=== PATIENT | female | born 1970 | race Caucasian/White ===

== ENCOUNTER → 2016-06-13 | Outpatient (CLI) | payer OTHER ==
[~2016-06-13] MED LIST: ABL10 PO; ARIP30TA3 PO; ATOR-14 PO; CGN1 PO; CHOL100010 PO; CLON0.5T3 PO; CLOZ100T18 PO; CLOZ25TA2 PO; DESM1TAB16 PO; DIPH25TA24 PO; DPRSCR15 TOP; ESCI1TAB10 PO; EST1 PO; GLC/500 PO; LAMO100T16 PO; LAMO200T38 PO; LEVO125T4 PO; LMC25 PO; LOSA50TA6 PO; LPT10 PO; LTD/40 PO; LURA80TA PO; LXP20 PO; MIRT30TA2 PO; MISCCAP80 PO; MONT1TAB3 PO; MULT-506 PO; PRM625 PO; RMR15 PO; SERT100T PO; SULF-183 PO; THIO5CAP2 PO; [UNRECOGNIZED DRUG - CODE] PO
[2016-06-13 14:40] LABS: COMPLETE YES; IG% 0.2 %; LYMPH % 22.5 %; LYMPH ABS # 2.38 K/uL (1.2-3.4); MEAN CELL VOLUME 78.1 fL (80-100); MEAN CORPUSCULAR HEMOGLOBIN 27.2 pg (25-34); MEAN CORPUSCULAR HGB CONC 34.9 g/dl (32-36); MEAN PLATELET VOLUME 9.3 fL (7.4-10.4); MONO % 6.1 %; NEUT % 71.2 %; PLATELET COUNT 260 K/uL (130-400); RED BLOOD COUNT 4.48 M/uL (4.2-5.4); WHITE BLOOD COUNT 10.58 K/uL (4.8-10.8)
[2016-06-13 17:51] LABS: TOTAL IRON BINDING CAPACITY 294 mcg/dl (250-450)
[2016-06-13 18:03] LABS: ALT/SGPT 20 U/L (12-78); AST/SGOT 9 U/L (15-37); BLOOD UREA NITROGEN 12 mg/dl (7-18); BUN/CREATININE RATIO 24.5 (10-20); CALCIUM 9.1 mg/dl (8.5-10.1); CARBON DIOXIDE 24 mmol/L (21-32); CHLORIDE 102 mmol/L (98-107); CREATININE 0.48 mg/dl (0.60-1.20); GLUCOSE 80 mg/dl (70-99); SODIUM 137 mmol/L (136-145)
[2016-06-13 18:05] LABS: ALB/GLOB RATIO 1.3 (0.9-2); ALKALINE PHOSPHATASE 67 U/L (45-117)
== END | disposition home or self-care (01) ==
LOC: C.LAB1850 13:37
PROVIDERS: ATTEND Nurse Practitioner Family
DX: D50.9 Iron deficiency anemia, unspecified (principal); R11.10 Vomiting, unspecified

== ENCOUNTER → 2016-07-26 | Outpatient (CLI) | payer OTHER ==
--- NOTE | 2016-07-26 13:51 | DIAGNOSTIC IMAGING REPORT ---
CHEST 2 VIEWS ROUTINE CLINICAL HISTORY: IRON DEFICIENCY ANEMIA dyspnea. Weight loss. COMPARISON STUDY: 01/11/2011 FINDINGS: The bones soft tissues and hemidiaphragms are normal. The cardiomediastinal silhouette is normal. The lungs are clear. The pulmonary vasculature is normal. IMPRESSION: Negative chest. Electronically signed by: Arturo Hart M.D. 07/26/2016 1:50 PM Dictated Date/Time: 07/26/2016 1:49 PM
== END | disposition home or self-care (01) ==
LOC: C.RAD1850 13:37
PROVIDERS: ATTEND Internal Medicine Hematology & Oncology
DX: D50.9 Iron deficiency anemia, unspecified (principal); R63.4 Abnormal weight loss

== ENCOUNTER → 2016-08-02 | Outpatient (CLI) | payer OTHER ==
[2016-08-02 16:55] LABS: ALT/SGPT 18 U/L (12-78); AST/SGOT 8 U/L (15-37); BLOOD UREA NITROGEN 13 mg/dl (7-18); BUN/CREATININE RATIO 21.5 (10-20); CALCIUM 8.8 mg/dl (8.5-10.1); CARBON DIOXIDE 28 mmol/L (21-32); CHLORIDE 99 mmol/L (98-107); CREATININE 0.61 mg/dl (0.60-1.20); GLUCOSE 113 mg/dl (70-99); MAGNESIUM 1.9 mg/dl (1.8-2.4); POTASSIUM 3.5 mmol/L (3.5-5.1); SODIUM 136 mmol/L (136-145)
[2016-08-02 17:07] LABS: ALB/GLOB RATIO 1.2 (0.9-2); ALKALINE PHOSPHATASE 74 U/L (45-117)
[2016-08-03 06:20] LABS: ESTIMATED AVERAGE GLUCOSE 100 mg/dl; HA1C FLAG Normal (Normal)
== END | disposition home or self-care (01) ==
LOC: C.LABBC 14:08
PROVIDERS: ATTEND Family Medicine
DX: R63.4 Abnormal weight loss (principal); R25.1 Tremor, unspecified; E11.9 Type 2 diabetes mellitus without complications

== ENCOUNTER → 2016-09-23 | Outpatient (CLI) | payer OTHER ==
[~2016-09-23] MED LIST changes: +BENZ-89 PO; -CGN1 PO; -LEVO125T4 PO; +LEVO125T5 PO
[2016-09-23 12:16] LABS: ESTIMATED AVERAGE GLUCOSE 105 mg/dl; HA1C FLAG Normal (Normal)
[2016-09-23 12:30] LABS: THYROID STIMULATING HORMONE 0.773 uIu/ml (0.300-4.500)
--- NOTE | 2016-10-07 12:28 | CODING QUERY MEDICAL NECESSITY ---
CQSUPPORTING DIAGNOSIS NEEDED A supporting diagnosis is required for the test/procedure performed on this patient in order for us to be reimbursed by the patient's insurance. Please provide a supporting diagnosis for the following test/procedure listed below next to the test name along with your signature. *If there is no additional diagnosis for this patient that would support the following test/procedure please document that below next to the test/procedure. Test(s)/Procedure(s) that require a supporting diagnosis: DOS 09/23/16 GLYCATED HEMOGLOBIN TEST ORDERED BY MINGO ROLAND Provider Signature: Date: Thank you Trisha Pradhan Health Information Management Once completed, please kindly fax back to [phone] For questions please call [phone]
== END | disposition home or self-care (01) ==
LOC: C.LAB1850 10:02
PROVIDERS: ATTEND Physician Assistant
DX: F25.1 Schizoaffective disorder, depressive type (principal); F41.9 Anxiety disorder, unspecified; E03.9 Hypothyroidism, unspecified; E11.9 Type 2 diabetes mellitus without complications

== ENCOUNTER 2016-10-07 16:06 | Inpatient (IN) | payer OTHER ==
[~2016-10-07] VITALS: Ht 162.6 cm; Wt 93.4 kg
[~2016-10-07 16:06] MED LIST changes: -ABL10 PO; -ARIP30TA3 PO; -ESCI1TAB10 PO; -EST1 PO; -LAMO100T16 PO; -LAMO200T38 PO; -LMC25 PO; -LPT10 PO; -LURA80TA PO; -LXP20 PO; -MIRT30TA2 PO; -MISCCAP80 PO; -RMR15 PO; -SULF-183 PO; -[UNRECOGNIZED DRUG - CODE] PO
[2016-10-07] MEDS ORDERED: LPT10 PO (16:36)
[2016-10-07] MEDS ORDERED: EST1 PO (16:36)
[2016-10-07] MEDS ORDERED: LMC25 PO (16:36)
[2016-10-07] MEDS ORDERED: MISCCAP80 PO (16:36)
[2016-10-07] MEDS ORDERED: [UNRECOGNIZED DRUG - CODE] PO (16:36)
[2016-10-07 17:42] LABS: COMPLETE YES; HEMATOCRIT 38.6 % (37-47); IG% 0.1 %; LYMPH % 29.7 %; LYMPH ABS # 3.42 K/uL (1.2-3.4); MEAN CELL VOLUME 79.1 fL (80-100); MEAN CORPUSCULAR HEMOGLOBIN 27.5 pg (25-34); MEAN CORPUSCULAR HGB CONC 34.7 g/dl (32-36); MEAN PLATELET VOLUME 8.7 fL (7.4-10.4); MONO % 5.9 %; NEUT % 64.3 %; PLATELET COUNT 246 K/uL (130-400); RED BLOOD COUNT 4.88 M/uL (4.2-5.4); WHITE BLOOD COUNT 11.52 K/uL (4.8-10.8)
[2016-10-07 18:04] LABS: ALT/SGPT 22 U/L (12-78); AST/SGOT 7 U/L (15-37); BLOOD UREA NITROGEN 16 mg/dl (7-18); BUN/CREATININE RATIO 33.7 (10-20); CALCIUM 9.2 mg/dl (8.5-10.1); CARBON DIOXIDE 27 mmol/L (21-32); CHLORIDE 99 mmol/L (98-107); CREATININE 0.47 mg/dl (0.60-1.20); GLUCOSE 95 mg/dl (70-99); POTASSIUM 4.1 mmol/L (3.5-5.1); SODIUM 133 mmol/L (136-145)
[2016-10-07 18:19] LABS: ALKALINE PHOSPHATASE 68 U/L (45-117)
[2016-10-07 18:21] LABS: URINE APPEARANCE CLEAR (CLEAR); URINE BILIRUBIN NEG (NEG); URINE COLOR YELLOW; URINE NITRITE NEG (NEG); URINE SPECIFIC GRAVITY 1.009 (1.000-1.030); UROBILINOGEN NEG (NEG)
[2016-10-07 18:22] LABS: MANUAL MICROSCOPIC REQUIRED? NO; REVIEW REQ? NO
[2016-10-07 18:37] LABS: BENZODIAZEPINE, URINE NEG (NEG); COCAINE,URINE NEG (NEG); PHENCYCLIDINE, URINE NEG (NEG)
[2016-10-07] MEDS ORDERED: SODIUM CHLORIDE 0.65% NA SOLN 45 ML (OCEAN) PRN (20:15)
[2016-10-07] MEDS ORDERED: BISMUTH SUBSALICYLATE PER ML OMNICELL CHARGE PO PRN (20:15)
[2016-10-07] MEDS ORDERED: NURSING VERBAL MED ORDER ONE ×2 (20:15→21:00)
[2016-10-07] MEDS ORDERED: MAGNESIUM HYDROXIDE SUSP 30 ML UDC PO PRN (20:15)
[2016-10-07] MEDS ORDERED: ALUMINUM/MAGNESIUM SUSP 30 ML UDC PO PRN (20:15)
[2016-10-07] MEDS ORDERED: ACETAMINOPHEN 325 MG TAB PO PRN (20:15)
[2016-10-07] MEDS ORDERED: hydrOXYzine HCL 25 MG TAB PO PRN ×2 (20:15)
[2016-10-07 20:40] VITALS: O2SAT 96
[2016-10-07 20:45] VITALS: BP 121/74; PULSE 82; TEMP 36.5; BMI 35.3
--- NOTE | 2016-10-07 22:00 | EMERGENCY ROOM VISIT NOTE ---
History Report prepared by Caty: Nikkie Jennings Under the Supervision of: Dr. Gerardo Jo D.O. First contact with patient: 16:15 Chief Complaint: MENTAL HEALTH EVALUATION Stated Complaint: [facility],HEARING VOICES,SUICIDAL,3S EXPECTING HER History of Present Illness The patient is a 45 year old female who presents to the Emergency Room with complaints of worsening suicidal thoughts starting last night. She has a history of mental health problems. She reports auditory hallucinations and anxiety. She has difficulty sleeping, which has improved since she started Lamictal. She is having increased stress in her life over the past week which is worsening her symptoms. She denies any homicidal ideation or intent to act on her suicidal ideation. Pt denies headache, change in vision, fevers, chest pain, shortness of breath, nausea, vomiting, diarrhea. She would like inpatient care. Source of History: patient Onset: last night Position: other (mental health) Quality: other (suicidal thoughts) Timing: worsening Associated Symptoms: No SOB, No chest pain, No diarrhea, No fevers, No headache, No nausea, No vomiting Note: Pt reports auditory hallucinations, anxiety, difficulty sleeping. Pt denies change in vision. Review of Systems See HPI for pertinent positives & negatives. A total of 10 systems reviewed and were otherwise negative. Past Medical & Surgical Medical Problems: (1) Diabetes mellitus type 2 (2) Schizoaffective disorder, depressive type Family History FH: cancer FH: heart disease Hypertension Kidney disease Kidney stones Seizures Social History Smoking Status: Never Smoker Alcohol Use: none Drug Use: none Marital Status: single Housing Status: lives alone Occupation Status: disabled Current/Historical Medications Scheduled Atorvastatin (Atorvastatin Calcium), 10 MG PO HS Cholecalciferol (Cvs D3), 5,000 INTER.UNIT PO DAILY Clonazepam (Klonopin), 0.5 MG PO TID Desmopressin Acetate (Ddavp), 0.2 MG PO HS Estradiol (Estradiol), 1 MG PO QAM Lamotrigine (Lamotrigine), 25 MG PO DIRECTED Levothyroxine Sodium (Levothyroxine Sodium), 125 MCG PO QAM Losartan Potassium (Cozaar), 50 MG PO QAM Lurasidone HCl (Latuda), 120 MG PO q1730 Metformin Hcl (Glucophage), 500 MG PO QAM Metformin Hcl (Glucophage), 1,000 MG PO QPM Montelukast Sodium (Singulair), 10 MG PO HS Multivitamin (Multivitamin), 1 TAB PO DAILY Probiotic Product (Probiotic), 1 CAP PO DAILY Sertraline Hcl (Zoloft), 300 MG PO QAM Thiothixene (Navane), 10 MG PO TID Scheduled PRN Clonazepam (Klonopin), 0.5 MG PO BID PRN for Anxiety Thiothixene (Navane), 10 MG PO DAILY PRN for Hallucinations Allergies Coded Allergies: Chlorpromazine (Verified Allergy, Mild, LIGHTHEADED SHUFFLING GAIT, 10/07/16 ) Aspirin (Verified Allergy, Unknown, 10/07/16) Doxycycline (Unverified Allergy, Unknown, HEARING VOICES, 10/07/16) Levofloxacin (Verified Allergy, Unknown, ?ALLERGIC TO LEVAQUIN?, 10/07/16) NSAIDs (Verified Allergy, Unknown, ., 10/07/16) Penicillins (Verified Allergy, Unknown, RASH, 10/07/16) Prednisone (Verified Allergy, Unknown, ., 10/07/16) Quinine (Verified Allergy, Unknown, 10/07/16) Physical Exam Vital Signs Date Time Temp Pulse Resp B/P Pulse Ox O2 Delivery O2 Flow Rate FiO2 10/07/16 19:06 63 18 125/69 96 Room Air 10/07/16 18:09 69 16 134/84 96 Room Air 10/07/16 16:08 36.5 77 18 94 Room Air Physical Exam GENERAL: sitting up in bed, disheveled, no acute distress, nontoxic EYE EXAM: normal conjunctiva OROPHARYNX: no exudate, no erythema, lips, buccal mucosa, and tongue normal and mucous membranes are moist NECK: supple, no nuchal rigidity, no adenopathy, non-tender LUNGS: Clear to auscultation. Normal chest wall mechanics HEART: no murmurs, S1 normal and S2 normal ABDOMEN: abdomen soft, non-tender, normo-active bowel sounds, no masses, no rebound or guarding. BACK: Back is symmetrical on inspection and there is no deformity, no midline tenderness, no CVA tenderness. SKIN: no rashes and no bruising UPPER EXTREMITIES: upper extremities are grossly normal. LOWER EXTREMITIES: No pitting edema. NEURO EXAM: Normal sensorium, cranial nerves II-XII grossly intact, normal speech. PSYCH: admits to SI and hallucinations. Medical Decision & Procedures Laboratory Results 10/07/16 17:32 Red Blood Count 4.88, Mean Corpuscular Volume 79.1, Mean Corpuscular Hemoglobin 27.5, Mean Corpuscular Hemoglobin Concent 34.7, Mean Platelet Volume 8.7, Neutrophils (%) (Auto) 64.3, Lymphocytes (%) (Auto) 29.7, Monocytes (%) (Auto) 5.9, Eosinophils (%) (Auto) 0.0, Basophils (%) (Auto) 0.0, Neutrophils # (Auto) 7.41, Lymphocytes # (Auto) 3.42, Monocytes # (Auto) 0.68, Eosinophils # (Auto) 0.00, Basophils # (Auto) 0.00 10/07/16 17:32 Test 10/07/16 17:32 10/07/16 17:55 White Blood Count 11.52 K/uL (4.8-10.8) Red Blood Count 4.88 M/uL (4.2-5.4) Hemoglobin 13.4 g/dL (12.0-16.0) Hematocrit 38.6 % (37-47) Mean Corpuscular Volume 79.1 fL (80-100) Mean Corpuscular Hemoglobin 27.5 pg (25-34) Mean Corpuscular Hemoglobin Concent 34.7 g/dl (32-36) Platelet Count 246 K/uL (130-400) Mean Platelet Volume 8.7 fL (7.4-10.4) Neutrophils (%) (Auto) 64.3 % Lymphocytes (%) (Auto) 29.7 % Monocytes (%) (Auto) 5.9 % Eosinophils (%) (Auto) 0.0 % Basophils (%) (Auto) 0.0 % Neutrophils # (Auto) 7.41 K/uL (1.4-6.5) Lymphocytes # (Auto) 3.42 K/uL (1.2-3.4) Monocytes # (Auto) 0.68 K/uL (0.11-0.59) Eosinophils # (Auto) 0.00 K/uL (0-0.5) Basophils # (Auto) 0.00 K/uL (0-0.2) RDW Standard Deviation 38.5 fL (36.4-46.3) RDW Coefficient of Variation 13.5 % (11.5-14.5) Immature Granulocyte % (Auto) 0.1 % Immature Granulocyte # (Auto) 0.01 K/uL (0.00-0.02) Anion Gap 7.0 mmol/L (3-11) Estimated GFR () 136.3 Estimated GFR (Non- 117.6 BUN/Creatinine Ratio 33.7 (10-20) Calcium Level 9.2 mg/dl (8.5-10.1) Total Bilirubin 0.4 mg/dl (0.2-1) Direct Bilirubin 0.1 mg/dl (0-0.2) Aspartate Amino Transf (AST/SGOT) 7 U/L (15-37) Alanine Aminotransferase (ALT/SGPT) 22 U/L (12-78) Alkaline Phosphatase 68 U/L (45-117) Total Protein 7.5 gm/dl (6.4-8.2) Albumin 4.3 gm/dl (3.4-5.0) Thyroid Stimulating Hormone (TSH) 1.240 uIu/ml (0.300-4.500) Ethyl Alcohol mg/dL < 3.0 mg/dl (0-3) Urine Color YELLOW Urine Appearance CLEAR (CLEAR) Urine pH 5.0 (4.5-7.5) Urine Specific [place] 1.009 (1.000-1.030) Urine Protein NEG (NEG) Urine Glucose (UA) NEG (NEG) Urine Ketones NEG (NEG) Urine Occult Blood NEG (NEG) Urine Nitrite NEG (NEG) Urine Bilirubin NEG (NEG) Urine Urobilinogen NEG (NEG) Urine Leukocyte Esterase SMALL (NEG) Urine WBC (Auto) 5-10 /hpf (0-5) Urine RBC (Auto) 0-4 /hpf (0-4) Urine Hyaline Casts (Auto) 1-5 /lpf (0-5) Urine Epithelial Cells (Auto) 10-20 /lpf (0-5) Urine Bacteria (Auto) 2+ (NEG) Urine Opiates Screen NEG (NEG) Urine Methadone, Qualitative NEG (NEG) Urine Barbiturates NEG (NEG) Urine Phencyclidine (PCP) Level NEG (NEG) Ur Amphetamine/Methamphetamine NEG (NEG) MDMA (Ecstasy) Screen NEG (NEG) Urine Benzodiazepines Screen NEG (NEG) Urine Cocaine Metabolite NEG (NEG) Urine Marijuana (THC) NEG (NEG) Laboratory results per my review. ED Course ED COURSE: Vital signs were reviewed and showed normal vitals. The patients medical record was reviewed The above diagnostic studies were performed and reviewed. ED treatments and interventions as stated above. 1637: The patient was evaluated in room A6. A complete history and physical examination was performed. 1930: Upon reevaluation, the patient is resting comfortably.I discussed my findings with the patient and she understands and agrees with the treatment plan. Based on the patients age, coexisting illnesses, exam and lab findings the decision to treat as an inpatient was made. The patient remained stable while under my care. The patient has been accepted to [address] [place] [address]. Medical Decision Differential diagnoses includes but is not limited to mood disorder, infection, hypoglycemia, electrolyte abnormalities, cardiac sources, intracerebral event, toxicologic, neurologic Patient is a 45-year-old female who presents the ER for suicidal ideations with hallucinations. CBC along with BMP, LFTs and bilirubin were unremarkable. Tox was negative. UA was contaminated with multiple epithelial cells. Will not treat at this time. She has no urinary symptoms. Patient was updated at bedside and evaluated by psychiatry. She was admitted on 201 with suicidal ideations and hallucinations. Impression Primary Impression: Mood disorder Additional Impression: Suicidal ideation Scribe Attestation The scribe's documentation has been prepared under my direction and personally reviewed by me in its entirety. I confirm that the note above accurately reflects all work, treatment, procedures, and medical decision making performed by me. Departure Information Dispostion Mental Health Acute Care Referrals Carlos Rodgers D.O.Int.Med. (PCP) Patient Instructions My [facility] Problem Qualifiers
[2016-10-07] MEDS: CLONAZEPAM 0.5 MG TAB PO SCH (22:07)
[2016-10-07] MEDS: METFORMIN HCL 500 MG TAB PO SCH (22:08)
[2016-10-07] MEDS: DESMOPRESSIN ACETATE 0.1 MG TAB PO SCH (22:08)
[2016-10-07] MEDS: ATORVASTATIN 10 MG TAB PO SCH (22:08)
[2016-10-07] MEDS: THIOTHIXENE 1 MG CAP PO SCH (22:10)
[2016-10-08 06:58] VITALS: BP_SYST 125; BP_SYST 126; BP_DIAS 80; BP_DIAS 82; PULSE 65; PULSE 78; TEMP 36.6
[2016-10-08] MEDS: LEVOTHYROXINE 125 MCG TAB PO SCH (08:43)
[2016-10-08] MEDS: LACTOBACILLUS ACIDOPHILUS (FLORANEX) TAB PO SCH (08:44)
[2016-10-08] MEDS: LOSARTAN POTASSIUM 50 MG TAB PO SCH (08:44)
[2016-10-08] MEDS: ESTRADIOL 1 MG TAB PO SCH (08:44)
[2016-10-08] MEDS: CLONAZEPAM 0.5 MG TAB PO SCH ×3 (08:45→21:25)
[2016-10-08] MEDS: METFORMIN HCL 500 MG TAB PO SCH ×2 (08:45→17:22)
[2016-10-08] MEDS: THIOTHIXENE 1 MG CAP PO SCH ×3 (08:46→21:25)
[2016-10-08] MEDS: MULTIVITAMIN TAB PO SCH (08:46)
[2016-10-08] MEDS: CHOLECALCIFEROL 1000 INTER.UNIT TAB PO SCH (08:46)
[2016-10-08] MEDS: SERTRALINE HCL 100 MG TAB PO SCH (08:47)
[2016-10-08] MEDS ORDERED: LURA80TA PO (09:38)
[2016-10-08] MEDS ORDERED: CLON0.5T3 PO (09:39)
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
[2016-10-08] MEDS: MONTELUKAST SOD 10 MG TAB PO SCH (17:22)
[2016-10-08] MEDS ORDERED: LURASIDONE HCL 40 MG TAB PO SCH (17:30)
[2016-10-08] MEDS ORDERED: LURASIDONE HCL 40 MG TAB PO ONE ×3 (19:47→22:00)
[2016-10-08] MEDS: DESMOPRESSIN ACETATE 0.1 MG TAB PO SCH (21:21)
[2016-10-08] MEDS: ATORVASTATIN 10 MG TAB PO SCH (21:25)
[2016-10-09 07:04] VITALS: BP_SYST 121; BP_SYST 129; BP_DIAS 79; BP_DIAS 85; PULSE 61; PULSE 74; TEMP 36.9
[2016-10-09] MEDS: LEVOTHYROXINE 125 MCG TAB PO SCH (08:07)
[2016-10-09] MEDS: ESTRADIOL 1 MG TAB PO SCH (09:10)
[2016-10-09] MEDS: CLONAZEPAM 0.5 MG TAB PO SCH ×3 (09:10→21:13)
[2016-10-09] MEDS: METFORMIN HCL 500 MG TAB PO SCH ×2 (09:10→17:28)
[2016-10-09] MEDS: LACTOBACILLUS ACIDOPHILUS (FLORANEX) TAB PO SCH (09:10)
[2016-10-09] MEDS: LOSARTAN POTASSIUM 50 MG TAB PO SCH (09:10)
[2016-10-09] MEDS: MULTIVITAMIN TAB PO SCH (09:11)
[2016-10-09] MEDS: THIOTHIXENE 1 MG CAP PO SCH ×3 (09:12→21:14)
[2016-10-09] MEDS: CHOLECALCIFEROL 1000 INTER.UNIT TAB PO SCH (09:12)
[2016-10-09] MEDS: SERTRALINE HCL 100 MG TAB PO SCH (09:13)
--- NOTE | 2016-10-09 11:13 | Psychiatric Progress Notes ---
Progress Note Date of Service October 09, 2016. Interval History 45 yo woman with schizoaffective disorder, admitted voluntarily on 10/08/16 with a progressive deterioration since mother in June. She is experiencing auditory hallucinations telling her to kill herself. Chief Complaint "I'm still anxious.". Subjective Patient was seen & assessed interval progress reviewed with Treatment Team. The patient is adjusting to the unit, has been attending groups. Her goal today is to walk a bit for exercise. She continues to report auditory hallucinations of her grandfather's voice telling her to kill herself, but knows that its not real. She says that her anxiety is the biggest problem, worrying about everything including whether she caused me to sneeze during the interview. She slept well without waking with anxiety, but says that her thoughts are racing, hand tremulous. She spoke with her father by phone last night and was glad to hear that he is doing well at home. She is saying that the anniversaries accentuating her mother's are hard and Mother's Day is this Friday, November 19 is her mother's birthday. She is tearful talking about it. She denies acute SI, but says that she is no better since admission. She denies visual hallucinations. Review of Systems Constitutional: + fatigue, + sweats ENT: No dental problems, No hearing loss, No nasal symptoms, No problem reported, No sore throat, No tinnitus, No trouble swallowing, No unusual epistaxis Respiratory: No cough, No dyspnea at rest, No dyspnea on exertion, No hemoptysis, No problem reported, No shortness of breath, No sputum, No wheezing Cardiovascular: No PND, No chest pain, No claudication, No edema, No orthopnea , No palpitations, No problem reported Abdomen: No GI bleeding, No constipation, No diarrhea, No nausea, No pain, No problem reported, No vomiting Musculoskeletal: No calf pain, No joint pain, No muscle pain, No problem reported, No swelling Neurologic: No balance problems, No memory loss, No numbness/tingling, No paralysis, No problem reported, No vertigo, No weakness Psychiatric: + anxiety, + depression symptoms Integumentary: No bleeding, No color change, No itch, No new/changing skin lesions, No problem reported, No rash Sleep Information Total Hours of Sleep: 7.50 Meal Information Percent of Breakfast Consumed: 100 Percent of Lunch Consumed: 90 Percent of Dinner Consumed: 100 Mental Status Exam During interview pt is: alert and oriented Appearance: appropriately dressed, appropriately groomed Eye contact is: good Motor behavior is: tremor Speech: normal in rate, rhythm & volume Affect: depressed, tearful, anxious Mood is: depressed, anxious Thought process: goal directed Thought content: reality based without delusions (is aware the voices aren't real) Suicidal thought are: present, Plan: denied, Intent: denied Homicidal thoughts are: denied Hallucinations: auditory (of grandfather's voice telling her to kill herself), denies visual Cognition: memory grossly intact, attention grossly intact, language grossly intact Intelligence estimated to be: average Insight: impaired Judgement: impaired Impression Adjusting to the unit, remains depressed, anxious, with hallucinations. The patient has been on high dose Zoloft for many years, and at this point is not effective. We are adding Lamictal which will have some antidepressant effect as well as mood stabilization. At this point we will start by reducing Zoloft to 200 mg. daily while we consider whether to switch this out for a different antidepressant, or allow the lamictal to take its place. She remembers only one other antidepressant trial which was Effexor. In view of the upcoming Mother's Day holiday, it may benefit the patient to remain inpatient until this trigger point has passed. Plan (1) Schizoaffective disorder, depressive type 10/08 -Continue all of her outpatient medications with the exception of Lamictal which we will increase to 50 mg daily -Coordinate with all of her outpatient providers -Encourage participation in group and individual counseling -Every 15 minute checks for safety -Family meeting. 2 brothers work in the mental health field, 1 as a psychiatric nurse practitioner and may want to be involved in a phone conference -Encourage the patient to be out of her room engaging with peers -Reality orientation -Monitoring labs on atypicals last performed on 02/01/16 and were within normal limits 10/09 - Decrease Zoloft to 200 mg. daily as currently ineffective and we are augmenting with lamictal - Continue other meds. (2) Class II obesity 10/08 -Encourage the patient to use the exercise bicycle -Consider dietary consult (3) Dyslipidemia 10/08 -Continue outpatient dosing of a atorvastatin (4) Type 2 diabetes mellitus 10/08 -Continue home dosing of metformin -BS cheese once daily in the a.m. -Encourage the patient to make good food choices and use the exercise bicycle regularly (5) Hypertension 10/08 -Continue outpatient antihypertensives -Monitor blood pressure (6) Hypothyroidism 10/08 -TSH within normal limits -Continue home dosing of levothyroxine Has been reviewed with Dr. Archana Urbina Discharge / Aftercare Planning Primary Care Physician: Name: Psychiatrist: Name: Kassandra VALERIO Date of Appointment: October 23, 2016 Time of Appointment: 3:20pm Therapist: Name: Harini Miller at [facility] Date of Appointment: Oct 31, 2016 Weblogic Developer: Name: Ramiro Beckailyn with [employer] Visit Code E&M Code: 22940 Inventory Assets Strengths: Good rapport with all of her outpatient providers, willingness to engage in treatment Risk Factors Assessment : Yes /single/: Yes Higher / Fall in social status: No Mental Health Diagnoses: Yes Previous attempt: Yes Previous psychiatric stay: Yes Hopelessness: No Smoker: No Protective Factors Assessment Episcopal beliefs: Yes : No Responsible for young children: No Employed: Yes Stable relationships: Yes Supportive family: Yes Good rapport with provider: Yes Data Vital Signs Last 24 Hrs: Date Time Temp Pulse Resp B/P Pulse Ox O2 Delivery O2 Flow Rate FiO2 10/09/16 07:04 36.9 61 16 121/79 74 129/85 Meds Administered Last 24 Hrs: Meds Administered (Past 24Hrs) Medications (Trade) Dose Ordered Sig/Christofer Route Start Time Stop Time Status Last Admin Dose Admin Atorvastatin Calcium (Lipitor Tab) 10 mg HS PO 10/07/16 22:00 11/06/16 21:59 10/08/16 21:25 10 MG Clonazepam (Klonopin Tab) 0.5 mg TID PO 10/07/16 22:00 11/06/16 21:59 10/09/16 09:10 0.5 MG Cholecalciferol (Vitamin D Tab) 5,000 inter.unit DAILY PO 10/08/16 09:00 11/07/16 08:59 10/09/16 09:12 5,000 INTER.UNIT Desmopressin Acetate (Desmopressin Acetate) 0.2 mg HS PO 10/07/16 22:00 11/06/16 21:59 10/08/16 21:21 0.2 MG Estradiol (Estrace Tab) 1 mg QAM PO 10/08/16 09:00 11/07/16 08:59 10/09/16 09:10 1 MG Lamotrigine (Lamictal Tab) 25 mg QAM PO 10/08/16 09:00 10/08/16 19:47 DC 10/08/16 08:45 25 MG Levothyroxine Sodium (Synthroid Tab) 125 mcg DAILYBB PO 10/08/16 08:00 11/07/16 07:59 10/09/16 08:07 125 MCG Losartan Potassium (coZAAR TAB) 50 mg QAM PO 10/08/16 09:00 11/07/16 08:59 10/09/16 09:10 50 MG Lurasidone HCl (Latuda Tab) 120 mg DAILY@1730 PO 10/08/16 17:30 10/08/16 19:49 DC 10/08/16 17:22 120 MG Metformin HCl (Glucophage Tab) 500 mg QAM PO 10/08/16 09:00 11/07/16 08:59 10/09/16 09:10 500 MG Metformin HCl (Glucophage Tab) 1,000 mg QDD PO 10/07/16 22:00 11/06/16 21:59 10/08/16 17:22 1,000 MG Montelukast Sodium (Singulair Tab) 10 mg PM PO 10/08/16 17:00 11/07/16 16:59 10/08/16 17:22 10 MG Multivitamins (Multivitamin Tab) 1 tab QAM PO 10/08/16 09:00 11/07/16 08:59 10/09/16 09:11 1 TAB Lactobacillus Acidophilus (Floranex Tab) 1 tab DAILY PO 10/08/16 09:00 11/07/16 08:59 10/09/16 09:10 1 TAB Sertraline HCl (Zoloft Tab) 300 mg DAILY PO 10/08/16 09:00 11/07/16 08:59 10/09/16 09:13 300 MG Thiothixene (Navane Cap) 10 mg TID PO 10/07/16 22:00 11/06/16 21:59 10/09/16 09:12 10 MG Lamotrigine (Lamictal Tab) 50 mg QAM PO 10/09/16 09:00 11/08/16 08:59 10/09/16 09:11 50 MG Lurasidone HCl (Latuda Tab) 40 mg NOW ONCE PO 10/08/16 22:00 10/08/16 22:05 DC 10/08/16 22:09 40 MG Lab Results Last 24 Hrs: Last 24 Hours Test 10/08/16 12:07 10/09/16 07:44 Bedside Glucose 95 mg/dl 89 mg/dl Problem Qualifiers (1) Type 2 diabetes mellitus: Diabetes mellitus complication status: without complication Diabetes mellitus termite exterminator insulin use: without senior care use Qualified Codes: E11.9 - Type 2 diabetes mellitus without complications (2) Hypertension: Hypertension type: essential hypertension Qualified Codes: I10 - Essential ( primary) hypertension
[2016-10-09] MEDS ORDERED: LURASIDONE HCL 40 MG TAB PO SCH (17:00)
[2016-10-09] MEDS: LURASIDONE HCL 40 MG TAB PO SCH (17:28)
[2016-10-09] MEDS: MONTELUKAST SOD 10 MG TAB PO SCH (17:28)
[2016-10-09] MEDS: ATORVASTATIN 10 MG TAB PO SCH (21:13)
[2016-10-09] MEDS: DESMOPRESSIN ACETATE 0.1 MG TAB PO SCH (21:13)
[2016-10-10] MEDS: THIOTHIXENE 1 MG CAP PO PRN (03:07)
[2016-10-10 07:01] VITALS: BP_SYST 121; BP_SYST 132; BP_DIAS 74; BP_DIAS 82; PULSE 61; PULSE 71; TEMP 36.9
[2016-10-10] MEDS: LEVOTHYROXINE 125 MCG TAB PO SCH (07:27)
[2016-10-10] MEDS: LACTOBACILLUS ACIDOPHILUS (FLORANEX) TAB PO SCH (08:36)
[2016-10-10] MEDS: METFORMIN HCL 500 MG TAB PO SCH ×2 (08:36→17:12)
[2016-10-10] MEDS: LOSARTAN POTASSIUM 50 MG TAB PO SCH (08:36)
[2016-10-10] MEDS: ESTRADIOL 1 MG TAB PO SCH (08:36)
[2016-10-10] MEDS: CLONAZEPAM 0.5 MG TAB PO SCH ×3 (08:37→21:20)
[2016-10-10] MEDS: THIOTHIXENE 1 MG CAP PO SCH ×3 (08:38→21:21)
[2016-10-10] MEDS: MULTIVITAMIN TAB PO SCH (08:38)
[2016-10-10] MEDS: CHOLECALCIFEROL 1000 INTER.UNIT TAB PO SCH (08:39)
[2016-10-10] MEDS: SERTRALINE HCL 100 MG TAB PO SCH (08:39)
--- NOTE | 2016-10-10 11:13 | Psychiatric Progress Notes ---
Progress Note Date of Service October 10, 2016. Interval History 45 yo woman with schizoaffective disorder, admitted voluntarily on 10/08/16 with a progressive deterioration since mother in June. She is experiencing auditory hallucinations telling her to kill herself. Chief Complaint "It's the anxiety". Subjective Patient was seen & assessed interval progress reviewed with nursing. Staff report she had a difficult night, was hearing voices, and got Navane which was helpful. She states her anxiety continues to be exacerbated, worse at night, and is trying to use her coping skills. She has not had to use the prn clonazepam here. Auditory hallucinations continue and cause distress. They are worse when she feels stressed, thinks they are worse in the hospital because she is not in her normal setting and is around people she doesn't know. She hears her grandfather's voice telling her to hurt herself and that she's hopeless. She has urges to scratch herself when she hears the voices, but feels able to go to staff and feels safe here. She reports sweating which she thinks is a side effect to sertraline. She is limiting her coffee to one cup a day here to try to minimize anxiety. Sleep Information Total Hours of Sleep: 8.75 Meal Information Percent of Breakfast Consumed: 95 Percent of Lunch Consumed: 80 Percent of Dinner Consumed: 95 Mental Status Exam During interview pt is: alert and oriented, cooperative Appearance: appropriately dressed, appropriately groomed Eye contact is: good Motor behavior is: tremor Speech: normal in rate, rhythm & volume Affect: anxious, constricted Mood is: anxious Thought process: goal directed Thought content: reality based without delusions (is aware the voices aren't real) Suicidal thought are: present, Plan: present (to scratch herself), Intent: denied Homicidal thoughts are: denied Hallucinations: auditory (of grandfather's voice telling her to kill herself), denies visual Cognition: memory grossly intact, attention grossly intact, language grossly intact Intelligence estimated to be: average Insight: impaired Judgement: impaired Impression Adjusting to the unit, remains depressed, anxious, with hallucinations. The patient has been on high dose Zoloft for many years, and have started to taper off it as at this point, it is not effective. Have started Lamictal which will have some antidepressant effect as well as mood stabilization. She remembers only one other antidepressant trial which was Effexor. In view of the upcoming Mother's Day holiday, it may benefit the patient to remain inpatient until this trigger point has passed. Plan (1) Schizoaffective disorder, depressive type 10/08 -Continue all of her outpatient medications (sertraline, lurasidone, clonazepam, and thiothixene) with the exception of Lamictal which we will increase to 50 mg daily -Coordinate with all of her outpatient providers -Encourage participation in group and individual counseling -Every 15 minute checks for safety -Family meeting. 2 brothers work in the mental health field, 1 as a psychiatric nurse practitioner and may want to be involved in a phone conference -Encourage the patient to be out of her room engaging with peers -Reality orientation -Monitoring labs on atypicals last performed on 02/01/16 and were within normal limits 10/09 - Decrease Zoloft to 200 mg. daily as currently ineffective and we are augmenting with lamictal - Continue other meds. 10/10 - Continue current meds - can taper off sertraline while titrating up on lamotrigine. (2) Class II obesity 10/08 -Encourage the patient to use the exercise bicycle -Consider dietary consult (3) Dyslipidemia 10/08 -Continue outpatient dosing of a atorvastatin (4) Type 2 diabetes mellitus 10/08 -Continue home dosing of metformin -BS cheese once daily in the a.m. -Encourage the patient to make good food choices and use the exercise bicycle regularly (5) Hypertension 10/08 -Continue outpatient antihypertensives -Monitor blood pressure (6) Hypothyroidism 10/08 -TSH within normal limits -Continue home dosing of levothyroxine Has been reviewed with Dr. Archana Urbina Discharge / Aftercare Planning Primary Care Physician: Name: Phone Number: [phone] Psychiatrist: Name: Kassandra VALERIO Date of Appointment: October 23, 2016 Time of Appointment: 3:20pm Therapist: Name: Harini zhang [facility] Date of Appointment: October 17, 2016 Time of Appointment: 11:00am Amusement Ride Operator: Name: Ramiro Santo with [facility] Psych Rehab: Name: JORGE A Psych Rehab Visit Code E&M Code: 45764 Inventory Assets Strengths: Good rapport with all of her outpatient providers, willingness to engage in treatment Risk Factors Assessment : Yes /single/: Yes Higher / Fall in social status: No Mental Health Diagnoses: Yes Previous attempt: Yes Previous psychiatric stay: Yes Hopelessness: No Smoker: No Protective Factors Assessment Moravian beliefs: Yes : No Responsible for young children: No Employed: Yes Stable relationships: Yes Supportive family: Yes Good rapport with provider: Yes Data Vital Signs Last 24 Hrs: Date Time Temp Pulse Resp B/P Pulse Ox O2 Delivery O2 Flow Rate FiO2 10/10/16 07:01 36.9 61 16 121/74 71 132/82 Meds Administered Last 24 Hrs: Meds Administered (Past 24Hrs) Medications (Trade) Dose Ordered Sig/Christofer Route Start Time Stop Time Status Last Admin Dose Admin Lurasidone HCl (Latuda Tab) 120 mg DAILY@1730 PO 10/08/16 17:30 10/08/16 19:49 DC 10/08/16 17:22 120 MG Montelukast Sodium (Singulair Tab) 10 mg PM PO 10/08/16 17:00 11/07/16 16:59 10/09/16 17:28 10 MG Lamotrigine (Lamictal Tab) 50 mg QAM PO 10/09/16 09:00 11/08/16 08:59 10/10/16 08:38 50 MG Lurasidone HCl (Latuda Tab) 160 mg DAILY@1700 PO 10/09/16 17:00 11/08/16 16:59 10/09/16 17:28 160 MG Lurasidone HCl (Latuda Tab) 40 mg NOW ONCE PO 10/08/16 22:00 10/08/16 22:05 DC 10/08/16 22:09 40 MG Sertraline HCl (Zoloft Tab) 200 mg QAM PO 10/10/16 09:00 11/09/16 08:59 10/10/16 08:39 200 MG Lab Results Last 24 Hrs: Last 24 Hours Test 10/10/16 07:33 Bedside Glucose 92 mg/dl Problem Qualifiers (1) Type 2 diabetes mellitus: Diabetes mellitus complication status: without complication Diabetes mellitus fpc insulin use: without terminal superintendent use Qualified Codes: E11.9 - Type 2 diabetes mellitus without complications (2) Hypertension: Hypertension type: essential hypertension Qualified Codes: I10 - Essential ( primary) hypertension
[2016-10-10] MEDS: MONTELUKAST SOD 10 MG TAB PO SCH (17:12)
[2016-10-10] MEDS: LURASIDONE HCL 40 MG TAB PO SCH (17:12)
[2016-10-10] MEDS: ATORVASTATIN 10 MG TAB PO SCH (21:20)
[2016-10-10] MEDS: DESMOPRESSIN ACETATE 0.1 MG TAB PO SCH (21:20)
[2016-10-11] MEDS: THIOTHIXENE 1 MG CAP PO PRN (03:31)
[2016-10-11 07:06] VITALS: BP 124/80; PULSE 63; PULSE 76; TEMP 36.8
[2016-10-11] MEDS: LEVOTHYROXINE 125 MCG TAB PO SCH (08:32)
[2016-10-11] MEDS: CLONAZEPAM 0.5 MG TAB PO SCH ×3 (08:33→21:50)
[2016-10-11] MEDS: MULTIVITAMIN TAB PO SCH (08:33)
[2016-10-11] MEDS: ESTRADIOL 1 MG TAB PO SCH (08:33)
[2016-10-11] MEDS: LACTOBACILLUS ACIDOPHILUS (FLORANEX) TAB PO SCH (08:33)
[2016-10-11] MEDS: METFORMIN HCL 500 MG TAB PO SCH ×2 (08:33→17:43)
[2016-10-11] MEDS: LOSARTAN POTASSIUM 50 MG TAB PO SCH (08:33)
[2016-10-11] MEDS: CHOLECALCIFEROL 1000 INTER.UNIT TAB PO SCH (08:34)
[2016-10-11] MEDS: SERTRALINE HCL 100 MG TAB PO SCH (08:35)
[2016-10-11] MEDS: THIOTHIXENE 5 MG CAP PO SCH ×3 (09:29→21:51)
--- NOTE | 2016-10-11 10:49 | Psychiatric Progress Notes ---
Progress Note Date of Service October 11, 2016. Interval History 45 yo woman with schizoaffective disorder, admitted voluntarily on 10/08/16 with a progressive deterioration since mother in June. She is experiencing auditory hallucinations telling her to kill herself. Chief Complaint "Anxious.". Subjective Patient was seen & assessed interval progress reviewed with Treatment Team. She reports ongoing anxiety related to mother's and upcoming Mother's Day. She is also worried about her father's medical conditions. Today she is thinking about the [place] holidays, worrying that her father will be unable to put a tree, making the holiday even more sad. He continues to hear her grandfather's voice telling her to hurt herself, which she has not acted on. The voices woke her up last night, she took a prn of navane which was helpful and she returned to bed. She denies her own thoughts to hurt herself. She rates her anxiety 8/10 with 10 being the highest. She is arranging to have visitors come on Mother's Day to help distract her during the difficult day. Staff reports that she remains tearful at times. She is attending all groups. Appetite is good, denies side effects to meds. Review of Systems Constitutional: No chills, No fatigue, No fever, No problem reported, No sweats , No weakness, No weight loss ENT: No dental problems, No hearing loss, No nasal symptoms, No problem reported, No sore throat, No tinnitus, No trouble swallowing, No unusual epistaxis Respiratory: No cough, No dyspnea at rest, No dyspnea on exertion, No hemoptysis, No problem reported, No shortness of breath, No sputum, No wheezing Cardiovascular: No PND, No chest pain, No claudication, No edema, No orthopnea , No palpitations, No problem reported Abdomen: No GI bleeding, No constipation, No diarrhea, No nausea, No pain, No problem reported, No vomiting Musculoskeletal: + problem reported (walks with a cane for stability) Neurologic: No balance problems, No memory loss, No numbness/tingling, No paralysis, No problem reported, No vertigo, No weakness Psychiatric: + anxiety Sleep Information Total Hours of Sleep: 8.25 Meal Information Percent of Breakfast Consumed: 100 Percent of Lunch Consumed: 90 Percent of Dinner Consumed: 100 Mental Status Exam During interview pt is: alert and oriented, cooperative Appearance: appropriately dressed, appropriately groomed Eye contact is: good Motor behavior is: tremor (Parkinson like) Speech: normal in rate, rhythm & volume Affect: depressed, anxious, constricted Mood is: depressed, anxious Thought process: goal directed Thought content: reality based without delusions (is aware the voices aren't real) Suicidal thought are: present, Plan: present (to scratch herself), Intent: denied Homicidal thoughts are: denied Hallucinations: auditory (of grandfather's voice telling her to kill herself), denies visual Cognition: memory grossly intact, attention grossly intact, language grossly intact Intelligence estimated to be: average Insight: impaired Judgement: impaired Impression Remains depressed and anxious. Tolerating lamictal titration, no evidence of SJS. Zoloft has been backed off to 200 mg. daily. Will continue our current plan. Plan (1) Schizoaffective disorder, depressive type 10/08 -Continue all of her outpatient medications (sertraline, lurasidone, clonazepam, and thiothixene) with the exception of Lamictal which we will increase to 50 mg daily -Coordinate with all of her outpatient providers -Encourage participation in group and individual counseling -Every 15 minute checks for safety -Family meeting. 2 brothers work in the mental health field, 1 as a psychiatric nurse practitioner and may want to be involved in a phone conference -Encourage the patient to be out of her room engaging with peers -Reality orientation -Monitoring labs on atypicals last performed on 02/01/16 and were within normal limits 10/09 - Decrease Zoloft to 200 mg. daily as currently ineffective and we are augmenting with lamictal - Continue other meds. 10/10 - Continue current meds - can taper off sertraline while titrating up on lamotrigine. 10/11 - Continue current plan (2) Class II obesity 10/08 -Encourage the patient to use the exercise bicycle -Consider dietary consult (3) Dyslipidemia 10/08 -Continue outpatient dosing of a atorvastatin (4) Type 2 diabetes mellitus 10/08 -Continue home dosing of metformin -BS cheese once daily in the a.m. -Encourage the patient to make good food choices and use the exercise bicycle regularly (5) Hypertension 10/08 -Continue outpatient antihypertensives -Monitor blood pressure (6) Hypothyroidism 10/08 -TSH within normal limits -Continue home dosing of levothyroxine Has been reviewed with Dr. Archana Urbina Discharge / Aftercare Planning Primary Care Physician: Name: Phone Number: [phone] Psychiatrist: Name: Kassandra VALERIO Date of Appointment: October 23, 2016 Time of Appointment: 3:20pm Therapist: Name: Harini Miller at [facility] Date of Appointment: October 17, 2016 Time of Appointment: 11:00am Assistant Scientist: Name: Ramiro Santo with [facility] Psych Rehab: Name: JORGE A Psych Rehab Visit Code E&M Code: 07477 Inventory Assets Strengths: Good rapport with all of her outpatient providers, willingness to engage in treatment Risk Factors Assessment : Yes /single/: Yes Higher / Fall in social status: No Mental Health Diagnoses: Yes Previous attempt: Yes Previous psychiatric stay: Yes Hopelessness: No Smoker: No Protective Factors Assessment Uatsdin beliefs: Yes : No Responsible for young children: No Employed: Yes Stable relationships: Yes Supportive family: Yes Good rapport with provider: Yes Data Vital Signs Last 24 Hrs: Date Time Temp Pulse Resp B/P Pulse Ox O2 Delivery O2 Flow Rate FiO2 10/11/16 07:06 36.8 63 18 124/80 76 Meds Administered Last 24 Hrs: Meds Administered (Past 24Hrs) Medications (Trade) Dose Ordered Sig/Christofer Route Start Time Stop Time Status Last Admin Dose Admin Lurasidone HCl (Latuda Tab) 160 mg DAILY@1700 PO 10/09/16 17:00 11/08/16 16:59 10/10/16 17:12 160 MG Sertraline HCl (Zoloft Tab) 200 mg QAM PO 10/10/16 09:00 11/09/16 08:59 10/11/16 08:35 200 MG Thiothixene (Navane Cap) 10 mg TID PO 10/11/16 09:00 11/06/16 21:59 10/11/16 09:29 10 MG Lab Results Last 24 Hrs: Last 24 Hours Test 10/11/16 07:47 Bedside Glucose 95 mg/dl Problem Qualifiers (1) Type 2 diabetes mellitus: Diabetes mellitus complication status: without complication Diabetes mellitus computer terminal operator insulin use: without computer terminal operator use Qualified Codes: E11.9 - Type 2 diabetes mellitus without complications (2) Hypertension: Hypertension type: essential hypertension Qualified Codes: I10 - Essential ( primary) hypertension
[2016-10-11] MEDS: CLONAZEPAM 0.5 MG TAB PO PRN ×2 (11:22→17:42)
[2016-10-11] MEDS: MONTELUKAST SOD 10 MG TAB PO SCH (17:00)
[2016-10-11] MEDS: LURASIDONE HCL 40 MG TAB PO SCH (17:00)
[2016-10-11] MEDS: DESMOPRESSIN ACETATE 0.1 MG TAB PO SCH (21:50)
[2016-10-11] MEDS: ATORVASTATIN 10 MG TAB PO SCH (21:51)
[2016-10-12 06:25] VITALS: Ht 162.6 cm; Wt 93.4 kg
[2016-10-12 06:43] VITALS: BP_SYST 127; BP_SYST 140; BP_DIAS 84; BP_DIAS 90; PULSE 57; PULSE 61; TEMP 36.9
[2016-10-12] MEDS: LEVOTHYROXINE 125 MCG TAB PO SCH (09:28)
[2016-10-12] MEDS: LOSARTAN POTASSIUM 50 MG TAB PO SCH (09:28)
[2016-10-12] MEDS: ESTRADIOL 1 MG TAB PO SCH (09:28)
[2016-10-12] MEDS: LACTOBACILLUS ACIDOPHILUS (FLORANEX) TAB PO SCH (09:28)
[2016-10-12] MEDS: METFORMIN HCL 500 MG TAB PO SCH ×2 (09:29→17:27)
[2016-10-12] MEDS: CLONAZEPAM 0.5 MG TAB PO SCH ×3 (09:29→21:22)
[2016-10-12] MEDS: THIOTHIXENE 5 MG CAP PO SCH ×3 (09:29→21:22)
[2016-10-12] MEDS: MULTIVITAMIN TAB PO SCH (09:29)
[2016-10-12] MEDS: CHOLECALCIFEROL 1000 INTER.UNIT TAB PO SCH (09:30)
[2016-10-12] MEDS: SERTRALINE HCL 100 MG TAB PO SCH (09:30)
--- NOTE | 2016-10-12 14:06 | Psychiatric Progress Notes ---
Progress Note Date of Service October 12, 2016. Interval History 45 yo woman with schizoaffective disorder, admitted voluntarily on 10/08/16 with a progressive deterioration since mother in June. She is experiencing auditory hallucinations telling her to kill herself. Chief Complaint "[place]ley voices last night". Subjective Patient was seen & assessed interval progress reviewed with Treatment Team. Patient reports that she is feeling very anxious and this is aggravated by approach of mother's day tomorrow and recent of her mother in June. For additional support she hopes to be in phone contact with her father and brother tomorrow. Last nights had auditory command hallucinations to harm herself. Auditory hallucination is voice of her grandfather and appears to worsen at bedtime. Tolerating medications well overall. Review of Systems Psych: denies symptoms other than stated above Constitutional: denied Cardiovascular: denied GI: denied Neurologic: denied Remainder of 10 body systems also reviewed and denied other than noted above. Sleep Information Total Hours of Sleep: 8.00 Meal Information Percent of Breakfast Consumed: 100 Percent of Lunch Consumed: 100 Percent of Dinner Consumed: 100 Mental Status Exam During interview pt is: alert and oriented, cooperative Appearance: appropriately dressed, appropriately groomed Eye contact is: good Motor behavior is: tremor (Parkinson like) Speech: normal in rate, rhythm & volume Affect: depressed, anxious, constricted Mood is: depressed, anxious Thought process: goal directed Thought content: reality based without delusions (is aware the voices aren't real) Suicidal thought are: present, Plan: present (to scratch herself), Intent: denied Homicidal thoughts are: denied Hallucinations: auditory (of grandfather's voice telling her to kill herself), denies visual Cognition: memory grossly intact, attention grossly intact, language grossly intact Intelligence estimated to be: average Insight: impaired Judgement: impaired Impression Remains depressed and anxious. Tolerating lamictal titration, no evidence of SJS. Zoloft has been backed off to 200 mg. daily. Will continue our current plan. Plan (1) Schizoaffective disorder, depressive type 10/08 -Continue all of her outpatient medications (sertraline, lurasidone, clonazepam, and thiothixene) with the exception of Lamictal which we will increase to 50 mg daily -Coordinate with all of her outpatient providers -Encourage participation in group and individual counseling -Every 15 minute checks for safety -Family meeting. 2 brothers work in the mental health field, 1 as a psychiatric nurse practitioner and may want to be involved in a phone conference -Encourage the patient to be out of her room engaging with peers -Reality orientation -Monitoring labs on atypicals last performed on 02/01/16 and were within normal limits 10/09 - Decrease Zoloft to 200 mg. daily as currently ineffective and we are augmenting with lamictal - Continue other meds. 10/10 - Continue current meds - can taper off sertraline while titrating up on lamotrigine. 10/11 - Continue current plan (2) Class II obesity 10/08 -Encourage the patient to use the exercise bicycle -Consider dietary consult (3) Dyslipidemia 10/08 -Continue outpatient dosing of a atorvastatin (4) Type 2 diabetes mellitus 10/08 -Continue home dosing of metformin -BS cheese once daily in the a.m. -Encourage the patient to make good food choices and use the exercise bicycle regularly (5) Hypertension 10/08 -Continue outpatient antihypertensives -Monitor blood pressure (6) Hypothyroidism 10/08 -TSH within normal limits -Continue home dosing of levothyroxine Has been reviewed with Dr. Archana Urbina Discharge / Aftercare Planning Primary Care Physician: Name: Phone Number: [phone] Psychiatrist: Name: Kassandra VALERIO Date of Appointment: October 23, 2016 Time of Appointment: 3:20pm Therapist: Name: Harini zhang [facility] Date of Appointment: October 17, 2016 Time of Appointment: 11:00am Eyeletter: Name: Ramiro Santo with [facility] or Psych Rehab: Name: JORGE A Psych Rehab Visit Code E&M Code: 51897 Inventory Assets Strengths: Good rapport with all of her outpatient providers, willingness to engage in treatment Risk Factors Assessment : Yes /single/: Yes Higher / Fall in social status: No Mental Health Diagnoses: Yes Previous attempt: Yes Previous psychiatric stay: Yes Hopelessness: No Smoker: No Protective Factors Assessment Advent beliefs: Yes : No Responsible for young children: No Employed: Yes Stable relationships: Yes Supportive family: Yes Good rapport with provider: Yes Data Vital Signs Last 24 Hrs: Date Time Temp Pulse Resp B/P Pulse Ox O2 Delivery O2 Flow Rate FiO2 10/12/16 06:43 36.9 57 16 127/84 61 140/90 Meds Administered Last 24 Hrs: Meds Administered (Past 24Hrs) Medications (Trade) Dose Ordered Sig/Christofer Route Start Time Stop Time Status Last Admin Dose Admin Thiothixene (Navane Cap) 10 mg TID PO 10/11/16 09:00 11/06/16 21:59 10/12/16 09:29 10 MG Lab Results Last 24 Hrs: Last 24 Hours Test 10/12/16 07:39 Bedside Glucose 89 mg/dl Problem Qualifiers (1) Type 2 diabetes mellitus: Diabetes mellitus complication status: without complication Diabetes mellitus superintendent terminal insulin use: without group home use Qualified Codes: E11.9 - Type 2 diabetes mellitus without complications (2) Hypertension: Hypertension type: essential hypertension Qualified Codes: I10 - Essential ( primary) hypertension
[2016-10-12] MEDS: MONTELUKAST SOD 10 MG TAB PO SCH (17:27)
[2016-10-12] MEDS: LURASIDONE HCL 40 MG TAB PO SCH (17:27)
[2016-10-12] MEDS: ATORVASTATIN 10 MG TAB PO SCH (21:22)
[2016-10-12] MEDS: DESMOPRESSIN ACETATE 0.1 MG TAB PO SCH (21:22)
[2016-10-13] MEDS: THIOTHIXENE 5 MG CAP PO PRN (03:17)
[2016-10-13 07:14] VITALS: BP_SYST 116; BP_SYST 128; BP_DIAS 79; BP_DIAS 84; PULSE 62; PULSE 71; TEMP 36.9
[2016-10-13] MEDS: LEVOTHYROXINE 125 MCG TAB PO SCH (07:56)
[2016-10-13] MEDS: METFORMIN HCL 500 MG TAB PO SCH ×2 (08:39→17:54)
[2016-10-13] MEDS: ESTRADIOL 1 MG TAB PO SCH (08:39)
[2016-10-13] MEDS: LOSARTAN POTASSIUM 50 MG TAB PO SCH (08:39)
[2016-10-13] MEDS: LACTOBACILLUS ACIDOPHILUS (FLORANEX) TAB PO SCH (08:39)
[2016-10-13] MEDS: MULTIVITAMIN TAB PO SCH (08:40)
[2016-10-13] MEDS: CLONAZEPAM 0.5 MG TAB PO SCH ×3 (08:40→21:02)
[2016-10-13] MEDS: THIOTHIXENE 5 MG CAP PO SCH ×3 (08:40→21:02)
[2016-10-13] MEDS: CHOLECALCIFEROL 1000 INTER.UNIT TAB PO SCH (08:40)
[2016-10-13] MEDS: SERTRALINE HCL 100 MG TAB PO SCH (08:41)
--- NOTE | 2016-10-13 12:23 | Psychiatric Progress Notes ---
Progress Note Date of Service October 13, 2016. Interval History 45 yo woman with schizoaffective disorder, admitted voluntarily on 10/08/16 with a progressive deterioration since mother in June. She is experiencing auditory hallucinations telling her to kill herself. Chief Complaint "Sad". Subjective Patient was seen & assessed interval progress reviewed with Treatment Team. Patient reports feeling sad with it being mother's day today and her mother passing away in June. She reports that staff have been supportive and she enjoyed hearing from her father by telephone yesterday. Tolerating medications well overall. She experienced an increase in auditory hallucinations with her grandfather's voice last evening and received a PRN dose of Navane which helped these symptoms.Tolerating medications well without any significant side effects. Review of Systems Psych: denies symptoms other than stated above Constitutional: denied Cardiovascular: denied GI: denied Neurologic: denied Remainder of 10 body systems also reviewed and denied other than noted above. Sleep Information Total Hours of Sleep: 7.00 Meal Information Percent of Breakfast Consumed: 100 Percent of Lunch Consumed: 100 Percent of Dinner Consumed: 100 Mental Status Exam During interview pt is: alert and oriented, cooperative Appearance: appropriately dressed, appropriately groomed Eye contact is: good Motor behavior is: tremor (Parkinson like) Speech: normal in rate, rhythm & volume Affect: depressed, anxious, constricted Mood is: depressed, anxious Thought process: goal directed Thought content: reality based without delusions (is aware the voices aren't real) Suicidal thought are: present, Plan: present (to scratch herself), Intent: denied Homicidal thoughts are: denied Hallucinations: auditory (of grandfather's voice telling her to kill herself), denies visual Cognition: memory grossly intact, attention grossly intact, language grossly intact Intelligence estimated to be: average Insight: impaired Judgement: impaired Impression Remains depressed and anxious. Tolerating lamictal titration, no evidence of SJS. Zoloft has been backed off to 200 mg. daily. Will continue our current plan. Plan (1) Schizoaffective disorder, depressive type 10/08 -Continue all of her outpatient medications (sertraline, lurasidone, clonazepam, and thiothixene) with the exception of Lamictal which we will increase to 50 mg daily -Coordinate with all of her outpatient providers -Encourage participation in group and individual counseling -Every 15 minute checks for safety -Family meeting. 2 brothers work in the mental health field, 1 as a psychiatric nurse practitioner and may want to be involved in a phone conference -Encourage the patient to be out of her room engaging with peers -Reality orientation -Monitoring labs on atypicals last performed on 02/01/16 and were within normal limits 10/09 - Decrease Zoloft to 200 mg. daily as currently ineffective and we are augmenting with lamictal - Continue other meds. 10/10 - Continue current meds - can taper off sertraline while titrating up on lamotrigine. 10/11 - Continue current plan (2) Class II obesity 10/08 -Encourage the patient to use the exercise bicycle -Consider dietary consult (3) Dyslipidemia 10/08 -Continue outpatient dosing of a atorvastatin (4) Type 2 diabetes mellitus 10/08 -Continue home dosing of metformin -BS cheese once daily in the a.m. -Encourage the patient to make good food choices and use the exercise bicycle regularly (5) Hypertension 10/08 -Continue outpatient antihypertensives -Monitor blood pressure (6) Hypothyroidism 10/08 -TSH within normal limits -Continue home dosing of levothyroxine Has been reviewed with Dr. Archana Urbina Discharge / Aftercare Planning Primary Care Physician: Name: Phone Number: [phone] Psychiatrist: Name: Kassandra VALERIO Date of Appointment: October 23, 2016 Time of Appointment: 3:20pm Therapist: Name: Harini zhang [facility] Date of Appointment: October 17, 2016 Time of Appointment: 11:00am Industrial Machinery Mechanic: Name: Ramiro Santo with [facility] Partial or Psych Rehab: Name: [facility] A Psych Rehab Visit Code E&M Code: 33317 Inventory Assets Strengths: Good rapport with all of her outpatient providers, willingness to engage in treatment Risk Factors Assessment : Yes /single/: Yes Higher / Fall in social status: No Mental Health Diagnoses: Yes Previous attempt: Yes Previous psychiatric stay: Yes Hopelessness: No Smoker: No Protective Factors Assessment Protestant beliefs: Yes : No Responsible for young children: No Employed: Yes Stable relationships: Yes Supportive family: Yes Good rapport with provider: Yes Data Vital Signs Last 24 Hrs: Date Time Temp Pulse Resp B/P Pulse Ox O2 Delivery O2 Flow Rate FiO2 10/13/16 07:14 36.9 62 16 116/79 71 128/84 Lab Results Last 24 Hrs: Last 24 Hours Test 10/13/16 07:55 Bedside Glucose 96 mg/dl Problem Qualifiers (1) Type 2 diabetes mellitus: Diabetes mellitus complication status: without complication Diabetes mellitus detention insulin use: without detention use Qualified Codes: E11.9 - Type 2 diabetes mellitus without complications (2) Hypertension: Hypertension type: essential hypertension Qualified Codes: I10 - Essential ( primary) hypertension
[2016-10-13] MEDS: MONTELUKAST SOD 10 MG TAB PO SCH (17:54)
[2016-10-13] MEDS: LURASIDONE HCL 40 MG TAB PO SCH (17:54)
[2016-10-13] MEDS: DESMOPRESSIN ACETATE 0.1 MG TAB PO SCH (21:02)
[2016-10-13] MEDS: ATORVASTATIN 10 MG TAB PO SCH (21:02)
[2016-10-14] MEDS: THIOTHIXENE 5 MG CAP PO PRN (04:06)
[2016-10-14 06:59] VITALS: BP_SYST 127; BP_DIAS 82; BP_DIAS 83; PULSE 61; PULSE 81; TEMP 36.9
[2016-10-14] MEDS: LEVOTHYROXINE 125 MCG TAB PO SCH (08:20)
[2016-10-14] MEDS: LOSARTAN POTASSIUM 50 MG TAB PO SCH (08:47)
[2016-10-14] MEDS: METFORMIN HCL 500 MG TAB PO SCH ×2 (08:48→17:17)
[2016-10-14] MEDS: LACTOBACILLUS ACIDOPHILUS (FLORANEX) TAB PO SCH (08:48)
[2016-10-14] MEDS: ESTRADIOL 1 MG TAB PO SCH (08:48)
[2016-10-14] MEDS: CLONAZEPAM 0.5 MG TAB PO SCH ×3 (08:49→21:22)
[2016-10-14] MEDS: MULTIVITAMIN TAB PO SCH (08:49)
[2016-10-14] MEDS: CHOLECALCIFEROL 1000 INTER.UNIT TAB PO SCH (08:50)
[2016-10-14] MEDS: THIOTHIXENE 5 MG CAP PO SCH ×3 (08:50→21:23)
[2016-10-14] MEDS: SERTRALINE HCL 100 MG TAB PO SCH (08:50)
--- NOTE | 2016-10-14 11:12 | Psychiatric Progress Notes ---
Progress Note Date of Service October 14, 2016. Interval History 45 yo woman with schizoaffective disorder, admitted voluntarily on 10/08/16 with a progressive deterioration since mother in June. She is experiencing auditory hallucinations telling her to kill herself. Chief Complaint "It was a rough day.". Subjective Patient was seen & assessed interval progress reviewed with Treatment Team. The patient had a difficult day yesterday, Mother's Day. She got through it "the best I could". She did not want to take the first call from her father in the AM, but talked with him later. She didn't want to increase his suffering through her own. She was tearful, and spent some time alone. She has been having worsening auditory hallucinations of her grandfather's voice at night and requiring prn navane. Today her mood remains low, rated a 2-3/10. She remains anxious as well. Her tremor continues, greater at rest, in BUE and in BLE, but not interfering with ambulation. Mild tremor R>L to outstretched hands. She met with her casey saw operator Ramiro Santo today and they are referring her for mobile psych rehab in addition to her other services. She admits that she was self injuring this weekend, by scratching her forearms because she was having hallucinations and couldn't get the attention of the nurses to bring her a prn. There are multiple superficial abrasions on both forearms, without evidence of infection. Review of Systems Constitutional: No chills, No fatigue, No fever, No problem reported, No sweats , No weakness, No weight loss ENT: No dental problems, No hearing loss, No nasal symptoms, No problem reported, No sore throat, No tinnitus, No trouble swallowing, No unusual epistaxis Respiratory: No cough, No dyspnea at rest, No dyspnea on exertion, No hemoptysis, No problem reported, No shortness of breath, No sputum, No wheezing Cardiovascular: No PND, No chest pain, No claudication, No edema, No orthopnea , No palpitations, No problem reported Abdomen: No GI bleeding, No constipation, No diarrhea, No nausea, No pain, No problem reported, No vomiting Musculoskeletal: + problem reported (walks with a cane) Neurologic: No balance problems, No memory loss, No numbness/tingling, No paralysis, No problem reported, No vertigo, No weakness Psychiatric: + anxiety, + depression symptoms (with SIB), + insomnia Integumentary: No bleeding, No color change, No itch, No new/changing skin lesions, No problem reported, No rash Sleep Information Total Hours of Sleep: 7.50 Meal Information Percent of Breakfast Consumed: 100 Percent of Lunch Consumed: 100 Percent of Dinner Consumed: 100 Mental Status Exam During interview pt is: alert and oriented, cooperative Appearance: appropriately dressed, appropriately groomed Eye contact is: good, fair Motor behavior is: tremor (Parkinson like) Speech: normal in rate, rhythm & volume Affect: depressed, tearful, anxious, constricted Mood is: depressed, anxious Thought process: goal directed Thought content: reality based without delusions (is aware the voices aren't real) Suicidal thought are: present, Plan: present (to scratch herself), Intent: denied Homicidal thoughts are: denied Hallucinations: auditory (of grandfather's voice telling her to kill herself), denies visual Cognition: memory grossly intact, attention grossly intact, language grossly intact Intelligence estimated to be: average Insight: impaired Judgement: impaired Impression Remains depressed and anxious and self injured over the weekend. Will increase Lamictal to 75 mg daily, and redistribute Navane to 1 mg. noon and 20 mg. HS to address HS hallucinations. Plan (1) Schizoaffective disorder, depressive type 10/08 -Continue all of her outpatient medications (sertraline, lurasidone, clonazepam, and thiothixene) with the exception of Lamictal which we will increase to 50 mg daily -Coordinate with all of her outpatient providers -Encourage participation in group and individual counseling -Every 15 minute checks for safety -Family meeting. 2 brothers work in the mental health field, 1 as a psychiatric nurse practitioner and may want to be involved in a phone conference -Encourage the patient to be out of her room engaging with peers -Reality orientation -Monitoring labs on atypicals last performed on 02/01/16 and were within normal limits 10/09 - Decrease Zoloft to 200 mg. daily as currently ineffective and we are augmenting with lamictal - Continue other meds. 10/10 - Continue current meds - can taper off sertraline while titrating up on lamotrigine. 10/11 - Continue current plan 5/15 - change navane to 10 mg noon and 20 mg. HS - Increase Lamictal to 75 mg daily (2) Class II obesity 10/08 -Encourage the patient to use the exercise bicycle -Consider dietary consult (3) Dyslipidemia 10/08 -Continue outpatient dosing of a atorvastatin (4) Type 2 diabetes mellitus 10/08 -Continue home dosing of metformin -BS cheese once daily in the a.m. -Encourage the patient to make good food choices and use the exercise bicycle regularly (5) Hypertension 10/08 -Continue outpatient antihypertensives -Monitor blood pressure (6) Hypothyroidism 10/08 -TSH within normal limits -Continue home dosing of levothyroxine Has been reviewed with Dr. Archana Urbina Discharge / Aftercare Planning Primary Care Physician: Name: Phone Number: [phone] Psychiatrist: Name: Kassandra VALERIO Date of Appointment: October 23, 2016 Time of Appointment: 3:20pm Therapist: Name: Harini Miller at [facility] Date of Appointment: October 17, 2016 Time of Appointment: 11:00am Boarding Specialist: Name: Ramiro Santo with [facility] Date of Appointment: October 18, 2016 Time of Appointment: 2pm Appointment Notes: and 10/21 @11am Partial or Psych Rehab: Name: [facility] A Psych Rehab Visit Code E&M Code: 46715 Inventory Assets Strengths: Good rapport with all of her outpatient providers, willingness to engage in treatment Risk Factors Assessment : Yes /single/: Yes Higher / Fall in social status: No Mental Health Diagnoses: Yes Previous attempt: Yes Previous psychiatric stay: Yes Hopelessness: No Smoker: No Protective Factors Assessment Mormonism beliefs: Yes : No Responsible for young children: No Employed: Yes Stable relationships: Yes Supportive family: Yes Good rapport with provider: Yes Data Vital Signs Last 24 Hrs: Date Time Temp Pulse Resp B/P Pulse Ox O2 Delivery O2 Flow Rate FiO2 10/14/16 06:59 36.9 61 16 127/82 81 127/83 Meds Administered Last 24 Hrs: Current Inpatient Medications Medications (Trade) Dose Ordered Sig/Christofer Route Start Time Stop Time Status Last Admin Dose Admin Acetaminophen (Tylenol Tab) 650 mg Q4H PRN PO 10/07/16 20:15 11/06/16 20:14 Al Hydroxide/Mg Hydroxide (Maalox Susp) 30 ml Q4H PRN PO 10/07/16 20:15 11/06/16 20:14 Bismuth Subsalicylate (Kaopectate Liqd) 15 ml DAILY PRN PO 10/07/16 20:15 11/06/16 20:14 Magnesium Hydroxide (Milk Of Magnesia Susp) 30 ml DAILY PRN PO 10/07/16 20:15 11/06/16 20:14 Sodium Chloride ([place] Nasal [place]) PRN PRN NA 10/07/16 20:15 11/06/16 20:14 Hydroxyzine HCl (Vistaril Tab) 50 mg HSZ PRN PO 10/07/16 20:15 11/06/16 20:14 Hydroxyzine HCl (Vistaril Tab) 25 mg Q4H PRN PO 10/07/16 20:15 11/06/16 20:14 Atorvastatin Calcium (Lipitor Tab) 10 mg HS PO 10/07/16 22:00 11/06/16 21:59 10/13/16 21:02 10 MG Clonazepam (Klonopin Tab) 0.5 mg TID PO 10/07/16 22:00 11/06/16 21:59 10/14/16 08:49 0.5 MG Cholecalciferol (Vitamin D Tab) 5,000 inter.unit DAILY PO 10/08/16 09:00 11/07/16 08:59 10/14/16 08:50 5,000 INTER.UNIT Clonazepam (Klonopin Tab) 0.5 mg TID PRN PO 10/07/16 21:30 11/06/16 21:29 10/11/16 17:42 0.5 MG Desmopressin Acetate (Desmopressin Acetate) 0.2 mg HS PO 10/07/16 22:00 11/06/16 21:59 10/13/16 21:02 0.2 MG Estradiol (Estrace Tab) 1 mg QAM PO 10/08/16 09:00 11/07/16 08:59 10/14/16 08:48 1 MG Levothyroxine Sodium (Synthroid Tab) 125 mcg DAILYBB PO 10/08/16 08:00 6/8/17 07:59 10/14/16 08:20 125 MCG Losartan Potassium (coZAAR TAB) 50 mg QAM PO 10/08/16 09:00 11/07/16 08:59 10/14/16 08:47 50 MG Metformin HCl (Glucophage Tab) 500 mg QAM PO 10/08/16 09:00 11/07/16 08:59 10/14/16 08:48 500 MG Metformin HCl (Glucophage Tab) 1,000 mg QDD PO 10/07/16 22:00 11/06/16 21:59 10/13/16 17:54 1,000 MG Montelukast Sodium (Singulair Tab) 10 mg PM PO 10/08/16 17:00 11/07/16 16:59 10/13/16 17:54 10 MG Multivitamins (Multivitamin Tab) 1 tab QAM PO 10/08/16 09:00 11/07/16 08:59 10/14/16 08:49 1 TAB Lactobacillus Acidophilus (Floranex Tab) 1 tab DAILY PO 10/08/16 09:00 11/07/16 08:59 10/14/16 08:48 1 TAB Lamotrigine (Lamictal Tab) 50 mg QAM PO 10/09/16 09:00 11/08/16 08:59 10/14/16 08:49 50 MG Lurasidone HCl (Latuda Tab) 160 mg DAILY@1700 PO 10/09/16 17:00 11/08/16 16:59 10/13/16 17:54 160 MG Sertraline HCl (Zoloft Tab) 200 mg QAM PO 10/10/16 09:00 11/09/16 08:59 10/14/16 08:50 200 MG Thiothixene (Navane Cap) 10 mg TID PO 10/11/16 09:00 11/06/16 21:59 10/14/16 08:50 10 MG Thiothixene (Navane Cap) 10 mg DAILY PRN PO 10/11/16 08:15 11/06/16 21:29 10/14/16 04:06 10 MG Lab Results Last 24 Hrs: Last 24 Hours Test 10/14/16 08:23 Bedside Glucose 95 mg/dl Problem Qualifiers (1) Type 2 diabetes mellitus: Diabetes mellitus complication status: without complication Diabetes mellitus shelter insulin use: without terminal gauger use Qualified Codes: E11.9 - Type 2 diabetes mellitus without complications (2) Hypertension: Hypertension type: essential hypertension Qualified Codes: I10 - Essential ( primary) hypertension
[2016-10-14] MEDS: LURASIDONE HCL 40 MG TAB PO SCH (17:16)
[2016-10-14] MEDS: MONTELUKAST SOD 10 MG TAB PO SCH (17:16)
[2016-10-14] MEDS: DESMOPRESSIN ACETATE 0.1 MG TAB PO SCH (21:22)
[2016-10-14] MEDS: ATORVASTATIN 10 MG TAB PO SCH (21:23)
[2016-10-15 07:00] VITALS: BP_SYST 118; BP_SYST 132; BP_DIAS 76; BP_DIAS 88; PULSE 58; PULSE 73; TEMP 36.9
[2016-10-15] MEDS: ESTRADIOL 1 MG TAB PO SCH (08:01)
[2016-10-15] MEDS: LOSARTAN POTASSIUM 50 MG TAB PO SCH (08:01)
[2016-10-15] MEDS: LEVOTHYROXINE 125 MCG TAB PO SCH (08:01)
[2016-10-15] MEDS: LACTOBACILLUS ACIDOPHILUS (FLORANEX) TAB PO SCH (08:01)
[2016-10-15] MEDS: MULTIVITAMIN TAB PO SCH (08:02)
[2016-10-15] MEDS: CHOLECALCIFEROL 1000 INTER.UNIT TAB PO SCH (08:02)
[2016-10-15] MEDS: METFORMIN HCL 500 MG TAB PO SCH ×2 (08:02→17:58)
[2016-10-15] MEDS: SERTRALINE HCL 100 MG TAB PO SCH (08:03)
[2016-10-15] MEDS: CLONAZEPAM 0.5 MG TAB PO SCH ×3 (08:18→21:27)
--- NOTE | 2016-10-15 09:27 | Psychiatric Progress Notes ---
Progress Note Date of Service October 15, 2016. Interval History 45 yo woman with schizoaffective disorder, admitted voluntarily on 10/08/16 with a progressive deterioration since mother in June. She is experiencing auditory hallucinations telling her to kill herself. Chief Complaint "OK". Subjective Patient was seen & assessed interval progress reviewed with Treatment Team. The patient says that she slept better last night, although still woke once with hallucinations, but able to fall back to sleep. Her voices are "a little less" this AM. She continues to report racing worried thoughts, feeling that her anxiety is "pretty high" today. The auditory hallucinations is of her grandfather's voice telling her to kill herself, but denies any independent SI. She denies visual experiences. She denies rash, or other side effects to meds. Her mood remains depressed, with focus on mother's . She is worried about disappointing others ie doesn't want her therapist to have an open slot in her schedule if she is unable to make her appt on . Review of Systems Constitutional: No chills, No fatigue, No fever, No problem reported, No sweats , No weakness, No weight loss ENT: No dental problems, No hearing loss, No nasal symptoms, No problem reported, No sore throat, No tinnitus, No trouble swallowing, No unusual epistaxis Respiratory: No cough, No dyspnea at rest, No dyspnea on exertion, No hemoptysis, No problem reported, No shortness of breath, No sputum, No wheezing Cardiovascular: No PND, No chest pain, No claudication, No edema, No orthopnea , No palpitations, No problem reported Abdomen: No GI bleeding, No constipation, No diarrhea, No nausea, No pain, No problem reported, No vomiting Musculoskeletal: + problem reported (Ambulates with a cane) Neurologic: No balance problems, No memory loss, No numbness/tingling, No paralysis, No problem reported, No vertigo, No weakness Psychiatric: + anxiety, + depression symptoms Integumentary: + problem reported (abrasions to both forearms, healing) Sleep Information Total Hours of Sleep: 8.25 Meal Information Percent of Breakfast Consumed: 100 Percent of Lunch Consumed: 95 Percent of Dinner Consumed: 100 Mental Status Exam During interview pt is: alert and oriented, cooperative Appearance: appropriately dressed, appropriately groomed Eye contact is: fair Motor behavior is: tremor (Parkinson like) Speech: normal in rate, rhythm & volume Affect: depressed, anxious, constricted Mood is: depressed, anxious Thought process: goal directed Thought content: reality based without delusions (is aware the voices aren't real) Suicidal thought are: present, Plan: present (to scratch herself), Intent: denied Homicidal thoughts are: denied Hallucinations: auditory (of grandfather's voice telling her to kill herself), denies visual Cognition: memory grossly intact, attention grossly intact, language grossly intact Intelligence estimated to be: average Insight: impaired Judgement: impaired Impression Remains depressed and anxious. SLeep slightly improved with more navane at HS. Today will not have AM navane. Would like to observe while making medication adjustments as patient continues to be depressed, anxious and poorly functional. I fear she would require rehospitalization if discharged in current condition. Plan (1) Schizoaffective disorder, depressive type 10/08 -Continue all of her outpatient medications (sertraline, lurasidone, clonazepam, and thiothixene) with the exception of Lamictal which we will increase to 50 mg daily -Coordinate with all of her outpatient providers -Encourage participation in group and individual counseling -Every 15 minute checks for safety -Family meeting. 2 brothers work in the mental health field, 1 as a psychiatric nurse practitioner and may want to be involved in a phone conference -Encourage the patient to be out of her room engaging with peers -Reality orientation -Monitoring labs on atypicals last performed on 02/01/16 and were within normal limits 10/09 - Decrease Zoloft to 200 mg. daily as currently ineffective and we are augmenting with lamictal - Continue other meds. 10/10 - Continue current meds - can taper off sertraline while titrating up on lamotrigine. 10/11 - Continue current plan 10/14 - change navane to 10 mg noon and 20 mg. HS - Increase Lamictal to 75 mg daily (2) Class II obesity 10/08 -Encourage the patient to use the exercise bicycle -Consider dietary consult (3) Dyslipidemia 10/08 -Continue outpatient dosing of a atorvastatin (4) Type 2 diabetes mellitus 10/08 -Continue home dosing of metformin -BS cheese once daily in the a.m. -Encourage the patient to make good food choices and use the exercise bicycle regularly (5) Hypertension 10/08 -Continue outpatient antihypertensives -Monitor blood pressure (6) Hypothyroidism 10/08 -TSH within normal limits -Continue home dosing of levothyroxine Has been reviewed with Dr. Archana Urbina Discharge / Aftercare Planning Primary Care Physician: Name: Phone Number: [phone] Psychiatrist: Name: Kassandra VALERIO Date of Appointment: October 23, 2016 Time of Appointment: 3:20pm Therapist: Name: Harini Miller at [facility] Date of Appointment: October 17, 2016 Time of Appointment: 11:00am Signal Maintenance Technician: Name: Ramiro Beckailyn with [facility] Date of Appointment: October 18, 2016 Time of Appointment: 2pm Appointment Notes: and 10/21 @11am Partial or Psych Rehab: Name: [facility] [place] Psych Rehab Visit Code E&M Code: 39137 Inventory Assets Strengths: Good rapport with all of her outpatient providers, willingness to engage in treatment Risk Factors Assessment : Yes /single/: Yes Higher / Fall in social status: No Mental Health Diagnoses: Yes Previous attempt: Yes Previous psychiatric stay: Yes Hopelessness: No Smoker: No Protective Factors Assessment Buddhism beliefs: Yes : No Responsible for young children: No Employed: Yes Stable relationships: Yes Supportive family: Yes Good rapport with provider: Yes Data Vital Signs Last 24 Hrs: Date Time Temp Pulse Resp B/P Pulse Ox O2 Delivery O2 Flow Rate FiO2 10/15/16 07:00 36.9 58 16 118/76 73 132/88 Meds Administered Last 24 Hrs: Meds Administered (Past 24Hrs) Medications (Trade) Dose Ordered Sig/Christofer Route Start Time Stop Time Status Last Admin Dose Admin Lamotrigine (Lamictal Tab) 75 mg QAM PO 10/15/16 09:00 11/14/16 08:59 10/15/16 08:02 75 MG Thiothixene (Navane Cap) 10 mg DAILY@1200 PO 10/14/16 12:00 11/13/16 11:59 10/14/16 12:49 10 MG Thiothixene (Navane Cap) 20 mg HS PO 10/14/16 22:00 11/13/16 21:59 10/14/16 21:23 20 MG Lab Results Last 24 Hrs: Last 24 Hours Test 10/15/16 08:14 Bedside Glucose 98 mg/dl Problem Qualifiers (1) Type 2 diabetes mellitus: Diabetes mellitus complication status: without complication Diabetes mellitus frozen food department manager insulin use: without residential use Qualified Codes: E11.9 - Type 2 diabetes mellitus without complications (2) Hypertension: Hypertension type: essential hypertension Qualified Codes: I10 - Essential ( primary) hypertension
[2016-10-15] MEDS: THIOTHIXENE 5 MG CAP PO PRN (10:52)
[2016-10-15] MEDS: THIOTHIXENE 5 MG CAP PO SCH ×2 (13:39→21:25)
[2016-10-15] MEDS: LURASIDONE HCL 40 MG TAB PO SCH (17:57)
[2016-10-15] MEDS: MONTELUKAST SOD 10 MG TAB PO SCH (17:57)
[2016-10-15] MEDS: DESMOPRESSIN ACETATE 0.1 MG TAB PO SCH (21:24)
[2016-10-15] MEDS: ATORVASTATIN 10 MG TAB PO SCH (21:25)
[2016-10-16] MEDS: CLONAZEPAM 0.5 MG TAB PO PRN (05:13)
[2016-10-16 06:58] VITALS: BP_SYST 110; BP_SYST 128; BP_DIAS 72; BP_DIAS 81; PULSE 57; PULSE 79; TEMP 36.8
[2016-10-16] MEDS: LEVOTHYROXINE 125 MCG TAB PO SCH (08:28)
[2016-10-16] MEDS: LACTOBACILLUS ACIDOPHILUS (FLORANEX) TAB PO SCH (09:08)
[2016-10-16] MEDS: ESTRADIOL 1 MG TAB PO SCH (09:08)
[2016-10-16] MEDS: LOSARTAN POTASSIUM 50 MG TAB PO SCH (09:08)
[2016-10-16] MEDS: METFORMIN HCL 500 MG TAB PO SCH (09:08)
[2016-10-16] MEDS: CLONAZEPAM 0.5 MG TAB PO SCH ×2 (09:09→11:47)
[2016-10-16] MEDS: MULTIVITAMIN TAB PO SCH (09:09)
[2016-10-16] MEDS: SERTRALINE HCL 100 MG TAB PO SCH (09:10)
[2016-10-16] MEDS: CHOLECALCIFEROL 1000 INTER.UNIT TAB PO SCH (09:10)
[2016-10-16] MEDS ORDERED: THIO5CAP2 PO (09:13)
[2016-10-16] MEDS ORDERED: SERT100T PO (09:13)
[2016-10-16] MEDS ORDERED: LMC25 PO (09:13)
--- NOTE | 2016-10-16 09:28 | Discharge Instructions ---
Discharge Information Report Includes Report will include the: Discharge Instructions & Summary Admission Admission Date / Time: October 07, 2016 at 20:03 Reason for Admission: Suicidal Ideations And Auditory Hallucinations, Discharge Discharge Diagnosis / Problem: Schizoaffective disorder. Condition at Discharge: Fair Discharge Goals Goal(s): Improve function, Improve disease control, Learn about illness, Therapeutic intervention Activity Recommendations Activity Limitations: per Instructions/Follow-up section . Instructions / Follow-Up Instructions / Follow-Up . SPECIAL CARE INSTRUCTIONS: 1. Follow through with your scheduled aftercare appointments. If unable to keep an appointment, please call to reschedule. 2. Take your medication only as prescribed. Medication should not be changed or stopped without the approval of your doctor. In the event of worsening symptoms or concerns about side effects, contact your doctor immediately. You should increase the dose of Lamictal to 100mg daily on 10/22/16. 3. Utilize new healthy coping skills, anger management skills, and stress management skills learned during your hospitalization. Journal feelings and process them with a support person. Identify stressors or situations that may result in relapse, deterioration or inappropriate behaviors and develop a plan to deal with those issues. 4. If your coping skills are ineffective and you are in crisis, contact your outpatient providers for direction. If unable to reach your providers, please call the CAN HELP LINE AT or go to the closest Emergency Room. 5. Avoid alcohol and un-prescribed drugs. 6. You have been provided with the Mental Health Advance Directives Pamphlet for your review. AFTERCARE APPOINTMENTS: * Please call your insurance company prior to your scheduled appointment to confirm your aftercare providers are covered. Take your insurance information to your appointments. . Discharge / Aftercare Planning Primary Care Physician: Name: Phone Number: [phone] Psychiatrist: Name: Kassandra VALERIO Date of Appointment: October 23, 2016 Time of Appointment: 3:20pm Therapist: Name Of Therapist: Harini Miller at [facility] Date of Appointment: October 17, 2016 Time of Appointment: 11:00am Communications Tower Climber: Name: Ramiro Santo with [email or web address] Date of Appointment: October 18, 2016 Time of Appointment: 2pm Appointment Notes: and 10/21 @11am Partial or Psych Rehab: Name: [facility] Psych Rehab Appointment Comments: They will call you at home to schedule . Follow-Up Care Plan for Follow-Up Care: See above. Current Hospital Diet Patient's current hospital diet: Regular Diet Discharge Diet Recommended Diet: Regular Diet Procedures Procedures Performed: No Pending Studies Pending Studies at Discharge: No Medical Emergencies . Who to Call and When: Medical Emergencies: For questions or emergencies related to your hospital stay, please contact the Inpatient Behavioral Health Unit at [phone]. A regional psychiatric director is on-call 23/12 for the Behavioral Health Unit for emergencies At any time you feel your situation is an emergency, you may also call 911 immediately. . Non-Emergent Contact Non-Emergency issues call your: Primary Care Provider, Psychiatrist, Therapist , Communications Tower Climber Past History Medical & Surgical History: (1) Diabetes mellitus type 2 (2) Hypothyroidism (3) Asthma (4) Hypertension (5) Dyslipidemia (6) Class II obesity Advance Directives Existing Advance Directive: No Do You Have an Existing Mental: No Existing Living Will: No Existing Power of Chicken Raiser: No Advance Directives Info Given: To Pt/S.O. Advance Directives Reason: Declines as Mental Health Visit. Discharge Summary Admission HPI Per the Admitting provider: Leisa Cross is a 45-year-old woman with schizoaffective disorder, currently under the treatment of the undersigned, who has been in decline since June when her mother suddenly. Prior to that she had been doing relatively well , having been out of the hospital for about a year and a half. Over the course of several years we had tapered her off of Clozaril which she had been on for a long time, switching her to Latuda 160 mg daily. She has been on multiple medications at high doses, but we have yet to get to the point where we can successfully begin to taper down the rest of her medications. She has lost 40- 50 pounds over the course of the last year coming off of Clozaril and has been very pleased with that result. In general, when the patient decompensates, she has auditory hallucinations of her grandfather's voice telling her that she is worthless and that she should kill herself. These have been quite persistent since her mother in June. She is also on Navane 10 mg 3 times a day. This was reduced from 4 times a day several months ago due to concerns about onset of tremor. The tremor appears to have improved minimally with reduction to her psychotropics. The patient is seen at least every 2 weeks in the outpatient office due to her recent decompensating pattern. She has very much wanted to remain out of the hospital but yesterday called my urgent line to tell me that she was not feeling safe, that the hallucinations were bad and she was having suicidal thoughts but did not think that she would carry them out. She was distressed, crying anxious and unable to function. She had previously seen Dr. Waldemar Guerrero I'm prior to seeing myself. He had diagnosed her with schizoaffective disorder bipolar type, however over the years that her therapist and I had seen her, there was no evidence of a manic or hypomanic episode and we changed her diagnosis to depressed type. Recently however, the patient has been reporting racing thoughts at night that has been disturbing her sleep and it has been difficult to determine if these are in the setting of anxiety, or possible bipolar symptoms. Therefore, I recently began a Lamictal trial, 25 mg weekly increasing by 25 mg weekly. Today the patient says that she thinks the Lamictal has been helpful to her sleep. She remains with racing thoughts at times. She continues to report suicidal ideation that accompany her auditory hallucinations of her grandfather' s voice. Shortly after her mother's , she also heard her mother's voice but mother's voice was saying comforting things. She reports disturbed sleep, with both difficulty falling asleep as well as staying asleep. She has at times engaged in self-injurious behaviors, specifically scratching her forearms , with last event last week. Her energy level has remained at about normal, and she is active with skills 1-1/2 days per week, her case therapist, a group of friends from the mental health system, and her nuclear weapons mechanical specialist. She denies any visual hallucinations. Her appetite has been okay, she had gone through a period where she was rapidly losing weight when she was drinking Slim fast shakes but this has leveled out and if anything she has put on a few pounds in the last month or so. She uses an exercise bike frequently as a means of coping as well as a therapy light. An additional stress is the fact that her father has not been doing well since her mother's . He himself is medically impaired, had a fall and required hospitalization in rehabilitation. She talks with him on a daily basis and is very concerned about his condition. She has a brother who is a psychiatric nurse practitioner down in [place] with her father. Admission Exam Per the Admitting provider: Please see admission H&P. Hospital Course (1) Schizoaffective disorder, depressive type 10/08 -Continue all of her outpatient medications (sertraline, lurasidone, clonazepam, and thiothixene) with the exception of Lamictal which we will increase to 50 mg daily -Coordinate with all of her outpatient providers -Encourage participation in group and individual counseling -Every 15 minute checks for safety -Family meeting. 2 brothers work in the mental health field, 1 as a psychiatric nurse practitioner and may want to be involved in a phone conference -Encourage the patient to be out of her room engaging with peers -Reality orientation -Monitoring labs on atypicals last performed on 02/01/16 and were within normal limits 10/09 - Decrease Zoloft to 200 mg. daily as currently ineffective and we are augmenting with lamictal - Continue other meds. 10/10 - Continue current meds - can taper off sertraline while titrating up on lamotrigine. 10/11 - Continue current plan 10/14 - change navane to 10 mg noon and 20 mg. HS - Increase Lamictal to 75 mg daily 10/15 - pt feels ready for discharge. - no Rxs issued, as meds are the same, other than increase in Lamotrigine, which she has at home. Will be due to increase dose to 100mg daily on 10/22/16. - F/u with TEODORO Arce, Lamar Miller, therapist, Ramiro Santo case therapist, contract management specialist (2) Class II obesity 10/08 -Encourage the patient to use the exercise bicycle -Consider dietary consult (3) Dyslipidemia 10/08 -Continue outpatient dosing of a atorvastatin (4) Type 2 diabetes mellitus 10/08 -Continue home dosing of metformin -BS cheese once daily in the a.m. -Encourage the patient to make good food choices and use the exercise bicycle regularly (5) Hypertension 10/08 -Continue outpatient antihypertensives -Monitor blood pressure (6) Hypothyroidism 10/08 -TSH within normal limits -Continue home dosing of levothyroxine Risk Factors Assessment : Yes /single/: Yes Higher / Fall in social status: No Access to guns: No Health problems: Yes Mental Health Diagnoses: Yes Previous attempt: Yes Previous psychiatric stay: Yes Hopelessness: No Smoker: No Protective Factors Assessment Congregation beliefs: Yes : No Responsible for young children: No Employed: Yes Stable relationships: Yes Supportive family: Yes Good rapport with provider: Yes Absence of risk factors above: Yes (risk factors were mitigated by admission to the inpatient unit, adjusting medications to target mood, psychotic, and anxiety symptoms, involving her in groups and therapy on the unit, working on healthy coping skills any discharge safety plan, and coordinating care with her outpatient providers and supports. The patient's mood has improved, she is denying thoughts of harming herself and feels able to cope with her symptoms at their current level, and is requesting discharge. As she is no longer at acute risk of harm to herself, she can be discharged and managed as an outpatient at this time.) Day of Discharge Assessment Hospital course: On admission, outpatient medications were continued with the exception of lamotrigine, which was increased to 50 mg daily, and later increased to 75 mg daily. The following day, her sertraline was decreased from 300 mg daily to 200 mg daily, as the higher dose had not been more effective. She required frequent when necessary medications (Navane and clonazepam) for anxiety and command auditory hallucinations. Her scheduled Navane dosing was adjusted towards bedtime, to try to target racing thoughts which were worse at night. She had good support from family and friends, attended and participated in groups, and was engaged in her treatment. She had some difficulty with the Mother's Day holiday, missing her mother who recently. Appetite and sleep were observed to be good, and she performed her ADLs independently. Date of discharge assessment: Patient was seen & assessed interval progress reviewed with Treatment Team. Staff report she has denied thoughts of harming herself for the past several days. She continues to attend and participate in groups, and had a good visit with a friend. She rates her mood a 4 out of 10. She continues to have intermittent auditory hallucinations of voices telling her to hurt herself, last yesterday, asked for Navane which helped, and did not act on them. She last harmed herself over the weekend, when she scratched her arms superficially. She asked for clonazepam last night when she felt anxious with racing thoughts, and it helped. Sleep was impaired by racing thoughts, woke up with them, but was able to go back to sleep. She feels tired this morning, but is going to go to groups, and then hopes to be discharged today, wanting to " get back to my routine before the weekend." Appetite is good. Denies side effects to medications. She is able to review the coping skills that she has been working on and her discharge safety plan. She feels ready to return home, and states treatment has been helpful. Overweight white female appearing stated age. Casually dressed and adequately groomed. Calm and cooperative. Seated in NAD, with fair eye contact and no abnormal movements. Speech is normal rate, volume, and tone. Mood is "better, " and affect is mildly anxious, stable and congruent. Thoughts are linear, logical and goal directed. The patient denied suicidal and homicidal ideation and was able to safety plan. No paranoia, delusions, or hallucinations at this time, and did not appear to be responding to internal stimuli. Cognition was grossly intact. Alert and oriented to person, place and time. Intelligence is consistent with level of education. Insight and and judgment are good. Laboratory Test 10/07/16 17:32 10/07/16 17:55 10/15/16 08:14 10/16/16 08:25 White Blood Count 11.52 Red Blood Count 4.88 Hemoglobin 13.4 Hematocrit 38.6 Mean Corpuscular Volume 79.1 Mean Corpuscular Hemoglobin 27.5 Mean Corpuscular Hemoglobin Concent 34.7 Platelet Count 246 Mean Platelet Volume 8.7 Neutrophils (%) (Auto) 64.3 Lymphocytes (%) (Auto) 29.7 Monocytes (%) (Auto) 5.9 Eosinophils (%) (Auto) 0.0 Basophils (%) (Auto) 0.0 Neutrophils # (Auto) 7.41 Lymphocytes # (Auto) 3.42 Monocytes # (Auto) 0.68 Eosinophils # (Auto) 0.00 Basophils # (Auto) 0.00 RDW Standard Deviation 38.5 RDW Coefficient of Variation 13.5 Immature Granulocyte % (Auto) 0.1 Immature Granulocyte # (Auto) 0.01 Sodium Level 133 Potassium Level 4.1 Chloride Level 99 Carbon Dioxide Level 27 Anion Gap 7.0 Blood Urea Nitrogen 16 Creatinine 0.47 Estimated GFR () 136.3 Estimated GFR (Non- 117.6 BUN/Creatinine Ratio 33.7 Random Glucose 95 Calcium Level 9.2 Total Bilirubin 0.4 Direct Bilirubin 0.1 Aspartate Amino Transferase (AST) 7 Alanine Aminotransferase (ALT) 22 Alkaline Phosphatase 68 Total Protein 7.5 Albumin 4.3 Thyroid Stimulating Hormone (TSH) 1.240 Ethyl Alcohol mg/dL < 3.0 Urine Color YELLOW Urine Appearance CLEAR Urine pH 5.0 Urine Specific Crane 1.009 Urine Protein NEG Urine Glucose (UA) NEG Urine Ketones NEG Urine Occult Blood NEG Urine Nitrite NEG Urine Bilirubin NEG Urine Urobilinogen NEG Urine Leukocyte Esterase SMALL Urine WBC (Auto) 5-10 Urine RBC (Auto) 0-4 Urine Hyaline Casts (Auto) 1-5 Urine Epithelial Cells (Auto) 10-20 Urine Bacteria (Auto) 2+ Urine Opiates Screen NEG Urine Methadone, Qualitative NEG Urine Barbiturates NEG Urine Phencyclidine (PCP) Level NEG Ur Amphetamine/Methamphetamine NEG MDMA (Ecstasy) Screen NEG Urine Benzodiazepines Screen NEG Urine Cocaine Metabolite NEG Urine Marijuana (THC) NEG POC Glucose 98 92 Total Time Total Time Spent (min): Greater than 30 minutes Total Time Included: examination of the patient, discharge planning, medication reconciliation, communication with other providers (her outpatient provider, Kassandra VALERIO) Tobacco Cessation at Discharge Smoking Status: Never Smoker FDA approved Prescription: non-smoker Antipsychotic Meds Rationale The patient has failed at least 3 trials of antipsychotic monotherapy (clozapine , Saphris, and lurasidone).. Problem Qualifiers (1) Type 2 diabetes mellitus: Diabetes mellitus complication status: without complication Diabetes mellitus shelter insulin use: without intermediate accountant use Qualified Codes: E11.9 - Type 2 diabetes mellitus without complications (2) Hypertension: Hypertension type: essential hypertension Qualified Codes: I10 - Essential ( primary) hypertension
[2016-10-16] MEDS: THIOTHIXENE 5 MG CAP PO SCH (11:47)
== END 2016-10-16 12:42 | disposition home or self-care (01) | DRG 885 ==
LOC: ENRESERVTM → ENRESERVDT → C.EDB 16:07 → C.MHU 20:03
PROVIDERS: ADMIT Student in an Organized Health Care Education/Training Program; ATTEND Psychiatry & Neurology Psychiatry
DX: F25.1 Schizoaffective disorder, depressive type (principal); E66.9 Obesity, unspecified; E78.5 Hyperlipidemia, unspecified; E11.9 Type 2 diabetes mellitus without complications; I10 Essential (primary) hypertension; E03.9 Hypothyroidism, unspecified; Z79.899 Other long term (current) drug therapy; Z79.84 Long term (current) use of oral hypoglycemic drugs; Z81.8 Family history of other mental and behavioral disorders; Z68.35 Body mass index [BMI] 35.0-35.9, adult

== ENCOUNTER 2016-12-17 15:45 | Inpatient (IN) | payer OTHER ==
[~2016-12-17] VITALS: Ht 170.2 cm; Wt 96.0 kg
[~2016-12-17 15:45] MED LIST changes: -ATOR-14 PO; -BENZ-89 PO; -CHOL100010 PO; -CLOZ100T18 PO; -CLOZ25TA2 PO; -DIPH25TA24 PO; -DPRSCR15 TOP; +EST1 PO; +LEVO125T4 PO; -LEVO125T5 PO; +LMC25 PO; +LPT10 PO; -LTD/40 PO; +LURA80TA PO; +MISCCAP80 PO; -PRM625 PO; +[UNRECOGNIZED DRUG - CODE] PO
[2016-12-17] MEDS ORDERED: LAMO100T16 PO (16:27)
[2016-12-17 16:40] LABS: COMPLETE YES; HEMATOCRIT 36.6 % (37-47); IG% 0.2 %; LYMPH % 36.1 %; LYMPH ABS # 3.43 K/uL (1.2-3.4); MEAN CELL VOLUME 80.1 fL (80-100); MEAN CORPUSCULAR HEMOGLOBIN 27.1 pg (25-34); MEAN CORPUSCULAR HGB CONC 33.9 g/dl (32-36); MEAN PLATELET VOLUME 8.2 fL (7.4-10.4); MONO % 7.8 %; NEUT % 55.9 %; PLATELET COUNT 219 K/uL (130-400); RED BLOOD COUNT 4.57 M/uL (4.2-5.4); WHITE BLOOD COUNT 9.51 K/uL (4.8-10.8)
[2016-12-17 16:54] LABS: URINE APPEARANCE CLEAR (CLEAR); URINE BILIRUBIN NEG (NEG); URINE COLOR YELLOW; URINE NITRITE NEG (NEG); URINE PH 6.5 (4.5-7.5); URINE SPECIFIC GRAVITY 1.006 (1.000-1.030); UROBILINOGEN NEG (NEG)
[2016-12-17 16:57] LABS: MANUAL MICROSCOPIC REQUIRED? NO; REVIEW REQ? YES
[2016-12-17 17:09] LABS: BENZODIAZEPINE, URINE NEG (NEG); COCAINE,URINE NEG (NEG); PHENCYCLIDINE, URINE NEG (NEG)
[2016-12-17 17:10] LABS: BLOOD UREA NITROGEN 13 mg/dl (7-18); BUN/CREATININE RATIO 23.7 (10-20); CALCIUM 8.9 mg/dl (8.5-10.1); CARBON DIOXIDE 27 mmol/L (21-32); CHLORIDE 100 mmol/L (98-107); CREATININE 0.54 mg/dl (0.60-1.20); GLUCOSE 86 mg/dl (70-99); POTASSIUM 3.9 mmol/L (3.5-5.1); SODIUM 133 mmol/L (136-145)
[2016-12-17 17:21] LABS: ALKALINE PHOSPHATASE 50 U/L (45-117); ALT/SGPT 17 U/L (12-78); AST/SGOT 10 U/L (15-37)
[2016-12-17] MEDS ORDERED: NURSING VERBAL MED ORDER ONE (17:45)
[2016-12-17] MEDS ORDERED: MAGNESIUM HYDROXIDE SUSP 30 ML UDC PO PRN (18:00)
[2016-12-17] MEDS ORDERED: ACETAMINOPHEN 325 MG TAB PO PRN (18:00)
[2016-12-17] MEDS ORDERED: hydrOXYzine HCL 25 MG TAB PO PRN (18:00)
[2016-12-17] MEDS ORDERED: SODIUM CHLORIDE 0.65% NA SOLN 45 ML (OCEAN) PRN (18:00)
[2016-12-17] MEDS ORDERED: ALUMINUM/MAGNESIUM SUSP 30 ML UDC PO PRN (18:00)
[2016-12-17 18:16] VITALS: BP 118/58; PULSE 70; TEMP 37.2; BMI 33.1
[2016-12-17 18:39] VITALS: O2SAT 98
[2016-12-17] MEDS: METFORMIN HCL 500 MG TAB PO SCH (18:41)
--- NOTE | 2016-12-17 19:11 | EMERGENCY ROOM VISIT NOTE ---
History Report prepared by Caty: Jannet Porter Under the Supervision of: Dr. Donn Mcgowan M.D. First contact with patient: 16:00 Chief Complaint: MENTAL HEALTH EVALUATION Stated Complaint: MENTAL HEALTH,SUICIDAL History of Present Illness The patient is a 46 year old female who presents to the Emergency Room for a mental health evaluation after feeling worsening depression beginning 1 week ago. The patient states that she has a history of depression and has been seen both at [address] [place] [address] and [facility] previously. She reports that she began to feel worsening depression last week and told her psychiatrist about suicidal thoughts that she was having last week. She notes that she saw her psychiatrist again yesterday and she was concerned with her thoughts and wanted her to be seen here in the ED to be evaluated. Pt denies LOC, headache, fevers, chills, diaphoresis, visual changes, neck pain, chest pain, breathing difficulties, nausea, vomiting, abdominal pain, back pain, melena, hematochezia, urinary symptoms, numbness, weakness, lymphadenopathy, rash, or other complaints. Source of History: patient Onset: 1 week ago Position: other (mental star) Quality: other (depression) Timing: constant, worsening Note: Pt admits to suicidal ideation. Review of Systems See HPI for pertinent positives and negatives. A total of ten systems were reviewed and were otherwise negative. Past Medical & Surgical Medical Problems: (1) Asthma (2) Asthma with status asthmaticus (3) Bacterial pneumonia (4) Class II obesity (5) Depression (6) Diabetes mellitus type 2 (7) Dyslipidemia (8) Hypertension (9) Hypothyroidism (10) Schizoaffective disorder, depressive type (11) Suicidal ideation (12) Type 2 diabetes mellitus Family History FH: cancer FH: heart disease Hypertension Kidney disease Kidney stones Seizures Social History Smoking Status: Former Smoker Alcohol Use: none Drug Use: none Marital Status: single Housing Status: lives alone Occupation Status: disabled Current/Historical Medications Scheduled Atorvastatin (Atorvastatin Calcium), 10 MG PO HS Cholecalciferol (Cvs D3), 5,000 INTER.UNIT PO DAILY Clonazepam (Klonopin), 0.5 MG PO TID Desmopressin Acetate (Ddavp), 0.2 MG PO HS Estradiol (Estradiol), 1 MG PO QAM Lamotrigine (Lamictal), 100 MG PO QAM Levothyroxine Sodium (Levothyroxine Sodium), 125 MCG PO QAM Losartan Potassium (Cozaar), 50 MG PO QAM Lurasidone Hcl (Latuda), 2 TAB PO DAILYBD Metformin Hcl (Glucophage), 500 MG PO QAM Metformin Hcl (Glucophage), 1,000 MG PO QPM Montelukast Sodium (Singulair), 10 MG PO HS Multivitamin (Multivitamin), 1 TAB PO DAILY Probiotic Product (Probiotic), 1 CAP PO DAILY Sertraline Hcl (Zoloft), 200 MG PO QAM Thiothixene (Navane), 10 MG PO TID Scheduled PRN Clonazepam (Klonopin), 0.5 MG PO DAILY PRN for Anxiety Thiothixene (Navane), 10 MG PO DAILY PRN for Hallucinations Allergies Coded Allergies: Chlorpromazine (Verified Allergy, Mild, LIGHTHEADED SHUFFLING GAIT, ) Aspirin (Verified Allergy, Unknown, 12/17/16) Doxycycline (Unverified Allergy, Unknown, HEARING VOICES, 12/17/16) Levofloxacin (Verified Allergy, Unknown, ?ALLERGIC TO LEVAQUIN?, 12/17/16) NSAIDs (Verified Allergy, Unknown, ., 12/17/16) Penicillins (Verified Allergy, Unknown, RASH, 12/17/16) Prednisone (Verified Allergy, Unknown, ., 12/17/16) Quinine (Verified Allergy, Unknown, 12/17/16) Physical Exam Vital Signs Date Time Temp Pulse Resp B/P (MAP) Pulse Ox O2 Delivery O2 Flow Rate FiO2 12/17/16 17:36 37.2 70 18 118/58 97 Room Air 12/17/16 15:46 37.2 77 18 149/87 97 Room Air Physical Exam GENERAL: Awake, alert, well-appearing, in no distress HENT: Normocephalic, atraumatic. Oropharynx unremarkable. EYES: Normal conjunctiva. Sclera non-icteric. NECK: Supple. No nuchal rigidity. FROM. No JVD. RESPIRATORY: Clear to auscultation. CARDIAC: Regular rate, normal rhythm. Extremities warm and well perfused. Pulses equal. ABDOMEN: Soft, non-distended. No tenderness to palpation. No rebound or guarding. No masses. RECTAL: Deferred. MUSCULOSKELETAL: Chest examination reveals no tenderness. The back is symmetrical on inspection without obvious abnormality. There is no CVA tenderness to palpation. No joint edema. LOWER EXTREMITIES: Calves are equal size bilaterally and non-tender. No edema. No discoloration. NEURO: Normal sensorium. No sensory or motor deficits noted. SKIN: No rash or jaundice noted. Healing abrasions noted to both forearms. PSYCH: Suicidal ideations, depressed mood. Medical Decision & Procedures Laboratory Results 12/17/16 16:27 Red Blood Count 4.57, Mean Corpuscular Volume 80.1, Mean Corpuscular Hemoglobin 27.1, Mean Corpuscular Hemoglobin Concent 33.9, Mean Platelet Volume 8.2, Neutrophils (%) (Auto) 55.9, Lymphocytes (%) (Auto) 36.1, Monocytes (%) (Auto) 7.8, Eosinophils (%) (Auto) 0.0, Basophils (%) (Auto) 0.0, Neutrophils # (Auto) 5.32, Lymphocytes # (Auto) 3.43, Monocytes # (Auto) 0.74, Eosinophils # (Auto) 0.00, Basophils # (Auto) 0.00 12/17/16 16:27 Test 12/17/16 00:00 12/17/16 16:11 12/17/16 16:27 Urine Color YELLOW Urine Appearance CLEAR (CLEAR) Urine pH 6.5 (4.5-7.5) Urine Specific [place] 1.006 (1.000-1.030) Urine Protein NEG (NEG) Urine Glucose (UA) NEG (NEG) Urine Ketones NEG (NEG) Urine Occult Blood NEG (NEG) Urine Nitrite NEG (NEG) Urine Bilirubin NEG (NEG) Urine Urobilinogen NEG (NEG) Urine Leukocyte Esterase MODERATE (NEG) Urine WBC (Auto) 5-10 /hpf (0-5) Urine RBC (Auto) 0-4 /hpf (0-4) Urine Hyaline Casts (Auto) 0 /lpf (0-5) Urine Epithelial Cells (Auto) 10-20 /lpf (0-5) Urine Bacteria (Auto) 1+ (NEG) Urine Opiates Screen NEG (NEG) Urine Methadone, Qualitative NEG (NEG) Urine Barbiturates NEG (NEG) Urine Phencyclidine (PCP) Level NEG (NEG) Ur Amphetamine/Methamphetamine NEG (NEG) MDMA (Ecstasy) Screen NEG (NEG) Urine Benzodiazepines Screen NEG (NEG) Urine Cocaine Metabolite NEG (NEG) Urine Marijuana (THC) NEG (NEG) Bedside Glucose 100 mg/dl (70-90) White Blood Count 9.51 K/uL (4.8-10.8) Red Blood Count 4.57 M/uL (4.2-5.4) Hemoglobin 12.4 g/dL (12.0-16.0) Hematocrit 36.6 % (37-47) Mean Corpuscular Volume 80.1 fL (80-100) Mean Corpuscular Hemoglobin 27.1 pg (25-34) Mean Corpuscular Hemoglobin Concent 33.9 g/dl (32-36) Platelet Count 219 K/uL (130-400) Mean Platelet Volume 8.2 fL (7.4-10.4) Neutrophils (%) (Auto) 55.9 % Lymphocytes (%) (Auto) 36.1 % Monocytes (%) (Auto) 7.8 % Eosinophils (%) (Auto) 0.0 % Basophils (%) (Auto) 0.0 % Neutrophils # (Auto) 5.32 K/uL (1.4-6.5) Lymphocytes # (Auto) 3.43 K/uL (1.2-3.4) Monocytes # (Auto) 0.74 K/uL (0.11-0.59) Eosinophils # (Auto) 0.00 K/uL (0-0.5) Basophils # (Auto) 0.00 K/uL (0-0.2) RDW Standard Deviation 38.7 fL (36.4-46.3) RDW Coefficient of Variation 13.4 % (11.5-14.5) Immature Granulocyte % (Auto) 0.2 % Immature Granulocyte # (Auto) 0.02 K/uL (0.00-0.02) Anion Gap 6.0 mmol/L (3-11) Estimated GFR () 129.3 Estimated GFR (Non- 111.6 BUN/Creatinine Ratio 23.7 (10-20) Calcium Level 8.9 mg/dl (8.5-10.1) Total Bilirubin 0.3 mg/dl (0.2-1) Direct Bilirubin 0.1 mg/dl (0-0.2) Aspartate Amino Transf (AST/SGOT) 10 U/L (15-37) Alanine Aminotransferase (ALT/SGPT) 17 U/L (12-78) Alkaline Phosphatase 50 U/L (45-117) Total Protein 6.8 gm/dl (6.4-8.2) Albumin 4.0 gm/dl (3.4-5.0) Thyroid Stimulating Hormone (TSH) 2.500 uIu/ml (0.300-4.500) Ethyl Alcohol mg/dL < 3.0 mg/dl (0-3) Laboratory results reviewed by me ED Course 1616: The patient was evaluated in room A8. A complete history and physical exam was performed. 1809: The patient was accepted at [address] [place] [address]. She will be further evaluated there for psychiatric management and care. Medical Decision Triage Nursing notes reviewed. The patient's presentation and history were concerning for suicidal ideation and history of mood disorder. Etiologies such as mood disorder, toxicologic, infection, hypoglycemia, electrolyte abnormalities, cardiac sources, intracerebral event, neurologic, as well as others were entertained. The patient was evaluated. She had no medical complaints. She notes her mood has been poor for the last week. She was seen as an outpatient. Her provider referred her to the emergency department. Blood work was done and was unremarkable. Urinalysis revealed some bacteria. The patient denies any urinary symptoms. A culture was ordered. 3 S. was made aware. Physical examination did not reveal any medical issues. The patient was evaluated with 3 S. She was accepted for voluntary admission and further treatment as an inpatient. Medication Reconciliation: I attest that I have personally reviewed the patient' s current medication list Patient was found to have a slightly elevated blood pressure due to circumstances. I do not believe that the patient requires hypertension monitoring. Impression Primary Impression: Suicidal ideation Scribe Attestation The scribe's documentation has been prepared under my direction and personally reviewed by me in its entirety. I confirm that the note above accurately reflects all work, treatment, procedures, and medical decision making performed by me. Departure Information Dispostion Mental Health Acute Care Referrals Carlos Rodgers D.O.Int.Med. (PCP) Patient Instructions My [facility]
[2016-12-17] MEDS ORDERED: METFORMIN HCL 500 MG TAB PO SCH (21:00)
[2016-12-17] MEDS: DESMOPRESSIN ACETATE 0.1 MG TAB PO SCH (21:11)
[2016-12-17] MEDS: MONTELUKAST SOD 10 MG TAB PO SCH (21:12)
[2016-12-17] MEDS: CLONAZEPAM 0.5 MG TAB PO SCH (21:12)
[2016-12-17] MEDS: THIOTHIXENE 5 MG CAP PO SCH (21:12)
[2016-12-17] MEDS: ATORVASTATIN 10 MG TAB PO SCH (21:12)
[2016-12-17] MEDS: THIOTHIXENE 5 MG CAP PO PRN (21:25)
[2016-12-18 06:58] VITALS: BP_SYST 130; BP_SYST 132; BP_DIAS 81; BP_DIAS 91; PULSE 65; PULSE 79; TEMP 36.8
[2016-12-18] MEDS ORDERED: SERTRALINE HCL 100 MG TAB PO SCH (09:00)
[2016-12-18] MEDS: METFORMIN HCL 500 MG TAB PO SCH ×2 (09:06→17:28)
[2016-12-18] MEDS: ESTRADIOL 1 MG TAB PO SCH (09:06)
[2016-12-18] MEDS: CLONAZEPAM 0.5 MG TAB PO SCH ×3 (09:06→20:39)
[2016-12-18] MEDS: CHOLECALCIFEROL 1000 INTER.UNIT TAB PO SCH (09:06)
[2016-12-18] MEDS: LACTOBACILLUS ACIDOPHILUS (FLORANEX) TAB PO SCH (09:06)
[2016-12-18] MEDS: LEVOTHYROXINE 125 MCG TAB PO SCH (09:06)
[2016-12-18] MEDS: LOSARTAN POTASSIUM 50 MG TAB PO SCH (09:06)
[2016-12-18] MEDS: THIOTHIXENE 5 MG CAP PO SCH ×3 (09:07→20:41)
[2016-12-18] MEDS: MULTIVITAMIN TAB PO SCH (09:07)
[2016-12-18] MEDS ORDERED: ARIPIprazole TAB 5 MG TAB PO ONE (11:39)
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
[2016-12-18] MEDS ORDERED: LURASIDONE HCL 40 MG TAB PO SCH (16:00)
[2016-12-18] MEDS: LURASIDONE HCL 40 MG TAB PO SCH (17:25)
[2016-12-18] MEDS: DESMOPRESSIN ACETATE 0.1 MG TAB PO SCH (20:38)
[2016-12-18] MEDS: ATORVASTATIN 10 MG TAB PO SCH (20:40)
[2016-12-18] MEDS: MONTELUKAST SOD 10 MG TAB PO SCH (20:42)
[2016-12-18 23:26] VITALS: Ht 170.2 cm; Wt 96.0 kg
[2016-12-19 06:50] VITALS: BP_SYST 127; BP_SYST 131; BP_DIAS 80; BP_DIAS 81; PULSE 57; PULSE 71; TEMP 36.8
[2016-12-19] MEDS: LEVOTHYROXINE 125 MCG TAB PO SCH (08:42)
[2016-12-19] MEDS: METFORMIN HCL 500 MG TAB PO SCH ×2 (08:42→17:44)
[2016-12-19] MEDS: ARIPIprazole TAB 5 MG TAB PO SCH (08:42)
[2016-12-19] MEDS: LACTOBACILLUS ACIDOPHILUS (FLORANEX) TAB PO SCH (08:43)
[2016-12-19] MEDS: ESTRADIOL 1 MG TAB PO SCH (08:43)
[2016-12-19] MEDS: LOSARTAN POTASSIUM 50 MG TAB PO SCH (08:43)
[2016-12-19] MEDS: ESCITALOPRAM OXALATE 10 MG TAB PO SCH (08:44)
[2016-12-19] MEDS: CLONAZEPAM 0.5 MG TAB PO SCH ×3 (08:44→20:36)
[2016-12-19] MEDS: CHOLECALCIFEROL 1000 INTER.UNIT TAB PO SCH (08:45)
[2016-12-19] MEDS: MULTIVITAMIN TAB PO SCH (08:45)
[2016-12-19] MEDS: THIOTHIXENE 5 MG CAP PO SCH ×3 (08:45→20:37)
[2016-12-19] MEDS: SERTRALINE HCL 100 MG TAB PO SCH (08:45)
--- NOTE | 2016-12-19 09:33 | Psychiatric Progress Notes ---
Progress Note Date of Service Dec 19, 2016. Interval History 46 yo woman with schizoaffective disorder who has been in deterioration since her mother in June 2016. I have conferred with Dr. Urbina with respect to her medications, as she has been on many of these meds for years, at high doses, and they are not working. The patient is willing to make some rather sweeping changes since she is in a safe environment, and so will initiate the following changes: increase lamictal to 150 mg. daily, reduce latuda to 120 mg. daily and start abilify 2.5 mg. daily, taper zoloft to 100 mg. daily and start lexapro 10 mg. daily. Will continue klonopin and navane for now, but would like to taper both if we find success with the above changes. We will continue her medical meds, monitor BS's and encourage activity. We will coordinate with her other OP providers as well. At this time, the patient requires inpatient treatment due to the severity of her condition and the risk for self harm if discharged. Chief Complaint "I scratched myself last night. ". Subjective Patient was seen & assessed interval progress reviewed with Treatment Team. The patient said that she was having voices last night telling her to hurt herself. She did not know that she could ask for a prn and ended up scratching her rt forearm with her nails. She remains severely depressed, rating her mood a 1/10 and still having frequent SI. She is attending groups and to her ADL's, but then tends to isolate in her room. She is on the verge of tears throughout the interview and asks "Please keep me safe.". She has spoken with her father who has suggested that he come to [place] to spend some time with her after she gets out of the hospital, which Leisa thinks is a good idea. She continues to deny visual hallucinations. Review of Systems Constitutional: + fatigue ENT: No hearing loss, No unusual epistaxis, No nasal symptoms, No sore throat, No tinnitus, No dental problems, No trouble swallowing, No problem reported Respiratory: No cough, No sputum, No wheezing, No shortness of breath, No dyspnea on exertion, No dyspnea at rest, No hemoptysis, No problem reported Cardiovascular: No chest pain, No orthopnea, No PND, No edema, No claudication , No palpitations, No problem reported Abdomen: No pain, No nausea, No vomiting, No diarrhea, No constipation, No GI bleeding, No problem reported Musculoskeletal: No joint pain, No muscle pain, No swelling, No calf pain, No problem reported Neurologic: No memory loss, No paralysis, No weakness, No numbness/tingling, No vertigo, No balance problems, No problem reported Psychiatric: + depression symptoms (with SI) Integumentary: + problem reported (new scratch rt forearm) Sleep Information Total Hours of Sleep: 8.25 Meal Information Percent of Breakfast Consumed: 75 Percent of Lunch Consumed: 100 Percent of Dinner Consumed: 100 Mental Status Exam During interview pt is: alert and oriented, cooperative Appearance: appropriately dressed Eye contact is: good Motor behavior is: tremor, other (ambulates with a quad can for gait stability) Speech: normal in rate, rhythm & volume Affect: tearful, blunted, anxious Mood is: depressed, anxious Thought process: goal directed Thought content: reality based without delusions Suicidal thought are: present, Plan: present (to OD), Intent: denied Homicidal thoughts are: denied Hallucinations: auditory (of grandfather's voice telling her to hurt herself) Cognition: memory grossly intact, attention grossly intact, language grossly intact Intelligence estimated to be: average Insight: impaired Judgement: impaired Impression Leisa is adjusting to the structure of the unit. She remains severely depressed and suicidal with aud hallucinations. Medication adjustments have been initiated and anticipate that she will need to be in the hospital for a longer stay based on the rather sweeping changes were are making. Willl adjust Navane to 10 mg. in the afternoon and 20 mg. at HS Plan (1) Schizoaffective disorder, depressive type 12/18 - Increase lamictal to 150 mg. daily - Reduce Latuda to 120 mg. with dinner, and start Abilify 2.5 mg. daily. R/B /A reviewed and accepted including risk for TD - Reduce Zoloft to 100 mg. daily and start Lexapro 10 mg. daily. R/B/A reviewed and accepted - Continue navane both scheduled and prn, as well as Klonopin - Q 15 min checks for safety - Encourage participation in group and individual counseling - Coordinate with her OP supports - Family meeting if indicated - Encourage other tactile coping strategies to avoid scratching behaviors 12/19 - Change navane to 10 mg. afternoon and 20 mg. HS. (2) Type 2 diabetes mellitus 12/18 - BSG's daily - Continue home dose of metformin - Encourage activity 12/19 - FBS WNL at 93 (3) Hypertension 12/18 - Continue home dose of Cozaar - Monitor BP (4) Hypothyroidism 12/18 - TSH WNL at 2.5 - Continue home dose of levthyroxine (5) Dyslipidemia 12/18 - Continue home dose of Lipitor - Last FLP done in Feb 2016. Will order 12/19 - FLP WNL (6) Class II obesity 12/18 - Encourage walking or exercise bike (7) UTI (urinary tract infection) 12/18 - UA positive for gram negative bacilli. She denies being symptomatic. Will await sensitivity 12/19 - Sensitivity back. Sensitive to bactrim and she says that she has been on this in the past without problems. Has been reviewed with Dr. Urbina Discharge / Aftercare Planning Primary Care Physician: Name: Dr Tam Appointment Notes: Patient states this is a new provider, will be seeing him 07/20 Psychiatrist: Name: Kassandra Hay Therapist: Name: Lamar Miller Patient Relations Coordinator: Name: Ramiro Beckailyn Visit Code E&M Code: 95810 Inventory Assets Strengths: Support of family, many outpatient mental health providers, spirituality Needs: To learn to be assertive Risk Factors Assessment : Yes /single/: Yes Higher / Fall in social status: No Health problems: Yes Mental Health Diagnoses: Yes Substance use disorders: No Previous attempt: Yes Family history of suicide: Yes Previous psychiatric stay: Yes Hopelessness: No Smoker: No Protective Factors Assessment Alevism beliefs: Yes : No Responsible for young children: No Employed: Yes Stable relationships: Yes Supportive family: Yes Good rapport with provider: Yes Data Vital Signs Last 24 Hrs: Date Time Temp Pulse Resp B/P (MAP) Pulse Ox O2 Delivery O2 Flow Rate FiO2 12/19/16 06:50 36.8 57 16 127/81 71 131/80 Meds Administered Last 24 Hrs: Meds Administered (Past 24Hrs) Medications (Trade) Dose Ordered Sig/Christofer Route Start Time Stop Time Status Last Admin Dose Admin Atorvastatin Calcium (Lipitor Tab) 10 mg HS PO 12/17/16 21:00 01/16/17 20:59 12/18/16 20:40 10 MG Clonazepam (Klonopin Tab) 0.5 mg TID PO 12/17/16 21:00 01/16/17 20:59 12/19/16 08:44 0.5 MG Estradiol (Estrace Tab) 1 mg QAM PO 12/18/16 09:00 01/17/17 08:59 12/19/16 08:43 1 MG Lamotrigine (Lamictal Tab) 100 mg QAM PO 12/18/16 09:00 12/18/16 11:44 DC 12/18/16 09:06 100 MG Levothyroxine Sodium (Synthroid Tab) 125 mcg DAILYBB PO 12/18/16 07:00 01/17/17 06:59 12/19/16 08:42 125 MCG Losartan Potassium (coZAAR TAB) 50 mg QAM PO 12/18/16 09:00 01/17/17 08:59 12/19/16 08:43 50 MG Lurasidone HCl (Latuda Tab) 160 mg DAILYBD PO 12/18/16 16:00 12/18/16 16:00 DC 12/17/16 21:13 160 MG Metformin HCl (Glucophage Tab) 500 mg DAILY@0800 PO 12/18/16 08:00 01/17/17 07:59 12/19/16 08:42 500 MG Montelukast Sodium (Singulair Tab) 10 mg HS PO 12/17/16 21:00 01/16/17 20:59 12/18/16 20:42 10 MG Multivitamins (Multivitamin Tab) 1 tab DAILY PO 12/18/16 09:00 01/17/17 08:59 12/19/16 08:45 1 TAB Sertraline HCl (Zoloft Tab) 200 mg QAM PO 12/18/16 09:00 12/18/16 11:44 DC 12/18/16 09:07 200 MG Thiothixene (Navane Cap) 10 mg DAILY PRN PO 12/17/16 18:30 01/16/17 18:29 12/17/16 21:25 10 MG Thiothixene (Navane Cap) 10 mg TID PO 12/17/16 21:00 01/16/17 20:59 12/19/16 08:45 10 MG Cholecalciferol (Vitamin D Tab) 5,000 inter.unit DAILY PO 12/18/16 09:00 01/17/17 08:59 12/19/16 08:45 5,000 INTER.UNIT Desmopressin Acetate (Desmopressin Acetate) 0.2 mg HS PO 12/17/16 21:00 01/16/17 20:59 12/18/16 20:38 0.2 MG Lactobacillus Acidophilus (Floranex Tab) 1 tab DAILY PO 12/18/16 09:00 01/17/17 08:59 12/19/16 08:43 1 TAB Metformin HCl (Glucophage Tab) 1,000 mg DAILY@1800 PO 12/17/16 18:41 01/16/17 18:40 12/18/16 17:28 1,000 MG Lamotrigine (Lamictal Tab) 150 mg QAM PO 12/19/16 09:00 01/18/17 08:59 12/19/16 08:44 150 MG Lamotrigine (Lamictal Tab) 50 mg 1139 ONCE PO 12/18/16 11:39 12/18/16 11:47 DC 12/18/16 12:18 50 MG Lurasidone HCl (Latuda Tab) 120 mg DAILY@1700 PO 12/18/16 17:00 01/17/17 16:59 12/18/16 17:25 120 MG Sertraline HCl (Zoloft Tab) 100 mg QAM PO 12/19/16 09:00 01/18/17 08:59 12/19/16 08:45 100 MG Escitalopram Oxalate (Lexapro Tab) 10 mg QAM PO 12/19/16 09:00 01/18/17 08:59 12/19/16 08:44 10 MG Aripiprazole (Abilify Tab) 2.5 mg QAM PO 12/19/16 09:00 01/18/17 08:59 12/19/16 08:42 2.5 MG Aripiprazole (Abilify Tab) 2.5 mg 1139 ONCE PO 12/18/16 11:39 12/18/16 11:47 DC 12/18/16 12:18 2.5 MG Lab Results Last 24 Hrs: Last 24 Hours Test 12/19/16 07:05 Fasting Glucose 89 mg/dl Triglycerides Level 61 mg/dl Cholesterol Level 171 mg/dl HDL Cholesterol 57 mg/dl LDL Cholesterol, Calculated 102 mg/dl VLDL Cholesterol, Calculated 12 mg/dl Cholesterol/HDL Ratio 3.0 Problem Qualifiers (1) Type 2 diabetes mellitus: Diabetes mellitus complication status: without complication Diabetes mellitus assistant plant manager insulin use: without custodial use Qualified Codes: E11.9 - Type 2 diabetes mellitus without complications (2) Hypertension: Hypertension type: unspecified Qualified Codes: I10 - Essential (primary) hypertension (3) Hypothyroidism: Hypothyroidism type: unspecified Qualified Codes: E03.9 - Hypothyroidism, unspecified
[2016-12-19] MEDS ORDERED: SULFAMETHOXAZOLE/TRIMETHOPRIM DS 800/160MG TAB PO ONE (11:00)
[2016-12-19] MEDS: LURASIDONE HCL 40 MG TAB PO SCH (17:42)
[2016-12-19] MEDS: SULFAMETHOXAZOLE/TRIMETHOPRIM DS 800/160MG TAB PO SCH (20:34)
[2016-12-19] MEDS: DESMOPRESSIN ACETATE 0.1 MG TAB PO SCH (20:35)
[2016-12-19] MEDS: ATORVASTATIN 10 MG TAB PO SCH (20:36)
[2016-12-19] MEDS: MONTELUKAST SOD 10 MG TAB PO SCH (20:37)
[2016-12-20 06:48] VITALS: BP_SYST 136; BP_SYST 142; BP_DIAS 82; BP_DIAS 83; PULSE 65; PULSE 67; TEMP 36.8
[2016-12-20] MEDS: LOSARTAN POTASSIUM 50 MG TAB PO SCH (09:03)
[2016-12-20] MEDS: ARIPIprazole TAB 5 MG TAB PO SCH (09:03)
[2016-12-20] MEDS: LEVOTHYROXINE 125 MCG TAB PO SCH (09:03)
[2016-12-20] MEDS: ESTRADIOL 1 MG TAB PO SCH (09:03)
[2016-12-20] MEDS: METFORMIN HCL 500 MG TAB PO SCH ×2 (09:03→17:28)
[2016-12-20] MEDS: LACTOBACILLUS ACIDOPHILUS (FLORANEX) TAB PO SCH (09:04)
[2016-12-20] MEDS: CHOLECALCIFEROL 1000 INTER.UNIT TAB PO SCH (09:05)
[2016-12-20] MEDS: SULFAMETHOXAZOLE/TRIMETHOPRIM DS 800/160MG TAB PO SCH ×2 (09:05→21:35)
[2016-12-20] MEDS: MULTIVITAMIN TAB PO SCH (09:05)
[2016-12-20] MEDS: ESCITALOPRAM OXALATE 10 MG TAB PO SCH (09:05)
[2016-12-20] MEDS: SERTRALINE HCL 100 MG TAB PO SCH (09:06)
[2016-12-20] MEDS: CLONAZEPAM 0.5 MG TAB PO SCH ×3 (09:13→21:39)
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
[2016-12-20] MEDS ORDERED: ARIPIprazole TAB 5 MG TAB PO ONE (11:30)
[2016-12-20] MEDS ORDERED: ESCITALOPRAM OXALATE 10 MG TAB PO ONE (11:30)
[2016-12-20] MEDS: THIOTHIXENE 5 MG CAP PO SCH ×2 (14:17→21:37)
--- NOTE | 2016-12-20 14:23 | Psych Management Progress Note ---
Psychiatry Miscellaneous Date of Service: Dec 20, 2016. Patient seen, MS assessed. Rates mood as anxious. Cooperative with care and treatment plan as outlined by COURT STENOGRAPHER. Encouraged participation in therapeutic activities. Reviewed EKG. Participated in treatment team.
[2016-12-20] MEDS: LURASIDONE HCL 40 MG TAB PO SCH (17:28)
[2016-12-20] MEDS: DESMOPRESSIN ACETATE 0.1 MG TAB PO SCH (21:36)
[2016-12-20] MEDS: ATORVASTATIN 10 MG TAB PO SCH (21:36)
[2016-12-20] MEDS: MONTELUKAST SOD 10 MG TAB PO SCH (21:37)
[2016-12-21 06:57] VITALS: BP_SYST 130; BP_SYST 136; BP_DIAS 82; BP_DIAS 85; PULSE 65; PULSE 77; TEMP 36.3
[2016-12-21] MEDS: SERTRALINE HCL 100 MG TAB PO SCH (08:43)
[2016-12-21] MEDS: LACTOBACILLUS ACIDOPHILUS (FLORANEX) TAB PO SCH (08:43)
[2016-12-21] MEDS: ESCITALOPRAM OXALATE 10 MG TAB PO SCH (08:43)
[2016-12-21] MEDS: ARIPIprazole TAB 5 MG TAB PO SCH (08:44)
[2016-12-21] MEDS: METFORMIN HCL 500 MG TAB PO SCH ×2 (08:44→17:24)
[2016-12-21] MEDS: MULTIVITAMIN TAB PO SCH (08:44)
[2016-12-21] MEDS: LOSARTAN POTASSIUM 50 MG TAB PO SCH (08:45)
[2016-12-21] MEDS: CHOLECALCIFEROL 1000 INTER.UNIT TAB PO SCH (08:45)
[2016-12-21] MEDS: SULFAMETHOXAZOLE/TRIMETHOPRIM DS 800/160MG TAB PO SCH ×2 (08:45→21:06)
[2016-12-21] MEDS: ESTRADIOL 1 MG TAB PO SCH (08:45)
[2016-12-21] MEDS: LEVOTHYROXINE 125 MCG TAB PO SCH (08:45)
[2016-12-21] MEDS: CLONAZEPAM 0.5 MG TAB PO SCH ×3 (08:49→21:06)
--- NOTE | 2016-12-21 12:26 | Psychiatric Progress Notes ---
Progress Note Date of Service Dec 21, 2016. Interval History 46 yo woman with schizoaffective disorder who has been in deterioration since her mother in June 2016. I have conferred with Dr. Urbina with respect to her medications, as she has been on many of these meds for years, at high doses, and they are not working. The patient is willing to make some rather sweeping changes since she is in a safe environment, and so will initiate the following changes: increase lamictal to 150 mg. daily, reduce latuda to 120 mg. daily and start abilify 2.5 mg. daily, taper zoloft to 100 mg. daily and start lexapro 10 mg. daily. Will continue klonopin and navane for now, but would like to taper both if we find success with the above changes. We will continue her medical meds, monitor BS's and encourage activity. We will coordinate with her other OP providers as well. At this time, the patient requires inpatient treatment due to the severity of her condition and the risk for self harm if discharged. Chief Complaint "I'm not suicidal but I'm hearing voices". Subjective Patient was seen & assessed interval progress reviewed with Treatment Team. Patient is being cross tapered from Latuda to Abilify and from Zoloft to Lexapro. No self injury in the last 24 hours. Affect flat. Goals to attend to IADLs regularly. Has been rating moods quite low. On interview this morning she describes continued auditory hallucinations. She denies active suicidal ideation or impulses to harm herself in the last 24 hours. She does feel a little restless. She expresses apprehension about continuing her medication cross taper until is back on Friday. Review of Systems Neurologic: + problem reported (tremor) Integumentary: + new/changing skin lesions Sleep Information Total Hours of Sleep: 8.75 Meal Information Percent of Breakfast Consumed: 100 Percent of Lunch Consumed: 100 Percent of Dinner Consumed: 100 Mental Status Exam During interview pt is: alert and oriented, cooperative Appearance: appropriately dressed Eye contact is: good Motor behavior is: tremor, other (ambulates with a quad can for gait stability) Speech: normal in rate, rhythm & volume Affect: labile, anxious Mood is: depressed, anxious Thought process: goal directed, flight of ideas Thought content: reality based without delusions Suicidal thought are: denied, Plan: denied, Intent: denied Homicidal thoughts are: denied Hallucinations: auditory (of grandfather's voice telling her to hurt herself) Cognition: memory grossly intact, attention grossly intact, language grossly intact Intelligence estimated to be: average Insight: impaired Judgement: impaired Impression Leisa is tolerating the start of medication changes. Today we will further reduce Latuda to 80 mg. daily and increase Abilify to 5 mg. daily. Will also decrease Zoloft to 50 mg. and increase Lexapro to 15 mg. daily, continuing other meds. Will run an EKG for baseline and recheck sodium. Plan (1) Schizoaffective disorder, depressive type 12/18 - Increase lamictal to 150 mg. daily - Reduce Latuda to 120 mg. with dinner, and start Abilify 2.5 mg. daily. R/B /A reviewed and accepted including risk for TD - Reduce Zoloft to 100 mg. daily and start Lexapro 10 mg. daily. R/B/A reviewed and accepted - Continue navane both scheduled and prn, as well as Klonopin - Q 15 min checks for safety - Encourage participation in group and individual counseling - Coordinate with her OP supports - Family meeting if indicated - Encourage other tactile coping strategies to avoid scratching behaviors 12/19 - Change navane to 10 mg. afternoon and 20 mg. HS. 12/20 -Reduce Latuda to 80 mg. daily and increase Abilify to 5 mg. daily - Continue to taper Zoloft to 50 mg. daily and increase Lexapro to 15 mg. daily - EKG - Repeat sodium 12/21 - Watch restlessness in converting to Abilify. We'll also need to watch psychosis as Abilify may attenuate the antipsychotic effect of the residual Latuda and navane - Reviewed sodium of 135 yesterday which was up trending (2) Type 2 diabetes mellitus 12/18 - BSG's daily - Continue home dose of metformin - Encourage activity 12/19 - FBS WNL at 93 (3) Hypertension 12/18 - Continue home dose of Cozaar - Monitor BP (4) Hypothyroidism 12/18 - TSH WNL at 2.5 - Continue home dose of levthyroxine (5) Dyslipidemia 12/18 - Continue home dose of Lipitor - Last FLP done in Feb 2016. Will order 12/19 - FLP WNL (6) Class II obesity 12/18 - Encourage walking or exercise bike (7) UTI (urinary tract infection) 12/18 - UA positive for gram negative bacilli. She denies being symptomatic. Will await sensitivity 12/19 - Sensitivity back. Sensitive to bactrim and she says that she has been on this in the past without problems. Has been reviewed with Dr. Urbina Discharge / Aftercare Planning Primary Care Physician: Name: Dr Tam Appointment Notes: Patient states this is a new provider, will be seeing him 07/20 Psychiatrist: Name: Kassandra Hay Therapist: Name: Lamar Miller Software Applications Specialist: Name: Ramiro Santo Visit Code E&M Code: 09357 Inventory Assets Strengths: Support of family, many outpatient mental health providers, spirituality Needs: To learn to be assertive Risk Factors Assessment : Yes /single/: Yes Higher / Fall in social status: No Health problems: Yes Mental Health Diagnoses: Yes Substance use disorders: No Previous attempt: Yes Family history of suicide: Yes Previous psychiatric stay: Yes Hopelessness: No Smoker: No Protective Factors Assessment Buddhist beliefs: Yes : No Responsible for young children: No Employed: Yes Stable relationships: Yes Supportive family: Yes Good rapport with provider: Yes Data Vital Signs Last 24 Hrs: Date Time Temp Pulse Resp B/P (MAP) Pulse Ox O2 Delivery O2 Flow Rate FiO2 12/21/16 06:57 36.3 65 16 130/82 77 136/85 Meds Administered Last 24 Hrs: Meds Administered (Past 24Hrs) Medications (Trade) Dose Ordered Sig/Christofer Route Start Time Stop Time Status Last Admin Dose Admin Trimethoprim/ Sulfamethoxazole (Septra Ds 800/ 160MG Tab) 1 tab Q12 PO 12/19/16 21:00 12/23/16 23:00 12/21/16 08:45 1 TAB Thiothixene (Navane Cap) 10 mg DAILY@1400 PO 12/19/16 14:00 01/18/17 13:59 12/20/16 14:17 10 MG Thiothixene (Navane Cap) 20 mg HS PO 12/19/16 22:00 01/18/17 21:59 7/21/17 21:37 20 MG Escitalopram Oxalate (Lexapro Tab) 15 mg QAM PO 12/21/16 09:00 01/20/17 08:59 12/21/16 08:43 15 MG Escitalopram Oxalate (Lexapro Tab) 5 mg TODAY@1130 ONCE PO 12/20/16 11:30 12/20/16 11:31 DC 12/20/16 11:57 5 MG Lurasidone HCl (Latuda Tab) 80 mg DAILY@1700 PO 12/20/16 17:00 01/19/17 16:59 12/20/16 17:28 80 MG Aripiprazole (Abilify Tab) 5 mg QAM PO 12/21/16 09:00 01/20/17 08:59 12/21/16 08:44 5 MG Aripiprazole (Abilify Tab) 2.5 mg TODAY@1130 ONCE PO 12/20/16 11:30 12/20/16 11:31 DC 12/20/16 11:57 2.5 MG Lab Results Last 24 Hrs: Last 24 Hours Test 12/21/16 08:31 Bedside Glucose 91 mg/dl Problem Qualifiers (1) Type 2 diabetes mellitus: Diabetes mellitus complication status: without complication Diabetes mellitus intermediate card tender insulin use: without detention use Qualified Codes: E11.9 - Type 2 diabetes mellitus without complications (2) Hypertension: Hypertension type: unspecified Qualified Codes: I10 - Essential (primary) hypertension (3) Hypothyroidism: Hypothyroidism type: unspecified Qualified Codes: E03.9 - Hypothyroidism, unspecified
[2016-12-21] MEDS: THIOTHIXENE 5 MG CAP PO SCH ×2 (14:00→21:07)
[2016-12-21] MEDS: LURASIDONE HCL 40 MG TAB PO SCH (17:22)
[2016-12-21] MEDS: DESMOPRESSIN ACETATE 0.1 MG TAB PO SCH (21:06)
[2016-12-21] MEDS: MONTELUKAST SOD 10 MG TAB PO SCH (21:07)
[2016-12-21] MEDS: ATORVASTATIN 10 MG TAB PO SCH (21:07)
[2016-12-22 06:33] VITALS: BP_SYST 119; BP_SYST 130; BP_DIAS 76; BP_DIAS 77; PULSE 63; PULSE 66; TEMP 36.9
[2016-12-22] MEDS: METFORMIN HCL 500 MG TAB PO SCH ×2 (08:39→17:12)
[2016-12-22] MEDS: LEVOTHYROXINE 125 MCG TAB PO SCH (08:40)
[2016-12-22] MEDS: LACTOBACILLUS ACIDOPHILUS (FLORANEX) TAB PO SCH (08:40)
[2016-12-22] MEDS: ESTRADIOL 1 MG TAB PO SCH (08:40)
[2016-12-22] MEDS: LOSARTAN POTASSIUM 50 MG TAB PO SCH (08:40)
[2016-12-22] MEDS: ARIPIprazole TAB 5 MG TAB PO SCH (08:40)
[2016-12-22] MEDS: CLONAZEPAM 0.5 MG TAB PO SCH ×3 (08:41→20:54)
[2016-12-22] MEDS: ESCITALOPRAM OXALATE 10 MG TAB PO SCH (08:45)
[2016-12-22] MEDS: SULFAMETHOXAZOLE/TRIMETHOPRIM DS 800/160MG TAB PO SCH ×2 (08:45→20:53)
[2016-12-22] MEDS: MULTIVITAMIN TAB PO SCH (08:45)
[2016-12-22] MEDS: CHOLECALCIFEROL 1000 INTER.UNIT TAB PO SCH (08:46)
[2016-12-22] MEDS: SERTRALINE HCL 100 MG TAB PO SCH (08:47)
[2016-12-22] MEDS: THIOTHIXENE 5 MG CAP PO PRN (10:09)
--- NOTE | 2016-12-22 10:17 | Psychiatric Progress Notes ---
Progress Note Date of Service Dec 22, 2016. Interval History 46 yo woman with schizoaffective disorder who has been in deterioration since her mother in June 2016. I have conferred with Dr. Urbina with respect to her medications, as she has been on many of these meds for years, at high doses, and they are not working. The patient is willing to make some rather sweeping changes since she is in a safe environment, and so will initiate the following changes: increase lamictal to 150 mg. daily, reduce latuda to 120 mg. daily and start abilify 2.5 mg. daily, taper zoloft to 100 mg. daily and start lexapro 10 mg. daily. Will continue klonopin and navane for now, but would like to taper both if we find success with the above changes. We will continue her medical meds, monitor BS's and encourage activity. We will coordinate with her other OP providers as well. At this time, the patient requires inpatient treatment due to the severity of her condition and the risk for self harm if discharged. Chief Complaint "I had a bad night". Subjective Patient was seen & assessed interval progress reviewed with Treatment Team per staff, patient was experiencing auditory hallucinations yesterday evening. She did scratch her arm with her fingernail last evening. Has been focused on navane prn's. Has not used Klonopin when necessary. She is participating in group therapy actively. On interview the patient reports anxiety this morning, auditory hallucinations of grandfathers forced to harm herself, suicidal ideation but able to contract for safety on the unit. She complains of feeling "lonely inside" which is sometimes illuminated are exacerbated in a group setting. Denies feeling more restless today. Review of Systems Psychiatric: + depression symptoms, + anxiety, + problem reported (, SI) Sleep Information Total Hours of Sleep: 12.25 Meal Information Percent of Breakfast Consumed: 100 Percent of Lunch Consumed: 100 Percent of Dinner Consumed: 80 Mental Status Exam During interview pt is: alert and oriented, cooperative Appearance: appropriately dressed Eye contact is: good Motor behavior is: tremor, other (denies akathisia) Speech: other (increased rate) Affect: anxious Mood is: depressed, anxious Thought process: goal directed, flight of ideas Thought content: reality based without delusions Suicidal thought are: present, Plan: denied, Intent: denied Homicidal thoughts are: denied Hallucinations: auditory (of grandfather's voice telling her to hurt herself) Cognition: memory grossly intact, attention grossly intact, language grossly intact Intelligence estimated to be: average Insight: impaired Judgement: impaired Impression Leisa is tolerating the start of medication changes. Today we will further reduce Latuda to 80 mg. daily and increase Abilify to 5 mg. daily. Will also decrease Zoloft to 50 mg. and increase Lexapro to 15 mg. daily, continuing other meds. Will run an EKG for baseline and recheck sodium. Plan (1) Schizoaffective disorder, depressive type 12/18 - Increase lamictal to 150 mg. daily - Reduce Latuda to 120 mg. with dinner, and start Abilify 2.5 mg. daily. R/B /A reviewed and accepted including risk for TD - Reduce Zoloft to 100 mg. daily and start Lexapro 10 mg. daily. R/B/A reviewed and accepted - Continue navane both scheduled and prn, as well as Klonopin - Q 15 min checks for safety - Encourage participation in group and individual counseling - Coordinate with her OP supports - Family meeting if indicated - Encourage other tactile coping strategies to avoid scratching behaviors 12/19 - Change navane to 10 mg. afternoon and 20 mg. HS. 12/20 -Reduce Latuda to 80 mg. daily and increase Abilify to 5 mg. daily - Continue to taper Zoloft to 50 mg. daily and increase Lexapro to 15 mg. daily - EKG - Repeat sodium 12/21 - Watch restlessness in converting to Abilify. We'll also need to watch psychosis as Abilify may attenuate the antipsychotic effect of the residual Latuda and navane - Reviewed sodium of 135 yesterday which was up trending 12/22 - will try to increase the abilify to 10mg tomorrow AM. will defer reduction of latuda tomorrow to judgement of primary team regarding how quickly they would like to taper. encourage use of klonopin prn's if needed. - bmp ordered for Friday AM for sodium (2) Type 2 diabetes mellitus 12/18 - BSG's daily - Continue home dose of metformin - Encourage activity 12/19 - FBS WNL at 93 (3) Hypertension 12/18 - Continue home dose of Cozaar - Monitor BP (4) Hypothyroidism 12/18 - TSH WNL at 2.5 - Continue home dose of levthyroxine (5) Dyslipidemia 12/18 - Continue home dose of Lipitor - Last FLP done in Feb 2016. Will order 12/19 - FLP WNL (6) Class II obesity 12/18 - Encourage walking or exercise bike (7) UTI (urinary tract infection) 12/18 - UA positive for gram negative bacilli. She denies being symptomatic. Will await sensitivity 12/19 - Sensitivity back. Sensitive to bactrim and she says that she has been on this in the past without problems. Has been reviewed with Dr. Urbina Discharge / Aftercare Planning Primary Care Physician: Name: Dr Tam Appointment Notes: Patient states this is a new provider, will be seeing him 07/20 Psychiatrist: Name: Kassandra Hay Therapist: Name: Lamar Miller Bilingual Administrative Assistant: Name: Ramiro Beckailyn Visit Code E&M Code: 52918 Inventory Assets Strengths: Support of family, many outpatient mental health providers, spirituality Needs: To learn to be assertive Risk Factors Assessment : Yes /single/: Yes Higher / Fall in social status: No Health problems: Yes Mental Health Diagnoses: Yes Substance use disorders: No Previous attempt: Yes Family history of suicide: Yes Previous psychiatric stay: Yes Hopelessness: No Smoker: No Protective Factors Assessment Yarsani beliefs: Yes : No Responsible for young children: No Employed: Yes Stable relationships: Yes Supportive family: Yes Good rapport with provider: Yes Data Vital Signs Last 24 Hrs: Date Time Temp Pulse Resp B/P (MAP) Pulse Ox O2 Delivery O2 Flow Rate FiO2 12/22/16 06:33 36.9 63 16 119/77 66 130/76 Meds Administered Last 24 Hrs: Meds Administered (Past 24Hrs) Medications (Trade) Dose Ordered Sig/Christofer Route Start Time Stop Time Status Last Admin Dose Admin Escitalopram Oxalate (Lexapro Tab) 15 mg QAM PO 12/21/16 09:00 01/20/17 08:59 12/22/16 08:45 15 MG Escitalopram Oxalate (Lexapro Tab) 5 mg TODAY@1130 ONCE PO 12/20/16 11:30 12/20/16 11:31 DC 12/20/16 11:57 5 MG Lurasidone HCl (Latuda Tab) 80 mg DAILY@1700 PO 12/20/16 17:00 01/19/17 16:59 12/21/16 17:22 80 MG Aripiprazole (Abilify Tab) 5 mg QAM PO 12/21/16 09:00 01/20/17 08:59 12/22/16 08:40 5 MG Aripiprazole (Abilify Tab) 2.5 mg TODAY@1130 ONCE PO 12/20/16 11:30 12/20/16 11:31 DC 12/20/16 11:57 2.5 MG Lab Results Last 24 Hrs: Last 24 Hours Test 12/22/16 08:36 Bedside Glucose 89 mg/dl Problem Qualifiers (1) Type 2 diabetes mellitus: Diabetes mellitus complication status: without complication Diabetes mellitus senior painter insulin use: without fdc use Qualified Codes: E11.9 - Type 2 diabetes mellitus without complications (2) Hypertension: Hypertension type: unspecified Qualified Codes: I10 - Essential (primary) hypertension (3) Hypothyroidism: Hypothyroidism type: unspecified Qualified Codes: E03.9 - Hypothyroidism, unspecified
[2016-12-22] MEDS: THIOTHIXENE 5 MG CAP PO SCH ×2 (14:22→20:53)
[2016-12-22] MEDS: LURASIDONE HCL 40 MG TAB PO SCH (17:11)
[2016-12-22] MEDS: DESMOPRESSIN ACETATE 0.1 MG TAB PO SCH (20:53)
[2016-12-22] MEDS: MONTELUKAST SOD 10 MG TAB PO SCH (20:53)
[2016-12-22] MEDS: ATORVASTATIN 10 MG TAB PO SCH (20:53)
[2016-12-23 06:54] VITALS: BP_SYST 121; BP_SYST 130; BP_DIAS 77; BP_DIAS 82; PULSE 63; PULSE 66; TEMP 36.9
[2016-12-23 07:08] LABS: BUN/CREATININE RATIO 25.2 (10-20); CREATININE 0.63 mg/dl (0.60-1.20); POTASSIUM 4.4 mmol/L (3.5-5.1)
[2016-12-23] MEDS: LACTOBACILLUS ACIDOPHILUS (FLORANEX) TAB PO SCH (08:40)
[2016-12-23] MEDS: LOSARTAN POTASSIUM 50 MG TAB PO SCH (08:40)
[2016-12-23] MEDS: ARIPIprazole TAB 5 MG TAB PO SCH (08:40)
[2016-12-23] MEDS: METFORMIN HCL 500 MG TAB PO SCH ×2 (08:40→17:33)
[2016-12-23] MEDS: LEVOTHYROXINE 125 MCG TAB PO SCH (08:40)
[2016-12-23] MEDS: CLONAZEPAM 0.5 MG TAB PO SCH ×3 (08:41→20:59)
[2016-12-23] MEDS: ESCITALOPRAM OXALATE 10 MG TAB PO SCH (08:42)
[2016-12-23] MEDS: MULTIVITAMIN TAB PO SCH (08:43)
[2016-12-23] MEDS: SULFAMETHOXAZOLE/TRIMETHOPRIM DS 800/160MG TAB PO SCH ×2 (08:43→20:58)
[2016-12-23] MEDS: ESTRADIOL 1 MG TAB PO SCH (08:44)
[2016-12-23] MEDS: CHOLECALCIFEROL 1000 INTER.UNIT TAB PO SCH (08:44)
[2016-12-23] MEDS: SERTRALINE HCL 50 MG TAB PO SCH (08:51)
--- NOTE | 2016-12-23 09:59 | Psychiatric Progress Notes ---
Progress Note Date of Service Dec 23, 2016. Interval History 46 yo woman with schizoaffective disorder who has been in deterioration since her mother in June 2016. I have conferred with Dr. Urbina with respect to her medications, as she has been on many of these meds for years, at high doses, and they are not working. The patient is willing to make some rather sweeping changes since she is in a safe environment, and so will initiate the following changes: increase lamictal to 150 mg. daily, reduce latuda to 120 mg. daily and start abilify 2.5 mg. daily, taper zoloft to 100 mg. daily and start lexapro 10 mg. daily. Will continue klonopin and navane for now, but would like to taper both if we find success with the above changes. We will continue her medical meds, monitor BS's and encourage activity. We will coordinate with her other OP providers as well. At this time, the patient requires inpatient treatment due to the severity of her condition and the risk for self harm if discharged. Chief Complaint "Depressed, frustrated.". Subjective Patient was seen & assessed interval progress reviewed with Treatment Team. The patient says that she continues to feel very depressed, but that the SI are not as intense. The hallucinations persist, worst at night, and less in the day. She was having trouble with the voices at the time of the interview and was in her bed listening to the sound machine to try to cope with them. She scratched her forearm on Friday but has not done so since then. She has been talking with her family on the phone, and feels supported by them. I have spoken with her father this AM and he still wants to be available to come to [place] when she gets out of the hospital. She denies side effects to meds. Her director case management Ramiro is coming to see her this AM. Review of Systems Constitutional: No fever, No chills, No sweats, No weight loss, No weakness, No fatigue, No problem reported ENT: No hearing loss, No unusual epistaxis, No nasal symptoms, No sore throat, No tinnitus, No dental problems, No trouble swallowing, No problem reported Respiratory: No cough, No sputum, No wheezing, No shortness of breath, No dyspnea on exertion, No dyspnea at rest, No hemoptysis, No problem reported Cardiovascular: No chest pain, No orthopnea, No PND, No edema, No claudication , No palpitations, No problem reported Abdomen: No pain, No nausea, No vomiting, No diarrhea, No constipation, No GI bleeding, No problem reported Musculoskeletal: No joint pain, No muscle pain, No swelling, No calf pain, No problem reported Neurologic: + balance problems (walks with a cane) Psychiatric: + depression symptoms (with aud hallucinations) Integumentary: + problem reported (healing scratches on both forearms) Sleep Information Total Hours of Sleep: 8.75 Meal Information Percent of Breakfast Consumed: 100 Percent of Lunch Consumed: 80 Percent of Dinner Consumed: 100 Mental Status Exam During interview pt is: alert and oriented, cooperative Appearance: appropriately dressed, appropriately groomed Eye contact is: good Motor behavior is: tremor, other (denies akathisia) Speech: normal in rate, rhythm & volume Affect: depressed, anxious Mood is: depressed, anxious Thought process: goal directed Thought content: reality based without delusions Suicidal thought are: present, Plan: denied, Intent: denied Homicidal thoughts are: denied Hallucinations: auditory (of grandfather's voice telling her to hurt herself), denies visual Cognition: memory grossly intact, attention grossly intact, language grossly intact Intelligence estimated to be: average Insight: impaired Judgement: impaired Impression Leisa is tolerating the start of medication changes. Today we will further reduce Latuda to 40 mg. daily as Abilify goes to 10 mg. this AM Will also decrease Zoloft to 50 mg. and increase Lexapro to 20 mg. daily, continuing other meds. Leisa and I have talked about the use of TMS or ECT in the event she is poorly responsive to meds. TMS, which can be provided at [facility], is covered by her medicare. Plan (1) Schizoaffective disorder, depressive type 12/18 - Increase lamictal to 150 mg. daily - Reduce Latuda to 120 mg. with dinner, and start Abilify 2.5 mg. daily. R/B /A reviewed and accepted including risk for TD - Reduce Zoloft to 100 mg. daily and start Lexapro 10 mg. daily. R/B/A reviewed and accepted - Continue navane both scheduled and prn, as well as Klonopin - Q 15 min checks for safety - Encourage participation in group and individual counseling - Coordinate with her OP supports - Family meeting if indicated - Encourage other tactile coping strategies to avoid scratching behaviors 12/19 - Change navane to 10 mg. afternoon and 20 mg. HS. 12/20 -Reduce Latuda to 80 mg. daily and increase Abilify to 5 mg. daily - Continue to taper Zoloft to 50 mg. daily and increase Lexapro to 15 mg. daily - EKG - Repeat sodium 12/21 - Watch restlessness in converting to Abilify. We'll also need to watch psychosis as Abilify may attenuate the antipsychotic effect of the residual Latuda and navane - Reviewed sodium of 135 yesterday which was up trending 12/22 - will try to increase the abilify to 10mg tomorrow AM. will defer reduction of latuda tomorrow to judgement of primary team regarding how quickly they would like to taper. encourage use of klonopin prn's if needed. - bmp ordered for Friday for sodium 12/23 - Reduce Latuda to 40 mg. daily, continue Abilify 10 mg daily - Increase Lexapro to 20 mg. daily, continue Zoloft 50 mg. daily - Consider TMS if poorly responsive to meds. (2) Type 2 diabetes mellitus 12/18 - BSG's daily - Continue home dose of metformin - Encourage activity 12/19 - FBS WNL at 93 (3) Hypertension 12/18 - Continue home dose of Cozaar - Monitor BP (4) Hypothyroidism 12/18 - TSH WNL at 2.5 - Continue home dose of levthyroxine (5) Dyslipidemia 12/18 - Continue home dose of Lipitor - Last FLP done in Feb 2016. Will order 12/19 - FLP WNL (6) Class II obesity 12/18 - Encourage walking or exercise bike (7) UTI (urinary tract infection) 12/18 - UA positive for gram negative bacilli. She denies being symptomatic. Will await sensitivity 12/19 - Sensitivity back. Sensitive to bactrim and she says that she has been on this in the past without problems. Has been reviewed with Dr. Urbina Discharge / Aftercare Planning Primary Care Physician: Name: Dr Tam Appointment Notes: Patient states this is a new provider, will be seeing him 07/20 Psychiatrist: Name: Kassandra Hay Therapist: Name: Lamar Munozr Senior Supplier Quality Engineer: Name: Ramiro Santo Visit Code E&M Code: 48226 Inventory Assets Strengths: Support of family, many outpatient mental health providers, spirituality Needs: To learn to be assertive Risk Factors Assessment : Yes /single/: Yes Higher / Fall in social status: No Health problems: Yes Mental Health Diagnoses: Yes Substance use disorders: No Previous attempt: Yes Family history of suicide: Yes Previous psychiatric stay: Yes Hopelessness: No Smoker: No Protective Factors Assessment Rastafari beliefs: Yes : No Responsible for young children: No Employed: Yes Stable relationships: Yes Supportive family: Yes Good rapport with provider: Yes Data Vital Signs Last 24 Hrs: Date Time Temp Pulse Resp B/P (MAP) Pulse Ox O2 Delivery O2 Flow Rate FiO2 12/23/16 06:54 36.9 63 16 121/77 66 130/82 Meds Administered Last 24 Hrs: Meds Administered (Past 24Hrs) Medications (Trade) Dose Ordered Sig/Christofer Route Start Time Stop Time Status Last Admin Dose Admin Aripiprazole (Abilify Tab) 10 mg QAM PO 12/23/16 09:00 01/20/17 08:59 12/23/16 08:40 10 MG Sertraline HCl (Zoloft Tab) 50 mg QAM PO 12/23/16 09:00 01/22/17 08:59 12/23/16 08:51 50 MG Lab Results Last 24 Hrs: Last 24 Hours Test 12/23/16 06:17 12/23/16 07:59 Sodium Level 139 mmol/L Potassium Level 4.4 mmol/L Chloride Level 103 mmol/L Carbon Dioxide Level 27 mmol/L Anion Gap 9.0 mmol/L Blood Urea Nitrogen 16 mg/dl Creatinine 0.63 mg/dl Est Creatinine Clear Calc Drug Dose 129.9 ml/min Estimated GFR () 122.9 Estimated GFR (Non- 106.1 BUN/Creatinine Ratio 25.2 Random Glucose 87 mg/dl Calcium Level 9.0 mg/dl Bedside Glucose 103 mg/dl Problem Qualifiers (1) Type 2 diabetes mellitus: Diabetes mellitus complication status: without complication Diabetes mellitus fpc insulin use: without fpc use Qualified Codes: E11.9 - Type 2 diabetes mellitus without complications (2) Hypertension: Hypertension type: unspecified Qualified Codes: I10 - Essential (primary) hypertension (3) Hypothyroidism: Hypothyroidism type: unspecified Qualified Codes: E03.9 - Hypothyroidism, unspecified
[2016-12-23] MEDS: THIOTHIXENE 5 MG CAP PO SCH ×2 (14:34→20:59)
[2016-12-23] MEDS: LURASIDONE HCL 40 MG TAB PO SCH (17:33)
[2016-12-23] MEDS: MONTELUKAST SOD 10 MG TAB PO SCH (20:58)
[2016-12-23] MEDS: ATORVASTATIN 10 MG TAB PO SCH (20:59)
[2016-12-23] MEDS: DESMOPRESSIN ACETATE 0.1 MG TAB PO SCH (20:59)
[2016-12-24 07:01] VITALS: BP_SYST 114; BP_SYST 127; BP_DIAS 73; BP_DIAS 82; PULSE 60; PULSE 63; TEMP 37
[2016-12-24] MEDS: METFORMIN HCL 500 MG TAB PO SCH ×2 (08:42→17:36)
[2016-12-24] MEDS: ARIPIprazole TAB 5 MG TAB PO SCH (08:43)
[2016-12-24] MEDS: ESTRADIOL 1 MG TAB PO SCH (08:43)
[2016-12-24] MEDS: LOSARTAN POTASSIUM 50 MG TAB PO SCH (08:43)
[2016-12-24] MEDS: LEVOTHYROXINE 125 MCG TAB PO SCH (08:43)
[2016-12-24] MEDS: ESCITALOPRAM OXALATE 20 MG TAB PO SCH (08:44)
[2016-12-24] MEDS: LACTOBACILLUS ACIDOPHILUS (FLORANEX) TAB PO SCH (08:44)
[2016-12-24] MEDS: CLONAZEPAM 0.5 MG TAB PO SCH ×3 (08:44→21:09)
[2016-12-24] MEDS: SERTRALINE HCL 50 MG TAB PO SCH (08:45)
[2016-12-24] MEDS: MULTIVITAMIN TAB PO SCH (08:45)
[2016-12-24] MEDS: CHOLECALCIFEROL 1000 INTER.UNIT TAB PO SCH (08:45)
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
[2016-12-24] MEDS: THIOTHIXENE 5 MG CAP PO SCH ×2 (13:37→21:10)
[2016-12-24] MEDS ORDERED: LURASIDONE HCL 40 MG TAB PO SCH (17:00)
[2016-12-24] MEDS: DESMOPRESSIN ACETATE 0.1 MG TAB PO SCH (21:09)
[2016-12-24] MEDS: MONTELUKAST SOD 10 MG TAB PO SCH (21:09)
[2016-12-24] MEDS: ATORVASTATIN 10 MG TAB PO SCH (21:09)
[2016-12-25 07:07] VITALS: BP_SYST 123; BP_SYST 124; BP_DIAS 82; PULSE 65; PULSE 68; TEMP 36.9
[2016-12-25] MEDS: METFORMIN HCL 500 MG TAB PO SCH ×2 (08:35→17:39)
[2016-12-25] MEDS: LEVOTHYROXINE 125 MCG TAB PO SCH (08:35)
[2016-12-25] MEDS: LOSARTAN POTASSIUM 50 MG TAB PO SCH (08:36)
[2016-12-25] MEDS: ESTRADIOL 1 MG TAB PO SCH (08:36)
[2016-12-25] MEDS: LACTOBACILLUS ACIDOPHILUS (FLORANEX) TAB PO SCH (08:36)
[2016-12-25] MEDS: ARIPIprazole TAB 5 MG TAB PO SCH (08:36)
[2016-12-25] MEDS: CLONAZEPAM 0.5 MG TAB PO SCH ×3 (08:37→21:32)
[2016-12-25] MEDS: MULTIVITAMIN TAB PO SCH (08:37)
[2016-12-25] MEDS: CHOLECALCIFEROL 1000 INTER.UNIT TAB PO SCH (08:37)
[2016-12-25] MEDS: ESCITALOPRAM OXALATE 20 MG TAB PO SCH (08:37)
--- NOTE | 2016-12-25 08:42 | Psychiatric Progress Notes ---
Progress Note Date of Service Dec 25, 2016. Interval History 46 yo woman with schizoaffective disorder who has been in deterioration since her mother in June 2016. I have conferred with Dr. Urbina with respect to her medications, as she has been on many of these meds for years, at high doses, and they are not working. The patient is willing to make some rather sweeping changes since she is in a safe environment, and so will initiate the following changes: increase lamictal to 150 mg. daily, reduce latuda to 120 mg. daily and start abilify 2.5 mg. daily, taper zoloft to 100 mg. daily and start lexapro 10 mg. daily. Will continue klonopin and navane for now, but would like to taper both if we find success with the above changes. We will continue her medical meds, monitor BS's and encourage activity. We will coordinate with her other OP providers as well. At this time, the patient requires inpatient treatment due to the severity of her condition and the risk for self harm if discharged. Chief Complaint "Okay, a little bit better today". Subjective Patient was seen & assessed interval progress reviewed with Treatment Team. Staff report she is attending groups and participating. She continues to report depressed mood, rates it a 3 out of 10, and doesn't feel safe to leave. She made phone calls to reschedule her upcoming appointments. She states that her mood is slightly improved today, rating it a 3 out of 10. She continues to hear auditory hallucinations of voices telling her to "scratch myself and hurt myself, but I'm trying really hard not to." She continues to endorse suicidal thoughts to overdose on medications, and is working on multiple plans to manage these, including getting a lock box for her pills and having her ICM hold the villarreal and assist her to fill a weekly pillbox, and devising a plan whereby she shows receipts of everything she has blocked to either her rep payee or her outpatient providers, "so they know I haven't bought sleeping pills." She feels safe in the hospital, stating she cannot overdose here, but remains concerned that if she were not in the hospital she would attempt suicide. She states the voices are constant, although they "slow down and aren't as demanding " after she takes Navane. She remains very worried about asking for when necessary medications, stating she tries to avoid this, but then stating she knows she needs to take them if she needs them. She is pushing herself to attend groups, be out in the group room around other people, and shower daily. She would like to try to exercise, but "I'm too depressed." She is also utilizing the noise machine and stress balls to help deal with her auditory hallucinations. Her father is coming to town on Friday and will be staying with her for 2 weeks after discharge from the hospital. Sleep Information Total Hours of Sleep: 8.75 Meal Information Percent of Breakfast Consumed: 90 Percent of Lunch Consumed: 95 Percent of Dinner Consumed: 100 Mental Status Exam During interview pt is: alert and oriented, cooperative Appearance: appropriately dressed, appropriately groomed Eye contact is: poor (staring at the floor) Motor behavior is: tremor Speech: normal in rate, rhythm & volume Affect: depressed, anxious, constricted Mood is: depressed, anxious Thought process: goal directed Thought content: reality based without delusions Suicidal thought are: present, Plan: present (to overdose on medications), Intent: denied (while in hospital, but cannot contract for safety outside the hospital) Homicidal thoughts are: denied Hallucinations: auditory (voices telling her to hurt herself), denies visual Cognition: memory grossly intact, attention grossly intact, language grossly intact Intelligence estimated to be: average Insight: fair Judgement: impaired Impression The patient continues to feel depressed with command auditory hallucinations. She is only mildly improved in her mood, but no improvement to hallucinations, with ongoing urges to self-harm and suicidal thoughts. She is tolerating multiple medication changes, has been started on escitalopram and is now up to 20 mg, and sertraline has been discontinued. Aripiprazole has been increased to 12.5 mg, and lurasidone discontinued. Her anxiety remains high, but is likely not benefitting from the Klonopin that she has been on for years. Staff are working with her on assertiveness, as she is extremely avoidant in her problem resolution. Encouraging her to exercise, but she feels too depressed, although she is utilizing other coping skills. TMS is covered by Medicare and so will continue to consider this if meds prove ineffective. Plan (1) Schizoaffective disorder, depressive type 12/18 - Increase lamictal to 150 mg. daily - Reduce Latuda to 120 mg. with dinner, and start Abilify 2.5 mg. daily. R/B /A reviewed and accepted including risk for TD - Reduce Zoloft to 100 mg. daily and start Lexapro 10 mg. daily. R/B/A reviewed and accepted - Continue navane both scheduled and prn, as well as Klonopin - Q 15 min checks for safety - Encourage participation in group and individual counseling - Coordinate with her OP supports - Family meeting if indicated - Encourage other tactile coping strategies to avoid scratching behaviors 12/19 - Change navane to 10 mg. afternoon and 20 mg. HS. 12/20 -Reduce Latuda to 80 mg. daily and increase Abilify to 5 mg. daily - Continue to taper Zoloft to 50 mg. daily and increase Lexapro to 15 mg. daily - EKG - Repeat sodium 12/21 - Watch restlessness in converting to Abilify. We'll also need to watch psychosis as Abilify may attenuate the antipsychotic effect of the residual Latuda and navane - Reviewed sodium of 135 yesterday which was up trending 12/22 - will try to increase the abilify to 10mg tomorrow AM. will defer reduction of latuda tomorrow to judgement of primary team regarding how quickly they would like to taper. encourage use of klonopin prn's if needed. - bmp ordered for Friday AM for sodium 12/23 - Reduce Latuda to 40 mg. daily, continue Abilify 10 mg daily - Increase Lexapro to 20 mg. daily, continue Zoloft 50 mg. daily - Consider TMS if poorly responsive to meds. 12/24 - DC Latuda and increase Abilify to 12.5 mg. daily - DC Zoloft, continue Lexapro 20 mg. daily - Increase lamictal to 200 mg. daily 12/25 - Continue current meds, including clonazepam and thiothixene prn. Encourage her to use prns if needed, especially if feels unable to stop herself from self-harming. - Patient asking about trying hydroxyzine for anxiety, and advised she has it ordered prn and may try it. (2) Type 2 diabetes mellitus 12/18 - BSG's daily - Continue home dose of metformin - Encourage activity 12/19 - FBS WNL at 93 (3) Hypertension 12/18 - Continue home dose of Cozaar - Monitor BP (4) Hypothyroidism 12/18 - TSH WNL at 2.5 - Continue home dose of levthyroxine (5) Dyslipidemia 12/18 - Continue home dose of Lipitor - Last FLP done in Feb 2016. Will order 12/19 - FLP WNL (6) Class II obesity 12/18 - Encourage walking or exercise bike (7) UTI (urinary tract infection) 12/18 - UA positive for gram negative bacilli. She denies being symptomatic. Will await sensitivity 12/19 - Sensitivity back. Sensitive to bactrim and she says that she has been on this in the past without problems. Discharge / Aftercare Planning Primary Care Physician: Name: Dr Tam Appointment Notes: Patient states this is a new provider, will be seeing him 07/20 Psychiatrist: Name: Kassandra Hay Therapist: Name: Lamar Miller Actuarial Associate: Name: Ramiro Beckailyn Visit Code E&M Code: 16183 Inventory Assets Strengths: Support of family, many outpatient mental health providers, spirituality Needs: To learn to be assertive Risk Factors Assessment : Yes /single/: Yes Higher / Fall in social status: No Health problems: Yes Mental Health Diagnoses: Yes Substance use disorders: No Previous attempt: Yes Family history of suicide: Yes Previous psychiatric stay: Yes Hopelessness: No Smoker: No Protective Factors Assessment Mormon beliefs: Yes : No Responsible for young children: No Employed: Yes Stable relationships: Yes Supportive family: Yes Good rapport with provider: Yes Data Vital Signs Last 24 Hrs: Date Time Temp Pulse Resp B/P (MAP) Pulse Ox O2 Delivery O2 Flow Rate FiO2 12/25/16 07:07 36.9 68 16 123/82 65 124/82 Meds Administered Last 24 Hrs: Meds Administered (Past 24Hrs) Medications (Trade) Dose Ordered Sig/Christofer Route Start Time Stop Time Status Last Admin Dose Admin Aripiprazole (Abilify Tab) 10 mg QAM PO 12/23/16 09:00 12/24/16 10:45 DC 12/24/16 08:43 10 MG Sertraline HCl (Zoloft Tab) 50 mg QAM PO 12/23/16 09:00 12/24/16 10:45 DC 12/24/16 08:45 50 MG Lurasidone HCl (Latuda Tab) 40 mg DAILY@1700 PO 12/24/16 17:00 12/24/16 19:00 DC 12/24/16 17:00 40 MG Escitalopram Oxalate (Lexapro Tab) 20 mg QAM PO 12/24/16 09:00 01/23/17 08:59 12/24/16 08:44 20 MG Problem Qualifiers (1) Type 2 diabetes mellitus: Diabetes mellitus complication status: without complication Diabetes mellitus detention insulin use: without detention use Qualified Codes: E11.9 - Type 2 diabetes mellitus without complications (2) Hypertension: Hypertension type: unspecified Qualified Codes: I10 - Essential (primary) hypertension (3) Hypothyroidism: Hypothyroidism type: unspecified Qualified Codes: E03.9 - Hypothyroidism, unspecified
[2016-12-25] MEDS: THIOTHIXENE 5 MG CAP PO SCH ×2 (13:56→21:32)
[2016-12-25] MEDS: THIOTHIXENE 5 MG CAP PO PRN (16:37)
[2016-12-25] MEDS: DESMOPRESSIN ACETATE 0.1 MG TAB PO SCH (21:32)
[2016-12-25] MEDS: MONTELUKAST SOD 10 MG TAB PO SCH (21:32)
[2016-12-25] MEDS: ATORVASTATIN 10 MG TAB PO SCH (21:32)
[2016-12-26 06:56] VITALS: BP_SYST 125; BP_SYST 132; BP_DIAS 83; BP_DIAS 87; PULSE 60; PULSE 73; TEMP 36.9
[2016-12-26] MEDS: LEVOTHYROXINE 125 MCG TAB PO SCH (08:29)
[2016-12-26] MEDS: METFORMIN HCL 500 MG TAB PO SCH ×2 (08:29→18:36)
[2016-12-26] MEDS: LOSARTAN POTASSIUM 50 MG TAB PO SCH (08:30)
[2016-12-26] MEDS: LACTOBACILLUS ACIDOPHILUS (FLORANEX) TAB PO SCH (08:30)
[2016-12-26] MEDS: ESTRADIOL 1 MG TAB PO SCH (08:30)
[2016-12-26] MEDS: ARIPIprazole TAB 5 MG TAB PO SCH (08:30)
[2016-12-26] MEDS: CHOLECALCIFEROL 1000 INTER.UNIT TAB PO SCH (08:31)
[2016-12-26] MEDS: ESCITALOPRAM OXALATE 20 MG TAB PO SCH (08:31)
[2016-12-26] MEDS: MULTIVITAMIN TAB PO SCH (08:31)
[2016-12-26] MEDS: CLONAZEPAM 0.5 MG TAB PO SCH ×3 (08:31→21:50)
--- NOTE | 2016-12-26 10:24 | Psychiatric Progress Notes ---
Progress Note Date of Service Dec 26, 2016. Interval History 46 yo woman with schizoaffective disorder who has been in deterioration since her mother in June 2016. I have conferred with Dr. Urbina with respect to her medications, as she has been on many of these meds for years, at high doses, and they are not working. The patient is willing to make some rather sweeping changes since she is in a safe environment, and so will initiate the following changes: increase lamictal to 150 mg. daily, reduce latuda to 120 mg. daily and start abilify 2.5 mg. daily, taper zoloft to 100 mg. daily and start lexapro 10 mg. daily. Will continue klonopin and navane for now, but would like to taper both if we find success with the above changes. We will continue her medical meds, monitor BS's and encourage activity. We will coordinate with her other OP providers as well. At this time, the patient requires inpatient treatment due to the severity of her condition and the risk for self harm if discharged. Chief Complaint "Yesterday the voices were worse.". Subjective Patient was seen & assessed interval progress reviewed with Treatment Team. Staff report that Leisa had a difficult day yesterday with voices, and thoughts to self injure. She received 1 prn of navane which she says was helpful. today she reviews that her difficult times yesterday were around noon and 4 PM. She then chose not to have visitors or phone calls on -, but says that she slept well on - without voices interrupting her sleep. Today she is feeling "a little bit better" and was able to shower this AM. She rates her mood 3/10. She has been thinking about her safety plan for home and has decided that she will get a lock box for her meds. She fills her med container once per week on Friday, with her adult protective caseworker, and she wants to be able to give him the villarreal so that she couldn't OD on her existing meds. She further wants to show her grocery receipts to her adult protective caseworker so that he can see that she has not purchased any meds to OD on. She reports some mild restlessness on her new meds, but denies that it is bothersome and does not want to be on any other meds. She remains highly anxious, rating it a 9/10 with 10 being the worst anxiety ever. She continues to deny vis hallucinations. The SI have not occurred yet today. Review of Systems Constitutional: + problem reported (anxiety) ENT: No hearing loss, No unusual epistaxis, No nasal symptoms, No sore throat, No tinnitus, No dental problems, No trouble swallowing, No problem reported Respiratory: No cough, No sputum, No wheezing, No shortness of breath, No dyspnea on exertion, No dyspnea at rest, No hemoptysis, No problem reported Cardiovascular: No chest pain, No orthopnea, No PND, No edema, No claudication , No palpitations, No problem reported Abdomen: No pain, No nausea, No vomiting, No diarrhea, No constipation, No GI bleeding, No problem reported Musculoskeletal: + problem reported (walks with cane for stability) Neurologic: No memory loss, No paralysis, No weakness, No numbness/tingling, No vertigo, No balance problems, No problem reported Psychiatric: + depression symptoms, + anxiety, + problem reported (command hallucinations) Integumentary: No rash, No itch, No new/changing skin lesions, No color change , No bleeding, No problem reported Sleep Information Total Hours of Sleep: 10.00 Meal Information Percent of Breakfast Consumed: 100 Percent of Lunch Consumed: 95 Percent of Dinner Consumed: 50 Mental Status Exam During interview pt is: alert and oriented, cooperative Appearance: appropriately dressed, appropriately groomed Eye contact is: poor (staring at the floor) Motor behavior is: tremor Speech: normal in rate, rhythm & volume Affect: depressed, anxious, constricted Mood is: depressed, anxious Thought process: goal directed Thought content: reality based without delusions Suicidal thought are: present, Plan: present (to overdose on medications), Intent: denied (while in hospital, but cannot contract for safety outside the hospital) Homicidal thoughts are: denied Hallucinations: auditory (voices telling her to hurt herself), denies visual Cognition: memory grossly intact, attention grossly intact, language grossly intact Intelligence estimated to be: average Insight: fair Judgement: impaired Impression Still depressed with command hallucinations. Will further increase Abilify to 15 mg. daily and continue other meds. Father is scheduled to come to [place] on Friday which she is looking forward to, but I am concerned that she may not be ready for discharge by then, given the limited response to medication adjustments so far. Plan (1) Schizoaffective disorder, depressive type 12/18 - Increase lamictal to 150 mg. daily - Reduce Latuda to 120 mg. with dinner, and start Abilify 2.5 mg. daily. R/B /A reviewed and accepted including risk for TD - Reduce Zoloft to 100 mg. daily and start Lexapro 10 mg. daily. R/B/A reviewed and accepted - Continue navane both scheduled and prn, as well as Klonopin - Q 15 min checks for safety - Encourage participation in group and individual counseling - Coordinate with her OP supports - Family meeting if indicated - Encourage other tactile coping strategies to avoid scratching behaviors 12/19 - Change navane to 10 mg. afternoon and 20 mg. HS. 12/20 -Reduce Latuda to 80 mg. daily and increase Abilify to 5 mg. daily - Continue to taper Zoloft to 50 mg. daily and increase Lexapro to 15 mg. daily - EKG - Repeat sodium 12/21 - Watch restlessness in converting to Abilify. We'll also need to watch psychosis as Abilify may attenuate the antipsychotic effect of the residual Latuda and navane - Reviewed sodium of 135 yesterday which was up trending 12/22 - will try to increase the abilify to 10mg tomorrow AM. will defer reduction of latuda tomorrow to judgement of primary team regarding how quickly they would like to taper. encourage use of klonopin prn's if needed. - bmp ordered for Friday for sodium 12/23 - Reduce Latuda to 40 mg. daily, continue Abilify 10 mg daily - Increase Lexapro to 20 mg. daily, continue Zoloft 50 mg. daily - Consider TMS if poorly responsive to meds. 12/24 - DC Latuda and increase Abilify to 12.5 mg. daily - DC Zoloft, continue Lexapro 20 mg. daily - Increase lamictal to 200 mg. daily 12/25 - Continue current meds, including clonazepam and thiothixene prn. Encourage her to use prns if needed, especially if feels unable to stop herself from self-harming. - Patient asking about trying hydroxyzine for anxiety, and advised she has it ordered prn and may try it. 12/26 - Increase Abilify to 15 mg. daily (2) Type 2 diabetes mellitus 12/18 - BSG's daily - Continue home dose of metformin - Encourage activity 12/19 - FBS WNL at 93 (3) Hypertension 12/18 - Continue home dose of Cozaar - Monitor BP (4) Hypothyroidism 12/18 - TSH WNL at 2.5 - Continue home dose of levthyroxine (5) Dyslipidemia 12/18 - Continue home dose of Lipitor - Last FLP done in Feb 2016. Will order 12/19 - FLP WNL (6) Class II obesity 12/18 - Encourage walking or exercise bike (7) UTI (urinary tract infection) 12/18 - UA positive for gram negative bacilli. She denies being symptomatic. Will await sensitivity 12/19 - Sensitivity back. Sensitive to bactrim and she says that she has been on this in the past without problems. Discharge / Aftercare Planning Primary Care Physician: Name: Dr Tam Appointment Notes: Patient states this is a new provider, will be seeing him 07/20 Psychiatrist: Name: aKssandra Hay Therapist: Name: Lamar Miller Date of Appointment: Jan 10, 2017 Time of Appointment: 10am [employer] Recovery Operator: Name: Ramiro Beckailyn Visit Code E&M Code: 12478 Inventory Assets Strengths: Support of family, many outpatient mental health providers, spirituality Needs: To learn to be assertive Risk Factors Assessment : Yes /single/: Yes Higher / Fall in social status: No Health problems: Yes Mental Health Diagnoses: Yes Substance use disorders: No Previous attempt: Yes Family history of suicide: Yes Previous psychiatric stay: Yes Hopelessness: No Smoker: No Protective Factors Assessment [employer] beliefs: Yes : No Responsible for young children: No Employed: Yes Stable relationships: Yes Supportive family: Yes Good rapport with provider: Yes Data Vital Signs Last 24 Hrs: Date Time Temp Pulse Resp B/P (MAP) Pulse Ox O2 Delivery O2 Flow Rate FiO2 12/26/16 06:56 36.9 60 16 125/83 73 132/87 Meds Administered Last 24 Hrs: Meds Administered (Past 24Hrs) Medications (Trade) Dose Ordered Sig/Christofer Route Start Time Stop Time Status Last Admin Dose Admin Lurasidone HCl (Latuda Tab) 40 mg DAILY@1700 PO 12/24/16 17:00 12/24/16 19:00 DC 12/24/16 17:00 40 MG Lamotrigine (Lamictal Tab) 200 mg QAM PO 12/25/16 09:00 01/24/17 08:59 12/26/16 08:31 200 MG Aripiprazole (Abilify Tab) 12.5 mg QAM PO 12/25/16 09:00 01/24/17 08:59 12/26/16 08:30 12.5 MG Lab Results Last 24 Hrs: Last 24 Hours Test 12/26/16 07:25 Bedside Glucose 98 mg/dl Problem Qualifiers (1) Type 2 diabetes mellitus: Diabetes mellitus complication status: without complication Diabetes mellitus adjunct faculty for medical terminology insulin use: without adjunct faculty for medical terminology use Qualified Codes: E11.9 - Type 2 diabetes mellitus without complications (2) Hypertension: Hypertension type: unspecified Qualified Codes: I10 - Essential (primary) hypertension (3) Hypothyroidism: Hypothyroidism type: unspecified Qualified Codes: E03.9 - Hypothyroidism, unspecified
[2016-12-26] MEDS: THIOTHIXENE 5 MG CAP PO SCH ×2 (12:38→21:51)
[2016-12-26] MEDS: DESMOPRESSIN ACETATE 0.1 MG TAB PO SCH (21:50)
[2016-12-26] MEDS: ATORVASTATIN 10 MG TAB PO SCH (21:50)
[2016-12-26] MEDS: MONTELUKAST SOD 10 MG TAB PO SCH (21:51)
[2016-12-27] MEDS: hydrOXYzine HCL 25 MG TAB PO PRN (03:29)
[2016-12-27 06:59] VITALS: BP_SYST 117; BP_SYST 118; BP_DIAS 73; BP_DIAS 74; PULSE 65; PULSE 69; TEMP 36.8
[2016-12-27] MEDS: METFORMIN HCL 500 MG TAB PO SCH ×2 (08:55→17:58)
[2016-12-27] MEDS: LEVOTHYROXINE 125 MCG TAB PO SCH (08:55)
[2016-12-27] MEDS: LOSARTAN POTASSIUM 50 MG TAB PO SCH (08:55)
[2016-12-27] MEDS: ESTRADIOL 1 MG TAB PO SCH (08:55)
[2016-12-27] MEDS: CHOLECALCIFEROL 1000 INTER.UNIT TAB PO SCH (08:56)
[2016-12-27] MEDS: ESCITALOPRAM OXALATE 20 MG TAB PO SCH (08:56)
[2016-12-27] MEDS: MULTIVITAMIN TAB PO SCH (08:56)
[2016-12-27] MEDS: LACTOBACILLUS ACIDOPHILUS (FLORANEX) TAB PO SCH (08:56)
[2016-12-27] MEDS: CLONAZEPAM 0.5 MG TAB PO SCH ×3 (08:57→21:00)
[2016-12-27] MEDS: ARIPIprazole TAB 15 MG TAB PO SCH (09:30)
--- NOTE | 2016-12-27 11:41 | Psychiatric Progress Notes ---
Progress Note Date of Service Dec 27, 2016. Interval History 46 yo woman with schizoaffective disorder who has been in deterioration since her mother in June 2016. I have conferred with Dr. Urbina with respect to her medications, as she has been on many of these meds for years, at high doses, and they are not working. The patient is willing to make some rather sweeping changes since she is in a safe environment, and so will initiate the following changes: increase lamictal to 150 mg. daily, reduce latuda to 120 mg. daily and start abilify 2.5 mg. daily, taper zoloft to 100 mg. daily and start lexapro 10 mg. daily. Will continue klonopin and navane for now, but would like to taper both if we find success with the above changes. We will continue her medical meds, monitor BS's and encourage activity. We will coordinate with her other OP providers as well. At this time, the patient requires inpatient treatment due to the severity of her condition and the risk for self harm if discharged. Chief Complaint "I'm more depressed today.". Subjective Patient was seen & assessed interval progress reviewed with Treatment Team. The patient is in bed listening to the white noise machine. She says that yesterday she took a prn of navane because the voices were bad and it was helpful. She had some trouble sleeping initially last night and took some vistaril with good results. She continues to hear her grandfather's voice telling her to kill herself, but says it is "less demanding". She had SI last night in response to the voices, but none so far today. She continues to report mild restlessness but doesn't want to take additional meds for it and says that its tolerable. She did not take phone calls last evening, not feeling like talking, but has been going to groups. She has not been scratching her arms. We talked about a longer term strategy in terms of being with people. Her father will arrive Friday for a 2 week visit, but she does not want to consider going back to [facility] with him after that, preferring to stay here and resume her regular schedule of activities. Review of Systems Constitutional: + fatigue ENT: No hearing loss, No unusual epistaxis, No nasal symptoms, No sore throat, No tinnitus, No dental problems, No trouble swallowing, No problem reported Respiratory: No cough, No sputum, No wheezing, No shortness of breath, No dyspnea on exertion, No dyspnea at rest, No hemoptysis, No problem reported Cardiovascular: No chest pain, No orthopnea, No PND, No edema, No claudication , No palpitations, No problem reported Abdomen: No pain, No nausea, No vomiting, No diarrhea, No constipation, No GI bleeding, No problem reported Musculoskeletal: + problem reported (walks with cane for stability) Neurologic: + balance problems Psychiatric: + depression symptoms, + anxiety, + problem reported (command hallucinations) Integumentary: No rash, No itch, No new/changing skin lesions, No color change , No bleeding, No problem reported Sleep Information Total Hours of Sleep: 9.50 Meal Information Percent of Breakfast Consumed: 100 Percent of Lunch Consumed: 100 Percent of Dinner Consumed: 100 Mental Status Exam During interview pt is: alert and oriented, cooperative Appearance: appropriately dressed, appropriately groomed Eye contact is: poor (staring at the floor) Motor behavior is: tremor Speech: normal in rate, rhythm & volume Affect: depressed, anxious, constricted Mood is: depressed, anxious Thought process: goal directed Thought content: reality based without delusions Suicidal thought are: present, Plan: present (to overdose on medications), Intent: denied (while in hospital, but cannot contract for safety outside the hospital) Homicidal thoughts are: denied Hallucinations: auditory (voices telling her to hurt herself), denies visual Cognition: memory grossly intact, attention grossly intact, language grossly intact Intelligence estimated to be: average Insight: fair Judgement: impaired Impression Still depressed with command hallucinations. Improvements with the new med regimen are minimal but want to give the changes enough time to work. Abilify up to 15 mg. as of this AM, with mild akathesia. Now off of Latuda and Zoloft, Lamictal up to 200 mg. Her condition has been treatment resistant since June when her mother , and she has had 2 hospitalizations in that time. We will continue to consider other treatment options, including possible TMS or ECT. She has a robust OP program and if this plus med changes does not stabilize her condition, we may consider tMS/ECT sooner rather than later. Plan (1) Schizoaffective disorder, depressive type 12/18 - Increase lamictal to 150 mg. daily - Reduce Latuda to 120 mg. with dinner, and start Abilify 2.5 mg. daily. R/B /A reviewed and accepted including risk for TD - Reduce Zoloft to 100 mg. daily and start Lexapro 10 mg. daily. R/B/A reviewed and accepted - Continue navane both scheduled and prn, as well as Klonopin - Q 15 min checks for safety - Encourage participation in group and individual counseling - Coordinate with her OP supports - Family meeting if indicated - Encourage other tactile coping strategies to avoid scratching behaviors 12/19 - Change navane to 10 mg. afternoon and 20 mg. HS. 12/20 -Reduce Latuda to 80 mg. daily and increase Abilify to 5 mg. daily - Continue to taper Zoloft to 50 mg. daily and increase Lexapro to 15 mg. daily - EKG - Repeat sodium 12/21 - Watch restlessness in converting to Abilify. We'll also need to watch psychosis as Abilify may attenuate the antipsychotic effect of the residual Latuda and navane - Reviewed sodium of 135 yesterday which was up trending 12/22 - will try to increase the abilify to 10mg tomorrow AM. will defer reduction of latuda tomorrow to judgement of primary team regarding how quickly they would like to taper. encourage use of klonopin prn's if needed. - bmp ordered for Friday AM for sodium 12/23 - Reduce Latuda to 40 mg. daily, continue Abilify 10 mg daily - Increase Lexapro to 20 mg. daily, continue Zoloft 50 mg. daily - Consider TMS if poorly responsive to meds. 12/24 - DC Latuda and increase Abilify to 12.5 mg. daily - DC Zoloft, continue Lexapro 20 mg. daily - Increase lamictal to 200 mg. daily 12/25 - Continue current meds, including clonazepam and thiothixene prn. Encourage her to use prns if needed, especially if feels unable to stop herself from self-harming. - Patient asking about trying hydroxyzine for anxiety, and advised she has it ordered prn and may try it. 12/26 - Increase Abilify to 15 mg. daily 12/27 - Continue current meds (2) Type 2 diabetes mellitus 12/18 - BSG's daily - Continue home dose of metformin - Encourage activity 12/19 - FBS WNL at 93 (3) Hypertension 12/18 - Continue home dose of Cozaar - Monitor BP (4) Hypothyroidism 12/18 - TSH WNL at 2.5 - Continue home dose of levthyroxine (5) Dyslipidemia 12/18 - Continue home dose of Lipitor - Last FLP done in Feb 2016. Will order 12/19 - FLP WNL (6) Class II obesity 12/18 - Encourage walking or exercise bike (7) UTI (urinary tract infection) 12/18 - UA positive for gram negative bacilli. She denies being symptomatic. Will await sensitivity 12/19 - Sensitivity back. Sensitive to bactrim and she says that she has been on this in the past without problems. Discharge / Aftercare Planning Primary Care Physician: Name: Dr Tam Appointment Notes: Patient states this is a new provider, will be seeing him 07/20 Psychiatrist: Name: Kassandra Hay Therapist: Name: Lamar Miller Date of Appointment: Jan 10, 2017 Time of Appointment: 10am Weighmaster Lead: Name: Ramiro Santo Visit Code E&M Code: 28281 Inventory Assets Strengths: Support of family, many outpatient mental health providers, spirituality Needs: To learn to be assertive Risk Factors Assessment : Yes /single/: Yes Higher / Fall in social status: No Health problems: Yes Mental Health Diagnoses: Yes Substance use disorders: No Previous attempt: Yes Family history of suicide: Yes Previous psychiatric stay: Yes Hopelessness: No Smoker: No Protective Factors Assessment Jain beliefs: Yes : No Responsible for young children: No Employed: Yes Stable relationships: Yes Supportive family: Yes Good rapport with provider: Yes Data Vital Signs Last 24 Hrs: Date Time Temp Pulse Resp B/P (MAP) Pulse Ox O2 Delivery O2 Flow Rate FiO2 12/27/16 06:59 36.8 65 16 117/73 69 118/74 Meds Administered Last 24 Hrs: Meds Administered (Past 24Hrs) Medications (Trade) Dose Ordered Sig/Christofer Route Start Time Stop Time Status Last Admin Dose Admin Aripiprazole (Abilify Tab) 15 mg QAM PO 12/27/16 09:00 01/26/17 08:59 12/27/16 09:30 15 MG Lab Results Last 24 Hrs: Last 24 Hours Test 12/27/16 08:27 Bedside Glucose 92 mg/dl Problem Qualifiers (1) Type 2 diabetes mellitus: Diabetes mellitus complication status: without complication Diabetes mellitus exterminator termite insulin use: without snf use Qualified Codes: E11.9 - Type 2 diabetes mellitus without complications (2) Hypertension: Hypertension type: unspecified Qualified Codes: I10 - Essential (primary) hypertension (3) Hypothyroidism: Hypothyroidism type: unspecified Qualified Codes: E03.9 - Hypothyroidism, unspecified
[2016-12-27] MEDS: THIOTHIXENE 5 MG CAP PO SCH ×2 (13:20→20:56)
[2016-12-27] MEDS: DESMOPRESSIN ACETATE 0.1 MG TAB PO SCH (20:56)
[2016-12-27] MEDS: ATORVASTATIN 10 MG TAB PO SCH (20:56)
[2016-12-27] MEDS: MONTELUKAST SOD 10 MG TAB PO SCH (20:56)
[2016-12-28] MEDS: hydrOXYzine HCL 25 MG TAB PO PRN (01:43)
[2016-12-28 07:14] VITALS: BP_SYST 127; BP_SYST 137; BP_DIAS 83; BP_DIAS 84; PULSE 71; PULSE 73; TEMP 36.7
[2016-12-28] MEDS: MULTIVITAMIN TAB PO SCH (08:35)
[2016-12-28] MEDS: ESCITALOPRAM OXALATE 20 MG TAB PO SCH (08:35)
[2016-12-28] MEDS: METFORMIN HCL 500 MG TAB PO SCH ×2 (08:35→17:29)
[2016-12-28] MEDS: LEVOTHYROXINE 125 MCG TAB PO SCH (08:35)
[2016-12-28] MEDS: ARIPIprazole TAB 15 MG TAB PO SCH (08:35)
[2016-12-28] MEDS: LACTOBACILLUS ACIDOPHILUS (FLORANEX) TAB PO SCH (08:35)
[2016-12-28] MEDS: LOSARTAN POTASSIUM 50 MG TAB PO SCH (08:35)
[2016-12-28] MEDS: ESTRADIOL 1 MG TAB PO SCH (08:35)
[2016-12-28] MEDS: CHOLECALCIFEROL 1000 INTER.UNIT TAB PO SCH (08:36)
[2016-12-28] MEDS: CLONAZEPAM 0.5 MG TAB PO SCH ×3 (08:37→20:52)
--- NOTE | 2016-12-28 10:39 | Psychiatric Progress Notes ---
Progress Note Date of Service Dec 28, 2016. Interval History 46 yo woman with schizoaffective disorder who has been in deterioration since her mother in June 2016. I have conferred with Dr. Urbina with respect to her medications, as she has been on many of these meds for years, at high doses, and they are not working. The patient is willing to make some rather sweeping changes since she is in a safe environment, and so will initiate the following changes: since admission increased lamictal, tapering off latuda now on abilify, and tapered off zoloft titrated onto lexapro Will continue klonopin and navane for now, but would like to taper both if we find success with the above changes. We will continue her medical meds, monitor BS's and encourage activity. We will coordinate with her other OP providers as well. At this time, the patient requires inpatient treatment due to the severity of her condition and the risk for self harm if discharged. Chief Complaint "[]". Subjective Patient was seen & assessed interval progress reviewed with [Treatment Team] [ Nursing] Sleep Information Total Hours of Sleep: 7.25 Meal Information Percent of Breakfast Consumed: 100 Percent of Lunch Consumed: 90 Percent of Dinner Consumed: 100 Mental Status Exam During interview pt is: alert and oriented, cooperative Appearance: appropriately dressed, appropriately groomed Eye contact is: poor (staring at the floor) Motor behavior is: tremor Speech: normal in rate, rhythm & volume Affect: depressed, anxious, constricted Mood is: depressed, anxious Thought process: goal directed Thought content: reality based without delusions Suicidal thought are: present, Plan: present (to overdose on medications), Intent: denied (while in hospital, but cannot contract for safety outside the hospital) Homicidal thoughts are: denied Hallucinations: auditory (voices telling her to hurt herself), denies visual Cognition: memory grossly intact, attention grossly intact, language grossly intact Intelligence estimated to be: average Insight: fair Judgement: impaired Impression Still depressed with command hallucinations. Improvements with the new med regimen are minimal but want to give the changes enough time to work. Abilify up to 15 mg. as of this AM, with mild akathesia. Now off of Latuda and Zoloft, Lamictal up to 200 mg. Her condition has been treatment resistant since June when her mother , and she has had 2 hospitalizations in that time. We will continue to consider other treatment options, including possible TMS or ECT. She has a robust OP program and if this plus med changes does not stabilize her condition, we may consider tMS/ECT sooner rather than later. Plan (1) Schizoaffective disorder, depressive type 12/18 - Increase lamictal to 150 mg. daily - Reduce Latuda to 120 mg. with dinner, and start Abilify 2.5 mg. daily. R/B /A reviewed and accepted including risk for TD - Reduce Zoloft to 100 mg. daily and start Lexapro 10 mg. daily. R/B/A reviewed and accepted - Continue navane both scheduled and prn, as well as Klonopin - Q 15 min checks for safety - Encourage participation in group and individual counseling - Coordinate with her OP supports - Family meeting if indicated - Encourage other tactile coping strategies to avoid scratching behaviors 12/19 - Change navane to 10 mg. afternoon and 20 mg. HS. 12/20 -Reduce Latuda to 80 mg. daily and increase Abilify to 5 mg. daily - Continue to taper Zoloft to 50 mg. daily and increase Lexapro to 15 mg. daily - EKG - Repeat sodium 12/21 - Watch restlessness in converting to Abilify. We'll also need to watch psychosis as Abilify may attenuate the antipsychotic effect of the residual Latuda and navane - Reviewed sodium of 135 yesterday which was up trending 12/22 - will try to increase the abilify to 10mg tomorrow AM. will defer reduction of latuda tomorrow to judgement of primary team regarding how quickly they would like to taper. encourage use of klonopin prn's if needed. - bmp ordered for Friday AM for sodium 12/23 - Reduce Latuda to 40 mg. daily, continue Abilify 10 mg daily - Increase Lexapro to 20 mg. daily, continue Zoloft 50 mg. daily - Consider TMS if poorly responsive to meds. 12/24 - DC Latuda and increase Abilify to 12.5 mg. daily - DC Zoloft, continue Lexapro 20 mg. daily - Increase lamictal to 200 mg. daily 12/25 - Continue current meds, including clonazepam and thiothixene prn. Encourage her to use prns if needed, especially if feels unable to stop herself from self-harming. - Patient asking about trying hydroxyzine for anxiety, and advised she has it ordered prn and may try it. 12/26 - Increase Abilify to 15 mg. daily 12/27 - Continue current meds (2) Type 2 diabetes mellitus 12/18 - BSG's daily - Continue home dose of metformin - Encourage activity 12/19 - FBS WNL at 93 (3) Hypertension 12/18 - Continue home dose of Cozaar - Monitor BP (4) Hypothyroidism 12/18 - TSH WNL at 2.5 - Continue home dose of levthyroxine (5) Dyslipidemia 12/18 - Continue home dose of Lipitor - Last FLP done in Feb 2016. Will order 12/19 - FLP WNL (6) Class II obesity 12/18 - Encourage walking or exercise bike (7) UTI (urinary tract infection) 12/18 - UA positive for gram negative bacilli. She denies being symptomatic. Will await sensitivity 12/19 - Sensitivity back. Sensitive to bactrim and she says that she has been on this in the past without problems. Discharge / Aftercare Planning Primary Care Physician: Name: Dr Tam Appointment Notes: Patient states this is a new provider, will be seeing him 07/20 Psychiatrist: Name: Kassandra Hay Therapist: Name: Lamar Miller Date of Appointment: Jan 10, 2017 Time of Appointment: 10am Clean Room Operator: Name: Ramiro Santo Inventory Assets Strengths: Support of family, many outpatient mental health providers, spirituality Needs: To learn to be assertive Risk Factors Assessment : Yes /single/: Yes Higher / Fall in social status: No Health problems: Yes Mental Health Diagnoses: Yes Substance use disorders: No Previous attempt: Yes Family history of suicide: Yes Previous psychiatric stay: Yes Hopelessness: No Smoker: No Protective Factors Assessment Protestant beliefs: Yes : No Responsible for young children: No Employed: Yes Stable relationships: Yes Supportive family: Yes Good rapport with provider: Yes Data Vital Signs Last 24 Hrs: Date Time Temp Pulse Resp B/P (MAP) Pulse Ox O2 Delivery O2 Flow Rate FiO2 12/28/16 07:14 36.7 71 16 127/83 73 137/84 Meds Administered Last 24 Hrs: Meds Administered (Past 24Hrs) Medications (Trade) Dose Ordered Sig/Christofer Route Start Time Stop Time Status Last Admin Dose Admin Aripiprazole (Abilify Tab) 15 mg QAM PO 12/27/16 09:00 01/26/17 08:59 12/28/16 08:35 15 MG Lab Results Last 24 Hrs: Last 24 Hours Test 12/28/16 08:40 Bedside Glucose 91 mg/dl Problem Qualifiers (1) Type 2 diabetes mellitus: Diabetes mellitus complication status: without complication Diabetes mellitus termite renewal inspector insulin use: without termite renewal inspector use Qualified Codes: E11.9 - Type 2 diabetes mellitus without complications (2) Hypertension: Hypertension type: unspecified Qualified Codes: I10 - Essential (primary) hypertension (3) Hypothyroidism: Hypothyroidism type: unspecified Qualified Codes: E03.9 - Hypothyroidism, unspecified
--- NOTE | 2016-12-28 11:05 | Psychiatric Progress Notes ---
Progress Note Date of Service Dec 28, 2016. Interval History 46 yo woman with schizoaffective disorder who has been in deterioration since her mother in June 2016. Kassandra VALERIO who is familiar wtih this patient from her outpatient practice has conferred with Dr. Urbina with respect to medications, as the patient has been on many of her medications for years, at high doses, and they are not working. The patient at admission was willing to make some rather sweeping changes since she is in a safe environment, and since admission increased lamictal, tapering off latuda now on abilify, and tapered off zoloft titrated onto lexapro. Klonopin and navane were continued, but Ms Hay would like to taper both if we find success with the above changes. We will continue her medical meds, monitor BS's and encourage activity. We will coordinate with her other OP providers as well. At this time , the patient requires inpatient treatment due to the severity of her condition and the risk for self harm if discharged. Chief Complaint "I am terribly depressed". Subjective Patient was seen & assessed interval progress reviewed with Dr Nicole and Nursing Chart reviewed. Patient met with in her room. She gets out of bed, turns off noise machine and engages actively with this provider. SHe is spontaneous but does remain blunted and states she is depressed. She feels clozaril historically was helpful but the weight gain was not sustainable and has lost weight >75lbs since being off by her report, she felt saphris was helpful but that it also caused weight gain, furthermore she feels navane helps and is not interested in being off that. She does not feel the medication changes have caused her side effects but no clear benefit with ongoing AH of her grandfather's voice telling her to hurt herself, worse in the afternoon and evening. She took a prn of navane. She took prn vistaril overnight to assist wtih sleep "the lowest dose and it seemed to help, as I am trying not to take klonopin in the middle of the night like I did at home" She had SI in the form of the AH last night told to take her medications but denies active intention , she has not been scratching at her wrists. She states her thoughts are racing "they always are" but denies other DIGFAST of benny. She reports her mood is a 3/10 (10 best/euthymic, 0 most depressed) and anxiety is "high" worries about "what if Kassandra retires?" She denies overt SE to the abilify but there is some report of feeling restless and it is not wholly clear if it was happening prior to admission or just since start of abilify as patient states both, she has declined artane offered by Ms Hay to reduce polypharmacy and states it is tolerable. She reports her resting tremor right hand greater than left preceded her inpatient stay and is unclear if it is increased or not. She denies tightness of her jaw, neck or tongue. Review of Systems as above Sleep Information Total Hours of Sleep: 7.25 Meal Information Percent of Breakfast Consumed: 100 Percent of Lunch Consumed: 90 Percent of Dinner Consumed: 100 Mental Status Exam During interview pt is: alert and oriented, cooperative Appearance: appropriately dressed, appropriately groomed Eye contact is: good (makes good EC and is engaged with this provider), poor Motor behavior is: tremor (right>Left resting tremor with pill rolling manner, minimal fine tremor on hand extension) Speech: normal in rate, rhythm & volume Affect: depressed, anxious, constricted Mood is: depressed, anxious Thought process: goal directed Thought content: reality based without delusions Suicidal thought are: present, Plan: present (to overdose on medications), Intent: denied (while in hospital, but cannot contract for safety outside the hospital) Homicidal thoughts are: denied Hallucinations: auditory (voices telling her to hurt herself), denies visual Cognition: memory grossly intact, attention grossly intact, language grossly intact Intelligence estimated to be: average Insight: fair Judgement: impaired Impression Still depressed with command hallucinations. Improvements with the new med regimen are minimal but want to give the changes enough time to work. Abilify up to 15 mg. as of this AM, with mild akathesia. Now off of Latuda and Zoloft, Lamictal up to 200 mg. Her condition has been treatment resistant since June when her mother , and she has had 2 hospitalizations in that time. We will continue to consider other treatment options, including possible TMS or ECT. She has a robust OP program and if this plus med changes does not stabilize her condition, we may consider tMS/ECT sooner rather than later. Plan (1) Schizoaffective disorder, depressive type 12/18 - Increase lamictal to 150 mg. daily - Reduce Latuda to 120 mg. with dinner, and start Abilify 2.5 mg. daily. R/B /A reviewed and accepted including risk for TD - Reduce Zoloft to 100 mg. daily and start Lexapro 10 mg. daily. R/B/A reviewed and accepted - Continue navane both scheduled and prn, as well as Klonopin - Q 15 min checks for safety - Encourage participation in group and individual counseling - Coordinate with her OP supports - Family meeting if indicated - Encourage other tactile coping strategies to avoid scratching behaviors 12/19 - Change navane to 10 mg. afternoon and 20 mg. HS. 12/20 -Reduce Latuda to 80 mg. daily and increase Abilify to 5 mg. daily - Continue to taper Zoloft to 50 mg. daily and increase Lexapro to 15 mg. daily - EKG - Repeat sodium 12/21 - Watch restlessness in converting to Abilify. We'll also need to watch psychosis as Abilify may attenuate the antipsychotic effect of the residual Latuda and navane - Reviewed sodium of 135 yesterday which was up trending 12/22 - will try to increase the abilify to 10mg tomorrow AM. will defer reduction of latuda tomorrow to judgement of primary team regarding how quickly they would like to taper. encourage use of klonopin prn's if needed. - bmp ordered for Friday AM for sodium 12/23 - Reduce Latuda to 40 mg. daily, continue Abilify 10 mg daily - Increase Lexapro to 20 mg. daily, continue Zoloft 50 mg. daily - Consider TMS if poorly responsive to meds. 12/24 - DC Latuda and increase Abilify to 12.5 mg. daily - DC Zoloft, continue Lexapro 20 mg. daily - Increase lamictal to 200 mg. daily 12/25 - Continue current meds, including clonazepam and thiothixene prn. Encourage her to use prns if needed, especially if feels unable to stop herself from self-harming. - Patient asking about trying hydroxyzine for anxiety, and advised she has it ordered prn and may try it. 12/26 - Increase Abilify to 15 mg. daily 7/28 - Continue current meds 12/28/16 - she is showing some partial improvement as mood is a 3/10 today up from a 1 , and making good EC and is engaged with this provider and showing volition to rise out of the bed and sit in her chair to meet. Will monitor over 1-2 days as her abilify was incereased to 15m on 12/26/16 and this may be sign she is getting some benefit. { Options include consider optimization of abilify to 20 or 30mg watching for further akathisia, or addition of loxitane to target ongoing depression and psychosis, EKG WNL from 12/20/16 QTc 399msec, NSR with 71bpm} (2) Type 2 diabetes mellitus 12/18 - BSG's daily - Continue home dose of metformin - Encourage activity 12/19 - FBS WNL at 93 (3) Hypertension 12/18 - Continue home dose of Cozaar - Monitor BP (4) Hypothyroidism 12/18 - TSH WNL at 2.5 - Continue home dose of levthyroxine (5) Dyslipidemia 12/18 - Continue home dose of Lipitor - Last FLP done in Feb 2016. Will order 12/19 - FLP WNL (6) Class II obesity 12/18 - Encourage walking or exercise bike (7) UTI (urinary tract infection) 12/18 - UA positive for gram negative bacilli. She denies being symptomatic. Will await sensitivity 12/19 - Sensitivity back. Sensitive to bactrim and she says that she has been on this in the past without problems. Discharge / Aftercare Planning Primary Care Physician: Name: Dr Tam Appointment Notes: Patient states this is a new provider, will be seeing him 07/20 Psychiatrist: Name: Kassandra Hay Therapist: Name: Lamar Miller Date of Appointment: Jan 10, 2017 Time of Appointment: 10am Lead Sales Consultant: Name: Ramiro Hansa Visit Code E&M Code: 12304 Inventory Assets Strengths: Support of family, many outpatient mental health providers, spirituality Needs: To learn to be assertive Risk Factors Assessment : Yes /single/: Yes Higher / Fall in social status: No Health problems: Yes Mental Health Diagnoses: Yes Substance use disorders: No Previous attempt: Yes Family history of suicide: Yes Previous psychiatric stay: Yes Hopelessness: No Smoker: No Protective Factors Assessment Caodaism beliefs: Yes : No Responsible for young children: No Employed: Yes Stable relationships: Yes Supportive family: Yes Good rapport with provider: Yes Data Vital Signs Last 24 Hrs: Date Time Temp Pulse Resp B/P (MAP) Pulse Ox O2 Delivery O2 Flow Rate FiO2 12/28/16 07:14 36.7 71 16 127/83 73 137/84 Meds Administered Last 24 Hrs: Meds Administered (Past 24Hrs) Medications (Trade) Dose Ordered Sig/Christofer Route Start Time Stop Time Status Last Admin Dose Admin Aripiprazole (Abilify Tab) 15 mg QAM PO 12/27/16 09:00 01/26/17 08:59 12/28/16 08:35 15 MG Lab Results Last 24 Hrs: Last 24 Hours Test 12/28/16 08:40 Bedside Glucose 91 mg/dl Problem Qualifiers (1) Type 2 diabetes mellitus: Diabetes mellitus complication status: without complication Diabetes mellitus assisted insulin use: without bed bug exterminator use Qualified Codes: E11.9 - Type 2 diabetes mellitus without complications (2) Hypertension: Hypertension type: unspecified Qualified Codes: I10 - Essential (primary) hypertension (3) Hypothyroidism: Hypothyroidism type: unspecified Qualified Codes: E03.9 - Hypothyroidism, unspecified
[2016-12-28] MEDS: THIOTHIXENE 5 MG CAP PO SCH ×2 (14:01→20:51)
[2016-12-28] MEDS: DESMOPRESSIN ACETATE 0.1 MG TAB PO SCH (20:51)
[2016-12-28] MEDS: ATORVASTATIN 10 MG TAB PO SCH (20:51)
[2016-12-28] MEDS: MONTELUKAST SOD 10 MG TAB PO SCH (20:52)
[2016-12-29 06:39] VITALS: BP_SYST 115; BP_SYST 123; BP_DIAS 73; BP_DIAS 80; PULSE 65; PULSE 67; TEMP 36.7
[2016-12-29] MEDS: ARIPIprazole TAB 15 MG TAB PO SCH (08:43)
[2016-12-29] MEDS: MULTIVITAMIN TAB PO SCH (08:43)
[2016-12-29] MEDS: METFORMIN HCL 500 MG TAB PO SCH ×2 (08:44→17:24)
[2016-12-29] MEDS: LOSARTAN POTASSIUM 50 MG TAB PO SCH (08:44)
[2016-12-29] MEDS: CHOLECALCIFEROL 1000 INTER.UNIT TAB PO SCH (08:44)
[2016-12-29] MEDS: ESTRADIOL 1 MG TAB PO SCH (08:44)
[2016-12-29] MEDS: LACTOBACILLUS ACIDOPHILUS (FLORANEX) TAB PO SCH (08:44)
[2016-12-29] MEDS: ESCITALOPRAM OXALATE 20 MG TAB PO SCH (08:44)
[2016-12-29] MEDS: LEVOTHYROXINE 125 MCG TAB PO SCH (08:44)
[2016-12-29] MEDS: CLONAZEPAM 0.5 MG TAB PO SCH ×3 (08:45→20:47)
--- NOTE | 2016-12-29 11:09 | Psychiatric Progress Notes ---
Progress Note Date of Service Dec 29, 2016. Interval History 46 yo woman with schizoaffective disorder who has been in deterioration since her mother in June 2016. Kassandra VALERIO who is familiar wtih this patient from her outpatient practice has conferred with Dr. Urbina with respect to medications, as the patient has been on many of her medications for years, at high doses, and they are not working. The patient at admission was willing to make some rather sweeping changes since she is in a safe environment, and since admission increased lamictal, tapering off latuda now on abilify, and tapered off zoloft titrated onto lexapro. Klonopin and navane were continued, but Ms Hay would like to taper both if we find success with the above changes. We will continue her medical meds, monitor BS's and encourage activity. We will coordinate with her other OP providers as well. At this time , the patient requires inpatient treatment due to the severity of her condition and the risk for self harm if discharged. Chief Complaint "I am feeling depressed". Subjective Patient was seen & assessed interval progress reviewed with nursing Patient reported significant AH yesterday around 2pm and took her 2pm Navane, she continues to isolate and reported feeling depressed to Pm staff yesterday. She did have a visit from her anabaptism members that went well. Met with patient today who notes "this morning is a little better, I am a 3/10" (10 best/euthymic, 0 worst depression) "but still very depressed" She has AH worse in the afternoon and evening and asks for her Navane to be moved from 1400 to closer to [id number] "when I take it at home" to avoid having the voices become so strong that she feels further demoralized. She states "I am willing to try anything I am becoming hopeless" SHe denies overt suicidal intention here as she does not have access to medications but having a hard time having hope and unable to say how she could keep herself safe if not here in the hospital She has fleeting thoughts of not living anymore. She denies feeling paranoid here and feels safe, denies any developed delusions to this provider. SHe denies specific physical concerns and is sleeping well, denies SE from medications that she can tell at this time other than the EPS like shaking from Navane. Review of Systems as above, o/w patient denies Sleep Information Total Hours of Sleep: 8.25 Meal Information Percent of Breakfast Consumed: 100 Percent of Lunch Consumed: 100 Percent of Dinner Consumed: 100 Mental Status Exam During interview pt is: alert and oriented, cooperative Appearance: appropriately dressed, appropriately groomed Eye contact is: fair, poor (looks down when talking, but looks up at provider when listening) Motor behavior is: tremor (right>Left resting tremor with pill rolling manner, minimal fine tremor on hand extension) Speech: normal in rate, rhythm & volume Affect: depressed, anxious, constricted Mood is: depressed, anxious Thought process: goal directed Thought content: reality based without delusions Suicidal thought are: present, Plan: present (to overdose on medications), Intent: denied (while in hospital, but cannot contract for safety outside the hospital) Homicidal thoughts are: denied Hallucinations: auditory (voices telling her to hurt herself), denies visual Cognition: memory grossly intact, attention grossly intact, language grossly intact Intelligence estimated to be: average Insight: fair Judgement: impaired Impression Still depressed with command hallucinations. Improvements with the new med regimen are minimal but want to give the changes enough time to work. Abilify up to 15 mg. as of this AM, with mild akathesia. Now off of Latuda and Zoloft, Lamictal up to 200 mg. Her condition has been treatment resistant since June when her mother , and she has had 2 hospitalizations in that time. We will continue to consider other treatment options, including possible TMS or ECT. She has a robust OP program and if this plus med changes does not stabilize her condition, we may consider tMS/ECT sooner rather than later. Plan (1) Schizoaffective disorder, depressive type 12/18 - Increase lamictal to 150 mg. daily - Reduce Latuda to 120 mg. with dinner, and start Abilify 2.5 mg. daily. R/B /A reviewed and accepted including risk for TD - Reduce Zoloft to 100 mg. daily and start Lexapro 10 mg. daily. R/B/A reviewed and accepted - Continue navane both scheduled and prn, as well as Klonopin - Q 15 min checks for safety - Encourage participation in group and individual counseling - Coordinate with her OP supports - Family meeting if indicated - Encourage other tactile coping strategies to avoid scratching behaviors 12/19 - Change navane to 10 mg. afternoon and 20 mg. HS. 12/20 -Reduce Latuda to 80 mg. daily and increase Abilify to 5 mg. daily - Continue to taper Zoloft to 50 mg. daily and increase Lexapro to 15 mg. daily - EKG - Repeat sodium 12/21 - Watch restlessness in converting to Abilify. We'll also need to watch psychosis as Abilify may attenuate the antipsychotic effect of the residual Latuda and navane - Reviewed sodium of 135 yesterday which was up trending 12/22 - will try to increase the abilify to 10mg tomorrow AM. will defer reduction of latuda tomorrow to judgement of primary team regarding how quickly they would like to taper. encourage use of klonopin prn's if needed. - bmp ordered for Friday AM for sodium 12/23 - Reduce Latuda to 40 mg. daily, continue Abilify 10 mg daily - Increase Lexapro to 20 mg. daily, continue Zoloft 50 mg. daily - Consider TMS if poorly responsive to meds. 12/24 - DC Latuda and increase Abilify to 12.5 mg. daily - DC Zoloft, continue Lexapro 20 mg. daily - Increase lamictal to 200 mg. daily 12/25 - Continue current meds, including clonazepam and thiothixene prn. Encourage her to use prns if needed, especially if feels unable to stop herself from self-harming. - Patient asking about trying hydroxyzine for anxiety, and advised she has it ordered prn and may try it. 12/26 - Increase Abilify to 15 mg. daily 12/27 - Continue current meds 12/28/16 - she is showing some partial improvement as mood is a 3/10 today up from a 1 , and making good EC and is engaged with this provider and showing volition to rise out of the bed and sit in her chair to meet. Will monitor over 1-2 days as her abilify was incereased to 15m on 12/26/16 and this may be sign she is getting some benefit. { Options include consider optimization of abilify to 20 or 30mg watching for further akathisia, or addition of loxitane to target ongoing depression and psychosis, EKG WNL from 12/20/16 QTc 399msec, NSR with 71bpm} 12/29/16 - move navane to lunchtime (from 1400) at patient's request to help with earlier control of afternoon AH - increase abilify to 20mg today, goal to optimize what she is taking prior to adding additional medications - consider loxitane if the above is not tolerated or ineffective (2) Type 2 diabetes mellitus 12/18 - BSG's daily - Continue home dose of metformin - Encourage activity 12/19 - FBS WNL at 93 (3) Hypertension 12/18 - Continue home dose of Cozaar - Monitor BP (4) Hypothyroidism 12/18 - TSH WNL at 2.5 - Continue home dose of levthyroxine (5) Dyslipidemia 12/18 - Continue home dose of Lipitor - Last FLP done in Feb 2016. Will order 12/19 - FLP WNL (6) Class II obesity 12/18 - Encourage walking or exercise bike (7) UTI (urinary tract infection) 12/18 - UA positive for gram negative bacilli. She denies being symptomatic. Will await sensitivity 12/19 - Sensitivity back. Sensitive to bactrim and she says that she has been on this in the past without problems. Discharge / Aftercare Planning Primary Care Physician: Name: Dr Tam Appointment Notes: Patient states this is a new provider, will be seeing him 07/20 Psychiatrist: Name: Kassandra Hay Therapist: Name: Lamar Miller Date of Appointment: Jan 10, 2017 Time of Appointment: 10am Airport Ramp Attendant: Name: Ramiro Santo Visit Code E&M Code: 06136 Inventory Assets Strengths: Support of family, many outpatient mental health providers, spirituality Needs: To learn to be assertive Risk Factors Assessment : Yes /single/: Yes Higher / Fall in social status: No Health problems: Yes Mental Health Diagnoses: Yes Substance use disorders: No Previous attempt: Yes Family history of suicide: Yes Previous psychiatric stay: Yes Hopelessness: No Smoker: No Protective Factors Assessment Anabaptist beliefs: Yes : No Responsible for young children: No Employed: Yes Stable relationships: Yes Supportive family: Yes Good rapport with provider: Yes Data Vital Signs Last 24 Hrs: Date Time Temp Pulse Resp B/P (MAP) Pulse Ox O2 Delivery O2 Flow Rate FiO2 12/29/16 06:39 36.7 67 16 115/73 65 123/80 Meds Administered Last 24 Hrs: Current Inpatient Medications Medications (Trade) Dose Ordered Sig/Christofer Route Start Time Stop Time Status Last Admin Dose Admin Acetaminophen (Tylenol Tab) 650 mg Q4H PRN PO 12/17/16 18:00 01/16/17 17:59 Al Hydroxide/Mg Hydroxide (Maalox Susp) 30 ml Q4H PRN PO 12/17/16 18:00 01/16/17 17:59 Magnesium Hydroxide (Milk Of Magnesia Susp) 30 ml DAILY PRN PO 12/17/16 18:00 01/16/17 17:59 Sodium Chloride ([place] Nasal [place]) PRN PRN NA 12/17/16 18:00 01/16/17 17:59 Hydroxyzine HCl (Vistaril Tab) 50 mg HSZ PRN PO 12/17/16 18:00 01/16/17 17:59 Hydroxyzine HCl (Vistaril Tab) 25 mg Q4H PRN PO 12/17/16 18:00 01/16/17 17:59 12/28/16 01:43 25 MG Miscellaneous Information (Order Awaiting Action) 1 ea QS N/A 12/18/16 00:00 01/17/17 00:00 Atorvastatin Calcium (Lipitor Tab) 10 mg HS PO 12/17/16 21:00 01/16/17 20:59 12/28/16 20:51 10 MG Clonazepam (Klonopin Tab) 0.5 mg DAILY PRN PO 12/17/16 18:30 01/16/17 18:29 Clonazepam (Klonopin Tab) 0.5 mg TID PO 12/17/16 21:00 01/16/17 20:59 12/29/16 08:45 0.5 MG Estradiol (Estrace Tab) 1 mg QAM PO 12/18/16 09:00 01/17/17 08:59 12/29/16 08:44 1 MG Levothyroxine Sodium (Synthroid Tab) 125 mcg DAILYBB PO 12/18/16 07:00 01/17/17 06:59 12/29/16 08:44 125 MCG Losartan Potassium (coZAAR TAB) 50 mg QAM PO 12/18/16 09:00 01/17/17 08:59 12/29/16 08:44 50 MG Metformin HCl (Glucophage Tab) 500 mg DAILY@0800 PO 12/18/16 08:00 01/17/17 07:59 12/29/16 08:44 500 MG Montelukast Sodium (Singulair Tab) 10 mg HS PO 12/17/16 21:00 01/16/17 20:59 12/28/16 20:52 10 MG Multivitamins (Multivitamin Tab) 1 tab DAILY PO 12/18/16 09:00 01/17/17 08:59 12/29/16 08:43 1 TAB Thiothixene (Navane Cap) 10 mg DAILY PRN PO 12/17/16 18:30 01/16/17 18:29 12/25/16 16:37 10 MG Cholecalciferol (Vitamin D Tab) 5,000 inter.unit DAILY PO 12/18/16 09:00 01/17/17 08:59 12/29/16 08:44 5,000 INTER.UNIT Desmopressin Acetate (Desmopressin Acetate) 0.2 mg HS PO 12/17/16 21:00 01/16/17 20:59 12/28/16 20:51 0.2 MG Lactobacillus Acidophilus (Floranex Tab) 1 tab DAILY PO 12/18/16 09:00 01/17/17 08:59 12/29/16 08:44 1 TAB Metformin HCl (Glucophage Tab) 1,000 mg DAILY@1800 PO 12/17/16 18:41 01/16/17 18:40 12/28/16 17:29 1,000 MG Thiothixene (Navane Cap) 10 mg DAILY@1400 PO 12/19/16 14:00 01/18/17 13:59 12/28/16 14:01 10 MG Thiothixene (Navane Cap) 20 mg HS PO 12/19/16 22:00 01/18/17 21:59 12/28/16 20:51 20 MG Escitalopram Oxalate (Lexapro Tab) 20 mg QAM PO 12/24/16 09:00 01/23/17 08:59 12/29/16 08:44 20 MG Lamotrigine (Lamictal Tab) 200 mg QAM PO 12/25/16 09:00 01/24/17 08:59 12/29/16 08:43 200 MG Aripiprazole (Abilify Tab) 15 mg QAM PO 12/27/16 09:00 01/26/17 08:59 12/29/16 08:43 15 MG Lab Results Last 24 Hrs: Last 24 Hours Test 12/29/16 08:24 Bedside Glucose 97 mg/dl Problem Qualifiers (1) Type 2 diabetes mellitus: Diabetes mellitus complication status: without complication Diabetes mellitus terminologist insulin use: without alf use Qualified Codes: E11.9 - Type 2 diabetes mellitus without complications (2) Hypertension: Hypertension type: unspecified Qualified Codes: I10 - Essential (primary) hypertension (3) Hypothyroidism: Hypothyroidism type: unspecified Qualified Codes: E03.9 - Hypothyroidism, unspecified
[2016-12-29] MEDS ORDERED: ARIPIprazole TAB 5 MG TAB PO ONE (11:30)
[2016-12-29] MEDS: THIOTHIXENE 5 MG CAP PO SCH ×2 (12:38→20:46)
[2016-12-29] MEDS: DESMOPRESSIN ACETATE 0.1 MG TAB PO SCH (20:45)
[2016-12-29] MEDS: ATORVASTATIN 10 MG TAB PO SCH (20:45)
[2016-12-29] MEDS: MONTELUKAST SOD 10 MG TAB PO SCH (20:46)
[2016-12-30 07:03] VITALS: BP 123/72; PULSE 64; PULSE 65; TEMP 36.8
[2016-12-30] MEDS: METFORMIN HCL 500 MG TAB PO SCH ×2 (08:47→17:23)
[2016-12-30] MEDS: LOSARTAN POTASSIUM 50 MG TAB PO SCH (08:48)
[2016-12-30] MEDS: ARIPIprazole TAB 10 MG TAB PO SCH (08:48)
[2016-12-30] MEDS: ESTRADIOL 1 MG TAB PO SCH (08:48)
[2016-12-30] MEDS: LACTOBACILLUS ACIDOPHILUS (FLORANEX) TAB PO SCH (08:48)
[2016-12-30] MEDS: LEVOTHYROXINE 125 MCG TAB PO SCH (08:48)
[2016-12-30] MEDS: ESCITALOPRAM OXALATE 20 MG TAB PO SCH (08:49)
[2016-12-30] MEDS: CHOLECALCIFEROL 1000 INTER.UNIT TAB PO SCH (08:49)
[2016-12-30] MEDS: MULTIVITAMIN TAB PO SCH (08:49)
[2016-12-30] MEDS: CLONAZEPAM 0.5 MG TAB PO SCH ×3 (08:49→21:44)
--- NOTE | 2016-12-30 09:52 | Psychiatric Progress Notes ---
Progress Note Date of Service Dec 30, 2016. Interval History 46 yo woman with schizoaffective disorder who has been in deterioration since her mother in June 2016. Kassandra VALERIO who is familiar wtih this patient from her outpatient practice has conferred with Dr. Urbina with respect to medications, as the patient has been on many of her medications for years, at high doses, and they are not working. The patient at admission was willing to make some rather sweeping changes since she is in a safe environment, and since admission increased lamictal, tapering off latuda now on abilify, and tapered off zoloft titrated onto lexapro. Klonopin and navane were continued, but Ms Hay would like to taper both if we find success with the above changes. We will continue her medical meds, monitor BS's and encourage activity. We will coordinate with her other OP providers as well. At this time , the patient requires inpatient treatment due to the severity of her condition and the risk for self harm if discharged. Chief Complaint "The depression's still pretty bad.". Subjective Patient was seen & assessed interval progress reviewed with Treatment Team. Nursing reports that the patient had a difficult weekend with ongoing aud hallucinations, SI and depression. Daysi was moved to lunch because she was having a bad time in the early afternoon, and again between 4 and 6. Today she says that the voices are "not as bad" as are the SI. She is not acutely suicidal in the hospital, "but I worry about when I get out". Her father is to arrive today for a 2 week visit which she is looking forward to. She denies any increase in restlessness as we increase the Abilify. We discuss her meds and possible options for loxitane which she is open to, but says that she has previously been on Trilafon which made her jaw move. She is denying any physical complaints, reports that she is moving her bowels regularly. Review of Systems Constitutional: No fever, No chills, No sweats, No weight loss, No weakness, No fatigue, No problem reported ENT: No hearing loss, No unusual epistaxis, No nasal symptoms, No sore throat, No tinnitus, No dental problems, No trouble swallowing, No problem reported Respiratory: No cough, No sputum, No wheezing, No shortness of breath, No dyspnea on exertion, No dyspnea at rest, No hemoptysis, No problem reported Cardiovascular: No chest pain, No orthopnea, No PND, No edema, No claudication , No palpitations, No problem reported Abdomen: No pain, No nausea, No vomiting, No diarrhea, No constipation, No GI bleeding, No problem reported Musculoskeletal: + problem reported (walks with cane for stability) Neurologic: No memory loss, No paralysis, No weakness, No numbness/tingling, No vertigo, No balance problems, No problem reported Psychiatric: + depression symptoms, + anxiety Integumentary: No rash, No itch, No new/changing skin lesions, No color change , No bleeding, No problem reported Sleep Information Total Hours of Sleep: 8.25 Meal Information Percent of Breakfast Consumed: 100 Percent of Lunch Consumed: 95 Percent of Dinner Consumed: 100 Mental Status Exam During interview pt is: alert and oriented, cooperative Appearance: appropriately dressed, appropriately groomed Eye contact is: poor (looks at the floor) Motor behavior is: tremor (right>Left resting tremor with pill rolling manner, minimal fine tremor on hand extension) Speech: normal in rate, rhythm & volume Affect: depressed, anxious, constricted Mood is: depressed, anxious Thought process: goal directed Thought content: reality based without delusions Suicidal thought are: present, Plan: present (to overdose on medications), Intent: denied (while in hospital, but cannot contract for safety outside the hospital) Homicidal thoughts are: denied Hallucinations: auditory (voices telling her to hurt herself), denies visual Cognition: memory grossly intact, attention grossly intact, language grossly intact Intelligence estimated to be: average Insight: fair Judgement: impaired Impression Still depressed with command hallucinations. Improvements with the new med regimen are minimal but want to give the changes enough time to work. Abilify up to 20 mg., with mild akathesia. Now off of Latuda and Zoloft, Lamictal up to 200 mg. Her condition has been treatment resistant since June when her mother , and she has had 2 hospitalizations in that time. We will continue to consider other treatment options, including possible TMS or ECT. She has a robust OP program and if this plus med changes does not stabilize her condition , we may consider tMS/ECT sooner rather than later. Plan (1) Schizoaffective disorder, depressive type 12/18 - Increase lamictal to 150 mg. daily - Reduce Latuda to 120 mg. with dinner, and start Abilify 2.5 mg. daily. R/B /A reviewed and accepted including risk for TD - Reduce Zoloft to 100 mg. daily and start Lexapro 10 mg. daily. R/B/A reviewed and accepted - Continue navane both scheduled and prn, as well as Klonopin - Q 15 min checks for safety - Encourage participation in group and individual counseling - Coordinate with her OP supports - Family meeting if indicated - Encourage other tactile coping strategies to avoid scratching behaviors 12/19 - Change navane to 10 mg. afternoon and 20 mg. HS. 12/20 -Reduce Latuda to 80 mg. daily and increase Abilify to 5 mg. daily - Continue to taper Zoloft to 50 mg. daily and increase Lexapro to 15 mg. daily - EKG - Repeat sodium 12/21 - Watch restlessness in converting to Abilify. We'll also need to watch psychosis as Abilify may attenuate the antipsychotic effect of the residual Latuda and navane - Reviewed sodium of 135 yesterday which was up trending 12/22 - will try to increase the abilify to 10mg tomorrow AM. will defer reduction of latuda tomorrow to judgement of primary team regarding how quickly they would like to taper. encourage use of klonopin prn's if needed. - bmp ordered for Friday AM for sodium 12/23 - Reduce Latuda to 40 mg. daily, continue Abilify 10 mg daily - Increase Lexapro to 20 mg. daily, continue Zoloft 50 mg. daily - Consider TMS if poorly responsive to meds. 12/24 - DC Latuda and increase Abilify to 12.5 mg. daily - DC Zoloft, continue Lexapro 20 mg. daily - Increase lamictal to 200 mg. daily 12/25 - Continue current meds, including clonazepam and thiothixene prn. Encourage her to use prns if needed, especially if feels unable to stop herself from self-harming. - Patient asking about trying hydroxyzine for anxiety, and advised she has it ordered prn and may try it. 12/26 - Increase Abilify to 15 mg. daily 12/27 - Continue current meds 12/28/16 - she is showing some partial improvement as mood is a 3/10 today up from a 1 , and making good EC and is engaged with this provider and showing volition to rise out of the bed and sit in her chair to meet. Will monitor over 1-2 days as her abilify was incereased to 15m on 12/26/16 and this may be sign she is getting some benefit. { Options include consider optimization of abilify to 20 or 30mg watching for further akathisia, or addition of loxitane to target ongoing depression and psychosis, EKG WNL from 12/20/16 QTc 399msec, NSR with 71bpm} 12/29/16 - move navane to lunchtime (from 1400) at patient's request to help with earlier control of afternoon AH - increase abilify to 20mg today, goal to optimize what she is taking prior to adding additional medications - consider loxitane if the above is not tolerated or ineffective (2) Type 2 diabetes mellitus 12/18 - BSG's daily - Continue home dose of metformin - Encourage activity 12/19 - FBS WNL at 93 (3) Hypertension 12/18 - Continue home dose of Cozaar - Monitor BP (4) Hypothyroidism 12/18 - TSH WNL at 2.5 - Continue home dose of levthyroxine (5) Dyslipidemia 12/18 - Continue home dose of Lipitor - Last FLP done in Feb 2016. Will order 12/19 - FLP WNL (6) Class II obesity 12/18 - Encourage walking or exercise bike (7) UTI (urinary tract infection) 12/18 - UA positive for gram negative bacilli. She denies being symptomatic. Will await sensitivity 12/19 - Sensitivity back. Sensitive to bactrim and she says that she has been on this in the past without problems. Discharge / Aftercare Planning Primary Care Physician: Name: Dr Tam Appointment Notes: Patient states this is a new provider, will be seeing him 07/20 Psychiatrist: Name: Kassandra Hay Therapist: Name: Lamar Miller Date of Appointment: Jan 10, 2017 Time of Appointment: 10am Incident Response Engineer: Name: Ramiro Santo Visit Code E&M Code: 85646 Inventory Assets Strengths: Support of family, many outpatient mental health providers, spirituality Needs: To learn to be assertive Risk Factors Assessment : Yes /single/: Yes Higher / Fall in social status: No Health problems: Yes Mental Health Diagnoses: Yes Substance use disorders: No Previous attempt: Yes Family history of suicide: Yes Previous psychiatric stay: Yes Hopelessness: No Smoker: No Protective Factors Assessment Yazidism beliefs: Yes : No Responsible for young children: No Employed: Yes Stable relationships: Yes Supportive family: Yes Good rapport with provider: Yes Data Vital Signs Last 24 Hrs: Date Time Temp Pulse Resp B/P (MAP) Pulse Ox O2 Delivery O2 Flow Rate FiO2 12/30/16 07:03 36.8 64 18 123/72 65 Meds Administered Last 24 Hrs: Meds Administered (Past 24Hrs) Medications (Trade) Dose Ordered Sig/Christofer Route Start Time Stop Time Status Last Admin Dose Admin Aripiprazole (Abilify Tab) 20 mg QAM PO 12/30/16 09:00 01/26/17 08:59 12/30/16 08:48 20 MG Thiothixene (Navane Cap) 10 mg QDL PO 12/29/16 12:30 01/18/17 13:59 12/29/16 12:38 10 MG Aripiprazole (Abilify Tab) 5 mg 1130 ONCE PO 12/29/16 11:30 12/29/16 11:31 DC 12/29/16 12:38 5 MG Lab Results Last 24 Hrs: 12/17/16 16:27 Red Blood Count 4.57, Mean Corpuscular Volume 80.1, Mean Corpuscular Hemoglobin 27.1, Mean Corpuscular Hemoglobin Concent 33.9, Mean Platelet Volume 8.2, Neutrophils (%) (Auto) 55.9, Lymphocytes (%) (Auto) 36.1, Monocytes (%) (Auto) 7.8, Eosinophils (%) (Auto) 0.0, Basophils (%) (Auto) 0.0, Neutrophils # (Auto) 5.32, Lymphocytes # (Auto) 3.43, Monocytes # (Auto) 0.74, Eosinophils # (Auto) 0.00, Basophils # (Auto) 0.00 12/23/16 06:17 Test 12/17/16 00:00 12/17/16 16:27 12/19/16 07:05 12/23/16 06:17 Urine Color YELLOW Urine Appearance CLEAR (CLEAR) Urine pH 6.5 (4.5-7.5) Urine Specific [place] 1.006 (1.000-1.030) Urine Protein NEG (NEG) Urine Glucose (UA) NEG (NEG) Urine Ketones NEG (NEG) Urine Occult Blood NEG (NEG) Urine Nitrite NEG (NEG) Urine Bilirubin NEG (NEG) Urine Urobilinogen NEG (NEG) Urine Leukocyte Esterase MODERATE (NEG) Urine WBC (Auto) 5-10 /hpf (0-5) Urine RBC (Auto) 0-4 /hpf (0-4) Urine Hyaline Casts (Auto) 0 /lpf (0-5) Urine Epithelial Cells (Auto) 10-20 /lpf (0-5) Urine Bacteria (Auto) 1+ (NEG) Urine Opiates Screen NEG (NEG) Urine Methadone, Qualitative NEG (NEG) Urine Barbiturates NEG (NEG) Urine Phencyclidine (PCP) Level NEG (NEG) Ur Amphetamine/Methamphetamine NEG (NEG) MDMA (Ecstasy) Screen NEG (NEG) Urine Benzodiazepines Screen NEG (NEG) Urine Cocaine Metabolite NEG (NEG) Urine Marijuana (THC) NEG (NEG) White Blood Count 9.51 K/uL (4.8-10.8) Red Blood Count 4.57 M/uL (4.2-5.4) Hemoglobin 12.4 g/dL (12.0-16.0) Hematocrit 36.6 % (37-47) Mean Corpuscular Volume 80.1 fL (80-100) Mean Corpuscular Hemoglobin 27.1 pg (25-34) Mean Corpuscular Hemoglobin Concent 33.9 g/dl (32-36) Platelet Count 219 K/uL (130-400) Mean Platelet Volume 8.2 fL (7.4-10.4) Neutrophils (%) (Auto) 55.9 % Lymphocytes (%) (Auto) 36.1 % Monocytes (%) (Auto) 7.8 % Eosinophils (%) (Auto) 0.0 % Basophils (%) (Auto) 0.0 % Neutrophils # (Auto) 5.32 K/uL (1.4-6.5) Lymphocytes # (Auto) 3.43 K/uL (1.2-3.4) Monocytes # (Auto) 0.74 K/uL (0.11-0.59) Eosinophils # (Auto) 0.00 K/uL (0-0.5) Basophils # (Auto) 0.00 K/uL (0-0.2) RDW Standard Deviation 38.7 fL (36.4-46.3) RDW Coefficient of Variation 13.4 % (11.5-14.5) Immature Granulocyte % (Auto) 0.2 % Immature Granulocyte # (Auto) 0.02 K/uL (0.00-0.02) Total Bilirubin 0.3 mg/dl (0.2-1) Direct Bilirubin 0.1 mg/dl (0-0.2) Aspartate Amino Transf (AST/SGOT) 10 U/L (15-37) Alanine Aminotransferase (ALT/SGPT) 17 U/L (12-78) Alkaline Phosphatase 50 U/L (45-117) Total Protein 6.8 gm/dl (6.4-8.2) Albumin 4.0 gm/dl (3.4-5.0) Thyroid Stimulating Hormone (TSH) 2.500 uIu/ml (0.300-4.500) Ethyl Alcohol mg/dL < 3.0 mg/dl (0-3) Fasting Glucose 89 mg/dl (70-99) Triglycerides Level 61 mg/dl (0-150) Cholesterol Level 171 mg/dl (0-200) HDL Cholesterol 57 mg/dl LDL Cholesterol, Calculated 102 mg/dl VLDL Cholesterol, Calculated 12 mg/dl Cholesterol/HDL Ratio 3.0 Anion Gap 9.0 mmol/L (3-11) Est Creatinine Clear Calc Drug Dose 129.9 ml/min Estimated GFR () 122.9 Estimated GFR (Non- 106.1 BUN/Creatinine Ratio 25.2 (10-20) Calcium Level 9.0 mg/dl (8.5-10.1) Test 12/29/16 08:24 Bedside Glucose 97 mg/dl (70-90) Date/Time Source Procedure Growth Status 12/17/16 00:00 Urine , Clean Catch Urine Culture - Final Klebsiella Pneumoniae Complete Problem Qualifiers (1) Type 2 diabetes mellitus: Diabetes mellitus complication status: without complication Diabetes mellitus ferry terminal supervisor insulin use: without ferry terminal supervisor use Qualified Codes: E11.9 - Type 2 diabetes mellitus without complications (2) Hypertension: Hypertension type: unspecified Qualified Codes: I10 - Essential (primary) hypertension (3) Hypothyroidism: Hypothyroidism type: unspecified Qualified Codes: E03.9 - Hypothyroidism, unspecified
[2016-12-30] MEDS: THIOTHIXENE 5 MG CAP PO SCH ×2 (12:32→21:44)
--- NOTE | 2016-12-30 15:22 | Medical Student: BHU Only ---
Psychiatric Progress Note SUBJECTIVE: Patient is a 46 year old female who was admitted to the [facility] on a 201 voluntary commitment on 12/17/16. She has been diagnosed with schizoaffective disorder which has deteriorated since her mother on 06/22/16. Today she rated her mood as 2-3 out of 10, and has been feeling depressed. She has been consistently feeling this mood for the past week. She notes the voices she hears have are worse at night, but not worse than they have been previously. She noted her sound box and drinking coffee helps. She stated however that she can't drink too much coffee since it makes her shake. She has been attending all groups regularly and participates. She is looking forward to seeing her father this week and is hoping to be discharged while her father is here during the next 2 weeks. When talking about steps she is making towards being discharged, she refers to her strong support system at home. She states that she will have people help here with her medications, has a sound box at home to help with the voices, and will have a lock box with her medications. ROS: Complains of auditory hallucinations with the "voices getting worse at night", denies visual hallucinations. Slept 8.25 hours last night and reportedly slept well. MSE: Appearance is that of a casually dressed female who appears her stated age. The patient is cooperative with the interview. Eye contact is poor. Motor behavior is blunted. Speech: normal volume, rate, tone. Affect: depressed. Mood: "I feel depressed". Thought process: goal directed Thought content: realistic Perception: auditory hallucinations Cognition: The patient is oriented to grossly orientated to person, place and time. ASSESSMENT: Leisa is a 46 year old female who presents with Schizoaffective disorder, depressive type. Lately, she has had a stable mood of 2-3/10 and has been feeling depressed nearly every day. She continues to attend groups and make progress on discharge. She has started on working on measures to keep herself safe at home including locking her medications and ensuring she has a positive support system at home. PLAN: 1. Schizoaffective disorder, depressive type a. Continue monitoring of medications. On 12/29/16, moved Navane to lunch time from 2:00PM at patient's request. Increased Abilify to 20mg daily 2. T2DM a. Continue monitoring of blood glucose daily b. Continue metformin c. Encourage exercise 3. HTN a. Continue Cozaar b. Monitor BP 4. Hypothyroidism a. Continue levothyroxine 5. Dyslipidemia a. Continue Lipitor 6. Obesity a. Encourage walking or exercise bike 6. Medication Monitoring: a. POC Glucose, 87 on 12/19/16 b. Cholesterol, 171 on 12/19/16 c. TSH, 2.5 on 12/17/16 Date of Service: Dec 30, 2016.
[2016-12-30] MEDS: ATORVASTATIN 10 MG TAB PO SCH (21:44)
[2016-12-30] MEDS: DESMOPRESSIN ACETATE 0.1 MG TAB PO SCH (21:44)
[2016-12-30] MEDS: MONTELUKAST SOD 10 MG TAB PO SCH (21:44)
[2016-12-31 06:57] VITALS: BP_SYST 123; BP_SYST 93; BP_DIAS 64; BP_DIAS 81; PULSE 64; PULSE 71; TEMP 36.5
[2016-12-31] MEDS: LEVOTHYROXINE 125 MCG TAB PO SCH (08:28)
[2016-12-31] MEDS: ARIPIprazole TAB 10 MG TAB PO SCH (08:28)
[2016-12-31] MEDS: METFORMIN HCL 500 MG TAB PO SCH ×2 (08:28→18:06)
[2016-12-31] MEDS: ESCITALOPRAM OXALATE 20 MG TAB PO SCH (08:29)
[2016-12-31] MEDS: LACTOBACILLUS ACIDOPHILUS (FLORANEX) TAB PO SCH (08:29)
[2016-12-31] MEDS: LOSARTAN POTASSIUM 50 MG TAB PO SCH (08:29)
[2016-12-31] MEDS: ESTRADIOL 1 MG TAB PO SCH (08:29)
[2016-12-31] MEDS: CLONAZEPAM 0.5 MG TAB PO SCH ×3 (08:29→21:48)
[2016-12-31] MEDS: CHOLECALCIFEROL 1000 INTER.UNIT TAB PO SCH (08:30)
[2016-12-31] MEDS: MULTIVITAMIN TAB PO SCH (08:30)
--- NOTE | 2016-12-31 11:38 | Psychiatric Progress Notes ---
Progress Note Date of Service Dec 31, 2016. Interval History 46 yo woman with schizoaffective disorder who has been in deterioration since her mother in June 2016. Kassandra VALERIO who is familiar wtih this patient from her outpatient practice has conferred with Dr. Urbina with respect to medications, as the patient has been on many of her medications for years, at high doses, and they are not working. The patient at admission was willing to make some rather sweeping changes since she is in a safe environment, and since admission increased lamictal, tapering off latuda now on abilify, and tapered off zoloft titrated onto lexapro. Klonopin and navane were continued, but Ms Hay would like to taper both if we find success with the above changes. We will continue her medical meds, monitor BS's and encourage activity. We will coordinate with her other OP providers as well. At this time , the patient requires inpatient treatment due to the severity of her condition and the risk for self harm if discharged. Chief Complaint "I feel safer with my dad here.". Subjective Patient was seen & assessed interval progress reviewed with Treatment Team. The patient's father arrived from [facility] last night, and visited. She enjoyed seeing him and had a family meeting with him this AM. They discussed her current treatment and options for TMS/ECT. She has decided that she does not want to consider ECT as she does not have transportation, nor does she want to risk losing her short term memory. She is still open to the idea of TMS when she is stable. We review her meds again together and find that she has also had trials of topomax, imipramine, and geodon in the past. She is asking about giving Saphris another try, not remembering why she was taken off. She continues with depressed mood, rated 3/10, and continues to struggle with aud hallucinations on a daily basis, with little improvement since switching to Abilify. She also continues with SI, but says they are "a little better" since her dad is here. She is also happy to consider a referral to [facility] for med management after discharge. She says that she feels she would be safe at home since her dad is here, but cannot feel safe if he were not. Review of Systems Constitutional: + fatigue ENT: No hearing loss, No unusual epistaxis, No nasal symptoms, No sore throat, No tinnitus, No dental problems, No trouble swallowing, No problem reported Respiratory: No cough, No sputum, No wheezing, No shortness of breath, No dyspnea on exertion, No dyspnea at rest, No hemoptysis, No problem reported Cardiovascular: No chest pain, No orthopnea, No PND, No edema, No claudication , No palpitations, No problem reported Abdomen: No pain, No nausea, No vomiting, No diarrhea, No constipation, No GI bleeding, No problem reported Musculoskeletal: + problem reported (walks with cane for stability) Neurologic: No memory loss, No paralysis, No weakness, No numbness/tingling, No vertigo, No balance problems, No problem reported Psychiatric: + depression symptoms (with hallucinations), + anxiety Sleep Information Total Hours of Sleep: 7.75 Meal Information Percent of Breakfast Consumed: 100 Percent of Lunch Consumed: 90 Percent of Dinner Consumed: 95 Mental Status Exam During interview pt is: alert and oriented, cooperative Appearance: appropriately dressed, appropriately groomed Eye contact is: poor Motor behavior is: tremor (right>Left resting tremor with pill rolling manner, minimal fine tremor on hand extension) Speech: normal in rate, rhythm & volume Affect: depressed, anxious, constricted Mood is: depressed, anxious Thought process: goal directed Thought content: reality based without delusions Suicidal thought are: present, Plan: present (to overdose on medications), Intent: denied (while in hospital, but cannot contract for safety outside the hospital) Homicidal thoughts are: denied Hallucinations: auditory (voices telling her to hurt herself), denies visual Cognition: memory grossly intact, attention grossly intact, language grossly intact Intelligence estimated to be: average Insight: fair Judgement: impaired Impression Still depressed with command hallucinations. LIttle improvement with new medications. She is asking about returning to [facility], but after reviewing OP records, it seems that she was taken off of [facility] because it wasn't working, and was started on Latuda. She is happy that her father is here, but I am concerned that she will minimize her symptoms in order to discharge to be with him during his visit, but cannot feel safe if he were not here. Would like to consider TMS if their team would consider her stable enough to start that. Will explore with Dr. Espinal who is also stock and station agent this weekend. Plan (1) Schizoaffective disorder, depressive type 12/18 - Increase lamictal to 150 mg. daily - Reduce Latuda to 120 mg. with dinner, and start Abilify 2.5 mg. daily. R/B /A reviewed and accepted including risk for TD - Reduce Zoloft to 100 mg. daily and start Lexapro 10 mg. daily. R/B/A reviewed and accepted - Continue navane both scheduled and prn, as well as Klonopin - Q 15 min checks for safety - Encourage participation in group and individual counseling - Coordinate with her OP supports - Family meeting if indicated - Encourage other tactile coping strategies to avoid scratching behaviors 12/19 - Change navane to 10 mg. afternoon and 20 mg. HS. 12/20 -Reduce Latuda to 80 mg. daily and increase Abilify to 5 mg. daily - Continue to taper Zoloft to 50 mg. daily and increase Lexapro to 15 mg. daily - EKG - Repeat sodium 12/21 - Watch restlessness in converting to Abilify. We'll also need to watch psychosis as Abilify may attenuate the antipsychotic effect of the residual Latuda and navane - Reviewed sodium of 135 yesterday which was up trending 12/22 - will try to increase the abilify to 10mg tomorrow AM. will defer reduction of latuda tomorrow to judgement of primary team regarding how quickly they would like to taper. encourage use of klonopin prn's if needed. - bmp ordered for Friday AM for sodium 12/23 - Reduce Latuda to 40 mg. daily, continue Abilify 10 mg daily - Increase Lexapro to 20 mg. daily, continue Zoloft 50 mg. daily - Consider TMS if poorly responsive to meds. 12/24 - DC Latuda and increase Abilify to 12.5 mg. daily - DC Zoloft, continue Lexapro 20 mg. daily - Increase lamictal to 200 mg. daily 12/25 - Continue current meds, including clonazepam and thiothixene prn. Encourage her to use prns if needed, especially if feels unable to stop herself from self-harming. - Patient asking about trying hydroxyzine for anxiety, and advised she has it ordered prn and may try it. 12/26 - Increase Abilify to 15 mg. daily 12/27 - Continue current meds 12/28/16 - she is showing some partial improvement as mood is a 3/10 today up from a 1 , and making good EC and is engaged with this provider and showing volition to rise out of the bed and sit in her chair to meet. Will monitor over 1-2 days as her abilify was incereased to 15m on 12/26/16 and this may be sign she is getting some benefit. { Options include consider optimization of abilify to 20 or 30mg watching for further akathisia, or addition of loxitane to target ongoing depression and psychosis, EKG WNL from 12/20/16 QTc 399msec, NSR with 71bpm} 12/29/16 - move navane to lunchtime (from 1400) at patient's request to help with earlier control of afternoon AH - increase abilify to 20mg today, goal to optimize what she is taking prior to adding additional medications - consider loxitane if the above is not tolerated or ineffective 12/31 - Patient does not want to consider ECT, but will consider TMS. Will explore with Dr. Espinal who is stock and station agent this weekend. (2) Type 2 diabetes mellitus 12/18 - BSG's daily - Continue home dose of metformin - Encourage activity 12/19 - FBS WNL at 93 (3) Hypertension 12/18 - Continue home dose of Cozaar - Monitor BP (4) Hypothyroidism 12/18 - TSH WNL at 2.5 - Continue home dose of levthyroxine (5) Dyslipidemia 12/18 - Continue home dose of Lipitor - Last FLP done in Feb 2016. Will order 12/19 - FLP WNL (6) Class II obesity 12/18 - Encourage walking or exercise bike (7) UTI (urinary tract infection) 12/18 - UA positive for gram negative bacilli. She denies being symptomatic. Will await sensitivity 12/19 - Sensitivity back. Sensitive to bactrim and she says that she has been on this in the past without problems. Discharge / Aftercare Planning Primary Care Physician: Name: Dr Tam Appointment Notes: Patient states this is a new provider, will be seeing him 07/20 Psychiatrist: Name: Kassandra Hay Therapist: Name: Lamar Miller Date of Appointment: Jan 10, 2017 Time of Appointment: 10am [employer] Teacher'S Aide: Name: Ramiro Santo Visit Code E&M Code: 88156 Inventory Assets Strengths: Support of family, many outpatient mental health providers, spirituality Needs: To learn to be assertive Risk Factors Assessment : Yes /single/: Yes Higher / Fall in social status: No Health problems: Yes Mental Health Diagnoses: Yes Substance use disorders: No Previous attempt: Yes Family history of suicide: Yes Previous psychiatric stay: Yes Hopelessness: No Smoker: No Protective Factors Assessment Taoist beliefs: Yes : No Responsible for young children: No Employed: Yes Stable relationships: Yes Supportive family: Yes Good rapport with provider: Yes Data Vital Signs Last 24 Hrs: Date Time Temp Pulse Resp B/P (MAP) Pulse Ox O2 Delivery O2 Flow Rate FiO2 12/31/16 06:57 36.5 64 16 93/64 71 123/81 Meds Administered Last 24 Hrs: Meds Administered (Past 24Hrs) Medications (Trade) Dose Ordered Sig/Christofer Route Start Time Stop Time Status Last Admin Dose Admin Aripiprazole (Abilify Tab) 20 mg QAM PO 12/30/16 09:00 01/26/17 08:59 12/31/16 08:28 20 MG Thiothixene (Navane Cap) 10 mg QDL PO 12/29/16 12:30 01/18/17 13:59 12/30/16 12:32 10 MG Aripiprazole (Abilify Tab) 5 mg 1130 ONCE PO 12/29/16 11:30 12/29/16 11:31 DC 12/29/16 12:38 5 MG Lab Results Last 24 Hrs: Last 24 Hours Test 12/31/16 07:53 Bedside Glucose 100 mg/dl Problem Qualifiers (1) Type 2 diabetes mellitus: Diabetes mellitus complication status: without complication Diabetes mellitus terminal system operator insulin use: without terminal system operator use Qualified Codes: E11.9 - Type 2 diabetes mellitus without complications (2) Hypertension: Hypertension type: unspecified Qualified Codes: I10 - Essential (primary) hypertension (3) Hypothyroidism: Hypothyroidism type: unspecified Qualified Codes: E03.9 - Hypothyroidism, unspecified
[2016-12-31] MEDS: THIOTHIXENE 5 MG CAP PO SCH ×2 (13:22→21:49)
[2016-12-31] MEDS: MONTELUKAST SOD 10 MG TAB PO SCH (21:49)
[2016-12-31] MEDS: DESMOPRESSIN ACETATE 0.1 MG TAB PO SCH (21:49)
[2016-12-31] MEDS: ATORVASTATIN 10 MG TAB PO SCH (21:49)
[2017-01-01 06:55] VITALS: BP_SYST 122; BP_SYST 131; BP_DIAS 76; BP_DIAS 80; PULSE 65; PULSE 70; TEMP 36.9
[2017-01-01] MEDS: METFORMIN HCL 500 MG TAB PO SCH ×2 (08:13→17:35)
[2017-01-01] MEDS: CLONAZEPAM 0.5 MG TAB PO SCH ×3 (08:14→21:14)
[2017-01-01] MEDS: LOSARTAN POTASSIUM 50 MG TAB PO SCH (08:14)
[2017-01-01] MEDS: ARIPIprazole TAB 10 MG TAB PO SCH (08:14)
[2017-01-01] MEDS: ESTRADIOL 1 MG TAB PO SCH (08:15)
[2017-01-01] MEDS: MULTIVITAMIN TAB PO SCH (08:15)
[2017-01-01] MEDS: LACTOBACILLUS ACIDOPHILUS (FLORANEX) TAB PO SCH (08:15)
[2017-01-01] MEDS: LEVOTHYROXINE 125 MCG TAB PO SCH (08:15)
[2017-01-01] MEDS: CHOLECALCIFEROL 1000 INTER.UNIT TAB PO SCH (08:16)
[2017-01-01] MEDS: ESCITALOPRAM OXALATE 20 MG TAB PO SCH (08:16)
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
[2017-01-01] MEDS: THIOTHIXENE 5 MG CAP PO SCH ×2 (12:29→21:15)
[2017-01-01] MEDS: ATORVASTATIN 10 MG TAB PO SCH (21:15)
[2017-01-01] MEDS: MONTELUKAST SOD 10 MG TAB PO SCH (21:15)
[2017-01-01] MEDS: DESMOPRESSIN ACETATE 0.1 MG TAB PO SCH (21:15)
[2017-01-01] MEDS: CLONAZEPAM 0.5 MG TAB PO PRN (23:59)
[2017-01-02 06:52] VITALS: BP_SYST 111; BP_SYST 128; BP_DIAS 72; BP_DIAS 81; PULSE 65; PULSE 66; TEMP 36.9
[2017-01-02] MEDS: LEVOTHYROXINE 125 MCG TAB PO SCH (08:51)
[2017-01-02] MEDS: METFORMIN HCL 500 MG TAB PO SCH ×2 (08:51→17:38)
[2017-01-02] MEDS: ARIPIprazole TAB 10 MG TAB PO SCH (08:51)
[2017-01-02] MEDS: CLONAZEPAM 0.5 MG TAB PO SCH ×3 (08:52→22:26)
[2017-01-02] MEDS: LOSARTAN POTASSIUM 50 MG TAB PO SCH (08:52)
[2017-01-02] MEDS: MULTIVITAMIN TAB PO SCH (08:52)
[2017-01-02] MEDS: ESCITALOPRAM OXALATE 20 MG TAB PO SCH (08:52)
[2017-01-02] MEDS: ESTRADIOL 1 MG TAB PO SCH (08:52)
[2017-01-02] MEDS: CHOLECALCIFEROL 1000 INTER.UNIT TAB PO SCH (08:52)
[2017-01-02] MEDS: LACTOBACILLUS ACIDOPHILUS (FLORANEX) TAB PO SCH (08:52)
--- NOTE | 2017-01-02 11:20 | Psychiatric Progress Notes ---
Progress Note Date of Service Jan 02, 2017. Interval History 46 yo woman with schizoaffective disorder who has been in deterioration since her mother in June 2016. Kassandra VALERIO who is familiar wtih this patient from her outpatient practice has conferred with Dr. Urbina with respect to medications, as the patient has been on many of her medications for years, at high doses, and they are not working. The patient at admission was willing to make some rather sweeping changes since she is in a safe environment, and since admission increased lamictal, tapering off latuda now on abilify, and tapered off zoloft titrated onto lexapro. Klonopin and navane were continued, but Ms Hay would like to taper both if we find success with the above changes. We will continue her medical meds, monitor BS's and encourage activity. We will coordinate with her other OP providers as well. At this time , the patient requires inpatient treatment due to the severity of her condition and the risk for self harm if discharged. Chief Complaint "I'm still really depressed". Subjective Patient was seen & assessed interval progress reviewed with Treatment Team. Per staff, patient continues to struggle. Receive Klonopin when necessary yesterday. Has been struggling to adjust to new roommate and secondarily requested discharge. Expressed concern to staff that she had breast cancer associated with some redness of skin yesterday. On interview this morning, patient reports initially feeling a 1 out of 10 regarding her mood but this has improved to perhaps 2 or 3 out of 10 after going to group. She complains of continued depression, continued auditory hallucinations. She is unable to recall treatment history on mirtazapine. She is willing to stay in the hospital for continued treatment. Review of Systems Neurologic: + problem reported (denies dizziness or akithisia) Psychiatric: + depression symptoms Sleep Information Total Hours of Sleep: 7.25 Meal Information Percent of Breakfast Consumed: 100 Percent of Lunch Consumed: 100 Percent of Dinner Consumed: 100 Mental Status Exam During interview pt is: alert and oriented, cooperative Appearance: appropriately dressed, appropriately groomed Eye contact is: fair Motor behavior is: tremor (right>Left resting tremor with pill rolling manner, minimal fine tremor on hand extension) Speech: normal in rate, rhythm & volume Affect: depressed, anxious, constricted Mood is: depressed, anxious Thought process: goal directed Thought content: reality based without delusions Suicidal thought are: present, Plan: present (to overdose on medications), Intent: denied (while in hospital, but cannot contract for safety outside the hospital) Homicidal thoughts are: denied Hallucinations: auditory (voices telling her to hurt herself), denies visual Cognition: memory grossly intact, attention grossly intact, language grossly intact Intelligence estimated to be: average Insight: fair Judgement: impaired Impression Still depressed with command hallucinations. Little improvement despite multiple medication adjustments. She asked about returning to [facility], but after reviewing OP records, she was taken off of Saphris because it wasn't working, and was started on Latuda. She is happy that her father is here, but there is concern that she will minimize her symptoms in order to discharge to be with him during his visit, but cannot feel safe if he were not here. Would like to consider TMS if their team would consider her stable enough to start that. Will explore with Dr. Espinal who is also division director this weekend. Plan (1) Schizoaffective disorder, depressive type 12/18 - Increase lamictal to 150 mg. daily - Reduce Latuda to 120 mg. with dinner, and start Abilify 2.5 mg. daily. R/B /A reviewed and accepted including risk for TD - Reduce Zoloft to 100 mg. daily and start Lexapro 10 mg. daily. R/B/A reviewed and accepted - Continue navane both scheduled and prn, as well as Klonopin - Q 15 min checks for safety - Encourage participation in group and individual counseling - Coordinate with her OP supports - Family meeting if indicated - Encourage other tactile coping strategies to avoid scratching behaviors 12/19 - Change navane to 10 mg. afternoon and 20 mg. HS. 12/20 -Reduce Latuda to 80 mg. daily and increase Abilify to 5 mg. daily - Continue to taper Zoloft to 50 mg. daily and increase Lexapro to 15 mg. daily - EKG - Repeat sodium 12/21 - Watch restlessness in converting to Abilify. We'll also need to watch psychosis as Abilify may attenuate the antipsychotic effect of the residual Latuda and navane - Reviewed sodium of 135 yesterday which was up trending 12/22 - will try to increase the abilify to 10mg tomorrow AM. will defer reduction of latuda tomorrow to judgement of primary team regarding how quickly they would like to taper. encourage use of klonopin prn's if needed. - bmp ordered for Friday AM for sodium 12/23 - Reduce Latuda to 40 mg. daily, continue Abilify 10 mg daily - Increase Lexapro to 20 mg. daily, continue Zoloft 50 mg. daily - Consider TMS if poorly responsive to meds. 12/24 - DC Latuda and increase Abilify to 12.5 mg. daily - DC Zoloft, continue Lexapro 20 mg. daily - Increase lamictal to 200 mg. daily 12/25 - Continue current meds, including clonazepam and thiothixene prn. Encourage her to use prns if needed, especially if feels unable to stop herself from self-harming. - Patient asking about trying hydroxyzine for anxiety, and advised she has it ordered prn and may try it. 12/26 - Increase Abilify to 15 mg. daily 12/27 - Continue current meds 12/28/16 - she is showing some partial improvement as mood is a 3/10 today up from a 1 , and making good EC and is engaged with this provider and showing volition to rise out of the bed and sit in her chair to meet. Will monitor over 1-2 days as her abilify was increased to 15m on 12/26/16 and this may be sign she is getting some benefit. {Options include consider optimization of abilify to 20 or 30mg watching for further akathisia, or addition of loxitane to target ongoing depression and psychosis, EKG WNL from 12/20/16 QTc 399msec, NSR with 71bpm} 12/29/16 - move navane to lunchtime (from 1400) at patient's request to help with earlier control of afternoon AH - increase abilify to 20mg today, goal to optimize what she is taking prior to adding additional medications - consider loxitane if the above is not tolerated or ineffective 12/30 - aripiprazole increased to 20mg. 12/31 - 01/01 - Continue current meds - Patient does not want to consider ECT, but will consider TMS. Will explore with Dr. Espinal who is division director this weekend. 01/02 - start remeron 15mg po qhs for mood/anxiety augmentation. will need to watch weight. common risks and benefits reviewed with pt. she verbalized consent to trial. - consider further titration of abilify - unlikely a TMS candidate secondary to psychosis which is currently considered a contraindication (2) Type 2 diabetes mellitus 12/18 - BSG's daily - Continue home dose of metformin - Encourage activity 12/19 - FBS WNL at 93 (3) Hypertension 12/18 - Continue home dose of Cozaar - Monitor BP (4) Hypothyroidism 12/18 - TSH WNL at 2.5 - Continue home dose of levthyroxine (5) Dyslipidemia 12/18 - Continue home dose of Lipitor - Last FLP done in Feb 2016. Will order 12/19 - FLP WNL (6) Class II obesity 12/18 - Encourage walking or exercise bike (7) UTI (urinary tract infection) 12/18 - UA positive for gram negative bacilli. She denies being symptomatic. Will await sensitivity 12/19 - Sensitivity back. Sensitive to bactrim and she says that she has been on this in the past without problems. Discharge / Aftercare Planning Primary Care Physician: Name: Dr Tam Appointment Notes: Patient states this is a new provider, will be seeing him 07/20 Psychiatrist: Name: Kassandra Hay Therapist: Name: Lamar Miller Date of Appointment: Jan 10, 2017 Time of Appointment: 10am Telephone Clerk: Name: Ramiro Santo Visit Code E&M Code: 52749 Inventory Assets Strengths: Support of family, many outpatient mental health providers, spirituality Needs: To learn to be assertive Risk Factors Assessment : Yes /single/: Yes Higher / Fall in social status: No Health problems: Yes Mental Health Diagnoses: Yes Substance use disorders: No Previous attempt: Yes Family history of suicide: Yes Previous psychiatric stay: Yes Hopelessness: No Smoker: No Protective Factors Assessment Restorationist beliefs: Yes : No Responsible for young children: No Employed: Yes Stable relationships: Yes Supportive family: Yes Good rapport with provider: Yes Data Vital Signs Last 24 Hrs: Date Time Temp Pulse Resp B/P (MAP) Pulse Ox O2 Delivery O2 Flow Rate FiO2 01/02/17 06:52 36.9 65 16 111/72 66 128/81 Lab Results Last 24 Hrs: Last 24 Hours Test 01/02/17 08:39 Bedside Glucose 97 mg/dl Problem Qualifiers (1) Type 2 diabetes mellitus: Diabetes mellitus complication status: without complication Diabetes mellitus keno terminal operator insulin use: without long-term use Qualified Codes: E11.9 - Type 2 diabetes mellitus without complications (2) Hypertension: Hypertension type: unspecified Qualified Codes: I10 - Essential (primary) hypertension (3) Hypothyroidism: Hypothyroidism type: unspecified Qualified Codes: E03.9 - Hypothyroidism, unspecified
[2017-01-02] MEDS: THIOTHIXENE 5 MG CAP PO SCH ×2 (12:38→22:27)
[2017-01-02] MEDS: DESMOPRESSIN ACETATE 0.1 MG TAB PO SCH (22:26)
[2017-01-02] MEDS: ATORVASTATIN 10 MG TAB PO SCH (22:26)
[2017-01-02] MEDS: MONTELUKAST SOD 10 MG TAB PO SCH (22:27)
[2017-01-02] MEDS: MIRTAZAPINE TAB 15 MG TAB PO SCH (22:27)
[2017-01-03 06:57] VITALS: BP_SYST 105; BP_SYST 116; BP_DIAS 71; BP_DIAS 81; PULSE 65; PULSE 76; TEMP 36.9
[2017-01-03] MEDS: ARIPIprazole TAB 10 MG TAB PO SCH (08:56)
[2017-01-03] MEDS: LEVOTHYROXINE 125 MCG TAB PO SCH (08:56)
[2017-01-03] MEDS: METFORMIN HCL 500 MG TAB PO SCH ×2 (08:56→18:15)
[2017-01-03] MEDS: LOSARTAN POTASSIUM 50 MG TAB PO SCH (08:57)
[2017-01-03] MEDS: CLONAZEPAM 0.5 MG TAB PO SCH ×3 (08:57→21:08)
[2017-01-03] MEDS: ESCITALOPRAM OXALATE 20 MG TAB PO SCH (08:57)
[2017-01-03] MEDS: LACTOBACILLUS ACIDOPHILUS (FLORANEX) TAB PO SCH (08:57)
[2017-01-03] MEDS: CHOLECALCIFEROL 1000 INTER.UNIT TAB PO SCH (08:57)
[2017-01-03] MEDS: ESTRADIOL 1 MG TAB PO SCH (08:57)
[2017-01-03] MEDS: MULTIVITAMIN TAB PO SCH (08:57)
--- NOTE | 2017-01-03 10:37 | Psychiatric Progress Notes ---
Progress Note Date of Service Jan 03, 2017. Interval History 46 yo woman with schizoaffective disorder who has been in deterioration since her mother in June 2016. Kassandra VALERIO who is familiar wtih this patient from her outpatient practice has conferred with Dr. Urbina with respect to medications, as the patient has been on many of her medications for years, at high doses, and they are not working. The patient at admission was willing to make some rather sweeping changes since she is in a safe environment, and since admission increased lamictal, tapering off latuda now on abilify, and tapered off zoloft titrated onto lexapro. Klonopin and navane were continued, but Ms Hay would like to taper both if we find success with the above changes. We will continue her medical meds, monitor BS's and encourage activity. We will coordinate with her other OP providers as well. At this time , the patient requires inpatient treatment due to the severity of her condition and the risk for self harm if discharged. Chief Complaint "A little bit better.". Subjective Patient was seen & assessed interval progress reviewed with Treatment Team. Leisa says that she is doing a little better, something she says most every day. She continues to have hallucinations and is using the prn of navane on a daily basis. She is enjoying regular nightly visits with her father who is here for 2 weeks from [facility], and also had visits from some hindu friends. She is happy with the [facility] referral to help manage her meds as an additional safety measure against overdosing. She is finding the structure of the groups here to be helpful, knowing that she does better when she is active. She hopes to go home son to spend some time with her dad. She denies SI today. She is more comfortable with her roommate, saying that her roommate is more willing to let her have her curtains open in the day and to listen to her white noise machine, but still says "I'm a little bit scared of her.". Review of Systems Constitutional: No fever, No chills, No sweats, No weight loss, No weakness, No fatigue, No problem reported ENT: No hearing loss, No unusual epistaxis, No nasal symptoms, No sore throat, No tinnitus, No dental problems, No trouble swallowing, No problem reported Respiratory: No cough, No sputum, No wheezing, No shortness of breath, No dyspnea on exertion, No dyspnea at rest, No hemoptysis, No problem reported Cardiovascular: No chest pain, No orthopnea, No PND, No edema, No claudication , No palpitations, No problem reported Abdomen: No pain, No nausea, No vomiting, No diarrhea, No constipation, No GI bleeding, No problem reported Musculoskeletal: + problem reported (walks with a cane for stability) Neurologic: No memory loss, No paralysis, No weakness, No numbness/tingling, No vertigo, No balance problems, No problem reported Psychiatric: + depression symptoms (with hallucinations) Integumentary: No rash, No itch, No new/changing skin lesions, No color change , No bleeding, No problem reported Sleep Information Total Hours of Sleep: 9.25 Meal Information Percent of Breakfast Consumed: 100 Percent of Lunch Consumed: 90 Percent of Dinner Consumed: 100 Mental Status Exam During interview pt is: alert and oriented, cooperative Appearance: appropriately dressed, appropriately groomed Eye contact is: fair Motor behavior is: tremor (right>Left resting tremor with pill rolling manner, minimal fine tremor on hand extension) Speech: normal in rate, rhythm & volume Affect: depressed, anxious, constricted Mood is: depressed, anxious Thought process: goal directed Thought content: reality based without delusions Suicidal thought are: present, Plan: present (to overdose on medications), Intent: denied (while in hospital, but cannot contract for safety outside the hospital) Homicidal thoughts are: denied Hallucinations: auditory (voices telling her to hurt herself), denies visual Cognition: memory grossly intact, attention grossly intact, language grossly intact Intelligence estimated to be: average Insight: fair Judgement: impaired Impression Still depressed with command hallucinations but without SI today. Although she says she is doing better each day, objectively she does not look better. Eye contact is poor, there has been no change to the hallucinations and although she says she has no SI, she is focused on interventions that will limit her ability to OD. Loxitane has been considered due to higher efficacy with depression, and she has agreed to trial that this weekend. She is, however, on Abilify which will make availability of other antipsychotics, minimal. Will DC navane and add Loxitan 25 mg. BID and 25 mg. BID prn, adjusting dose as needed. If she continues to think she is better and without SI will likely DC on Friday to have time with her father who will be staying with her. ADD: Have been informed by pharmacy that Loxitane is no longer formulary, and calls to local pharmacies indicates that no one carries it because it is such an old agent. that being the case, will continue current navane. Plan (1) Schizoaffective disorder, depressive type 12/18 - Increase lamictal to 150 mg. daily - Reduce Latuda to 120 mg. with dinner, and start Abilify 2.5 mg. daily. R/B /A reviewed and accepted including risk for TD - Reduce Zoloft to 100 mg. daily and start Lexapro 10 mg. daily. R/B/A reviewed and accepted - Continue navane both scheduled and prn, as well as Klonopin - Q 15 min checks for safety - Encourage participation in group and individual counseling - Coordinate with her OP supports - Family meeting if indicated - Encourage other tactile coping strategies to avoid scratching behaviors 12/19 - Change navane to 10 mg. afternoon and 20 mg. HS. 12/20 -Reduce Latuda to 80 mg. daily and increase Abilify to 5 mg. daily - Continue to taper Zoloft to 50 mg. daily and increase Lexapro to 15 mg. daily - EKG - Repeat sodium 12/21 - Watch restlessness in converting to Abilify. We'll also need to watch psychosis as Abilify may attenuate the antipsychotic effect of the residual Latuda and navane - Reviewed sodium of 135 yesterday which was up trending 12/22 - will try to increase the abilify to 10mg tomorrow AM. will defer reduction of latuda tomorrow to judgement of primary team regarding how quickly they would like to taper. encourage use of klonopin prn's if needed. - bmp ordered for Friday AM for sodium 12/23 - Reduce Latuda to 40 mg. daily, continue Abilify 10 mg daily - Increase Lexapro to 20 mg. daily, continue Zoloft 50 mg. daily - Consider TMS if poorly responsive to meds. 12/24 - DC Latuda and increase Abilify to 12.5 mg. daily - DC Zoloft, continue Lexapro 20 mg. daily - Increase lamictal to 200 mg. daily 12/25 - Continue current meds, including clonazepam and thiothixene prn. Encourage her to use prns if needed, especially if feels unable to stop herself from self-harming. - Patient asking about trying hydroxyzine for anxiety, and advised she has it ordered prn and may try it. 12/26 - Increase Abilify to 15 mg. daily 12/27 - Continue current meds 12/28/16 - she is showing some partial improvement as mood is a 3/10 today up from a 1 , and making good EC and is engaged with this provider and showing volition to rise out of the bed and sit in her chair to meet. Will monitor over 1-2 days as her abilify was increased to 15m on 12/26/16 and this may be sign she is getting some benefit. {Options include consider optimization of abilify to 20 or 30mg watching for further akathisia, or addition of loxitane to target ongoing depression and psychosis, EKG WNL from 12/20/16 QTc 399msec, NSR with 71bpm} 12/29/16 - move navane to lunchtime (from 1400) at patient's request to help with earlier control of afternoon AH - increase abilify to 20mg today, goal to optimize what she is taking prior to adding additional medications - consider loxitane if the above is not tolerated or ineffective 12/30 - aripiprazole increased to 20mg. 12/31 - 01/01 - Continue current meds - Patient does not want to consider ECT, but will consider TMS. Will explore with Dr. Espinal who is research contracts supervisor this weekend. 01/02 - start remeron 15mg po qhs for mood/anxiety augmentation. will need to watch weight. common risks and benefits reviewed with pt. she verbalized consent to trial. - consider further titration of abilify - unlikely a TMS candidate secondary to psychosis which is currently considered a contraindication 01/03 - DC Navane - Start Loxitane 25 mg. BID and 25 mg. BID prn for hallucinations. (2) Type 2 diabetes mellitus 12/18 - BSG's daily - Continue home dose of metformin - Encourage activity 12/19 - FBS WNL at 93 (3) Hypertension 12/18 - Continue home dose of Cozaar - Monitor BP (4) Hypothyroidism 12/18 - TSH WNL at 2.5 - Continue home dose of levthyroxine (5) Dyslipidemia 12/18 - Continue home dose of Lipitor - Last FLP done in Feb 2016. Will order 12/19 - FLP WNL (6) Class II obesity 12/18 - Encourage walking or exercise bike (7) UTI (urinary tract infection) 12/18 - UA positive for gram negative bacilli. She denies being symptomatic. Will await sensitivity 12/19 - Sensitivity back. Sensitive to bactrim and she says that she has been on this in the past without problems. Discharge / Aftercare Planning Primary Care Physician: Name: Dr Tam Appointment Notes: Patient states this is a new provider, will be seeing him 07/20 Psychiatrist: Name: Kassandra Hay Therapist: Name: Lamar Miller Date of Appointment: Jan 10, 2017 Time of Appointment: 10am Personal Driver: Name: Ramiro Beckailyn Visit Code E&M Code: 15650 Inventory Assets Strengths: Support of family, many outpatient mental health providers, spirituality Needs: To learn to be assertive Risk Factors Assessment : Yes /single/: Yes Higher / Fall in social status: No Health problems: Yes Mental Health Diagnoses: Yes Substance use disorders: No Previous attempt: Yes Family history of suicide: Yes Previous psychiatric stay: Yes Hopelessness: No Smoker: No Protective Factors Assessment Congregation beliefs: Yes : No Responsible for young children: No Employed: Yes Stable relationships: Yes Supportive family: Yes Good rapport with provider: Yes Data Vital Signs Last 24 Hrs: Date Time Temp Pulse Resp B/P (MAP) Pulse Ox O2 Delivery O2 Flow Rate FiO2 01/03/17 06:57 36.9 65 16 105/71 76 116/81 Meds Administered Last 24 Hrs: Meds Administered (Past 24Hrs) Medications (Trade) Dose Ordered Sig/Christofer Route Start Time Stop Time Status Last Admin Dose Admin Mirtazapine (Remeron Tab) 15 mg HS PO 01/02/17 22:00 02/01/17 21:59 01/02/17 22:27 15 MG Lab Results Last 24 Hrs: Last 24 Hours Test 01/03/17 08:08 Bedside Glucose 91 mg/dl Problem Qualifiers (1) Type 2 diabetes mellitus: Diabetes mellitus complication status: without complication Diabetes mellitus joint terminal attack controller insulin use: without joint terminal attack controller use Qualified Codes: E11.9 - Type 2 diabetes mellitus without complications (2) Hypertension: Hypertension type: unspecified Qualified Codes: I10 - Essential (primary) hypertension (3) Hypothyroidism: Hypothyroidism type: unspecified Qualified Codes: E03.9 - Hypothyroidism, unspecified
[2017-01-03] MEDS: THIOTHIXENE 5 MG CAP PO SCH ×2 (12:37→21:08)
[2017-01-03] MEDS: CLONAZEPAM 0.5 MG TAB PO PRN (12:38)
[2017-01-03] MEDS: MIRTAZAPINE TAB 15 MG TAB PO SCH (21:08)
[2017-01-03] MEDS: DESMOPRESSIN ACETATE 0.1 MG TAB PO SCH (21:08)
[2017-01-03] MEDS: ATORVASTATIN 10 MG TAB PO SCH (21:08)
[2017-01-03] MEDS: MONTELUKAST SOD 10 MG TAB PO SCH (21:09)
[2017-01-04 06:56] VITALS: BP_SYST 114; BP_SYST 119; BP_DIAS 73; BP_DIAS 79; PULSE 62; PULSE 67; TEMP 36.8
[2017-01-04] MEDS: ARIPIprazole TAB 10 MG TAB PO SCH (08:24)
[2017-01-04] MEDS: LEVOTHYROXINE 125 MCG TAB PO SCH (08:24)
[2017-01-04] MEDS: METFORMIN HCL 500 MG TAB PO SCH ×2 (08:24→17:28)
[2017-01-04] MEDS: ESCITALOPRAM OXALATE 20 MG TAB PO SCH (08:25)
[2017-01-04] MEDS: CLONAZEPAM 0.5 MG TAB PO SCH ×3 (08:25→21:18)
[2017-01-04] MEDS: LOSARTAN POTASSIUM 50 MG TAB PO SCH (08:25)
[2017-01-04] MEDS: ESTRADIOL 1 MG TAB PO SCH (08:25)
[2017-01-04] MEDS: LACTOBACILLUS ACIDOPHILUS (FLORANEX) TAB PO SCH (08:25)
[2017-01-04] MEDS: CHOLECALCIFEROL 1000 INTER.UNIT TAB PO SCH (08:26)
[2017-01-04] MEDS: MULTIVITAMIN TAB PO SCH (08:26)
[2017-01-04] MEDS ORDERED: ARIPIprazole TAB 10 MG TAB PO ONE (10:00)
--- NOTE | 2017-01-04 12:39 | Psychiatric Progress Notes ---
Progress Note Date of Service Jan 04, 2017. Interval History 46 yo woman with schizoaffective disorder who has been in deterioration since her mother in June 2016. Kassandra VALERIO who is familiar wtih this patient from her outpatient practice has conferred with Dr. Urbina with respect to medications, as the patient has been on many of her medications for years, at high doses, and they are not working. The patient at admission was willing to make some rather sweeping changes since she is in a safe environment, and since admission increased lamictal, tapering off latuda now on abilify, and tapered off zoloft titrated onto lexapro. Klonopin and navane were continued, but Ms Hay would like to taper both if we find success with the above changes. We will continue her medical meds, monitor BS's and encourage activity. We will coordinate with her other OP providers as well. At this time , the patient requires inpatient treatment due to the severity of her condition and the risk for self harm if discharged. Chief Complaint "I have a question...can we raise the abilify?". Subjective Patient was seen & assessed interval progress reviewed with nursing. Pt shared how noticing some improvement in her mood and hope. She is sleeping better and feeling more able to handle things. She shared how the additional resources being established for her makes her feel more comfortable for after discharge and she is wondering about discharge after the weekend. Her father will be visiting this week and she feels his support will assist her as well, she shared that she would follow the team's advice about discharge timing since father could always visit her here. She reports the AH has continued and continues to be derogatory and with comments to hurt herself. She is wondering about raising the Abilify dosage to help try to more full alleviate the AH. She is feeling less depressed and less anxious. She denied Suicidal ideation. She reports that her unilateral UE tremor is significantly reduced and not bothersome to her lately. She denied other EPS/motor concerns. She noticed sleeping better and did find it a little harder to get up in the morning past 2 morning buts once up denied feeling more tired. She shared how navane is the 2nd best med for her in terms of alleviation (clozaril was the best but the wt gain s/e makes her not want to ever return to that med). She wonders about pulling off navane sometimes in the future but not now. Given that and given supply limitation concerns of loxapine, we have decided to maintain Navane unchanged for now. Additionally pt appears to be improving some during this hospital course with changes to date and that remeron addition might be a helpful alleviating factor that has only newly been started. Appetite intact. sleep improved and intact. no VH , not paranoid, pt making effort to engage with peers during groups and meal time and shared how her negative sense of herself makes that hard for her but that she is doing more of it per her report. Review of Systems Constitutional: + fatigue ENT: No hearing loss, No unusual epistaxis, No nasal symptoms, No sore throat, No tinnitus, No dental problems, No trouble swallowing, No problem reported Respiratory: No cough, No sputum, No wheezing, No shortness of breath, No dyspnea on exertion, No dyspnea at rest, No hemoptysis, No problem reported Cardiovascular: No chest pain, No orthopnea, No PND, No edema, No claudication , No palpitations, No problem reported Abdomen: No pain, No nausea, No vomiting, No diarrhea, No constipation, No GI bleeding, No problem reported Neurologic: + problem reported (tremor UE unilaterla improving ) Psychiatric: + depression symptoms, + problem reported (AH ) Integumentary: No rash, No itch, No new/changing skin lesions, No color change , No bleeding, No problem reported Sleep Information Total Hours of Sleep: 9.00 Meal Information Percent of Breakfast Consumed: 100 Percent of Lunch Consumed: 75 Percent of Dinner Consumed: 100 Mental Status Exam During interview pt is: alert and oriented, cooperative Appearance: appropriately dressed, appropriately groomed Eye contact is: good, fair Motor behavior is: tremor (right>Left resting tremor with pill rolling manner, minimal fine tremor on hand extension) Speech: normal in rate, rhythm & volume Affect: depressed, anxious, constricted (less constricted more full amplutide and more full range ) Mood is: depressed (lessend some) Thought process: goal directed Thought content: reality based without delusions Suicidal thought are: present, Plan: present (to overdose on medications), Intent: denied (while in hospital, but cannot contract for safety outside the hospital) Homicidal thoughts are: denied Hallucinations: auditory (derogatory with telling to hurt herself as well ), denies visual Cognition: memory grossly intact, attention grossly intact, language grossly intact Intelligence estimated to be: average Insight: fair Judgement: impaired Impression Still depressed with command hallucinations but without SI today. Although she says she is doing better each day, objectively she does not look better. Eye contact is poor, there has been no change to the hallucinations and although she says she has no SI, she is focused on interventions that will limit her ability to OD. Loxitane has been considered due to higher efficacy with depression, and she has agreed to trial that this weekend. She is, however, on Abilify which will make availability of other antipsychotics, minimal. Will DC navane and add Loxitan 25 mg. BID and 25 mg. BID prn, adjusting dose as needed. If she continues to think she is better and without SI will likely DC on Friday to have time with her father who will be staying with her. ADD: Have been informed by pharmacy that Loxitane is no longer formulary, and calls to local pharmacies indicates that no one carries it because it is such an old agent. that being the case, will continue current navane. Plan (1) Schizoaffective disorder, depressive type 12/18 - Increase lamictal to 150 mg. daily - Reduce Latuda to 120 mg. with dinner, and start Abilify 2.5 mg. daily. R/B /A reviewed and accepted including risk for TD - Reduce Zoloft to 100 mg. daily and start Lexapro 10 mg. daily. R/B/A reviewed and accepted - Continue navane both scheduled and prn, as well as Klonopin - Q 15 min checks for safety - Encourage participation in group and individual counseling - Coordinate with her OP supports - Family meeting if indicated - Encourage other tactile coping strategies to avoid scratching behaviors 12/19 - Change navane to 10 mg. afternoon and 20 mg. HS. 12/20 -Reduce Latuda to 80 mg. daily and increase Abilify to 5 mg. daily - Continue to taper Zoloft to 50 mg. daily and increase Lexapro to 15 mg. daily - EKG - Repeat sodium 12/21 - Watch restlessness in converting to Abilify. We'll also need to watch psychosis as Abilify may attenuate the antipsychotic effect of the residual Latuda and navane - Reviewed sodium of 135 yesterday which was up trending 12/22 - will try to increase the abilify to 10mg tomorrow AM. will defer reduction of latuda tomorrow to judgement of primary team regarding how quickly they would like to taper. encourage use of klonopin prn's if needed. - bmp ordered for Friday AM for sodium 12/23 - Reduce Latuda to 40 mg. daily, continue Abilify 10 mg daily - Increase Lexapro to 20 mg. daily, continue Zoloft 50 mg. daily - Consider TMS if poorly responsive to meds. 12/24 - DC Latuda and increase Abilify to 12.5 mg. daily - DC Zoloft, continue Lexapro 20 mg. daily - Increase lamictal to 200 mg. daily 12/25 - Continue current meds, including clonazepam and thiothixene prn. Encourage her to use prns if needed, especially if feels unable to stop herself from self-harming. - Patient asking about trying hydroxyzine for anxiety, and advised she has it ordered prn and may try it. 12/26 - Increase Abilify to 15 mg. daily 12/27 - Continue current meds 12/28/16 - she is showing some partial improvement as mood is a 3/10 today up from a 1 , and making good EC and is engaged with this provider and showing volition to rise out of the bed and sit in her chair to meet. Will monitor over 1-2 days as her abilify was increased to 15m on 12/26/16 and this may be sign she is getting some benefit. {Options include consider optimization of abilify to 20 or 30mg watching for further akathisia, or addition of loxitane to target ongoing depression and psychosis, EKG WNL from 12/20/16 QTc 399msec, NSR with 71bpm} 12/29/16 - move navane to lunchtime (from 1400) at patient's request to help with earlier control of afternoon AH - increase abilify to 20mg today, goal to optimize what she is taking prior to adding additional medications - consider loxitane if the above is not tolerated or ineffective 12/30 - aripiprazole increased to 20mg. 12/31 - 01/01 - Continue current meds - Patient does not want to consider ECT, but will consider TMS. Will explore with Dr. Espinal who is specifications writer this weekend. 01/02 - start remeron 15mg po qhs for mood/anxiety augmentation. will need to watch weight. common risks and benefits reviewed with pt. she verbalized consent to trial. - consider further titration of abilify - unlikely a TMS candidate secondary to psychosis which is currently considered a contraindication 01/03 - DC Navane - Start Loxitane 25 mg. BID and 25 mg. BID prn for hallucinations. 01/04 Navane was maintained on 01/03 (loxitane not started - supply concerns with responses to current meds leading to Navene being maintained) continue navane and remeron 15mg hs ( will consider dose raise if possible s/e of am fatigue or increased hunger are occurring to impactful point) raise abilify to 30mg am with additional 10mg dose today occurring to have first 30mg of Abilify being occurring 01/04 (2) Type 2 diabetes mellitus 12/18 - BSG's daily - Continue home dose of metformin - Encourage activity 12/19 - FBS WNL at 93 (3) Hypertension 12/18 - Continue home dose of Cozaar - Monitor BP (4) Hypothyroidism 12/18 - TSH WNL at 2.5 - Continue home dose of levthyroxine (5) Dyslipidemia 12/18 - Continue home dose of Lipitor - Last FLP done in Feb 2016. Will order 12/19 - FLP WNL (6) Class II obesity 12/18 - Encourage walking or exercise bike (7) UTI (urinary tract infection) 12/18 - UA positive for gram negative bacilli. She denies being symptomatic. Will await sensitivity 12/19 - Sensitivity back. Sensitive to bactrim and she says that she has been on this in the past without problems. Discharge / Aftercare Planning Primary Care Physician: Name: Dr Tam Appointment Notes: Patient states this is a new provider, will be seeing him 07/20 Psychiatrist: Name: Kassandra Hay Therapist: Name: Lamar Miller Date of Appointment: Jan 10, 2017 Time of Appointment: 10am Chief Wellness Officer: Name: Ramiro Santo Other: Name of Appointment #1: Vera Santos Visit Code E&M Code: 90032 Inventory Assets Strengths: Support of family, many outpatient mental health providers, spirituality Needs: To learn to be assertive Risk Factors Assessment : Yes /single/: Yes Higher / Fall in social status: No Health problems: Yes Mental Health Diagnoses: Yes Substance use disorders: No Previous attempt: Yes Family history of suicide: Yes Previous psychiatric stay: Yes Hopelessness: No Smoker: No Protective Factors Assessment Yarsanism beliefs: Yes : No Responsible for young children: No Employed: Yes Stable relationships: Yes Supportive family: Yes Good rapport with provider: Yes Data Vital Signs Last 24 Hrs: Date Time Temp Pulse Resp B/P (MAP) Pulse Ox O2 Delivery O2 Flow Rate FiO2 01/04/17 06:56 36.8 62 16 114/73 67 119/79 Meds Administered Last 24 Hrs: Meds Administered (Past 24Hrs) Medications (Trade) Dose Ordered Sig/Christofer Route Start Time Stop Time Status Last Admin Dose Admin Mirtazapine (Remeron Tab) 15 mg HS PO 01/02/17 22:00 02/01/17 21:59 01/03/17 21:08 15 MG Aripiprazole (Abilify Tab) 10 mg ONE ONCE PO 01/04/17 10:00 01/04/17 10:05 DC 01/04/17 10:37 10 MG Lab Results Last 24 Hrs: Last 24 Hours Test 01/04/17 07:57 Bedside Glucose 91 mg/dl Problem Qualifiers (1) Type 2 diabetes mellitus: Diabetes mellitus complication status: without complication Diabetes mellitus jail insulin use: without bed bug exterminator use Qualified Codes: E11.9 - Type 2 diabetes mellitus without complications (2) Hypertension: Hypertension type: unspecified Qualified Codes: I10 - Essential (primary) hypertension (3) Hypothyroidism: Hypothyroidism type: unspecified Qualified Codes: E03.9 - Hypothyroidism, unspecified
[2017-01-04] MEDS: THIOTHIXENE 5 MG CAP PO SCH ×2 (12:42→21:18)
[2017-01-04] MEDS: MIRTAZAPINE TAB 15 MG TAB PO SCH (21:18)
[2017-01-04] MEDS: ATORVASTATIN 10 MG TAB PO SCH (21:18)
[2017-01-04] MEDS: DESMOPRESSIN ACETATE 0.1 MG TAB PO SCH (21:18)
[2017-01-04] MEDS: MONTELUKAST SOD 10 MG TAB PO SCH (21:19)
[2017-01-05 06:57] VITALS: BP_SYST 122; BP_SYST 127; BP_DIAS 77; BP_DIAS 83; PULSE 57; PULSE 67; TEMP 36.6
[2017-01-05] MEDS: METFORMIN HCL 500 MG TAB PO SCH ×2 (08:53→17:32)
[2017-01-05] MEDS: LEVOTHYROXINE 125 MCG TAB PO SCH (08:53)
[2017-01-05] MEDS: ESCITALOPRAM OXALATE 20 MG TAB PO SCH (08:54)
[2017-01-05] MEDS: ARIPIprazole TAB 10 MG TAB PO SCH (08:54)
[2017-01-05] MEDS: CHOLECALCIFEROL 1000 INTER.UNIT TAB PO SCH (08:54)
[2017-01-05] MEDS: ESTRADIOL 1 MG TAB PO SCH (08:54)
[2017-01-05] MEDS: LOSARTAN POTASSIUM 50 MG TAB PO SCH (08:54)
[2017-01-05] MEDS: LACTOBACILLUS ACIDOPHILUS (FLORANEX) TAB PO SCH (08:55)
[2017-01-05] MEDS: MULTIVITAMIN TAB PO SCH (08:55)
[2017-01-05] MEDS: CLONAZEPAM 0.5 MG TAB PO SCH ×3 (08:55→21:04)
[2017-01-05] MEDS: THIOTHIXENE 5 MG CAP PO SCH ×2 (12:25→21:04)
--- NOTE | 2017-01-05 12:42 | Psychiatric Progress Notes ---
Progress Note Date of Service Jan 05, 2017. Interval History 46 yo woman with schizoaffective disorder who has been in deterioration since her mother in June 2016. Kassandra VALERIO who is familiar wtih this patient from her outpatient practice has conferred with Dr. Urbina with respect to medications, as the patient has been on many of her medications for years, at high doses, and they are not working. The patient at admission was willing to make some rather sweeping changes since she is in a safe environment, and since admission increased lamictal, tapering off latuda now on abilify, and tapered off zoloft titrated onto lexapro. Klonopin and navane were continued, but Ms Hay would like to taper both if we find success with the above changes. We will continue her medical meds, monitor BS's and encourage activity. We will coordinate with her other OP providers as well. At this time , the patient requires inpatient treatment due to the severity of her condition and the risk for self harm if discharged. Chief Complaint "feeling better". Subjective Patient was seen & assessed interval progress reviewed with nursing. pt shared how 4 out of 10 for mood which is higher then has been. depression a bit further improved and some increased sense of hope from even a few days ago. Pt' s AH are ongoing but with less strong command and easier to handle for her, still derogatory. Pt engaging more and in dayroom more. Staff continues to notice a brighter affect and less blunted in affect then previously. She denied SI. She denied HI. She denied other psychotic symptoms. She continues to be preparing herself for an upcoming discharge. She is participating in groups. she endorsed grogginess when awakening that lasts for the about an hour or so. pt weary of potential wt gain on remeron and stated staff weighed her and 1lb increased from prior to admit wt. Her appetite is intact and not described as notably increased. She reports that her tremor concerns continue to lessen. these are likely s/e to her medications. She is aiming to continue with outpt providers. Sleep Information Total Hours of Sleep: 8.50 Meal Information Percent of Breakfast Consumed: 100 Percent of Lunch Consumed: 95 Percent of Dinner Consumed: 100 Mental Status Exam During interview pt is: alert and oriented, cooperative Appearance: appropriately dressed, appropriately groomed Eye contact is: good, fair Motor behavior is: tremor (right>Left resting tremor with pill rolling manner, minimal fine tremor on hand extension) Speech: normal in rate, rhythm & volume Affect: other (less constricted more full range and affect is mood congurent and less anxious and less depressed ) Mood is: other (4 out of 5 and better) Thought process: goal directed Thought content: reality based without delusions Suicidal thought are: present, Plan: present (to overdose on medications), Intent: denied (while in hospital, but cannot contract for safety outside the hospital) Homicidal thoughts are: denied Hallucinations: auditory (derogatory with less command aspect and milder ), denies visual Cognition: memory grossly intact, attention grossly intact, language grossly intact Intelligence estimated to be: average Insight: fair Judgement: impaired Impression Still depressed with command hallucinations but without SI today. Although she says she is doing better each day, objectively she does not look better. Eye contact is poor, there has been no change to the hallucinations and although she says she has no SI, she is focused on interventions that will limit her ability to OD. Loxitane has been considered due to higher efficacy with depression, and she has agreed to trial that this weekend. She is, however, on Abilify which will make availability of other antipsychotics, minimal. Will DC navane and add Loxitan 25 mg. BID and 25 mg. BID prn, adjusting dose as needed. If she continues to think she is better and without SI will likely DC on Friday to have time with her father who will be staying with her. ADD: Have been informed by pharmacy that Loxitane is no longer formulary, and calls to local pharmacies indicates that no one carries it because it is such an old agent. that being the case, will continue current navane. Plan (1) Schizoaffective disorder, depressive type 12/18 - Increase lamictal to 150 mg. daily - Reduce Latuda to 120 mg. with dinner, and start Abilify 2.5 mg. daily. R/B /A reviewed and accepted including risk for TD - Reduce Zoloft to 100 mg. daily and start Lexapro 10 mg. daily. R/B/A reviewed and accepted - Continue navane both scheduled and prn, as well as Klonopin - Q 15 min checks for safety - Encourage participation in group and individual counseling - Coordinate with her OP supports - Family meeting if indicated - Encourage other tactile coping strategies to avoid scratching behaviors 12/19 - Change navane to 10 mg. afternoon and 20 mg. HS. 12/20 -Reduce Latuda to 80 mg. daily and increase Abilify to 5 mg. daily - Continue to taper Zoloft to 50 mg. daily and increase Lexapro to 15 mg. daily - EKG - Repeat sodium 12/21 - Watch restlessness in converting to Abilify. We'll also need to watch psychosis as Abilify may attenuate the antipsychotic effect of the residual Latuda and navane - Reviewed sodium of 135 yesterday which was up trending 12/22 - will try to increase the abilify to 10mg tomorrow AM. will defer reduction of latuda tomorrow to judgement of primary team regarding how quickly they would like to taper. encourage use of klonopin prn's if needed. - bmp ordered for Friday AM for sodium 12/23 - Reduce Latuda to 40 mg. daily, continue Abilify 10 mg daily - Increase Lexapro to 20 mg. daily, continue Zoloft 50 mg. daily - Consider TMS if poorly responsive to meds. 12/24 - DC Latuda and increase Abilify to 12.5 mg. daily - DC Zoloft, continue Lexapro 20 mg. daily - Increase lamictal to 200 mg. daily 12/25 - Continue current meds, including clonazepam and thiothixene prn. Encourage her to use prns if needed, especially if feels unable to stop herself from self-harming. - Patient asking about trying hydroxyzine for anxiety, and advised she has it ordered prn and may try it. 12/26 - Increase Abilify to 15 mg. daily 12/27 - Continue current meds 12/28/16 - she is showing some partial improvement as mood is a 3/10 today up from a 1 , and making good EC and is engaged with this provider and showing volition to rise out of the bed and sit in her chair to meet. Will monitor over 1-2 days as her abilify was increased to 15m on 12/26/16 and this may be sign she is getting some benefit. {Options include consider optimization of abilify to 20 or 30mg watching for further akathisia, or addition of loxitane to target ongoing depression and psychosis, EKG WNL from 12/20/16 QTc 399msec, NSR with 71bpm} 12/29/16 - move navane to lunchtime (from 1400) at patient's request to help with earlier control of afternoon AH - increase abilify to 20mg today, goal to optimize what she is taking prior to adding additional medications - consider loxitane if the above is not tolerated or ineffective 12/30 - aripiprazole increased to 20mg. 12/31 - 01/01 - Continue current meds - Patient does not want to consider ECT, but will consider TMS. Will explore with Dr. Espinal who is zone maintenance technician this weekend. 01/02 - start remeron 15mg po qhs for mood/anxiety augmentation. will need to watch weight. common risks and benefits reviewed with pt. she verbalized consent to trial. - consider further titration of abilify - unlikely a TMS candidate secondary to psychosis which is currently considered a contraindication 01/03 - DC Navane - Start Loxitane 25 mg. BID and 25 mg. BID prn for hallucinations. 01/04 Navane was maintained on 01/03 (loxitane not started - supply concerns with responses to current meds leading to Navene being maintained) continue navane and remeron 15mg hs ( will consider dose raise if possible s/e of am fatigue or increased hunger are occurring to impactful point) raise abilify to 30mg am with additional 10mg dose today occurring to have first 30mg of Abilify being occurring 01/04 01/05 raise remeron to 30mg given potential of les Am sedation from this med at the higher dose (and possibly less impact on satiety as well, in addition likely to be more alleviating in her mood and anxiety symptoms which have been rather treatment resistant (2) Type 2 diabetes mellitus 12/18 - BSG's daily - Continue home dose of metformin - Encourage activity 12/19 - FBS WNL at 93 (3) Hypertension 12/18 - Continue home dose of Cozaar - Monitor BP (4) Hypothyroidism 12/18 - TSH WNL at 2.5 - Continue home dose of levthyroxine (5) Dyslipidemia 12/18 - Continue home dose of Lipitor - Last FLP done in Feb 2016. Will order 12/19 - FLP WNL (6) Class II obesity 12/18 - Encourage walking or exercise bike (7) UTI (urinary tract infection) 12/18 - UA positive for gram negative bacilli. She denies being symptomatic. Will await sensitivity 12/19 - Sensitivity back. Sensitive to bactrim and she says that she has been on this in the past without problems. Discharge / Aftercare Planning Primary Care Physician: Name: Dr Tam Appointment Notes: Patient states this is a new provider, will be seeing him 07/20 Psychiatrist: Name: Kassandra Hay Therapist: Name: Lamar Miller Date of Appointment: Jan 10, 2017 Time of Appointment: 10am Associate Justice: Name: Ramiro Beckailyn Other: Name of Appointment #1: Vera Santos Visit Code E&M Code: 88071 Inventory Assets Strengths: Support of family, many outpatient mental health providers, spirituality Needs: To learn to be assertive Risk Factors Assessment : Yes /single/: Yes Higher / Fall in social status: No Health problems: Yes Mental Health Diagnoses: Yes Substance use disorders: No Previous attempt: Yes Family history of suicide: Yes Previous psychiatric stay: Yes Hopelessness: No Smoker: No Protective Factors Assessment Christian beliefs: Yes : No Responsible for young children: No Employed: Yes Stable relationships: Yes Supportive family: Yes Good rapport with provider: Yes Data Vital Signs Last 24 Hrs: Date Time Temp Pulse Resp B/P (MAP) Pulse Ox O2 Delivery O2 Flow Rate FiO2 01/05/17 06:57 36.6 57 16 122/77 67 127/83 Meds Administered Last 24 Hrs: Meds Administered (Past 24Hrs) Medications (Trade) Dose Ordered Sig/Christofer Route Start Time Stop Time Status Last Admin Dose Admin Aripiprazole (Abilify Tab) 30 mg QAM PO 01/05/17 09:00 01/26/17 08:59 01/05/17 08:54 30 MG Aripiprazole (Abilify Tab) 10 mg ONE ONCE PO 01/04/17 10:00 01/04/17 10:05 DC 01/04/17 10:37 10 MG Lab Results Last 24 Hrs: Last 24 Hours Test 01/05/17 08:30 Bedside Glucose 83 mg/dl Problem Qualifiers (1) Type 2 diabetes mellitus: Diabetes mellitus complication status: without complication Diabetes mellitus wool sacker insulin use: without penitentiary use Qualified Codes: E11.9 - Type 2 diabetes mellitus without complications (2) Hypertension: Hypertension type: unspecified Qualified Codes: I10 - Essential (primary) hypertension (3) Hypothyroidism: Hypothyroidism type: unspecified Qualified Codes: E03.9 - Hypothyroidism, unspecified
[2017-01-05] MEDS: CLONAZEPAM 0.5 MG TAB PO PRN (15:33)
[2017-01-05] MEDS: ATORVASTATIN 10 MG TAB PO SCH (21:04)
[2017-01-05] MEDS: DESMOPRESSIN ACETATE 0.1 MG TAB PO SCH (21:04)
[2017-01-05] MEDS: MONTELUKAST SOD 10 MG TAB PO SCH (21:04)
[2017-01-05] MEDS ORDERED: MIRTAZAPINE TAB 15 MG TAB PO SCH (22:00)
[2017-01-06 07:01] VITALS: BP_SYST 123; BP_SYST 134; BP_DIAS 80; BP_DIAS 84; PULSE 65; PULSE 69; TEMP 36.8
[2017-01-06] MEDS: LOSARTAN POTASSIUM 50 MG TAB PO SCH (08:30)
[2017-01-06] MEDS: ESTRADIOL 1 MG TAB PO SCH (08:30)
[2017-01-06] MEDS: METFORMIN HCL 500 MG TAB PO SCH (08:30)
[2017-01-06] MEDS: LACTOBACILLUS ACIDOPHILUS (FLORANEX) TAB PO SCH (08:30)
[2017-01-06] MEDS: LEVOTHYROXINE 125 MCG TAB PO SCH (08:30)
[2017-01-06] MEDS: CLONAZEPAM 0.5 MG TAB PO SCH (08:30)
[2017-01-06] MEDS: ARIPIprazole TAB 10 MG TAB PO SCH (08:30)
[2017-01-06] MEDS: CHOLECALCIFEROL 1000 INTER.UNIT TAB PO SCH (08:31)
[2017-01-06] MEDS: MULTIVITAMIN TAB PO SCH (08:31)
[2017-01-06] MEDS: ESCITALOPRAM OXALATE 20 MG TAB PO SCH (08:31)
[2017-01-06] MEDS ORDERED: ABL10 PO (10:30)
[2017-01-06] MEDS ORDERED: LXP20 PO (10:30)
[2017-01-06] MEDS ORDERED: RMR15 PO (10:30)
[2017-01-06] MEDS ORDERED: LAMO100T16 PO (10:30)
--- NOTE | 2017-01-06 10:48 | Discharge Instructions ---
Discharge Information Report Includes Report will include the: Discharge Instructions & Summary Admission Admission Date / Time: Dec 17, 2016 at 17:45 Reason for Admission: Schizoaffective D/O, Bipolar Type W/ Suicidality Discharge Discharge Diagnosis / Problem: Schizoaffective disorder, bipolar type Condition at Discharge: Fair Discharge Goals Goal(s): Improve function, Improve disease control, Learn about illness, Therapeutic intervention Activity Recommendations Activity Limitations: per Instructions/Follow-up section . Instructions / Follow-Up Instructions / Follow-Up . SPECIAL CARE INSTRUCTIONS: 1. Follow through with your scheduled aftercare appointments. If unable to keep an appointment, please call to reschedule. 2. Take your medication only as prescribed. Medication should not be changed or stopped without the approval of your doctor. In the event of worsening symptoms or concerns about side effects, contact your doctor immediately. 3. Utilize new healthy coping skills, anger management skills, and stress management skills learned during your hospitalization. Journal feelings and process them with a support person. Identify stressors or situations that may result in relapse, deterioration or inappropriate behaviors and develop a plan to deal with those issues. 4. If your coping skills are ineffective and you are in crisis, contact your outpatient providers for direction. If unable to reach your providers, please call the CAN HELP LINE AT or go to the closest Emergency Room. 5. Avoid alcohol and un-prescribed drugs. 6. You have been provided with the Mental Health Advance Directives Pamphlet for your review. AFTERCARE APPOINTMENTS: * Please call your insurance company prior to your scheduled appointment to confirm your aftercare providers are covered. Take your insurance information to your appointments. . Discharge / Aftercare Planning Primary Care Physician: Name: Dr Tam Appointment Notes: Patient states this is a new provider, will be seeing him 07/20 Psychiatrist: Name: Kassandra Hay Therapist: Name Of Therapist: Lamar Miller Date of Appointment: Jan 10, 2017 Time of Appointment: 10am Carriage Operator: Name: Ramiro Santo Other: Name of Appointment #1: Vera Santos . Follow-Up Care Plan for Follow-Up Care: See above. Current Hospital Diet Patient's current hospital diet: Regular Diet Discharge Diet Recommended Diet: Regular Diet Procedures Procedures Performed: No Pending Studies Pending Studies at Discharge: No Medical Emergencies . Who to Call and When: Medical Emergencies: For questions or emergencies related to your hospital stay, please contact the Inpatient Behavioral Health Unit at [phone]. A oracle bpm developer is on-call 23/12 for the Behavioral Health Unit for emergencies At any time you feel your situation is an emergency, you may also call 911 immediately. . Non-Emergent Contact Non-Emergency issues call your: Primary Care Provider, Psychiatrist, Therapist , Carriage Operator Past History Medical & Surgical History: (1) Asthma (2) Hypertension (3) Class II obesity (4) Diabetes mellitus type 2 (5) Type 2 diabetes mellitus (6) Hypothyroidism (7) Dyslipidemia Advance Directives Existing Advance Directive: No Do You Have an Existing Mental: No Existing Living Will: No Existing Power of Fruit Grower: No Advance Directives Info Given: To Pt/S.O. Advance Directives Reason: Declines as Mental Health Visit. Discharge Summary Admission HPI Per the Admitting provider: Leisa is a 46 yo woman with schizoaffective disorder who is treated by the undersigned as an OP. She has had a difficult course since her mother suddenly in June of this year. She was inpatient on our unit in September with similar symptoms. Prior to that time, the patient had had a period of relative stability on Latuda, Zoloft, Klonopin and navane after having been tapered off of Clozaril several years prior. 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 She is close with her family, with whom she has frequent contact although they all live in other states. She chronically suffers from auditory hallucinations of her grandfather's voice telling her to hurt herself, and has been responding to these by scratching her forearms with her fingernails. These are usually worst at night, and are disturbing her sleep. Her mood has been depressed and anxious and in the last few weeks has been having increasing trouble with suicidal thoughts to OD. I have seen her every 2 weeks or so in the OP office, but she has been reluctant to adjust her meds too dramatically fearing that it will destabilize her. She has been using more prn navane and klonopin without relief. I have had 2 urgent phone calls from her in the last week, saying that she has been feeling suicidal, but did not want to come to the hospital because she would miss an eye appointment, scheduled for this , but after yesterday's call when she reported feeling acutely suicidal all day, I recommended that she come to the ED for inpatient evaluation. Today she continues to be severely depressed, with SI with plan to OD. She reports that her appetite has been good, and no recent weight loss. Sleep is disturbed. Anxiety is high, generalized and without panic. She denies visual hallucination. Her SIB is limited to scratching her forearm. Other than her mother's , other stressors include a friend who comes to her apartment and drinks a lot of Leisa's soda and coffee making Leisa feel taken advantage of. She is also stressed by [employer] moving to a new building in the near future, as she doesn't like change. Admission Exam Per the Admitting provider: Please see admission H&P. Consultations None. Hospital Course (1) Schizoaffective disorder, depressive type 12/18 - Increase lamictal to 150 mg. daily - Reduce Latuda to 120 mg. with dinner, and start Abilify 2.5 mg. daily. R/B /A reviewed and accepted including risk for TD - Reduce Zoloft to 100 mg. daily and start Lexapro 10 mg. daily. R/B/A reviewed and accepted - Continue navane both scheduled and prn, as well as Klonopin - Q 15 min checks for safety - Encourage participation in group and individual counseling - Coordinate with her OP supports - Family meeting if indicated - Encourage other tactile coping strategies to avoid scratching behaviors 12/19 - Change navane to 10 mg. afternoon and 20 mg. HS. 12/20 -Reduce Latuda to 80 mg. daily and increase Abilify to 5 mg. daily - Continue to taper Zoloft to 50 mg. daily and increase Lexapro to 15 mg. daily - EKG - Repeat sodium 12/21 - Watch restlessness in converting to Abilify. We'll also need to watch psychosis as Abilify may attenuate the antipsychotic effect of the residual Latuda and navane - Reviewed sodium of 135 yesterday which was up trending 12/22 - will try to increase the abilify to 10mg tomorrow AM. will defer reduction of latuda tomorrow to judgement of primary team regarding how quickly they would like to taper. encourage use of klonopin prn's if needed. - bmp ordered for Friday AM for sodium 12/23 - Reduce Latuda to 40 mg. daily, continue Abilify 10 mg daily - Increase Lexapro to 20 mg. daily, continue Zoloft 50 mg. daily - Consider TMS if poorly responsive to meds. 12/24 - DC Latuda and increase Abilify to 12.5 mg. daily - DC Zoloft, continue Lexapro 20 mg. daily - Increase lamictal to 200 mg. daily 12/25 - Continue current meds, including clonazepam and thiothixene prn. Encourage her to use prns if needed, especially if feels unable to stop herself from self-harming. - Patient asking about trying hydroxyzine for anxiety, and advised she has it ordered prn and may try it. 12/26 - Increase Abilify to 15 mg. daily 12/27 - Continue current meds 12/28/16 - she is showing some partial improvement as mood is a 3/10 today up from a 1 , and making good EC and is engaged with this provider and showing volition to rise out of the bed and sit in her chair to meet. Will monitor over 1-2 days as her abilify was increased to 15m on 12/26/16 and this may be sign she is getting some benefit. {Options include consider optimization of abilify to 20 or 30mg watching for further akathisia, or addition of Loxitane to target ongoing depression and psychosis, EKG WNL from 12/20/16 QTc 399msec, NSR with 71bpm} 12/29/16 - move navane to lunchtime (from 1400) at patient's request to help with earlier control of afternoon AH - increase abilify to 20mg today, goal to optimize what she is taking prior to adding additional medications - consider Loxitane if the above is not tolerated or ineffective 12/30 - aripiprazole increased to 20mg. 12/31 - 01/01 - Continue current meds - Patient does not want to consider ECT, but will consider TMS. Will explore with Dr. Espinal who is crutching contractor this weekend. 01/02 - start remeron 15mg po qhs for mood/anxiety augmentation. will need to watch weight. common risks and benefits reviewed with pt. she verbalized consent to trial. - consider further titration of abilify - unlikely a TMS candidate secondary to psychosis which is currently considered a contraindication 01/03 - DC Navane - Start Loxitane 25 mg. BID and 25 mg. BID prn for hallucinations. 01/04 Navane was maintained on 01/03 (Loxitane not started - supply concerns with responses to current meds leading to Navane being maintained) continue navane and remeron 15mg hs ( will consider dose raise if possible s/e of am fatigue or increased hunger are occurring to impactful point) raise abilify to 30mg am with additional 10mg dose today occurring to have first 30mg of Abilify being occurring 01/04 01/05 raise remeron to 30mg given potential of less Am sedation from this med at the higher dose (and possibly less impact on satiety as well, in addition likely to be more alleviating in her mood and anxiety symptoms which have been rather treatment resistant (2) Type 2 diabetes mellitus 12/18 - BSG's daily - Continue home dose of metformin - Encourage activity 12/19 - FBS WNL at 93 (3) Hypertension 12/18 - Continue home dose of Cozaar - Monitor BP (4) Hypothyroidism 12/18 - TSH WNL at 2.5 - Continue home dose of levthyroxine (5) Dyslipidemia 12/18 - Continue home dose of Lipitor - Last FLP done in Feb 2016. Will order 12/19 - FLP WNL (6) Class II obesity 12/18 - Encourage walking or exercise bike (7) UTI (urinary tract infection) 12/18 - UA positive for gram negative bacilli. She denies being symptomatic. Will await sensitivity 12/19 - Sensitivity back. Sensitive to bactrim and she says that she has been on this in the past without problems. Risk Factors Assessment : Yes /single/: Yes Higher / Fall in social status: No Health problems: Yes Mental Health Diagnoses: Yes Substance use disorders: No Previous attempt: Yes Family history of suicide: Yes Previous psychiatric stay: Yes Hopelessness: No Smoker: No Protective Factors Assessment Muslim beliefs: Yes : No Responsible for young children: No Employed: Yes Stable relationships: Yes Supportive family: Yes Good rapport with provider: Yes Absence of risk factors above: Yes (risk factors were mitigated by admission to the inpatient unit, adjusting medications to target mood and psychotic symptoms, involving the patient in groups and therapy on the unit, working on healthy coping skills and her discharge safety plan, coordinating care with her multiple outpatient providers and referring her for a higher level of care ( referred to [email or web address]), involving her father who came [facility] to provide support, addressing her medical problems, and exploring other treatment options such as ECT and TMS. Mood and psychotic symptoms have improved, she is denying suicidal thoughts and urges to harm herself, and is requesting discharge. As she is no longer at acute risk of harm to herself, she can be managed as an outpatient at this time. She does not of significant risk factors for harm to others.) Day of Discharge Assessment Hospital course: Multiple medication changes were made, including increasing lamotrigine, switching from lurasidone to aripiprazole, and switching from sertraline to escitalopram. Home doses of Navane and clonazepam were continued. She was later started on mirtazapine as well. The patient was actively engaged in treatment, attending and participating in groups, and was willing to increase her outpatient supports, as [email or web address] management was added. Fasting labs were checked and were normal. She completed a course of Bactrim for a UTI which was asymptomatic. She had a family meeting with her father on 12/31/2016. He came [facility] for [facility] weeks and planned to stay with her after discharge, and she felt was helpful to know that he would be there when she was released from the hospital. They discussed the options for ECT or TMS, and her preference to pursue TMS if needed. She reported good support from her father, whom she speaks to on a regular basis. Her symptoms were initially fairly consistent and appeared resistant to the medication adjustments, but towards the end of her stay, she began to demonstrate improvement in mood and psychosis , with lessening thoughts of harming herself. She ultimately requested discharge, feeling that she could keep herself safe outside the hospital. Day of discharge assessment: The patient states that her mood is significantly improved from admission, stating that she is excited to be going home and spending the next week with her father, who is in town visiting. She continues to have here voices, but says they are improved from admission and are "not as demanding, not as loud." She denies thoughts of suicide or self-harm, stating that she feels able to use her coping skills and safety plan, and feels safe to leave the hospital. She reports that her racing thoughts and restlessness are improved. She is able to review her safety plan in detail, as well as her plans for outpatient follow- up. She feels that her hospitalization has been helpful, stating that the medication adjustments and groups have been beneficial. Well nourished, well developed WF appearing stated age. Casually dressed and adequately groomed. Calm and cooperative. Seated in NAD, with fair eye contact and no abnormal movements. Speech is normal rate, volume, and tone. Mood is "good, better," and affect is stable, mildly anxious, and congruent. Thoughts are linear, logical and goal directed. The patient denied suicidal and homicidal ideation and was able to safety plan. No paranoia or delusions, auditory hallucinations are present but are decreased from admission, and did not appear to be responding to internal stimuli. Cognition was grossly intact. Alert and oriented to person, place and time. Intelligence is consistent with level of education. Insight and and judgment are good. Laboratory Test 12/17/16 00:00 12/17/16 16:27 12/19/16 07:05 12/20/16 10:55 Urine Color YELLOW Urine Appearance CLEAR Urine pH 6.5 Urine Specific [place] 1.006 Urine Protein NEG Urine Glucose (UA) NEG Urine Ketones NEG Urine Occult Blood NEG Urine Nitrite NEG Urine Bilirubin NEG Urine Urobilinogen NEG Urine Leukocyte Esterase MODERATE Urine WBC (Auto) 5-10 Urine RBC (Auto) 0-4 Urine Hyaline Casts (Auto) 0 Urine Epithelial Cells (Auto) 10-20 Urine Bacteria (Auto) 1+ Urine Opiates Screen NEG Urine Methadone, Qualitative NEG Urine Barbiturates NEG Urine Phencyclidine (PCP) Level NEG Ur Amphetamine/Methamphetamine NEG MDMA (Ecstasy) Screen NEG Urine Benzodiazepines Screen NEG Urine Cocaine Metabolite NEG Urine Marijuana (THC) NEG White Blood Count 9.51 Red Blood Count 4.57 Hemoglobin 12.4 Hematocrit 36.6 Mean Corpuscular Volume 80.1 Mean Corpuscular Hemoglobin 27.1 Mean Corpuscular Hemoglobin Concent 33.9 Platelet Count 219 Mean Platelet Volume 8.2 Neutrophils (%) (Auto) 55.9 Lymphocytes (%) (Auto) 36.1 Monocytes (%) (Auto) 7.8 Eosinophils (%) (Auto) 0.0 Basophils (%) (Auto) 0.0 Neutrophils # (Auto) 5.32 Lymphocytes # (Auto) 3.43 Monocytes # (Auto) 0.74 Eosinophils # (Auto) 0.00 Basophils # (Auto) 0.00 RDW Standard Deviation 38.7 RDW Coefficient of Variation 13.4 Immature Granulocyte % (Auto) 0.2 Immature Granulocyte # (Auto) 0.02 Potassium Level 3.9 Chloride Level 100 Carbon Dioxide Level 27 Anion Gap 6.0 Blood Urea Nitrogen 13 Creatinine 0.54 Estimated GFR () 129.3 Estimated GFR (Non- 111.6 BUN/Creatinine Ratio 23.7 Random Glucose 86 Calcium Level 8.9 Total Bilirubin 0.3 Direct Bilirubin 0.1 Aspartate Amino Transferase (AST) 10 Alanine Aminotransferase (ALT) 17 Alkaline Phosphatase 50 Total Protein 6.8 Albumin 4.0 Thyroid Stimulating Hormone (TSH) 2.500 Ethyl Alcohol mg/dL < 3.0 Fasting Glucose 89 Triglycerides Level 61 Cholesterol Level 171 HDL Cholesterol 57 LDL Cholesterol, Calculated 102 VLDL Cholesterol, Calculated 12 Cholesterol/HDL Ratio 3.0 Sodium Level 135 Test 12/23/16 06:17 01/05/17 08:30 01/06/17 07:38 Sodium Level 139 Potassium Level 4.4 Chloride Level 103 Carbon Dioxide Level 27 Anion Gap 9.0 Blood Urea Nitrogen 16 Creatinine 0.63 Est Creatinine Clear Calc Drug Dose 129.9 Estimated GFR () 122.9 Estimated GFR (Non- 106.1 BUN/Creatinine Ratio 25.2 Random Glucose 87 Calcium Level 9.0 POC Glucose 83 90 Total Time Total Time Spent (min): Greater than 30 minutes Total Time Included: examination of the patient, discharge planning, medication reconciliation Tobacco Cessation at Discharge Smoking Status: Former Smoker FDA approved Prescription: non-smoker Antipsychotic Meds Rationale The patient has failed at least 3 trials of monotherapy. 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
[2017-01-06] MEDS: THIOTHIXENE 5 MG CAP PO SCH (11:55)
[2017-01-06] MEDS ORDERED: CLONAZEPAM 0.5 MG TAB PO ONE (12:00)
== END 2017-01-06 12:00 | disposition home or self-care (01) | DRG 885 ==
LOC: C.EDB 15:45 → C.MHU 17:45
PROVIDERS: ADMIT Psychiatry & Neurology Psychiatry; ATTEND Psychiatry & Neurology Psychiatry
DX: F20.9 Schizophrenia, unspecified (principal); R45.851 Suicidal ideations; N39.0 Urinary tract infection, site not specified; B96.89 Other specified bacterial agents as the cause of diseases classified elsewhere; J45.909 Unspecified asthma, uncomplicated; I10 Essential (primary) hypertension; E66.9 Obesity, unspecified; E11.9 Type 2 diabetes mellitus without complications; E78.5 Hyperlipidemia, unspecified; E03.9 Hypothyroidism, unspecified; Z87.891 Personal history of nicotine dependence; Z81.8 Family history of other mental and behavioral disorders; Z81.1 Family history of alcohol abuse and dependence; Z68.33 Body mass index [BMI] 33.0-33.9, adult; Z79.899 Other long term (current) drug therapy; Z79.84 Long term (current) use of oral hypoglycemic drugs; Z79.890 Hormone replacement therapy

== ENCOUNTER → 2017-01-15 | Outpatient (CLI) | payer OTHER ==
[~2017-01-15] MED LIST changes: +ABL10 PO; +ARIP30TA3 PO; +ESCI1TAB10 PO; +LAMO100T16 PO; +LAMO200T38 PO; -LMC25 PO; -LURA80TA PO; +LXP20 PO; +MIRT30TA2 PO; +RMR15 PO; -SERT100T PO; +SULF-183 PO
[2017-01-15 15:21] LABS: ALT/SGPT 23 U/L (12-78); AST/SGOT 11 U/L (15-37); BLOOD UREA NITROGEN 15 mg/dl (7-18); BUN/CREATININE RATIO 28.1 (10-20); CALCIUM 8.8 mg/dl (8.5-10.1); CARBON DIOXIDE 27 mmol/L (21-32); CHLORIDE 103 mmol/L (98-107); CREATININE 0.52 mg/dl (0.60-1.20); GLUCOSE 115 mg/dl (70-99); SODIUM 136 mmol/L (136-145)
[2017-01-15 15:27] LABS: ALB/GLOB RATIO 1.3 (0.9-2); ALKALINE PHOSPHATASE 63 U/L (45-117); CHOLESTEROL 162 mg/dl (0-200); CHOLESTEROL/HDL RATIO 2.5; HDL CHOLESTEROL 66 mg/dl; LDL CHOLESTEROL CALCULATED 83 mg/dl; TRIGLYCERIDES 64 mg/dl (0-150); VERY LOW DENSITY LIPOPROT CALC 13 mg/dl
[2017-01-15 15:46] LABS: RATIO 40.9 mcg/mg (0-30.0)
[2017-01-16 07:22] LABS: ESTIMATED AVERAGE GLUCOSE 100 mg/dl; HA1C FLAG Normal (Normal)
== END | disposition home or self-care (01) ==
LOC: C.LAB1850 13:33
PROVIDERS: ATTEND Physician Assistant
DX: E11.9 Type 2 diabetes mellitus without complications (principal); E78.5 Hyperlipidemia, unspecified

== ENCOUNTER 2017-01-29 19:13 | Inpatient (IN) | payer OTHER ==
[~2017-01-29] VITALS: Ht 165.1 cm; Wt 110.3 kg
[~2017-01-29 19:13] MED LIST changes: -ARIP30TA3 PO; -ESCI1TAB10 PO; -LAMO200T38 PO; -MIRT30TA2 PO; -SULF-183 PO
[2017-01-29 20:30] LABS: URINE APPEARANCE CLEAR (CLEAR); URINE BILIRUBIN NEG (NEG); URINE COLOR YELLOW; URINE EPITHELIAL CELL AUTO 20-30 /lpf (0-5); URINE NITRITE NEG (NEG); URINE SPECIFIC GRAVITY 1.015 (1.000-1.030); UROBILINOGEN NEG (NEG); ZZUR CULT IF INDIC CLEAN CATCH YES
[2017-01-29 20:31] LABS: MANUAL MICROSCOPIC REQUIRED? NO; REVIEW REQ? NO
[2017-01-29 20:48] LABS: BENZODIAZEPINE, URINE NEG (NEG); COCAINE,URINE NEG (NEG); PHENCYCLIDINE, URINE NEG (NEG)
[2017-01-29 21:15] VITALS: O2SAT 94
[2017-01-29 21:40] LABS: BASO % 0.1 %; BASO ABS # 0.01 K/uL (0-0.2); COMPLETE YES; HEMATOCRIT 35.4 % (37-47); IG% 0.2 %; LYMPH % 34.1 %; LYMPH ABS # 3.15 K/uL (1.2-3.4); MEAN CELL VOLUME 81.6 fL (80-100); MEAN CORPUSCULAR HEMOGLOBIN 27.4 pg (25-34); MEAN CORPUSCULAR HGB CONC 33.6 g/dl (32-36); MEAN PLATELET VOLUME 8.8 fL (7.4-10.4); MONO % 6.4 %; NEUT % 59.2 %; PLATELET COUNT 230 K/uL (130-400); RED BLOOD COUNT 4.34 M/uL (4.2-5.4); WHITE BLOOD COUNT 9.23 K/uL (4.8-10.8)
[2017-01-29 21:57] LABS: BUN/CREATININE RATIO 25.7 (10-20); CALCIUM 8.8 mg/dl (8.5-10.1); CREATININE 0.53 mg/dl (0.60-1.20); POTASSIUM 4.1 mmol/L (3.5-5.1)
[2017-01-29 22:08] LABS: ALB/GLOB RATIO 1.1 (0.9-2); THYROID STIMULATING HORMONE 1.52 uIu/ml (0.300-4.500)
[2017-01-29] MEDS ORDERED: THIO5CAP2 PO ×2 (22:10)
[2017-01-29] MEDS ORDERED: LAMO200T38 PO (22:10)
[2017-01-29] MEDS ORDERED: ESCI1TAB10 PO (22:10)
[2017-01-29] MEDS ORDERED: ARIP30TA3 PO (22:10)
[2017-01-29] MEDS ORDERED: MIRT30TA2 PO (22:10)
[2017-01-29 22:12] LABS: ACETAMINOPHEN < 2 ug/ml (10-30)
[2017-01-29] MEDS ORDERED: THIOTHIXENE 5 MG CAP PO PRN (22:30)
[2017-01-29] MEDS ORDERED: ALUMINUM/MAGNESIUM SUSP 30 ML UDC PO PRN (22:30)
[2017-01-29] MEDS ORDERED: CLONAZEPAM 0.5 MG TAB PO PRN (22:30)
[2017-01-29] MEDS ORDERED: MAGNESIUM HYDROXIDE SUSP 30 ML UDC PO PRN (22:30)
[2017-01-29] MEDS ORDERED: BISMUTH SUBSALICYLATE PER ML OMNICELL CHARGE PO PRN (22:30)
[2017-01-29] MEDS ORDERED: SODIUM CHLORIDE 0.65% NA SOLN 45 ML (OCEAN) PRN (22:30)
[2017-01-29] MEDS ORDERED: ACETAMINOPHEN 325 MG TAB PO PRN (22:30)
[2017-01-29] MEDS ORDERED: ATORVASTATIN 10 MG TAB PO SCH (23:00)
[2017-01-29] MEDS ORDERED: CLONAZEPAM 0.5 MG TAB PO SCH (23:00)
[2017-01-29 23:19] VITALS: BP 118/73; PULSE 80; TEMP 36.9; BMI 40.5
--- NOTE | 2017-01-29 23:22 | EMERGENCY ROOM VISIT NOTE ---
History Report prepared by Caty: Reynaldo Swan Under the Supervision of: Dr. Shon Schaefer D.O. First contact with patient: 19:31 Chief Complaint: MENTAL HEALTH EVALUATION Stated Complaint: DEPRESSED, HEARING VOICES, SUICIDAL History of Present Illness The patient is a 46 year old female who presents to the Emergency Room for a mental health evaluation. The patient has a past medical history of depression. Recently, she has been increasingly depressed. Her mother at the beginning of this year. She notes that she is also hearing her mother's voice, talking to her about heaven. She also hears her grandfather's voice telling her to hurt herself, that she is no good, and that she is helpless. He did not say this to her as a kid, and she does not know why he is saying these things to her now. She states that she is suicidal with a plan to overdose on sleeping pills. She wants to do this to end her feeling of depression. She called her psychiatrist twice today, who recommended her to come to the ER to be evaluated. She denies any alcohol use or drug use. She has been taking her medications regularly. Source of History: patient Onset: recently Position: other (global) Symptom Intensity: moderate Quality: other (Depression) Timing: worsening Note: The patient has been hearing voices and has a suicidal ideation with a plan. She denies doing any drugs, drinking any alcohol, or missing any of her normal medications. Review of Systems See HPI for pertinent positives & negatives. A total of 10 systems reviewed and were otherwise negative. Past Medical & Surgical Medical Problems: (1) Asthma (2) Asthma with status asthmaticus (3) Bacterial pneumonia (4) Class II obesity (5) Depression (6) Diabetes mellitus type 2 (7) Dyslipidemia (8) Hypertension (9) Hypothyroidism (10) Schizoaffective disorder, depressive type (11) Suicidal ideation (12) Type 2 diabetes mellitus Family History FH: cancer FH: heart disease Hypertension Kidney disease Kidney stones Seizures Social History Smoking Status: Former Smoker Alcohol Use: none Drug Use: none Marital Status: single Housing Status: lives alone Occupation Status: disabled Current/Historical Medications Scheduled Aripiprazole (Abilify), 30 MG PO DAILY Atorvastatin (Atorvastatin Calcium), 10 MG PO HS Cholecalciferol (Cvs D3), 5,000 INTER.UNIT PO DAILY Clonazepam (Klonopin), 0.5 MG PO TID Desmopressin Acetate (Ddavp), 0.2 MG PO HS Escitalopram Oxalate (Lexapro), 20 MG PO DAILY Estradiol (Estradiol), 1 MG PO QAM Lamotrigine (Lamictal), 200 MG PO DAILY Levothyroxine Sodium (Levothyroxine Sodium), 125 MCG PO QAM Losartan Potassium (Cozaar), 50 MG PO QAM Metformin Hcl (Glucophage), 500 MG PO QAM Metformin Hcl (Glucophage), 1,000 MG PO QPM Mirtazapine Soltab (Remeron Soltab), 30 MG PO HS Montelukast Sodium (Singulair), 10 MG PO HS Multivitamin (Multivitamin), 1 TAB PO DAILY Probiotic Product (Probiotic), 1 CAP PO DAILY Thiothixene (Navane), 10 MG PO QD@12noon Thiothixene (Navane), 20 MG PO HS Scheduled PRN Clonazepam (Klonopin), 0.5 MG PO DAILY PRN for Anxiety Thiothixene (Navane), 10 MG PO DAILY PRN for Hallucinations Allergies Coded Allergies: Chlorpromazine (Verified Allergy, Mild, LIGHTHEADED SHUFFLING GAIT, ) Aspirin (Verified Allergy, Unknown, 12/17/16) Doxycycline (Unverified Allergy, Unknown, HEARING VOICES, 12/17/16) Levofloxacin (Verified Allergy, Unknown, ?ALLERGIC TO LEVAQUIN?, 12/17/16) NSAIDs (Verified Allergy, Unknown, ., 12/17/16) Penicillins (Verified Allergy, Unknown, RASH, 12/17/16) Prednisone (Verified Allergy, Unknown, ., 12/17/16) Quinine (Verified Allergy, Unknown, 12/17/16) Physical Exam Vital Signs Date Time Temp Pulse Resp B/P (MAP) Pulse Ox O2 Delivery O2 Flow Rate FiO2 01/29/17 21:15 86 20 124/71 94 Room Air 01/29/17 19:17 37.0 90 20 174/90 96 Room Air Physical Exam CONSTITUTIONAL/VITAL SIGNS: Reviewed / noted above. GENERAL: Non-toxic in appearance. INTEGUMENTARY: Warm, dry, and [place]. HEAD: Normocephalic. EYES: without scleral icterus or trauma. ENT/OROPHARYNX: clear and moist. LYMPHADENOPATHY/NECK: Is supple without lymphadenopathy or meningismus. RESPIRATORY: Lungs clear and equal. CARDIOVASCULAR: Regular rate and rhythm. GI/ABDOMEN: Soft and nontender. No organomegaly or pulsatile mass. No rebound or guarding. Normal bowel sounds. EXTREMITIES: Warm and well perfused. BACK: No CVA tenderness. NEUROLOGICAL: Intact without focal deficits. PSYCHIATRIC: normal affect. Admits suicidal ideation with a plan and auditory hallucinations. MUSCULOSKELETAL: Normally developed with good muscle tone. Medical Decision & Procedures Laboratory Results 01/29/17 21:15 Red Blood Count 4.34, Mean Corpuscular Volume 81.6, Mean Corpuscular Hemoglobin 27.4, Mean Corpuscular Hemoglobin Concent 33.6, Mean Platelet Volume 8.8, Neutrophils (%) (Auto) 59.2, Lymphocytes (%) (Auto) 34.1, Monocytes (%) (Auto) 6.4, Eosinophils (%) (Auto) 0.0, Basophils (%) (Auto) 0.1, Neutrophils # (Auto) 5.46, Lymphocytes # (Auto) 3.15, Monocytes # (Auto) 0.59, Eosinophils # (Auto) 0.00, Basophils # (Auto) 0.01 01/29/17 21:15 Test 01/29/17 19:25 01/29/17 21:15 Urine Color YELLOW Urine Appearance CLEAR (CLEAR) Urine pH 5.0 (4.5-7.5) Urine Specific [place] 1.015 (1.000-1.030) Urine Protein NEG (NEG) Urine Glucose (UA) NEG (NEG) Urine Ketones NEG (NEG) Urine Occult Blood NEG (NEG) Urine Nitrite NEG (NEG) Urine Bilirubin NEG (NEG) Urine Urobilinogen NEG (NEG) Urine Leukocyte Esterase MODERATE (NEG) Urine WBC (Auto) 10-30 /hpf (0-5) Urine RBC (Auto) 0-4 /hpf (0-4) Urine Hyaline Casts (Auto) 1-5 /lpf (0-5) Urine Epithelial Cells (Auto) 20-30 /lpf (0-5) Urine Bacteria (Auto) 4+ (NEG) Urine Opiates Screen NEG (NEG) Urine Methadone, Qualitative NEG (NEG) Urine Barbiturates NEG (NEG) Urine Phencyclidine (PCP) Level NEG (NEG) Ur Amphetamine/Methamphetamine NEG (NEG) MDMA (Ecstasy) Screen NEG (NEG) Urine Benzodiazepines Screen NEG (NEG) Urine Cocaine Metabolite NEG (NEG) Urine Marijuana (THC) NEG (NEG) White Blood Count 9.23 K/uL (4.8-10.8) Red Blood Count 4.34 M/uL (4.2-5.4) Hemoglobin 11.9 g/dL (12.0-16.0) Hematocrit 35.4 % (37-47) Mean Corpuscular Volume 81.6 fL (80-100) Mean Corpuscular Hemoglobin 27.4 pg (25-34) Mean Corpuscular Hemoglobin Concent 33.6 g/dl (32-36) Platelet Count 230 K/uL (130-400) Mean Platelet Volume 8.8 fL (7.4-10.4) Neutrophils (%) (Auto) 59.2 % Lymphocytes (%) (Auto) 34.1 % Monocytes (%) (Auto) 6.4 % Eosinophils (%) (Auto) 0.0 % Basophils (%) (Auto) 0.1 % Neutrophils # (Auto) 5.46 K/uL (1.4-6.5) Lymphocytes # (Auto) 3.15 K/uL (1.2-3.4) Monocytes # (Auto) 0.59 K/uL (0.11-0.59) Eosinophils # (Auto) 0.00 K/uL (0-0.5) Basophils # (Auto) 0.01 K/uL (0-0.2) RDW Standard Deviation 40.2 fL (36.4-46.3) RDW Coefficient of Variation 13.3 % (11.5-14.5) Immature Granulocyte % (Auto) 0.2 % Immature Granulocyte # (Auto) 0.02 K/uL (0.00-0.02) Anion Gap 5.0 mmol/L (3-11) Est Creatinine Clear Calc Drug Dose 149.5 ml/min Estimated GFR () 130.1 Estimated GFR (Non- 112.3 BUN/Creatinine Ratio 25.7 (10-20) Calcium Level 8.8 mg/dl (8.5-10.1) Total Bilirubin 0.1 mg/dl (0.2-1) Aspartate Amino Transf (AST/SGOT) 13 U/L (15-37) Alanine Aminotransferase (ALT/SGPT) 17 U/L (12-78) Alkaline Phosphatase 56 U/L (45-117) Total Protein 6.3 gm/dl (6.4-8.2) Albumin 3.3 gm/dl (3.4-5.0) Globulin 3.0 gm/dl (2.5-4.0) Albumin/Globulin Ratio 1.1 (0.9-2) Thyroid Stimulating Hormone (TSH) 1.520 uIu/ml (0.300-4.500) Salicylates Level < 1.7 mg/dl (2.8-20) Acetaminophen Level < 2 ug/ml (10-30) Ethyl Alcohol mg/dL < 3.0 mg/dl (0-3) Laboratory results as stated above per my review. ED Course 1930: Previous medical records were reviewed. The patient was evaluated in room A6. A complete history and physical examination was performed. Medical Decision Differential includes toxic ingestions, self-mutilation, suicidal ideation, suicide attempt, and depression. This is a 46-year-old female who presents to the ED with a chief complaint of suicidal ideation and depression. She states that she is thinking about overdosing on pills. Further details listed above. The patient has been medically cleared. She will be accepted at [facility] [address]. for admission. Medication Reconcilliation Current Medication List: was personally reviewed by me Blood Pressure Screening Patient's blood pressure: Normal blood pressure Blood pressure disposition: Did not require urgent referral Impression Primary Impression: Suicidal ideation Additional Impression: Depression Scribe Attestation The scribe's documentation has been prepared under my direction and personally reviewed by me in its entirety. I confirm that the note above accurately reflects all work, treatment, procedures, and medical decision making performed by me. Departure Information Dispostion Mental Health Acute Care Referrals No Doctor, Assigned (PCP) Patient Instructions My [facility] Problem Qualifiers
[2017-01-29] MEDS ORDERED: THIOTHIXENE 5 MG CAP PO ONE (23:45)
[2017-01-29] MEDS ORDERED: MONTELUKAST SOD 10 MG TAB PO ONE (23:45)
[2017-01-30 06:51] VITALS: BP 128/84; PULSE 64; PULSE 76; TEMP 36.9
[2017-01-30] MEDS: LEVOTHYROXINE 125 MCG TAB PO SCH (08:00)
[2017-01-30] MEDS ORDERED: NON-FORMULARY MEDICATION (Probiotic Product (Probiotic) 1 CAP) PO SCH (09:00)
[2017-01-30] MEDS: ESTRADIOL 1 MG TAB PO SCH (09:12)
[2017-01-30] MEDS: ARIPIprazole TAB 15 MG TAB PO SCH (09:12)
[2017-01-30] MEDS: METFORMIN HCL 500 MG TAB PO SCH ×2 (09:12→18:08)
[2017-01-30] MEDS: LOSARTAN POTASSIUM 50 MG TAB PO SCH (09:12)
[2017-01-30] MEDS: CHOLECALCIFEROL 1000 INTER.UNIT TAB PO SCH (09:13)
[2017-01-30] MEDS: ESCITALOPRAM OXALATE 20 MG TAB PO SCH (09:13)
[2017-01-30] MEDS: CLONAZEPAM 0.5 MG TAB PO SCH ×3 (09:13→21:07)
[2017-01-30] MEDS: MULTIVITAMIN TAB PO SCH (09:13)
[2017-01-30] MEDS: THIOTHIXENE 5 MG CAP PO SCH ×2 (12:08→21:08)
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
[2017-01-30] MEDS: DESMOPRESSIN ACETATE 0.1 MG TAB PO SCH (21:07)
[2017-01-30] MEDS: ATORVASTATIN 10 MG TAB PO SCH (21:07)
[2017-01-30] MEDS: MONTELUKAST SOD 10 MG TAB PO SCH (21:08)
[2017-01-30] MEDS: MIRTAZAPINE SOLTAB 15 MG PO SCH (21:08)
[2017-01-31 06:56] VITALS: BP_SYST 123; BP_DIAS 77; BP_DIAS 78; PULSE 60; PULSE 61; TEMP 36.9
[2017-01-31 07:02] VITALS: BMI 40.5
[2017-01-31] MEDS: LEVOTHYROXINE 125 MCG TAB PO SCH (08:54)
[2017-01-31] MEDS: ARIPIprazole TAB 15 MG TAB PO SCH (08:54)
[2017-01-31] MEDS: METFORMIN HCL 500 MG TAB PO SCH ×2 (08:54→17:35)
[2017-01-31] MEDS: CLONAZEPAM 0.5 MG TAB PO SCH ×3 (08:54→21:04)
[2017-01-31] MEDS: ESTRADIOL 1 MG TAB PO SCH (08:54)
[2017-01-31] MEDS: LOSARTAN POTASSIUM 50 MG TAB PO SCH (08:54)
[2017-01-31] MEDS: MULTIVITAMIN TAB PO SCH (08:55)
[2017-01-31] MEDS: ESCITALOPRAM OXALATE 20 MG TAB PO SCH (08:55)
[2017-01-31] MEDS: CHOLECALCIFEROL 1000 INTER.UNIT TAB PO SCH (08:55)
--- NOTE | 2017-01-31 10:45 | Psychiatric Progress Notes ---
Progress Note Date of Service Jan 31, 2017. Interval History 46-year-old woman with schizoaffective disorder depressed type, admitted with failed outpatient treatment and ongoing severe depression and hallucinations. She has not responded well to medication adjustments and her depression continues. In reviewing her outpatient records, she has long presented with depression that is only intermittently relieved with medications. At this point we are suggesting a trial of ECT to which the patient is agreeable. I have reviewed this with her family who support her decision. We will have social work proceed to make referrals to multiple facilities but hopefully one can be found that is not too far away. Her tenriism members and agreed to helped with transportation. For now we will continue all of her outpatient medications at their current dosages but suspect they will want us to discontinue all antiseizure medications prior to ECT. We will make no changes until a receiving facility has been found. Her urinalysis is positive for 4+ bacteria with sensitivity pending. I will await the sensitivity before prescribing and she is currently asymptomatic. At this time, the patient requires inpatient mental health treatment due to ongoing severe depression with command hallucinations to harm herself. Chief Complaint "Not very good.". Subjective Patient was seen & assessed interval progress reviewed with Treatment Team. The patient continues to feel depressed, and "frustrated" that medications have not worked. She continue to have auditory hallucinations of her father's voice telling her to kill herself, but says that she doesn't want to , and knows that she will not act on them here, but worries that she might if not in the hospital. She did take a prn of navane yesterday which she found helpful. She is still in favor of ECT, but would like to go to the nearest facility that will accept her. She says she has been showering, and going to groups. Her appetite is up and is worried about putting on the weight she has lost, and asks about stopping the Remeron, while at the same time acknowledging that it has been helpful to her sleep. She has been praying as a means of coping, and talking with her family regularly, who also support her decisions. We administer a MoCA and she is very anxious about her performance, at times not wanting to complete a task because she fears she can't do it. Review of Systems Constitutional: No fever, No chills, No sweats, No weight loss, No weakness, No fatigue, No problem reported ENT: No hearing loss, No unusual epistaxis, No nasal symptoms, No sore throat, No tinnitus, No dental problems, No trouble swallowing, No problem reported Respiratory: No cough, No sputum, No wheezing, No shortness of breath, No dyspnea on exertion, No dyspnea at rest, No hemoptysis, No problem reported Cardiovascular: No chest pain, No orthopnea, No PND, No edema, No claudication , No palpitations, No problem reported Abdomen: No pain, No nausea, No vomiting, No diarrhea, No constipation, No GI bleeding, No problem reported Musculoskeletal: + problem reported (walks with a cane for stability) Neurologic: No memory loss, No paralysis, No weakness, No numbness/tingling, No vertigo, No balance problems, No problem reported Psychiatric: + depression symptoms, + anxiety Integumentary: No rash, No itch, No new/changing skin lesions, No color change , No bleeding, No problem reported Sleep Information Total Hours of Sleep: 9.00 Meal Information Percent of Breakfast Consumed: 100 Percent of Lunch Consumed: 100 Percent of Dinner Consumed: 100 Mental Status Exam During interview pt is: alert and oriented, cooperative Appearance: appropriately dressed, disheveled Eye contact is: good Motor behavior is: tremor (left greater than right upper extremities) Speech: normal in rate, rhythm & volume Affect: mood congruent, flat Mood is: depressed, anxious Thought process: goal directed Thought content: reality based without delusions Suicidal thought are: present, Plan: denied, Intent: denied Homicidal thoughts are: denied Hallucinations: auditory, denies visual Cognition: memory grossly intact, attention grossly intact, language grossly intact Intelligence estimated to be: average Insight: impaired Judgement: impaired Summary of Past History 01/31/17 MoCA 21/30 Impression Our recommendation at this point is for ECT, for diagnosis of schizoaffective disorder, depressed type, current episode depressed, severe with psychotic features. She has had a hysterectomy and so is not in need of a test. MoCA has been administered on which she scores 21/30, but I believe that her performance was affected by test anxiety. She has agreed to the ECT, but hopes that a closer facility will be available to her rather than one that she will have to travel a long distance for. I will increase her Navane prn to BID. Referrals to multiple facilities are underway. Plan (1) Schizoaffective disorder, depressive type 01/30 - Recommend ECT patient is agreeable and will make referrals to multiple facilities - Will continue current medication regimen -Every 15 minute checks for safety -Reality orientation -Coordinate with current outpatient providers - encourage participation in group and individual counseling - Coordinate with family - last FLP and FBS performed 12/19/16 and WNL 01/31 - Continue ECT referrals - Increase Navane prn to BID (2) UTI (urinary tract infection) 01/30 -UA positive for bacteria, await final culture and sensitivity (3) Diabetes mellitus type 2 01/30 - Continue home medications -Monitor blood sugars daily -Encourage activity and appropriate diet selection (4) Hypothyroidism 01/30 - Continue home dose of levothyroxine -TSH within normal limits (5) Hypertension 01/30 - Continue home medications - Monitor BP (6) Asthma 01/30 - continue home medications (7) Dyslipidemia 01/30 - Continue home medications - Last FLP done 12/19/16 and WNL Has been reviewed with Dr. Archana Urbina Discharge / Aftercare Planning Primary Care Physician: Name: Dr Tam Psychiatrist: Name: Kassandra VALERIO Date of Appointment: Feb 05, 2017 Time of Appointment: 3:00pm Therapist: Name: Lamar Miller Date of Appointment: Feb 12, 2017 Time of Appointment: 11:00am Mechanical Unit Repairer: Name: Ramiro Santo Visit Code E&M Code: 30989 Inventory Assets Strengths: Good support system, love of her family Needs: Increase activity Risk Factors Assessment : Yes /single/: Yes Higher / Fall in social status: No Health problems: Yes Mental Health Diagnoses: Yes Substance use disorders: No Previous attempt: Yes Previous psychiatric stay: Yes Hopelessness: Yes Smoker: No Protective Factors Assessment Orthodox beliefs: Yes : No Responsible for young children: No Employed: Yes Stable relationships: Yes Supportive family: Yes Good rapport with provider: Yes Data Vital Signs Last 24 Hrs: Date Time Temp Pulse Resp B/P (MAP) Pulse Ox O2 Delivery O2 Flow Rate FiO2 01/31/17 06:56 36.9 60 16 123/78 61 123/77 Meds Administered Last 24 Hrs: Meds Administered (Past 24Hrs) Medications (Trade) Dose Ordered Sig/Christofer Route Start Time Stop Time Status Last Admin Dose Admin Aripiprazole (Abilify Tab) 30 mg DAILY PO 01/30/17 09:00 03/01/17 08:59 01/31/17 08:54 30 MG Atorvastatin Calcium (Lipitor Tab) 10 mg HS PO 01/30/17 21:00 03/01/17 20:59 01/30/17 21:07 10 MG Clonazepam (Klonopin Tab) 0.5 mg TID PO 01/30/17 09:00 03/01/17 08:59 01/31/17 08:54 0.5 MG Escitalopram Oxalate (Lexapro Tab) 20 mg DAILY PO 01/30/17 09:00 03/01/17 08:59 01/31/17 08:55 20 MG Estradiol (Estrace Tab) 1 mg QAM PO 01/30/17 09:00 03/01/17 08:59 01/31/17 08:54 1 MG Lamotrigine (Lamictal Tab) 200 mg DAILY PO 01/30/17 09:00 03/01/17 08:59 01/31/17 08:55 200 MG Levothyroxine Sodium (Synthroid Tab) 125 mcg DAILYBB PO 01/30/17 07:00 03/01/17 06:59 01/31/17 08:54 125 MCG Losartan Potassium (coZAAR TAB) 50 mg QAM PO 01/30/17 09:00 03/01/17 08:59 01/31/17 08:54 50 MG Metformin HCl (Glucophage Tab) 1,000 mg DAILY@1800 PO 01/30/17 18:00 03/01/17 17:59 01/30/17 18:08 1,000 MG Metformin HCl (Glucophage Tab) 500 mg QAM PO 01/30/17 09:00 03/01/17 08:59 01/31/17 08:54 500 MG Montelukast Sodium (Singulair Tab) 10 mg HS PO 01/30/17 21:00 03/01/17 20:59 01/30/17 21:08 10 MG Multivitamins (Multivitamin Tab) 1 tab DAILY PO 01/30/17 09:00 03/01/17 08:59 01/31/17 08:55 1 TAB Thiothixene (Navane Cap) 10 mg DAILY PRN PO 01/29/17 22:30 01/31/17 09:55 DC 01/30/17 16:12 10 MG Thiothixene (Navane Cap) 10 mg DAILY@1200 PO 01/30/17 12:00 03/01/17 11:59 01/30/17 12:08 10 MG Thiothixene (Navane Cap) 20 mg HS PO 01/30/17 21:00 03/01/17 20:59 01/30/17 21:08 20 MG Cholecalciferol (Vitamin D Tab) 5,000 inter.unit DAILY PO 01/30/17 09:00 03/01/17 08:59 01/31/17 08:55 5,000 INTER.UNIT Desmopressin Acetate (Desmopressin Acetate) 0.2 mg HS PO 01/30/17 21:00 03/01/17 20:59 01/30/17 21:07 0.2 MG Mirtazapine (Remeron Solutab) 30 mg HS PO 01/30/17 21:00 03/01/17 20:59 01/30/17 21:08 30 MG Atorvastatin Calcium (Lipitor Tab) 10 mg TODAY@2300 PO 01/29/17 23:00 01/30/17 02:00 DC 01/30/17 00:24 10 MG Clonazepam (Klonopin Tab) 0.5 mg TODAY@2300 PO 01/29/17 23:00 01/30/17 02:00 DC 01/30/17 00:23 0.5 MG Montelukast Sodium (Singulair Tab) 10 mg 2345 ONCE PO 01/29/17 23:45 01/29/17 23:46 DC 01/30/17 00:24 10 MG Thiothixene (Navane Cap) 20 mg ONE ONCE PO 01/29/17 23:45 01/29/17 23:46 DC 01/30/17 00:24 20 MG Lab Results Last 24 Hrs: Last 24 Hours Test 01/31/17 08:00 Bedside Glucose 92 mg/dl Problem Qualifiers (1) UTI (urinary tract infection): Indwelling urinary catheter type: unspecified
[2017-01-31] MEDS: THIOTHIXENE 5 MG CAP PO SCH ×2 (11:51→21:05)
[2017-01-31] MEDS: DESMOPRESSIN ACETATE 0.1 MG TAB PO SCH (21:04)
[2017-01-31] MEDS: ATORVASTATIN 10 MG TAB PO SCH (21:04)
[2017-01-31] MEDS: MIRTAZAPINE SOLTAB 15 MG PO SCH (21:05)
[2017-01-31] MEDS: MONTELUKAST SOD 10 MG TAB PO SCH (21:05)
--- NOTE | 2017-01-31 21:08 | DIAGNOSTIC IMAGING REPORT ---
Brain MRI WITHOUT CONTRAST HISTORY: Dizziness. pre ECT work up, requested by [facility] TECHNIQUE: Multiplanar multisequence MRI of the brain was performed without the use of contrast. COMPARISON STUDY: None. FINDINGS: There are no areas of restricted diffusion to suggest acute infarction. The midline structures are intact. The paranasal sinuses are clear. The mastoid air cells are clear. The ventricles and sulci are within normal limits for age. There is no mass, hematoma, midline shift. The major vascular flow-voids at the skull base are well maintained. IMPRESSION: No acute intracranial abnormality. Electronically signed by: Easton Kang M.D. 01/31/2017 9:07 PM Dictated Date/Time: 01/31/2017 9:03 PM
[2017-02-01 07:06] VITALS: BP_SYST 108; BP_SYST 114; BP_DIAS 69; BP_DIAS 73; PULSE 63; PULSE 67; TEMP 37
[2017-02-01] MEDS: ARIPIprazole TAB 15 MG TAB PO SCH (09:21)
[2017-02-01] MEDS: LOSARTAN POTASSIUM 50 MG TAB PO SCH (09:21)
[2017-02-01] MEDS: LEVOTHYROXINE 125 MCG TAB PO SCH (09:21)
[2017-02-01] MEDS: METFORMIN HCL 500 MG TAB PO SCH ×2 (09:22→17:22)
[2017-02-01] MEDS: CLONAZEPAM 0.5 MG TAB PO SCH ×2 (09:22→17:21)
[2017-02-01] MEDS: ESTRADIOL 1 MG TAB PO SCH (09:22)
[2017-02-01] MEDS: MULTIVITAMIN TAB PO SCH (09:23)
[2017-02-01] MEDS: ESCITALOPRAM OXALATE 20 MG TAB PO SCH (09:23)
[2017-02-01] MEDS: CHOLECALCIFEROL 1000 INTER.UNIT TAB PO SCH (09:23)
[2017-02-01] MEDS: THIOTHIXENE 5 MG CAP PO PRN ×2 (10:45→16:03)
[2017-02-01] MEDS: THIOTHIXENE 5 MG CAP PO SCH ×2 (12:09→21:07)
--- NOTE | 2017-02-01 12:42 | Psychiatric Progress Notes ---
Progress Note Date of Service Feb 01, 2017. Interval History 46-year-old woman with schizoaffective disorder depressed type, admitted with failed outpatient treatment and ongoing severe depression and hallucinations. She has been referred to [facility]. Chief Complaint "my air traffic control specialist would like more info on ECT". Subjective Patient was seen & assessed interval progress reviewed with Nursing. Patient states that she had a difficult evening due to level of depression and voices tell her "negative things". She denies command nguyen or desire to act on them. Staff felt she appeared brighter in interactions with others. She does verbalize some hopefulness about ECT. Reviewed MRI results (no intracranial process) and rationale for med tapers of benzos and Lamictal. Review of Systems Psych: denies symptoms other than stated above Constitutional: denied Cardiovascular: denied GI: denied Neurologic: denied Remainder of 10 body systems also reviewed and denied other than noted above. Sleep Information Total Hours of Sleep: 8.25 Meal Information Percent of Breakfast Consumed: 100 Percent of Lunch Consumed: 100 Percent of Dinner Consumed: 100 Mental Status Exam During interview pt is: alert and oriented, cooperative Appearance: appropriately dressed, appropriately groomed Eye contact is: good Motor behavior is: tremor (left greater than right upper extremities) Speech: normal in rate, rhythm & volume Affect: mood congruent, constricted Mood is: depressed, anxious Thought process: goal directed Thought content: reality based without delusions Suicidal thought are: present, Plan: denied, Intent: denied Homicidal thoughts are: denied Hallucinations: auditory, denies visual Cognition: memory grossly intact, attention grossly intact, language grossly intact Intelligence estimated to be: average Insight: impaired Judgement: impaired Summary of Past History 01/31/17 MoCA 21/30 Impression Our recommendation at this point is for ECT, for diagnosis of schizoaffective disorder, depressed type, current episode depressed, severe with psychotic features. She has had a hysterectomy and so is not in need of a test. MoCA has been administered on which she scores 21/30, but TEODORO Arce believe that her performance was affected by test anxiety. MRI negative. Plan (1) Schizoaffective disorder, depressive type 01/30 - Recommend ECT patient is agreeable and will make referrals to multiple facilities - Will continue current medication regimen -Every 15 minute checks for safety -Reality orientation -Coordinate with current outpatient providers - encourage participation in group and individual counseling - Coordinate with family - last FLP and FBS performed 12/19/16 and WNL 01/31 - Continue ECT referrals - Increase Navane prn to BID 02/01 --tentative acceptance to [facility] for ECT on 02/05, begin klonopin and lamictal tapers (2) UTI (urinary tract infection) 01/30 -UA positive for bacteria, await final culture and sensitivity 02/01--culture grew Klebsiella, resistant to nitrofurantoin, will use Bactrum DS as uncomplicated, drug allergy list reviewed. (3) Diabetes mellitus type 2 01/30 - Continue home medications -Monitor blood sugars daily -Encourage activity and appropriate diet selection (4) Hypothyroidism 01/30 - Continue home dose of levothyroxine -TSH within normal limits (5) Hypertension 01/30 - Continue home medications - Monitor BP (6) Asthma 01/30 - continue home medications (7) Dyslipidemia 01/30 - Continue home medications - Last FLP done 12/19/16 and WNL Has been reviewed with Dr. Archana Urbina Discharge / Aftercare Planning Primary Care Physician: Name: Dr Tam Psychiatrist: Name: Kassandra VALERIO Date of Appointment: Feb 05, 2017 Time of Appointment: 3:00pm Therapist: Name: Lamar Miller Date of Appointment: Feb 12, 2017 Time of Appointment: 11:00am Crystal Syrup Maker: Name: Ramiro Ebonyailyn Visit Code E&M Code: 65331 Inventory Assets Strengths: Good support system, love of her family Needs: Increase activity Risk Factors Assessment : Yes /single/: Yes Higher / Fall in social status: No Health problems: Yes Mental Health Diagnoses: Yes Substance use disorders: No Previous attempt: Yes Previous psychiatric stay: Yes Hopelessness: Yes Smoker: No Protective Factors Assessment Pentecostalism beliefs: Yes : No Responsible for young children: No Employed: Yes Stable relationships: Yes Supportive family: Yes Good rapport with provider: Yes Data Vital Signs Last 24 Hrs: Date Time Temp Pulse Resp B/P (MAP) Pulse Ox O2 Delivery O2 Flow Rate FiO2 02/01/17 07:06 37.0 67 16 108/69 63 114/73 Meds Administered Last 24 Hrs: Meds Administered (Past 24Hrs) Medications (Trade) Dose Ordered Sig/Christofer Route Start Time Stop Time Status Last Admin Dose Admin Atorvastatin Calcium (Lipitor Tab) 10 mg HS PO 01/30/17 21:00 03/01/17 20:59 01/31/17 21:04 10 MG Metformin HCl (Glucophage Tab) 1,000 mg DAILY@1800 PO 01/30/17 18:00 03/01/17 17:59 01/31/17 17:35 1,000 MG Montelukast Sodium (Singulair Tab) 10 mg HS PO 01/30/17 21:00 03/01/17 20:59 01/31/17 21:05 10 MG Thiothixene (Navane Cap) 20 mg HS PO 01/30/17 21:00 03/01/17 20:59 01/31/17 21:05 20 MG Desmopressin Acetate (Desmopressin Acetate) 0.2 mg HS PO 01/30/17 21:00 03/01/17 20:59 01/31/17 21:04 0.2 MG Mirtazapine (Remeron Solutab) 30 mg HS PO 01/30/17 21:00 03/01/17 20:59 01/31/17 21:05 30 MG Thiothixene (Navane Cap) 10 mg BID PRN PO 01/31/17 22:00 02/28/17 22:29 02/01/17 10:45 10 MG Clonazepam (Klonopin Tab) 0.5 mg BID17 PO 02/01/17 09:00 02/28/17 22:29 02/01/17 09:22 0.5 MG Lamotrigine (Lamictal Tab) 100 mg DAILY PO 02/01/17 09:00 03/01/17 08:59 02/01/17 09:23 100 MG Lab Results Last 24 Hrs: Last 24 Hours Test 02/01/17 08:59 Bedside Glucose 97 mg/dl Problem Qualifiers (1) UTI (urinary tract infection): Indwelling urinary catheter type: unspecified
[2017-02-01] MEDS: hydrOXYzine HCL 25 MG TAB PO PRN (13:28)
[2017-02-01] MEDS: SULFAMETHOXAZOLE/TRIMETHOPRIM DS 800/160MG TAB PO SCH ×2 (13:28→21:06)
[2017-02-01] MEDS: DESMOPRESSIN ACETATE 0.1 MG TAB PO SCH (21:07)
[2017-02-01] MEDS: MONTELUKAST SOD 10 MG TAB PO SCH (21:07)
[2017-02-01] MEDS: MIRTAZAPINE SOLTAB 15 MG PO SCH (21:07)
[2017-02-01] MEDS: ATORVASTATIN 10 MG TAB PO SCH (21:07)
[2017-02-02 07:03] VITALS: BP_SYST 126; BP_SYST 129; BP_DIAS 80; BP_DIAS 82; PULSE 65; PULSE 69; TEMP 36.8
[2017-02-02] MEDS: LEVOTHYROXINE 125 MCG TAB PO SCH (08:29)
[2017-02-02] MEDS: ARIPIprazole TAB 15 MG TAB PO SCH (08:29)
[2017-02-02] MEDS: LOSARTAN POTASSIUM 50 MG TAB PO SCH (08:30)
[2017-02-02] MEDS: METFORMIN HCL 500 MG TAB PO SCH ×2 (08:30→17:39)
[2017-02-02] MEDS: ESTRADIOL 1 MG TAB PO SCH (08:30)
[2017-02-02] MEDS: MULTIVITAMIN TAB PO SCH (08:31)
[2017-02-02] MEDS: ESCITALOPRAM OXALATE 20 MG TAB PO SCH (08:31)
[2017-02-02] MEDS: SULFAMETHOXAZOLE/TRIMETHOPRIM DS 800/160MG TAB PO SCH ×2 (08:31→21:16)
[2017-02-02] MEDS: CHOLECALCIFEROL 1000 INTER.UNIT TAB PO SCH (08:32)
[2017-02-02] MEDS: CLONAZEPAM 0.5 MG TAB PO SCH ×2 (08:33→17:09)
[2017-02-02] MEDS: THIOTHIXENE 5 MG CAP PO SCH ×2 (12:12→21:16)
[2017-02-02] MEDS: hydrOXYzine HCL 25 MG TAB PO PRN ×2 (12:53→21:20)
--- NOTE | 2017-02-02 15:22 | Psychiatric Progress Notes ---
Progress Note Date of Service Feb 02, 2017. Interval History 46-year-old woman with schizoaffective disorder depressed type, admitted with failed outpatient treatment and ongoing severe depression and hallucinations. She has been referred [facility]. Chief Complaint "I'm worried about Garryer". Subjective Patient was seen & assessed interval progress reviewed with Nursing. She received prn Navane last pm for anxiety/hallucinations. Tolerating Klonopin and lamictal tapers. She is displacing alot of her anxiety about transfer for ECT onto others, particularly her computer customer support specialist who is concerned about side effects and role of pharmacogenetic testing. Called cyber forensic specialist during meeting with Leisa at patients request and all questions answered to their satisfaction. Patient later approached me requesting I speak with brother tomorrow. Review of Systems Psych: denies symptoms other than stated above Constitutional: denied Cardiovascular: denied GI: denied Neurologic: denied Remainder of 10 body systems also reviewed and denied other than noted above. Sleep Information Total Hours of Sleep: 8.25 Meal Information Percent of Breakfast Consumed: 100 Percent of Lunch Consumed: 100 Percent of Dinner Consumed: 100 Mental Status Exam During interview pt is: alert and oriented, cooperative Appearance: appropriately dressed, appropriately groomed Eye contact is: good Motor behavior is: tremor (left greater than right upper extremities) Speech: normal in rate, rhythm & volume Affect: mood congruent, constricted Mood is: depressed, anxious Thought process: goal directed Thought content: reality based without delusions Suicidal thought are: denied, Plan: denied, Intent: denied Homicidal thoughts are: denied Hallucinations: auditory, denies visual Cognition: memory grossly intact, attention grossly intact, language grossly intact Intelligence estimated to be: average Insight: impaired Judgement: impaired Summary of Past History 01/31/17 MoCA 21/30 Impression Our recommendation at this point is for ECT, for diagnosis of schizoaffective disorder, depressed type, current episode depressed, severe with psychotic features. She has had a hysterectomy and so is not in need of a test. MoCA has been administered on which she scores 21/30, but TEODORO Arce believe that her performance was affected by test anxiety. MRI negative. Tapering Lamictal and Klonopin in anticipation of ECT. Plan (1) Schizoaffective disorder, depressive type 01/30 - Recommend ECT patient is agreeable and will make referrals to multiple facilities - Will continue current medication regimen -Every 15 minute checks for safety -Reality orientation -Coordinate with current outpatient providers - encourage participation in group and individual counseling - Coordinate with family - last FLP and FBS performed 12/19/16 and WNL 01/31 - Continue ECT referrals - Increase Navane prn to BID 02/01 --tentative acceptance to [facility] for ECT on 02/05, begin klonopin and lamictal tapers 02/02--risks/benefits/alternatives reviewed re: ECT with patient and cyber forensic specialist. Discussion included but was not limited to risks of cognitive impairment/memory loss from repeated anesthesia and reviewed ongoing plan for Klonopin taper to 0.25 mg BID 02/03 with last dose am of 02/04. Will receive 1 more dose of Lamictal 50 mg 02/03. (2) UTI (urinary tract infection) 01/30 -UA positive for bacteria, await final culture and sensitivity 02/01--culture grew Klebsiella, resistant to nitrofurantoin, will use Bactrum DS as uncomplicated, drug allergy list reviewed. (3) Diabetes mellitus type 2 01/30 - Continue home medications -Monitor blood sugars daily -Encourage activity and appropriate diet selection (4) Hypothyroidism 01/30 - Continue home dose of levothyroxine -TSH within normal limits (5) Hypertension 01/30 - Continue home medications - Monitor BP (6) Asthma 01/30 - continue home medications (7) Dyslipidemia 01/30 - Continue home medications - Last FLP done 12/19/16 and WNL Has been reviewed with Dr. Archana Urbina Discharge / Aftercare Planning Primary Care Physician: Name: Dr Tam Psychiatrist: Name: Kassandra VLAERIO Date of Appointment: Feb 05, 2017 Time of Appointment: 3:00pm Therapist: Name: Lamar Miller Date of Appointment: Feb 12, 2017 Time of Appointment: 11:00am Travel Coordinator: Name: Ramiro Santo Visit Code E&M Code: 03964 Inventory Assets Strengths: Good support system, love of her family Needs: Increase activity Risk Factors Assessment : Yes /single/: Yes Higher / Fall in social status: No Health problems: Yes Mental Health Diagnoses: Yes Substance use disorders: No Previous attempt: Yes Previous psychiatric stay: Yes Hopelessness: Yes Smoker: No Protective Factors Assessment Baptist beliefs: Yes : No Responsible for young children: No Employed: Yes Stable relationships: Yes Supportive family: Yes Good rapport with provider: Yes Data Vital Signs Last 24 Hrs: Date Time Temp Pulse Resp B/P (MAP) Pulse Ox O2 Delivery O2 Flow Rate FiO2 02/02/17 07:03 36.8 69 16 126/82 65 129/80 Meds Administered Last 24 Hrs: Meds Administered (Past 24Hrs) Medications (Trade) Dose Ordered Sig/Christofer Route Start Time Stop Time Status Last Admin Dose Admin Thiothixene (Navane Cap) 10 mg BID PRN PO 01/31/17 22:00 02/28/17 22:29 02/01/17 16:03 10 MG Clonazepam (Klonopin Tab) 0.5 mg BID17 PO 02/01/17 09:00 02/28/17 22:29 02/02/17 08:33 0.5 MG Lamotrigine (Lamictal Tab) 100 mg DAILY PO 02/01/17 09:00 03/01/17 08:59 02/02/17 08:31 100 MG Trimethoprim/ Sulfamethoxazole (Septra Ds 800/ 160MG Tab) 1 tab Q12 PO 02/01/17 12:45 02/06/17 12:44 02/02/17 08:31 1 TAB Problem Qualifiers (1) UTI (urinary tract infection): Indwelling urinary catheter type: unspecified
[2017-02-02] MEDS ORDERED: CLONAZEPAM 0.5 MG TAB PO SCH (17:00)
[2017-02-02] MEDS: THIOTHIXENE 5 MG CAP PO PRN (17:39)
[2017-02-02] MEDS: DESMOPRESSIN ACETATE 0.1 MG TAB PO SCH (21:16)
[2017-02-02] MEDS: MONTELUKAST SOD 10 MG TAB PO SCH (21:17)
[2017-02-02] MEDS: MIRTAZAPINE SOLTAB 15 MG PO SCH (21:17)
[2017-02-02] MEDS: ATORVASTATIN 10 MG TAB PO SCH (21:17)
[2017-02-03 06:37] VITALS: Ht 165.1 cm; Wt 110.3 kg
[2017-02-03 07:10] VITALS: BP_SYST 120; BP_DIAS 75; BP_DIAS 76; PULSE 67; PULSE 71; TEMP 37
[2017-02-03] MEDS: LEVOTHYROXINE 125 MCG TAB PO SCH (08:21)
[2017-02-03] MEDS: ESTRADIOL 1 MG TAB PO SCH (08:22)
[2017-02-03] MEDS: LOSARTAN POTASSIUM 50 MG TAB PO SCH (08:22)
[2017-02-03] MEDS: ARIPIprazole TAB 15 MG TAB PO SCH (08:22)
[2017-02-03] MEDS: ESCITALOPRAM OXALATE 20 MG TAB PO SCH (08:23)
[2017-02-03] MEDS: MULTIVITAMIN TAB PO SCH (08:23)
[2017-02-03] MEDS: METFORMIN HCL 500 MG TAB PO SCH ×2 (08:23→17:38)
[2017-02-03] MEDS: SULFAMETHOXAZOLE/TRIMETHOPRIM DS 800/160MG TAB PO SCH ×2 (08:23→21:17)
[2017-02-03] MEDS: CHOLECALCIFEROL 1000 INTER.UNIT TAB PO SCH (08:23)
[2017-02-03] MEDS: CLONAZEPAM 0.5 MG TAB PO SCH ×2 (08:24→17:04)
[2017-02-03] MEDS: THIOTHIXENE 5 MG CAP PO SCH ×2 (10:49→21:17)
[2017-02-03] MEDS: hydrOXYzine HCL 25 MG TAB PO PRN ×2 (12:53→21:19)
--- NOTE | 2017-02-03 15:24 | Psychiatric Progress Notes ---
Progress Note Date of Service Feb 03, 2017. Interval History 46-year-old woman with schizoaffective disorder depressed type, admitted with failed outpatient treatment and ongoing severe depression and hallucinations. She has been referred to [facility]. Chief Complaint "I'm really nervous". Subjective Patient was seen & assessed interval progress reviewed with Nursing. Patient was essentially "the same" overnight with ongoing depression and aud nguyen. She gets benefit from prn Daysi, more anxious this am as anticipating that older brother Morgan is not in support of ECT. We contacted Morgan by phone to review treatment team recs and discuss risks/benefits/alternatives re: ECT. He asked appropriate questions re: TMS and reviewed that [facility] protocol has nguyen as a contraindication plus would need to be stable for outpatient care. Reviewed that ECT remains most effective treatment and that medical work up has been forwarded. At conclusion of discussion he was clear that he plans to seek a second opinion from a TMS provider that is willing to treat "schizophrenia" and would be back in contact with treatment team tomorrow. He expressed that father would like to participate in future team meetings if possible. Review of Systems Psych: denies symptoms other than stated above Constitutional: denied Cardiovascular: denied GI: denied Neurologic: baseline tremor Remainder of 10 body systems also reviewed and denied other than noted above. Sleep Information Total Hours of Sleep: 8.00 Meal Information Percent of Breakfast Consumed: 100 Percent of Lunch Consumed: 80 Percent of Dinner Consumed: 100 Mental Status Exam During interview pt is: alert and oriented, cooperative Appearance: appropriately dressed, appropriately groomed Eye contact is: good Motor behavior is: tremor (left greater than right upper extremities) Speech: normal in rate, rhythm & volume Affect: mood congruent, constricted Mood is: depressed, anxious Thought process: goal directed Thought content: reality based without delusions Suicidal thought are: denied, Plan: denied, Intent: denied Homicidal thoughts are: denied Hallucinations: auditory, denies visual Cognition: memory grossly intact, attention grossly intact, language grossly intact Intelligence estimated to be: average Insight: impaired Judgement: impaired Summary of Past History 01/31/17 MoCA Impression Our recommendation at this point is for ECT, for diagnosis of schizoaffective disorder, depressed type, current episode depressed, severe with psychotic features. She has had a hysterectomy and so is not in need of a test. MoCA has been administered on which she scores 21/30, but TEODORO Arce believe that her performance was affected by test anxiety. MRI negative. Tapering Lamictal and Klonopin in anticipation of ECT. Plan (1) Schizoaffective disorder, depressive type 01/30 - Recommend ECT patient is agreeable and will make referrals to multiple facilities - Will continue current medication regimen -Every 15 minute checks for safety -Reality orientation -Coordinate with current outpatient providers - encourage participation in group and individual counseling - Coordinate with family - last FLP and FBS performed 12/19/16 and WNL 01/31 - Continue ECT referrals - Increase Navane prn to BID 02/01 --tentative acceptance to [facility] for ECT on 02/05, begin klonopin and lamictal tapers 02/02--risks/benefits/alternatives reviewed re: ECT with patient and laser specialist. Discussion included but was not limited to risks of cognitive impairment/memory loss from repeated anesthesia and reviewed ongoing plan for Klonopin taper to 0.25 mg BID 02/03 with last dose am of 02/04. Will receive 1 more dose of Lamictal 50 mg 02/03. (2) UTI (urinary tract infection) 01/30 -UA positive for bacteria, await final culture and sensitivity 02/01--culture grew Klebsiella, resistant to nitrofurantoin, will use Bactrum DS as uncomplicated, drug allergy list reviewed. (3) Diabetes mellitus type 2 01/30 - Continue home medications -Monitor blood sugars daily -Encourage activity and appropriate diet selection (4) Hypothyroidism 01/30 - Continue home dose of levothyroxine -TSH within normal limits (5) Hypertension 01/30 - Continue home medications - Monitor BP (6) Asthma 01/30 - continue home medications (7) Dyslipidemia 01/30 - Continue home medications - Last FLP done 12/19/16 and WNL Has been reviewed with Dr. Archana Urbina Discharge / Aftercare Planning Primary Care Physician: Name: Dr Tam Psychiatrist: Name: Kassandra VALERIO Date of Appointment: Feb 05, 2017 Time of Appointment: 3:00pm Therapist: Name: Lamar Miller Date of Appointment: Feb 12, 2017 Time of Appointment: 11:00am Cell Attendant: Name: Ramiro Santo Visit Code E&M Code: 02977 Inventory Assets Strengths: Good support system, love of her family Needs: Increase activity Risk Factors Assessment : Yes /single/: Yes Higher / Fall in social status: No Health problems: Yes Mental Health Diagnoses: Yes Substance use disorders: No Previous attempt: Yes Previous psychiatric stay: Yes Hopelessness: Yes Smoker: No Protective Factors Assessment Christianity beliefs: Yes : No Responsible for young children: No Employed: Yes Stable relationships: Yes Supportive family: Yes Good rapport with provider: Yes Data Vital Signs Last 24 Hrs: Date Time Temp Pulse Resp B/P (MAP) Pulse Ox O2 Delivery O2 Flow Rate FiO2 02/03/17 07:10 37.0 67 16 120/75 71 120/76 Meds Administered Last 24 Hrs: Meds Administered (Past 24Hrs) Medications (Trade) Dose Ordered Sig/Christofer Route Start Time Stop Time Status Last Admin Dose Admin Lamotrigine (Lamictal Tab) 50 mg ONE ONCE PO 02/03/17 09:00 02/03/17 09:01 DC 02/03/17 08:23 50 MG Clonazepam (Klonopin Tab) 0.25 mg BID17 PO 02/03/17 09:00 02/04/17 09:01 02/03/17 08:24 0.25 MG Problem Qualifiers (1) UTI (urinary tract infection): Indwelling urinary catheter type: unspecified
[2017-02-03] MEDS: ATORVASTATIN 10 MG TAB PO SCH (21:17)
[2017-02-03] MEDS: DESMOPRESSIN ACETATE 0.1 MG TAB PO SCH (21:17)
[2017-02-03] MEDS: MONTELUKAST SOD 10 MG TAB PO SCH (21:18)
[2017-02-03] MEDS: MIRTAZAPINE SOLTAB 15 MG PO SCH (21:18)
[2017-02-04 06:46] VITALS: BP_SYST 117; BP_SYST 123; BP_DIAS 77; BP_DIAS 79; PULSE 79; PULSE 82; TEMP 36.9
[2017-02-04] MEDS: ESTRADIOL 1 MG TAB PO SCH (08:26)
[2017-02-04] MEDS: LOSARTAN POTASSIUM 50 MG TAB PO SCH (08:26)
[2017-02-04] MEDS: LEVOTHYROXINE 125 MCG TAB PO SCH (08:26)
[2017-02-04] MEDS: ARIPIprazole TAB 15 MG TAB PO SCH (08:26)
[2017-02-04] MEDS: CLONAZEPAM 0.5 MG TAB PO SCH (08:27)
[2017-02-04] MEDS: METFORMIN HCL 500 MG TAB PO SCH ×2 (08:27→18:06)
[2017-02-04] MEDS: ESCITALOPRAM OXALATE 20 MG TAB PO SCH (08:28)
[2017-02-04] MEDS: CHOLECALCIFEROL 1000 INTER.UNIT TAB PO SCH (08:28)
[2017-02-04] MEDS: SULFAMETHOXAZOLE/TRIMETHOPRIM DS 800/160MG TAB PO SCH ×2 (08:28→20:58)
[2017-02-04] MEDS: MULTIVITAMIN TAB PO SCH (08:28)
--- NOTE | 2017-02-04 10:11 | Psychiatric Progress Notes ---
Progress Note Date of Service Feb 04, 2017. Interval History 46-year-old woman with schizoaffective disorder depressed type, admitted with failed outpatient treatment and ongoing severe depression and hallucinations. She has been referred to [facility] for ECT. Chief Complaint "Not so good.". Subjective Patient was seen & assessed interval progress reviewed with Treatment Team. The patient is still very depressed and tearful today. She says that she is tired of suffering with it. I review with her the conversation I had with her father this AM. He has reviewed a meta-analysis of articles comparing ECT to TMS and finds that ECT is superior in treating conditions with psychosis. I also inform her that her insurance would not authorized TMS given the component of psychosis. She would like to proceed with ECT, but has questions about the unit at [facility] that she would like to have answered. Her voices continue unabated despite using prns of navane regularly. She rates her mood 1/10, and reports anxiety about the prospect of getting ECT. She denies any visual experiences. She says that she does not want to go back on Klonopin as she thinks that she is having some withdrawal from it and doesn't want to have to experience that again. Review of Systems Constitutional: No fever, No chills, No sweats, No weight loss, No weakness, No fatigue, No problem reported ENT: No hearing loss, No unusual epistaxis, No nasal symptoms, No sore throat, No tinnitus, No dental problems, No trouble swallowing, No problem reported Respiratory: No cough, No sputum, No wheezing, No shortness of breath, No dyspnea on exertion, No dyspnea at rest, No hemoptysis, No problem reported Cardiovascular: No chest pain, No orthopnea, No PND, No edema, No claudication , No palpitations, No problem reported Abdomen: No pain, No nausea, No vomiting, No diarrhea, No constipation, No GI bleeding, No problem reported Musculoskeletal: + problem reported (walks with a cane for gait stability) Neurologic: + problem reported (tremors, rt>lt) Psychiatric: + depression symptoms, + anxiety Integumentary: No rash, No itch, No new/changing skin lesions, No color change , No bleeding, No problem reported Sleep Information Total Hours of Sleep: 8.00 Meal Information Percent of Breakfast Consumed: 100 Percent of Lunch Consumed: 80 Percent of Dinner Consumed: 100 Mental Status Exam During interview pt is: alert and oriented, cooperative Appearance: appropriately dressed, appropriately groomed Eye contact is: good Motor behavior is: tremor (left greater than right upper extremities) Speech: normal in rate, rhythm & volume Affect: mood congruent, depressed, tearful, constricted Mood is: depressed, anxious Thought process: goal directed Thought content: reality based without delusions Suicidal thought are: denied, Plan: denied, Intent: denied Homicidal thoughts are: denied Hallucinations: auditory, denies visual Cognition: memory grossly intact, attention grossly intact, language grossly intact Intelligence estimated to be: average Insight: impaired Judgement: impaired Summary of Past History 01/31/17 MoCA 21/30 Impression Our recommendation at this point is for ECT, for diagnosis of schizoaffective disorder, depressed type, current episode depressed, severe with psychotic features. She has had a hysterectomy and so is not in need of a test. MoCA has been administered on which she scores 21/30, but TEODORO Arce believe that her performance was affected by test anxiety. MRI negative. Lamictal and Klonpin have been tapered off in prep for ECT. Will call to [facility] today to see if all of the paperwork is in order, and when a bed may be available. Plan (1) Schizoaffective disorder, depressive type 01/30 - Recommend ECT patient is agreeable and will make referrals to multiple facilities - Will continue current medication regimen -Every 15 minute checks for safety -Reality orientation -Coordinate with current outpatient providers - encourage participation in group and individual counseling - Coordinate with family - last FLP and FBS performed 12/19/16 and WNL 01/31 - Continue ECT referrals - Increase Navane prn to BID 02/01 --tentative acceptance to [facility] for ECT on 02/05, begin klonopin and lamictal tapers 02/02--risks/benefits/alternatives reviewed re: ECT with patient and water rights specialist. Discussion included but was not limited to risks of cognitive impairment/memory loss from repeated anesthesia and reviewed ongoing plan for Klonopin taper to 0.25 mg BID 02/03 with last dose am of 02/04. Will receive 1 more dose of Lamictal 50 mg 02/03. 02/04 - Await word from [facility] re: ECT - Spoke with patient's father today. He would like to be notified when we have more definitive news. (2) UTI (urinary tract infection) 01/30 -UA positive for bacteria, await final culture and sensitivity 02/01--culture grew Klebsiella, resistant to nitrofurantoin, will use Bactrum DS as uncomplicated, drug allergy list reviewed. (3) Diabetes mellitus type 2 01/30 - Continue home medications -Monitor blood sugars daily -Encourage activity and appropriate diet selection (4) Hypothyroidism 01/30 - Continue home dose of levothyroxine -TSH within normal limits (5) Hypertension 01/30 - Continue home medications - Monitor BP (6) Asthma 01/30 - continue home medications (7) Dyslipidemia 01/30 - Continue home medications - Last FLP done 12/19/16 and WNL Has been reviewed with Dr. Archana Urbina Discharge / Aftercare Planning Primary Care Physician: Name: Dr Tam Psychiatrist: Name: Kassandra VALERIO Date of Appointment: Feb 05, 2017 Time of Appointment: 3:00pm Therapist: Name: Lamar Miller Date of Appointment: Feb 12, 2017 Time of Appointment: 11:00am Software Design Engineer: Name: Ramiro Santo Visit Code E&M Code: 23451 Inventory Assets Strengths: Good support system, love of her family Needs: Increase activity Risk Factors Assessment : Yes /single/: Yes Higher / Fall in social status: No Health problems: Yes Mental Health Diagnoses: Yes Substance use disorders: No Previous attempt: Yes Previous psychiatric stay: Yes Hopelessness: Yes Smoker: No Protective Factors Assessment Orthodox beliefs: Yes : No Responsible for young children: No Employed: Yes Stable relationships: Yes Supportive family: Yes Good rapport with provider: Yes Data Vital Signs Last 24 Hrs: Date Time Temp Pulse Resp B/P (MAP) Pulse Ox O2 Delivery O2 Flow Rate FiO2 02/04/17 06:46 36.9 82 16 117/79 79 123/77 Meds Administered Last 24 Hrs: Meds Administered (Past 24Hrs) Medications (Trade) Dose Ordered Sig/Christofer Route Start Time Stop Time Status Last Admin Dose Admin Lamotrigine (Lamictal Tab) 50 mg ONE ONCE PO 02/03/17 09:00 02/03/17 09:01 DC 02/03/17 08:23 50 MG Clonazepam (Klonopin Tab) 0.25 mg BID17 PO 02/03/17 09:00 02/04/17 09:01 DC 02/04/17 08:27 0.25 MG Lab Results Last 24 Hrs: Last 24 Hours Test 02/04/17 07:56 Bedside Glucose 88 mg/dl Problem Qualifiers (1) UTI (urinary tract infection): Indwelling urinary catheter type: unspecified
[2017-02-04] MEDS: THIOTHIXENE 5 MG CAP PO SCH ×2 (11:53→21:00)
[2017-02-04] MEDS: hydrOXYzine HCL 25 MG TAB PO PRN ×2 (11:54→21:02)
[2017-02-04] MEDS: THIOTHIXENE 5 MG CAP PO PRN (18:06)
[2017-02-04] MEDS: DESMOPRESSIN ACETATE 0.1 MG TAB PO SCH (20:58)
[2017-02-04] MEDS: ATORVASTATIN 10 MG TAB PO SCH (20:59)
[2017-02-04] MEDS: MIRTAZAPINE SOLTAB 15 MG PO SCH (21:00)
[2017-02-04] MEDS: MONTELUKAST SOD 10 MG TAB PO SCH (21:00)
[2017-02-05 06:54] VITALS: BP_SYST 114; BP_SYST 117; BP_DIAS 73; BP_DIAS 77; PULSE 71; PULSE 93; TEMP 36.9
[2017-02-05] MEDS: LEVOTHYROXINE 125 MCG TAB PO SCH (08:37)
[2017-02-05] MEDS: METFORMIN HCL 500 MG TAB PO SCH (08:37)
[2017-02-05] MEDS: CHOLECALCIFEROL 1000 INTER.UNIT TAB PO SCH (08:37)
[2017-02-05] MEDS: ESCITALOPRAM OXALATE 20 MG TAB PO SCH (08:37)
[2017-02-05] MEDS: LOSARTAN POTASSIUM 50 MG TAB PO SCH (08:37)
[2017-02-05] MEDS: ARIPIprazole TAB 15 MG TAB PO SCH (08:37)
[2017-02-05] MEDS: SULFAMETHOXAZOLE/TRIMETHOPRIM DS 800/160MG TAB PO SCH (08:37)
[2017-02-05] MEDS: MULTIVITAMIN TAB PO SCH (08:37)
[2017-02-05] MEDS: ESTRADIOL 1 MG TAB PO SCH (08:37)
[2017-02-05] MEDS ORDERED: SULF-183 PO (09:17)
--- NOTE | 2017-02-05 09:24 | Discharge Instructions ---
Discharge Information Report Includes Report will include the: Discharge Instructions & Summary Admission Admission Date / Time: Jan 29, 2017 at 22:24 Reason for Admission: Schizoffective Dis,Bipolar Type With Suicidality Discharge Discharge Diagnosis / Problem: Schizoaffective disorder, depressed type, depressed, severe Condition at Discharge: Poor Discharge Goals Goal(s): Decrease discomfort, Improve disease control, Prevent Disease Progression Activity Recommendations Activity Limitations: resume your previous activity . Instructions / Follow-Up Instructions / Follow-Up . SPECIAL CARE INSTRUCTIONS: 1. Follow through with your scheduled aftercare appointments. If unable to keep an appointment, please call to reschedule. 2. Take your medication only as prescribed. Medication should not be changed or stopped without the approval of your doctor. In the event of worsening symptoms or concerns about side effects, contact your doctor immediately. 3. Utilize new healthy coping skills, anger management skills, and stress management skills learned during your hospitalization. Journal feelings and process them with a support person. Identify stressors or situations that may result in relapse, deterioration or inappropriate behaviors and develop a plan to deal with those issues. 4. If your coping skills are ineffective and you are in crisis, contact your outpatient providers for direction. If unable to reach your providers, please call the CAN HELP LINE AT or go to the closest Emergency Room. 5. Avoid alcohol and un-prescribed drugs. 6. You have been provided with the Mental Health Advance Directives Pamphlet for your review. AFTERCARE APPOINTMENTS: * Please call your insurance company prior to your scheduled appointment to confirm your aftercare providers are covered. Take your insurance information to your appointments. . Discharge / Aftercare Planning Primary Care Physician: Name: Dr Tam Psychiatrist: Name: Kassandra VALERIO Date of Appointment: Feb 05, 2017 Time of Appointment: 3:00pm Therapist: Name Of Therapist: Lamar Miller Date of Appointment: Feb 12, 2017 Time of Appointment: 11:00am Design Supervisor: Name: Ramiro Santo . Follow-Up Care Plan for Follow-Up Care: Patient being transferred to [facility] for ECT Current Hospital Diet Patient's current hospital diet: Regular Diet Discharge Diet Recommended Diet: Regular Diet Procedures Procedures Performed: No Pending Studies Pending Studies at Discharge: No Medical Emergencies . Who to Call and When: Medical Emergencies: For questions or emergencies related to your hospital stay, please contact the Inpatient Behavioral Health Unit at [phone]. A collection systems worker is on-call 23/12 for the Behavioral Health Unit for emergencies At any time you feel your situation is an emergency, you may also call 911 immediately. . Non-Emergent Contact Non-Emergency issues call your: Psychiatrist Advance Directives Existing Advance Directive: No Do You Have an Existing Mental: No Existing Living Will: No Existing Power of Engineer System Administrator: No Advance Directives Info Given: To Pt/S.O. Advance Directives Reason: Declines as Mental Health Visit. Discharge Summary Admission HPI Per the Admitting provider: Leisa is a 46 yo female well known to our unit for a diagnosis of schizoaffective disorder, depressed type. She had experienced a period of relative stability for a number of years on Latuda, however she experienced the sudden of her mother in June 2016 and since then has been experiencing severe depression and an increase in auditory hallucinations. She specifically hears her grandfather's voice telling her to harm herself. She was last on our mental health unit in November of this year. At that time her Lamictal was increased and her Latuda was switched to Abilify in hopes of targeting the depression. She experienced only minimal improvement during the hospitalization. Her father, who currently lives in [place], came to [place] to be of support during her last hospitalization and the patient asked to be discharged so that she could spend time with him. She felt that she was able to safely go home and she was also established with [facility] for medication management. She has a very large support system, attends skills 1-1/2 days a week, has a supply specialist, mobile psych therapy worker, individual therapist in addition to myself. Her father last one week after the patient's discharge and since then the patient has been consistently depressed and making multiple phone calls per week to our office to report the degree of her depression. Each call she has insisted that she has not been depressed but the calls a "coming more frequently and with more distress, therefore the decision was made to rehospitalize. Today she continues to report her mood is severely depressed. She is having suicidal thoughts, but denies that she would act on them here in the hospital. She continues to report her grandfather's voice telling her to hurt herself but she has not acted on this. She has a history of scratching her forearms with her fingernails but there are no wounds currently. She is distressed about the prolonged nature of her depression that has been poorly responsive to medications. We had talked in the outpatient office about pursuing electroconvulsive therapy and at this time she is willing to proceed with those referrals she reports high anxiety about her condition and says she is recently been experiencing feelings of emptiness, and feeling alone especially when she is with people. At the patient's request I phone her brother Shon, , who is currently with her father in [place]. He is also a nurse practitioner in psychiatry. I inform of them of my assessment and recommendations to pursue ECT and they are both in support of this if this is what Leisa wants. Leisa' s father has found a copy of her report from Dr. Pion from the early in which he did a specific test to look at her brain waves and father generally describes that there was some impairment into different areas of her brain, one that he was concerned was a lesion at her left occipital area. He had questions about whether this would impair the effectiveness of ECT. I explained the process of making referrals and that each facility would ask for its own preadmission testing. I explained that I would include this information in the event that they wished for Leisa to have brain imaging. Hospital Course (1) Schizoaffective disorder, depressive type 01/30 - Recommend ECT patient is agreeable and will make referrals to multiple facilities - Will continue current medication regimen -Every 15 minute checks for safety -Reality orientation -Coordinate with current outpatient providers - encourage participation in group and individual counseling - Coordinate with family - last FLP and FBS performed 12/19/16 and WNL 01/31 - Continue ECT referrals - Increase Navane prn to BID 02/01 --tentative acceptance to [facility] for ECT on 02/05, begin klonopin and lamictal tapers 02/02--risks/benefits/alternatives reviewed re: ECT with patient and supply specialist. Discussion included but was not limited to risks of cognitive impairment/memory loss from repeated anesthesia and reviewed ongoing plan for Klonopin taper to 0.25 mg BID 02/03 with last dose am of 02/04. Will receive 1 more dose of Lamictal 50 mg 02/03. 02/04 - Await word from [facility] re: ECT - Spoke with patient's father today. He would like to be notified when we have more definitive news. (2) UTI (urinary tract infection) 01/30 -UA positive for bacteria, await final culture and sensitivity 02/01--culture grew Klebsiella, resistant to nitrofurantoin, will use Bactrum DS as uncomplicated, drug allergy list reviewed. (3) Diabetes mellitus type 2 01/30 - Continue home medications -Monitor blood sugars daily -Encourage activity and appropriate diet selection (4) Hypothyroidism 01/30 - Continue home dose of levothyroxine -TSH within normal limits (5) Hypertension 01/30 - Continue home medications - Monitor BP (6) Asthma 01/30 - continue home medications (7) Dyslipidemia 01/30 - Continue home medications - Last FLP done 12/19/16 and WNL Risk Factors Assessment : Yes /single/: Yes Higher / Fall in social status: No Health problems: Yes Mental Health Diagnoses: Yes Substance use disorders: No Previous attempt: Yes Previous psychiatric stay: Yes Hopelessness: Yes Smoker: No Protective Factors Assessment Alevism beliefs: Yes : No Responsible for young children: No Employed: Yes Stable relationships: Yes Supportive family: Yes Good rapport with provider: Yes Day of Discharge Assessment COURSE OF HOSPITALIZATION: The patient has been on our unit for 7 days. She was admitted with severe depression, suicidality and command hallucinations. She has been in acute deterioration since June when her mother suddenly. She has had multiple medication adjustments without robust response and so the decision was made to recommend ECT. Multiple referrals were placed and she was accepted at [facility] in [place] for transfer today. She was tapered off of Lamictal and Klonopin over the last weekend in preparation for the procedures. Her father and her brother has been in close contact. Her brother will be coming up to be with her on Friday when her first appointment is scheduled. Her father will be coming to town to be with her when she is discharged from [facility]. She is reasonably anxious about the procedure but is ready to be transferred today saying that she does not want to suffer with his severe depression any longer. DAY OF DISCHARGE ASSESSMENT: The patient remains depressed. She is anxious about proceeding but is able to smile, and is hopeful that the ECT will be fruitful. Today she is casually and appropriately dressed and groomed. Eye contact is good. She ambulates with a cane and demonstrates upper extremity tremors, right greater than left which have been long-standing. Speech is of normal rate volume and tone. Thoughts are organized, goal directed. She continues to report command hallucinations of her grandfather's voice telling her to harm herself. Her recent and remote memory are intact per conversation. Intelligence is estimated to be average. Insight and judgment remain limited. She is safe to be transported by ambulance today. Laboratory Test 01/29/17 19:25 01/29/17 21:15 02/04/17 07:56 02/05/17 08:32 Urine Color YELLOW Urine Appearance CLEAR Urine pH 5.0 Urine Specific [place] 1.015 Urine Protein NEG Urine Glucose (UA) NEG Urine Ketones NEG Urine Occult Blood NEG Urine Nitrite NEG Urine Bilirubin NEG Urine Urobilinogen NEG Urine Leukocyte Esterase MODERATE Urine WBC (Auto) 10-30 Urine RBC (Auto) 0-4 Urine Hyaline Casts (Auto) 1-5 Urine Epithelial Cells (Auto) 20-30 Urine Bacteria (Auto) 4+ Urine Opiates Screen NEG Urine Methadone, Qualitative NEG Urine Barbiturates NEG Urine Phencyclidine (PCP) Level NEG Ur Amphetamine/Methamphetamine NEG MDMA (Ecstasy) Screen NEG Urine Benzodiazepines Screen NEG Urine Cocaine Metabolite NEG Urine Marijuana (THC) NEG White Blood Count 9.23 Red Blood Count 4.34 Hemoglobin 11.9 Hematocrit 35.4 Mean Corpuscular Volume 81.6 Mean Corpuscular Hemoglobin 27.4 Mean Corpuscular Hemoglobin Concent 33.6 Platelet Count 230 Mean Platelet Volume 8.8 Neutrophils (%) (Auto) 59.2 Lymphocytes (%) (Auto) 34.1 Monocytes (%) (Auto) 6.4 Eosinophils (%) (Auto) 0.0 Basophils (%) (Auto) 0.1 Neutrophils # (Auto) 5.46 Lymphocytes # (Auto) 3.15 Monocytes # (Auto) 0.59 Eosinophils # (Auto) 0.00 Basophils # (Auto) 0.01 RDW Standard Deviation 40.2 RDW Coefficient of Variation 13.3 Immature Granulocyte % (Auto) 0.2 Immature Granulocyte # (Auto) 0.02 Sodium Level 140 Potassium Level 4.1 Chloride Level 105 Carbon Dioxide Level 30 Anion Gap 5.0 Blood Urea Nitrogen 14 Creatinine 0.53 Est Creatinine Clear Calc Drug Dose 149.5 Estimated GFR () 130.1 Estimated GFR (Non- 112.3 BUN/Creatinine Ratio 25.7 Random Glucose 77 Calcium Level 8.8 Total Bilirubin 0.1 Aspartate Amino Transferase (AST) 13 Alanine Aminotransferase (ALT) 17 Alkaline Phosphatase 56 Total Protein 6.3 Albumin 3.3 Globulin 3.0 Albumin/Globulin Ratio 1.1 Thyroid Stimulating Hormone (TSH) 1.520 Salicylates Level < 1.7 Acetaminophen Level < 2 Ethyl Alcohol mg/dL < 3.0 POC Glucose 88 91 Total Time Total Time Spent (min): Greater than 30 minutes Total Time Included: examination of the patient, discharge planning, medication reconciliation, communication with other providers Tobacco Cessation at Discharge Smoking Status: Former Smoker FDA approved Prescription: non-smoker Problem Qualifiers (1) UTI (urinary tract infection): Indwelling urinary catheter type: unspecified
[2017-02-05] MEDS: THIOTHIXENE 5 MG CAP PO SCH (12:36)
[2017-02-05 12:40] VITALS: BP 114/73; PULSE 71; TEMP 36.9; O2SAT 94
[2017-02-05] MEDS: hydrOXYzine HCL 25 MG TAB PO PRN (12:52)
== END 2017-02-05 12:55 | disposition short-term general hospital (02) | DRG 885 ==
LOC: C.EDB 19:14 → C.MHU 22:24
PROVIDERS: ADMIT Psychiatry & Neurology Child & Adolescent Psychiatry; ATTEND Psychiatry & Neurology Psychiatry
DX: F25.1 Schizoaffective disorder, depressive type (principal); R45.851 Suicidal ideations; N39.0 Urinary tract infection, site not specified; Z68.41 Body mass index [BMI] 40.0-44.9, adult; B96.1 Klebsiella pneumoniae [K. pneumoniae] as the cause of diseases classified elsewhere; Z16.29 Resistance to other single specified antibiotic; J45.909 Unspecified asthma, uncomplicated; E11.9 Type 2 diabetes mellitus without complications; I10 Essential (primary) hypertension; E78.5 Hyperlipidemia, unspecified; E03.9 Hypothyroidism, unspecified; E66.9 Obesity, unspecified; Z79.899 Other long term (current) drug therapy; Z79.84 Long term (current) use of oral hypoglycemic drugs; Z87.891 Personal history of nicotine dependence; Z82.49 Family history of ischemic heart disease and other diseases of the circulatory system; Z84.1 Family history of disorders of kidney and ureter; Z81.8 Family history of other mental and behavioral disorders; Z81.1 Family history of alcohol abuse and dependence

== ENCOUNTER → 2017-03-28 | Outpatient (CLI) | payer OTHER ==
[~2017-03-28] MED LIST changes: -ABL10 PO; +ARIP30TA3 PO; -CLON0.5T3 PO; +ESCI1TAB10 PO; -LAMO100T16 PO; -LEVO125T4 PO; +LEVO125T5 PO; -LXP20 PO; +MIRT30TA2 PO; -RMR15 PO; +SULF-183 PO
--- NOTE | 2017-03-31 14:55 | MAMMOGRAPHY REPORT ---
BILATERAL DIGITAL SCREENING MAMMOGRAM WITH CAD: 03/28/2017 CLINICAL HISTORY: Routine screening. TECHNIQUE: Current study was also evaluated with a Computer Aided Detection (CAD) system. Bilateral CC and MLO views were obtained. COMPARISON: Comparison is made to exams dated: 12/28/2015 mammogram and 12/08/2009 mammogram - [facility]. BREAST COMPOSITION: There are scattered areas of fibroglandular density in both breasts. FINDINGS: There are calcifications within bilateral upper outer quadrants, for which spot magnificat ion views are recommended for further evaluation. The remainder of both breasts are stable compared to prior exams, without suspicious masses, calcific ations, or areas of architectural distortion noted. Other scattered benign-appearing calcifications are stable. IMPRESSION: ACR BI-RADS CATEGORY 0: INCOMPLETE EVALUATION: NEED ADDITIONAL IMAGING EVALUATION Bilateral upper outer quadrant calcifications, for which additional imaging evaluation is recommended . The patient will be called to schedule an appointment. Approximately 10% of breast cancers are not detected with mammography. A negative mammographic report should not delay biopsy if a clinically suggestive mass is present. Angelic Cardenas M.D. ah/:03/28/2017 17:10:14 Attending Technologist: Christelle Cid, [facility] Laboratory Apparatus Glass Blower: Sandee RICHARD(R)(M), [facility] letter sent: Addl Imaging 0 BI-RADS Code: ACR BI-RADS Category 0: Incomplete Evaluation: Need Additional Imaging Evaluation
== END | disposition home or self-care (01) ==
LOC: C.MAMM 13:59
PROVIDERS: ATTEND Obstetrics & Gynecology
DX: Z12.31 Encounter for screening mammogram for malignant neoplasm of breast (principal); R92.1 Mammographic calcification found on diagnostic imaging of breast

== ENCOUNTER → 2017-04-14 | Outpatient (CLI) | payer OTHER ==
--- NOTE | 2017-04-14 15:03 | MAMMOGRAPHY REPORT ---
BILATERAL DIGITAL DIAGNOSTIC MAMMOGRAM: 04/14/2017 CLINICAL HISTORY: 46-year-old woman called back from screening mammography for bilateral breast micro calcifications. Family history of breast cancer = mother. TECHNIQUE: Bilateral spot magnification CC and ML views of the breasts were obtained. COMPARISON: Comparison is made to exams dated: 03/28/2017 mammogram, 12/28/2015 mammogram, 12/08/2009 m ammogram, and 12/25/1999 mammogram - [facility]. BREAST COMPOSITION: There are scattered areas of fibroglandular density in both breasts. FINDINGS: There are regionally distributed faint grouped and clustered microcalcifications in the ri ght upper outer quadrant, and to a lesser degree the left upper outer quadrant. On the spot magnific ation MLO views, some of the calcifications appear to demonstrate layering suggesting benign milk of calcium. However, when comparing to prior available mammograms, many of the microcalcifications are new dating back to 12/08/2009 and therefore they remain indeterminate. Definitive characterization o f sampling of one of the clusters in each breast is recommended. No obvious associated mass, archite ctural distortion or asymmetry. There are numerous benign rim calcifications also seen in the breast s. IMPRESSION: ACR BI-RADS CATEGORY 4: SUSPICIOUS 1. Bilateral breast stereotactic guided biopsy is recommended for a compliance representative cluster microcalc ifications within the regionally distributed calcifications in each upper outer quadrant. These results and recommendations were discussed with the patient at the time of the exam. She tenta tively scheduled the stereotactic biopsies prior to leaving our department. Approximately 10% of breast cancers are not detected with mammography. A negative mammographic report should not delay biopsy if a clinically suggestive mass is present. Yoselyn Magdaleno M.D. ay/:04/14/2017 10:03:21 Attending Technologist: Sandee Kaye RT(R)(M), [facility] Compensation Adjuster: Joanna Dove RT(R)(M), [facility] letter sent: Abnormal 4/5 BI-RADS Code: ACR BI-RADS Category 4: Suspicious
== END | disposition home or self-care (01) ==
LOC: C.MAMM 09:07
PROVIDERS: ATTEND Obstetrics & Gynecology
DX: Z12.31 Encounter for screening mammogram for malignant neoplasm of breast (principal); R92.0 Mammographic microcalcification found on diagnostic imaging of breast

== ENCOUNTER → 2017-04-29 | Outpatient (CLI) | payer OTHER ==
--- NOTE | 2017-04-29 13:39 | Discharge Instructions ---
Discharge Instructions Procedure Procedure Date: Apr 29, 2017. Reason for visit: Bilateral Calcs. Discharge Discharge Date: Apr 29, 2017. Discharge Diagnosis: post bilateral breast stereotactic guided biopsies Instructions Activity Recommendations: Additional Limitations (see below) Return to School/Work: no limitations Recommended Home Diet: No Limitations Provider Instructions: ACTIVITY RECOMMENDATIONS: * No lifting, pushing, pulling or exercising the affected side for three days. RETURN TO SCHOOL/WORK: * You may return to work/school after the procedure, but do not perform any strenuous activities for 24 to 48 hours. MEDICATIONS: * Tylenol (two 325 mg) every four to six hours if needed for mild pain (if not allergic to Tylenol). DIET: * Resume previous diet. SPECIAL CARE INSTRUCTIONS: * Keep biopsy site dry for 24 hours. May shower after 24 hours, but do not soak (bathe) incision. * May remove Tegaderm (plastic patch) tomorrow AFTER showering. * Leave the steri-strips on for one week. Allow the steri-strips to fall off by themselves. If not off after one week, you may remove them. You may place a Bandaid crosswise over the strips, if desired. * Apply ice 10 minutes on and 10 minutes off as needed. * Wear a bra at bedtime to sleep more comfortably for 2-3 days. * Your referring physician should have the results after approximately 5 to 7 business days. * Call for unusual bleeding, fever, drainage, etc or if you have any questions call [phone] during normal business hours or after hours call Dr Magdaleno, . FOLLOW UP VISIT: Follow-up with Referring Physician as scheduled. Allergies Coded Allergies: Chlorpromazine (Verified Allergy, Mild, LIGHTHEADED SHUFFLING GAIT, ) Aspirin (Verified Allergy, Unknown, 12/17/16) Doxycycline (Unverified Allergy, Unknown, HEARING VOICES, 12/17/16) Levofloxacin (Verified Allergy, Unknown, ?ALLERGIC TO LEVAQUIN?, 12/17/16) NSAIDs (Verified Allergy, Unknown, ., 12/17/16) Penicillins (Verified Allergy, Unknown, RASH, 12/17/16) Prednisone (Verified Allergy, Unknown, ., 12/17/16) Quinine (Verified Allergy, Unknown, 12/17/16) Bob Velazco Recommendations: Call your doctor if: * Temperature above 101 degrees * Pain not relieved by pain medicine ordered * There is increased drainage or redness from any incision * You have any unanswered questions or concerns. Your Doctors Instructions noted above were prepared by provider Yoselyn Magdaleno. Patient Signature Section: Patient Instructions Signature Page Leisa Cross Patient (or Guardian) Signature/Date: I have read and understand the instructions given to me by my caregivers. Caregiver/RN/Doctor Signature/Date: The above-named patient and/or guardian has received patient instructions on this date. + Original Patient Signature Page (only) stays with chart. Please make copy for patient.
--- NOTE | 2017-04-29 15:09 | MAMMOGRAPHY REPORT ---
BILATERAL DIGITAL DIAGNOSTIC MAMMOGRAM: 04/29/2017 CLINICAL HISTORY: Status post bilateral breast stereotactic guided biopsy of clustered punctate regio nal microcalcifications most numerous in each upper outer quadrant. Please refer to the report from right breast stereotactic guided biopsy performed at the same time fo r full detail. IMPRESSION: POST PROCEDURE IMAGING FOR MARKER PLACEMENT Please refer to the report from right breast stereotactic guided biopsy performed at the same time fo r full detail. Approximately 10% of breast cancers are not detected with mammography. A negative mammographic report should not delay biopsy if a clinically suggestive mass is present. Yoselyn Magdaleno M.D. ay/:04/29/2017 13:40:26 Attending Technologist: Joanna Dove RT(R)(M), [facility] Process Improvement Engineer: Sandee Kaye RT(R)(M), [facility] BI-RADS Code: Post Procedure Imaging For Marker Placement
--- NOTE | 2017-04-30 13:44 | MAMMOGRAPHY REPORT ---
STEREOTACTIC GUIDED BIOPSY: 04/29/2017 CLINICAL HISTORY: Indeterminate clusters of microcalcifications most numerous in each upper outer emily drant. Patient presents for bilateral stereotactic guided biopsy. Please refer to the report from right breast stereotactic biopsy performed at the same time for full detail. IMPRESSION: STEREOTACTIC GUIDED BIOPSY Please refer to the report from right breast stereotactic biopsy performed at the same time for full detail. Yoselyn Magdaleno M.D. ay/:04/29/2017 14:58:08 Attending Technologist: Joanna Dove RT(R)(M), [facility] Ed Case Manager: Sandee Kaye RT(R)(M), [facility]
--- NOTE | 2017-04-30 13:44 | MAMMOGRAPHY REPORT ---
STEREOTACTIC GUIDED BIOPSY RIGHT BREAST: 04/29/2017 CLINICAL HISTORY: 46-year-old woman presents for stereotactic guided biopsy of clustered microcalcifi cations that are regionally distributed in each upper outer quadrant. COMPARISON: Comparison is made to exams dated: 04/14/2017 mammogram, 03/28/2017 mammogram, 12/28/2015 mammogram, 12/08/2009 mammogram, and 12/25/1999 mammogram - [facility]. PATIENT CONSENT: After explaining the risks, benefits and alternatives of the procedure to the patien t, informed consent was obtained both verbally and in writing. Specific risks include: Bleeding, inf ection, puncture of adjacent structure, pain, nontarget biopsy, sampling error, metal allergy and med ication reaction. PROCEDURE DESCRIPTION: A time-out was performed and both breasts were confirmed as sites for stereota ctic guided biopsy. First the calcifications in the right breast were targeted. The patient was terrell lorraine prone on the stereotactic biopsy table and the breast was placed in CC from above compression. A director of services image was obtained that demonstrated the clustered microcalcifications in question. They are a menable to sterotactic biopsy. Then +15 and -15 stereo pair images were obtained. The calcification s were targeted utilizing the coordinates obtained by the computer. The skin was prepped with Betadi ne. 1% Lidocaine with and without epinipherine was administered as local anesthesia. A small skin inc ision was made. Through the incision, the needle was inserted to the depth determined by the compute r. 6 samples were obtained using a Inspro Eviva 9-gauge vacuum-assisted biopsy device. The speci men radiograph demonstrated several no definite microcalcifications, therefore, 6 additional core bio psy samples were obtained which demonstrate a cluster of faint punctate microcalcifications. Then a metallic biopsy marker was placed at the site. There was no immediate complication. Hemostasis was a chieved after several minutes of manual compression. The samples were sent to pathology in two appro priately labeled containers, "with calcifications" and "without calcifications". All of the samples w ere obtained from the same single biopsy site. Then the calcifications in the left upper outer quadrant were targeted for biopsy. With the patient remaining prone on the biopsy table, the left breast was placed in CC from above compression. A director of services image was obtained that demonstrated the clustered microcalcifications in question. They are amenab le to sterotactic biopsy. Then +15 and -15 stereo pair images were obtained. The calcifications wer e targeted utilizing the coordinates obtained by the computer. The skin was prepped with Betadine. 1 % Lidocaine with and without epinipherine was administered as local anesthesia. A small skin incision was made. Through the incision, the needle was inserted to the depth determined by the computer. 6 samples were obtained using a Dreamiseiva 9-gauge vacuum-assisted biopsy device. The specimen r adiograph demonstrated several no definite microcalcifications, therefore, 6 additional core biopsy s amples were obtained which demonstrate a cluster of faint punctate microcalcifications. Then a metal lic biopsy marker was placed at the site. There was no immediate complication. Hemostasis was achiev ed after several minutes of manual compression. The samples were sent to pathology in two appropriat lanre labeled containers, "with calcifications" and "without calcifications". All of the samples were o btained from the same single biopsy site. Postprocedure CC and ML views of both breasts were obtained. There are new dumbbell-shaped metallic biopsy marker is in each upper outer quadrant, denoting the site of the stereotactic guided biopsies. No significant postbiopsy hematoma is identified in either breast. IMPRESSION: STEREOTACTIC GUIDED BIOPSY Status post bilateral stereotactic guided biopsies of clustered microcalcifications that are regional ly distributed in each upper outer quadrant, with biopsy marker is placed at each site of biopsy. The patient will receive notification of the biopsy results from her referring physician. Yoselyn Magdaleno M.D. ay/:04/29/2017 15:01:41 Attending Technologist: Joanna RICHARD(R)(Mino), [facility] Pasting Inspector: Sandee ARAIZAR)(Mino), [facility]
== END | disposition home or self-care (01) ==
LOC: C.MAMM 12:38
PROVIDERS: ATTEND Obstetrics & Gynecology
DX: R92.0 Mammographic microcalcification found on diagnostic imaging of breast (principal)

== ENCOUNTER → 2017-05-13 | Outpatient (CLI) | payer OTHER ==
[2017-05-13 15:39] LABS: URINE APPEARANCE CLEAR (CLEAR); URINE BILIRUBIN NEG (NEG); URINE COLOR YELLOW; URINE NITRITE NEG (NEG); URINE SPECIFIC GRAVITY 1.008 (1.000-1.030); UROBILINOGEN NEG (NEG); ZZUR CULT IF INDIC CLEAN CATCH YES
[2017-05-13 15:50] LABS: MANUAL MICROSCOPIC REQUIRED? NO; REVIEW REQ? YES
[2017-05-13 16:42] LABS: URINE EPITHELIAL CELL AUTO 0-5 /lpf (0-5)
== END | disposition home or self-care (01) ==
LOC: C.LAB1850 14:42
PROVIDERS: ATTEND Physician Assistant
DX: R39.9 Unspecified symptoms and signs involving the genitourinary system (principal)

== ENCOUNTER 2017-06-18 12:00 | Inpatient (IN) | payer OTHER ==
[~2017-06-18] VITALS: Ht 165.1 cm; Wt 108.0 kg
[~2017-06-18 12:00] MED LIST changes: -SULF-183 PO; +SULF-302 PO
[2017-06-18] MEDS ORDERED: CLON0.5T3 PO ×2 (13:04→14:56)
[2017-06-18] MEDS ORDERED: LAMO150T PO (13:06)
[2017-06-18 13:25] LABS: HEMATOCRIT 37.2 % (37-47); HEMOGLOBIN 12.8 g/dL (12.0-16.0); MEAN CELL VOLUME 80.7 fL (80-100); MEAN CORPUSCULAR HEMOGLOBIN 27.8 pg (25-34); MEAN CORPUSCULAR HGB CONC 34.4 g/dl (32-36); MEAN PLATELET VOLUME 8.7 fL (7.4-10.4); PLATELET COUNT 211 K/uL (130-400); RED CELL DISTRIBUTION WIDTH CV 13.7 % (11.5-14.5); RED CELL DISTRIBUTION WIDTH SD 39.9 fL (36.4-46.3); WHITE BLOOD COUNT 12.31 K/uL (4.8-10.8)
[2017-06-18 13:46] LABS: ALBUMIN 3.9 gm/dl (3.4-5.0); CALCIUM 8.7 mg/dl (8.5-10.1); CREATININE 0.57 mg/dl (0.60-1.20); POTASSIUM 3.8 mmol/L (3.5-5.1)
[2017-06-18] MEDS ORDERED: THIOTHIXENE 5 MG CAP PO STA (13:52)
[2017-06-18] MEDS ORDERED: CLONAZEPAM 0.5 MG TAB PO STA (13:52)
[2017-06-18 13:58] LABS: TOTAL PROTEIN 7.1 gm/dl (6.4-8.2)
[2017-06-18 14:02] VITALS: O2SAT 95
[2017-06-18] MEDS ORDERED: ATOR-22 PO (14:56)
[2017-06-18] MEDS ORDERED: hydrOXYzine HCL 25 MG TAB PO PRN ×2 (15:15)
[2017-06-18] MEDS ORDERED: SODIUM CHLORIDE 0.65% NA SOLN 45 ML (OCEAN) PRN (15:15)
[2017-06-18] MEDS ORDERED: MAGNESIUM HYDROXIDE SUSP 30 ML UDC PO PRN (15:15)
[2017-06-18] MEDS ORDERED: ACETAMINOPHEN 325 MG TAB PO PRN (15:15)
[2017-06-18] MEDS ORDERED: BISMUTH SUBSALICYLATE PER ML OMNICELL CHARGE PO PRN (15:15)
[2017-06-18] MEDS ORDERED: ALUMINUM/MAGNESIUM SUSP 30 ML UDC PO PRN (15:15)
[2017-06-18 15:40] VITALS: BP 183/102; PULSE 78; TEMP 37.1; BMI 39.6
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
--- NOTE | 2017-06-18 16:57 | EMERGENCY ROOM VISIT NOTE ---
History Report prepared by Caty: Noe Baez Under the Supervision of: Dr. Crescencio Dos Santos M.D. First contact with patient: 12:18 Chief Complaint: MENTAL HEALTH EVALUATION Stated Complaint: MENTAL HEALTH EVAL History of Present Illness The patient is a 46 year old female who presents to the Emergency Room with complaints of worsening anxiety beginning a week ago. She also complains of depression and auditory hallucinations. She denies suicidal or homicidal ideation. The patient states that she has had problems with depression ever since her mother last year. She states that she cries nearly every day. She saw her therapist and psychiatrist for her symptoms two days ago. The patient denies fevers, flu-like symptoms or pain. She denies any recent drug or alcohol use. She would like to be admitted to [address] [place] [address], but would not like to be transferred to the [facility]. Source of History: patient Onset: A week ago Position: other (global) Symptom Intensity: moderate Quality: other (anxiety) Timing: worsening Modifying Factors (Relieving): other (none) Associated Symptoms: No fevers Note: The patient denies flu-like symptoms or pain. She also complains of depression and auditory hallucinations. Review of Systems See HPI for pertinent positives & negatives. A total of 10 systems reviewed and were otherwise negative. Past Medical & Surgical Medical Problems: (1) Asthma (2) Asthma with status asthmaticus (3) Bacterial pneumonia (4) Class II obesity (5) Depression (6) Diabetes mellitus type 2 (7) Dyslipidemia (8) Hypertension (9) Hypothyroidism (10) Schizoaffective disorder, depressive type (11) Suicidal ideation (12) Type 2 diabetes mellitus (13) UTI (urinary tract infection) Family History FH: cancer FH: heart disease Hypertension Kidney disease Kidney stones Seizures Social History Smoking Status: Never Smoker Alcohol Use: none Drug Use: none Marital Status: single Housing Status: lives alone Occupation Status: disabled Current/Historical Medications Scheduled Aripiprazole (Abilify), 30 MG PO DAILY Atorvastatin (Lipitor), 1 TAB PO HS Clonazepam (Klonopin), 0.5 MG PO TID Desmopressin Acetate (Ddavp), 0.2 MG PO HS Escitalopram Oxalate (Lexapro), 20 MG PO DAILY Estradiol (Estradiol), 1 MG PO QAM Lamotrigine (Lamictal), 150 MG PO QAM Levothyroxine Sodium (Levothyroxine Sodium), 125 MCG PO QAM Losartan Potassium (Cozaar), 50 MG PO QAM Metformin Hcl (Glucophage), 1,000 MG PO BID Mirtazapine Soltab (Remeron Soltab), 30 MG PO HS Montelukast Sodium (Singulair), 10 MG PO HS Thiothixene (Navane), 10 MG PO BID Thiothixene (Navane), 20 MG PO HS Scheduled PRN Clonazepam (Klonopin), 0.5 MG PO DAILY PRN for Anxiety Allergies Coded Allergies: Chlorpromazine (Verified Allergy, Mild, LIGHTHEADED SHUFFLING GAIT, ) Aspirin (Verified Allergy, Unknown, 06/18/17) Doxycycline (Unverified Allergy, Unknown, HEARING VOICES, 06/18/17) Levofloxacin (Verified Allergy, Unknown, ?ALLERGIC TO LEVAQUIN?, 06/18/17) NSAIDs (Verified Allergy, Unknown, ., 06/18/17) Onion (Unverified Allergy, Unknown, VOMITING, 06/18/17) Penicillins (Verified Allergy, Unknown, RASH, 06/18/17) Prednisone (Verified Allergy, Unknown, ., 06/18/17) Quinine (Verified Allergy, Unknown, 06/18/17) Physical Exam Vital Signs Date Time Temp Pulse Resp B/P (MAP) Pulse Ox O2 Delivery O2 Flow Rate FiO2 06/18/17 14:02 81 183/102 95 06/18/17 12:01 37.1 91 18 185/102 97 Physical Exam Constitutional: Vital signs reviewed. Eyes: Pupils are equal round reactive to light. Conjunctiva are noninjected. ENT: Pharynx is clear without erythema or exudate. Mucous membranes are moist. Neck supple without meningeal signs. Respiratory: Clear to auscultation bilaterally. Breath sounds are equal bilaterally. Cardiovascular: Regular rate and rhythm. No rubs or gallops. GI: Soft, nondistended and nontender. Bowel sounds are present. Musculoskeletal: No peripheral edema. No lacerations to the wrists. Integumentary: No cyanosis. Neurological: The patient is awake and alert. No focal deficits. Psychiatric: Flat affect. Medical Decision & Procedures Laboratory Results 06/18/17 13:10 06/18/17 13:10 Test 06/18/17 12:29 06/18/17 12:45 06/18/17 13:10 Urine Test NEG (NEG) Urine Color YELLOW Urine Appearance CLEAR (CLEAR) Urine pH 5.5 (4.5-7.5) Urine Specific [place] 1.014 (1.000-1.030) Urine Protein NEG (NEG) Urine Glucose (UA) NEG (NEG) Urine Ketones NEG (NEG) Urine Occult Blood NEG (NEG) Urine Nitrite NEG (NEG) Urine Bilirubin NEG (NEG) Urine Urobilinogen NEG (NEG) Urine Leukocyte Esterase SMALL (NEG) Urine WBC (Auto) 1-5 /hpf (0-5) Urine RBC (Auto) 0-4 /hpf (0-4) Urine Hyaline Casts (Auto) 1-5 /lpf (0-5) Urine Epithelial Cells (Auto) 20-30 /lpf (0-5) Urine Bacteria (Auto) 3+ (NEG) Urine Opiates Screen NEG (NEG) Urine Methadone, Qualitative NEG (NEG) Urine Barbiturates NEG (NEG) Urine Phencyclidine (PCP) Level NEG (NEG) Ur Amphetamine/Methamphetamine NEG (NEG) MDMA (Ecstasy) Screen NEG (NEG) Urine Benzodiazepines Screen NEG (NEG) Urine Cocaine Metabolite NEG (NEG) Urine Marijuana (THC) NEG (NEG) Red Blood Count 4.61 M/uL (4.2-5.4) Mean Corpuscular Volume 80.7 fL (80-100) Mean Corpuscular Hemoglobin 27.8 pg (25-34) Mean Corpuscular Hemoglobin Concent 34.4 g/dl (32-36) RDW Standard Deviation 39.9 fL (36.4-46.3) RDW Coefficient of Variation 13.7 % (11.5-14.5) Mean Platelet Volume 8.7 fL (7.4-10.4) Anion Gap 7.0 mmol/L (3-11) Est Creatinine Clear Calc Drug Dose 147.5 ml/min Estimated GFR () 127.1 Estimated GFR (Non- 109.6 BUN/Creatinine Ratio 24.1 (10-20) Calcium Level 8.7 mg/dl (8.5-10.1) Total Bilirubin 0.3 mg/dl (0.2-1) Direct Bilirubin 0.1 mg/dl (0-0.2) Aspartate Amino Transf (AST/SGOT) 12 U/L (15-37) Alanine Aminotransferase (ALT/SGPT) 27 U/L (12-78) Alkaline Phosphatase 86 U/L (45-117) Total Protein 7.1 gm/dl (6.4-8.2) Albumin 3.9 gm/dl (3.4-5.0) Thyroid Stimulating Hormone (TSH) 0.771 uIu/ml (0.300-4.500) Salicylates Level < 1.7 mg/dl (2.8-20) Acetaminophen Level < 2 ug/ml (10-30) Ethyl Alcohol mg/dL < 3.0 mg/dl (0-3) Laboratory results as reviewed by me. Medications Administered Medications (Trade) Dose Ordered Sig/Christofer Route Start Time Stop Time Status Last Admin Dose Admin Clonazepam (Klonopin Tab) 0.5 mg NOW STAT PO 06/18/17 13:52 06/18/17 13:54 DC 06/18/17 14:01 0.5 MG Thiothixene (Navane Cap) 10 mg ONE STAT PO 06/18/17 13:52 06/18/17 13:54 DC 06/18/17 16:22 10 MG ED Course 1220: The patient was evaluated in room A8. A complete history and physical exam was performed. 1352: Ordered Navane Cap 10 mg PO, Klonopin Tab 0.5 mg PO. 1422: The patient will be evaluated by [address] [place] [address] for further management. Medical Decision This is a 46-year-old female who presents for mental health evaluation. I did perform a limited focused review of portions of the patient's old chart on the electronic medical record. The patient was admitted to [address] [place] [address] January 2017. She has a history of schizoaffective disorder with severe depression and hallucinations. Referral was made for ECT. I did evaluate the patient as noted above. I did order and review the patient' s blood work as noted in the electronic medical record. I did treat patient with Klonopin and Navane. I did have mental health evaluate the patient. The patient was accepted to [facility] voluntarily for intensive inpatient psychiatric care. Medication Reconcilliation Current Medication List: was personally reviewed by me Blood Pressure Screening Patient's blood pressure: Elevated blood pressure Blood pressure disposition: Referred to PCP Impression Primary Impression: Mood disorder Scribe Attestation The scribe's documentation has been prepared under my direct and personally reviewed by me in its entirety. I confirm that the note above accurately reflects all work, treatment, procedures, and medical decision making performed by me. Departure Information Dispostion [facility] (-[facility]) Referrals No Doctor, Assigned (PCP) Patient Instructions [facility]
[2017-06-18] MEDS: METFORMIN HCL 500 MG TAB PO SCH (17:32)
[2017-06-18 17:42] VITALS: BP 136/84; PULSE 79
[2017-06-18] MEDS: DESMOPRESSIN ACETATE 0.1 MG TAB PO SCH (22:03)
[2017-06-18] MEDS: ATORVASTATIN 20 MG TAB PO SCH (22:05)
[2017-06-18] MEDS: CLONAZEPAM 0.5 MG TAB PO SCH (22:05)
[2017-06-18] MEDS: THIOTHIXENE 5 MG CAP PO SCH (22:05)
[2017-06-18] MEDS: MIRTAZAPINE TAB 15 MG TAB PO SCH (22:06)
[2017-06-18] MEDS: MONTELUKAST SOD 10 MG TAB PO SCH (22:06)
[2017-06-19 06:42] VITALS: BP_SYST 128; BP_SYST 140; BP_DIAS 74; BP_DIAS 77; PULSE 69; PULSE 71; TEMP 37.1
[2017-06-19] MEDS: LEVOTHYROXINE 125 MCG TAB PO SCH (08:45)
[2017-06-19] MEDS: ESTRADIOL 1 MG TAB PO SCH (08:46)
[2017-06-19] MEDS: LOSARTAN POTASSIUM 50 MG TAB PO SCH (08:46)
[2017-06-19] MEDS: ARIPIprazole TAB 10 MG TAB PO SCH (08:46)
[2017-06-19] MEDS: METFORMIN HCL 500 MG TAB PO SCH ×2 (08:47→17:13)
[2017-06-19] MEDS: CLONAZEPAM 0.5 MG TAB PO SCH ×3 (08:47→21:22)
[2017-06-19] MEDS: ESCITALOPRAM OXALATE 20 MG TAB PO SCH (08:47)
[2017-06-19] MEDS ORDERED: ARIPIprazole TAB 15 MG TAB PO SCH (09:00)
[2017-06-19] MEDS ORDERED: THIOTHIXENE 5 MG CAP PO SCH (09:00)
[2017-06-19] MEDS: THIOTHIXENE 5 MG CAP PO SCH ×3 (12:14→21:23)
--- NOTE | 2017-06-19 12:24 | Psychiatric Progress Notes ---
Progress Note Date of Service Jun 19, 2017. Interval History Leisa Cross is a 46-year-old female admitted on Jun 18, 2017 at 14:59 with a history of schizoaffective disorder, depressed type. She was admitted on a 201 voluntary commitment due to increased command auditory hallucinations of her grandfather's voice telling her to harm herself as well as hearing calming words from her mother. Chief Complaint "I'm feeling depressed, anxious, and I still am hearing voices". Subjective Patient was seen & assessed interval progress reviewed with Nursing. Pt reports today that the command hallucinations of her grandfather's voice are continuing during her stay. She states she hears both her grandfather' s voice as well as calming words from her mother. Pt says her grandfather's voice is the only one telling her to harm herself. She reports several stressors to include the anniversary of her mother's , her father being in poor health, and her brothers currently not getting along with one another. Pt is hopeful about the possibility of starting TMS for her refractory depression and is prepared for medication changes that will allow for discontinuation of ineffective medications. At this time, patient has observed the most benefit from Navane, Lamictal, and Klonopin. She is unsure if Lexapro has been helpful and feels that Abilify has not been providing benefit. Pt's Abilify was decreased this morning to 20mg and she denies side effects or worsening of condition at this time. Pt reports the "best sleep I' ve had in a long time" last evening and denies change in appetite. Pt repeatedly states that she has no desire to harm herself and will not listen to the voices. She states if she were to hurt herself it would likely be by scratching, but she feels she would be able to inform staff before she would allow it to come to that point. Review of Systems Psych: denies symptoms other than stated above Constitutional: denied Cardiovascular: denied GI: denied Neurologic: denied Remainder of 10 body systems also reviewed and denied other than noted above. Sleep Information Total Hours of Sleep: 7.25 Meal Information Percent of Breakfast Consumed: 75 Percent of Dinner Consumed: 60 Mental Status Exam During interview pt is: alert and oriented, cooperative Appearance: appropriately dressed, disheveled, other (obese) Eye contact is: fair (starting) Motor behavior is: other (Walks with assistance from cane. Some mild tremor of lips and left hand noted, but do not appear to be distressing to the patient. ) Speech: normal in rate, rhythm & volume Affect: depressed, blunted Mood is: depressed, anxious Thought process: goal directed Thought content: reality based without delusions Suicidal thought are: present (persisting command auditory hallucinations to harm herself), Plan: present (voice of grandfather telling her to cut or overdose), Intent: denied (reports no desire to act on command auditory hallucinations) Homicidal thoughts are: denied Hallucinations: auditory (grandfather's voice, mother's voice at times which is more calming) Cognition: memory grossly intact, attention grossly intact, language grossly intact Intelligence estimated to be: average Insight: impaired Judgement: impaired Impression 46-year-old patient well known to the unit and followed closely by outpatient psychiatric TEODORO, Kassandra Hay. Pt receiving extensive outpatient services, but felt unsafe at home which led to admission. Due to plans to initiate TMS, plan is to taper doses of ineffective medications to minimize drug regimen prior to TMS trial. Pt reports most effective medications have been Remeron, Lamictal, Klonopin, and Navane. She has begun taper of Abilify and received decreased dose of 20mg this morning. Plan to discontinue over the next few days. Pt agreeable to recommendations by staff and is willing for discontinuation of Lexapro 20mg daily if felt necessary. Discussed with patient desire not to discontinue too many medications too quickly, and she is agreeable to this. Plan (1) Schizoaffective disorder, depressive type /17 - has been on numerous medications as an outpatient, with limited efficacy , and significant side effect concern, tardive dyskinesia and metabolic syndrome. Discussed her case with TEODORO Arce, and we will attempt to taper her off additional medications, while pursuing outpatient TMS. - Current psychotropic medications include lamotrigine 150 mg daily, mirtazapine 30 mg daily at bedtime, desmopressin 0.2 mg daily every other night , clonazepam 0.5 mg 3 times a day plus once daily when necessary, metformin 1000 mg twice a day, thiothixene 10 mg 4 times a day, aripiprazole 30 mg daily, and escitalopram 20 mg daily. The patient feels that mirtazapine is the most helpful medication, and also thinks she gets benefit from clonazepam, thiothixene and lamotrigine. She does not think that aripiprazole has been helpful, and is not sure if escitalopram is helpful. We will start by decreasing her aripiprazole 20 mg daily, with a goal to taper her off of it as long as she tolerates this well. - Every 15 minute checks for safety, encourage participation in unit groups and therapy, work on healthy coping skills and discharge safety plan. - Coordinate with outpatient providers, family meeting as appropriate. - Fasting lipid profile and glucose last checked 01/15/2017, and were within normal limits. 06/19 - Will continue dose of Abilify 20mg for tomorrow morning as well, then consider further taper depending on patient's response. - Continue other medications as above. Navane dosing changed to patient's home dosing times of 10mg at lunch, 10mg at dinner, and 20mg HS. - Consider taper of Lexapro 20mg to discontinuation as well. - Family meeting as appropriate - Coordination of care with outpatient providers to include TMS with Dr. Espinal and Nikolay. - Continue to encourage participation in group therapy and activities while on the unit. (2) Hypothyroidism Continue home dose of levothyroxine 125 g daily. TSH on admission was normal at 0.771. (3) Diabetes mellitus type 2 Patient reports she's been diagnosed with diabetes, doesn't know what type, and doesn't follow her BGs. Her Hgb A1C is normal, and she eats a normal diet at home, and is requesting that here. Continue home dose of metformin. (4) Dyslipidemia Continue home dose of atorvastatin. (5) Class II obesity Encouraged daily exercise and healthy diet. (6) Hypertension Continue home dose of Cozaar. (7) Asthma Continue home dose of Singulair. Discharge / Aftercare Planning Primary Care Physician: Name: Dr Tam Therapist: Name: Lamar Miller Event Specialist Product Demonstrator: Name: Constantino Thomason Visit Code E&M Code: 50229 Inventory Assets Strengths: Extensive outpatient supports, compliance with treatment, good rapport with outpatient providers Needs: Improved coping skills, medication adjustments Risk Factors Assessment : Yes /single/: Yes Higher / Fall in social status: No Health problems: Yes Mental Health Diagnoses: Yes Substance use disorders: No Previous attempt: Yes Previous psychiatric stay: Yes Hopelessness: Yes Smoker: No Protective Factors Assessment Synagogue beliefs: Yes : No Responsible for young children: No Employed: No Stable relationships: Yes Supportive family: Yes Good rapport with provider: Yes Data Vital Signs Last 24 Hrs: Date Time Temp Pulse Resp B/P (MAP) Pulse Ox O2 Delivery O2 Flow Rate FiO2 06/19/17 06:42 37.1 69 20 140/74 71 128/77 06/18/17 17:42 79 18 136/84 06/18/17 15:40 37.1 78 18 183/102 06/18/17 14:02 81 183/102 95 Meds Administered Last 24 Hrs: Meds Administered (Past 24Hrs) Medications (Trade) Dose Ordered Sig/Christofer Route Start Time Stop Time Status Last Admin Dose Admin Clonazepam (Klonopin Tab) 0.5 mg NOW STAT PO 06/18/17 13:52 06/18/17 13:54 DC 06/18/17 14:01 0.5 MG Thiothixene (Navane Cap) 10 mg ONE STAT PO 06/18/17 13:52 06/18/17 13:54 DC 06/18/17 16:22 10 MG Atorvastatin Calcium (Lipitor Tab) 20 mg HS PO 06/18/17 22:00 07/18/17 21:59 06/18/17 22:05 20 MG Clonazepam (Klonopin Tab) 0.5 mg TID PO 06/18/17 22:00 07/18/17 21:59 06/19/17 08:47 0.5 MG Escitalopram Oxalate (Lexapro Tab) 20 mg DAILY PO 06/19/17 09:00 07/19/17 08:59 06/19/17 08:47 20 MG Estradiol (Estrace Tab) 1 mg QAM PO 06/19/17 09:00 07/19/17 08:59 06/19/17 08:46 1 MG Lamotrigine (Lamictal Tab) 150 mg QAM PO 06/19/17 09:00 07/19/17 08:59 06/19/17 08:47 150 MG Levothyroxine Sodium (Synthroid Tab) 125 mcg DAILYBB PO 06/19/17 08:00 07/19/17 07:59 06/19/17 08:45 125 MCG Losartan Potassium (coZAAR TAB) 50 mg QAM PO 06/19/17 09:00 07/19/17 08:59 06/19/17 08:46 50 MG Metformin HCl (Glucophage Tab) 1,000 mg BIDM PO 06/18/17 17:45 07/18/17 17:44 06/19/17 08:47 1,000 MG Montelukast Sodium (Singulair Tab) 10 mg HS PO 06/18/17 22:00 07/18/17 21:59 06/18/17 22:06 10 MG Thiothixene (Navane Cap) 20 mg HS PO 06/18/17 22:00 07/18/17 21:59 06/18/17 22:05 20 MG Desmopressin Acetate (Desmopressin Acetate) 0.2 mg HS PO 06/18/17 22:00 07/18/17 21:59 06/18/17 22:03 0.2 MG Mirtazapine (Remeron Tab) 30 mg HS PO 06/18/17 22:00 07/18/17 21:59 06/18/17 22:06 30 MG Aripiprazole (Abilify Tab) 20 mg DAILY PO 06/19/17 09:00 07/19/17 08:59 06/19/17 08:46 20 MG Lab Results Last 24 Hrs: Last 24 Hours Test 06/18/17 12:29 06/18/17 12:45 06/18/17 13:10 06/19/17 08:42 Urine Test NEG Urine Color YELLOW Urine Appearance CLEAR Urine pH 5.5 Urine Specific [place] 1.014 Urine Protein NEG Urine Glucose (UA) NEG Urine Ketones NEG Urine Occult Blood NEG Urine Nitrite NEG Urine Bilirubin NEG Urine Urobilinogen NEG Urine Leukocyte Esterase SMALL Urine WBC (Auto) 1-5 /hpf Urine RBC (Auto) 0-4 /hpf Urine Hyaline Casts (Auto) 1-5 /lpf Urine Epithelial Cells (Auto) 20-30 /lpf Urine Bacteria (Auto) 3+ Urine Opiates Screen NEG Urine Methadone, Qualitative NEG Urine Barbiturates NEG Urine Phencyclidine (PCP) Level NEG Ur Amphetamine/Methamphetamine NEG MDMA (Ecstasy) Screen NEG Urine Benzodiazepines Screen NEG Urine Cocaine Metabolite NEG Urine Marijuana (THC) NEG White Blood Count 12.31 K/uL Red Blood Count 4.61 M/uL Hemoglobin 12.8 g/dL Hematocrit 37.2 % Mean Corpuscular Volume 80.7 fL Mean Corpuscular Hemoglobin 27.8 pg Mean Corpuscular Hemoglobin Concent 34.4 g/dl RDW Standard Deviation 39.9 fL RDW Coefficient of Variation 13.7 % Platelet Count 211 K/uL Mean Platelet Volume 8.7 fL Sodium Level 136 mmol/L Potassium Level 3.8 mmol/L Chloride Level 103 mmol/L Carbon Dioxide Level 26 mmol/L Anion Gap 7.0 mmol/L Blood Urea Nitrogen 14 mg/dl Creatinine 0.57 mg/dl Est Creatinine Clear Calc Drug Dose 147.5 ml/min Estimated GFR () 127.1 Estimated GFR (Non- 109.6 BUN/Creatinine Ratio 24.1 Random Glucose 99 mg/dl Calcium Level 8.7 mg/dl Total Bilirubin 0.3 mg/dl Direct Bilirubin 0.1 mg/dl Aspartate Amino Transf (AST/SGOT) 12 U/L Alanine Aminotransferase (ALT/SGPT) 27 U/L Alkaline Phosphatase 86 U/L Total Protein 7.1 gm/dl Albumin 3.9 gm/dl Thyroid Stimulating Hormone (TSH) 0.771 uIu/ml Salicylates Level < 1.7 mg/dl Acetaminophen Level < 2 ug/ml Ethyl Alcohol mg/dL < 3.0 mg/dl Bedside Glucose 108 mg/dl
[2017-06-19] MEDS: DESMOPRESSIN ACETATE 0.1 MG TAB PO SCH (21:22)
[2017-06-19] MEDS: ATORVASTATIN 20 MG TAB PO SCH (21:23)
[2017-06-19] MEDS: MIRTAZAPINE TAB 15 MG TAB PO SCH (21:23)
[2017-06-19] MEDS: MONTELUKAST SOD 10 MG TAB PO SCH (21:23)
[2017-06-20 06:44] VITALS: BP_SYST 130; BP_SYST 134; BP_DIAS 76; BP_DIAS 82; PULSE 60; PULSE 66; TEMP 36.7
[2017-06-20] MEDS: LEVOTHYROXINE 125 MCG TAB PO SCH (08:15)
[2017-06-20] MEDS: METFORMIN HCL 500 MG TAB PO SCH ×2 (08:54→18:10)
[2017-06-20] MEDS: ARIPIprazole TAB 10 MG TAB PO SCH (08:54)
[2017-06-20] MEDS: LOSARTAN POTASSIUM 50 MG TAB PO SCH (08:54)
[2017-06-20] MEDS: ESTRADIOL 1 MG TAB PO SCH (08:54)
[2017-06-20] MEDS: CLONAZEPAM 0.5 MG TAB PO SCH ×3 (08:54→21:43)
[2017-06-20] MEDS: ESCITALOPRAM OXALATE 20 MG TAB PO SCH (08:55)
[2017-06-20] MEDS: THIOTHIXENE 5 MG CAP PO SCH ×3 (12:32→21:43)
--- NOTE | 2017-06-20 13:44 | Psychiatric Progress Notes ---
Progress Note Date of Service Jun 20, 2017. Interval History Leisa Cross is a 46-year-old female admitted on Jun 18, 2017 at 14:59 with a history of schizoaffective disorder, depressed type. She was admitted on a 201 voluntary commitment due to increased command auditory hallucinations of her grandfather's voice telling her to harm herself as well as hearing calming words from her mother. Chief Complaint "I feeling a little depressed and still hearing voices". Subjective Patient was seen & assessed interval progress reviewed with Treatment Team. Staff discussed that patient had a meeting with family service caseworker yesterday which seemed to go well. Pt's auditory hallucinations have been ongoing, and suicidality only within the context of these hallucinations. Pt was seen today to assess progress since admission. She states she is "doing ok" and rates herself a 3/10 in regard to mood. She is currently depressed, which she states gets worse as the day progresses due to the voices. She reports she has been hearing her grandfather's voice today which is telling her she is hopeless and to hurt or scratch herself. She states she has still been able to resist the urge to act on these commands. Pt is responding well to decreased dosage of Abilify and is willing to continue to simplify medications prior to trial of TMS. Pt denies SI outside the context of hallucinations. She continues to sleep and eat well while here on the unit. Review of Systems Psych: denies symptoms other than stated above Constitutional: denied Cardiovascular: denied GI: denied Neurologic: denied Remainder of 10 body systems also reviewed and denied other than noted above. Sleep Information Total Hours of Sleep: 7.00 Meal Information Percent of Breakfast Consumed: 100 Percent of Lunch Consumed: 80 Percent of Dinner Consumed: 100 Mental Status Exam During interview pt is: alert and oriented, cooperative Appearance: appropriately dressed, disheveled, other (obese) Eye contact is: poor (looks at floor constantly) Motor behavior is: no abnormal motor movements Speech: normal in rate, rhythm & volume Affect: depressed, flat Mood is: depressed Thought process: goal directed, clear, coherent Thought content: reality based without delusions Suicidal thought are: denied, Plan: denied (constant voice of grandfather telling her to cut or overdose), Intent: denied (reports no desire to act on command auditory hallucinations) Homicidal thoughts are: denied Hallucinations: auditory (grandfather's voice, mother's voice at times which is more calming) Cognition: memory grossly intact, attention grossly intact, language grossly intact Intelligence estimated to be: average Insight: impaired Judgement: impaired Impression Mood has remained about the same since admission. Pt agreeable to discontinuation of Abilify after successful taper as well as adjustment of other medications she has found less effective. Goal is to simplify medications prior to beginning trial of TMS. No adverse reactions reported to taper of Abilify. Will add Navane 5mg prn to assist with possible worsening of anxiety as medications are adjusted. Requires inpatient hospitalization at this time due to major modifications of medication, significant history of mental illness, and high likelihood of self-harm or suicide if discharged prematurely. Plan (1) Schizoaffective disorder, depressive type 06/18 - has been on numerous medications as an outpatient, with limited efficacy , and significant side effect concern, tardive dyskinesia and metabolic syndrome. Discussed her case with TEODORO Arce, and we will attempt to taper her off additional medications, while pursuing outpatient TMS. - Current psychotropic medications include lamotrigine 150 mg daily, mirtazapine 30 mg daily at bedtime, desmopressin 0.2 mg daily every other night , clonazepam 0.5 mg 3 times a day plus once daily when necessary, metformin 1000 mg twice a day, thiothixene 10 mg 4 times a day, aripiprazole 30 mg daily, and escitalopram 20 mg daily. The patient feels that mirtazapine is the most helpful medication, and also thinks she gets benefit from clonazepam, thiothixene and lamotrigine. She does not think that aripiprazole has been helpful, and is not sure if escitalopram is helpful. We will start by decreasing her aripiprazole 20 mg daily, with a goal to taper her off of it as long as she tolerates this well. - Every 15 minute checks for safety, encourage participation in unit groups and therapy, work on healthy coping skills and discharge safety plan. - Coordinate with outpatient providers, family meeting as appropriate. - Fasting lipid profile and glucose last checked 01/15/2017, and were within normal limits. 06/19 - Will continue dose of Abilify 20mg for tomorrow morning as well, then consider further taper depending on patient's response. - Continue other medications as above. Navane dosing changed to patient's home dosing times of 10mg at lunch, 10mg at dinner, and 20mg HS. - Consider taper of Lexapro 20mg to discontinuation as well. - Family meeting as appropriate - Coordination of care with outpatient providers to include TMS with Dr. Espinal and Nikolay. - Continue to encourage participation in group therapy and activities while on the unit. 06/20 - Abilify to 10mg tomorrow morning as taper continues to discontinuation. - Navane 5mg BID prn added to account for possible worsening anxiety with medication changes. - Continue to encourage participation in groups. (2) Hypothyroidism Continue home dose of levothyroxine 125 g daily. TSH on admission was normal at 0.771. (3) Diabetes mellitus type 2 Patient reports she's been diagnosed with diabetes, doesn't know what type, and doesn't follow her BGs. Her Hgb A1C is normal, and she eats a normal diet at home, and is requesting that here. Continue home dose of metformin. (4) Dyslipidemia Continue home dose of atorvastatin. (5) Class II obesity Encouraged daily exercise and healthy diet. (6) Hypertension Continue home dose of Cozaar. (7) Asthma Continue home dose of Singulair. Discharge / Aftercare Planning Primary Care Physician: Name: Dr Tam Therapist: Name: Lamar Miller Chisel Grinder: Name: Constantino Thomason Visit Code E&M Code: 72188 Inventory Assets Strengths: Extensive outpatient supports, compliance with treatment, good rapport with outpatient providers Needs: Improved coping skills, medication adjustments Risk Factors Assessment : Yes /single/: Yes Higher / Fall in social status: No Health problems: Yes Mental Health Diagnoses: Yes Substance use disorders: No Previous attempt: Yes Previous psychiatric stay: Yes Hopelessness: Yes Smoker: No Protective Factors Assessment Confucianism beliefs: Yes : No Responsible for young children: No Employed: No Stable relationships: Yes Supportive family: Yes Good rapport with provider: Yes Data Vital Signs Last 24 Hrs: Date Time Temp Pulse Resp B/P (MAP) Pulse Ox O2 Delivery O2 Flow Rate FiO2 06/20/17 06:44 36.7 60 18 130/76 66 134/82 Meds Administered Last 24 Hrs: Meds Administered (Past 24Hrs) Medications (Trade) Dose Ordered Sig/Christofer Route Start Time Stop Time Status Last Admin Dose Admin Clonazepam (Klonopin Tab) 0.5 mg NOW STAT PO 06/18/17 13:52 06/18/17 13:54 DC 06/18/17 14:01 0.5 MG Thiothixene (Navane Cap) 10 mg ONE STAT PO 06/18/17 13:52 06/18/17 13:54 DC 06/18/17 16:22 10 MG Atorvastatin Calcium (Lipitor Tab) 20 mg HS PO 06/18/17 22:00 07/18/17 21:59 06/19/17 21:23 20 MG Clonazepam (Klonopin Tab) 0.5 mg TID PO 06/18/17 22:00 07/18/17 21:59 06/20/17 08:54 0.5 MG Escitalopram Oxalate (Lexapro Tab) 20 mg DAILY PO 06/19/17 09:00 07/19/17 08:59 06/20/17 08:55 20 MG Estradiol (Estrace Tab) 1 mg QAM PO 06/19/17 09:00 07/19/17 08:59 06/20/17 08:54 1 MG Lamotrigine (Lamictal Tab) 150 mg QAM PO 06/19/17 09:00 07/19/17 08:59 06/20/17 08:54 150 MG Levothyroxine Sodium (Synthroid Tab) 125 mcg DAILYBB PO 06/19/17 08:00 07/19/17 07:59 06/20/17 08:15 125 MCG Losartan Potassium (coZAAR TAB) 50 mg QAM PO 06/19/17 09:00 07/19/17 08:59 06/20/17 08:54 50 MG Metformin HCl (Glucophage Tab) 1,000 mg BIDM PO 06/18/17 17:45 07/18/17 17:44 06/20/17 08:54 1,000 MG Montelukast Sodium (Singulair Tab) 10 mg HS PO 06/18/17 22:00 07/18/17 21:59 06/19/17 21:23 10 MG Thiothixene (Navane Cap) 20 mg HS PO 06/18/17 22:00 07/18/17 21:59 06/19/17 21:23 20 MG Desmopressin Acetate (Desmopressin Acetate) 0.2 mg HS PO 06/18/17 22:00 07/18/17 21:59 06/19/17 21:22 0.2 MG Mirtazapine (Remeron Tab) 30 mg HS PO 06/18/17 22:00 07/18/17 21:59 06/19/17 21:23 30 MG Aripiprazole (Abilify Tab) 20 mg DAILY PO 06/19/17 09:00 07/19/17 08:59 06/20/17 08:54 20 MG Thiothixene (Navane Cap) 10 mg BID@1200,1600 PO 06/19/17 12:00 07/19/17 11:59 06/20/17 12:32 10 MG
[2017-06-20] MEDS: MIRTAZAPINE TAB 15 MG TAB PO SCH (21:42)
[2017-06-20] MEDS: MONTELUKAST SOD 10 MG TAB PO SCH (21:43)
[2017-06-20] MEDS: DESMOPRESSIN ACETATE 0.1 MG TAB PO SCH (21:43)
[2017-06-20] MEDS: ATORVASTATIN 20 MG TAB PO SCH (21:43)
[2017-06-21 06:52] VITALS: BP_SYST 126; BP_DIAS 78; BP_DIAS 81; PULSE 60; PULSE 62; TEMP 36.8
[2017-06-21] MEDS: LEVOTHYROXINE 125 MCG TAB PO SCH (08:01)
[2017-06-21] MEDS: ARIPIprazole TAB 10 MG TAB PO SCH (09:04)
[2017-06-21] MEDS: LOSARTAN POTASSIUM 50 MG TAB PO SCH (09:05)
[2017-06-21] MEDS: ESTRADIOL 1 MG TAB PO SCH (09:05)
[2017-06-21] MEDS: METFORMIN HCL 500 MG TAB PO SCH ×2 (09:05→17:35)
[2017-06-21] MEDS: ESCITALOPRAM OXALATE 20 MG TAB PO SCH (09:06)
[2017-06-21] MEDS: CLONAZEPAM 0.5 MG TAB PO SCH ×3 (09:06→21:25)
--- NOTE | 2017-06-21 10:24 | Psychiatric Progress Notes ---
Progress Note Date of Service Jun 21, 2017. Interval History Leisa Cross is a 46-year-old female admitted on Jun 18, 2017 at 14:59 with a history of schizoaffective disorder, depressed type. She was admitted on a 201 voluntary commitment due to increased command auditory hallucinations of her grandfather's voice telling her to harm herself as well as hearing calming words from her mother. Chief Complaint "Oh...I'm good". Subjective Patient was seen & assessed interval progress reviewed with Nursing. Staff reports patient had a difficult afternoon and stated she was feeling more anxious. They report she began to perseverate on stressors at that point in time but could be comforted and redirected. Pt was seen today along with weekend covering psychiatrist, Dr. Shea. Pt states she has been having a better day today and rates her mood about a 3/10. She confirms she was having difficulty yesterday afternoon with anxiety and low mood, but felt she was able to work through that and eventually join afternoon groups. She reports she is currently hearing her grandfather's voice which is causing anxiety, but she is hoping it will improve. She reports she will request prn medication if she feels she needs it. She states her friends from [employer] are planning to visit her today. We had a discussion about plan for medications moving forward as she prepares for TMS. We shared that the goal at this point was to reduce ineffective medications and simplify her regimen as much as possible without making her condition worse. She denies SI, but reports the voice of her grandfather is ongoing. Review of Systems Psych: denies symptoms other than stated above Constitutional: denied Cardiovascular: denied GI: denied Neurologic: denied Remainder of 10 body systems also reviewed and denied other than noted above. Sleep Information Total Hours of Sleep: 8.50 Meal Information Percent of Breakfast Consumed: 100 Percent of Lunch Consumed: 95 Percent of Dinner Consumed: 100 Mental Status Exam During interview pt is: alert and oriented, cooperative Appearance: appropriately dressed, disheveled Eye contact is: fair Motor behavior is: no abnormal motor movements Speech: normal in rate, rhythm & volume Affect: depressed, blunted Mood is: depressed, anxious Thought process: goal directed, clear, coherent Thought content: reality based without delusions Suicidal thought are: denied (on in the context of command hallucinations), Plan: denied (grandfather's voice tells her to harm herself), Intent: denied ( reports no desire to act on command auditory hallucinations) Homicidal thoughts are: denied Hallucinations: auditory (hears grandfather's and mother's voice) Cognition: memory grossly intact, attention grossly intact, language grossly intact Intelligence estimated to be: average Insight: impaired Judgement: impaired Impression Mood better this morning after some upset yesterday afternoon in which she was tearful and quite anxious. Pt able to discuss plan for medications and asks appropriate questions in the context of aftercare planning. Pt remains interested in TMS and is aware of plans to reduce medications prior to starting treatments. Requires inpatient hospitalization at this time due to medication changes, significant history of mental illness, and high likelihood of self- harm or suicide if discharged prematurely. Plan (1) Schizoaffective disorder, depressive type 06/18 - has been on numerous medications as an outpatient, with limited efficacy , and significant side effect concern, tardive dyskinesia and metabolic syndrome. Discussed her case with TEODORO Arce, and we will attempt to taper her off additional medications, while pursuing outpatient TMS. - Current psychotropic medications include lamotrigine 150 mg daily, mirtazapine 30 mg daily at bedtime, desmopressin 0.2 mg daily every other night , clonazepam 0.5 mg 3 times a day plus once daily when necessary, metformin 1000 mg twice a day, thiothixene 10 mg 4 times a day, aripiprazole 30 mg daily, and escitalopram 20 mg daily. The patient feels that mirtazapine is the most helpful medication, and also thinks she gets benefit from clonazepam, thiothixene and lamotrigine. She does not think that aripiprazole has been helpful, and is not sure if escitalopram is helpful. We will start by decreasing her aripiprazole 20 mg daily, with a goal to taper her off of it as long as she tolerates this well. - Every 15 minute checks for safety, encourage participation in unit groups and therapy, work on healthy coping skills and discharge safety plan. - Coordinate with outpatient providers, family meeting as appropriate. - Fasting lipid profile and glucose last checked 01/15/2017, and were within normal limits. 06/19 - Will continue dose of Abilify 20mg for tomorrow morning as well, then consider further taper depending on patient's response. - Continue other medications as above. Navane dosing changed to patient's home dosing times of 10mg at lunch, 10mg at dinner, and 20mg HS. - Consider taper of Lexapro 20mg to discontinuation as well. - Family meeting as appropriate - Coordination of care with outpatient providers to include TMS with Dr. Espinal and Nikolay. - Continue to encourage participation in group therapy and activities while on the unit. 06/20 - Abilify to 10mg tomorrow morning as taper continues to discontinuation. - Navane 5mg BID prn added to account for possible worsening anxiety with medication changes. - Continue to encourage participation in groups. 06/21 - Received Abilify 10mg this AM. Will continue to taper during her admission. Navane 5mg BID prn was added to account for possible anxiety with medication adjustments. - Recommendations passed on would be to look at escitalopram as next effort in simplifying medication regimen. Pt feels mood is well controlled with Lamictal and may be able to tolerate discontinuation of escitalopram. - Continue to encourage group participation. (2) Hypothyroidism Continue home dose of levothyroxine 125 g daily. TSH on admission was normal at 0.771. (3) Diabetes mellitus type 2 Patient reports she's been diagnosed with diabetes, doesn't know what type, and doesn't follow her BGs. Her Hgb A1C is normal, and she eats a normal diet at home, and is requesting that here. Continue home dose of metformin. (4) Dyslipidemia Continue home dose of atorvastatin. (5) Class II obesity Encouraged daily exercise and healthy diet. (6) Hypertension Continue home dose of Cozaar. (7) Asthma Continue home dose of Singulair. Discharge / Aftercare Planning Primary Care Physician: Name: Dr Tam Therapist: Name: Lamar Miller Chemical Depend[employer] Counselor: Name: Constantino Thomason Visit Code E&M Code: 78152 Inventory Assets Strengths: Extensive outpatient supports, compliance with treatment, good rapport with outpatient providers Needs: Improved coping skills, medication adjustments Risk Factors Assessment : Yes /single/: Yes Higher / Fall in social status: No Health problems: Yes Mental Health Diagnoses: Yes Substance use disorders: No Previous attempt: Yes Previous psychiatric stay: Yes Hopelessness: Yes Smoker: No Protective Factors Assessment Tenriism beliefs: Yes : No Responsible for young children: No Employed: No Stable relationships: Yes Supportive family: Yes Good rapport with provider: Yes Data Vital Signs Last 24 Hrs: Date Time Temp Pulse Resp B/P (MAP) Pulse Ox O2 Delivery O2 Flow Rate FiO2 06/21/17 06:52 36.8 60 16 126/78 62 126/81 Meds Administered Last 24 Hrs: Meds Administered (Past 24Hrs) Medications (Trade) Dose Ordered Sig/Christofer Route Start Time Stop Time Status Last Admin Dose Admin Thiothixene (Navane Cap) 10 mg BID@1200,1600 PO 06/19/17 12:00 07/19/17 11:59 06/20/17 15:39 10 MG Aripiprazole (Abilify Tab) 10 mg DAILY PO 06/21/17 09:00 07/19/17 08:59 06/21/17 09:04 10 MG
--- NOTE | 2017-06-21 11:36 | Psychiatric Progress Notes ---
Progress Note Date of Service Jun 21, 2017. Interval History Leisa Cross is a 46-year-old female admitted on Jun 18, 2017 at 14:59 with a history of schizoaffective disorder, depressed type. She was admitted on a 201 voluntary commitment due to increased command auditory hallucinations of her grandfather's voice telling her to harm herself as well as hearing calming words from her mother. Chief Complaint "Oh...I'm good". Subjective Patient was seen & assessed interval progress reviewed with Nursing. Sleep Information Total Hours of Sleep: 8.50 Meal Information Percent of Breakfast Consumed: 100 Percent of Lunch Consumed: 95 Percent of Dinner Consumed: 100 Mental Status Exam During interview pt is: alert and oriented, cooperative Appearance: appropriately dressed, appropriately groomed Eye contact is: poor (looks at floor constantly) Motor behavior is: no abnormal motor movements Speech: normal in rate, rhythm & volume Affect: depressed, blunted Mood is: depressed Thought process: goal directed, clear, coherent Thought content: reality based without delusions Suicidal thought are: denied, Plan: denied (grandfather's voice tells her to harm herself), Intent: denied (reports no desire to act on command auditory hallucinations) Homicidal thoughts are: denied Hallucinations: auditory (hears grandfather's and mother's voice) Cognition: memory grossly intact, attention grossly intact, language grossly intact Intelligence estimated to be: average Insight: impaired Judgement: impaired Impression Mood has remained about the same since admission. Pt agreeable to discontinuation of Abilify after successful taper as well as adjustment of other medications she has found less effective. Goal is to simplify medications prior to beginning trial of TMS. No adverse reactions reported to taper of Abilify. Will add Navane 5mg prn to assist with possible worsening of anxiety as medications are adjusted. Requires inpatient hospitalization at this time due to major modifications of medication, significant history of mental illness, and high likelihood of self-harm or suicide if discharged prematurely. Plan (1) Schizoaffective disorder, depressive type 06/18 - has been on numerous medications as an outpatient, with limited efficacy , and significant side effect concern, tardive dyskinesia and metabolic syndrome. Discussed her case with TEODORO Arce, and we will attempt to taper her off additional medications, while pursuing outpatient TMS. - Current psychotropic medications include lamotrigine 150 mg daily, mirtazapine 30 mg daily at bedtime, desmopressin 0.2 mg daily every other night , clonazepam 0.5 mg 3 times a day plus once daily when necessary, metformin 1000 mg twice a day, thiothixene 10 mg 4 times a day, aripiprazole 30 mg daily, and escitalopram 20 mg daily. The patient feels that mirtazapine is the most helpful medication, and also thinks she gets benefit from clonazepam, thiothixene and lamotrigine. She does not think that aripiprazole has been helpful, and is not sure if escitalopram is helpful. We will start by decreasing her aripiprazole 20 mg daily, with a goal to taper her off of it as long as she tolerates this well. - Every 15 minute checks for safety, encourage participation in unit groups and therapy, work on healthy coping skills and discharge safety plan. - Coordinate with outpatient providers, family meeting as appropriate. - Fasting lipid profile and glucose last checked 01/15/2017, and were within normal limits. 06/19 - Will continue dose of Abilify 20mg for tomorrow morning as well, then consider further taper depending on patient's response. - Continue other medications as above. Navane dosing changed to patient's home dosing times of 10mg at lunch, 10mg at dinner, and 20mg HS. - Consider taper of Lexapro 20mg to discontinuation as well. - Family meeting as appropriate - Coordination of care with outpatient providers to include TMS with Dr. Espinal and Nikolay. - Continue to encourage participation in group therapy and activities while on the unit. 06/20 - Abilify to 10mg tomorrow morning as taper continues to discontinuation. - Navane 5mg BID prn added to account for possible worsening anxiety with medication changes. - Continue to encourage participation in groups. (2) Hypothyroidism Continue home dose of levothyroxine 125 g daily. TSH on admission was normal at 0.771. (3) Diabetes mellitus type 2 Patient reports she's been diagnosed with diabetes, doesn't know what type, and doesn't follow her BGs. Her Hgb A1C is normal, and she eats a normal diet at home, and is requesting that here. Continue home dose of metformin. (4) Dyslipidemia Continue home dose of atorvastatin. (5) Class II obesity Encouraged daily exercise and healthy diet. (6) Hypertension Continue home dose of Cozaar. (7) Asthma Continue home dose of Singulair. Discharge / Aftercare Planning Primary Care Physician: Name: Dr Tam Therapist: Name: Lamar Miller [employer]: Name: Ramiro Santo Constantino Galloway Inventory Assets Strengths: Extensive outpatient supports, compliance with treatment, good rapport with outpatient providers Needs: Improved coping skills, medication adjustments Risk Factors Assessment : Yes /single/: Yes Higher / Fall in social status: No Health problems: Yes Mental Health Diagnoses: Yes Substance use disorders: No Previous attempt: Yes Previous psychiatric stay: Yes Hopelessness: Yes Smoker: No Protective Factors Assessment Baptist beliefs: Yes : No Responsible for young children: No Employed: No Stable relationships: Yes Supportive family: Yes Good rapport with provider: Yes Data Vital Signs Last 24 Hrs: Date Time Temp Pulse Resp B/P (MAP) Pulse Ox O2 Delivery O2 Flow Rate FiO2 06/21/17 06:52 36.8 60 16 126/78 62 126/81 Meds Administered Last 24 Hrs: Meds Administered (Past 24Hrs) Medications (Trade) Dose Ordered Sig/Christofer Route Start Time Stop Time Status Last Admin Dose Admin Thiothixene (Navane Cap) 10 mg BID@1200,1600 PO 06/19/17 12:00 07/19/17 11:59 06/20/17 15:39 10 MG Aripiprazole (Abilify Tab) 10 mg DAILY PO 06/21/17 09:00 07/19/17 08:59 06/21/17 09:04 10 MG
[2017-06-21] MEDS: THIOTHIXENE 5 MG CAP PO SCH ×3 (12:13→21:25)
[2017-06-21] MEDS: THIOTHIXENE 5 MG CAP PO PRN (18:27)
[2017-06-21] MEDS: DESMOPRESSIN ACETATE 0.1 MG TAB PO SCH (21:25)
[2017-06-21] MEDS: ATORVASTATIN 20 MG TAB PO SCH (21:25)
[2017-06-21] MEDS: MONTELUKAST SOD 10 MG TAB PO SCH (21:26)
[2017-06-21] MEDS: MIRTAZAPINE TAB 15 MG TAB PO SCH (21:26)
[2017-06-22 07:00] VITALS: BP_SYST 125; BP_SYST 127; BP_DIAS 81; BP_DIAS 83; PULSE 63; PULSE 70; TEMP 36.7
[2017-06-22] MEDS: LEVOTHYROXINE 125 MCG TAB PO SCH (08:17)
--- NOTE | 2017-06-22 08:33 | Psychiatric Progress Notes ---
Progress Note Date of Service Jun 22, 2017. Interval History Leisa Cross is a 46-year-old female admitted on Jun 18, 2017 at 14:59 with a history of schizoaffective disorder, depressed type. She was admitted on a 201 voluntary commitment due to increased command auditory hallucinations of her grandfather's voice telling her to harm herself as well as hearing calming words from her mother. Chief Complaint "I feel anxious and paranoid but I feel hopeful for rTMS". Subjective Patient was seen & assessed interval progress reviewed with Treatment Team Mood is 3.5/10. SHe states she feels more depressed today but also more hopeful with high expectations for rTMS. SHe continues to think she is responsible for events on the unit (e.g. police came to take possession of medications and she thought she did something bad) She was able to reality test [facility] staff and felt reassured. SHe smiled when visitor came yesterday SHe had prn navane yesterday for voices x1 and beleives she will ask for it after our meeting today for the same. Stressors include the anniversary of her mother's upcoming, and that her father is aging and fearful he will son. Her brother has been reassuring of extended family who continue to be actively involved and present to support her. She denies other concerns and would like to persist with tapering off the abilify, and using reality testing and coping skills to help her. Encouraged her toward more liberal use of her prn navane if she is distressed as she hesistates to use it. Review of Systems She denies physical concerns today on ROS Sleep Information Total Hours of Sleep: 8.00 Meal Information Percent of Breakfast Consumed: 100 Percent of Lunch Consumed: 100 Percent of Dinner Consumed: 100 Mental Status Exam During interview pt is: alert and oriented, cooperative Appearance: appropriately dressed, disheveled Eye contact is: fair Motor behavior is: no abnormal motor movements, tremor, other (walks with a four footed cane carrying it most of the time only rarely planting it on the ground and is steady) Speech: normal in rate, rhythm & volume Affect: depressed (but has a brighter affect and smiles some today), blunted Mood is: depressed, anxious Thought process: goal directed, clear, coherent Thought content: reality based without delusions Suicidal thought are: denied (on in the context of command hallucinations, at home they tell her to kill herself or they are going to kill her), Plan: denied (grandfather's voice tells her to harm herself), Intent: denied (reports no desire to act on command auditory hallucinations) Homicidal thoughts are: denied Hallucinations: auditory (hears grandfather's and mother's voice) Cognition: memory grossly intact, attention grossly intact, language grossly intact Intelligence estimated to be: average Insight: impaired Judgement: impaired Impression Mood better this morning after some upset yesterday afternoon in which she was tearful and quite anxious. Pt able to discuss plan for medications and asks appropriate questions in the context of aftercare planning. Pt remains interested in TMS and is aware of plans to reduce medications prior to starting treatments. Requires inpatient hospitalization at this time due to medication changes, significant history of mental illness, and high likelihood of self- harm or suicide if discharged prematurely. Plan (1) Schizoaffective disorder, depressive type 06/18 - has been on numerous medications as an outpatient, with limited efficacy , and significant side effect concern, tardive dyskinesia and metabolic syndrome. Discussed her case with TEODORO Arce, and we will attempt to taper her off additional medications, while pursuing outpatient TMS. - Current psychotropic medications include lamotrigine 150 mg daily, mirtazapine 30 mg daily at bedtime, desmopressin 0.2 mg daily every other night , clonazepam 0.5 mg 3 times a day plus once daily when necessary, metformin 1000 mg twice a day, thiothixene 10 mg 4 times a day, aripiprazole 30 mg daily, and escitalopram 20 mg daily. The patient feels that mirtazapine is the most helpful medication, and also thinks she gets benefit from clonazepam, thiothixene and lamotrigine. She does not think that aripiprazole has been helpful, and is not sure if escitalopram is helpful. We will start by decreasing her aripiprazole 20 mg daily, with a goal to taper her off of it as long as she tolerates this well. - Every 15 minute checks for safety, encourage participation in unit groups and therapy, work on healthy coping skills and discharge safety plan. - Coordinate with outpatient providers, family meeting as appropriate. - Fasting lipid profile and glucose last checked 01/15/2017, and were within normal limits. 06/19 - Will continue dose of Abilify 20mg for tomorrow morning as well, then consider further taper depending on patient's response. - Continue other medications as above. Navane dosing changed to patient's home dosing times of 10mg at lunch, 10mg at dinner, and 20mg HS. - Consider taper of Lexapro 20mg to discontinuation as well. - Family meeting as appropriate - Coordination of care with outpatient providers to include TMS with Dr. Espinal and Nikolay. - Continue to encourage participation in group therapy and activities while on the unit. 06/20 - Abilify to 10mg tomorrow morning as taper continues to discontinuation. - Navane 5mg BID prn added to account for possible worsening anxiety with medication changes. - Continue to encourage participation in groups. 06/21 - Received Abilify 10mg this AM. Will continue to taper during her admission. Navane 5mg BID prn was added to account for possible anxiety with medication adjustments. - Recommendations passed on would be to look at escitalopram as next effort in simplifying medication regimen. Pt feels mood is well controlled with Lamictal and may be able to tolerate discontinuation of escitalopram. - Continue to encourage group participation. 06/22 - received 2nd day of abilify 10am and will reduce to 5mg starting tomorrow, continue prn navane future goals may be reduction of lexapro (but leary given her obsessional worries of having caused harm ), she is slightly brighter today even though she reports more "depressed" may be less flattening on lowered abilify will need to watch as we approach true antidepressant doses (2) Hypothyroidism Continue home dose of levothyroxine 125 g daily. TSH on admission was normal at 0.771. (3) Diabetes mellitus type 2 Patient reports she's been diagnosed with diabetes, doesn't know what type, and doesn't follow her BGs. Her Hgb A1C is normal, and she eats a normal diet at home, and is requesting that here. Continue home dose of metformin. (4) Dyslipidemia Continue home dose of atorvastatin. (5) Class II obesity Encouraged daily exercise and healthy diet. (6) Hypertension Continue home dose of Cozaar. (7) Asthma Continue home dose of Singulair. Discharge / Aftercare Planning Primary Care Physician: Name: Pro Therapist: Name: Lamar Paul Safety Glass Installer: Name: Constantino Thomason Visit Code E&M Code: 43384 Inventory Assets Strengths: Extensive outpatient supports, compliance with treatment, good rapport with outpatient providers Needs: Improved coping skills, medication adjustments Risk Factors Assessment : Yes /single/: Yes Higher / Fall in social status: No Health problems: Yes Mental Health Diagnoses: Yes Substance use disorders: No Previous attempt: Yes Previous psychiatric stay: Yes Hopelessness: Yes Smoker: No Protective Factors Assessment Christianity beliefs: Yes : No Responsible for young children: No Employed: No Stable relationships: Yes Supportive family: Yes Good rapport with provider: Yes Data Vital Signs Last 24 Hrs: Date Time Temp Pulse Resp B/P (MAP) Pulse Ox O2 Delivery O2 Flow Rate FiO2 06/22/17 07:00 36.7 63 16 125/81 70 127/83 Meds Administered Last 24 Hrs: Meds Administered (Past 24Hrs) Medications (Trade) Dose Ordered Sig/Christofer Route Start Time Stop Time Status Last Admin Dose Admin Aripiprazole (Abilify Tab) 10 mg DAILY PO 06/21/17 09:00 07/19/17 08:59 06/21/17 09:04 10 MG Thiothixene (Navane Cap) 5 mg BID PRN PO 06/21/17 07:00 07/21/17 06:59 06/21/17 18:27 5 MG
[2017-06-22] MEDS: ARIPIprazole TAB 10 MG TAB PO SCH (10:03)
[2017-06-22] MEDS: LOSARTAN POTASSIUM 50 MG TAB PO SCH (10:03)
[2017-06-22] MEDS: ESTRADIOL 1 MG TAB PO SCH (10:03)
[2017-06-22] MEDS: CLONAZEPAM 0.5 MG TAB PO SCH ×3 (10:04→21:26)
[2017-06-22] MEDS: METFORMIN HCL 500 MG TAB PO SCH ×2 (10:04→17:23)
[2017-06-22] MEDS: ESCITALOPRAM OXALATE 20 MG TAB PO SCH (10:05)
[2017-06-22] MEDS: THIOTHIXENE 5 MG CAP PO SCH ×3 (11:55→21:27)
[2017-06-22] MEDS: MONTELUKAST SOD 10 MG TAB PO SCH (21:27)
[2017-06-22] MEDS: MIRTAZAPINE TAB 15 MG TAB PO SCH (21:27)
[2017-06-22] MEDS: ATORVASTATIN 20 MG TAB PO SCH (21:27)
[2017-06-22] MEDS: DESMOPRESSIN ACETATE 0.1 MG TAB PO SCH (21:27)
[2017-06-23 06:53] VITALS: BP_SYST 130; BP_SYST 132; BP_DIAS 80; BP_DIAS 82; PULSE 65; PULSE 69; TEMP 36.9
[2017-06-23] MEDS: LEVOTHYROXINE 125 MCG TAB PO SCH (08:33)
[2017-06-23] MEDS: LOSARTAN POTASSIUM 50 MG TAB PO SCH (08:47)
[2017-06-23] MEDS: CLONAZEPAM 0.5 MG TAB PO SCH ×3 (08:48→21:15)
[2017-06-23] MEDS: ESTRADIOL 1 MG TAB PO SCH (08:48)
[2017-06-23] MEDS: METFORMIN HCL 500 MG TAB PO SCH ×2 (08:48→17:25)
[2017-06-23] MEDS: ESCITALOPRAM OXALATE 20 MG TAB PO SCH (08:50)
[2017-06-23] MEDS ORDERED: ARIPIprazole TAB 5 MG TAB PO SCH (09:00)
--- NOTE | 2017-06-23 11:12 | Psychiatric Progress Notes ---
Progress Note Date of Service Jun 23, 2017. Interval History Leisa Cross is a 46-year-old female admitted on Jun 18, 2017 at 14:59 with a history of schizoaffective disorder, depressed type. She was admitted on a 201 voluntary commitment due to increased command auditory hallucinations of her grandfather's voice telling her to harm herself as well as hearing calming words from her mother. Chief Complaint "I'm still pretty depressed. ". Subjective Patient was seen & assessed interval progress reviewed with Treatment Team. The patient is tearful today reporting ongoing depression and auditory hallucinations of her grandfather's voice telling her to kill herself. Abilify is being tapered and she denies any worsening of her condition as the dose drops. She reports multiple stressors including the fact that her father is in failing health "and we don't know how long we'll have him". She visited him at [facility], but during the visit, her 2 brothers were fighting and threatening not to be at [facility] with them which was immensely stressful to Leisa. Here at home, her roman catholic friends are planning to throw a pot luck dinner on 06/29 for her support, but she is feeling too "overwhelmed and emotional" to tolerate such a gathering and would like it to be cancelled. She remains hopeful for TMS, something her sister in law has researched extensively for her, and working toward with Dr. Espinal. We review her meds and possible changes and she gives conflicting answers at times, saying that Navane has been both "a little bit helpful" and not helpful, and wonders about her Lexapro as well. She feels "really emotional" right now, and does not think she would be able to function outside of the hospital. She denies vis hallucinations, but did say that once in recent days when a security systems technician was on the unit, that she thought he was there for her. Review of Systems Constitutional: No fever, No chills, No sweats, No weight loss, No weakness, No fatigue, No problem reported ENT: No hearing loss, No unusual epistaxis, No nasal symptoms, No sore throat, No tinnitus, No dental problems, No trouble swallowing, No problem reported Respiratory: No cough, No sputum, No wheezing, No shortness of breath, No dyspnea on exertion, No dyspnea at rest, No hemoptysis, No problem reported Cardiovascular: No chest pain, No orthopnea, No PND, No edema, No claudication , No palpitations, No problem reported Abdomen: No pain, No nausea, No vomiting, No diarrhea, No constipation, No GI bleeding, No problem reported Musculoskeletal: + problem reported (walks with a cane for stability) Neurologic: No memory loss, No paralysis, No weakness, No numbness/tingling, No vertigo, No balance problems, No problem reported Psychiatric: + depression symptoms, + anxiety Integumentary: No rash, No itch, No new/changing skin lesions, No color change , No bleeding, No problem reported Sleep Information Total Hours of Sleep: 8.00 Meal Information Percent of Breakfast Consumed: 95 Percent of Lunch Consumed: 75 Percent of Dinner Consumed: 100 Mental Status Exam During interview pt is: alert and oriented, cooperative Appearance: appropriately dressed, other (obese) Eye contact is: fair Motor behavior is: tremor, other (walks with a four footed cane carrying it most of the time only rarely planting it on the ground and is steady) Speech: normal in rate, rhythm & volume Affect: depressed (but has a brighter affect and smiles some today), tearful Mood is: depressed, anxious Thought process: goal directed, clear, coherent Thought content: reality based without delusions Suicidal thought are: denied (on in the context of command hallucinations, at home they tell her to kill herself or they are going to kill her), Plan: denied (grandfather's voice tells her to harm herself), Intent: denied (reports no desire to act on command auditory hallucinations) Homicidal thoughts are: denied Hallucinations: auditory (hears grandfather's and mother's voice) Cognition: memory grossly intact, attention grossly intact, language grossly intact Intelligence estimated to be: average Insight: impaired Judgement: impaired Impression Remains quite fragile with depression and aud hallucinations. Our agenda is to wean off meds that have not been beneficial, and Abilify is down to 5 mg. today. Will DC starting tomorrow. Will then begin to taper Navane, as she has been on this for years, without clear benefit. She says that the Lexapro has not been helpful either, but will taper one med at a time, since she may experience some transient decompensation in the process. Plan (1) Schizoaffective disorder, depressive type 06/18 - has been on numerous medications as an outpatient, with limited efficacy , and significant side effect concern, tardive dyskinesia and metabolic syndrome. Discussed her case with TEODORO Arce, and we will attempt to taper her off additional medications, while pursuing outpatient TMS. - Current psychotropic medications include lamotrigine 150 mg daily, mirtazapine 30 mg daily at bedtime, desmopressin 0.2 mg daily every other night , clonazepam 0.5 mg 3 times a day plus once daily when necessary, metformin 1000 mg twice a day, thiothixene 10 mg 4 times a day, aripiprazole 30 mg daily, and escitalopram 20 mg daily. The patient feels that mirtazapine is the most helpful medication, and also thinks she gets benefit from clonazepam, thiothixene and lamotrigine. She does not think that aripiprazole has been helpful, and is not sure if escitalopram is helpful. We will start by decreasing her aripiprazole 20 mg daily, with a goal to taper her off of it as long as she tolerates this well. - Every 15 minute checks for safety, encourage participation in unit groups and therapy, work on healthy coping skills and discharge safety plan. - Coordinate with outpatient providers, family meeting as appropriate. - Fasting lipid profile and glucose last checked 01/15/2017, and were within normal limits. 06/19 - Will continue dose of Abilify 20mg for tomorrow morning as well, then consider further taper depending on patient's response. - Continue other medications as above. Navane dosing changed to patient's home dosing times of 10mg at lunch, 10mg at dinner, and 20mg HS. - Consider taper of Lexapro 20mg to discontinuation as well. - Family meeting as appropriate - Coordination of care with outpatient providers to include TMS with Dr. Espinal and Nikolay. - Continue to encourage participation in group therapy and activities while on the unit. 06/20 - Abilify to 10mg tomorrow morning as taper continues to discontinuation. - Navane 5mg BID prn added to account for possible worsening anxiety with medication changes. - Continue to encourage participation in groups. 06/21 - Received Abilify 10mg this AM. Will continue to taper during her admission. Navane 5mg BID prn was added to account for possible anxiety with medication adjustments. - Recommendations passed on would be to look at escitalopram as next effort in simplifying medication regimen. Pt feels mood is well controlled with Lamictal and may be able to tolerate discontinuation of escitalopram. - Continue to encourage group participation. 06/22 - received 2nd day of abilify 10am and will reduce to 5mg starting tomorrow, continue prn navane future goals may be reduction of lexapro (but leary given her obsessional worries of having caused harm ), she is slightly brighter today even though she reports more "depressed" may be less flattening on lowered abilify will need to watch as we approach true antidepressant doses 06/23 - DC Abilify - Will begin taper of Navane tomorrow. (2) Hypothyroidism Continue home dose of levothyroxine 125 g daily. TSH on admission was normal at 0.771. (3) Diabetes mellitus type 2 Patient reports she's been diagnosed with diabetes, doesn't know what type, and doesn't follow her BGs. Her Hgb A1C is normal, and she eats a normal diet at home, and is requesting that here. Continue home dose of metformin. (4) Dyslipidemia Continue home dose of atorvastatin. (5) Class II obesity Encouraged daily exercise and healthy diet. (6) Hypertension Continue home dose of Cozaar. (7) Asthma Continue home dose of Singulair. Discharge / Aftercare Planning Primary Care Physician: Name: Dr Tam Therapist: Name: Lamar Miller Clinical Trial Manager: Name: Constantino Thomason Neurologist: Name: Dr. Westbrook [facility] Date of Appointment: Jul 04, 2017 Time of Appointment: 3:00 Visit Code E&M Code: 94416 Inventory Assets Strengths: Extensive outpatient supports, compliance with treatment, good rapport with outpatient providers Needs: Improved coping skills, medication adjustments Risk Factors Assessment : Yes /single/: Yes Higher / Fall in social status: No Health problems: Yes Mental Health Diagnoses: Yes Substance use disorders: No Previous attempt: Yes Previous psychiatric stay: Yes Hopelessness: Yes Smoker: No Protective Factors Assessment Baptism beliefs: Yes : No Responsible for young children: No Employed: No Stable relationships: Yes Supportive family: Yes Good rapport with provider: Yes Data Vital Signs Last 24 Hrs: Date Time Temp Pulse Resp B/P (MAP) Pulse Ox O2 Delivery O2 Flow Rate FiO2 06/23/17 06:53 36.9 69 16 130/80 65 132/82 Meds Administered Last 24 Hrs: Meds Administered (Past 24Hrs) Medications (Trade) Dose Ordered Sig/Christofer Route Start Time Stop Time Status Last Admin Dose Admin Aripiprazole (Abilify Tab) 5 mg DAILY PO 06/23/17 09:00 07/19/17 08:59 06/23/17 08:47 5 MG Lab Results Last 24 Hrs: 06/18/17 13:10 06/18/17 13:10 Test 06/18/17 12:29 06/18/17 12:45 06/18/17 13:10 06/19/17 08:42 Urine Test NEG (NEG) Urine Color YELLOW Urine Appearance CLEAR (CLEAR) Urine pH 5.5 (4.5-7.5) Urine Specific [place] 1.014 (1.000-1.030) Urine Protein NEG (NEG) Urine Glucose (UA) NEG (NEG) Urine Ketones NEG (NEG) Urine Occult Blood NEG (NEG) Urine Nitrite NEG (NEG) Urine Bilirubin NEG (NEG) Urine Urobilinogen NEG (NEG) Urine Leukocyte Esterase SMALL (NEG) Urine WBC (Auto) 1-5 /hpf (0-5) Urine RBC (Auto) 0-4 /hpf (0-4) Urine Hyaline Casts (Auto) 1-5 /lpf (0-5) Urine Epithelial Cells (Auto) 20-30 /lpf (0-5) Urine Bacteria (Auto) 3+ (NEG) Urine Opiates Screen NEG (NEG) Urine Methadone, Qualitative NEG (NEG) Urine Barbiturates NEG (NEG) Urine Phencyclidine (PCP) Level NEG (NEG) Ur Amphetamine/Methamphetamine NEG (NEG) MDMA (Ecstasy) Screen NEG (NEG) Urine Benzodiazepines Screen NEG (NEG) Urine Cocaine Metabolite NEG (NEG) Urine Marijuana (THC) NEG (NEG) Red Blood Count 4.61 M/uL (4.2-5.4) Mean Corpuscular Volume 80.7 fL (80-100) Mean Corpuscular Hemoglobin 27.8 pg (25-34) Mean Corpuscular Hemoglobin Concent 34.4 g/dl (32-36) RDW Standard Deviation 39.9 fL (36.4-46.3) RDW Coefficient of Variation 13.7 % (11.5-14.5) Mean Platelet Volume 8.7 fL (7.4-10.4) Anion Gap 7.0 mmol/L (3-11) Est Creatinine Clear Calc Drug Dose 147.5 ml/min Estimated GFR () 127.1 Estimated GFR (Non- 109.6 BUN/Creatinine Ratio 24.1 (10-20) Calcium Level 8.7 mg/dl (8.5-10.1) Total Bilirubin 0.3 mg/dl (0.2-1) Direct Bilirubin 0.1 mg/dl (0-0.2) Aspartate Amino Transf (AST/SGOT) 12 U/L (15-37) Alanine Aminotransferase (ALT/SGPT) 27 U/L (12-78) Alkaline Phosphatase 86 U/L (45-117) Total Protein 7.1 gm/dl (6.4-8.2) Albumin 3.9 gm/dl (3.4-5.0) Thyroid Stimulating Hormone (TSH) 0.771 uIu/ml (0.300-4.500) Salicylates Level < 1.7 mg/dl (2.8-20) Acetaminophen Level < 2 ug/ml (10-30) Ethyl Alcohol mg/dL < 3.0 mg/dl (0-3) Bedside Glucose 108 mg/dl (70-90)
[2017-06-23] MEDS: THIOTHIXENE 5 MG CAP PO SCH ×3 (12:17→21:15)
[2017-06-23] MEDS: DESMOPRESSIN ACETATE 0.1 MG TAB PO SCH (21:15)
[2017-06-23] MEDS: MONTELUKAST SOD 10 MG TAB PO SCH (21:15)
[2017-06-23] MEDS: ATORVASTATIN 20 MG TAB PO SCH (21:15)
[2017-06-23] MEDS: MIRTAZAPINE TAB 15 MG TAB PO SCH (21:15)
[2017-06-24 06:57] VITALS: BP_SYST 131; BP_SYST 133; BP_DIAS 81; BP_DIAS 84; PULSE 66; PULSE 71; TEMP 36.8
[2017-06-24] MEDS: LEVOTHYROXINE 125 MCG TAB PO SCH (08:19)
[2017-06-24] MEDS: LOSARTAN POTASSIUM 50 MG TAB PO SCH (08:19)
[2017-06-24] MEDS: ESTRADIOL 1 MG TAB PO SCH (08:20)
[2017-06-24] MEDS: METFORMIN HCL 500 MG TAB PO SCH ×2 (08:20→17:58)
[2017-06-24] MEDS: ESCITALOPRAM OXALATE 20 MG TAB PO SCH (08:21)
[2017-06-24] MEDS: CLONAZEPAM 0.5 MG TAB PO SCH ×3 (08:24→21:14)
[2017-06-24 08:41] VITALS: BP 138/80; PULSE 75
--- NOTE | 2017-06-24 10:56 | Psychiatric Progress Notes ---
Progress Note Date of Service Jun 24, 2017. Interval History Leisa Cross is a 46-year-old female admitted on Jun 18, 2017 at 14:59 with a history of schizoaffective disorder, depressed type. She was admitted on a 201 voluntary commitment due to increased command auditory hallucinations of her grandfather's voice telling her to harm herself as well as hearing calming words from her mother. Chief Complaint "OK". Subjective Patient was seen & assessed interval progress reviewed with Treatment Team . The patient says that she had a difficult afternoon yesterday. Around lunch she began to feel anxious, panicky, with no specific trigger. She took a klonopin, retreated to her room to distract herself with radio and her stress ball, feeling that the anxiety abated within about 30 min. She remains depressed, but without SI. hallucinations remain, her grandfather telling her to kill herself, but no worse as we taper meds. She has talked with her brother Shon by phone who has encouraged her to reconsider her position of clozaril if there is a chance that she would be more stable on it. Yesterday the patient was able to act on her own behalf and talk with a synagogue friend to cancel the pot luck scheduled for 06/29, and she felt good about her efforts. She denies vis hallucinations. Denies side effects to meds. Review of Systems Constitutional: No fever, No chills, No sweats, No weight loss, No weakness, No fatigue, No problem reported ENT: No hearing loss, No unusual epistaxis, No nasal symptoms, No sore throat, No tinnitus, No dental problems, No trouble swallowing, No problem reported Respiratory: No cough, No sputum, No wheezing, No shortness of breath, No dyspnea on exertion, No dyspnea at rest, No hemoptysis, No problem reported Cardiovascular: No chest pain, No orthopnea, No PND, No edema, No claudication , No palpitations, No problem reported Abdomen: No pain, No nausea, No vomiting, No diarrhea, No constipation, No GI bleeding, No problem reported Musculoskeletal: + problem reported (ambulates with cane) Neurologic: No memory loss, No paralysis, No weakness, No numbness/tingling, No vertigo, No balance problems, No problem reported Psychiatric: + depression symptoms (with hallucinations), + anxiety Integumentary: No rash, No itch, No new/changing skin lesions, No color change , No bleeding, No problem reported Sleep Information Total Hours of Sleep: 8.00 Meal Information Percent of Breakfast Consumed: 100 Percent of Lunch Consumed: 20 Percent of Dinner Consumed: 100 Mental Status Exam During interview pt is: alert and oriented, cooperative Appearance: appropriately dressed, other (obese) Eye contact is: fair Motor behavior is: tremor, other (walks with a four footed cane carrying it most of the time only rarely planting it on the ground and is steady) Speech: normal in rate, rhythm & volume Affect: depressed (but has a brighter affect and smiles some today), flat Mood is: depressed, anxious Thought process: goal directed, clear, coherent Thought content: reality based without delusions Suicidal thought are: denied (on in the context of command hallucinations, at home they tell her to kill herself or they are going to kill her), Plan: denied (grandfather's voice tells her to harm herself), Intent: denied (reports no desire to act on command auditory hallucinations) Homicidal thoughts are: denied Hallucinations: auditory (hears grandfather's and mother's voice) Cognition: memory grossly intact, attention grossly intact, language grossly intact Intelligence estimated to be: average Insight: impaired Judgement: impaired Impression Last dose of Abilify yesterday. Will start to taper Navane today and drop total dose to 10 mg. TID, since she has had no demonstrable improvement on this med over time. Will need inpatient support throughout the process of changing/ discontinuing medications, as she generally decompensates with change. Plan (1) Schizoaffective disorder, depressive type /17 - has been on numerous medications as an outpatient, with limited efficacy , and significant side effect concern, tardive dyskinesia and metabolic syndrome. Discussed her case with TEODORO Arce, and we will attempt to taper her off additional medications, while pursuing outpatient TMS. - Current psychotropic medications include lamotrigine 150 mg daily, mirtazapine 30 mg daily at bedtime, desmopressin 0.2 mg daily every other night , clonazepam 0.5 mg 3 times a day plus once daily when necessary, metformin 1000 mg twice a day, thiothixene 10 mg 4 times a day, aripiprazole 30 mg daily, and escitalopram 20 mg daily. The patient feels that mirtazapine is the most helpful medication, and also thinks she gets benefit from clonazepam, thiothixene and lamotrigine. She does not think that aripiprazole has been helpful, and is not sure if escitalopram is helpful. We will start by decreasing her aripiprazole 20 mg daily, with a goal to taper her off of it as long as she tolerates this well. - Every 15 minute checks for safety, encourage participation in unit groups and therapy, work on healthy coping skills and discharge safety plan. - Coordinate with outpatient providers, family meeting as appropriate. - Fasting lipid profile and glucose last checked 01/15/2017, and were within normal limits. 06/19 - Will continue dose of Abilify 20mg for tomorrow morning as well, then consider further taper depending on patient's response. - Continue other medications as above. Navane dosing changed to patient's home dosing times of 10mg at lunch, 10mg at dinner, and 20mg HS. - Consider taper of Lexapro 20mg to discontinuation as well. - Family meeting as appropriate - Coordination of care with outpatient providers to include TMS with Dr. Espinal and Nikolay. - Continue to encourage participation in group therapy and activities while on the unit. 06/20 - Abilify to 10mg tomorrow morning as taper continues to discontinuation. - Navane 5mg BID prn added to account for possible worsening anxiety with medication changes. - Continue to encourage participation in groups. 06/21 - Received Abilify 10mg this AM. Will continue to taper during her admission. Navane 5mg BID prn was added to account for possible anxiety with medication adjustments. - Recommendations passed on would be to look at escitalopram as next effort in simplifying medication regimen. Pt feels mood is well controlled with Lamictal and may be able to tolerate discontinuation of escitalopram. - Continue to encourage group participation. 06/22 - received 2nd day of abilify 10am and will reduce to 5mg starting tomorrow, continue prn navane future goals may be reduction of lexapro (but leary given her obsessional worries of having caused harm ), she is slightly brighter today even though she reports more "depressed" may be less flattening on lowered abilify will need to watch as we approach true antidepressant doses 06/23 - DC Abilify - Will begin taper of Navane tomorrow. 06/24 - Taper Navane to 10 mg. TID (2) Hypothyroidism Continue home dose of levothyroxine 125 g daily. TSH on admission was normal at 0.771. (3) Diabetes mellitus type 2 Patient reports she's been diagnosed with diabetes, doesn't know what type, and doesn't follow her BGs. Her Hgb A1C is normal, and she eats a normal diet at home, and is requesting that here. Continue home dose of metformin. (4) Dyslipidemia Continue home dose of atorvastatin. (5) Class II obesity Encouraged daily exercise and healthy diet. (6) Hypertension Continue home dose of Cozaar. (7) Asthma Continue home dose of Singulair. Discharge / Aftercare Planning Primary Care Physician: Name: Dr Tam Therapist: Name: Lamar Miller Correction Officer Head: Name: Constantino Thomason Neurologist: Name: Dr. Westbrook [facility] [place] Date of Appointment: Jul 04, 2017 Time of Appointment: 3:00 Visit Code E&M Code: 20600 Inventory Assets Strengths: Extensive outpatient supports, compliance with treatment, good rapport with outpatient providers Needs: Improved coping skills, medication adjustments Risk Factors Assessment : Yes /single/: Yes Higher / Fall in social status: No Health problems: Yes Mental Health Diagnoses: Yes Substance use disorders: No Previous attempt: Yes Previous psychiatric stay: Yes Hopelessness: Yes Smoker: No Protective Factors Assessment Jew beliefs: Yes : No Responsible for young children: No Employed: No Stable relationships: Yes Supportive family: Yes Good rapport with provider: Yes Data Vital Signs Last 24 Hrs: Date Time Temp Pulse Resp B/P (MAP) Pulse Ox O2 Delivery O2 Flow Rate FiO2 06/24/17 08:41 75 16 138/80 06/24/17 06:57 36.8 66 16 131/84 71 133/81 Meds Administered Last 24 Hrs: Meds Administered (Past 24Hrs) Medications (Trade) Dose Ordered Sig/Christofer Route Start Time Stop Time Status Last Admin Dose Admin Aripiprazole (Abilify Tab) 5 mg DAILY PO 06/23/17 09:00 06/23/17 11:12 DC 06/23/17 08:47 5 MG Lab Results Last 24 Hrs: 06/18/17 13:10 06/18/17 13:10 Test 06/18/17 12:29 06/18/17 12:45 06/18/17 13:10 06/19/17 08:42 Urine Test NEG (NEG) Urine Color YELLOW Urine Appearance CLEAR (CLEAR) Urine pH 5.5 (4.5-7.5) Urine Specific [place] 1.014 (1.000-1.030) Urine Protein NEG (NEG) Urine Glucose (UA) NEG (NEG) Urine Ketones NEG (NEG) Urine Occult Blood NEG (NEG) Urine Nitrite NEG (NEG) Urine Bilirubin NEG (NEG) Urine Urobilinogen NEG (NEG) Urine Leukocyte Esterase SMALL (NEG) Urine WBC (Auto) 1-5 /hpf (0-5) Urine RBC (Auto) 0-4 /hpf (0-4) Urine Hyaline Casts (Auto) 1-5 /lpf (0-5) Urine Epithelial Cells (Auto) 20-30 /lpf (0-5) Urine Bacteria (Auto) 3+ (NEG) Urine Opiates Screen NEG (NEG) Urine Methadone, Qualitative NEG (NEG) Urine Barbiturates NEG (NEG) Urine Phencyclidine (PCP) Level NEG (NEG) Ur Amphetamine/Methamphetamine NEG (NEG) MDMA (Ecstasy) Screen NEG (NEG) Urine Benzodiazepines Screen NEG (NEG) Urine Cocaine Metabolite NEG (NEG) Urine Marijuana (THC) NEG (NEG) Red Blood Count 4.61 M/uL (4.2-5.4) Mean Corpuscular Volume 80.7 fL (80-100) Mean Corpuscular Hemoglobin 27.8 pg (25-34) Mean Corpuscular Hemoglobin Concent 34.4 g/dl (32-36) RDW Standard Deviation 39.9 fL (36.4-46.3) RDW Coefficient of Variation 13.7 % (11.5-14.5) Mean Platelet Volume 8.7 fL (7.4-10.4) Anion Gap 7.0 mmol/L (3-11) Est Creatinine Clear Calc Drug Dose 147.5 ml/min Estimated GFR () 127.1 Estimated GFR (Non- 109.6 BUN/Creatinine Ratio 24.1 (10-20) Calcium Level 8.7 mg/dl (8.5-10.1) Total Bilirubin 0.3 mg/dl (0.2-1) Direct Bilirubin 0.1 mg/dl (0-0.2) Aspartate Amino Transf (AST/SGOT) 12 U/L (15-37) Alanine Aminotransferase (ALT/SGPT) 27 U/L (12-78) Alkaline Phosphatase 86 U/L (45-117) Total Protein 7.1 gm/dl (6.4-8.2) Albumin 3.9 gm/dl (3.4-5.0) Thyroid Stimulating Hormone (TSH) 0.771 uIu/ml (0.300-4.500) Salicylates Level < 1.7 mg/dl (2.8-20) Acetaminophen Level < 2 ug/ml (10-30) Ethyl Alcohol mg/dL < 3.0 mg/dl (0-3) Bedside Glucose 108 mg/dl (70-90)
[2017-06-24] MEDS: THIOTHIXENE 5 MG CAP PO SCH ×3 (13:13→21:15)
[2017-06-24] MEDS: CLONAZEPAM 0.5 MG TAB PO PRN (16:04)
[2017-06-24] MEDS: ATORVASTATIN 20 MG TAB PO SCH (21:14)
[2017-06-24] MEDS: DESMOPRESSIN ACETATE 0.1 MG TAB PO SCH (21:14)
[2017-06-24] MEDS: MONTELUKAST SOD 10 MG TAB PO SCH (21:15)
[2017-06-24] MEDS: MIRTAZAPINE TAB 15 MG TAB PO SCH (21:15)
[2017-06-25 06:56] VITALS: BP_SYST 123; BP_SYST 130; BP_DIAS 76; BP_DIAS 79; PULSE 67; TEMP 36.6
[2017-06-25] MEDS: LOSARTAN POTASSIUM 50 MG TAB PO SCH (09:05)
[2017-06-25] MEDS: LEVOTHYROXINE 125 MCG TAB PO SCH (09:05)
[2017-06-25] MEDS: ESTRADIOL 1 MG TAB PO SCH (09:05)
[2017-06-25] MEDS: METFORMIN HCL 500 MG TAB PO SCH ×2 (09:06→17:21)
[2017-06-25] MEDS: ESCITALOPRAM OXALATE 20 MG TAB PO SCH (09:07)
[2017-06-25] MEDS: CLONAZEPAM 0.5 MG TAB PO SCH ×3 (09:17→21:42)
--- NOTE | 2017-06-25 09:19 | Psychiatric Progress Notes ---
Progress Note Date of Service Jun 25, 2017. Interval History Leisa Cross is a 46-year-old female admitted on Jun 18, 2017 at 14:59 with a history of schizoaffective disorder, depressed type. She was admitted on a 201 voluntary commitment due to increased command auditory hallucinations of her grandfather's voice telling her to harm herself as well as hearing calming words from her mother. Chief Complaint "The same". Subjective Patient was seen & assessed interval progress reviewed with Treatment Team. Staff report she is going to groups, completed the taper off aripiprazole, and started a taper off Navane. Today the patient reports her symptoms are the same , mood continues to be depressed, rating it a 2-3 out of 10. She continues to hear her grandfather's voice telling her she is no good and should kill herself. She is coping by going to groups, talking to others, and listening to [employer] radio. She is trying to focus on self care, eating healthy and getting good sleep. She notes she had been eating a lot of chocolate when stressed. She asked to see a dietitian, and order was placed, but they have not come to see her yet. She denies that she will hurt herself here, and feels safe in the hospital. She notes she is frustrated that she continues to feel so poorly, but hopeful that she might get better, as she is still hoping for TMS. She would like to taper off exitalopram as well, as she feels it has not been helpful. She got a prn of clonazepam yesterday which was helpful for anxiety. Sleep Information Total Hours of Sleep: 8.00 Meal Information Percent of Breakfast Consumed: 100 Percent of Lunch Consumed: 50 Percent of Dinner Consumed: 100 Mental Status Exam During interview pt is: alert and oriented, cooperative Appearance: appropriately dressed, other (obese) Eye contact is: fair Motor behavior is: tremor, other (walks with cane) Speech: normal in rate, rhythm & volume Affect: depressed Mood is: depressed, anxious Thought process: goal directed, clear, coherent Thought content: reality based without delusions Suicidal thought are: denied (on in the context of command hallucinations, at home they tell her to kill herself or they are going to kill her), Plan: denied (grandfather's voice tells her to harm herself), Intent: denied (reports no desire to act on command auditory hallucinations) Homicidal thoughts are: denied Hallucinations: auditory (hears grandfather's and mother's voice) Cognition: memory grossly intact, attention grossly intact, language grossly intact Intelligence estimated to be: average Insight: impaired Judgement: impaired Impression Taper off of the aripiprazole completed, and started a taper off of Navane. Patient is also requesting to come off of escitalopram as she does not feel it has been helpful. She is tolerating these medication changes well, but remains depressed with auditory hallucinations. She is working in groups and benefiting from treatment here, and we are planning to pursue TMS after discharge from the hospital. She requires continued inpatient treatment due to the need for inpatient support throughout the process of changing/discontinuing medications, as she generally decompensates with change, and her ongoing command hallucinations to harm herself. She is able to contract for safety inside the hospital but not outside. Plan (1) Schizoaffective disorder, depressive type 06/18 - has been on numerous medications as an outpatient, with limited efficacy , and significant side effect concern, tardive dyskinesia and metabolic syndrome. Discussed her case with TEODORO Arce, and we will attempt to taper her off additional medications, while pursuing outpatient TMS. - Current psychotropic medications include lamotrigine 150 mg daily, mirtazapine 30 mg daily at bedtime, desmopressin 0.2 mg daily every other night , clonazepam 0.5 mg 3 times a day plus once daily when necessary, metformin 1000 mg twice a day, thiothixene 10 mg 4 times a day, aripiprazole 30 mg daily, and escitalopram 20 mg daily. The patient feels that mirtazapine is the most helpful medication, and also thinks she gets benefit from clonazepam, thiothixene and lamotrigine. She does not think that aripiprazole has been helpful, and is not sure if escitalopram is helpful. We will start by decreasing her aripiprazole 20 mg daily, with a goal to taper her off of it as long as she tolerates this well. - Every 15 minute checks for safety, encourage participation in unit groups and therapy, work on healthy coping skills and discharge safety plan. - Coordinate with outpatient providers, family meeting as appropriate. - Fasting lipid profile and glucose last checked 01/15/2017, and were within normal limits. 06/19 - Will continue dose of Abilify 20mg for tomorrow morning as well, then consider further taper depending on patient's response. - Continue other medications as above. Navane dosing changed to patient's home dosing times of 10mg at lunch, 10mg at dinner, and 20mg HS. - Consider taper of Lexapro 20mg to discontinuation as well. - Family meeting as appropriate - Coordination of care with outpatient providers to include TMS with Dr. Espinal and Nikolay. - Continue to encourage participation in group therapy and activities while on the unit. 06/20 - Abilify to 10mg tomorrow morning as taper continues to discontinuation. - Navane 5mg BID prn added to account for possible worsening anxiety with medication changes. - Continue to encourage participation in groups. 06/21 - Received Abilify 10mg this AM. Will continue to taper during her admission. Navane 5mg BID prn was added to account for possible anxiety with medication adjustments. - Recommendations passed on would be to look at escitalopram as next effort in simplifying medication regimen. Pt feels mood is well controlled with Lamictal and may be able to tolerate discontinuation of escitalopram. - Continue to encourage group participation. 06/22 - received 2nd day of abilify 10am and will reduce to 5mg starting tomorrow, continue prn navane future goals may be reduction of lexapro (but leary given her obsessional worries of having caused harm ), she is slightly brighter today even though she reports more "depressed" may be less flattening on lowered abilify will need to watch as we approach true antidepressant doses 06/23 - DC Abilify - Will begin taper of Navane tomorrow. 06/24 - Taper Navane to 10 mg. TID 06/25 - Continue Navane at the lower dose, and may decrease further tomorrow. Decrease escitalopram to 15 mg daily at patient's request as she does not feel this medication has been helpful. (2) Hypothyroidism Continue home dose of levothyroxine 125 g daily. TSH on admission was normal at 0.771. (3) Diabetes mellitus type 2 Patient reports she's been diagnosed with diabetes, doesn't know what type, and doesn't follow her BGs. Her Hgb A1C is normal, and she eats a normal diet at home, and is requesting that here. Continue home dose of metformin. (4) Dyslipidemia Continue home dose of atorvastatin. (5) Class II obesity Encouraged daily exercise and healthy diet. (6) Hypertension Continue home dose of Cozaar. (7) Asthma Continue home dose of Singulair. Discharge / Aftercare Planning Primary Care Physician: Name: Dr Tam Therapist: Name: Lamar Miller Computer Analyst: Name: Ramiro Santo [place] Neurologist: Name: Dr. Westbrook [facility] [place] Date of Appointment: Jul 04, 2017 Time of Appointment: 3:00 Visit Code E&M Code: 97122 Inventory Assets Strengths: Extensive outpatient supports, compliance with treatment, good rapport with outpatient providers Needs: Improved coping skills, medication adjustments Risk Factors Assessment : Yes /single/: Yes Higher / Fall in social status: No Health problems: Yes Mental Health Diagnoses: Yes Substance use disorders: No Previous attempt: Yes Previous psychiatric stay: Yes Hopelessness: Yes Smoker: No Protective Factors Assessment Scientologist beliefs: Yes : No Responsible for young children: No Employed: No Stable relationships: Yes Supportive family: Yes Good rapport with provider: Yes Data Vital Signs Last 24 Hrs: Date Time Temp Pulse Resp B/P (MAP) Pulse Ox O2 Delivery O2 Flow Rate FiO2 06/25/17 06:56 36.6 67 16 130/76 67 123/79 Meds Administered Last 24 Hrs: Meds Administered (Past 24Hrs) Medications (Trade) Dose Ordered Sig/Christofer Route Start Time Stop Time Status Last Admin Dose Admin Thiothixene (Navane Cap) 10 mg HS PO 06/24/17 22:00 07/24/17 21:59 06/24/17 21:15 10 MG
[2017-06-25] MEDS: THIOTHIXENE 5 MG CAP PO SCH ×3 (11:23→21:43)
[2017-06-25 13:40] VITALS: Ht 165.1 cm; Wt 108.0 kg
[2017-06-25] MEDS: DESMOPRESSIN ACETATE 0.1 MG TAB PO SCH (21:42)
[2017-06-25] MEDS: ATORVASTATIN 20 MG TAB PO SCH (21:43)
[2017-06-25] MEDS: MONTELUKAST SOD 10 MG TAB PO SCH (21:44)
[2017-06-25] MEDS: MIRTAZAPINE TAB 15 MG TAB PO SCH (21:44)
[2017-06-26 06:55] VITALS: BP_SYST 121; BP_SYST 126; BP_DIAS 79; BP_DIAS 81; PULSE 63; PULSE 66; TEMP 36.8
[2017-06-26] MEDS: CLONAZEPAM 0.5 MG TAB PO SCH ×3 (09:04→21:20)
[2017-06-26] MEDS: LOSARTAN POTASSIUM 50 MG TAB PO SCH (09:05)
[2017-06-26] MEDS: LEVOTHYROXINE 125 MCG TAB PO SCH (09:05)
[2017-06-26] MEDS: ESTRADIOL 1 MG TAB PO SCH (09:05)
[2017-06-26] MEDS: METFORMIN HCL 500 MG TAB PO SCH ×2 (09:06→17:31)
[2017-06-26] MEDS: ESCITALOPRAM OXALATE 20 MG TAB PO SCH (09:08)
--- NOTE | 2017-06-26 11:03 | Psychiatric Progress Notes ---
Progress Note Date of Service Jun 26, 2017. Interval History Leisa Cross is a 46-year-old female admitted on Jun 18, 2017 at 14:59 with a history of schizoaffective disorder, depressed type. She was admitted on a 201 voluntary commitment due to increased command auditory hallucinations of her grandfather's voice telling her to harm herself as well as hearing calming words from her mother. Chief Complaint "I'm not doing very well today.". Subjective Patient was seen & assessed interval progress reviewed with Treatment Team. the patient says that she is depressed today, and having SI and command hallucinations to hurt herself. She feels in control, and no plan/intent to follow through. She rates her mood a 1/10 today, but it usually elevates to 4/ 10 after visitors in the evening. She met with her immigration case worker, Ramiro, today which helped her. She talked with him about a bad dream she had last night in which she had to give a book report to the class and was going too slowly. She was always an anxious person in school. She has not been able to push herself to any exercise in the last 2 days because of her anxiety. She is using her stress ball, constantly manipulating it during the interview. Staff reports that she did not attend some groups yesterday, which is unusual for her. She continues to deny visual hallucinations. She remains focused on getting TMS hoping that this will be the treatment that works for her depression. Review of Systems Constitutional: No fever, No chills, No sweats, No weight loss, No weakness, No fatigue, No problem reported ENT: No hearing loss, No unusual epistaxis, No nasal symptoms, No sore throat, No tinnitus, No dental problems, No trouble swallowing, No problem reported Respiratory: No cough, No sputum, No wheezing, No shortness of breath, No dyspnea on exertion, No dyspnea at rest, No hemoptysis, No problem reported Cardiovascular: No chest pain, No orthopnea, No PND, No edema, No claudication , No palpitations, No problem reported Abdomen: No pain, No nausea, No vomiting, No diarrhea, No constipation, No GI bleeding, No problem reported Musculoskeletal: + problem reported (walks with a cane) Neurologic: No memory loss, No paralysis, No weakness, No numbness/tingling, No vertigo, No balance problems, No problem reported Psychiatric: + depression symptoms, + anxiety Sleep Information Total Hours of Sleep: 8.25 Meal Information Percent of Breakfast Consumed: 100 Percent of Lunch Consumed: 90 Percent of Dinner Consumed: 90 Mental Status Exam During interview pt is: alert and oriented, cooperative Appearance: appropriately dressed, other (obese) Eye contact is: fair Motor behavior is: tremor, other (walks with cane) Speech: normal in rate, rhythm & volume Affect: depressed Mood is: depressed, anxious Thought process: goal directed, clear, coherent Thought content: reality based without delusions Suicidal thought are: present, Plan: denied (grandfather's voice tells her to harm herself), Intent: denied (reports no desire to act on command auditory hallucinations) Homicidal thoughts are: denied Hallucinations: auditory (hears grandfather's and mother's voice) Cognition: memory grossly intact, attention grossly intact, language grossly intact Intelligence estimated to be: average Insight: impaired Judgement: impaired Impression Her condition does seem to be deteriorating despite tapering of APM's that have not been working. She is anxious. We will continue to taper navane, and DC HS dose tonight, continuing other meds for now. She has been on multiple high dose meds over the year with little sustained improvement. She was able to stay out of the hospital for 2 years during a time when she was weaned off of Clozaril and onto Latuda. Plan (1) Schizoaffective disorder, depressive type 06/18 - has been on numerous medications as an outpatient, with limited efficacy , and significant side effect concern, tardive dyskinesia and metabolic syndrome. Discussed her case with TEODORO Arce, and we will attempt to taper her off additional medications, while pursuing outpatient TMS. - Current psychotropic medications include lamotrigine 150 mg daily, mirtazapine 30 mg daily at bedtime, desmopressin 0.2 mg daily every other night , clonazepam 0.5 mg 3 times a day plus once daily when necessary, metformin 1000 mg twice a day, thiothixene 10 mg 4 times a day, aripiprazole 30 mg daily, and escitalopram 20 mg daily. The patient feels that mirtazapine is the most helpful medication, and also thinks she gets benefit from clonazepam, thiothixene and lamotrigine. She does not think that aripiprazole has been helpful, and is not sure if escitalopram is helpful. We will start by decreasing her aripiprazole 20 mg daily, with a goal to taper her off of it as long as she tolerates this well. - Every 15 minute checks for safety, encourage participation in unit groups and therapy, work on healthy coping skills and discharge safety plan. - Coordinate with outpatient providers, family meeting as appropriate. - Fasting lipid profile and glucose last checked 01/15/2017, and were within normal limits. 06/19 - Will continue dose of Abilify 20mg for tomorrow morning as well, then consider further taper depending on patient's response. - Continue other medications as above. Navane dosing changed to patient's home dosing times of 10mg at lunch, 10mg at dinner, and 20mg HS. - Consider taper of Lexapro 20mg to discontinuation as well. - Family meeting as appropriate - Coordination of care with outpatient providers to include TMS with Dr. Espinal and Nikolay. - Continue to encourage participation in group therapy and activities while on the unit. 06/20 - Abilify to 10mg tomorrow morning as taper continues to discontinuation. - Navane 5mg BID prn added to account for possible worsening anxiety with medication changes. - Continue to encourage participation in groups. 06/21 - Received Abilify 10mg this AM. Will continue to taper during her admission. Navane 5mg BID prn was added to account for possible anxiety with medication adjustments. - Recommendations passed on would be to look at escitalopram as next effort in simplifying medication regimen. Pt feels mood is well controlled with Lamictal and may be able to tolerate discontinuation of escitalopram. - Continue to encourage group participation. 06/22 - received 2nd day of abilify 10am and will reduce to 5mg starting tomorrow, continue prn navane future goals may be reduction of lexapro (but leary given her obsessional worries of having caused harm ), she is slightly brighter today even though she reports more "depressed" may be less flattening on lowered abilify will need to watch as we approach true antidepressant doses 06/23 - DC Abilify - Will begin taper of Navane tomorrow. 06/24 - Taper Navane to 10 mg. TID 06/25 - Continue Navane at the lower dose, and may decrease further tomorrow. Decrease escitalopram to 15 mg daily at patient's request as she does not feel this medication has been helpful. 06/26 - DC Navane HS dose. Continue other meds. (2) Hypothyroidism Continue home dose of levothyroxine 125 g daily. TSH on admission was normal at 0.771. (3) Diabetes mellitus type 2 Patient reports she's been diagnosed with diabetes, doesn't know what type, and doesn't follow her BGs. Her Hgb A1C is normal, and she eats a normal diet at home, and is requesting that here. Continue home dose of metformin. (4) Dyslipidemia Continue home dose of atorvastatin. (5) Class II obesity Encouraged daily exercise and healthy diet. (6) Hypertension Continue home dose of Cozaar. (7) Asthma Continue home dose of Singulair. Discharge / Aftercare Planning Primary Care Physician: Name: [place] [facility] [place]iatrist: Name: Kassandra Hay [facility] Therapist: Name: Lamar Miller [employer] Orange Grower: Name: Lien ThomasonEnhanCV Date of Appointment: Jul 02, 2017 Time of Appointment: 10:45 a.m. Partial or Psych Rehab: Name: [facility] M[facility] Plate Layer: Name: Constantino Hester Neurologist: Name: Dr. Westbrook [facility] [place] of Appointment: Jul 04, 2017 Time of Appointment: 3:00 Other: Name of Appointment #1: Vera Ibarra Medication Management Date of Appointment #1: Jul 02, 2017 Time of Appointment #1: 8:30 a.m. Visit Code E&M Code: 44763 Inventory Assets Strengths: Extensive outpatient supports, compliance with treatment, good rapport with outpatient providers Needs: Improved coping skills, medication adjustments Risk Factors Assessment : Yes /single/: Yes Higher / Fall in social status: No Health problems: Yes Mental Health Diagnoses: Yes Substance use disorders: No Previous attempt: Yes Previous psychiatric stay: Yes Hopelessness: Yes Smoker: No Protective Factors Assessment Hindu beliefs: Yes : No Responsible for young children: No Employed: No Stable relationships: Yes Supportive family: Yes Good rapport with provider: Yes Data Vital Signs Last 24 Hrs: Date Time Temp Pulse Resp B/P (MAP) Pulse Ox O2 Delivery O2 Flow Rate FiO2 06/26/17 06:55 36.8 66 16 121/79 63 126/81 Meds Administered Last 24 Hrs: Meds Administered (Past 24Hrs) Medications (Trade) Dose Ordered Sig/Christofer Route Start Time Stop Time Status Last Admin Dose Admin Thiothixene (Navane Cap) 10 mg HS PO 06/24/17 22:00 07/24/17 21:59 06/25/17 21:43 10 MG Escitalopram Oxalate (Lexapro Tab) 15 mg DAILY PO 06/26/17 09:00 07/19/17 08:59 06/26/17 09:08 15 MG Lab Results Last 24 Hrs: 06/18/17 13:10 06/18/17 13:10 Test 06/18/17 12:29 06/18/17 12:45 06/18/17 13:10 06/19/17 08:42 Urine Test NEG (NEG) Urine Color YELLOW Urine Appearance CLEAR (CLEAR) Urine pH 5.5 (4.5-7.5) Urine Specific [place] 1.014 (1.000-1.030) Urine Protein NEG (NEG) Urine Glucose (UA) NEG (NEG) Urine Ketones NEG (NEG) Urine Occult Blood NEG (NEG) Urine Nitrite NEG (NEG) Urine Bilirubin NEG (NEG) Urine Urobilinogen NEG (NEG) Urine Leukocyte Esterase SMALL (NEG) Urine WBC (Auto) 1-5 /hpf (0-5) Urine RBC (Auto) 0-4 /hpf (0-4) Urine Hyaline Casts (Auto) 1-5 /lpf (0-5) Urine Epithelial Cells (Auto) 20-30 /lpf (0-5) Urine Bacteria (Auto) 3+ (NEG) Urine Opiates Screen NEG (NEG) Urine Methadone, Qualitative NEG (NEG) Urine Barbiturates NEG (NEG) Urine Phencyclidine (PCP) Level NEG (NEG) Ur Amphetamine/Methamphetamine NEG (NEG) MDMA (Ecstasy) Screen NEG (NEG) Urine Benzodiazepines Screen NEG (NEG) Urine Cocaine Metabolite NEG (NEG) Urine Marijuana (THC) NEG (NEG) Red Blood Count 4.61 M/uL (4.2-5.4) Mean Corpuscular Volume 80.7 fL (80-100) Mean Corpuscular Hemoglobin 27.8 pg (25-34) Mean Corpuscular Hemoglobin Concent 34.4 g/dl (32-36) RDW Standard Deviation 39.9 fL (36.4-46.3) RDW Coefficient of Variation 13.7 % (11.5-14.5) Mean Platelet Volume 8.7 fL (7.4-10.4) Anion Gap 7.0 mmol/L (3-11) Est Creatinine Clear Calc Drug Dose 147.5 ml/min Estimated GFR () 127.1 Estimated GFR (Non- 109.6 BUN/Creatinine Ratio 24.1 (10-20) Calcium Level 8.7 mg/dl (8.5-10.1) Total Bilirubin 0.3 mg/dl (0.2-1) Direct Bilirubin 0.1 mg/dl (0-0.2) Aspartate Amino Transf (AST/SGOT) 12 U/L (15-37) Alanine Aminotransferase (ALT/SGPT) 27 U/L (12-78) Alkaline Phosphatase 86 U/L (45-117) Total Protein 7.1 gm/dl (6.4-8.2) Albumin 3.9 gm/dl (3.4-5.0) Thyroid Stimulating Hormone (TSH) 0.771 uIu/ml (0.300-4.500) Salicylates Level < 1.7 mg/dl (2.8-20) Acetaminophen Level < 2 ug/ml (10-30) Ethyl Alcohol mg/dL < 3.0 mg/dl (0-3) Bedside Glucose 108 mg/dl (70-90)
[2017-06-26] MEDS: THIOTHIXENE 5 MG CAP PO SCH ×2 (12:13→16:21)
[2017-06-26] MEDS: DESMOPRESSIN ACETATE 0.1 MG TAB PO SCH (21:20)
[2017-06-26] MEDS: MIRTAZAPINE TAB 15 MG TAB PO SCH (21:20)
[2017-06-26] MEDS: ATORVASTATIN 20 MG TAB PO SCH (21:20)
[2017-06-26] MEDS: MONTELUKAST SOD 10 MG TAB PO SCH (21:20)
[2017-06-27 06:55] VITALS: BP_SYST 125; BP_SYST 132; BP_DIAS 81; BP_DIAS 82; PULSE 66; PULSE 68; TEMP 36.7
[2017-06-27] MEDS: METFORMIN HCL 500 MG TAB PO SCH ×2 (08:21→17:17)
[2017-06-27] MEDS: THIOTHIXENE 5 MG CAP PO PRN (08:21)
[2017-06-27] MEDS: LEVOTHYROXINE 125 MCG TAB PO SCH (08:21)
[2017-06-27] MEDS: ESTRADIOL 1 MG TAB PO SCH (08:21)
[2017-06-27] MEDS: LOSARTAN POTASSIUM 50 MG TAB PO SCH (08:22)
[2017-06-27] MEDS: CLONAZEPAM 0.5 MG TAB PO SCH ×3 (08:22→21:24)
[2017-06-27] MEDS: ESCITALOPRAM OXALATE 20 MG TAB PO SCH (08:22)
--- NOTE | 2017-06-27 09:33 | Psychiatric Progress Notes ---
Progress Note Date of Service Jun 27, 2017. Interval History Leisa Cross is a 46-year-old female admitted on Jun 18, 2017 at 14:59 with a history of schizoaffective disorder, depressed type. She was admitted on a 201 voluntary commitment due to increased command auditory hallucinations of her grandfather's voice telling her to harm herself as well as hearing calming words from her mother. Chief Complaint "My depression is a little better.". Subjective Patient was seen & assessed interval progress reviewed with Treatment Team. Despite a small reduction in Lexapro, the patient says that her mood is a little better. Hallucinations of grandfather's voice telling her to kill herself persist. She had a visit from her case assistant Ramiro yesterday, which she enjoyed, but her airfield operations specialist Kacie visit, which did not go as well. Leisa says that Kacie keeps on her about diet soda being bad, but doesn't acknowledge that she isn't drinking regular soda and is trying to cut back. She also doesn't like that Kacie pressures her to talk more when they go walking at the more, but Leisa is wholly focused on her walking and the anxiety she has in public places when they are there, which she doesn't think Kacie understands. She does, however, feel like Kacie supports her which she appreciates. Leisa does not want to commit suicide and feels in control and not at risk of acting on command hallucinations. She was able to get on the exercise bike yesterday which she feels good about and plans to put an hour in today, which is what she does at home. She reports poor sleep last night, having some difficulty falling asleep, and was awake at 0300. She continues to deny vis hallucinations. Review of Systems Constitutional: No fever, No chills, No sweats, No weight loss, No weakness, No fatigue, No problem reported ENT: No hearing loss, No unusual epistaxis, No nasal symptoms, No sore throat, No tinnitus, No dental problems, No trouble swallowing, No problem reported Respiratory: No cough, No sputum, No wheezing, No shortness of breath, No dyspnea on exertion, No dyspnea at rest, No hemoptysis, No problem reported Cardiovascular: No chest pain, No orthopnea, No PND, No edema, No claudication , No palpitations, No problem reported Abdomen: No pain, No nausea, No vomiting, No diarrhea, No constipation, No GI bleeding, No problem reported Musculoskeletal: + problem reported (walks with a cane for stability) Neurologic: No memory loss, No paralysis, No weakness, No numbness/tingling, No vertigo, No balance problems, No problem reported Psychiatric: + depression symptoms, + anxiety, + insomnia Integumentary: No rash, No itch, No new/changing skin lesions, No color change , No bleeding, No problem reported Sleep Information Total Hours of Sleep: 7.75 Meal Information Percent of Breakfast Consumed: 100 Percent of Lunch Consumed: 70 Percent of Dinner Consumed: 100 Mental Status Exam During interview pt is: alert and oriented, cooperative Appearance: appropriately dressed, other (obese) Eye contact is: fair Motor behavior is: tremor, other (walks with cane) Speech: normal in rate, rhythm & volume Affect: depressed Mood is: depressed, anxious Thought process: goal directed, clear, coherent Thought content: reality based without delusions Suicidal thought are: present, Plan: denied (grandfather's voice tells her to harm herself), Intent: denied (reports no desire to act on command auditory hallucinations) Homicidal thoughts are: denied Hallucinations: auditory (hears grandfather's and mother's voice) Cognition: memory grossly intact, attention grossly intact, language grossly intact Intelligence estimated to be: average Insight: impaired Judgement: impaired Impression Small variations to condition, today saying depression is a little better, but continues with command hallucinations. Will continue to taper Navane to 5 mg TID and cut prn to 2.5 mg. BID. Will continue other meds. Could consider increasing lamictal to 200 mg. for added mood stabilization. Anniversary of mother's is approaching, and will likely continue to require inpatient care are we make some relatively broad medication adjustment. Plan (1) Schizoaffective disorder, depressive type / - has been on numerous medications as an outpatient, with limited efficacy , and significant side effect concern, tardive dyskinesia and metabolic syndrome. Discussed her case with TEODORO Arce, and we will attempt to taper her off additional medications, while pursuing outpatient TMS. - Current psychotropic medications include lamotrigine 150 mg daily, mirtazapine 30 mg daily at bedtime, desmopressin 0.2 mg daily every other night , clonazepam 0.5 mg 3 times a day plus once daily when necessary, metformin 1000 mg twice a day, thiothixene 10 mg 4 times a day, aripiprazole 30 mg daily, and escitalopram 20 mg daily. The patient feels that mirtazapine is the most helpful medication, and also thinks she gets benefit from clonazepam, thiothixene and lamotrigine. She does not think that aripiprazole has been helpful, and is not sure if escitalopram is helpful. We will start by decreasing her aripiprazole 20 mg daily, with a goal to taper her off of it as long as she tolerates this well. - Every 15 minute checks for safety, encourage participation in unit groups and therapy, work on healthy coping skills and discharge safety plan. - Coordinate with outpatient providers, family meeting as appropriate. - Fasting lipid profile and glucose last checked 01/15/2017, and were within normal limits. 06/19 - Will continue dose of Abilify 20mg for tomorrow morning as well, then consider further taper depending on patient's response. - Continue other medications as above. Navane dosing changed to patient's home dosing times of 10mg at lunch, 10mg at dinner, and 20mg HS. - Consider taper of Lexapro 20mg to discontinuation as well. - Family meeting as appropriate - Coordination of care with outpatient providers to include TMS with Dr. Espinal and Nikolay. - Continue to encourage participation in group therapy and activities while on the unit. 06/20 - Abilify to 10mg tomorrow morning as taper continues to discontinuation. - Navane 5mg BID prn added to account for possible worsening anxiety with medication changes. - Continue to encourage participation in groups. 06/21 - Received Abilify 10mg this AM. Will continue to taper during her admission. Navane 5mg BID prn was added to account for possible anxiety with medication adjustments. - Recommendations passed on would be to look at escitalopram as next effort in simplifying medication regimen. Pt feels mood is well controlled with Lamictal and may be able to tolerate discontinuation of escitalopram. - Continue to encourage group participation. 06/22 - received 2nd day of abilify 10am and will reduce to 5mg starting tomorrow, continue prn navane future goals may be reduction of lexapro (but leary given her obsessional worries of having caused harm ), she is slightly brighter today even though she reports more "depressed" may be less flattening on lowered abilify will need to watch as we approach true antidepressant doses 06/23 - DC Abilify - Will begin taper of Navane tomorrow. 06/24 - Taper Navane to 10 mg. TID 06/25 - Continue Navane at the lower dose, and may decrease further tomorrow. Decrease escitalopram to 15 mg daily at patient's request as she does not feel this medication has been helpful. 06/26 - DC Navane HS dose. Continue other meds. 06/27 - Reduce Navane to 5 mg. TID and prn to 2.5 BID prn (2) Hypothyroidism Continue home dose of levothyroxine 125 g daily. TSH on admission was normal at 0.771. (3) Diabetes mellitus type 2 Patient reports she's been diagnosed with diabetes, doesn't know what type, and doesn't follow her BGs. Her Hgb A1C is normal, and she eats a normal diet at home, and is requesting that here. Continue home dose of metformin. (4) Dyslipidemia Continue home dose of atorvastatin. (5) Class II obesity Encouraged daily exercise and healthy diet. (6) Hypertension Continue home dose of Cozaar. (7) Asthma Continue home dose of Singulair. Discharge / Aftercare Planning Primary Care Physician: Name: Dr. Tam, Internal Medicine, [facility] [place] of Appointment: Jul 09, 2017 Time of Appointment: 4:00 p.m. Psychiatrist: Name: Kassandra Hay, [facility] Date of Appointment: Jul 02, 2017 Time of Appointment: 2:40 p.m. Therapist: Name: Lamar Miller, [facility] Date of Appointment: Jul 04, 2017 Time of Appointment: 9 a.m. Select Banker: Name: Constantino Thomason [email or web address] Date of Appointment: Jul 02, 2017 Time of Appointment: 10:45 a.m. Partial or Psych Rehab: Name: [facility] Date of Appointment: Jul 03, 2017 Time of Appointment: 11:30 a.m. Gasket Former: Name: Constantino Hester Date of Appointment: Jul 03, 2017 Time of Appointment: 9 a.m. Neurologist: Name: Dr. Westbrook [facility] [place] Date of Appointment: Jul 04, 2017 Time of Appointment: 3:00 Other: Name of Appointment #1: Vera Ibarra Tom Medication Management Date of Appointment #1: Jul 02, 2017 Time of Appointment #1: 8:30 a.m. Visit Code E&M Code: 71417 Inventory Assets Strengths: Extensive outpatient supports, compliance with treatment, good rapport with outpatient providers Needs: Improved coping skills, medication adjustments Risk Factors Assessment : Yes /single/: Yes Higher / Fall in social status: No Health problems: Yes Mental Health Diagnoses: Yes Substance use disorders: No Previous attempt: Yes Previous psychiatric stay: Yes Hopelessness: Yes Smoker: No Protective Factors Assessment Hinduism beliefs: Yes : No Responsible for young children: No Employed: No Stable relationships: Yes Supportive family: Yes Good rapport with provider: Yes Data Vital Signs Last 24 Hrs: Date Time Temp Pulse Resp B/P (MAP) Pulse Ox O2 Delivery O2 Flow Rate FiO2 06/27/17 06:55 36.7 66 16 125/81 68 132/82 Meds Administered Last 24 Hrs: Meds Administered (Past 24Hrs) Medications (Trade) Dose Ordered Sig/Christofer Route Start Time Stop Time Status Last Admin Dose Admin Escitalopram Oxalate (Lexapro Tab) 15 mg DAILY PO 06/26/17 09:00 07/19/17 08:59 06/27/17 08:22 15 MG Lab Results Last 24 Hrs: 06/18/17 13:10 06/18/17 13:10 Test 06/18/17 12:29 06/18/17 12:45 06/18/17 13:10 06/19/17 08:42 Urine Test NEG (NEG) Urine Color YELLOW Urine Appearance CLEAR (CLEAR) Urine pH 5.5 (4.5-7.5) Urine Specific [place] 1.014 (1.000-1.030) Urine Protein NEG (NEG) Urine Glucose (UA) NEG (NEG) Urine Ketones NEG (NEG) Urine Occult Blood NEG (NEG) Urine Nitrite NEG (NEG) Urine Bilirubin NEG (NEG) Urine Urobilinogen NEG (NEG) Urine Leukocyte Esterase SMALL (NEG) Urine WBC (Auto) 1-5 /hpf (0-5) Urine RBC (Auto) 0-4 /hpf (0-4) Urine Hyaline Casts (Auto) 1-5 /lpf (0-5) Urine Epithelial Cells (Auto) 20-30 /lpf (0-5) Urine Bacteria (Auto) 3+ (NEG) Urine Opiates Screen NEG (NEG) Urine Methadone, Qualitative NEG (NEG) Urine Barbiturates NEG (NEG) Urine Phencyclidine (PCP) Level NEG (NEG) Ur Amphetamine/Methamphetamine NEG (NEG) MDMA (Ecstasy) Screen NEG (NEG) Urine Benzodiazepines Screen NEG (NEG) Urine Cocaine Metabolite NEG (NEG) Urine Marijuana (THC) NEG (NEG) Red Blood Count 4.61 M/uL (4.2-5.4) Mean Corpuscular Volume 80.7 fL (80-100) Mean Corpuscular Hemoglobin 27.8 pg (25-34) Mean Corpuscular Hemoglobin Concent 34.4 g/dl (32-36) RDW Standard Deviation 39.9 fL (36.4-46.3) RDW Coefficient of Variation 13.7 % (11.5-14.5) Mean Platelet Volume 8.7 fL (7.4-10.4) Anion Gap 7.0 mmol/L (3-11) Est Creatinine Clear Calc Drug Dose 147.5 ml/min Estimated GFR () 127.1 Estimated GFR (Non- 109.6 BUN/Creatinine Ratio 24.1 (10-20) Calcium Level 8.7 mg/dl (8.5-10.1) Total Bilirubin 0.3 mg/dl (0.2-1) Direct Bilirubin 0.1 mg/dl (0-0.2) Aspartate Amino Transf (AST/SGOT) 12 U/L (15-37) Alanine Aminotransferase (ALT/SGPT) 27 U/L (12-78) Alkaline Phosphatase 86 U/L (45-117) Total Protein 7.1 gm/dl (6.4-8.2) Albumin 3.9 gm/dl (3.4-5.0) Thyroid Stimulating Hormone (TSH) 0.771 uIu/ml (0.300-4.500) Salicylates Level < 1.7 mg/dl (2.8-20) Acetaminophen Level < 2 ug/ml (10-30) Ethyl Alcohol mg/dL < 3.0 mg/dl (0-3) Bedside Glucose 108 mg/dl (70-90)
[2017-06-27] MEDS ORDERED: THIOTHIXENE 5 MG CAP PO PRN (09:45)
--- NOTE | 2017-06-27 10:13 | Psych Management Progress Note ---
Psychiatry Miscellaneous Date of Service: Jun 27, 2017. Patient seen, MS assessed. Rates mood as 1-07/12. Encouraged cooperation with care and treatment plan as outlined by allied health prescriber. She appears flat and continues to endorse hardik nguyen, states prn antipsychotic is helpful and her main focus in on anniversary of mother's on 06/30 and getting TMS.
[2017-06-27] MEDS: THIOTHIXENE 5 MG CAP PO SCH ×2 (14:31→21:24)
[2017-06-27] MEDS: ATORVASTATIN 20 MG TAB PO SCH (21:24)
[2017-06-27] MEDS: MIRTAZAPINE TAB 15 MG TAB PO SCH (21:24)
[2017-06-27] MEDS: DESMOPRESSIN ACETATE 0.1 MG TAB PO SCH (21:24)
[2017-06-27] MEDS: MONTELUKAST SOD 10 MG TAB PO SCH (21:24)
[2017-06-28 06:49] VITALS: BP_SYST 124; BP_SYST 127; BP_DIAS 74; BP_DIAS 77; PULSE 69; PULSE 72; TEMP 36.8
[2017-06-28] MEDS: LEVOTHYROXINE 125 MCG TAB PO SCH (08:25)
[2017-06-28] MEDS: LOSARTAN POTASSIUM 50 MG TAB PO SCH (08:26)
[2017-06-28] MEDS: ESTRADIOL 1 MG TAB PO SCH (08:27)
[2017-06-28] MEDS: CLONAZEPAM 0.5 MG TAB PO SCH ×3 (08:28→21:55)
[2017-06-28] MEDS: METFORMIN HCL 500 MG TAB PO SCH ×2 (08:28→17:36)
[2017-06-28] MEDS: ESCITALOPRAM OXALATE 20 MG TAB PO SCH (08:33)
[2017-06-28] MEDS: THIOTHIXENE 5 MG CAP PO SCH ×2 (08:34→14:43)
[2017-06-28] MEDS ORDERED: THIOTHIXENE 1 MG CAP PO PRN (09:00)
--- NOTE | 2017-06-28 09:29 | Psychiatric Progress Notes ---
Progress Note Date of Service Jun 28, 2017. Interval History Leisa Cross is a 46-year-old female admitted on Jun 18, 2017 at 14:59 with a history of schizoaffective disorder, depressed type. She was admitted on a 201 voluntary commitment due to increased command auditory hallucinations of her grandfather's voice telling her to harm herself as well as hearing calming words from her mother. Chief Complaint "I used to think that nights were worse, but now I think its mornings. ". Subjective Patient was seen & assessed interval progress reviewed with Treatment Team. The patient made good on her promise to be on the exercise bike for an hour yesterday, and is proud of herself. She notes that her mornings are usually bad and mood improves as the day goes on. Command hallucinations remain, but no worse than usual. "I'm just sad, depressed and hear voices.". She is still hopeful that TMS will be approved and will help her depression. She had a visit from her rv body mechanic yesterday which she enjoyed. Reports some difficulty sleeping last night, but nursing observed her to sleep for 8 hours. Wants to continue to try to lose weight, but finds comfort in eating chocolate and struggling to give it up. Asked that we call her brother Shon together which we did but he did not pick up driver and his mailbox was full. We agreed to try again tomorrow. Review of Systems Constitutional: No fever, No chills, No sweats, No weight loss, No weakness, No fatigue, No problem reported ENT: No hearing loss, No unusual epistaxis, No nasal symptoms, No sore throat, No tinnitus, No dental problems, No trouble swallowing, No problem reported Respiratory: No cough, No sputum, No wheezing, No shortness of breath, No dyspnea on exertion, No dyspnea at rest, No hemoptysis, No problem reported Cardiovascular: No chest pain, No orthopnea, No PND, No edema, No claudication , No palpitations, No problem reported Abdomen: No pain, No nausea, No vomiting, No diarrhea, No constipation, No GI bleeding, No problem reported Musculoskeletal: + problem reported (cane for ambulation) Neurologic: No memory loss, No paralysis, No weakness, No numbness/tingling, No vertigo, No balance problems, No problem reported Psychiatric: + depression symptoms, + anxiety Sleep Information Total Hours of Sleep: 8.00 Meal Information Percent of Breakfast Consumed: 100 Percent of Lunch Consumed: 75 Percent of Dinner Consumed: 100 Mental Status Exam During interview pt is: alert and oriented, cooperative Appearance: appropriately dressed, other (obese) Eye contact is: fair Motor behavior is: tremor, other (walks with cane) Speech: normal in rate, rhythm & volume Affect: depressed Mood is: depressed, anxious Thought process: goal directed, clear, coherent Thought content: reality based without delusions Suicidal thought are: present, Plan: denied (grandfather's voice tells her to harm herself), Intent: denied (reports no desire to act on command auditory hallucinations) Homicidal thoughts are: denied Hallucinations: auditory (hears grandfather's and mother's voice) Cognition: memory grossly intact, attention grossly intact, language grossly intact Intelligence estimated to be: average Insight: impaired Judgement: impaired Impression Condition remains relatively static despite tapering antipsychotics. Her mood is diurnal, but able to feel happier in the evening. Pharmacy not able to supply Navane 2.5 so will change to 2 mg BID prn. Today we will DC HS dose of Navane but continue 5 mg. AM and mid afternoon. Would like to try to to taper remeron if she tolerates the loss of the antipsychotics. Would also like to see her off of scheduled BZD, but she is afraid of this so will not attempt now. Plan (1) Schizoaffective disorder, depressive type 06/18 - has been on numerous medications as an outpatient, with limited efficacy , and significant side effect concern, tardive dyskinesia and metabolic syndrome. Discussed her case with TEODORO Arce, and we will attempt to taper her off additional medications, while pursuing outpatient TMS. - Current psychotropic medications include lamotrigine 150 mg daily, mirtazapine 30 mg daily at bedtime, desmopressin 0.2 mg daily every other night , clonazepam 0.5 mg 3 times a day plus once daily when necessary, metformin 1000 mg twice a day, thiothixene 10 mg 4 times a day, aripiprazole 30 mg daily, and escitalopram 20 mg daily. The patient feels that mirtazapine is the most helpful medication, and also thinks she gets benefit from clonazepam, thiothixene and lamotrigine. She does not think that aripiprazole has been helpful, and is not sure if escitalopram is helpful. We will start by decreasing her aripiprazole 20 mg daily, with a goal to taper her off of it as long as she tolerates this well. - Every 15 minute checks for safety, encourage participation in unit groups and therapy, work on healthy coping skills and discharge safety plan. - Coordinate with outpatient providers, family meeting as appropriate. - Fasting lipid profile and glucose last checked 01/15/2017, and were within normal limits. 06/19 - Will continue dose of Abilify 20mg for tomorrow morning as well, then consider further taper depending on patient's response. - Continue other medications as above. Navane dosing changed to patient's home dosing times of 10mg at lunch, 10mg at dinner, and 20mg HS. - Consider taper of Lexapro 20mg to discontinuation as well. - Family meeting as appropriate - Coordination of care with outpatient providers to include TMS with Dr. Espinal and Nikolay. - Continue to encourage participation in group therapy and activities while on the unit. 06/20 - Abilify to 10mg tomorrow morning as taper continues to discontinuation. - Navane 5mg BID prn added to account for possible worsening anxiety with medication changes. - Continue to encourage participation in groups. 06/21 - Received Abilify 10mg this AM. Will continue to taper during her admission. Navane 5mg BID prn was added to account for possible anxiety with medication adjustments. - Recommendations passed on would be to look at escitalopram as next effort in simplifying medication regimen. Pt feels mood is well controlled with Lamictal and may be able to tolerate discontinuation of escitalopram. - Continue to encourage group participation. 06/22 - received 2nd day of abilify 10am and will reduce to 5mg starting tomorrow, continue prn navane future goals may be reduction of lexapro (but leary given her obsessional worries of having caused harm ), she is slightly brighter today even though she reports more "depressed" may be less flattening on lowered abilify will need to watch as we approach true antidepressant doses 06/23 - DC Abilify - Will begin taper of Navane tomorrow. 06/24 - Taper Navane to 10 mg. TID 06/25 - Continue Navane at the lower dose, and may decrease further tomorrow. Decrease escitalopram to 15 mg daily at patient's request as she does not feel this medication has been helpful. 06/26 - DC Navane HS dose. Continue other meds. 06/27 - Reduce Navane to 5 mg. TID and prn to 2.5 BID prn 06/28 - Reduce Navane to 2 mg. AM and afternoon, DC HS dose (2) Hypothyroidism Continue home dose of levothyroxine 125 g daily. TSH on admission was normal at 0.771. (3) Diabetes mellitus type 2 Patient reports she's been diagnosed with diabetes, doesn't know what type, and doesn't follow her BGs. Her Hgb A1C is normal, and she eats a normal diet at home, and is requesting that here. Continue home dose of metformin. (4) Dyslipidemia Continue home dose of atorvastatin. (5) Class II obesity Encouraged daily exercise and healthy diet. (6) Hypertension Continue home dose of Cozaar. (7) Asthma Continue home dose of Singulair. Discharge / Aftercare Planning Primary Care Physician: Name: Dr. Tam, Internal Medicine, [facility] [place] of Appointment: Jul 09, 2017 Time of Appointment: 4:00 p.m. Psychiatrist: Name: Kassandra Hay [employer] Date of Appointment: Jul 02, 2017 Time of Appointment: 2:40 p.m. Therapist: Name: Lamar Miller [employer] Date of Appointment: Jul 04, 2017 Time of Appointment: 9 a.m. Tube And Rod Straightener: Name: Ramiro Santo [employer] Date of Appointment: Jul 02, 2017 Time of Appointment: 10:45 a.m. Partial or Psych Rehab: Name: [facility] Date of Appointment: Jul 03, 2017 Time of Appointment: 11:30 a.m. Oil Burner Repairer: Name: Constantino Hester [employer] Date of Appointment: Jul 03, 2017 Time of Appointment: 9 a.m. Neurologist: Name: Dr. Westbrook [facility] [place] Date of Appointment: Jul 04, 2017 Time of Appointment: 3:00 Other: Name of Appointment #1: Vera Ibarra Medication Management Date of Appointment #1: Jul 02, 2017 Time of Appointment #1: 8:30 a.m. Visit Code E&M Code: 49256 Inventory Assets Strengths: Extensive outpatient supports, compliance with treatment, good rapport with outpatient providers Needs: Improved coping skills, medication adjustments Risk Factors Assessment : Yes /single/: Yes Higher / Fall in social status: No Health problems: Yes Mental Health Diagnoses: Yes Substance use disorders: No Previous attempt: Yes Previous psychiatric stay: Yes Hopelessness: Yes Smoker: No Protective Factors Assessment Jew beliefs: Yes : No Responsible for young children: No Employed: No Stable relationships: Yes Supportive family: Yes Good rapport with provider: Yes Data Vital Signs Last 24 Hrs: Date Time Temp Pulse Resp B/P (MAP) Pulse Ox O2 Delivery O2 Flow Rate FiO2 06/28/17 06:49 36.8 69 18 124/77 72 127/74 Meds Administered Last 24 Hrs: Meds Administered (Past 24Hrs) Medications (Trade) Dose Ordered Sig/Christofer Route Start Time Stop Time Status Last Admin Dose Admin Thiothixene (Navane Cap) 5 mg TID PO 06/27/17 14:00 07/27/17 13:59 06/28/17 08:34 5 MG Lab Results Last 24 Hrs: 06/18/17 13:10 06/18/17 13:10 Test 06/18/17 12:29 06/18/17 12:45 06/18/17 13:10 06/19/17 08:42 Urine Test NEG (NEG) Urine Color YELLOW Urine Appearance CLEAR (CLEAR) Urine pH 5.5 (4.5-7.5) Urine Specific [place] 1.014 (1.000-1.030) Urine Protein NEG (NEG) Urine Glucose (UA) NEG (NEG) Urine Ketones NEG (NEG) Urine Occult Blood NEG (NEG) Urine Nitrite NEG (NEG) Urine Bilirubin NEG (NEG) Urine Urobilinogen NEG (NEG) Urine Leukocyte Esterase SMALL (NEG) Urine WBC (Auto) 1-5 /hpf (0-5) Urine RBC (Auto) 0-4 /hpf (0-4) Urine Hyaline Casts (Auto) 1-5 /lpf (0-5) Urine Epithelial Cells (Auto) 20-30 /lpf (0-5) Urine Bacteria (Auto) 3+ (NEG) Urine Opiates Screen NEG (NEG) Urine Methadone, Qualitative NEG (NEG) Urine Barbiturates NEG (NEG) Urine Phencyclidine (PCP) Level NEG (NEG) Ur Amphetamine/Methamphetamine NEG (NEG) MDMA (Ecstasy) Screen NEG (NEG) Urine Benzodiazepines Screen NEG (NEG) Urine Cocaine Metabolite NEG (NEG) Urine Marijuana (THC) NEG (NEG) Red Blood Count 4.61 M/uL (4.2-5.4) Mean Corpuscular Volume 80.7 fL (80-100) Mean Corpuscular Hemoglobin 27.8 pg (25-34) Mean Corpuscular Hemoglobin Concent 34.4 g/dl (32-36) RDW Standard Deviation 39.9 fL (36.4-46.3) RDW Coefficient of Variation 13.7 % (11.5-14.5) Mean Platelet Volume 8.7 fL (7.4-10.4) Anion Gap 7.0 mmol/L (3-11) Est Creatinine Clear Calc Drug Dose 147.5 ml/min Estimated GFR () 127.1 Estimated GFR (Non- 109.6 BUN/Creatinine Ratio 24.1 (10-20) Calcium Level 8.7 mg/dl (8.5-10.1) Total Bilirubin 0.3 mg/dl (0.2-1) Direct Bilirubin 0.1 mg/dl (0-0.2) Aspartate Amino Transf (AST/SGOT) 12 U/L (15-37) Alanine Aminotransferase (ALT/SGPT) 27 U/L (12-78) Alkaline Phosphatase 86 U/L (45-117) Total Protein 7.1 gm/dl (6.4-8.2) Albumin 3.9 gm/dl (3.4-5.0) Thyroid Stimulating Hormone (TSH) 0.771 uIu/ml (0.300-4.500) Salicylates Level < 1.7 mg/dl (2.8-20) Acetaminophen Level < 2 ug/ml (10-30) Ethyl Alcohol mg/dL < 3.0 mg/dl (0-3) Bedside Glucose 108 mg/dl (70-90)
[2017-06-28] MEDS: DESMOPRESSIN ACETATE 0.1 MG TAB PO SCH (21:55)
[2017-06-28] MEDS: MONTELUKAST SOD 10 MG TAB PO SCH (21:55)
[2017-06-28] MEDS: ATORVASTATIN 20 MG TAB PO SCH (21:55)
[2017-06-28] MEDS: MIRTAZAPINE TAB 15 MG TAB PO SCH (21:55)
[2017-06-29 06:42] VITALS: BP_SYST 123; BP_SYST 128; BP_DIAS 80; BP_DIAS 81; PULSE 75; PULSE 76; TEMP 36.8
[2017-06-29] MEDS: LEVOTHYROXINE 125 MCG TAB PO SCH (08:08)
[2017-06-29] MEDS: METFORMIN HCL 500 MG TAB PO SCH ×2 (08:50→17:44)
[2017-06-29] MEDS: LOSARTAN POTASSIUM 50 MG TAB PO SCH (08:50)
[2017-06-29] MEDS: ESTRADIOL 1 MG TAB PO SCH (08:50)
[2017-06-29] MEDS: ESCITALOPRAM OXALATE 20 MG TAB PO SCH (08:52)
[2017-06-29] MEDS: THIOTHIXENE 5 MG CAP PO SCH (08:53)
[2017-06-29] MEDS: CLONAZEPAM 0.5 MG TAB PO SCH ×3 (08:55→22:09)
--- NOTE | 2017-06-29 09:45 | Psychiatric Progress Notes ---
Progress Note Date of Service Jun 29, 2017. Interval History Leisa Cross is a 46-year-old female admitted on Jun 18, 2017 at 14:59 with a history of schizoaffective disorder, depressed type. She was admitted on a 201 voluntary commitment due to increased command auditory hallucinations of her grandfather's voice telling her to harm herself as well as hearing calming words from her mother. Chief Complaint "I have some questions. ". Subjective Patient was seen & assessed interval progress reviewed with Treatment Team. The patient continues to say that she wants to get off of meds that haven't been working. She lists remeron, lexapro and navane in particular. She was able, again yesterday, to get on the exercise bike for an hour which she is pleased by. Her mood remains depressed, worse in the AM rating it 2-3/10 today. It is about the anniversary of her mother's and she is hearing her mother's voice, talking to her but not telling her to hurt herself. She describes being more tearful yesterday with her depression, and continues to hear her grandfather's voice telling her to hurt herself. She asks again if we can call her brother to keep him informed of her treatment which we do but it goes directive voicemail. She denies any side effects as a result of tapering medications, and wants to continue to taper. Review of Systems Constitutional: No fever, No chills, No sweats, No weight loss, No weakness, No fatigue, No problem reported ENT: No hearing loss, No unusual epistaxis, No nasal symptoms, No sore throat, No tinnitus, No dental problems, No trouble swallowing, No problem reported Respiratory: No cough, No sputum, No wheezing, No shortness of breath, No dyspnea on exertion, No dyspnea at rest, No hemoptysis, No problem reported Cardiovascular: No chest pain, No orthopnea, No PND, No edema, No claudication , No palpitations, No problem reported Abdomen: No pain, No nausea, No vomiting, No diarrhea, No constipation, No GI bleeding, No problem reported Musculoskeletal: + problem reported (ambulates with a cane) Neurologic: No memory loss, No paralysis, No weakness, No numbness/tingling, No vertigo, No balance problems, No problem reported Psychiatric: + depression symptoms, + anxiety Sleep Information Total Hours of Sleep: 8.75 Meal Information Percent of Breakfast Consumed: 100 Percent of Lunch Consumed: 80 Percent of Dinner Consumed: 100 Mental Status Exam During interview pt is: alert and oriented, cooperative Appearance: appropriately dressed, other (obese) Eye contact is: fair Motor behavior is: tremor, other (walks with cane) Speech: normal in rate, rhythm & volume Affect: depressed Mood is: depressed, anxious Thought process: goal directed, clear, coherent Thought content: reality based without delusions Suicidal thought are: present, Plan: denied (grandfather's voice tells her to harm herself), Intent: denied (reports no desire to act on command auditory hallucinations) Homicidal thoughts are: denied Hallucinations: auditory (hears grandfather's and mother's voice) Cognition: memory grossly intact, attention grossly intact, language grossly intact Intelligence estimated to be: average Insight: impaired Judgement: impaired Impression Condition remains relatively static despite tapering antipsychotics. Her mood is diurnal, but able to feel happier in the evening. We will continue to taper Navane today dropping the frequency to twice a day. Plan (1) Schizoaffective disorder, depressive type 06/18 - has been on numerous medications as an outpatient, with limited efficacy , and significant side effect concern, tardive dyskinesia and metabolic syndrome. Discussed her case with TEODORO Arce, and we will attempt to taper her off additional medications, while pursuing outpatient TMS. - Current psychotropic medications include lamotrigine 150 mg daily, mirtazapine 30 mg daily at bedtime, desmopressin 0.2 mg daily every other night , clonazepam 0.5 mg 3 times a day plus once daily when necessary, metformin 1000 mg twice a day, thiothixene 10 mg 4 times a day, aripiprazole 30 mg daily, and escitalopram 20 mg daily. The patient feels that mirtazapine is the most helpful medication, and also thinks she gets benefit from clonazepam, thiothixene and lamotrigine. She does not think that aripiprazole has been helpful, and is not sure if escitalopram is helpful. We will start by decreasing her aripiprazole 20 mg daily, with a goal to taper her off of it as long as she tolerates this well. - Every 15 minute checks for safety, encourage participation in unit groups and therapy, work on healthy coping skills and discharge safety plan. - Coordinate with outpatient providers, family meeting as appropriate. - Fasting lipid profile and glucose last checked 01/15/2017, and were within normal limits. 06/19 - Will continue dose of Abilify 20mg for tomorrow morning as well, then consider further taper depending on patient's response. - Continue other medications as above. Navane dosing changed to patient's home dosing times of 10mg at lunch, 10mg at dinner, and 20mg HS. - Consider taper of Lexapro 20mg to discontinuation as well. - Family meeting as appropriate - Coordination of care with outpatient providers to include TMS with Dr. Espinal and Nikolay. - Continue to encourage participation in group therapy and activities while on the unit. 06/20 - Abilify to 10mg tomorrow morning as taper continues to discontinuation. - Navane 5mg BID prn added to account for possible worsening anxiety with medication changes. - Continue to encourage participation in groups. 06/21 - Received Abilify 10mg this AM. Will continue to taper during her admission. Navane 5mg BID prn was added to account for possible anxiety with medication adjustments. - Recommendations passed on would be to look at escitalopram as next effort in simplifying medication regimen. Pt feels mood is well controlled with Lamictal and may be able to tolerate discontinuation of escitalopram. - Continue to encourage group participation. 06/22 - received 2nd day of abilify 10am and will reduce to 5mg starting tomorrow, continue prn navane future goals may be reduction of lexapro (but leary given her obsessional worries of having caused harm ), she is slightly brighter today even though she reports more "depressed" may be less flattening on lowered abilify will need to watch as we approach true antidepressant doses 06/23 - DC Abilify - Will begin taper of Navane tomorrow. 06/24 - Taper Navane to 10 mg. TID 06/25 - Continue Navane at the lower dose, and may decrease further tomorrow. Decrease escitalopram to 15 mg daily at patient's request as she does not feel this medication has been helpful. 06/26 - DC Navane HS dose. Continue other meds. 06/27 - Reduce Navane to 5 mg. TID and prn to 2.5 BID prn 06/28 - Reduce Navane to 2 mg. AM and afternoon, DC HS dose (2) Hypothyroidism Continue home dose of levothyroxine 125 g daily. TSH on admission was normal at 0.771. (3) Diabetes mellitus type 2 Patient reports she's been diagnosed with diabetes, doesn't know what type, and doesn't follow her BGs. Her Hgb A1C is normal, and she eats a normal diet at home, and is requesting that here. Continue home dose of metformin. (4) Dyslipidemia Continue home dose of atorvastatin. (5) Class II obesity Encouraged daily exercise and healthy diet. (6) Hypertension Continue home dose of Cozaar. (7) Asthma Continue home dose of Singulair. Discharge / Aftercare Planning Primary Care Physician: Name: [place]. Tam, [place], [facility] [place]ment: Jul 09, 2017 Time of Appointment: 4:00 p.m. Psychiatrist: Name: Kassandra Hay [employer] Date of Appointment: Jul 02, 2017 Time of Appointment: 2:40 p.m. Therapist: Name: Lamar Miller [employer] Date of Appointment: Jul 04, 2017 Time of Appointment: 9 a.m. Treasury Specialist: Name: Ramiro Santo [employer] Date of Appointment: Jul 02, 2017 Time of Appointment: 10:45 a.m. Partial or Psych Rehab: Name: [facility] Date of Appointment: Jul 03, 2017 Time of Appointment: 11:30 a.m. Manufacturing Finance Manager: Name: Constantino Hester [employer] Date of Appointment: Jul 03, 2017 Time of Appointment: 9 a.m. Neurologist: Name: Dr. Westbrook [facility] [place] of Appointment: Jul 04, 2017 Time of Appointment: 3:00 Other: Name of Appointment #1: Vera Ibarra Medication Management Date of Appointment #1: Jul 02, 2017 Time of Appointment #1: 8:30 a.m. Visit Code E&M Code: 63440 Inventory Assets Strengths: Extensive outpatient supports, compliance with treatment, good rapport with outpatient providers Needs: Improved coping skills, medication adjustments Risk Factors Assessment : Yes /single/: Yes Higher / Fall in social status: No Health problems: Yes Mental Health Diagnoses: Yes Substance use disorders: No Previous attempt: Yes Previous psychiatric stay: Yes Hopelessness: Yes Smoker: No Protective Factors Assessment Mormon beliefs: Yes : No Responsible for young children: No Employed: No Stable relationships: Yes Supportive family: Yes Good rapport with provider: Yes Data Vital Signs Last 24 Hrs: Date Time Temp Pulse Resp B/P (MAP) Pulse Ox O2 Delivery O2 Flow Rate FiO2 06/29/17 06:42 36.8 76 16 128/80 75 123/81 Meds Administered Last 24 Hrs: Meds Administered (Past 24Hrs) Medications (Trade) Dose Ordered Sig/Christofer Route Start Time Stop Time Status Last Admin Dose Admin Thiothixene (Navane Cap) 5 mg TID PO 06/27/17 14:00 06/28/17 09:30 DC 06/28/17 08:34 5 MG Thiothixene (Navane Cap) 5 mg BID@0900,1400 PO 06/28/17 14:00 07/28/17 13:59 06/28/17 14:43 5 MG Lab Results Last 24 Hrs: 06/18/17 13:10 06/18/17 13:10 Test 06/18/17 12:29 06/18/17 12:45 06/18/17 13:10 06/19/17 08:42 Urine Test NEG (NEG) Urine Color YELLOW Urine Appearance CLEAR (CLEAR) Urine pH 5.5 (4.5-7.5) Urine Specific [place] 1.014 (1.000-1.030) Urine Protein NEG (NEG) Urine Glucose (UA) NEG (NEG) Urine Ketones NEG (NEG) Urine Occult Blood NEG (NEG) Urine Nitrite NEG (NEG) Urine Bilirubin NEG (NEG) Urine Urobilinogen NEG (NEG) Urine Leukocyte Esterase SMALL (NEG) Urine WBC (Auto) 1-5 /hpf (0-5) Urine RBC (Auto) 0-4 /hpf (0-4) Urine Hyaline Casts (Auto) 1-5 /lpf (0-5) Urine Epithelial Cells (Auto) 20-30 /lpf (0-5) Urine Bacteria (Auto) 3+ (NEG) Urine Opiates Screen NEG (NEG) Urine Methadone, Qualitative NEG (NEG) Urine Barbiturates NEG (NEG) Urine Phencyclidine (PCP) Level NEG (NEG) Ur Amphetamine/Methamphetamine NEG (NEG) MDMA (Ecstasy) Screen NEG (NEG) Urine Benzodiazepines Screen NEG (NEG) Urine Cocaine Metabolite NEG (NEG) Urine Marijuana (THC) NEG (NEG) Red Blood Count 4.61 M/uL (4.2-5.4) Mean Corpuscular Volume 80.7 fL (80-100) Mean Corpuscular Hemoglobin 27.8 pg (25-34) Mean Corpuscular Hemoglobin Concent 34.4 g/dl (32-36) RDW Standard Deviation 39.9 fL (36.4-46.3) RDW Coefficient of Variation 13.7 % (11.5-14.5) Mean Platelet Volume 8.7 fL (7.4-10.4) Anion Gap 7.0 mmol/L (3-11) Est Creatinine Clear Calc Drug Dose 147.5 ml/min Estimated GFR () 127.1 Estimated GFR (Non- 109.6 BUN/Creatinine Ratio 24.1 (10-20) Calcium Level 8.7 mg/dl (8.5-10.1) Total Bilirubin 0.3 mg/dl (0.2-1) Direct Bilirubin 0.1 mg/dl (0-0.2) Aspartate Amino Transf (AST/SGOT) 12 U/L (15-37) Alanine Aminotransferase (ALT/SGPT) 27 U/L (12-78) Alkaline Phosphatase 86 U/L (45-117) Total Protein 7.1 gm/dl (6.4-8.2) Albumin 3.9 gm/dl (3.4-5.0) Thyroid Stimulating Hormone (TSH) 0.771 uIu/ml (0.300-4.500) Salicylates Level < 1.7 mg/dl (2.8-20) Acetaminophen Level < 2 ug/ml (10-30) Ethyl Alcohol mg/dL < 3.0 mg/dl (0-3) Bedside Glucose 108 mg/dl (70-90)
--- NOTE | 2017-06-29 10:02 | Psych Management Progress Note ---
Psychiatry Miscellaneous Date of Service: Jun 29, 2017. Patient seen, MS assessed. Rates mood as 2-3/10 and sad as the anniversary of her mother's passing. She appears to have more responsive/appropriate affect with med changes. Still endorses aud nguyen but doesn't feel they are worse off of medication and continues to report willingness for TMS. Encouraged cooperation with care and treatment plan as outlined by allied health prescriber.
[2017-06-29] MEDS: THIOTHIXENE 1 MG CAP PO SCH (13:55)
[2017-06-29] MEDS: DESMOPRESSIN ACETATE 0.1 MG TAB PO SCH (22:08)
[2017-06-29] MEDS: MIRTAZAPINE TAB 15 MG TAB PO SCH (22:10)
[2017-06-29] MEDS: ATORVASTATIN 20 MG TAB PO SCH (22:10)
[2017-06-29] MEDS: MONTELUKAST SOD 10 MG TAB PO SCH (22:11)
[2017-06-30 06:51] VITALS: BP_SYST 122; BP_SYST 125; BP_DIAS 79; BP_DIAS 80; PULSE 68; PULSE 73; TEMP 36.9
[2017-06-30] MEDS: ESTRADIOL 1 MG TAB PO SCH (08:27)
[2017-06-30] MEDS: LEVOTHYROXINE 125 MCG TAB PO SCH (08:27)
[2017-06-30] MEDS: LOSARTAN POTASSIUM 50 MG TAB PO SCH (08:27)
[2017-06-30] MEDS: METFORMIN HCL 500 MG TAB PO SCH ×2 (08:28→17:25)
[2017-06-30] MEDS: ESCITALOPRAM OXALATE 20 MG TAB PO SCH (08:30)
[2017-06-30] MEDS: THIOTHIXENE 1 MG CAP PO SCH (08:31)
[2017-06-30] MEDS: CLONAZEPAM 0.5 MG TAB PO SCH ×3 (08:36→21:03)
--- NOTE | 2017-06-30 12:24 | Psychiatric Progress Notes ---
Progress Note Date of Service Jun 30, 2017. Interval History Leisa Cross is a 46-year-old female admitted on Jun 18, 2017 at 14:59 with a history of schizoaffective disorder, depressed type. She was admitted on a 201 voluntary commitment due to increased command auditory hallucinations of her grandfather's voice telling her to harm herself as well as hearing calming words from her mother. Chief Complaint "Well I haven't been getting any worse". Subjective Patient was seen & assessed interval progress reviewed with Treatment Team. Patient states she is reassured that she is not getting worse with the decreases in her meds. She continues to hear voices telling her to harm herself "almost all the time," but feels able to ignore them and not act on them. Currently they are telling her to scratch herself, but she feels able to resist them. She states today is the anniversary of her mother's , and she feels like she is going to cry, "but I'm holding it together, going to the groups, talking about it." She has been using her stress ball, and is trying to avoid use of prns unless she absolutely needs them. She says she was also feeling very anxious yesterday as her mother on a Friday, and yesterday was Friday. She feels it is helping to be around others and using music, and other coping skills. She is aware of the plan to discontinue Navane today. Sleep Information Total Hours of Sleep: 8.75 Meal Information Percent of Breakfast Consumed: 100 Percent of Lunch Consumed: 75 Percent of Dinner Consumed: 100 Mental Status Exam During interview pt is: alert and oriented, cooperative Appearance: appropriately dressed, other (obese) Eye contact is: fair Motor behavior is: other (walks with cane) Speech: normal in rate, rhythm & volume Affect: depressed, anxious Mood is: depressed, anxious Thought process: goal directed, clear, coherent Thought content: reality based without delusions Suicidal thought are: present, Plan: denied (grandfather's voice tells her to harm herself), Intent: denied (reports no desire to act on command auditory hallucinations) Homicidal thoughts are: denied Hallucinations: auditory (hears grandfather's and mother's voice) Cognition: memory grossly intact, attention grossly intact, language grossly intact Intelligence estimated to be: average Insight: impaired Judgement: impaired Impression Condition remains relatively static despite tapering antipsychotics. Will consider tapering off mirtazapine or clonazepam next per OP provider's recs, as medications have not been overly beneficial and she has SEs. She continues to experience command AH of voices telling her to harm herself, but feels able to withstand these and keep herself safe in the hospital; benefitting from support of staff. Today is 1 year anniversary of mother's . Plan (1) Schizoaffective disorder, depressive type 06/18 - has been on numerous medications as an outpatient, with limited efficacy , and significant side effect concern, tardive dyskinesia and metabolic syndrome. Discussed her case with TEODORO Arce, and we will attempt to taper her off additional medications, while pursuing outpatient TMS. - Current psychotropic medications include lamotrigine 150 mg daily, mirtazapine 30 mg daily at bedtime, desmopressin 0.2 mg daily every other night , clonazepam 0.5 mg 3 times a day plus once daily when necessary, metformin 1000 mg twice a day, thiothixene 10 mg 4 times a day, aripiprazole 30 mg daily, and escitalopram 20 mg daily. The patient feels that mirtazapine is the most helpful medication, and also thinks she gets benefit from clonazepam, thiothixene and lamotrigine. She does not think that aripiprazole has been helpful, and is not sure if escitalopram is helpful. We will start by decreasing her aripiprazole 20 mg daily, with a goal to taper her off of it as long as she tolerates this well. - Every 15 minute checks for safety, encourage participation in unit groups and therapy, work on healthy coping skills and discharge safety plan. - Coordinate with outpatient providers, family meeting as appropriate. - Fasting lipid profile and glucose last checked 01/15/2017, and were within normal limits. 06/19 - Will continue dose of Abilify 20mg for tomorrow morning as well, then consider further taper depending on patient's response. - Continue other medications as above. Navane dosing changed to patient's home dosing times of 10mg at lunch, 10mg at dinner, and 20mg HS. - Consider taper of Lexapro 20mg to discontinuation as well. - Family meeting as appropriate - Coordination of care with outpatient providers to include TMS with Dr. Espinal and Nikolay. - Continue to encourage participation in group therapy and activities while on the unit. 06/20 - Abilify to 10mg tomorrow morning as taper continues to discontinuation. - Navane 5mg BID prn added to account for possible worsening anxiety with medication changes. - Continue to encourage participation in groups. 06/21 - Received Abilify 10mg this AM. Will continue to taper during her admission. Navane 5mg BID prn was added to account for possible anxiety with medication adjustments. - Recommendations passed on would be to look at escitalopram as next effort in simplifying medication regimen. Pt feels mood is well controlled with Lamictal and may be able to tolerate discontinuation of escitalopram. - Continue to encourage group participation. 06/22 - received 2nd day of abilify 10am and will reduce to 5mg starting tomorrow, continue prn navane future goals may be reduction of lexapro (but leary given her obsessional worries of having caused harm ), she is slightly brighter today even though she reports more "depressed" may be less flattening on lowered abilify will need to watch as we approach true antidepressant doses 06/23 - DC Abilify - Will begin taper of Navane tomorrow. 06/24 - Taper Navane to 10 mg. TID 06/25 - Continue Navane at the lower dose, and may decrease further tomorrow. Decrease escitalopram to 15 mg daily at patient's request as she does not feel this medication has been helpful. 06/26 - DC Navane HS dose. Continue other meds. 06/27 - Reduce Navane to 5 mg. TID and prn to 2.5 BID prn 06/28 - Reduce Navane to 2 mg. AM and afternoon, DC HS dose 06/30 - Discontinue thiothixene, as ineffective and no worsening of symptoms with taper. - Can begin taper off mirtazapine or clonazepam next. - Today is anniversary of mother's , patient is utilizing her coping skills and benefitting from staff support. (2) Hypothyroidism Continue home dose of levothyroxine 125 g daily. TSH on admission was normal at 0.771. (3) Diabetes mellitus type 2 Patient reports she's been diagnosed with diabetes, doesn't know what type, and doesn't follow her BGs. Her Hgb A1C is normal, and she eats a normal diet at home, and is requesting that here. Continue home dose of metformin. (4) Dyslipidemia Continue home dose of atorvastatin. (5) Class II obesity Encouraged daily exercise and healthy diet. (6) Hypertension Continue home dose of Cozaar. (7) Asthma Continue home dose of Singulair. Discharge / Aftercare Planning Primary Care Physician: Name: Dr. Tam, Internal Medicine, [facility] [place] of Appointment: Jul 09, 2017 Time of Appointment: 4:00 p.m. Psychiatrist: Name: Kassandra Hay [employer] Date of Appointment: Jul 02, 2017 Time of Appointment: 2:40 p.m. Therapist: Name: Lamar Miller [employer] Date of Appointment: Jul 04, 2017 Time of Appointment: 9 a.m. Viscose Department Worker: Name: Ramiro Santo [facility]aya Date of Appointment: Jul 02, 2017 Time of Appointment: 10:45 a.m. Partial or Psych Rehab: Name: [facility] Date of Appointment: Jul 03, 2017 Time of Appointment: 11:30 a.m. Bond Manager: Name: Constantino Hester [facility] Date of Appointment: Jul 03, 2017 Time of Appointment: 9 a.m. Neurologist: Name: Dr. Westbrook [facility] [place] Date of Appointment: Jul 04, 2017 Time of Appointment: 3:00 Other: Name of Appointment #1: Vera Ibarra Medication Management Date of Appointment #1: Jul 02, 2017 Time of Appointment #1: 8:30 a.m. Visit Code E&M Code: 95013 Inventory Assets Strengths: Extensive outpatient supports, compliance with treatment, good rapport with outpatient providers Needs: Improved coping skills, medication adjustments Risk Factors Assessment : Yes /single/: Yes Higher / Fall in social status: No Health problems: Yes Mental Health Diagnoses: Yes Substance use disorders: No Previous attempt: Yes Previous psychiatric stay: Yes Hopelessness: Yes Smoker: No Protective Factors Assessment [employer] beliefs: Yes : No Responsible for young children: No Employed: No Stable relationships: Yes Supportive family: Yes Good rapport with provider: Yes Data Vital Signs Last 24 Hrs: Date Time Temp Pulse Resp B/P (MAP) Pulse Ox O2 Delivery O2 Flow Rate FiO2 06/30/17 06:51 36.9 73 16 125/79 68 122/80 Meds Administered Last 24 Hrs: Meds Administered (Past 24Hrs) Medications (Trade) Dose Ordered Sig/Christofer Route Start Time Stop Time Status Last Admin Dose Admin Thiothixene (Navane Cap) 5 mg BID@0900,1400 PO 06/28/17 14:00 06/29/17 09:47 DC 06/29/17 08:53 5 MG Thiothixene (Navane Cap) 2 mg BID@0900,1400 PO 06/29/17 14:00 07/29/17 13:59 06/30/17 08:31 2 MG
[2017-06-30] MEDS: MONTELUKAST SOD 10 MG TAB PO SCH (21:03)
[2017-06-30] MEDS: DESMOPRESSIN ACETATE 0.1 MG TAB PO SCH (21:03)
[2017-06-30] MEDS: MIRTAZAPINE TAB 15 MG TAB PO SCH (21:03)
[2017-06-30] MEDS: ATORVASTATIN 20 MG TAB PO SCH (21:03)
[2017-07-01 06:48] VITALS: BP 124/82; PULSE 69; PULSE 77; TEMP 36.4
[2017-07-01] MEDS: CLONAZEPAM 0.5 MG TAB PO SCH ×3 (08:24→21:06)
[2017-07-01] MEDS: ESCITALOPRAM OXALATE 20 MG TAB PO SCH (08:27)
[2017-07-01] MEDS: METFORMIN HCL 500 MG TAB PO SCH ×2 (08:28→17:18)
[2017-07-01] MEDS: LEVOTHYROXINE 125 MCG TAB PO SCH (08:28)
[2017-07-01] MEDS: ESTRADIOL 1 MG TAB PO SCH (08:28)
[2017-07-01] MEDS: LOSARTAN POTASSIUM 50 MG TAB PO SCH (08:29)
--- NOTE | 2017-07-01 10:51 | Psychiatric Progress Notes ---
Progress Note Date of Service Jul 01, 2017. Interval History Leisa Cross is a 46-year-old female admitted on Jun 18, 2017 at 14:59 with a history of schizoaffective disorder, depressed type. She was admitted on a 201 voluntary commitment due to increased command auditory hallucinations of her grandfather's voice telling her to harm herself as well as hearing calming words from her mother. Chief Complaint "I'm no worse, so that is good". Subjective Patient was seen & assessed interval progress reviewed with Nursing. Staff reports outpatient appointments with PCP on and Neurologist on Friday in preparation for TMS upon discharge. Pt has been riding the exercise bike daily while on the unit. Pt was seen today to discuss progress since admission. Pt states she is doing ok and that she is "no worse" which she sees as a good things as her medications have been tapered in preparation for TMS. Pt states she is hesitant to take prn medications and has been using the exercise bike on the unit when she becomes anxious, which she reports is helpful. Pt is initially hesitant to decrease dose of Remeron, but agrees after a discussion of daily monitoring inpatient versus less-frequent meetings outpatient. Pt is unwilling for change in her Klonopin dose at this time as her anxiety has increased with discontinuation of Klonopin in the past. She states she is willing to trial Remeron 15mg this evening and discuss her thoughts with her provider tomorrow. Pt reports her mood is a 2-3/10 (10=best) . She states, "I don't really feel anxious right now". Pt feels she did well yesterday as it was the anniversary of her mother's . Pt reports increased anxiety the day prior to the anniversary, but found visits from friends helpful and uplifting yesterday. Pt reports ongoing auditory hallucinations, but states they have not been worse while tapering medication regimen. Pt denies SI/HI at this encounter. Review of Systems Psych: denies symptoms other than stated above Constitutional: denied Cardiovascular: denied GI: denied Neurologic: denied Remainder of 10 body systems also reviewed and denied other than noted above. Sleep Information Total Hours of Sleep: 8.00 Meal Information Percent of Breakfast Consumed: 95 Percent of Lunch Consumed: 85 Percent of Dinner Consumed: 100 Mental Status Exam During interview pt is: alert and oriented, cooperative Appearance: appropriately dressed, appropriately groomed, other (obese) Eye contact is: good Motor behavior is: no abnormal motor movements, other (ambulates with cane) Speech: normal in rate, rhythm & volume Affect: depressed, blunted Mood is: depressed, other ("No worse") Thought process: goal directed, clear, coherent Thought content: reality based without delusions Suicidal thought are: present, Plan: denied (command hallucinations encouraging self-harm), Intent: denied (denies intent to act on command auditory hallucinations) Homicidal thoughts are: denied Hallucinations: auditory (grandfather's and mother's voice) Cognition: memory grossly intact, attention grossly intact, language grossly intact Intelligence estimated to be: average Insight: impaired Judgement: impaired Impression Agreeable to decreased dose of Remeron at this time. Unwilling to decrease Klonopin as she experienced increased anxiety with discontinuation in the past. Pt denies worsening of symptoms during her hospitalization. Command auditory hallucinations are ongoing, but manageable per patient. Pt states she feels she did well with anniversary of her mother's and appreciated visits from friends. Plan (1) Schizoaffective disorder, depressive type 06/18 - has been on numerous medications as an outpatient, with limited efficacy , and significant side effect concern, tardive dyskinesia and metabolic syndrome. Discussed her case with TEODORO Arce, and we will attempt to taper her off additional medications, while pursuing outpatient TMS. - Current psychotropic medications include lamotrigine 150 mg daily, mirtazapine 30 mg daily at bedtime, desmopressin 0.2 mg daily every other night , clonazepam 0.5 mg 3 times a day plus once daily when necessary, metformin 1000 mg twice a day, thiothixene 10 mg 4 times a day, aripiprazole 30 mg daily, and escitalopram 20 mg daily. The patient feels that mirtazapine is the most helpful medication, and also thinks she gets benefit from clonazepam, thiothixene and lamotrigine. She does not think that aripiprazole has been helpful, and is not sure if escitalopram is helpful. We will start by decreasing her aripiprazole 20 mg daily, with a goal to taper her off of it as long as she tolerates this well. - Every 15 minute checks for safety, encourage participation in unit groups and therapy, work on healthy coping skills and discharge safety plan. - Coordinate with outpatient providers, family meeting as appropriate. - Fasting lipid profile and glucose last checked 01/15/2017, and were within normal limits. 06/19 - Will continue dose of Abilify 20mg for tomorrow morning as well, then consider further taper depending on patient's response. - Continue other medications as above. Navane dosing changed to patient's home dosing times of 10mg at lunch, 10mg at dinner, and 20mg HS. - Consider taper of Lexapro 20mg to discontinuation as well. - Family meeting as appropriate - Coordination of care with outpatient providers to include TMS with Dr. Espinal and Nikolay. - Continue to encourage participation in group therapy and activities while on the unit. 06/20 - Abilify to 10mg tomorrow morning as taper continues to discontinuation. - Navane 5mg BID prn added to account for possible worsening anxiety with medication changes. - Continue to encourage participation in groups. 06/21 - Received Abilify 10mg this AM. Will continue to taper during her admission. Navane 5mg BID prn was added to account for possible anxiety with medication adjustments. - Recommendations passed on would be to look at escitalopram as next effort in simplifying medication regimen. Pt feels mood is well controlled with Lamictal and may be able to tolerate discontinuation of escitalopram. - Continue to encourage group participation. 06/22 - received 2nd day of abilify 10am and will reduce to 5mg starting tomorrow, continue prn navane future goals may be reduction of lexapro (but leary given her obsessional worries of having caused harm ), she is slightly brighter today even though she reports more "depressed" may be less flattening on lowered abilify will need to watch as we approach true antidepressant doses 06/23 - DC Abilify - Will begin taper of Navane tomorrow. 06/24 - Taper Navane to 10 mg. TID 06/25 - Continue Navane at the lower dose, and may decrease further tomorrow. Decrease escitalopram to 15 mg daily at patient's request as she does not feel this medication has been helpful. 06/26 - DC Navane HS dose. Continue other meds. 06/27 - Reduce Navane to 5 mg. TID and prn to 2.5 BID prn 06/28 - Reduce Navane to 2 mg. AM and afternoon, DC HS dose 06/30 - Discontinue thiothixene, as ineffective and no worsening of symptoms with taper. - Can begin taper off mirtazapine or clonazepam next. - Today is anniversary of mother's , patient is utilizing her coping skills and benefitting from staff support. 07/01 - Agreeable to decreased dose of Remeron. Ordered 15mg for tonight. - Continue other medications. - Continue to encourage health coping skills, groups, and exercise bike. (2) Hypothyroidism Continue home dose of levothyroxine 125 g daily. TSH on admission was normal at 0.771. (3) Diabetes mellitus type 2 Patient reports she's been diagnosed with diabetes, doesn't know what type, and doesn't follow her BGs. Her Hgb A1C is normal, and she eats a normal diet at home, and is requesting that here. Continue home dose of metformin. (4) Dyslipidemia Continue home dose of atorvastatin. (5) Class II obesity Encouraged daily exercise and healthy diet. (6) Hypertension Continue home dose of Cozaar. (7) Asthma Continue home dose of Singulair. Discharge / Aftercare Planning Primary Care Physician: Name: [place]. Tam, [place], [facility] [place]ointment: Jul 09, 2017 Time of Appointment: 4:00 p.m. Psychiatrist: Name: Kassandra Hay [employer] Date of Appointment: Jul 30, 2017 Time of Appointment: 4:40 p.m. Therapist: Name: Lamar Miller [employer] Date of Appointment: Jul 08, 2017 Time of Appointment: 10 a.m. Oral Surgery Technician: Name: Constantino Thomason [employer] Date of Appointment: Jul 02, 2017 Time of Appointment: 10:45 a.m. Partial or Psych Rehab: Name: [facility] Date of Appointment: Jul 03, 2017 Time of Appointment: 11:30 a.m. Padder: Name: Constantino Hester Date of Appointment: Jul 03, 2017 Time of Appointment: 9 a.m. Neurologist: Name: Dr. Pietro ROMAN Date of Appointment: Jul 04, 2017 Time of Appointment: 3:00 Other: Name of Appointment #1: Vera Ibarra [facility]ication [facility] Date of Appointment #1: Jul 02, 2017 Time of Appointment #1: 8:30 a.m. Visit Code E&M Code: 88180 Inventory Assets Strengths: Extensive outpatient supports, compliance with treatment, good rapport with outpatient providers Needs: Improved coping skills, medication adjustments Risk Factors Assessment : Yes /single/: Yes Higher / Fall in social status: No Health problems: Yes Mental Health Diagnoses: Yes Substance use disorders: No Previous attempt: Yes Previous psychiatric stay: Yes Hopelessness: Yes Smoker: No Protective Factors Assessment Holiness beliefs: Yes : No Responsible for young children: No Employed: No Stable relationships: Yes Supportive family: Yes Good rapport with provider: Yes Data Vital Signs Last 24 Hrs: Date Time Temp Pulse Resp B/P (MAP) Pulse Ox O2 Delivery O2 Flow Rate FiO2 07/01/17 06:48 36.4 77 16 124/82 69 124/82 Meds Administered Last 24 Hrs: Meds Administered (Past 24Hrs) Medications (Trade) Dose Ordered Sig/Christofer Route Start Time Stop Time Status Last Admin Dose Admin Thiothixene (Navane Cap) 2 mg BID@0900,1400 PO 06/29/17 14:00 06/30/17 12:20 DC 06/30/17 08:31 2 MG
[2017-07-01] MEDS: ATORVASTATIN 20 MG TAB PO SCH (21:06)
[2017-07-01] MEDS: DESMOPRESSIN ACETATE 0.1 MG TAB PO SCH (21:06)
[2017-07-01] MEDS: MONTELUKAST SOD 10 MG TAB PO SCH (21:07)
[2017-07-01] MEDS ORDERED: MIRTAZAPINE TAB 15 MG TAB PO SCH (22:00)
[2017-07-02] MEDS: CLONAZEPAM 0.5 MG TAB PO PRN (00:25)
[2017-07-02 07:03] VITALS: BP_SYST 122; BP_SYST 123; BP_DIAS 79; BP_DIAS 80; PULSE 70; PULSE 76; TEMP 36.8
[2017-07-02] MEDS: LEVOTHYROXINE 125 MCG TAB PO SCH (07:47)
[2017-07-02] MEDS: CLONAZEPAM 0.5 MG TAB PO SCH (07:48)
[2017-07-02] MEDS: LOSARTAN POTASSIUM 50 MG TAB PO SCH (07:48)
[2017-07-02] MEDS: ESTRADIOL 1 MG TAB PO SCH (07:48)
[2017-07-02] MEDS: ESCITALOPRAM OXALATE 20 MG TAB PO SCH (07:51)
[2017-07-02] MEDS: METFORMIN HCL 500 MG TAB PO SCH (08:49)
[2017-07-02] MEDS ORDERED: ESCI1TAB9 PO (09:25)
--- NOTE | 2017-07-02 09:36 | Discharge Instructions ---
Discharge Information Report Includes Report will include the: Discharge Instructions & Summary Admission Admission Date / Time: Jun 18, 2017 at 14:59 Reason for Admission: Auditory Persecutory Hallucinations Discharge Discharge Diagnosis / Problem: Schizoaffective disorder Discharge Goals Goal(s): Decrease discomfort, Improve function, Improve disease control Activity Recommendations Activity Limitations: resume your previous activity . Instructions / Follow-Up Instructions / Follow-Up . SPECIAL CARE INSTRUCTIONS: 1. Follow through with your scheduled aftercare appointments. If unable to keep an appointment, please call to reschedule. 2. Take your medication only as prescribed. Medication should not be changed or stopped without the approval of your doctor. In the event of worsening symptoms or concerns about side effects, contact your doctor immediately. 3. Utilize new healthy coping skills, anger management skills, and stress management skills learned during your hospitalization. Journal feelings and process them with a support person. Identify stressors or situations that may result in relapse, deterioration or inappropriate behaviors and develop a plan to deal with those issues. 4. If your coping skills are ineffective and you are in crisis, contact your outpatient providers for direction. If unable to reach your providers, please call the CAN HELP LINE AT or go to the closest Emergency Room. 5. Avoid alcohol and un-prescribed drugs. 6. You have been provided with the Mental Health Advance Directives Pamphlet for your review. AFTERCARE APPOINTMENTS: * Please call your insurance company prior to your scheduled appointment to confirm your aftercare providers are covered. Take your insurance information to your appointments. . Discharge / Aftercare Planning Primary Care Physician: Name: Dr. Tam, [place], [facility] [place]ment: Jul 09, 2017 Time of Appointment: 4:00 p.m. Psychiatrist: Name: Kassandra [facility] Date of Appointment: Jul 30, 2017 Time of Appointment: 4:40 p.m. Therapist: Name Of Therapist: Lamar Miller [facility] Date of Appointment: Jul 08, 2017 Time of Appointment: 10 a.m. Rail Signal Designer: Name: Ramiro Santo [facility] Date of Appointment: Jul 02, 2017 Time of Appointment: 10:45 a.m. Partial or Psych Rehab: Name: Mario [facility] Date Of Appointment: Jul 04, 2017 Time of Appointment: 11:30 a.m. Apparel Machinery Instructor: Name: Constantino Hester Date of Appointment: Jul 03, 2017 Time of Appointment: 9 a.m. Appointment Notes: LM to reschedule Neurologist: Name: Dr. Westbrook [facility] [place] of Appointment: Jul 04, 2017 Time of Appointment: 3:00 Appointment Notes: [address], [address], [place] Other: Name of Appointment #1: [facility] Date of Appointment #1: Jul 02, 2017 Time of Appointment #1: 8:30 a.m. Appointment #1 Notes: LM to reschedule . Follow-Up Care Plan for Follow-Up Care: The patient will return to her regular OP providers Current Hospital Diet Patient's current hospital diet: Regular Diet Discharge Diet Recommended Diet: Regular Diet Procedures Procedures Performed: No Pending Studies Pending Studies at Discharge: No Medical Emergencies . Who to Call and When: Medical Emergencies: For questions or emergencies related to your hospital stay, please contact the Inpatient Behavioral Health Unit at [phone]. A coat maker is on-call 23/12 for the Behavioral Health Unit for emergencies At any time you feel your situation is an emergency, you may also call 911 immediately. . Non-Emergent Contact Non-Emergency issues call your: Psychiatrist, Therapist Advance Directives Existing Advance Directive: No Do You Have an Existing Mental: No Existing Living Will: No Existing Power of Assessment Counselor: No Advance Directives Info Given: To Pt/S.O. Advance Directives Reason: Declines as Mental Health Visit. Discharge Summary Admission HPI Per the Admitting provider: The patient is well-known to me from previous hospitalizations, and follows with TEODORO Arce as an outpatient. She presented on referral from Kassandra for admission due to an increase in auditory hallucinations of her grandfather' s voice telling her to overdose or cut herself in the context of the 1 year anniversary of her mother's June 30. She has extensive outpatient services which she has been utilizing, but did not feel able to keep herself safe outside of the hospital. She was last on our unit for a week in December, at which time we tried to taper her off some of her medications, as she was on many medications which have had limited efficacy for her symptoms. She was tapered off lamotrigine and clonazepam, but continued on aripiprazole, escitalopram, mirtazapine, and thiothixene both scheduled and when necessary. She was ultimately transferred to [facility] for ECT, but only had one treatment before deciding against any further treatments, signed out of the hospital, and went to stay with her father in [place]. She was unhappy with her experience at [facility], and her family and wound specialist were intervening as well, wanting to direct her treatment, which added to her distress. She went back on clonazepam, taking up to 4 0.5mg tabs daily, and lamotrigine. She continued to have command auditory hallucinations of her grandfather's voice telling her to harm herself, and was taking thiothixene up to 4 times a day. She continues to have involuntary mouth movements. She has continued to see her outpatient psychiatric COIN MACHINE SUPERVISOR and therapist regularly since that time, and has called the can help line regularly, sometimes nightly, to process her feelings. The option of TMS has been explored, but as she has a remote seizure history, she had to be referred for neurological workup first. A trial of Artane was ineffective, and Ingrezza was explored to treat tardive dyskinesia, but after prior authorization was obtained, the patient brought the pills into her psychiatric appointment, stating that she was worried about the side effects and no longer wanted to take it, and wanted to give it to her COIN MACHINE SUPERVISOR. She was last seen by Kassandra Hay 2 days ago, at which point she reported a good [place] in [place] with her family, but worsening mood, anxiety, and auditory hallucination for the past several days, with suicidal thoughts. She brought into bottles of medications and requested that they be disposed of so she wouldn't be tempted to overdose on them. No medication changes were made. Today she reports the auditory hallucinations of her grandfather's voice have been getting worse since Friday (4 days ago), telling her to harm herself, has been more depressed and anxious, not eating well, not sleeping, and feels overwhelmed and unable to cope. She notes she doesn't want to hurt herself and "wants to get help." She reports crying daily, restlessness, and feeling that she cannot go on this way. She is is able to contract for safety on the unit and agrees to go to staff if she feels unsafe. Despite not eating well, she has been gaining weight, which she attributes to the mirtazapine, but notes she wants to continue it as she thinks it is helping the most of all her meds. She remains committed to getting TMS if she is approved, and to coming off of some of her medications. She thinks that thiothixene does help with her voices, but doesn't think the aripiprazole helps much. She does not want to go off clonazepam, as she felt "tremendous anxiety" when it was stopped this past summer. Hospital Course (1) Schizoaffective disorder, depressive type 06/18 - has been on numerous medications as an outpatient, with limited efficacy , and significant side effect concern, tardive dyskinesia and metabolic syndrome. Discussed her case with TEODORO Arce, and we will attempt to taper her off additional medications, while pursuing outpatient TMS. - Current psychotropic medications include lamotrigine 150 mg daily, mirtazapine 30 mg daily at bedtime, desmopressin 0.2 mg daily every other night , clonazepam 0.5 mg 3 times a day plus once daily when necessary, metformin 1000 mg twice a day, thiothixene 10 mg 4 times a day, aripiprazole 30 mg daily, and escitalopram 20 mg daily. The patient feels that mirtazapine is the most helpful medication, and also thinks she gets benefit from clonazepam, thiothixene and lamotrigine. She does not think that aripiprazole has been helpful, and is not sure if escitalopram is helpful. We will start by decreasing her aripiprazole 20 mg daily, with a goal to taper her off of it as long as she tolerates this well. - Every 15 minute checks for safety, encourage participation in unit groups and therapy, work on healthy coping skills and discharge safety plan. - Coordinate with outpatient providers, family meeting as appropriate. - Fasting lipid profile and glucose last checked 01/15/2017, and were within normal limits. 06/19 - Will continue dose of Abilify 20mg for tomorrow morning as well, then consider further taper depending on patient's response. - Continue other medications as above. Navane dosing changed to patient's home dosing times of 10mg at lunch, 10mg at dinner, and 20mg HS. - Consider taper of Lexapro 20mg to discontinuation as well. - Family meeting as appropriate - Coordination of care with outpatient providers to include TMS with Dr. Espinal and Nikolay. - Continue to encourage participation in group therapy and activities while on the unit. 06/20 - Abilify to 10mg tomorrow morning as taper continues to discontinuation. - Navane 5mg BID prn added to account for possible worsening anxiety with medication changes. - Continue to encourage participation in groups. 06/21 - Received Abilify 10mg this AM. Will continue to taper during her admission. Navane 5mg BID prn was added to account for possible anxiety with medication adjustments. - Recommendations passed on would be to look at escitalopram as next effort in simplifying medication regimen. Pt feels mood is well controlled with Lamictal and may be able to tolerate discontinuation of escitalopram. - Continue to encourage group participation. 06/22 - received 2nd day of abilify 10am and will reduce to 5mg starting tomorrow, continue prn navane future goals may be reduction of lexapro (but leary given her obsessional worries of having caused harm ), she is slightly brighter today even though she reports more "depressed" may be less flattening on lowered abilify will need to watch as we approach true antidepressant doses 06/23 - DC Abilify - Will begin taper of Navane tomorrow. 06/24 - Taper Navane to 10 mg. TID 06/25 - Continue Navane at the lower dose, and may decrease further tomorrow. Decrease escitalopram to 15 mg daily at patient's request as she does not feel this medication has been helpful. 06/26 - DC Navane HS dose. Continue other meds. 06/27 - Reduce Navane to 5 mg. TID and prn to 2.5 BID prn 06/28 - Reduce Navane to 2 mg. AM and afternoon, DC HS dose 06/30 - Discontinue thiothixene, as ineffective and no worsening of symptoms with taper. - Can begin taper off mirtazapine or clonazepam next. - Today is anniversary of mother's , patient is utilizing her coping skills and benefitting from staff support. 07/01 - Agreeable to decreased dose of Remeron. Ordered 15mg for tonight. - Continue other medications. - Continue to encourage health coping skills, groups, and exercise bike. (2) Hypothyroidism Continue home dose of levothyroxine 125 g daily. TSH on admission was normal at 0.771. (3) Diabetes mellitus type 2 Patient reports she's been diagnosed with diabetes, doesn't know what type, and doesn't follow her BGs. Her Hgb A1C is normal, and she eats a normal diet at home, and is requesting that here. Continue home dose of metformin. (4) Dyslipidemia Continue home dose of atorvastatin. (5) Class II obesity Encouraged daily exercise and healthy diet. (6) Hypertension Continue home dose of Cozaar. (7) Asthma Continue home dose of Singulair. Risk Factors Assessment : Yes /single/: Yes Higher / Fall in social status: No Health problems: Yes Mental Health Diagnoses: Yes Substance use disorders: No Previous attempt: Yes Previous psychiatric stay: Yes Hopelessness: Yes Smoker: No Protective Factors Assessment Mu-Ism beliefs: Yes : No Responsible for young children: No Employed: No Stable relationships: Yes Supportive family: Yes Good rapport with provider: Yes Day of Discharge Assessment COURSE OF HOSPITALIZATION: The patient has been on our unit for 14 days. She was admitted voluntarily due to worsening condition including depression with suicidality, command hallucinations telling her to kill herself. The patient is in the care of the undersigned and we have been working to try to get her into TMS with Dr. Espinal. She must be cleared by neurology, Dr. Rose, prior to proceeding. Over the course of recent months to the last year, the patient has had a consistently poor course with hallucinations suicidality and depression. Changes in medications have made little difference therefore it was decided that we would taper her off some of her medications in view of the fact they were not working. We were able to taper her off of Abilify, Navane, cut Lexapro to 15 mg daily. She tolerated this with very little change to her condition. She did appear to have more energy, was able to get on the exercise bike for an hour each day. She did persist in her auditory hallucinations, which are chronic, of her grandfather's voice telling her to hurt herself. This worsening to her condition has occurred in the last year since the of her mother in June 2016. During her stay she was able to contract for safety, denied any plan or intent to harm herself in the hospital. She has always, generally, been able to prevent herself from acting on command hallucinations. We kept her in the hospital for 2 weeks while we tapered some of these medicines in case there was an acute decompensation, which there was not. She is requesting discharge today and has a robust safety plan with people she can call every day if she gets worse. She has an appointment with her neurologist on July 04 which we hope will clear her to move forward with TMS. She has a robust outpatient support system with multiple providers including the undersigned, therapist, [place] light digital sales representative, wound specialist, counter caser, and mobile psych worker as well as attending skills. She would like to go home today in order to prepare for her appointment later in the week. DAY OF DISCHARGE ASSESSMENT: Today the patient is requesting discharge. She feels capable of going home and managing her symptoms in the outpatient environment. As above, she has a robust safety plan with multiple people she can call in the event she feels sad or in need. Today she is casually and appropriately dressed and groomed. She walks with a quad cane with a somewhat wide-based shuffling gait. Affect is restricted but able to smile. Speech is of normal rate volume and tone. Thoughts are organized, goal directed. She denies active suicidal thinking today. She has no plan or intent to act on the ongoing auditory hallucinations. Recent and remote memory are intact per conversation. Intelligence is estimated to be average. Insight and judgment are improved over admission. Laboratory Test 06/18/17 12:29 06/18/17 12:45 06/18/17 13:10 06/19/17 08:42 Urine Test NEG Urine Color YELLOW Urine Appearance CLEAR Urine pH 5.5 Urine Specific [place] 1.014 Urine Protein NEG Urine Glucose (UA) NEG Urine Ketones NEG Urine Occult Blood NEG Urine Nitrite NEG Urine Bilirubin NEG Urine Urobilinogen NEG Urine Leukocyte Esterase SMALL Urine WBC (Auto) 1-5 Urine RBC (Auto) 0-4 Urine Hyaline Casts (Auto) 1-5 Urine Epithelial Cells (Auto) 20-30 Urine Bacteria (Auto) 3+ Urine Opiates Screen NEG Urine Methadone, Qualitative NEG Urine Barbiturates NEG Urine Phencyclidine (PCP) Level NEG Ur Amphetamine/Methamphetamine NEG MDMA (Ecstasy) Screen NEG Urine Benzodiazepines Screen NEG Urine Cocaine Metabolite NEG Urine Marijuana (THC) NEG White Blood Count 12.31 Red Blood Count 4.61 Hemoglobin 12.8 Hematocrit 37.2 Mean Corpuscular Volume 80.7 Mean Corpuscular Hemoglobin 27.8 Mean Corpuscular Hemoglobin Concent 34.4 RDW Standard Deviation 39.9 RDW Coefficient of Variation 13.7 Platelet Count 211 Mean Platelet Volume 8.7 Sodium Level 136 Potassium Level 3.8 Chloride Level 103 Carbon Dioxide Level 26 Anion Gap 7.0 Blood Urea Nitrogen 14 Creatinine 0.57 Est Creatinine Clear Calc Drug Dose 147.5 Estimated GFR () 127.1 Estimated GFR (Non- 109.6 BUN/Creatinine Ratio 24.1 Random Glucose 99 Calcium Level 8.7 Total Bilirubin 0.3 Direct Bilirubin 0.1 Aspartate Amino Transferase (AST) 12 Alanine Aminotransferase (ALT) 27 Alkaline Phosphatase 86 Total Protein 7.1 Albumin 3.9 Thyroid Stimulating Hormone (TSH) 0.771 Salicylates Level < 1.7 Acetaminophen Level < 2 Ethyl Alcohol mg/dL < 3.0 POC Glucose 108 Total Time Total Time Spent (min): Greater than 30 minutes Total Time Included: examination of the patient, discharge planning, medication reconciliation, communication with other providers Tobacco Cessation at Discharge Smoking Status: Never Smoker FDA approved Prescription: non-smoker
== END 2017-07-02 11:59 | disposition home or self-care (01) | DRG 885 ==
LOC: C.EDB 12:02 → C.MHU 14:59
PROVIDERS: ADMIT Psychiatry & Neurology Psychiatry; ATTEND Psychiatry & Neurology Psychiatry
DX: F25.1 Schizoaffective disorder, depressive type (principal); E03.9 Hypothyroidism, unspecified; E11.9 Type 2 diabetes mellitus without complications; E78.5 Hyperlipidemia, unspecified; E66.9 Obesity, unspecified; I10 Essential (primary) hypertension; J45.909 Unspecified asthma, uncomplicated; Z91.5 Personal history of self-harm; Z68.39 Body mass index [BMI] 39.0-39.9, adult; Z79.84 Long term (current) use of oral hypoglycemic drugs; Z79.890 Hormone replacement therapy; Z79.899 Other long term (current) drug therapy; Z81.1 Family history of alcohol abuse and dependence; Z81.8 Family history of other mental and behavioral disorders; Z82.0 Family history of epilepsy and other diseases of the nervous system; Z82.49 Family history of ischemic heart disease and other diseases of the circulatory system; Z84.1 Family history of disorders of kidney and ureter

== ENCOUNTER → 2017-07-22 | Outpatient (CLI) | payer OTHER ==
[~2017-07-22] MED LIST changes: -ARIP30TA3 PO; +ATOR-22 PO; +CLON0.5T3 PO; -ESCI1TAB10 PO; +ESCI1TAB9 PO; +LAMO150T PO; -LPT10 PO; -MISCCAP80 PO; -MULT-506 PO; -SULF-302 PO; -THIO5CAP2 PO; -[UNRECOGNIZED DRUG - CODE] PO
[2017-07-22 15:12] LABS: HEMOGLOBIN A1C 5.3 % (4.5-5.6)
[2017-07-22 16:24] LABS: ALBUMIN 3.7 gm/dl (3.4-5.0); ALT/SGPT 22 U/L (12-78); AST/SGOT 9 U/L (15-37); BLOOD UREA NITROGEN 16 mg/dl (7-18); CALCIUM 8.8 mg/dl (8.5-10.1); CARBON DIOXIDE 26 mmol/L (21-32); GLUCOSE 165 mg/dl (70-99); POTASSIUM 3.8 mmol/L (3.5-5.1); SODIUM 138 mmol/L (136-145)
[2017-07-22 16:34] LABS: CREATININE RANDOM URINE 77.2 mg/dl
[2017-07-22 16:37] LABS: ALKALINE PHOSPHATASE 90 U/L (45-117); CHOLESTEROL 177 mg/dl (0-200); LDL CHOLESTEROL CALCULATED 96 mg/dl; TOTAL PROTEIN 7.3 gm/dl (6.4-8.2)
== END | disposition home or self-care (01) ==
LOC: C.LAB1850 13:34
PROVIDERS: ATTEND Physician Assistant
DX: E11.9 Type 2 diabetes mellitus without complications (principal)

== ENCOUNTER → 2017-08-06 | Outpatient (CLI) | payer OTHER | END | disposition home or self-care (01) | LOC: C.LABSPEC 16:13 | PROVIDERS: ATTEND Dermatology | DX: R21 Rash and other nonspecific skin eruption (principal) ==

== ENCOUNTER 2017-10-17 09:55 | Inpatient (IN) | payer OTHER ==
[~2017-10-17] VITALS: Ht 147.3 cm; Wt 124.1 kg
--- NOTE | 2017-10-17 10:27 | EMERGENCY ROOM VISIT NOTE ---
History Report prepared by Caty: Barney Acosta Under the Supervision of: Dr. Niles Doyle D.O. First contact with patient: 10:10 Chief Complaint: MENTAL HEALTH EVALUATION Stated Complaint: ANXIETY, DEPRESSION, HEARING VOICES History of Present Illness The patient is a 46 year old female who presents to the Emergency Room with complaints of severe and worsening anxiety. The patient has a history of anxiety and depression, and notes that she feels as though her symptoms have been worsening for "quite a while." She denies anything specifically that could have precipitated this acute worsening. The patient is on several psychiatric medications, and saw her therapist on Friday 2 days ago. She asked if she could have her Clonipine dosage increased from 3/day +1 prn, to 4/day to help her sleep. Her therapist denied this request, but did move a 1/2 dosage to before bed. This has not improved her symptoms, and she still cannot sleep well. The patient does admit to hearing voices. She was admitted to [address] [place] [address] on June 30 of this year. She does complain of discomfort in her abdomen as well. Source of History: patient Onset: "quite a while" Position: head Quality: other (Psych - anxiety) Timing: worsening Associated Symptoms: + abdominal pain Review of Systems See HPI for pertinent positives & negatives. A total of 10 systems reviewed and were otherwise negative. Past Medical & Surgical Medical Problems: (1) Asthma (2) Asthma with status asthmaticus (3) Bacterial pneumonia (4) Class 3 obesity due to excess calories in adult (5) Class II obesity (6) Depression (7) Diabetes mellitus type 2 (8) Dyslipidemia (9) Hypertension (10) Hypothyroidism (11) Schizoaffective disorder, depressive type (12) Suicidal ideation (13) Type 2 diabetes mellitus (14) UTI (urinary tract infection) Family History FH: cancer FH: heart disease Hypertension Kidney disease Kidney stones Seizures Social History Smoking Status: Former Smoker Alcohol Use: none Drug Use: none Marital Status: single Housing Status: lives alone Occupation Status: disabled Current/Historical Medications Scheduled Atorvastatin (Lipitor), 20 MG PO HS Desmopressin Acetate (Ddavp), 0.2 MG PO HS Ergocalciferol (Vitamin D 24542 Unit), 50,000 UNIT PO WK Escitalopram Oxalate (Lexapro), 15 MG PO DAILY Estradiol (Estradiol), 1 MG PO QAM Lamotrigine (Lamictal), 150 MG PO QAM Levothyroxine Sodium (Levothyroxine Sodium), 125 MCG PO QAM Losartan Potassium (Cozaar), 50 MG PO QAM Lurasidone Hcl (Latuda), 80 MG PO DAILY @DINNER Metformin Hcl (Glucophage), 1,000 MG PO BID Mirtazapine Soltab (Remeron Soltab), 15 MG PO HS Montelukast Sodium (Singulair), 10 MG PO HS Scheduled PRN Clonazepam (Klonopin), 0.5 MG PO TID PRN for Anxiety/Insomnia Allergies Coded Allergies: Chlorpromazine (Verified Allergy, Mild, LIGHTHEADED SHUFFLING GAIT, ) Aspirin (Verified Allergy, Unknown, 10/17/17) Doxycycline (Unverified Allergy, Unknown, HEARING VOICES, 10/17/17) Levofloxacin (Verified Allergy, Unknown, ?ALLERGIC TO LEVAQUIN?, 10/17/17) NSAIDs (Verified Allergy, Unknown, ., 10/17/17) Onion (Unverified Allergy, Unknown, VOMITING, 10/17/17) Penicillins (Verified Allergy, Unknown, RASH, 10/17/17) Prednisone (Verified Allergy, Unknown, ., 10/17/17) Quinine (Verified Allergy, Unknown, 10/17/17) Physical Exam Vital Signs Date Time Temp Pulse Resp B/P (MAP) Pulse Ox O2 Delivery O2 Flow Rate FiO2 10/17/17 12:53 92 18 171/74 94 10/17/17 12:32 92 18 171/74 94 Room Air 10/17/17 10:05 36.9 92 18 164/92 95 Room Air Physical Exam GENERAL: Patient is awake, alert, and in no acute distress. Patient is very anxious appearing. EYES: The conjunctivae are clear. The pupils are round and reactive. EARS, NOSE, MOUTH AND THROAT: The nose is without any evidence of any deformity. Mucous membranes are moist tongue is midline NECK: The neck is nontender and supple. RESPIRATORY: Normal respiratory effort is noted there is no evidence of wheezing rhonchi or rales CARDIOVASCULAR: Regular rate and rhythm noted there no murmurs rubs or gallops normal S1 normal S2 GASTROINTESTINAL: The abdomen is soft. Bowel sounds are present in all quadrants. Abdomen is nontender MUSCULOSKELETAL/EXTREMITIES: There is no evidence of gross deformity full range of motion is noted in the hips and shoulders SKIN: There is no obvious evidence of any rash. There are no petechiae, pallor or cyanosis noted. NEUROLOGIC: Patient is awake alert and oriented x3 strength is symmetric patellar reflexes are 2+ bilaterally PSYCH: Patient was very anxious appearing. Affect was flat, patient admits to suicidal ideation, with thoughts of hurting herself. No specific plan. Medical Decision & Procedures Laboratory Results 10/17/17 11:34 Red Blood Count 4.23, Mean Corpuscular Volume 79.2, Mean Corpuscular Hemoglobin 26.5, Mean Corpuscular Hemoglobin Concent 33.4, Mean Platelet Volume 8.6, Neutrophils (%) (Auto) 76.9, Lymphocytes (%) (Auto) 17.6, Monocytes (%) (Auto) 5.1, Eosinophils (%) (Auto) 0.0, Basophils (%) (Auto) 0.1, Neutrophils # (Auto) 8.89, Lymphocytes # (Auto) 2.04, Monocytes # (Auto) 0.59, Eosinophils # (Auto) 0.00, Basophils # (Auto) 0.01 10/17/17 11:34 Test 10/17/17 10:15 10/17/17 11:34 Urine Color YELLOW Urine Appearance CLEAR (CLEAR) Urine pH 6.5 (4.5-7.5) Urine Specific [place] 1.011 (1.000-1.030) Urine Protein NEG (NEG) Urine Glucose (UA) NEG (NEG) Urine Ketones NEG (NEG) Urine Occult Blood NEG (NEG) Urine Nitrite NEG (NEG) Urine Bilirubin NEG (NEG) Urine Urobilinogen NEG (NEG) Urine Leukocyte Esterase SMALL (NEG) Urine WBC (Auto) 10-30 /hpf (0-5) Urine RBC (Auto) 0-4 /hpf (0-4) Urine Hyaline Casts (Auto) 1-5 /lpf (0-5) Urine Epithelial Cells (Auto) >30 /lpf (0-5) Urine Bacteria (Auto) 2+ (NEG) Urine Test NEG (NEG) Urine Opiates Screen NEG (NEG) Urine Methadone, Qualitative NEG (NEG) Urine Barbiturates NEG (NEG) Urine Phencyclidine (PCP) Level NEG (NEG) Ur Amphetamine/Methamphetamine NEG (NEG) MDMA (Ecstasy) Screen NEG (NEG) Urine Benzodiazepines Screen NEG (NEG) Urine Cocaine Metabolite NEG (NEG) Urine Marijuana (THC) NEG (NEG) White Blood Count 11.56 K/uL (4.8-10.8) Red Blood Count 4.23 M/uL (4.2-5.4) Hemoglobin 11.2 g/dL (12.0-16.0) Hematocrit 33.5 % (37-47) Mean Corpuscular Volume 79.2 fL (80-100) Mean Corpuscular Hemoglobin 26.5 pg (25-34) Mean Corpuscular Hemoglobin Concent 33.4 g/dl (32-36) Platelet Count 231 K/uL (130-400) Mean Platelet Volume 8.6 fL (7.4-10.4) Neutrophils (%) (Auto) 76.9 % Lymphocytes (%) (Auto) 17.6 % Monocytes (%) (Auto) 5.1 % Eosinophils (%) (Auto) 0.0 % Basophils (%) (Auto) 0.1 % Neutrophils # (Auto) 8.89 K/uL (1.4-6.5) Lymphocytes # (Auto) 2.04 K/uL (1.2-3.4) Monocytes # (Auto) 0.59 K/uL (0.11-0.59) Eosinophils # (Auto) 0.00 K/uL (0-0.5) Basophils # (Auto) 0.01 K/uL (0-0.2) RDW Standard Deviation 39.5 fL (36.4-46.3) RDW Coefficient of Variation 13.8 % (11.5-14.5) Immature Granulocyte % (Auto) 0.3 % Immature Granulocyte # (Auto) 0.03 K/uL (0.00-0.02) Anion Gap 8.0 mmol/L (3-11) Est Creatinine Clear Calc Drug Dose 150.9 ml/min Estimated GFR () 125.6 Estimated GFR (Non- 108.4 BUN/Creatinine Ratio 21.9 (10-20) Calcium Level 8.7 mg/dl (8.5-10.1) Total Bilirubin 0.3 mg/dl (0.2-1) Direct Bilirubin 0.1 mg/dl (0-0.2) Aspartate Amino Transf (AST/SGOT) 15 U/L (15-37) Alanine Aminotransferase (ALT/SGPT) 27 U/L (12-78) Alkaline Phosphatase 82 U/L (45-117) Total Protein 6.7 gm/dl (6.4-8.2) Albumin 3.4 gm/dl (3.4-5.0) Thyroid Stimulating Hormone (TSH) 0.619 uIu/ml (0.300-4.500) Ethyl Alcohol mg/dL < 3.0 mg/dl (0-3) Laboratory results per my review. ED Course 1018: The patient was evaluated in room A5. A complete history and physical examination were performed. 1257: The patient will be accepted to [address] [place] [address] for an inpatient psychiatric stay. Medical Decision Differential diagnosis: Etiologies such as mood disorder, infection, hypoglycemia, electrolyte abnormalities, cardiac sources, intracerebral event, toxicologic, neurologic, as well as others were entertained. Nursing notes reviewed. The patient is a 46-year-old female who presented to the emergency department for mental health evaluation. The patient was medically cleared in the emergency department. She was evaluated by the mental health case sealer. She was felt to be a good candidate for inpatient management and was referred to [facility]. She was accepted at [facility]. and was admitted as a 201 admission. The 201 was filled out by myself. The patient was offered medication for anxiety but she refuses at this time. Impression Primary Impression: Acute anxiety Additional Impression: Suicidal ideation Scribe Attestation The scribe's documentation has been prepared under my direction and personally reviewed by me in its entirety. I confirm that the note above accurately reflects all work, treatment, procedures, and medical decision making performed by me. Departure Information Dispostion Mental Health Acute Care Referrals Pro,Niles Pichardo M.D. (PCP) Patient Instructions [facility] Problem Qualifiers
[2017-10-17 11:49] LABS: BASO % 0.1 %; BASO ABS # 0.01 K/uL (0-0.2); HEMATOCRIT 33.5 % (37-47); HEMOGLOBIN 11.2 g/dL (12.0-16.0); IG# 0.03 K/uL (0.00-0.02); LYMPH % 17.6 %; LYMPH ABS # 2.04 K/uL (1.2-3.4); MEAN CELL VOLUME 79.2 fL (80-100); MEAN CORPUSCULAR HEMOGLOBIN 26.5 pg (25-34); MEAN CORPUSCULAR HGB CONC 33.4 g/dl (32-36); MEAN PLATELET VOLUME 8.6 fL (7.4-10.4); MONO % 5.1 %; MONO ABS # 0.59 K/uL (0.11-0.59); NEUT % 76.9 %; NEUT ABS # 8.89 K/uL (1.4-6.5); PLATELET COUNT 231 K/uL (130-400); RED CELL DISTRIBUTION WIDTH CV 13.8 % (11.5-14.5); RED CELL DISTRIBUTION WIDTH SD 39.5 fL (36.4-46.3); WHITE BLOOD COUNT 11.56 K/uL (4.8-10.8)
[2017-10-17 12:18] LABS: ALBUMIN 3.4 gm/dl (3.4-5.0); CALCIUM 8.7 mg/dl (8.5-10.1); CREATININE 0.59 mg/dl (0.60-1.20); POTASSIUM 4.2 mmol/L (3.5-5.1); TOTAL PROTEIN 6.7 gm/dl (6.4-8.2)
[2017-10-17] MEDS ORDERED: LURA80TA PO (12:18)
[2017-10-17] MEDS ORDERED: MIRT15TA2 PO (12:18)
[2017-10-17] MEDS ORDERED: ERGO500037 PO (12:38)
[2017-10-17] MEDS ORDERED: hydrOXYzine HCL 25 MG TAB PO PRN ×2 (12:45)
[2017-10-17] MEDS ORDERED: MAGNESIUM HYDROXIDE SUSP 30 ML UDC PO PRN (12:45)
[2017-10-17] MEDS ORDERED: SODIUM CHLORIDE 0.65% NA SOLN 45 ML (OCEAN) PRN (12:45)
[2017-10-17] MEDS ORDERED: ALUMINUM/MAGNESIUM SUSP 30 ML UDC PO PRN (12:45)
[2017-10-17 12:53] VITALS: O2SAT 94
[2017-10-17 13:31] VITALS: BP 186/100; PULSE 92; TEMP 37; Ht 147.3 cm; Wt 124.1 kg
[2017-10-17] MEDS ORDERED: CLONAZEPAM 0.5 MG TAB PO PRN (13:45)
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
[2017-10-17] MEDS: TRAZODONE HCL 50 MG TAB PO SCH (15:06)
[2017-10-17] MEDS: METFORMIN HCL 500 MG TAB PO SCH (17:55)
[2017-10-17] MEDS: LURASIDONE HCL 40 MG TAB PO SCH (17:56)
[2017-10-17] MEDS ORDERED: DESMOPRESSIN ACETATE 0.1 MG TAB PO SCH (21:00)
[2017-10-17] MEDS ORDERED: ATORVASTATIN 20 MG TAB PO SCH (21:00)
[2017-10-17] MEDS: TRAZODONE HCL 100 MG TAB PO SCH (22:03)
[2017-10-17] MEDS: MONTELUKAST SOD 10 MG TAB PO SCH (22:03)
[2017-10-17] MEDS: ATORVASTATIN 20 MG TAB PO SCH (22:03)
[2017-10-17] MEDS: MIRTAZAPINE SOLTAB 15 MG PO SCH (22:03)
[2017-10-17] MEDS: DESMOPRESSIN ACETATE 0.1 MG TAB PO SCH (22:04)
[2017-10-18 06:27] VITALS: BP_SYST 138; BP_SYST 143; BP_DIAS 83; BP_DIAS 87; PULSE 84; PULSE 96; TEMP 36.8
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
[2017-10-18] MEDS ORDERED: ERGOCALCIFEROL 50,000 INTER.UNIT CAP PO SCH (09:00)
[2017-10-18] MEDS: LEVOTHYROXINE 125 MCG TAB PO SCH (09:29)
[2017-10-18] MEDS: ESTRADIOL 1 MG TAB PO SCH (09:29)
[2017-10-18] MEDS: LOSARTAN POTASSIUM 50 MG TAB PO SCH (09:31)
[2017-10-18] MEDS: METFORMIN HCL 500 MG TAB PO SCH ×2 (09:32→17:24)
[2017-10-18] MEDS: TRAZODONE HCL 50 MG TAB PO SCH ×2 (09:33→14:39)
[2017-10-18] MEDS: ESCITALOPRAM OXALATE 10 MG TAB PO SCH (09:34)
[2017-10-18] MEDS: LURASIDONE HCL 40 MG TAB PO SCH (17:24)
[2017-10-18] MEDS: ATORVASTATIN 20 MG TAB PO SCH (21:16)
[2017-10-18] MEDS: TRAZODONE HCL 100 MG TAB PO SCH (21:16)
[2017-10-18] MEDS: DESMOPRESSIN ACETATE 0.1 MG TAB PO SCH (21:16)
[2017-10-18] MEDS: MONTELUKAST SOD 10 MG TAB PO SCH (21:16)
[2017-10-18] MEDS: MIRTAZAPINE SOLTAB 15 MG PO SCH (21:16)
[2017-10-19] MEDS: ACETAMINOPHEN 325 MG TAB PO PRN (05:10)
[2017-10-19 06:58] VITALS: BP_SYST 129; BP_DIAS 80; BP_DIAS 84; PULSE 76; PULSE 77; TEMP 36.8
--- NOTE | 2017-10-19 07:44 | Psychiatric Progress Notes ---
Progress Note Date of Service October 19, 2017. Interval History Leisa Cross is a 46-year-old female with schizoaffective disorder depressed type who was admitted voluntarily on 10/17/17 for worsening anxiety, auditory hallucinations, and depression. Chief Complaint "I had a hard time yesterday afternoon". Subjective Patient was seen & assessed interval progress reviewed with Nursing and social work. Staff report she has been agitated and irritable at times, yelling. She was focused on her Klonopin, going back and forth between wanting it scheduled vs prn. She went to groups and rated her mood a 3-4 out of 10. She talked about her anger at God over her mother's and father's medical decline. She will meet with her family independence case manager again on Friday. Today she reports high anxiety, states she felt "uncomfortable, unable to take a shower" yesterday, and "had trouble asking the staff for Klonopin, but after I did, I felt much better." She ruminates on the Klonopin, how it is ordered, and how she will take it / if she'll be able to ask for it when she needs it. She eventually decided she'd prefer it to be scheduled, but at a lower dose. She fears being addicted to it, but also fears coming off it. She denies SI, but continues to experience auditory hallucinations of voices, which she describes as "demanding and continuous." She feels safe on the unit, and feels treatment is helping. Sleep Information Total Hours of Sleep: 8.50 Meal Information Percent of Breakfast Consumed: 100 Percent of Lunch Consumed: 40 Percent of Dinner Consumed: 100 Mental Status Exam During interview pt is: alert and oriented, cooperative Appearance: appropriately dressed, appropriately groomed Eye contact is: good Motor behavior is: steady gait & station (Walks with a cane) Speech: normal in rate, rhythm & volume Affect: depressed Mood is: depressed, anxious Thought process: goal directed Thought content: reality based without delusions Suicidal thought are: denied Homicidal thoughts are: denied Hallucinations: auditory (grandfather's voice telling her to hurt herself), denies visual Cognition: memory grossly intact, attention grossly intact, language grossly intact Intelligence estimated to be: average Insight: impaired Judgement: impaired Impression 46-year-old woman with schizoaffective disorder, admitted with worsening anxiety , depression and auditory hallucinations. On admission, trazodone was added 25 mg a.m. and 1400 with 100 mg at bedtime in an attempt to address her anxiety and sleep. Other medications were continued at outpatient doses. She has been able to express anger here, which is unusual for her, and is processing her stressors. She continues to require inpatient mental health treatment due to the severity of her condition, inability to function with her current symptoms. Plan (1) Schizoaffective disorder, depressive type 10/17 -Continue all of her outpatient medications at home doses. -Trial trazodone 25 mg a.m. and 1400 with 100 mg at bedtime to target anxiety during the day and sleep at night- -Coordinate her care with her family independence case manager brandon and other providers -Place patient on the [facility] wait list -stage manager has agreed to discontinue peers support services with her current provider -Explore the option of psych rehab -Every 15 minute checks for safety -Encourage participation in group and individual counseling -Assist the patient to explore and utilize healthy coping strategies -FLP and FBS for monitoring on atypicals 10/18 -Fasting labs: glucose elevated 114. Chol levels WNLs. -Continue current meds and plan, assist her to process stressors. -Did not get any clonazepam yesterday, but aware she has it prn. States trazodone is helping. 10/19 -Patient was very anxious about her clonazepam yesterday, had difficulty asking for it, and is worried about withdrawal. She would prefer to have it scheduled, but at a lower dose than she was previously taking, in deference to the long-term plan to taper her off of it. She agreed to 0.5 mg twice daily with breakfast and lunch, and I will keep 1 additional 0.5 mg dose daily as needed. Continue other medications, as she does feel the trazodone has been helpful. Continue to process stressors and healthy coping skills. Her family independence case manager will be coming in tomorrow. (2) Type 2 diabetes mellitus 11/17 - Continue home dose of metformin - FBS tomorrow - Encourage use of the exercise bike 11/18 - FBS elevated at 114. Follow-up with PCP. (3) Dyslipidemia 10/17 - continue home dose of atorvastatin - FLP (4) Hypertension 10/17 - Continue home dose of Losartan - Monitor BPs (5) Hypothyroidism 10/17 - TSH WNL - Continue home dose of levothyroxine 10/18 - UA contaminated - patient denies UTI symptoms. Advised that if she develops any symptoms to notify staff and we can recheck her UA. Discharge / Aftercare Planning Primary Care Physician: Name: Dr. Limon [facility] Therapist: Name: [facility] - Lamar Miller Date of Appointment: October 24, 2017 Grocery Clerk Marking: Name: Constantino Santo (cell) Partial or Psych Rehab: Name: [facility] [place] Other: [place] App[place] Medication Management - [place] Visit Code E&M Code: 36170 Inventory Assets Strengths: Good outpatient support, love of family, owns her home Needs: Willingness to look at new interventions Risk Factors Assessment : Yes /single/: Yes Higher / Fall in social status: No Access to guns: No Health problems: Yes Mental Health Diagnoses: Yes Substance use disorders: No Previous attempt: Yes Family history of suicide: No Previous psychiatric stay: Yes Hopelessness: Yes Smoker: No Protective Factors Assessment Mandaeism beliefs: Yes : No Responsible for young children: No Employed: Yes Stable relationships: Yes Supportive family: Yes Good rapport with provider: Yes Data Vital Signs Last 24 Hrs: Date Time Temp Pulse Resp B/P (MAP) Pulse Ox O2 Delivery O2 Flow Rate FiO2 10/19/17 06:58 36.8 76 18 129/80 77 129/84 Meds Administered Last 24 Hrs: Meds Administered (Past 24Hrs) Medications (Trade) Dose Ordered Sig/Christofer Route Start Time Stop Time Status Last Admin Dose Admin Acetaminophen (Tylenol Tab) 650 mg Q4H PRN PO 10/17/17 12:45 11/16/17 12:44 10/19/17 05:10 650 MG Clonazepam (Klonopin Tab) 0.5 mg TID PRN PO 10/17/17 13:45 11/16/17 13:44 10/18/17 12:51 0.5 MG Ergocalciferol (Vitamin D Cap) 50,000 interunit Q7D@0900 PO 10/18/17 09:00 11/17/17 08:59 10/18/17 09:34 50,000 INTERUNIT Escitalopram Oxalate (Lexapro Tab) 15 mg DAILY PO 10/18/17 09:00 11/17/17 08:59 10/18/17 09:34 15 MG Estradiol (Estrace Tab) 0.5 mg QAM PO 10/18/17 09:00 11/17/17 08:59 10/18/17 09:29 0.5 MG Lamotrigine (Lamictal Tab) 150 mg QAM PO 10/18/17 09:00 11/17/17 08:59 10/18/17 09:33 150 MG Levothyroxine Sodium (Synthroid Tab) 125 mcg DAILYBB PO 10/18/17 08:00 11/17/17 07:59 10/18/17 09:29 125 MCG Losartan Potassium (coZAAR TAB) 50 mg QAM PO 10/18/17 09:00 11/17/17 08:59 10/18/17 09:31 50 MG Lurasidone HCl (Latuda Tab) 80 mg QDD PO 10/17/17 17:45 11/16/17 17:44 10/18/17 17:24 80 MG Metformin HCl (Glucophage Tab) 1,000 mg BIDM PO 10/17/17 17:45 11/16/17 17:44 10/18/17 17:24 1,000 MG Mirtazapine (Remeron Solutab) 15 mg HS PO 10/17/17 22:00 11/16/17 21:59 10/18/17 21:16 15 MG Montelukast Sodium (Singulair Tab) 10 mg HS PO 10/17/17 22:00 11/16/17 21:59 10/18/17 21:16 10 MG Trazodone HCl (Desyrel Tab) 25 mg BID@0900,1400 PO 10/17/17 14:00 11/16/17 13:59 10/18/17 14:39 25 MG Trazodone HCl (Desyrel Tab) 100 mg HS PO 10/17/17 22:00 11/16/17 21:59 10/18/17 21:16 100 MG Desmopressin Acetate (Desmopressin Acetate) 0.2 mg HS PO 10/17/17 22:00 11/16/17 21:59 10/18/17 21:16 0.2 MG Atorvastatin Calcium (Lipitor Tab) 20 mg HS PO 10/17/17 22:00 11/16/17 21:59 10/18/17 21:16 20 MG Problem Qualifiers (1) Type 2 diabetes mellitus: Diabetes mellitus supervisor intermediates insulin use: without supervisor intermediates use
[2017-10-19] MEDS: ESCITALOPRAM OXALATE 10 MG TAB PO SCH (08:34)
[2017-10-19] MEDS: LOSARTAN POTASSIUM 50 MG TAB PO SCH (08:34)
[2017-10-19] MEDS: METFORMIN HCL 500 MG TAB PO SCH ×2 (08:34→17:28)
[2017-10-19] MEDS: TRAZODONE HCL 50 MG TAB PO SCH ×2 (08:34→14:03)
[2017-10-19] MEDS: ESTRADIOL 1 MG TAB PO SCH (08:34)
[2017-10-19] MEDS: LEVOTHYROXINE 125 MCG TAB PO SCH (08:35)
[2017-10-19] MEDS ORDERED: CLONAZEPAM 0.5 MG TAB PO PRN (08:45)
[2017-10-19] MEDS: CLONAZEPAM 0.5 MG TAB PO SCH ×2 (11:19→15:46)
[2017-10-19] MEDS: LURASIDONE HCL 40 MG TAB PO SCH (17:28)
[2017-10-19] MEDS: DESMOPRESSIN ACETATE 0.1 MG TAB PO SCH (20:52)
[2017-10-19] MEDS: MIRTAZAPINE SOLTAB 15 MG PO SCH (20:53)
[2017-10-19] MEDS: MONTELUKAST SOD 10 MG TAB PO SCH (20:53)
[2017-10-19] MEDS: TRAZODONE HCL 100 MG TAB PO SCH (20:53)
[2017-10-19] MEDS: ATORVASTATIN 20 MG TAB PO SCH (20:53)
[2017-10-20 07:06] VITALS: BP_SYST 143; BP_SYST 147; BP_DIAS 83; BP_DIAS 86; PULSE 73; PULSE 76; TEMP 36.6
[2017-10-20] MEDS: CLONAZEPAM 0.5 MG TAB PO SCH (08:04)
[2017-10-20] MEDS: LOSARTAN POTASSIUM 50 MG TAB PO SCH (08:04)
[2017-10-20] MEDS: LEVOTHYROXINE 125 MCG TAB PO SCH (08:04)
[2017-10-20] MEDS: ESCITALOPRAM OXALATE 10 MG TAB PO SCH (08:05)
[2017-10-20] MEDS: TRAZODONE HCL 50 MG TAB PO SCH ×2 (08:05→14:28)
[2017-10-20] MEDS: METFORMIN HCL 500 MG TAB PO SCH ×2 (08:05→17:42)
[2017-10-20] MEDS: ESTRADIOL 1 MG TAB PO SCH (08:05)
[2017-10-20] MEDS ORDERED: CLONAZEPAM 0.5 MG TAB PO PRN (10:45)
--- NOTE | 2017-10-20 10:52 | Psychiatric Progress Notes ---
Progress Note Date of Service October 20, 2017. Interval History Leisa Cross is a 46-year-old female with schizoaffective disorder depressed type who was admitted voluntarily on 10/17/17 for worsening anxiety, auditory hallucinations, and depression. Chief Complaint "The same". Subjective Patient was seen & assessed interval progress reviewed with Treatment Team. Staff report she is participating fully in treatment, and has a meeting with her case planner today. On my assessment, she reports mood is "about the same," a 3 or 4 out of 10. She reports improvement, in that sleep is better, she is not having suicidal thoughts, and anxiety is better. She thinks the trazodone is helpful, and although she received 2 doses of clonazepam yesterday, she thinks she may only need 1 dose daily. She asked to have one scheduled dose, with 2 as needed doses. She feels the groups are very helpful, and is riding the bike daily, which has also helped boost her mood. She is asking about someone helping her to contact her father, as she would like to have control of her chest moved to her brother, as her father's health is failing. She has not yet spoken to him about this, and is very anxious about it, asking repeatedly who would be the best person to assist her in having that conversation. She ultimately decided to ask the social insurance administrator to have a meeting with her father by phone to talk about this. She is uncertain when she will be ready for discharge, stating that she will agree with whatever the treatment team recommends. Review of Systems Denies pain, urinary frequency, urgency, and dysuria. Sleep Information Total Hours of Sleep: 8.50 Meal Information Percent of Breakfast Consumed: 100 Percent of Lunch Consumed: 100 Percent of Dinner Consumed: 100 Mental Status Exam During interview pt is: alert and oriented, cooperative Appearance: appropriately dressed, appropriately groomed Eye contact is: good Motor behavior is: steady gait & station (Walks with a cane), no abnormal motor movements Speech: normal in rate, rhythm & volume Affect: other (Brighter today, reactive and appropriate.) Mood is: depressed, anxious Thought process: goal directed, linear, logical Thought content: reality based without delusions Suicidal thought are: denied Homicidal thoughts are: denied Hallucinations: auditory (grandfather's voice telling her to hurt herself, decreased from admission), denies visual Cognition: memory grossly intact, attention grossly intact, language grossly intact Intelligence estimated to be: average Insight: fair Judgement: fair Impression 46-year-old woman with schizoaffective disorder, admitted with worsening anxiety , depression and auditory hallucinations. On admission, trazodone was added 25 mg a.m. and 1400 with 100 mg at bedtime in an attempt to address her anxiety and sleep, and clonazepam was decreased. Other medications were continued at outpatient doses. She has been able to express anger here, which is unusual for her, and is processing her stressors. She would like a meeting with her father by phone, as his health is failing and he is still managing her chest. She is making appropriate plans for the future, anticipating potential stressors and trying to address them. She is improving with support here, but remains unable to contract for safety outside of the hospital. At this point, she continues to require inpatient mental health treatment due to the severity of her condition, inability to function with her current symptoms. Plan (1) Schizoaffective disorder, depressive type 10/17 -Continue all of her outpatient medications at home doses. -Trial trazodone 25 mg a.m. and 1400 with 100 mg at bedtime to target anxiety during the day and sleep at night- -Coordinate her care with her case planner brandon and other providers -Place patient on the [facility] wait list -satellite manager has agreed to discontinue peers support services with her current provider -Explore the option of psych rehab -Every 15 minute checks for safety -Encourage participation in group and individual counseling -Assist the patient to explore and utilize healthy coping strategies -FLP and FBS for monitoring on atypicals 10/18 -Fasting labs: glucose elevated 114. Chol levels WNLs. -Continue current meds and plan, assist her to process stressors. -Did not get any clonazepam yesterday, but aware she has it prn. States trazodone is helping. 10/19 -Patient was very anxious about her clonazepam yesterday, had difficulty asking for it, and is worried about withdrawal. She would prefer to have it scheduled, but at a lower dose than she was previously taking, in deference to the long-term plan to taper her off of it. She agreed to 0.5 mg twice daily with breakfast and lunch, and I will keep 1 additional 0.5 mg dose daily as needed. Continue other medications, as she does feel the trazodone has been helpful. Continue to process stressors and healthy coping skills. Her case planner will be coming in tomorrow. 10/20 -Anxiety improving, and patient would like to decrease her clonazepam to one scheduled dose daily, with as needed doses if available. Opted to continue the 0.5 mg every morning dose. Continue trazodone, as she feels it has been helpful. Continue other medications at home doses. -Family meeting with father by phone to discuss her concerns about her trust , as she would like her brother to manage it due to father's failing health. -Meeting with outpatient blended case planner this afternoon. (2) Type 2 diabetes mellitus 11/17 - Continue home dose of metformin - FBS tomorrow - Encourage use of the exercise bike 11/18 - FBS elevated at 114. Follow-up with PCP. (3) Dyslipidemia 10/17 - continue home dose of atorvastatin - FLP (4) Hypertension 10/17 - Continue home dose of Losartan - Monitor BPs (5) Hypothyroidism 10/17 - TSH WNL - Continue home dose of levothyroxine 10/18 - UA contaminated - patient denies UTI symptoms. Advised that if she develops any symptoms to notify staff and we can recheck her UA. 10/20 -continues to deny symptoms of urinary tract infection. Discharge / Aftercare Planning Primary Care Physician: Name: Dr. Tam [facility] [place] [facility] Therapist: [facility]: [facility] Date of Appointment: October 24, 2017 Employee Health Rn: Name: Constantino Santo (cell) Partial or Psych Rehab: Name: [facility] - [place] Specialist: Name: [place] [id number] [facility] Appointment Notes: appt had been cancelled, call to reschedule Other: Name of Appointment #1: [facility] Medication Management - Stacey Visit Code E&M Code: 73475 Inventory Assets Strengths: Good outpatient support, love of family, owns her home Needs: Willingness to look at new interventions Risk Factors Assessment : Yes /single/: Yes Higher / Fall in social status: No Access to guns: No Health problems: Yes Mental Health Diagnoses: Yes Substance use disorders: No Previous attempt: Yes Family history of suicide: No Previous psychiatric stay: Yes Hopelessness: Yes Smoker: No Protective Factors Assessment Yarsani beliefs: Yes : No Responsible for young children: No Employed: Yes Stable relationships: Yes Supportive family: Yes Good rapport with provider: Yes Data Vital Signs Last 24 Hrs: Date Time Temp Pulse Resp B/P (MAP) Pulse Ox O2 Delivery O2 Flow Rate FiO2 10/20/17 07:06 36.6 73 18 143/83 76 147/86 Meds Administered Last 24 Hrs: Meds Administered (Past 24Hrs) Medications (Trade) Dose Ordered Sig/Christofer Route Start Time Stop Time Status Last Admin Dose Admin Clonazepam (Klonopin Tab) 0.5 mg BID@0800,1230 PO 10/19/17 09:00 11/18/17 08:59 10/20/17 08:04 0.5 MG Problem Qualifiers (1) Type 2 diabetes mellitus: Diabetes mellitus oysterman insulin use: without oysterman use
[2017-10-20] MEDS: LURASIDONE HCL 40 MG TAB PO SCH (17:43)
[2017-10-20] MEDS: DESMOPRESSIN ACETATE 0.1 MG TAB PO SCH (21:02)
[2017-10-20] MEDS: TRAZODONE HCL 100 MG TAB PO SCH (21:02)
[2017-10-20] MEDS: ATORVASTATIN 20 MG TAB PO SCH (21:03)
[2017-10-20] MEDS: MIRTAZAPINE SOLTAB 15 MG PO SCH (21:03)
[2017-10-20] MEDS: MONTELUKAST SOD 10 MG TAB PO SCH (21:04)
[2017-10-21] MEDS: ACETAMINOPHEN 325 MG TAB PO PRN (02:32)
[2017-10-21 06:44] VITALS: BP_SYST 132; BP_SYST 137; BP_DIAS 83; BP_DIAS 84; PULSE 71; PULSE 76; TEMP 36.8
[2017-10-21] MEDS: LEVOTHYROXINE 125 MCG TAB PO SCH (08:30)
[2017-10-21] MEDS: ESTRADIOL 1 MG TAB PO SCH (08:31)
[2017-10-21] MEDS: TRAZODONE HCL 50 MG TAB PO SCH (08:31)
[2017-10-21] MEDS: LOSARTAN POTASSIUM 50 MG TAB PO SCH (08:31)
[2017-10-21] MEDS: ESCITALOPRAM OXALATE 10 MG TAB PO SCH (08:32)
[2017-10-21] MEDS: METFORMIN HCL 500 MG TAB PO SCH (08:32)
[2017-10-21] MEDS ORDERED: CLONAZEPAM 0.5 MG TAB PO SCH (09:00)
[2017-10-21] MEDS ORDERED: DSY100 PO (10:23)
[2017-10-21] MEDS ORDERED: DSY50 PO (10:23)
[2017-10-21] MEDS ORDERED: EST1 PO (10:23)
--- NOTE | 2017-10-21 10:44 | Discharge Instructions ---
Discharge Information Report Includes Report will include the: Discharge Instructions & Summary Admission Admission Date / Time: October 17, 2017 at 13:00 Reason for Admission: Schizoaffective Disorder, Depressive Type Discharge Discharge Diagnosis / Problem: Schizoaffective disorder, depressed Condition at Discharge: Good Discharge Goals Goal(s): Decrease discomfort, Improve disease control Activity Recommendations Activity Limitations: resume your previous activity . Instructions / Follow-Up Instructions / Follow-Up . SPECIAL CARE INSTRUCTIONS: 1. Follow through with your scheduled aftercare appointments. If unable to keep an appointment, please call to reschedule. 2. Take your medication only as prescribed. Medication should not be changed or stopped without the approval of your doctor. In the event of worsening symptoms or concerns about side effects, contact your doctor immediately. 3. Utilize new healthy coping skills, anger management skills, and stress management skills learned during your hospitalization. Journal feelings and process them with a support person. Identify stressors or situations that may result in relapse, deterioration or inappropriate behaviors and develop a plan to deal with those issues. 4. If your coping skills are ineffective and you are in crisis, contact your outpatient providers for direction. If unable to reach your providers, please call the CAN HELP LINE AT or go to the closest Emergency Room. 5. Avoid alcohol and un-prescribed drugs. 6. You have been provided with the Mental Health Advance Directives Pamphlet for your review. AFTERCARE APPOINTMENTS: * Please call your insurance company prior to your scheduled appointment to confirm your aftercare providers are covered. Take your insurance information to your appointments. . Discharge / Aftercare Planning Primary Care Physician: Name: Dr. Tam Appointment Notes: appointment to be scheduled as needed Psychiatrist: Name: TEODORO Rodrigez Date of Appointment: Nov 19, 2017 Time of Appointment: 4:00 pm Appointment Notes: [address], [place], [place] [address] Therapist: Name Of Therapist: Abdulkadir Miller Date of Appointment: October 24, 2017 Time of Appointment: 3:00 pm Appointment Comments: [address], [place], [place] [address] Imaging Center Manager: Name: Constantino Santo (cell) Partial or Psych Rehab: Name: [facility] [place] Specialist: Name: JESSIE [facility] [address] Appointment Notes: appt had been cancelled, call to reschedule Other: Name of Appointment #1: Vera Santos Medication Management - Stacey . Follow-Up Care Plan for Follow-Up Care: The patient will see her therapist on Friday and the undersigned on 11/19/17 Current Hospital Diet Patient's current hospital diet: Regular Diet Discharge Diet Recommended Diet: Regular Diet Procedures Procedures Performed: No Pending Studies Pending Studies at Discharge: No Medical Emergencies . Who to Call and When: Medical Emergencies: For questions or emergencies related to your hospital stay, please contact the Inpatient Behavioral Health Unit at [phone]. A chemical tester is on-call 23/12 for the Behavioral Health Unit for emergencies At any time you feel your situation is an emergency, you may also call 911 immediately. . Non-Emergent Contact Non-Emergency issues call your: Psychiatrist, Therapist Advance Directives Existing Advance Directive: No Do You Have an Existing Mental: No Existing Living Will: No Existing Power of Instructional Services Specialist: No Advance Directives Info Given: To Pt/S.O. Advance Directives Reason: Declines as Mental Health Visit. Discharge Summary Admission HPI Per the Admitting provider: The patient is a 46 yo female, with known schizoaffective disorder, and an outpatient of [facility]. She has had a deteriorating course since the of her mother in June of 2016, with multiple hospitalizations, medication changes and most recently, a course of TMS with Dr. Alexis Espinal at [facility]. The course of TMS was something that her family was very much in favor of trying even though it was an off label application, and was not covered by her insurance. Her course of TMS ended 2-3 weeks ago, at which point she transitioned back to my practice. At that same time, the patient began to deteriorate, with more hallucinations, depression and anxiety and was making frequent contacts with her providers. She was seen 2 weeks ago urgently by Dr. Espinal, who increased her Latuda to 80 mg.. She was seen in my clinic this Friday at which time she reported feeling like the increase in Latuda was helpful, and although the voices were still there every day, that they were more tolerable. She complained of her recent weight gain since being back on Remeron and asked that it be stopped, while at the same time complaining that her sleep was disturbed, and she started taking a 4th prn dose of klonopin at night, which helped X 2 night. I instructed her at that time that I was not in favor of increasing BZDs in any way as she was likely tolerant to them anyway, but agreed that she could take 2 of her 3 doses at bedtime, and I would reduce her Remeron to 15 mg. In the last 2 days that patient reports poor sleep, increasing anxiety and auditory hallucinations of her grandfather's voice. She has become increasingly distressed, and today called me to say she didn't know what to do, that she was so anxious she thought she was going to . I referred her to the ED Upon arrival to the unit she is accompanied by Penny the case change management analyst who is there until her counseling case manager Ramiro arrives. We talk together. The patient is tearful and distressed and initially focused on medications, needing something for her terrible anxiety. She had been scheduled to board a plane to go to [facility] to visit her brother but felt unable to do so and her brother canceled the flight. I reviewed with her my observations of her course of treatment since TMS ended, and that she has been in deterioration in reaching out for emotional support. I suggest that I believe she would do better in a group living situation where there is someone around for reassurance at all times but she does not want to give up her condo which she owns. She also then went on to talk angrily about her channel specialist, Kacie, who has been a problem for her for more than a year. She makes clear statements , yelling, that she no longer wants Kacie is a channel specialist, that Kacie is not good for her and expresses her frustration that this has not already happened. Her anger continues to escalate and she begins to pound the desk in the interview room, voicing her frustration, fears and concerns. After the case management representatives leave, she continues with angry pounding on the desk and says that she is angry with God and has been for a long time. She is angry that he took her mother last year, and angry that her father is now in medical decline. She apologizes for her behaviors but feels that her emotions need to be expressed and away they have not been before. She prioritizes her mood and anxiety in her treatment here, again wanting more medications. She reports that her sleep has been disturbed, getting up with anxiety and hallucinations at night. Her appetite has been up, admits to some binge drinking and again attributes this to Remeron. Her anxiety has been high , denies specific triggers to it in recent days, but as above, has an accumulation of things on her mind. On Friday in my outpatient office, her speech was pressured, she was more effective than I have seen in a long time and I was concerned about benny. I see none of those symptoms today but I am concerned about the lability and her apparent inability to control her anger today. She admits to suicidal thoughts in the setting of the auditory hallucinations of her grandfather's voice telling her to hurt her self, but denies that she has any plan or intent. She denies visual hallucinations. Hospital Course (1) Schizoaffective disorder, depressive type 10/17 -Continue all of her outpatient medications at home doses. -Trial trazodone 25 mg a.m. and 1400 with 100 mg at bedtime to target anxiety during the day and sleep at night- -Coordinate her care with her counseling case manager ramiro and other providers -Place patient on the [facility] wait list -turf manager has agreed to discontinue peers support services with her current provider -Explore the option of psych rehab -Every 15 minute checks for safety -Encourage participation in group and individual counseling -Assist the patient to explore and utilize healthy coping strategies -FLP and FBS for monitoring on atypicals 10/18 -Fasting labs: glucose elevated 114. Chol levels WNLs. -Continue current meds and plan, assist her to process stressors. -Did not get any clonazepam yesterday, but aware she has it prn. States trazodone is helping. 10/19 -Patient was very anxious about her clonazepam yesterday, had difficulty asking for it, and is worried about withdrawal. She would prefer to have it scheduled, but at a lower dose than she was previously taking, in deference to the long-term plan to taper her off of it. She agreed to 0.5 mg twice daily with breakfast and lunch, and I will keep 1 additional 0.5 mg dose daily as needed. Continue other medications, as she does feel the trazodone has been helpful. Continue to process stressors and healthy coping skills. Her counseling case manager will be coming in tomorrow. 10/20 -Anxiety improving, and patient would like to decrease her clonazepam to one scheduled dose daily, with as needed doses if available. Opted to continue the 0.5 mg every morning dose. Continue trazodone, as she feels it has been helpful. Continue other medications at home doses. -Family meeting with father by phone to discuss her concerns about her trust , as she would like her brother to manage it due to father's failing health. -Meeting with outpatient blended counseling case manager this afternoon. (2) Type 2 diabetes mellitus 11/17 - Continue home dose of metformin - FBS tomorrow - Encourage use of the exercise bike 11/18 - FBS elevated at 114. Follow-up with PCP. (3) Dyslipidemia 10/17 - continue home dose of atorvastatin - FLP (4) Hypertension 10/17 - Continue home dose of Losartan - Monitor BPs (5) Hypothyroidism 10/17 - TSH WNL - Continue home dose of levothyroxine Risk Factors Assessment : Yes /single/: Yes Higher / Fall in social status: No Access to guns: No Health problems: Yes Mental Health Diagnoses: Yes Substance use disorders: No Previous attempt: Yes Family history of suicide: No Previous psychiatric stay: Yes Hopelessness: Yes Smoker: No Protective Factors Assessment Denominational beliefs: Yes : No Responsible for young children: No Employed: Yes Stable relationships: Yes Supportive family: Yes Good rapport with provider: Yes Day of Discharge Assessment COURSE OF HOSPITALIZATION: The patient has been on her unit for 4 days. She was admitted voluntarily with a worsening of her schizoaffective disorder, complicated by a trip to [place] to see her brother. The patient has been struggling for more than the last year worsened by the fact that her mother in June 2016. For further admission information I refer you to the attached history and physical. During her stay, very few adjustments were made to her medications. I did reduce her estradiol from 1 mg to 0.5 mg which the patient indicated her PROP WORKER had wanted her to do due to a family history of breast cancer. We also added trazodone low dose 25 mg twice daily at 9 AM and 2 PM to target her anxiety and added 100 mg at bedtime to target sleep. She felt that this was helpful to both her anxiety and sleep. Klonopin was as needed and she was encouraged to take less of this is we are hopeful to be able to wean her down since she has been on it for years. She was continued on outpatient doses of Latuda 80 mg which had been increased 1 week prior to admission. Overall, there was discussion among all providers about how to best meet her needs in view of her long-standing instability. Her outpatient providers including counseling case manager and case change management analyst were involved. The decision was made to discontinue peers support with her current person as Leisa has felt that to be an unhealthy relationship. Haile also agreed to put her name on a wait list for the [facility] are in the event of bed would open up and she remains unstable. She wants to continue to live independently if she can as she owns her own condo and wants to be able to live by herself if possible. One thing that was different during this stay was her level of expressed anger. There were times when she would yell and pounding her fist in order to make her point heard. She admitted for the first time that she was angry with God regarding her mother's and her father's declining health. The patient also expressed some anxiety about the possibility that I will be retiring in the near future and that this would mean a transition for her. She was able to talk with me about that and expressed an interest in transferring to Dr. Briana Shea should that happen and she is more comfortable with women. She continued to have auditory hallucinations during her stay, but she described them as manageable. Her anxiety improved overall. She was a good group and individual therapy participant. During her stay she decided to increase the amount of time she is spending it skills by half a day to replace the time that she was spending with her peers specialist. She has an appointment with her therapist, Lamar Miller on Friday, and is looking forward to that visit. Leisa is requesting discharge today. TRANSITION OF CARE: I have personally reviewed the patient's medications and aftercare appointments. I have counseled her not to change medications without discussing this with her provider. She has been encouraged to keep all appointments as scheduled. DAY OF DISCHARGE ASSESSMENT: Today the patient is requesting discharge. She says overall that she feels significantly improved and feels that she is ready to go home. She is looking forward to an appointment with her therapist on Friday and to attending skills and additional day tomorrow. She denies any suicidal thinking, believes her hallucinations are manageable. Today she is casually and appropriately dressed and groomed. Gait and station are within normal limits, walking with a quad cane. Affect is smiling. Speech is of normal rate volume and tone for the most part although at one point did talk loudly when becoming vehement about not having a channel specialist. Recent and remote memory are intact per conversation. Intelligence is estimated to be average. Insight and judgment are improved over admission. Laboratory Test 10/17/17 10:15 10/17/17 11:34 10/18/17 07:02 Urine Color YELLOW Urine Appearance CLEAR Urine pH 6.5 Urine Specific [place] 1.011 Urine Protein NEG Urine Glucose (UA) NEG Urine Ketones NEG Urine Occult Blood NEG Urine Nitrite NEG Urine Bilirubin NEG Urine Urobilinogen NEG Urine Leukocyte Esterase SMALL Urine WBC (Auto) 10-30 Urine RBC (Auto) 0-4 Urine Hyaline Casts (Auto) 1-5 Urine Epithelial Cells (Auto) >30 Urine Bacteria (Auto) 2+ Urine Test NEG Urine Opiates Screen NEG Urine Methadone, Qualitative NEG Urine Barbiturates NEG Urine Phencyclidine (PCP) Level NEG Ur Amphetamine/Methamphetamine NEG MDMA (Ecstasy) Screen NEG Urine Benzodiazepines Screen NEG Urine Cocaine Metabolite NEG Urine Marijuana (THC) NEG White Blood Count 11.56 Red Blood Count 4.23 Hemoglobin 11.2 Hematocrit 33.5 Mean Corpuscular Volume 79.2 Mean Corpuscular Hemoglobin 26.5 Mean Corpuscular Hemoglobin Concent 33.4 Platelet Count 231 Mean Platelet Volume 8.6 Neutrophils (%) (Auto) 76.9 Lymphocytes (%) (Auto) 17.6 Monocytes (%) (Auto) 5.1 Eosinophils (%) (Auto) 0.0 Basophils (%) (Auto) 0.1 Neutrophils # (Auto) 8.89 Lymphocytes # (Auto) 2.04 Monocytes # (Auto) 0.59 Eosinophils # (Auto) 0.00 Basophils # (Auto) 0.01 RDW Standard Deviation 39.5 RDW Coefficient of Variation 13.8 Immature Granulocyte % (Auto) 0.3 Immature Granulocyte # (Auto) 0.03 Sodium Level 135 Potassium Level 4.2 Chloride Level 99 Carbon Dioxide Level 28 Anion Gap 8.0 Blood Urea Nitrogen 13 Creatinine 0.59 Est Creatinine Clear Calc Drug Dose 150.9 Estimated GFR () 125.6 Estimated GFR (Non- 108.4 BUN/Creatinine Ratio 21.9 Random Glucose 89 Calcium Level 8.7 Total Bilirubin 0.3 Direct Bilirubin 0.1 Aspartate Amino Transferase (AST) 15 Alanine Aminotransferase (ALT) 27 Alkaline Phosphatase 82 Total Protein 6.7 Albumin 3.4 Thyroid Stimulating Hormone (TSH) 0.619 Ethyl Alcohol mg/dL < 3.0 Fasting Glucose 114 Triglycerides Level 86 Cholesterol Level 154 HDL Cholesterol 50 LDL Cholesterol, Calculated 87 VLDL Cholesterol, Calculated 17 Cholesterol/HDL Ratio 3.1 Total Time Total Time Spent (min): Greater than 30 minutes Total Time Included: examination of the patient, discharge planning, medication reconciliation, communication with other providers Tobacco Cessation at Discharge Smoking Status: Former Smoker FDA approved Prescription: non-smoker Problem Qualifiers (1) Type 2 diabetes mellitus: Diabetes mellitus skilled nursing insulin use: without skilled nursing use
== END 2017-10-21 12:50 | disposition home or self-care (01) | DRG 885 ==
LOC: C.EDB 09:57 → C.MHU 13:00
PROVIDERS: ADMIT Psychiatry & Neurology Child & Adolescent Psychiatry; ATTEND Psychiatry & Neurology Child & Adolescent Psychiatry
DX: F25.1 Schizoaffective disorder, depressive type (principal); R45.851 Suicidal ideations; Z68.43 Body mass index [BMI] 50.0-59.9, adult; F41.9 Anxiety disorder, unspecified; E11.9 Type 2 diabetes mellitus without complications; J45.909 Unspecified asthma, uncomplicated; I10 Essential (primary) hypertension; E78.5 Hyperlipidemia, unspecified; E03.9 Hypothyroidism, unspecified; E66.9 Obesity, unspecified; Z79.899 Other long term (current) drug therapy; Z79.84 Long term (current) use of oral hypoglycemic drugs; Z87.891 Personal history of nicotine dependence; Z88.8 Allergy status to other drugs, medicaments and biological substances; Z88.6 Allergy status to analgesic agent; Z88.1 Allergy status to other antibiotic agents; Z88.0 Allergy status to penicillin; Z91.018 Allergy to other foods; Z82.49 Family history of ischemic heart disease and other diseases of the circulatory system; Z84.1 Family history of disorders of kidney and ureter; Z84.89 Family history of other specified conditions; Z81.8 Family history of other mental and behavioral disorders; Z81.1 Family history of alcohol abuse and dependence

== ENCOUNTER 2018-07-16 11:35 | Inpatient (IN) ==
[2018-07-16] MEDS ORDERED: methylPREDNISolone 125 MG/2 ML VIAL IV STA (11:53)
[2018-07-16] MEDS ORDERED: ALBUTEROL 0.083% NEBU SOLN 3 ML VIAL NEB STA (11:53)
--- NOTE | 2018-07-16 12:33 | XRay Report ---
XR chest 1V portable CLINICAL HISTORY: Chest Pain dyspnea COMPARISON STUDY: No previous studies for comparison. FINDINGS: The bones soft tissues and hemidiaphragms are normal. The cardiomediastinal silhouette is n ormal. The lungs are clear. The pulmonary vasculature is normal. IMPRESSION: Negative chest. The above report was generated using voice recognition software. It may contain grammatical, syntax or spelling errors. Electronically signed by: Arturo Hart M.D. 07/16/2018 12:32 PM
[2018-07-16 12:37] LABS: Hemoglobin 10.6 g/dL (12.0-16.0); Immature Granulocytes # (auto) 0.01 K/uL (0.00-0.02); Immature Granulocytes % (auto) 0.2 %; Lymphocytes # (auto) 1.88 K/uL (1.2-3.4); Lymphocytes % (auto) 33.4 %; Mean Corpuscular Hgb Conc 31.2 g/dL (32-36); Mean Corpuscular Volume 79.1 fL (80-100); Mean Platelet Volume 8.5 fL (7.4-10.4); Monocytes # (auto) 0.53 K/uL (0.11-0.59); Monocytes % (auto) 9.4 %; Neutrophils # (auto) 3.21 K/uL (1.4-6.5); Platelet Count 189 K/uL (130-400); RDW Coefficient of Variation 16.1 % (11.5-14.5); RDW Standard Deviation 46.4 fL (36.4-46.3); White Blood Count 5.63 K/uL (4.8-10.8)
[2018-07-16 12:53] LABS: Alanine Aminotransferase 25 U/L (12-78); Albumin Level 3.1 gm/dl (3.4-5.0); Aspartate Aminotransferase 22 U/L (15-37); BUN Creatinine Ratio 14.8 (10-20); Blood Urea Nitrogen 10 mg/dl (7-18); Calcium 7.7 mg/dl (8.5-10.1); Carbon Dioxide 30 mmol/L (21-32); Chloride 101 mmol/L (98-107); Creatinine Clr Calc Pharmacy 139.6 ml/min; Est GFR (Non-African American) 102.7; Glucose 123 mg/dl (70-99); Potassium 3.9 mmol/L (3.5-5.1); Sodium 135 mmol/L (136-145)
[2018-07-16 12:58] LABS: Albumin Globulin Ratio 0.8 (0.9-2); Alkaline Phosphatase 84 U/L (45-117); Bilirubin,Total 0.3 mg/dl (0.2-1); Globulin 3.8 gm/dl (2.5-4.0); Total Protein 6.9 gm/dl (6.4-8.2); Troponin I < 0.015 ng/ml (0-0.045)
[2018-07-16] MEDS ORDERED: OSELTAMIVIR PHOSPHATE 75 MG CAP PO STA (13:27)
--- NOTE | 2018-07-16 14:29 | Emergency Department Note ---
Entered by Amber Novak acting as a scribe for History of Present Illness General Chief complaint: Shortness of Breath/Dyspnea Time Seen by Provider: 07/16/18 11:47 Source: patient Mode of arrival: EMS History of Present Illness Provider complaint: shortness of breath Onset (ago): day(s) (2) Location: chest Pain Consistency: + other (persistent) Quality: + other (shortness of breath) Relieved By: + other (breathing treatments) Associated symptoms: + other (cough, feeling feverish. denies: chest pain, abdominal pain, pain or swelling of legs, auditory or visual hallucinations) Treatments prior to arrival: other (breathing treatments) The patient is a 47 year old female who presents to the Emergency Room with complaints of persistent shortness of breath beginning about 2 days ago. She notes a cough. The patient reports she feels feverish, but has not taken her temperature. She denies chest pain, abdominal pain, or pain or swelling of legs. The patient has a history of asthma. She notes she has a nebulizer at home , but is unsure how to use it. The patient states her mental health is under control and she has been taking her medications. She denies auditory or visual hallucinations. The patient received breathing treatments by EMS en route to the ED, which improved her symptoms. Home Medications Home Medications Medication Instructions Recorded Confirmed Type atorvastatin [Lipitor] 20 mg PO HS 02/25/18 07/16/18 History desmopressin 0.2 mg PO HS 02/25/18 07/16/18 History ergocalciferol (vitamin D2) 50,000 unit PO MONTHLY 02/25/18 07/16/18 History [Vitamin D2] escitalopram oxalate [Lexapro] 20 mg PO DAILY 02/25/18 07/16/18 History estradiol [Estrace] 1 mg PO QAM 02/25/18 07/16/18 History lamotrigine [Lamictal] 200 mg PO QAM 02/25/18 07/16/18 History levothyroxine [Synthroid] 125 mcg PO QAM 02/25/18 07/16/18 History losartan [Cozaar] 50 mg PO QAM 02/25/18 07/16/18 History metformin [Glucophage] 1,000 mg PO BID 02/25/18 07/16/18 History montelukast [Singulair] 10 mg PO DAILY 02/25/18 07/16/18 History cholecalciferol (vitamin D3) 1 tab PO DAILY 07/16/18 07/16/18 History clonazepam [Klonopin] 0.25 mg PO BID PRN 07/16/18 07/16/18 History clozapine 2 tab PO HS 07/16/18 07/16/18 History clozapine 25 mg PO BID 07/16/18 07/16/18 History trazodone 100 mg PO ONCE HS 07/16/18 07/16/18 History albuterol sulfate 2 inha INH Q4H #18 gm 07/19/18 Rx benzonatate [Tessalon Perles] 100 mg PO TID PRN #30 cap 07/19/18 Rx prednisone 60 mg PO DAILY #27 tab 07/19/18 Rx Allergies Allergy/AdvReac Type Severity Reaction Status Date / Time chlorpromazine Allergy Mild LIGHTHEADED Verified 07/16/18 14:54 SHUFFLING GAIT aspirin Allergy Unknown Unknown Verified 07/16/18 14:54 doxycycline Allergy Unknown HEARING Unverified 07/16/18 14:54 VOICES levofloxacin Allergy Unknown ?ALLERGIC Verified 07/16/18 14:54 TO LEVAQUIN? NSAIDS (Non-Steroidal Allergy Unknown . Verified 07/16/18 14:54 Anti-Inflamma onion Allergy Unknown VOMITING Unverified 07/16/18 14:54 Penicillins Allergy Unknown RASH Verified 07/16/18 14:54 prednisone Allergy Unknown . Verified 07/16/18 14:54 quinine Allergy Unknown Unknown Verified 07/16/18 14:54 Past Med/Surg History Medical History Morbid obesity with BMI of 45.0-49.9, adult Influenza (Acute) Hypoxemia (Acute) Asthma exacerbation (Acute) SOB (shortness of breath) (Acute) Schizoaffective disorder, depressive type (Chronic 01/11/11) Asthma (Chronic) Class II obesity (Chronic) Depression (Chronic) Dyslipidemia (Chronic) Hypertension (Chronic) Hypothyroidism (Chronic) Type 2 diabetes mellitus (Chronic) IBS (irritable bowel syndrome) Family History Other No pertinent family history Social History Feels Safe at Home: Yes Smoking Status: Former smoker Beliefs That Will Affect Care: None Preferred Language: Moroccan Visual Impairment: No Limitations Hearing Ability: Normal Review of Systems See HPI for pertinent positives & negatives. and A total of 10 systems reviewed and were otherwise negative Physical Exam Vital Signs Vital Signs - 24 hr 07/16/18 11:42 07/16/18 12:05 07/16/18 12:08 Temperature 37 C Temperature Source Oral Sepsis Recent Fever Within 48 Hours No Sepsis New/Unexplained Change in Mental Status No Sepsis Action Taken by Nursing No Action Required Pulse Rate 97 H Pulse Rate [Left] 102 H Pulse Rhythm Regular Pulse Rhythm [Left] Regular Pulse Strength Normal Pulse Strength [Left] Normal Respiratory Rate 28 H 28 H Respiratory Effort / Characteristics Spontaneous Short of Breath Respiratory Depth Shallow Respiratory Pattern Tachypnea Blood Pressure 157/89 H Blood Pressure [Left Arm] Blood Pressure Mean 111 Blood Pressure Mean [Left Arm] Blood Pressure Position Lying Blood Pressure Position [Left Arm] Pulse Oximetry 100 81 L 97 Oxygen Delivery Method Nebulizer Room Air Nasal Cannula Oxygen Flow Rate 4 07/16/18 12:30 07/16/18 13:48 Temperature Temperature Source Sepsis Recent Fever Within 48 Hours Sepsis New/Unexplained Change in Mental Status Sepsis Action Taken by Nursing Pulse Rate Pulse Rate [Left] 99 H 108 H Pulse Rhythm Pulse Rhythm [Left] Regular Pulse Strength Pulse Strength [Left] Normal Respiratory Rate 26 H 18 Respiratory Effort / Characteristics Spontaneous Short of Breath Non-Labored Respiratory Depth Normal Respiratory Pattern Regular Blood Pressure Blood Pressure [Left Arm] 130/66 Blood Pressure Mean Blood Pressure Mean [Left Arm] 87 Blood Pressure Position Blood Pressure Position [Left Arm] Lying Pulse Oximetry 97 98 Oxygen Delivery Method Nasal Cannula Nasal Cannula Oxygen Flow Rate 4 4 General: Non-ill appearing middle-aged female in no acute distress. Tachypneic adn wheezing. O2 saturation 90% on room air at present. HEENT: Normal cephalic atraumatic. Pupils are equal round and reactive to light. Extraocular movements are intact. Oropharynx is pink with moist mucous membranes. No swelling of the mouth lips or tongue. Neck: Supple with a midline trachea. No meningeal signs or stiffness, no JVD or bruits. No Stridor. Chest: Wheezing bilaterally. Heart: regular rate and rhythm. Abdomen: Soft nontender, nondistended without rebound guarding or rigidity. Extremities: No cyanosis clubbing or edema. No calf tenderness or assymetry Spine/Back. Non tender to palpation. No CVA tenderness Skin: Good turgor without rashes. Neurologic exam: Cranial nerves two through 12 are intact. Motor and sensation are intact and symmetrical throughout. Course 1148: Past medical records reviewed. The patient was evaluated in room A12B, and a complete history and physical examination were performed. 1329: Upon reevaluation, the patient is resting. I discussed test results. They verbalized agreement with the treatment plan. 1332: I reviewed the patient's case with Dr. Watt, [facility] hospitalist. He will evaluate the patient for further management. 1408: Upon reevaluation, the patient is resting comfortably. Consultations Consultation #1: Dr. Watt, [facility] hospitalist. Time: 13:32 Administered Medications Discontinued Medications Albuterol (Ventolin 0.083% 2.5mg/3ml) 10 mg NEB NOW STA Stop: 07/16/18 11:54 Last Admin: 07/16/18 12:30 Dose: 10 mg Albuterol (Duoneb) 3 ml NEB Q4R JOSE Stop: 08/15/18 17:29 Last Admin: 07/19/18 11:07 Dose: 3 ml Admin: 07/19/18 07:13 Dose: 3 ml Admin: 07/19/18 04:06 Dose: Not Given Admin: 07/18/18 23:07 Dose: 3 ml Admin: 07/18/18 20:29 Dose: 3 ml Admin: 07/18/18 15:40 Dose: 3 ml Admin: 07/18/18 11:33 Dose: 3 ml Admin: 07/18/18 07:27 Dose: 3 ml Admin: 07/18/18 04:38 Dose: 3 ml Admin: 07/17/18 22:07 Dose: 3 ml Admin: 07/17/18 19:36 Dose: 3 ml Admin: 07/17/18 15:42 Dose: 3 ml Admin: 07/17/18 11:45 Dose: 3 ml Admin: 07/17/18 07:25 Dose: 3 ml Admin: 07/17/18 03:26 Dose: 3 ml Admin: 07/16/18 23:57 Dose: Not Given Admin: 07/16/18 20:13 Dose: 3 ml Admin: 07/16/18 18:05 Dose: Not Given Atorvastatin Calcium (Lipitor) 20 mg PO HS JOSE Stop: 08/15/18 20:59 Last Admin: 07/18/18 20:21 Dose: 20 mg Admin: 07/17/18 20:37 Dose: 20 mg Admin: 07/16/18 20:56 Dose: 20 mg Benzonatate (Tessalon Perle) 100 mg PO TID JOSE Stop: 08/15/18 20:59 Last Admin: 07/19/18 12:57 Dose: 100 mg Admin: 07/19/18 09:32 Dose: 100 mg Admin: 07/18/18 20:20 Dose: 100 mg Admin: 07/18/18 13:19 Dose: 100 mg Admin: 07/18/18 07:52 Dose: 100 mg Admin: 07/17/18 20:56 Dose: 100 mg Admin: 07/17/18 12:33 Dose: 100 mg Admin: 07/17/18 09:02 Dose: 100 mg Admin: 07/16/18 20:55 Dose: 100 mg Clonazepam (Klonopin) 0.25 mg PO BID PRN PRN Reason: anx Stop: 08/15/18 16:55 Last Admin: 07/19/18 12:58 Dose: 0.25 mg Admin: 07/19/18 07:59 Dose: 0.25 mg Admin: 07/18/18 13:24 Dose: 0.25 mg Admin: 07/17/18 17:00 Dose: 0.25 mg Admin: 07/17/18 09:11 Dose: 0.25 mg Clozapine (Clozapine) 200 mg PO JOSE Stop: 08/15/18 20:59 Last Admin: 07/18/18 20:21 Dose: 200 mg Admin: 07/17/18 20:37 Dose: 200 mg Admin: 07/16/18 20:56 Dose: 200 mg Clozapine (Clozaril) 25 mg PO DAILY@0900,1200 JOSE Stop: 08/16/18 08:59 Last Admin: 07/19/18 12:56 Dose: 25 mg Admin: 07/19/18 07:56 Dose: 25 mg Admin: 07/18/18 13:19 Dose: 25 mg Admin: 07/18/18 07:50 Dose: 25 mg Admin: 07/17/18 12:32 Dose: 25 mg Admin: 07/17/18 09:03 Dose: 25 mg Desmopressin Acetate (Ddavp) 0.2 mg PO JOSE Stop: 08/15/18 20:59 Last Admin: 07/18/18 20:20 Dose: 0.2 mg Admin: 07/17/18 20:37 Dose: 0.2 mg Admin: 07/16/18 20:55 Dose: 0.2 mg Enoxaparin Sodium (Lovenox) 40 mg SQ QAM JOSE Stop: 08/16/18 08:59 Last Admin: 07/19/18 07:55 Dose: 40 mg Admin: 07/18/18 07:55 Dose: 40 mg Admin: 07/17/18 08:58 Dose: 40 mg Escitalopram Oxalate (Lexapro) 20 mg PO DAILY JOSE Stop: 08/16/18 08:59 Last Admin: 07/19/18 07:53 Dose: 20 mg Admin: 07/18/18 07:47 Dose: 20 mg Admin: 07/17/18 08:59 Dose: 20 mg Estradiol (Estrace) 1 mg PO QAM JOSE Stop: 08/16/18 08:59 Last Admin: 07/19/18 07:54 Dose: 1 mg Admin: 07/18/18 07:53 Dose: 1 mg Admin: 07/17/18 08:59 Dose: 1 mg Guaifenesin (Mucinex) 1,200 mg PO Q12 JOSE Stop: 08/15/18 20:59 Last Admin: 07/19/18 07:55 Dose: 1,200 mg Admin: 07/18/18 20:22 Dose: 1,200 mg Admin: 07/18/18 07:49 Dose: 1,200 mg Admin: 07/17/18 20:37 Dose: 1,200 mg Admin: 07/17/18 09:00 Dose: 1,200 mg Admin: 07/16/18 20:57 Dose: 1,200 mg Methylprednisolone 40 mg/ (Syringe) 0.64 mls @ 1.5 mls/min IV Q12H JOSE Stop: 08/15/18 20:59 Last Admin: 07/19/18 09:29 Dose: 1.5 mls/min Admin: 07/18/18 20:20 Dose: 1.5 mls/min Admin: 07/18/18 07:56 Dose: 1.5 mls/min Admin: 07/17/18 20:56 Dose: 1.5 mls/min Admin: 07/17/18 09:11 Dose: 1.5 mls/min Admin: 07/16/18 20:55 Dose: 1.5 mls/min Insulin Aspart (Novolog Flexpen) 0 units SC ACHS [facility] Stop: 08/15/18 17:59 Last Admin: 07/19/18 12:55 Dose: 7 units Admin: 07/19/18 09:30 Dose: 14 units Admin: 07/18/18 20:18 Dose: Not Given Admin: 07/18/18 18:01 Dose: 34 units Admin: 07/18/18 13:20 Dose: 20 units Admin: 07/18/18 09:27 Dose: 20 units Admin: 07/17/18 20:34 Dose: 6 units Admin: 07/17/18 19:02 Dose: 21 units Admin: 07/17/18 12:32 Dose: 21 units Admin: 07/17/18 08:55 Dose: 19 units Admin: 07/16/18 21:01 Dose: 8 units Admin: 07/16/18 18:34 Dose: 23 units Insulin Aspart (Novolog Flexpen) 0 units SC TODAY@0000,0400 [facility] Stop: 07/17/18 04:01 Last Admin: 07/17/18 04:19 Dose: 5 units Admin: 07/17/18 00:23 Dose: 3 units Insulin Aspart (Novolog Flexpen) 0 units SC 0000 [facility] Stop: 07/18/18 00:01 Last Admin: 07/18/18 00:38 Dose: 3 units Insulin Glargine (Lantus Solostar Pen) 23 units SC NOW STA; Protocol Stop: 07/16/18 17:34 Last Admin: 07/16/18 18:32 Dose: 23 units Insulin Glargine (Lantus Solostar Pen) 20 units SC 2200 ONE; Protocol Stop: 07/16/18 22:01 Last Admin: 07/16/18 21:02 Dose: 20 units Insulin Glargine (Lantus Solostar Pen) 20 units SC QAM [facility]; Protocol Stop: 07/17/18 11:00 Last Admin: 07/17/18 08:57 Dose: 20 units Insulin Glargine (Lantus Solostar Pen) 0 units SC BID [facility]; Protocol Stop: 08/16/18 20:59 Last Admin: 07/19/18 09:30 Dose: 25 units Admin: 07/18/18 20:19 Dose: 20 units Admin: 07/18/18 09:28 Dose: 25 units Admin: 07/17/18 20:34 Dose: 25 units Lamotrigine (Lamictal) 200 mg PO QAM JOSE Stop: 08/16/18 08:59 Last Admin: 07/19/18 07:54 Dose: 200 mg Admin: 07/18/18 07:50 Dose: 200 mg Admin: 07/17/18 08:59 Dose: 200 mg Levothyroxine Sodium (Synthroid) 125 mcg PO DAILYBB JOSE Stop: 08/16/18 06:29 Last Admin: 07/19/18 05:45 Dose: 125 mcg Admin: 07/18/18 06:23 Dose: 125 mcg Admin: 07/17/18 05:36 Dose: 125 mcg Losartan Potassium (Cozaar) 50 mg PO QA JOSE Stop: 08/16/18 08:59 Last Admin: 07/19/18 07:53 Dose: 50 mg Admin: 07/18/18 07:49 Dose: 50 mg Admin: 07/17/18 09:02 Dose: 50 mg Methylprednisolone (Solumedrol) 125 mg IV NOW STA Stop: 07/16/18 11:54 Last Admin: 07/16/18 12:43 Dose: 125 mg Montelukast Sodium (Singulair) 10 mg PO DAILY JOSE Stop: 08/16/18 08:59 Last Admin: 07/19/18 07:54 Dose: 10 mg Admin: 07/18/18 07:51 Dose: 10 mg Admin: 07/17/18 09:01 Dose: Not Given Oseltamivir Phosphate (Tamiflu) 75 mg PO NOW STA Stop: 07/16/18 13:28 Last Admin: 07/16/18 13:46 Dose: 75 mg Oseltamivir Phosphate (Tamiflu) 75 mg PO BID JOSE Stop: 07/21/18 20:59 Last Admin: 07/19/18 07:52 Dose: 75 mg Admin: 07/18/18 20:20 Dose: 75 mg Admin: 07/18/18 07:51 Dose: 75 mg Admin: 07/17/18 20:56 Dose: 75 mg Admin: 07/17/18 09:00 Dose: 75 mg Admin: 07/16/18 20:58 Dose: 75 mg Polymyxin/Trimethoprim Sulfate (Polytrim) 1 drops OPR TID JOSE Stop: 08/17/18 16:29 Last Admin: 07/19/18 12:56 Dose: 1 drops Admin: 07/19/18 07:57 Dose: 1 drops Admin: 07/18/18 20:21 Dose: 1 drops Admin: 07/18/18 17:59 Dose: 1 drops Prednisone (Prednisone) 60 mg PO QAM JOSE Stop: 08/18/18 09:59 Last Admin: 07/19/18 10:46 Dose: 60 mg Trazodone HCl (Desyrel) 100 mg PO HS JOSE Stop: 08/15/18 20:59 Last Admin: 07/18/18 20:22 Dose: 100 mg Admin: 07/17/18 20:37 Dose: 100 mg Admin: 07/16/18 20:57 Dose: 100 mg Vitamin D (Vitamin D3) 1,000 units PO DAILY JOSE Stop: 08/16/18 08:59 Last Admin: 07/19/18 07:53 Dose: 1,000 units Admin: 07/18/18 07:49 Dose: 1,000 units Admin: 07/17/18 09:00 Dose: 1,000 units Medical Decision Making Differential Diagnosis Etiologies considered include asthma, exacerbation, bronchitis, pneumonia, sepsis, CHF, cardiac disease, electrolyte or metabolic abnormality. Medical Records Attestation: I reviewed the patient's medical records. Home Medications Current Medication List: was personally reviewed by me Laboratory Data Attestation: I reviewed the patient's lab results. Result diagrams: 07/19/18 06:09 07/19/18 06:09 Lab Results 07/16/18 07/16/18 07/16/18 Range/Units 12:23 12:23 12:25 WBC 5.63 (4.8-10.8) K/uL RBC 4.30 (4.2-5.4) M/uL Hgb 10.6 L (12.0-16.0) g/dL Hct 34.0 L (37-47) % MCV 79.1 L (80-100) fL MCH 24.7 L (25-34) pg MCHC 31.2 L (32-36) g/dL RDW Std Deviation 46.4 H (36.4-46.3) fL RDW Coeff of Bret 16.1 H (11.5-14.5) % Plt Count 189 (130-400) K/uL MPV 8.5 (7.4-10.4) fL Immature Gran % (Auto) 0.2 % Neut % (Auto) 57.0 % Lymph % (Auto) 33.4 % [place] % (Auto) 9.4 % Eos % (Auto) 0.0 % Baso % (Auto) 0.0 % Immature Gran # (Auto) 0.01 (0.00-0.02) K/uL Neut # (Auto) 3.21 (1.4-6.5) K/uL Lymph # (Auto) 1.88 (1.2-3.4) K/uL [place] # (Auto) 0.53 (0.11-0.59) K/uL Eos # (Auto) 0.00 (0-0.5) K/uL Baso # (Auto) 0.00 (0-0.2) K/uL PT (9.0-12.0) Seconds INR (0.9-1.1) APTT (21.0-31.0) Seconds PTT Ratio Sodium 135 L (136-145) mmol/L Potassium 3.9 (3.5-5.1) mmol/L Chloride 101 (98-107) mmol/L Carbon Dioxide 30 (21-32) mmol/L Anion Gap 4.0 (3-11) BUN 10 (7-18) mg/dl Creatinine 0.68 (0.6-1.2) mg/dl Est Cr Clr Drug Dosing 139.6 ml/min Est GFR ( Amer) 119.0 Est GFR (Non-Af Amer) 102.7 BUN/Creatinine Ratio 14.8 (10-20) Glucose 123 H (70-99) mg/dl POC Glucose (70-99) Estimat Average Glucose mg/dl Hemoglobin A1c (4.5-5.6) % POC Lactic Acid Sukhjinder (0.90-1.70) mmol/L Calcium 7.7 L (8.5-10.1) mg/dl Iron (35-150) mcg/dl TIBC (250-450) mcg/dl Transferrin (200-360) mg/dl Transferrin % Sat (15-50) % Ferritin (8-388) ng/ml Total Bilirubin 0.3 (0.2-1) mg/dl AST 22 (15-37) U/L ALT 25 (12-78) U/L Alkaline Phosphatase 84 (45-117) U/L POC Troponin I (0-0.045) ng/ml Troponin I < 0.015 (0-0.045) ng/ml Total Protein 6.9 (6.4-8.2) gm/dl Albumin 3.1 L (3.4-5.0) gm/dl Globulin 3.8 (2.5-4.0) gm/dl Albumin/Globulin Ratio 0.8 L (0.9-2) Lipase 89 (73-393) U/L Influenza Type A Ag Pos for Influ A A* (Neg) Influenza Type B Ag Neg for Influ B (Neg) 07/16/18 07/16/18 07/16/18 Range/Units 12:28 12:32 12:34 WBC (4.8-10.8) K/uL RBC (4.2-5.4) M/uL Hgb (12.0-16.0) g/dL Hct (37-47) % MCV (80-100) fL MCH (25-34) pg MCHC (32-36) g/dL RDW Std Deviation (36.4-46.3) fL RDW Coeff of Bret (11.5-14.5) % Plt Count (130-400) K/uL MPV (7.4-10.4) fL Immature Gran % (Auto) % Neut % (Auto) % Lymph % (Auto) % [place] % (Auto) % Eos % (Auto) % Baso % (Auto) % Immature Gran # (Auto) (0.00-0.02) K/uL Neut # (Auto) (1.4-6.5) K/uL Lymph # (Auto) (1.2-3.4) K/uL [place] # (Auto) (0.11-0.59) K/uL Eos # (Auto) (0-0.5) K/uL Baso # (Auto) (0-0.2) K/uL PT 10.6 (9.0-12.0) Seconds INR 1.1 (0.9-1.1) APTT 30.6 (21.0-31.0) Seconds PTT Ratio 1.2 Sodium (136-145) mmol/L Potassium (3.5-5.1) mmol/L Chloride (98-107) mmol/L Carbon Dioxide (21-32) mmol/L Anion Gap (3-11) BUN (7-18) mg/dl Creatinine (0.6-1.2) mg/dl Est Cr Clr Drug Dosing ml/min Est GFR ( Amer) Est GFR (Non-Af Amer) BUN/Creatinine Ratio (10-20) Glucose (70-99) mg/dl POC Glucose (70-99) Estimat Average Glucose mg/dl Hemoglobin A1c (4.5-5.6) % POC Lactic Acid Sukhjinder 1.45 (0.90-1.70) mmol/L Calcium (8.5-10.1) mg/dl Iron (35-150) mcg/dl TIBC (250-450) mcg/dl Transferrin (200-360) mg/dl Transferrin % Sat (15-50) % Ferritin (8-388) ng/ml Total Bilirubin (0.2-1) mg/dl AST (15-37) U/L ALT (12-78) U/L Alkaline Phosphatase (45-117) U/L POC Troponin I < 0.03 (0-0.045) ng/ml Troponin I (0-0.045) ng/ml Total Protein (6.4-8.2) gm/dl Albumin (3.4-5.0) gm/dl Globulin (2.5-4.0) gm/dl Albumin/Globulin Ratio (0.9-2) Lipase (73-393) U/L Influenza Type A Ag (Neg) Influenza Type B Ag (Neg) 07/16/18 07/16/18 07/17/18 Range/Units 17:03 20:35 00:09 WBC (4.8-10.8) K/uL RBC (4.2-5.4) M/uL Hgb (12.0-16.0) g/dL Hct (37-47) % MCV (80-100) fL MCH (25-34) pg MCHC (32-36) g/dL RDW Std Deviation (36.4-46.3) fL RDW Coeff of Bret (11.5-14.5) % Plt Count (130-400) K/uL MPV (7.4-10.4) fL Immature Gran % (Auto) % Neut % (Auto) % Lymph % (Auto) % [place] % (Auto) % Eos % (Auto) % Baso % (Auto) % Immature Gran # (Auto) (0.00-0.02) K/uL Neut # (Auto) (1.4-6.5) K/uL Lymph # (Auto) (1.2-3.4) K/uL [place] # (Auto) (0.11-0.59) K/uL Eos # (Auto) (0-0.5) K/uL Baso # (Auto) (0-0.2) K/uL PT (9.0-12.0) Seconds INR (0.9-1.1) APTT (21.0-31.0) Seconds PTT Ratio Sodium (136-145) mmol/L Potassium (3.5-5.1) mmol/L Chloride (98-107) mmol/L Carbon Dioxide (21-32) mmol/L Anion Gap (3-11) BUN (7-18) mg/dl Creatinine (0.6-1.2) mg/dl Est Cr Clr Drug Dosing ml/min Est GFR ( Amer) Est GFR (Non-Af Amer) BUN/Creatinine Ratio (10-20) Glucose (70-99) mg/dl POC Glucose 214 H 218 H 164 H (70-99) Estimat Average Glucose mg/dl Hemoglobin A1c (4.5-5.6) % POC Lactic Acid Sukhjinder (0.90-1.70) mmol/L Calcium (8.5-10.1) mg/dl Iron (35-150) mcg/dl TIBC (250-450) mcg/dl Transferrin (200-360) mg/dl Transferrin % Sat (15-50) % Ferritin (8-388) ng/ml Total Bilirubin (0.2-1) mg/dl AST (15-37) U/L ALT (12-78) U/L Alkaline Phosphatase (45-117) U/L POC Troponin I (0-0.045) ng/ml Troponin I (0-0.045) ng/ml Total Protein (6.4-8.2) gm/dl Albumin (3.4-5.0) gm/dl Globulin (2.5-4.0) gm/dl Albumin/Globulin Ratio (0.9-2) Lipase (73-393) U/L Influenza Type A Ag (Neg) Influenza Type B Ag (Neg) 07/17/18 07/17/18 07/17/18 Range/Units 03:59 05:45 05:45 WBC 5.95 (4.8-10.8) K/uL RBC 4.69 (4.2-5.4) M/uL Hgb 11.5 L (12.0-16.0) g/dL Hct 37.4 (37-47) % MCV 79.7 L (80-100) fL MCH 24.5 L (25-34) pg MCHC 30.7 L (32-36) g/dL RDW Std Deviation 45.3 (36.4-46.3) fL RDW Coeff of Bret 15.5 H (11.5-14.5) % Plt Count 221 (130-400) K/uL MPV 8.4 (7.4-10.4) fL Immature Gran % (Auto) % Neut % (Auto) % Lymph % (Auto) % [place] % (Auto) % Eos % (Auto) % Baso % (Auto) % Immature Gran # (Auto) (0.00-0.02) K/uL Neut # (Auto) (1.4-6.5) K/uL Lymph # (Auto) (1.2-3.4) K/uL [place] # (Auto) (0.11-0.59) K/uL Eos # (Auto) (0-0.5) K/uL Baso # (Auto) (0-0.2) K/uL PT (9.0-12.0) Seconds INR (0.9-1.1) APTT (21.0-31.0) Seconds PTT Ratio Sodium 138 (136-145) mmol/L Potassium 4.2 (3.5-5.1) mmol/L Chloride 102 (98-107) mmol/L Carbon Dioxide 28 (21-32) mmol/L Anion Gap 8.0 (3-11) BUN 14 (7-18) mg/dl Creatinine 0.70 (0.6-1.2) mg/dl Est Cr Clr Drug Dosing 135.6 ml/min Est GFR ( Amer) 117.9 Est GFR (Non-Af Amer) 101.7 BUN/Creatinine Ratio 19.7 (10-20) Glucose 203 H (70-99) mg/dl POC Glucose 188 H (70-99) Estimat Average Glucose mg/dl Hemoglobin A1c (4.5-5.6) % POC Lactic Acid Sukhjinder (0.90-1.70) mmol/L Calcium 8.4 L (8.5-10.1) mg/dl Iron (35-150) mcg/dl TIBC (250-450) mcg/dl Transferrin (200-360) mg/dl Transferrin % Sat (15-50) % Ferritin (8-388) ng/ml Total Bilirubin 0.4 (0.2-1) mg/dl AST 14 L (15-37) U/L ALT 24 (12-78) U/L Alkaline Phosphatase 84 (45-117) U/L POC Troponin I (0-0.045) ng/ml Troponin I (0-0.045) ng/ml Total Protein 7.1 (6.4-8.2) gm/dl Albumin 3.1 L (3.4-5.0) gm/dl Globulin 4.0 (2.5-4.0) gm/dl Albumin/Globulin Ratio 0.8 L (0.9-2) Lipase (73-393) U/L Influenza Type A Ag (Neg) Influenza Type B Ag (Neg) 07/17/18 07/17/18 07/17/18 Range/Units 05:45 07:50 11:04 WBC (4.8-10.8) K/uL RBC (4.2-5.4) M/uL Hgb (12.0-16.0) g/dL Hct (37-47) % MCV (80-100) fL MCH (25-34) pg MCHC (32-36) g/dL RDW Std Deviation (36.4-46.3) fL RDW Coeff of Bret (11.5-14.5) % Plt Count (130-400) K/uL MPV (7.4-10.4) fL Immature Gran % (Auto) % Neut % (Auto) % Lymph % (Auto) % [place] % (Auto) % Eos % (Auto) % Baso % (Auto) % Immature Gran # (Auto) (0.00-0.02) K/uL Neut # (Auto) (1.4-6.5) K/uL Lymph # (Auto) (1.2-3.4) K/uL [place] # (Auto) (0.11-0.59) K/uL Eos # (Auto) (0-0.5) K/uL Baso # (Auto) (0-0.2) K/uL PT (9.0-12.0) Seconds INR (0.9-1.1) APTT (21.0-31.0) Seconds PTT Ratio Sodium (136-145) mmol/L Potassium (3.5-5.1) mmol/L Chloride (98-107) mmol/L Carbon Dioxide (21-32) mmol/L Anion Gap (3-11) BUN (7-18) mg/dl Creatinine (0.6-1.2) mg/dl Est Cr Clr Drug Dosing ml/min Est GFR ( Amer) Est GFR (Non-Af Amer) BUN/Creatinine Ratio (10-20) Glucose (70-99) mg/dl POC Glucose 175 H 200 H (70-99) Estimat Average Glucose 143 mg/dl Hemoglobin A1c 6.6 H (4.5-5.6) % POC Lactic Acid Sukhjinder (0.90-1.70) mmol/L Calcium (8.5-10.1) mg/dl Iron (35-150) mcg/dl TIBC (250-450) mcg/dl Transferrin (200-360) mg/dl Transferrin % Sat (15-50) % Ferritin (8-388) ng/ml Total Bilirubin (0.2-1) mg/dl AST (15-37) U/L ALT (12-78) U/L Alkaline Phosphatase (45-117) U/L POC Troponin I (0-0.045) ng/ml Troponin I (0-0.045) ng/ml Total Protein (6.4-8.2) gm/dl Albumin (3.4-5.0) gm/dl Globulin (2.5-4.0) gm/dl Albumin/Globulin Ratio (0.9-2) Lipase (73-393) U/L Influenza Type A Ag (Neg) Influenza Type B Ag (Neg) 07/17/18 07/17/18 07/18/18 Range/Units 16:55 20:19 00:23 WBC (4.8-10.8) K/uL RBC (4.2-5.4) M/uL Hgb (12.0-16.0) g/dL Hct (37-47) % MCV (80-100) fL MCH (25-34) pg MCHC (32-36) g/dL RDW Std Deviation (36.4-46.3) fL RDW Coeff of Bret (11.5-14.5) % Plt Count (130-400) K/uL MPV (7.4-10.4) fL Immature Gran % (Auto) % Neut % (Auto) % Lymph % (Auto) % [place] % (Auto) % Eos % (Auto) % Baso % (Auto) % Immature Gran # (Auto) (0.00-0.02) K/uL Neut # (Auto) (1.4-6.5) K/uL Lymph # (Auto) (1.2-3.4) K/uL [place] # (Auto) (0.11-0.59) K/uL Eos # (Auto) (0-0.5) K/uL Baso # (Auto) (0-0.2) K/uL PT (9.0-12.0) Seconds INR (0.9-1.1) APTT (21.0-31.0) Seconds PTT Ratio Sodium (136-145) mmol/L Potassium (3.5-5.1) mmol/L Chloride (98-107) mmol/L Carbon Dioxide (21-32) mmol/L Anion Gap (3-11) BUN (7-18) mg/dl Creatinine (0.6-1.2) mg/dl Est Cr Clr Drug Dosing ml/min Est GFR ( Amer) Est GFR (Non-Af Amer) BUN/Creatinine Ratio (10-20) Glucose (70-99) mg/dl POC Glucose 215 H 197 H 162 H (70-99) Estimat Average Glucose mg/dl Hemoglobin A1c (4.5-5.6) % POC Lactic Acid Sukhjinder (0.90-1.70) mmol/L Calcium (8.5-10.1) mg/dl Iron (35-150) mcg/dl TIBC (250-450) mcg/dl Transferrin (200-360) mg/dl Transferrin % Sat (15-50) % Ferritin (8-388) ng/ml Total Bilirubin (0.2-1) mg/dl AST (15-37) U/L ALT (12-78) U/L Alkaline Phosphatase (45-117) U/L POC Troponin I (0-0.045) ng/ml Troponin I (0-0.045) ng/ml Total Protein (6.4-8.2) gm/dl Albumin (3.4-5.0) gm/dl Globulin (2.5-4.0) gm/dl Albumin/Globulin Ratio (0.9-2) Lipase (73-393) U/L Influenza Type A Ag (Neg) Influenza Type B Ag (Neg) 07/18/18 07/18/18 07/18/18 Range/Units 07:54 11:43 16:15 WBC (4.8-10.8) K/uL RBC (4.2-5.4) M/uL Hgb (12.0-16.0) g/dL Hct (37-47) % MCV (80-100) fL MCH (25-34) pg MCHC (32-36) g/dL RDW Std Deviation (36.4-46.3) fL RDW Coeff of Bret (11.5-14.5) % Plt Count (130-400) K/uL MPV (7.4-10.4) fL Immature Gran % (Auto) % Neut % (Auto) % Lymph % (Auto) % [place] % (Auto) % Eos % (Auto) % Baso % (Auto) % Immature Gran # (Auto) (0.00-0.02) K/uL Neut # (Auto) (1.4-6.5) K/uL Lymph # (Auto) (1.2-3.4) K/uL [place] # (Auto) (0.11-0.59) K/uL Eos # (Auto) (0-0.5) K/uL Baso # (Auto) (0-0.2) K/uL PT (9.0-12.0) Seconds INR (0.9-1.1) APTT (21.0-31.0) Seconds PTT Ratio Sodium (136-145) mmol/L Potassium (3.5-5.1) mmol/L Chloride (98-107) mmol/L Carbon Dioxide (21-32) mmol/L Anion Gap (3-11) BUN (7-18) mg/dl Creatinine (0.6-1.2) mg/dl Est Cr Clr Drug Dosing ml/min Est GFR ( Amer) Est GFR (Non-Af Amer) BUN/Creatinine Ratio (10-20) Glucose (70-99) mg/dl POC Glucose 184 H 197 H 201 H (70-99) Estimat Average Glucose mg/dl Hemoglobin A1c (4.5-5.6) % POC Lactic Acid Sukhjinder (0.90-1.70) mmol/L Calcium (8.5-10.1) mg/dl Iron (35-150) mcg/dl TIBC (250-450) mcg/dl Transferrin (200-360) mg/dl Transferrin % Sat (15-50) % Ferritin (8-388) ng/ml Total Bilirubin (0.2-1) mg/dl AST (15-37) U/L ALT (12-78) U/L Alkaline Phosphatase (45-117) U/L POC Troponin I (0-0.045) ng/ml Troponin I (0-0.045) ng/ml Total Protein (6.4-8.2) gm/dl Albumin (3.4-5.0) gm/dl Globulin (2.5-4.0) gm/dl Albumin/Globulin Ratio (0.9-2) Lipase (73-393) U/L Influenza Type A Ag (Neg) Influenza Type B Ag (Neg) 07/18/18 07/19/18 07/19/18 Range/Units 20:13 06:09 06:09 WBC 10.25 (4.8-10.8) K/uL RBC 4.78 (4.2-5.4) M/uL Hgb 11.8 L (12.0-16.0) g/dL Hct 37.9 (37-47) % MCV 79.3 L (80-100) fL MCH 24.7 L (25-34) pg MCHC 31.1 L (32-36) g/dL RDW Std Deviation 45.3 (36.4-46.3) fL RDW Coeff of Bret 15.6 H (11.5-14.5) % Plt Count 254 (130-400) K/uL MPV 8.6 (7.4-10.4) fL Immature Gran % (Auto) 0.3 % Neut % (Auto) 77.0 % Lymph % (Auto) 16.3 % [place] % (Auto) 6.3 % Eos % (Auto) 0.0 % Baso % (Auto) 0.1 % Immature Gran # (Auto) 0.03 H (0.00-0.02) K/uL Neut # (Auto) 7.89 H (1.4-6.5) K/uL Lymph # (Auto) 1.67 (1.2-3.4) K/uL [place] # (Auto) 0.65 H (0.11-0.59) K/uL Eos # (Auto) 0.00 (0-0.5) K/uL Baso # (Auto) 0.01 (0-0.2) K/uL PT (9.0-12.0) Seconds INR (0.9-1.1) APTT (21.0-31.0) Seconds PTT Ratio Sodium 138 (136-145) mmol/L Potassium 4.3 (3.5-5.1) mmol/L Chloride 102 (98-107) mmol/L Carbon Dioxide 28 (21-32) mmol/L Anion Gap 8.0 (3-11) BUN 21 H (7-18) mg/dl Creatinine 0.80 (0.6-1.2) mg/dl Est Cr Clr Drug Dosing 118.7 ml/min Est GFR ( Amer) 100.3 Est GFR (Non-Af Amer) 86.6 BUN/Creatinine Ratio 26.7 H (10-20) Glucose 148 H (70-99) mg/dl POC Glucose 140 H (70-99) Estimat Average Glucose mg/dl Hemoglobin A1c (4.5-5.6) % POC Lactic Acid Sukhjinder (0.90-1.70) mmol/L Calcium 8.8 (8.5-10.1) mg/dl Iron 31 L (35-150) mcg/dl TIBC 344 (250-450) mcg/dl Transferrin 265 (200-360) mg/dl Transferrin % Sat 8 L (15-50) % Ferritin 46.8 (8-388) ng/ml Total Bilirubin (0.2-1) mg/dl AST (15-37) U/L ALT (12-78) U/L Alkaline Phosphatase (45-117) U/L POC Troponin I (0-0.045) ng/ml Troponin I (0-0.045) ng/ml Total Protein (6.4-8.2) gm/dl Albumin (3.4-5.0) gm/dl Globulin (2.5-4.0) gm/dl Albumin/Globulin Ratio (0.9-2) Lipase (73-393) U/L Influenza Type A Ag (Neg) Influenza Type B Ag (Neg) 07/19/18 07/19/18 Range/Units 07:31 11:39 WBC (4.8-10.8) K/uL RBC (4.2-5.4) M/uL Hgb (12.0-16.0) g/dL Hct (37-47) % MCV (80-100) fL MCH (25-34) pg MCHC (32-36) g/dL RDW Std Deviation (36.4-46.3) fL RDW Coeff of Bret (11.5-14.5) % Plt Count (130-400) K/uL MPV (7.4-10.4) fL Immature Gran % (Auto) % Neut % (Auto) % Lymph % (Auto) % [place] % (Auto) % Eos % (Auto) % Baso % (Auto) % Immature Gran # (Auto) (0.00-0.02) K/uL Neut # (Auto) (1.4-6.5) K/uL Lymph # (Auto) (1.2-3.4) K/uL [place] # (Auto) (0.11-0.59) K/uL Eos # (Auto) (0-0.5) K/uL Baso # (Auto) (0-0.2) K/uL PT (9.0-12.0) Seconds INR (0.9-1.1) APTT (21.0-31.0) Seconds PTT Ratio Sodium (136-145) mmol/L Potassium (3.5-5.1) mmol/L Chloride (98-107) mmol/L Carbon Dioxide (21-32) mmol/L Anion Gap (3-11) BUN (7-18) mg/dl Creatinine (0.6-1.2) mg/dl Est Cr Clr Drug Dosing ml/min Est GFR ( Amer) Est GFR (Non-Af Amer) BUN/Creatinine Ratio (10-20) Glucose (70-99) mg/dl POC Glucose 141 H 134 H (70-99) Estimat Average Glucose mg/dl Hemoglobin A1c (4.5-5.6) % POC Lactic Acid Sukhjinder (0.90-1.70) mmol/L Calcium (8.5-10.1) mg/dl Iron (35-150) mcg/dl TIBC (250-450) mcg/dl Transferrin (200-360) mg/dl Transferrin % Sat (15-50) % Ferritin (8-388) ng/ml Total Bilirubin (0.2-1) mg/dl AST (15-37) U/L ALT (12-78) U/L Alkaline Phosphatase (45-117) U/L POC Troponin I (0-0.045) ng/ml Troponin I (0-0.045) ng/ml Total Protein (6.4-8.2) gm/dl Albumin (3.4-5.0) gm/dl Globulin (2.5-4.0) gm/dl Albumin/Globulin Ratio (0.9-2) Lipase (73-393) U/L Influenza Type A Ag (Neg) Influenza Type B Ag (Neg) Imaging Data Radiologist's Impression: Radiology results as stated below per my review and the radiologist's interpretation: XR chest 1V portable CLINICAL HISTORY: Chest Pain dyspnea COMPARISON STUDY: No previous studies for comparison. FINDINGS: The bones soft tissues and hemidiaphragms are normal. The cardiomediastinal silhouette is normal. The lungs are clear. The pulmonary vasculature is normal. IMPRESSION: Negative chest. The above report was generated using voice recognition software. It may contain grammatical, syntax or spelling errors. Electronically signed by: Arturo Hart M.D. 07/16/2018 12:32 PM ECG Data Attestation: I personally reviewed and interpreted this ECG as follows: Indication: SOB/dyspnea Rate (beats per minute): 99 Rhythm: normal sinus Findings: + other (Low voltage); no PAC, no PVC, no ST depression and no ST elevation Comparison ECG Date: from (03/10/18) Change: no significant change Blood Pressure Blood Pressure Findings: Elevated blood pressure Blood Pressure Disposition: further management by hospitalist RILEY Narrative This patient comes in as described above. She is placed in room A 12. 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 she has been sick for several days. She is audibly wheezing when she arrives and she has a documented O2 saturation of 81%. We did give her 1 hour long albuterol/Atrovent neb as well as SoluMedrol 125 mgs IV. She has SoluMedrol listed as an allergy but says she just starts to hallucinate I think 1 dose is okay she says she is okay when she is admitted. Chest x-ray does not show any focal infiltrates or congestive heart failure. She has no acute electrolyte or metabolic abnormalities. EKG does not suggest acute coronary syndrome or arrhythmia. Her influenza was positive she was given p.o. Tamiflu. I do think she needs to be admitted/observe for her asthma exacerbation which appears to be exacerbated by Tamiflu. She was hypoxemic as well. I did consult Dr. Montoya to see her in the ER for these measures. Impression & Plan Influenza, Hypoxemia, Asthma exacerbation, SOB (shortness of breath) Discharge Plan Visit Data *Final* Discharge Date/Time: 07/16/18 16:39 Chief Complaint: Shortness of Breath/Dyspnea ED Provider: Darin Rascon Discharge Problem: Influenza, Hypoxemia, Asthma exacerbation, SOB (shortness of breath) Patient Disposition: Admitted As Inpatient Condition: Good Discharge Instructions Interventions: ED Discharge Assessment Last Done: 07/16/18 16:39 The scribe's documentation has been prepared under my direction and personally reviewed by me in its entirety. I confirm that the note above accurately reflects all work, treatment, procedures, and medical decision making performed by me.
--- NOTE | 2018-07-16 15:29 | History & Physical Report ---
Date of Service July 16, 2018 Assessment & Plan (1) Influenza: -Admit to [facility] -Influenza A + -Continue supportive care with supplemental O2, Mucinex, Tessalon Perles, Tylenol, steroids -Tamiflu 75 mg BID -Continuous pulse ox -CXR reviewed without signs of infiltrate suggestive of any infectious process. -Patient is afebrile here although reports fevers and chills at home. No leukocytosis. (2) Hypoxemia: -Patient is requiring 4 L NC with O2 sats at 91% at bedside, typically does not require any oxygen at home -Continue supportive therapy as above (3) Asthma exacerbation: -Continue Solu-Medrol 40 mg Q12h, received loading dose in the ER, continue to taper (4) SOB (shortness of breath): -Improved with nebulizer treatments, secondary to above. (5) Schizoaffective disorder, depressive type: (6) Depression: - Continue clozapine 25 mg at noon and 225 mg HS, Klonopin 0.25 mg p.o. twice daily as needed, Lexapro 20 mg daily, lamotrigine 200 mg QAM (7) Hypertension: -Continue losartan 50 mg QAM (8) Dyslipidemia: - Cont statin therapy (9) Hypothyroidism: - Cont levothyroxine 125 mcg every morning (10) Type 2 diabetes mellitus: -Hold metformin -ISS with Accu-Cheks AC at bedtime -Last A1c = 6.1 in May 2018, no need to recheck. -Pharmacy consulted with steroid use and elevated glucose. (11) DVT prophylaxis: -Lovenox subcu (12) Morbid obesity with BMI of 45.0-49.9, adult: - Diet and exercise will need to be encouraged prior to discharge when respiratory status improves. - Continue diabetic/HH diet as above. History of Present Illness Primary Care Provider: Niles Tam MD This is a 47 yo F with PMH of DM type II, HTN, HLD, hypothyroidism, obesity with BMI of 47, schizoaffective disorder, depression, history of suicidal ideation, intellectual disability who presents with worsening cough, sweats and chills, difficulty breathing and generalized malaise for the last 4 days. Patient notes that her breathing was significantly worse this morning. She was unable to complete ADLs. Her appetite has been poor with little fluid intake. She is currently requiring supplemental oxygen at 4 L to maintain an O2 sat of 91%. Patient has already completed a 1 hour long nebulizer treatment. Patient was found to be influenza A +. Patient is also slightly tachycardic with a pulse in the low 100s. Her respirations are increased at 25. Allergies Allergy/AdvReac Type Severity Reaction Status Date / Time chlorpromazine Allergy Mild LIGHTHEADED Verified 07/16/18 14:54 SHUFFLING GAIT aspirin Allergy Unknown Unknown Verified 07/16/18 14:54 doxycycline Allergy Unknown HEARING Unverified 07/16/18 14:54 VOICES levofloxacin Allergy Unknown ?ALLERGIC Verified 07/16/18 14:54 TO LEVAQUIN? NSAIDS (Non-Steroidal Allergy Unknown . Verified 07/16/18 14:54 Anti-Inflamma onion Allergy Unknown VOMITING Unverified 07/16/18 14:54 Penicillins Allergy Unknown RASH Verified 07/16/18 14:54 prednisone Allergy Unknown . Verified 07/16/18 14:54 quinine Allergy Unknown Unknown Verified 07/16/18 14:54 Home Medications Home Medications Medication Instructions Recorded Confirmed Type atorvastatin [Lipitor] 20 mg PO HS 02/25/18 07/16/18 History desmopressin 0.2 mg PO HS 02/25/18 07/16/18 History ergocalciferol (vitamin D2) 50,000 unit PO MONTHLY 02/25/18 07/16/18 History [Vitamin D2] escitalopram oxalate [Lexapro] 20 mg PO DAILY 02/25/18 07/16/18 History estradiol [Estrace] 1 mg PO QAM 02/25/18 07/16/18 History lamotrigine [Lamictal] 200 mg PO QAM 02/25/18 07/16/18 History levothyroxine [Synthroid] 125 mcg PO QAM 02/25/18 07/16/18 History losartan [Cozaar] 50 mg PO QAM 02/25/18 07/16/18 History metformin [Glucophage] 1,000 mg PO BID 02/25/18 07/16/18 History montelukast [Singulair] 10 mg PO DAILY 02/25/18 07/16/18 History cholecalciferol (vitamin D3) 1 tab PO DAILY 07/16/18 07/16/18 History [Vitamin D3] clonazepam [Klonopin] 0.25 mg PO BID PRN 07/16/18 07/16/18 History clozapine 2 tab PO HS 07/16/18 07/16/18 History clozapine 25 mg PO BID 07/16/18 07/16/18 History trazodone 100 mg PO ONCE HS 07/16/18 07/16/18 History Past Med/Surg History Medical History Morbid obesity with BMI of 45.0-49.9, adult Influenza (Acute) Hypoxemia (Acute) Asthma exacerbation (Acute) SOB (shortness of breath) (Acute) Schizoaffective disorder, depressive type (Chronic 01/11/11) Asthma (Chronic) Class II obesity (Chronic) Depression (Chronic) Dyslipidemia (Chronic) Hypertension (Chronic) Hypothyroidism (Chronic) Type 2 diabetes mellitus (Chronic) IBS (irritable bowel syndrome) Family History Other No pertinent family history Social History Current Living Situation: Alone Other Information That Helps Us Care for You: No Feels Safe at Home: Yes Safety Concerns: Feels Safe At This Time Smoking Status: Former smoker Do You Dip or Chew Tobacco: No Second Hand Exposure: No Tobacco Cessation Education Requested by Patient: No Hx Alcohol Use: No Hx Substance Use: No Beliefs That Will Affect Care: None Preferred Language: Serbian Communication Ability: Effective Superior Court Justice Required: No Review of Systems Constitutional: + chills, + sweats and + fatigue; no fever (did not take temperature at home) Eyes: no diplopia and no worsening vision Ear, Nose, Mouth, Throat: no dizziness, no nasal discharge, no facial pain and no sore throat Respiratory: + cough, + dyspnea and + dyspnea on exertion; no sputum production and no wheezing Cardiovascular: no chest pain, no palpitations, no lightheadedness and no syncope Gastrointestinal: no nausea, no vomiting, no constipation and no diarrhea/loose stools no diarrhea Genitourinary (Female): no dysuria, no urinary frequency, no urinary incontinence and no hematuria Musculoskeletal: no back pain, no joint pain, no swelling and no muscle weakness Integumentary: no rash, no lesions and no wounds Neurologic: no gait abnormality, no falls, no numbness, no dizziness and no syncope Psychiatric: + depression and + abnormal sleep pattern; no suicidal ideation, no anxiety and no hallucinations Endocrine: no fatigue Physical Exam 2 Vital Signs (Past 24 Hours): Last Vital Signs Temp 37 C 07/16/18 11:42 Pulse 108 H 07/16/18 13:48 Resp 18 07/16/18 13:48 BP 130/66 07/16/18 13:48 Pulse Ox 98 07/16/18 13:48 Physical Exam: General: awake, alert, no apparent distress, morbidly obese Head: Normocephalic, atraumatic ENT: PERRL, EOMI, no pharyngeal exudate, mucous membranes moist Chest: On 4L via NC, audible wheeze, + diffuse coarse breath sounds in the right compared to the left. Cardiac: Sinus tach, HR = 100, no murmur, no JVD, normal peripheral pulses, good capillary refill Abdominal: NABS x 4 quadrants, soft, nontender to palpation, no rebound, guarding or tenderness Extremities: Normal inspection, no peripheral edema or erythema, calfs nontender to palpation Psych: Depressed mood, + flat affect Neuro: AAO x 3, strength intact bilaterally and related 5/5, no motor deficits, speech is clear, no peripheral sensory deficits Results & Data Diagnostic Findings XR chest 1V portable CLINICAL HISTORY: Chest Pain dyspnea COMPARISON STUDY: No previous studies for comparison. FINDINGS: The bones soft tissues and hemidiaphragms are normal. The cardiomediastinal silhouette is normal. The lungs are clear. The pulmonary vasculature is normal. IMPRESSION: Negative chest. ECG Additional Comments: 16-JUL-2018 12:51:57 [facility] Normal sinus rhythm Low voltage QRS Borderline ECG When compared with ECG of 10-MAR-2018 16:12, No significant change was found Vent. rate 99 BPM KS interval 134 ms QRS duration 88 ms QT/QTc 346/444 ms P-R-T axes 57 17 43 Code Status & VTE Plan Code Status DNR Supervising Physician Co-Signing Physician Notes Pt seen/examined following MINGO Sal. Orders and plan of admission formulated with MINGO. 47 y/o F Hx DM II, HTN, HLD, hypothyroidism, schizoaffective disorder, depression, intellectual impairment - presenting with a cough, probable fevers, wheezing and SOB. Requiring 4 L 02 to maintain an adequate sat on arrival to the ER. She is influ A+ and had a marginal response to an hour long neb. OE Uncomfortable, morbidly obese, middle-aged F - no overt distress S1,2 tachy, R, faint heart sounds Poor BL air movement - no clear wheezing NT, ND No CCE No deficits No rashes P: Pt placed on Tamiflu, 02, steroids, nebs SS for DM Cont all psych meds Cont Synthroid Cont Atorvastatin, Losartan _ (1) Asthma exacerbation Asthma persistence: persistent Asthma severity: moderate Qualified Code(s): J45.41 - Moderate persistent asthma with (acute) exacerbation (2) Depression Active/Remission status: Depression Type: other depression Major depression episode severity: Major depression recurrence: Psychotic features : Trimester: Qualified Code(s): F32.89 - Other specified depressive episodes
[2018-07-16] MEDS ORDERED: GLUCAGON FOR INJ 1 MG VIAL SQ PRN (16:56)
[2018-07-16] MEDS ORDERED: GLUCOSE 10 TABS/TUBE PO PRN (16:56)
[2018-07-16] MEDS ORDERED: CARBOHYDRATES FOR HYPOGLYCEMIA PO PRN (16:56)
[2018-07-16] MEDS ORDERED: GLUCOSE 40% GEL 15 GM TUBE PO PRN (16:56)
[2018-07-16] MEDS ORDERED: DEXTROSE 50% 50 ML SYRINGE IV PRN (16:56)
[2018-07-16] MEDS ORDERED: ACETAMINOPHEN 325 MG TAB PO PRN (16:56)
[2018-07-16] MEDS ORDERED: ONDANSETRON INJ 2 MG/ML 2 ML VIAL IV PRN (16:56)
[2018-07-16] MEDS ORDERED: PHARMACY GLYCEMIC MGMT CONSULT PRN (16:56)
[2018-07-16] MEDS ORDERED: INSULIN GLARGINE SOLOSTAR 100 UNITS/ML 3 ML PEN SC STA (17:33)
[2018-07-16 18:01] LABS: INR 1.1 (0.9-1.1); Partial Thromboplastin Ratio 1.2; Partial Thromboplastin Time 30.6 Seconds (21.0-31.0); Prothrombin Time 10.6 Seconds (9.0-12.0)
[2018-07-16] MEDS: ALBUT/IPRATROP 3MG/0.5MG NEB 3 ML VIAL NEB SCH ×3 (18:05→23:57)
[2018-07-16] MEDS: INSULIN ASPART 100 UNITS/ML 3 ML PEN SC SCH ×2 (18:34→21:01)
[2018-07-16] MEDS: methylPREDNISolone 40 MG in SYRINGE 0 ML IV SCH (20:55)
[2018-07-16] MEDS: DESMOPRESSIN ACETATE 0.1 MG TAB PO SCH (20:55)
[2018-07-16] MEDS: BENZONATATE 100 MG CAPSULE PO SCH (20:55)
[2018-07-16] MEDS: ATORVASTATIN 20 MG TAB PO SCH (20:56)
[2018-07-16] MEDS: cloZAPine 100 MG TAB PO SCH (20:56)
[2018-07-16] MEDS: guaiFENesin 600 MG TABCR PO SCH (20:57)
[2018-07-16] MEDS: TRAZODONE HCL 100 MG TAB PO SCH (20:57)
[2018-07-16] MEDS: OSELTAMIVIR PHOSPHATE 75 MG CAP PO SCH (20:58)
[2018-07-16] MEDS ORDERED: METFORMIN HCL 500 MG TAB PO SCH (21:00)
[2018-07-16] MEDS ORDERED: INSULIN GLARGINE SOLOSTAR 100 UNITS/ML 3 ML PEN SC ONE (22:00)
[2018-07-17] MEDS: INSULIN ASPART 100 UNITS/ML 3 ML PEN SC SCH ×6 (00:23→20:34)
[2018-07-17] MEDS: ALBUT/IPRATROP 3MG/0.5MG NEB 3 ML VIAL NEB SCH ×6 (03:26→22:07)
[2018-07-17] MEDS: LEVOTHYROXINE SODIUM 125 MCG TABLET PO SCH (05:36)
[2018-07-17 06:09] LABS: Hematocrit (blood only) 37.4 % (37-47); Hemoglobin 11.5 g/dL (12.0-16.0); Mean Corpuscular Hgb Conc 30.7 g/dL (32-36); Mean Corpuscular Volume 79.7 fL (80-100); Mean Platelet Volume 8.4 fL (7.4-10.4); Platelet Count 221 K/uL (130-400); RDW Coefficient of Variation 15.5 % (11.5-14.5); RDW Standard Deviation 45.3 fL (36.4-46.3); Red Blood Count 4.69 M/uL (4.2-5.4); White Blood Count 5.95 K/uL (4.8-10.8)
[2018-07-17 06:26] LABS: Estimated Average Glucose 143 mg/dl
[2018-07-17 06:46] LABS: Albumin Level 3.1 gm/dl (3.4-5.0); BUN Creatinine Ratio 19.7 (10-20); Calcium 8.4 mg/dl (8.5-10.1); Creatinine Clr Calc Pharmacy 135.6 ml/min; Est GFR (African American) 117.9; Est GFR (Non-African American) 101.7; Potassium 4.2 mmol/L (3.5-5.1)
[2018-07-17 06:49] LABS: Albumin Globulin Ratio 0.8 (0.9-2); Bilirubin,Total 0.4 mg/dl (0.2-1); Total Protein 7.1 gm/dl (6.4-8.2)
[2018-07-17] MEDS: ENOXAPARIN INJ 40 MG/0.4 ML SYR SQ SCH (08:58)
[2018-07-17] MEDS: lamoTRIgine 100 MG TAB PO SCH (08:59)
[2018-07-17] MEDS: ESCITALOPRAM OXALATE 20 MG TAB PO SCH (08:59)
[2018-07-17] MEDS: ESTRADIOL 1 MG TAB PO SCH (08:59)
[2018-07-17] MEDS ORDERED: INSULIN GLARGINE SOLOSTAR 100 UNITS/ML 3 ML PEN SC SCH (09:00)
[2018-07-17] MEDS: OSELTAMIVIR PHOSPHATE 75 MG CAP PO SCH ×2 (09:00→20:56)
[2018-07-17] MEDS: CHOLECALCIFEROL 1,000 UNITS TAB PO SCH (09:00)
[2018-07-17] MEDS: guaiFENesin 600 MG TABCR PO SCH ×2 (09:00→20:37)
[2018-07-17] MEDS: MONTELUKAST SODIUM 10 MG TABLET PO SCH (09:01)
[2018-07-17] MEDS: LOSARTAN POTASSIUM 50 MG TAB PO SCH (09:02)
[2018-07-17] MEDS: BENZONATATE 100 MG CAPSULE PO SCH ×3 (09:02→20:56)
[2018-07-17] MEDS: cloZAPine 25 MG TAB PO SCH ×2 (09:03→12:32)
[2018-07-17] MEDS: methylPREDNISolone 40 MG in SYRINGE 0 ML IV SCH ×2 (09:11→20:56)
[2018-07-17] MEDS: clonazePAM 0.5 MG TAB PO PRN ×2 (09:11→17:00)
--- NOTE | 2018-07-17 16:21 | Pharmacy Report ---
Pharmacy Glycemic Short Note 2 - Date of Service July 17, 2018 - Glycemic Short BSG Results (Last 24 hours): 07/16/18 07/16/18 07/17/18 17:03 20:35 00:09 Glucose POC Glucose 214 H 218 H 164 H 07/17/18 07/17/18 07/17/18 03:59 05:45 07:50 Glucose 203 H POC Glucose 188 H 175 H 07/17/18 11:04 Glucose POC Glucose 200 H OUTPATIENT ANTIDIABETIC REGIMEN: * metformin 1000 mg PO BID * A1c 6.6% 07/17/18 ASSESSMENT: * 47 yr old T2DM female admitted with hypoxemia, fever, and SOB due to influenza and asthma exacerbation * Patient is on high dose IV steroids; solu-medrol 40 mg IV q12h * Weight based SQ basal + bolus insulin has been initiated. Patient received 77 units of SQ insulin yesterday. * Will continue aggressive insulin dosing while on IV steroids. PLAN FOR INPATIENT GLYCEMIC CONTROL: * Hold outpatient oral diabetes medications * Basal insulin * Lantus 20 units SQ this morning, then per scale SQ BID: * 10 units for BSG < 140 * 20 units for BSG 140-180 * 25 units for BSG > 180 * Bolus insulin * NovoLog per scale ACHS or Q6hrs while NPO * Goal Range: Low 110 mg/dL - High 140 mg/dL * Correction Factor: 10 mg/dL/unit * Nutritional / Prandial insulin per carb ratio of 1 unit per 4 grams CHO consumed * Added overnight check at 00
--- NOTE | 2018-07-17 18:51 | Hospitalist Progress Note ---
Date of Service July 17, 2018 Assessment & Plan (1) Acute respiratory failure with hypoxia: Acute hypoxic respiratory failure in setting of influenza and asthma exacerbation. -Patient is requiring 4 L NC with O2 sats at 91% at bedside, typically does not require any oxygen at home -Continue supplemental O2 to keep pulse ox greater than 90% and wean as tolerated Treating as below for asthma and influenza (2) Influenza: -Influenza A + -Continue supportive care with supplemental O2, Mucinex, Tessalon Perles, Tylenol, steroids -Tamiflu 75 mg BID-day #2 -Do not need continuous pulse ox -CXR reviewed without signs of infiltrate suggestive of any infectious process. Improved overall (3) Asthma exacerbation: With continued wheezing, was a smoker until a few years ago and has a history of asthma -Continue Solu-Medrol 40 mg Q12h -Continue bronchodilators Continue supplemental O2 (4) Schizoaffective disorder, depressive type: Stable -Continue home meds (5) Depression: - Continue clozapine 25 mg at noon and 225 mg HS, Klonopin 0.25 mg p.o. twice daily as needed, Lexapro 20 mg daily, lamotrigine 200 mg QAM -Unclear why she is on desmopressin? Question if she has history of hyponatremia secondary to medications? (6) Hypertension: Controlled -Continue losartan 50 mg QAM (7) Dyslipidemia: - Cont statin therapy (8) Hypothyroidism: - Cont levothyroxine 125 mcg every morning (9) Type 2 diabetes mellitus: -Hold metformin from home -ISS with Accu-Cheks AC at bedtime -Last A1c = 6.1 in May 2018, no need to recheck. -Pharmacy consulted with steroid use and elevated glucose. (10) Morbid obesity with BMI of 45.0-49.9, adult: - Diet and exercise will need to be encouraged prior to discharge when respiratory status improves. - Continue diabetic/HH diet as above. (11) DVT prophylaxis: -Lovenox subcu Disposition-remain on medical/surgical floor, expect hospitalization for at least 1-2 more days Subjective Patient feeling better but still wheezing and coughing. Has been afebrile. Feels improved since admission. She is tolerating p.o. Denies nausea or abdominal pain, denies diarrhea. Remains on oxygen Review of Systems All systems reviewed & are unremarkable except as noted in HPI & below Physical Exam 2 Vital Signs (Past 24 Hours): Last Vital Signs Temp 36.7 C 07/17/18 15:07 Pulse 83 07/17/18 15:43 Resp 18 07/17/18 15:43 BP 147/79 H 07/17/18 15:07 Pulse Ox 92 07/17/18 15:43 Constitutional: WD/WN, vitals as above + morbidly obese Eyes: PERRL, conjunctivae normal, anicteric sclerae ENMT: external ear and nose normal, oropharynx normal Neck: trachea midline, no thyromegaly Respiratory: normal respiratory effort Auscultation: + wheezes (Diffuse expiratory wheezes); no crackles and no rhonchi Cardiovascular: RRR, no murmur, no edema Gastrointestinal (Abdomen): normal bowel sounds, soft, nontender, no hepatosplenomegaly Musculoskeletal: Extremities: extremities normal to inspection; no cyanosis and no clubbing Skin: no rashes, warm and dry Neurologic: moves all extremities and awake; no focal motor deficits Psychiatric: A+Ox3, euthymic affect Results & Data Laboratory Results 07/18/18 07/17/18 07/17/18 Range/Units 00:23 20:19 16:55 POC Glucose 162 H 197 H 215 H (70-99) 07/17/18 07/17/18 Range/Units 11:04 07:50 POC Glucose 200 H 175 H (70-99) _ (1) Asthma exacerbation Asthma persistence: persistent Asthma severity: moderate Qualified Code(s): J45.41 - Moderate persistent asthma with (acute) exacerbation (2) Depression Active/Remission status: Depression Type: other depression Major depression episode severity: Major depression recurrence: Psychotic features : Trimester: Qualified Code(s): F32.89 - Other specified depressive episodes
[2018-07-17] MEDS: INSULIN GLARGINE SOLOSTAR 100 UNITS/ML 3 ML PEN SC SCH (20:34)
[2018-07-17] MEDS: DESMOPRESSIN ACETATE 0.1 MG TAB PO SCH (20:37)
[2018-07-17] MEDS: TRAZODONE HCL 100 MG TAB PO SCH (20:37)
[2018-07-17] MEDS: cloZAPine 100 MG TAB PO SCH (20:37)
[2018-07-17] MEDS: ATORVASTATIN 20 MG TAB PO SCH (20:37)
[2018-07-18] MEDS ORDERED: INSULIN ASPART 100 UNITS/ML 3 ML PEN SC SCH
[2018-07-18] MEDS: ALBUT/IPRATROP 3MG/0.5MG NEB 3 ML VIAL NEB SCH ×6 (04:38→23:07)
[2018-07-18] MEDS: LEVOTHYROXINE SODIUM 125 MCG TABLET PO SCH (06:23)
[2018-07-18] MEDS: ESCITALOPRAM OXALATE 20 MG TAB PO SCH (07:47)
[2018-07-18] MEDS: LOSARTAN POTASSIUM 50 MG TAB PO SCH (07:49)
[2018-07-18] MEDS: guaiFENesin 600 MG TABCR PO SCH ×2 (07:49→20:22)
[2018-07-18] MEDS: CHOLECALCIFEROL 1,000 UNITS TAB PO SCH (07:49)
[2018-07-18] MEDS: cloZAPine 25 MG TAB PO SCH ×2 (07:50→13:19)
[2018-07-18] MEDS: lamoTRIgine 100 MG TAB PO SCH (07:50)
[2018-07-18] MEDS: MONTELUKAST SODIUM 10 MG TABLET PO SCH (07:51)
[2018-07-18] MEDS: OSELTAMIVIR PHOSPHATE 75 MG CAP PO SCH ×2 (07:51→20:20)
[2018-07-18] MEDS: BENZONATATE 100 MG CAPSULE PO SCH ×3 (07:52→20:20)
[2018-07-18] MEDS: ESTRADIOL 1 MG TAB PO SCH (07:53)
[2018-07-18] MEDS: ENOXAPARIN INJ 40 MG/0.4 ML SYR SQ SCH (07:55)
[2018-07-18] MEDS: methylPREDNISolone 40 MG in SYRINGE 0 ML IV SCH ×2 (07:56→20:20)
[2018-07-18] MEDS: INSULIN ASPART 100 UNITS/ML 3 ML PEN SC SCH ×4 (09:27→20:18)
[2018-07-18] MEDS: INSULIN GLARGINE SOLOSTAR 100 UNITS/ML 3 ML PEN SC SCH ×2 (09:28→20:19)
--- NOTE | 2018-07-18 10:18 | Pharmacy Report ---
Pharmacy Glycemic Short Note 2 - Date of Service July 18, 2018 - Glycemic Short BSG Results (Last 24 hours): 07/17/18 07/17/18 07/17/18 11:04 16:55 20:19 POC Glucose 200 H 215 H 197 H 07/18/18 07/18/18 00:23 07:54 POC Glucose 162 H 184 H OUTPATIENT ANTIDIABETIC REGIMEN: * metformin 1000 mg PO BID * A1c 6.6% 07/17/18 ASSESSMENT: 07/18 * Patient continues on solu-medrol 40 mg IV q12H * Patient received 120 units of insulin yesterday * Fasting 184, slightly max dose on scale * Post-prandial BSGs elevated yesterday-slightly tighten carb ratio 07/17 * 47 yr old T2DM female admitted with hypoxemia, fever, and SOB due to influenza and asthma exacerbation * Patient is on high dose IV steroids; solu-medrol 40 mg IV q12h * Weight based SQ basal + bolus insulin has been initiated. Patient received 77 units of SQ insulin yesterday. * Will continue aggressive insulin dosing while on IV steroids. PLAN FOR INPATIENT GLYCEMIC CONTROL: * Hold outpatient oral diabetes medications * Basal insulin * Lantus 20 units SQ this morning, then per scale SQ BID: * 10 units for BSG < 110 * 20 units for BSG 110-140 * 25 units for BSG 141-180 * 30 units for BSG >180 * Bolus insulin * NovoLog per scale ACHS or Q6hrs while NPO * Goal Range: Low 110 mg/dL - High 140 mg/dL * Correction Factor: 10 mg/dL/unit * Nutritional / Prandial insulin per carb ratio of 1 unit per 3.5 grams CHO consumed * Added overnight check at 00
[2018-07-18] MEDS: clonazePAM 0.5 MG TAB PO PRN (13:24)
--- NOTE | 2018-07-18 16:24 | Hospitalist Progress Note ---
Date of Service July 18, 2018 Assessment & Plan (1) Acute respiratory failure with hypoxia: Acute hypoxic respiratory failure in setting of influenza and asthma exacerbation. -Patient was requiring 4 L NC with O2 sats at 91% at bedside, typically does not require any oxygen at home -is now off O2 at rest -Continue supplemental O2 to keep pulse ox greater than 90% and wean as tolerated -check POx with ambulation Treating as below for asthma and influenza (2) Influenza: -Influenza A + -Continue supportive care with supplemental O2, Mucinex, Tessalon Perles, Tylenol, steroids -Tamiflu 75 mg BID-day #3 -CXR reviewed without signs of infiltrate suggestive of any infectious process. Improved overall (3) Asthma exacerbation: With continued wheezing, HOUSE, was a smoker until a few years ago and has a history of asthma -Continue Solu-Medrol 40 mg Q12h -Continue bronchodilators Continue supplemental O2 to keep POx>90% (4) Schizoaffective disorder, depressive type: Stable -Continue home meds (5) Depression: - Continue clozapine 25 mg at noon and 225 mg HS, Klonopin 0.25 mg p.o. twice daily as needed, Lexapro 20 mg daily, lamotrigine 200 mg QAM -continue on desmopressin for enuresis associated with taking clozaril (makes her so tired she was wetting the bed) (6) Hypertension: Fairly well Controlled -Continue losartan 50 mg QAM (7) Dyslipidemia: - Cont statin therapy (8) Hypothyroidism: - Cont levothyroxine 125 mcg every morning (9) Type 2 diabetes mellitus: -Hold metformin from home With hyperglycemia here -ISS with Accu-Cheks AC at bedtime -Last A1c = 6.1 in May 2018, no need to recheck. -Pharmacy consulted with steroid use and elevated glucose. (10) Morbid obesity with BMI of 45.0-49.9, adult: - Diet and exercise will need to be encouraged prior to discharge when respiratory status improves. - Continue diabetic/HH diet as above. (11) Microcytic anemia: Hgb 11-12, MCV 79. Check Fe studies, Hemoccult stool -follow CBC Will see if has had GI wrkup previously (12) DVT prophylaxis: -Lovenox subcu Disposition-remain on medical/surgical floor,improved but will dyspneic and wheezing quite a bit, possible dc to home tomorrow Will need a note for work: she works at [employer] on the [employer] Subjective Pt has c/o HOUSE but is weaned off O2 at rest. Denies CP, is having a mild cough but overall feels better. Is joe po, no N/V. She is having right eye drainage and irritation today. Review of Systems All systems reviewed & are unremarkable except as noted in HPI & below Physical Exam 2 Vital Signs (Past 24 Hours): Last Vital Signs Temp 36.6 C 07/18/18 15:06 Pulse 84 07/18/18 15:41 Resp 18 07/18/18 15:41 BP 150/84 H 07/18/18 15:06 Pulse Ox 93 07/18/18 15:41 Constitutional: WD/WN, vitals as above + morbidly obese Eyes: + conjunctival abnormality (OD with mild conjunctival erythema and watery discharge) ENMT: external ear and nose normal, oropharynx normal Neck: trachea midline, no thyromegaly Respiratory: normal respiratory effort Auscultation: + wheezes (Diffuse expiratory wheezes); no crackles and no rhonchi Cardiovascular: RRR, no murmur, no edema Gastrointestinal (Abdomen): normal bowel sounds, soft, nontender, no hepatosplenomegaly Musculoskeletal: Extremities: extremities normal to inspection; no cyanosis and no clubbing Skin: no rashes, warm and dry Neurologic: moves all extremities and awake; no focal motor deficits Psychiatric: A+Ox3, euthymic affect Results & Data Laboratory Results 07/18/18 07/18/18 07/18/18 Range/Units 11:43 07:54 00:23 POC Glucose 197 H 184 H 162 H (70-99) 07/17/18 07/17/18 Range/Units 20:19 16:55 POC Glucose 197 H 215 H (70-99) _ (1) Asthma exacerbation Asthma persistence: persistent Asthma severity: moderate Qualified Code(s): J45.41 - Moderate persistent asthma with (acute) exacerbation (2) Depression Active/Remission status: Depression Type: other depression Major depression episode severity: Major depression recurrence: Psychotic features : Trimester: Qualified Code(s): F32.89 - Other specified depressive episodes
[2018-07-18] MEDS: TRIMETHOPRIM/POLYMYXIN B OPR SCH ×2 (17:59→20:21)
[2018-07-18] MEDS: DESMOPRESSIN ACETATE 0.1 MG TAB PO SCH (20:20)
[2018-07-18] MEDS: ATORVASTATIN 20 MG TAB PO SCH (20:21)
[2018-07-18] MEDS: cloZAPine 100 MG TAB PO SCH (20:21)
[2018-07-18] MEDS: TRAZODONE HCL 100 MG TAB PO SCH (20:22)
[2018-07-19] MEDS: ALBUT/IPRATROP 3MG/0.5MG NEB 3 ML VIAL NEB SCH ×3 (04:06→11:07)
[2018-07-19] MEDS: LEVOTHYROXINE SODIUM 125 MCG TABLET PO SCH (05:45)
[2018-07-19 06:21] LABS: Basophils # (auto) 0.01 K/uL (0-0.2); Basophils % (auto) 0.1 %; Hematocrit (blood only) 37.9 % (37-47); Hemoglobin 11.8 g/dL (12.0-16.0); Immature Granulocytes # (auto) 0.03 K/uL (0.00-0.02); Immature Granulocytes % (auto) 0.3 %; Lymphocytes # (auto) 1.67 K/uL (1.2-3.4); Lymphocytes % (auto) 16.3 %; Mean Corpuscular Hgb Conc 31.1 g/dL (32-36); Mean Corpuscular Volume 79.3 fL (80-100); Mean Platelet Volume 8.6 fL (7.4-10.4); Monocytes # (auto) 0.65 K/uL (0.11-0.59); Monocytes % (auto) 6.3 %; Neutrophils # (auto) 7.89 K/uL (1.4-6.5); Platelet Count 254 K/uL (130-400); RDW Coefficient of Variation 15.6 % (11.5-14.5); RDW Standard Deviation 45.3 fL (36.4-46.3); Red Blood Count 4.78 M/uL (4.2-5.4); White Blood Count 10.25 K/uL (4.8-10.8)
[2018-07-19 06:49] LABS: BUN Creatinine Ratio 26.7 (10-20); Calcium 8.8 mg/dl (8.5-10.1); Creatinine Clr Calc Pharmacy 118.7 ml/min; Est GFR (African American) 100.3; Est GFR (Non-African American) 86.6; Potassium 4.3 mmol/L (3.5-5.1)
[2018-07-19 06:53] LABS: Ferritin 46.8 ng/ml (8-388)
[2018-07-19] MEDS: OSELTAMIVIR PHOSPHATE 75 MG CAP PO SCH (07:52)
[2018-07-19] MEDS: CHOLECALCIFEROL 1,000 UNITS TAB PO SCH (07:53)
[2018-07-19] MEDS: ESCITALOPRAM OXALATE 20 MG TAB PO SCH (07:53)
[2018-07-19] MEDS: LOSARTAN POTASSIUM 50 MG TAB PO SCH (07:53)
[2018-07-19] MEDS: lamoTRIgine 100 MG TAB PO SCH (07:54)
[2018-07-19] MEDS: ESTRADIOL 1 MG TAB PO SCH (07:54)
[2018-07-19] MEDS: MONTELUKAST SODIUM 10 MG TABLET PO SCH (07:54)
[2018-07-19] MEDS: guaiFENesin 600 MG TABCR PO SCH (07:55)
[2018-07-19] MEDS: ENOXAPARIN INJ 40 MG/0.4 ML SYR SQ SCH (07:55)
[2018-07-19] MEDS: cloZAPine 25 MG TAB PO SCH ×2 (07:56→12:56)
[2018-07-19] MEDS: TRIMETHOPRIM/POLYMYXIN B OPR SCH ×2 (07:57→12:56)
[2018-07-19] MEDS: clonazePAM 0.5 MG TAB PO PRN ×2 (07:59→12:58)
[2018-07-19] MEDS: methylPREDNISolone 40 MG in SYRINGE 0 ML IV SCH (09:29)
[2018-07-19] MEDS: INSULIN ASPART 100 UNITS/ML 3 ML PEN SC SCH ×2 (09:30→12:55)
[2018-07-19] MEDS: INSULIN GLARGINE SOLOSTAR 100 UNITS/ML 3 ML PEN SC SCH (09:30)
[2018-07-19] MEDS: BENZONATATE 100 MG CAPSULE PO SCH ×2 (09:32→12:57)
[2018-07-19] MEDS ORDERED: predniSONE 20 MG TAB PO SCH (10:00)
--- NOTE | 2018-07-19 13:26 | Discharge Summary ---
Date of Service July 19, 2018 Admission HPI Per Admitting Provider This is a 47 yo F with PMH of DM type II, HTN, HLD, hypothyroidism, obesity with BMI of 47, schizoaffective disorder, depression, history of suicidal ideation, intellectual disability who presents with worsening cough, sweats and chills, difficulty breathing and generalized malaise for the last 4 days. Patient notes that her breathing was significantly worse this morning. She was unable to complete ADLs. Her appetite has been poor with little fluid intake. She is currently requiring supplemental oxygen at 4 L to maintain an O2 sat of 91%. Patient has already completed a 1 hour long nebulizer treatment. Patient was found to be influenza A +. Patient is also slightly tachycardic with a pulse in the low 100s. Her respirations are increased at 25. Principal Diagnosis Influenza A, Asthma exacerbation, Acute hypoxic respiratory failure Discharge Exam Constitutional WD/WN, vitals as above + morbidly obese Eyes PERRL, conjunctivae normal, anicteric sclerae + conjunctival abnormality (OD with mild conjunctival erythema and watery disch arge improved ) ENMT external ear and nose normal, oropharynx normal Neck trachea midline, no thyromegaly Respiratory normal respiratory effort Auscultation: + wheezes (scattered expiratory wheezes improved and moving air well); no crackles and no rhonchi Cardiovascular RRR, no murmur, no edema Gastrointestinal (Abdomen) normal bowel sounds, soft, nontender, no hepatosplenomegaly Musculoskeletal Extremities: extremities normal to inspection; no cyanosis and no clubbing Skin no rashes, warm and dry Neurologic moves all extremities and awake; no focal motor deficits Psychiatric A+Ox3, euthymic affect Discharge Data Allergies Allergy/AdvReac Type Severity Reaction Status Date / Time chlorpromazine Allergy Mild LIGHTHEADED Verified 07/16/18 14:54 SHUFFLING GAIT aspirin Allergy Unknown Unknown Verified 07/16/18 14:54 doxycycline Allergy Unknown HEARING Unverified 07/16/18 14:54 VOICES levofloxacin Allergy Unknown ?ALLERGIC Verified 07/16/18 14:54 TO LEVAQUIN? NSAIDS (Non-Steroidal Allergy Unknown . Verified 07/16/18 14:54 Anti-Inflamma onion Allergy Unknown VOMITING Unverified 07/16/18 14:54 Penicillins Allergy Unknown RASH Verified 07/16/18 14:54 prednisone Allergy Unknown . Verified 07/16/18 14:54 quinine Allergy Unknown Unknown Verified 07/16/18 14:54 Consultations None Procedures Performed None Ordered Studies CXR Hospital Course (1) Acute respiratory failure with hypoxia: Acute hypoxic respiratory failure in setting of influenza and asthma exacerbation. -Patient was requiring 4 L NC with O2 sats at 91% at bedside, typically does not require any oxygen at home -is now off O2 at rest and with ambulation--> lowest POx with RN was 91-92% with walking Treating as below for asthma and influenza (2) Influenza: -Influenza A + -Continue supportive care with Mucinex, Tessalon Perles, Tylenol, steroids -Tamiflu 75 mg BID-day #4-finish out course at home -CXR reviewed without signs of infiltrate suggestive of any infectious process. Improved overall (3) Asthma exacerbation: With wheezing, HOUSE, was a smoker until a few years ago and has a history of asthma -received Solu-Medrol 40 mg Q12h and convert to po prednisone for taper after discharge -Continue bronchodilators received O2 as above and now weaned off (4) Schizoaffective disorder, depressive type: Stable -Continue home meds (5) Depression: - Continue clozapine 25 mg at noon and 225 mg HS, Klonopin 0.25 mg p.o. twice daily as needed, Lexapro 20 mg daily, lamotrigine 200 mg QAM -continue on desmopressin for enuresis associated with taking clozaril (makes her so tired she was wetting the bed) (6) Hypertension: Fairly well Controlled -Continue losartan 50 mg QAM (7) Dyslipidemia: - Cont statin therapy (8) Hypothyroidism: - Cont levothyroxine 125 mcg every morning (9) Type 2 diabetes mellitus: -Held metformin from home With hyperglycemia here from steroids -ISS with Accu-Cheks AC at bedtime -Last A1c = 6.1 in May 2018, no need to recheck. Can restart metformin on discharge (10) Morbid obesity with BMI of 45.0-49.9, adult: - Diet and exercise will need to be encouraged prior to discharge when respiratory status improves. - Continue diabetic/HH diet as above. (11) Microcytic anemia: Hgb 11-12, MCV 79. Fe studies here indicate anemia of chronic disease but possibly borderline low Fe storage with ferritin 43, did not get a sample to Hemoccult stool here -follow CBC as outpatient May need GI workup as outpt-defer to PCP (12) DVT prophylaxis: -Lovenox subcu was provided Disposition-stable for dc to home Total Time Total Time Spent Total Time Spent (In Minutes): >30 min Total Time Includes: Examination of the Patient, Discharge Planning and Medication Reconciliation Discharge Plan Discharge Items Patient Disposition: Home - Home Health Services Reason For Visit: INFLUENZA A Discharge Diagnosis: Influenza A, asthma exacerbation Condition: Good Discharge Goals: Decrease discomfort, Diagnostic testing, Improve disease control, Learn about illness and Therapeutic intervention Activity: Resume your previous activity Lifting: Gradually increase as tolerated Bathing: No limitations Exercise/Sports: Gradually increase as tolerated Non-emergency contact: Primary Care Provider and Psychiatrist Call non-emergency contact if: you have any medication questions, your symptoms worsen, your pain is not controlled, your pain is worsening, your pain is unusual for you, your pain is concerning for you, you have a fever and your temperature is above 101 Diet: Carb Consistent or DM2 and Heart Healthy Addtl Provider Instructions: You were admitted with influenza and an exacerbation of your asthma. You had improvement with treatment with steroids and antibiotics for the flow, as well as breathing treatments. Please finish out the course of prednisone and Tamiflu as prescribed. Please continue all your other medications as before. Use the albuterol inhaler 2 puffs every 4 hours. Please follow-up with your primary care physician within 1 week Please contact your doctor if you begin to have hallucinations due to the prednisone. Prescriptions: New prednisone 10 mg tablet 60 mg PO DAILY Qty: 27 RF: 0 benzonatate [Tessalon Perles] 100 mg Capsule 100 mg PO TID PRN (Reason: cough) Qty: 30 RF: 0 albuterol sulfate 90 mcg/actuation HFA aerosol inhaler 2 inha INH Q4H Qty: 18 RF: 0 Continued clozapine 100 mg tablet 2 tab PO HS RF: 0 clozapine 25 mg tablet 25 mg PO BID RF: 0 cholecalciferol (vitamin D3) 1,000 unit capsule 1 tab PO DAILY RF: 0 clonazepam [Klonopin] 0.5 mg tablet 0.25 mg PO BID PRN (Reason: anx) RF: 0 trazodone 100 mg PO ONCE HS RF: 0 losartan [Cozaar] 50 mg tablet 50 mg PO QAM RF: 0 metformin [Glucophage] 500 mg tablet 1,000 mg PO BID RF: 0 atorvastatin [Lipitor] 20 mg tablet 20 mg PO HS RF: 0 lamotrigine [Lamictal] 200 mg tablet 200 mg PO QAM RF: 0 desmopressin 0.2 mg Tablet 0.2 mg PO HS RF: 0 estradiol [Estrace] 1 mg tablet 1 mg PO QAM RF: 0 levothyroxine [Synthroid] 125 mcg tablet 125 mcg PO QAM RF: 0 montelukast [Singulair] 10 mg tablet 10 mg PO DAILY RF: 0 ergocalciferol (vitamin D2) [Vitamin D2] 50,000 unit Capsule 50,000 unit PO MONTHLY RF: 0 escitalopram oxalate [Lexapro] 20 mg tablet 20 mg PO DAILY RF: 0 Stand-Alone Forms: [facility], Work/School Release (Inpt) Discharge Orders: Discharge Order (Routine); Ordered 07/19/18 Ordered By: Yary Juan Admission Data Admit Date/Time: 07/16/18 15:34 Attending Provider: Yary Juan Admit Provider: Jai Watt Primary Care Provider: Niles Tam Service: Medical Other Interventions: Discharge Summary Assessment (RN) Last Done: 07/19/18 13:44 Pending Studies at Discharge: No DC Date/Time DO NOT enter until pt leaves facility: 07/19/18 14:18
[2018-07-31] MEDS ORDERED: ERGOCALCIFEROL 50,000 UNITS CAP PO SCH (09:00)
== END 2018-07-19 14:18 | disposition home health service (06) | DRG 193 ==
LOC: ED 11:35 → 4W 15:34 → SUATTDRO 15:34 → 4W 16:39
DX: F25.1 Schizoaffective disorder, depressive type; J10.1 Influenza due to other identified influenza virus with other respiratory manifestations; J45.901 Unspecified asthma with (acute) exacerbation; D50.9 Iron deficiency anemia, unspecified; Z79.899 Other long term (current) drug therapy; F79 Unspecified intellectual disabilities; R00.0 Tachycardia, unspecified; I10 Essential (primary) hypertension; J96.01 Acute respiratory failure with hypoxia; E78.5 Hyperlipidemia, unspecified; Z68.42 Body mass index [BMI] 45.0-49.9, adult; E11.9 Type 2 diabetes mellitus without complications; Z79.84 Long term (current) use of oral hypoglycemic drugs; E66.01 Morbid (severe) obesity due to excess calories; E03.9 Hypothyroidism, unspecified; Z66 Do not resuscitate

== ENCOUNTER 2018-09-27 16:57 | Inpatient (IN) ==
[2018-09-27 18:10] LABS: Appearance Urine Cloudy (Clear); Bacteria Urine Automated 2+ (Negative); Bilirubin Urine Negative (Negative); Blood Urine Trace (Negative); Color Urine Yellow; Glucose Urine UA Negative (Negative); Ketones Urine Negative (Negative); Leukocyte Esterase Urine 2+ (Negative); Nitrite Urine Negative (Negative); Protein Urine Negative (Negative); RBC Urine Automated 0-4 /hpf (0-4); Specific Gravity Urine 1.011 (1.000-1.030); Urobilinogen Urine Negative (Negative); WBC Urine Automated >30 /hpf (0-5)
[2018-09-27 18:10] LABS: Hematocrit (blood only) 35.6 % (37-47); Hemoglobin 11.5 g/dL (12.0-16.0); Immature Granulocytes # (auto) 0.01 K/uL (0.00-0.02); Immature Granulocytes % (auto) 0.1 %; Lymphocytes # (auto) 1.95 K/uL (1.2-3.4); Mean Corpuscular Hgb Conc 32.3 g/dL (32-36); Mean Corpuscular Volume 77.9 fL (80-100); Mean Platelet Volume 8.5 fL (7.4-10.4); Monocytes # (auto) 0.42 K/uL (0.11-0.59); Monocytes % (auto) 5.8 %; Neutrophils # (auto) 4.83 K/uL (1.4-6.5); Neutrophils % (auto) 67.1 %; Platelet Count 179 K/uL (130-400); RDW Coefficient of Variation 15.7 % (11.5-14.5); RDW Standard Deviation 44.6 fL (36.4-46.3); Red Blood Count 4.57 M/uL (4.2-5.4); White Blood Count 7.21 K/uL (4.8-10.8)
[2018-09-27 18:26] LABS: Amphetamines+Metham, Urine Neg (Neg); Barbiturates, Urine Neg (Neg); Benzodiazepine, Urine Neg (Neg); Cocaine, Urine Neg (Neg); MDMA (Ecstacy), Urine Neg (Neg); Methadone, Urine Neg (Neg); Opiate, Urine Neg (Neg); Phencyclidine, Urine Neg (Neg)
[2018-09-27 18:30] LABS: Alanine Aminotransferase 18 U/L (12-78); Albumin Level 3.3 gm/dl (3.4-5.0); Aspartate Aminotransferase 12 U/L (15-37); BUN Creatinine Ratio 11.5 (10-20); Blood Urea Nitrogen 7 mg/dl (7-18); Calcium 9.1 mg/dl (8.5-10.1); Carbon Dioxide 26 mmol/L (21-32); Chloride 105 mmol/L (98-107); Est GFR (African American) 123.4; Est GFR (Non-African American) 106.5; Glucose 113 mg/dl (70-99); Potassium 4.1 mmol/L (3.5-5.1); Sodium 140 mmol/L (136-145)
[2018-09-27 18:40] LABS: Albumin Globulin Ratio 0.9 (0.9-2); Alkaline Phosphatase 115 U/L (45-117); Bilirubin,Total 0.3 mg/dl (0.2-1); Globulin 3.7 gm/dl (2.5-4.0)
[2018-09-27] MEDS ORDERED: cephALEXin 250 MG CAP PO ONE (19:01)
--- NOTE | 2018-09-27 19:02 | Emergency Department Note ---
Entered by Barney Acosta acting as a scribe for Brandon Kaye MD History of Present Illness General Chief complaint: Mental Health Evaluation Stated complaint: DEPRESSED,SLEEPING ALOT,ANXIETY Time Seen by Provider: 09/27/18 17:10 Source: patient Limitations: no limitations History of Present Illness Provider complaint: Worsening depression/Crying spells Onset (ago): day(s) (1.5-2) Location: head (Psych/Mental health) Pain Consistency: + other (worsening) Quality: + other (Worsening crying spells and depression) Associated symptoms: + other (Confirms auditory hallucinations) The patient is a 47 year old white female with a past medical history of Microcytic anemia, diabetes, HTN, HLD, respiratory failure, Asthma, Suicidal ideation, schizoaffective disorder, and depression who presents to the Emergency Room with complaints of worsening depression and crying spells that began 1.5-2 weeks ago. The patient states that she has been crying more over the past 1.5-2 weeks and feels "all alone inside." She notes that her father recently on September 01, and this has been very hard for her. The patient confirms th at she does hear auditory hallucinations of her grandfather's voice telling her to hurt herself. This has been going on for a while per the patient. She denies any suicidal or homicidal ideation, and does not want to hurt herself currently. The patient is currently requesting to go to [address] [place] [address] for an inpatient psychiatric stay. She denies any bowel/bladder abnormality. She has been eating/drinking normally. Home Medications Home Medications Medication Instructions Recorded Confirmed Type atorvastatin [Lipitor] 20 mg PO HS 02/25/18 09/27/18 History desmopressin 0.2 mg PO HS 02/25/18 09/27/18 History ergocalciferol (vitamin D2) 50,000 unit PO MONTHLY 02/25/18 09/27/18 History [Vitamin D2] escitalopram oxalate [Lexapro] 20 mg PO DAILY 02/25/18 09/27/18 History estradiol [Estrace] 1 mg PO QAM 02/25/18 09/27/18 History lamotrigine [Lamictal] 200 mg PO QAM 02/25/18 09/27/18 History levothyroxine [Synthroid] 125 mcg PO QAM 02/25/18 09/27/18 History losartan [Cozaar] 50 mg PO QAM 02/25/18 09/27/18 History metformin [Glucophage] 1,000 mg PO BID 02/25/18 09/27/18 History montelukast [Singulair] 10 mg PO DAILY 02/25/18 09/27/18 History cholecalciferol (vitamin D3) 1 tab PO DAILY 07/16/18 09/27/18 History clonazepam [Klonopin] 0.5 mg PO BID PRN 07/16/18 09/28/18 History clozapine 2 tab PO HS 07/16/18 09/27/18 History clozapine 25 mg PO BID 07/16/18 09/27/18 History trazodone 100 mg PO HS 07/16/18 09/27/18 History Allergies Allergy/AdvReac Type Severity Reaction Status Date / Time chlorpromazine Allergy Mild LIGHTHEADED Verified 07/16/18 14:54 SHUFFLING GAIT aspirin Allergy Unknown Unknown Verified 07/16/18 14:54 doxycycline Allergy Unknown HEARING Unverified 07/16/18 14:54 VOICES levofloxacin Allergy Unknown ?ALLERGIC Verified 07/16/18 14:54 TO LEVAQUIN? NSAIDS (Non-Steroidal Allergy Unknown . Verified 07/16/18 14:54 Anti-Inflamma onion Allergy Unknown VOMITING Unverified 07/16/18 14:54 Penicillins Allergy Unknown RASH Verified 07/16/18 14:54 prednisone Allergy Unknown . Verified 07/16/18 14:54 quinine Allergy Unknown Unknown Verified 07/16/18 14:54 Past Med/Surg History Medical History Morbid obesity with BMI of 45.0-49.9, adult Influenza (Acute) Hypoxemia (Acute) Asthma exacerbation (Acute) SOB (shortness of breath) (Acute) Schizoaffective disorder, depressive type (Chronic 01/11/11) Asthma (Chronic) Class II obesity (Chronic) Depression (Chronic) Dyslipidemia (Chronic) Hypertension (Chronic) Hypothyroidism (Chronic) Type 2 diabetes mellitus (Chronic) IBS (irritable bowel syndrome) Family History Other No pertinent family history Social History Preferred Language: Upper Sorbian Communication Ability: Effective Visual Impairment: No Limitations Hearing Ability: Normal Beliefs That Will Affect Care: None marital status: Single Current Living Situation: Alone Feels Safe at Home: Yes Smoking Status: Never smoker Tobacco Type: cigarettes Second Hand Exposure: No Hx Alcohol Use: No Hx Substance Use: No Review of Systems See HPI for pertinent positives & negatives. and A total of 10 systems reviewed and were otherwise negative Physical Exam Vital Signs Vital Signs - 24 hr 09/27/18 17:06 09/27/18 19:20 09/27/18 20:47 Temperature 36.9 C 36.4 C L Temperature Source Oral Oral Sepsis Recent Fever Within 48 Hours No Sepsis New/Unexplained Change in Mental Status No Sepsis Action Taken by Nursing No Action Required Pulse Rate 123 H Pulse Rate [Finger] 96 H 106 H Pulse Rate [Left Brachial] Pulse Rhythm Regular Pulse Rhythm [Finger] Regular Pulse Rhythm [Left Brachial] Pulse Strength Normal Pulse Strength [Finger] Normal Pulse Strength [Left Brachial] Respiratory Rate 20 18 20 Respiratory Effort / Characteristics Non-Labored Spontaneous Non-Labored Respiratory Depth Normal Normal Respiratory Pattern Regular Regular Blood Pressure 161/76 H Blood Pressure [Left Arm] 152/99 H Blood Pressure Mean 104 Blood Pressure Mean [Left Arm] 116 Blood Pressure Position Sitting Blood Pressure Position [Left Arm] Pulse Oximetry 93 95 95 Oxygen Delivery Method Room Air Room Air Room Air 09/27/18 20:57 09/28/18 06:42 09/28/18 06:43 Temperature 36.5 C Temperature Source Oral Sepsis Recent Fever Within 48 Hours Sepsis New/Unexplained Change in Mental Status Sepsis Action Taken by Nursing Pulse Rate Pulse Rate [Finger] Pulse Rate [Left Brachial] 88 97 H Pulse Rhythm Pulse Rhythm [Finger] Pulse Rhythm [Left Brachial] Regular Regular Pulse Strength Pulse Strength [Finger] Pulse Strength [Left Brachial] Normal Normal Respiratory Rate 18 Respiratory Effort / Characteristics Non-Labored Non-Labored Respiratory Depth Normal Normal Respiratory Pattern Regular Regular Blood Pressure Blood Pressure [Left Arm] 144/83 H 124/84 Blood Pressure Mean Blood Pressure Mean [Left Arm] 103 97 Blood Pressure Position Blood Pressure Position [Left Arm] Lying Sitting Pulse Oximetry Oxygen Delivery Method GENERAL: Well appearing, well nourished, NAD, non-toxic. Tearful. EYE EXAM: Normal conjunctiva. PERRL, no anisocoria and EOM's grossly intact w/o pain. OROPHARYNX: Mucous membranes are moist. Normal dentition. NECK: Supple, no nuchal rigidity, no adenopathy, non-tender. no signs of meningismus. LUNGS: Clear to auscultation. Normal chest wall mechanics. HEART: NSR, no MRG. ABDOMEN: Abdomen soft, non-tender, normo-active bowel sounds, no masses, no rebound or guarding. BACK: No CVA TTP. SKIN: No rashes and no bruising. UPPER EXTREMITIES: Upper extremities are grossly normal. LOWER EXTREMITIES: No pitting edema. No calf pain. NEURO EXAM: Awake, alert, and oriented x3. Cranial nerves II-XII grossly intact. Moves all 4 extremities on command w/o issue. PSYCH: Depressed mood, feelings of hopelessness and loneliness. No SI/HI. There is occasional auditory hallucinations. Negative visual hallucinations. Course 1723: The patient was evaluated in room A5, and a complete history and physical examination were performed. 1841: The psych It Security Analyst has evaluated the patient. She is now suicidal with a plan. Administered Medications Atorvastatin Calcium (Lipitor) 20 mg PO HS [facility] Stop: 10/27/18 20:59 Last Admin: 09/27/18 21:50 Dose: 20 mg Documented by: [id number] Clonazepam (Klonopin) 0.5 mg PO BID@0900,1200 PRN PRN Reason: Anxiety Stop: 10/28/18 09:03 Last Admin: 09/28/18 12:09 Dose: 0.5 mg Documented by: [id number] Clozapine (Clozapine) 200 mg PO HS [facility] Stop: 10/27/18 20:59 Last Admin: 09/27/18 21:50 Dose: 200 mg Documented by: [id number] Clozapine (Clozaril) 25 mg PO BID@1200,2200 JOSE Stop: 10/28/18 11:59 Last Admin: 09/28/18 10:56 Dose: Not Given Documented by: [id number] Desmopressin Acetate (Ddavp) 0.2 mg PO HS [facility] Stop: 10/27/18 20:59 Last Admin: 09/27/18 21:50 Dose: 0.2 mg Documented by: [id number] Escitalopram Oxalate (Lexapro) 20 mg PO DAILY JOSE Stop: 10/28/18 08:59 Last Admin: 09/28/18 07:54 Dose: 20 mg Documented by: [id number] [facility]) [facility] [place] [place]: 10/28/18 08:59 Last Admin: 09/28/18 07:54 Dose: 1 mg Documented by: [id number] Lamotrigine (Lamictal) 200 mg PO QAM [facility] Stop: 10/28/18 08:59 Last Admin: 09/28/18 07:54 Dose: 200 mg Documented by: [id number] [facility] Stop: 10/28/18 07:59 Last Admin: 09/28/18 07:53 Dose: 125 mcg Documented by: [id number] Losartan Potassium (Cozaar) [facility] [place] Stop: 10/28/18 08:59 Last Admin: 09/28/18 07:53 Dose: 50 mg Documented by: [id number] Metformin HCl (Glucophage) 1,000 mg PO BID [facility] Stop: 10/27/18 20:59 Last Admin: 09/28/18 07:54 Dose: 1,000 mg Documented by: [id number] Admin: 09/27/18 21:50 Dose: 1,000 mg Documented by: [id number] Trazodone HCl (Desyrel) 100 mg PO HS [facility] Stop: 10/27/18 20:59 Last Admin: 09/27/18 21:49 Dose: 100 mg Documented by: [id number] Vitamin D (Vitamin D3) 1,000 units PO DAILY [facility] Stop: 10/28/18 08:59 Last Admin: 09/28/18 07:54 Dose: 1,000 units Documented by: [id number] Discontinued Medications Cephalexin HCl (Keflex) 500 mg PO NOW ONE Stop: 09/27/18 19:02 Last Admin: 09/27/18 19:06 Dose: 500 mg Documented by: [id number] Clozapine (Clozaril) 25 mg PO BID@0900,1200 [facility] Stop: 10/28/18 08:59 Last Admin: 09/28/18 07:54 Dose: 25 mg Documented by: [id number] Montelukast Sodium (Singulair) 10 mg PO DAILY [facility] Stop: 10/28/18 08:59 Last Admin: 09/28/18 07:54 Dose: 10 mg Documented by: [id number] Medical Decision Making Medical Records Attestation: I reviewed the patient's medical records. Home Medications Current Medication List: was personally reviewed by me Laboratory Data Attestation: I reviewed the patient's lab results. Result diagrams: 09/27/18 17:58 09/27/18 17:58 Lab Results 09/27/18 09/27/18 09/27/18 Range/Units 17:45 17:45 17:58 WBC 7.21 (4.8-10.8) K/uL RBC 4.57 (4.2-5.4) M/uL Hgb 11.5 L (12.0-16.0) g/dL Hct 35.6 L (37-47) % MCV 77.9 L (80-100) fL MCH 25.2 (25-34) pg MCHC 32.3 (32-36) g/dL RDW Std Deviation 44.6 (36.4-46.3) fL RDW Coeff of Bret 15.7 H (11.5-14.5) % Plt Count 179 (130-400) K/uL MPV 8.5 (7.4-10.4) fL Immature Gran % (Auto) 0.1 % Neut % (Auto) 67.1 % Lymph % (Auto) 27.0 % [place] % (Auto) 5.8 % Eos % (Auto) 0.0 % Baso % (Auto) 0.0 % Immature Gran # (Auto) 0.01 (0.00-0.02) K/uL Neut # (Auto) 4.83 (1.4-6.5) K/uL Lymph # (Auto) 1.95 (1.2-3.4) K/uL [place] # (Auto) 0.42 (0.11-0.59) K/uL Eos # (Auto) 0.00 (0-0.5) K/uL Baso # (Auto) 0.00 (0-0.2) K/uL Sodium (136-145) mmol/L Potassium (3.5-5.1) mmol/L Chloride (98-107) mmol/L Carbon Dioxide (21-32) mmol/L Anion Gap (3-11) BUN (7-18) mg/dl Creatinine (0.6-1.2) mg/dl Est Cr Clr Drug Dosing Est GFR ( Amer) Est GFR (Non-Af Amer) BUN/Creatinine Ratio (10-20) Glucose (70-99) mg/dl POC Glucose (70-99) Calcium (8.5-10.1) mg/dl Total Bilirubin (0.2-1) mg/dl AST (15-37) U/L ALT (12-78) U/L Alkaline Phosphatase (45-117) U/L Total Protein (6.4-8.2) gm/dl Albumin (3.4-5.0) gm/dl Globulin (2.5-4.0) gm/dl Albumin/Globulin Ratio (0.9-2) TSH (0.300-4.500) uIu/ml Urine Color Yellow Urine Appearance Cloudy H (Clear) Urine pH 6.0 (4.5-7.5) Ur Specific [place] 1.011 (1.000-1.030) Urine Protein Negative (Negative) Urine Glucose (UA) Negative (Negative) Urine Ketones Negative (Negative) Urine Blood Trace H (Negative) Urine Nitrite Negative (Negative) Urine Bilirubin Negative (Negative) Urine Urobilinogen Negative (Negative) Ur Leukocyte Esterase 2+ H (Negative) Urine WBC (Auto) >30 H (0-5) /hpf Urine RBC (Auto) 0-4 (0-4) /hpf U Hyaline Cast (Auto) 1-5 (0-5) /lpf U Epithel Cells (Auto) 10-20 H (0-5) /lpf Urine Bacteria (Auto) 2+ H (Negative) Salicylates (2.8-20) mg/dl Urine Opiates Screen Neg (Neg) Ur Methadone, Qual Neg (Neg) Acetaminophen (10-30) ug/ml Urine Barbiturates Neg (Neg) Ur Phencyclidine (PCP) Neg (Neg) U Amphetamin/Meth Scrn Neg (Neg) MDMA (Ecstasy) Screen Neg (Neg) U Benzodiazepines Scrn Neg (Neg) Ur Cocaine Metabolite Neg (Neg) U Marijuana (THC) Screen Neg (Neg) Ethyl Alcohol mg/dL (0-3) mg/dl 09/27/18 09/27/18 09/27/18 Range/Units 17:58 17:58 17:58 WBC (4.8-10.8) K/uL RBC (4.2-5.4) M/uL Hgb (12.0-16.0) g/dL Hct (37-47) % MCV (80-100) fL MCH (25-34) pg MCHC (32-36) g/dL RDW Std Deviation (36.4-46.3) fL RDW Coeff of Bret (11.5-14.5) % Plt Count (130-400) K/uL MPV (7.4-10.4) fL Immature Gran % (Auto) % Neut % (Auto) % Lymph % (Auto) % [place] % (Auto) % Eos % (Auto) % Baso % (Auto) % Immature Gran # (Auto) (0.00-0.02) K/uL Neut # (Auto) (1.4-6.5) K/uL Lymph # (Auto) (1.2-3.4) K/uL [place] # (Auto) (0.11-0.59) K/uL Eos # (Auto) (0-0.5) K/uL Baso # (Auto) (0-0.2) K/uL Sodium 140 (136-145) mmol/L Potassium 4.1 (3.5-5.1) mmol/L Chloride 105 (98-107) mmol/L Carbon Dioxide 26 (21-32) mmol/L Anion Gap 10.0 (3-11) BUN 7 (7-18) mg/dl Creatinine 0.61 (0.6-1.2) mg/dl Est Cr Clr Drug Dosing Not Reportable Est GFR ( Amer) 123.4 Est GFR (Non-Af Amer) 106.5 BUN/Creatinine Ratio 11.5 (10-20) Glucose 113 H (70-99) mg/dl POC Glucose (70-99) Calcium 9.1 (8.5-10.1) mg/dl Total Bilirubin 0.3 (0.2-1) mg/dl AST 12 L (15-37) U/L ALT 18 (12-78) U/L Alkaline Phosphatase 115 (45-117) U/L Total Protein 7.0 (6.4-8.2) gm/dl Albumin 3.3 L (3.4-5.0) gm/dl Globulin 3.7 (2.5-4.0) gm/dl Albumin/Globulin Ratio 0.9 (0.9-2) TSH 0.765 (0.300-4.500) uIu/ml Urine Color Urine Appearance (Clear) Urine pH (4.5-7.5) Ur Specific [place] (1.000-1.030) Urine Protein (Negative) Urine Glucose (UA) (Negative) Urine Ketones (Negative) Urine Blood (Negative) Urine Nitrite (Negative) Urine Bilirubin (Negative) Urine Urobilinogen (Negative) Ur Leukocyte Esterase (Negative) Urine WBC (Auto) (0-5) /hpf Urine RBC (Auto) (0-4) /hpf U Hyaline Cast (Auto) (0-5) /lpf U Epithel Cells (Auto) (0-5) /lpf Urine Bacteria (Auto) (Negative) Salicylates < 1.7 L (2.8-20) mg/dl Urine Opiates Screen (Neg) Ur Methadone, Qual (Neg) Acetaminophen < 2 L (10-30) ug/ml Urine Barbiturates (Neg) Ur Phencyclidine (PCP) (Neg) U Amphetamin/Meth Scrn (Neg) MDMA (Ecstasy) Screen (Neg) U Benzodiazepines Scrn (Neg) Ur Cocaine Metabolite (Neg) U Marijuana (THC) Screen (Neg) Ethyl Alcohol mg/dL < 3.0 (0-3) mg/dl 09/28/18 Range/Units 07:58 WBC (4.8-10.8) K/uL RBC (4.2-5.4) M/uL Hgb (12.0-16.0) g/dL Hct (37-47) % MCV (80-100) fL MCH (25-34) pg MCHC (32-36) g/dL RDW Std Deviation (36.4-46.3) fL RDW Coeff of Bret (11.5-14.5) % Plt Count (130-400) K/uL MPV (7.4-10.4) fL Immature Gran % (Auto) % Neut % (Auto) % Lymph % (Auto) % [place] % (Auto) % Eos % (Auto) % Baso % (Auto) % Immature Gran # (Auto) (0.00-0.02) K/uL Neut # (Auto) (1.4-6.5) K/uL Lymph # (Auto) (1.2-3.4) K/uL [place] # (Auto) (0.11-0.59) K/uL Eos # (Auto) (0-0.5) K/uL Baso # (Auto) (0-0.2) K/uL Sodium (136-145) mmol/L Potassium (3.5-5.1) mmol/L Chloride (98-107) mmol/L Carbon Dioxide (21-32) mmol/L Anion Gap (3-11) BUN (7-18) mg/dl Creatinine (0.6-1.2) mg/dl Est Cr Clr Drug Dosing Est GFR ( Amer) Est GFR (Non-Af Amer) BUN/Creatinine Ratio (10-20) Glucose (70-99) mg/dl POC Glucose 135 H (70-99) Calcium (8.5-10.1) mg/dl Total Bilirubin (0.2-1) mg/dl AST (15-37) U/L ALT (12-78) U/L Alkaline Phosphatase (45-117) U/L Total Protein (6.4-8.2) gm/dl Albumin (3.4-5.0) gm/dl Globulin (2.5-4.0) gm/dl Albumin/Globulin Ratio (0.9-2) TSH (0.300-4.500) uIu/ml Urine Color Urine Appearance (Clear) Urine pH (4.5-7.5) Ur Specific [place] (1.000-1.030) Urine Protein (Negative) Urine Glucose (UA) (Negative) Urine Ketones (Negative) Urine Blood (Negative) Urine Nitrite (Negative) Urine Bilirubin (Negative) Urine Urobilinogen (Negative) Ur Leukocyte Esterase (Negative) Urine WBC (Auto) (0-5) /hpf Urine RBC (Auto) (0-4) /hpf U Hyaline Cast (Auto) (0-5) /lpf U Epithel Cells (Auto) (0-5) /lpf Urine Bacteria (Auto) (Negative) Salicylates (2.8-20) mg/dl Urine Opiates Screen (Neg) Ur Methadone, Qual (Neg) Acetaminophen (10-30) ug/ml Urine Barbiturates (Neg) Ur Phencyclidine (PCP) (Neg) U Amphetamin/Meth Scrn (Neg) MDMA (Ecstasy) Screen (Neg) U Benzodiazepines Scrn (Neg) Ur Cocaine Metabolite (Neg) U Marijuana (THC) Screen (Neg) Ethyl Alcohol mg/dL (0-3) mg/dl ECG Data Attestation: I personally reviewed and interpreted this ECG as follows: Indication: altered mental status Rate (beats per minute): 103 Rhythm: sinus tachycardia Findings: + other (normal axis and intervals); no ST depression, no ST elevation and no acute ischemic change Blood Pressure Blood Pressure Findings: Elevated blood pressure Blood Pressure Disposition: further management by hospitalist RILEY Narrative The patient is a 47 year old white female with a past medical history of Microcytic anemia, diabetes, HTN, HLD, respiratory failure, Asthma, Suicidal ideation, schizoaffective disorder, and depression who presents to the Emergency Room with complaints of worsening depression and crying spells that began 1.5-2 weeks ago. Differential diagnosis: Etiologies such as psychiatric disorder, infection, hypoglycemia, electrolyte abnormalities, cardiac sources, intracerebral event, toxicological process, neurologic disorder, as well as others were entertained. Patient was seen and evaluated the bedside. The patient was complaining of increasing hopelessness. The patient does relate that her father recently earlier this month. The patient states that she has had depressed mood states that her sleep and appetite have been okay. The patient states that she initially denies any want for self-harm or harm of others or visual hallucin ations. The patient states though that she does have chronic auditory hallucinations of her grandfather telling her to hurt herself. Patient did have blood work completed which is really unremarkable. The patient was treated for possible UTI given the concern on urinalysis. Patient after discussion with the psych returned case inspector had become suicidal with plan to overdose. Given this the patient was admitted to 3 [address]. Impression & Plan Depression, Suicidal ideation, Cystitis Discharge Plan Visit Data *Final* Discharge Date/Time: 09/27/18 19:45 Chief Complaint: Mental Health Evaluation Stated Complaint: DEPRESSED,SLEEPING ALOT,ANXIETY ED Provider: Brandon Kaye Discharge Problem: Depression, Suicidal ideation, Cystitis Patient Disposition: Admitted As Inpatient Discharge Instructions Interventions: ED Discharge Assessment Last Done: 09/27/18 19:45 The scribe's documentation has been prepared under my direction and personally reviewed by me in its entirety. I confirm that the note above accurately reflects all work, treatment, procedures, and medical decision making performed by me.
[2018-09-27 19:07] LABS: Acetaminophen < 2 ug/ml (10-30); Salicylate < 1.7 mg/dl (2.8-20)
[2018-09-27] MEDS ORDERED: MAGNESIUM HYDROXIDE SUSP 30 ML UDC PO PRN (19:45)
[2018-09-27] MEDS ORDERED: SODIUM CHLORIDE 0.65% NA SOLN 45 ML (OCEAN) PRN (19:45)
[2018-09-27] MEDS ORDERED: ALUMINUM/MAGNESIUM SUSP 30 ML UDC PO PRN (19:45)
[2018-09-27] MEDS ORDERED: ACETAMINOPHEN 325 MG TAB PO PRN (19:45)
[2018-09-27] MEDS ORDERED: clonazePAM 0.5 MG TAB PO PRN (19:48)
[2018-09-27] MEDS: TRAZODONE HCL 100 MG TAB PO SCH (21:49)
[2018-09-27] MEDS: ATORVASTATIN 20 MG TAB PO SCH (21:50)
[2018-09-27] MEDS: cloZAPine 25 MG TAB PO SCH ×2 (21:50→22:04)
[2018-09-27] MEDS: cloZAPine 100 MG TAB PO SCH (21:50)
[2018-09-27] MEDS: METFORMIN HCL 500 MG TAB PO SCH (21:50)
[2018-09-27] MEDS: DESMOPRESSIN ACETATE 0.1 MG TAB PO SCH (21:50)
[2018-09-28] MEDS: LEVOTHYROXINE SODIUM 125 MCG TABLET PO SCH (07:53)
[2018-09-28] MEDS: LOSARTAN POTASSIUM 50 MG TAB PO SCH (07:53)
[2018-09-28] MEDS: ESTRADIOL 1 MG TAB PO SCH (07:54)
[2018-09-28] MEDS: METFORMIN HCL 500 MG TAB PO SCH ×2 (07:54→21:00)
[2018-09-28] MEDS: ESCITALOPRAM OXALATE 20 MG TAB PO SCH (07:54)
[2018-09-28] MEDS: CHOLECALCIFEROL 1,000 UNITS TAB PO SCH (07:54)
[2018-09-28] MEDS: lamoTRIgine 100 MG TAB PO SCH (07:54)
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
[2018-09-28] MEDS ORDERED: MONTELUKAST SODIUM 10 MG TABLET PO SCH (09:00)
[2018-09-28] MEDS ORDERED: cloZAPine 25 MG TAB PO SCH (09:00)
[2018-09-28] MEDS: cloZAPine 25 MG TAB PO SCH ×2 (10:56→21:03)
[2018-09-28] MEDS: clonazePAM 0.5 MG TAB PO PRN (12:09)
[2018-09-28] MEDS: ATORVASTATIN 20 MG TAB PO SCH (21:00)
[2018-09-28] MEDS: cloZAPine 100 MG TAB PO SCH (21:02)
[2018-09-28] MEDS: DESMOPRESSIN ACETATE 0.1 MG TAB PO SCH (21:03)
[2018-09-28] MEDS: TRAZODONE HCL 100 MG TAB PO SCH (21:03)
--- OUTSIDE RECORDS SUMMARY | 2018-09-28 22:44 | External Medical Summary | Continuity of Care Document ---
:1970 Author Name Nitza Dong, Provider Address Unavailable Unavailable , Care Team Providers Name Role Phone Niles Tam [email or web address] Rich PETERS Unavailable [email or web address] Brendan GILES Unavailable [email or web address] Tay VALERIO Unavailable [email or web address] Kami Laird M.D. Unavailable [email or web address] PRO Dong, W Unavailable Unavailable Unavailable Unavailable Unavailable Problems Shoulder pain, left (719.41) (M25.512) Acute sinusitis (461.9) (J01.90) Unintentional weight loss (783.21) (R63.4) Tremor (781.0) (R25.1) Right otitis media (382.9) (H66.91) Chronic sinusitis (473.9) (J32.9) Allergic rhinitis due to pollen (477.0) (J30.1) Irritable bowel syndrome (564.1) (K58.9) Schizoaffective disorder (295.70) (F25.9) Discharge from nipple (611.79) (N64.52) Gastro-esophageal reflux (530.81) (K21.9) Episode of unresponsiveness (780.09) (R41.89) Abnormal mammogram (793.80) (R92.8) Eczema (692.9) (L30.9) Atopic dermatitis, unspecified type (691.8) (L20.9) Hormone replacement therapy (HRT) (V07.4) (Z79.890) Sensorineural hearing loss (389.10) (H90.5) Allergic rhinitis (477.9) (J30.9) Type 2 diabetes mellitus (250.00) (E11.9) Influenza A (H1N1) (488.12) (J10.1) Urinary symptom or sign (788.99) (R39.9) Extrinsic asthma (493.00) (J45.909) Vitamin B12 deficiency (266.2) (E53.8) Iron deficiency anemia (280.9) (D50.9) Hemorrhoids (455.6) (K64.9) Staph aureus infection (041.11) (A49.01) Rash and nonspecific skin eruption (782.1) (R21) Seborrheic keratosis (702.19) (L82.1) Dry eyes, bilateral (375.15) (H04.123) Acute bacterial tonsillitis (463) (J03.80) Breast discharge (611.79) (N64.52) Obesity (BMI 30-39.9) (278.00) (E66.9) Hypothyroidism (244.9) (E03.9) Essential hypertension (401.9) (I10) Dyslipidemia (272.4) (E78.5) Numbness (782.0) (R20.0) Diabetic neuropathy (250.60) (E11.40) Vitamin D deficiency (268.9) (E55.9) Cough (786.2) (R05) Visit for routine field marketing director exam (V72.31) (Z01.419) Sinus headache (784.0) (R51) Allergies and Adverse Reactions Aspirin TABS (Allergy) Doxycycline Hyclate CAPS (Allergy) levoFLOXacin SOLN (Allergy) NSAIDs (Allergy) Penicillins (Adverse Event) Reaction: Na usea, Vomiting predniSONE TABS (Adverse Event) Reaction : Hallucinations Status: Denied Quinine Derivatives (Allergy) Matias-Dur TB12 (Allergy) Thorazine TABS (Allergy) Other (Allergy) Medications Montelukast Sodium 10 MG Oral Tablet; take 1 tablet by mouth once daily Letitia Tam Start: 29-Jul-2018 Quantity: 90 Refills: 0 clonazePAM 0.5 MG Oral Tablet; take 1 tablet twice daily as needed Refills: 0 Escitalopram Oxalate 20 MG Oral Tablet; TAKE 1 TABLET DAILY. Start: 15-Jan-2017 Quantity: 30 Refills: 5 cloZAPine 200 MG Oral Tablet Disintegrating; Take one tablet at bedtime Start: 20-Jul-2018 Refills: 0 cloZAPine 25 MG Oral Tablet; Take one pill by mouth at 1200 and at bedtime. Start: 20-Jul-2018 Refills: 0 metFORMIN HCl - 500 MG Oral Tablet; Take 2 tablets twi ce daily with food LORRAINE Villanueva Start: 11-Apr-2010 Quantity: 2 180 Tablet Bottle Refills: 0 Levothyroxine Sodium 125 MCG Oral Tablet; take 1 table t by mouth every morning Letitia Tam Start: 14-Sep-2018 Quantity: 90 Refills: 0 DDAVP 0.2 MG Oral Tablet; TAKE 1 TABLET AT BEDTIME. Refills: 0 Estradiol 1 MG Oral Tablet; TAKE 1 TABLET DAILY. DO Shilpa Cardona Start: 29-May-2015 End: Quantity: 30 13-Oct-2018 Refills: 8 lamoTRIgine 200 MG Oral Tablet; TAKE 1 TABLET DAILY. Start: 20-Jul-2018 Refills: 0 traZODone HCl - 100 MG Oral Tablet; TAKE 1 TABLET Bedtime Start: 20-Jul-2018 Refills: 0 Benzonatate 100 MG Oral Capsule; TAKE 1 CAPSULE 3 TIMES [place] Y NEEDED. Start: 20-Jul-2018 Refills: 0 predniSONE 10 MG Oral Tablet; TAKE DIRECTED. Start: 20-Jul-2018 Refills: 0 Tamiflu 75 MG Oral Capsule; TAKE 1 CAPSULE TWICE DAILY WITH MEALS. Start: 20-Jul-2018 Refills: 0 10 Capsule Pack Hydrocortisone 2.5 % Rectal Cream; APPLY ONCE DAILY NEEDED. Letitia Tma Start: 13-Nov-2017 Quantity: 1 30 GM Tube Refills: 1 Na Ferric Gluc Cplx in Sucrose 12.5 MG/M L Intravenous Solution; USE DIRECTED. Letitia Laird Start: 10-Feb-2013 Refills: 0 Status: Admin Reques karoline Atorvastatin Calcium 20 MG Oral Tablet; TAKE 1 TABLET AT BEDTIME. Letitia Tam Start: 08-Feb-2013 Quantity: 90 Refills: 3 Losartan Potassium 50 MG Oral Tablet; take 1 tablet by mouth once daily Letitia Tam Start: 07-Sep-2018 Quantity: 90 Refills: 0 Vitamin D (Ergocalciferol) 96923 UNIT Oral Capsule; ta ke 1 capsule monthly Letitia Tam Start: 08-Aug-2017 Quantity: 12 Refills: 0 Ventolin HFA 108 (90 Base) MCG/ACT Inhal ation Aerosol Solution; INHALE 1 TO 2 PUFFS EVERY 4 TO 6 HOURS NEEDED. TEODORO Cross Start: 27-Apr-2018 Quantity: 1 18 GM Inhaler Refills: 1 Vitamin D 1000 UNIT Oral Tablet; TAKE 1 TABLET DAILY. Mino Tam Start: 20-May-2018 Quantity: 30 Refills: 5 Procedures Hemoglobin A1C Date: 24-Aug-2018 Ultra TSH Date: 24-Aug-2018 Microalbumin Creatin. Ratio [place] [facility] Date: 24-Aug-2018 Comp Metabolic Panel Date: 24-Aug-2018 History of Hysterectomy Status: Complete d History of Thyroid Surgery Status: Compl eted History of wisdom tooth extraction Statu s: Completed Immunizations Pneumococcal polysaccharide vaccine, 23 valent On: 6 0:00 Influenza On: Jan-2010 Influenza On: 12-Apr-2011 14:09 Lot #: [id number], SANOFI PASTEUR PPD On: 11-Nov-2011 11:39 Lot #: [id number], SANOFI PASTEUR Influenza On: 12-Feb-2012 16:12 Lot #: [id number], SANOFI PASTEUR Fluzone INJ On: 02-Apr-2013 13:33 Lot #: [id number], SANOFI PASTEUR Influenza Comments:declined 20 14 Tdap (Adacel) On: 11-Jan-2016 PPD On: 15-Jan-2016 9:51 Lot #: [id number], SANOFI PASTEUR Family History Mother Family history of Breast Cancer (V16.3) Status: Active Family history of Hypertension (V17.49) Status: Active Family history of cerebrovascular accident (CVA) (V17.1) (Z8 2.3) Status: Active Unknown Family Member Family history of Hypertension (V17.49) Status: Active Comments: Family History Father Family history of Hypertension (V17.49) Status: Active Family history of Heart Disease (V17.49) Status: Active Family history of malignant neoplasm (V16.9) (Z80.9) Status: Active Grandfather Family history of Heart Disease (V17.49) Status: Active Grandmother Family history of cerebrovascular accident (CVA) (V17.1) (Z8 2.3) Status: Active Social History - Smoking Status Former smoker Plan of Treatment Planned Encounters Appointment; Pro, Niles, M.D. Start: 14-Jan-2019 13:20 Req uest Planned Observations Planned Goals not documented Results CBC With DIFF (Pending) Laboratory: [facility] Laboratory [address] [place] [id number] tel: 09-Sep-2018 11:15 WBC 7.12 K/uL Range: 4.8-10.8 K/u L RBC 4.49 {M/uL} Range: 4.2-5.4 M/uL HEMOGLOBIN 11.3 g/dL (below low Range: 12.0-16.0 g/dL threshold) HEMATOCRIT 35.3 % (below low Range: 37- 47 % threshold) MCV 78.6 fL (below low threshold) Range: 80-100 fL MCH 25.2 pg Range: 25-34 pg MEAN CORPUSCULAR HGB CONC 32.0 g/dL Rang e: 32-36 g/dL RED CELL DISTRIBUTION WIDTH SD 47.4 Rang e: 36.4-46.3 fL fL (above high threshold) RED CELL DISTRIBUTION WIDTH CV 16.6 Rang e: 11.5-14.5 % % (above high threshold) PLATELET COUNT 202 K/uL Range: 130-400 K/uL MEAN PLATELET VOLUME 8.9 fL Range: 7.4- 10.4 fL NEUT % 64.4 % Range: % LYMPH % 29.2 % Range: % MONO % 6.3 % Range: % EOS % 0.0 % Range: % BASO % 0.0 % Range: % IG% 0.1 % Range: % Comments: IG paramet er reflects the combination of Metas, Myelos andPromyelocytes. Neutrophils (Auto) 4.58 K/uL Range: 1. 4-6.5 K/uL LYMPH ABS # 2.08 K/uL Range: 1.2-3.4 K/ uL MONO ABS # 0.45 K/uL Range: 0.11-0.59 K /uL EOS ABS # 0.00 K/uL Range: 0-0.5 K/uL BASO ABS # 0.00 K/uL Range: 0-0.2 K/uL IG# 0.01 K/uL Range: 0.00-0.02 K/ uL Encounters Appointment; Santos Villanueva PA-C 24-Aug-2018 18:00 Encounter Diagnosis: Problem not documented Appointment; Guillermina Cross CRNP 27-Apr-2018 14:00 Encounter Diagnosis: Problem not documented Appointment; Niles Tam M.D. 26-Mar-2018 13:20 Encounter Diagnosis: Problem not documented Appointment; Nikole Combs PA-C 08-Jan-2018 10:30 Encounter Diagnosis: Problem not documented Appointment; Daniel Anton DO 18-Nov-2017 13:50 Encounter Diagnosis: Problem not documented Appointment; Niles Tam M.D. 13-Nov-2017 14:00 Encounter Diagnosis: Problem not documented Appointment; Nikole Combs PA-C 22-Oct-2017 14:45 Encounter Diagnosis: Problem not documented Appointment; SUPERVISOR PURIFICATION SC1, Procedure Room 06-Oct-2017 11:30 Encounter Diagnosis: Problem not documented Appointment; Shilpa Cardona DO 06-Oct-2017 11:00 Encounter Diagnosis: Problem not documented Appointment; Daniel Anton DO 23-Sep-2017 9:00 Encounter Diagnosis: Problem not documented Appointment; Yoselyn Chau PA-C 11-Sep-2017 10:30 Encounter Diagnosis: Problem not documented Appointment; Nikole Combs PA-C 29-Aug-2017 13:45 Encounter Diagnosis: Problem not documented Appointment; SUPERVISOR PURIFICATION SC1, Procedure Room 08-Aug-2017 11:00 Encounter Diagnosis: Problem not documented Appointment; Shannan Poole M.D. 06-Aug-2017 9:00 Encounter Diagnosis: Problem not documented Appointment; Santos Villanueva PA-C 25-Jul-2017 9:00 Encounter Diagnosis: Problem not documented Appointment; Niles Tam M.D. 14-Jul-2017 16:00 Encounter Diagnosis: Problem not documented Appointment; Kaley Westbrook DO 04-Jul-2017 15:00 Encounter Diagnosis: Problem not documented Appointment; Nikole Combs PA-C 30-May-2017 10:15 Encounter Diagnosis: Problem not documented Appointment; Nikole Combs PA-C 16-Apr-2017 13:45 Encounter Diagnosis: Problem not documented Appointment; Santos Villanueva PA-C 25-Mar-2017 12:30 Encounter Diagnosis: Problem not documented Appointment; Nikole Cmobs PA-C 18-Mar-2017 8:30 Encounter Diagnosis: Problem not documented Appointment; Nikole Combs PA-C 12-Mar-2017 10:45 Encounter Diagnosis: Problem not documented Appointment; Nikole Combs PA-C 24-Jan-2017 14:30 Encounter Diagnosis: Problem not documented Appointment; Nikole Combs PA-C 15-Jan-2017 13:00 Encounter Diagnosis: Problem not documented Appointment; Shilpa Cardona DO 29-Nov-2016 16:15 Encounter Diagnosis: Problem not documented Appointment; SUPERVISOR PURIFICATION SC1, Procedure Room 29-Nov-2016 16:15 Encounter Diagnosis: Problem not documented Appointment; Santos Villanueva PA-C 07-Oct-2016 15:30 Encounter Diagnosis: Problem not documented Appointment; Carlos Rodgers DO 01-Oct-2016 11:30 Encounter Diagnosis: Problem not documented Appointment; Niles Tam M.D. 14-Jan-2019 13:20 Encounter Diagnosis: Problem not documented
[2018-09-29] MEDS: LEVOTHYROXINE SODIUM 125 MCG TABLET PO SCH (08:03)
[2018-09-29] MEDS: LOSARTAN POTASSIUM 50 MG TAB PO SCH (08:03)
[2018-09-29] MEDS: ESCITALOPRAM OXALATE 20 MG TAB PO SCH (08:04)
[2018-09-29] MEDS: ESTRADIOL 1 MG TAB PO SCH (08:04)
[2018-09-29] MEDS: lamoTRIgine 100 MG TAB PO SCH (08:04)
[2018-09-29] MEDS: METFORMIN HCL 500 MG TAB PO SCH ×2 (08:04→17:21)
[2018-09-29] MEDS: CHOLECALCIFEROL 1,000 UNITS TAB PO SCH (08:04)
[2018-09-29] MEDS: clonazePAM 0.5 MG TAB PO PRN (08:09)
[2018-09-29 08:37] LABS: Chol HDL Ratio 4; Cholesterol 158 mg/dl (0-200); HDL Cholesterol 41 mg/dl; LDL Cholesterol Calculated 80 mg/dl; Triglycerides 185 mg/dl (0-150); VLDL Cholesterol 37 mg/dl
[2018-09-29] MEDS: cloZAPine 25 MG TAB PO SCH ×2 (12:29→21:07)
--- NOTE | 2018-09-29 14:06 | Psychiatric Progress Note ---
Date of Service September 29, 2018 Impression / Recommendations Impression Remains depressed with SI and command hallucinations. Clozapine level drawn, but will not be back for another week. In general, Leisa responds well to the structure and support of the milieu and this will give her a chance to reestablish a daily schedule, something that helps her remain grounded at home. (1) Schizoaffective disorder, depressive type: 09/28 -continue home psychotropic medications, including clozapine 25 mg q. noon and 225 mg nightly, desmopressin 0.2 mg at bedtime, trazodone 100 mg at bedtime, lamotrigine 200 mg every morning, escitalopram 20 mg every morning, and clonazepam 0.5 mg twice daily as needed. -Check clozapine level and consider titration of clozapine to target auditory hallucinations and suicidality. She has been sleeping excessively recently, likely related to her depression, but we will need to balance the potential benefits of increasing her antipsychotic with the risk of worsening sedation, which could negatively impair functioning. -Coordinate care with outpatient therapist at [facility] (message sent), patient case manager, skills [facility] psych rehab worker, and [facility]. -Monitoring on an atypical antipsychotic: Last fasting lipid profile was done 11/2017 and was normal. Will order FLP for tomorrow. Most recent hemoglobin A1c was July 2018 (6.7, estimated average glucose 146). -Continue weekly CBC with differential for monitoring of ANC; on admission was 4.83. 09/29 - Continue current meds and plan - Await clozapine level for dosage adjustment - Encourage exercise and structure (2) Cystitis: 09/28 -UA on admission was contaminated, cloudy, with trace blood, 2+ leukocyte esterase, greater than 30 WBCs, 10-20 epithelial cells, 2+ bacteria. Patient denies dysuria, urinary frequency and urgency. She received a one-time dose of Keflex in the ER. Will not order antibiotics, given that she is asymptomatic and appears to have a contaminated sample, but will follow up on urine culture results. (3) Hypertension: 09/28 -continue home dose of losartan potassium, and monitor blood pressure. Send records to PCP, Dr. Tam, for coordination of care. (4) Hypothyroidism: 09/28 -continue home dose of levothyroxine 125 mcg daily. TSH on admission 0.765, within normal limits. (5) Type 2 diabetes mellitus: 09/28 -continue diabetic diet and metformin daily. Random glucose on admission 113, and hemoglobin A1c on 08/11/2018 was 6.7 (estimated average glucose 146). -Encourage good nutrition and regular exercise. (6) Dyslipidemia: 09/28 -most recent fasting lipid profile was 12/09/2017, all values within normal limits. Will order FLP for tomorrow for monitoring on an atypical antipsychotic. -Continue home dose of Lipitor. (7) Asthma: 09/28 -continue home dose of Singulair 10 mg at bedtime. (8) Morbid obesity with BMI of 50.0-59.9, adult: 09/28 -as above, continue education regarding good nutrition and the vu efits of regular exercise. BMI is 53.8 (294 lbs), and weight has increased 13 pounds in the past 7 months. 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 Chief Complaint "Not much better. ". Review of Systems Sleep Information Total Hours of Sleep: 8.75 Sleep Comments: pt NPO during the night. pt on q-15 minute checks Meal Information Percent Meal Consumed - Breakfast: 100 Percent Meal Consumed - Lunch: 80 Percent Meal Consumed - Dinner: 100 Subjective Subjective Patient was seen & assessed and interval progress reviewed with Treatment Team. The patient says that she is not much better today. She remains depressed, grieving the loss of her father. She spoke with her brother Shon by phone last night and they discussed recent requests from friends in this area, to have a memorial service for her dad who lived here for many years. She does not feel up to this as it would be very trying for her to sit through it as she did when her mother . Her brother agreed to talk with her director of distribution and offer an alte rnative such as donating in their father's memory to a charilty, which Leisa likes. She is still having SI, and hearing her grandfather's voice telling her to hurt herself. She reports good sleep and appetite. She has not felt able to exercise but plans to try again today. Physical Exam Psychiatric Orientation: alert, oriented x 3 and cooperative Apperance: appropriately dressed and appropriately groomed Eye Contact: good eye contact Motor Behavior: steady gait and station (ambulates with a quad cane) Speech: normal rate/rhythm/volume of speech Affect: + blunted affect Mood: + depressed mood Thought Process: goal directed thought process Thought Content: reality based without delusions Suicidal Thoughts: + reports suicidal thoughts Homicidal Thoughts: denies homicidal thoughts Hallucinations: + auditory hallucinations; no visual hallucinations Cognition: recent memory grossly intact, remote memory grossly intact, attention grossly intact and language grossly intact Estimated Intelligence: consistent with education level Insight: + limited insight Judgement: + limited judgement Vital Signs (Past 24 Hours) Last Vital Signs Temp 36.3 C L 09/29/18 06:40 Pulse 96 H 09/29/18 06:40 Resp 18 09/29/18 06:40 BP 151/87 H 09/29/18 06:40 Pulse Ox 95 09/27/18 20:47 Results & Data Laboratory Results Laboratory Results - last 24 hr 09/29/18 09/29/18 07:17 07:51 POC Glucose 137 H Triglycerides 185 H Cholesterol 158 LDL Cholesterol, Calc 80 VLDL Cholesterol, Calc 37 HDL Cholesterol 41 Cholesterol/HDL Ratio 4 Current Inpatient Medications Current Inpatient Medications: Current Inpatient Medications Acetaminophen (Tylenol) 650 mg PO Q4H PRN PRN Reason: Headache or Minor Fever Stop: 10/27/18 19:44 Al Hydrox/Mg Hydrox/Simethicone (Maalox) 30 ml PO Q4H PRN PRN Reason: GI Upset Stop: 10/27/18 19:44 Atorvastatin Calcium (Lipitor) 20 mg PO HS JOSE Stop: 10/27/18 20:59 Last Admin: 09/28/18 21:00 Dose: 20 mg Documented by: Clonazepam (Klonopin) 0.5 mg PO BID@0900,1200 PRN PRN Reason: Anxiety Stop: 10/28/18 09:03 Last Admin: 09/29/18 08:09 Dose: 0.5 mg Documented by: Clozapine (Clozapine) 200 mg PO HS [facility] Stop: 10/27/18 20:59 Last Admin: 09/28/18 21:02 Dose: 200 mg Documented by: Clozapine (Clozaril) 25 mg PO BID@1200,2200 [facility] Stop: 10/28/18 11:59 Last Admin: 09/29/18 12:29 Dose: 25 mg Documented by: Desmopressin Acetate (Ddavp) 0.2 mg PO [facility] Stop: 10/27/18 20:59 Last Admin: 09/28/18 21:03 Dose: 0.2 mg Documented by: Ergocalciferol (Vitamin D2) 50,000 units PO We@0900 [facility] Stop: 09/30/18 09:01 Escitalopram Oxalate (Lexapro) 20 mg PO DAILY [facility] Stop: 10/28/18 08:59 Last Admin: 09/29/18 08:04 Dose: 20 mg Documented by: Estradiol (Estrace) 1 mg PO QAM [facility] Stop: 10/28/18 08:59 Last Admin: 09/29/18 08:04 Dose: 1 mg Documented by: Hydroxyzine HCl (Vistaril) 25 mg PO Q4H PRN PRN Reason: Anxiety Stop: 10/27/18 19:44 Hydroxyzine HCl (Vistaril) 50 mg PO HSZ PRN PRN Reason: Insomnia Stop: 10/27/18 19:44 Lamotrigine ([facility]ictal) [facility] Stop: 10/28/18 08:59 Last Admin: 09/29/18 08:04 Dose: 200 mg Documented by: Levothyroxine Sodium (Synthroid) 125 mcg PO DAILYBB [facility] Stop: 10/28/18 07:59 Last Admin: 09/29/18 08:03 Dose: 125 mcg Documented by: Losartan Potassium (Cozaar) 50 mg PO QAM [facility] Stop: 10/28/18 08:59 Last Admin: 09/29/18 08:03 Dose: 50 mg Documented by: Magnesium Hydroxide (Milk Of Magnesia) 30 ml PO DAILY PRN PRN Reason: Heartburn Stop: 10/27/18 19:44 Metformin HCl (Glucophage) 1,000 mg PO BIDM [facility] Stop: 10/29/18 17:44 Montelukast Sodium (Singulair) 10 mg PO [facility] Stop: 10/29/18 21:59 Sodium Chloride (Owen Nasal) 1 - 2 sprays NA PRN PRN PRN Reason: Nasal Dryness/Congestion Stop: 10/27/18 19:44 Trazodone HCl (Desyrel) 100 mg PO HS JOSE Stop: 10/27/18 20:59 Last Admin: 09/28/18 21:03 Dose: 100 mg Documented by: Vitamin D (Vitamin D3) 1,000 units PO DAILY JOSE Stop: 10/28/18 08:59 Last Admin: 09/29/18 08:04 Dose: 1,000 units Documented by: Post Discharge Appointments Primary Care Physician Name Of Family Doctor: Dr. Niles Tam, [facility] [place] Primary Care Psychiatrist Name of Psychiatrist: Dr Urbina,[facility] Psychiatrist's Therapist Name of Therapist: Lamar Munoz, [facility] Therapist's Date of Therapist Appointment: 10/02/18 Student Finance Advisor Name of Student Finance Advisor: NOREEN Thomason Phone Number for Student Finance Advisor: [phone] Partial or Psych Rehab Name of Partial or Psych Rehab: [facility] Phone Number of Partial or Psych Rehab: cell: [phone] Partial or Psych Rehab Appointment Comment: call to notify of dc & to schedule Contact Information Discharge Discharge Address: [address] [place] [address] CPT Code CPT Code 52931
[2018-09-29] MEDS: DESMOPRESSIN ACETATE 0.1 MG TAB PO SCH (21:07)
[2018-09-29] MEDS: cloZAPine 100 MG TAB PO SCH (21:07)
[2018-09-29] MEDS: TRAZODONE HCL 100 MG TAB PO SCH (21:08)
[2018-09-29] MEDS: MONTELUKAST SODIUM 10 MG TABLET PO SCH (21:08)
[2018-09-29] MEDS: ATORVASTATIN 20 MG TAB PO SCH (21:08)
[2018-09-30] MEDS: ESTRADIOL 1 MG TAB PO SCH (08:24)
[2018-09-30] MEDS: LOSARTAN POTASSIUM 50 MG TAB PO SCH (08:24)
[2018-09-30] MEDS: LEVOTHYROXINE SODIUM 125 MCG TABLET PO SCH (08:24)
[2018-09-30] MEDS: METFORMIN HCL 500 MG TAB PO SCH ×2 (08:25→17:19)
[2018-09-30] MEDS: ESCITALOPRAM OXALATE 20 MG TAB PO SCH (08:25)
[2018-09-30] MEDS: CHOLECALCIFEROL 1,000 UNITS TAB PO SCH (08:25)
[2018-09-30] MEDS: lamoTRIgine 100 MG TAB PO SCH (08:25)
[2018-09-30] MEDS ORDERED: ERGOCALCIFEROL 50,000 UNITS CAP PO SCH (09:00)
--- NOTE | 2018-09-30 09:03 | Psychiatric Progress Note ---
Date of Service September 30, 2018 Impression / Recommendations Impression Remains depressed with SI. Is making every effort to get back into some daily structure, attending groups, but admits that without being here she would retreat to bed again. REcommend ongoing inpatient treatment. (1) Schizoaffective disorder, depressive type: 09/28 -continue home psychotropic medications, including clozapine 25 mg q. noon and 225 mg nightly, desmopressin 0.2 mg at bedtime, trazodone 100 mg at bedtime, lamotrigine 200 mg every morning, escitalopram 20 mg every morning, and clonazepam 0.5 mg twice daily as needed. -Check clozapine level and consider titration of clozapine to target auditory hallucinations and suicidality. She has been sleeping excessively recently, likely related to her depression, but we will need to balance the potential benefits of increasing her antipsychotic with the risk of worsening sedation, which could negatively impair functioning. -Coordinate care with outpatient therapist at [facility] (message sent), pillowcase cutter, skills [employer] psych rehab worker, and [facility]. -Monitoring on an atypical antipsychotic: Last fasting lipid profile was done 11/2017 and was normal. Will order FLP for tomorrow. Most recent hemoglobin A1c was July 2018 (6.7, estimated average glucose 146). -Continue weekly CBC with differential for monitoring of ANC; on admission was 4.83. 09/29 - Continue current meds and plan - Await clozapine level for dosage adjustment - Encourage exercise and structure 09/30 - Continue to encourage exercise and structure - C ontinue current meds - Await Clozapine level. (2) Cystitis: 09/28 -UA on admission was contaminated, cloudy, with trace blood, 2+ leukocyte esterase, greater than 30 WBCs, 10-20 epithelial cells, 2+ bacteria. Patient denies dysuria, urinary frequency and urgency. She received a one-time dose of Keflex in the ER. Will not order antibiotics, given that she is asymptomatic and appears to have a contaminated sample, but will follow up on urine culture results. (3) Hypertension: 09/28 -continue home dose of losartan potassium, and monitor blood pressure. Send records to PCP, Dr. Tam, for coordination of care. (4) Hypothyroidism: 09/28 -continue home dose of levothyroxine 125 mcg daily. TSH on admission 0.765, within normal limits. (5) Type 2 diabetes mellitus: 09/28 -continue diabetic diet and metformin daily. Random glucose on admission 113, and hemoglobin A1c on 08/11/2018 was 6.7 (estimated average glucose 146). -Encourage good nutrition and regular exercise. (6) Dyslipidemia: 09/28 -most recent fasting lipid profile was 12/09/2017, all values within normal limits. Will order FLP for tomorrow for monitoring on an atypical antipsychotic. -Continue home dose of Lipitor. (7) Asthma: 09/28 -continue home dose of Singulair 10 mg at bedtime. (8) Morbid obesity with BMI of 50.0-59.9, adult: 09/28 -as above, continue education regarding good nutrition and the benefits of regular exercise. BMI is 53.8 (294 lbs), and weight has increased 13 pounds in the past 7 months. Risk Factors Assessment Male: No : Yes Do You Have Access To A Gun?: No Health Problems: Yes Mental Health Diagnoses: Yes Substance Use Disorders: No Previous Attempt: Yes Family History of Suicide: Yes Previous Psychiatric Hospitalization: Yes Hopelessness: Yes Smoker: No Protective Factors Assessment Restorationism Beliefs: Yes : No Responsible for Young Children: No Employed: No ([employer]ILL[employer] on Mondays and Disability) Stable Relationships: Yes Supportive Family: Yes Good Rapport with Provider: Yes Interval History Identifying Information 47 yo female, well know to our hospital for schizoaffective disorder, depressed type, admitted voluntarily with severe depression, inability to function and command auditory hallucinations. Chief Complaint "I'm still pretty depressed.". Review of Systems Sleep Information Total Hours of Sleep: 7 Sleep Comments: pt on q-15 minute checks Meal Information Percent Meal Consumed - Breakfast: 100 Percent Meal Consumed - Lunch: 80 Percent Meal Consumed - Dinner: 80 Subjective Subjective Patient was seen & assessed and interval progress reviewed with Treatment Team. The patient reports ongoing depression with suicidal thinking, but denies that she would act on it here in the hospital. She continues to hear her grandfather's voice "about the same" as yesterday. she has been attending groups, but still lacks the motivation to get back into some exercise but she is trying. She talked again with her brother last evening which she finds supportive. She does not yet feel able to consider going home, fearing that she will return to being non functional and finds the support of the milieu and peers helpful. She denies visual hallucinations. Sleep and appetite are good. Physical Exam Psychiatric Orientation: alert and cooperative Apperance: appropriately dressed and appropriately groomed Eye Contact: good eye contact Motor Behavior: steady gait and station (ambulates with quad cane) Speech: normal rate/rhythm/volume of speech Affect: + depressed affect and + flat affect Mood: + depressed mood and + anxious mood Thought Process: goal directed thought process Thought Content: reality based without delusions Suicidal Thoughts: denies suicidal plan; + reports suicidal thoughts Homicidal Thoughts: denies homicidal thoughts Hallucinations: + auditory hallucinations; no visual hallucinations Cognition: recent memory grossly intact, remote memory grossly intact, attention grossly intact and language grossly intact Estimated Intelligence: consistent with education level Insight: + impaired insight Judgement: + impaired judgement Vital Signs (Past 24 Hours) Last Vital Signs Temp 36.4 C L 09/30/18 06:52 Pulse 96 H 09/30/18 06:53 Resp 18 09/30/18 06:52 BP 126/80 09/30/18 06:53 Pulse Ox 95 09/27/18 20:47 Results & Data Laboratory Results Laboratory Results - last 24 hr 09/30/18 08:28 POC Glucose 130 H Current Inpatient Medications Current Inpatient Medications: Current Inpatient Medications Acetaminophen (Tylenol) 650 mg PO Q4H PRN PRN Reason: Headache or Minor Fever Stop: 10/27/18 19:44 Last Admin: 09/30/18 07:01 Dose: 650 mg Documented by: Al Hydrox/Mg Hydrox/Simethicone (Maalox) 30 ml PO Q4H PRN PRN Reason: GI Upset Stop: 10/27/18 19:44 Atorvastatin Calcium (Lipitor) 20 mg PO HS [facility] Stop: 10/27/18 20:59 Last Admin: 09/29/18 21:08 Dose: 20 mg Documented by: Clonazepam (Klonopin) 0.5 mg PO BID PRN PRN Reason: Anxiety Stop: 10/28/18 09:03 Clozapine (Clozapine) 200 mg PO HS [facility] Stop: 10/27/18 20:59 Last Admin: 09/29/18 21:07 Dose: 200 mg Documented by: Clozapine (Clozaril) 25 mg PO BID@1200,2200 [facility] Stop: 10/28/18 11:59 Last Admin: 09/29/18 21:07 Dose: 25 mg Documented by: Desmopressin Acetate (Ddavp) 0.2 mg PO [facility] Stop: 10/27/18 20:59 Last Admin: 09/29/18 21:07 Dose: 0.2 mg Documented by: Escitalopram Oxalate (Lexapro) 20 mg PO DAILY [facility] Stop: 10/28/18 08:59 Last Admin: 09/30/18 08:25 Dose: 20 mg Documented by: [facility]adiol ([facility]ace) [facility] Stop: 10/28/18 08:59 Last Admin: 09/30/18 08:24 Dose: 1 mg Documented by: Hydroxyzine HCl (Vistaril) 25 mg PO Q4H PRN PRN Reason: Anxiety Stop: 10/27/18 19:44 Last Admin: 09/29/18 15:55 Dose: 25 mg Documented by: Hydroxyzine HCl (Vistaril) 50 mg PO HSZ PRN PRN Reason: Insomnia Stop: 10/27/18 19:44 Lamotrigine (Lamictal) 200 mg PO [facility] Stop: 10/28/18 08:59 Last Admin: 09/30/18 08:25 Dose: 200 mg Documented by: Levothyroxine Sodium (Synthroid) 125 mcg PO DAILYBB [facility] Stop: 10/28/18 07:59 Last Admin: 09/30/18 08:24 Dose: 125 mcg Documented by: Losartan Potassium (Cozaar) [facility] Stop: 10/28/18 08:59 Last Admin: 09/30/18 08:24 Dose: 50 mg Documented by: Magnesium Hydroxide (Milk Of Magnesia) 30 ml PO DAILY PRN PRN Reason: Heartburn Stop: 10/27/18 19:44 Metformin HCl (Glucophage) 1,000 mg PO BIDM [facility] Stop: 10/29/18 17:44 Last Admin: 09/30/18 08:25 Dose: 1,000 mg Documented by: Montelukast Sodium (Singulair) 10 mg PO [facility] Stop: 10/29/18 21:59 Last Admin: 09/29/18 21:08 Dose: 10 mg Documented by: Sodium Chloride ([place] Nasal) 1 - 2 sprays NA PRN PRN PRN Reason: Nasal Dryness/Congestion Stop: 10/27/18 19:44 Trazodone HCl (Desyrel) 100 mg PO HS [facility] Stop: 10/27/18 20:59 Last Admin: 09/29/18 21:08 Dose: 100 mg Documented by: Vitamin D (Vitamin D3) 1,000 units PO DAILY [facility] Stop: 10/28/18 08:59 Last Admin: 09/30/18 08:25 Dose: 1,000 units Documented by: Post Discharge Appointments Primary Care Physician Name Of Family Doctor: Dr. Niles Tam, [facility] Primary Care Psychiatrist Name of Psychiatrist: Dr Urbina [facility] Psychiatrist's Date of Appointment with Psychiatrist: 10/06/18 Time of Appointment with Psychiatrist: 3:00 p.m. Therapist Name of Therapist: Lamar Miller [facility] Therapist's Date of Therapist Appointment: 10/02/18 Jawbone Puller Name of Jawbone Puller: NOREEN Thomason Phone Number for Jawbone Puller: [phone] Date of Appointment with Jawbone Puller: 10/07/18 Time of Appointment with Jawbone Puller: 2:30 p.m. Partial or Psych Rehab Name of Partial or Psych Rehab: [facility] Phone Number of Partial or Psych Rehab: cell: [phone] Partial or Psych Rehab Appointment Comment: call to notify of dc & to schedule Contact Information Discharge Discharge Address: [address] [place] [address] CPT Code CPT Code 49537
[2018-09-30] MEDS: cloZAPine 25 MG TAB PO SCH ×2 (13:14→21:12)
[2018-09-30] MEDS: clonazePAM 0.5 MG TAB PO PRN (13:14)
[2018-09-30] MEDS: ATORVASTATIN 20 MG TAB PO SCH (21:12)
[2018-09-30] MEDS: DESMOPRESSIN ACETATE 0.1 MG TAB PO SCH (21:12)
[2018-09-30] MEDS: cloZAPine 100 MG TAB PO SCH (21:12)
[2018-09-30] MEDS: TRAZODONE HCL 100 MG TAB PO SCH (21:12)
[2018-09-30] MEDS: MONTELUKAST SODIUM 10 MG TABLET PO SCH (21:12)
--- NOTE | 2018-10-01 08:26 | Psychiatric Progress Note ---
Date of Service October 01, 2018 Impression / Recommendations Impression Remains depressed with SI, and unable to contract for safety outside of the hospital. Adjusting clozapine to target command auditory hallucinations. (1) Schizoaffective disorder, depressive type: 09/28 -continue home psychotropic medications, including clozapine 25 mg q. noon and 225 mg nightly, desmopressin 0.2 mg at bedtime, trazodone 100 mg at bedtime, lamotrigine 200 mg every morning, escitalopram 20 mg every morning, and clonazepam 0.5 mg twice daily as needed. -Check clozapine level and consider titration of clozapine to target auditory hallucinations and suicidality. She has been sleeping excessively recently, likely related to her depression, but we will need to balance the potential benefits of increasing her antipsychotic with the risk of worsening sedation, which could negatively impair functioning. -Coordinate care with outpatient therapist at [facility] (message sent), director of casework department, skills [employer] psych rehab worker, and [facility]. -Monitoring on an atypical antipsychotic: Last fasting lipid profile was done 11/2017 and was normal. Will order FLP for tomorrow. Most recent hemoglobin A1c was July 2018 (6.7, estimated average glucose 146). -Continue weekly CBC with differential for monitoring of ANC; on admission was 4.83. 09/29 - Continue current meds and plan - Await clozapine level for dosage adjustment - Encourage exercise and structure 09/30 - Continue to encourage exercise and structure - Continue current meds - Await Clozapine level. 10/01 -Patient reports worsening auditory hallucinations and is agreeable to increasing clozapine by 25 mg (to 50 mg at noon and 225 mg at bedtime). Clozapine level is a send out, and results are pending, but she has been on higher doses in the past. (2) Cystitis: 09/28 -UA on admission was contaminated, cloudy, with trace blood, 2+ leukocyte esterase, greater than 30 WBCs, 10-20 epithelial cells, 2+ bacteria. Patient denies dysuria, urinary frequency and urgency. She received a one-time dose of Keflex in the ER. Will not order antibiotics, given that she is asymptomatic and appears to have a contaminated sample, but will follow up on urine culture results. 10/01 -urine culture positive for Klebsiella pneumoniae. Patient is asymptomatic, and sample was contaminated with 10-20 epithelial cells. As patient is not in a high risk population, antibiotic treatment is not warranted. (3) Hypertension: 09/28 -continue home dose of losartan potassium, and monitor blood pressure. Send records to PCP, Dr. Tam, for coordination of care. (4) Hypothyroidism: 09/28 -continue home dose of levothyroxine 125 mcg daily. TSH on admission 0.765, within normal limits. (5) Type 2 diabetes mellitus: 09/28 -continue diabetic diet and metformin daily. Random glucose on admission 113, and hemoglobin A1c on 08/11/2018 was 6.7 (estimated average glucose 146). -Encourage good nutrition and regular exercise. (6) Dyslipidemia: 09/28 -most recent fasting lipid profile was 12/09/2017, all values within normal limits. Will order FLP for tomorrow for monitoring on an atypical antipsychotic. -Continue home dose of Lipitor. (7) Asthma: 09/28 -continue home dose of Singulair 10 mg at bedtime. (8) Morbid obesity with BMI of 50.0-59.9, adult: 09/28 -as above, continue education regarding good nutrition and the benefits of regular exercise. BMI is 53.8 (294 lbs), and weight has increased 13 pounds in the past 7 months. Risk Factors Assessment Male: No : Yes Do You Have Access To A Gun?: No Health Problems: Yes Mental Health Diagnoses: Yes Substance Use Disorders: No Previous Attempt: Yes Family History of Suicide: Yes Previous Psychiatric Hospitalization: Yes Hopelessness: Yes Smoker: No Protective Factors Assessment Rastafari Beliefs: Yes : No Responsible for Young Children: No Employed: No ([employer] on Mondays and Disability) Stable Relationships: Yes Supportive Family: Yes Good Rapport with Provider: Yes Interval History Identifying Information 47 yo female, well know to our hospital for schizoaffective disorder, depressed type, admitted voluntarily with severe depression, inability to function and command auditory hallucinations. Chief Complaint "I am having a hard time". Review of Systems Sleep Information Total Hours of Sleep: 7.5 Sleep Comments: pt on q-15 minute checks Meal Information Percent Meal Consumed - Breakfast: 100 Percent Meal Consumed - Lunch: 100 Percent Meal Consumed - Dinner: 90 Subjective Subjective Patient was seen & assessed and interval progress reviewed with Nursing and case management social worker. Staff report she is endorsing increased AH of her grandfather's voice and ongoing depression. She requested to be re-referred for a qa specialist, and met with her director of casework department Ramiro braga in the hospital. On my assessment, the patient reports she continues to feel depressed, and auditory hallucinations of her grandfather's voice have actually increased, and are more "insistent," tell her to commit suicide, and she does not feel safe leaving the hospital. She is willing for an increase in her clozapine to target the voices. She states she is trying to use the Klonopin sparingly, and to use coping skills first, and has gotten 1 dose daily for the past several days. She states weekends are the hardest time for her, as she does not have services on those days, and prefers to be discharged during the week. Physical Exam Psychiatric Orientation: alert, oriented x 3 and cooperative Apperance: appropriately dressed, appropriately groomed and appeared stated age Obese, walks with a cane, shuffling gait Eye Contact: + fair eye contact Speech: normal rate/rhythm/volume of speech Affect: + depressed affect, + constricted affect and mood congruent with affect Mood: + depressed mood Thought Process: goal directed thought process Thought Content: + cognitive distortions Suicidal Thoughts: + reports suicidal thoughts Homicidal Thoughts: denies homicidal thoughts Hallucinations: + auditory hallucinations; no visual hallucinations Cognition: recent memory grossly intact, remote memory grossly intact, attention grossly intact and language grossly intact Insight: + fair insight Judgement: + fair judgement Vital Signs (Past 24 Hours) Last Vital Signs Temp 36.3 C L 10/01/18 06:54 Pulse 94 H 10/01/18 06:55 Resp 16 10/01/18 06:54 BP 137/74 10/01/18 06:55 Pulse Ox 95 09/27/18 20:47 Results & Data Laboratory Results Laboratory Results - last 24 hr 09/30/18 10/01/18 08:28 08:08 POC Glucose 130 H 117 H Current Inpatient Medications Current Inpatient Medications: Current Inpatient Medications Acetaminophen (Tylenol) 650 mg PO Q4H PRN PRN Reason: Headache or Minor Fever Stop: 10/27/18 19:44 Last Admin: 09/30/18 07:01 Dose: 650 mg Documented by: Al Hydrox/Mg Hydrox/Simethicone (Maalox) 30 ml PO Q4H PRN PRN Reason: GI Upset Stop: 10/27/18 19:44 Atorvastatin Calcium (Lipitor) 20 mg PO HS [facility] Stop: 10/27/18 20:59 Last Admin: 09/30/18 21:12 Dose: 20 mg Documented by: Clonazepam (Klonopin) 0.5 mg PO BID@0900,1200 PRN PRN Reason: Anxiety Stop: 10/30/18 08:53 Last Admin: 09/30/18 13:14 Dose: 0.5 mg Documented by: Clozapine (Clozapine) 200 mg PO HS [facility] Stop: 10/27/18 20:59 Last Admin: 09/30/18 21:12 Dose: 200 mg Documented by: Clozapine (Clozaril) 25 mg PO BID@1200,2200 [facility] Stop: 10/28/18 11:59 Last Admin: 09/30/18 21:12 Dose: 25 mg Documented by: Desmopressin Acetate (Ddavp) 0.2 mg PO HS [facility] Stop: 10/27/18 20:59 Last Admin: 09/30/18 21:12 Dose: 0.2 mg Documented by: Escitalopram Oxalate (Lexapro) 20 mg PO DAILY [facility] Stop: 10/28/18 08:59 Last Admin: 09/30/18 08:25 Dose: 20 mg Documented by: Estradiol (Estrace) 1 mg PO QAM [facility] Stop: 10/28/18 08:59 Last Admin: 09/30/18 08:24 Dose: 1 mg Documented by: Hydroxyzine HCl (Vistaril) 25 mg PO Q4H PRN PRN Reason: Anxiety Stop: 10/27/18 19:44 Last Admin: 09/29/18 15:55 Dose: 25 mg Documented by: Hydroxyzine HCl (Vistaril) 50 mg PO HSZ PRN PRN Reason: Insomnia Stop: 10/27/18 19:44 Lamotrigine (Lamictal) 200 mg PO QAM [facility] Stop: 10/28/18 08:59 Last Admin: 09/30/18 08:25 Dose: 200 mg Documented by: Levothyroxine Sodium (Synthroid) 125 mcg PO DAILYBB [facility] Stop: 10/28/18 07:59 Last Admin: 09/30/18 08:24 Dose: 125 mcg Documented by: Losartan Potassium (Cozaar) 50 mg PO QAM [facility] Stop: 10/28/18 08:59 Last Admin: 09/30/18 08:24 Dose: 50 mg Documented by: Magnesium Hydroxide (Milk Of Magnesia) 30 ml PO DAILY PRN PRN Reason: Heartburn Stop: 10/27/18 19:44 Metformin HCl (Glucophage) 1,000 mg PO BIDM [facility] Stop: 10/29/18 17:44 Last Admin: 09/30/18 17:19 Dose: 1,000 mg Documented by: Montelukast Sodium (Singulair) 10 mg PO HS [facility] Stop: 10/29/18 21:59 Last Admin: 09/30/18 21:12 Dose: 10 mg Documented by: Sodium Chloride ([place] Nasal) 1 - 2 sprays NA PRN PRN PRN Reason: Nasal Dryness/Congestion Stop: 10/27/18 19:44 Trazodone HCl (Desyrel) 100 mg PO HS [facility] Stop: 10/27/18 20:59 Last Admin: 09/30/18 21:12 Dose: 100 mg Documented by: Vitamin D (Vitamin D3) 1,000 units PO DAILY [facility] Stop: 10/28/18 08:59 Last Admin: 09/30/18 08:25 Dose: 1,000 units Documented by: Post Discharge Appointments Primary Care Physician Name Of Family Doctor: Dr. Niles Tam [facility] Primary Care Provider Appointment Comment: [id number], [place] [address] Psychiatrist Name of Psychiatrist: Dr Urbina [facility] Psychiatrist's Date of Appointment with Psychiatrist: 10/06/18 Time of Appointment with Psychiatrist: 3:00 p.m. Psychiatric Appointment Comment: [address] [facility] [place], [place] Therapist Name of Therapist: Lamar Miller [facility] Therapist's Date of Therapist Appointment: 10/02/18 Therapy Appointment Comment: [address] [facility] [place], [place] Hand Carver Name of Hand Carver: NOREEN Thomason Phone Number for Hand Carver: [phone] Date of Appointment with Hand Carver: 10/07/18 Time of Appointment with Hand Carver: 2:30 p.m. Partial or Psych Rehab Name of Partial or Psych Rehab: [facility] Phone Number of Partial or Psych Rehab: cell: [phone] Partial or Psych Rehab Appointment Comment: call to notify of dc & to schedule Contact Information Discharge Discharge Address: [address] [place] [address] CPT Code CPT Code 02581
[2018-10-01] MEDS: ESTRADIOL 1 MG TAB PO SCH (08:39)
[2018-10-01] MEDS: LEVOTHYROXINE SODIUM 125 MCG TABLET PO SCH (08:39)
[2018-10-01] MEDS: LOSARTAN POTASSIUM 50 MG TAB PO SCH (08:39)
[2018-10-01] MEDS: METFORMIN HCL 500 MG TAB PO SCH ×2 (08:40→17:34)
[2018-10-01] MEDS: ESCITALOPRAM OXALATE 20 MG TAB PO SCH (08:41)
[2018-10-01] MEDS: CHOLECALCIFEROL 1,000 UNITS TAB PO SCH (08:41)
[2018-10-01] MEDS: lamoTRIgine 100 MG TAB PO SCH (08:41)
[2018-10-01] MEDS: cloZAPine 25 MG TAB PO SCH ×2 (12:47→21:20)
[2018-10-01] MEDS: TRAZODONE HCL 100 MG TAB PO SCH (21:20)
[2018-10-01] MEDS: DESMOPRESSIN ACETATE 0.1 MG TAB PO SCH (21:20)
[2018-10-01] MEDS: ATORVASTATIN 20 MG TAB PO SCH (21:20)
[2018-10-01] MEDS: cloZAPine 100 MG TAB PO SCH (21:20)
[2018-10-01] MEDS: MONTELUKAST SODIUM 10 MG TABLET PO SCH (21:21)
[2018-10-02] MEDS: LEVOTHYROXINE SODIUM 125 MCG TABLET PO SCH (08:01)
[2018-10-02] MEDS: LOSARTAN POTASSIUM 50 MG TAB PO SCH (08:01)
[2018-10-02] MEDS: ESTRADIOL 1 MG TAB PO SCH (08:01)
[2018-10-02] MEDS: METFORMIN HCL 500 MG TAB PO SCH ×2 (08:01→17:47)
[2018-10-02] MEDS: CHOLECALCIFEROL 1,000 UNITS TAB PO SCH (08:02)
[2018-10-02] MEDS: lamoTRIgine 100 MG TAB PO SCH (08:02)
[2018-10-02] MEDS: ESCITALOPRAM OXALATE 20 MG TAB PO SCH (08:02)
[2018-10-02] MEDS ORDERED: cloZAPine 25 MG TAB PO SCH (09:00)
--- NOTE | 2018-10-02 09:47 | Psychiatric Progress Note ---
Date of Service October 02, 2018 Impression / Recommendations Impression Mood improved today from a 2.8 to a 3.0, though admits to current episode of unexplained anxiety which is bothersome. She remains unable to contract for safety outside of the hospital setting. Admits to some improvement in auditory hallucinations today. Clozapine level is still pending, consider further titration of clozapine to target auditory hallucinations as indicated. Reports ongoing SI, but desire to utilize coping strategies. (1) Schizoaffective disorder, depressive type: 09/28 -continue home psychotropic medications, including clozapine 25 mg q. noon and 225 mg nightly, desmopressin 0.2 mg at bedtime, trazodone 100 mg at bedtime, lamotrigine 200 mg every morning, escitalopram 20 mg every morning, and clonazepam 0.5 mg twice daily as needed. -Check clozapine level and consider titration of clozapine to target auditory hallucinations and suicidality. She has been sleeping excessively recently, likely related to her depression, but we will need to balance the potential benefits of increasing her antipsychotic with the risk of worsening sedation, which could negatively impair functioning. -Coordinate care with outpatient therapist at [facility] (message sent), patient case manager, skills mobile psych rehab worker, and [facility]. -Monitoring on an atypical antipsychotic: Last fasting lipid profile was done 11/2017 and was normal. Will order FLP for tomorrow. Most recent hemoglobin A1c was July 2018 (6.7, estimated average glucose 146). -Continue weekly CBC with differential for monitoring of ANC; on admission was 4.83. 09/29 - Continue current meds and plan - Await clozapine level for dosage adjustment - Encourage exercise and structure 09/30 - Continue to encourage exercise and structure - Continue current meds - Await Clozapine level. 10/01 -Patient reports worsening auditory hallucinations and is agreeable to increasing clozapine by 25 mg (to 50 mg at noon and 225 mg at bedtime). Clozapine level is a send out, and results are pending, but she has been on higher doses in the past. 10/02 - Continue clozapine 50mg at noon and 225mg HS - hallucinations improved from yesterday; consider further titration as indicated - Still awaiting clozapine level (2) Cystitis: 09/28 -UA on admission was contaminated, cloudy, with trace blood, 2+ leukocyte esterase, greater than 30 WBCs, 10-20 epithelial cells, 2+ bacteria. Patient denies dysuria, urinary frequency and urgency. She received a one-time dose of Keflex in the ER. Will not order antibiotics, given that she is asymptomatic and appears to have a contaminated sample, but will follow up on urine culture results. 10/01 -urine culture positive for Klebsiella pneumoniae. Patient is asymptomatic, and sample was contaminated with 10-20 epithelial cells. As patient is not in a high risk population, antibiotic treatment is not warranted. (3) Hypertension: 09/28 -continue home dose of losartan potassium, and monitor blood pressure. Send records to PCP, Dr. Tam, for coordination of care. (4) Hypothyroidism: 09/28 -continue home dose of levothyroxine 125 mcg daily. TSH on admission 0.765, within normal limits. (5) Type 2 diabetes mellitus: 09/28 -continue diabetic diet and metformin daily. Random glucose on admission 113, and hemoglobin A1c on 08/11/2018 was 6.7 (estimated average glucose 146). -Encourage good nutrition and regular exercise. (6) Dyslipidemia: 09/28 -most recent fasting lipid profile was 12/09/2017, all values within normal limits. Will order FLP for tomorrow for monitoring on an atypical antipsychotic. -Continue home dose of Lipitor. (7) Asthma: 09/28 -continue home dose of Singulair 10 mg at bedtime. (8) Morbid obesity with BMI of 50.0-59.9, adult: 09/28 -as above, continue education regarding good nutrition and the benefits of regular exercise. BMI is 53.8 (294 lbs), and weight has increased 13 pounds in the past 7 months. Risk Factors Assessment Male: No : Yes Do You Have Access To A Gun?: No Health Problems: Yes Mental Health Diagnoses: Yes Substance Use Disorders: No Previous Attempt: Yes Family History of Suicide: Yes Previous Psychiatric Hospitalization: Yes Hopelessness: Yes Smoker: No Protective Factors Assessment Orthodoxy Beliefs: Yes : No Responsible for Young Children: No Employed: No ([employer]ILL[employer] on Mondays and Disability) Stable Relationships: Yes Supportive Family: Yes Good Rapport with Provider: Yes Interval History Identifying Information 47 yo female, well know to our hospital for schizoaffective disorder, depressed type, admitted voluntarily with severe depression, inability to function and command auditory hallucinations. Chief Complaint "I'm having a lot of anxiety. I'm sorry." Review of Systems Notes Constitutional: denied Cardiovascular: denied Respiratory: denied Gastrointestinal: denied Neurological: denied Psychiatric: denies symptoms other than stated above Total of at least 10 systems reviewed, pertinent positives as above and in HPI. Sleep Information Total Hours of Sleep: 7.25 Sleep Comments: pt on q-15 minute checks Meal Information Percent Meal Consumed - Breakfast: 100 Percent Meal Consumed - Lunch: 50 Percent Meal Consumed - Dinner: 100 Subjective Subjective Patient was seen & assessed and interval progress reviewed with Treatment Team. Staff report the patient has continued to display episodic anxiety on the unit, with little reported change in status. Clozapine level is still plending. Pt was seen today to assess progress since admission. Pt states she has just recently started experiencing some anxiety - "I tried to use my coping skills first, but it was too much. I don't think the Klonopin has kicked in yet." Pt is tearful during our encounter and at one point begins sobbing due to being "frustrated". Pt states she is upset that she is not getting better and states, "I miss my mom and dad." We discussed grief, having recently lost her father, and patient was able to recognize some sadness may be from this loss. She admits overall that her mood is a bit better today, rating it a "3", previous ratings for the past two days were 2.5 and 2.8. Pt does feels somewhat optimistic about this improvement. She states the voices "are still bothering me", but are "maybe a tad better." Pt was asked if there was anything we could do to assist with current anxiety, and patient accepted the offer of a sound machine to have in her room. Pt denies other needs at this time. Physical Exam Psychiatric Orientation: alert, oriented x 3 and cooperative Apperance: appropriately dressed, appropriately groomed and appeared stated age Eye Contact: good eye contact Motor Behavior: steady gait and station (ambulates with quad cane) and + psychomotor retardation Speech: normal rate/rhythm/volume of speech Affect: + depressed affect, + tearful affect, + blunted affect and mood congruent with affect Mood: + depressed mood ("a bit better today" and "still depressed") and + anxio us mood ("I'm having a lot of anxiety") Thought Process: goal directed thought process Thought Content: + cognitive distortions and reality based without delusions Suicidal Thoughts: denies suicidal plan; + reports suicidal thoughts Homicidal Thoughts: denies homicidal thoughts Hallucinations: + auditory hallucinations ("maybe a tad better"); no visual hallucinations Cognition: recent memory grossly intact, remote memory grossly intact, attention grossly intact and language grossly intact Estimated Intelligence: average estimated intelligence and consistent with education level Insight: + fair insight Judgement: + fair judgement Vital Signs (Past 24 Hours) Last Vital Signs Temp 36.6 C 10/02/18 06:00 Pulse 86 10/02/18 06:00 Resp 16 10/02/18 06:00 BP 139/86 10/02/18 06:00 Pulse Ox 95 09/27/18 20:47 Results & Data Laboratory Results Laboratory Results - last 24 hr 10/02/18 07:42 POC Glucose 113 H Current Inpatient Medications Current Inpatient Medications: Current Inpatient Medications Acetaminophen (Tylenol) 650 mg PO Q4H PRN PRN Reason: Headache or Minor Fever Stop: 10/27/18 19:44 Last Admin: 09/30/18 07:01 Dose: 650 mg Documented by: Al Hydrox/Mg Hydrox/Simethicone (Maalox) 30 ml PO Q4H PRN PRN Reason: GI Upset Stop: 10/27/18 19:44 Atorvastatin Calcium (Lipitor) 20 mg PO [facility] Stop: 10/27/18 20:59 Last Admin: 10/01/18 21:20 Dose: 20 mg Documented by: Clonazepam (Klonopin) 0.5 mg PO BID@0900,1200 PRN PRN Reason: Anxiety Stop: 10/30/18 08:53 Last Admin: 09/30/18 13:14 Dose: 0.5 mg Documented by: Clozapine (Clozapine) 200 mg PO [facility] Stop: 10/27/18 20:59 Last Admin: 10/01/18 21:20 Dose: 200 mg Documented by: Clozapine (Clozaril) 25 mg PO [facility] Stop: 10/31/18 21:59 Last Admin: 10/01/18 21:20 Dose: 25 mg Documented by: Clozapine (Clozaril) 50 mg PO Q24H [facility] Stop: 10/31/18 11:59 Last Admin: 10/01/18 12:47 Dose: 50 mg Documented by: Desmopressin Acetate (Ddavp) 0.2 mg PO [facility] Stop: 10/27/18 20:59 Last Admin: 10/01/18 21:20 Dose: 0.2 mg Documented by: Escitalopram Oxalate (Lexapro) 20 mg PO DAILY [facility] Stop: 10/28/18 08:59 Last Admin: 10/02/18 08:02 Dose: 20 mg Documented by: Estradiol (Estrace) 1 mg PO QAM [facility] Stop: 10/28/18 08:59 Last Admin: 10/02/18 08:01 Dose: 1 mg Documented by: Hydroxyzine HCl (Vistaril) 25 mg PO Q4H PRN PRN Reason: Anxiety Stop: 10/27/18 19:44 Last Admin: 10/01/18 17:38 Dose: 25 mg Documented by: Hydroxyzine HCl (Vistaril) 50 mg PO HSZ PRN PRN Reason: Insomnia Stop: 10/27/18 19:44 [facility]otrig[facility]al) [facility] Stop: 10/28/18 08:59 Last Admin: 10/02/18 08:02 Dose: 200 mg Documented by: Levothyroxine S[facility] ([facility]throid) [facility] Stop: 10/28/18 07:59 Last Admin: 10/02/18 08:01 Dose: 125 mcg Documented by: Losartan Potassium (Cozaar) [facility] Stop: 10/28/18 08:59 Last Admin: 10/02/18 08:01 Dose: 50 mg Documented by: Magnesium Hydroxide (Milk Of Magnesia) 30 ml PO DAILY PRN PRN Reason: Heartburn Stop: 10/27/18 19:44 Metformin HCl (Glucophage) 1,000 mg PO BIDM [facility] Stop: 10/29/18 17:44 Last Admin: 10/02/18 08:01 Dose: 1,000 mg Documented by: Montelukast Sodium (Singulair) 10 mg PO [facility] Stop: 10/29/18 21:59 Last Admin: 10/01/18 21:21 Dose: 10 mg Documented by: Sodium Chloride ([place] Nasal) 1 - 2 sprays NA PRN PRN PRN Reason: Nasal Dryness/Congestion Stop: 10/27/18 19:44 Trazodone HCl (Desyrel) 100 mg PO [facility] Stop: 10/27/18 20:59 Last Admin: 10/01/18 21:20 Dose: 100 mg Documented by: Vitamin D (Vitamin D3) 1,000 units PO DAILY [facility] Stop: 10/28/18 08:59 Last Admin: 10/02/18 08:02 Dose: 1,000 units Documented by: Post Discharge Appointments Primary Care Physician Name Of Family Doctor: Dr. Niles [place] [facility] [place] Appointment Comment: [address], [place] [address] Psychiatrist Name of Psychiatrist: Dr Urbina [facility] Psychiatrist's Date of Appointment with Psychiatrist: 10/06/18 Time of Appointment with Psychiatrist: 3:00 p.m. Psychiatric Appointment Comment: [address] [facility] [place] Therapist Name of Therapist: Lamar Miller [facility] Therapist's Date of Therapist Appointment: 10/02/18 Therapy Appointment Comment: [address] [facility] [place] Dredge Mate Name of Dredge Mate: NOREEN Thomason Phone Number for Dredge Mate: [phone] Date of Appointment with Dredge Mate: 10/07/18 Time of Appointment with Dredge Mate: 2:30 p.m. Partial or Psych Rehab Name of Partial or Psych Rehab: Mario Alberto [facility] Phone Number of Partial or Psych Rehab: cell: [phone] Partial or Psych Rehab Appointment Comment: call to notify of dc & to schedule Contact Information Discharge Discharge Address: [address] [place] [address],[place] [address] CPT Code CPT Code 24554
[2018-10-02] MEDS: cloZAPine 25 MG TAB PO SCH ×2 (12:44→21:11)
[2018-10-02] MEDS: clonazePAM 0.5 MG TAB PO PRN (12:44)
[2018-10-02 20:58] LABS: Clozapine 818 mcg/L; Norclozapine 328 mcg/L (25-400)
[2018-10-02] MEDS: cloZAPine 100 MG TAB PO SCH (21:11)
[2018-10-02] MEDS: MONTELUKAST SODIUM 10 MG TABLET PO SCH (21:11)
[2018-10-02] MEDS: ATORVASTATIN 20 MG TAB PO SCH (21:11)
[2018-10-02] MEDS: DESMOPRESSIN ACETATE 0.1 MG TAB PO SCH (21:11)
[2018-10-02] MEDS: TRAZODONE HCL 100 MG TAB PO SCH (21:11)
[2018-10-03 07:41] LABS: Hematocrit (blood only) 35.1 % (37-47); Hemoglobin 11.6 g/dL (12.0-16.0); Immature Granulocytes # (auto) 0.02 K/uL (0.00-0.02); Immature Granulocytes % (auto) 0.2 %; Lymphocytes # (auto) 2.12 K/uL (1.2-3.4); Lymphocytes % (auto) 23.7 %; Mean Corpuscular Volume 77.3 fL (80-100); Mean Platelet Volume 8.6 fL (7.4-10.4); Monocytes % (auto) 5.6 %; Neutrophils # (auto) 6.32 K/uL (1.4-6.5); Neutrophils % (auto) 70.5 %; Platelet Count 191 K/uL (130-400); RDW Coefficient of Variation 15.8 % (11.5-14.5); RDW Standard Deviation 44.2 fL (36.4-46.3); Red Blood Count 4.54 M/uL (4.2-5.4); White Blood Count 8.96 K/uL (4.8-10.8)
[2018-10-03] MEDS: ESTRADIOL 1 MG TAB PO SCH (08:32)
[2018-10-03] MEDS: LEVOTHYROXINE SODIUM 125 MCG TABLET PO SCH (08:32)
[2018-10-03] MEDS: LOSARTAN POTASSIUM 50 MG TAB PO SCH (08:32)
[2018-10-03] MEDS: METFORMIN HCL 500 MG TAB PO SCH ×2 (08:32→17:44)
[2018-10-03] MEDS: CHOLECALCIFEROL 1,000 UNITS TAB PO SCH (08:33)
[2018-10-03] MEDS: ESCITALOPRAM OXALATE 20 MG TAB PO SCH (08:33)
[2018-10-03] MEDS: lamoTRIgine 100 MG TAB PO SCH (08:33)
--- NOTE | 2018-10-03 12:49 | Psychiatric Progress Note ---
Date of Service October 03, 2018 Impression / Recommendations Impression Leisa appears improved from my last contacts with her during recent hospitalizations. Clozaril level 818. She was offered support around her feelings of panic. She in benefiting from quieter milieu. (1) Schizoaffective disorder, depressive type: 09/28 -continue home psychotropic medications, including clozapine 25 mg q. noon and 225 mg nightly, desmopressin 0.2 mg at bedtime, trazodone 100 mg at bedtime, lamotrigine 200 mg every morning, escitalopram 20 mg every morning, and clonazepam 0.5 mg twice daily as needed. -Check clozapine level and consider titration of clozapine to target auditory hallucinations and suicidality. She has been sleeping excessively recently, likely related to her depression, but we will need to balance the potential benefits of increasing her antipsychotic with the risk of worsening sedation, which could negatively impair functioning. -[facility]), family service caseworker, skills [facility] psych rehab worker, and [facility]. -Monitoring on an atypical antipsychotic: Last fasting lipid profile was done 11/2017 and was normal. Will order FLP for tomorrow. Most recent hemoglobin A1c was July 2018 (6.7, estimated average glucose 146). -Continue weekly CBC with differential for monitoring of ANC; on admission was 4.83. 09/29 - Continue current meds and plan - Await clozapine level for dosage adjustment - Encourage exercise and structure 09/30 - Continue to encourage exercise and structure - Continue current meds - Await Clozapine level. 10/01 -Patient reports worsening auditory hallucinations and is agreeable to increasing clozapine by 25 mg (to 50 mg at noon and 225 mg at bedtime). Clozapine level is a send out, and results are pending, but she has been on higher doses in the past. 10/02 - Continue clozapine 50mg at noon and 225mg HS - hallucinations improved from yesterday; consider further titration as indicated - Still awaiting clozapine level (2) Cystitis: 09/28 -UA on admission was contaminated, cloudy, with trace blood, 2+ leukocyte esterase, greater than 30 WBCs, 10-20 epithelial cells, 2+ bacteria. Patient denies dysuria, urinary frequency and urgency. She received a one-time dose of Keflex in the ER. Will not order antibiotics, given that she is asymptomatic and appears to have a contaminated sample, but will follow up on urine culture results. 10/01 -urine culture positive for Klebsiella pneumoniae. Patient is asymptomatic, and sample was contaminated with 10-20 epithelial cells. As patient is not in a high risk population, antibiotic treatment is not warranted. (3) Hypertension: 09/28 -continue home dose of losartan potassium, and monitor blood pressure. Send records to PCP, Dr. Tam, for coordination of care. (4) Hypothyroidism: 09/28 -continue home dose of levothyroxine 125 mcg daily. TSH on admission 0.765, within normal limits. (5) Type 2 diabetes mellitus: 09/28 -continue diabetic diet and metformin daily. Random glucose on admission 113, and hemoglobin A1c on 08/11/2018 was 6.7 (estimated average glucose 146). -Encourage good nutrition and regular exercise. (6) Dyslipidemia: 09/28 -most recent fasting lipid profile was 12/09/2017, all values within normal limits. Will order FLP for tomorrow for monitoring on an atypical antipsychotic. -Continue home dose of Lipitor. (7) Asthma: 09/28 -continue home dose of Singulair 10 mg at bedtime. (8) Morbid obesity with BMI of 50.0-59.9, adult: 09/28 -as above, continue education regarding good nutrition and the benefits of regular exercise. BMI is 53.8 (294 lbs), and weight has increased 13 pounds in the past 7 months. Risk Factors Assessment Male: No : Yes Do You Have Access To A Gun?: No Health Problems: Yes Mental Health Diagnoses: Yes Substance Use Disorders: No Previous Attempt: Yes Family History of Suicide: Yes Previous Psychiatric Hospitalization: Yes Hopelessness: Yes Smoker: No Protective Factors Assessment Latter-Day Beliefs: Yes : No Responsible for Young Children: No Employed: No ([employer]ILL[employer] on Mondays and Disability) Stable Relationships: Yes Supportive Family: Yes Good Rapport with Provider: Yes Interval History Identifying Information 47 yo female, well know to our hospital for schizoaffective disorder, depressed type, admitted voluntarily with severe depression, inability to function and command auditory hallucinations. Chief Complaint "I think I get panic attacks". Review of Systems Sleep Information Total Hours of Sleep: 7.75 Sleep Comments: pt on q-15 minute checks Meal Information Percent Meal Consumed - Breakfast: 90 Percent Meal Consumed - Lunch: 50 Percent Meal Consumed - Dinner: 100 Subjective Subjective Patient was seen & assessed and interval progress reviewed with Nursing. no issues overnight, tolerating increase in Clozaril. Patient reports that she is having a harder time getting out to the store, even with support of friends. She also feels sick when she has to ride the elevator to her therapists' office. She was unsure what this means. Weekly CBC reviewed, stable. Denies excessive sedation and feels sialorrhea is manageable. Physical Exam Psychiatric Orientation: alert, oriented x 3 and cooperative Apperance: appropriately dressed and appropriately groomed Eye Contact: + fair eye contact Motor Behavior: steady gait and station (ambulates with quad cane) Speech: normal rate/rhythm/volume of speech Affect: mood congruent with affect Mood: + anxious mood ("I'm having a lot of anxiety") Thought Process: goal directed thought process Thought Content: + cognitive distortions and reality based without delusions Suicidal Thoughts: denies suicidal plan; + reports suicidal thoughts Homicidal Thoughts: denies homicidal thoughts Hallucinations: + auditory hallucinations ("pretty direct", grandfather's voice, worse if "alot going on on unit"); no visual hallucinations Cognition: recent memory grossly intact, remote memory grossly intact, attention grossly intact and language grossly intact Estimated Intelligence: average estimated intelligence and consistent with education level Insight: + limited insight, + impaired insight and + fair insight Judgement: + limited judgement, + impaired judgement and + fair judgement Vital Signs (Past 24 Hours) Last Vital Signs Temp 36.4 C L 10/03/18 06:00 Pulse 90 10/03/18 06:36 Resp 16 10/03/18 06:00 BP 154/96 H 10/03/18 06:36 Pulse Ox 95 09/27/18 20:47 Results & Data Laboratory Results Laboratory Results - last 24 hr 09/28/18 10/03/18 10/03/18 20:16 07:29 08:13 WBC 8.96 RBC 4.54 Hgb 11.6 L Hct 35.1 L MCV 77.3 L MCH 25.6 MCHC 33.0 RDW Std Deviation 44.2 RDW Coeff of Bret 15.8 H Plt Count 191 MPV 8.6 Immature Gran % (Auto) 0.2 Neut % (Auto) 70.5 Lymph % (Auto) 23.7 [place] % (Auto) 5.6 Eos % (Auto) 0.0 Baso % (Auto) 0.0 Immature Gran # (Auto) 0.02 Neut # (Auto) 6.32 Lymph # (Auto) 2.12 [place] # (Auto) 0.50 Eos # (Auto) 0.00 Baso # (Auto) 0.00 POC Glucose 116 H Clozapine 818 Norclozapine 328 Current Inpatient Medications Current Inpatient Medications: Current Inpatient Medications Acetaminophen (Tylenol) 650 mg PO Q4H PRN PRN Reason: Headache or Minor Fever Stop: 10/27/18 19:44 Last Admin: 09/30/18 07:01 Dose: 650 mg Documented by: Al Hydrox/Mg Hydrox/Simethicone (Maalox) 30 ml PO Q4H PRN PRN Reason: GI Upset Stop: 10/27/18 19:44 Atorvastatin Calcium (Lipitor) 20 mg PO [facility] Stop: 10/27/18 20:59 Last Admin: 10/02/18 21:11 Dose: 20 mg Documented by: Clonazepam (Klonopin) 0.5 mg PO BID@0900,1200 PRN PRN Reason: Anxiety Stop: 10/30/18 08:53 Last Admin: 10/02/18 12:44 Dose: 0.5 mg Documented by: Clozapine (Clozapine) 200 mg PO [facility] Stop: 10/27/18 20:59 Last Admin: 10/02/18 21:11 Dose: 200 mg Documented by: Clozapine (Clozaril) 25 mg PO [facility] Stop: 10/31/18 21:59 Last Admin: 10/02/18 21:11 Dose: 25 mg Documented by: Clozapine (Clozaril) 50 mg PO Q24H [facility] Stop: 10/31/18 11:59 Last Admin: 10/02/18 12:44 Dose: 50 mg Documented by: Desmopressin Acetate (Ddavp) 0.2 mg PO [facility] Stop: 10/27/18 20:59 Last Admin: 10/02/18 21:11 Dose: 0.2 mg Documented by: Escitalopram Oxalate (Lexapro) 20 mg PO DAILY [facility] Stop: 10/28/18 08:59 Last Admin: 10/03/18 08:33 Dose: 20 mg Documented by: Estradiol (Estrace) [facility] Stop: 10/28/18 08:59 Last Admin: 10/03/18 08:32 Dose: 1 mg Documented by: Hydroxyzine HCl (Vistaril) 25 mg PO Q4H PRN PRN Reason: Anxiety Stop: 10/27/18 19:44 Last Admin: 10/01/18 17:38 Dose: 25 mg Documented by: Hydroxyzine HCl (Vistaril) 50 mg PO HSZ PRN PRN Reason: Insomnia Stop: 10/27/18 19:44 Lamotrigine (Lamictal) 200 mg PO QAM [facility] Stop: 10/28/18 08:59 Last Admin: 10/03/18 08:33 Dose: 200 mg Documented by: Levothyroxine Sodium (Synthroid) 125 mcg PO DAILYBB [facility] Stop: 10/28/18 07:59 Last Admin: 10/03/18 08:32 Dose: 125 mcg Documented by: Losartan Potassium (Cozaar) 50 mg PO QAM [facility] Stop: 10/28/18 08:59 Last Admin: 10/03/18 08:32 Dose: 50 mg Documented by: Magnesium Hydroxide (Milk Of Magnesia) 30 ml PO DAILY PRN PRN Reason: Heartburn Stop: 10/27/18 19:44 Metformin HCl (Glucophage) 1,000 mg PO BIDM [facility] Stop: 10/29/18 17:44 Last Admin: 10/03/18 08:32 Dose: 1,000 mg Documented by: Montelukast Sodium (Singulair) 10 mg PO HS [facility] Stop: 10/29/18 21:59 Last Admin: 10/02/18 21:11 Dose: 10 mg Documented by: Sodium Chloride ([place] Nasal) 1 - 2 sprays NA PRN PRN PRN Reason: Nasal Dryness/Congestion Stop: 10/27/18 19:44 Trazodone HCl (Desyrel) 100 mg PO HS [facility] Stop: 10/27/18 20:59 Last Admin: 10/02/18 21:11 Dose: 100 mg Documented by: Vitamin D (Vitamin D3) 1,000 units PO DAILY [facility] Stop: 10/28/18 08:59 Last Admin: 10/03/18 08:33 Dose: 1,000 units Documented by: Post Discharge Appointments Primary Care Physician Name Of Family Doctor: Dr. Niles Tam [facility] Primary Care Provider Appointment Comment: [address], [place] [address] Psychiatrist Name of Psychiatrist: Dr Urbina [facility] Psychiatrist's Date of Appointment with Psychiatrist: 10/06/18 Time of Appointment with Psychiatrist: 3:00 p.m. Psychiatric Appointment Comment: [address] [facility] [place] Therapist Name of Therapist: Lamar Miller [facility] Therapist's Date of Therapist Appointment: 10/02/18 Therapy Appointment Comment: [address] [facility] [place] Instrument Adjuster Name of Instrument Adjuster: NOREEN Thomason Phone Number for Instrument Adjuster: [phone] Date of Appointment with Instrument Adjuster: 10/07/18 Time of Appointment with Instrument Adjuster: 2:30 p.m. Partial or Psych Rehab Name of Partial or Psych Rehab: Mario Alberto [facility] Phone Number of Partial or Psych Rehab: cell: [phone] Partial or Psych Rehab Appointment Comment: call to notify of dc & to schedule Contact Information Discharge Discharge Address: [address] [place] [address],[place] [address] CPT Code CPT Code 30318
[2018-10-03] MEDS: clonazePAM 0.5 MG TAB PO PRN (12:50)
[2018-10-03] MEDS: cloZAPine 25 MG TAB PO SCH ×2 (12:50→21:48)
[2018-10-03] MEDS: DESMOPRESSIN ACETATE 0.1 MG TAB PO SCH (21:48)
[2018-10-03] MEDS: cloZAPine 100 MG TAB PO SCH (21:48)
[2018-10-03] MEDS: ATORVASTATIN 20 MG TAB PO SCH (21:49)
[2018-10-03] MEDS: MONTELUKAST SODIUM 10 MG TABLET PO SCH (21:49)
[2018-10-03] MEDS: TRAZODONE HCL 100 MG TAB PO SCH (21:49)
[2018-10-04] MEDS: ESCITALOPRAM OXALATE 20 MG TAB PO SCH (07:51)
[2018-10-04] MEDS: lamoTRIgine 100 MG TAB PO SCH (07:51)
[2018-10-04] MEDS: CHOLECALCIFEROL 1,000 UNITS TAB PO SCH (07:51)
[2018-10-04] MEDS: METFORMIN HCL 500 MG TAB PO SCH ×2 (07:52→17:36)
[2018-10-04] MEDS: ESTRADIOL 1 MG TAB PO SCH (07:52)
[2018-10-04] MEDS: LEVOTHYROXINE SODIUM 125 MCG TABLET PO SCH (07:52)
[2018-10-04] MEDS: LOSARTAN POTASSIUM 50 MG TAB PO SCH (07:52)
--- NOTE | 2018-10-04 10:16 | Psychiatric Progress Note ---
Date of Service October 04, 2018 Impression / Recommendations Impression Leisa appears improved from my last contacts with her during recent hospitalizations. Clozaril level 818. She was offered support around her feelings of panic. She in benefiting from quieter milieu. (1) Schizoaffective disorder, depressive type: 09/28 -continue home psychotropic medications, including clozapine 25 mg q. noon and 225 mg nightly, desmopressin 0.2 mg at bedtime, trazodone 100 mg at bedtime, lamotrigine 200 mg every morning, escitalopram 20 mg every morning, and clonazepam 0.5 mg twice daily as needed. -Check clozapine level and consider titration of clozapine to target auditory hallucinations and suicidality. She has been sleeping excessively recently, likely related to her depression, but we will need to balance the potential benefits of increasing her antipsychotic with the risk of worsening sedation, which could negatively impair functioning. -Coordinate care with outpatient therapist at [facility] (message sent), bottle caser, [facility] psych rehab worker, and [facility]. -Monitoring on an atypical antipsychotic: Last fasting lipid profile was done 11/2017 and was normal. Will order FLP for tomorrow. Most recent hemoglobin A1c was July 2018 (6.7, estimated average glucose 146). -Continue weekly CBC with differential for monitoring of ANC; on admission was 4.83. 09/29 - Continue current meds and plan - Await clozapine level for dosage adjustment - Encourage exercise and structure 09/30 - Continue to encourage exercise and structure - Continue current meds - Await Clozapine level. 10/01 -Patient reports worsening auditory hallucinations and is agreeable to increasing clozapine by 25 mg (to 50 mg at noon and 225 mg at bedtime). Clozapine level is a send out, and results are pending, but she has been on higher doses in the past. 10/02 - Continue clozapine 50mg at noon and 225mg HS - hallucinations improved from yesterday; consider further titration as indicated - Still awaiting clozapine level (2) Cystitis: 09/28 -UA on admission was contaminated, cloudy, with trace blood, 2+ leukocyte esterase, greater than 30 WBCs, 10-20 epithelial cells, 2+ bacteria. Patient denies dysuria, urinary frequency and urgency. She received a one-time dose of Keflex in the ER. Will not order antibiotics, given that she is asymptomatic and appears to have a contaminated sample, but will follow up on urine culture results. 10/01 -urine culture positive for Klebsiella pneumoniae. Patient is asymptomatic, and sample was contaminated with 10-20 epithelial cells. As patient is not in a high risk population, antibiotic treatment is not warranted. (3) Hypertension: 09/28 -continue home dose of losartan potassium, and monitor blood pressure. Send records to PCP, Dr. Tam, for coordination of care. (4) Hypothyroidism: 09/28 -continue home dose of levothyroxine 125 mcg daily. TSH on admission 0.765, within normal limits. (5) Type 2 diabetes mellitus: 09/28 -continue diabetic diet and metformin daily. Random glucose on admission 113, and hemoglobin A1c on 08/11/2018 was 6.7 (estimated average glucose 146). -Encourage good nutrition and regular exercise. (6) Dyslipidemia: 09/28 -most recent fasting lipid profile was 12/09/2017, all values within normal limits. Will order FLP for tomorrow for monitoring on an atypical antipsychotic. -Continue home dose of Lipitor. (7) Asthma: 09/28 -continue home dose of Singulair 10 mg at bedtime. (8) Morbid obesity with BMI of 50.0-59.9, adult: 09/28 -as above, continue education regarding good nutrition and the benefits of regular exercise. BMI is 53.8 (294 lbs), and weight has increased 13 pounds in the past 7 months. Risk Factors Assessment Male: No : Yes Do You Have Access To A Gun?: No Health Problems: Yes Mental Health Diagnoses: Yes Substance Use Disorders: No Previous Attempt: Yes Family History of Suicide: Yes Previous Psychiatric Hospitalization: Yes Hopelessness: Yes Smoker: No Protective Factors Assessment Hindu Beliefs: Yes : No Responsible for Young Children: No Employed: No ([employer] on Mondays and Disability) Stable Relationships: Yes Supportive Family: Yes Good Rapport with Provider: Yes Interval History Identifying Information 47 yo female, well know to our hospital for schizoaffective disorder, depressed type, admitted voluntarily with severe depression, inability to function and command auditory hallucinations. Chief Complaint "I was a 4 because I had visitors". Review of Systems Sleep Information Total Hours of Sleep: 7.5 Sleep Comments: pt on q-15 minute checks Meal Information Percent Meal Consumed - Breakfast: 100 Percent Meal Consumed - Lunch: 100 Percent Meal Consumed - Dinner: 100 Subjective Subjective Patient was seen & assessed and interval progress reviewed with Nursing and social worker clinical. mood improved last night, more hopeful, fewer nguyen. Did receive prn Klonopin for anxiety. She continues to report fear of getting stuck in an elevator and worry to leave the house for fear of having panic attack. Physical Exam Psychiatric Orientation: alert, oriented x 3 and cooperative Apperance: appropriately dressed and appropriately groomed Eye Contact: + fair eye contact Motor Behavior: steady gait and station (ambulates with quad cane) Speech: normal rate/rhythm/volume of speech Affect: + constricted affect Mood: + anxious mood ("I'm having a lot of anxiety") Thought Process: goal directed thought process Thought Content: reality based without delusions Suicidal Thoughts: denies suicidal plan Homicidal Thoughts: denies homicidal thoughts Hallucinations: + auditory hallucinations; no visual hallucinations Cognition: recent memory grossly intact, remote memory grossly intact, attention grossly intact and language grossly intact Estimated Intelligence: consistent with education level Insight: + limited insight Judgement: + limited judgement Vital Signs (Past 24 Hours) Last Vital Signs Temp 36.6 C 10/04/18 06:00 Pulse 97 H 10/04/18 06:39 Resp 14 10/04/18 06:00 BP 141/83 H 10/04/18 06:39 Pulse Ox 95 09/27/18 20:47 Results & Data Laboratory Results Laboratory Results - last 24 hr 10/04/18 07:47 POC Glucose 111 H Current Inpatient Medications Current Inpatient Medications: Current Inpatient Medications Acetaminophen (Tylenol) 650 mg PO Q4H PRN PRN Reason: Headache or Minor Fever Stop: 10/27/18 19:44 Last Admin: 09/30/18 07:01 Dose: 650 mg Documented by: Al Hydrox/Mg Hydrox/Simethicone (Maalox) 30 ml PO Q4H PRN PRN Reason: GI Upset Stop: 10/27/18 19:44 Atorvastatin Calcium (Lipitor) 20 mg PO HS JOSE Stop: 10/27/18 20:59 Last Admin: 10/03/18 21:49 Dose: 20 mg Documented by: Clonazepam (Klonopin) 0.5 mg PO BID@0900,1200 PRN PRN Reason: Anxiety Stop: 10/30/18 08:53 Last Admin: 10/03/18 12:50 Dose: 0.5 mg Documented by: Clozapine (Clozapine) 200 mg PO [facility] Stop: 10/27/18 20:59 Last Admin: 10/03/18 21:48 Dose: 200 mg Documented by: Clozapine (Clozaril) 25 mg PO HS [facility] Stop: 10/31/18 21:59 Last Admin: 10/03/18 21:48 Dose: 25 mg Documented by: Clozapine (Clozaril) 50 mg PO Q24H [facility] Stop: 10/31/18 11:59 Last Admin: 10/03/18 12:50 Dose: 50 mg Documented by: Desmopressin Acetate (Ddavp) 0.2 mg PO [facility] Stop: 10/27/18 20:59 Last Admin: 10/03/18 21:48 Dose: 0.2 mg Documented by: Escitalopram Oxalate (Lexapro) 20 mg PO DAILY [facility] Stop: 10/28/18 08:59 Last Admin: 10/04/18 07:51 Dose: 20 mg Documented by: Estradiol (Estrace) 1 mg PO [facility] Stop: 10/28/18 08:59 Last Admin: 10/04/18 07:52 Dose: 1 mg Documented by: Hydroxyzine HCl (Vistaril) 25 mg PO Q4H PRN PRN Reason: Anxiety Stop: 10/27/18 19:44 Last Admin: 10/01/18 17:38 Dose: 25 mg Documented by: Hydroxyzine HCl (Vistaril) 50 mg PO HSZ PRN PRN Reason: Insomnia Stop: 10/27/18 19:44 Lamotrigine (Lamictal) 200 mg PO [facility] Stop: 10/28/18 08:59 Last Admin: 10/04/18 07:51 Dose: 200 mg Documented by: Levothyroxine Sodium (Synthroid) 125 mcg PO DAILYBB [facility] Stop: 10/28/18 07:59 Last Admin: 10/04/18 07:52 Dose: 125 mcg Documented by: Losartan Potassium [facility]ar) [facility] Stop: 10/28/18 08:59 Last Admin: 10/04/18 07:52 Dose: 50 mg Documented by: Magnesium Hydroxide (Milk Of Magnesia) 30 ml PO DAILY PRN PRN Reason: Heartburn Stop: 10/27/18 19:44 Metformin HCl (Glucophage) 1,000 mg PO BIDM JOSE Stop: 10/29/18 17:44 Last Admin: 10/04/18 07:52 Dose: 1,000 mg Documented by: Montelukast Sodium (Singulair) 10 mg PO HS JOSE Stop: 10/29/18 21:59 Last Admin: 10/03/18 21:49 Dose: 10 mg Documented by: Sodium Chloride (Banner Nasal) 1 - 2 sprays NA PRN PRN PRN Reason: Nasal Dryness/Congestion Stop: 10/27/18 19:44 Trazodone HCl (Desyrel) 100 mg PO HS JOSE Stop: 10/27/18 20:59 Last Admin: 10/03/18 21:49 Dose: 100 mg Documented by: Vitamin D (Vitamin D3) 1,000 units PO DAILY JO[facility] Stop: 10/28/18 08:59 Last Admin: 10/04/18 07:51 Dose: 1,000 units Documented by: Post Discharge Appointments Primary Care Physician Name Of Family Doctor: Dr. Niles Tam [facility] Primary Care Provider Appointment Comment: [id number], [place] [address] Psychiatrist Name of Psychiatrist: Dr Urbina [facility] Psychiatrist's Date of Appointment with Psychiatrist: 10/06/18 Time of Appointment with Psychiatrist: 3:00 p.m. Psychiatric Appointment Comment: [address] [facility], [place] Therapist Name of Therapist: Lamar Miller [facility] Therapist's Date of Therapist Appointment: 10/02/18 Therapy Appointment Comment: [address] [place], [place] [facility] [employer] [facility] Name of [facility] [employer] [facility]: NOREEN Thomasno Phone Number for [facility] [employer] [facility]: [phone] Date of Appointment with [facility] [employer] [facility]: 10/07/18 Time of Appointment with [facility] [employer] [facility] [facility]: 2:30 p.m. Partial or Psych Rehab Name of Partial or Psych Rehab: [facility] Phone Number of Partial or Psych Rehab: cell: [phone] Partial or Psych Rehab Appointment Comment: call to notify of dc & to schedule Contact Information Discharge Discharge Address: [address] [place], [place] [address] CPT Code CPT Code 62464
[2018-10-04] MEDS: cloZAPine 25 MG TAB PO SCH ×2 (12:39→21:37)
[2018-10-04] MEDS: clonazePAM 0.5 MG TAB PO PRN (12:39)
[2018-10-04] MEDS: cloZAPine 100 MG TAB PO SCH (21:37)
[2018-10-04] MEDS: DESMOPRESSIN ACETATE 0.1 MG TAB PO SCH (21:37)
[2018-10-04] MEDS: MONTELUKAST SODIUM 10 MG TABLET PO SCH (21:38)
[2018-10-04] MEDS: ATORVASTATIN 20 MG TAB PO SCH (21:38)
[2018-10-04] MEDS: TRAZODONE HCL 100 MG TAB PO SCH (21:38)
[2018-10-05] MEDS: LEVOTHYROXINE SODIUM 125 MCG TABLET PO SCH (08:14)
--- NOTE | 2018-10-05 08:53 | Discharge Summary ---
Date of Service October 05, 2018 History of Present Illness Patient is well-known to me from multiple previous hospitalizations and outpatient treatment at [facility]. She was last hospitalized on our unit in March 2018, and I have been seeing her in the outpatient clinic since June 2018. She has been seen more frequently recently as she decompensated after her father at the beginning of August. Her psychotropic medications have been stable for months, other than her clonazepam, which was being slowly tapered, until her father's illness and , at which point her dose was increased slightly. She lives alone but has numerous outpatient supports, including a outpatient case manager, mobile skills worker, therapist, sabianist friends, and attends [employer]. I last saw her 09/22/2018, and she was continued on her home medications (clozapine, escitalopram, lamotrigine, desmopressin, trazodone, and clonazepam 0.5 mg twice daily). She presented to the ER last evening, reporting worsening depression, tearfulness, poor functioning, and suicidal thoughts. She endorsed command hallucinations, hearing her grandfather's voice telling her to hurt herself. She endorsed a plan to overdose on clonazepam, but denied having hurt herself prior to admission. She requested voluntary hospitalization. On my assessment, the patient reports that mood has been depressed since her father at the beginning of August, has worsened over the past 1-2 weeks, she continues to feel "very depressed," is sleeping excessively (all day and all night), not engaging in her usual activities ([employer], sabianist, etc), and is hearing her grandfather's voice telling her to "kill myself, take an overdose." She admits to thoughts to overdose on her Klonopin, but denies acting on those thoughts, stating her sabianist friends and supports are protective, "they care about me." She felt too depressed to go to any of her activities in the past couple of weeks. She is taking her medications as prescribed, and is taking clonazepam 0.5mg bid in the morning and at noon. She is eating and appetite is normal. Energy and motivation are low. She is sometimes able to distract herself from the voices by "listening to the TV and radio at the same time," but they have been more intrusive over the past few days that she did not feel safe at home. She has not been functioning, is not attending her regular weekly activities (is supposed to work at [employer] on Friday, was planning to return to [facility] 2-3 days a week but has not been going, has not Bible study once a week, and meets with her outpatient case manager, therapist, and mobile skills worker weekly). She reports feeling frustrated that she is so depressed, stating "I hate being depressed," and "I miss my parents." Physical Exam Psychiatric Orientation: alert, oriented x 3 and cooperative Apperance: appropriately dressed, appropriately groomed and appeared stated age Eye Contact: good eye contact Motor Behavior: no abnormal motor movements Waddling gait, walks with a cane. Speech is normal volume and tone, slightly rapid. Affect: euthymic affect and + anxious affect Mood: + anxious mood "Not as depressed, better." Thought Process: goal directed thought process Thought Content: reality based without delusions Suicidal Thoughts: denies suicidal thoughts Homicidal Thoughts: denies homicidal thoughts Hallucinations: + auditory hallucinations (Continues to have intermittent auditory hallucinations of voices, but significantly improved from admission.) Cognition: recent memory grossly intact, remote memory grossly intact, attention grossly intact and language grossly intact Estimated Intelligence: average estimated intelligence Insight: + fair insight Judgement: + fair judgement Vital Signs (Past 24 Hours) Last Vital Signs Temp 36.4 C L 10/05/18 06:50 Pulse 99 H 10/05/18 06:51 Resp 18 10/05/18 06:50 BP 136/82 10/05/18 06:51 Pulse Ox 95 09/27/18 20:47 Principal Diagnosis Schizoaffective disorder, depressed type. Anxiety disorder NOS (symptoms of PETROS and panic). Psychiatric Data Patient was hospitalized on our unit for 8 days. A clozapine level was checked and was 818, and her clozapine dose was increased by 25 mg daily to target auditory hallucinations. She was continued on clonazepam 0.5 mg twice daily as needed anxiety, which she used approximately once daily while in the hospital. She was encouraged to use behavioral techniques for managing anxiety prior to requesting the benzodiazepine. She was cooperative and engaged in treatment, attended and participated in groups and therapy, and socialized with staff and peers. She processed grief over her parents' deaths, spoke with her supports, including her brother and her outpatient outpatient case manager. She requested to be re- referred for a strategic communications specialist to increase her supports in the community. Her mood and auditory hallucinations improved, discharge at the beginning of the week so that she could resume her numerous outpatient services and supports. Day of Discharge Assessment Patient reports mood is "fairly good, not as depressed, and the voices are not as bad." She continues to have intermittent auditory hallucinations of her grandfather's voice, but says "it is not as demanding, not as loud," and she feels able to use her coping skills to manage the voices. She denies thoughts of harming herself or anyone else, and feels safe leaving the hospital. She is able to review her discharge safety plan, which is extensive. She denies side effects to medications. We reviewed that she has been taking the clonazepam approximately once daily here in the hospital, with the exception of 1 day where she did not take it at all. Discussed the interaction between clonazepam and clozapine, and the plan to continue tapering off the clonazepam. Discussed using a maximum of 0.5 mg clonazepam daily, and that she could either take this in one dose, or cut the pill in half and take 0.25 mg twice daily as needed. Instructions were written out for her regarding this medication and the plan to taper off of it. She is able to review her appointments and plans for the next week, feels safe going home, and is requesting to return to work at [employer] 1 week from today. Transition of Care Transition Of Care Record: was reviewed with the patient Advance Directives Advance Directives Information Provided: Yes Advance Directives: Yes Mental Health Advance Directive: No Advance Directives on File: No Living Will: Yes Power of Program Support Specialist: Yes Power of Program Support Specialist Name: Shon Cross Advance Directives Reason:: Declines as Mental Health Visit. Risk Factors Assessment Risk factors were mitigated by admission to the inpatient unit, adjusting medications to target auditory hallucinations, working on healthy coping skills and a discharge safety plan, working on behavioral techniques for managing anxiety, involving the patient in groups and therapy, involving her outpatient supports, referring her for additional outpatient supports, coordinating care with her outpatient providers, and processing her recent loss and grief. She has demonstrated improvement in mood and auditory hallucinations, is denying thoughts of harming herself or anyone else, states she feels safe outside the hospital, and is performing ADLs independently. She is eating and sleeping well, and takes medications as prescribed and without difficulty. She is requesting discharge, and is no longer at acute risk of harm to herself, so can be managed as an outpatient at this time. She does not have risk factors for harm to others. Male: No : Yes Do You Have Access To A Gun?: No Health Problems: Yes Mental Health Diagnoses: Yes Substance Use Disorders: No Previous Attempt: Yes Family History of Suicide: Yes Previous Psychiatric Hospitalization: Yes Hopelessness: Yes Smoker: No Protective Factors Assessment Gnosticism Beliefs: Yes : No Responsible for Young Children: No Employed: No ([employer] on Mondays and Disability) Stable Relationships: Yes Supportive Family: Yes Good Rapport with Provider: Yes Tobacco Cessation at Discharge Tobacco Cessation Medication Prescribed at Discharge: Not Applicable/Non-Smoker Total Time Total Time Spent: Greater Than 30 Minutes Total Time Includes: Examination of the patient, Discharge Planning and Medication Reconciliation Discharge Data Lab Results 09/27/18 09/27/18 09/27/18 17:45 17:45 17:58 WBC 7.21 RBC 4.57 Hgb 11.5 L Hct 35.6 L MCV 77.9 L MCH 25.2 MCHC 32.3 RDW Std Deviation 44.6 RDW Coeff of Bret 15.7 H Plt Count 179 MPV 8.5 Immature Gran % (Auto) 0.1 Neut % (Auto) 67.1 Lymph % (Auto) 27.0 Cook % (Auto) 5.8 Eos % (Auto) 0.0 Baso % (Auto) 0.0 Immature Gran # (Auto) 0.01 Neut # (Auto) 4.83 Lymph # (Auto) 1.95 Cook # (Auto) 0.42 Eos # (Auto) 0.00 Baso # (Auto) 0.00 Sodium Potassium Chloride Carbon Dioxide Anion Gap BUN Creatinine Est Cr Clr Drug Dosing Est GFR ( Amer) Est GFR (Non-Af Amer) BUN/Creatinine Ratio Glucose POC Glucose Calcium Total Bilirubin AST ALT Alkaline Phosphatase Total Protein Albumin Globulin Albumin/Globulin Ratio Triglycerides Cholesterol LDL Cholesterol, Calc VLDL Cholesterol, Calc HDL Cholesterol Cholesterol/HDL Ratio TSH Urine Color Yellow Urine Appearance Cloudy H Urine pH 6.0 Ur Specific [place] 1.011 Urine Protein Negative Urine Glucose (UA) Negative Urine Ketones Negative Urine Blood Trace H Urine Nitrite Negative Urine Bilirubin Negative Urine Urobilinogen Negative Ur Leukocyte Esterase 2+ H Urine WBC (Auto) >30 H Urine RBC (Auto) 0-4 U Hyaline Cast (Auto) 1-5 U Epithel Cells (Auto) 10-20 H Urine Bacteria (Auto) 2+ H Salicylates Urine Opiates Screen Neg Ur Methadone, Qual Neg Acetaminophen Urine Barbiturates Neg Ur Phencyclidine (PCP) Neg Clozapine Norclozapine U Amphetamin/Meth Scrn Neg MDMA (Ecstasy) Screen Neg U Benzodiazepines Scrn Neg Ur Cocaine Metabolite Neg U Marijuana (THC) Screen Neg Ethyl Alcohol mg/dL 09/27/18 09/27/18 09/27/18 17:58 17:58 17:58 WBC RBC Hgb Hct MCV MCH MCHC RDW Std Deviation RDW Coeff of Bret Plt Count MPV Immature Gran % (Auto) Neut % (Auto) Lymph % (Auto) Cook % (Auto) Eos % (Auto) Baso % (Auto) Immature Gran # (Auto) Neut # (Auto) Lymph # (Auto) Cook # (Auto) Eos # (Auto) Baso # (Auto) Sodium 140 Potassium 4.1 Chloride 105 Carbon Dioxide 26 Anion Gap 10.0 BUN 7 Creatinine 0.61 Est Cr Clr Drug Dosing Not Reportable Est GFR ( Amer) 123.4 Est GFR (Non-Af Amer) 106.5 BUN/Creatinine Ratio 11.5 Glucose 113 H POC Glucose Calcium 9.1 Total Bilirubin 0.3 AST 12 L ALT 18 Alkaline Phosphatase 115 Total Protein 7.0 Albumin 3.3 L Globulin 3.7 Albumin/Globulin Ratio 0.9 Triglycerides Cholesterol LDL Cholesterol, Calc VLDL Cholesterol, Calc HDL Cholesterol Cholesterol/HDL Ratio TSH 0.765 Urine Color Urine Appearance Urine pH Ur Specific [place] Urine Protein Urine Glucose (UA) Urine Ketones Urine Blood Urine Nitrite Urine Bilirubin Urine Urobilinogen Ur Leukocyte Esterase Urine WBC (Auto) Urine RBC (Auto) U Hyaline Cast (Auto) U Epithel Cells (Auto) Urine Bacteria (Auto) Salicylates < 1.7 L Urine Opiates Screen Ur Methadone, Qual Acetaminophen < 2 L Urine Barbiturates Ur Phencyclidine (PCP) Clozapine Norclozapine U Amphetamin/Meth Scrn MDMA (Ecstasy) Screen U Benzodiazepines Scrn Ur Cocaine Metabolite U Marijuana (THC) Screen Ethyl Alcohol mg/dL < 3.0 09/28/18 09/28/18 09/29/18 07:58 20:16 07:17 WBC RBC Hgb Hct MCV MCH MCHC RDW Std Deviation RDW Coeff of Bret Plt Count MPV Immature Gran % (Auto) Neut % (Auto) Lymph % (Auto) Cook % (Auto) Eos % (Auto) Baso % (Auto) Immature Gran # (Auto) Neut # (Auto) Lymph # (Auto) Cook # (Auto) Eos # (Auto) Baso # (Auto) Sodium Potassium Chloride Carbon Dioxide Anion Gap BUN Creatinine Est Cr Clr Drug Dosing Est GFR ( Amer) Est GFR (Non-Af Amer) BUN/Creatinine Ratio Glucose POC Glucose 135 H 137 H Calcium Total Bilirubin AST ALT Alkaline Phosphatase Total Protein Albumin Globulin Albumin/Globulin Ratio Triglycerides Cholesterol LDL Cholesterol, Calc VLDL Cholesterol, Calc HDL Cholesterol Cholesterol/HDL Ratio TSH Urine Color Urine Appearance Urine pH Ur Specific [place] Urine Protein Urine Glucose (UA) Urine Ketones Urine Blood Urine Nitrite Urine Bilirubin Urine Urobilinogen Ur Leukocyte Esterase Urine WBC (Auto) Urine RBC (Auto) U Hyaline Cast (Auto) U Epithel Cells (Auto) Urine Bacteria (Auto) Salicylates Urine Opiates Screen Ur Methadone, Qual Acetaminophen Urine Barbiturates Ur Phencyclidine (PCP) Clozapine 818 Norclozapine 328 U Amphetamin/Meth Scrn MDMA (Ecstasy) Screen U Benzodiazepines Scrn Ur Cocaine Metabolite U Marijuana (THC) Screen Ethyl Alcohol mg/dL 09/29/18 09/30/18 10/01/18 07:51 08:28 08:08 WBC RBC Hgb Hct MCV MCH MCHC RDW Std Deviation RDW Coeff of Bret Plt Count MPV Immature Gran % (Auto) Neut % (Auto) Lymph % (Auto) Cook % (Auto) Eos % (Auto) Baso % (Auto) Immature Gran # (Auto) Neut # (Auto) Lymph # (Auto) Cook # (Auto) Eos # (Auto) Baso # (Auto) Sodium Potassium Chloride Carbon Dioxide Anion Gap BUN Creatinine Est Cr Clr Drug Dosing Est GFR ( Amer) Est GFR (Non-Af Amer) BUN/Creatinine Ratio Glucose POC Glucose 130 H 117 H Calcium Total Bilirubin AST ALT Alkaline Phosphatase Total Protein Albumin Globulin Albumin/Globulin Ratio Triglycerides 185 H Cholesterol 158 LDL Cholesterol, Calc 80 VLDL Cholesterol, Calc 37 HDL Cholesterol 41 Cholesterol/HDL Ratio 4 TSH Urine Color Urine Appearance Urine pH Ur Specific [place] Urine Protein Urine Glucose (UA) Urine Ketones Urine Blood Urine Nitrite Urine Bilirubin Urine Urobilinogen Ur Leukocyte Esterase Urine WBC (Auto) Urine RBC (Auto) U Hyaline Cast (Auto) U Epithel Cells (Auto) Urine Bacteria (Auto) Salicylates Urine Opiates Screen Ur Methadone, Qual Acetaminophen Urine Barbiturates Ur Phencyclidine (PCP) Clozapine Norclozapine U Amphetamin/Meth Scrn MDMA (Ecstasy) Screen U Benzodiazepines Scrn Ur Cocaine Metabolite U Marijuana (THC) Screen Ethyl Alcohol mg/dL 10/02/18 10/03/18 10/03/18 07:42 07:29 08:13 WBC 8.96 RBC 4.54 Hgb 11.6 L Hct 35.1 L MCV 77.3 L MCH 25.6 MCHC 33.0 RDW Std Deviation 44.2 RDW Coeff of Bret 15.8 H Plt Count 191 MPV 8.6 Immature Gran % (Auto) 0.2 Neut % (Auto) 70.5 Lymph % (Auto) 23.7 Cook % (Auto) 5.6 Eos % (Auto) 0.0 Baso % (Auto) 0.0 Immature Gran # (Auto) 0.02 Neut # (Auto) 6.32 Lymph # (Auto) 2.12 Cook # (Auto) 0.50 Eos # (Auto) 0.00 Baso # (Auto) 0.00 Sodium Potassium Chloride Carbon Dioxide Anion Gap BUN Creatinine Est Cr Clr Drug Dosing Est GFR ( Amer) Est GFR (Non-Af Amer) BUN/Creatinine Ratio Glucose POC Glucose 113 H 116 H Calcium Total Bilirubin AST ALT Alkaline Phosphatase Total Protein Albumin Globulin Albumin/Globulin Ratio Triglycerides Cholesterol LDL Cholesterol, Calc VLDL Cholesterol, Calc HDL Cholesterol Cholesterol/HDL Ratio TSH Urine Color Urine Appearance Urine pH Ur Specific [place] Urine Protein Urine Glucose (UA) Urine Ketones Urine Blood Urine Nitrite Urine Bilirubin Urine Urobilinogen Ur Leukocyte Esterase Urine WBC (Auto) Urine RBC (Auto) U Hyaline Cast (Auto) U Epithel Cells (Auto) Urine Bacteria (Auto) Salicylates Urine Opiates Screen Ur Methadone, Qual Acetaminophen Urine Barbiturates Ur Phencyclidine (PCP) Clozapine Norclozapine U Amphetamin/Meth Scrn MDMA (Ecstasy) Screen U Benzodiazepines Scrn Ur Cocaine Metabolite U Marijuana (THC) Screen Ethyl Alcohol mg/dL 10/04/18 10/05/18 07:47 07:53 WBC RBC Hgb Hct MCV MCH MCHC RDW Std Deviation RDW Coeff of Bret Plt Count MPV Immature Gran % (Auto) Neut % (Auto) Lymph % (Auto) Cook % (Auto) Eos % (Auto) Baso % (Auto) Immature Gran # (Auto) Neut # (Auto) Lymph # (Auto) Cook # (Auto) Eos # (Auto) Baso # (Auto) Sodium Potassium Chloride Carbon Dioxide Anion Gap BUN Creatinine Est Cr Clr Drug Dosing Est GFR ( Amer) Est GFR (Non-Af Amer) BUN/Creatinine Ratio Glucose POC Glucose 111 H 110 H Calcium Total Bilirubin AST ALT Alkaline Phosphatase Total Protein Albumin Globulin Albumin/Globulin Ratio Triglycerides Cholesterol LDL Cholesterol, Calc VLDL Cholesterol, Calc HDL Cholesterol Cholesterol/HDL Ratio TSH Urine Color Urine Appearance Urine pH Ur Specific [place] Urine Protein Urine Glucose (UA) Urine Ketones Urine Blood Urine Nitrite Urine Bilirubin Urine Urobilinogen Ur Leukocyte Esterase Urine WBC (Auto) Urine RBC (Auto) U Hyaline Cast (Auto) U Epithel Cells (Auto) Urine Bacteria (Auto) Salicylates Urine Opiates Screen Ur Methadone, Qual Acetaminophen Urine Barbiturates Ur Phencyclidine (PCP) Clozapine Norclozapine U Amphetamin/Meth Scrn MDMA (Ecstasy) Screen U Benzodiazepines Scrn Ur Cocaine Metabolite U Marijuana (THC) Screen Ethyl Alcohol mg/dL Hospital Course (1) Schizoaffective disorder, depressive type: 09/28 -continue home psychotropic medications, including clozapine 25 mg q. noon and 225 mg nightly, desmopressin 0.2 mg at bedtime, trazodone 100 mg at bedtime, lamotrigine 200 mg every morning, escitalopram 20 mg every morning, and clonazepam 0.5 mg twice daily as needed. -Check clozapine level and consider titration of clozapine to target auditory hallucinations and suicidality. She has been sleeping excessively recently, likely related to her depression, but we will need to balance the potential benefits of increasing her antipsychotic with the risk of worsening sedation, which could negatively impair functioning. -Coordinate care with outpatient therapist at [facility] (message sent), outpatient case manager, skills mobile psych rehab worker, and [employer]. -Monitoring on an atypical antipsychotic: Last fasting lipid profile was done 11/2017 and was normal. Will order FLP for tomorrow. Most recent hemoglobin A1c was July 2018 (6.7, estimated average glucose 146). -Continue weekly CBC with differential for monitoring of ANC; on admission was 4.83. 09/29 - Continue current meds and plan - Fasting lipid profile notable for elevated triglycerides 185; other values within normal limits. - Await clozapine level for dosage adjustment - Encourage exercise and structure 09/30 - Continue to encourage exercise and structure - Continue current meds - Await Clozapine level. 10/01 -Patient reports worsening auditory hallucinations and is agreeable to increasing clozapine by 25 mg (to 50 mg at noon and 225 mg at bedtime). Clozapine level is a send out, and results are pending, but she has been on higher doses in the past. 10/02 - Continue clozapine 50mg at noon and 225mg HS - hallucinations improved from yesterday; consider further titration as indicated - Still awaiting clozapine level 10/05 - Clozapine level 818 (toxic >1000). - Continue current dose of clozapine and q2 week CBC/d. (2) Cystitis: 09/28 -UA on admission was contaminated, cloudy, with trace blood, 2+ leukocyte esterase, greater than 30 WBCs, 10-20 epithelial cells, 2+ bacteria. Patient denies dysuria, urinary frequency and urgency. She received a one-time dose of Keflex in the ER. Will not order antibiotics, given that she is asymptomatic and appears to have a contaminated sample, but will follow up on urine culture results. 10/01 -urine culture positive for Klebsiella pneumoniae. Patient is asymptomatic, and sample was contaminated with 10-20 epithelial cells. As patient is not in a high risk population, antibiotic treatment is not warranted. (3) Hypertension: 09/28 -continue home dose of losartan potassium, and monitor blood pressure. Send records to PCP, Dr. Tam, for coordination of care. (4) Hypothyroidism: 09/28 -continue home dose of levothyroxine 125 mcg daily. TSH on admission 0.765, within normal limits. (5) Type 2 diabetes mellitus: 09/28 -continue diabetic diet and metformin daily. Random glucose on admission 113, and hemoglobin A1c on 08/11/2018 was 6.7 (estimated average glucose 146). -Encourage good nutrition and regular exercise. (6) Dyslipidemia: 09/28 -most recent fasting lipid profile was 12/09/2017, all values within normal limits. Will order [facility] for tomorrow for monitoring on an atypical antipsychotic. -Continue home dose of Lipitor. (7) Asthma: 09/28 -continue home dose of Singulair 10 mg at bedtime. (8) Morbid obesity with BMI of 50.0-59.9, adult: 09/28 -as above, continue education regarding good nutrition and the benefits of regular exercise. BMI is 53.8 (294 lbs), and weight has increased 13 pounds in the past 7 months. Post Discharge Appointments Primary Care Physician Name Of Family Doctor: Dr. Niles Tam [facility] [place] Primary Care Provider Appointment Comment: [id number], [place] [address] Psychiatrist Name of Psychiatrist: Dr Urbina [facility] Psychiatrist's Date of Appointment with Psychiatrist: 10/06/18 Time of Appointment with Psychiatrist: 3:00 p.m. Psychiatric Appointment Comment: [address], [place] Therapist Name of Therapist: Lamar Miller [facility] Therapist's Date of Therapist Appointment: 10/09/18 Therapy Appointment Comment: [address] [facility], [place] General Ii Farmworker Name of General Ii Farmworker: NOREEN Thomason Phone Number for General Ii Farmworker: [phone] Date of Appointment with General Ii Farmworker: 10/07/18 Time of Appointment with General Ii Farmworker: 2:30 p.m. Partial or Psych Rehab Name of Partial or Psych Rehab: Mario Alberto Dorantes Mobile Psych Rehab Phone Number of Partial or Psych Rehab: cell: [phone] Partial or Psych Rehab Appointment Comment: call to notify of dc & to schedule Smoking Cessation Counseling Tobacco Cessation Medication Prescribed at Discharge: Not Applicable/Non-Smoker Contact Information Discharge Discharge Address: [address] [place] [id number] Discharge Plan Discharge Items Patient Disposition: Home - Self-Care Reason For Visit: DEPRESSION Discharge Diagnosis: Schizoaffective disorder, depressed type Discharge Goals: Decrease discomfort, Improve disease control, Improve function, Increase independence, Learn about illness and Therapeutic intervention Activity: Per 'Additional Instructions' section Non-emergency contact: Primary Care Provider, Psychiatrist, Therapist and Envelope Stamping Machine Operator Call non-emergency contact if: you have any medication questions and your symptoms worsen Follow-up/Referrals: Pro,Niles Pichardo MD [Primary Care Provider] - Diet: Carb Consistent or DM2 Addtl Provider Instructions: SPECIAL CARE INSTRUCTIONS: 1. Follow through with your scheduled aftercare appointments. If unable to keep an appointment, please call to reschedule. 2. Take your medication only as prescribed. Medication should not be changed or stopped without the approval of your doctor. In the event of worsening symptoms or concerns about side effects, contact your doctor immediately. 3. Utilize new healthy coping skills, anger management skills, and stress management skills learned during your hospitalization. Journal feelings and process them with a support person. Identify stressors or situations that may result in relapse, deterioration or inappropriate behaviors and develop a plan to deal with those issues. 4. If your coping skills are ineffective and you are in crisis, contact your outpatient providers for direction. If unable to reach your providers, please call the CAN HELP LINE AT or go to the closest Emergency Room. 5. Avoid alcohol and un-prescribed drugs. 6. You have been provided with the Mental Health Advance Directives Pamphlet for your review. AFTERCARE APPOINTMENTS: * Please call your insurance company prior to your scheduled appointment to confirm your aftercare providers are covered. Take your insurance information to your appointments. WHO TO CALL AND WHEN: Medical Emergencies: For questions or emergencies related to your hospital stay, please contact the Inpatient Behavioral Health Unit at [phone]. A tank builder is on-call 23/12 for the Behavioral Health Unit for emergencies At any time you feel your situation is an emergency, you may also call [phone] immediately. Your Doctors Instructions noted above were prepared by provider Archana Urbina MD. Prescriptions: New clozapine [Clozaril] 25 mg Tablet 25 mg PO UD Qty: 45 RF: 0 Continued clozapine 100 mg tablet 2 tab PO HS RF: 0 cholecalciferol (vitamin D3) 1,000 unit capsule 1 tab PO DAILY RF: 0 trazodone 100 mg PO HS RF: 0 losartan [Cozaar] 50 mg tablet 50 mg PO QAM RF: 0 metformin [Glucophage] 500 mg tablet 1,000 mg PO BID RF: 0 atorvastatin [Lipitor] 20 mg tablet 20 mg PO HS RF: 0 lamotrigine [Lamictal] 200 mg tablet 200 mg PO QAM RF: 0 desmopressin 0.2 mg Tablet 0.2 mg PO HS RF: 0 estradiol [Estrace] 1 mg tablet 1 mg PO QAM RF: 0 levothyroxine [Synthroid] 125 mcg tablet 125 mcg PO QAM RF: 0 montelukast [Singulair] 10 mg tablet 10 mg PO DAILY RF: 0 ergocalciferol (vitamin D2) [Vitamin D2] 50,000 unit Capsule 50,000 unit PO MONTHLY RF: 0 escitalopram oxalate [Lexapro] 20 mg tablet 20 mg PO DAILY RF: 0 Changed clonazepam [Klonopin] 0.5 mg tablet 0.5 mg PO DAILY PRN (Reason: anx) Qty: 1 RF: 0 Discontinued clozapine 25 mg tablet 25 mg PO BID RF: 0 Stand-Alone Forms: [facility] Discharge Orders: Discharge Order (Routine); Ordered 10/05/18 Ordered By: Archana Urbina Admission Data Admit Date/Time: 09/27/18 19:46 Attending Provider: Archana Urbina Admit Provider: Archana Urbina Primary Care Provider: Niles Tam Service: Psychiatry Other Interventions: Discharge Summary Assessment (RN) Last Done: 10/05/18 09:07 PSY Interdisciplinary Discharge Planning Last Done: 10/04/18 12:00 Pending Studies at Discharge: No
[2018-10-05] MEDS: lamoTRIgine 100 MG TAB PO SCH (08:56)
[2018-10-05] MEDS: ESTRADIOL 1 MG TAB PO SCH (08:56)
[2018-10-05] MEDS: METFORMIN HCL 500 MG TAB PO SCH (08:56)
[2018-10-05] MEDS: LOSARTAN POTASSIUM 50 MG TAB PO SCH (08:56)
[2018-10-05] MEDS: ESCITALOPRAM OXALATE 20 MG TAB PO SCH (08:57)
[2018-10-05] MEDS: CHOLECALCIFEROL 1,000 UNITS TAB PO SCH (08:57)
== END 2018-10-05 11:00 | disposition home or self-care (01) | DRG 885 ==
LOC: ED 16:57 → 3S 19:45

== ENCOUNTER 2018-11-17 16:05 | Inpatient (IN) ==
[2018-11-17] MEDS ORDERED: clonazePAM 0.5 MG TAB PO STA (16:22)
--- NOTE | 2018-11-17 16:52 | Emergency Department Note ---
Entered by Payt Dickson acting as a scribe for Shon Pressley MD History of Present Illness General Chief complaint: Mental Health Evaluation Stated complaint: MENTAL HEALTH EVALUATION Time Seen by Provider: 11/17/18 16:12 Source: patient History of Present Illness Onset (ago): week(s) 1 Location: left and right (generalized) Pain Consistency: + other (increased) Quality: + other (depression/anxiety) Associated symptoms: + denies other symptoms The patient is a 48 year old female who presents to the Emergency Room with complaints of increased depression and anxiety over the last week. 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 She reports she is not going to act on her thoughts. She also notes she has been crying a lot over the last week. She states both of her parents passed within the last year and their birthdays are coming up, which has been contributing to her symptoms. Home Medications Home Medications Medication Instructions Recorded Confirmed Type atorvastatin [Lipitor] 20 mg PO HS 02/25/18 11/17/18 History desmopressin 0.2 mg PO HS 02/25/18 11/17/18 History ergocalciferol (vitamin D2) 50,000 unit PO MONTHLY 02/25/18 11/17/18 History [Vitamin D2] escitalopram oxalate [Lexapro] 20 mg PO DAILY 02/25/18 11/17/18 History estradiol [Estrace] 1 mg PO QAM 02/25/18 11/17/18 History lamotrigine [Lamictal] 200 mg PO QAM 02/25/18 11/17/18 History levothyroxine [Synthroid] 125 mcg PO QAM 02/25/18 11/17/18 History losartan [Cozaar] 50 mg PO QAM 02/25/18 11/17/18 History metformin [Glucophage] 1,000 mg PO BID 02/25/18 11/17/18 History cholecalciferol (vitamin D3) 1 tab PO DAILY 07/16/18 11/17/18 History [Vitamin D3] clozapine 2 tab PO HS 07/16/18 11/17/18 History trazodone 100 mg PO HS 07/16/18 11/17/18 History clozapine [Clozaril] 25 mg PO UD #45 tab 10/05/18 11/17/18 Rx montelukast 10 mg tablet 10 mg PO DAILY 90 Days #90 tab 11/09/18 11/17/18 Rx buspirone 15 mg PO BID 11/17/18 11/18/18 History clonazepam 0.25 mg PO DAILY 11/18/18 11/18/18 History Allergies Allergy/AdvReac Type Severity Reaction Status Date / Time chlorpromazine Allergy Mild LIGHTHEADED Verified 07/16/18 14:54 SHUFFLING GAIT aspirin Allergy Unknown Unknown Verified 07/16/18 14:54 doxycycline Allergy Unknown HEARING Unverified 07/16/18 14:54 VOICES levofloxacin Allergy Unknown ?ALLERGIC Verified 07/16/18 14:54 TO LEVAQUIN? NSAIDS (Non-Steroidal Allergy Unknown . Verified 07/16/18 14:54 Anti-Inflamma onion Allergy Unknown VOMITING Unverified 07/16/18 14:54 Penicillins Allergy Unknown RASH Verified 07/16/18 14:54 prednisone Allergy Unknown . Verified 07/16/18 14:54 quinine Allergy Unknown Unknown Verified 07/16/18 14:54 Past Med/Surg History Medical History H/O: hysterectomy IBS (irritable bowel syndrome) Influenza (Acute) Hypoxemia (Acute) Asthma exacerbation (Acute) SOB (shortness of breath) (Acute) Schizoaffective disorder, depressive type (Chronic 01/11/11) Asthma (Chronic) Class II obesity (Chronic) Dyslipidemia (Chronic) Hypertension (Chronic) Hypothyroidism (Chronic) Type 2 diabetes mellitus (Chronic) Family History Other No pertinent family history Social History Preferred Language: Spanish Communication Ability: Effective Visual Impairment: No Limitations Hearing Ability: Normal Molding Sander Required: No Beliefs That Will Affect Care: None marital status: Single Current Living Situation: Alone Feels Safe at Home: Yes Smoking Status: Never smoker Tobacco Type: cigarettes Second Hand Exposure: No Hx Alcohol Use: No Hx Substance Use: No Review of Systems See HPI for pertinent positives & negatives. and A total of 10 systems reviewed and were otherwise negative Physical Exam Vital Signs Vital Signs - 24 hr 11/17/18 16:08 11/17/18 17:14 11/17/18 19:00 Temperature 98.4 F Temperature Source Oral Sepsis Recent Fever Within 48 Hours No Sepsis New/Unexplained Change in Mental Status No Sepsis Action Taken by Nursing No Action Required Pulse Rate 111 H Pulse Rate [Finger] 72 Pulse Rhythm Regular Pulse Rhythm [Finger] Regular Pulse Strength Normal Pulse Strength [Finger] Normal Respiratory Rate 20 20 Respiratory Effort / Characteristics Non-Labored Spontaneous Non-Labored Spontaneous Respiratory Depth Normal Normal Respiratory Pattern Regular Regular Blood Pressure 182/101 H Blood Pressure [Right Arm] 140/76 162/92 H Blood Pressure Mean 128 Blood Pressure Mean [Right Arm] 97 115 Blood Pressure Position Sitting Blood Pressure Position [Right Arm] Pulse Oximetry 94 99 Oxygen Delivery Method Room Air Room Air 11/17/18 20:24 11/17/18 21:05 Temperature Temperature Source Sepsis Recent Fever Within 48 Hours Sepsis New/Unexplained Change in Mental Status Sepsis Action Taken by Nursing Pulse Rate Pulse Rate [Finger] 88 Pulse Rhythm Pulse Rhythm [Finger] Pulse Strength Pulse Strength [Finger] Respiratory Rate 20 Respiratory Effort / Characteristics Respiratory Depth Respiratory Pattern Blood Pressure Blood Pressure [Right Arm] 178/70 H 170/79 H Blood Pressure Mean Blood Pressure Mean [Right Arm] 106 109 Blood Pressure Position Blood Pressure Position [Right Arm] Sitting Sitting Pulse Oximetry 99 98 Oxygen Delivery Method Room Air GENERAL: Awake, alert, well-appearing, in no acute distress HENT: Normocephalic, atraumatic. Oropharynx unremarkable. EYES: Normal conjunctiva. Sclera non-icteric. NECK: Supple. No nuchal rigidity. FROM. No JVD. RESPIRATORY: Clear to auscultation. CARDIAC: Regular rate, normal rhythm. Extremities warm and well perfused. Pulses equal. ABDOMEN: Soft, non-distended. No tenderness to palpation. No rebound or guarding. No masses. RECTAL: Deferred. MUSCULOSKELETAL: Chest examination reveals no tenderness. The back is symmetrical on inspection without obvious abnormality. There is no CVA tenderness to palpation. No joint edema. LOWER EXTREMITIES: Calves are equal size bilaterally and non-tender. No edema. No discoloration. NEURO: Normal sensorium. No sensory or motor deficits noted. SKIN: No rash or jaundice noted. Course 1613: The patient was evaluated in room A7. A complete history and physical exam was performed. 0: The patient has been medically cleared. 2030: The patient has been accepted to [address] [place] [address]. Administered Medications Atorvastatin Calcium (Lipitor) 20 mg PO HS [facility] Stop: 12/18/18 20:59 Last Admin: 11/18/18 21:36 Dose: 20 mg Documented by: [id number] Admin: 11/17/18 22:53 Dose: 20 mg Documented by: [id number] Buspirone HCl (Buspar) 15 mg PO BID [facility] Stop: 12/18/18 08:59 Last Admin: 11/18/18 21:37 Dose: 15 mg Documented by: [id number] Admin: 11/18/18 09:41 Dose: 15 mg Documented by: [id number] Clonazepam (Klonopin) 0.25 mg PO DAILY PRN PRN Reason: Anxiety Stop: 12/19/18 08:59 Last Admin: 11/18/18 11:59 Dose: 0.25 mg Documented by: [id number] Clozapine (Clozapine) 200 mg PO [facility] Stop: 12/18/18 20:59 Last Admin: 11/18/18 21:40 Dose: 200 mg Documented by: [id number] Admin: 11/17/18 22:53 Dose: 200 mg Documented by: [id number] Clozapine (Clozaril) 50 mg PO DAILY@1200 [facility] Stop: 12/18/18 11:59 Last Admin: 11/18/18 12:00 Dose: 50 mg Documented by: [id number] Clozapine (Clozaril) 25 mg PO BID [facility] Stop: 12/18/18 20:59 Last Admin: 11/18/18 21:49 Dose: 25 mg Documented by: [id number] Desmopressin Acetate (Ddavp) 0.2 mg PO [facility] Stop: 12/18/18 20:59 Last Admin: 11/18/18 21:39 Dose: 0.2 mg Documented by: [id number] Admin: 11/17/18 22:53 Dose: 0.2 mg Documented by: [id number] Escitalopram Oxalate (Lexapro) 20 mg PO DAILY [facility] Stop: 12/18/18 08:59 Last Admin: 11/18/18 08:16 Dose: 20 mg Documented by: [id number] Estradiol (Estrace) [address] [facility] Stop: 12/18/18 08:59 Last Admin: 11/18/18 08:16 Dose: 1 mg Documented by: [id number] Lamotrigine (Lamictal) [address] [facility] Stop: 12/18/18 08:59 Last Admin: 11/18/18 08:16 Dose: 200 mg Documented by: [id number] Levothyroxine Sodium (Synthroid) 125 mcg PO DAILYBB [facility] Stop: 12/18/18 07:59 Last Admin: 11/18/18 08:16 Dose: 125 mcg Documented by: [id number] Losartan Potassium (Cozaar) 50 mg PO QAM [facility] Stop: 12/18/18 08:59 Last Admin: 11/18/18 08:16 Dose: 50 mg Documented by: [id number] Metformin HCl (Glucophage) 1,000 mg PO BIDM [facility] Stop: 12/18/18 08:59 Last Admin: 11/18/18 17:11 Dose: 1,000 mg Documented by: [id number] Admin: 11/18/18 08:16 Dose: 1,000 mg Documented by: [id number] Montelukast Sodium (Singulair) 10 mg PO DAILY [facility] Stop: 12/18/18 08:59 Last Admin: 11/18/18 08:16 Dose: 10 mg Documented by: [id number] Trazodone HCl (Desyrel) 100 mg PO [facility] Stop: 12/18/18 20:59 Last Admin: 11/18/18 21:36 Dose: 100 mg Documented by: [id number] Admin: 11/17/18 22:53 Dose: 100 mg Documented by: [id number] Vitamin D (Vitamin D3) 1,000 units PO DAILY [facility] Stop: 12/18/18 08:59 Last Admin: 11/18/18 08:16 Dose: 1,000 units Documented by: [id number] Discontinued Medications Cefdinir (Omnicef Cap) 300 mg PO ONE STA Stop: 11/17/18 19:09 Last Admin: 11/17/18 20:03 Dose: 300 mg Documented by: [id number] Clonazepam (Klonopin) 0.5 mg PO NOW STA Stop: 11/17/18 16:23 Last Admin: 11/17/18 17:00 Dose: 0.5 mg Documented by: [id number] Clozapine (Clozaril) 25 mg PO [facility] Stop: 12/18/18 21:59 Last Admin: 11/17/18 22:53 Dose: 25 mg Documented by: [id number] Lisinopril (Zestril) 20 mg PO NOW STA Stop: 11/17/18 20:40 Last Admin: 11/17/18 21:07 Dose: Not Given Documented by: [id number] Losartan Potassium (Cozaar) 50 mg PO NOW STA Stop: 11/17/18 21:18 Last Admin: 11/17/18 22:26 Dose: Not Given Documented by: [id number] Medical Decision Making Differential Diagnosis Etiologies such as mood disorder, infection, hypoglycemia, electrolyte abnormalities, cardiac sources, intracerebral event, toxicologic, neurologic, as well as others were entertained. Medical Records Attestation: I reviewed the patient's medical records. Home Medications Current Medication List: was personally reviewed by me Laboratory Data Attestation: I reviewed the patient's lab results. Result diagrams: 11/17/18 17:04 11/17/18 17:04 Lab Results 11/17/18 11/17/18 11/17/18 Range/Units 17:04 17:04 17:04 WBC 9.76 (4.8-10.8) K/uL RBC 4.53 (4.2-5.4) M/uL Hgb 11.4 L (12.0-16.0) g/dL Hct 34.7 L (37-47) % MCV 76.6 L (80-100) fL MCH 25.2 (25-34) pg MCHC 32.9 (32-36) g/dL RDW Std Deviation 41.9 (36.4-46.3) fL RDW Coeff of Bret 15.0 H (11.5-14.5) % Plt Count 218 (130-400) K/uL MPV 8.5 (7.4-10.4) fL Immature Gran % (Auto) 0.1 % Neut % (Auto) 75.7 % Lymph % (Auto) 19.0 % [place] % (Auto) 5.2 % Eos % (Auto) 0.0 % Baso % (Auto) 0.0 % Immature Gran # (Auto) 0.01 (0.00-0.02) K/uL Neut # (Auto) 7.39 H (1.4-6.5) K/uL Lymph # (Auto) 1.85 (1.2-3.4) K/uL [place] # (Auto) 0.51 (0.11-0.59) K/uL Eos # (Auto) 0.00 (0-0.5) K/uL Baso # (Auto) 0.00 (0-0.2) K/uL Sodium 131 L (136-145) mmol/L Potassium 4.1 (3.5-5.1) mmol/L Chloride 97 L (98-107) mmol/L Carbon Dioxide 26 (21-32) mmol/L Anion Gap 8.0 (3-11) BUN 8 (7-18) mg/dl Creatinine 0.61 (0.6-1.2) mg/dl Est Cr Clr Drug Dosing Not Reportable Est GFR ( Amer) 122.5 Est GFR (Non-Af Amer) 105.7 BUN/Creatinine Ratio 12.6 (10-20) Glucose 100 H (70-99) mg/dl Calcium 8.6 (8.5-10.1) mg/dl Total Bilirubin 0.3 (0.2-1) mg/dl AST 14 L (15-37) U/L ALT 21 (12-78) U/L Alkaline Phosphatase 110 (45-117) U/L Total Protein 7.1 (6.4-8.2) gm/dl Albumin 3.5 (3.4-5.0) gm/dl Globulin 3.6 (2.5-4.0) gm/dl Albumin/Globulin Ratio 1.0 (0.9-2) TSH 1.140 (0.300-4.500) uIu/ml Urine Color Urine Appearance (Clear) Urine pH (4.5-7.5) Ur Specific [place] (1.000-1.030) Urine Protein (Negative) Urine Glucose (UA) (Negative) Urine Ketones (Negative) Urine Blood (Negative) Urine Nitrite (Negative) Urine Bilirubin (Negative) Urine Urobilinogen (Negative) Ur Leukocyte Esterase (Negative) Urine WBC (Auto) (0-5) /hpf Urine RBC (Auto) (0-4) /hpf U Hyaline Cast (Auto) (0-5) /lpf U Epithel Cells (Auto) (0-5) /lpf Urine Bacteria (Auto) (Negative) Urine Test (Negative) Salicylates < 1.7 L (2.8-20) mg/dl Urine Opiates Screen (Neg) Ur Methadone, Qual (Neg) Acetaminophen < 2 L (10-30) ug/ml Urine Barbiturates (Neg) Ur Phencyclidine (PCP) (Neg) U Amphetamin/Meth Scrn (Neg) MDMA (Ecstasy) Screen (Neg) U Benzodiazepines Scrn (Neg) Ur Cocaine Metabolite (Neg) U Marijuana (THC) Screen (Neg) Ethyl Alcohol mg/dL (0-3) mg/dl 11/17/18 11/17/18 11/17/18 Range/Units 17:04 18:00 18:00 WBC (4.8-10.8) K/uL RBC (4.2-5.4) M/uL Hgb (12.0-16.0) g/dL Hct (37-47) % MCV (80-100) fL MCH (25-34) pg MCHC (32-36) g/dL RDW Std Deviation (36.4-46.3) fL RDW Coeff of Bret (11.5-14.5) % Plt Count (130-400) K/uL MPV (7.4-10.4) fL Immature Gran % (Auto) % Neut % (Auto) % Lymph % (Auto) % [place] % (Auto) % Eos % (Auto) % Baso % (Auto) % Immature Gran # (Auto) (0.00-0.02) K/uL Neut # (Auto) (1.4-6.5) K/uL Lymph # (Auto) (1.2-3.4) K/uL [place] # (Auto) (0.11-0.59) K/uL Eos # (Auto) (0-0.5) K/uL Baso # (Auto) (0-0.2) K/uL Sodium (136-145) mmol/L Potassium (3.5-5.1) mmol/L Chloride (98-107) mmol/L Carbon Dioxide (21-32) mmol/L Anion Gap (3-11) BUN (7-18) mg/dl Creatinine (0.6-1.2) mg/dl Est Cr Clr Drug Dosing Est GFR ( Amer) Est GFR (Non-Af Amer) BUN/Creatinine Ratio (10-20) Glucose (70-99) mg/dl Calcium (8.5-10.1) mg/dl Total Bilirubin (0.2-1) mg/dl AST (15-37) U/L ALT (12-78) U/L Alkaline Phosphatase (45-117) U/L Total Protein (6.4-8.2) gm/dl Albumin (3.4-5.0) gm/dl Globulin (2.5-4.0) gm/dl Albumin/Globulin Ratio (0.9-2) TSH (0.300-4.500) uIu/ml Urine Color Yellow Urine Appearance Clear (Clear) Urine pH 6.0 (4.5-7.5) Ur Specific [place] 1.007 (1.000-1.030) Urine Protein Negative (Negative) Urine Glucose (UA) Negative (Negative) Urine Ketones Negative (Negative) Urine Blood Negative (Negative) Urine Nitrite Positive A (Negative) Urine Bilirubin Negative (Negative) Urine Urobilinogen Negative (Negative) Ur Leukocyte Esterase 1+ H (Negative) Urine WBC (Auto) 10-30 H (0-5) /hpf Urine RBC (Auto) 0-4 (0-4) /hpf U Hyaline Cast (Auto) 1-5 (0-5) /lpf U Epithel Cells (Auto) 20-30 H (0-5) /lpf Urine Bacteria (Auto) 3+ H (Negative) Urine Test (Negative) Salicylates (2.8-20) mg/dl Urine Opiates Screen Neg (Neg) Ur Methadone, Qual Neg (Neg) Acetaminophen (10-30) ug/ml Urine Barbiturates Neg (Neg) Ur Phencyclidine (PCP) Neg (Neg) U Amphetamin/Meth Scrn Neg (Neg) MDMA (Ecstasy) Screen Neg (Neg) U Benzodiazepines Scrn Neg (Neg) Ur Cocaine Metabolite Neg (Neg) U Marijuana (THC) Screen Neg (Neg) Ethyl Alcohol mg/dL < 3.0 (0-3) mg/dl 11/17/18 Range/Units 18:00 WBC (4.8-10.8) K/uL RBC (4.2-5.4) M/uL Hgb (12.0-16.0) g/dL Hct (37-47) % MCV (80-100) fL MCH (25-34) pg MCHC (32-36) g/dL RDW Std Deviation (36.4-46.3) fL RDW Coeff of Bret (11.5-14.5) % Plt Count (130-400) K/uL MPV (7.4-10.4) fL Immature Gran % (Auto) % Neut % (Auto) % Lymph % (Auto) % [place] % (Auto) % Eos % (Auto) % Baso % (Auto) % Immature Gran # (Auto) (0.00-0.02) K/uL Neut # (Auto) (1.4-6.5) K/uL Lymph # (Auto) (1.2-3.4) K/uL [place] # (Auto) (0.11-0.59) K/uL Eos # (Auto) (0-0.5) K/uL Baso # (Auto) (0-0.2) K/uL Sodium (136-145) mmol/L Potassium (3.5-5.1) mmol/L Chloride (98-107) mmol/L Carbon Dioxide (21-32) mmol/L Anion Gap (3-11) BUN (7-18) mg/dl Creatinine (0.6-1.2) mg/dl Est Cr Clr Drug Dosing Est GFR ( Amer) Est GFR (Non-Af Amer) BUN/Creatinine Ratio (10-20) Glucose (70-99) mg/dl Calcium (8.5-10.1) mg/dl Total Bilirubin (0.2-1) mg/dl AST (15-37) U/L ALT (12-78) U/L Alkaline Phosphatase (45-117) U/L Total Protein (6.4-8.2) gm/dl Albumin (3.4-5.0) gm/dl Globulin (2.5-4.0) gm/dl Albumin/Globulin Ratio (0.9-2) TSH (0.300-4.500) uIu/ml Urine Color Urine Appearance (Clear) Urine pH (4.5-7.5) Ur Specific [place] (1.000-1.030) Urine Protein (Negative) Urine Glucose (UA) (Negative) Urine Ketones (Negative) Urine Blood (Negative) Urine Nitrite (Negative) Urine Bilirubin (Negative) Urine Urobilinogen (Negative) Ur Leukocyte Esterase (Negative) Urine WBC (Auto) (0-5) /hpf Urine RBC (Auto) (0-4) /hpf U Hyaline Cast (Auto) (0-5) /lpf U Epithel Cells (Auto) (0-5) /lpf Urine Bacteria (Auto) (Negative) Urine Test Negative (Negative) Salicylates (2.8-20) mg/dl Urine Opiates Screen (Neg) Ur Methadone, Qual (Neg) Acetaminophen (10-30) ug/ml Urine Barbiturates (Neg) Ur Phencyclidine (PCP) (Neg) U Amphetamin/Meth Scrn (Neg) MDMA (Ecstasy) Screen (Neg) U Benzodiazepines Scrn (Neg) Ur Cocaine Metabolite (Neg) U Marijuana (THC) Screen (Neg) Ethyl Alcohol mg/dL (0-3) mg/dl Blood Pressure Blood Pressure Findings: Elevated blood pressure (further management by facility ) MDM Narrative This is a 48-year-old female who presents emergency department over concerns that she cannot contract for safety. The patient has a history of suicidal gesture. She reports she had a plan to overdose on her medications. She was sent in by her psychiatrist to the emergency department. Upon arrival to the emergency department the patient's blood pressure is elevated. She was given he r blood pressure medications here. Repeat examination revealed improvement in the patient's symptoms. She was medically cleared by me and discussed with the psychiatric case liaison who discussed the patient with [facility]. The patient was admitted to [facility]. Impression & Plan Mood disorder Discharge Plan Visit Data *Final* Discharge Date/Time: 11/17/18 21:19 Chief Complaint: Mental Health Evaluation Stated Complaint: MENTAL HEALTH EVALUATION ED Provider: Shon Pressley Discharge Problem: Mood disorder Patient Disposition: Admitted As Inpatient Discharge Instructions Interventions: ED Discharge Assessment Last Done: 11/17/18 21:19 The corey's documentation has been prepared under my direction and personally reviewed by me in its entirety. I confirm that the note above accurately reflects all work, treatment, procedures, and medical decision making performed by me.
[2018-11-17 17:21] LABS: Hematocrit (blood only) 34.7 % (37-47); Hemoglobin 11.4 g/dL (12.0-16.0); Immature Granulocytes # (auto) 0.01 K/uL (0.00-0.02); Immature Granulocytes % (auto) 0.1 %; Lymphocytes # (auto) 1.85 K/uL (1.2-3.4); Mean Corpuscular Hgb Conc 32.9 g/dL (32-36); Mean Corpuscular Volume 76.6 fL (80-100); Mean Platelet Volume 8.5 fL (7.4-10.4); Monocytes # (auto) 0.51 K/uL (0.11-0.59); Monocytes % (auto) 5.2 %; Neutrophils # (auto) 7.39 K/uL (1.4-6.5); Neutrophils % (auto) 75.7 %; Platelet Count 218 K/uL (130-400); RDW Standard Deviation 41.9 fL (36.4-46.3); Red Blood Count 4.53 M/uL (4.2-5.4); White Blood Count 9.76 K/uL (4.8-10.8)
[2018-11-17 17:38] LABS: Alanine Aminotransferase 21 U/L (12-78); Albumin Level 3.5 gm/dl (3.4-5.0); Aspartate Aminotransferase 14 U/L (15-37); BUN Creatinine Ratio 12.6 (10-20); Blood Urea Nitrogen 8 mg/dl (7-18); Calcium 8.6 mg/dl (8.5-10.1); Carbon Dioxide 26 mmol/L (21-32); Chloride 97 mmol/L (98-107); Est GFR (African American) 122.5; Est GFR (Non-African American) 105.7; Glucose 100 mg/dl (70-99); Potassium 4.1 mmol/L (3.5-5.1); Sodium 131 mmol/L (136-145)
[2018-11-17 17:49] LABS: Alkaline Phosphatase 110 U/L (45-117); Bilirubin,Total 0.3 mg/dl (0.2-1); Globulin 3.6 gm/dl (2.5-4.0); Total Protein 7.1 gm/dl (6.4-8.2)
[2018-11-17 18:17] LABS: Acetaminophen < 2 ug/ml (10-30); Salicylate < 1.7 mg/dl (2.8-20)
[2018-11-17 18:28] LABS: Appearance Urine Clear (Clear); Bacteria Urine Automated 3+ (Negative); Bilirubin Urine Negative (Negative); Blood Urine Negative (Negative); Color Urine Yellow; Epithelial Cell Urine Auto 20-30 /lpf (0-5); Glucose Urine UA Negative (Negative); Ketones Urine Negative (Negative); Leukocyte Esterase Urine 1+ (Negative); Nitrite Urine Positive (Negative); Protein Urine Negative (Negative); RBC Urine Automated 0-4 /hpf (0-4); Specific Gravity Urine 1.007 (1.000-1.030); Urobilinogen Urine Negative (Negative)
[2018-11-17] MEDS ORDERED: CEFDINIR 300 MG CAP PO STA (19:08)
[2018-11-17 19:11] LABS: Amphetamines+Metham, Urine Neg (Neg); Barbiturates, Urine Neg (Neg); Benzodiazepine, Urine Neg (Neg); Cocaine, Urine Neg (Neg); MDMA (Ecstacy), Urine Neg (Neg); Methadone, Urine Neg (Neg); Opiate, Urine Neg (Neg); Phencyclidine, Urine Neg (Neg)
[2018-11-17 19:58] LABS: Pregnancy Test, Urine Negative (Negative)
[2018-11-17] MEDS ORDERED: LISINOPRIL 20 MG TAB PO STA (20:39)
[2018-11-17] MEDS ORDERED: MAGNESIUM HYDROXIDE SUSP 30 ML UDC PO PRN (21:10)
[2018-11-17] MEDS ORDERED: ACETAMINOPHEN 325 MG TAB PO PRN (21:10)
[2018-11-17] MEDS ORDERED: ALUMINUM/MAGNESIUM SUSP 30 ML UDC PO PRN (21:10)
[2018-11-17] MEDS ORDERED: SODIUM CHLORIDE 0.65% NA SOLN 45 ML (OCEAN) PRN (21:10)
[2018-11-17] MEDS ORDERED: clonazePAM 0.5 MG TAB PO PRN (21:13)
[2018-11-17] MEDS ORDERED: LOSARTAN POTASSIUM 50 MG TAB PO STA (21:17)
[2018-11-17] MEDS: cloZAPine 100 MG TAB PO SCH ×2 (22:52→22:53)
[2018-11-17] MEDS: ATORVASTATIN 20 MG TAB PO SCH (22:53)
[2018-11-17] MEDS: TRAZODONE HCL 100 MG TAB PO SCH (22:53)
[2018-11-17] MEDS: DESMOPRESSIN ACETATE 0.1 MG TAB PO SCH (22:53)
[2018-11-18] MEDS: LEVOTHYROXINE SODIUM 125 MCG TABLET PO SCH (08:16)
[2018-11-18] MEDS: CHOLECALCIFEROL 1,000 UNITS TAB PO SCH (08:16)
[2018-11-18] MEDS: lamoTRIgine 100 MG TAB PO SCH (08:16)
[2018-11-18] MEDS: LOSARTAN POTASSIUM 50 MG TAB PO SCH (08:16)
[2018-11-18] MEDS: ESTRADIOL 1 MG TAB PO SCH (08:16)
[2018-11-18] MEDS: MONTELUKAST SODIUM 10 MG TABLET PO SCH (08:16)
[2018-11-18] MEDS: METFORMIN HCL 500 MG TAB PO SCH ×2 (08:16→17:11)
[2018-11-18] MEDS: ESCITALOPRAM OXALATE 20 MG TAB PO SCH (08:16)
[2018-11-18] MEDS: BUSPIRONE HCL 7.5 MG TAB PO SCH ×2 (09:41→21:37)
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
[2018-11-18] MEDS: clonazePAM 0.5 MG TAB PO PRN (11:59)
[2018-11-18] MEDS: cloZAPine 25 MG TAB PO SCH ×2 (12:00→21:49)
[2018-11-18] MEDS ORDERED: LOPERAMIDE HCL 2 MG CAP PO PRN (13:26)
[2018-11-18] MEDS: ATORVASTATIN 20 MG TAB PO SCH (21:36)
[2018-11-18] MEDS: TRAZODONE HCL 100 MG TAB PO SCH (21:36)
[2018-11-18] MEDS: DESMOPRESSIN ACETATE 0.1 MG TAB PO SCH (21:39)
[2018-11-18] MEDS: cloZAPine 100 MG TAB PO SCH (21:40)
[2018-11-18] MEDS ORDERED: cloZAPine 25 MG TAB PO SCH (22:00)
[2018-11-19] MEDS: LOSARTAN POTASSIUM 50 MG TAB PO SCH (08:06)
[2018-11-19] MEDS: ESTRADIOL 1 MG TAB PO SCH (08:06)
[2018-11-19] MEDS: cloZAPine 25 MG TAB PO SCH ×3 (08:06→21:53)
[2018-11-19] MEDS: METFORMIN HCL 500 MG TAB PO SCH ×2 (08:06→17:24)
[2018-11-19] MEDS: LEVOTHYROXINE SODIUM 125 MCG TABLET PO SCH (08:06)
[2018-11-19] MEDS: BUSPIRONE HCL 7.5 MG TAB PO SCH ×2 (08:06→21:53)
[2018-11-19] MEDS: MONTELUKAST SODIUM 10 MG TABLET PO SCH (08:07)
[2018-11-19] MEDS: CHOLECALCIFEROL 1,000 UNITS TAB PO SCH (08:07)
[2018-11-19] MEDS: ESCITALOPRAM OXALATE 20 MG TAB PO SCH (08:07)
[2018-11-19] MEDS: lamoTRIgine 100 MG TAB PO SCH (08:07)
--- NOTE | 2018-11-19 09:16 | Psychiatric Progress Note ---
Date of Service November 19, 2018 Impression / Recommendations Impression 48-year-old single female with a long history of severe and persistent mental illness, diagnosed with schizoaffective disorder depressive type, anxiety, and likely a personality disorder component as well, who has had numerous hospitalizations and is admitted voluntarily with worsening mood, anxiety, and suicidal thoughts with a plan to overdose in the context of multiple losses. Her most recent trigger was that her parents birthdays are coming up, and Father's Day this past weekend. She lives independently and has many mental health services as detailed above. Clozapine has been helpful for her sc hizoaffective disorder, and buspirone was recently added for anxiety. We are trying to taper her off clonazepam which has been a slow process. Pt feels she has maintained stability of symptoms without worsening since admission, but is not noticing significant improvement. Today is the her mother's birthday, and she reports attempts to stay distracted. She verbalizes ongoing SI and continued auditory hallucinations of her grandfather's voice instructing her to kill herself. Inpatient treatment is medically necessary due to the severity of her symptoms and risk for suicide if discharged. (1) Suicidal ideation: 11/18 -continue inpatient treatment. -Suicide checks for safety. -Work on healthy coping skills and discharge safety plan. Patient has chronic suicidal ideation, typically with a plan to overdose. She lives alone, and has not been willing to allow someone else to hold her medications and dispense them to her daily. She does have a lock box in which she keeps her medications, but she is able to access it whenever she wants. 11/19 - Ongoing verbalization of SI, reporting now worse than at time of admission - Today is mother's birthday, anniversary of which contributed to need for admission (2) Schizoaffective disorder, depressive type: 11/18 -continue clozapine 25 mg every morning, 50 mg q. noon, and 225 mg at bedtime. She is getting CBC with differential every 2 weeks, and as she had one yesterday on admission, will be due for the next one on 12/01/2018. -FLP and FG were performed 09/29/2018, notable for elevated triglycerides 185 and glucose 137. Hemoglobin A1c on 08/11/2018 was elevated at 6.7, with an estimated average glucose 146. -Continue trazodone 100 mg at bedtime for sleep, and lamotrigine 200 mg every morning. -Encourage group attendance and participation, work on healthy coping skills, and involve outpatient supports ([facility] visiting today). -Coordinate care with outpatient therapist, Lamar Miller. 11/19 - Continue current medication regimen unchanged - Encouraged participation in group programming - Offer any needed encouragement today, as is her mother's birthday (3) Anxiety: 11/18 -patient with generalized and social anxiety. Continue home dose of buspirone, consider dose increase. Continue home dose of clonazepam 0.25 mg daily as needed, which has very slowly been tapered down with a plan to discontinue. -Work on coping strategies for managing anxiety. 11/19 - Reviewed coping strategies - Consider need for titration of buspirone, though patient has been able to tolerate gradual taper of clonazepam - she feels she would benefit from multiple daily doses to manage anxiety (4) Hypertension: 11/18 -continue home dose of losartan. Was hypertensive in the ER yesterday, but blood pressure has normalized, may have been anxiety induced. (5) Dyslipidemia: 11/18 -continue Lipitor. (6) Hypothyroidism: 11/18 -TSH normal, continue home dose of levothyroxine. (7) Type 2 diabetes mellitus: 11/18 -diabetic diet, continue home dose of metformin. (8) Morbid obesity with BMI of 50.0-59.9, adult: 11/18 -encourage daily exercise and healthy diet. Although clozapine has a risk of weight gain and metabolic syndrome, it is also one of the few medications that has been beneficial and well-tolerated for her severe psychiatric symptoms, and the benefits likely outweigh the risks. (9) Abnormal findings on microbiological examination of urine: 11/19 - Abnormal urinalysis in ED, sent for culture - patient denying any symptoms suggestive of a UTI - Culture showed growth of klebsiella pneumoniae, presently asymptomatic - If symptoms should develop, would benefit from initiation of treatment, sensitivities provided Inventory Assets Strengths: Engaged and compliant with treatment, has multiple outpatient services Needs: Processed grief, improved coping skills Risk Factors Assessment Male: No : Yes Do You Have Access To A Gun?: No Health Problems: Yes Mental Health Diagnoses: Yes Substance Use Disorders: No Previous Attempt: No Family History of Suicide: Yes Previous Psychiatric Hospitalization: Yes Hopelessness: Yes Smoker: No Protective Factors Assessment Tenriism Beliefs: Yes : No Responsible for Young Children: No Employed: Yes (Disabled but works 2 hours a week) Stable Relationships: Yes Supportive Family: Yes (One brother is supportive, has a strained relationship with the other) Good Rapport with Provider: Yes Interval History Identifying Information HOWIE HSU is a 48-year-old F who currently lives in [place] alone, has a history of schizoaffective disorder depressive type, and was admitted on 11/17/18 21:10 on a 201 voluntary commitment for worsening mood and suicidal ideation with a plan to overdose. Chief Complaint "Well, it's ok. Today is my mother's birthday." Review of Systems Notes Constitutional: denied Cardiovascular: denied Respiratory: denied Gastrointestinal: reports episodic diarrhea Neurological: denied Psychiatric: denies symptoms other than stated above Total of at least 10 systems reviewed, pertinent positives as above and in HPI. Sleep Information Total Hours of Sleep: 7.5 Sleep Comments: pt on q-15 minute checks Meal Information Percent Meal Consumed - Breakfast: 100 Percent Meal Consumed - Lunch: 90 Percent Meal Consumed - Dinner: 100 Subjective Subjective Patient was seen & assessed and interval progress reviewed with Nursing. Staff reports patient has continued to endorse ongoing suicidal ideation, reporting worsening of depression and anxiety last evening. Patient continues to experience auditory hallucinations of her grandfather, but feels she is able to tolerate these voices. Social work is exploring the possibility of home health aide at discharge, to enable ongoing independent living. Patient was seen today to assess progress since admission. She states that she has been experiencing some increased anxiety in the last half an hour. She reports "I only have 1 dose of Klonopin now, so I am trying not to use it until I need to." Patient was open about reviewing coping strategies with this provider, which includes presence in the milieu, utilization of a stress ball, and retreating to her room with a sound machine "when the voices get too loud." Patient states she does not have much motivation today, but after brief discussion she feels that she m ay benefit from taking a shower. Patient feels positive that her symptoms have not worsened, but she does not feel that they have improved significantly since her admission. She does mention that today is her mother's birthday, and reports a preference to remain distracted throughout the day. Patient reports ongoing thoughts of "life is not worth living." At this time, auditory hallucinations of her grandfather's voice are reduced somewhat - though she admits they fluctuate in volume throughout the course of the day. Reviewed with patient her urine culture which is positive for Klebsiella. Patient denies any symptoms of a UTI, and given recent reports of episodic diarrhea she feels comfortable not initiating a course of antibiotics unless symptoms are present. Patient denies any other needs or concerns presently. Physical Exam Psychiatric Orientation: alert, oriented x 3 and cooperative Apperance: appropriately dressed, appropriately groomed and appeared stated age Eye Contact: good eye contact Motor Behavior: steady gait and station (cautious, but steady gait - ambulates with assistance from a cane) and no abnormal motor movements Speech: normal rate/rhythm/volume of speech Affect: + depressed affect, + anxious affect and + constricted affect Mood: + depressed mood and + anxious mood ("my anxiety was just getting a little higher just now." ) Thought Process: goal directed thought process and clear/coherent thought process Thought Content: reality based without delusions and + hopelessness Suicidal Thoughts: + reports suicidal thoughts Homicidal Thoughts: denies homicidal thoughts Hallucinations: + auditory hallucinations (persistent auditory hallucinations of her grandfather's voice); no visual hallucinations Cognition: attention grossly intact and language grossly intact Insight: + fair insight Judgement: + fair judgement Vital Signs (Past 24 Hours) Last Vital Signs Temp 36.5 C 11/19/18 06:00 Pulse 90 11/19/18 06:00 Resp 18 11/19/18 06:00 BP 145/84 H 11/19/18 06:00 Pulse Ox 99 11/17/18 21:19 Results & Data Laboratory Results Laboratory Results - last 24 hr 11/19/18 08:01 POC Glucose 122 H Current Inpatient Medications Current Inpatient Medications: Current Inpatient Medications Acetaminophen (Tylenol) 650 mg PO Q4H PRN PRN Reason: Headache or Minor Fever Stop: 12/17/18 21:09 Al Hydrox/Mg Hydrox/Simethicone (Maalox) 30 ml PO Q4H PRN PRN Reason: GI Upset Stop: 12/17/18 21:09 Atorvastatin Calcium (Lipitor) 20 mg PO HS JOSE Stop: 12/18/18 20:59 Last Admin: 11/18/18 21:36 Dose: 20 mg Documented by: Buspirone HCl (Buspar) 15 mg PO BID JOSE Stop: 12/18/18 08:59 Last Admin: 11/19/18 08:06 Dose: 15 mg Documented by: Clonazepam (Klonopin) 0.25 mg PO DAILY PRN PRN Reason: Anxiety Stop: 12/19/18 08:59 Last Admin: 11/18/18 11:59 Dose: 0.25 mg Documented by: Clozapine (Clozapine) 200 mg PO HS [facility] Stop: 12/18/18 20:59 Last Admin: 11/18/18 21:40 Dose: 200 mg Documented by: Clozapine (Clozaril) 50 mg PO DAILY@1200 [facility] Stop: 12/18/18 11:59 Last Admin: 11/18/18 12:00 Dose: 50 mg Documented by: Clozapine (Clozaril) 25 mg PO BID [facility] Stop: 12/18/18 20:59 Last Admin: 11/19/18 08:06 Dose: 25 mg Documented by: Desmopressin Acetate (Ddavp) 0.2 mg PO HS [facility] Stop: 12/18/18 20:59 Last Admin: 11/18/18 21:39 Dose: 0.2 mg Documented by: Ergocalciferol (Vitamin D2) 50,000 units PO Q30D@0900 [facility] Stop: 12/30/18 08:59 Escitalopram Oxalate (Lexapro) 20 mg PO DAILY [facility] Stop: 12/18/18 08:59 Last Admin: 11/19/18 08:07 Dose: 20 mg Documented by: Estradiol (Estrace) 1 mg PO QAM [facility] Stop: 12/18/18 08:59 Last Admin: 11/19/18 08:06 Dose: 1 mg Documented by: Hydroxyzine HCl (Vistaril) 25 mg PO Q4H PRN PRN Reason: Anxiety Stop: 12/17/18 21:09 Hydroxyzine HCl (Vistaril) 50 mg PO HSZ PRN PRN Reason: Insomnia Stop: 12/17/18 21:09 Lamotrigine (Lamictal) 200 mg PO QAM [facility] Stop: 12/18/18 08:59 Last Admin: 11/19/18 08:07 Dose: 200 mg Documented by: Levothyroxine Sodium (Synthroid) 125 mcg PO DAILYBB [facility] Stop: 12/18/18 07:59 Last Admin: 11/19/18 08:06 Dose: 125 mcg Documented by: Loperamide HCl (Imodium) 2 mg PO PRN PRN PRN Reason: Diarrhea Stop: 12/18/18 13:25 Losartan Potassium (Cozaar) 50 mg PO QAM [facility] Stop: 12/18/18 08:59 Last Admin: 11/19/18 08:06 Dose: 50 mg Documented by: Magnesium Hydroxide (Milk Of Magnesia) 30 ml PO DAILY PRN PRN Reason: Heartburn Stop: 12/17/18 21:09 Metformin HCl (Glucophage) 1,000 mg PO BIDM JOSE Stop: 12/18/18 08:59 Last Admin: 11/19/18 08:06 Dose: 1,000 mg Documented by: Montelukast Sodium (Singulair) 10 mg PO DAILY JOSE Stop: 12/18/18 08:59 Last Admin: 11/19/18 08:07 Dose: 10 mg Documented by: Sodium Chloride ([place] Nasal) 1 - 2 sprays NA PRN PRN PRN Reason: Nasal Dryness/Congestion Stop: 12/17/18 21:09 Trazodone HCl (Desyrel) 100 mg PO HS [facility] Stop: 12/18/18 20:59 Last Admin: 11/18/18 21:36 Dose: 100 mg Documented by: Vitamin D (Vitamin D3) 1,000 units PO DAILY JO[facility] Stop: 12/18/18 08:59 Last Admin: 11/19/18 08:07 Dose: 1,000 units Documented by: Post Discharge Appointments Primary Care Physician Name Of Family Doctor: Dr. Tam, [facility] [place] Psychiatrist Name of Psychiatrist: Dr. Urbina Date of Appointment with Psychiatrist: 12/01/18 Time of Appointment with Psychiatrist: 3pm Psychiatric Appointment Comment: Ramiro will accompany to appt Therapist Name of Therapist: Lamar Miller [facility] Instrumentation And Control Technician Name of Instrumentation And Control Technician: Constantino Thomason Date of Appointment with Instrumentation And Control Technician: 12/02/18 Time of Appointment with Instrumentation And Control Technician: 2:30pm Partial or Psych Rehab Name of Partial or Psych Rehab: [facility] CPT Code CPT Code 81637
[2018-11-19] MEDS: clonazePAM 0.5 MG TAB PO PRN (12:55)
[2018-11-19] MEDS: TRAZODONE HCL 100 MG TAB PO SCH (21:52)
[2018-11-19] MEDS: cloZAPine 100 MG TAB PO SCH (21:52)
[2018-11-19] MEDS: ATORVASTATIN 20 MG TAB PO SCH (21:54)
[2018-11-19] MEDS: DESMOPRESSIN ACETATE 0.1 MG TAB PO SCH (21:54)
[2018-11-20] MEDS: BUSPIRONE HCL 7.5 MG TAB PO SCH (08:00)
[2018-11-20] MEDS: LEVOTHYROXINE SODIUM 125 MCG TABLET PO SCH (08:00)
[2018-11-20] MEDS: LOSARTAN POTASSIUM 50 MG TAB PO SCH (08:00)
[2018-11-20] MEDS: ESTRADIOL 1 MG TAB PO SCH (08:01)
[2018-11-20] MEDS: ESCITALOPRAM OXALATE 20 MG TAB PO SCH (08:01)
[2018-11-20] MEDS: METFORMIN HCL 500 MG TAB PO SCH ×2 (08:01→17:05)
[2018-11-20] MEDS: lamoTRIgine 100 MG TAB PO SCH (08:01)
[2018-11-20] MEDS: MONTELUKAST SODIUM 10 MG TABLET PO SCH (08:02)
[2018-11-20] MEDS: CHOLECALCIFEROL 1,000 UNITS TAB PO SCH (08:02)
--- NOTE | 2018-11-20 12:19 | Psychiatric Progress Note ---
Date of Service November 20, 2018 Impression / Recommendations Impression 48-year-old single female with a long history of severe and persistent mental illness, diagnosed with schizoaffective disorder depressive type, anxiety, and likely a personality disorder component as well, who has had numerous hospitalizations and is admitted voluntarily with worsening mood, anxiety, and suicidal thoughts with a plan to overdose in the context of multiple losses. Her most recent trigger was that her parents birthdays and Father's Day. She lives independently and has many mental health services as detailed above. Clozapine has been helpful for her schizoaffective disorder, and buspi laquita was recently added for anxiety - titrated today to a dose of 15mg TID. She remains reluctant to discontinue clonazepam entirely, and until buspirone titration is prove to be effect, will continue one dose of 0.25mg daily as needed. Anxiety is increased today. She verbalizes ongoing SI and continued auditory hallucinations of her grandfather's voice instructing her to kill herself. Inpatient treatment is medically necessary due to the severity of her symptoms and risk for suicide if discharged. (1) Suicidal ideation: 11/18 -continue inpatient treatment. -Suicide checks for safety. -Work on healthy coping skills and discharge safety plan. Patient has chronic suicidal ideation, typically with a plan to overdose. She lives alone, and has not been willing to allow someone else to hold her medications and dispense them to her daily. She does have a lock box in which she keeps her medications, but she is able to access it whenever she wants. 11/19 - Ongoing verbalization of SI, reporting now worse than at time of admission - Today is mother's birthday, anniversary of which contributed to need for admission 11/20 - Reports suicidality today, ongoing auditory hallucinations instructing her to kill herself (2) Schizoaffective disorder, depressive type: 11/18 -continue clozapine 25 mg every morning, 50 mg q. noon, and 225 mg at bedtime. She is getting CBC with differential every 2 weeks, and as she had one yesterday on admission, will be due for the next one on 12/01/2018. -FLP and FG were performed 09/29/2018, notable for elevated triglycerides 185 and glucose 137. Hemoglobin A1c on 08/11/2018 was elevated at 6.7, with an estimated average glucose 146. -Continue trazodone 100 mg at bedtime for sleep, and lamotrigine 200 mg every morning. -Encourage group attendance and participation, work on healthy coping skills, and involve outpatient supports ([facility] visiting today). -Coordinate care with outpatient therapist, Lamar Miller. 11/19 - Continue current medication regimen unchanged - Encouraged participation in group programming - Offer any needed encouragement today, as is her mother's birthday 11/20 - Outpatient records suggest outpatient clozapine dosing was 50mg @1200 and 225mg qHS - pt requesting for ordered 25mg AM dose to be discontinued. No evide nce that an adjustment was recommended to this regimen, so will return to outpatient scheduling as above. - Continue to offer encouragement and encourage participation in groups (3) Anxiety: 11/18 -patient with generalized and social anxiety. Continue home dose of buspirone, consider dose increase. Continue home dose of clonazepam 0.25 mg daily as needed, which has very slowly been tapered down with a plan to discontinue. -Work on coping strategies for managing anxiety. 11/19 - Reviewed coping strategies - Consider need for titration of buspirone, though patient has been able to tolerate gradual taper of clonazepam - she feels she would benefit from multiple daily doses to manage anxiety 11/20 - Increase buspirone to 15mg TID starting today, will continue prn use of clonazepam .25mg daily until efficacy of dose change is determined (4) Hypertension: 11/18 -continue home dose of losartan. Was hypertensive in the ER yesterday, but blood pressure has normalized, may have been anxiety induced. (5) Dyslipidemia: 11/18 -continue Lipitor. (6) Hypothyroidism: 11/18 -TSH normal, continue home dose of levothyroxine. (7) Type 2 diabetes mellitus: 11/18 -diabetic diet, continue home dose of metformin. (8) Morbid obesity with BMI of 50.0-59.9, adult: 11/18 -encourage daily exercise and healthy diet. Although clozapine has a risk of weight gain and metabolic syndrome, it is also one of the few medications that has been beneficial and well-tolerated for her severe psychiatric symptoms, and the benefits likely outweigh the risks. (9) Abnormal findings on microbiological examination of urine: 11/19 - Abnormal urinalysis in ED, sent for culture - patient denying any symptoms suggestive of a UTI - Culture showed growth of klebsiella pneumoniae, presently asymptomatic - If symptoms should develop, would benefit from initiation of treatment, sensitivities provided Inventory Assets Strengths: Engaged and compliant with treatment, has multiple outpatient services Needs: Processed grief, improved coping skills Risk Factors Assessment Male: No : Yes Do You Have Access To A Gun?: No Health Problems: Yes Mental Health Diagnoses: Yes Substance Use Disorders: No Previous Attempt: No Family History of Suicide: Yes Previous Psychiatric Hospitalization: Yes Hopelessness: Yes Smoker: No Protective Factors Assessment Cheondoism Beliefs: Yes : No Responsible for Young Children: No Employed: Yes (Disabled 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 Chief Complaint "I am having a lot of anxiety today." Review of Systems Notes Constitutional: reports increased restlessness and anxiety Cardiovascular: denied Respiratory: denied Gastrointestinal: denied Neurological: denied Psychiatric: denies symptoms other than stated above Total of at least 10 systems reviewed, pertinent positives as above and in HPI. Sleep Information Total Hours of Sleep: 8 Sleep Comments: pt on q-15 minute checks Meal Information Percent Meal Consumed - Breakfast: 100 Percent Meal Consumed - Lunch: 100 Percent Meal Consumed - Dinner: 100 Subjective Subjective Patient was seen & assessed and interval progress reviewed with Treatment Team. Staff reports the patient mother's birthday was yesterday. She remains suicidal and continues to experience auditory hallucinations. Unable to contract for safety. Pt was seen today to assess progress since admission. Pt states she is having a lot of anxiety today. She does not attribute it to anything in particular, but does feel the auditory hallucinations encouraging her to kill herself are very bothersome today. She reports depression as well, and has been isolating in her room more today. Pt was agreeable to discussing medications, in attempts to target her anxiety as she has been willing to gradually taper her dose of clonazepam. Pt admits to ongoing SI, feeling unsafe to leave the hospital. Pt denies other needs or concerns presently. Physical Exam Psychiatric Orientation: alert, oriented x 3 and cooperative Apperance: appropriately dressed and appropriately groomed Eye Contact: good eye contact Motor Behavior: no abnormal motor movements (observed while laying in bed) Speech: normal rate/rhythm/volume of speech Affect: + depressed affect and + anxious affect Mood: + depressed mood and + anxious mood "I'm very anxious today, very depressed too." Thought Process: goal directed thought process and clear/coherent thought process Thought Content: + hopelessness and + loneliness "I feel like I'm dying" Suicidal Thoughts: + reports suicidal thoughts Homicidal Thoughts: denies homicidal thoughts Hallucinations: + auditory hallucinations (voices telling her to kill herself) Cognition: remote memory grossly intact, attention grossly intact and language grossly intact Estimated Intelligence: consistent with education level Insight: + fair insight Judgement: + fair judgement Vital Signs (Past 24 Hours) Last Vital Signs Temp 36.3 C L 11/20/18 06:00 Pulse 91 H 11/20/18 06:00 Resp 18 11/20/18 06:00 BP 140/82 11/20/18 06:00 Pulse Ox 99 11/17/18 21:19 Results & Data Laboratory Results Laboratory Results - last 24 hr 11/20/18 08:06 POC Glucose 115 H Current Inpatient Medications Current Inpatient Medications: Current Inpatient Medications Acetaminophen (Tylenol) 650 mg PO Q4H PRN PRN Reason: Headache or Minor Fever Stop: 12/17/18 21:09 Al Hydrox/Mg Hydrox/Simethicone (Maalox) 30 ml PO Q4H PRN PRN Reason: GI Upset Stop: 12/17/18 21:09 Atorvastatin Calcium (Lipitor) 20 mg PO HS [facility] Stop: 12/18/18 20:59 Last Admin: 11/19/18 21:54 Dose: 20 mg Documented by: Buspirone HCl (Buspar) 15 mg PO BID JOSE Stop: 12/18/18 08:59 Last Admin: 11/20/18 08:00 Dose: 15 mg Documented by: Clonazepam (Klonopin) 0.25 mg PO DAILY PRN PRN Reason: Anxiety Stop: 12/19/18 08:59 Last Admin: 11/19/18 12:55 Dose: 0.25 mg Documented by: Clozapine (Clozapine) 200 mg PO HS [facility] Stop: 12/18/18 20:59 Last Admin: 11/19/18 21:52 Dose: 200 mg Documented by: Clozapine (Clozaril) 50 mg PO DAILY@1200 [facility] Stop: 12/18/18 11:59 Last Admin: 11/19/18 12:55 Dose: 50 mg Documented by: Clozapine (Clozaril) 25 mg PO BID [facility] Stop: 12/18/18 20:59 Last Admin: 11/19/18 21:53 Dose: 25 mg Documented by: Desmopressin Acetate (Ddavp) 0.2 mg PO HS [facility] Stop: 12/18/18 20:59 Last Admin: 11/19/18 21:54 Dose: 0.2 mg Documented by: Ergocalciferol (Vitamin D2) 50,000 units PO Q30D@0900 [facility] Stop: 12/30/18 08:59 Escitalopram Oxalate (Lexapro) 20 mg PO DAILY [facility] Stop: 12/18/18 08:59 Last Admin: 11/20/18 08:01 Dose: 20 mg Documented by: Estradiol (Estrace) 1 mg PO QAM [facility] Stop: 12/18/18 08:59 Last Admin: 11/20/18 08:01 Dose: 1 mg Documented by: Hydroxyzine HCl (Vistaril) 25 mg PO Q4H PRN PRN Reason: Anxiety Stop: 12/17/18 21:09 Last Admin: 11/20/18 11:06 Dose: 25 mg Documented by: Hydroxyzine HCl (Vistaril) 50 mg PO HSZ PRN PRN Reason: Insomnia Stop: 12/17/18 21:09 [facility]al) [facility] Stop: 12/18/18 08:59 Last Admin: 11/20/18 08:01 Dose: 200 mg Documented by: Levothyroxine Sodium (Synthroid) 125 mcg PO DAILYBB [facility] Stop: 12/18/18 07:59 Last Admin: 11/20/18 08:00 Dose: 125 mcg Documented by: Loperamide HCl (Imodium) 2 mg PO PRN PRN PRN Reason: Diarrhea Stop: 12/18/18 13:25 Losartan Potassium (Cozaar) 50 mg PO QAM [facility] Stop: 12/18/18 08:59 Last Admin: 11/20/18 08:00 Dose: 50 mg Documented by: Magnesium Hydroxide (Milk Of Magnesia) 30 ml PO DAILY PRN PRN Reason: Heartburn Stop: 12/17/18 21:09 Metformin HCl (Glucophage) 1,000 mg PO BIDM JOSE Stop: 12/18/18 08:59 Last Admin: 11/20/18 08:01 Dose: 1,000 mg Documented by: Montelukast Sodium (Singulair) 10 mg PO DAILY JOSE Stop: 12/18/18 08:59 Last Admin: 11/20/18 08:02 Dose: 10 mg Documented by: Sodium Chloride ([place] Nasal) 1 - 2 sprays NA PRN PRN PRN Reason: Nasal Dryness/Congestion Stop: 12/17/18 21:09 Trazodone HCl (Desyrel) 100 mg PO HS JOSE Stop: 12/18/18 20:59 Last Admin: 11/19/18 21:52 Dose: 100 mg Documented by: Vitamin D (Vitamin D3) 1,000 units PO DAILY JOSE Stop: 12/18/18 08:59 Last Admin: 11/20/18 08:02 Dose: 1,000 units Documented by: Post Discharge Appointments Primary Care Physician Name Of Family Doctor: Dr. Tam, [facility] [place] Primary Care Psychiatrist Name of Psychiatrist: Dr. Urbina Date of Appointment with Psychiatrist: 12/01/18 Time of Appointment with Psychiatrist: 3pm Psychiatric Appointment Comment: Ramiro will accompany to appt Therapist Name of Therapist: Lamar Miller [facility] Therapist's Date of Therapist Appointment: 12/27/18 Time of Therapist Appointment: 2pm Shank Rander Name of Shank Rander: Constantino Thomason Date of Appointment with Shank Rander: 12/02/18 Time of Appointment with Shank Rander: 2:30pm Partial or Psych Rehab Name of Partial or Psych Rehab: [facility] Contact Information Discharge Discharge Address: [address] [place] [address], [place] [address] CPT Code CPT Code 19226
[2018-11-20] MEDS: cloZAPine 25 MG TAB PO SCH ×3 (13:09→20:33)
[2018-11-20] MEDS: BusPIRone 15 MG TAB PO SCH ×2 (14:51→20:33)
[2018-11-20] MEDS: cloZAPine 100 MG TAB PO SCH (20:34)
[2018-11-20] MEDS: DESMOPRESSIN ACETATE 0.1 MG TAB PO SCH (20:34)
[2018-11-20] MEDS: ATORVASTATIN 20 MG TAB PO SCH (20:34)
[2018-11-20] MEDS: TRAZODONE HCL 100 MG TAB PO SCH (20:34)
[2018-11-21] MEDS: LEVOTHYROXINE SODIUM 125 MCG TABLET PO SCH (08:37)
[2018-11-21] MEDS: METFORMIN HCL 500 MG TAB PO SCH ×2 (08:38→17:12)
[2018-11-21] MEDS: lamoTRIgine 100 MG TAB PO SCH (08:38)
[2018-11-21] MEDS: ESTRADIOL 1 MG TAB PO SCH (08:38)
[2018-11-21] MEDS: BusPIRone 15 MG TAB PO SCH (08:38)
[2018-11-21] MEDS: LOSARTAN POTASSIUM 50 MG TAB PO SCH (08:38)
[2018-11-21] MEDS: MONTELUKAST SODIUM 10 MG TABLET PO SCH (08:39)
[2018-11-21] MEDS: ESCITALOPRAM OXALATE 20 MG TAB PO SCH (08:39)
[2018-11-21] MEDS: CHOLECALCIFEROL 1,000 UNITS TAB PO SCH (08:39)
[2018-11-21] MEDS: cloZAPine 25 MG TAB PO SCH ×2 (12:26→21:06)
[2018-11-21] MEDS: BUSPIRONE HCL 7.5 MG TAB PO SCH ×2 (14:27→21:05)
--- NOTE | 2018-11-21 14:29 | Psychiatric Progress Note ---
Date of Service November 21, 2018 Impression / Recommendations Impression 48-year-old single female with a long history of severe and persistent mental illness, diagnosed with schizoaffective disorder depressive type, anxiety, and likely a personality disorder component as well, who has had numerous hospitalizations and is admitted voluntarily with worsening mood, anxiety, and suicidal thoughts with a plan to overdose in the context of multiple losses. Her most recent trigger was that her parents birthdays and Father's Day. She lives independently and has many mental health services as detailed above. Clozapine has been helpful for her schizoaffective disorder, and buspi laquita was recently added for anxiety - titrated to a dose of 15mg TID. She remains reluctant to discontinue clonazepam entirely, and until buspirone titration is prove to be effect, will continue one dose of 0.25mg daily as needed. She verbalizes ongoing SI and continued auditory hallucinations of her grandfather's voice instructing her to kill herself. Inpatient treatment is medically necessary due to the severity of her symptoms and risk for suicide if discharged. (1) Suicidal ideation: 11/18 -continue inpatient treatment. -Suicide checks for safety. -Work on healthy coping skills and discharge safety plan. Patient has chronic suicidal ideation, typically with a plan to overdose. She lives alone, and has not been willing to allow someone else to hold her medications and dispense them to her daily. She does have a lock box in which she keeps her medications, but she is able to access it whenever she wants. 11/19 - Ongoing verbalization of SI, reporting now worse than at time of admission - Today is mother's birthday, anniversary of which contributed to need for admission 11/20 - Reports suicidality today, ongoing auditory hallucinations instructing her to kill herself 11/21 -Reports ongoing command hallucinations to kill herself however seemingly a little more confident in her ability to cope today (2) Schizoaffective disorder, depressive type: 11/18 -continue clozapine 25 mg every morning, 50 mg q. noon, and 225 mg at bedtime. She is getting CBC with differential every 2 weeks, and as she had one yesterday on admission, will be due for the next one on 12/01/2018. -FLP and FG were performed 09/29/2018, notable for elevated triglycerides 185 and glucose 137. Hemoglobin A1c on 08/11/2018 was elevated at 6.7, with an estimated average glucose 146. -Continue trazodone 100 mg at bedtime for sleep, and lamotrigine 200 mg every morning. -Encourage group attendance and participation, work on healthy coping skills, and involve outpatient supports ([facility] visiting today). -Coordinate care with outpatient therapist, Lamar Miller. 11/19 - Continue current medication regimen unchanged - Encouraged participation in group programming - Offer any needed encouragement today, as is her mother's birthday 11/20 - Outpatient records suggest outpatient clozapine dosing was 50mg @1200 and 225mg qHS - pt requesting for ordered 25mg AM dose to be discontinued. No evidence that an adjustment was recommended to this regimen, so will return to outpatient scheduling as above. - Continue to offer encouragement and encourage participation in groups 11/21 -Continue treatment plan unchanged (3) Anxiety: 11/18 -patient with generalized and social anxiety. Continue home dose of buspirone, consider dose increase. Continue home dose of clonazepam 0.25 mg daily as needed, which has very slowly been tapered down with a plan to discontinue. -Work on coping strategies for managing anxiety. 11/19 - Reviewed coping strategies - Consider need for titration of buspirone, though patient has been able to tolerate gradual taper of clonazepam - she feels she would benefit from multiple daily doses to manage anxiety 11/20 - Increase buspirone to 15mg TID starting today, will continue prn use of clonazepam .25mg daily until efficacy of dose change is determined 11/21 -Tolerated dose escalation of BuSpar. Continue unchanged -Continue therapeutic milieu (4) Hypertension: 11/18 -continue home dose of losartan. Was hypertensive in the ER yesterday, but blood pressure has normalized, may have been anxiety induced. (5) Dyslipidemia: 11/18 -continue Lipitor. (6) Hypothyroidism: 11/18 -TSH normal, continue home dose of levothyroxine. (7) Type 2 diabetes mellitus: 11/18 -diabetic diet, continue home dose of metformin. (8) Morbid obesity with BMI of 50.0-59.9, adult: 11/18 -encourage daily exercise and healthy diet. Although clozapine has a risk of weight gain and metabolic syndrome, it is also one of the few medications that has been beneficial and well-tolerated for her severe psychiatric symptoms, and the benefits likely outweigh the risks. (9) Abnormal findings on microbiological examination of urine: 11/19 - Abnormal urinalysis in ED, sent for culture - patient denying any symptoms suggestive of a UTI - Culture showed growth of klebsiella pneumoniae, presently asymptomatic - If symptoms should develop, would benefit from initiation of treatment, sensitivities provided Inventory Assets Strengths: Engaged and compliant with treatment, has multiple outpatient services Needs: Processed grief, improved coping skills Risk Factors Assessment Male: No : Yes Do You Have Access To A Gun?: No Health Problems: Yes Mental Health Diagnoses: Yes Substance Use Disorders: No Previous Attempt: No Family History of Suicide: Yes Previous Psychiatric Hospitalization: Yes Hopelessness: Yes Smoker: No Protective Factors Assessment Adventist Beliefs: Yes : No Responsible for Young Children: No Employed: Yes (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 Chief Complaint "I am still anxious". Review of Systems Sleep Information Total Hours of Sleep: 8.5 Sleep Comments: pt appeared to sleep 1.5 hrs during evening shift. pt on q-15 minute checks Meal Information Percent Meal Consumed - Breakfast: 100 Percent Meal Consumed - Lunch: 75 Percent Meal Consumed - Dinner: 100 Subjective Subjective Patient was seen & assessed and interval progress reviewed with Treatment Team. Patient highly anxious yesterday per staff. BuSpar was increased to 15 mg 3 times a day yesterday. She reports this was well-tolerated and denies dizziness or associated drowsiness today. She describes minimal improvement in anxiety but also states that she feels she is moving towards readiness for discharge. She is hoping to have increased supports at home if waiver program is ultimately approved. She believes this will be very helpful for her anxiety. She reports ongoing auditory hallucinations, command type to kill herself but states she feels safe in the hospital. "I use my coping skills." Physical Exam Psychiatric Orientation: alert and cooperative Apperance: + disheveled Eye Contact: good eye contact Motor Behavior: + psychomotor retardation (lateral jaw motion possible TD) Speech: + pressured speech (anxious quality) Affect: + anxious affect and + constricted affect Mood: + anxious mood Thought Process: goal directed thought process Thought Content: + preoccupation Suicidal Thoughts: denies suicidal plan and denies suicidal intent; + reports suicidal thoughts Hallucinations: + auditory hallucinations Insight: + fair insight Judgement: + fair judgement Vital Signs (Past 24 Hours) Last Vital Signs Temp 36.7 C 11/21/18 06:44 Pulse 97 H 11/21/18 06:44 Resp 18 11/21/18 06:44 BP 151/86 H 11/21/18 06:44 Pulse Ox 99 11/17/18 21:19 Results & Data Laboratory Results Laboratory Results - last 24 hr 11/17/18 11/21/18 17:04 08:14 POC Glucose 132 H Lamotrigine 2.1 L Current Inpatient Medications Current Inpatient Medications: Current Inpatient Medications Acetaminophen (Tylenol) 650 mg PO Q4H PRN PRN Reason: Headache or Minor Fever Stop: 12/17/18 21:09 Al Hydrox/Mg Hydrox/Simethicone (Maalox) 30 ml PO Q4H PRN PRN Reason: GI Upset Stop: 12/17/18 21:09 Atorvastatin Calcium (Lipitor) 20 mg PO HS JOSE Stop: 12/18/18 20:59 Last Admin: 11/20/18 20:34 Dose: 20 mg Documented by: Buspirone HCl (Buspar) 15 mg PO TID JOSE Stop: 12/20/18 13:59 Clonazepam (Klonopin) 0.25 mg PO DAILY PRN PRN Reason: Anxiety Stop: 12/19/18 08:59 Last Admin: 11/19/18 12:55 Dose: 0.25 mg Documented by: Clozapine (Clozapine) 200 mg PO HS JOSE Stop: 12/18/18 20:59 Last Admin: 11/20/18 20:34 Dose: 200 mg Documented by: Clozapine (Clozaril) 50 mg PO DAILY@1200 JOSE Stop: 12/18/18 11:59 Last Admin: 11/21/18 12:26 Dose: 50 mg Documented by: Clozapine (Clozaril) 25 mg PO HS JOSE Stop: 12/20/18 21:59 Last Admin: 11/20/18 20:33 Dose: 25 mg Documented by: Desmopressin Acetate (Ddavp) 0.2 mg PO HS [facility] Stop: 12/18/18 20:59 Last Admin: 11/20/18 20:34 Dose: 0.2 mg Documented by: Ergocalciferol (Vitamin D2) 50,000 units PO Q30D@0900 [facility] Stop: 12/30/18 08:59 Escitalopram Oxalate (Lexapro) 20 mg PO DAILY [facility] Stop: 12/18/18 08:59 Last Admin: 11/21/18 08:39 Dose: 20 mg Documented by: Estradiol (Estrace) 1 mg PO QAM [facility] Stop: 12/18/18 08:59 Last Admin: 11/21/18 08:38 Dose: 1 mg Documented by: Hydroxyzine HCl (Vistaril) 25 mg PO Q4H PRN PRN Reason: Anxiety Stop: 12/17/18 21:09 Last Admin: 11/20/18 11:06 Dose: 25 mg Documented by: Hydroxyzine HCl (Vistaril) 50 mg PO HSZ PRN PRN Reason: Insomnia Stop: 12/17/18 21:09 [facility]) [facility] Stop: 12/18/18 08:59 Last Admin: 11/21/18 08:38 Dose: 200 mg Documented by: Levothyroxine Sodium (Synthroid) 125 mcg PO DAILYBB [facility] Stop: 12/18/18 07:59 Last Admin: 11/21/18 08:37 Dose: 125 mcg Documented by: Loperamide HCl (Imodium) 2 mg PO PRN PRN PRN Reason: Diarrhea Stop: 12/18/18 13:25 Losartan Potassium (Cozaar) 50 mg PO QAM [facility] Stop: 12/18/18 08:59 Last Admin: 11/21/18 08:38 Dose: 50 mg Documented by: Magnesium Hydroxide (Milk Of Magnesia) 30 ml PO DAILY PRN PRN Reason: Heartburn Stop: 12/17/18 21:09 Metformin HCl (Glucophage) 1,000 mg PO BIDM [facility] Stop: 12/18/18 08:59 Last Admin: 11/21/18 08:38 Dose: 1,000 mg Documented by: Montelukast Sodium (Singulair) 10 mg PO DAILY [facility] Stop: 12/18/18 08:59 Last Admin: 11/21/18 08:39 Dose: 10 mg Documented by: Sodium Chloride (Dukes Nasal) 1 - 2 sprays NA PRN PRN PRN Reason: Nasal Dryness/Congestion Stop: 12/17/18 21:09 Trazodone HCl (Desyrel) 100 mg PO HS JOSE Stop: 12/18/18 20:59 Last Admin: 11/20/18 20:34 Dose: 100 mg Documented by: Vitamin D (Vitamin D3) 1,000 units PO DAILY JOSE Stop: 12/18/18 08:59 Last Admin: 11/21/18 08:39 Dose: 1,000 units Documented by: Post Discharge Appointments Primary Care Physician Name Of Family Doctor: [place]. [place], [facility] [place]iatrist Name of Psychiatrist: Dr. Urbina, [facility] Date of Appointment with Psychiatrist: 12/01/18 Time of Appointment with Psychiatrist: 3pm Psychiatric Appointment Comment: [address], [place] [address] - Ramiro will accompany to appt Therapist Name of Therapist: Lamar Miller, [facility] Date of Therapist Appointment: 11/27/18 Time of Therapist Appointment: 2pm Therapy Appointment Comment: [address], [place] [address] - also appt on 12/11 and 12/18 Pattern Generator Operator Name of Pattern Generator Operator: Constantino Thomason Date of Appointment with Pattern Generator Operator: 12/02/18 Time of Appointment with Pattern Generator Operator: 2:30pm Partial or Psych Rehab Name of Partial or Psych Rehab: [facility] Contact Information Discharge Discharge Address: [address] [place], [place] [address], [place] [address] CPT Code CPT Code 68420
[2018-11-21] MEDS: cloZAPine 100 MG TAB PO SCH (21:05)
[2018-11-21] MEDS: TRAZODONE HCL 100 MG TAB PO SCH (21:05)
[2018-11-21] MEDS: ATORVASTATIN 20 MG TAB PO SCH (21:06)
[2018-11-21] MEDS: DESMOPRESSIN ACETATE 0.1 MG TAB PO SCH (21:06)
[2018-11-22] MEDS: LEVOTHYROXINE SODIUM 125 MCG TABLET PO SCH (07:57)
[2018-11-22] MEDS: lamoTRIgine 100 MG TAB PO SCH (07:58)
[2018-11-22] MEDS: BUSPIRONE HCL 7.5 MG TAB PO SCH ×3 (07:58→21:17)
[2018-11-22] MEDS: LOSARTAN POTASSIUM 50 MG TAB PO SCH (07:59)
[2018-11-22] MEDS: MONTELUKAST SODIUM 10 MG TABLET PO SCH (07:59)
[2018-11-22] MEDS: METFORMIN HCL 500 MG TAB PO SCH ×2 (07:59→17:08)
[2018-11-22] MEDS: ESTRADIOL 1 MG TAB PO SCH (07:59)
[2018-11-22] MEDS: CHOLECALCIFEROL 1,000 UNITS TAB PO SCH (07:59)
[2018-11-22] MEDS: ESCITALOPRAM OXALATE 20 MG TAB PO SCH (07:59)
--- NOTE | 2018-11-22 11:55 | Psychiatric Progress Note ---
Date of Service November 22, 2018 Impression / Recommendations Impression 48-year-old single female with a long history of severe and persistent mental illness, diagnosed with schizoaffective disorder depressive type, anxiety, and likely a personality disorder component as well, who has had numerous hospitalizations and is admitted voluntarily with worsening mood, anxiety, and suicidal thoughts with a plan to overdose in the context of multiple losses. Her most recent trigger was that her parents birthdays and Father's Day. She lives independently and has many mental health services as detailed above. Clozapine has been helpful for her schizoaffective disorder, and buspi laquita was recently added for anxiety - titrated to a dose of 15mg TID. She remains reluctant to discontinue clonazepam entirely, and until buspirone titration is prove to be effect, will continue one dose of 0.25mg daily as needed. She verbalizes ongoing SI and continued auditory hallucinations of her grandfather's voice instructing her to kill herself. As anxiety and mood are improving, distress associated with auditory hallucinations is also reduced and she is expressing increasing readiness for discharge. (1) Suicidal ideation: 11/18 -continue inpatient treatment. -Suicide checks for safety. -Work on healthy coping skills and discharge safety plan. Patient has chronic suicidal ideation, typically with a plan to overdose. She lives alone, and has not been willing to allow someone else to hold her medications and dispense them to her daily. She does have a lock box in which she keeps her medications, but she is able to access it whenever she wants. 11/19 - Ongoing verbalization of SI, reporting now worse than at time of admission - Today is mother's birthday, anniversary of which contributed to need for admission 11/20 - Reports suicidality today, ongoing auditory hallucinations instructing her to kill herself 11/21 -Reports ongoing command hallucinations to kill herself however seemingly a little more confident in her ability to cope today 11/22 -Appears much more confident in her ability to cope with chronic auditory hallucinations today (2) Schizoaffective disorder, depressive type: 11/18 -continue clozapine 25 mg every morning, 50 mg q. noon, and 225 mg at bedtime. She is getting CBC with differential every 2 weeks, and as she had one yesterday on admission, will be due for the next one on 12/01/2018. -FLP and FG were performed 09/29/2018, notable for elevated triglycerides 185 and glucose 137. Hemoglobin A1c on 08/11/2018 was elevated at 6.7, with an estimated average glucose 146. -Continue trazodone 100 mg at bedtime for sleep, and lamotrigine 200 mg every morning. -Encourage group attendance and participation, work on healthy coping skills, and involve outpatient supports ([facility] visiting today). -Coordinate care with outpatient therapist, Lamar Miller. 11/19 - Continue current medication regimen unchanged - Encouraged participation in group programming - Offer any needed encouragement today, as is her mother's birthday 11/20 - Outpatient records suggest outpatient clozapine dosing was 50mg @1200 and 225mg qHS - pt requesting for ordered 25mg AM dose to be discontinued. No evidence that an adjustment was recommended to this regimen, so will return to outpatient scheduling as above. - Continue to offer encouragement and encourage participation in groups 11/21 -Continue treatment plan unchanged 11/22 -Patient may be considered for discharge tomorrow at her request if she remains stable over the next 24 hours (3) Anxiety: 11/18 -patient with generalized and social anxiety. Continue home dose of buspirone, consider dose increase. Continue home dose of clonazepam 0.25 mg daily as needed, which has very slowly been tapered down with a plan to discontinue. -Work on coping strategies for managing anxiety. 11/19 - Reviewed coping strategies - Consider need for titration of buspirone, though patient has been able to tolerate gradual taper of clonazepam - she feels she would benefit from multiple daily doses to manage anxiety 11/20 - Increase buspirone to 15mg TID starting today, will continue prn use of clonazepam .25mg daily until efficacy of dose change is determined 11/21 -Tolerated dose escalation of BuSpar. Continue unchanged -Continue therapeutic milieu 11/22 -Anxiety continues to improve without further intervention (4) Hypertension: 11/18 -continue home dose of losartan. Was hypertensive in the ER yesterday, but blood pressure has normalized, may have been anxiety induced. (5) Dyslipidemia: 11/18 -continue Lipitor. (6) Hypothyroidism: 11/18 -TSH normal, continue home dose of levothyroxine. (7) Type 2 diabetes mellitus: 11/18 -diabetic diet, continue home dose of metformin. (8) Morbid obesity with BMI of 50.0-59.9, adult: 11/18 -encourage daily exercise and healthy diet. Although clozapine has a risk of weight gain and metabolic syndrome, it is also one of the few medications that has been beneficial and well-tolerated for her severe psychiatric symptoms, and the benefits likely outweigh the risks. (9) Abnormal findings on microbiological examination of urine: 11/19 - Abnormal urinalysis in ED, sent for culture - patient denying any symptoms suggestive of a UTI - Culture showed growth of klebsiella pneumoniae, presently asymptomatic - If symptoms should develop, would benefit from initiation of treatment, sensitivities provided Inventory Assets Strengths: Engaged and compliant with treatment, has multiple outpatient services Needs: Processed grief, improved coping skills Risk Factors Assessment 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 a week) Stable Relationships: Yes Supportive Family: Yes (One brother is supportive, has a strained relationship with the other) Good Rapport with Provider: Yes Interval History Identifying Information HOWIE HSU is a 48-year-old F who currently lives in [place] alone, has a history of schizoaffective disorder depressive type, and was admitted on 11/17/18 21:10 on a 201 voluntary commitment for worsening mood and suicidal ideation with a plan to overdose. Chief Complaint "I am only talking fast because I have a lot to say. I am not manic". Review of Systems Sleep Information Total Hours of Sleep: 7.5 Sleep Comments: pt on q-15 minute checks Meal Information Percent Meal Consumed - Breakfast: 100 Percent Meal Consumed - Lunch: 75 Percent Meal Consumed - Dinner: 100 Subjective Subjective Patient was seen & assessed and interval progress reviewed with Treatment Team. Per staff report patient appeared a little less anxious yesterday. Continues to attend groups. Compliant with medications. No acute events overnight. On interview today she reports interval improvement in anxiety. States she hopes to be ready for discharge by tomorrow. She attributes this to reduction in anxiety and improved mood. She describes repeatedly feeling less depressed. D enies feeling euphoric. When increased rate of speech was brought to her attention she attributed this to having a lot she wanted to tell me and acknowledges subjectively feeling like her thoughts are racing a bit however she denies feeling euphoric or overly energized and slept well last night. She denies a history of benny. Auditory hallucinations persist however less distressing and she denies feeling compelled to harm herself. She expresses willingness to continue to comply with outpatient treatment and follow-up. Physical Exam Psychiatric Orientation: cooperative Apperance: + disheveled Eye Contact: good eye contact Motor Behavior: + EPS (Lateral jaw movement again evident); no psychomotor agitation Speech: + pressured speech (Speech is very mildly pressured but not consistently so) Affect: mood congruent with affect Describes feeling less anxious and less depressed. Rates mood 3 out of 10 considering baseline 5 out of 10 Thought Process: goal directed thought process Thought Content: no hopelessness Suicidal Thoughts: denies suicidal thoughts, denies suicidal plan and denies suicidal intent Hallucinations: + auditory hallucinations Insight: + fair insight Judgement: + fair judgement Vital Signs (Past 24 Hours) Last Vital Signs Temp 36.3 C L 11/22/18 06:46 Pulse 103 H 11/22/18 06:47 Resp 18 11/22/18 06:46 BP 141/84 H 11/22/18 06:47 Pulse Ox 99 11/17/18 21:19 Results & Data Laboratory Results Laboratory Results - last 24 hr 11/22/18 07:54 POC Glucose 116 H Current Inpatient Medications Current Inpatient Medications: Current Inpatient Medications Acetaminophen (Tylenol) 650 mg PO Q4H PRN PRN Reason: Headache or Minor Fever Stop: 12/17/18 21:09 Al Hydrox/Mg Hydrox/Simethicone (Maalox) 30 ml PO Q4H PRN PRN Reason: GI Upset Stop: 12/17/18 21:09 Atorvastatin Calcium (Lipitor) 20 mg PO HS JOSE Stop: 12/18/18 20:59 Last Admin: 11/21/18 21:06 Dose: 20 mg Documented by: Buspirone HCl (Buspar) 15 mg PO TID JOSE Stop: 12/20/18 13:59 Last Admin: 11/22/18 07:58 Dose: 15 mg Documented by: Clonazepam (Klonopin) 0.25 mg PO DAILY PRN PRN Reason: Anxiety Stop: 12/19/18 08:59 Last Admin: 11/19/18 12:55 Dose: 0.25 mg Documented by: Clozapine (Clozapine) 200 mg PO HS [facility] Stop: 12/18/18 20:59 Last Admin: 11/21/18 21:05 Dose: 200 mg Documented by: Clozapine (Clozaril) 50 mg PO DAILY@1200 [facility] Stop: 12/18/18 11:59 Last Admin: 11/21/18 12:26 Dose: 50 mg Documented by: Clozapine (Clozaril) 25 mg PO HS [facility] Stop: 12/20/18 21:59 Last Admin: 11/21/18 21:06 Dose: 25 mg Documented by: Desmopressin Acetate (Ddavp) 0.2 mg PO HS [facility] Stop: 12/18/18 20:59 Last Admin: 11/21/18 21:06 Dose: 0.2 mg Documented by: Ergocalciferol (Vitamin D2) 50,000 units PO Q30D@0900 [facility] Stop: 12/30/18 08:59 Escitalopram Oxalate (Lexapro) 20 mg PO DAILY [facility] Stop: 12/18/18 08:59 Last Admin: 11/22/18 07:59 Dose: 20 mg Documented by: Estradiol (Estrace) 1 mg PO QAM [facility] Stop: 12/18/18 08:59 Last Admin: 11/22/18 07:59 Dose: 1 mg Documented by: Hydroxyzine HCl (Vistaril) 25 mg PO Q4H PRN PRN Reason: Anxiety Stop: 12/17/18 21:09 Last Admin: 11/20/18 11:06 Dose: 25 mg Documented by: Hydroxyzine HCl (Vistaril) 50 mg PO HSZ PRN PRN Reason: Insomnia Stop: 12/17/18 21:09 Lamotrigine (Lamictal) 200 mg PO QAM [facility] Stop: 12/18/18 08:59 Last Admin: 11/22/18 07:58 Dose: 200 mg Documented by: Levothyroxine Sodium (Synthroid) 125 mcg PO DAILYBB [facility] Stop: 12/18/18 07:59 Last Admin: 11/22/18 07:57 Dose: 125 mcg Documented by: Loperamide HCl (Imodium) 2 mg PO PRN PRN PRN Reason: Diarrhea Stop: 12/18/18 13:25 Losartan Potassium (Cozaar) 50 mg PO QAM [facility] Stop: 12/18/18 08:59 Last Admin: 11/22/18 07:59 Dose: 50 mg Documented by: Magnesium Hydroxide (Milk Of Magnesia) 30 ml PO DAILY PRN PRN Reason: Heartburn Stop: 12/17/18 21:09 Metformin HCl (Glucophage) 1,000 mg PO BIDM JOSE Stop: 12/18/18 08:59 Last Admin: 11/22/18 07:59 Dose: 1,000 mg Documented by: Montelukast Sodium (Singulair) 10 mg PO DAILY JOSE Stop: 12/18/18 08:59 Last Admin: 11/22/18 07:59 Dose: 10 mg Documented by: Sodium Chloride ([place] Nasal) 1 - 2 sprays NA PRN PRN PRN Reason: Nasal Dryness/Congestion Stop: 12/17/18 21:09 Trazodone HCl (Desyrel) 100 mg PO HS JOSE Stop: 12/18/18 20:59 Last Admin: 11/21/18 21:05 Dose: 100 mg Documented by: Vitamin D (Vitamin D3) 1,000 units PO DAILY JOSE Stop: 12/18/18 08:59 Last Admin: 11/22/18 07:59 Dose: 1,000 units Documented by: Post Discharge Appointments Primary Care Physician Name Of Family Doctor: Dr. Tam, [facility] [place] Primary Care Psychiatrist Name of Psychiatrist: Dr. Urbina, [facility] Psychiatrist's Date of Appointment with Psychiatrist: 12/01/18 Time of Appointment with Psychiatrist: 3pm Psychiatric Appointment Comment: [address], [place] [address] - Ramiro will accompany to appt Therapist Name of Therapist: Lamar Miller, [facility] Therapist's Date of Therapist Appointment: 11/27/18 Time of Therapist Appointment: 2pm Therapy Appointment Comment: [address], [place] [address] - also appt on 12/11 and 12/18 Block And Case Maker Name of Block And Case Maker: Constantino Thomason Date of Appointment with Block And Case Maker: 12/02/18 Time of Appointment with Block And Case Maker: 2:30pm Partial or Psych Rehab Name of Partial or Psych Rehab: [facility] Contact Information Discharge Discharge Address: [address], [place] [address] CPT Code CPT Code 70206
[2018-11-22] MEDS: cloZAPine 25 MG TAB PO SCH ×2 (12:33→21:18)
[2018-11-22] MEDS: TRAZODONE HCL 100 MG TAB PO SCH (21:18)
[2018-11-22] MEDS: cloZAPine 100 MG TAB PO SCH (21:18)
[2018-11-22] MEDS: DESMOPRESSIN ACETATE 0.1 MG TAB PO SCH (21:18)
[2018-11-22] MEDS: ATORVASTATIN 20 MG TAB PO SCH (21:18)
[2018-11-23] MEDS: LEVOTHYROXINE SODIUM 125 MCG TABLET PO SCH (09:25)
[2018-11-23] MEDS: BUSPIRONE HCL 7.5 MG TAB PO SCH (09:25)
[2018-11-23] MEDS: METFORMIN HCL 500 MG TAB PO SCH (09:26)
[2018-11-23] MEDS: lamoTRIgine 100 MG TAB PO SCH (09:26)
[2018-11-23] MEDS: ESCITALOPRAM OXALATE 20 MG TAB PO SCH (09:26)
[2018-11-23] MEDS: LOSARTAN POTASSIUM 50 MG TAB PO SCH (09:26)
[2018-11-23] MEDS: ESTRADIOL 1 MG TAB PO SCH (09:26)
[2018-11-23] MEDS: CHOLECALCIFEROL 1,000 UNITS TAB PO SCH (09:26)
[2018-11-23] MEDS: MONTELUKAST SODIUM 10 MG TABLET PO SCH (09:27)
--- NOTE | 2018-11-23 09:32 | Discharge Summary ---
Date of Service November 23, 2018 History of Present Illness The patient is well-known to me as I have seen her in my outpatient practice since June 2018, and prior to that from multiple inpatient hospitalizations. She lives independently in [place], and has numerous support services. She was last on our unit in 2018 for 8 days for depression and suicidality after her father . During that hospitalization, her clozapine was increased to target auditory hallucinations, and she was continued on her other home medications including clonazepam as needed, trazodone, lamotrigine, desmopressin, metformin, and escitalopram. She has followed up regularly since discharge, seeing this physician every 2 weeks, her therapist weekly, and multiple other support services as below. She has continued to struggle with grief, low mood, and anxiety, but had been able to reduce her clonazepam to 0.25 mg once a day over the past few months. Buspirone was started in September for anxiety, and she reported it was beneficial. Her mood and anxiety symptoms have been exacerbated since the deaths of her parents - mother in 06/2016, and father in 08/2018. She was hospitalized here in January 2018 and then again in August 2018, and then returned to OP care. She presented yesterday for her regularly scheduled appointment along with her patient case manager and reported worsening mood and anxiety, with suicidal thoughts and a plan to overdose on her medications. She was unable to contract for safety or develop a safety plan, and agreed to come to the hospital for admission. She reported difficulty functioning, due to severe anxiety when trying, causing her to miss work and taoism multiple times since her last hospitalization. Sleep has been excessive, at least 12 hours/night, and napping during the day. SI is daily, "pretty much all the time," she has access to many prescription medications at home. She does not feel safe outside the hospital. She reports "bad" anxiety, feeling "like I'm gonna " when she leaves her house. Denies full panic symptoms, but feels fearful and tense. Avoids people, has been skipping activities such as taoism. She has a fairly regular weekly schedule: Friday she works at [employer] [facility] for 2 hours, Friday she meets with her mobile worker and every other Friday has appointments with this physician, Friday she meets with her patient case manager, she meets with her peer support, and Friday she has therapy. Sometimes she and her mobile worker will go to [employer] On the weekends she often attends taoism, but hasn't been going recently due to feeling depressed and anxious. She has a friend Jd that she gets together with regularly to watch TV or go out to eat, and sometimes socializes with people in her taoism. She has looked into grief groups and is hoping to attend one at her taoism, but no start date has been given yet, and is not sure if it will actually happen. She previously had services through [facility], but their services and she doesn't think it was very helpful as "I'm good about taking my meds." She reports auditory hallucinations of her grandfather's voice telling her to hurt herself and that she's better off . She reports they are "bearable," and is primarily concerned about her anxiety and depression. She reports good medication compliance. Her blood pressure was elevated in the emergency room, initially 182/101, but has decreased and has been within normal limits since last evening. Laboratory data notable for low sodium 131, low chloride 97, normal TSH, low hemoglobin and hematocrit, and drug screen negative. UAPositive for nitrite, 1+ leukocyte esterase, 10-30 white blood cells, 20-30 epithelial cells, and 3+ bacteria. Physical Exam Psychiatric Orientation: alert, oriented x 3 and cooperative Apperance: appropriately dressed and appeared stated age Eye Contact: good eye contact Motor Behavior: steady gait and station (slowed gait, walks with cane) and no abnormal motor movements Speech: normal rate/rhythm/volume of speech Affect: euthymic affect and mood congruent with affect "Good, better." Thought Process: goal directed thought process Thought Content: reality based without delusions Suicidal Thoughts: denies suicidal thoughts Homicidal Thoughts: denies homicidal thoughts Hallucinations: + auditory hallucinations; no visual hallucinations Cognition: recent memory grossly intact, attention grossly intact and language grossly intact Insight: + fair insight Judgement: + fair judgement Vital Signs (Past 24 Hours) Last Vital Signs Temp 36.6 C 11/23/18 06:54 Pulse 97 H 11/23/18 06:55 Resp 18 11/23/18 06:54 BP 132/79 11/23/18 06:55 Pulse Ox 99 11/17/18 21:19 Principal Diagnosis Schizoaffective disorder, depressed type Psychiatric Data The patient was hospitalized on our unit for 6 days. She was continued on her home doses of clozapine, trazodone, and lamotrigine. Buspirone was increased to 15 mg 3 times daily to target anxiety, and she reported good effect. She was continued on clonazepam 0.25 mg daily as needed for anxiety, but did not utilize it, and it was discontinued at discharge per her request. She had been slowly tapering off this medication over a number of months. She processed her stressors, including her parent's birthdays both of which are in the month of October, and the recent Father's Day holiday. She attended and participated in groups and therapy, and met with her outpatient BCM on the unit. Her command auditory hallucinations of her grandfather's voice telling her to hurt herself and her suicidal thoughts to overdose both decreased in frequency and intensity throughout the course of her stay. She had hypertension in the ER, which resolved upon admission and she was continued on her home medication. She spoke with her brother, Shon, who agreed to pay for a home health aide all the patient is awaiting approval of her waiver application. She felt this would be very beneficial for her in adding to her outpatient supports. Day of Discharge Assessment Staff report the patient has demonstrated improvement in mood and anxiety, is denying suicidal thoughts, and reporting readiness for discharge to home. On my assessment, she reports mood is "much better," which she attributes to lessening anxiety. She continues to hear auditory hallucinations of her grandfather's voice telling her to hurt herself, but states it is less frequent and much quieter, and she feels able to ignore it. She denies any thoughts, plan, or intent to harm herself. She is able to review her coping skills and discharge safety plan, and has made plans for each day of the week involving her supports and outpatient treatment providers. She is looking forward to going home, and is requesting discharge today. She denies side effects to medications, and states that she has not had clonazepam in days, and feels ready to discontinue it. Transition of Care Transition Of Care Record: was reviewed with the patient Advance Directives Advance Directives Information Provided: Yes Advance Directives: Yes Mental Health Advance Directive: No Advance Directives on File: No Power of Interventionist: Yes Power of Interventionist Name: Shon navarro Power of Interventionist Advance Directives Reason:: Declines as Mental Health Visit. Risk Factors Assessment Risk factors were mitigated by admission to the inpatient unit, adjusting medications to target anxiety and mood symptoms, involving her in groups and therapy, involving her outpatient treatment providers for coordination of care, exploring ways to increase her support services at home, and working on healthy coping skills and her discharge safety plan. She is endorsing improved mood and auditory hallucinations, decreased anxiety, and resolution of suicidal thoughts. She is completing ADLs independently, eating and sleeping, and is future oriented. She is requesting discharge, and as she is no longer at acute risk of harm to herself, can be managed as an outpatient at this time. She does not have risk factors indicating increased risk of harm to others. 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 a week) Stable Relationships: Yes Supportive Family: Yes (One brother is supportive, has a strained relationship with the other) Good Rapport with Provider: Yes Tobacco Cessation at Discharge Tobacco Cessation Medication Prescribed at Discharge: Not Applicable/Non-Smoker Total Time Total Time Spent: Greater Than 30 Minutes Total Time Includes: Examination of the patient, Discharge Planning and Medication Reconciliation Discharge Data Lab Results 11/17/18 11/17/18 11/17/18 17:04 17:04 17:04 WBC 9.76 RBC 4.53 Hgb 11.4 L Hct 34.7 L MCV 76.6 L MCH 25.2 MCHC 32.9 RDW Std Deviation 41.9 RDW Coeff of Bret 15.0 H Plt Count 218 MPV 8.5 Immature Gran % (Auto) 0.1 Neut % (Auto) 75.7 Lymph % (Auto) 19.0 Randolph % (Auto) 5.2 Eos % (Auto) 0.0 Baso % (Auto) 0.0 Immature Gran # (Auto) 0.01 Neut # (Auto) 7.39 H Lymph # (Auto) 1.85 Randolph # (Auto) 0.51 Eos # (Auto) 0.00 Baso # (Auto) 0.00 Sodium 131 L Potassium 4.1 Chloride 97 L Carbon Dioxide 26 Anion Gap 8.0 BUN 8 Creatinine 0.61 Est Cr Clr Drug Dosing Not Reportable Est GFR ( Amer) 122.5 Est GFR (Non-Af Amer) 105.7 BUN/Creatinine Ratio 12.6 Glucose 100 H POC Glucose Calcium 8.6 Total Bilirubin 0.3 AST 14 L ALT 21 Alkaline Phosphatase 110 Total Protein 7.1 Albumin 3.5 Globulin 3.6 Albumin/Globulin Ratio 1.0 TSH 1.140 Urine Color Urine Appearance Urine pH Ur Specific [place] Urine Protein Urine Glucose (UA) Urine Ketones Urine Blood Urine Nitrite Urine Bilirubin Urine Urobilinogen Ur Leukocyte Esterase Urine WBC (Auto) Urine RBC (Auto) U Hyaline Cast (Auto) U Epithel Cells (Auto) Urine Bacteria (Auto) Urine Test Salicylates < 1.7 L Urine Opiates Screen Ur Methadone, Qual Acetaminophen < 2 L Urine Barbiturates Lamotrigine Ur Phencyclidine (PCP) U Amphetamin/Meth Scrn MDMA (Ecstasy) Screen U Benzodiazepines Scrn Ur Cocaine Metabolite U Marijuana (THC) Screen Ethyl Alcohol mg/dL 11/17/18 11/17/18 11/17/18 17:04 17:04 18:00 WBC RBC Hgb Hct MCV MCH MCHC RDW Std Deviation RDW Coeff of Bret Plt Count MPV Immature Gran % (Auto) Neut % (Auto) Lymph % (Auto) Randolph % (Auto) Eos % (Auto) Baso % (Auto) Immature Gran # (Auto) Neut # (Auto) Lymph # (Auto) Randolph # (Auto) Eos # (Auto) Baso # (Auto) Sodium Potassium Chloride Carbon Dioxide Anion Gap BUN Creatinine Est Cr Clr Drug Dosing Est GFR ( Amer) Est GFR (Non-Af Amer) BUN/Creatinine Ratio Glucose POC Glucose Calcium Total Bilirubin AST ALT Alkaline Phosphatase Total Protein Albumin Globulin Albumin/Globulin Ratio TSH Urine Color Urine Appearance Urine pH Ur Specific [place] Urine Protein Urine Glucose (UA) Urine Ketones Urine Blood Urine Nitrite Urine Bilirubin Urine Urobilinogen Ur Leukocyte Esterase Urine WBC (Auto) Urine RBC (Auto) U Hyaline Cast (Auto) U Epithel Cells (Auto) Urine Bacteria (Auto) Urine Test Salicylates Urine Opiates Screen Neg Ur Methadone, Qual Neg Acetaminophen Urine Barbiturates Neg Lamotrigine 2.1 L Ur Phencyclidine (PCP) Neg U Amphetamin/Meth Scrn Neg MDMA (Ecstasy) Screen Neg U Benzodiazepines Scrn Neg Ur Cocaine Metabolite Neg U Marijuana (THC) Screen Neg Ethyl Alcohol mg/dL < 3.0 11/17/18 11/17/18 11/18/18 18:00 18:00 08:09 WBC RBC Hgb Hct MCV MCH MCHC RDW Std Deviation RDW Coeff of Bret Plt Count MPV Immature Gran % (Auto) Neut % (Auto) Lymph % (Auto) Randolph % (Auto) Eos % (Auto) Baso % (Auto) Immature Gran # (Auto) Neut # (Auto) Lymph # (Auto) Randolph # (Auto) Eos # (Auto) Baso # (Auto) Sodium Potassium Chloride Carbon Dioxide Anion Gap BUN Creatinine Est Cr Clr Drug Dosing Est GFR ( Amer) Est GFR (Non-Af Amer) BUN/Creatinine Ratio Glucose POC Glucose 127 H Calcium Total Bilirubin AST ALT Alkaline Phosphatase Total Protein Albumin Globulin Albumin/Globulin Ratio TSH Urine Color Yellow Urine Appearance Clear Urine pH 6.0 Ur Specific [place] 1.007 Urine Protein Negative Urine Glucose (UA) Negative Urine Ketones Negative Urine Blood Negative Urine Nitrite Positive A Urine Bilirubin Negative Urine Urobilinogen Negative Ur Leukocyte Esterase 1+ H Urine WBC (Auto) 10-30 H Urine RBC (Auto) 0-4 U Hyaline Cast (Auto) 1-5 U Epithel Cells (Auto) 20-30 H Urine Bacteria (Auto) 3+ H Urine Test Negative Salicylates Urine Opiates Screen Ur Methadone, Qual Acetaminophen Urine Barbiturates Lamotrigine Ur Phencyclidine (PCP) U Amphetamin/Meth Scrn MDMA (Ecstasy) Screen U Benzodiazepines Scrn Ur Cocaine Metabolite U Marijuana (THC) Screen Ethyl Alcohol mg/dL 11/19/18 11/20/18 11/21/18 08:01 08:06 08:14 WBC RBC Hgb Hct MCV MCH MCHC RDW Std Deviation RDW Coeff of Bret Plt Count MPV Immature Gran % (Auto) Neut % (Auto) Lymph % (Auto) Randolph % (Auto) Eos % (Auto) Baso % (Auto) Immature Gran # (Auto) Neut # (Auto) Lymph # (Auto) Randolph # (Auto) Eos # (Auto) Baso # (Auto) Sodium Potassium Chloride Carbon Dioxide Anion Gap BUN Creatinine Est Cr Clr Drug Dosing Est GFR ( Amer) Est GFR (Non-Af Amer) BUN/Creatinine Ratio Glucose POC Glucose 122 H 115 H 132 H Calcium Total Bilirubin AST ALT Alkaline Phosphatase Total Protein Albumin Globulin Albumin/Globulin Ratio TSH Urine Color Urine Appearance Urine pH Ur Specific [place] Urine Protein Urine Glucose (UA) Urine Ketones Urine Blood Urine Nitrite Urine Bilirubin Urine Urobilinogen Ur Leukocyte Esterase Urine WBC (Auto) Urine RBC (Auto) U Hyaline Cast (Auto) U Epithel Cells (Auto) Urine Bacteria (Auto) Urine Test Salicylates Urine Opiates Screen Ur Methadone, Qual Acetaminophen Urine Barbiturates Lamotrigine Ur Phencyclidine (PCP) U Amphetamin/Meth Scrn MDMA (Ecstasy) Screen U Benzodiazepines Scrn Ur Cocaine Metabolite U Marijuana (THC) Screen Ethyl Alcohol mg/dL 11/22/18 11/23/18 07:54 08:18 WBC RBC Hgb Hct MCV MCH MCHC RDW Std Deviation RDW Coeff of Bret Plt Count MPV Immature Gran % (Auto) Neut % (Auto) Lymph % (Auto) Randolph % (Auto) Eos % (Auto) Baso % (Auto) Immature Gran # (Auto) Neut # (Auto) Lymph # (Auto) Randolph # (Auto) Eos # (Auto) Baso # (Auto) Sodium Potassium Chloride Carbon Dioxide Anion Gap BUN Creatinine Est Cr Clr Drug Dosing Est GFR ( Amer) Est GFR (Non-Af Amer) BUN/Creatinine Ratio Glucose POC Glucose 116 H 123 H Calcium Total Bilirubin AST ALT Alkaline Phosphatase Total Protein Albumin Globulin Albumin/Globulin Ratio TSH Urine Color Urine Appearance Urine pH Ur Specific [place] Urine Protein Urine Glucose (UA) Urine Ketones Urine Blood Urine Nitrite Urine Bilirubin Urine Urobilinogen Ur Leukocyte Esterase Urine WBC (Auto) Urine RBC (Auto) U Hyaline Cast (Auto) U Epithel Cells (Auto) Urine Bacteria (Auto) Urine Test Salicylates Urine Opiates Screen Ur Methadone, Qual Acetaminophen Urine Barbiturates Lamotrigine Ur Phencyclidine (PCP) U Amphetamin/Meth Scrn MDMA (Ecstasy) Screen U Benzodiazepines Scrn Ur Cocaine Metabolite U Marijuana (THC) Screen Ethyl Alcohol mg/dL Hospital Course (1) Suicidal ideation: 11/18 -continue inpatient treatment. -Suicide checks for safety. -Work on healthy coping skills and discharge safety plan. Patient has chronic suicidal ideation, typically with a plan to overdose. She lives alone, and has not been willing to allow someone else to hold her medications and dispense them to her daily. She does have a lock box in which she keeps her medications, but she is able to access it whenever she wants. 11/19 - Ongoing verbalization of SI, reporting now worse than at time of admission - Today is mother's birthday, anniversary of which contributed to need for admission 11/20 - Reports suicidality today, ongoing auditory hallucinations instructing her to kill herself 11/21 -Reports ongoing command hallucinations to kill herself however seemingly a little more confident in her ability to cope today 11/22 -Appears much more confident in her ability to cope with chronic auditory hallucinations today (2) Schizoaffective disorder, depressive type: 11/18 -continue clozapine 25 mg every morning, 50 mg q. noon, and 225 mg at bedtime. She is getting CBC with differential every 2 weeks, and as she had one yesterday on admission, will be due for the next one on 12/01/2018. -FLP and FG were performed 09/29/2018, notable for elevated triglycerides 185 and glucose 137. Hemoglobin A1c on 08/11/2018 was elevated at 6.7, with an estimated average glucose 146. -Continue trazodone 100 mg at bedtime for sleep, and lamotrigine 200 mg every morning. -Encourage group attendance and participation, work on healthy coping skills, and involve outpatient supports (BCM visiting today). -Coordinate care with outpatient therapist, Lamar Miller. 11/19 - Continue current medication regimen unchanged - Encouraged participation in group programming - Offer any needed encouragement today, as is her mother's birthday 11/20 - Outpatient records suggest outpatient clozapine dosing was 50mg @1200 and 225mg qHS - pt requesting for ordered 25mg AM dose to be discontinued. No evidence that an adjustment was recommended to this regimen, so will return to outpatient scheduling as above. - Continue to offer encouragement and encourage participation in groups 11/21 -Continue treatment plan unchanged 11/22 -Patient may be considered for discharge tomorrow at her request if she remains stable over the next 24 hours (3) Anxiety: 11/18 -patient with generalized and social anxiety. Continue home dose of buspirone, consider dose increase. Continue home dose of clonazepam 0.25 mg daily as needed, which has very slowly been tapered down with a plan to discontinue. -Work on coping strategies for managing anxiety. 11/19 - Reviewed coping strategies - Consider need for titration of buspirone, though patient has been able to tolerate gradual taper of clonazepam - she feels she would benefit from multiple daily doses to manage anxiety 11/20 - Increase buspirone to 15mg TID starting today, will continue prn use of clonazepam .25mg daily until efficacy of dose change is determined 11/21 -Tolerated dose escalation of BuSpar. Continue unchanged -Continue therapeutic milieu 11/22 -Anxiety continues to improve without further intervention (4) Hypertension: 11/18 -continue home dose of losartan. Was hypertensive in the ER yesterday, but blood pressure has normalized, may have been anxiety induced. (5) Dyslipidemia: 11/18 -continue Lipitor. (6) Hypothyroidism: 11/18 -TSH normal, continue home dose of levothyroxine. (7) Type 2 diabetes mellitus: 11/18 -diabetic diet, continue home dose of metformin. (8) Morbid obesity with BMI of 50.0-59.9, adult: 11/18 -encourage daily exercise and healthy diet. Although clozapine has a risk of weight gain and metabolic syndrome, it is also one of the few medications that has been beneficial and well-tolerated for her severe psychiatric symptoms, and the benefits likely outweigh the risks. (9) Abnormal findings on microbiological examination of urine: 11/19 - Abnormal urinalysis in ED, sent for culture - patient denying any symptoms suggestive of a UTI - Culture showed growth of klebsiella pneumoniae, presently asymptomatic - If symptoms should develop, would benefit from initiation of treatment, sensitivities provided Post Discharge Appointments Primary Care Physician Name Of Family Doctor: [place]. [place], [facility] [place] Appointment Comment: Follow up as needed Primary Care Release of Information: Obtained, Reviewed and Signed Psychiatrist Name of Psychiatrist: Dr. Urbina, [facility] Date of Appointment with Psychiatrist: 11/26/18 Time of Appointment with Psychiatrist: 3:30 p.m. Psychiatric Appointment Comment: [address], [place] [id number] - Ramiro will accompany to appt Psychiatrist Release of Information: Obtained, Reviewed and Signed Therapist Name of Therapist: Lamar Miller [facility] Date of Therapist Appointment: 11/27/18 Time of Therapist Appointment: 2pm Therapy Appointment Comment: [address], [place] [address] - also appt on 12/11 and 12/18 Therapist Release of Information: Obtained, Reviewed and Signed Manager Community Relations Name of Manager Community Relations: Constantino Thomason Phone Number for Manager Community Relations: [phone] Date of Appointment with Manager Community Relations: 12/02/18 Time of Appointment with Manager Community Relations: 2:30pm Manager Community Relations Release of Information: Obtained, Reviewed and Signed Partial or Psych Rehab Name of Partial or Psych Rehab: [facility] Phone Number of Partial or Psych Rehab: [phone] Partial or Psych Rehab Appointment Comment: Follow up as needed/per your schedule Release of Information for Partial or Psych Rehab: Obtained, Reviewed and Signed Smoking Cessation Counseling Tobacco Cessation Medication Prescribed at Discharge: Not Applicable/Non-Smoker Contact Information Discharge Discharge Address: [address] [place] [address], [place] [address] Discharge Plan Discharge Items Patient Disposition: Home - Self-Care Reason For Visit: SUICIDAL IDEATION,SCHIZOAFFECTIVE DO Discharge Diagnosis: schizoaffective disorder, depressed type Discharge Goals: Improve disease control, Improve function and Learn about illness Activity: Per 'Additional Instructions' section Non-emergency contact: Primary Care Provider, Psychiatrist, Therapist and Spool Tender Call non-emergency contact if: you have any medication questions and your symptoms worsen Follow-up/Referrals: Niles Tam MD [Primary Care Provider] - Diet: Carb Consistent or DM2 Addtl Provider Instructions: SPECIAL CARE INSTRUCTIONS: 1. Follow through with your scheduled aftercare appointments. If unable to keep an appointment, please call to reschedule. 2. Take your medication only as prescribed. Medication should not be changed or stopped without the approval of your doctor. In the event of worsening symptoms or concerns about side effects, contact your doctor immediately. 3. Utilize new healthy coping skills, anger management skills, and stress management skills learned during your hospitalization. Journal feelings and process them with a support person. Identify stressors or situations that may result in relapse, deterioration or inappropriate behaviors and develop a plan to deal with those issues. 4. If your coping skills are ineffective and you are in crisis, contact your outpatient providers for direction. If unable to reach your providers, please call the CAN HELP LINE AT or go to the closest Emergency Room. 5. Avoid alcohol and un-prescribed drugs. 6. You have been provided with the Mental Health Advance Directives Pamphlet for your review. AFTERCARE APPOINTMENTS: * Please call your insurance company prior to your scheduled appointment to confirm your aftercare providers are covered. Take your insurance information to your appointments. WHO TO CALL AND WHEN: Medical Emergencies: For questions or emergencies related to your hospital stay, please contact the Inpatient Behavioral Health Unit at [phone]. A day treatment clinician/art therapist is on-call 23/12 for the Behavioral Health Unit for emergencies At any time you feel your situation is an emergency, you may also call 911 immediately. Your Doctors Instructions noted above were prepared by provider Archana Urbina MD. Prescriptions: Continued montelukast [Singulair] 10 mg tablet 10 mg PO DAILY 90 Days Qty: 90 RF: 0 clozapine 100 mg tablet 2 tab PO HS RF: 0 cholecalciferol (vitamin D3) [Vitamin D3] 1,000 unit capsule 1 tab PO DAILY RF: 0 trazodone tablet 100 mg PO HS RF: 0 clozapine [Clozaril] 25 mg Tablet 25 mg PO UD Qty: 45 RF: 0 losartan [Cozaar] 50 mg tablet 50 mg PO QAM RF: 0 metformin [Glucophage] 500 mg tablet 1,000 mg PO BID RF: 0 atorvastatin [Lipitor] 20 mg tablet 20 mg PO HS RF: 0 lamotrigine [Lamictal] 200 mg tablet 200 mg PO QAM RF: 0 desmopressin 0.2 mg Tablet 0.2 mg PO HS RF: 0 estradiol [Estrace] 1 mg tablet 1 mg PO QAM RF: 0 levothyroxine [Synthroid] 125 mcg tablet 125 mcg PO QAM RF: 0 ergocalciferol (vitamin D2) [Vitamin D2] 50,000 unit Capsule 50,000 unit PO MONTHLY RF: 0 escitalopram oxalate [Lexapro] 20 mg tablet 20 mg PO DAILY RF: 0 Changed buspirone 15 mg tablet 15 mg PO TID Qty: 90 RF: 0 Discontinued clonazepam 0.5 mg Tablet 0.25 mg PO DAILY RF: 0 Stand-Alone Forms: [facility] Discharge Orders: Discharge Order (Routine); Ordered 11/23/18 Ordered By: Archana Urbina Admission Data Admit Date/Time: 11/17/18 21:10 Attending Provider: Archana Urbina Admit Provider: Archana Urbina Primary Care Provider: Niles Tam Service: Psychiatry Other Interventions: PSY Interdisciplinary Discharge Planning Last Done: 11/23/18 08:52 Pending Studies at Discharge: No
[2018-11-30] MEDS ORDERED: ERGOCALCIFEROL 50,000 UNITS CAP PO SCH (09:00)
== END 2018-11-23 11:39 | disposition home or self-care (01) | DRG 885 ==
LOC: ED 16:05 → 3S 21:10

== ENCOUNTER 2019-03-10 16:55 | Inpatient (IN) ==
[2019-03-10 18:21] LABS: Hematocrit (blood only) 33.5 % (37-47); Hemoglobin 11.1 g/dL (12.0-16.0); Immature Granulocytes # (auto) 0.02 K/uL (0.00-0.02); Immature Granulocytes % (auto) 0.2 %; Lymphocytes # (auto) 1.76 K/uL (1.2-3.4); Mean Corpuscular Hemoglobin 25.4 pg (25-34); Mean Corpuscular Hgb Conc 33.1 g/dL (32-36); Mean Corpuscular Volume 76.7 fL (80-100); Mean Platelet Volume 8.1 fL (7.4-10.4); Monocytes # (auto) 0.56 K/uL (0.11-0.59); Monocytes % (auto) 5.7 %; Neutrophils # (auto) 7.46 K/uL (1.4-6.5); Neutrophils % (auto) 76.1 %; Platelet Count 200 K/uL (130-400); RDW Coefficient of Variation 15.9 % (11.5-14.5); RDW Standard Deviation 44.4 fL (36.4-46.3); Red Blood Count 4.37 M/uL (4.2-5.4)
[2019-03-10 18:38] LABS: Appearance Urine Clear (Clear); Bacteria Urine Automated 3+ (Negative); Bilirubin Urine Negative (Negative); Blood Urine Trace (Negative); Color Urine Yellow; Epithelial Cell Urine Auto >30 /lpf (0-5); Glucose Urine UA Negative (Negative); Ketones Urine Negative (Negative); Leukocyte Esterase Urine 1+ (Negative); Nitrite Urine Negative (Negative); Protein Urine Negative (Negative); RBC Urine Automated 0-4 /hpf (0-4); Specific Gravity Urine 1.009 (1.000-1.030); Urobilinogen Urine Negative (Negative); pH Urine 5.5 (4.5-7.5)
[2019-03-10 18:44] LABS: BUN Creatinine Ratio 11.6 (10-20); Calcium 8.8 mg/dl (8.5-10.1); Creatinine Clr Calc Pharmacy 144.4 ml/min; Est GFR (Non-African American) 103.5; Potassium 4.1 mmol/L (3.5-5.1)
[2019-03-10 18:45] LABS: Albumin Level 3.4 gm/dl (3.4-5.0)
[2019-03-10 18:46] LABS: Acetaminophen < 2 ug/ml (10-30); Salicylate < 1.7 mg/dl (2.8-20)
[2019-03-10 18:48] LABS: Amphetamines+Metham, Urine Neg (Neg); Barbiturates, Urine Neg (Neg); Benzodiazepine, Urine Neg (Neg); Cocaine, Urine Neg (Neg); MDMA (Ecstacy), Urine Neg (Neg); Methadone, Urine Neg (Neg); Opiate, Urine Neg (Neg); Phencyclidine, Urine Neg (Neg)
[2019-03-10 18:55] LABS: Albumin Globulin Ratio 0.9 (0.9-2); Bilirubin,Total 0.3 mg/dl (0.2-1); Globulin 3.6 gm/dl (2.5-4.0); Thyroid Stimulating Hormone 1.74 uIu/ml (0.300-4.500)
[2019-03-10] MEDS ORDERED: METFORMIN HCL 500 MG TAB PO STA (19:54)
--- NOTE | 2019-03-10 20:13 | Emergency Department Note ---
Entered by Dorothy Coffman acting as a scribe for Luis Santiago History of Present Illness General Chief complaint: Mental Health Evaluation Stated complaint: MENTAL HEALTH EVAL Time Seen by Provider: 03/10/19 17:49 History of Present Illness Provider complaint: mental health evaluation Onset (ago): unknown Location: head Quality: + other (mental health evaluation) Associated symptoms: + denies other symptoms (feeling guilty, changes in appe tite, access to weapons or guns, homicidal ideation) and + other (really dep ressed, feels like she is losing everyone, hopeless, helpless, "no reason to be alive", crying a lot, angry at everything going on, sleeping more, losing interest in hobbies, less energetic, difficulty concentrating) Treatments prior to arrival: none The patient is a 48 year old female who presents to the ED for a mental health evaluation. The patient states that she is really depressed because she feels like she is losing everyone. The patient states that both of her parents recently and all of her other resources, such as her manager location, are leaving. The patient notes that her mother was the only person who understood her. The patient states that she feels hopeless and helpless. The patient states that she has no reason to be alive, but denies suicidal ideation. The patient states that she has been crying a lot recently and she is angry at everything going on. The patient states that she is sleeping more than usual, she is losing interest in hobbies, she is less energetic and she has had difficulty concentrating. The patient denies homicidal ideation, feelings of guilt and changes in her appetite. The patient states that she does not have access to weapons or guns. The patient denies taking any treatments prior to arrival. Home Medications Home Medications Medication Instructions Recorded Confirmed Type atorvastatin [Lipitor] 20 mg PO HS 02/25/18 03/10/19 History desmopressin 0.2 mg PO HS 02/25/18 03/10/19 History escitalopram oxalate [Lexapro] 20 mg PO DAILY 02/25/18 03/10/19 History estradiol [Estrace] 1 mg PO QAM 02/25/18 03/10/19 History lamotrigine [Lamictal] 200 mg PO QAM 02/25/18 03/10/19 History losartan [Cozaar] 50 mg PO QAM 02/25/18 03/10/19 History levothyroxine 125 mcg tablet 125 mcg PO DAILY #90 tab 12/21/18 03/10/19 Rx clonazepam 0.5 mg tablet 0.5 mg PO BID PRN tab 01/11/19 03/10/19 History buspirone 10 mg tablet 20 mg PO TID tab 01/22/19 03/10/19 History clozapine 25 mg tablet 50 mg PO DAILYBL tab 01/22/19 03/10/19 History cholecalciferol (vitamin D3) 1,000 1,000 units PO DAILY #12 cap 02/02/19 03/10/19 Rx unit capsule ergocalciferol (vitamin D2) 50,000 50,000 unit PO MONTHLY #12 cap 02/03/19 Rx unit capsule metformin 500 mg tablet 1,000 mg PO BID #360 tab 02/08/19 03/10/19 Rx clozapine 200 mg disintegrating 225 mg PO HS tab 02/15/19 03/10/19 History tablet trazodone 100 mg tablet 100 mg PO HS PRN tab 02/15/19 03/10/19 History montelukast 10 mg tablet 10 mg PO QPM #90 tab 02/18/19 03/10/19 Rx Allergies Allergy/AdvReac Type Severity Reaction Status Date / Time prednisone Allergy Severe hallucinati Verified 02/22/19 14:25 ons chlorpromazine Allergy Mild LIGHTHEADED Verified 02/22/19 14:25 SHUFFLING GAIT aspirin Allergy Unknown Unknown Verified 02/22/19 14:25 doxycycline Allergy Unknown HEARING Unverified 02/22/19 14:25 VOICES, depression levofloxacin Allergy Unknown ?ALLERGIC Verified 02/22/19 14:25 TO LEVAQUIN? NSAIDS (Non-Steroidal Allergy Unknown . Verified 02/22/19 14:25 Anti-Inflamma onion Allergy Unknown VOMITING Unverified 02/22/19 14:25 Penicillins Allergy Unknown RASH, Verified 02/22/19 14:25 nausea and vomitting quinine Allergy Unknown Unknown Verified 02/22/19 14:25 theophylline [From Matias-Dur] AdvReac Verified 02/22/19 14:25 Past Med/Surg History Social History Preferred Language: Vincentian Communication Ability: Effective Visual Impairment: No Limitations Hearing Ability: Normal Financial Director Required: No Beliefs That Will Affect Care: None marital status: Single Current Living Situation: Alone current occupational status: employed Feels Safe at Home: Yes Smoking Status: Former smoker Tobacco Type: cigarettes ; Second Hand Exposure: No ; Hx Alcohol Use: No Hx Substance Use: No Seatbelt Use: always Review of Systems See HPI for pertinent positives & negatives. and A total of 10 systems reviewed and were otherwise negative Physical Exam Vital Signs Vital Signs - 24 hr 03/10/19 17:13 03/10/19 19:59 03/10/19 20:47 Temperature 37.0 C 37.0 C 36.8 C Temperature Source Oral Oral Oral Sepsis Recent Fever Within 48 Hours No Sepsis New/Unexplained Change in Mental Status No Sepsis Action Taken by Nursing No Action Required Pulse Rate 115 H Pulse Rate [Left Finger] 98 H 94 H Respiratory Rate 16 16 16 Respiratory Effort / Characteristics Non-Labored Spontaneous Non-Labored Spontaneous Non-Labored Spontaneous Blood Pressure 171/109 H Blood Pressure [Right Arm] 139/98 135/90 Blood Pressure Mean 129 Blood Pressure Mean [Right Arm] 111 105 Blood Pressure Position Sitting Pulse Oximetry 95 95 95 Oxygen Delivery Method Room Air Room Air Room Air GENERAL: She is oriented to person, place, and time. She appears well-developed and well-nourished. She does not appear distressed. HENT: Exam performed. \\[id number] Head: Normocephalic and atraumatic. \\[id number] Right Ear: External ear normal. No mastoid tenderness. \\[id number] Left Ear: External ear normal. No mastoid tenderness. \\[id number] Mouth/Throat: The oropharynx is clear and moist. No trismus in the jaw. No dental abscesses or uvula swelling. No oropharyngeal exudate or tonsillar abscesses. EYES: Conjunctivae and EOM are normal. Pupils are equal, round, and reactive to light. Right eye exhibits no discharge. Left eye exhibits no discharge. No scleral icterus. NECK: Normal range of motion. Neck supple. No JVD present. No spinous process tenderness present. No carotid bruit present. No rigidity. No tracheal deviation and normal range of motion present. No Brudzinski's sign and no Kernig's sign noted. CV: Normal rate, regular rhythm, normal heart sounds and intact distal pulses. There is no peripheral edema. Palpable radial pulses bue. PULM/CHEST: Effort normal and breath sounds normal. No respiratory distress. No stridor. She has no wheezes. She has no rales. Chest Wall: She exhibits no tenderness. ABD: The abdomen is soft. Bowel sounds are normal. She has no distension. No mass is present. There is no tenderness. There is no rebound, no guarding, no Rock's sign and no tenderness at McBurney's point. Rovsig negative MUSC/SKEL: Normal range of motion. There is no peripheral edema, tenderness or deformity. LYMPH: No cervical adenopathy. NEURO: She is alert and oriented to person, place, and time. She has normal strength. No cranial nerve deficit or sensory deficit. Coordination and gait normal. GCS eye subscore is 4. GCS verbal subscore is 5. GCS motor subscore is 6. cerebellar tests wnl. SKIN: Skin is warm and dry. She is not diaphoretic. PSYCH: Depressed and tearful. Course 1825: Past medical records reviewed. The patient was evaluated in room A8. A complete history and physical exam was performed. 2012: Vital signs stable. Patient medically cleared cleared awaiting psychiatric evaluation and placement. Administered Medications Atorvastatin Calcium (Lipitor) 20 mg PO HS [facility] Stop: 04/09/19 21:59 Last Admin: 03/10/19 22:51 Dose: 20 mg Documented by: [id number] Buspirone HCl (Buspar) 20 mg PO TID JOSE Stop: 04/09/19 20:59 Last Admin: 03/10/19 22:52 Dose: 20 mg Documented by: [id number] Clozapine (Clozapine) 200 mg PO HS [facility] Stop: 04/09/19 22:14 Last Admin: 03/10/19 22:49 Dose: 200 mg Documented by: [id number] Clozapine (Clozaril) 25 mg PO [facility] Stop: 04/09/19 21:59 Last Admin: 03/10/19 22:50 Dose: 25 mg Documented by: [id number] Desmopressin Acetate (Ddavp) 0.2 mg PO [facility] Stop: 04/09/19 21:59 Last Admin: 03/10/19 22:50 Dose: 0.2 mg Documented by: [id number] Montelukast Sodium (Singulair) 10 mg PO QPM JOSE Stop: 04/09/19 20:59 Last Admin: 03/10/19 22:52 Dose: 10 mg Documented by: [id number] Discontinued Medications Metformin HCl (Glucophage) 1,000 mg PO NOW STA Stop: 03/10/19 19:55 Last Admin: 03/10/19 20:08 Dose: 1,000 mg Documented by: [id number] Medical Decision Making Medical Records Attestation: I reviewed the patient's medical records. Home Medications Current Medication List: was personally reviewed by me Laboratory Data Attestation: I reviewed the patient's lab results. Result diagrams: 03/10/19 18:07 03/10/19 18:07 Lab Results 03/10/19 03/10/19 03/10/19 Range/Units 18:07 18:07 18:07 WBC 9.80 (4.8-10.8) K/uL RBC 4.37 (4.2-5.4) M/uL Hgb 11.1 L (12.0-16.0) g/dL Hct 33.5 L (37-47) % MCV 76.7 L (80-100) fL MCH 25.4 (25-34) pg MCHC 33.1 (32-36) g/dL RDW Std Deviation 44.4 (36.4-46.3) fL RDW Coeff of Bret 15.9 H (11.5-14.5) % Plt Count 200 (130-400) K/uL MPV 8.1 (7.4-10.4) fL Immature Gran % (Auto) 0.2 % Neut % (Auto) 76.1 % Lymph % (Auto) 18.0 % [place] % (Auto) 5.7 % Eos % (Auto) 0.0 % Baso % (Auto) 0.0 % Immature Gran # (Auto) 0.02 (0.00-0.02) K/uL Neut # (Auto) 7.46 H (1.4-6.5) K/uL Lymph # (Auto) 1.76 (1.2-3.4) K/uL [place] # (Auto) 0.56 (0.11-0.59) K/uL Eos # (Auto) 0.00 (0-0.5) K/uL Baso # (Auto) 0.00 (0-0.2) K/uL Sodium 134 L (136-145) mmol/L Potassium 4.1 (3.5-5.1) mmol/L Chloride 98 (98-107) mmol/L Carbon Dioxide 25 (21-32) mmol/L Anion Gap 11.0 (3-11) BUN 8 (7-18) mg/dl Creatinine 0.65 (0.6-1.2) mg/dl Est Cr Clr Drug Dosing 144.4 ml/min Est GFR ( Amer) 120.0 Est GFR (Non-Af Amer) 103.5 BUN/Creatinine Ratio 11.6 (10-20) Glucose 129 H (70-99) mg/dl Calcium 8.8 (8.5-10.1) mg/dl Total Bilirubin 0.3 (0.2-1) mg/dl AST 7 L (15-37) U/L ALT 17 (12-78) U/L Alkaline Phosphatase 110 (45-117) U/L Total Protein 7.0 (6.4-8.2) gm/dl Albumin 3.4 (3.4-5.0) gm/dl Globulin 3.6 (2.5-4.0) gm/dl Albumin/Globulin Ratio 0.9 (0.9-2) TSH 1.740 (0.300-4.500) uIu/ml Urine Color Urine Appearance (Clear) Urine pH (4.5-7.5) Ur Specific [place] (1.000-1.030) Urine Protein (Negative) Urine Glucose (UA) (Negative) Urine Ketones (Negative) Urine Blood (Negative) Urine Nitrite (Negative) Urine Bilirubin (Negative) Urine Urobilinogen (Negative) Ur Leukocyte Esterase (Negative) Urine WBC (Auto) (0-5) /hpf Urine RBC (Auto) (0-4) /hpf U Hyaline Cast (Auto) (0-5) /lpf U Epithel Cells (Auto) (0-5) /lpf Urine Bacteria (Auto) (Negative) Salicylates < 1.7 L (2.8-20) mg/dl Urine Opiates Screen (Neg) Ur Methadone, Qual (Neg) Acetaminophen < 2 L (10-30) ug/ml Urine Barbiturates (Neg) Ur Phencyclidine (PCP) (Neg) U Amphetamin/Meth Scrn (Neg) MDMA (Ecstasy) Screen (Neg) U Benzodiazepines Scrn (Neg) Ur Cocaine Metabolite (Neg) U Marijuana (THC) Screen (Neg) Ethyl Alcohol mg/dL (0-3) mg/dl 03/10/19 03/10/19 03/10/19 Range/Units 18:07 18:16 18:16 WBC (4.8-10.8) K/uL RBC (4.2-5.4) M/uL Hgb (12.0-16.0) g/dL Hct (37-47) % MCV (80-100) fL MCH (25-34) pg MCHC (32-36) g/dL RDW Std Deviation (36.4-46.3) fL RDW Coeff of Bret (11.5-14.5) % Plt Count (130-400) K/uL MPV (7.4-10.4) fL Immature Gran % (Auto) % Neut % (Auto) % Lymph % (Auto) % [place] % (Auto) % Eos % (Auto) % Baso % (Auto) % Immature Gran # (Auto) (0.00-0.02) K/uL Neut # (Auto) (1.4-6.5) K/uL Lymph # (Auto) (1.2-3.4) K/uL [place] # (Auto) (0.11-0.59) K/uL Eos # (Auto) (0-0.5) K/uL Baso # (Auto) (0-0.2) K/uL Sodium (136-145) mmol/L Potassium (3.5-5.1) mmol/L Chloride (98-107) mmol/L Carbon Dioxide (21-32) mmol/L Anion Gap (3-11) BUN (7-18) mg/dl Creatinine (0.6-1.2) mg/dl Est Cr Clr Drug Dosing ml/min Est GFR ( Amer) Est GFR (Non-Af Amer) BUN/Creatinine Ratio (10-20) Glucose (70-99) mg/dl Calcium (8.5-10.1) mg/dl Total Bilirubin (0.2-1) mg/dl AST (15-37) U/L ALT (12-78) U/L Alkaline Phosphatase (45-117) U/L Total Protein (6.4-8.2) gm/dl Albumin (3.4-5.0) gm/dl Globulin (2.5-4.0) gm/dl Albumin/Globulin Ratio (0.9-2) TSH (0.300-4.500) uIu/ml Urine Color Yellow Urine Appearance Clear (Clear) Urine pH 5.5 (4.5-7.5) Ur Specific [place] 1.009 (1.000-1.030) Urine Protein Negative (Negative) Urine Glucose (UA) Negative (Negative) Urine Ketones Negative (Negative) Urine Blood Trace H (Negative) Urine Nitrite Negative (Negative) Urine Bilirubin Negative (Negative) Urine Urobilinogen Negative (Negative) Ur Leukocyte Esterase 1+ H (Negative) Urine WBC (Auto) 10-30 H (0-5) /hpf Urine RBC (Auto) 0-4 (0-4) /hpf U Hyaline Cast (Auto) 1-5 (0-5) /lpf U Epithel Cells (Auto) >30 H (0-5) /lpf Urine Bacteria (Auto) 3+ H (Negative) Salicylates (2.8-20) mg/dl Urine Opiates Screen Neg (Neg) Ur Methadone, Qual Neg (Neg) Acetaminophen (10-30) ug/ml Urine Barbiturates Neg (Neg) Ur Phencyclidine (PCP) Neg (Neg) U Amphetamin/Meth Scrn Neg (Neg) MDMA (Ecstasy) Screen Neg (Neg) U Benzodiazepines Scrn Neg (Neg) Ur Cocaine Metabolite Neg (Neg) U Marijuana (THC) Screen Neg (Neg) Ethyl Alcohol mg/dL < 3.0 (0-3) mg/dl Blood Pressure Blood Pressure Findings: Elevated blood pressure Blood Pressure Disposition: further management by hospitalist MDM Narrative Patient admitted for inpatient psychiatric treatment. Impression & Plan Depression Discharge Plan Visit Data *Final* Discharge Date/Time: 03/10/19 20:48 Chief Complaint: Mental Health Evaluation Stated Complaint: MENTAL HEALTH EVAL ED Provider: Luis Santiago Discharge Problem: Depression Patient Disposition: Admitted As Inpatient Discharge Instructions Interventions: ED Discharge Assessment Last Done: 03/10/19 20:48 Discharge Problem: Depression Qualifiers: Depression Type: unspecified Qualified Code(s): F32.9 - Major depressive d isorder, single episode, unspecified The scribe's documentation has been prepared under my direction and personally reviewed by me in its entirety. I confirm that the note above accurately reflects all work, treatment, procedures, and medical decision making performed by me.
[2019-03-10] MEDS ORDERED: ALUMINUM/MAGNESIUM SUSP 30 ML UDC PO PRN (20:38)
[2019-03-10] MEDS ORDERED: MAGNESIUM HYDROXIDE SUSP 30 ML UDC PO PRN (20:38)
[2019-03-10] MEDS ORDERED: ACETAMINOPHEN 325 MG TAB PO PRN (20:38)
[2019-03-10] MEDS ORDERED: SODIUM CHLORIDE 0.65% NA SOLN 45 ML (OCEAN) PRN (20:38)
[2019-03-10] MEDS ORDERED: TRAZODONE HCL 100 MG TAB PO PRN (20:42)
[2019-03-10] MEDS ORDERED: NON-FORMULARY MEDICATION (Clozapine 200 MG) PO SCH (21:00)
[2019-03-10] MEDS: cloZAPine 100 MG TAB PO SCH (22:49)
[2019-03-10] MEDS: cloZAPine 25 MG TAB PO SCH (22:50)
[2019-03-10] MEDS: DESMOPRESSIN ACETATE 0.1 MG TAB PO SCH (22:50)
[2019-03-10] MEDS: ATORVASTATIN 20 MG TAB PO SCH (22:51)
[2019-03-10] MEDS: MONTELUKAST SODIUM 10 MG TABLET PO SCH (22:52)
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
[2019-03-11] MEDS: LEVOTHYROXINE SODIUM 125 MCG TABLET PO SCH (08:12)
[2019-03-11] MEDS: METFORMIN HCL 500 MG TAB PO SCH ×2 (08:12→17:24)
[2019-03-11] MEDS: LOSARTAN POTASSIUM 50 MG TAB PO SCH (08:12)
[2019-03-11] MEDS: ESCITALOPRAM OXALATE 20 MG TAB PO SCH (08:12)
[2019-03-11] MEDS: CHOLECALCIFEROL 1,000 UNITS TAB PO SCH (08:12)
[2019-03-11] MEDS: lamoTRIgine 100 MG TAB PO SCH (08:12)
[2019-03-11] MEDS: estradioL 1 MG TAB PO SCH (08:12)
[2019-03-11] MEDS: cloZAPine 25 MG TAB PO SCH ×2 (11:52→20:54)
[2019-03-11] MEDS: clonazePAM 0.5 MG TAB PO PRN ×2 (13:11→20:21)
[2019-03-11] MEDS: MONTELUKAST SODIUM 10 MG TABLET PO SCH (20:22)
[2019-03-11] MEDS: DESMOPRESSIN ACETATE 0.1 MG TAB PO SCH (20:54)
[2019-03-11] MEDS: cloZAPine 100 MG TAB PO SCH (20:54)
[2019-03-11] MEDS: ATORVASTATIN 20 MG TAB PO SCH (20:54)
[2019-03-12] MEDS: LOSARTAN POTASSIUM 50 MG TAB PO SCH (08:10)
[2019-03-12] MEDS: LEVOTHYROXINE SODIUM 125 MCG TABLET PO SCH (08:10)
[2019-03-12] MEDS: estradioL 1 MG TAB PO SCH (08:10)
[2019-03-12] MEDS: METFORMIN HCL 500 MG TAB PO SCH ×2 (08:11→17:37)
[2019-03-12] MEDS: CHOLECALCIFEROL 1,000 UNITS TAB PO SCH (08:13)
[2019-03-12] MEDS: lamoTRIgine 100 MG TAB PO SCH (08:13)
[2019-03-12] MEDS: ESCITALOPRAM OXALATE 20 MG TAB PO SCH (08:13)
--- NOTE | 2019-03-12 09:40 | Psychiatric Progress Note ---
Date of Service March 12, 2019 Impression / Recommendations Sathish Brewer is a 48-year-old single female who lives alone in [place], has a history of schizoaffective disorder depressive type, PETROS, panic disorder, dependent and borderline personality traits, and multiple medical problems, has extensive outpatient mental health services but frequent hospitalizations due to depression. She has been reporting worsening depression for the past 5 days, which worsened acutely after learning yesterday that her disease case manager rn is leaving his position and she will need to be assigned a new disease case manager rn. She often becomes depressed and suicidal when she feels abandoned by others, and relies heavily on her mental health clinicians to meet her needs. She does have some support from friends and family, and we should endeavor to involve them in her treatment and strength in those relationships, as well as exploring ways to better address her chronic depression and suicidality. She would be appropriate for DBT, but does not have access to it locally. She is also considering another course of TMS, which was helpful in the past. Inpatient treatment is necessary due to the severity of her symptoms and risk for suicide if discharged. (1) Suicidal ideation: 03/11 -continue voluntary hospitalization, every 15 minute checks for safety, participation in groups and therapy, healthy coping skills, and discharge safety planning. 03/12 - Continues to verbalize suicidality and inability to contract for safety outside of the hospital setting at this time (2) Schizoaffective disorder, depressive type: 03/11 -continue home medications including clozapine, escitalopram, and lamotrigine. -CBC with differential checked on admission; next due in 2 weeks. Fasting lipid profile 08/2018 normal with the exception of triglycerides 185. Hemoglobin A1c of 11/2018 was elevated at 6.6%. -Encourage her to be out of her bed during the day, actively participating in treatment, and tending to ADLs. -Meeting with outpatient disease case manager rn, consider meeting with brother or local friends. -Care coordinated with her outpatient therapist. Patient may benefit from DBT, but unfortunately it is not available locally. 03/12 - Continue current medication regimen unchanged, as it seems that particular outpatient stressors were likely related to exacerbation of depressive symptoms and suicidality - Continue to encourage group participation (3) Anxiety: 03/11 -continue clonazepam 0.5 mg twice daily as needed. We have long been attempting to get her off of benzodiazepines, but she has only been able to tolerate this briefly before she requests to resume them. We will aim to maintain this dose and not increase it while here. -Patient has cut back on caffeine and encouraged her to continue to avoid caffeine due to risk of exacerbating anxiety. -Work on behavioral techniques for managing anxiety, focus on use of her coping skills. 03/12 - Continue treatment plan as above. Maintain current medication regimen - Will attempt to reduce anxiety related to recent transitions by inviting her new disease case manager rn to meet her on the unit (4) Personality disorder: Borderline and dependent traits. Have recommended DBT, but not available locally. Will coordinate with outpatient therapist regarding any other recommendations. (5) Abnormal findings on microbiological examination of urine: 03/11 -UA notable for trace blood, 1+ leukocyte esterase, 10-30 WBCs, > 30 epithelial cells, 3+ bacteria. She has had cultures positive for Klebsiella pneumoniae on her last 2 hospitalizations. Asymptomatic currently. Follow-up on culture results and treat with antibiotics if indicated. 03/12 - Preliminary urine culture showing growth of Klebsiella pneumoniae - which has been consistent with prior hospitalizations as reported above. Pt remains asymptomatic, and will therefore not begin an antibiotic course at this time - will check for final urine culture results when they arrive. (6) Vitamin D deficiency: Continue vitamin D supplementation. Follow-up with PCP. (7) Dyslipidemia: Continue home dose of Lipitor. (8) Hypertension: Continue home dose of Cozaar (9) Hypothyroidism: 03/11 - Continue levothyroxine; TSH within normal limits. (10) Type 2 diabetes mellitus: Continue Metformin; diabetic diet. Encourage daily exercise and weight loss. Risk Factors Assessment Male: No : Yes Do You Have Access To A Gun?: No Health Problems: Yes Mental Health Diagnoses: Yes Substance Use Disorders: No Previous Attempt: Yes Family History of Suicide: No Previous Psychiatric Hospitalization: Yes Hopelessness: Yes Smoker: No Protective Factors Assessment Rastafarian Beliefs: No : No Responsible for Young Children: No Employed: No (Disability for mental health) Stable Relationships: No Supportive Family: Yes Good Rapport with Provider: Yes Interval History Identifying Information HOWIE HSU is a 48-year-old F who currently lives in [place] alone, has a history of schizoaffective disorder depressive type, PETROS, panic disorder, dependent and borderline personality traits, and was admitted on 03/10/19 21:00 on a 201 voluntary commitment for depression and suicidal ideation. Chief Complaint "Oh, I'm ok. I was hoping to talk to you about some over the counter medication." Review of Systems Notes Constitutional: denied Cardiovascular: denied Respiratory: denied Gastrointestinal: reports recent diarrhea Neurological: denied Psychiatric: denies symptoms other than stated above Total of at least 10 systems reviewed, pertinent positives as above and in HPI. Sleep Information Total Hours of Sleep: 7.75 Sleep Comments: pt on q-15 minute checks Meal Information Percent Meal Consumed - Breakfast: 100 Percent Meal Consumed - Lunch: 100 Percent Meal Consumed - Dinner: 100 Subjective Subjective Patient was seen & assessed and interval progress reviewed with treatment team. Staff reports that the patient continues to appear depressed on the unit. She has been attending most groups with significant encouragement. We will attempt to have her new disease case manager rn meet with her during this hospitalization so they can become better acquainted. Patient did rate her mood being 2.4/10 and "depressed" last evening during community meeting. Patient was seen today to assess progress since admission. She denies significant concerns today, but continues to state that her mood is "like a roller coaster. It is up and down." Patient shares with this provider that she is continuing to experience suicidal ideation, which also varies in severity over the course of the day. Patient shares with this provider that she does believe that her disease case manager rn moving to a different job "came as a surprise, but I do not think that is the biggest thing. I have already met my new disease case manager rn and she seems very nice." Patient shares with this provider that she believes that her biggest stressor at this time is "I miss my mom and dad. I am mad. I do not know if I should be mad at God or just the situation. I do not want to be mad at God. I guess I am just mad. Mad and depressed." Patient does share with this provider that she has been experiencing several episodes of diarrhea, and generally takes Imodium at home, she is requesting as needed medication at this time. Patient shared with this provider various topics that have been just to "help me to beat this depression." The patient states she, along with her brother, has discussed ketamine, TMS, and home health aides with her disease case manager rn as an outpatient providers. She reports that her care team is brainstorming which options to be most beneficial for her at this time. Patient denies any needs at this time. Physical Exam Psychiatric Orientation: alert, oriented x 3 and cooperative (and pleasant) Apperance: appropriately dressed (in sweatshirt and yoga pants), appropriately groomed and appeared stated age Obese, limited hygiene but appears appropriately groomed Eye Contact: good eye contact Motor Behavior: no abnormal motor movements (observed while sitting upright on edge of bed) Speech: normal rate/rhythm/volume of speech (monotone, spontaneous) Affect: + depressed affect, + constricted affect and mood congruent with affect Mood: + depressed mood, + anxious mood and + angry mood ("I'm mad. Not at anyone in particular, just mad. And depressed.") Thought Process: goal directed thought process and clear/coherent thought process Thought Content: + cognitive distortions, + hopelessness and + loneliness Suicidal Thoughts: + reports suicidal thoughts Homicidal Thoughts: denies homicidal thoughts Hallucinations: no auditory hallucinations (no verbalized AH of grandfather) Cognition: recent memory grossly intact, attention grossly intact and language grossly intact Insight: + impaired insight Judgement: + impaired judgement Vital Signs (Past 24 Hours) Last Vital Signs Temp 36.5 C 03/12/19 06:47 Pulse 96 H 03/12/19 06:48 Resp 18 03/12/19 06:47 BP 121/82 03/12/19 06:48 Pulse Ox 95 03/10/19 21:10 Results & Data Laboratory Results Laboratory Results - last 24 hr 03/12/19 07:46 POC Glucose 118 H Current Inpatient Medications Current Inpatient Medications: Current Inpatient Medications Acetaminophen (Tylenol) 650 mg PO Q4H PRN PRN Reason: Headache or Minor Fever Stop: 04/09/19 20:37 Al Hydrox/Mg Hydrox/Simethicone (Maalox) 30 ml PO Q4H PRN PRN Reason: GI Upset Stop: 04/09/19 20:37 Atorvastatin Calcium (Lipitor) 20 mg PO HS JOSE Stop: 04/09/19 21:59 Last Admin: 03/11/19 20:54 Dose: 20 mg Documented by: Buspirone HCl (Buspar) 20 mg PO TID JOSE Stop: 04/09/19 20:59 Last Admin: 03/12/19 08:10 Dose: 20 mg Documented by: Clonazepam (Klonopin) 0.5 mg PO BID PRN PRN Reason: anxiety Stop: 04/09/19 20:41 Last Admin: 03/11/19 20:21 Dose: 0.5 mg Documented by: Clozapine (Clozaril) 50 mg PO DAILY@1200 [facility] Stop: 04/10/19 11:59 Last Admin: 03/11/19 11:52 Dose: 50 mg Documented by: Clozapine (Clozapine) 200 mg PO HS [facility] Stop: 04/09/19 22:14 Last Admin: 03/11/19 20:54 Dose: 200 mg Documented by: Clozapine (Clozaril) 25 mg PO HS [facility] Stop: 04/09/19 21:59 Last Admin: 03/11/19 20:54 Dose: 25 mg Documented by: Desmopressin Acetate (Ddavp) 0.2 mg PO [facility] Stop: 04/09/19 21:59 Last Admin: 03/11/19 20:54 Dose: 0.2 mg Documented by: Ergocalciferol (Vitamin D2) 50,000 units PO Q30D@0900 [facility] Stop: 05/02/19 08:59 Escitalopram Oxalate (Lexapro Tab) 20 mg PO DAILY [facility] Stop: 04/10/19 08:59 Last Admin: 03/12/19 08:13 Dose: 20 mg Documented by: Estradiol (Estrace) 1 mg PO QAM [facility] Stop: 04/10/19 08:59 Last Admin: 03/12/19 08:10 Dose: 1 mg Documented by: Hydroxyzine HCl (Vistaril) 50 mg PO HSZ PRN PRN Reason: Insomnia Stop: 04/09/19 20:37 Hydroxyzine HCl (Vistaril) 25 mg PO Q4H PRN PRN Reason: Anxiety Stop: 04/09/19 20:37 Lamotrigine (Lamictal) 200 mg PO QAM [facility] Stop: 04/10/19 08:59 Last Admin: 03/12/19 08:13 Dose: 200 mg Documented by: Levothyroxine Sodium (Synthroid) 125 mcg PO DAILYBB [facility] Stop: 04/10/19 07:59 Last Admin: 03/12/19 08:10 Dose: 125 mcg Documented by: Losartan Potassium (Cozaar) 50 mg PO QAM [facility] Stop: 04/10/19 08:59 Last Admin: 03/12/19 08:10 Dose: 50 mg Documented by: Magnesium Hydroxide (Milk Of Magnesia) 30 ml PO DAILY PRN PRN Reason: Constipation Stop: 04/09/19 20:37 Metformin HCl (Glucophage) 1,000 mg PO BIDM JOSE Stop: 04/10/19 08:59 Last Admin: 03/12/19 08:11 Dose: 1,000 mg Documented by: Montelukast Sodium (Singulair) 10 mg PO QPM JOSE Stop: 04/09/19 20:59 Last Admin: 03/11/19 20:22 Dose: 10 mg Documented by: Sodium Chloride ([place] Nasal) 1 - 2 sprays NA PRN PRN PRN Reason: Nasal Dryness/Congestion Stop: 04/09/19 20:37 Trazodone HCl (Desyrel) 100 mg PO HS PRN PRN Reason: sleep Stop: 04/09/19 20:41 Vitamin D (Vitamin D3) 1,000 units PO DAILY JOSE Stop: 04/10/19 08:59 Last Admin: 03/12/19 08:13 Dose: 1,000 units Documented by: Mental Health & Subst Abuse Tx Psychiatrist [facility] - Dr. Urbina Psychiatrist's Psychiatric Appointment Comment: [address] [facility] Therapist Name of Therapist: [employer] [facility] Therapist's Therapy Appointment Comment: [address] [facility] Helpdesk Manager Name of Helpdesk Manager: Constantino Perez Phone Number for Helpdesk Manager: [phone] (Sheree) Post Discharge Appointments Primary Care Physician Name Of Family Doctor: [facility] - Dr. Tam Primary Care Provider Appointment Comment: [address], [place] [address] Contact Information Discharge Discharge Address: [address] [place] [address], [place] [address] CPT Code CPT Code 32626
[2019-03-12] MEDS: cloZAPine 25 MG TAB PO SCH ×2 (11:48→21:06)
[2019-03-12] MEDS ORDERED: LOPERAMIDE HCL 2 MG CAP PO PRN (12:33)
[2019-03-12] MEDS: clonazePAM 0.5 MG TAB PO PRN (12:45)
[2019-03-12] MEDS: ATORVASTATIN 20 MG TAB PO SCH (21:06)
[2019-03-12] MEDS: MONTELUKAST SODIUM 10 MG TABLET PO SCH (21:06)
[2019-03-12] MEDS: DESMOPRESSIN ACETATE 0.1 MG TAB PO SCH (21:06)
[2019-03-12] MEDS: cloZAPine 100 MG TAB PO SCH (21:06)
[2019-03-13] MEDS: LOSARTAN POTASSIUM 50 MG TAB PO SCH (08:17)
[2019-03-13] MEDS: METFORMIN HCL 500 MG TAB PO SCH ×2 (08:17→18:48)
[2019-03-13] MEDS: LEVOTHYROXINE SODIUM 125 MCG TABLET PO SCH (08:17)
[2019-03-13] MEDS: estradioL 1 MG TAB PO SCH (08:17)
[2019-03-13] MEDS: lamoTRIgine 100 MG TAB PO SCH (08:18)
[2019-03-13] MEDS: CHOLECALCIFEROL 1,000 UNITS TAB PO SCH (08:18)
[2019-03-13] MEDS: ESCITALOPRAM OXALATE 20 MG TAB PO SCH (08:18)
--- NOTE | 2019-03-13 08:50 | Psychiatric Progress Note ---
Date of Service March 13, 2019 Impression / Recommendations Sathish Brewer is a 48-year-old single female who lives alone in [place], has a history of schizoaffective disorder depressive type, PETROS, panic disorder, dependent and borderline personality traits, and multiple medical problems, has extensive outpatient mental health services but frequent hospitalizations due to depression. She has been reporting worsening depression for the past 5 days, which worsened acutely after learning yesterday that her caseworker is leaving his position and she will need to be assigned a new caseworker. She often becomes depressed and suicidal when she feels abandoned by others, and relies heavily on her mental health clinicians to meet her needs. She does have some support from friends and family, and we should endeavor to involve them in her treatment and strength in those relationships, as well as exploring ways to better address her chronic depression and suicidality. She would be appropriate for DBT, but does not have access to it locally. She is also considering another course of TMS, which was helpful in the past. Inpatient treatment is necessary due to the severity of her symptoms and risk for suicide if discharged. (1) Suicidal ideation: 03/11 -continue voluntary hospitalization, every 15 minute checks for safety, participation in groups and therapy, healthy coping skills, and discharge safety planning. 03/12 - 03/13 - Continues to verbalize suicidality and inability to contract for safety outside of the hospital setting at this time (2) Schizoaffective disorder, depressive type: 03/11 -continue home medications including clozapine, escitalopram, and lamotrigine. -CBC with differential checked on admission; next due in 2 weeks. Fasting lipid profile 08/2018 normal with the exception of triglycerides 185. Hemoglobin A1c of 11/2018 was elevated at 6.6%. -Encourage her to be out of her bed during the day, actively participating in treatment, and tending to ADLs. -Meeting with outpatient caseworker, consider meeting with brother or local friends. -Care coordinated with her outpatient therapist. Patient may benefit from DBT, but unfortunately it is not available locally. 03/12 - Continue current medication regimen unchanged, as it seems that particular outpatient stressors were likely related to exacerbation of depressive symptoms and suicidality - Continue to encourage group participation 03/13 - Continue treatment plan as above - Explore additional coping strategies patient can complete independently (3) Anxiety: 03/11 -continue clonazepam 0.5 mg twice daily as needed. We have long been attempting to get her off of benzodiazepines, but she has only been able to tolerate this briefly before she requests to resume them. We will aim to maintain this dose and not increase it while here. -Patient has cut back on caffeine and encouraged her to continue to avoid caffeine due to risk of exacerbating anxiety. -Work on behavioral techniques for managing anxiety, focus on use of her coping skills. 03/12 - Continue treatment plan as above. Maintain current medication regimen - Will attempt to reduce anxiety related to recent transitions by inviting her new caseworker to meet her on the unit (4) Personality disorder: Borderline and dependent traits. Have recommended DBT, but not available locally. Will coordinate with outpatient therapist regarding any other recommendations. (5) Abnormal findings on microbiological examination of urine: 03/11 -UA notable for trace blood, 1+ leukocyte esterase, 10-30 WBCs, > 30 epithelial cells, 3+ bacteria. She has had cultures positive for Klebsiella pneumoniae on her last 2 hospitalizations. Asymptomatic currently. Follow-up on culture results and treat with antibiotics if indicated. 03/12 - Preliminary urine culture showing growth of Klebsiella pneumoniae - which has been consistent with prior hospitalizations as reported above. Pt remains asymptomatic, and will therefore not begin an antibiotic course at this time - will check for final urine culture results when they arrive. (6) Vitamin D deficiency: Continue vitamin D supplementation. Follow-up with PCP. (7) Dyslipidemia: Continue home dose of Lipitor. (8) Hypertension: Continue home dose of Cozaar (9) Hypothyroidism: 03/11 - Continue levothyroxine; TSH within normal limits. (10) Type 2 diabetes mellitus: Continue Metformin; diabetic diet. Encourage daily exercise and weight loss. Risk Factors Assessment Male: No : Yes Do You Have Access To A Gun?: No Health Problems: Yes Mental Health Diagnoses: Yes Substance Use Disorders: No Previous Attempt: Yes Family History of Suicide: No Previous Psychiatric Hospitalization: Yes Hopelessness: Yes Smoker: No Protective Factors Assessment Uatsdin Beliefs: No : No Responsible for Young Children: No Employed: No (Disability for mental health) Stable Relationships: No Supportive Family: Yes Good Rapport with Provider: Yes Interval History Identifying Information HWOIE HSU is a 48-year-old F who currently lives in [place] alone, has a history of schizoaffective disorder depressive type, PETROS, panic disorder, dependent and borderline personality traits, and was admitted on 03/10/19 21:00 on a 201 voluntary commitment for depression and suicidal ideation. Chief Complaint "I feel depressed today." Review of Systems Notes Constitutional: reports increased fatigue Cardiovascular: denied Respiratory: denied Gastrointestinal: denied Neurological: denied Psychiatric: denies symptoms other than stated above Total of at least 10 systems reviewed, pertinent positives as above and in HPI. Sleep Information Total Hours of Sleep: 7.5 Sleep Comments: pt on q-15 minute checks Meal Information Percent Meal Consumed - Breakfast: 100 Percent Meal Consumed - Lunch: 100 Percent Meal Consumed - Dinner: 100 Subjective Subjective Patient was seen & assessed and interval progress reviewed with nursing and social work. Staff report the patient has been largely isolative on the unit, staying in her room. She does attend most groups with prompting. Pt rated her mood a 3/10 and "hopeful" at community meeting last evening. Pt was seen today to assess progress since admission. Pt states she is feeling "depressed" today. She reports that in addition to "missing my mom and dad" it is "just a dreary day." Pt shared with this provider yesterday that the weather often affects her mood. Pt spontaneously shares with this provider, "I know I've been laying down a lot, but I sleep a lot because it helps my depression......or maybe it's just a way of escaping." We discussed the difference between sleep that is restorative and gives us additional energy, and sleep that is used to avoid stressors or to escape situations. Pt admits that despite her prior thoughts, it is likely that she is using sleep as an escape for stress. Pt was agreeable to discussing other activities she could use in between groups to limit her time in her room. She shares that she is expecting visitors today, and that she also plans to ride the stationary bike. She also brainstorms asking for a radio or white noise machine. Pt admits to persistent SI, but denies any additional support needed from staff at this time. She denied other needs or physical c oncerns. Physical Exam Psychiatric Orientation: alert, oriented x 3 and cooperative Apperance: appropriately dressed, appropriately groomed and appeared stated age Eye Contact: + fair eye contact Motor Behavior: steady gait and station (slow and cautious, utilizes cane ) Speech: normal rate/rhythm/volume of speech Affect: + depressed affect, + anxious affect and mood congruent with affect Mood: + depressed mood and + anxious mood Thought Process: clear/coherent thought process and + concrete thought process Thought Content: + preoccupation (with missing mother and father), + cognitive distortions, + hopelessness, + loneliness and + self deprecation Suicidal Thoughts: + reports suicidal thoughts Homicidal Thoughts: denies homicidal thoughts Hallucinations: no auditory hallucinations (denies today) Cognition: attention grossly intact and language grossly intact Insight: + limited insight Judgement: + limited judgement Vital Signs (Past 24 Hours) Last Vital Signs Temp 36.6 C 03/13/19 06:51 Pulse 94 H 03/13/19 06:52 Resp 16 03/13/19 06:51 BP 135/81 03/13/19 06:52 Pulse Ox 95 03/10/19 21:10 Results & Data Current Inpatient Medications Current Inpatient Medications: Current Inpatient Medications Acetaminophen (Tylenol) 650 mg PO Q4H PRN PRN Reason: Headache or Minor Fever Stop: 04/09/19 20:37 Al Hydrox/Mg Hydrox/Simethicone (Maalox) 30 ml PO Q4H PRN PRN Reason: GI Upset Stop: 04/09/19 20:37 Atorvastatin Calcium (Lipitor) 20 mg [address] [facility] Stop: 04/09/19 21:59 Last Admin: 03/12/19 21:06 Dose: 20 mg Documented by: Buspirone HCl (Buspar) 20 mg PO TID [facility] Stop: 04/09/19 20:59 Last Admin: 03/13/19 08:17 Dose: 20 mg Documented by: Clonazepam (Klonopin) 0.5 mg PO BID PRN PRN Reason: anxiety Stop: 04/09/19 20:41 Last Admin: 03/12/19 12:45 Dose: 0.5 mg Documented by: Clozapine (Clozaril) 50 mg PO DAILY@1200 [facility] Stop: 04/10/19 11:59 Last Admin: 03/12/19 11:48 Dose: 50 mg Documented by: Clozapine (Clozapine) 200 mg PO [facility] Stop: 04/09/19 22:14 Last Admin: 03/12/19 21:06 Dose: 200 mg Documented by: Clozapine (Clozaril) 25 mg PO [facility] Stop: 04/09/19 21:59 Last Admin: 03/12/19 21:06 Dose: 25 mg Documented by: Desmopressin Acetate (Ddavp) 0.2 mg PO HS [facility] Stop: 04/09/19 21:59 Last Admin: 03/12/19 21:06 Dose: 0.2 mg Documented by: Ergocalciferol (Vitamin D2) 50,000 units PO Q30D@0900 [facility] Stop: 05/02/19 08:59 Escitalopram Oxalate (Lexapro Tab) 20 mg PO DAILY [facility] Stop: 04/10/19 08:59 Last Admin: 03/13/19 08:18 Dose: 20 mg Documented by: Estradiol (Estrace) 1 mg PO QAM [facility] Stop: 04/10/19 08:59 Last Admin: 03/13/19 08:17 Dose: 1 mg Documented by: Hydroxyzine HCl (Vistaril) 50 mg PO HSZ PRN PRN Reason: Insomnia Stop: 04/09/19 20:37 Hydroxyzine HCl (Vistaril) 25 mg PO Q4H PRN PRN Reason: Anxiety Stop: 04/09/19 20:37 Lamotrigine (Lamictal) 200 mg PO QAM [facility] Stop: 04/10/19 08:59 Last Admin: 03/13/19 08:18 Dose: 200 mg Documented by: Levothyroxine Sodium (Synthroid) 125 mcg PO DAILYBB [facility] Stop: 04/10/19 07:59 Last Admin: 03/13/19 08:17 Dose: 125 mcg Documented by: Loperamide HCl (Imodium) 2 mg PO TID PRN PRN Reason: Diarrhea Stop: 04/11/19 12:32 Last Admin: 03/12/19 13:15 Dose: 2 mg Documented by: Losartan Potassium (Cozaar) 50 mg PO QAM [facility] Stop: 04/10/19 08:59 Last Admin: 03/13/19 08:17 Dose: 50 mg Documented by: Magnesium Hydroxide (Milk Of Magnesia) 30 ml PO DAILY PRN PRN Reason: Constipation Stop: 04/09/19 20:37 Metformin HCl (Glucophage) 1,000 mg PO BIDM [facility] Stop: 04/10/19 08:59 Last Admin: 03/13/19 08:17 Dose: 1,000 mg Documented by: Montelukast Sodium (Singulair) 10 mg PO QPM [facility] Stop: 04/09/19 20:59 Last Admin: 03/12/19 21:06 Dose: 10 mg Documented by: Sodium Chloride ([place] Nasal) 1 - 2 sprays NA PRN PRN PRN Reason: Nasal Dryness/Congestion Stop: 04/09/19 20:37 Trazodone HCl (Desyrel) 100 mg PO HS PRN PRN Reason: sleep Stop: 04/09/19 20:41 Vitamin D (Vitamin D3) 1,000 units PO DAILY [facility] Stop: 04/10/19 08:59 Last Admin: 03/13/19 08:18 Dose: 1,000 units Documented by: Mental Health & Subst Abuse Tx Psychiatrist Name of Psychiatrist: [email or web address] - Dr. Urbina Psychiatrist's Date of Appointment with Psychiatrist: 03/23/19 Time of Appointment with Psychiatrist: 2:30pm Psychiatric Appointment Comment: [address] [facility] Therapist Name of Therapist: [facility] - Lamar Miller Therapist's Date of Therapist Appointment: 03/19/19 Time of Therapist Appointment: 2pm Therapy Appointment Comment: [address] [facility] Warm In Name of Warm In: Constantino Rubio/Sheree Phone Number for Warm In: [phone] (Sheree) Case Management Appointment Comment: [id number], [place] [address] Post Discharge Appointments Primary Care Physician Name Of Family Doctor: [facility] - Dr. Tam Primary Care Time of Appointment with PCP: Follow up as needed. Provider Appointment Comment: [address], [place] [address] Partial or Psych Rehab Name of Partial or Psych Rehab: [facility] Phone Number of Partial or Psych Rehab: Partial or Psych Rehab Appointment Comment: [id number], [id number] Contact Information Discharge Discharge Address: [address] [place] [address], [place] [address] CPT Code CPT Code 74497
[2019-03-13] MEDS: cloZAPine 25 MG TAB PO SCH ×2 (12:23→22:53)
[2019-03-13] MEDS: clonazePAM 0.5 MG TAB PO PRN (19:45)
[2019-03-13] MEDS: cloZAPine 100 MG TAB PO SCH (22:52)
[2019-03-13] MEDS: ATORVASTATIN 20 MG TAB PO SCH (22:54)
[2019-03-13] MEDS: DESMOPRESSIN ACETATE 0.1 MG TAB PO SCH (22:54)
[2019-03-13] MEDS: MONTELUKAST SODIUM 10 MG TABLET PO SCH (22:54)
[2019-03-14] MEDS: estradioL 1 MG TAB PO SCH (08:25)
[2019-03-14] MEDS: LOSARTAN POTASSIUM 50 MG TAB PO SCH (08:25)
[2019-03-14] MEDS: METFORMIN HCL 500 MG TAB PO SCH ×2 (08:25→17:55)
[2019-03-14] MEDS: ESCITALOPRAM OXALATE 20 MG TAB PO SCH (08:25)
[2019-03-14] MEDS: LEVOTHYROXINE SODIUM 125 MCG TABLET PO SCH (08:25)
[2019-03-14] MEDS: CHOLECALCIFEROL 1,000 UNITS TAB PO SCH (08:25)
[2019-03-14] MEDS: lamoTRIgine 100 MG TAB PO SCH (08:25)
--- NOTE | 2019-03-14 08:47 | Psychiatric Progress Note ---
Date of Service March 14, 2019 Impression / Recommendations Sathish Brewer is a 48-year-old single female who lives alone in [place], has a history of schizoaffective disorder depressive type, PETROS, panic disorder, dependent and borderline personality traits, and multiple medical problems, has extensive outpatient mental health services but frequent hospitalizations due to depression. She has been reporting worsening depression for the past 5 days, which worsened acutely after learning yesterday that her block and case maker is leaving his position and she will need to be assigned a new block and case maker. She often becomes depressed and suicidal when she feels abandoned by others, and relies heavily on her mental health clinicians to meet her needs. She does have some support from friends and family, and we should endeavor to involve them in her treatment and strength in those relationships, as well as exploring ways to better address her chronic depression and suicidality. She would be appropriate for DBT, but does not have access to it locally. She is also considering another course of TMS, which was helpful in the past. Inpatient treatment is necessary due to the severity of her symptoms and risk for suicide if discharged. (1) Suicidal ideation: 03/11 -continue voluntary hospitalization, every 15 minute checks for safety, participation in groups and therapy, healthy coping skills, and discharge safety planning. 03/12 - 03/14 - Continues to verbalize suicidality and inability to contract for safety outside of the hospital setting at this time (2) Schizoaffective disorder, depressive type: 03/11 -continue home medications including clozapine, escitalopram, and lamotrigine. -CBC with differential checked on admission; next due in 2 weeks. Fasting lipid profile 08/2018 normal with the exception of triglycerides 185. Hemoglobin A1c of 11/2018 was elevated at 6.6%. -Encourage her to be out of her bed during the day, actively participating in treatment, and tending to ADLs. -Meeting with outpatient block and case maker, consider meeting with brother or local friends. -Care coordinated with her outpatient therapist. Patient may benefit from DBT, but unfortunately it is not available locally. 03/12 - Continue current medication regimen unchanged, as it seems that particular outpatient stressors were likely related to exacerbation of depressive symptoms and suicidality - Continue to encourage group participation 03/13 - 03/14 - Continue treatment plan as above - Explore additional coping strategies patient can complete independently (3) Anxiety: 03/11 -continue clonazepam 0.5 mg twice daily as needed. We have long been attempting to get her off of benzodiazepines, but she has only been able to tolerate this briefly before she requests to resume them. We will aim to maintain this dose and not increase it while here. -Patient has cut back on caffeine and encouraged her to continue to avoid caffeine due to risk of exacerbating anxiety. -Work on behavioral techniques for managing anxiety, focus on use of her coping skills. 03/12 - Continue treatment plan as above. Maintain current medication regimen - Will attempt to reduce anxiety related to recent transitions by inviting her new block and case maker to meet her on the unit 03/14 - Pt has been using prn clonazepam at least once daily during this hos pitalization - Continue to encourage development of healthy and effective coping strategies (4) Personality disorder: Borderline and dependent traits. Have recommended DBT, but not available locally. Will coordinate with outpatient therapist regarding any other recommendations. (5) Abnormal findings on microbiological examination of urine: 03/11 -UA notable for trace blood, 1+ leukocyte esterase, 10-30 WBCs, > 30 epithelial cells, 3+ bacteria. She has had cultures positive for Klebsiella pneumoniae on her last 2 hospitalizations. Asymptomatic currently. Follow-up on culture results and treat with antibiotics if indicated. 03/12 - Preliminary urine culture showing growth of Klebsiella pneumoniae - which has been consistent with prior hospitalizations as reported above. Pt remains asymptomatic, and will therefore not begin an antibiotic course at this time - will check for final urine culture results when they arrive. (6) Vitamin D deficiency: Continue vitamin D supplementation. Follow-up with PCP. (7) Dyslipidemia: Continue home dose of Lipitor. (8) Hypertension: Continue home dose of Cozaar (9) Hypothyroidism: 03/11 - Continue levothyroxine; TSH within normal limits. (10) Type 2 diabetes mellitus: Continue Metformin; diabetic diet. Encourage daily exercise and weight loss. Risk Factors Assessment Male: No : Yes Do You Have Access To A Gun?: No Health Problems: Yes Mental Health Diagnoses: Yes Substance Use Disorders: No Previous Attempt: Yes Family History of Suicide: No Previous Psychiatric Hospitalization: Yes Hopelessness: Yes Smoker: No Protective Factors Assessment Restorationism Beliefs: No : No Responsible for Young Children: No Employed: No (Disability for mental health) Stable Relationships: No Supportive Family: Yes Good Rapport with Provider: Yes Interval History Identifying Information HOWIE HSU is a 48-year-old F who currently lives in [place] alone, has a history of schizoaffective disorder depressive type, PETROS, panic disorder, dependent and borderline personality traits, and was admitted on 03/10/19 21:00 on a 201 voluntary commitment for depression and suicidal ideation. Chief Complaint "A little bit better today. Yesterday was bad." Review of Systems Notes Constitutional: denied Cardiovascular: denied Respiratory: denied Gastrointestinal: denied Neurological: denied Psychiatric: denies symptoms other than stated above Total of at least 10 systems reviewed, pertinent positives as above and in HPI. Sleep Information Total Hours of Sleep: 8.5 Sleep Comments: pt on q-15 minute checks Meal Information Percent Meal Consumed - Breakfast: 100 Percent Meal Consumed - Lunch: 100 Percent Meal Consumed - Dinner: 90 Subjective Subjective Patient was seen & assessed and interval progress reviewed with nursing and social work. Staff reports the patient had a difficult day yesterday, after receiving a call from her peers specialist. Patient reported that her peers specialist implied that she needed to "get over" the of her parents. Patient took this advice with difficulty, and inform staff of desire to discontinue peers support services. Patient rated her mood a 2.5/10 last evening. Patient was seen today to assess progress since admission. She states that she is feeling "a little bit better" today, stating that yesterday was a difficult day for her. Patient shares with this provider information from her phone call with her peers specialist. Patient became rather upset when relating this information. She was open to discussing the grief process, and that a grief timeline is different for each person and situation. Patient was praised for the fact that she was able to name multiple supports aside from this operations staff specialist security who have been helpful for her in the past and who she feels continued to be reliable people. Patient states that prior to discharge she would like to formally discontinue operations staff specialist security services, and is requesting help from her block and case maker to do this. Patient feels that she may be ready to leave by mid week, and states she would especially like to be discharged by as she has a therapy appointment Friday afternoon. Patient is unable to contract for safety outside of the hospital at this time, but admits to making improvements and is feeling more comfortable with the idea in the next few days. Patient denies other acute needs or concerns at this time. Physical Exam Psychiatric Orientation: alert, oriented x 3 and cooperative Apperance: appropriately dressed (casually in sweatshirt and gym pants, though shirt is stained), + disheveled (malodorous) and appeared stated age Eye Contact: + fair eye contact Motor Behavior: steady gait and station (ambulates with a cane, shuffling but stable gait) and no abnormal motor movements Speech: normal rate/rhythm/volume of speech Affect: + depressed affect, + anxious affect, + irritable affect (when discussing her concerns about her operations staff specialist security) and mood congruent with affect Mood: + depressed mood ("A little bit better"), + anxious mood and + irritable mood ("I'm just so mad at her [operations staff specialist security] for saying that") Thought Process: goal directed thought process, clear/coherent thought process and + concrete thought process Thought Content: + cognitive distortions, + hopelessness and + loneliness Suicidal Thoughts: + reports suicidal thoughts (remains unable to contract for safety outside of hospital setting) Homicidal Thoughts: denies homicidal thoughts Cognition: attention grossly intact and language grossly intact Insight: + limited insight Judgement: + limited judgement Vital Signs (Past 24 Hours) Last Vital Signs Temp 36.5 C 03/14/19 07:00 Pulse 96 H 03/14/19 07:01 Resp 18 03/14/19 07:00 BP 134/81 03/14/19 07:01 Pulse Ox 95 03/10/19 21:10 Results & Data Laboratory Results Laboratory Results - last 24 hr 03/13/19 08:13 POC Glucose 121 H Current Inpatient Medications Current Inpatient Medications: Current Inpatient Medications Acetaminophen (Tylenol) 650 mg PO Q4H PRN PRN Reason: Headache or Minor Fever Stop: 04/09/19 20:37 Al Hydrox/Mg Hydrox/Simethicone (Maalox) 30 ml PO Q4H PRN PRN Reason: GI Upset Stop: 04/09/19 20:37 Atorvastatin Calcium (Lipitor) 20 mg PO HS JOSE Stop: 04/09/19 21:59 Last Admin: 03/13/19 22:54 Dose: 20 mg Documented by: Buspirone HCl (Buspar) 20 mg PO TID JOSE Stop: 04/09/19 20:59 Last Admin: 03/14/19 08:25 Dose: 20 mg Documented by: Clonazepam (Klonopin) 0.5 mg PO BID PRN PRN Reason: anxiety Stop: 04/09/19 20:41 Last Admin: 03/13/19 19:45 Dose: 0.5 mg Documented by: Clozapine (Clozaril) 50 mg PO DAILY@1200 [facility] Stop: 04/10/19 11:59 Last Admin: 03/13/19 12:23 Dose: 50 mg Documented by: Clozapine (Clozapine) 200 mg PO HS [facility] Stop: 04/09/19 22:14 Last Admin: 03/13/19 22:52 Dose: 200 mg Documented by: Clozapine (Clozaril) 25 mg PO HS [facility] Stop: 04/09/19 21:59 Last Admin: 03/13/19 22:53 Dose: 25 mg Documented by: Desmopressin Acetate (Ddavp) 0.2 mg PO HS [facility] Stop: 04/09/19 21:59 Last Admin: 03/13/19 22:54 Dose: 0.2 mg Documented by: Ergocalciferol (Vitamin D2) 50,000 units PO Q30D@0900 [facility] Stop: 05/02/19 08:59 Escitalopram Oxalate (Lexapro Tab) 20 mg PO DAILY [facility] Stop: 04/10/19 08:59 Last Admin: 03/14/19 08:25 Dose: 20 mg Documented by: Estradiol (Estrace) 1 mg PO QAM [facility] Stop: 04/10/19 08:59 Last Admin: 03/14/19 08:25 Dose: 1 mg Documented by: Hydroxyzine HCl (Vistaril) 50 mg PO HSZ PRN PRN Reason: Insomnia Stop: 04/09/19 20:37 Hydroxyzine HCl (Vistaril) 25 mg PO Q4H PRN PRN Reason: Anxiety Stop: 04/09/19 20:37 Lamotrigine (Lamictal) 200 mg PO QAM [facility] Stop: 04/10/19 08:59 Last Admin: 03/14/19 08:25 Dose: 200 mg Documented by: Levothyroxine Sodium (Synthroid) 125 mcg PO DAILYBB [facility] Stop: 04/10/19 07:59 Last Admin: 03/14/19 08:25 Dose: 125 mcg Documented by: Loperamide HCl (Imodium) 2 mg PO TID PRN PRN Reason: Diarrhea Stop: 04/11/19 12:32 Last Admin: 03/12/19 13:15 Dose: 2 mg Documented by: Losartan Potassium (Cozaar) 50 mg PO QAM JOSE Stop: 04/10/19 08:59 Last Admin: 03/14/19 08:25 Dose: 50 mg Documented by: Magnesium Hydroxide (Milk Of Magnesia) 30 ml PO DAILY PRN PRN Reason: Constipation Stop: 04/09/19 20:37 Metformin HCl (Glucophage) 1,000 mg PO BIDM JOSE Stop: 04/10/19 08:59 Last Admin: 03/14/19 08:25 Dose: 1,000 mg Documented by: Montelukast Sodium (Singulair) 10 mg PO QPM JOSE Stop: 04/09/19 20:59 Last Admin: 03/13/19 22:54 Dose: 10 mg Documented by: Sodium Chloride (Payne Nasal) 1 - 2 sprays NA PRN PRN PRN Reason: Nasal Dryness/Congestion Stop: 04/09/19 20:37 Trazodone HCl (Desyrel) 100 mg PO HS PRN PRN Reason: sleep Stop: 04/09/19 20:41 Vitamin D (Vitamin D3) 1,000 units PO DAILY JOSE Stop: 04/10/19 08:59 Last Admin: 03/14/19 08:25 Dose: 1,000 units Documented by: Mental Health & Subst Abuse Tx Psychiatrist Name of Psychiatrist: Abdulkadir Urbina Psychiatrist's Date of Appointment with Psychiatrist: 03/23/19 Time of Appointment with Psychiatrist: 2:30pm Psychiatric Appointment Comment: [phone] [facility] Therapist Name of Therapist: Abdulkadir Miller Therapist's Date of Therapist Appointment: 03/19/19 Time of Therapist Appointment: 2pm Therapy Appointment Comment: [address] [facility] Detective Private Eye Name of Detective Private Eye: Constantino Rubio/Sheree Phone Number for Detective Private Eye: [phone] (Sheree) Case Management Appointment Comment: [id number], [place] [address] Post Discharge Appointments Primary Care Physician Name Of Family Doctor: [facility] - Dr. Tam Primary [facility] Time of Appointment with PCP: Follow up as needed. Provider Appointment Comment: [address], [place] [address] Partial or Psych Rehab Name of Partial or Psych Rehab: [facility] Phone Number of Partial or Psych Rehab: Partial or Psych Rehab Appointment Comment: [phone], [id number] Contact Information Discharge Discharge Address: [address] [place] [address], [facility] [address], [place] [address] CPT Code CPT Code 40950
[2019-03-14] MEDS: clonazePAM 0.5 MG TAB PO PRN ×2 (11:17→17:56)
[2019-03-14] MEDS: cloZAPine 25 MG TAB PO SCH ×2 (12:50→20:57)
[2019-03-14] MEDS: cloZAPine 100 MG TAB PO SCH (20:57)
[2019-03-14] MEDS: MONTELUKAST SODIUM 10 MG TABLET PO SCH (20:57)
[2019-03-14] MEDS: DESMOPRESSIN ACETATE 0.1 MG TAB PO SCH (20:58)
[2019-03-14] MEDS: ATORVASTATIN 20 MG TAB PO SCH (20:58)
[2019-03-15] MEDS: LOSARTAN POTASSIUM 50 MG TAB PO SCH (07:42)
[2019-03-15] MEDS: METFORMIN HCL 500 MG TAB PO SCH (07:42)
[2019-03-15] MEDS: LEVOTHYROXINE SODIUM 125 MCG TABLET PO SCH (07:42)
[2019-03-15] MEDS: estradioL 1 MG TAB PO SCH (07:42)
[2019-03-15] MEDS: CHOLECALCIFEROL 1,000 UNITS TAB PO SCH (07:43)
[2019-03-15] MEDS: lamoTRIgine 100 MG TAB PO SCH (07:43)
[2019-03-15] MEDS: ESCITALOPRAM OXALATE 20 MG TAB PO SCH (07:43)
--- NOTE | 2019-03-15 09:18 | Discharge Summary ---
Date of Service March 15, 2019 History of Present Illness Leisa is well-known to me as I see her in my outpatient practice and have treated her during multiple previous inpatient hospitalizations. I last saw her at the clinic 2 days ago, at which time she reported depressed mood for the past 3 days, difficulty performing ADLs (did not shower for 3 days) and engaging in her outpatient services, had not gone to scientology the previous Friday or her job at [employer] on Friday, but denied psychotic symptoms and suicidal thoughts. She sees her therapist twice a week, and yesterday had a therapy session to include her blended hospice case manager as well, and was informed that he was leaving his job with [employer] and that she would be assigned a new hospice case manager. She is very sensitive to rejection and frequently struggled with feelings of abandonment, making very emotionally distraught when given this news, stating she did not feel able to keep herself safe and needed to be in the hospital. In the ER, she endorsed depression, anger, feelings of abandonment, hopelessness, and helplessness. She reported high anxiety and fearfulness, feeling overwhelmed and unable to cope with her stressors, particularly her losses. She was admitted voluntarily. Laboratory data was notable for low hemoglobin, hem atocrit, and MCV, elevated RDW, and ANC of 7.46. Elevated glucose 129, last hemoglobin A1c was in November and was elevated at 6.6%. Vitamin D from 12/2018 was 27.7. TSH normal, drug screen negative, and UA notable for 1+ leukocyte esterase, 10-30 WBCs, > 30 epithelial cells, 3+ bacteria, and trace blood. On my assessment today, the patient was seen with KARELY Ray, with her permission. She reports mood is "really depressed, haven't felt this depressed for a really long time." Stressors include case management staffing changes as above, and recent loss of friendship (friend Kaley from high school called her over the weekend and told her they weren't friends anymore). She does report good support from her friend Jd, who lives in the same building. She reports suicidal thoughts, hopelessness, and inability to keep herself safe outside the hospital, but feels safe here. Appetite is ok, sleep was good last night. Has been sleeping excessively, at least 12 hours a day. Energy is low, lacks motivation or interest in activities. Denies missing doses of medications, and wants to focus on "dealing with loss." Feels unable to manage the losses in her life, including the of her mother (2017) and father (2018), and now her hospice case manager. Says she "feels like my mom's the only one that understood me." She continues to get medication recommendations from her brother Shon, stating "we crossed ketamine off our list." She is considering TMS, which she had in the past, but doesn't want to spend the money (not covered by insurance due to off label use for her diagnosis). She says her brother offered to pay for it. She reports she "tries to eat healthy" at home, but reports eating hotdogs and hamburgers, and does not follow a diabetic diet. Physical Exam Psychiatric Orientation: alert and cooperative Apperance: appropriately dressed, appropriately groomed and appeared stated age Eye Contact: good eye contact and + poor eye contact Motor Behavior: steady gait and station (With cane ) and no abnormal motor movements Speech: normal rate/rhythm/volume of speech Affect: euthymic affect and mood congruent with affect Mood: no depressed mood "Pretty good." Thought Process: goal directed thought process and linear/logical thought process Thought Content: reality based without delusions Suicidal Thoughts: denies suicidal thoughts Homicidal Thoughts: denies homicidal thoughts Hallucinations: no auditory hallucinations and no visual hallucinations Cognition: recent memory grossly intact, attention grossly intact and language grossly intact Insight: + fair insight Judgement: + fair judgement Vital Signs (Past 24 Hours) Last Vital Signs Temp 36.4 C L 03/15/19 06:51 Pulse 92 H 03/15/19 06:51 Resp 18 03/15/19 06:51 BP 154/81 H 03/15/19 06:51 Pulse Ox 95 03/10/19 21:10 Principal Diagnosis Schizoaffective disorder, depressed type 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 Her home medications were continued unchanged. She attended and participated in unit groups and therapy, worked on healthy coping skills and a discharge safety plan, and interacted in the milieu. She met with the rn diabetes educator. She met with her new blended hospice case manager, Arsh. Appetite was good, and she had adequate sleep. Her mood improved, suicidal thoughts resolved, and she only briefly endorsed auditory hallucinations of voices. She reported "paranoia," which she described as worrying that other people were mad at her. This is been a persistent trait, and does not appear to represent any psychotic symptoms. Care was coordinated with her outpatient therapist, and options for other services such as DBT were discussed. She recommended continuing the patient's current services, as she believes success in DBT would require an extended stay in a residential treatment facility with experienced treating both mental health and intellectual disability. This option was discussed with the patient, who declined, wanting to continue her current services as she has good rapport with her therapist. She also made a decision while in the hospital to discontinue peers support services, reporting that her auto radiator specialist had made unkind and hurtful comments to her. She completed her discharge safety plan as well as a schedule for the week following discharge. Day of Discharge Assessment Staff report the patient is reporting improved mood, denying suicidal thoughts, hallucinations, and reporting readiness for discharge. She is attending and participating in groups and therapy and tending to her ADLs independently. On my assessment, the patient reports her mood is "much better," and states she feels ready to go home. She talks about her decision to discontinue peer support services, and states she met with her new hospice case manager and likes her. She has made a schedule for the following week with activities or appointments daily. She denies any safety concerns with discharge, and states she is excited to return home and get back to her life. She reports good support from her brother whom she has spoken to on the phone. Transition of Care Transition Of Care Record: was reviewed with the patient Advance Directives Advance Directives Information Provided: Yes Advance Directives: No Mental Health Advance Directive: No Advance Directives on File: No Living Will: No Power of Legal Billing Coordinator: No Advance Directives Reason:: Declines as Mental Health Visit. Risk Factors Assessment Risk factors were mitigated by admission to the inpatient unit, continuing medi cations for mental health and medical illnesses, involving the patient in groups and therapy, working on healthy coping skills and her discharge safety plan, coordinating care with her outpatient clinicians, and patient education regarding psychiatric and medical conditions. She is reporting improved mood, affect has improved, she is denying suicidal thoughts and psychotic symptoms, is tending to her ADLs independently, and is requesting discharge. She is no longer at acute risk of harm to herself, so can be managed as an outpatient at this time. Male: No : Yes Do You Have Access To A Gun?: No Health Problems: Yes Mental Health Diagnoses: Yes Substance Use Disorders: No Previous Attempt: Yes Family History of Suicide: No Previous Psychiatric Hospitalization: Yes Hopelessness: Yes Smoker: No Protective Factors Assessment Islam Beliefs: No : No Responsible for Young Children: No Employed: No (Disability for mental health) Stable Relationships: No Supportive Family: Yes Good Rapport with Provider: Yes Tobacco Cessation at Discharge Tobacco Cessation Medication Prescribed at Discharge: Not Applicable/Non-Smoker Total Time Total Time Spent: Greater Than 30 Minutes Total Time Includes: Examination of the patient, Discharge Planning, Medication Reconciliation and Communication with other providers (Coordination with outpatient therapist) Discharge Data Lab Results 03/10/19 03/10/19 03/10/19 18:07 18:07 18:07 WBC 9.80 RBC 4.37 Hgb 11.1 L Hct 33.5 L MCV 76.7 L MCH 25.4 MCHC 33.1 RDW Std Deviation 44.4 RDW Coeff of Bret 15.9 H Plt Count 200 MPV 8.1 Immature Gran % (Auto) 0.2 Neut % (Auto) 76.1 Lymph % (Auto) 18.0 Butler % (Auto) 5.7 Eos % (Auto) 0.0 Baso % (Auto) 0.0 Immature Gran # (Auto) 0.02 Neut # (Auto) 7.46 H Lymph # (Auto) 1.76 Butler # (Auto) 0.56 Eos # (Auto) 0.00 Baso # (Auto) 0.00 Sodium 134 L Potassium 4.1 Chloride 98 Carbon Dioxide 25 Anion Gap 11.0 BUN 8 Creatinine 0.65 Est Cr Clr Drug Dosing 144.4 Est GFR ( Amer) 120.0 Est GFR (Non-Af Amer) 103.5 BUN/Creatinine Ratio 11.6 Glucose 129 H POC Glucose Calcium 8.8 Total Bilirubin 0.3 AST 7 L ALT 17 Alkaline Phosphatase 110 Total Protein 7.0 Albumin 3.4 Globulin 3.6 Albumin/Globulin Ratio 0.9 TSH 1.740 Urine Color Urine Appearance Urine pH Ur Specific Wellington Urine Protein Urine Glucose (UA) Urine Ketones Urine Blood Urine Nitrite Urine Bilirubin Urine Urobilinogen Ur Leukocyte Esterase Urine WBC (Auto) Urine RBC (Auto) U Hyaline Cast (Auto) U Epithel Cells (Auto) Urine Bacteria (Auto) Salicylates < 1.7 L Urine Opiates Screen Ur Methadone, Qual Acetaminophen < 2 L Urine Barbiturates Ur Phencyclidine (PCP) U Amphetamin/Meth Scrn MDMA (Ecstasy) Screen U Benzodiazepines Scrn Ur Cocaine Metabolite U Marijuana (THC) Screen Ethyl Alcohol mg/dL 03/10/19 03/10/19 03/10/19 18:07 18:16 18:16 WBC RBC Hgb Hct MCV MCH MCHC RDW Std Deviation RDW Coeff of Bret Plt Count MPV Immature Gran % (Auto) Neut % (Auto) Lymph % (Auto) Butler % (Auto) Eos % (Auto) Baso % (Auto) Immature Gran # (Auto) Neut # (Auto) Lymph # (Auto) Butler # (Auto) Eos # (Auto) Baso # (Auto) Sodium Potassium Chloride Carbon Dioxide Anion Gap BUN Creatinine Est Cr Clr Drug Dosing Est GFR ( Amer) Est GFR (Non-Af Amer) BUN/Creatinine Ratio Glucose POC Glucose Calcium Total Bilirubin AST ALT Alkaline Phosphatase Total Protein Albumin Globulin Albumin/Globulin Ratio TSH Urine Color Yellow Urine Appearance Clear Urine pH 5.5 Ur Specific Wellington 1.009 Urine Protein Negative Urine Glucose (UA) Negative Urine Ketones Negative Urine Blood Trace H Urine Nitrite Negative Urine Bilirubin Negative Urine Urobilinogen Negative Ur Leukocyte Esterase 1+ H Urine WBC (Auto) 10-30 H Urine RBC (Auto) 0-4 U Hyaline Cast (Auto) 1-5 U Epithel Cells (Auto) >30 H Urine Bacteria (Auto) 3+ H Salicylates Urine Opiates Screen Neg Ur Methadone, Qual Neg Acetaminophen Urine Barbiturates Neg Ur Phencyclidine (PCP) Neg U Amphetamin/Meth Scrn Neg MDMA (Ecstasy) Screen Neg U Benzodiazepines Scrn Neg Ur Cocaine Metabolite Neg U Marijuana (THC) Screen Neg Ethyl Alcohol mg/dL < 3.0 03/11/19 03/12/19 03/13/19 08:04 07:46 08:13 WBC RBC Hgb Hct MCV MCH MCHC RDW Std Deviation RDW Coeff of Bret Plt Count MPV Immature Gran % (Auto) Neut % (Auto) Lymph % (Auto) Butler % (Auto) Eos % (Auto) Baso % (Auto) Immature Gran # (Auto) Neut # (Auto) Lymph # (Auto) Butler # (Auto) Eos # (Auto) Baso # (Auto) Sodium Potassium Chloride Carbon Dioxide Anion Gap BUN Creatinine Est Cr Clr Drug Dosing Est GFR ( Amer) Est GFR (Non-Af Amer) BUN/Creatinine Ratio Glucose POC Glucose 133 H 118 H 121 H Calcium Total Bilirubin AST ALT Alkaline Phosphatase Total Protein Albumin Globulin Albumin/Globulin Ratio TSH Urine Color Urine Appearance Urine pH Ur Specific Wellington Urine Protein Urine Glucose (UA) Urine Ketones Urine Blood Urine Nitrite Urine Bilirubin Urine Urobilinogen Ur Leukocyte Esterase Urine WBC (Auto) Urine RBC (Auto) U Hyaline Cast (Auto) U Epithel Cells (Auto) Urine Bacteria (Auto) Salicylates Urine Opiates Screen Ur Methadone, Qual Acetaminophen Urine Barbiturates Ur Phencyclidine (PCP) U Amphetamin/Meth Scrn MDMA (Ecstasy) Screen U Benzodiazepines Scrn Ur Cocaine Metabolite U Marijuana (THC) Screen Ethyl Alcohol mg/dL 03/14/19 03/15/19 08:20 07:40 WBC RBC Hgb Hct MCV MCH MCHC RDW Std Deviation RDW Coeff of Bret Plt Count MPV Immature Gran % (Auto) Neut % (Auto) Lymph % (Auto) Butler % (Auto) Eos % (Auto) Baso % (Auto) Immature Gran # (Auto) Neut # (Auto) Lymph # (Auto) Butler # (Auto) Eos # (Auto) Baso # (Auto) Sodium Potassium Chloride Carbon Dioxide Anion Gap BUN Creatinine Est Cr Clr Drug Dosing Est GFR ( Amer) Est GFR (Non-Af Amer) BUN/Creatinine Ratio Glucose POC Glucose 114 H 114 H Calcium Total Bilirubin AST ALT Alkaline Phosphatase Total Protein Albumin Globulin Albumin/Globulin Ratio TSH Urine Color Urine Appearance Urine pH Ur Specific Wellington Urine Protein Urine Glucose (UA) Urine Ketones Urine Blood Urine Nitrite Urine Bilirubin Urine Urobilinogen Ur Leukocyte Esterase Urine WBC (Auto) Urine RBC (Auto) U Hyaline Cast (Auto) U Epithel Cells (Auto) Urine Bacteria (Auto) Salicylates Urine Opiates Screen Ur Methadone, Qual Acetaminophen Urine Barbiturates Ur Phencyclidine (PCP) U Amphetamin/Meth Scrn MDMA (Ecstasy) Screen U Benzodiazepines Scrn Ur Cocaine Metabolite U Marijuana (THC) Screen Ethyl Alcohol mg/dL Hospital Course (1) Suicidal ideation: 03/11 -continue voluntary hospitalization, every 15 minute checks for safety, participation in groups and therapy, healthy coping skills, and discharge safety planning. 03/12 - 03/14 - Continues to verbalize suicidality and inability to contract for safety outside of the hospital setting at this time (2) Schizoaffective disorder, depressive type: 03/11 -continue home medications including clozapine, escitalopram, and lamotrigine. -CBC with differential checked on admission; next due in 2 weeks. Fasting lipid profile 08/2018 normal with the exception of triglycerides 185. Hemoglobin A1c of 11/2018 was elevated at 6.6%. -Encourage her to be out of her bed during the day, actively participating in treatment, and tending to ADLs. -Meeting with outpatient hospice case manager, consider meeting with brother or local friends. -Care coordinated with her outpatient therapist. Patient may benefit from DBT, but unfortunately it is not available locally. 03/12 - Continue current medication regimen unchanged, as it seems that particular outpatient stressors were likely related to exacerbation of depressive symptoms and suicidality - Continue to encourage group participation 03/13 - 03/14 - Continue treatment plan as above - Explore additional coping strategies patient can complete independently (3) Anxiety: 03/11 -continue clonazepam 0.5 mg twice daily as needed. We have long been attempting to get her off of benzodiazepines, but she has only been able to tolerate this briefly before she requests to resume them. We will aim to maintain this dose and not increase it while here. -Patient has cut back on caffeine and encouraged her to continue to avoid caffeine due to risk of exacerbating anxiety. -Work on behavioral techniques for managing anxiety, focus on use of her coping skills. 03/12 - Continue treatment plan as above. Maintain current medication regimen - Will attempt to reduce anxiety related to recent transitions by inviting her new hospice case manager to meet her on the unit 03/14 - Pt has been using prn clonazepam at least once daily during this hospitalization - Continue to encourage development of healthy and effective coping strategies (4) Personality disorder: Borderline and dependent traits. Have recommended DBT, but not available locally. Will coordinate with outpatient therapist regarding any other recommendations. (5) Abnormal findings on microbiological examination of urine: 03/11 -UA notable for trace blood, 1+ leukocyte esterase, 10-30 WBCs, > 30 epithelial cells, 3+ bacteria. She has had cultures positive for Klebsiella pneumoniae on her last 2 hospitalizations. Asymptomatic currently. Follow-up on culture results and treat with antibiotics if indicated. 03/12 - Preliminary urine culture showing growth of Klebsiella pneumoniae - which has been consistent with prior hospitalizations as reported above. Pt remains asymptomatic, and will therefore not begin an antibiotic course at this time - will check for final urine culture results when they arrive. (6) Vitamin D deficiency: Continue vitamin D supplementation. Follow-up with PCP. (7) Dyslipidemia: Continue home dose of Lipitor. (8) Hypertension: Continue home dose of Cozaar (9) Hypothyroidism: 03/11 - Continue levothyroxine; TSH within normal limits. (10) Type 2 diabetes mellitus: Continue Metformin; diabetic diet. Encourage daily exercise and weight loss. Mental Health & Subst Abuse Tx Psychiatrist Name of Psychiatrist: Abdulkadir Craig - Dr. Urbina Psychiatrist's Date of Appointment with Psychiatrist: 03/23/19 Time of Appointment with Psychiatrist: 2:30pm Psychiatric Appointment Comment: [address] [facility] Therapist Name of Therapist: Nexthinkebenezer Miller Therapist's Date of Therapist Appointment: 03/19/19 Time of Therapist Appointment: 2pm Therapy Appointment Comment: [address] [facility] Tile Grinder Name of Tile Grinder: Constantino Rubio/Sheree Phone Number for Tile Grinder: [phone] (Sheree) Case Management Appointment Comment: [address], [place] [address] Post Discharge Appointments Primary Care Physician Name Of Family Doctor: [facility] - Dr. Tam Primary Care Time of Appointment with PCP: Follow up as needed. Provider Appointment Comment: [address], [place] [address] Partial or Psych Rehab Name of Partial or Psych Rehab: [facility] Phone Number of Partial or Psych Rehab: Partial or Psych Rehab Appointment Comment: [address], [id number] Smoking Cessation Counseling Tobacco Cessation Medication Prescribed at Discharge: Not Applicable/Non-Smoker Contact Information Discharge Discharge Address: [address] [place] [address], [place] [address] Discharge Plan Discharge Items Patient Disposition: Home - Self-Care Reason For Visit: SCHIZOAFFECTIVE DISORDER Discharge Diagnosis: Schizoaffective disorder, depressed type Activity: Per Instructions section Non-emergency contact: Primary Care Provider, Psychiatrist, Therapist and Spectroscopist Call non-emergency contact if: you have any medication questions and your symptoms worsen Follow-up/Referrals: Niles Tam MD [Primary Care Provider] - Diet: Carb Consistent or DM2 Addtl Attending Provider Instructions: SPECIAL CARE INSTRUCTIONS: 1. Follow through with your scheduled aftercare appointments. If unable to keep an appointment, please call to reschedule. 2. Take your medication only as prescribed. Medication should not be changed or stopped without the approval of your doctor. In the event of worsening symptoms or concerns about side effects, contact your doctor immediately. 3. Utilize new healthy coping skills, anger management skills, and stress management skills learned during your hospitalization. Journal feelings and process them with a support person. Identify stressors or situations that may result in relapse, deterioration or inappropriate behaviors and develop a plan to deal with those issues. 4. If your coping skills are ineffective and you are in crisis, contact your outpatient providers for direction. If unable to reach your providers, please call the CAN HELP LINE AT or go to the closest Emergency Room. 5. Avoid alcohol and un-prescribed drugs. 6. You have been provided with the Mental Health Advance Directives Pamphlet for your review. AFTERCARE APPOINTMENTS: * Please call your insurance company prior to your scheduled appointment to confirm your aftercare providers are covered. Take your insurance information to your appointments. WHO TO CALL AND WHEN: Medical Emergencies: For questions or emergencies related to your hospital stay, please contact the Inpatient Behavioral Health Unit at [phone]. A medical staffing coordinator is on-call 23/12 for the Behavioral Health Unit for emergencies At any time you feel your situation is an emergency, you may also call 911 immediately. Your Doctors Instructions noted above were prepared by provider Archana Urbina MD. Pending Studies at Discharge: No Stand-Alone Forms: My [facility] Medications and DC Order Prescriptions: Continued clozapine [Clozaril] 25 mg tablet 50 mg PO DAILYBL RF: 0 buspirone 10 mg tablet 20 mg PO TID RF: 0 levothyroxine [Synthroid] 125 mcg tablet 125 mcg PO DAILY Qty: 90 RF: 3 ergocalciferol (vitamin D2) [Vitamin D2] 50,000 unit capsule 50,000 unit PO MONTHLY Qty: 12 RF: 3 metformin [Glucophage] 500 mg tablet 1,000 mg PO BID Qty: 360 RF: 3 montelukast 10 mg tablet 10 mg PO QPM Qty: 90 RF: 3 trazodone 100 mg tablet 100 mg PO HS PRN (Reason: sleep) RF: 0 cholecalciferol (vitamin D3) [Vitamin D3] 1,000 unit capsule 1,000 units PO DAILY Qty: 12 RF: 1 clonazepam 0.5 mg tablet 0.5 mg PO BID PRN (Reason: anxiety) RF: 0 clozapine 200 mg tablet,disintegrating 225 mg PO HS RF: 0 losartan [Cozaar] 50 mg tablet 50 mg PO QAM RF: 0 atorvastatin [Lipitor] 20 mg tablet 20 mg PO HS RF: 0 lamotrigine [Lamictal] 200 mg tablet 200 mg PO QAM RF: 0 desmopressin 0.2 mg Tablet 0.2 mg PO HS RF: 0 estradiol [Estrace] 1 mg tablet 1 mg PO QAM RF: 0 escitalopram oxalate [Lexapro] 20 mg tablet 20 mg PO DAILY RF: 0 Discharge Orders: Discharge Order (Routine); Ordered 03/15/19 Ordered By: Archana Urbina Admission Data Admit Date/Time: 03/10/19 21:00 Attending Provider: Archana Urbina Admit Provider: Sarita Nicole Primary Care Provider: Niles Tam Other Interventions: PSY Interdisciplinary Discharge Planning Last Done: 03/12/19 14:57 Coding Level of Care Code 49017 D/C day mgmt > 30 min Diagnoses Suicidal ideation R45.851 Schizoaffective disorder, depressive type F25.1 Anxiety F41.9 Personality disorder F60.9 Abnormal findings on microbiological examination of urine R82.79 Vitamin D deficiency E55.9 Dyslipidemia E78.5 Hypertension I10 Hypothyroidism E03.9 Type 2 diabetes mellitus E11.9
[2019-03-15] MEDS: clonazePAM 0.5 MG TAB PO PRN (10:05)
[2019-03-15] MEDS: cloZAPine 25 MG TAB PO SCH (11:06)
[2019-04-02] MEDS ORDERED: ERGOCALCIFEROL 50,000 UNITS CAP PO SCH (09:00)
== END 2019-03-15 11:40 | disposition home or self-care (01) | DRG 885 ==
LOC: ED 16:55 → 3S 20:48

== ENCOUNTER 2019-10-28 15:29 | Inpatient (IN) ==
--- NOTE | 2019-10-28 15:49 | Emergency Department Note ---
Impression & Plan Depression with suicidal ideation, Hypokalemia ED Provider Note NAME: HOWIE HSU AGE: 49 SEX: F : 1970 ARRIVES VIA: Walk-In INFORMANT: Patient, ED PROVIDER(S): Brandon Kaye MD Chief Complaint: Suicidal ideation, depression HPI: Patient does present with concern for suicidal ideation and associated plan by overdosing by taking her medications. The patient states that she has not done that or taken [id number] medications inappropriately. The patient states that she has been having increased sleep. The patient also complains of decreased appetite. Patient states that she is having command hallucinations of her grandfather's voice telling her to kill herself. Patient denies any access to weapons or guns. Patient states that she has attempted to harm her self in the past but it is been many years. Patient states she has been compliant with her medications. No exacerbating or alleviating symptoms. ROS: See HPI for pertinent positives and negatives. A total of 10 systems were reviewed and otherwise negative. Past medical history: See below Surgical history: See below Social history: See below Physical Exam: GENERAL: NAD, non-toxic. Wearing a mask. EYE EXAM: Normal conjunctiva. PERRL, no anisocoria and EOM's grossly intact w/o pain. NECK: Supple, no nuchal rigidity, no adenopathy, non-tender. No signs of meningismus. LUNGS: Clear to auscultation. Normal chest wall mechanics. HEART: NSR, no MRG. ABDOMEN: Abdomen soft, non-tender, normo-active bowel sounds, no masses, no rebound or guarding. BACK: No CVA TTP. SKIN: No rashes and no bruising. UPPER EXTREMITIES: Upper extremities are grossly normal. LOWER EXTREMITIES: Grossly normal, no edema. NEURO EXAM: A&O x3, cranial nerves II-XII grossly intact, normal speech, moves all 4 extremities on command w/o issue. Psych: Flat affect, depressed mood, positive SI, negative HI. Positive auditory hallucinations. Negative visual hallucinations. Differential diagnoses: Mood disorder, infection, hypoglycemia, electrolyte abnormalities, cardiac sources, intracerebral event, toxicologic, trauma, neurologic, as well as other pathologies. Course: Patient was seen and evaluated the bedside. Full history physical exam was performed. EKG: None Imaging Studies: None MDM: Patient was seen in eval at the bedside. Blood work was obtained. The patient did have mild hypokalemia which was repleted with by mouth potassium. The patient did have a possible sign for urinary tract infection but the patient de nies any symptoms. No dysuria, back pain, or increasing frequency. Patient states that she has had a prior UTI and she does not have symptoms currently. Let us get a culture at this time. Currently asymptomatic. Patient did have referral to [facility]. and was subsequently admitted to [facility]. Past Med/Surg History Medical History Asthma (Chronic) Bacterial pneumonia (Resolved 01/11/11) Dyslipidemia (Chronic) Hypertension (Chronic) Hypothyroidism (Chronic) Hypoxemia (Acute) IBS (irritable bowel syndrome) Influenza (Inactive 2019) Schizoaffective disorder, depressive type (Chronic 01/11/11) Type 2 diabetes mellitus (Chronic) Surgical History H/O wisdom tooth extraction H/O: hysterectomy History of thyroid surgery Family History Mother Breast cancer Hypertension Stroke Unknown Hypertension Father Hypertension Heart disease Cancer Grandfather Heart disease Stroke Brother Myocardial infarction Grandmother (Maternal) Colon cancer Grandmother Stroke Denies family history of Ovarian cancer Prostate cancer Social History Preferred Language: Malagasy Communication Ability: Effective Visual Impairment: No Limitations Hearing Ability: Normal 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 Beliefs That Will Affect Care: Episcopalian (significant mormon community ) marital status: Single Current Living Situation: Alone current occupational status: employed Feels Safe at Home: Yes Smoking Status: Former smoker Tobacco Type: cigarettes ; Second Hand Exposure: No ; Hx Alcohol Use: No Hx Substance Use: No Seatbelt Use: always Allergies Allergies Allergy/AdvReac Type Severity Reaction Status Date / Time prednisone Allergy Severe hallucinati Verified 06/06/19 10:01 ons chlorpromazine Allergy Mild LIGHTHEADED Verified 06/06/19 10:01 SHUFFLING GAIT aspirin Allergy Unknown Unknown Verified 06/06/19 10:01 doxycycline Allergy Unknown HEARING Verified 06/06/19 10:01 VOICES, depression levofloxacin Allergy Unknown ?ALLERGIC Verified 06/06/19 10:01 TO LEVAQUIN? NSAIDS (Non-Steroidal Allergy Unknown . Verified 06/06/19 10:01 Anti-Inflamma Penicillins Allergy Unknown RASH, Verified 06/06/19 10:01 nausea and vomitting quinine Allergy Unknown Unknown Verified 06/06/19 10:01 theophylline [From Matias-[facility]] AdvReac Verified 06/06/19 10:01 Home Meds Home Medications Medication Instructions Recorded Confirmed escitalopram oxalate [Lexapro] 20 mg PO QAM 02/25/18 10/28/19 lamotrigine [Lamictal] 200 mg PO QAM 02/25/18 10/28/19 clonazepam 0.5 mg tablet 0.5 mg PO BID PRN tab 01/11/19 10/28/19 buspirone 10 mg tablet 20 mg PO TID tab 01/22/19 10/28/19 clozapine 200 mg disintegrating 200 mg PO HS tab 02/15/19 10/28/19 tablet levothyroxine [Synthroid] 125 mcg PO QAM 06/06/19 10/28/19 losartan [Cozaar] 50 mg PO QAM 06/06/19 10/28/19 montelukast 10 mg PO HS 06/06/19 10/28/19 clozapine 50 mg PO DIRECTED 10/28/19 10/28/19 desmopressin 0.2 mg PO HS 10/28/19 10/28/19 trazodone 100 mg PO HS PRN 10/28/19 10/28/19 Previous Rx's Medication Instructions Recorded ergocalciferol (vitamin D2) 1,250 50,000 unit PO MONTHLY #12 cap 02/03/19 mcg (50,000 unit) capsule metformin 500 mg tablet 1,000 mg PO BID #360 tab 02/08/19 atorvastatin 20 mg tablet 20 mg PO HS #30 tab 05/18/19 estradiol 1 mg tablet 1 mg PO DAILY #30 tab 07/20/19 cholecalciferol (vitamin D3) 25 1,000 units PO QAM #90 cap 08/23/19 mcg (1,000 unit) capsule Results & Data (ED) Vital Signs Vital Signs - 24 hr 10/28/19 15:33 10/28/19 20:14 Temperature 36.8 C Temperature Source Oral Pulse Rate 100 H Pulse Rate [Finger] 94 H Respiratory Rate 17 18 Respiratory Effort / Characteristics Non-Labored Non-Labored Spontaneous Respiratory Depth Normal Normal Respiratory Pattern Regular Blood Pressure 127/76 Blood Pressure [Left Arm] 127/74 Blood Pressure Mean 93 Blood Pressure Mean [Left Arm] 91 Blood Pressure Position [Left Arm] Sitting Pulse Oximetry 92 93 Oxygen Delivery Method Room Air Room Air Sepsis Recent Fever Within 48 Hours No Sepsis Action Taken by Nursing No Action Required Home Medications Current Medication List: was personally reviewed by me Laboratory Data Attestation: I reviewed the patient's lab results. Result diagrams: 10/28/19 16:02 10/31/19 07:49 Lab Results 10/28/19 10/28/19 10/28/19 Range/Units 16:02 16:02 16:02 WBC 7.84 (4.8-10.8) K/uL RBC 4.08 L (4.2-5.4) M/uL Hgb 10.3 L (12.0-16.0) g/dL Hct 33.0 L (37-47) % MCV 80.9 (80-100) fL MCH 25.2 (25-34) pg MCHC 31.2 L (32-36) g/dL RDW Std Deviation 45.6 (36.4-46.3) fL RDW Coeff of Bret 15.4 H (11.5-14.5) % Plt Count 219 (130-400) K/uL MPV 8.8 (7.4-10.4) fL Immature Gran % (Auto) 0.1 % Neut % (Auto) 66.3 % Lymph % (Auto) 21.6 % Phillips % (Auto) 12.0 % Eos % (Auto) 0.0 % Baso % (Auto) 0.0 % Immature Gran # (Auto) 0.01 (0.00-0.02) K/uL Neut # (Auto) 5.20 (1.4-6.5) K/uL Lymph # (Auto) 1.69 (1.2-3.4) K/uL Phillips # (Auto) 0.94 H (0.11-0.59) K/uL Eos # (Auto) 0.00 (0-0.5) K/uL Baso # (Auto) 0.00 (0-0.2) K/uL Sodium 137 (136-145) mmol/L Potassium 3.2 L (3.5-5.1) mmol/L Chloride 102 (98-107) mmol/L Carbon Dioxide 22 (21-32) mmol/L Anion Gap 13.0 H (3-11) BUN 23 H (7-18) mg/dl Creatinine 0.98 (0.6-1.2) mg/dl Est Cr Clr Drug Dosing Not Reportable Est GFR ( Amer) 77.4 Est GFR (Non-Af Amer) 66.8 BUN/Creatinine Ratio 23.5 H (10-20) Glucose 136 H (70-99) mg/dl Calcium 8.5 (8.5-10.1) mg/dl Magnesium 1.6 L (1.8-2.4) mg/dl Total Bilirubin 0.4 (0.2-1) mg/dl AST 74 H (15-37) U/L ALT 67 (12-78) U/L Alkaline Phosphatase 114 (45-117) U/L Total Protein 7.3 (6.4-8.2) gm/dl Albumin 2.9 L (3.4-5.0) gm/dl Globulin 4.4 H (2.5-4.0) gm/dl Albumin/Globulin Ratio 0.7 L (0.9-2) TSH 0.777 (0.300-4.500) uIu/ml Urine Color Urine Appearance (Clear) Urine pH (4.5-7.5) Ur Specific [place] (1.000-1.030) Urine Protein (Negative) Urine Glucose (UA) (Negative) Urine Ketones (Negative) Urine Blood (Negative) Urine Nitrite (Negative) Urine Bilirubin (Negative) Urine Urobilinogen (Negative) Ur Leukocyte Esterase (Negative) Urine WBC (Auto) (0-5) /hpf Urine RBC (Auto) (0-4) /hpf U Hyaline Cast (Auto) (0-5) /lpf U Epithel Cells (Auto) (0-5) /lpf Urine Bacteria (Auto) (Negative) Urine Yeast Salicylates < 1.7 L (2.8-20) mg/dl Urine Opiates Screen (Neg) Ur Methadone, Qual (Neg) Acetaminophen < 2 L (10-30) ug/ml Urine Barbiturates (Neg) Ur Phencyclidine (PCP) (Neg) U Amphetamin/Meth Scrn (Neg) MDMA (Ecstasy) Screen (Neg) U Benzodiazepines Scrn (Neg) Ur Cocaine Metabolite (Neg) U Marijuana (THC) Screen (Neg) Ethyl Alcohol mg/dL (0-3) mg/dl 10/28/19 10/28/19 10/28/19 Range/Units 16:02 16:34 16:34 WBC (4.8-10.8) K/uL RBC (4.2-5.4) M/uL Hgb (12.0-16.0) g/dL Hct (37-47) % MCV (80-100) fL MCH (25-34) pg MCHC (32-36) g/dL RDW Std Deviation (36.4-46.3) fL RDW Coeff of Bret (11.5-14.5) % Plt Count (130-400) K/uL MPV (7.4-10.4) fL Immature Gran % (Auto) % Neut % (Auto) % Lymph % (Auto) % Phillips % (Auto) % Eos % (Auto) % Baso % (Auto) % Immature Gran # (Auto) (0.00-0.02) K/uL Neut # (Auto) (1.4-6.5) K/uL Lymph # (Auto) (1.2-3.4) K/uL Phillips # (Auto) (0.11-0.59) K/uL Eos # (Auto) (0-0.5) K/uL Baso # (Auto) (0-0.2) K/uL Sodium (136-145) mmol/L Potassium (3.5-5.1) mmol/L Chloride (98-107) mmol/L Carbon Dioxide (21-32) mmol/L Anion Gap (3-11) BUN (7-18) mg/dl Creatinine (0.6-1.2) mg/dl Est Cr Clr Drug Dosing Est GFR ( Amer) Est GFR (Non-Af Amer) BUN/Creatinine Ratio (10-20) Glucose (70-99) mg/dl Calcium (8.5-10.1) mg/dl Magnesium (1.8-2.4) mg/dl Total Bilirubin (0.2-1) mg/dl AST (15-37) U/L ALT (12-78) U/L Alkaline Phosphatase (45-117) U/L Total Protein (6.4-8.2) gm/dl Albumin (3.4-5.0) gm/dl Globulin (2.5-4.0) gm/dl Albumin/Globulin Ratio (0.9-2) TSH (0.300-4.500) uIu/ml Urine Color Dark Yellow Urine Appearance Turbid A (Clear) Urine pH 5.0 (4.5-7.5) Ur Specific [place] 1.026 (1.000-1.030) Urine Protein 1+ H (Negative) Urine Glucose (UA) Negative (Negative) Urine Ketones Trace H (Negative) Urine Blood 3+ H (Negative) Urine Nitrite Negative (Negative) Urine Bilirubin Negative (Negative) Urine Urobilinogen Negative (Negative) Ur Leukocyte Esterase 2+ H (Negative) Urine WBC (Auto) >30 H (0-5) /hpf Urine RBC (Auto) >30 H (0-4) /hpf U Hyaline Cast (Auto) 0 (0-5) /lpf U Epithel Cells (Auto) >30 H (0-5) /lpf Urine Bacteria (Auto) 4+ H (Negative) Urine Yeast Not Reportable Salicylates (2.8-20) mg/dl Urine Opiates Screen Neg (Neg) Ur Methadone, Qual Neg (Neg) Acetaminophen (10-30) ug/ml Urine Barbiturates Neg (Neg) Ur Phencyclidine (PCP) Neg (Neg) U Amphetamin/Meth Scrn Neg (Neg) MDMA (Ecstasy) Screen Neg (Neg) U Benzodiazepines Scrn Neg (Neg) Ur Cocaine Metabolite Neg (Neg) U Marijuana (THC) Screen Neg (Neg) Ethyl Alcohol mg/dL < 3.0 (0-3) mg/dl Administered Medications Atorvastatin Calcium (Lipitor) 20 mg PO [facility] Stop: 11/29/19 21:59 Last Admin: 10/31/19 21:24 Dose: 20 mg Documented by: [id number] Admin: 10/30/19 21:25 Dose: 20 mg Documented by: [id number] Buspirone HCl (Buspar) 20 mg PO TID [facility] Stop: 11/27/19 20:59 Last Admin: 11/01/19 08:31 Dose: 20 mg Documented by: [id number] Admin: 10/31/19 21:23 Dose: 20 mg Documented by: [id number] Admin: 10/31/19 13:54 Dose: 20 mg Documented by: [id number] Admin: 10/31/19 08:00 Dose: 20 mg Documented by: [id number] Admin: 10/30/19 21:25 Dose: 20 mg Documented by: [id number] Admin: 10/30/19 13:36 Dose: 20 mg Documented by: [id number] Admin: 10/30/19 08:47 Dose: 20 mg Documented by: [id number] Admin: 10/29/19 20:57 Dose: 20 mg Documented by: [id number] Admin: 10/29/19 13:57 Dose: 20 mg Documented by: [id number] Admin: 10/29/19 08:40 Dose: 20 mg Documented by: [id number] Admin: 10/28/19 22:49 Dose: 20 mg Documented by: [id number] Clonazepam (Klonopin) 0.5 mg PO BID PRN PRN Reason: anxiety Stop: 11/27/19 20:55 Last Admin: 11/01/19 12:05 Dose: 0.5 mg Documented by: [id number] Admin: 10/31/19 13:54 Dose: 0.5 mg Documented by: [id number] Admin: 10/30/19 17:46 Dose: 0.5 mg Documented by: [id number] Admin: 10/29/19 17:49 Dose: 0.5 mg Documented by: [id number] Clozapine (Clozaril) 50 mg PO 1200,2200 [facility] Stop: 11/27/19 21:59 Last Admin: 11/01/19 12:03 Dose: 50 mg Documented by: [id number] Admin: 10/31/19 21:24 Dose: 50 mg Documented by: [id number] Admin: 10/31/19 11:26 Dose: 50 mg Documented by: [id number] Admin: 10/30/19 21:26 Dose: 50 mg Documented by: [id number] Admin: 10/30/19 12:42 Dose: 50 mg Documented by: [id number] Admin: 10/29/19 20:59 Dose: 50 mg Documented by: [id number] Admin: 10/29/19 08:39 Dose: 50 mg Documented by: [id number] Admin: 10/28/19 22:51 Dose: 50 mg Documented by: [id number] Clozapine (Clozapine) 200 mg PO [facility] Stop: 11/27/19 21:59 Last Admin: 10/31/19 21:23 Dose: 200 mg Documented by: [id number] Admin: 10/30/19 21:25 Dose: 200 mg Documented by: [id number] Admin: 10/29/19 20:58 Dose: 200 mg Documented by: [id number] Admin: 10/28/19 22:50 Dose: 200 mg Documented by: [id number] Desmopressin Acetate (Ddavp) 0.2 mg PO [facility] Stop: 11/29/19 21:59 Last Admin: 10/31/19 21:24 Dose: 0.2 mg Documented by: [id number] Admin: 10/30/19 21:26 Dose: 0.2 mg Documented by: [id number] Escitalopram Oxalate (Lexapro Tab) 20 mg PO [facility] Stop: 11/28/19 08:59 Last Admin: 11/01/19 08:32 Dose: 20 mg Documented by: [id number] Admin: 10/31/19 08:03 Dose: 20 mg Documented by: [id number] Admin: 10/30/19 08:48 Dose: 20 mg Documented by: [id number] Admin: 10/29/19 08:40 Dose: 20 mg Documented by: [id number] Estradiol (Estrace) 1 mg PO DAILY [facility] Stop: 11/28/19 08:59 Last Admin: 11/01/19 08:32 Dose: 1 mg Documented by: [id number] Admin: 10/31/19 08:01 Dose: 1 mg Documented by: [id number] Admin: 10/30/19 08:48 Dose: 1 mg Documented by: [id number] Admin: 10/29/19 08:40 Dose: 1 mg Documented by: [id number] Lamotrigine (Lamictal) 100 mg PO [facility] Stop: 11/30/19 08:59 Last Admin: 11/01/19 08:32 Dose: 100 mg Documented by: [id number] Admin: 10/31/19 08:03 Dose: 100 mg Documented by: [id number] [facility]: 11/28/19 07:59 Last Admin: 11/01/19 07:40 Dose: 125 mcg Documented by: [id number] Admin: 05/31/20 07:59 Dose: 125 mcg Documented by: [id number] Admin: 10/30/19 08:47 Dose: 125 mcg Documented by: [id number] Admin: 10/29/19 08:39 Dose: 125 mcg Documented by: [id number] Loperamide HCl (Imodium A-D Liquid) 2 mg PO BID PRN PRN Reason: Diarrhea Stop: 11/28/19 11:42 Last Admin: 11/01/19 09:00 Dose: 2 mg Documented by: [id number] Admin: 10/31/19 18:41 Dose: 2 mg Documented by: [id number] Admin: 10/29/19 16:11 Dose: 2 mg Documented by: [id number] [facility]) [facility] Stop: 11/28/19 08:59 Last Admin: 11/01/19 08:31 Dose: 50 mg Documented by: [id number] Admin: 10/31/19 08:01 Dose: 50 mg Documented by: [id number] Admin: 10/30/19 08:48 Dose: 50 mg Documented by: [id number] Admin: 10/29/19 08:40 Dose: 50 mg Documented by: [id number] Lurasidone HCl (Latuda) 40 mg PO QDD [facility] Stop: 11/29/19 17:44 Last Admin: 10/31/19 17:21 Dose: 40 mg Documented by: [id number] Admin: 10/30/19 17:43 Dose: 40 mg Documented by: [id number] Metformin HCl (Glucophage) 1,000 mg PO BIDM [facility] Stop: 11/28/19 08:59 Last Admin: 11/01/19 08:32 Dose: 1,000 mg Documented by: [id number] Admin: 10/31/19 17:22 Dose: 1,000 mg Documented by: [id number] Admin: 10/31/19 08:02 Dose: 1,000 mg Documented by: [id number] Admin: 10/30/19 17:43 Dose: 1,000 mg Documented by: [id number] Admin: 10/30/19 08:48 Dose: 1,000 mg Documented by: [id number] Admin: 10/29/19 17:48 Dose: 1,000 mg Documented by: [id number] Admin: 10/29/19 08:39 Dose: 1,000 mg Documented by: [id number] Montelukast Sodium (Singulair) 10 mg PO [facility] Stop: 11/29/19 21:59 Last Admin: 10/31/19 21:24 Dose: 10 mg Documented by: [id number] Admin: 10/30/19 21:26 Dose: 10 mg Documented by: [id number] Trazodone HCl (Desyrel) 100 mg PO PRN PRN Reason: Sleep Stop: 11/27/19 20:55 Last Admin: 10/31/19 21:48 Dose: 100 mg Documented by: [id number] Admin: 10/30/19 21:25 Dose: 100 mg Documented by: [id number] Admin: 10/29/19 21:02 Dose: 100 mg Documented by: [id number] Vitamin D (Vitamin D3) 1,000 units PO [facility] Stop: 11/28/19 08:59 Last Admin: 11/01/19 08:32 Dose: 1,000 units Documented by: [id number] Admin: 10/31/19 08:03 Dose: 1,000 units Documented by: [id number] Admin: 10/30/19 08:48 Dose: 1,000 units Documented by: [id number] Admin: 10/29/19 08:40 Dose: 1,000 units Documented by: [id number] Discontinued Medications Atorvastatin Calcium (Lipitor) 20 mg PO [facility] Stop: 11/27/19 20:59 Last Admin: 10/29/19 21:01 Dose: 20 mg Documented by: [id number] Admin: 10/28/19 23:28 Dose: Not Given Documented by: [id number] Admin: 10/28/19 22:50 Dose: 20 mg Documented by: [id number] Desmopressin Acetate (Ddavp) 0.2 mg PO [facility] Stop: 11/27/19 20:59 Last Admin: 10/29/19 20:59 Dose: 0.2 mg Documented by: [id number] Admin: 10/28/19 23:24 Dose: Not Given Documented by: [id number] Admin: 10/28/19 22:49 Dose: 0.2 mg Documented by: [id number] Lamotrigine (Lamictal) 200 mg PO [facility] Stop: 11/28/19 08:59 Last Admin: 10/30/19 08:48 Dose: 200 mg Documented by: [id number] Admin: 10/29/19 08:40 Dose: 200 mg Documented by: [id number] Lamotrigine (Lamictal) 50 mg PO [facility] Stop: 11/30/19 08:59 Last Admin: 11/01/19 08:32 Dose: 50 mg Documented by: [id number] Admin: 10/31/19 08:02 Dose: 50 mg Documented by: [id number] Metformin HCl (Glucophage) 1,000 mg PO BID [facility] Stop: 10/28/19 21:01 Last Admin: 10/28/19 23:33 Dose: Not Given Documented by: [id number] Montelukast Sodium (Singulair) 10 mg PO HS [facility] Stop: 11/27/19 20:59 Last Admin: 10/29/19 21:01 Dose: 10 mg Documented by: [id number] Admin: 10/28/19 23:28 Dose: Not Given Documented by: [id number] Admin: 10/28/19 22:50 Dose: 10 mg Documented by: [id number] Potassium Chloride (Klor-Con M20) 40 meq PO NOW [facility] Stop: 10/28/19 17:13 Last Admin: 10/28/19 18:04 Dose: 40 meq Documented by: [id number] Discharge Plan Visit Data *Final* Discharge Date/Time: 10/28/19 22:00 Chief Complaint: Mental Health Evaluation Stated Complaint: MENTAL HEALTH EVAL ED Provider: Niles Doyle Discharge Problem: Depression with suicidal ideation, Hypokalemia Patient Disposition: Admitted As Inpatient
[2019-10-28 16:20] LABS: Hemoglobin 10.3 g/dL (12.0-16.0); Immature Granulocytes # (auto) 0.01 K/uL (0.00-0.02); Immature Granulocytes % (auto) 0.1 %; Lymphocytes # (auto) 1.69 K/uL (1.2-3.4); Lymphocytes % (auto) 21.6 %; Mean Corpuscular Hemoglobin 25.2 pg (25-34); Mean Corpuscular Hgb Conc 31.2 g/dL (32-36); Mean Corpuscular Volume 80.9 fL (80-100); Mean Platelet Volume 8.8 fL (7.4-10.4); Monocytes # (auto) 0.94 K/uL (0.11-0.59); Neutrophils % (auto) 66.3 %; Platelet Count 219 K/uL (130-400); RDW Coefficient of Variation 15.4 % (11.5-14.5); RDW Standard Deviation 45.6 fL (36.4-46.3); Red Blood Count 4.08 M/uL (4.2-5.4); White Blood Count 7.84 K/uL (4.8-10.8)
[2019-10-28 16:35] LABS: Alanine Aminotransferase 67 U/L (12-78); Albumin Level 2.9 gm/dl (3.4-5.0); Aspartate Aminotransferase 74 U/L (15-37); BUN Creatinine Ratio 23.5 (10-20); Blood Urea Nitrogen 23 mg/dl (7-18); Calcium 8.5 mg/dl (8.5-10.1); Carbon Dioxide 22 mmol/L (21-32); Chloride 102 mmol/L (98-107); Est GFR (African American) 77.4; Est GFR (Non-African American) 66.8; Glucose 136 mg/dl (70-99); Potassium 3.2 mmol/L (3.5-5.1); Sodium 137 mmol/L (136-145)
[2019-10-28 16:45] LABS: Albumin Globulin Ratio 0.7 (0.9-2); Alkaline Phosphatase 114 U/L (45-117); Bilirubin,Total 0.4 mg/dl (0.2-1); Globulin 4.4 gm/dl (2.5-4.0); Thyroid Stimulating Hormone 0.777 uIu/ml (0.300-4.500); Total Protein 7.3 gm/dl (6.4-8.2)
[2019-10-28 16:52] LABS: Appearance Urine Turbid (Clear); Bacteria Urine Automated 4+ (Negative); Blood Urine 3+ (Negative); Color Urine Dark Yellow; Epithelial Cell Urine Auto >30 /lpf (0-5); Glucose Urine UA Negative (Negative); Ketones Urine Trace (Negative); Leukocyte Esterase Urine 2+ (Negative); Nitrite Urine Negative (Negative); Protein Urine 1+ (Negative); Specific Gravity Urine 1.026 (1.000-1.030); Urobilinogen Urine Negative (Negative); WBC Urine Automated >30 /hpf (0-5)
[2019-10-28 16:53] LABS: Acetaminophen < 2 ug/ml (10-30); Salicylate < 1.7 mg/dl (2.8-20)
[2019-10-28 16:56] LABS: Bilirubin Urine Negative (Negative); Ictotest Urine Negative (Negative)
[2019-10-28 17:02] LABS: Cast Urine Automated 0 /lpf (0-5); RBC Urine Automated >30 /hpf (0-4)
[2019-10-28] MEDS ORDERED: POTASSIUM CHLORIDE 20 MEQ TABCR PO STA (17:12)
[2019-10-28 17:22] LABS: Magnesium 1.6 mg/dl (1.8-2.4)
[2019-10-28 17:27] LABS: Amphetamines+Metham, Urine Neg (Neg); Barbiturates, Urine Neg (Neg); Benzodiazepine, Urine Neg (Neg); Cocaine, Urine Neg (Neg); MDMA (Ecstacy), Urine Neg (Neg); Methadone, Urine Neg (Neg); Opiate, Urine Neg (Neg); Phencyclidine, Urine Neg (Neg)
[2019-10-28] MEDS ORDERED: SODIUM CHLORIDE 0.65% NA SOLN 45 ML (OCEAN) PRN (20:52)
[2019-10-28] MEDS ORDERED: ALUMINUM/MAGNESIUM SUSP 30 ML UDC PO PRN (20:52)
[2019-10-28] MEDS ORDERED: ACETAMINOPHEN 325 MG TAB PO PRN (20:52)
[2019-10-28] MEDS ORDERED: MAGNESIUM HYDROXIDE SUSP 30 ML UDC PO PRN (20:52)
[2019-10-28] MEDS ORDERED: METFORMIN HCL 500 MG TAB PO SCH (21:00)
[2019-10-28] MEDS: DESMOPRESSIN ACETATE 0.1 MG TAB PO SCH ×2 (22:49→23:24)
[2019-10-28] MEDS: MONTELUKAST SODIUM 10 MG TABLET PO SCH ×2 (22:50→23:28)
[2019-10-28] MEDS: cloZAPine 100 MG TAB PO SCH (22:50)
[2019-10-28] MEDS: ATORVASTATIN 20 MG TAB PO SCH ×2 (22:50→23:28)
[2019-10-28] MEDS: cloZAPine 25 MG TAB PO SCH (22:51)
[2019-10-29] MEDS: cloZAPine 25 MG TAB PO SCH ×2 (08:39→20:59)
[2019-10-29] MEDS: METFORMIN HCL 500 MG TAB PO SCH ×2 (08:39→17:48)
[2019-10-29] MEDS: LEVOTHYROXINE SODIUM 125 MCG TABLET PO SCH (08:39)
[2019-10-29] MEDS: LOSARTAN POTASSIUM 50 MG TAB PO SCH (08:40)
[2019-10-29] MEDS: lamoTRIgine 100 MG TAB PO SCH (08:40)
[2019-10-29] MEDS: CHOLECALCIFEROL 1,000 UNITS 25 MCG TAB PO SCH (08:40)
[2019-10-29] MEDS: estradioL 1 MG TAB PO SCH (08:40)
[2019-10-29] MEDS: ESCITALOPRAM OXALATE 20 MG TAB PO SCH (08:40)
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
[2019-10-29] MEDS: LOPERAMIDE LIQUID 120 ML BOTTLE PO PRN (16:11)
[2019-10-29] MEDS: clonazePAM 0.5 MG TAB PO PRN (17:49)
[2019-10-29] MEDS: cloZAPine 100 MG TAB PO SCH (20:58)
[2019-10-29] MEDS: DESMOPRESSIN ACETATE 0.1 MG TAB PO SCH (20:59)
[2019-10-29] MEDS: ATORVASTATIN 20 MG TAB PO SCH (21:01)
[2019-10-29] MEDS: MONTELUKAST SODIUM 10 MG TABLET PO SCH (21:01)
[2019-10-29] MEDS: TRAZODONE HCL 100 MG TAB PO PRN (21:02)
--- NOTE | 2019-10-30 06:49 | Psychiatric Progress Note ---
Date of Service October 30, 2019 Impression / Recommendations Impression 49-year-old female with schizoaffective disorder depressive type admitted voluntarily for severe depression, suicidal ideation, and command auditory hallucinations telling her to kill herself by overdosing in the context of several stressors, including the sudden of a close friend, increased isolation related to the recent pandemic, and limited availability of supports due to COVID-19 restrictions (both psychiatric supports and tenriism community). Inpatient treatment is medically necessary as she is at high risk of suicide if she is discharged. She would like to try lurasidone in place of lamotrigine, so we will start a cross titration. (1) Suicidal ideation: 10/28 - Admitted to a locked inpatient behavioral health unit, on q15 minute safety checks - Encourage medication initiation/adjustments as indicated - Encourage participation in group and recreational therapies - Gather collateral information from outpatient providers - Suggest family meeting to involve outpatient supports in safety planning - Arrange appropriate aftercare (2) Schizoaffective disorder, depressive type: 10/28 - Continue current medication regimen at this time: clozapine, escitalopram, lamotrigine, buspirone, and prn clonazepam - Fasting glucose and lipid panel last obtained on 09/20/2019: glucose - 119; triglycerides - 141, cholesterol - 147, LDL - 77, and HDL - 42 - Reviewed presentation with patient's outpatient psychiatrist, who is agreeable with not making acute medication adjustments at this time - it is most likely that patient's presentation is related to several situational stressors ( of a close support, isolation related to COVID-19 virus, and significant limitations of supports being able to interact with her as they normally would due to social distancing protocols). Further medication adjustments can be discussed as indicated. - Constantino Galloway leather case finisher provided collateral information to nurses today - Encourage attendance in group programming to discuss recent situational stressors and continue to develop healthy and effective coping strategies 10/29 -Patient would like a retrial of lurasidone, which she recalls working well in the past. She does not feel lamotrigine has been especially beneficial, so we will cross titrate; reduce lamotrigine to 150 mg daily, and start lurasidone 40 mg daily with dinner. Reviewed risks, benefits, and side effects. She has been on it before and tolerated it well. -She will need a family meeting with her brother, Shon, who is her primary support, and possibly also her leather case finisher. Explore ways to increase supports in the community (return to [employer] when it reopens, check on status of application for waiver services and in-clinical manager home care, explore options for connection with her tenriism). (3) Anxiety: 10/28 - Continue buspirone 20mg TID - Continue clonazepam 0.5mg BID as needed (4) Personality disorder: - Borderline and dependent traits. DBT has historically been recommended, but there are very limited options locally. Continue coordination with outpatient providers and maintain appropriate boundaries during inpatient hospitalization. (5) UTI (urinary tract infection): 10/28 - Abnormal urinalysis with urine sent for culture. Preliminary result of gram negative bacilli. Sensitivities to follow. - Pt denies symptoms of UTI at this time 10/29 -Culture shows Klebsiella pneumoniae, patient remains asymptomatic, treatment not indicated. (6) Hypokalemia: 10/28 - Pt was hypokalemic on presentation to the ED - 3.2 - Potassium repleated with oral dose of 40meq - Will observe nutritional intake and repeat if indicated 10/29 -Eating some of each meal, and had episode of diarrhea yesterday. Continue to encourage good p.o. intake, and recheck electrolytes tomorrow (7) Vitamin D deficiency: - Continue current dose of Vitamin D3 - 1,000 IU qAM - Pt states she takes a monthly dose of Vitamin D3 - 50,000 IU on the first of each month. Will order for 11/01/2019 as it is anticipated patient will be here through that date (8) IBS (irritable bowel syndrome): 10/28 - Pt requesting, and has historically received, Imodium A-D for episodes of diarrhea. Pt requesting a prn order in case this should be required during her stay - She reports using the medication at home about once a month (9) Hypertension: - Continue home doses of losartan (10) Hypothyroidism: - Continue home dose of levothyroxine 125mcg daily prior to breakfast (11) Type 2 diabetes mellitus: - Continue home dose of metformin 1,000mg BID with meals (12) Dyslipidemia: - Continue home dose of atorvastatin Risk Factors Assessment Male: No : Yes Do You Have Access To A Gun?: No Health Problems: Yes Mental Health Diagnoses: Yes Substance Use Disorders: No Previous Attempt: Yes Family History of Suicide: No Previous Psychiatric Hospitalization: Yes Hopelessness: Yes Smoker: No Protective Factors Assessment Sabianism Beliefs: Yes : No Responsible for Young Children: No Employed: No (Disability for mental health) Stable Relationships: Yes Supportive Family: Yes Good Rapport with Provider: Yes Interval History Identifying Information HOWIE HSU is a 49-year-old F who currently lives alone in [place], has a history of schizoaffective disorder, depressed type, and was admitted on 10/28/19 20:53 on a 201 voluntary commitment for increased depression, suicidal ideation, and worsening command hallucinations telling her to overdose. Chief Complaint " My brother has some ideas about the medications, can you call him?" Review of Systems Notes Diarrhea yesterday, denies UTI symptoms Sleep Information Total Hours of Sleep: 8 Meal Information Percent Meal Consumed - Breakfast: 50 Percent Meal Consumed - Lunch: 25 Percent Meal Consumed - Dinner: 20 Subjective Subjective Patient was seen & assessed and interval progress reviewed with nursing and social work. Staff report she appears severely depressed, with amotivation, requiring staff assistance/encouragement to do ADLs. Staff spoke with her leather case finisher, who thought that the patient was dealing well with the pandemic and the of her friend, until 1 week ago. She stated that her mobile psych rehab worker, Jose E, will be able to resume in person visits next week. On my evaluation, the patient is seated at a table in the day area, hunched over and staring at the floor. She says she is trying to avoid spending time alone in her room, and was able to shower this morning but had to force herself. She describes her mood as "really really depressed, the worse I've been in years." She is unable to identify a discrete stressors, but when reviewed increased isolation and the of her friend in the past couple of months, she admits that these things have contributed. She denies missing medications, and states she has been talking to her brother about her meds, and would like to try Latuda in place of the Lamictal, as she remembers Latuda working well for her when she first started it. She endorses continued command auditory hallucinations and SI, but feels safe in the hospital. Her goal is to try to stay out of her room, shower, and attend groups. Spoke with patient's brother Shon; he noticed worsening depression over the past couple weeks and agreed stressors were likely loss of her friend and increased socialization. He recalls Ariana was helpful for her and had talked to her about it. He is willing to do a family meeting with her and support her however he can. Physical Exam Psychiatric Orientation: alert, oriented to person and cooperative Apperance: appropriately dressed, + disheveled and appeared stated age Obese, seated hunched over in NAD Eye Contact: + poor eye contact Motor Behavior: steady gait and station and no abnormal motor movements Minimal, monotone Affect: + depressed affect, + constricted affect and mood congruent with affect Mood: + depressed mood Thought Process: goal directed thought process Thought Content: + cognitive distortions Suicidal Thoughts: + reports suicidal thoughts Homicidal Thoughts: denies homicidal thoughts Hallucinations: + auditory hallucinations Command AH to harm herself Cognition: recent memory grossly intact and language grossly intact Insight: + fair insight Judgement: + fair judgement Vital Signs (Past 24 Hours) Last Vital Signs Temp 37.2 C 10/29/19 20:00 Pulse 103 H 10/29/19 06:24 Resp 18 10/29/19 06:23 BP 106/73 10/29/19 06:24 Pulse Ox 93 10/28/19 20:14 Results & Data ([facility]) Laboratory Results Laboratory Results - last 24 hr 10/29/19 08:26 POC Glucose 153 H Current Inpatient Medications Current Inpatient Medications: Current Inpatient Medications Acetaminophen (Tylenol) 650 mg PO Q4H PRN PRN Reason: Headache or Minor Fever Stop: 11/27/19 20:51 Al Hydrox/Mg Hydrox/Simethicone (Maalox) 30 ml PO Q4H PRN PRN Reason: GI Upset Stop: 11/27/19 20:51 Atorvastatin Calcium (Lipitor) 20 mg PO HS JOSE Stop: 11/27/19 20:59 Last Admin: 10/29/19 21:01 Dose: 20 mg Documented by: Buspirone HCl (Buspar) 20 mg PO TID JOSE Stop: 11/27/19 20:59 Last Admin: 10/29/19 20:57 Dose: 20 mg Documented by: Clonazepam (Klonopin) 0.5 mg PO BID PRN PRN Reason: anxiety Stop: 11/27/19 20:55 Last Admin: 10/29/19 17:49 Dose: 0.5 mg Documented by: Clozapine (Clozaril) 50 mg PO 1200,2200 [facility] Stop: 11/27/19 21:59 Last Admin: 10/29/19 20:59 Dose: 50 mg Documented by: Clozapine (Clozapine) 200 mg PO [facility] Stop: 11/27/19 21:59 Last Admin: 10/29/19 20:58 Dose: 200 mg Documented by: Desmopressin Acetate (Ddavp) 0.2 mg PO [facility] Stop: 11/27/19 20:59 Last Admin: 10/29/19 20:59 Dose: 0.2 mg Documented by: Escitalopram Oxalate (Lexapro Tab) 20 mg PO [facility] Stop: 11/28/19 08:59 Last Admin: 10/29/19 08:40 Dose: 20 mg Documented by: Estradiol (Estrace) 1 mg PO DAILY [facility] Stop: 11/28/19 08:59 Last Admin: 10/29/19 08:40 Dose: 1 mg Documented by: Lamotrigine (Lamictal) 200 mg PO [facility] Stop: 11/28/19 08:59 Last Admin: 10/29/19 08:40 Dose: 200 mg Documented by: Levothyroxine [facility] ([facility]) [facility] Stop: 11/28/19 07:59 Last Admin: 10/29/19 08:39 Dose: 125 mcg Documented by: Loperamide HCl (Imodium A-D Liquid) 2 mg PO BID PRN PRN Reason: Diarrhea Stop: 11/28/19 11:42 Last Admin: 10/29/19 16:11 Dose: 2 mg Documented by: Losartan Potassium (Cozaar) 50 mg PO [facility] Stop: 11/28/19 08:59 Last Admin: 10/29/19 08:40 Dose: 50 mg Documented by: Magnesium Hydroxide (Milk Of Magnesia) 30 ml PO DAILY PRN PRN Reason: Constipation Stop: 11/27/19 20:51 Metformin HCl (Glucophage) [facility] Stop: 11/28/19 08:59 Last Admin: 10/29/19 17:48 Dose: 1,000 mg Documented by: Montelukast Sodium (Singulair) 10 mg PO [facility] Stop: 11/27/19 20:59 Last Admin: 10/29/19 21:01 Dose: 10 mg Documented by: Sodium Chloride ([place] Nasal) 1 - 2 sprays NA PRN PRN PRN Reason: Nasal Dryness/Congestion Stop: 11/27/19 20:51 Trazodone HCl (Desyrel) 100 mg PO HS PRN PRN Reason: Sleep Stop: 11/27/19 20:55 Last Admin: 10/29/19 21:02 Dose: 100 mg Documented by: Vitamin D (Vitamin D3) 1,000 units PO QAM JOSE Stop: 11/28/19 08:59 Last Admin: 10/29/19 08:40 Dose: 1,000 units Documented by: Mental Health & Subst Abuse Tx Therapist Name of Therapist: Lamar Miller Coat Examiner Name of Coat Examiner: Constantino Bentley Post Discharge Appointments Primary Care Physician Name Of Family Doctor: Dr. Tam
[2019-10-30] MEDS: LEVOTHYROXINE SODIUM 125 MCG TABLET PO SCH (08:47)
[2019-10-30] MEDS: CHOLECALCIFEROL 1,000 UNITS 25 MCG TAB PO SCH (08:48)
[2019-10-30] MEDS: LOSARTAN POTASSIUM 50 MG TAB PO SCH (08:48)
[2019-10-30] MEDS: lamoTRIgine 100 MG TAB PO SCH (08:48)
[2019-10-30] MEDS: ESCITALOPRAM OXALATE 20 MG TAB PO SCH (08:48)
[2019-10-30] MEDS: estradioL 1 MG TAB PO SCH (08:48)
[2019-10-30] MEDS: METFORMIN HCL 500 MG TAB PO SCH ×2 (08:48→17:43)
[2019-10-30] MEDS: cloZAPine 25 MG TAB PO SCH ×2 (12:42→21:26)
[2019-10-30] MEDS: LURASIDONE HCL 40 MG TAB PO SCH (17:43)
[2019-10-30] MEDS: clonazePAM 0.5 MG TAB PO PRN (17:46)
[2019-10-30] MEDS: TRAZODONE HCL 100 MG TAB PO PRN (21:25)
[2019-10-30] MEDS: cloZAPine 100 MG TAB PO SCH (21:25)
[2019-10-30] MEDS: ATORVASTATIN 20 MG TAB PO SCH (21:25)
[2019-10-30] MEDS: DESMOPRESSIN ACETATE 0.1 MG TAB PO SCH (21:26)
[2019-10-30] MEDS: MONTELUKAST SODIUM 10 MG TABLET PO SCH (21:26)
--- NOTE | 2019-10-31 07:02 | Psychiatric Progress Note ---
Date of Service October 31, 2019 Impression / Recommendations Impression 49-year-old female with schizoaffective disorder depressive type admitted voluntarily for severe depression, suicidal ideation, and command auditory hallucinations telling her to kill herself by overdosing in the context of several stressors, including the sudden of a close friend, increased isolation related to the recent pandemic, and limited availability of supports due to COVID-19 restrictions (both psychiatric supports and yazdanism community). Inpatient treatment is medically necessary as she is at high risk of suicide if she is discharged. She is cross tapering from lamotrigine to lurasidone to targ et mood. (1) Suicidal ideation: 10/28 - Admitted to a locked inpatient behavioral health unit, on q15 minute safety checks - Encourage medication initiation/adjustments as indicated - Encourage participation in group and recreational therapies - Gather collateral information from outpatient providers - Suggest family meeting to involve outpatient supports in safety planning - Arrange appropriate aftercare (2) Schizoaffective disorder, depressive type: 10/28 - Continue current medication regimen at this time: clozapine, escitalopram, lamotrigine, buspirone, and prn clonazepam - Fasting glucose and lipid panel last obtained on 09/20/2019: glucose - 119; triglycerides - 141, cholesterol - 147, LDL - 77, and HDL - 42 - Reviewed presentation with patient's outpatient psychiatrist, who is agreeable with not making acute medication adjustments at this time - it is most likely that patient's presentation is related to several situational stressors ( of a close support, isolation related to COVID-19 virus, and significant limitations of supports being able to interact with her as they normally would due to social distancing protocols). Further medication adjustments can be discussed as indicated. - Constantino Galloway high risk case manager provided collateral information to nurses today - Encourage attendance in group programming to discuss recent situational stressors and continue to develop healthy and effective coping strategies 10/29 -Patient would like a retrial of lurasidone, which she recalls working well in the past. She does not feel lamotrigine has been especially beneficial, so we will cross titrate; reduce lamotrigine to 150 mg daily, and start lurasidone 40 mg daily with dinner. Reviewed risks, benefits, and side effects. She has been on it before and tolerated it well. -She will need a family meeting with her brother, Shon, who is her primary support, and possibly also her high risk case manager. Explore ways to increase supports in the community (return to [email or web address] when it reopens, check on status of application for waiver services and in-in home baby sitter, explore options for connection with her yazdanism). 10/30 -Continue cross titration, schedule family meeting with brother, and tomorrow will explore her community supports ([facility], Mobile psych rehab, [employer], in-in home baby sitter). -Coordinated with therapist Lamar Miller and advised of hospitalization. (3) Anxiety: 10/28 - Continue buspirone 20mg TID - Continue clonazepam 0.5mg BID as needed (4) Personality disorder: - Borderline and dependent traits. DBT has historically been recommended, but there are very limited options locally. Continue coordination with outpatient providers and maintain appropriate boundaries during inpatient hospitalization. (5) UTI (urinary tract infection): 10/28 - Abnormal urinalysis with urine sent for culture. Preliminary result of gram negative bacilli. Sensitivities to follow. - Pt denies symptoms of UTI at this time 10/29 -Culture shows Klebsiella pneumoniae, patient remains asymptomatic, treatment not indicated. (6) Hypokalemia: 10/28 - Pt was hypokalemic on presentation to the ED - 3.2 - Potassium repleated with oral dose of 40meq - Will observe nutritional intake and repeat if indicated 10/29 -Eating some of each meal, and had episode of diarrhea yesterday. Continue to encourage good p.o. intake, and recheck electrolytes tomorrow 10/30 -Potassium normalized today at 3.5. (7) Vitamin D deficiency: - Continue current dose of Vitamin D3 - 1,000 IU qAM - Pt states she takes a monthly dose of Vitamin D3 - 50,000 IU on the first of each month. Will order for 11/01/2019 as it is anticipated patient will be here through that date (8) IBS (irritable bowel syndrome): 10/28 - Pt requesting, and has historically received, Imodium A-D for episodes of diarrhea. Pt requesting a prn order in case this should be required during her stay - She reports using the medication at home about once a month (9) Hypertension: - Continue home doses of losartan (10) Hypothyroidism: - Continue home dose of levothyroxine 125mcg daily prior to breakfast (11) Type 2 diabetes mellitus: - Continue home dose of metformin 1,000mg BID with meals (12) Dyslipidemia: - Continue home dose of atorvastatin Risk Factors Assessment Male: No : Yes Do You Have Access To A Gun?: No Health Problems: Yes Mental Health Diagnoses: Yes Substance Use Disorders: No Previous Attempt: Yes Family History of Suicide: No Previous Psychiatric Hospitalization: Yes Hopelessness: Yes Smoker: No Protective Factors Assessment Baptist Beliefs: Yes : No Responsible for Young Children: No Employed: No (Disability for mental health) Stable Relationships: Yes Supportive Family: Yes Good Rapport with Provider: Yes Interval History Identifying Information HOWIE HSU is a 49-year-old F who currently lives alone in [place], has a history of schizoaffective disorder, depressed type, and was admitted on 10/28/19 20:53 on a 201 voluntary commitment for increased depression, suicidal ideation, and worsening command hallucinations telling her to overdose. Chief Complaint " A little bit better". Review of Systems Sleep Information Total Hours of Sleep: 7.5 Meal Information Percent Meal Consumed - Breakfast: 40 Percent Meal Consumed - Lunch: 100 Percent Meal Consumed - Dinner: 100 Subjective Subjective Patient was seen & assessed and interval progress reviewed with nursing and social work. Staff report she met with staff and processed her stressors, and is willing for a meeting with her brother. On my assessment, she states that she continues to feel depressed, but thinks that mood is "a little bit better" than on admission. She is going to groups, and trying to spend time out of her room and with peers. She tolerated the first dose of Latuda well. She is thinking a bout her various support options, and voices frustration with the effects the pandemic has had on her outpatient services, stating "I am so sick of this." She believes she is scheduled to start appointments with her mobile psych rehab worker again on , and is not sure when [facility] is opening or when her yazdanism will resume in person services. She has struggled with using audiovisual technology/Zoom, but is willing to ask her high risk case manager if she can assist her with this. She continues to experience command auditory hallucinations which are unchanged from admission and suicidal thoughts, but feels safe in the hospital and says she feels "a little bit of help." Physical Exam Psychiatric Orientation: alert and cooperative Apperance: appropriately dressed and appeared stated age Obese, limited grooming, hair disheveled entangled in the back. Seated in no a cute distress, slightly hunched over. Eye Contact: + poor eye contact Downcast gaze Motor Behavior: steady gait and station (Waddling gait, walks with a cane) Minimal speech, monotone Affect: + depressed affect, + constricted affect and mood congruent with affect Mood: + depressed mood Thought Process: goal directed thought process Thought Content: + cognitive distortions, + hopelessness, + worthlessness, + loneliness and + guilt Suicidal Thoughts: + reports suicidal thoughts Homicidal Thoughts: denies homicidal thoughts Hallucinations: + auditory hallucinations (Command to harm herself) Cognition: recent memory grossly intact, attention grossly intact and language grossly intact Insight: + fair insight Judgement: + fair judgement Vital Signs (Past 24 Hours) Last Vital Signs Temp 37.1 C 10/30/19 21:34 Pulse 91 H 10/30/19 07:01 Resp 18 10/30/19 06:59 BP 121/78 10/30/19 07:01 Pulse Ox 93 10/28/19 20:14 Results & Data ([facility]) Laboratory Results Laboratory Results - last 24 hr 10/30/19 08:02 POC Glucose 147 H Current Inpatient Medications Current Inpatient Medications: Current Inpatient Medications Acetaminophen (Tylenol) 650 mg PO Q4H PRN PRN Reason: Headache or Minor Fever Stop: 11/27/19 20:51 Al Hydrox/Mg Hydrox/Simethicone (Maalox) 30 ml PO Q4H PRN PRN Reason: GI Upset Stop: 11/27/19 20:51 Atorvastatin Calcium (Lipitor) 20 mg PO HS [facility] Stop: 11/29/19 21:59 Last Admin: 10/30/19 21:25 Dose: 20 mg Documented by: Buspirone HCl (Buspar) 20 mg PO TID JOSE Stop: 11/27/19 20:59 Last Admin: 10/30/19 21:25 Dose: 20 mg Documented by: Clonazepam (Klonopin) 0.5 mg PO BID PRN PRN Reason: anxiety Stop: 11/27/19 20:55 Last Admin: 10/30/19 17:46 Dose: 0.5 mg Documented by: Clozapine (Clozaril) 50 mg PO 1200,2200 [facility] Stop: 11/27/19 21:59 Last Admin: 10/30/19 21:26 Dose: 50 mg Documented by: Clozapine (Clozapine) 200 mg PO [facility] Stop: 11/27/19 21:59 Last Admin: 10/30/19 21:25 Dose: 200 mg Documented by: Desmopressin Acetate (Ddavp) 0.2 mg PO [facility] Stop: 11/29/19 21:59 Last Admin: 10/30/19 21:26 Dose: 0.2 mg Documented by: Escitalopram Oxalate (Lexapro Tab) 20 mg PO [facility] Stop: 11/28/19 08:59 Last Admin: 10/30/19 08:48 Dose: 20 mg Documented by: Estradiol (Estrace) 1 mg PO DAILY [facility] Stop: 11/28/19 08:59 Last Admin: 10/30/19 08:48 Dose: 1 mg Documented by: Lamotrigine (Lamictal) 50 mg PO [facility] Stop: 11/30/19 08:59 Lamotrigine (Lamictal) 100 mg PO [facility] Stop: 11/30/19 08:59 [facility]othyroxine [facility] ([facility]) [facility] Stop: 11/28/19 07:59 Last Admin: 10/30/19 08:47 Dose: 125 mcg Documented by: Loperamide HCl (Imodium A-D Liquid) 2 mg PO BID PRN PRN Reason: Diarrhea Stop: 11/28/19 11:42 Last Admin: 10/29/19 16:11 Dose: 2 mg Documented by: Losartan Potassium (Cozaar) 50 mg PO QAM [facility] Stop: 11/28/19 08:59 Last Admin: 10/30/19 08:48 Dose: 50 mg Documented by: Lurasidone HCl (Latuda) 40 mg PO QDD [facility] Stop: 11/29/19 17:44 Last Admin: 10/30/19 17:43 Dose: 40 mg Documented by: Magnesium Hydroxide (Milk Of Magnesia) 30 ml PO DAILY PRN PRN Reason: Constipation Stop: 11/27/19 20:51 Metformin [facility] (Gluc[facility]) [facility] Stop: 11/28/19 08:59 Last Admin: 10/30/19 17:43 Dose: 1,000 mg Documented by: Montelukast Sodium (Singulair) 10 mg PO [facility] Stop: 11/29/19 21:59 Last Admin: 10/30/19 21:26 Dose: 10 mg Documented by: Sodium Chloride ([place] Nasal) 1 - 2 sprays NA PRN PRN PRN Reason: Nasal Dryness/Congestion Stop: 11/27/19 20:51 Trazodone HCl (Desyrel) 100 mg PO HS PRN PRN Reason: Sleep Stop: 11/27/19 20:55 Last Admin: 10/30/19 21:25 Dose: 100 mg Documented by: Vitamin D (Vitamin D3) 1,000 units PO QAM [facility] Stop: 11/28/19 08:59 Last Admin: 10/30/19 08:48 Dose: 1,000 units Documented by: Mental Health & Subst Abuse Tx Therapist Name of Therapist: Lamar Miller Clock Smith Name of Clock Smith: Constantino Bentley Post Discharge Appointments Primary Care Physician Name Of Family Doctor: Dr. Tam
[2019-10-31] MEDS: LEVOTHYROXINE SODIUM 125 MCG TABLET PO SCH (07:59)
[2019-10-31] MEDS: LOSARTAN POTASSIUM 50 MG TAB PO SCH (08:01)
[2019-10-31] MEDS: estradioL 1 MG TAB PO SCH (08:01)
[2019-10-31] MEDS: METFORMIN HCL 500 MG TAB PO SCH ×2 (08:02→17:22)
[2019-10-31] MEDS: lamoTRIgine 25 MG TAB PO SCH (08:02)
[2019-10-31] MEDS: lamoTRIgine 100 MG TAB PO SCH (08:03)
[2019-10-31] MEDS: CHOLECALCIFEROL 1,000 UNITS 25 MCG TAB PO SCH (08:03)
[2019-10-31] MEDS: ESCITALOPRAM OXALATE 20 MG TAB PO SCH (08:03)
[2019-10-31 08:38] LABS: BUN Creatinine Ratio 22.6 (10-20); Calcium 9.3 mg/dl (8.5-10.1); Creatinine Clr Calc Pharmacy 140.3 ml/min; Est GFR (Non-African American) 104.4; Potassium 3.5 mmol/L (3.5-5.1)
[2019-10-31] MEDS: cloZAPine 25 MG TAB PO SCH ×2 (11:26→21:24)
[2019-10-31] MEDS: clonazePAM 0.5 MG TAB PO PRN (13:54)
[2019-10-31] MEDS: LURASIDONE HCL 40 MG TAB PO SCH (17:21)
[2019-10-31] MEDS: LOPERAMIDE LIQUID 120 ML BOTTLE PO PRN (18:41)
[2019-10-31] MEDS: cloZAPine 100 MG TAB PO SCH (21:23)
[2019-10-31] MEDS: MONTELUKAST SODIUM 10 MG TABLET PO SCH (21:24)
[2019-10-31] MEDS: DESMOPRESSIN ACETATE 0.1 MG TAB PO SCH (21:24)
[2019-10-31] MEDS: ATORVASTATIN 20 MG TAB PO SCH (21:24)
[2019-10-31] MEDS: TRAZODONE HCL 100 MG TAB PO PRN (21:48)
[2019-11-01] MEDS: LEVOTHYROXINE SODIUM 125 MCG TABLET PO SCH (07:40)
[2019-11-01] MEDS: LOSARTAN POTASSIUM 50 MG TAB PO SCH (08:31)
[2019-11-01] MEDS: lamoTRIgine 100 MG TAB PO SCH (08:32)
[2019-11-01] MEDS: CHOLECALCIFEROL 1,000 UNITS 25 MCG TAB PO SCH (08:32)
[2019-11-01] MEDS: METFORMIN HCL 500 MG TAB PO SCH ×2 (08:32→17:33)
[2019-11-01] MEDS: estradioL 1 MG TAB PO SCH (08:32)
[2019-11-01] MEDS: lamoTRIgine 25 MG TAB PO SCH (08:32)
[2019-11-01] MEDS: ESCITALOPRAM OXALATE 20 MG TAB PO SCH (08:32)
[2019-11-01] MEDS: LOPERAMIDE LIQUID 120 ML BOTTLE PO PRN (09:00)
--- NOTE | 2019-11-01 10:58 | Psychiatric Progress Note ---
Date of Service November 01, 2019 Impression / Recommendations Impression 49-year-old female with schizoaffective disorder depressive type admitted voluntarily for severe depression, suicidal ideation, and command auditory hallucinations telling her to kill herself by overdosing in the context of several stressors, including the sudden of a close friend, increased isolation related to the recent pandemic, and limited availability of supports due to COVID-19 restrictions (both psychiatric supports and [facility] community). Inpatient treatment is medically necessary as she is at high risk of suicide if she is discharged. She is cross tapering from lamotrigine to lurasidone to targ et mood. (1) Suicidal ideation: 10/28 - Admitted to a locked inpatient behavioral health unit, on q15 minute safety checks - Encourage medication initiation/adjustments as indicated - Encourage participation in group and recreational therapies - Gather collateral information from outpatient providers - Suggest family meeting to involve outpatient supports in safety planning - Arrange appropriate aftercare (2) Schizoaffective disorder, depressive type: 10/28 - Continue current medication regimen at this time: clozapine, escitalopram, lamotrigine, buspirone, and prn clonazepam - Fasting glucose and lipid panel last obtained on 09/20/2019: glucose - 119; triglycerides - 141, cholesterol - 147, LDL - 77, and HDL - 42 - Reviewed presentation with patient's outpatient psychiatrist, who is agreeable with not making acute medication adjustments at this time - it is most likely that patient's presentation is related to several situational stressors ( of a close support, isolation related to COVID-19 virus, and significant limitations of supports being able to interact with her as they normally would due to social distancing protocols). Further medication adjustments can be discussed as indicated. - Constantino Galloway mental health case manager provided collateral information to nurses today - Encourage attendance in group programming to discuss recent situational stressors and continue to develop healthy and effective coping strategies 10/29 -Patient would like a retrial of lurasidone, which she recalls working well in the past. She does not feel lamotrigine has been especially beneficial, so we will cross titrate; reduce lamotrigine to 150 mg daily, and start lurasidone 40 mg daily with dinner. Reviewed risks, benefits, and side effects. She has been on it before and tolerated it well. -She will need a family meeting with her brother, Shon, who is her primary support, and possibly also her mental health case manager. 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 10/30 -Continue cross titration, schedule family meeting with brother, and tomorrow will explore her community supports ([facility], [facility], [facility], in-modular home crew member). -Coordinated with therapist Lamar Miller and advised of hospitalization. 10/31 -Continue cross titration and decrease lamotrigine to 100 mg every morning starting tomorrow, while continuing lurasidone 40 mg daily with dinner. Family meeting with brother today, and will contact mental health case manager to coordinate care and review her current outpatient supports/daily structure. (3) Anxiety: 10/28 - Continue buspirone 20mg TID - Continue clonazepam 0.5mg BID as needed (4) Personality disorder: - Borderline and dependent traits. DBT has historically been recommended, but there are very limited options locally. Continue coordination with outpatient providers and maintain appropriate boundaries during inpatient hospitalization. (5) UTI (urinary tract infection): 10/28 - Abnormal urinalysis with urine sent for culture. Preliminary result of gram negative bacilli. Sensitivities to follow. - Pt denies symptoms of UTI at this time 10/29 -Culture shows Klebsiella pneumoniae, patient remains asymptomatic, treatment not indicated. (6) Hypokalemia: 10/28 - Pt was hypokalemic on presentation to the ED - 3.2 - Potassium repleated with oral dose of 40meq - Will observe nutritional intake and repeat if indicated 10/29 -Eating some of each meal, and had episode of diarrhea yesterday. Continue to encourage good p.o. intake, and recheck electrolytes tomorrow 10/30 -Potassium normalized today at 3.5. (7) Vitamin D deficiency: - Continue current dose of Vitamin D3 - 1,000 IU qAM - Pt states she takes a monthly dose of Vitamin D3 - 50,000 IU on the first of each month. Will order for 11/01/2019 as it is anticipated patient will be here through that date (8) IBS (irritable bowel syndrome): 10/28 - Pt requesting, and has historically received, Imodium A-D for episodes of diarrhea. Pt requesting a prn order in case this should be required during her stay - She reports using the medication at home about once a month (9) Hypertension: - Continue home doses of losartan (10) Hypothyroidism: - Continue home dose of levothyroxine 125mcg daily prior to breakfast (11) Type 2 diabetes mellitus: - Continue home dose of metformin 1,000mg BID with meals (12) Dyslipidemia: - Continue home dose of atorvastatin Risk Factors Assessment Male: No : Yes Do You Have Access To A Gun?: No Health Problems: Yes Mental Health Diagnoses: Yes Substance Use Disorders: No Previous Attempt: Yes Family History of Suicide: No Previous Psychiatric Hospitalization: Yes Hopelessness: Yes Smoker: No Protective Factors Assessment Rastafari Beliefs: Yes : No Responsible for Young Children: No Employed: No (Disability for mental health) Stable Relationships: Yes Supportive Family: Yes Good Rapport with Provider: Yes Interval History Identifying Information HOWIE HSU is a 49-year-old F who currently lives alone in [place], has a history of schizoaffective disorder, depressed type, and was admitted on 10/28/19 20:53 on a 201 voluntary commitment for increased depression, suicidal ideation, and worsening command hallucinations telling her to overdose. Chief Complaint " The same". Review of Systems Sleep Information Total Hours of Sleep: 7 Meal Information Percent Meal Consumed - Breakfast: 100 Percent Meal Consumed - Lunch: 100 Percent Meal Consumed - Dinner: 100 Subjective Subjective Patient was seen & assessed and interval progress reviewed with treatment team. Staff reports she remains severely depressed, but brightens slightly on interaction with staff. She is attending groups, but left early at 1 point that she felt overwhelmed. She continues to endorse command auditory hallucinations telling her to harm herself. On my assessment, she states that mood is very slowly improving, she feels supported by staff and the treatment is helping, and denies side effects to medications. She has a family meeting with her brother today and is working on her discharge plan, including clarifying many of her outpatient support services and finding out when they will reopen/resume. Physical Exam Psychiatric Orientation: alert and cooperative Apperance: appropriately dressed and appeared stated age; + inappropriately groomed Obese, hair unkempt entangled. Lying awake on top of her bed in no acute distress Eye Contact: + fair eye contact Motor Behavior: no abnormal motor movements Monotone, slightly slowed Affect: + depressed affect, + constricted affect and mood congruent with affect Mood: + depressed mood Thought Process: goal directed thought process and + concrete thought process Thought Content: + hopelessness, + worthlessness, + loneliness and + guilt Suicidal Thoughts: + reports suicidal thoughts Homicidal Thoughts: denies homicidal thoughts Hallucinations: + auditory hallucinations Cognition: recent memory grossly intact, attention grossly intact and language grossly intact Estimated Intelligence: + below average estimated intelligence Insight: + limited insight Judgement: + limited judgement Vital Signs (Past 24 Hours) Last Vital Signs Temp 36.6 C 11/01/19 06:51 Pulse 92 H 11/01/19 06:54 Resp 18 11/01/19 06:51 BP 124/77 11/01/19 06:54 Pulse Ox 91 11/01/19 06:51 Results & Data ([facility]) Laboratory Results Laboratory Results - last 24 hr 11/01/19 07:44 POC Glucose 131 H Current Inpatient Medications Current Inpatient Medications: Current Inpatient Medications Acetaminophen (Tylenol) 650 mg PO Q4H PRN PRN Reason: Headache or Minor Fever Stop: 11/27/19 20:51 Al Hydrox/Mg Hydrox/Simethicone (Maalox) 30 ml PO Q4H PRN PRN Reason: GI Upset Stop: 11/27/19 20:51 Atorvastatin Calcium (Lipitor) 20 mg PO HS [facility] Stop: 11/29/19 21:59 Last Admin: 10/31/19 21:24 Dose: 20 mg Documented by: Buspirone HCl (Buspar) 20 mg PO TID JOSE Stop: 11/27/19 20:59 Last Admin: 11/01/19 08:31 Dose: 20 mg Documented by: Clonazepam (Klonopin) 0.5 mg PO BID PRN PRN Reason: anxiety Stop: 11/27/19 20:55 Last Admin: 10/31/19 13:54 Dose: 0.5 mg Documented by: Clozapine (Clozaril) 50 mg PO 1200,2200 JOSE Stop: 11/27/19 21:59 Last Admin: 10/31/19 21:24 Dose: 50 mg Documented by: Clozapine (Clozapine) 200 mg PO HS JOSE Stop: 11/27/19 21:59 Last Admin: 10/31/19 21:23 Dose: 200 mg Documented by: Desmopressin Acetate (Ddavp) 0.2 mg PO HS [facility] Stop: 11/29/19 21:59 Last Admin: 10/31/19 21:24 Dose: 0.2 mg Documented by: Escitalopram Oxalate (Lexapro Tab) 20 mg PO QAM [facility] Stop: 11/28/19 08:59 Last Admin: 11/01/19 08:32 Dose: 20 mg Documented by: Estradiol (Estrace) 1 mg PO DAILY [facility] Stop: 11/28/19 08:59 Last Admin: 11/01/19 08:32 Dose: 1 mg Documented by: Lamotrigine (Lamictal) 50 mg PO QAM [facility] Stop: 11/30/19 08:59 Last Admin: 11/01/19 08:32 Dose: 50 mg Documented by: Lamotrigine (Lamictal) 100 mg PO [facility] Stop: 11/30/19 08:59 Last Admin: 11/01/19 08:32 Dose: 100 mg Documented by: Levothyroxine Sodium (Synthroid) 125 mcg PO DAILYBB [facility] Stop: 11/28/19 07:59 Last Admin: 11/01/19 07:40 Dose: 125 mcg Documented by: Loperamide HCl (Imodium A-D Liquid) 2 mg PO BID PRN PRN Reason: Diarrhea Stop: 11/28/19 11:42 Last Admin: 11/01/19 09:00 Dose: 2 mg Documented by: Losartan Potassium (Cozaar) [facility] [place]: 11/28/19 08:59 Last Admin: 11/01/19 08:31 Dose: 50 mg Documented by: Lurasidone HCl (Latuda) 40 mg PO QDD [facility] Stop: 11/29/19 17:44 Last Admin: 10/31/19 17:21 Dose: 40 mg Documented by: Magnesium Hydroxide (Milk Of Magnesia) 30 ml PO DAILY PRN PRN Reason: Constipation Stop: 11/27/19 20:51 Metformin HCl (Glucophage) 1,000 mg PO BIDM [facility] Stop: 11/28/19 08:59 Last Admin: 11/01/19 08:32 Dose: 1,000 mg Documented by: Montelukast Sodium (Singulair) 10 mg PO [facility] Stop: 11/29/19 21:59 Last Admin: 10/31/19 21:24 Dose: 10 mg Documented by: Sodium Chloride ([place] Nasal) 1 - 2 sprays NA PRN PRN PRN Reason: Nasal Dryness/Congestion Stop: 11/27/19 20:51 Trazodone HCl (Desyrel) 100 mg PO HS PRN PRN Reason: Sleep Stop: 11/27/19 20:55 Last Admin: 10/31/19 21:48 Dose: 100 mg Documented by: Vitamin D (Vitamin D3) 1,000 units PO QAM JOSE Stop: 11/28/19 08:59 Last Admin: 11/01/19 08:32 Dose: 1,000 units Documented by: Mental Health & Subst Abuse Tx Therapist Name of Therapist: Lamar Miller [employer] Name of [employer]: Constantino Bentley Post Discharge Appointments Primary Care Physician Name Of Family Doctor: Dr. Tam
[2019-11-01] MEDS: cloZAPine 25 MG TAB PO SCH ×2 (12:03→21:21)
[2019-11-01] MEDS: clonazePAM 0.5 MG TAB PO PRN (12:05)
[2019-11-01] MEDS: LURASIDONE HCL 40 MG TAB PO SCH (17:33)
[2019-11-01] MEDS: cloZAPine 100 MG TAB PO SCH (21:20)
[2019-11-01] MEDS: DESMOPRESSIN ACETATE 0.1 MG TAB PO SCH (21:21)
[2019-11-01] MEDS: ATORVASTATIN 20 MG TAB PO SCH (21:22)
[2019-11-01] MEDS: MONTELUKAST SODIUM 10 MG TABLET PO SCH (21:23)
[2019-11-01] MEDS: TRAZODONE HCL 100 MG TAB PO PRN (21:43)
[2019-11-02] MEDS: LEVOTHYROXINE SODIUM 125 MCG TABLET PO SCH (08:19)
[2019-11-02] MEDS: METFORMIN HCL 500 MG TAB PO SCH ×2 (08:20→17:42)
[2019-11-02] MEDS: lamoTRIgine 100 MG TAB PO SCH (08:20)
[2019-11-02] MEDS: ESCITALOPRAM OXALATE 20 MG TAB PO SCH (08:20)
[2019-11-02] MEDS: estradioL 1 MG TAB PO SCH (08:20)
[2019-11-02] MEDS: LOSARTAN POTASSIUM 50 MG TAB PO SCH (08:20)
[2019-11-02] MEDS: CHOLECALCIFEROL 1,000 UNITS 25 MCG TAB PO SCH (08:21)
[2019-11-02] MEDS: cloZAPine 25 MG TAB PO SCH ×2 (11:24→21:16)
[2019-11-02] MEDS: LOPERAMIDE LIQUID 120 ML BOTTLE PO PRN (11:26)
--- NOTE | 2019-11-02 11:39 | Psychiatric Progress Note ---
Date of Service November 02, 2019 Impression / Recommendations Impression 49-year-old female with schizoaffective disorder depressive type admitted voluntarily for severe depression, suicidal ideation, and command auditory hallucinations telling her to kill herself by overdosing in the context of several stressors, including the sudden of a close friend, increased isolation related to the recent pandemic, and limited availability of supports due to COVID-19 restrictions (both psychiatric supports and restorationism community). Inpatient treatment is medically necessary as she is at high risk of suicide if she is discharged. She is cross tapering from lamotrigine to lurasidone to targ et mood. (1) Suicidal ideation: 10/28 - Admitted to a locked inpatient behavioral health unit, on q15 minute safety checks - Encourage medication initiation/adjustments as indicated - Encourage participation in group and recreational therapies - Gather collateral information from outpatient providers - Suggest family meeting to involve outpatient supports in safety planning - Arrange appropriate aftercare 11/01 - Denying active SI today (2) Schizoaffective disorder, depressive type: 10/28 - Continue current medication regimen at this time: clozapine, escitalopram, lamotrigine, buspirone, and prn clonazepam - Fasting glucose and lipid panel last obtained on 09/20/2019: glucose - 119; triglycerides - 141, cholesterol - 147, LDL - 77, and HDL - 42 - Reviewed presentation with patient's outpatient psychiatrist, who is agreeable with not making acute medication adjustments at this time - it is most likely that patient's presentation is related to several situational stressors ( of a close support, isolation related to COVID-19 virus, and significant limitations of supports being able to interact with her as they normally would due to social distancing protocols). Further medication adjustments can be discussed as indicated. - Constantino Galloway pillowcase sewer provided collateral information to nurses today - Encourage attendance in group programming to discuss recent situational stressors and continue to develop healthy and effective coping strategies 10/29 -Patient would like a retrial of lurasidone, which she recalls working well in the past. She does not feel lamotrigine has been especially beneficial, so we will cross titrate; reduce lamotrigine to 150 mg daily, and start lurasidone 40 mg daily with dinner. Reviewed risks, benefits, and side effects. She has been on it before and tolerated it well. -She will need a family meeting with her brother, Shon, who is her primary support, and possibly also her pillowcase sewer. Explore ways to increase supports in the community (return to [place] when it reopens, check on status of application for waiver services and [facility], explore options for connection with her restorationism). 10/30 -Continue cross titration, schedule family meeting with brother, and tomorrow will explore her community supports ([facility], [facility], [facility], [facility]). -Coordinated with therapist Lamar Miller and advised of hospitalization. 10/31 -Continue cross titration and decrease lamotrigine to 100 mg every morning starting tomorrow, while continuing lurasidone 40 mg daily with dinner. Family meeting with brother today, and will contact pillowcase sewer to coordinate care and review her current outpatient supports/daily structure. 11/01 - Continue current medication regimen - ongoing cross-titration from lamotrigine to lurasidone - no further adjustment today as patient reporting diarrhea, though more likely related to patient's history of IBS - Phone meeting with brother yesterday, discussed coordination of additional supports - Pt denying active SI, considering that she may be ready for discharge tomorrow. (3) Anxiety: 10/28 - Continue buspirone 20mg TID - Continue clonazepam 0.5mg BID as needed (4) Personality disorder: - Borderline and dependent traits. DBT has historically been recommended, but there are very limited options locally. Continue coordination with outpatient providers and maintain appropriate boundaries during inpatient hospitalization. (5) UTI (urinary tract infection): 10/28 - Abnormal urinalysis with urine sent for culture. Preliminary result of gram negative bacilli. Sensitivities to follow. - Pt denies symptoms of UTI at this time 10/29 -Culture shows Klebsiella pneumoniae, patient remains asymptomatic, treatment not indicated. (6) Hypokalemia: 10/28 - Pt was hypokalemic on presentation to the ED - 3.2 - Potassium repleated with oral dose of 40meq - Will observe nutritional intake and repeat if indicated 10/29 -Eating some of each meal, and had episode of diarrhea yesterday. Continue to encourage good p.o. intake, and recheck electrolytes tomorrow 10/30 -Potassium normalized today at 3.5. (7) Vitamin D deficiency: - Continue current dose of Vitamin D3 - 1,000 IU qAM - Pt states she takes a monthly dose of Vitamin D3 - 50,000 IU on the first of each month. Will order for 11/01/2019 as it is anticipated patient will be here through that date (8) IBS (irritable bowel syndrome): 10/28 - Pt requesting, and has historically received, Imodium A-D for episodes of diarrhea. Pt requesting a prn order in case this should be required during her stay - She reports using the medication at home about once a month (9) Hypertension: - Continue home doses of losartan (10) Hypothyroidism: - Continue home dose of levothyroxine 125mcg daily prior to breakfast (11) Type 2 diabetes mellitus: - Continue home dose of metformin 1,000mg BID with meals (12) Dyslipidemia: - Continue home dose of atorvastatin Risk Factors Assessment Male: No : Yes Do You Have Access To A Gun?: No Health Problems: Yes Mental Health Diagnoses: Yes Substance Use Disorders: No Previous Attempt: Yes Family History of Suicide: No Previous Psychiatric Hospitalization: Yes Hopelessness: Yes Smoker: No Protective Factors Assessment Judaism Beliefs: Yes : No Responsible for Young Children: No Employed: No (Disability for mental health) Stable Relationships: Yes Supportive Family: Yes Good Rapport with Provider: Yes Interval History Identifying Information HOWIE HSU is a 49-year-old F who currently lives alone in [place], has a history of schizoaffective disorder, depressed type, and was admitted on 10/28/19 20:53 on a 201 voluntary commitment for increased depression, suicidal ideation, and worsening command hallucinations telling her to overdose. Chief Complaint "Ok. Better than the last time I saw you." Review of Systems Notes Constitutional: denied Cardiovascular: denied Respiratory: denied Gastrointestinal: reports intermittent diarrhea (IBS) Neurological: denied Psychiatric: denies symptoms other than stated above Total of at least 10 systems reviewed, pertinent positives as above and in HPI. Sleep Information Total Hours of Sleep: 8.25 Meal Information Percent Meal Consumed - Breakfast: 75 Percent Meal Consumed - Lunch: 30 Percent Meal Consumed - Dinner: 100 Subjective Subjective Patient was seen & assessed and interval progress reviewed with nursing and social work. Staff report the patient has attended group programming. She did participate in a phone meeting with her brother yesterday, in which they discussed coordinating additional support from professional aids and restorationism companions. Pt was seen today to assess progress since admission. Pt states that she is feeling "ok. Better than the last time I saw you." Medication adjustments were discussed with the patient over the weekend, and she reports improvement in mood over the last 1-2 days. Pt reports her mood is currently a 4/10 (claiming average mood is 5/10). Pt claims that when she first came in, her mood was "oh gosh, only like a 2...maybe even a 1." Pt does feeling that her appetite, sleep, and energy level have improved. Pt denies active SI stating, "maybe a little bit, but I don't think I'd hurt myself." Pt does report ongoing depression, and states "It is harder to cope with the depression than with the voices, I can distract myself from the voices." Pt does admit she was discouraged yesterday to find out that the [facility] groups would not be meeting for several more weeks. Overall, patient does feel that improvements are being made, and is even considering that she may be ready for discharge tomorrow. She is able to recite her daily schedule on an outpatient basis, to include numerous meetings with companions, her pillowcase sewer, and her outpatient providers. Physical Exam Psychiatric Orientation: alert, oriented x 3 and cooperative (and pleasant) Apperance: appropriately dressed (casually, in t-shirt and leggings); + inappropriately groomed (hair is greasy and unkempt) Eye Contact: good eye contact Motor Behavior: no abnormal motor movements (observed while laying in bed) Speech: normal rate/rhythm/volume of speech Affect: + depressed affect Mood: + depressed mood ("it's harder to cope with the depression than with the voices", "ok") Thought Process: goal directed thought process, clear/coherent thought process and + concrete thought process Thought Content: + cognitive distortions, + hopelessness, + loneliness and + guilt Suicidal Thoughts: denies suicidal plan and denies suicidal intent; + reports suicidal thoughts (denies belief that she would act on the thoughts) Homicidal Thoughts: denies homicidal thoughts Hallucinations: + auditory hallucinations (always hears grandfather's voice, states she is able to cope with voices); no visual hallucinations Cognition: recent memory grossly intact, attention grossly intact and language grossly intact Estimated Intelligence: consistent with education level Insight: + fair insight Judgement: + fair judgement Vital Signs (Past 24 Hours) Last Vital Signs Temp 36.7 C 11/02/19 06:00 Pulse 98 H 11/02/19 06:23 Resp 19 11/02/19 06:00 BP 163/90 H 11/02/19 06:23 Pulse Ox 91 11/01/19 06:51 Results & Data ([facility]) Laboratory Results Laboratory Results - last 24 hr 11/02/19 08:04 POC Glucose 125 H Current Inpatient Medications Current Inpatient Medications: Current Inpatient Medications Acetaminophen (Tylenol) 650 mg PO Q4H PRN PRN Reason: Headache or Minor Fever Stop: 11/27/19 20:51 Al Hydrox/Mg Hydrox/Simethicone (Maalox) 30 ml PO Q4H PRN PRN Reason: GI Upset Stop: 11/27/19 20:51 Atorvastatin Calcium (Lipitor) 20 mg PO HS [facility] Stop: 11/29/19 21:59 Last Admin: 11/01/19 21:22 Dose: 20 mg Documented by: Buspirone HCl (Buspar) 20 mg PO TID [facility] Stop: 11/27/19 20:59 Last Admin: 11/02/19 08:19 Dose: 20 mg Documented by: Clonazepam (Klonopin) 0.5 mg PO BID PRN PRN Reason: anxiety Stop: 11/27/19 20:55 Last Admin: 11/01/19 12:05 Dose: 0.5 mg Documented by: Clozapine (Clozaril) 50 mg PO 1200,2200 [facility] Stop: 11/27/19 21:59 Last Admin: 11/02/19 11:24 Dose: 50 mg Documented by: Clozapine (Clozapine) 200 mg PO [facility] Stop: 11/27/19 21:59 Last Admin: 11/01/19 21:20 Dose: 200 mg Documented by: Desmopressin Acetate (Ddavp) 0.2 mg PO HS [facility] Stop: 11/29/19 21:59 Last Admin: 11/01/19 21:21 Dose: 0.2 mg Documented by: Escitalopram Oxalate (Lexapro Tab) 20 mg PO QAM [facility] Stop: 11/28/19 08:59 Last Admin: 11/02/19 08:20 Dose: 20 mg Documented by: Estradiol (Estrace) 1 mg PO DAILY [facility] Stop: 11/28/19 08:59 Last Admin: 11/02/19 08:20 Dose: 1 mg Documented by: Lamotrigine (Lamictal) [facility] Stop: 11/30/19 08:59 Last Admin: 11/02/19 08:20 Dose: 100 mg Documented by: Levothyroxine Sodium (Synthroid) 125 mcg PO DAILYBB [facility] Stop: 11/28/19 07:59 Last Admin: 11/02/19 08:19 Dose: 125 mcg Documented by: Loperamide HCl (Imodium A-D Liquid) 2 mg PO BID PRN PRN Reason: Diarrhea Stop: 11/28/19 11:42 Last Admin: 11/02/19 11:26 Dose: 2 mg Documented by: Losartan Potassium (Cozaar) 50 mg PO [facility] Stop: 11/28/19 08:59 Last Admin: 11/02/19 08:20 Dose: 50 mg Documented by: Lurasidone HCl (Latuda) 40 mg PO QDD [facility] Stop: 11/29/19 17:44 Last Admin: 11/01/19 17:33 Dose: 40 mg Documented by: Magnesium Hydroxide (Milk Of Magnesia) 30 ml PO DAILY PRN PRN Reason: Constipation Stop: 11/27/19 20:51 Metformin HCl (Glucophage) 1,000 mg PO BIDM [facility] Stop: 11/28/19 08:59 Last Admin: 11/02/19 08:20 Dose: 1,000 mg Documented by: Montelukast Sodium (Singulair) 10 mg PO HS [facility] Stop: 11/29/19 21:59 Last Admin: 11/01/19 21:23 Dose: 10 mg Documented by: Sodium Chloride ([place] Nasal) 1 - 2 sprays NA PRN PRN PRN Reason: Nasal Dryness/Congestion Stop: 11/27/19 20:51 Trazodone HCl (Desyrel) 100 mg PO HS PRN PRN Reason: Sleep Stop: 11/27/19 20:55 Last Admin: 11/01/19 21:43 Dose: 100 mg Documented by: Vitamin D (Vitamin D3) 1,000 units PO QAAM[facility] Stop: 11/28/19 08:59 Last Admin: 11/02/19 08:21 Dose: 1,000 units Documented by: [facility] Subst Abuse [facility] Psychiatrist Name of Psychiatrist: Abdulkadir Handley Dr. [facility] Psychiatrist's Date of Appointment with Psychiatrist: 11/11/19 Time of Appointment with Psychiatrist: 2:50 p.m. Psychiatric Appointment Comment: [address] [facility] [place] Therapist Name of Therapist: Abdulkadir Craig - Lamar Miller Therapist's Date of Therapist Appointment: 11/05/19 Time of Therapist Appointment: 2:00 p.m. Therapy Appointment Comment: [address] [facility] [place] Display Artist Name of Display Artist: Constantino Bentley Phone Number for Display Artist: [phone] Post Discharge Appointments Primary Care Physician Name Of Family Doctor: [facility] - Dr. Tam Primary Care Provider Appointment Comment: [address] [facility] Partial or Psych Rehab Name of Partial or Psych Rehab: [facility] - Jose E Phone Number of Partial or Psych Rehab: [phone] Date of Appointment at Partial or Psych Rehab: 11/04/19 Partial or Psych Rehab Appointment Comment: [id number] [facility], [facility] [address], [place] Contact Information Discharge Discharge Address: [address] [place] [address], [place] [address]
[2019-11-02] MEDS: clonazePAM 0.5 MG TAB PO PRN (13:58)
[2019-11-02] MEDS: LURASIDONE HCL 40 MG TAB PO SCH (17:42)
[2019-11-02] MEDS: MONTELUKAST SODIUM 10 MG TABLET PO SCH (21:16)
[2019-11-02] MEDS: DESMOPRESSIN ACETATE 0.1 MG TAB PO SCH (21:16)
[2019-11-02] MEDS: ATORVASTATIN 20 MG TAB PO SCH (21:16)
[2019-11-02] MEDS: cloZAPine 100 MG TAB PO SCH (21:16)
[2019-11-02] MEDS: TRAZODONE HCL 100 MG TAB PO PRN (21:37)
[2019-11-03] MEDS: lamoTRIgine 100 MG TAB PO SCH (08:02)
[2019-11-03] MEDS: METFORMIN HCL 500 MG TAB PO SCH (08:02)
[2019-11-03] MEDS: estradioL 1 MG TAB PO SCH (08:03)
[2019-11-03] MEDS: LEVOTHYROXINE SODIUM 125 MCG TABLET PO SCH (08:03)
[2019-11-03] MEDS: ESCITALOPRAM OXALATE 20 MG TAB PO SCH (08:03)
[2019-11-03] MEDS: LOSARTAN POTASSIUM 50 MG TAB PO SCH (08:04)
[2019-11-03] MEDS: clonazePAM 0.5 MG TAB PO PRN (08:04)
[2019-11-03] MEDS ORDERED: ERGOCALCIFEROL 50,000 UNITS CAP PO ONE (08:30)
[2019-11-03] MEDS: CHOLECALCIFEROL 1,000 UNITS 25 MCG TAB PO SCH (08:49)
[2019-11-03] MEDS: LOPERAMIDE LIQUID 120 ML BOTTLE PO PRN (09:29)
--- NOTE | 2019-11-03 10:46 | Discharge Summary ---
Date of Service November 03, 2019 History of Present Illness Leisa Cross is a 49-year-old female admitted voluntarily for inpatient psychiatric treatment on 10/28/2019 after presenting to the ED for mental health evaluation. Pt had participated in an outpatient psychiatric appointment and reported increased depression, suicidal ideation, and worsening command auditory hallucinations telling her to end her life by overdosing on pills. Pt is known to us from numerous mental health hospitalizations and was last on our unit in 03/2019 for similar presentation. Pt indicates that she is "not good at all." She reports worsening depression over the past several months, but most significant decline in the last week. While patient is was likely minimizing with this provider, her pillowcase maker did report several recent stressors that have been affecting the patient's mood. Pt reportedly has a friend, Jd, who had within the last few months - someone that reportedly lived in the same building as the patient and a regular support the patient often talked to. It is also reported that the patient has been having difficulty adjusting to restrictions related to the COVID-19 pandemic. She has reportedly not been adjusting well to the increased isolation, several of her weekly obligations are not meeting, and there is limited support available through her mandaen. Pt's willingness for psychiatric assessment today was limited, though she was polite and pleasant. She did not move from her position laying in bed for the duration of our conversation, and often would conduct conversations with her eyes closed. Pt admits that she is "not good at all. I'm just really depressed and I'm hearing voices." Patient's impression is that the depression came "out of the blue" about 1 week ago. With repeat question, she is not able to spontaneously verbalize any acute situational stressors. Pt does confirm the loss of a close support "I think 1 month ago." She states that the voices have been louder, stating "they are telling me to hurt myself, telling me to overdose." Pt states that she arranges her weekly pill organizer, but otherwise her medications are kept in a lock box (patient has the villarreal). Pt denies any concerns related to sleep or appetite. She does admit that the quarantine with COVID-19 has "probably" been affecting her mood. She admits that many of her day programs are functioning differently due to the recent restrictions and that this has affected her schedule. Pt is not sure if any medication changes would be beneficial, but states that her brother would be willing to discuss medications with staff if desired. Pt admits to SI presently, but denies any acute temptations here on the unit to harm herself. Pt denies any acute needs or concerns at this time. Physical Exam Psychiatric Orientation: alert, oriented x 3 and cooperative Apperance: appropriately dressed, appropriately groomed and appeared stated age Eye Contact: + fair eye contact Motor Behavior: steady gait and station and no abnormal motor movements Speech: normal rate/rhythm/volume of speech Affect brighter, reactive, smiles appropriately several times. "Much better than when I came in. Thought Process: linear/logical thought process Thought Content: reality based without delusions Suicidal Thoughts: denies suicidal thoughts Homicidal Thoughts: denies homicidal thoughts Hallucinations: + auditory hallucinations (Auditory hallucinations of voices have decreased and are less intensive/distressing.); no visual hallucinations Cognition: recent memory grossly intact, remote memory grossly intact, attention grossly intact and language grossly intact Insight: good insight Judgement: good judgement Vital Signs (Past 24 Hours) Last Vital Signs Temp 36.4 C L 11/03/19 06:49 Pulse 80 11/03/19 06:51 Resp 18 11/03/19 06:49 BP 146/87 H 11/03/19 06:51 Pulse Ox 94 11/03/19 06:49 Principal Diagnosis Schizoaffective disorder, depressive type PETROS Panic disorder with agoraphobia Dependent and borderline personality traits Psychiatric Data The patient was hospitalized for 6 days. She requested a medication adjustment, and a cross taper from lamotrigine to lurasidone was initiated. She had previously been on lurasidone and tolerated it well. She attended and participated in groups and therapy, adapted her safety plan (as her friend and neighbor who is part of her safety plan had recently ), and her brother, Shon, was involved in treatment and participated in a family meeting. They discussed ways to increase her supports and structure at home, as these have been negatively impacted by the recent pandemic and related restrictions. We confirmed that her mobile psych rehab services are resuming this week, and some of her mandaen members are willing to come to her home to spend time with her and assist her. Her brother also offered to pay for an in-home service consultant if needed. Her mood and command auditory hallucinations improved throughout the course of her hospitalization, and suicidal thoughts resolved. Day of Discharge Assessment Patient reports her mood has improved from admission, rates it a 4.5/10, stating at baseline she is a 5/10. She denies suicidal thoughts and acute safety concerns, and feels she is ready to go home today. She says she is looking forward to returning home, as she can use her own shower and sleep in her own bed. She has worked on a comprehensive plan and is able to review her daily schedule for the next several days, plans to take shower, fill her prescriptions and med minder, and get together with a friend from her mandaen this afternoon. She also wants to clean up her apartment, as her mobile psych rehab will be coming to visit with her tomorrow. She contacted her employer, [employer], and clarified that she will not be resuming work there for at least another 3 to 4 weeks. In the interim, she plans to have in-home support provided by her mandaen friends, and she and her brother are making a list of people who are willing to come and spend time with her. She has meetings with her pillowcase maker and therapist this week, and will follow up with me next week. She denies side effects to medications. Transition of Care Transition Of Care Record: was reviewed with the patient Advance Directives Advance Directives Information Provided: Yes Advance Directives: No Mental Health Advance Directive: No Advance Directives on File: No Living Will: No Power of Supervisor Screen Printing: No Advance Directives Reason:: Declines as Mental Health Visit. Risk Factors Assessment Risk factors were mitigated by admission to the inpatient unit, adjusting medications to target depressive and psychotic symptoms, exploring ways to increase her supports and structure at home, involving her outpatient clinicians and supports, family meeting with her brother, participation in groups and therapy, and working on healthy coping skills and her discharge safety plan. She is reporting improved mood and hallucinations, and resolution of suicidal thoughts. She is eating and sleeping and taking medications as prescribed, attending to her ADLs independently, and denying acute safety concerns. She is requesting discharge, and as she is no longer at acute risk of harm to herself, can be managed as an outpatient at this time. Male: No : Yes Do You Have Access To A Gun?: No Health Problems: Yes Mental Health Diagnoses: Yes Substance Use Disorders: No Previous Attempt: Yes Family History of Suicide: No Previous Psychiatric Hospitalization: Yes Hopelessness: Yes Smoker: No Protective Factors Assessment Uatsdin Beliefs: Yes : No Responsible for Young Children: No Employed: No (Disability for mental health) Stable Relationships: Yes Supportive Family: Yes Good Rapport with Provider: Yes Tobacco Cessation at Discharge Tobacco Cessation Medication Prescribed at Discharge: Not Applicable/Non-Smoker Antipsychotic Medications Patient is on clozapine and lurasidone for augmentation. Total Time Total Time Spent: Greater Than 30 Minutes Total Time Includes: Examination of the patient, Discharge Planning, Medication Reconciliation and Communication with other providers Discharge Data Lab Results 10/28/19 10/28/19 10/28/19 16:02 16:02 16:02 WBC 7.84 RBC 4.08 L Hgb 10.3 L Hct 33.0 L MCV 80.9 MCH 25.2 MCHC 31.2 L RDW Std Deviation 45.6 RDW Coeff of Bret 15.4 H Plt Count 219 MPV 8.8 Immature Gran % (Auto) 0.1 Neut % (Auto) 66.3 Lymph % (Auto) 21.6 Davis % (Auto) 12.0 Eos % (Auto) 0.0 Baso % (Auto) 0.0 Immature Gran # (Auto) 0.01 Neut # (Auto) 5.20 Lymph # (Auto) 1.69 Davis # (Auto) 0.94 H Eos # (Auto) 0.00 Baso # (Auto) 0.00 Sodium 137 Potassium 3.2 L Chloride 102 Carbon Dioxide 22 Anion Gap 13.0 H BUN 23 H Creatinine 0.98 Est Cr Clr Drug Dosing Not Reportable Est GFR ( Amer) 77.4 Est GFR (Non-Af Amer) 66.8 BUN/Creatinine Ratio 23.5 H Glucose 136 H POC Glucose Calcium 8.5 Magnesium 1.6 L Total Bilirubin 0.4 AST 74 H ALT 67 Alkaline Phosphatase 114 Total Protein 7.3 Albumin 2.9 L Globulin 4.4 H Albumin/Globulin Ratio 0.7 L TSH 0.777 Urine Color Urine Appearance Urine pH Ur Specific [place] Urine Protein Urine Glucose (UA) Urine Ketones Urine Blood Urine Nitrite Urine Bilirubin Urine Urobilinogen Ur Leukocyte Esterase Urine WBC (Auto) Urine RBC (Auto) U Hyaline Cast (Auto) U Epithel Cells (Auto) Urine Bacteria (Auto) Urine Yeast Salicylates < 1.7 L Urine Opiates Screen Ur Methadone, Qual Acetaminophen < 2 L Urine Barbiturates Ur Phencyclidine (PCP) U Amphetamin/Meth Scrn MDMA (Ecstasy) Screen U Benzodiazepines Scrn Ur Cocaine Metabolite U Marijuana (THC) Screen Ethyl Alcohol mg/dL 10/28/19 10/28/19 10/28/19 16:02 16:34 16:34 WBC RBC Hgb Hct MCV MCH MCHC RDW Std Deviation RDW Coeff of Bret Plt Count MPV Immature Gran % (Auto) Neut % (Auto) Lymph % (Auto) Davis % (Auto) Eos % (Auto) Baso % (Auto) Immature Gran # (Auto) Neut # (Auto) Lymph # (Auto) Davis # (Auto) Eos # (Auto) Baso # (Auto) Sodium Potassium Chloride Carbon Dioxide Anion Gap BUN Creatinine Est Cr Clr Drug Dosing Est GFR ( Amer) Est GFR (Non-Af Amer) BUN/Creatinine Ratio Glucose POC Glucose Calcium Magnesium Total Bilirubin AST ALT Alkaline Phosphatase Total Protein Albumin Globulin Albumin/Globulin Ratio TSH Urine Color Dark Yellow Urine Appearance Turbid A Urine pH 5.0 Ur Specific [place] 1.026 Urine Protein 1+ H Urine Glucose (UA) Negative Urine Ketones Trace H Urine Blood 3+ H Urine Nitrite Negative Urine Bilirubin Negative Urine Urobilinogen Negative Ur Leukocyte Esterase 2+ H Urine WBC (Auto) >30 H Urine RBC (Auto) >30 H U Hyaline Cast (Auto) 0 U Epithel Cells (Auto) >30 H Urine Bacteria (Auto) 4+ H Urine Yeast Not Reportable Salicylates Urine Opiates Screen Neg Ur Methadone, Qual Neg Acetaminophen Urine Barbiturates Neg Ur Phencyclidine (PCP) Neg U Amphetamin/Meth Scrn Neg MDMA (Ecstasy) Screen Neg U Benzodiazepines Scrn Neg Ur Cocaine Metabolite Neg U Marijuana (THC) Screen Neg Ethyl Alcohol mg/dL < 3.0 10/29/19 10/30/19 10/31/19 08:26 08:02 07:27 WBC RBC Hgb Hct MCV MCH MCHC RDW Std Deviation RDW Coeff of Bret Plt Count MPV Immature Gran % (Auto) Neut % (Auto) Lymph % (Auto) Davis % (Auto) Eos % (Auto) Baso % (Auto) Immature Gran # (Auto) Neut # (Auto) Lymph # (Auto) Davis # (Auto) Eos # (Auto) Baso # (Auto) Sodium Potassium Chloride Carbon Dioxide Anion Gap BUN Creatinine Est Cr Clr Drug Dosing Est GFR ( Amer) Est GFR (Non-Af Amer) BUN/Creatinine Ratio Glucose POC Glucose 153 H 147 H 144 H Calcium Magnesium Total Bilirubin AST ALT Alkaline Phosphatase Total Protein Albumin Globulin Albumin/Globulin Ratio TSH Urine Color Urine Appearance Urine pH Ur Specific [place] Urine Protein Urine Glucose (UA) Urine Ketones Urine Blood Urine Nitrite Urine Bilirubin Urine Urobilinogen Ur Leukocyte Esterase Urine WBC (Auto) Urine RBC (Auto) U Hyaline Cast (Auto) U Epithel Cells (Auto) Urine Bacteria (Auto) Urine Yeast Salicylates Urine Opiates Screen Ur Methadone, Qual Acetaminophen Urine Barbiturates Ur Phencyclidine (PCP) U Amphetamin/Meth Scrn MDMA (Ecstasy) Screen U Benzodiazepines Scrn Ur Cocaine Metabolite U Marijuana (THC) Screen Ethyl Alcohol mg/dL 10/31/19 11/01/19 11/02/19 07:49 07:44 08:04 WBC RBC Hgb Hct MCV MCH MCHC RDW Std Deviation RDW Coeff of Bret Plt Count MPV Immature Gran % (Auto) Neut % (Auto) Lymph % (Auto) Davis % (Auto) Eos % (Auto) Baso % (Auto) Immature Gran # (Auto) Neut # (Auto) Lymph # (Auto) Davis # (Auto) Eos # (Auto) Baso # (Auto) Sodium 136 Potassium 3.5 Chloride 100 Carbon Dioxide 29 Anion Gap 7.0 BUN 14 Creatinine 0.62 Est Cr Clr Drug Dosing 140.3 Est GFR ( Amer) 121.0 Est GFR (Non-Af Amer) 104.4 BUN/Creatinine Ratio 22.6 H Glucose 132 H POC Glucose 131 H 125 H Calcium 9.3 Magnesium Total Bilirubin AST ALT Alkaline Phosphatase Total Protein Albumin Globulin Albumin/Globulin Ratio TSH Urine Color Urine Appearance Urine pH Ur Specific [place] Urine Protein Urine Glucose (UA) Urine Ketones Urine Blood Urine Nitrite Urine Bilirubin Urine Urobilinogen Ur Leukocyte Esterase Urine WBC (Auto) Urine RBC (Auto) U Hyaline Cast (Auto) U Epithel Cells (Auto) Urine Bacteria (Auto) Urine Yeast Salicylates Urine Opiates Screen Ur Methadone, Qual Acetaminophen Urine Barbiturates Ur Phencyclidine (PCP) U Amphetamin/Meth Scrn MDMA (Ecstasy) Screen U Benzodiazepines Scrn Ur Cocaine Metabolite U Marijuana (THC) Screen Ethyl Alcohol mg/dL 11/03/19 07:56 WBC RBC Hgb Hct MCV MCH MCHC RDW Std Deviation RDW Coeff of Bret Plt Count MPV Immature Gran % (Auto) Neut % (Auto) Lymph % (Auto) Davis % (Auto) Eos % (Auto) Baso % (Auto) Immature Gran # (Auto) Neut # (Auto) Lymph # (Auto) Davis # (Auto) Eos # (Auto) Baso # (Auto) Sodium Potassium Chloride Carbon Dioxide Anion Gap BUN Creatinine Est Cr Clr Drug Dosing Est GFR ( Amer) Est GFR (Non-Af Amer) BUN/Creatinine Ratio Glucose POC Glucose 127 H Calcium Magnesium Total Bilirubin AST ALT Alkaline Phosphatase Total Protein Albumin Globulin Albumin/Globulin Ratio TSH Urine Color Urine Appearance Urine pH Ur Specific [place] Urine Protein Urine Glucose (UA) Urine Ketones Urine Blood Urine Nitrite Urine Bilirubin Urine Urobilinogen Ur Leukocyte Esterase Urine WBC (Auto) Urine RBC (Auto) U Hyaline Cast (Auto) U Epithel Cells (Auto) Urine Bacteria (Auto) Urine Yeast Salicylates Urine Opiates Screen Ur Methadone, Qual Acetaminophen Urine Barbiturates Ur Phencyclidine (PCP) U Amphetamin/Meth Scrn MDMA (Ecstasy) Screen U Benzodiazepines Scrn Ur Cocaine Metabolite U Marijuana (THC) Screen Ethyl Alcohol mg/dL Hospital Course (1) Suicidal ideation: 10/28 - Admitted to a locked inpatient behavioral health unit, on q15 minute safety checks - Encourage medication initiation/adjustments as indicated - Encourage participation in group and recreational therapies - Gather collateral information from outpatient providers - Suggest family meeting to involve outpatient supports in safety planning - Arrange appropriate aftercare 11/01 - Denying active SI today 11/02 -Suicidal thoughts have resolved. Patient is able to review her discharge safety plan and denies acute safety concerns. (2) Schizoaffective disorder, depressive type: 10/28 - Continue current medication regimen at this time: clozapine, escitalopram, lamotrigine, buspirone, and prn clonazepam - Fasting glucose and lipid panel last obtained on 09/20/2019: glucose - 119; triglycerides - 141, cholesterol - 147, LDL - 77, and HDL - 42 - Reviewed presentation with patient's outpatient psychiatrist, who is agreeable with not making acute medication adjustments at this time - it is most likely that patient's presentation is related to several situational stressors ( of a close support, isolation related to COVID-19 virus, and significant limitations of supports being able to interact with her as they normally would due to social distancing protocols). Further medication adjustments can be discussed as indicated. - Constantino Galloway pillowcase maker provided collateral information to nurses today - Encourage attendance in group programming to discuss recent situational stressors and continue to develop healthy and effective coping strategies 10/29 -Patient would like a retrial of lurasidone, which she recalls working well in the past. She does not feel lamotrigine has been especially beneficial, so we will cross titrate; reduce lamotrigine to 150 mg daily, and start lurasidone 40 mg daily with dinner. Reviewed risks, benefits, and side effects. She has been on it before and tolerated it well. -She will need a family meeting with her brother, Shon, who is her primary support, and possibly also her pillowcase maker. Explore ways to increase supports in the community (return to [email or web address] when it reopens, check on status of application for waiver services and in-home service consultant, explore options for connection with her mandaen). 10/30 -Continue cross titration, schedule family meeting with brother, and tomorrow will explore her community supports ([facility], [facility], [employer], in- home service consultant). -Coordinated with therapist Lamar Miller and advised of hospitalization. 10/31 -Continue cross titration and decrease lamotrigine to 100 mg every morning starting tomorrow, while continuing lurasidone 40 mg daily with dinner. Family meeting with brother today, and will contact pillowcase maker to coordinate care and review her current outpatient supports/daily structure. 11/01 - Continue current medication regimen - ongoing cross-titration from lamotrigine to lurasidone - no further adjustment today as patient reporting diarrhea, though more likely related to patient's history of IBS - Phone meeting with brother yesterday, discussed coordination of additional supports - Pt denying active SI, considering that she may be ready for discharge tomorrow. 11/02 -Discharge to home at patient's request, presenting symptoms have improved and she feels safe with discharge. -Continue cross titration; prescriptions issued for lamotrigine 100 mg daily and lurasidone 40 mg daily. Follow-up with me 11/11/2019, and therapist 11/05/2019. She will see her mobile psych rehab worker Jose E tomorrow, and her BCM Arsh later this week. A friend from mandaen will be coming to sit with her several days a week. (3) Anxiety: 10/28 - Continue buspirone 20mg TID - Continue clonazepam 0.5mg BID as needed (4) Personality disorder: - Borderline and dependent traits. DBT has historically been recommended, but there are very limited options locally. Continue coordination with outpatient providers and maintain appropriate boundaries during inpatient hospitalization. (5) UTI (urinary tract infection): 10/28 - Abnormal urinalysis with urine sent for culture. Preliminary result of gram negative bacilli. Sensitivities to follow. - Pt denies symptoms of UTI at this time 10/29 -Culture shows Klebsiella pneumoniae, patient remains asymptomatic, treatment not indicated. (6) Hypokalemia: 10/28 - Pt was hypokalemic on presentation to the ED - 3.2 - Potassium repleated with oral dose of 40meq - Will observe nutritional intake and repeat if indicated 10/29 -Eating some of each meal, and had episode of diarrhea yesterday. Continue to encourage good p.o. intake, and recheck electrolytes tomorrow 10/30 -Potassium normalized today at 3.5. (7) Vitamin D deficiency: - Continue current dose of Vitamin D3 - 1,000 IU qAM - Pt states she takes a monthly dose of Vitamin D3 - 50,000 IU on the first of each month. Will order for 11/01/2019 as it is anticipated patient will be here through that date (8) IBS (irritable bowel syndrome): 10/28 - Pt requesting, and has historically received, Imodium A-D for episodes of diarrhea. Pt requesting a prn order in case this should be required during her stay - She reports using the medication at home about once a month (9) Hypertension: - Continue home doses of losartan (10) Hypothyroidism: - Continue home dose of levothyroxine 125mcg daily prior to breakfast (11) Type 2 diabetes mellitus: - Continue home dose of metformin 1,000mg BID with meals (12) Dyslipidemia: - Continue home dose of atorvastatin Mental Health & Subst Abuse [facility]x Psychiatrist Name of Psychiatrist: [facility] - Dr. Urbina Psychiatrist's Date of Appointment with Psychiatrist: 11/11/19 Time of Appointment with Psychiatrist: 2:50 p.m. Psychiatric Appointment Comment: [address] [facility], [place] Therapist Name of Therapist: Abdulkadir Miller Therapist's Date of Therapist Appointment: 11/05/19 Time of Therapist Appointment: 2:00 p.m. Therapy Appointment Comment: [address] [facility] [place] Stem Crusher Name of Stem Crusher: Constantino Bentley Phone Number for Stem Crusher: [phone] Date of Appointment with Stem Crusher: 11/05/19 Time of Appointment with Stem Crusher: 1:00 p.m. - will come see you and assist you with appt with Lamar Case Management Appointment Comment: Will contact you morning Post Discharge Appointments Primary Care Physician Name Of Family Doctor: [facility] - Dr. Tam Primary Care Time of Appointment with PCP: Please follow up as scheduled Provider Appointment Comment: [id number] [facility] Partial or Psych Rehab Name of Partial or Psych Rehab: [employer] [facility] - Jose E Phone Number of Partial or Psych Rehab: [phone] Date of Appointment at Partial or Psych Rehab: 11/04/19 Partial or Psych Rehab Appointment Comment: [address] Smoking Cessation Counseling Tobacco Cessation Medication Prescribed at Discharge: Not Applicable/Non-Smoker Contact Information Discharge Discharge Address: [address] [place] [id number] Discharge Plan Discharge Items Patient Disposition: Home - Self-Care Reason For Visit: SCHIZOAFFECTIVE DISORDER Discharge Diagnosis: Schizoaffective disorder bipolar type Activity: Per Instructions section Non-emergency contact: Psychiatrist, Therapist and Grinding Room Supervisor Call non-emergency contact if: you have any medication questions and your symptoms worsen Follow-up/Referrals: ProNiles MD [Primary Care Provider] - Diet: Regular Addtl Attending Provider Instructions: SPECIAL CARE INSTRUCTIONS: 1. Follow through with your scheduled aftercare appointments. If unable to keep an appointment, please call to reschedule. 2. Take your medication only as prescribed. Medication should not be changed or stopped without the approval of your doctor. In the event of worsening symptoms or concerns about side effects, contact your doctor immediately. 3. Utilize new healthy coping skills, anger management skills, and stress management skills learned during your hospitalization. Journal feelings and process them with a support person. Identify stressors or situations that may result in relapse, deterioration or inappropriate behaviors and develop a plan to deal with those issues. 4. If your coping skills are ineffective and you are in crisis, contact your outpatient providers for direction. If unable to reach your providers, please call the CAN HELP LINE AT or go to the closest Emergency Room. 5. Avoid alcohol and un-prescribed drugs. 6. You have been provided with the Mental Health Advance Directives Pamphlet for your review. AFTERCARE APPOINTMENTS: * Please call your insurance company prior to your scheduled appointment to confirm your aftercare providers are covered. Take your insurance information to your appointments. WHO TO CALL AND WHEN: Medical Emergencies: For questions or emergencies related to your hospital stay, please contact the Inpatient Behavioral Health Unit at [phone]. A land surveying manager is on-call 23/12 for the Behavioral Health Unit for emergencies At any time you feel your situation is an emergency, you may also call 911 immediately. Your Doctors Instructions noted above were prepared by provider Archana Urbina MD. Pending Studies at Discharge: No Stand-Alone Forms: My [facility], Smoking Cessation, Suicide Prevention Resources Medications and DC Order Prescriptions: New lamotrigine 100 mg Tablet 100 mg PO QAM Qty: 30 RF: 0 Latuda 40 mg Tablet 40 mg PO QDD Qty: 30 RF: 0 Continued buspirone 10 mg tablet 20 mg PO TID RF: 0 ergocalciferol (vitamin D2) [Vitamin D2] 50,000 unit capsule 50,000 unit PO MONTHLY Qty: 12 RF: 3 metformin [Glucophage] 500 mg tablet 1,000 mg PO BID Qty: 360 RF: 3 atorvastatin [Lipitor] 20 mg tablet 20 mg PO HS Qty: 30 RF: 5 estradiol 1 mg tablet 1 mg PO DAILY Qty: 30 RF: 11 cholecalciferol (vitamin D3) [Vitamin D3] 25 mcg (1,000 unit) capsule 1,000 units PO QAM Qty: 90 RF: 3 clonazepam 0.5 mg tablet 0.5 mg PO BID PRN (Reason: anxiety) RF: 0 clozapine 200 mg tablet,disintegrating 200 mg PO HS RF: 0 clozapine 50 mg tablet 50 mg PO DIRECTED RF: 0 trazodone 100 mg tablet 100 mg PO HS PRN (Reason: Sleep) RF: 0 desmopressin 0.2 mg tablet 0.2 mg PO HS RF: 0 escitalopram oxalate [Lexapro] 20 mg tablet 20 mg PO QAM RF: 0 losartan [Cozaar] 50 mg tablet 50 mg PO QAM RF: 0 levothyroxine [Synthroid] 125 mcg tablet 125 mcg PO QAM RF: 0 montelukast 10 mg tablet 10 mg PO HS RF: 0 Discontinued lamotrigine [Lamictal] 200 mg tablet 200 mg PO QAM RF: 0 Discharge Orders: Discharge Order (Routine); Ordered 11/03/19 Ordered By: Archana Urbina Admission Data Admit Date/Time: 10/28/19 20:53 Attending Provider: Archana Urbina Admit Provider: Sarita Nicole Primary Care Provider: Niles Tam Other Interventions: JAMEL Interdisciplinary Discharge Planning Last Done: 11/02/19 15:05 Coding Level of Care Code 86276 D/C day mgmt > 30 min Diagnoses Suicidal ideation R45.851 Schizoaffective disorder, depressive type F25.1 Anxiety F41.9 Personality disorder F60.9 UTI (urinary tract infection) N39.0 Hypokalemia E87.6 Vitamin D deficiency E55.9 IBS (irritable bowel syndrome) K58.9 Hypertension I10 Hypothyroidism E03.9 Type 2 diabetes mellitus E11.9 Dyslipidemia E78.5
== END 2019-11-03 11:30 | disposition home or self-care (01) | DRG 885 ==
LOC: ED 15:29 → SUATTDRO 20:53 → 3S 20:53

== ENCOUNTER 2019-12-31 12:34 | Inpatient (IN) ==
[2019-12-31] MEDS ORDERED: SODIUM CHLORIDE 0.9% 1000ML 1,000 ML IV SCH ×2 (13:15→19:00)
[2019-12-31 13:46] LABS: Hematocrit (blood only) 33.8 % (37-47); Hemoglobin 11.4 g/dL (12.0-16.0); Immature Granulocytes # (auto) 0.04 K/uL (0.00-0.02); Immature Granulocytes % (auto) 0.4 %; Lymphocytes # (auto) 2.17 K/uL (1.2-3.4); Lymphocytes % (auto) 19.3 %; Mean Corpuscular Hemoglobin 25.4 pg (25-34); Mean Corpuscular Hgb Conc 33.7 g/dL (32-36); Mean Corpuscular Volume 75.4 fL (80-100); Mean Platelet Volume 9.2 fL (7.4-10.4); Monocytes # (auto) 0.89 K/uL (0.11-0.59); Monocytes % (auto) 7.9 %; Neutrophils # (auto) 8.16 K/uL (1.4-6.5); Neutrophils % (auto) 72.4 %; Platelet Count 281 K/uL (130-400); RDW Coefficient of Variation 14.9 % (11.5-14.5); RDW Standard Deviation 41.6 fL (36.4-46.3); Red Blood Count 4.48 M/uL (4.2-5.4); White Blood Count 11.26 K/uL (4.8-10.8)
--- NOTE | 2019-12-31 13:55 | XRay Report ---
XR chest 1V portable CLINICAL HISTORY: fever COMPARISON STUDY: Chest radiograph June 06, 2019. FINDINGS: Patient is rotated. No pneumothorax or pleural effusion is noted. Lung volumes are mildly d iminished. This is unchanged. There is no consolidation to suggest pneumonia and there is no evidence for pulmonary edema. Borderline cardiomegaly is unchanged. IMPRESSION: No acute cardiopulmonary findings. No change in appearance of the chest. ACT 112: Negative or not required by law. Electronically signed by: Mathew Mcguire M.D. 12/31/2019 1:54 PM
--- NOTE | 2019-12-31 14:04 | Emergency Department Note ---
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 She states she has a plan to overdose on pills although denies having any excessive ingestions. The patient states this has been going on for the last several days. She was seen by her psychiatrist yesterday and the Latuda dose was increased, however the patient was unable to obtain the refill and start the higher dose. Patient presents to the emergency department with her intensive case packer and sealer. She verifies the patient very rarely leaves her home and does have difficulty with exertion. She has a friend buying and delivering groceries to her. Patient denies any cough, shortness of breath, chest pain, abdominal pain, vomiting or diarrhea. Denies any recent urinary symptoms however does have a history of UTI. Home Medications Home Medications Medication Instructions Recorded Confirmed Type escitalopram oxalate [Lexapro] 20 mg PO QAM 02/25/18 12/31/19 History clonazepam 0.5 mg tablet 0.5 mg PO BID PRN tab 01/11/19 12/31/19 History buspirone 10 mg tablet 20 mg PO TID tab 01/22/19 12/31/19 History ergocalciferol (vitamin D2) 1,250 50,000 unit PO MONTHLY #12 cap 02/03/19 12/31/19 Rx mcg (50,000 unit) capsule metformin 500 mg tablet 1,000 mg PO BID #360 tab 02/08/19 12/31/19 Rx clozapine 200 mg disintegrating 200 mg PO HS tab 02/15/19 12/31/19 History tablet losartan [Cozaar] 50 mg PO QAM 06/06/19 12/31/19 History montelukast 10 mg PO HS 06/06/19 12/31/19 History estradiol 1 mg tablet 1 mg PO DAILY #30 tab 07/20/19 12/31/19 Rx cholecalciferol (vitamin D3) 25 1,000 units PO QAM #90 cap 08/23/19 12/31/19 Rx mcg (1,000 unit) capsule clozapine 50 mg PO DIRECTED 10/28/19 12/31/19 History desmopressin 0.2 mg PO HS 10/28/19 12/31/19 History trazodone 100 mg PO HS PRN 10/28/19 12/31/19 History lamotrigine 100 mg PO QAM #30 tab 11/03/19 12/31/19 Rx atorvastatin 20 mg tablet 20 mg PO HS #30 tab 11/18/19 12/31/19 Rx levothyroxine 125 mcg tablet 125 mcg PO QAM #90 tab 12/29/19 12/31/19 Rx lurasidone [Latuda] 80 mg PO DAILY 12/31/19 12/31/19 History Allergies Allergy/AdvReac Type Severity Reaction Status Date / Time prednisone Allergy Severe hallucinati Verified 06/06/19 10:01 ons chlorpromazine Allergy Mild LIGHTHEADED Verified 06/06/19 10:01 SHUFFLING GAIT aspirin Allergy Unknown Unknown Verified 06/06/19 10:01 doxycycline Allergy Unknown HEARING Verified 06/06/19 10:01 VOICES, depression levofloxacin Allergy Unknown ?ALLERGIC Verified 06/06/19 10:01 TO LEVAQUIN? NSAIDS (Non-Steroidal Allergy Unknown . Verified 06/06/19 10:01 Anti-Inflamma Penicillins Allergy Unknown RASH, Verified 06/06/19 10:01 nausea and vomitting quinine Allergy Unknown Unknown Verified 06/06/19 10:01 theophylline [From [facility]] AdvReac Verified 06/06/19 10:01 Past Med/Surg History Medical History Asthma (Chronic) Bacterial pneumonia (Resolved 01/11/11) Dyslipidemia (Chronic) Fatty liver Hepatosplenomegaly Hypertension (Chronic) Hypothyroidism (Chronic) Hypoxemia (Resolved) IBS (irritable bowel syndrome) Influenza (Inactive 2019) Schizoaffective disorder, depressive type (Chronic 01/11/11) Type 2 diabetes mellitus (Chronic) Surgical History H/O wisdom tooth extraction H/O: hysterectomy History of thyroid surgery Family History Mother Breast cancer Hypertension Stroke Unknown Hypertension Father Hypertension Heart disease Cancer Grandfather Heart disease Stroke Brother Myocardial infarction Grandmother (Maternal) Colon cancer Grandmother Stroke Denies family history of Ovarian cancer Prostate cancer Social History Smoking Status: Former smoker Second Hand Exposure: No; Hx Alcohol Use: No Hx Substance Use: No Preferred Language: Upper Sorbian Communication Ability: Effective Visual Impairment: No Limitations Hearing Ability: Normal 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 and A total of 10 systems reviewed and were otherwise negative Physical Exam Vital Signs Vital Signs - 24 hr 12/31/19 16:43 Temperature 37.2 C Temperature Source Oral Pulse Rate [Left Finger] 89 Respiratory Rate 22 Blood Pressure [Right Arm] 154/101 H Blood Pressure Mean [Right Arm] 118 Pulse Oximetry 96 Vital signs reviewed. General: Chronically ill-appearing 49-year-old female, in no significant distress. Flat affect, looking at the ground. HEENT: No scleral icterus, PERRLA, neck supple. Atraumatic. Cardiovascular: Regular rate and rhythm, no extra sounds. Pulmonary: Clear to auscultation bilaterally, normal work of breathing. Abdomen: Soft, morbidly obese, nontender, nondistended, positive bowel sounds. Musculoskeletal: Atraumatic, no peripheral edema. Neurologic: Patient awake alert and oriented x 3 Psych: Positive SI with plan, negative HI Skin: Warm, dry, no rash Course Administered Medications Atorvastatin Calcium (Lipitor) 20 mg PO HS JOSE Stop: 01/30/20 20:59 Last Admin: 12/31/19 21:55 Dose: 20 mg Documented by: [id number] Buspirone HCl (Buspar) 20 mg PO TID JOSE Stop: 01/30/20 20:59 Last Admin: 01/01/20 14:09 Dose: 20 mg Documented by: [id number] Admin: 01/01/20 08:49 Dose: 20 mg Documented by: [id number] Admin: 12/31/19 21:55 Dose: 20 mg Documented by: [id number] Clonazepam (Klonopin) 0.5 mg PO BID PRN PRN Reason: anxiety Stop: 01/30/20 18:15 Last Admin: 12/31/19 22:17 Dose: 0.5 mg Documented by: [id number] Clozapine (Clozaril) 50 mg PO QAM [facility] Stop: 01/31/20 09:59 Last Admin: 01/01/20 12:43 Dose: 50 mg Documented by: [id number] Enoxaparin Sodium (Lovenox) 40 mg SQ Q12H [facility] Stop: 01/30/20 20:59 Last Admin: 01/01/20 09:03 Dose: 40 mg Documented by: [id number] Admin: 12/31/19 22:05 Dose: 40 mg Documented by: [id number] Ergocalciferol (Vitamin D2) 50,000 units PO TODAY@0900 [facility] Stop: 01/31/20 08:59 Last Admin: 01/01/20 08:47 Dose: 50,000 units Documented by: [id number] Escitalopram Oxalate (Lexapro Tab) 20 mg PO [facility] Stop: 01/31/20 08:59 Last Admin: 01/01/20 08:48 Dose: 20 mg Documented by: [id number] Estradiol (Estrace) 1 mg PO DAILY [facility] Stop: 01/31/20 08:59 Last Admin: 01/01/20 08:48 Dose: 1 mg Documented by: [id number] Ceftriaxone Sodium 2,000 mg/ (Dextrose) 50 mls @ 100 mls/hr IV Q24H [facility]; Protocol Stop: 01/05/20 18:15 Last Admin: 12/31/19 18:46 Dose: Not Given Documented by: [id number] Potassium Chloride 20 meq/ (Sodium Chloride) 1,010 mls @ 100 mls/hr IV .Q10H6M [facility] Stop: 01/31/20 08:29 Last Admin: 01/01/20 08:39 Dose: 100 mls/hr Documented by: [id number] Insulin Aspart (Novolog Flexpen) 0 units SC ACHS [facility] Stop: 01/30/20 20:59 Last Admin: 01/01/20 14:12 Dose: 3 units Documented by: [id number] Cosigned by: [id number] Admin: 01/01/20 09:08 Dose: 2 units Documented by: [id number] Cosigned by: [id number] Admin: 12/31/19 22:13 Dose: Not Given Documented by: [id number] Cosigned by: [id number] Levothyroxine Sodium (Synthroid) 125 mcg PO QAM JOSE Stop: 01/31/20 08:59 Last Admin: 01/01/20 08:51 Dose: 125 mcg Documented by: [id number] Losartan Potassium (Cozaar) 50 mg PO QAM JOSE Stop: 01/31/20 08:59 Last Admin: 01/01/20 08:50 Dose: 50 mg Documented by: [id number] Montelukast Sodium (Singulair) 10 mg PO HS JOSE Stop: 01/30/20 20:59 Last Admin: 12/31/19 22:51 Dose: 10 mg Documented by: [id number] Vitamin D (Vitamin D3) 1,000 units PO QAM JOSE Stop: 01/31/20 08:59 Last Admin: 01/01/20 08:49 Dose: 1,000 units Documented by: [id number] Discontinued Medications Albuterol (Ventolin 0.083% 2.5mg/3ml) 2.5 mg NEB NOW STA Stop: 12/31/19 20:39 Last Admin: 12/31/19 20:43 Dose: 2.5 mg Documented by: [id number] Ceftriaxone Sodium (Rocephin) Confirm Administered Dose 2,000 mg IV .STK-MED ONE Stop: 12/31/19 15:11 Last Admin: 12/31/19 15:21 Dose: Not Given Documented by: [id number] Enoxaparin Sodium (Lovenox) 40 mg SQ Q24H JOSE Stop: 01/30/20 18:54 Last Admin: 01/01/20 00:37 Dose: Not Given Documented by: [id number] Sodium Chloride (Nss 1000ml) 1,000 mls @ 999 mls/hr IV .Q1H1M JOSE Stop: 12/31/19 14:15 Last Infusion: 12/31/19 15:00 Dose: 0 mls/hr Documented by: [id number] Admin: 12/31/19 14:01 Dose: 999 mls/hr Documented by: [id number] Sodium Chloride (Nss 1000ml) 1,000 mls @ 150 mls/hr IV .Q6H40M STA Stop: 12/31/19 21:25 Last Infusion: 12/31/19 17:57 Dose: 0 mls/hr Documented by: [id number] Admin: 12/31/19 15:21 Dose: 150 mls/hr Documented by: [id number] Ceftriaxone Sodium 2,000 mg/ (Dextrose) 70 mls @ 140 mls/hr IV NOW STA Stop: 12/31/19 15:20 Last Infusion: 12/31/19 15:56 Dose: 0 mls/hr Documented by: [id number] Admin: 12/31/19 15:21 Dose: 140 mls/hr Documented by: [id number] Sodium Chloride (Nss 1000ml) 1,000 mls @ 999 mls/hr IV .Q1H1M ONE Stop: 12/31/19 16:24 Last Infusion: 12/31/19 17:57 Dose: 0 mls/hr Documented by: [id number] Admin: 12/31/19 15:26 Dose: 999 mls/hr Documented by: [id number] Sodium Chloride (Nss 1000ml) 1,000 mls @ 100 mls/hr IV .Q10H JOSE Stop: 01/30/20 18:54 Last Infusion: 01/01/20 13:56 Dose: 0 mls/hr Documented by: [id number] Infusion: 01/01/20 06:32 Dose: 100 mls/hr Documented by: [id number] Admin: 01/01/20 00:25 Dose: 100 mls/hr Documented by: [id number] Infusion: 01/01/20 00:25 Dose: 150 mls/hr Documented by: [id number] Admin: 12/31/19 19:56 Dose: 150 mls/hr Documented by: [id number] Magnesium Sulfate/Dextrose (Magnesium Sulfate / D5w) 1 gm in 100 mls @ 50 mls/hr IV Q2H JOSE Stop: 01/01/20 15:59 Last Admin: 01/01/20 14:48 Dose: 50 mls/hr Documented by: [id number] Infusion: 01/01/20 14:47 Dose: 0 mls/hr Documented by: [id number] Admin: 01/01/20 12:41 Dose: 50 mls/hr Documented by: [id number] Infusion: 01/01/20 12:38 Dose: 0 mls/hr Documented by: [id number] Admin: 01/01/20 10:38 Dose: 50 mls/hr Documented by: [id number] Ioversol (Optiray 320 100ml) 95 ml IV ONCE ONE Stop: 12/31/19 16:21 Last Admin: 12/31/19 16:21 Dose: 95 ml Documented by: [id number] Lurasidone HCl (Latuda) 80 mg PO DAILY JOSE Stop: 01/31/20 08:59 Last Admin: 01/01/20 08:48 Dose: 80 mg Documented by: [id number] Potassium Chloride (Klor-Con M20) 40 meq PO NOW STA Stop: 12/31/19 14:31 Last Admin: 12/31/19 15:21 Dose: 40 meq Documented by: [id number] Potassium Chloride (Klor-Con M20) 20 meq PO NOW STA Stop: 01/01/20 08:07 Last Admin: 01/01/20 14:47 Dose: 20 meq Documented by: [id number] Medical Decision Making Differential Diagnosis Differential diagnosis: Etiologies such as psychiatric disorder, infection, hypoglycemia, electrolyte abnormalities, cardiac sources, intracerebral event, toxicological process, neurologic disorder, as well as others were entertained. Medical Records Attestation: I reviewed the patient's medical records. Home Medications Current Medication List: was personally reviewed by me Laboratory Data Attestation: I reviewed the patient's lab results. Result diagrams: 01/01/20 05:28 01/01/20 05:28 Lab Results 12/31/19 12/31/19 12/31/19 Range/Units 13:34 13:34 13:34 WBC 11.26 H (4.8-10.8) K/uL RBC 4.48 (4.2-5.4) M/uL Hgb 11.4 L (12.0-16.0) g/dL Hct 33.8 L (37-47) % MCV 75.4 L (80-100) fL MCH 25.4 (25-34) pg MCHC 33.7 (32-36) g/dL RDW Std Deviation 41.6 (36.4-46.3) fL RDW Coeff of Bret 14.9 H (11.5-14.5) % Plt Count 281 (130-400) K/uL MPV 9.2 (7.4-10.4) fL Immature Gran % (Auto) 0.4 % Neut % (Auto) 72.4 % Lymph % (Auto) 19.3 % [place] % (Auto) 7.9 % Eos % (Auto) 0.0 % Baso % (Auto) 0.0 % Neut # (Auto) 8.16 H (1.4-6.5) K/uL Lymph # (Auto) 2.17 (1.2-3.4) K/uL [place] # (Auto) 0.89 H (0.11-0.59) K/uL Eos # (Auto) 0.00 (0-0.5) K/uL Baso # (Auto) 0.00 (0-0.2) K/uL Immature Gran # (Auto) 0.04 H (0.00-0.02) K/uL Sodium 130 L (136-145) mmol/L Potassium 3.0 L (3.5-5.1) mmol/L Chloride 97 L (98-107) mmol/L Carbon Dioxide 21 (21-32) mmol/L Anion Gap 12.0 H (3-11) BUN 16 (7-18) mg/dl Creatinine 1.07 (0.6-1.2) mg/dl Est Cr Clr Drug Dosing 81.1 ml/min Est GFR ( Amer) 69.6 Est GFR (Non-Af Amer) 60.1 BUN/Creatinine Ratio 15.3 (10-20) Glucose 111 H (70-99) mg/dl Lactate (0.4-2.0) mmol/L Calcium 8.5 (8.5-10.1) mg/dl Iron (35-150) mcg/dl TIBC (250-450) mcg/dl Transferrin (200-360) mg/dl Ferritin (8-388) ng/ml Total Bilirubin 0.4 (0.2-1) mg/dl AST 11 L (15-37) U/L ALT 21 (12-78) U/L Alkaline Phosphatase 101 (45-117) U/L Total Protein 7.5 (6.4-8.2) gm/dl Albumin 3.5 (3.4-5.0) gm/dl Globulin 4.0 (2.5-4.0) gm/dl Albumin/Globulin Ratio 0.9 (0.9-2) TSH 0.285 L (0.300-4.500) uIu/ml Free T4 1.33 (0.8-1.6) ng/dl Urine Color Urine Appearance (Clear) Urine pH (4.5-7.5) Ur Specific [place] (1.000-1.030) Urine Protein (Negative) Urine Glucose (UA) (Negative) Urine Ketones (Negative) Urine Blood (Negative) Urine Nitrite (Negative) Urine Bilirubin (Negative) Urine Urobilinogen (Negative) Ur Leukocyte Esterase (Negative) Urine WBC (Auto) (0-5) /hpf Urine RBC (Auto) (0-4) /hpf U Hyaline Cast (Auto) (0-5) /lpf U Epithel Cells (Auto) (0-5) /lpf Urine Bacteria (Auto) (Negative) Salicylates < 1.7 L (2.8-20) mg/dl Urine Opiates Screen (Neg) Ur Methadone, Qual (Neg) Acetaminophen < 2 L (10-30) ug/ml Urine Barbiturates (Neg) Ur Phencyclidine (PCP) (Neg) U Amphetamin/Meth Scrn (Neg) MDMA (Ecstasy) Screen (Neg) U Benzodiazepines Scrn (Neg) Ur Cocaine Metabolite (Neg) U Marijuana (THC) Screen (Neg) Ethyl Alcohol mg/dL (0-3) mg/dl COVID-19 PCR (Negative) 12/31/19 12/31/19 12/31/19 Range/Units 13:34 13:34 13:34 WBC (4.8-10.8) K/uL RBC (4.2-5.4) M/uL Hgb (12.0-16.0) g/dL Hct (37-47) % MCV (80-100) fL MCH (25-34) pg MCHC (32-36) g/dL RDW Std Deviation (36.4-46.3) fL RDW Coeff of Bret (11.5-14.5) % Plt Count (130-400) K/uL MPV (7.4-10.4) fL Immature Gran % (Auto) % Neut % (Auto) % Lymph % (Auto) % [place] % (Auto) % Eos % (Auto) % Baso % (Auto) % Neut # (Auto) (1.4-6.5) K/uL Lymph # (Auto) (1.2-3.4) K/uL [place] # (Auto) (0.11-0.59) K/uL Eos # (Auto) (0-0.5) K/uL Baso # (Auto) (0-0.2) K/uL Immature Gran # (Auto) (0.00-0.02) K/uL Sodium (136-145) mmol/L Potassium (3.5-5.1) mmol/L Chloride (98-107) mmol/L Carbon Dioxide (21-32) mmol/L Anion Gap (3-11) BUN (7-18) mg/dl Creatinine (0.6-1.2) mg/dl Est Cr Clr Drug Dosing ml/min Est GFR ( Amer) Est GFR (Non-Af Amer) BUN/Creatinine Ratio (10-20) Glucose (70-99) mg/dl Lactate 4.0 H* (0.4-2.0) mmol/L Calcium (8.5-10.1) mg/dl Iron 23 L (35-150) mcg/dl TIBC 352 (250-450) mcg/dl Transferrin 238 (200-360) mg/dl Ferritin 73.4 (8-388) ng/ml Total Bilirubin (0.2-1) mg/dl AST (15-37) U/L ALT (12-78) U/L Alkaline Phosphatase (45-117) U/L Total Protein (6.4-8.2) gm/dl Albumin (3.4-5.0) gm/dl Globulin (2.5-4.0) gm/dl Albumin/Globulin Ratio (0.9-2) TSH (0.300-4.500) uIu/ml Free T4 (0.8-1.6) ng/dl Urine Color Urine Appearance (Clear) Urine pH (4.5-7.5) Ur Specific [place] (1.000-1.030) Urine Protein (Negative) Urine Glucose (UA) (Negative) Urine Ketones (Negative) Urine Blood (Negative) Urine Nitrite (Negative) Urine Bilirubin (Negative) Urine Urobilinogen (Negative) Ur Leukocyte Esterase (Negative) Urine WBC (Auto) (0-5) /hpf Urine RBC (Auto) (0-4) /hpf U Hyaline Cast (Auto) (0-5) /lpf U Epithel Cells (Auto) (0-5) /lpf Urine Bacteria (Auto) (Negative) Salicylates (2.8-20) mg/dl Urine Opiates Screen (Neg) Ur Methadone, Qual (Neg) Acetaminophen (10-30) ug/ml Urine Barbiturates (Neg) Ur Phencyclidine (PCP) (Neg) U Amphetamin/Meth Scrn (Neg) MDMA (Ecstasy) Screen (Neg) U Benzodiazepines Scrn (Neg) Ur Cocaine Metabolite (Neg) U Marijuana (THC) Screen (Neg) Ethyl Alcohol mg/dL < 3.0 (0-3) mg/dl COVID-19 PCR (Negative) 12/31/19 12/31/19 12/31/19 Range/Units 14:08 14:44 14:44 WBC (4.8-10.8) K/uL RBC (4.2-5.4) M/uL Hgb (12.0-16.0) g/dL Hct (37-47) % MCV (80-100) fL MCH (25-34) pg MCHC (32-36) g/dL RDW Std Deviation (36.4-46.3) fL RDW Coeff of Bret (11.5-14.5) % Plt Count (130-400) K/uL MPV (7.4-10.4) fL Immature Gran % (Auto) % Neut % (Auto) % Lymph % (Auto) % [place] % (Auto) % Eos % (Auto) % Baso % (Auto) % Neut # (Auto) (1.4-6.5) K/uL Lymph # (Auto) (1.2-3.4) K/uL [place] # (Auto) (0.11-0.59) K/uL Eos # (Auto) (0-0.5) K/uL Baso # (Auto) (0-0.2) K/uL Immature Gran # (Auto) (0.00-0.02) K/uL Sodium (136-145) mmol/L Potassium (3.5-5.1) mmol/L Chloride (98-107) mmol/L Carbon Dioxide (21-32) mmol/L Anion Gap (3-11) BUN (7-18) mg/dl Creatinine (0.6-1.2) mg/dl Est Cr Clr Drug Dosing ml/min Est GFR ( Amer) Est GFR (Non-Af Amer) BUN/Creatinine Ratio (10-20) Glucose (70-99) mg/dl Lactate (0.4-2.0) mmol/L Calcium (8.5-10.1) mg/dl Iron (35-150) mcg/dl TIBC (250-450) mcg/dl Transferrin (200-360) mg/dl Ferritin (8-388) ng/ml Total Bilirubin (0.2-1) mg/dl AST (15-37) U/L ALT (12-78) U/L Alkaline Phosphatase (45-117) U/L Total Protein (6.4-8.2) gm/dl Albumin (3.4-5.0) gm/dl Globulin (2.5-4.0) gm/dl Albumin/Globulin Ratio (0.9-2) TSH (0.300-4.500) uIu/ml Free T4 (0.8-1.6) ng/dl Urine Color Dark Yellow Urine Appearance Cloudy A (Clear) Urine pH 5.0 (4.5-7.5) Ur Specific [place] 1.018 (1.000-1.030) Urine Protein Trace H (Negative) Urine Glucose (UA) Negative (Negative) Urine Ketones Trace H (Negative) Urine Blood Negative (Negative) Urine Nitrite Negative (Negative) Urine Bilirubin Negative (Negative) Urine Urobilinogen Negative (Negative) Ur Leukocyte Esterase 2+ H (Negative) Urine WBC (Auto) >30 H (0-5) /hpf Urine RBC (Auto) 0-4 (0-4) /hpf U Hyaline Cast (Auto) 10-30 H (0-5) /lpf U Epithel Cells (Auto) 0-5 (0-5) /lpf Urine Bacteria (Auto) 4+ H (Negative) Salicylates (2.8-20) mg/dl Urine Opiates Screen Neg (Neg) Ur Methadone, Qual Neg (Neg) Acetaminophen (10-30) ug/ml Urine Barbiturates Neg (Neg) Ur Phencyclidine (PCP) Neg (Neg) U Amphetamin/Meth Scrn Neg (Neg) MDMA (Ecstasy) Screen Pos H (Neg) U Benzodiazepines Scrn Neg (Neg) Ur Cocaine Metabolite Neg (Neg) U Marijuana (THC) Screen Neg (Neg) Ethyl Alcohol mg/dL (0-3) mg/dl COVID-19 PCR NEGATIVE (Negative) 12/31/19 Range/Units 15:39 WBC (4.8-10.8) K/uL RBC (4.2-5.4) M/uL Hgb (12.0-16.0) g/dL Hct (37-47) % MCV (80-100) fL MCH (25-34) pg MCHC (32-36) g/dL RDW Std Deviation (36.4-46.3) fL RDW Coeff of Bret (11.5-14.5) % Plt Count (130-400) K/uL MPV (7.4-10.4) fL Immature Gran % (Auto) % Neut % (Auto) % Lymph % (Auto) % [place] % (Auto) % Eos % (Auto) % Baso % (Auto) % Neut # (Auto) (1.4-6.5) K/uL Lymph # (Auto) (1.2-3.4) K/uL [place] # (Auto) (0.11-0.59) K/uL Eos # (Auto) (0-0.5) K/uL Baso # (Auto) (0-0.2) K/uL Immature Gran # (Auto) (0.00-0.02) K/uL Sodium (136-145) mmol/L Potassium (3.5-5.1) mmol/L Chloride (98-107) mmol/L Carbon Dioxide (21-32) mmol/L Anion Gap (3-11) BUN (7-18) mg/dl Creatinine (0.6-1.2) mg/dl Est Cr Clr Drug Dosing ml/min Est GFR ( Amer) Est GFR (Non-Af Amer) BUN/Creatinine Ratio (10-20) Glucose (70-99) mg/dl Lactate 3.0 H* (0.4-2.0) mmol/L Calcium (8.5-10.1) mg/dl Iron (35-150) mcg/dl TIBC (250-450) mcg/dl Transferrin (200-360) mg/dl Ferritin (8-388) ng/ml Total Bilirubin (0.2-1) mg/dl AST (15-37) U/L ALT (12-78) U/L Alkaline Phosphatase (45-117) U/L Total Protein (6.4-8.2) gm/dl Albumin (3.4-5.0) gm/dl Globulin (2.5-4.0) gm/dl Albumin/Globulin Ratio (0.9-2) TSH (0.300-4.500) uIu/ml Free T4 (0.8-1.6) ng/dl Urine Color Urine Appearance (Clear) Urine pH (4.5-7.5) Ur Specific [place] (1.000-1.030) Urine Protein (Negative) Urine Glucose (UA) (Negative) Urine Ketones (Negative) Urine Blood (Negative) Urine Nitrite (Negative) Urine Bilirubin (Negative) Urine Urobilinogen (Negative) Ur Leukocyte Esterase (Negative) Urine WBC (Auto) (0-5) /hpf Urine RBC (Auto) (0-4) /hpf U Hyaline Cast (Auto) (0-5) /lpf U Epithel Cells (Auto) (0-5) /lpf Urine Bacteria (Auto) (Negative) Salicylates (2.8-20) mg/dl Urine Opiates Screen (Neg) Ur Methadone, Qual (Neg) Acetaminophen (10-30) ug/ml Urine Barbiturates (Neg) Ur Phencyclidine (PCP) (Neg) U Amphetamin/Meth Scrn (Neg) MDMA (Ecstasy) Screen (Neg) U Benzodiazepines Scrn (Neg) Ur Cocaine Metabolite (Neg) U Marijuana (THC) Screen (Neg) Ethyl Alcohol mg/dL (0-3) mg/dl COVID-19 PCR (Negative) Imaging Data Radiologist's Impression: XR chest 1V portable CLINICAL HISTORY: fever COMPARISON STUDY: Chest radiograph June 06, 2019. FINDINGS: Patient is rotated. No pneumothorax or pleural effusion is noted. Lung volumes are mildly diminished. This is unchanged. There is no consolidation to suggest pneumonia and there is no evidence for pulmonary edema. Borderline cardiomegaly is unchanged. IMPRESSION: No acute cardiopulmonary findings. No change in appearance of the chest. ACT 112: Negative or not required by law. Electronically signed by: Mathew Mcguire M.D. 12/31/2019 1:54 PM Dictated: 12/31/19 1353 Transcribed: 12/31/19 1353 XR chest 1V portable CLINICAL HISTORY: fever COMPARISON STUDY: Chest radiograph June 06, 2019. FINDINGS: Patient is rotated. No pneumothorax or pleural effusion is noted. Lung volumes are mildly diminished. This is unchanged. There is no consolidation to suggest pneumonia and there is no evidence for pulmonary edema. Borderline cardiomegaly is unchanged. IMPRESSION: No acute cardiopulmonary findings. No change in appearance of the chest. ACT 112: Negative or not required by law. Electronically signed by: Mathew Mcguire M.D. 12/31/2019 1:54 PM Dictated: 12/31/19 1353 Transcribed: 12/31/19 1353 Blood Pressure Blood Pressure Findings: Normal blood pressure Blood Pressure Disposition: did not require urgent referral MDM Narrative This patient was evaluated and appeared to be in no significant distress. The patient was sitting up at the bedside with no specific complaints other than on her suicidal ideation. Patient was noted to be tachycardic with a low-grade fever. Patient's laboratory work notes an elevated WBC and lactic acid at 4. Patient was hydrated with normal saline solution. Urinalysis was obtained and is positive. Patient was treated 2 g of IV ceftriaxone after review of her previous urine cultures, positive for Klebsiella. Patient was given additional IV fluid and a repeat lactate is down to 3.0. Patient will require medical stabilization prior to psychiatric evaluation. [facility] Juan who will evaluate the patient for admission and further management. Impression & Plan UTI (urinary tract infection), Elevated lactic acid level Discharge Plan Visit Data *Final* Discharge Date/Time: 12/31/19 19:05 Chief Complaint: Mental Health Evaluation Stated Complaint: DEPRESSIONS,HEARING VOICES ED Provider: Deanna Heck Discharge Problem: UTI (urinary tract infection), Elevated lactic acid level Patient Disposition: Admitted As Inpatient Discharge Instructions Interventions: ED Discharge Assessment Last Done: 12/31/19 19:05 Discharge Problem: UTI (urinary tract infection) Qualifiers: Urinary tract infection type: acute cystitis Hematuria presence: without hematuria Qualified Code(s): N30.00 - Acute cystitis without hematuria
[2019-12-31 14:05] LABS: Albumin Level 3.5 gm/dl (3.4-5.0); BUN Creatinine Ratio 15.3 (10-20); Calcium 8.5 mg/dl (8.5-10.1); Creatinine Clr Calc Pharmacy 81.1 ml/min; Est GFR (African American) 69.6; Est GFR (Non-African American) 60.1
[2019-12-31 14:12] LABS: Acetaminophen < 2 ug/ml (10-30); Salicylate < 1.7 mg/dl (2.8-20)
[2019-12-31 14:16] LABS: Albumin Globulin Ratio 0.9 (0.9-2); Bilirubin,Total 0.4 mg/dl (0.2-1); Thyroid Stimulating Hormone 0.285 uIu/ml (0.300-4.500); Total Protein 7.5 gm/dl (6.4-8.2)
[2019-12-31] MEDS ORDERED: POTASSIUM CHLORIDE 20 MEQ TABCR PO STA (14:30)
[2019-12-31 14:31] LABS: T4 Free Thyroxine 1.33 ng/dl (0.8-1.6)
[2019-12-31] MEDS ORDERED: SODIUM CHLORIDE 0.9% 1000ML 1,000 ML IV STA (14:46)
[2019-12-31] MEDS ORDERED: cefTRIAXone SODIUM 2,000 MG in DEXTROSE 5% 50 ML IV STA (14:51)
[2019-12-31 15:06] LABS: Appearance Urine Cloudy (Clear); Bacteria Urine Automated 4+ (Negative); Bilirubin Urine Negative (Negative); Blood Urine Negative (Negative); Color Urine Dark Yellow; Epithelial Cell Urine Auto 0-5 /lpf (0-5); Glucose Urine UA Negative (Negative); Ketones Urine Trace (Negative); Leukocyte Esterase Urine 2+ (Negative); Nitrite Urine Negative (Negative); Protein Urine Trace (Negative); RBC Urine Automated 0-4 /hpf (0-4); Specific Gravity Urine 1.018 (1.000-1.030); Urobilinogen Urine Negative (Negative); WBC Urine Automated >30 /hpf (0-5)
[2019-12-31] MEDS ORDERED: cefTRIAXone SODIUM 2000MG/70ML D5W IV ONE (15:10)
[2019-12-31] MEDS ORDERED: SODIUM CHLORIDE 0.9% 1000ML 1,000 ML IV ONE (15:24)
[2019-12-31 15:47] LABS: Amphetamines+Metham, Urine Neg (Neg); Barbiturates, Urine Neg (Neg); Benzodiazepine, Urine Neg (Neg); Cocaine, Urine Neg (Neg); MDMA (Ecstacy), Urine Pos (Neg); Methadone, Urine Neg (Neg); Opiate, Urine Neg (Neg); Phencyclidine, Urine Neg (Neg)
[2019-12-31] MEDS ORDERED: IOVERSOL 100ml IV ONE (16:20)
--- NOTE | 2019-12-31 16:34 | CT Scan Report ---
CT abd pelvis IV con only CLINICAL HISTORY: Urinary tract infection. Pyelonephritis. COMPARISON STUDY: January 31, 2016 TECHNIQUE: The patient was scanned in a dynamic helical fashion during intravenous administration of 95 cc of Optiray 320. A dose lowering technique was utilized adhering to the principles of ALARA. CT DOSE: 1571.67 mGy.cm FINDINGS: Lower chest: There is respiratory motion artifact. There is no basilar parenchymal consolidation Liver: There is hepatic steatosis. No focal hepatic masses are visualized. The liver is enlarged maci uring 21 cm. Gallbladder: Unremarkable. Spleen: The spleen is enlarged measuring 15.2 cm. Pancreas: Unremarkable. Adrenal glands: Unremarkable. Kidneys: There are multiple bilateral nonobstructing renal calculi. The largest on the left measures 9 mm. The largest in the right measures 10 mm. No ureteral or bladder calculi are visualized. There i s too small to characterize subcentimeter left renal hypodensities statistically representing a cyst Bowel: There are no transition zones indicate bowel obstruction. There is no evidence of acute divert iculitis. There is no evidence of acute appendicitis. Peritoneum: There is no intraperitoneal free air or abdominal ascites. Vasculature: The abdominal aorta is normal in course and caliber. Adenopathy: None. Pelvic viscera: The uterus is surgically absent Skeletal structures: No destructive osseous lesions are seen. IMPRESSION: 1. No evidence of bowel obstruction. No evidence of free air 2. No evidence of acute appendicitis. No evidence of acute diverticulitis 3. Bilateral nephrolithiasis. No hydronephrosis. No ureteral or bladder calculi identified 4. Hepatic steatosis and hepatosplenomegaly ACT 112: Negative or not required by law. Electronically signed by: Delmer Flood M.D. 12/31/2019 4:33 PM
[2019-12-31] MEDS ORDERED: TRAZODONE HCL 100 MG TAB PO PRN (18:16)
[2019-12-31] MEDS ORDERED: clonazePAM 0.5 MG TAB PO PRN (18:16)
[2019-12-31] MEDS: cefTRIAXone SODIUM 2,000 MG in DEXTROSE 5% 50 ML IV SCH (18:46)
[2019-12-31] MEDS ORDERED: ONDANSETRON INJ 2 MG/ML 2 ML VIAL IV PRN (18:55)
[2019-12-31] MEDS ORDERED: ACETAMINOPHEN 325 MG TAB PO PRN (18:55)
[2019-12-31] MEDS ORDERED: ALUMINUM/MAGNESIUM SUSP 30 ML UDC PO PRN (18:55)
[2019-12-31] MEDS ORDERED: POLYETHYLENE (MIRALAX) 17 GM PACK PO PRN (18:55)
--- NOTE | 2019-12-31 19:31 | History & Physical Report ---
Date of Service December 31, 2019 Assessment & Plan (1) Cystitis: 49 yo F PMHx schizoaffective disorder depressive type, DM2, HTN, HLD, hypothyroidism, asthma admitted for UTI and suicidal ideation. Sepsis 2/2 UTI: - Present on arrival with tachycardia, borderline leukocytosis, elevated lactate to 4.0 -> repeat 3.0 following rehydration with NSS 3L in ED. - Patient with UA and symptoms suggestive of UTI. - UCx pending. - BCx x2 not collected; Abx have been started and patient has been afebrile. Should patient develop fever over 38.0C would draw BCx. - Received Rocephin 2g in ED; will continue. - Continue NSS at 150cc/hr. - Repeat CBC AM. Hyponatremia/Hypokalemia: - On arrival patient with hyponatremia to 130, hypokalemia to 3.0. - In ED received 3L NSS, KCl 40meq. - Hyponatremia likely due to secondary loss from infection and vomiting. Can also have element of hyponatremia due to antipsychotic medications. - Will hold desmopressin for now. - Repeat BMP AM. Suicidal ideation in patient with Hx schizoaffective disorder, depressive type: - With recent discharge 11/02 from [facility] for voluntary admission for SI due to worsening social stressors. - Today again with SI. - Continue home buspirone 20mg TID, PRN clonazepam 0.5mg BID PRN anxiety, Lexapro 20mg daily, lamotrigine 100mg daily, trazodone 100mg PO qHS PRN sleep difficulty. - Home clozapine is non-formulary; defer to Psychiatry service. Patient will attempt to have friend bring in her medication. - Care per Psychiatry team, for likely admission to behavioral health unit following medical stabilization. - COVID 19 testing negative. Macrocytic anemia: - On arrival with Hgb 11.4 and MCV 75.4. - Iron level, ferritin, transferrin, TIBC pending. - Possibly 2/2 iron deficiency. -She states that she had a colonoscopy in the past but cannot remember the results. She has never had an EGD. DM2: - History of, BSG 110s on arrival. - On metformin in outpatient. - Will hold for now, start SSI. - Can likely resume on admission to behavioral health unit. Hypothyroidism: - TSH in ED was slightly low at 0.285, with normal free T4 1.33. - Continue home levothyroxine 125mcg daily. Repeat TSH in 4 to 6 weeks when not acutely ill. Fatty liver and hepatosplenomegaly-noted on CT abdomen/pelvis Likely secondary to morbid obesity and STEIN -Needs outpatient follow-up Code Status: FULL CODE FEN/GI: DM2 diet, NSS @ 150cc/hr DVT ppx: Lovenox 40u q12h Dispo: Med/Surg for UTI treatment and electrolyte replacement, for likely discharge to behavioral health unit over the next several days (2) Suicidal ideation: (3) Type 2 diabetes mellitus: (4) Hypothyroidism: (5) Hypertension: (6) Dyslipidemia: (7) Asthma: (8) Schizoaffective disorder, depressive type: (9) Microcytic anemia: (10) Fatty liver: (11) Hepatosplenomegaly: History of Present Illness Chief Complaint: SI, urinary frequency Primary Care Provider: Niles Tam MD 49 yo F PMHx schizoaffective disorder depressive type, DM2, HTN, HLD, hypothyroidism, asthma presents to emergency room for SI, and also endorses urinary frequency and vomiting x1 day. Reports that she has "heard her grandfather's voice telling her to hurt herself" since she was in 4th grade. For the last week has had worsening in her depressive symptoms and in the negative voices, such that today she had a plan to commit suicide by overdosing on her home medications. She endorses no active voices during my interview. She also reports that for about a day she has had increased urinary frequency and urgency as well as one episode of emesis, but denies dysuria, hematuria, fevers or chills, flank or abdominal pains. Also denies SOB, CP, dizziness or headaches, constipation or diarrhea. She has a history of frequent UTI with urine culture growth typically of pansensitive (save for nitrofurantoin) Klebsiella. Patient denies smoking, alcohol use, or illicit drug use. ED course: Patient was found to be tachycardic to low 100s, labwork with leukocytosis and L shift, hyponatremia, hypokalemia, elevated lactate, microcytic anemia. UA with bacteria, LE, nitrites, >30 WBCs. UDS positive for MDMA. COVID 19 negative. CTAP showed bilateral nephrolithiasis without hydronephrosis, no signs of pyelonephritis on imaging. Allergies Allergy/AdvReac Type Severity Reaction Status Date / Time prednisone Allergy Severe hallucinati Verified 06/06/19 10:01 ons chlorpromazine Allergy Mild LIGHTHEADED Verified 06/06/19 10:01 SHUFFLING GAIT aspirin Allergy Unknown Unknown Verified 06/06/19 10:01 doxycycline Allergy Unknown HEARING Verified 06/06/19 10:01 VOICES, depression levofloxacin Allergy Unknown ?ALLERGIC Verified 06/06/19 10:01 TO LEVAQUIN? NSAIDS (Non-Steroidal Allergy Unknown . Verified 06/06/19 10:01 Anti-Inflamma Penicillins Allergy Unknown RASH, Verified 06/06/19 10:01 nausea and vomitting quinine Allergy Unknown Unknown Verified 06/06/19 10:01 theophylline [From [facility]] AdvReac Verified 06/06/19 10:01 Home Medications Home Medications Medication Instructions Recorded Confirmed Type escitalopram oxalate [Lexapro] 20 mg PO QAM 02/25/18 12/31/19 History clonazepam 0.5 mg tablet 0.5 mg PO BID PRN tab 01/11/19 12/31/19 History buspirone 10 mg tablet 20 mg PO TID tab 01/22/19 12/31/19 History ergocalciferol (vitamin D2) 1,250 50,000 unit PO MONTHLY #12 cap 02/03/19 12/31/19 Rx mcg (50,000 unit) capsule metformin 500 mg tablet 1,000 mg PO BID #360 tab 02/08/19 12/31/19 Rx clozapine 200 mg disintegrating 200 mg PO HS tab 02/15/19 12/31/19 History tablet losartan [Cozaar] 50 mg PO QAM 06/06/19 12/31/19 History montelukast 10 mg PO HS 06/06/19 12/31/19 History estradiol 1 mg tablet 1 mg PO DAILY #30 tab 07/20/19 12/31/19 Rx cholecalciferol (vitamin D3) 25 1,000 units PO QAM #90 cap 08/23/19 12/31/19 Rx mcg (1,000 unit) capsule clozapine 50 mg PO DIRECTED 10/28/19 12/31/19 History desmopressin 0.2 mg PO HS 10/28/19 12/31/19 History trazodone 100 mg PO HS PRN 10/28/19 12/31/19 History lamotrigine 100 mg PO QAM #30 tab 11/03/19 12/31/19 Rx atorvastatin 20 mg tablet 20 mg PO HS #30 tab 11/18/19 12/31/19 Rx levothyroxine 125 mcg tablet 125 mcg PO QAM #90 tab 12/29/19 12/31/19 Rx lurasidone [Latuda] 80 mg PO DAILY 12/31/19 12/31/19 History Past Med/Surg History Medical History (Updated 12/31/19 @ 23:35 by Yary Juan MD) Asthma (Chronic) Bacterial pneumonia (Resolved 01/11/11) Dyslipidemia (Chronic) Fatty liver Hepatosplenomegaly Hypertension (Chronic) Hypothyroidism (Chronic) Hypoxemia (Resolved) IBS (irritable bowel syndrome) Influenza (Inactive 2019) Schizoaffective disorder, depressive type (Chronic 01/11/11) Type 2 diabetes mellitus (Chronic) Surgical History H/O wisdom tooth extraction H/O: hysterectomy History of thyroid surgery Family History Mother Breast cancer Hypertension Stroke Unknown Hypertension Father Hypertension Heart disease Cancer Grandfather Heart disease Stroke Brother Myocardial infarction Grandmother (Maternal) Colon cancer Grandmother Stroke Denies family history of Ovarian cancer Prostate cancer Social History Smoking Status: Former smoker Second Hand Exposure: No; Hx Alcohol Use: No Hx Substance Use: No Preferred Language: Panamanian Communication Ability: Effective Visual Impairment: No Limitations Hearing Ability: Normal 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 Beliefs That Will Affect Care: None marital status: Single Current Living Situation: Alone current occupational status: employed How many Children do You have: 0 Feels Safe at Home: Yes Safety Concerns: Feels Safe At This Time Seatbelt Use: always Review of Systems Review of Systems: All systems reviewed & are unremarkable except as noted in HPI & below Physical Exam Constitutional: well developed and + obese Eyes: PERRL, conjunctivae normal, anicteric sclerae ENMT: external ear and nose normal, oropharynx normal Neck: normal visual inspection Respiratory: normal respiratory effort; no cough Auscultation: no crackles and no wheezes decreased breath sounds throughout Cardiovascular: RRR, no murmur, no edema Gastrointestinal (Abdomen): normal bowel sounds, soft, nontender, no hepatosplenomegaly no suprapubic or CVA tenderness Musculoskeletal: no cyanosis or clubbing, extremities motor strength 5/5 Skin: no rashes, warm and dry Neurologic: moves all extremities; no focal motor deficits Speech / Cognition: normal speech Motor/Sensory: no tremor Psychiatric: A+Ox3, euthymic affect Results & Data Results & Data ([facility]) Vital Signs (Past 12 Hours) Vital Signs Temp Pulse Pulse Resp BP BP Pulse Ox 12/31/19 16:43 37.2 C 89 22 154/101 H 96 12/31/19 15:21 83 20 152/101 H 97 12/31/19 12:36 37.8 C H 106 H 22 123/74 95 Laboratory Results 12/31/19 12/31/19 12/31/19 Range/Units 20:24 15:39 14:44 WBC (4.8-10.8) K/uL RBC (4.2-5.4) M/uL Hgb (12.0-16.0) g/dL Hct (37-47) % MCV (80-100) fL MCH (25-34) pg MCHC (32-36) g/dL RDW Std Deviation (36.4-46.3) fL RDW Coeff of Bret (11.5-14.5) % Plt Count (130-400) K/uL MPV (7.4-10.4) fL Immature Gran % (Auto) % Neut % (Auto) % Lymph % (Auto) % Crawford % (Auto) % Eos % (Auto) % Baso % (Auto) % Neut # (Auto) (1.4-6.5) K/uL Lymph # (Auto) (1.2-3.4) K/uL [place] # (Auto) (0.11-0.59) K/uL Eos # (Auto) (0-0.5) K/uL Baso # (Auto) (0-0.2) K/uL Immature Gran # (Auto) (0.00-0.02) K/uL Sodium (136-145) mmol/L Potassium (3.5-5.1) mmol/L Chloride (98-107) mmol/L Carbon Dioxide (21-32) mmol/L Anion Gap (3-11) BUN (7-18) mg/dl Creatinine (0.6-1.2) mg/dl Est Cr Clr Drug Dosing ml/min Est GFR ( Amer) Est GFR (Non-Af Amer) BUN/Creatinine Ratio (10-20) Glucose (70-99) mg/dl POC Glucose 113 H (70-99) mg/dl Lactate 3.0 H* (0.4-2.0) mmol/L Calcium (8.5-10.1) mg/dl Iron (35-150) mcg/dl TIBC (250-450) mcg/dl Transferrin (200-360) mg/dl Ferritin (8-388) ng/ml Total Bilirubin (0.2-1) mg/dl AST (15-37) U/L ALT (12-78) U/L Alkaline Phosphatase (45-117) U/L Total Protein (6.4-8.2) gm/dl Albumin (3.4-5.0) gm/dl Globulin (2.5-4.0) gm/dl Albumin/Globulin Ratio (0.9-2) TSH (0.300-4.500) uIu/ml Free T4 (0.8-1.6) ng/dl Urine Color Urine Appearance (Clear) Urine pH (4.5-7.5) Ur Specific [place] (1.000-1.030) Urine Protein (Negative) Urine Glucose (UA) (Negative) Urine Ketones (Negative) Urine Blood (Negative) Urine Nitrite (Negative) Urine Bilirubin (Negative) Urine Urobilinogen (Negative) Ur Leukocyte Esterase (Negative) Urine WBC (Auto) (0-5) /hpf Urine RBC (Auto) (0-4) /hpf U Hyaline Cast (Auto) (0-5) /lpf U Epithel Cells (Auto) (0-5) /lpf Urine Bacteria (Auto) (Negative) Salicylates (2.8-20) mg/dl Urine Opiates Screen (Neg) Ur Methadone, Qual (Neg) Acetaminophen (10-30) ug/ml Urine Barbiturates (Neg) Ur Phencyclidine (PCP) (Neg) U Amphetamin/Meth Scrn (Neg) Urine MDEA Pending MDMA (Ecstasy) Screen (Neg) MDMA Pending Urine MDMA Pending U Benzodiazepines Scrn (Neg) Ur Cocaine Metabolite (Neg) U Marijuana (THC) Screen (Neg) Ethyl Alcohol mg/dL (0-3) mg/dl COVID-19 PCR (Negative) 12/31/19 12/31/19 12/31/19 Range/Units 14:44 14:44 14:08 WBC (4.8-10.8) K/uL RBC (4.2-5.4) M/uL Hgb (12.0-16.0) g/dL Hct (37-47) % MCV (80-100) fL MCH (25-34) pg MCHC (32-36) g/dL RDW Std Deviation (36.4-46.3) fL RDW Coeff of Bret (11.5-14.5) % Plt Count (130-400) K/uL MPV (7.4-10.4) fL Immature Gran % (Auto) % Neut % (Auto) % Lymph % (Auto) % [place] % (Auto) % Eos % (Auto) % Baso % (Auto) % Neut # (Auto) (1.4-6.5) K/uL Lymph # (Auto) (1.2-3.4) K/uL [place] # (Auto) (0.11-0.59) K/uL Eos # (Auto) (0-0.5) K/uL Baso # (Auto) (0-0.2) K/uL Immature Gran # (Auto) (0.00-0.02) K/uL Sodium (136-145) mmol/L Potassium (3.5-5.1) mmol/L Chloride (98-107) mmol/L Carbon Dioxide (21-32) mmol/L Anion Gap (3-11) BUN (7-18) mg/dl Creatinine (0.6-1.2) mg/dl Est Cr Clr Drug Dosing ml/min Est GFR ( Amer) Est GFR (Non-Af Amer) BUN/Creatinine Ratio (10-20) Glucose (70-99) mg/dl POC Glucose (70-99) mg/dl Lactate (0.4-2.0) mmol/L Calcium (8.5-10.1) mg/dl Iron (35-150) mcg/dl TIBC (250-450) mcg/dl Transferrin (200-360) mg/dl Ferritin (8-388) ng/ml Total Bilirubin (0.2-1) mg/dl AST (15-37) U/L ALT (12-78) U/L Alkaline Phosphatase (45-117) U/L Total Protein (6.4-8.2) gm/dl Albumin (3.4-5.0) gm/dl Globulin (2.5-4.0) gm/dl Albumin/Globulin Ratio (0.9-2) TSH (0.300-4.500) uIu/ml Free T4 (0.8-1.6) ng/dl Urine Color Dark Yellow Urine Appearance Cloudy A (Clear) Urine pH 5.0 (4.5-7.5) Ur Specific [place] 1.018 (1.000-1.030) Urine Protein Trace H (Negative) Urine Glucose (UA) Negative (Negative) Urine Ketones Trace H (Negative) Urine Blood Negative (Negative) Urine Nitrite Negative (Negative) Urine Bilirubin Negative (Negative) Urine Urobilinogen Negative (Negative) Ur Leukocyte Esterase 2+ H (Negative) Urine WBC (Auto) >30 H (0-5) /hpf Urine RBC (Auto) 0-4 (0-4) /hpf U Hyaline Cast (Auto) 10-30 H (0-5) /lpf U Epithel Cells (Auto) 0-5 (0-5) /lpf Urine Bacteria (Auto) 4+ H (Negative) Salicylates (2.8-20) mg/dl Urine Opiates Screen Neg (Neg) Ur Methadone, Qual Neg (Neg) Acetaminophen (10-30) ug/ml Urine Barbiturates Neg (Neg) Ur Phencyclidine (PCP) Neg (Neg) U Amphetamin/Meth Scrn Neg (Neg) Urine MDEA MDMA (Ecstasy) Screen Pos H (Neg) MDMA Urine MDMA U Benzodiazepines Scrn Neg (Neg) Ur Cocaine Metabolite Neg (Neg) U Marijuana (THC) Screen Neg (Neg) Ethyl Alcohol mg/dL (0-3) mg/dl COVID-19 PCR NEGATIVE (Negative) 12/31/19 12/31/19 12/31/19 Range/Units 13:34 13:34 13:34 WBC (4.8-10.8) K/uL RBC (4.2-5.4) M/uL Hgb (12.0-16.0) g/dL Hct (37-47) % MCV (80-100) fL MCH (25-34) pg MCHC (32-36) g/dL RDW Std Deviation (36.4-46.3) fL RDW Coeff of Bret (11.5-14.5) % Plt Count (130-400) K/uL MPV (7.4-10.4) fL Immature Gran % (Auto) % Neut % (Auto) % Lymph % (Auto) % [place] % (Auto) % Eos % (Auto) % Baso % (Auto) % Neut # (Auto) (1.4-6.5) K/uL Lymph # (Auto) (1.2-3.4) K/uL [place] # (Auto) (0.11-0.59) K/uL Eos # (Auto) (0-0.5) K/uL Baso # (Auto) (0-0.2) K/uL Immature Gran # (Auto) (0.00-0.02) K/uL Sodium (136-145) mmol/L Potassium (3.5-5.1) mmol/L Chloride (98-107) mmol/L Carbon Dioxide (21-32) mmol/L Anion Gap (3-11) BUN (7-18) mg/dl Creatinine (0.6-1.2) mg/dl Est Cr Clr Drug Dosing ml/min Est GFR ( Amer) Est GFR (Non-Af Amer) BUN/Creatinine Ratio (10-20) Glucose (70-99) mg/dl POC Glucose (70-99) mg/dl Lactate 4.0 H* (0.4-2.0) mmol/L Calcium (8.5-10.1) mg/dl Iron 23 L (35-150) mcg/dl TIBC 352 (250-450) mcg/dl Transferrin 238 (200-360) mg/dl Ferritin 73.4 (8-388) ng/ml Total Bilirubin (0.2-1) mg/dl AST (15-37) U/L ALT (12-78) U/L Alkaline Phosphatase (45-117) U/L Total Protein (6.4-8.2) gm/dl Albumin (3.4-5.0) gm/dl Globulin (2.5-4.0) gm/dl Albumin/Globulin Ratio (0.9-2) TSH (0.300-4.500) uIu/ml Free T4 (0.8-1.6) ng/dl Urine Color Urine Appearance (Clear) Urine pH (4.5-7.5) Ur Specific [place] (1.000-1.030) Urine Protein (Negative) Urine Glucose (UA) (Negative) Urine Ketones (Negative) Urine Blood (Negative) Urine Nitrite (Negative) Urine Bilirubin (Negative) Urine Urobilinogen (Negative) Ur Leukocyte Esterase (Negative) Urine WBC (Auto) (0-5) /hpf Urine RBC (Auto) (0-4) /hpf U Hyaline Cast (Auto) (0-5) /lpf U Epithel Cells (Auto) (0-5) /lpf Urine Bacteria (Auto) (Negative) Salicylates (2.8-20) mg/dl Urine Opiates Screen (Neg) Ur Methadone, Qual (Neg) Acetaminophen (10-30) ug/ml Urine Barbiturates (Neg) Ur Phencyclidine (PCP) (Neg) U Amphetamin/Meth Scrn (Neg) Urine MDEA MDMA (Ecstasy) Screen (Neg) MDMA Urine MDMA U Benzodiazepines Scrn (Neg) Ur Cocaine Metabolite (Neg) U Marijuana (THC) Screen (Neg) Ethyl Alcohol mg/dL < 3.0 (0-3) mg/dl COVID-19 PCR (Negative) 12/31/19 12/31/19 12/31/19 Range/Units 13:34 13:34 13:34 WBC 11.26 H (4.8-10.8) K/uL RBC 4.48 (4.2-5.4) M/uL Hgb 11.4 L (12.0-16.0) g/dL Hct 33.8 L (37-47) % MCV 75.4 L (80-100) fL MCH 25.4 (25-34) pg MCHC 33.7 (32-36) g/dL RDW Std Deviation 41.6 (36.4-46.3) fL RDW Coeff of Bret 14.9 H (11.5-14.5) % Plt Count 281 (130-400) K/uL MPV 9.2 (7.4-10.4) fL Immature Gran % (Auto) 0.4 % Neut % (Auto) 72.4 % Lymph % (Auto) 19.3 % [place] % (Auto) 7.9 % Eos % (Auto) 0.0 % Baso % (Auto) 0.0 % Neut # (Auto) 8.16 H (1.4-6.5) K/uL Lymph # (Auto) 2.17 (1.2-3.4) K/uL [place] # (Auto) 0.89 H (0.11-0.59) K/uL Eos # (Auto) 0.00 (0-0.5) K/uL Baso # (Auto) 0.00 (0-0.2) K/uL Immature Gran # (Auto) 0.04 H (0.00-0.02) K/uL Sodium 130 L (136-145) mmol/L Potassium 3.0 L (3.5-5.1) mmol/L Chloride 97 L (98-107) mmol/L Carbon Dioxide 21 (21-32) mmol/L Anion Gap 12.0 H (3-11) BUN 16 (7-18) mg/dl Creatinine 1.07 (0.6-1.2) mg/dl Est Cr Clr Drug Dosing 81.1 ml/min Est GFR ( Amer) 69.6 Est GFR (Non-Af Amer) 60.1 BUN/Creatinine Ratio 15.3 (10-20) Glucose 111 H (70-99) mg/dl POC Glucose (70-99) mg/dl Lactate (0.4-2.0) mmol/L Calcium 8.5 (8.5-10.1) mg/dl Iron (35-150) mcg/dl TIBC (250-450) mcg/dl Transferrin (200-360) mg/dl Ferritin (8-388) ng/ml Total Bilirubin 0.4 (0.2-1) mg/dl AST 11 L (15-37) U/L ALT 21 (12-78) U/L Alkaline Phosphatase 101 (45-117) U/L Total Protein 7.5 (6.4-8.2) gm/dl Albumin 3.5 (3.4-5.0) gm/dl Globulin 4.0 (2.5-4.0) gm/dl Albumin/Globulin Ratio 0.9 (0.9-2) TSH 0.285 L (0.300-4.500) uIu/ml Free T4 1.33 (0.8-1.6) ng/dl Urine Color Urine Appearance (Clear) Urine pH (4.5-7.5) Ur Specific [place] (1.000-1.030) Urine Protein (Negative) Urine Glucose (UA) (Negative) Urine Ketones (Negative) Urine Blood (Negative) Urine Nitrite (Negative) Urine Bilirubin (Negative) Urine Urobilinogen (Negative) Ur Leukocyte Esterase (Negative) Urine WBC (Auto) (0-5) /hpf Urine RBC (Auto) (0-4) /hpf U Hyaline Cast (Auto) (0-5) /lpf U Epithel Cells (Auto) (0-5) /lpf Urine Bacteria (Auto) (Negative) Salicylates < 1.7 L (2.8-20) mg/dl Urine Opiates Screen (Neg) Ur Methadone, Qual (Neg) Acetaminophen < 2 L (10-30) ug/ml Urine Barbiturates (Neg) Ur Phencyclidine (PCP) (Neg) U Amphetamin/Meth Scrn (Neg) Urine MDEA MDMA (Ecstasy) Screen (Neg) MDMA Urine MDMA U Benzodiazepines Scrn (Neg) Ur Cocaine Metabolite (Neg) U Marijuana (THC) Screen (Neg) Ethyl Alcohol mg/dL (0-3) mg/dl COVID-19 PCR (Negative) Diagnostic Findings CT abd pelvis IV con only CLINICAL HISTORY: Urinary tract infection. Pyelonephritis. COMPARISON STUDY: January 31, 2016 TECHNIQUE: The patient was scanned in a dynamic helical fashion during intravenous administration of 95 cc of Optiray 320. A dose lowering technique was utilized adhering to the principles of ALARA. CT DOSE: 1571.67 mGy.cm FINDINGS: Lower chest: There is respiratory motion artifact. There is no basilar parenchymal consolidation Liver: There is hepatic steatosis. No focal hepatic masses are visualized. The liver is enlarged measuring 21 cm. Gallbladder: Unremarkable. Spleen: The spleen is enlarged measuring 15.2 cm. Pancreas: Unremarkable. Adrenal glands: Unremarkable. Kidneys: There are multiple bilateral nonobstructing renal calculi. The largest on the left measures 9 mm. The largest in the right measures 10 mm. No ureteral or bladder calculi are visualized. There is too small to characterize subcentimeter left renal hypodensities statistically representing a cyst Bowel: There are no transition zones indicate bowel obstruction. There is no evidence of acute diverticulitis. There is no evidence of acute appendicitis. Peritoneum: There is no intraperitoneal free air or abdominal ascites. Vasculature: The abdominal aorta is normal in course and caliber. Adenopathy: None. Pelvic viscera: The uterus is surgically absent Skeletal structures: No destructive osseous lesions are seen. IMPRESSION: 1. No evidence of bowel obstruction. No evidence of free air 2. No evidence of acute appendicitis. No evidence of acute diverticulitis 3. Bilateral nephrolithiasis. No hydronephrosis. No ureteral or bladder calculi identified 4. Hepatic steatosis and hepatosplenomegaly XR chest 1V portable CLINICAL HISTORY: fever COMPARISON STUDY: Chest radiograph June 06, 2019. FINDINGS: Patient is rotated. No pneumothorax or pleural effusion is noted. Lung volumes are mildly diminished. This is unchanged. There is no consolidation to suggest pneumonia and there is no evidence for pulmonary edema. Borderline cardiomegaly is unchanged. IMPRESSION: No acute cardiopulmonary findings. No change in appearance of the chest. Code Status & VTE Plan VTE Prophylaxis Plan VTE Prophylaxis will be ordered: Yes Supervising Physician Co-Signing Physician Notes I personally examined the patient and verified all villarreal points of history and exam, discussed case, and agree with decision making with Dr. Cage with the following additions/exceptions: This patient is a 49-year-old female with history noted as above, here with increased suicidal ideations. Also with an episode of nausea and vomiting yesterday and increased urinary frequency, found to have low-grade fever, tachycardia, tachypnea, elevated lactate, and UTI. No evidence of pyelonephritis on imaging of the abdomen and pelvis. History and ROS reviewed as above Vitals reviewed Gen: Morbidly obese, alert awake and oriented x3 NAD, flat affect HEENT: Anicteric sclerae, EOMI CV: RRR no mgr nl S1S2 Pulm: CTAB no wcr Abd: +BS soft NT ND, morbidly obese, no masses or hernias Ext: No edema Skin: No rashes, warm/dry Neuro: Full strength throughout Laboratory values reviewed Imaging reviewed 49-year-old female here with suicidal ideations and worsening depressive symptoms, with UTI, sepsis, hyponatremia, hypokalemia. -IV antibiotics and IV fluids Follow urine culture Replace electrolytes -Follow laboratory values in the morning Added albuterol as needed for wheezing for her asthma -We will reduce fluids to 100 mL's per hour to avoid volume overload as she is already received over 3 L in the ER Appreciate psychiatric consultation Expect discharge to inpatient mental health unit once medically cleared- hopefully tomorrow Resident Activity Tracking Resident Involvement: Resident Care Provided Care Provided: Adult Hospital Medicine (1) Type 2 diabetes mellitus Diabetes mellitus complication status: without complication 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
[2019-12-31] MEDS: SODIUM CHLORIDE 0.9% 1000ML 1,000 ML IV SCH (19:56)
[2019-12-31] MEDS ORDERED: DEXTROSE 50% 50 ML SYRINGE IV PRN (20:19)
[2019-12-31] MEDS ORDERED: GLUCOSE 40% GEL 15 GM TUBE PO PRN (20:19)
[2019-12-31] MEDS ORDERED: CARBOHYDRATES FOR HYPOGLYCEMIA PO PRN (20:19)
[2019-12-31] MEDS ORDERED: GLUCAGON FOR INJ 1 MG VIAL SQ PRN (20:19)
[2019-12-31] MEDS ORDERED: ALBUTEROL 0.083% NEBU SOLN 3 ML VIAL NEB PRN (20:28)
[2019-12-31] MEDS ORDERED: ALBUTEROL 0.083% NEBU SOLN 3 ML VIAL NEB STA (20:38)
[2019-12-31 20:42] LABS: Ferritin 73.4 ng/ml (8-388)
[2019-12-31] MEDS: ATORVASTATIN 20 MG TAB PO SCH (21:55)
[2019-12-31] MEDS: ENOXAPARIN INJ 40 MG/0.4 ML SYR SQ SCH ×2 (21:56→22:05)
[2019-12-31] MEDS: INSULIN ASPART 100 UNITS/ML 3 ML PEN SC SCH (22:13)
[2019-12-31] MEDS: MONTELUKAST SODIUM 10 MG TABLET PO SCH (22:51)
--- NOTE | 2019-12-31 23:38 | Billing Data ---
Date of Service December 31, 2019 Coding Level of Care Code 60874 Initial Inpt Care Lvl 3
[2020-01-01] MEDS: SODIUM CHLORIDE 0.9% 1000ML 1,000 ML IV SCH (00:25)
[2020-01-01] MEDS: ENOXAPARIN INJ 40 MG/0.4 ML SYR SQ SCH ×3 (00:37→22:25)
[2020-01-01 06:36] LABS: Hematocrit (blood only) 31.9 % (37-47); Hemoglobin 10.3 g/dL (12.0-16.0); Immature Granulocytes # (auto) 0.03 K/uL (0.00-0.02); Immature Granulocytes % (auto) 0.4 %; Lymphocytes # (auto) 1.81 K/uL (1.2-3.4); Lymphocytes % (auto) 21.8 %; Mean Corpuscular Hemoglobin 25.3 pg (25-34); Mean Corpuscular Hgb Conc 32.3 g/dL (32-36); Mean Corpuscular Volume 78.4 fL (80-100); Mean Platelet Volume 9.1 fL (7.4-10.4); Monocytes # (auto) 0.74 K/uL (0.11-0.59); Monocytes % (auto) 8.9 %; Neutrophils # (auto) 5.72 K/uL (1.4-6.5); Neutrophils % (auto) 68.9 %; Platelet Count 254 K/uL (130-400); RDW Coefficient of Variation 15.3 % (11.5-14.5); RDW Standard Deviation 43.6 fL (36.4-46.3); Red Blood Count 4.07 M/uL (4.2-5.4)
[2020-01-01 07:18] LABS: BUN Creatinine Ratio 17.2 (10-20); Calcium 8.1 mg/dl (8.5-10.1); Creatinine Clr Calc Pharmacy 121.9 ml/min; Est GFR (African American) 114.3; Est GFR (Non-African American) 98.6; Potassium 3.3 mmol/L (3.5-5.1)
[2020-01-01] MEDS ORDERED: POTASSIUM CHLORIDE 20 MEQ TABCR PO STA (08:06)
[2020-01-01] MEDS: POTASSIUM CHLORIDE 20 MEQ in SODIUM CHLORIDE 0.9% 1000ML 1,000 ML IV SCH ×2 (08:39→18:29)
[2020-01-01] MEDS: ERGOCALCIFEROL 50,000 UNITS CAP PO SCH (08:47)
[2020-01-01] MEDS: estradioL 1 MG TAB PO SCH (08:48)
[2020-01-01] MEDS: ESCITALOPRAM OXALATE 20 MG TAB PO SCH (08:48)
[2020-01-01] MEDS: CHOLECALCIFEROL 1,000 UNITS 25 MCG TAB PO SCH (08:49)
[2020-01-01] MEDS: LOSARTAN POTASSIUM 50 MG TAB PO SCH (08:50)
[2020-01-01] MEDS: LEVOTHYROXINE SODIUM 125 MCG TABLET PO SCH (08:51)
[2020-01-01] MEDS ORDERED: LURASIDONE HCL 40 MG TAB PO SCH (09:00)
[2020-01-01] MEDS ORDERED: lamoTRIgine 100 MG TAB PO SCH (09:00)
[2020-01-01] MEDS: INSULIN ASPART 100 UNITS/ML 3 ML PEN SC SCH ×4 (09:08→22:33)
[2020-01-01] MEDS: MAGNESIUM SULFATE / D5W 1 GM/100 ML BAG IV SCH ×3 (10:38→14:48)
--- NOTE | 2020-01-01 12:41 | Psychiatric Consultation ---
Date of Consultation January 01, 2020 Impression / Recommendations Impression 49 yo female with recurrent depression and ongoing psychotic symptoms (hardik nguyen) that often become persecutory delusions given longstanding history of schizoaffective disorder. Currently suicidal with plan and failing outpatient care. PLAN: inpatient psychiatric hospitalization on when medically cleared. In meantime, shifted timing of Latuda to approximate home schedule and resumed Clozaril orders. Inventory Assets Strengths: intelligent, family and community supports Needs: safety, inpatient hospitalization Risk Factors Assessment Do You Have Access To A Gun?: No Protective Factors Assessment Employed: No Psych History Identifying Data 49 yo female well known to psychiatry service for multiple admissions for SI and command hardik nguyen, last admitted in October. Referred to ED by outpatient psychiatrist and found to have UTI and admitted for IVF/antibiotics/sepsis work up. Chief Complaint "It's been really rough, I'm not myself and can't live like this". History of Present Illness Leisa reports a general decline in funcitioning due to isolation of COVID-19 and symptoms "didn't change that much" following October hospitalization. Her nguyen of grandfather's voice telling her to self-harm is lifelong but she has been having her own thoughts of overdosing on her medication (similar presentation as November 2019). She endorses multiple vegetative symptoms with anergia and anhedonia in addition to physical symptoms related to her infection. She maintains a good knowledge of her psychiatric medications and is aware that Clozaril was held last night on med floor until preparation could be verified. She also confirms that she generally takes Latuda with evening meal for absorption. Her intent in coming to the ED was to sign in to the mental health unit and she remains willing to do so. She remains suicidal and medical floor is providing a 1-on-1. Past Psychiatric History Current Psychiatric Diagnosis: Schizoaffective disorder, depressive type Outpatient Services: [facility] (Dr. Urbina and Lamar Miller) with a variety of other community service supports. Previous Psych Admissions: multiple--most recent at [facility] 09/18, 11/18, 03/20, 11/19 Do You Have Access To A Gun?: No History of Previous Suicide Attempt: Yes Describe Attempts in the Past: Overdose on pills 1987 Past Medication Trials: Thiothixene Asenapine Aripiprazole Lurasidone Clozapine Ziprasidone Sertraline Escitalopram Venlafaxine XR Mirtazapine Imipramine Topiramate [place] Depakote Lamotrigine Desmopressin Trazodone Clonazepam Alprazolam Lorazepam Trihexyphenidyl Allergies Allergy/AdvReac Type Severity Reaction Status Date / Time prednisone Allergy Severe hallucinati Verified 06/06/19 10:01 ons chlorpromazine Allergy Mild LIGHTHEADED Verified 06/06/19 10:01 SHUFFLING GAIT aspirin Allergy Unknown Unknown Verified 06/06/19 10:01 doxycycline Allergy Unknown HEARING Verified 06/06/19 10:01 VOICES, depression levofloxacin Allergy Unknown ?ALLERGIC Verified 06/06/19 10:01 TO LEVAQUIN? NSAIDS (Non-Steroidal Allergy Unknown . Verified 06/06/19 10:01 Anti-Inflamma Penicillins Allergy Unknown RASH, Verified 06/06/19 10:01 nausea and vomitting quinine Allergy Unknown Unknown Verified 06/06/19 10:01 theophylline [From Matias-Dur] AdvReac Verified 06/06/19 10:01 Home Medications Home Medications Medication Instructions Recorded Confirmed Type escitalopram oxalate [Lexapro] 20 mg PO QAM 02/25/18 12/31/19 History clonazepam 0.5 mg tablet 0.5 mg PO BID PRN tab 01/11/19 12/31/19 History buspirone 10 mg tablet 20 mg PO TID tab 01/22/19 12/31/19 History ergocalciferol (vitamin D2) 1,250 50,000 unit PO MONTHLY #12 cap 02/03/19 12/31/19 Rx mcg (50,000 unit) capsule metformin 500 mg tablet 1,000 mg PO BID #360 tab 02/08/19 12/31/19 Rx clozapine 200 mg disintegrating 200 mg PO HS tab 02/15/19 12/31/19 History tablet losartan [Cozaar] 50 mg PO QAM 06/06/19 12/31/19 History montelukast 10 mg PO HS 06/06/19 12/31/19 History estradiol 1 mg tablet 1 mg PO DAILY #30 tab 07/20/19 12/31/19 Rx cholecalciferol (vitamin D3) 25 1,000 units PO QAM #90 cap 08/23/19 12/31/19 Rx mcg (1,000 unit) capsule clozapine 50 mg PO DIRECTED 10/28/19 12/31/19 History desmopressin 0.2 mg PO HS 10/28/19 12/31/19 History trazodone 100 mg PO HS PRN 10/28/19 12/31/19 History lamotrigine 100 mg PO QAM #30 tab 11/03/19 12/31/19 Rx atorvastatin 20 mg tablet 20 mg PO HS #30 tab 11/18/19 12/31/19 Rx levothyroxine 125 mcg tablet 125 mcg PO QAM #90 tab 12/29/19 12/31/19 Rx lurasidone [Latuda] 80 mg PO DAILY 12/31/19 12/31/19 History Family History on file Substance Abuse History denied Personal History Living Arrangements: Apartment Born In: Grew up locally. Father taught psychology at [employer], mother taught K Highest Grade Completed: High School Graduate Number Of Children: none Beliefs That Will Affect Care: None History of Legal Problems: denied Psychological Trauma History Comment: loss Patient History Medical History Asthma (Chronic) Bacterial pneumonia (Resolved 01/11/11) Dyslipidemia (Chronic) Fatty liver Hepatosplenomegaly Hypertension (Chronic) Hypothyroidism (Chronic) Hypoxemia (Resolved) IBS (irritable bowel syndrome) Influenza (Inactive 2019) Schizoaffective disorder, depressive type (Chronic 01/11/11) Type 2 diabetes mellitus (Chronic) Surgical History H/O wisdom tooth extraction H/O: hysterectomy History of thyroid surgery Family History Mother Breast cancer Hypertension Stroke Unknown Hypertension Father Hypertension Heart disease Cancer Grandfather Heart disease Stroke Brother Myocardial infarction Grandmother (Maternal) Colon cancer Grandmother Stroke Denies family history of Ovarian cancer Prostate cancer Social History Smoking Status: Former smoker Second Hand Exposure: No; Hx Alcohol Use: No Hx Substance Use: No Preferred Language: Uzbek Communication Ability: Effective Visual Impairment: No Limitations Hearing Ability: Normal Canal Driver Required: No Beliefs That Will Affect Care: None marital status: Single Current Living Situation: Alone current occupational status: employed How many Children do You have: 0 Feels Safe at Home: Yes Safety Concerns: Feels Safe At This Time Seatbelt Use: always Physical Exam Psychiatric: Orientation: alert Apperance: appropriately groomed Eye Contact: + fair eye contact Motor Behavior: no abnormal motor movements non-spontaneous Affect: + depressed affect Mood: + depressed mood Thought Process: linear/logical thought process Thought Content: reality based without delusions suicidal thoughts with plan to OD on meds. afraid she may act on these thoughts Homicidal Thoughts: denies homicidal thoughts Hallucinations: + auditory hallucinations Cognition: remote memory grossly intact; + attention not intact Estimated Intelligence: consistent with education level Insight: + fair insight Judgement: + fair judgement Vital Signs (Past 24 Hours): Last Vital Signs Temp 36.5 C 01/01/20 07:52 Pulse 82 01/01/20 07:52 Resp 18 01/01/20 07:52 BP 104/71 01/01/20 07:52 Pulse Ox 94 01/01/20 07:52 Review of Systems All systems reviewed & are unremarkable except as noted in HPI & below Results & Data (PSY) Medications Administered Atorvastatin Calcium (Lipitor) 20 mg PO HS JOSE Stop: 01/30/20 20:59 Last Admin: 12/31/19 21:55 Dose: 20 mg Documented by: [id number] Buspirone HCl (Buspar) 20 mg PO TID JOSE Stop: 01/30/20 20:59 Last Admin: 01/01/20 08:49 Dose: 20 mg Documented by: [id number] Admin: 12/31/19 21:55 Dose: 20 mg Documented by: [id number] Clonazepam (Klonopin) 0.5 mg PO BID PRN PRN Reason: anxiety Stop: 01/30/20 18:15 Last Admin: 12/31/19 22:17 Dose: 0.5 mg Documented by: [id number] Enoxaparin Sodium (Lovenox) 40 mg SQ Q12H JOSE Stop: 01/30/20 20:59 Last Admin: 01/01/20 09:03 Dose: 40 mg Documented by: [id number] Admin: 12/31/19 22:05 Dose: 40 mg Documented by: [id number] Ergocalciferol (Vitamin D2) 50,000 units PO TODAY@0900 JOSE Stop: 01/31/20 08:59 Last Admin: 01/01/20 08:47 Dose: 50,000 units Documented by: [id number] Escitalopram Oxalate (Lexapro Tab) 20 mg PO QAM [facility] Stop: 01/31/20 08:59 Last Admin: 01/01/20 08:48 Dose: 20 mg Documented by: [id number] Estradiol (Estrace) 1 mg PO DAILY [facility] Stop: 01/31/20 08:59 Last Admin: 01/01/20 08:48 Dose: 1 mg Documented by: [id number] Ceftriaxone Sodium 2,000 mg/ (Dextrose) 50 mls @ 100 mls/hr IV Q24H [facility]; Protocol Stop: 01/05/20 18:15 Last Admin: 12/31/19 18:46 Dose: Not Given Documented by: [id number] Potassium Chloride 20 meq/ (Sodium Chloride) 1,010 mls @ 100 mls/hr IV .Q10H6M [facility] Stop: 01/31/20 08:29 Last Admin: 01/01/20 08:39 Dose: 100 mls/hr Documented by: [id number] Magnesium Sulfate/Dextrose (Magnesium Sulfate / D5w) 1 gm in 100 mls @ 50 mls/hr IV Q2H [facility] Stop: 01/01/20 15:59 Last Admin: 01/01/20 10:38 Dose: 50 mls/hr Documented by: [id number] Insulin Aspart (Novolog Flexpen) 0 units SC ACHS [facility] Stop: 01/30/20 20:59 Last Admin: 01/01/20 09:08 Dose: 2 units Documented by: [id number] Cosigned by: [id number] Admin: 12/31/19 22:13 Dose: Not Given Documented by: [id number] Cosigned by: [id number] Levothyroxine Sodium (Synthroid) [facility] [place] Stop: 01/31/20 08:59 Last Admin: 01/01/20 08:51 Dose: 125 mcg Documented by: [id number] Losartan Potassium (Cozaar) 50 mg PO QAM [facility] Stop: 01/31/20 08:59 Last Admin: 01/01/20 08:50 Dose: 50 mg Documented by: [id number] Montelukast Sodium (Singulair) 10 mg PO HS [facility] Stop: 01/30/20 20:59 Last Admin: 12/31/19 22:51 Dose: 10 mg Documented by: [id number] Vitamin D (Vitamin D3) 1,000 units PO QAM [facility] Stop: 01/31/20 08:59 Last Admin: 01/01/20 08:49 Dose: 1,000 units Documented by: [id number] Coding Level of Care Code 20195 U Intl Hosp Care Lvl 2
[2020-01-01] MEDS: cloZAPine 25 MG TAB PO SCH ×2 (12:43→22:27)
--- NOTE | 2020-01-01 13:31 | Hospitalist Progress Note ---
Date of Service January 01, 2020 Assessment & Plan (1) Cystitis: 49 yo F PMHx schizoaffective disorder depressive type, DM2, HTN, HLD, hypothyroidism, asthma admitted for UTI and suicidal ideation. Sepsis 2/2 UTI: - Present on arrival with tachycardia, borderline leukocytosis, elevated lactate to 4.0 -> repeat 3.0 following rehydration with NSS 3L in ED. - Patient with UA and symptoms suggestive of UTI. UCx with gram negative bacilli --> follow (of note, has hx of Klebsiella which is pansensitive except to Nitrofurantoin. - BCx x2 not collected; Abx have been started and patient has been afebrile. Should patient develop fever over 38.0C would draw BCx. - Continue Rocephin IV -- transition to oral once urine culture resulted - Continue NSS at 150cc/hr for now - Repeat CBC AM. Hyponatremia/Hypokalemia: - On arrival patient with hyponatremia to 130, hypokalemia to 3.0 --> Hyponatremia resolved, currently 139. Hypokalemia improved, K 3.3 after 3L NSS and 40meq KCL PO. Will order additional 20meq and repeat labs in AM - Hyponatremia likely due to secondary loss from infection and vomiting. Can also have element of hyponatremia due to antipsychotic medications. - Holding desmopressin for now. - Repeat BMP AM. Suicidal ideation in patient with Hx schizoaffective disorder, depressive type: - With recent discharge 11/02 from [facility] for voluntary admission for SI due to worsening social stressors. - Today again with SI. - Continue home buspirone 20mg TID, PRN clonazepam 0.5mg BID PRN anxiety, Lexapro 20mg daily, trazodone 100mg PO qHS PRN sleep difficulty. Of note, lamictal previous discontinued outpatient and discontinued this morning. Pt did receive x 1 - Home clozapine is non-formulary; defer to Psychiatry service. --> resumed now that home medication received - Care per Psychiatry team, for likely admission to behavioral health unit following medical stabilization. - COVID 19 testing negative. Macrocytic anemia: - On arrival with Hgb 11.4 and MCV 75.4. - Iron level low at 23, all others: ferritin 73.4, transferrin 238, TIBC 352 -She states that she had a colonoscopy in the past but cannot remember the results. She has never had an EGD. - Initiated on iron supplementation - CBC in AM DM2: - History of, BSG 110s on arrival. BSGs have been acceptable - On metformin in outpatient. - Will hold for now, start SSI. - Can likely resume on admission to behavioral health unit. Hypothyroidism: - TSH in ED was slightly low at 0.285, with normal free T4 1.33. - Continue home levothyroxine 125mcg daily. Repeat TSH in 4 to 6 weeks when not acutely ill. Fatty liver and hepatosplenomegaly-noted on CT abdomen/pelvis Likely secondary to morbid obesity and STEIN -Needs outpatient follow-up Hypomagnesemia With low potassium, checked magnesium level with AM labs --> low at 1.5 Ordered 3gm IV magnesium Repeat Mag in AM Code Status: FULL CODE FEN/GI: DM2 diet, NSS @ 150cc/hr DVT ppx: Lovenox 40u q12h Dispo: Med/Surg for UTI treatment and electrolyte replacement. Likely will be stable for discharge to behavioral health unit tomorrow if labs resolved and able to transition to PO abx (2) Suicidal ideation: (3) Type 2 diabetes mellitus: (4) Hypothyroidism: (5) Hypertension: (6) Dyslipidemia: (7) Asthma: (8) Schizoaffective disorder, depressive type: (9) Microcytic anemia: (10) Fatty liver: (11) Hepatosplenomegaly: (12) Hypomagnesemia: Admission and Anticipated Discharge Date Admission Date: December 31, 2019 Subjective Patient evaluated this morning. States "I just want to be happy" with regards to her mental health. Voices that she wants to go to inpatient psych for treatment of current SI. Patient denies fevers, chills, cp, sob, abdominal pain at this time. Eating/drinking ok. States urinary frequency has decreased since admission. Confirms that lamictal had been discontinued previously by Dr. Urbina and that she is used to taking Latuda at night with her evening meal despite being given it this morning. Plans to continue fluids and electrolyte replacement and possible discharge to mental health unit tomorrow if stable. Review of Systems Review of Systems: All systems reviewed & are unremarkable except as noted in HPI & below Physical Exam Constitutional: well developed and + obese Eyes: PERRL, conjunctivae normal, anicteric sclerae ENMT: external ear and nose normal, oropharynx normal Neck: normal visual inspection Respiratory: normal respiratory effort; no cough Auscultation: no crackles and no wheezes decreased breath sounds throughout Cardiovascular: RRR, no murmur, no edema Gastrointestinal (Abdomen): normal bowel sounds, soft, nontender, no hepatosplenomegaly no suprapubic or CVA tenderness Musculoskeletal: no cyanosis or clubbing, extremities motor strength 5/5 Skin: no rashes, warm and dry Neurologic: moves all extremities; no focal motor deficits Speech / Cognition: normal speech Motor/Sensory: no tremor Psychiatric: Orientation: alert and oriented x 3 Affect: + flat affect Lymphatic: no cervical or axillary lymphadenopathy Results & Data Results & Data ([facility]) Vital Signs (Past 12 Hours) Vital Signs Temp Pulse Resp BP Pulse Ox 01/01/20 07:52 36.5 C 82 18 104/71 94 Laboratory Results 01/01/20 01/01/20 01/01/20 Range/Units 12:23 09:07 05:28 WBC (4.8-10.8) K/uL RBC (4.2-5.4) M/uL Hgb (12.0-16.0) g/dL Hct (37-47) % MCV (80-100) fL MCH (25-34) pg MCHC (32-36) g/dL RDW Std Deviation (36.4-46.3) fL RDW Coeff of Bret (11.5-14.5) % Plt Count (130-400) K/uL MPV (7.4-10.4) fL Immature Gran % (Auto) % Neut % (Auto) % Lymph % (Auto) % [place] % (Auto) % Eos % (Auto) % Baso % (Auto) % Neut # (Auto) (1.4-6.5) K/uL Lymph # (Auto) (1.2-3.4) K/uL [place] # (Auto) (0.11-0.59) K/uL Eos # (Auto) (0-0.5) K/uL Baso # (Auto) (0-0.2) K/uL Immature Gran # (Auto) (0.00-0.02) K/uL Sodium (136-145) mmol/L Potassium (3.5-5.1) mmol/L Chloride (98-107) mmol/L Carbon Dioxide (21-32) mmol/L Anion Gap (3-11) BUN (7-18) mg/dl Creatinine (0.6-1.2) mg/dl Est Cr Clr Drug Dosing ml/min Est GFR ( Amer) Est GFR (Non-Af Amer) BUN/Creatinine Ratio (10-20) Glucose (70-99) mg/dl POC Glucose 158 H 120 H (70-99) mg/dl Lactate (0.4-2.0) mmol/L Calcium (8.5-10.1) mg/dl Magnesium 1.5 L (1.8-2.4) mg/dl Iron (35-150) mcg/dl TIBC (250-450) mcg/dl Transferrin (200-360) mg/dl Ferritin (8-388) ng/ml 01/01/20 01/01/20 12/31/19 Range/Units 05:28 05:28 20:24 WBC 8.30 (4.8-10.8) K/uL RBC 4.07 L (4.2-5.4) M/uL Hgb 10.3 L (12.0-16.0) g/dL Hct 31.9 L (37-47) % MCV 78.4 L (80-100) fL MCH 25.3 (25-34) pg MCHC 32.3 (32-36) g/dL RDW Std Deviation 43.6 (36.4-46.3) fL RDW Coeff of Bret 15.3 H (11.5-14.5) % Plt Count 254 (130-400) K/uL MPV 9.1 (7.4-10.4) fL Immature Gran % (Auto) 0.4 % Neut % (Auto) 68.9 % Lymph % (Auto) 21.8 % [place] % (Auto) 8.9 % Eos % (Auto) 0.0 % Baso % (Auto) 0.0 % Neut # (Auto) 5.72 (1.4-6.5) K/uL Lymph # (Auto) 1.81 (1.2-3.4) K/uL [place] # (Auto) 0.74 H (0.11-0.59) K/uL Eos # (Auto) 0.00 (0-0.5) K/uL Baso # (Auto) 0.00 (0-0.2) K/uL Immature Gran # (Auto) 0.03 H (0.00-0.02) K/uL Sodium 139 D (136-145) mmol/L Potassium 3.3 L (3.5-5.1) mmol/L Chloride 109 H (98-107) mmol/L Carbon Dioxide 24 (21-32) mmol/L Anion Gap 7.0 (3-11) BUN 12 (7-18) mg/dl Creatinine 0.71 D (0.6-1.2) mg/dl Est Cr Clr Drug Dosing 121.9 ml/min Est GFR ( Amer) 114.3 Est GFR (Non-Af Amer) 98.6 BUN/Creatinine Ratio 17.2 (10-20) Glucose 100 H (70-99) mg/dl POC Glucose 113 H (70-99) mg/dl Lactate (0.4-2.0) mmol/L Calcium 8.1 L (8.5-10.1) mg/dl Magnesium (1.8-2.4) mg/dl Iron (35-150) mcg/dl TIBC (250-450) mcg/dl Transferrin (200-360) mg/dl Ferritin (8-388) ng/ml 12/31/19 12/31/19 Range/Units 15:39 13:34 WBC (4.8-10.8) K/uL RBC (4.2-5.4) M/uL Hgb (12.0-16.0) g/dL Hct (37-47) % MCV (80-100) fL MCH (25-34) pg MCHC (32-36) g/dL RDW Std Deviation (36.4-46.3) fL RDW Coeff of Bret (11.5-14.5) % Plt Count (130-400) K/uL MPV (7.4-10.4) fL Immature Gran % (Auto) % Neut % (Auto) % Lymph % (Auto) % [place] % (Auto) % Eos % (Auto) % Baso % (Auto) % Neut # (Auto) (1.4-6.5) K/uL Lymph # (Auto) (1.2-3.4) K/uL [place] # (Auto) (0.11-0.59) K/uL Eos # (Auto) (0-0.5) K/uL Baso # (Auto) (0-0.2) K/uL Immature Gran # (Auto) (0.00-0.02) K/uL Sodium (136-145) mmol/L Potassium (3.5-5.1) mmol/L Chloride (98-107) mmol/L Carbon Dioxide (21-32) mmol/L Anion Gap (3-11) BUN (7-18) mg/dl Creatinine (0.6-1.2) mg/dl Est Cr Clr Drug Dosing ml/min Est GFR ( Amer) Est GFR (Non-Af Amer) BUN/Creatinine Ratio (10-20) Glucose (70-99) mg/dl POC Glucose (70-99) mg/dl Lactate 3.0 H* (0.4-2.0) mmol/L Calcium (8.5-10.1) mg/dl Magnesium (1.8-2.4) mg/dl Iron 23 L (35-150) mcg/dl TIBC 352 (250-450) mcg/dl Transferrin 238 (200-360) mg/dl Ferritin 73.4 (8-388) ng/ml PG Care Time/CCT Total # of Minutes Spent Total Time Spent with Patient: Total time spent is greater than 50% in coordination of care (as documented) at patient's floor/unit and/or counseling patient: Coding Level of Care Code 32996 Subseq Hosp Care Lvl 3 Diagnoses Cystitis N30.90 Suicidal ideation R45.851 Type 2 diabetes mellitus E11.9 Diabetes mellitus account development associate insulin use: without account development associate use Diabetes mellitus complication status: without complication Hypothyroidism E03.9 Hypothyroidism type: unspecified Hypertension I10 Hypertension type: essential hypertension Dyslipidemia E78.5 Asthma J45.909 Asthma severity: unspecified severity Asthma persistence: unspecified Asthma complication type: uncomplicated Schizoaffective disorder, depressive type F25.1 Microcytic anemia D50.9 Fatty liver K76.0 Hepatosplenomegaly R16.2 Hypomagnesemia E83.42 (1) Type 2 diabetes mellitus Diabetes mellitus intermediate insulin use: without intermediate use Diabetes mellitus complication status: without complication Qualified Code(s): E11.9 - Type 2 diabetes mellitus without complications (2) Hypothyroidism Hypothyroidism type: unspecified Qualified Code(s): E03.9 - Hypothyroidism, unspecified (3) Hypertension Hypertension type: essential hypertension Qualified Code(s): I10 - Essential (primary) hypertension (4) Asthma Asthma severity: unspecified severity Asthma persistence: unspecified Asthma complication type: uncomplicated Qualified Code(s): J45.909 - Unspecified asthma, uncomplicated
[2020-01-01] MEDS: FERROUS SULFATE 325 MG TAB PO SCH (17:51)
[2020-01-01] MEDS: cefTRIAXone SODIUM 2,000 MG in DEXTROSE 5% 50 ML IV SCH (18:29)
[2020-01-01] MEDS: TRAZODONE HCL 100 MG TAB PO SCH (22:26)
[2020-01-01] MEDS: cloZAPine 100 MG TAB PO SCH (22:27)
[2020-01-01] MEDS: ATORVASTATIN 20 MG TAB PO SCH (22:28)
[2020-01-01] MEDS: MONTELUKAST SODIUM 10 MG TABLET PO SCH (22:28)
[2020-01-02 06:25] LABS: Hemoglobin 10.3 g/dL (12.0-16.0); Mean Corpuscular Hemoglobin 25.3 pg (25-34); Mean Corpuscular Hgb Conc 32.2 g/dL (32-36); Mean Corpuscular Volume 78.6 fL (80-100); Mean Platelet Volume 9.1 fL (7.4-10.4); Platelet Count 254 K/uL (130-400); RDW Coefficient of Variation 15.4 % (11.5-14.5); RDW Standard Deviation 44.1 fL (36.4-46.3); Red Blood Count 4.07 M/uL (4.2-5.4); White Blood Count 6.26 K/uL (4.8-10.8)
[2020-01-02] MEDS: NSS + 20MEQ KCL 20 MEQ/1,000 ML BAG IV SCH ×2 (06:55→20:17)
[2020-01-02 06:59] LABS: BUN Creatinine Ratio 10.4 (10-20); Calcium 8.6 mg/dl (8.5-10.1); Creatinine Clr Calc Pharmacy 135.2 ml/min; Est GFR (African American) 119.7; Est GFR (Non-African American) 103.3; Magnesium 1.8 mg/dl (1.8-2.4); Potassium 4.1 mmol/L (3.5-5.1)
[2020-01-02] MEDS: INSULIN ASPART 100 UNITS/ML 3 ML PEN SC SCH ×4 (09:09→22:19)
[2020-01-02] MEDS: cloZAPine 25 MG TAB PO SCH ×2 (09:59→22:17)
[2020-01-02] MEDS: FERROUS SULFATE 325 MG TAB PO SCH (10:00)
[2020-01-02] MEDS: LOSARTAN POTASSIUM 50 MG TAB PO SCH (10:00)
[2020-01-02] MEDS: estradioL 1 MG TAB PO SCH (10:00)
[2020-01-02] MEDS: ESCITALOPRAM OXALATE 20 MG TAB PO SCH (10:01)
[2020-01-02] MEDS: CHOLECALCIFEROL 1,000 UNITS 25 MCG TAB PO SCH (10:02)
[2020-01-02] MEDS: ERGOCALCIFEROL 50,000 UNITS CAP PO SCH (10:02)
[2020-01-02] MEDS: ENOXAPARIN INJ 40 MG/0.4 ML SYR SQ SCH ×2 (10:05→22:16)
--- NOTE | 2020-01-02 10:11 | Hospitalist Progress Note ---
Date of Service January 02, 2020 Assessment & Plan (1) Cystitis: 49 yo F PMHx schizoaffective disorder depressive type, DM2, HTN, HLD, hypothyroidism, asthma admitted for UTI and suicidal ideation. Sepsis 2/2 UTI: * Improving. WBC down to 6.2k, no fever. - Present on arrival with tachycardia, borderline leukocytosis, elevated lactate to 4.0 -> repeat 3.0 following rehydration with NSS 3L in ED. - Urine growing Klebsiella --> transitioned from Ceftriaxone to Bactrim in hopes for d/c to [facility] on Friday - BCx x2 not collected; Abx have been started and patient has been afebrile. Should patient develop fever over 38.0C would draw BCx. - IVF discontinued on 01/01 - Repeat CBC AM --If continued improvement would be stable for discharge to inpatient behavioral health unit Friday am Hyponatremia/Hypokalemia: - On arrival patient with hyponatremia to 130, hypokalemia to 3.0 --> Hyponatremia resolved, currently 141 --> Hypokalemia resolved, currently 4.1 - Hyponatremia likely due to secondary loss from infection and vomiting. Can also have element of hyponatremia due to antipsychotic medications. - Resumed desmopressin - Repeat BMP AM. Suicidal ideation in patient with Hx schizoaffective disorder, depressive type: - With recent discharge 11/02 from [facility] for voluntary admission for SI due to worsening social stressors. - Today again with SI. - Continue home buspirone 20mg TID, PRN clonazepam 0.5mg BID PRN anxiety, Lexapro 20mg daily, trazodone 100mg PO qHS PRN sleep difficulty. Of note, lamictal previous discontinued outpatient and discontinued this morning. Pt did receive x 1 on admission - Home clozapine is non-formulary; defer to Psychiatry service. --> resumed on 12/31 that home medication received - Care per Psychiatry team, for likely admission to behavioral health unit following medical stabilization (will have beds available on Friday with expected discharges today) - COVID 19 testing negative. Macrocytic anemia: - On arrival with Hgb 11.4 and MCV 75.4. - Iron level low at 23, all others: ferritin 73.4, transferrin 238, TIBC 352 - She states that she had a colonoscopy in the past but cannot remember the results. She has never had an EGD. - Initiated on iron supplementation - CBC with h/h 10.3/32.0 but had been on continuous IVF - Repeat CBC in AM DM2: - History of, BSG 110s on arrival. BSGs have been acceptable - On metformin in outpatient. - Will hold for now, start SSI. - Can likely resume on admission to behavioral health unit. Hypothyroidism: - TSH in ED was slightly low at 0.285, with normal free T4 1.33. - Continue home levothyroxine 125mcg daily. Repeat TSH in 4 to 6 weeks when not acutely ill. Fatty liver and hepatosplenomegaly-noted on CT abdomen/pelvis Likely secondary to morbid obesity and STEIN -Needs outpatient follow-up Hypomagnesemia With low potassium on admission I added mag level to AM labs 12/31 which was low at 1.5. RESOLVED -- Given IV replacement with repeat 1.8 wnl DVT ppx: Lovenox 40u q12h Dispo: Med/Surg for UTI treatment and electrolyte replacement. Likely will be stable for discharge to behavioral health unit tomorrow if labs resolved and able to transition to PO abx (2) Suicidal ideation: (3) Type 2 diabetes mellitus: (4) Hypothyroidism: (5) Hypertension: (6) Dyslipidemia: (7) Asthma: (8) Schizoaffective disorder, depressive type: (9) Microcytic anemia: (10) Fatty liver: (11) Hepatosplenomegaly: (12) Hypomagnesemia: Admission and Anticipated Discharge Date Admission Date: December 31, 2019 Subjective Patient evaluated this morning. Feeling about the same. Continues with decreased urinary frequency. Still with depressed mood and wanting to go to inpatient psych treatment. States she has not been hungry much due to her depressed state but she did eat a banana for breakfast. Discussed that labs are improved today and that we may transition to oral antibiotic and discontinue IVF but that she would need to continue to eat and drink adequately before and remain stable on AM labs prior to discharging to inpatient tx. Denies fever, chills, cp, sob, abdominal pain, n/v/d at this time. Would like her DDAVP restarted tonight if possible. Review of Systems Review of Systems: All systems reviewed & are unremarkable except as noted in HPI & below Physical Exam Constitutional: well developed and + obese Eyes: PERRL, conjunctivae normal, anicteric sclerae ENMT: external ear and nose normal, oropharynx normal Neck: normal visual inspection Respiratory: normal respiratory effort; no cough Auscultation: no crackles and no wheezes Cardiovascular: RRR, no murmur, no edema Gastrointestinal (Abdomen): normal bowel sounds, soft, nontender, no hepatosplenomegaly Musculoskeletal: no cyanosis or clubbing, extremities motor strength 5/5 Skin: no rashes, warm and dry Neurologic: moves all extremities; no focal motor deficits Speech / Cognition: normal speech Motor/Sensory: no tremor Psychiatric: Orientation: alert and oriented x 3 Affect: + flat affect Lymphatic: no cervical or axillary lymphadenopathy Results & Data Results & Data ([facility]) Vital Signs (Past 12 Hours) Vital Signs Temp Pulse Resp BP Pulse Ox 01/02/20 07:05 36.6 C 90 18 145/87 H 94 01/01/20 22:43 36.7 C 84 16 113/67 95 Laboratory Results 01/02/20 01/02/20 01/02/20 Range/Units 12:12 08:22 05:32 WBC (4.8-10.8) K/uL RBC (4.2-5.4) M/uL Hgb (12.0-16.0) g/dL Hct (37-47) % MCV (80-100) fL MCH (25-34) pg MCHC (32-36) g/dL RDW Std Deviation (36.4-46.3) fL RDW Coeff of Bret (11.5-14.5) % Plt Count (130-400) K/uL MPV (7.4-10.4) fL Sodium 142 (136-145) mmol/L Potassium 4.1 D (3.5-5.1) mmol/L Chloride 113 H (98-107) mmol/L Carbon Dioxide 24 (21-32) mmol/L Anion Gap 5.0 (3-11) BUN 7 D (7-18) mg/dl Creatinine 0.64 (0.6-1.2) mg/dl Est Cr Clr Drug Dosing 135.2 ml/min Est GFR ( Amer) 119.7 Est GFR (Non-Af Amer) 103.3 BUN/Creatinine Ratio 10.4 (10-20) Glucose 117 H (70-99) mg/dl POC Glucose 125 H 130 H (70-99) mg/dl Calcium 8.6 (8.5-10.1) mg/dl Magnesium 1.8 (1.8-2.4) mg/dl 01/02/20 01/01/20 01/01/20 Range/Units 05:32 20:28 17:28 WBC 6.26 (4.8-10.8) K/uL RBC 4.07 L (4.2-5.4) M/uL Hgb 10.3 L (12.0-16.0) g/dL Hct 32.0 L (37-47) % MCV 78.6 L (80-100) fL MCH 25.3 (25-34) pg MCHC 32.2 (32-36) g/dL RDW Std Deviation 44.1 (36.4-46.3) fL RDW Coeff of Bret 15.4 H (11.5-14.5) % Plt Count 254 (130-400) K/uL MPV 9.1 (7.4-10.4) fL Sodium (136-145) mmol/L Potassium (3.5-5.1) mmol/L Chloride (98-107) mmol/L Carbon Dioxide (21-32) mmol/L Anion Gap (3-11) BUN (7-18) mg/dl Creatinine (0.6-1.2) mg/dl Est Cr Clr Drug Dosing ml/min Est GFR ( Amer) Est GFR (Non-Af Amer) BUN/Creatinine Ratio (10-20) Glucose (70-99) mg/dl POC Glucose 136 H 146 H (70-99) mg/dl Calcium (8.5-10.1) mg/dl Magnesium (1.8-2.4) mg/dl PG Care Time/CCT Total # of Minutes Spent Total Time Spent with Patient: Total time spent is greater than 50% in coordination of care (as documented) at patient's floor/unit and/or counseling patient: Coding Level of Care Code 17413 Subseq Hosp Care Lvl 3 Diagnoses Cystitis N30.90 Suicidal ideation R45.851 Type 2 diabetes mellitus E11.9 Diabetes mellitus terminal make up operator insulin use: without terminal make up operator use Diabetes mellitus complication status: without complication Hypothyroidism E03.9 Hypothyroidism type: unspecified Hypertension I10 Hypertension type: essential hypertension Dyslipidemia E78.5 Asthma J45.909 Asthma severity: unspecified severity Asthma persistence: unspecified Asthma complication type: uncomplicated Schizoaffective disorder, depressive type F25.1 Microcytic anemia D50.9 Fatty liver K76.0 Hepatosplenomegaly R16.2 Hypomagnesemia E83.42 (1) Type 2 diabetes mellitus Diabetes mellitus terminal make up operator insulin use: without senior living use Diabetes mellitus complication status: without complication Qualified Code(s): E11.9 - Type 2 diabetes mellitus without complications (2) Hypothyroidism Hypothyroidism type: unspecified Qualified Code(s): E03.9 - Hypothyroidism, unspecified (3) Hypertension Hypertension type: essential hypertension Qualified Code(s): I10 - Essential (primary) hypertension (4) Asthma Asthma severity: unspecified severity Asthma persistence: unspecified Asthma complication type: uncomplicated Qualified Code(s): J45.909 - Unspecified asthma, uncomplicated
[2020-01-02] MEDS ORDERED: LURASIDONE HCL 40 MG TAB PO SCH (15:30)
[2020-01-02] MEDS: LEVOTHYROXINE SODIUM 125 MCG TABLET PO SCH (18:35)
[2020-01-02] MEDS ORDERED: DESMOPRESSIN ACETATE 0.1 MG TAB PO SCH (21:00)
[2020-01-02] MEDS: ATORVASTATIN 20 MG TAB PO SCH (22:16)
[2020-01-02] MEDS: MONTELUKAST SODIUM 10 MG TABLET PO SCH (22:16)
[2020-01-02] MEDS: cloZAPine 100 MG TAB PO SCH (22:16)
[2020-01-02] MEDS: SULFAMETHOXAZOLE/TRIMETHOPRIM DS 800/160MG TAB PO SCH (22:17)
[2020-01-02] MEDS: TRAZODONE HCL 100 MG TAB PO SCH (22:17)
[2020-01-03 06:23] LABS: Hematocrit (blood only) 31.5 % (37-47); Hemoglobin 10.1 g/dL (12.0-16.0); Mean Corpuscular Hemoglobin 25.3 pg (25-34); Mean Corpuscular Hgb Conc 32.1 g/dL (32-36); Mean Corpuscular Volume 78.9 fL (80-100); Platelet Count 256 K/uL (130-400); RDW Coefficient of Variation 15.2 % (11.5-14.5); RDW Standard Deviation 44.1 fL (36.4-46.3); Red Blood Count 3.99 M/uL (4.2-5.4); White Blood Count 7.25 K/uL (4.8-10.8)
[2020-01-03 06:50] LABS: BUN Creatinine Ratio 7.6 (10-20); Calcium 8.6 mg/dl (8.5-10.1); Creatinine Clr Calc Pharmacy 133.2 ml/min; Est GFR (African American) 119.1; Est GFR (Non-African American) 102.8; Magnesium 1.4 mg/dl (1.8-2.4)
[2020-01-03] MEDS: LEVOTHYROXINE SODIUM 125 MCG TABLET PO SCH (09:23)
[2020-01-03] MEDS: LOSARTAN POTASSIUM 50 MG TAB PO SCH (09:24)
[2020-01-03] MEDS: cloZAPine 25 MG TAB PO SCH (09:24)
[2020-01-03] MEDS: FERROUS SULFATE 325 MG TAB PO SCH (09:25)
[2020-01-03] MEDS: CHOLECALCIFEROL 1,000 UNITS 25 MCG TAB PO SCH (09:25)
[2020-01-03] MEDS: estradioL 1 MG TAB PO SCH (09:25)
[2020-01-03] MEDS: ESCITALOPRAM OXALATE 20 MG TAB PO SCH (09:26)
[2020-01-03] MEDS: SULFAMETHOXAZOLE/TRIMETHOPRIM DS 800/160MG TAB PO SCH (09:26)
[2020-01-03] MEDS: ERGOCALCIFEROL 50,000 UNITS CAP PO SCH (09:26)
[2020-01-03] MEDS: ENOXAPARIN INJ 40 MG/0.4 ML SYR SQ SCH (09:27)
[2020-01-03] MEDS: INSULIN ASPART 100 UNITS/ML 3 ML PEN SC SCH ×2 (09:27→12:38)
[2020-01-03] MEDS: MAGNESIUM SULFATE / D5W 1 GM/100 ML BAG IV SCH ×2 (10:52→13:04)
--- NOTE | 2020-01-03 13:24 | Discharge Summary ---
Date of Service January 03, 2020 Admission HPI Per Admitting Provider 49 yo F PMHx schizoaffective disorder depressive type, DM2, HTN, HLD, hypothyroidism, asthma presents to emergency room for SI, and also endorses urinary frequency and vomiting x1 day. Reports that she has "heard her grandfather's voice telling her to hurt herself" since she was in 4th grade. For the last week has had worsening in her depressive symptoms and in the negative voices, such that today she had a plan to commit suicide by overdosing on her home medications. She endorses no active voices during my interview. She also reports that for about a day she has had increased urinary frequency and urgency as well as one episode of emesis, but denies dysuria, hematuria, fevers or chills, flank or abdominal pains. Also denies SOB, CP, dizziness or headaches, constipation or diarrhea. She has a history of frequent UTI with urine culture growth typically of pansensitive (save for nitrofurantoin) Klebsiella. Patient denies smoking, alcohol use, or illicit drug use. ED course: Patient was found to be tachycardic to low 100s, labwork with leukocytosis and L shift, hyponatremia, hypokalemia, elevated lactate, microcytic anemia. UA with bacteria, LE, nitrites, >30 WBCs. UDS positive for MDMA. COVID 19 negative. CTAP showed bilateral nephrolithiasis without hydronephrosis, no signs of pyelonephritis on imaging. Principal Diagnosis UTI, sepsis Discharge Exam Constitutional WD/WN, vitals as above Respiratory normal respiratory effort, lungs clear to auscultation Cardiovascular RRR, no murmur, no edema Gastrointestinal (Abdomen) Inspection/Auscultation: abdomen normal to inspection and normal bowel sounds; abdomen not distended Percussion/Palpation: abdomen soft; abdomen nontender Musculoskeletal no cyanosis or clubbing, extremities motor strength 5/5 Skin no rashes, warm and dry Neurologic moves all extremities and awake Psychiatric A+Ox3, euthymic affect Discharge Data Allergies Allergy/AdvReac Type Severity Reaction Status Date / Time prednisone Allergy Severe hallucinati Verified 06/06/19 10:01 ons chlorpromazine Allergy Mild LIGHTHEADED Verified 06/06/19 10:01 SHUFFLING GAIT aspirin Allergy Unknown Unknown Verified 06/06/19 10:01 doxycycline Allergy Unknown HEARING Verified 06/06/19 10:01 VOICES, depression levofloxacin Allergy Unknown ?ALLERGIC Verified 06/06/19 10:01 TO LEVAQUIN? NSAIDS (Non-Steroidal Allergy Unknown . Verified 06/06/19 10:01 Anti-Inflamma Penicillins Allergy Unknown RASH, Verified 06/06/19 10:01 nausea and vomitting quinine Allergy Unknown Unknown Verified 06/06/19 10:01 theophylline [From [facility]] AdvReac Verified 06/06/19 10:01 Consultations 12/31/19 16:40 ED Decision to Admit Stat 12/31/19 18:16 Consult Psychiatry Routine 12/31/19 18:55 Consult Case Management - Discharge Planning Routine Ordered Studies 12/31/19 15:53 CT abd pelvis IV con only Stat Hospital Course (1) Cystitis: 49 yo F PMHx schizoaffective disorder depressive type, DM2, HTN, HLD, h ypothyroidism, asthma admitted for UTI and suicidal ideation. Sepsis 07/04 UTI: * Improving. WBC wnl, no fever. - Present on arrival with tachycardia, borderline leukocytosis, elevated lactate to 4.0 -> repeat 3.0 following rehydration with NSS 3L in ED. - Urine growing Klebsiella --> transitioned from Ceftriaxone to Bactrim - BC x 2 not collected - abx had been initiated and patient improving clinically so will not re-order - IVF discontinued on 01/01 Hyponatremia/Hypokalemia: - On arrival patient with hyponatremia to 130, hypokalemia to 3.0 --> Hyponatremia resolved --> Hypokalemia resolved - Hyponatremia likely due to secondary loss from infection and vomiting. Can also have element of hyponatremia due to antipsychotic medications. - Resumed desmopressin Suicidal ideation in patient with Hx schizoaffective disorder, depressive type: - With recent discharge 11/02 from [facility] for voluntary admission for SI due to worsening social stressors. - Continue home buspirone 20mg TID, PRN clonazepam 0.5mg BID PRN anxiety, Lexapro 20mg daily, trazodone 100mg PO qHS PRN sleep difficulty. Of note, lamictal previous discontinued outpatient and discontinued this morning. Pt did receive x 1 on admission - Home clozapine is non-formulary; defer to Psychiatry service. --> resumed on 12/31 that home medication received - Care per Psychiatry team - COVID 19 testing negative. Macrocytic anemia: - Stable - Iron level low at 23, all others: ferritin 73.4, transferrin 238, TIBC 352 - She states that she had a colonoscopy in the past but cannot remember the results. She has never had an EGD. - Initiated on iron supplementation DM2: - BSGs have been acceptable - On metformin in outpatient - can resume on discharge as patient is [address] contrast - Will hold for now, start SSI. Hypothyroidism: - TSH in ED was slightly low at 0.285, with normal free T4 1.33. - Continue home levothyroxine 125mcg daily. Repeat TSH in 4 to 6 weeks when not acutely ill. Fatty liver and hepatosplenomegaly-noted on CT abdomen/pelvis Likely secondary to morbid obesity and STEIN -Needs outpatient follow-up Hypomagnesemia 1.4 today - 2g IV and started po replacement DVT ppx: Lovenox 40u q12h inpatient (2) Suicidal ideation: (3) Type 2 diabetes mellitus: (4) Hypothyroidism: (5) Hypertension: (6) Dyslipidemia: (7) Asthma: (8) Schizoaffective disorder, depressive type: (9) Microcytic anemia: (10) Fatty liver: (11) Hepatosplenomegaly: (12) Hypomagnesemia: Total Time Total Time Spent Total Time Spent (In Minutes): greater than 30 minutes Discharge Plan Discharge Items Patient Disposition: Transfer Behavioral Health Fac Reason For Visit: UTI, SI Discharge Diagnosis: UTI, suicidal ideation Activity: Resume your previous activity Non-emergency contact: Primary Care Provider Call non-emergency contact if: you have any medication questions Follow-up/Referrals: Niles Tam MD [Primary Care Provider] - Diet: Regular Addtl Attending Provider Instructions: (1) Cystitis, Sepsis 2/2 UTI: Sepsis resolved Continue with Bactrim until 01/06 Hyponatremia/Hypokalemia: Resolved Continue desmopressin Suicidal ideation in patient with Hx schizoaffective disorder, depressive type: - With recent discharge 11/02 from [facility] for voluntary admission for SI due to worsening social stressors. - Continue home buspirone 20mg TID, PRN clonazepam 0.5mg BID PRN anxiety, Lexapro 20mg daily, trazodone 100mg PO qHS PRN sleep difficulty. Of note, lamictal previous discontinued outpatient and discontinued here after 1 dose on admission - Home clozapine is non-formulary; defer to Psychiatry service. --> resumed on 12/31 that home medication received - Care per Psychiatry team, for likely admission to behavioral health unit following medical stabilization - COVID 19 testing negative. Macrocytic anemia: - Stable - Iron level low at 23, all others: ferritin 73.4, transferrin 238, TIBC 352 - She states that she had a colonoscopy in the past but cannot remember the results. She has never had an EGD. - Initiated on iron supplementation - follow up with pcp Diabetes Mellitus II: - BSGs have been acceptable - On metformin in outpatient, resume at discharge Hypothyroidism: - TSH in ED was slightly low at 0.285, with normal free T4 1.33. - Continue home levothyroxine 125mcg daily. Repeat TSH in 4 to 6 weeks when not acutely ill. Fatty liver and hepatosplenomegaly-noted on CT abdomen/pelvis Likely secondary to morbid obesity and STEIN -Needs outpatient follow-up Hypomagnesemia With low potassium on admission and again today Replaced with IV and will start po replacement Pending Studies at Discharge: No Stand-Alone Forms: My [facility], Suicide Prevention Resources Medications and DC Order Prescriptions: New sulfamethoxazole-trimethoprim 800-160 mg Tablet 1 tab PO Q12 Qty: 10 RF: 0 magnesium oxide 400 mg (241.3 mg magnesium) Tablet 400 mg PO BID Qty: 60 RF: 0 Continued buspirone 10 mg tablet 20 mg PO TID RF: 0 ergocalciferol (vitamin D2) [Vitamin D2] 50,000 unit capsule 50,000 unit PO MONTHLY Qty: 12 RF: 3 metformin [Glucophage] 500 mg tablet 1,000 mg PO BID Qty: 360 RF: 3 estradiol 1 mg tablet 1 mg PO DAILY Qty: 30 RF: 11 cholecalciferol (vitamin D3) [Vitamin D3] 25 mcg (1,000 unit) capsule 1,000 units PO QAM Qty: 90 RF: 3 atorvastatin [Lipitor] 20 mg tablet 20 mg PO HS Qty: 30 RF: 5 levothyroxine [Synthroid] 125 mcg tablet 125 mcg PO QAM Qty: 90 RF: 3 clonazepam 0.5 mg tablet 0.5 mg PO BID PRN (Reason: anxiety) RF: 0 clozapine 50 mg tablet 50 mg PO DIRECTED RF: 0 trazodone 100 mg tablet 100 mg PO HS PRN (Reason: Sleep) RF: 0 desmopressin 0.2 mg tablet 0.2 mg PO HS RF: 0 Latuda 80 mg tablet 80 mg PO QDD RF: 0 escitalopram oxalate [Lexapro] 20 mg tablet 20 mg PO QAM RF: 0 losartan [Cozaar] 50 mg tablet 50 mg PO QAM RF: 0 montelukast 10 mg tablet 10 mg PO HS RF: 0 No Action clozapine 100 mg tablet 200 mg PO HS RF: 0 Discharge Orders: Discharge Order (Routine); Ordered 01/03/20 Ordered By: Hetal Álvarez/Other Patient Handouts: Understanding Urinary Tract Infections UTIs Admission Data Admit Date/Time: 12/31/19 18:16 Attending Provider: Prosper Mcqueen Admit Provider: Yesi San Primary Care Provider: Niles Tam Other Providers: Archana Urbina ; Prosper Mcqueen Other Interventions: Discharge Summary Assessment (RN) Last Done: 01/03/20 13:59 DC Date/Time DO NOT enter until pt leaves facility: 01/03/20 16:43 Supervising Physician Co-Signing Physician Notes I supervised Hetal Delatorre NP on this patient's care. I examined the patient today independently of her. I discussed the plan of care with her with the plan being as written in her note except for any following changes/exceptions: None. In no distress today. She is ready to be discharged to psychiatry. Coding Level of Care Code D/C Day Management >30 mins Diagnoses Cystitis N30.90 Suicidal ideation R45.851 Type 2 diabetes mellitus E11.9 Diabetes mellitus complication status: without complication Diabetes mellitus residential insulin use: without residential use Hypothyroidism E03.9 Hypothyroidism type: unspecified Hypertension I10 Hypertension type: essential hypertension Dyslipidemia E78.5 Asthma J45.909 Asthma complication type: uncomplicated Asthma persistence: unspecified Asthma severity: unspecified severity Schizoaffective disorder, depressive type F25.1 Microcytic anemia D50.9 Fatty liver K76.0 Hepatosplenomegaly R16.2 Hypomagnesemia E83.42
[2020-01-03 15:10] VITALS: BP 167/96; PULSE 82; TEMP 98.2; O2SAT 97
[2020-01-03] MEDS ORDERED: MAGNESIUM OXIDE 400 MG TAB PO SCH (21:00)
[2020-01-05 16:19] LABS: MDA negative; MDEA negative; MDMA (Ecstasy) Urine, Confirm negative
== END 2020-01-03 16:43 | DRG 872 ==
LOC: ED 12:34 → 2W 18:16 → SUATTDRO 18:16 → 2W 19:05 → 3W 22:44

== ENCOUNTER 2020-01-03 13:34 | Inpatient (IN) ==
[2020-01-03] MEDS ORDERED: SODIUM CHLORIDE 0.65% NA SOLN 45 ML (OCEAN) PRN (13:45)
[2020-01-03] MEDS ORDERED: MAGNESIUM HYDROXIDE SUSP 30 ML UDC PO PRN (13:45)
[2020-01-03] MEDS ORDERED: ALUMINUM/MAGNESIUM SUSP 30 ML UDC PO PRN (13:45)
[2020-01-03] MEDS ORDERED: ACETAMINOPHEN 325 MG TAB PO PRN (13:45)
[2020-01-03] MEDS ORDERED: BISMUTH SUBSALICYLATE PER ML OMNICELL CHARGE PO PRN (13:45)
[2020-01-03] MEDS ORDERED: PATIENT'S HEIGHT AND/OR WEIGHT NEEDED SCH (17:30)
[2020-01-03] MEDS: METFORMIN HCL 500 MG TAB PO SCH (18:18)
[2020-01-03] MEDS: LURASIDONE HCL 40 MG TAB PO SCH (18:18)
[2020-01-03] MEDS: clonazePAM 0.5 MG TAB PO PRN (20:44)
[2020-01-03] MEDS: ATORVASTATIN 20 MG TAB PO SCH (20:44)
[2020-01-03] MEDS: BusPIRone 15 MG TAB PO SCH (20:45)
[2020-01-03] MEDS: MAGNESIUM OXIDE 400 MG TAB PO SCH (20:46)
[2020-01-03] MEDS: SULFAMETHOXAZOLE/TRIMETHOPRIM DS 800/160MG TAB PO SCH (20:46)
[2020-01-03] MEDS: MONTELUKAST SODIUM 10 MG TABLET PO SCH (20:47)
[2020-01-03] MEDS: DESMOPRESSIN ACETATE 0.1 MG TAB PO SCH (20:47)
--- NOTE | 2020-01-04 06:41 | History & Physical ---
Date of Service January 04, 2020 Impression / Recommendations Impression 49-year-old single female with a history of severe and persistent mental illness, unemployed on disability, numerous hospitalizations, and multiple episodes of depression yearly who has been decompensating for over a week and presented for voluntary hospitalization, was found to be septic as a result of UTI and initially required several days on the hospitalist service before she could be medically stabilized and transferred to the [facility]. I have been seeing her in the outpatient clinic for years, trying to minimize polypharmacy which is been very challenging as she tends to rely heavily on medications for each symptom and has many medical comorbidities. She has been on clozapine, buspirone, escitalopram, and clonazepam as needed for some time, and during her last hospitalization 2 months ago, she was switched from lamotrigine to lurasidone to target mood. Today she is asking about a trial of duloxetine in place of the escitalopram, as she has never been on duloxetine before and her brother is apparently on it. (1) Schizoaffective disorder, depressive type: 01/03 - Continue home medications including clozapine (monthly CBC w/ diff, last 12/31 - ANC 5.2), lurasidone (just increased to 80mg last week), trazodone 100mg HS prn, and desmopressin. - Patient is requesting a trial of duloxetine to target mood. She has never been on it before, and her brother is apparently on it and has had a good response. We will taper off the citalopram and start duloxetine in its place. Reviewed the risks, benefits, alternatives, and side effects with the patient, and she expressed agreement. She has longstanding polypharmacy and has been very challenging to decrease her medications as she is quite resistant to this and often focuses on medication changes/new meds for all active symptoms. I do think the clozapine is beneficial for her, and given the evidence that it can help reduce suicide, it will be important to continue this medication as long as it is well-tolerated. - Fasting labs for monitoring on an atypical: 09/20/19: FLP normal, glu 119. - Coordinate w/ other OP clinicians/supports. Explore w/ BCM process of getting whipped topping finisher using waiver services. (2) Anxiety: 01/03 - Continue home doses of buspirone and clonazepam. Have repeatedly attempted to wean off clonazepam which patient has not tolerated well. We have reviewed the risks of chronic benzo use including cognitive impairment, tolerance, addiction, dementia, [employer] depression, drug drug interactions, and she feels the benefits of the medication for her severe and persistent anxiety outweigh the risks. (3) Personality disorder: 01/03 - Coordinate w/ OP therapist and other supports. Pt with borderline an d dependent traits (4) UTI (urinary tract infection): 01/03 - Complete course of sulfamethoxazole-trimethoprim 800-160 mg bid (01/06). (5) Hypothyroidism: Continue home dose of levothyroxine. TSH slightly low on presentation 12/30 (0.285), but was normal 2 mos prior and has been normal on multiple checks last 2 years. Will repeat tomorrow w/ fT4, as could be contributing to depression if hypothyroid. Hypothyroidism type: unspecified Qualified Code(s): E03.9 - Hypothyroidism, unspecified (6) Asthma: Continue home meds Asthma complication type: uncomplicated Asthma persistence: unspecified Asthma severity: unspecified severity Qualified Code(s): J45.909 - Unspecified asthma, uncomplicated (7) Type 2 diabetes mellitus: Continue metformin and diabetic diet. Diabetes mellitus complication status: without complication Diabetes mellitus snf insulin use: without snf use Qualified Code(s): E11.9 - Type 2 diabetes mellitus without complications (8) Hypertension: Continue home dose of losartan Hypertension type: essential hypertension Qualified Code(s): I10 - Essential (primary) hypertension (9) Dyslipidemia: Continue home dose of atorvastatin Risk Factors Assessment Do You Have Access To A Gun?: No Psychiatric History Identifying Data HOWIE HSU is a 49-year-old F who currently lives in [place] alone, has a history of schizoaffective disorder depressed type, anxiety, mixed personality disorder, obesity, and numerous previous hospitalizations, and was admitted on 01/03/20 16:43 on a 201 voluntary commitment for depression, SI, and command auditory hallucinations to kill herself. Chief Complaint " Not too good". History of Present Illness Patient is well known to me as I see her biweekly in my outpatient practice. She has frequent episodes of depression and came to the ER with her BCM on 12/31/2019 with worsening mood, SI, and command AH, but was initially admitted medically for a sepsis workup due to hypotension, tachycardia, fever, and UTI, received IV fluids and was started on Bactrim. She was seen by Dr. Nicole on consults over the weekend, and was medically cleared and transferred to the [facility] yesterday, 01/03/2020. She reports mood worsened about 9 days ago, with no clear trigger, although she is chronically isolated, which has intensified in the past 5 months due to the pandemic. She has not been attending to ADLs (not bathing or changing clothes regularly), and has not been using her coping skills including regular exercise. She states she continues to take Klonopin twice a day every day, describes her anxiety as "really bad," with excessive worry, focus on negative thoughts, feeling on edge and nervous. She reports ongoing suicidal thoughts but denies plan or intent to harm herself on the inpatient unit. She endorses poor motivation, low energy, low self-esteem, poor focus, guilt, and command auditory hallucinations to kill herself. She describes her mood as "just wanting to be ." She reports good compliance with medications at home, and states she talked to her brother who "thinks I need to try to go on Cymbalta, I've never been on it, and he is on it too." Past Psychiatric History Current Psychiatric Diagnosis: schizoaffective disorder, depressed type; personality disorder Outpatient Services: Dr. Urbina - psychiatry Lamar Miller - therapist Sheree SHAVER ([employer]) works at [employer] one day/week Was recently working with a mobile psych rehab worker, Jose E, and client specialist Has previously attended psych rehab and [facility], not currently Recently approved for waiver services and plans to get an whipped topping finisher Previous Psych Admissions: Numerous, last on [facility] 10/2019 Do You Have Access To A Gun?: No Past Medication Trials: Extensive. Include but not limited to: Effexor XR, Lamotrigine, Mondamin, Depakote, Saphris, Latuda, Ativan, Imipramine, Geodon, Clozapine, Zoloft, Cogentin, Trazodone, Lexapro, Remeron, Trihexyphenidyl, Abilify, Thiothixene. Allergies Allergy/AdvReac Type Severity Reaction Status Date / Time prednisone Allergy Severe hallucinati Verified 06/06/19 10:01 ons chlorpromazine Allergy Mild LIGHTHEADED Verified 06/06/19 10:01 SHUFFLING GAIT aspirin Allergy Unknown Unknown Verified 06/06/19 10:01 doxycycline Allergy Unknown HEARING Verified 06/06/19 10:01 VOICES, depression levofloxacin Allergy Unknown ?ALLERGIC Verified 06/06/19 10:01 TO LEVAQUIN? NSAIDS (Non-Steroidal Allergy Unknown . Verified 06/06/19 10:01 Anti-Inflamma Penicillins Allergy Unknown RASH, Verified 06/06/19 10:01 nausea and vomitting quinine Allergy Unknown Unknown Verified 06/06/19 10:01 theophylline [From [facility]] AdvReac Verified 06/06/19 10:01 Home Medications Home Medications Medication Instructions Recorded Confirmed Type escitalopram oxalate [Lexapro] 20 mg PO QAM 02/25/18 01/04/20 History clonazepam 0.5 mg tablet 0.5 mg PO BID PRN tab 01/11/19 01/04/20 History buspirone 10 mg tablet 20 mg PO TID tab 01/22/19 01/04/20 History ergocalciferol (vitamin D2) 1,250 50,000 unit PO MONTHLY #12 cap 02/03/19 01/04/20 Rx mcg (50,000 unit) capsule metformin 500 mg tablet 1,000 mg PO BID #360 tab 02/08/19 01/04/20 Rx losartan [Cozaar] 50 mg PO QAM 06/06/19 01/04/20 History montelukast 10 mg PO HS 06/06/19 01/04/20 History estradiol 1 mg tablet 1 mg PO DAILY #30 tab 07/20/19 01/04/20 Rx cholecalciferol (vitamin D3) 25 1,000 units PO QAM #90 cap 08/23/19 01/04/20 Rx mcg (1,000 unit) capsule clozapine 50 mg PO DIRECTED 10/28/19 12/31/19 History desmopressin 0.2 mg PO HS 10/28/19 01/04/20 History trazodone 100 mg PO HS PRN 10/28/19 01/04/20 History atorvastatin 20 mg tablet 20 mg PO HS #30 tab 11/18/19 01/04/20 Rx levothyroxine 125 mcg tablet 125 mcg PO QAM #90 tab 12/29/19 01/04/20 Rx Latuda 80 mg PO QDD 12/31/19 01/04/20 History magnesium oxide 400 mg PO BID #60 tab 01/03/20 01/04/20 Rx sulfamethoxazole-trimethoprim 1 tab PO Q12 #10 tab 01/03/20 01/04/20 Rx clozapine 200 mg PO HS 01/04/20 01/04/20 History Family History Family History of: Alcoholism/Drug Abuse (Brother -alcoholism) Family Mental Health History Comment: Brother reportedly on Cymbalta, unclear what for. Alcohol History Hx of Alcohol Use Over the Past 12 Months: No AUDIT Total Score: 0 Smoking Use Have You Smoked or Used Tobacco Products in the Last 30 Days: No Smoking Status: Former smoker Substance History Hx of Prescription Med Misuse Over the Past 12 Months: No Hx of Over the Counter Med Misuse Over the Past 12 Months: No Hx of Inhalent Misuse Over the Past 12 Months: No Hx of Organic Substance Use Over the Past 12 Months: No Hx of Illegal Substances/Street Drug Use Over Past 12 Months: No Problems as a Result of Past Substance Use: None Identified Personal History Living Arrangements: Apartment Living Arrangements Comments: alone in [place] Born In: Grew up locally. Father taught psychology at [employer], mother taught [employer] Employment Status: Disabled Marital Status: Single Beliefs That Will Affect Care: None Current Legal Problems: No Hx Legal Problems: No Hx Traumatic Life Events: Yes Patient History Social History Smoking Status: Former smoker Second Hand Exposure: No; Hx Alcohol Use: No Hx Substance Use: No Preferred Language: Macedonian Communication Ability: Effective Visual Impairment: No Limitations Hearing Ability: Normal Loss Prevention Representative Required: No Beliefs That Will Affect Care: None marital status: Single Current Living Situation: Alone current occupational status: employed How many Children do You have: 0 Feels Safe at Home: Yes Seatbelt Use: always Review of Systems Review of Systems: All systems reviewed & are unremarkable except as noted in Subjective Physical Exam Psychiatric: Orientation: alert Apperance: appropriately dressed Obese, unkempt, appears older than stated age. Eye Contact: + poor eye contact Slow, wide-based, waddling gait, walks with cane. Minimal, monotone, delayed responses. Affect: + depressed affect, + constricted affect and mood congruent with affect Mood: + depressed mood Thought Process: goal directed thought process and + concrete thought process Thought Content: + hopelessness, + worthlessness and + guilt Suicidal Thoughts: + reports suicidal thoughts Homicidal Thoughts: denies homicidal thoughts Hallucinations: + auditory hallucinations; no visual hallucinations Cognition: recent memory grossly intact, attention grossly intact and language grossly intact Estimated Intelligence: + below average estimated intelligence Insight: + limited insight Judgement: + limited judgement Vital Signs (Past 24 Hours): Last Vital Signs Temp 36.6 C 01/04/20 06:00 Pulse 73 01/04/20 06:00 Resp 16 01/04/20 06:00 BP 150/84 H 01/04/20 06:00 Exam Statement: A physical exam was performed on the medical floor prior to admission to the unit by Dr. Juan. I accept that physical as correct/medical clearance for the inpatient physical exam. Results & Data ([facility]) Current Inpatient Medications Current Inpatient Medications: Current Inpatient Medications Acetaminophen (Tylenol) 650 mg PO Q4H PRN PRN Reason: Headache or Minor Fever Stop: 02/02/20 13:44 Al Hydrox/Mg Hydrox/Simethicone (Maalox) 30 ml PO Q4H PRN PRN Reason: GI Upset Stop: 02/02/20 13:44 Atorvastatin Calcium (Lipitor) 20 mg PO [facility] Stop: 02/02/20 21:59 Last Admin: 01/03/20 20:44 Dose: 20 mg Documented by: Bismuth Subsalicylate (Kaopectate) 15 ml PO PRN PRN PRN Reason: Loose Stool Stop: 02/02/20 13:44 Buspirone HCl (Buspar) 5 mg PO TID [facility] Stop: 02/02/20 20:59 Last Admin: 01/03/20 20:45 Dose: 5 mg Documented by: Buspirone HCl (Buspar) 15 mg PO TID [facility] Stop: 02/02/20 20:59 Last Admin: 01/03/20 20:45 Dose: 15 mg Documented by: Clonazepam (Klonopin) 0.5 mg PO BID PRN PRN Reason: anxiety Stop: 02/02/20 17:08 Last Admin: 01/03/20 20:44 Dose: 0.5 mg Documented by: Desmopressin Acetate (Ddavp) 0.2 mg PO [facility] Stop: 02/02/20 21:59 Last Admin: 01/03/20 20:47 Dose: 0.2 mg Documented by: Estradiol (Estrace) 1 mg PO DAILY [facility] Stop: 02/03/20 08:59 Ferrous Sulfate (Feosol) 325 mg PO QAM [facility] Stop: 02/03/20 08:59 Levothyroxine Sodium (Synthroid) 125 mcg PO DAILYBB [facility] Stop: 02/03/20 07:59 Losartan Potassium (Cozaar) 50 mg PO QAM [facility] Stop: 02/03/20 08:59 Lurasidone HCl (Latuda) 80 mg PO DAILYBD [facility] Stop: 02/02/20 17:14 Last Admin: 01/03/20 18:18 Dose: 80 mg Documented by: Magnesium Hydroxide (Milk Of Magnesia) 30 ml PO DAILY PRN PRN Reason: Constipation Stop: 02/02/20 13:44 Magnesium Oxide (Mag-Ox) 400 mg PO BID [facility] Stop: 02/02/20 20:59 Last Admin: 01/03/20 20:46 Dose: 400 mg Documented by: Metformin HCl (Glucophage) 1,000 mg PO BIDM [facility] Stop: 02/02/20 17:44 Last Admin: 01/03/20 18:18 Dose: Not Given Documented by: Montelukast Sodium (Singulair) 10 mg PO HS [facility] Stop: 02/02/20 21:59 Last Admin: 01/03/20 20:47 Dose: 10 mg Documented by: Sodium Chloride ([place] Nasal) 1 - 2 sprays NA PRN PRN PRN Reason: Nasal Dryness/Congestion Stop: 02/02/20 13:44 Trazodone HCl (Desyrel) 100 mg PO HS PRN PRN Reason: Sleep Stop: 02/02/20 17:08 Trimethoprim/Sulfamethoxazole (Septra Ds 800/160mg Tab) 1 tab PO Q12 [facility] Stop: 01/08/20 20:59 Last Admin: 01/03/20 20:46 Dose: 1 tab Documented by: Vitamin D (Vitamin D3) 1,000 units PO QAM [facility] Stop: 02/03/20 08:59
[2020-01-04] MEDS: BusPIRone 15 MG TAB PO SCH ×3 (08:35→21:16)
[2020-01-04] MEDS: estradioL 1 MG TAB PO SCH (08:35)
[2020-01-04] MEDS: LEVOTHYROXINE SODIUM 125 MCG TABLET PO SCH (08:35)
[2020-01-04] MEDS: METFORMIN HCL 500 MG TAB PO SCH ×2 (08:35→17:49)
[2020-01-04] MEDS: MAGNESIUM OXIDE 400 MG TAB PO SCH ×2 (08:36→21:16)
[2020-01-04] MEDS: FERROUS SULFATE 325 MG TAB PO SCH (08:36)
[2020-01-04] MEDS: LOSARTAN POTASSIUM 50 MG TAB PO SCH (08:36)
[2020-01-04] MEDS: SULFAMETHOXAZOLE/TRIMETHOPRIM DS 800/160MG TAB PO SCH ×2 (08:36→21:16)
[2020-01-04] MEDS: CHOLECALCIFEROL 1,000 UNITS 25 MCG TAB PO SCH (08:36)
[2020-01-04] MEDS ORDERED: ESCITALOPRAM OXALATE 20 MG TAB PO SCH (09:00)
[2020-01-04] MEDS: clonazePAM 0.5 MG TAB PO PRN (10:21)
[2020-01-04] MEDS: LURASIDONE HCL 40 MG TAB PO SCH (17:49)
[2020-01-04] MEDS: cloZAPine 100 MG TAB PO SCH (21:17)
[2020-01-04] MEDS: ATORVASTATIN 20 MG TAB PO SCH (21:17)
[2020-01-04] MEDS: DESMOPRESSIN ACETATE 0.1 MG TAB PO SCH (21:18)
[2020-01-04] MEDS: MONTELUKAST SODIUM 10 MG TABLET PO SCH (21:18)
[2020-01-04] MEDS ORDERED: cloZAPine 100 MG TAB PO SCH (22:00)
[2020-01-05] MEDS: LOSARTAN POTASSIUM 50 MG TAB PO SCH (08:33)
[2020-01-05] MEDS: MAGNESIUM OXIDE 400 MG TAB PO SCH ×2 (08:33→21:15)
[2020-01-05] MEDS: LEVOTHYROXINE SODIUM 125 MCG TABLET PO SCH (08:33)
[2020-01-05] MEDS: BusPIRone 15 MG TAB PO SCH ×3 (08:33→21:15)
[2020-01-05] MEDS: SULFAMETHOXAZOLE/TRIMETHOPRIM DS 800/160MG TAB PO SCH ×2 (08:33→21:16)
[2020-01-05] MEDS: METFORMIN HCL 500 MG TAB PO SCH ×2 (08:33→17:50)
[2020-01-05] MEDS: FERROUS SULFATE 325 MG TAB PO SCH (08:33)
[2020-01-05] MEDS: estradioL 1 MG TAB PO SCH (08:33)
[2020-01-05] MEDS: ESCITALOPRAM OXALATE 10 MG TAB PO SCH (08:34)
[2020-01-05] MEDS: CHOLECALCIFEROL 1,000 UNITS 25 MCG TAB PO SCH (08:34)
[2020-01-05] MEDS ORDERED: DULOXETINE HCL 20 MG CAP PO SCH (09:00)
--- NOTE | 2020-01-05 11:45 | Psychiatric Progress Note ---
Date of Service January 05, 2020 Impression / Recommendations Impression 49-year-old single female with a history of severe and persistent mental illness, unemployed on disability, numerous hospitalizations, and multiple episodes of depression yearly who has been decompensating for over a week and presented for voluntary hospitalization, was found to be septic as a result of UTI and initially required several days on the hospitalist service before she could be medically stabilized and transferred to the [facility]. I have been seeing her in the outpatient clinic for years, trying to minimize polypharmacy which has been very challenging as she tends to rely heavily on medications for each symptom and has many medical comorbidities. She has been on clozapine, buspirone, escitalopram, and clonazepam as needed for some time, and during her last hospitalization 2 months ago, she was switched from lamotrigine to lurasidone to target mood. On this admission, she asked about a trial of duloxetine in place of the escitalopram, as she has never been on duloxetine before and her brother is apparently on it. We are in the process of cross titrating. She generally benefits from the daily structure, programming on the unit, and support. Inpatient treatment remains medically necessary due to the severity of symptoms and risk for suicide if discharged prematurely. (1) Schizoaffective disorder, depressive type: 01/03 - Continue home medications including clozapine (monthly CBC w/ diff, last 12/31 - ANC 5.2), lurasidone (just increased to 80mg last week), trazodone 100mg HS prn, and desmopressin. - Patient is requesting a trial of duloxetine to target mood. She has never been on it before, and her brother is apparently on it and has had a good response. We will taper off the citalopram and start duloxetine in its place. Reviewed the risks, benefits, alternatives, and side effects with the patient, and she expressed agreement. She has longstanding polypharmacy and has been very challenging to decrease her medications as she is quite resistant to this and often focuses on medication changes/new meds for all active symptoms. I do think the clozapine is beneficial for her, and given the evidence that it can help reduce suicide, it will be important to continue this medication as long as it is well-tolerated. - Fasting labs for monitoring on an atypical: 09/20/19: FLP normal, glu 119. - Coordinate w/ other OP clinicians/supports. Explore w/ [facility] process of getting diesel engine specialist using waiver services. 01/04 -TSH rechecked today and normal at 1.040. -Continue cross taper from escitalopram to duloxetine, increase duloxetine to 40 mg daily for tomorrow. -Encourage behavioral activation, bathing, clean clothes, out of her room/bed during the day, etc. (2) Anxiety: 01/03 - Continue home doses of buspirone and clonazepam. Have repeatedly attempted to wean off clonazepam which patient has not tolerated well. We have reviewed the risks of chronic benzo use including cognitive impairment, tolerance, addiction, dementia, COMBINATION SAW OPERATOR depression, drug drug interactions, and she feels the benefits of the medication for her severe and persistent anxiety outweigh the risks. 01/04 -getting clonazepam once daily here, would like to reduce to a total of 0.5 mg daily prior to discharge, either once daily or in divided dosing. - (3) Personality disorder: 01/03 - Coordinate w/ OP therapist and other supports. Pt with borderline and dependent traits (4) UTI (urinary tract infection): 01/03 - Complete course of sulfamethoxazole-trimethoprim 800-160 mg bid (01/06). (5) Hypothyroidism: Continue home dose of levothyroxine. TSH slightly low on presentation 12/30 (0.285), but was normal 2 mos prior and has been normal on multiple checks last 2 years. Will repeat tomorrow w/ fT4, as could be contributing to depression if hypothyroid. (6) Asthma: Continue home meds (7) Type 2 diabetes mellitus: Continue metformin and diabetic diet. (8) Hypertension: Continue home dose of losartan (9) Dyslipidemia: Continue home dose of atorvastatin Risk Factors Assessment Male: No : Yes Do You Have Access To A Gun?: No Health Problems: Yes Mental Health Diagnoses: Yes Substance Use Disorders: No Previous Attempt: Yes Family History of Suicide: No Previous Psychiatric Hospitalization: Yes Hopelessness: Yes Smoker: No Protective Factors Assessment Ep[employer]opalian Beliefs: Yes : No Responsible for Young Children: No Employed: No Stable Relationships: Yes Supportive Family: Yes Good Rapport with Provider: Yes Interval History Chief Complaint " Maybe a little bit better". Review of Systems Sleep Information Total Hours of Sleep: 8 Meal Information Percent Meal Consumed - Breakfast: 100 Percent Meal Consumed - Lunch: 100 Percent Meal Consumed - Dinner: 75 Subjective Subjective Patient was seen & assessed and interval progress reviewed with treatment team. Staff report she is attending groups, appears depressed, is not bathing. She is taking medications as prescribed, and has been requesting and receiving clonazepam once daily for the past 2 days. Repeat TSH today was normal 1.040. On my assessment, she has returned to bed midmorning, and states she retreats to bed/sleep as a way to cope. She continues to report depressed mood, low energy and motivation, and high anxiety. She reports ongoing command auditory hallucinations, as well as suicidal thoughts, but they have reduced slightly from admission. She feels safe on the unit, but not outside of the hospital. She has not showered in 2-3 days, and has not changed her clothes since admission. She is willing to agree to go to groups, but is not sure when she will feel up to showering. Physical Exam Psychiatric Orientation: alert and cooperative Obese female lying in bed in no acute distress. Dressed in the same clothes, poor hygiene and grooming, malodorous and unkempt. Limited eye contact, appears tired and frequently closing eyes during the assessment. Motor Behavior: + psychomotor agitation Minimal, monotone Affect: + depressed affect (Entire) and + constricted affect Mood: + depressed mood Thought Process: goal directed thought process and + concrete thought process Thought Content: + hopelessness, + worthlessness and + guilt Suicidal Thoughts: + reports suicidal thoughts Homicidal Thoughts: denies homicidal thoughts Hallucinations: + auditory hallucinations Cognition: recent memory grossly intact, attention grossly intact and language grossly intact Estimated Intelligence: + below average estimated intelligence Insight: + limited insight Judgement: + limited judgement Vital Signs (Past 24 Hours) Last Vital Signs Temp 36.6 C 01/05/20 06:55 Pulse 80 01/05/20 06:55 Resp 18 01/05/20 06:55 BP 140/84 01/05/20 06:55 Results & Data ([facility]) Laboratory Results Laboratory Results - last 24 hr 01/05/20 01/05/20 07:30 07:40 POC Glucose 105 H TSH 1.040 Current Inpatient Medications Current Inpatient Medications: Current Inpatient Medications Acetaminophen (Tylenol) 650 mg PO Q4H PRN PRN Reason: Headache or Minor Fever Stop: 02/02/20 13:44 Last Admin: 01/05/20 06:38 Dose: 650 mg Documented by: Al Hydrox/Mg Hydrox/Simethicone (Maalox) 30 ml PO Q4H PRN PRN Reason: GI Upset Stop: 02/02/20 13:44 Atorvastatin Calcium (Lipitor) 20 mg PO [facility] Stop: 02/02/20 21:59 Last Admin: 01/04/20 21:17 Dose: 20 mg Documented by: Bismuth Subsalicylate (Kaopectate) 15 ml PO PRN PRN PRN Reason: Loose Stool Stop: 02/02/20 13:44 Buspirone HCl (Buspar) 5 mg PO TID [facility] Stop: 02/02/20 20:59 Last Admin: 01/05/20 08:33 Dose: 5 mg Documented by: Buspirone HCl (Buspar) 15 mg PO TID [facility] Stop: 02/02/20 20:59 Last Admin: 01/05/20 08:33 Dose: 15 mg Documented by: Clonazepam (Klonopin) 0.5 mg PO BID PRN PRN Reason: anxiety Stop: 02/02/20 17:08 Last Admin: 01/04/20 10:21 Dose: 0.5 mg Documented by: Clozapine (Clozapine) 250 mg PO [facility] Stop: 02/03/20 21:59 Last Admin: 01/04/20 21:17 Dose: 250 mg Documented by: Desmopressin Acetate (Ddavp) 0.2 mg PO [facility] Stop: 02/02/20 21:59 Last Admin: 01/04/20 21:18 Dose: 0.2 mg Documented by: Duloxetine HCl (Cymbalta) 20 mg PO [facility] Stop: 02/04/20 08:59 Last Admin: 01/05/20 08:33 Dose: 20 mg Documented by: Escitalopram Oxalate (Lexapro Tab) 10 mg PO QAM [facility] Stop: 02/04/20 08:59 Last Admin: 01/05/20 08:34 Dose: 10 mg Documented by: Estradiol (Estrace) 1 mg PO DAILY [facility] Stop: 02/03/20 08:59 Last Admin: 01/05/20 08:33 Dose: 1 mg Documented by: Ferrous Sulfate (Feosol) 325 mg PO QAM [facility] Stop: 02/03/20 08:59 Last Admin: 01/05/20 08:33 Dose: 325 mg Documented by: Levothyroxine Sodium (Synthroid) 125 mcg PO DAILYBB [facility] Stop: 02/03/20 07:59 Last Admin: 01/05/20 08:33 Dose: 125 mcg Documented by: Losartan Potassium (Cozaar) 50 mg PO QAM [facility] Stop: 02/03/20 08:59 Last Admin: 01/05/20 08:33 Dose: 50 mg Documented by: Lurasidone HCl (Latuda) 80 mg PO DAILYBD [facility] Stop: 02/02/20 17:14 Last Admin: 01/04/20 17:49 Dose: 80 mg Documented by: Magnesium Hydroxide (Milk Of Magnesia) 30 ml PO DAILY PRN PRN Reason: Constipation Stop: 02/02/20 13:44 Magnesium Oxide (Mag-Ox) 400 mg PO BID [facility] Stop: 02/02/20 20:59 Last Admin: 01/05/20 08:33 Dose: 400 mg Documented by: Metformin HCl (Glucophage) 1,000 mg PO BIDM [facility] Stop: 02/02/20 17:44 Last Admin: 01/05/20 08:33 Dose: 1,000 mg Documented by: Montelukast Sodium (Singulair) 10 mg PO HS [facility] Stop: 02/02/20 21:59 Last Admin: 01/04/20 21:18 Dose: 10 mg Documented by: Sodium Chloride ([place] Nasal) 1 - 2 sprays NA PRN PRN PRN Reason: Nasal Dryness/Congestion Stop: 02/02/20 13:44 Trazodone HCl (Desyrel) 100 mg PO HS PRN PRN Reason: Sleep Stop: 02/02/20 17:08 Trimethoprim/Sulfamethoxazole (Septra Ds 800/160mg Tab) 1 tab PO Q12 [facility] Stop: 01/08/20 20:59 Last Admin: 01/05/20 08:33 Dose: 1 tab Documented by: Vitamin D (Vitamin D3) 1,000 units PO QAM [facility] Stop: 02/03/20 08:59 Last Admin: 01/05/20 08:34 Dose: 1,000 units Documented by: Mental Health & Subst Abuse Tx Psychiatrist Name of Psychiatrist: Dr. Urbina Psychiatrist's Date of Appointment with Psychiatrist: 01/06/20 Time of Appointment with Psychiatrist: 2:10pm Psychiatric Appointment Comment: [address] [facility] [place], [place] Therapist Name of Therapist: Lamar Miller Therapist's Date of Therapist Appointment: 01/07/20 Time of Therapist Appointment: 2:00pm [facility]ment [facility] [address] [facility] [place] Health Insurance Adjuster Name of Health Insurance Adjuster: Bhavani Galloway Post Discharge Appointments Primary Care Physician Name Of Family Doctor: Dr. 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
[2020-01-05] MEDS: clonazePAM 0.5 MG TAB PO PRN (13:14)
[2020-01-05] MEDS: LURASIDONE HCL 40 MG TAB PO SCH (17:50)
[2020-01-05] MEDS: DESMOPRESSIN ACETATE 0.1 MG TAB PO SCH (21:16)
[2020-01-05] MEDS: cloZAPine 100 MG TAB PO SCH (21:16)
[2020-01-05] MEDS: ATORVASTATIN 20 MG TAB PO SCH (21:17)
[2020-01-05] MEDS: MONTELUKAST SODIUM 10 MG TABLET PO SCH (21:17)
[2020-01-06] MEDS: LOSARTAN POTASSIUM 50 MG TAB PO SCH (08:13)
[2020-01-06] MEDS: MAGNESIUM OXIDE 400 MG TAB PO SCH ×2 (08:13→20:52)
[2020-01-06] MEDS: SULFAMETHOXAZOLE/TRIMETHOPRIM DS 800/160MG TAB PO SCH ×2 (08:13→20:52)
[2020-01-06] MEDS: BusPIRone 15 MG TAB PO SCH ×3 (08:14→20:51)
[2020-01-06] MEDS: FERROUS SULFATE 325 MG TAB PO SCH (08:14)
[2020-01-06] MEDS: estradioL 1 MG TAB PO SCH (08:14)
[2020-01-06] MEDS: ESCITALOPRAM OXALATE 10 MG TAB PO SCH (08:14)
[2020-01-06] MEDS: CHOLECALCIFEROL 1,000 UNITS 25 MCG TAB PO SCH (08:14)
[2020-01-06] MEDS: LEVOTHYROXINE SODIUM 125 MCG TABLET PO SCH (08:14)
[2020-01-06] MEDS: METFORMIN HCL 500 MG TAB PO SCH ×2 (08:45→17:39)
[2020-01-06] MEDS: clonazePAM 0.5 MG TAB PO PRN (08:49)
[2020-01-06] MEDS ORDERED: DULOXETINE HCL 20 MG CAP PO SCH (09:00)
--- NOTE | 2020-01-06 09:43 | Psychiatric Progress Note ---
Date of Service January 06, 2020 Impression / Recommendations Impression 49-year-old single female with a history of severe and persistent mental illness, unemployed on disability, numerous hospitalizations, and multiple episodes of depression yearly who has been decompensating for over a week and presented for voluntary hospitalization, was found to be septic as a result of UTI and initially required several days on the hospitalist service before she could be medically stabilized and transferred to the [facility]. I have been seeing her in the outpatient clinic for years, trying to minimize polypharmacy which has been very challenging as she tends to rely heavily on medications for each symptom and has many medical comorbidities. She has been on clozapine, buspirone, escitalopram, and clonazepam as needed for some time, and during her last hospitalization 2 months ago, she was switched from lamotrigine to lurasidone to target mood. On this admission, she asked about a trial of duloxetine in place of the escitalopram, as she has never been on duloxetine before and her brother is apparently on it. We are in the process of cross titrating. She generally benefits from the daily structure, programming on the unit, and support. Inpatient treatment remains medically necessary due to the severity of symptoms and risk for suicide if discharged prematurely. (1) Schizoaffective disorder, depressive type: 01/03 - Continue home medications including clozapine (monthly CBC w/ diff, last 12/31 - ANC 5.2), lurasidone (just increased to 80mg last week), trazodone 100mg HS prn, and desmopressin. - Patient is requesting a trial of duloxetine to target mood. She has never been on it before, and her brother is apparently on it and has had a good response. We will taper off the citalopram and start duloxetine in its place. Reviewed the risks, benefits, alternatives, and side effects with the patient, and she expressed agreement. She has longstanding polypharmacy and has been very challenging to decrease her medications as she is quite resistant to this and often focuses on medication changes/new meds for all active symptoms. I do think the clozapine is beneficial for her, and given the evidence that it can help reduce suicide, it will be important to continue this medication as long as it is well-tolerated. - Fasting labs for monitoring on an atypical: 09/20/19: FLP normal, glu 119. - Coordinate w/ other OP clinicians/supports. Explore w/ [facility] process of getting chinese instructor using waiver services. 01/04 -TSH rechecked today and normal at 1.040. -Continue cross taper from escitalopram to duloxetine, increase duloxetine to 40 mg daily for tomorrow. -Encourage behavioral activation, bathing, clean clothes, out of her room/bed during the day, etc. 01/05 - Continue cross taper as above: will discontinue escitalopram after this morning's dose and titrate duloxetine to 60mg tomorrow morning. Pt denies side effects and is tolerating medication adjustments thus far - Continue to encourage behavioral activation. Pt did shower last evening and requested that staff continue to gently encourage her in these practices - Meeting with rehabilitation case coordinator tomorrow afternoon (2) Anxiety: 01/03 - Continue home doses of buspirone and clonazepam. Have repeatedly attempted to wean off clonazepam which patient has not tolerated well. We have reviewed the risks of chronic benzo use including cognitive impairment, tolerance, addiction, dementia, REPAIR MECHANIC depression, drug drug interactions, and she feels the benefits of the medication for her severe and persistent anxiety outweigh the risks. 01/04 -getting clonazepam once daily here, would like to reduce to a total of 0.5 mg daily prior to discharge, either once daily or in divided dosing. (3) Personality disorder: 01/03 - Coordinate w/ OP therapist and other supports. Pt with borderline and dependent traits (4) UTI (urinary tract infection): 01/03 - Complete course of sulfamethoxazole-trimethoprim 800-160 mg bid (01/06). (5) Hypothyroidism: Continue home dose of levothyroxine. TSH slightly low on presentation 12/30 (0.285), but was normal 2 mos prior and has been normal on multiple checks last 2 years. Will repeat tomorrow w/ fT4, as could be contributing to depression if hypothyroid. (6) Asthma: Continue home meds (7) Type 2 diabetes mellitus: Continue metformin and diabetic diet. (8) Hypertension: Continue home dose of losartan (9) Dyslipidemia: Continue home dose of atorvastatin Risk Factors Assessment Male: No : Yes Do You Have Access To A Gun?: No Health Problems: Yes Mental Health Diagnoses: Yes Substance Use Disorders: No Previous Attempt: Yes Family History of Suicide: No Previous Psychiatric Hospitalization: Yes Hopelessness: Yes Smoker: No Protective Factors Assessment Alevism Beliefs: Yes : No Responsible for Young Children: No Employed: No Stable Relationships: Yes Supportive Family: Yes Good Rapport with Provider: Yes Interval History Identifying Information HOWIE HSU is a 49-year-old F who currently lives in [place] alone, has a history of schizoaffective disorder depressed type, anxiety, mixed personality disorder, obesity, and numerous previous hospitalizations, and was admitted on 01/03/20 16:43 on a 201 voluntary commitment for depression, SI, and command auditory hallucinations to kill herself. Chief Complaint "Um, still depressed, but a little better." Review of Systems Notes Constitutional: reports some fatigue this morning Cardiovascular: denied Respiratory: denied Gastrointestinal: denied Neurological: denied Psychiatric: denies symptoms other than stated above Total of at least 10 systems reviewed, pertinent positives as above and in HPI. Sleep Information Total Hours of Sleep: 7.25 Meal Information Percent Meal Consumed - Breakfast: 100 Percent Meal Consumed - Lunch: 100 Percent Meal Consumed - Dinner: 95 Subjective Subjective Patient was seen & assessed and interval progress reviewed with nursing and social work. Staff report the patient has appeared fatigued and affect is still very depressed. The patient did report improvement and did shower last evening with encouragement from staff. Meeting scheduled with the patient's case magnus suarez tomorrow afternoon. Pt was seen today to assess progress since admission. Pt reports she is "still depressed, but a little better." Pt denies side effects related to medication cross taper from escitalopram to duloxetine. She admits that she is sleeping well. She is tired, but also admits that she uses sleep and isolation as a coping skill to deal with her depression. Pt recognizes need to work on adding structure to her day. Pt was happy to announce that she showered last evening and is hoping to continue this trend throughout the remainder of her stay. Pt was excited to learn that her rehabilitation case coordinator will be meeting with her tomorrow. Due to limited supports to assist with sustaining stability over the weekend, patient is preparing for a discharge early next week. She admits she is not yet prepared to manage her ongoing symptoms independently, but she does report that things are improving. Pt denied other needs or concerns today. Physical Exam Psychiatric Orientation: alert, oriented x 3 and cooperative Apperance: appropriately dressed, appropriately groomed (showered last evening) and appeared stated age Eye Contact: good eye contact Motor Behavior: no abnormal motor movements (observed while laying in bed) Speech: normal rate/rhythm/volume of speech (monotone) Affect: + depressed affect and + constricted affect Mood: + depressed mood ("still depressed, but a little better") Thought Process: goal directed thought process and + concrete thought process Thought Content: + cognitive distortions (consistent with underlying personality disorder traits), + hopelessness and + worthlessness Suicidal Thoughts: denies suicidal intent; + reports suicidal thoughts (but states SI is now at baseline) Homicidal Thoughts: denies homicidal thoughts Hallucinations: + auditory hallucinations (ongoing hallucinations of patient's grandfather); no visual hallucinations Cognition: recent memory grossly intact, attention grossly intact and language grossly intact Estimated Intelligence: + below average estimated intelligence Insight: + limited insight Judgement: + limited judgement Vital Signs (Past 24 Hours) Last Vital Signs Temp 36.6 C 01/06/20 06:56 Pulse 83 01/06/20 06:58 Resp 18 01/06/20 06:56 BP 131/84 01/06/20 06:58 Results & Data ([facility]) Laboratory Results Laboratory Results - last 24 hr 01/06/20 08:10 POC Glucose 101 H Current Inpatient Medications Current Inpatient Medications: Current Inpatient Medications Acetaminophen (Tylenol) 650 mg PO Q4H PRN PRN Reason: Headache or Minor Fever Stop: 02/02/20 13:44 Last Admin: 01/05/20 06:38 Dose: 650 mg Documented by: Al Hydrox/Mg Hydrox/Simethicone (Maalox) 30 ml PO Q4H PRN PRN Reason: GI Upset Stop: 02/02/20 13:44 Atorvastatin Calcium (Lipitor) 20 mg PO HS [facility] Stop: 02/02/20 21:59 Last Admin: 01/05/20 21:17 Dose: 20 mg Documented by: Bismuth Subsalicylate (Kaopectate) 15 ml PO PRN PRN PRN Reason: Loose Stool Stop: 02/02/20 13:44 Buspirone HCl (Buspar) 5 mg PO TID [facility] Stop: 02/02/20 20:59 Last Admin: 01/06/20 08:14 Dose: 5 mg Documented by: Buspirone HCl (Buspar) 15 mg PO TID [facility] Stop: 02/02/20 20:59 Last Admin: 01/06/20 08:14 Dose: 15 mg Documented by: Clonazepam (Klonopin) 0.5 mg PO BID PRN PRN Reason: anxiety Stop: 02/02/20 17:08 Last Admin: 01/06/20 08:49 Dose: 0.5 mg Documented by: Clozapine (Clozapine) 250 mg PO [facility] Stop: 02/03/20 21:59 Last Admin: 01/05/20 21:16 Dose: 250 mg Documented by: Desmopressin Acetate (Ddavp) 0.2 mg PO HS [facility] Stop: 02/02/20 21:59 Last Admin: 01/05/20 21:16 Dose: 0.2 mg Documented by: Duloxetine HCl (Cymbalta) 40 mg PO [facility] Stop: 02/05/20 08:59 Last Admin: 01/06/20 08:14 Dose: 40 mg Documented by: Escitalopram [facility]al[facility] ([facility]apro Tab) [facility] Stop: 02/04/20 08:59 Last Admin: 01/06/20 08:14 Dose: 10 mg Documented by: Estradiol (Estrace) 1 mg PO DAILY [facility] Stop: 02/03/20 08:59 Last Admin: 01/06/20 08:14 Dose: 1 mg Documented by: Ferrous Sulfate (Feosol) 325 mg PO QAM [facility] Stop: 02/03/20 08:59 Last Admin: 01/06/20 08:14 Dose: 325 mg Documented by: Levothyroxine Sodium (Synthroid) 125 mcg PO DAILYBB [facility] Stop: 02/03/20 07:59 Last Admin: 01/06/20 08:14 Dose: 125 mcg Documented by: Losartan Potassium (Cozaar) 50 mg PO QAM [facility] Stop: 02/03/20 08:59 Last Admin: 01/06/20 08:13 Dose: 50 mg Documented by: Lurasidone HCl (Latuda) 80 mg PO DAILYBD [facility] Stop: 02/02/20 17:14 Last Admin: 01/05/20 17:50 Dose: 80 mg Documented by: Magnesium Hydroxide (Milk Of Magnesia) 30 ml PO DAILY PRN PRN Reason: Constipation Stop: 02/02/20 13:44 Magnesium Oxide (Mag-Ox) 400 mg PO BID [facility] Stop: 02/02/20 20:59 Last Admin: 01/06/20 08:13 Dose: 400 mg Documented by: Metformin HCl (Glucophage) 1,000 mg PO BIDM [facility]SE Stop: 02/02/20 17:44 Last Admin: 01/06/20 08:45 Dose: 1,000 mg Documented by: Montelukast Sodium (Singulair) 10 mg PO HS [facility]SE Stop: 02/02/20 21:59 Last Admin: 01/05/20 21:17 Dose: 10 mg Documented by: Sodium Chloride (Branch Nasal) 1 - 2 sprays NA PRN PRN PRN Reason: Nasal Dryness/Congestion Stop: 02/02/20 13:44 Trazodone HCl (Desyrel) 100 mg PO HS PRN PRN Reason: Sleep Stop: 02/02/20 17:08 Trimethoprim/Sulfamethoxazole (Septra Ds 800/160mg Tab) 1 tab PO Q12 JOSE Stop: 01/08/20 20:59 Last Admin: 01/06/20 08:13 Dose: 1 tab Documented by: Vitamin D (Vitamin D3) 1,000 units PO QAM [facility] Stop: 02/03/20 08:59 Last Admin: 01/06/20 08:14 Dose: 1,000 units Documented by: Mental Health & Subst Abuse Tx Psychiatrist Name of Psychiatrist: Abdulkadir Urbina Psychiatrist's Date of Appointment with Psychiatrist: 01/20/20 Time of Appointment with Psychiatrist: 2:30pm [facility] [place] [facility] Name of Therapist: Qubitia Solutionsebenezer Miller Therapist's Date of Therapist Appointment: 01/14/20 Time of Therapist Appointment: 2:00 pm Therapy App[facility]ment Comment: [address] [facility] [place] Hot Saw Helper Name of Hot Saw Helper: Sheree Galloway Phone Number for Hot Saw Helper: [phone] Case Management Appointment Comment: Will meet with you as discussed Post Discharge Appointments Primary Care Physician Name Of Family Doctor: JESSIE Tam Primary Care Provider Appointment Comment: [id number], [place] [address] Partial or Psych Rehab Name of Partial or Psych Rehab: [facility] - Jose E Date of Appointment at Partial or Psych Rehab: 01/13/20 Time of Appointment at Partial or Psych Rehab: 1:00 p.m. Partial or Psych Rehab Appointment Comment: Will come see you Contact Information Discharge Discharge Address: [address] [place] [address] (1) Type 2 diabetes mellitus Diabetes mellitus complication status: without complication Diabetes mellitus shelter insulin use: without director long term care use Qualified Code(s): E11.9 - Type 2 diabetes mellitus without complications (2) Hypothyroidism Hypothyroidism type: unspecified Qualified Code(s): E03.9 - Hypothyroidism, unspecified (3) Hypertension Hypertension type: essential hypertension Qualified Code(s): I10 - Essential (primary) hypertension (4) Asthma Asthma complication type: uncomplicated Asthma persistence: unspecified Asthma severity: unspecified severity Qualified Code(s): J45.909 - Unspecified asthma, uncomplicated
[2020-01-06] MEDS: LURASIDONE HCL 40 MG TAB PO SCH (17:38)
[2020-01-06] MEDS: MONTELUKAST SODIUM 10 MG TABLET PO SCH (20:51)
[2020-01-06] MEDS: DESMOPRESSIN ACETATE 0.1 MG TAB PO SCH (20:51)
[2020-01-06] MEDS: ATORVASTATIN 20 MG TAB PO SCH (20:52)
[2020-01-06] MEDS: cloZAPine 100 MG TAB PO SCH (20:52)
[2020-01-07] MEDS: LEVOTHYROXINE SODIUM 125 MCG TABLET PO SCH (08:25)
[2020-01-07] MEDS: MAGNESIUM OXIDE 400 MG TAB PO SCH ×2 (08:47→20:37)
[2020-01-07] MEDS: LOSARTAN POTASSIUM 50 MG TAB PO SCH (08:47)
[2020-01-07] MEDS: estradioL 1 MG TAB PO SCH (08:47)
[2020-01-07] MEDS: SULFAMETHOXAZOLE/TRIMETHOPRIM DS 800/160MG TAB PO SCH ×2 (08:47→20:37)
[2020-01-07] MEDS: BusPIRone 15 MG TAB PO SCH ×3 (08:47→20:37)
[2020-01-07] MEDS: FERROUS SULFATE 325 MG TAB PO SCH (08:47)
[2020-01-07] MEDS: METFORMIN HCL 500 MG TAB PO SCH ×2 (08:47→17:12)
[2020-01-07] MEDS: DULOXETINE HCL 60 MG CAP PO SCH (08:47)
[2020-01-07] MEDS: CHOLECALCIFEROL 1,000 UNITS 25 MCG TAB PO SCH (08:48)
[2020-01-07] MEDS: clonazePAM 0.5 MG TAB PO PRN (12:29)
--- NOTE | 2020-01-07 12:57 | Psychiatric Progress Note ---
Date of Service January 07, 2020 Impression / Recommendations Impression 49-year-old single female with a history of severe and persistent mental illness, unemployed on disability, numerous hospitalizations, and multiple episodes of depression yearly who has been decompensating for over a week and presented for voluntary hospitalization, was found to be septic as a result of UTI and initially required several days on the hospitalist service before she could be medically stabilized and transferred to the [facility]. I have been seeing her in the outpatient clinic for years, trying to minimize polypharmacy which has been very challenging as she tends to rely heavily on medications for each symptom and has many medical comorbidities. She has been on clozapine, buspirone, escitalopram, and clonazepam as needed for some time, and during her last hospitalization 2 months ago, she was switched from lamotrigine to lurasidone to target mood. On this admission, she asked about a trial of duloxetine in place of the escitalopram, as she has never been on duloxetine before and her brother is apparently on it. We are in the process of cross titrating. She generally benefits from the daily structure, programming on the unit, and support. Inpatient treatment remains medically necessary due to the severity of symptoms and risk for suicide if discharged prematurely. (1) Schizoaffective disorder, depressive type: 01/03 - Continue home medications including clozapine (monthly CBC w/ diff, last 12/31 - ANC 5.2), lurasidone (just increased to 80mg last week), trazodone 100mg HS prn, and desmopressin. - Patient is requesting a trial of duloxetine to target mood. She has never been on it before, and her brother is apparently on it and has had a good response. We will taper off the citalopram and start duloxetine in its place. Reviewed the risks, benefits, alternatives, and side effects with the patient, and she expressed agreement. She has longstanding polypharmacy and has been very challenging to decrease her medications as she is quite resistant to this and often focuses on medication changes/new meds for all active symptoms. I do think the clozapine is beneficial for her, and given the evidence that it can help reduce suicide, it will be important to continue this medication as long as it is well-tolerated. - Fasting labs for monitoring on an atypical: 09/20/19: FLP normal, glu 119. - Coordinate w/ other OP clinicians/supports. Explore w/ [facility] process of getting physical instructor using waiver services. 01/04 -TSH rechecked today and normal at 1.040. -Continue cross taper from escitalopram to duloxetine, increase duloxetine to 40 mg daily for tomorrow. -Encourage behavioral activation, bathing, clean clothes, out of her room/bed during the day, etc. 01/05 - Continue cross taper as above: will discontinue escitalopram after this morning's dose and titrate duloxetine to 60mg tomorrow morning. Pt denies side effects and is tolerating medication adjustments thus far - Continue to encourage behavioral activation. Pt did shower last evening and requested that staff continue to gently encourage her in these practices - Meeting with counseling case manager tomorrow afternoon 01/06 - Continue current medication regimen. Pt is no longer taking escitalopram and duloxetine has been titrated to 60mg daily - consider continued titration as tolerated - Continue to encourage behavioral activation, use of healthy coping strategies, and adherence to a routine when discharged - Meeting with counseling case manager this afternoon (2) Anxiety: 01/03 - Continue home doses of buspirone and clonazepam. Have repeatedly attempted to wean off clonazepam which patient has not tolerated well. We have reviewed the risks of chronic benzo use including cognitive impairment, tolerance, addiction, dementia, BUGG[employer] LO[employer]ER depression, drug drug interactions, and she feels the benefits of the medication for her severe and persistent anxiety outweigh the risks. 01/04 -getting clonazepam once daily here, would like to reduce to a total of 0.5 mg daily prior to discharge, either once daily or in divided dosing. 01/06 - Discussed this above plan with patient. Since patient was actively reporting anxiety, she was not willing to reduce dosage today. Agree with above plan to either lower BID doses or offer only once daily. (3) Personality disorder: 01/03 - Coordinate w/ OP therapist and other supports. Pt with borderline and dependent traits (4) UTI (urinary tract infection): 01/03 - Complete course of sulfamethoxazole-trimethoprim 800-160 mg bid (01/06). (5) Hypothyroidism: Continue home dose of levothyroxine. TSH slightly low on presentation 12/30 (0.285), but was normal 2 mos prior and has been normal on multiple checks last 2 years. Will repeat tomorrow w/ fT4, as could be contributing to depression if hypothyroid. (6) Asthma: Continue home meds (7) Type 2 diabetes mellitus: Continue metformin and diabetic diet. (8) Hypertension: Continue home dose of losartan (9) Dyslipidemia: Continue home dose of atorvastatin Risk Factors Assessment Male: No : Yes Do You Have Access To A Gun?: No Health Problems: Yes Mental Health Diagnoses: Yes Substance Use Disorders: No Previous Attempt: Yes Family History of Suicide: No Previous Psychiatric Hospitalization: Yes Hopelessness: Yes Smoker: No Protective Factors Assessment Nondenominational Beliefs: Yes : No Responsible for Young Children: No Employed: No Stable Relationships: Yes Supportive Family: Yes Good Rapport with Provider: Yes Interval History Identifying Information HOWIE HSU is a 49-year-old F who currently lives in [place] alone, has a history of schizoaffective disorder depressed type, anxiety, mixed personality disorder, obesity, and numerous previous hospitalizations, and was admitted on 01/03/20 16:43 on a 201 voluntary commitment for depression, SI, and command auditory hallucinations to kill herself. Chief Complaint "Um, a tad better today. I'm feeling a lot of anxiety right now though." Review of Systems Notes Constitutional: reports disrupted sleep as she was awoken for a room change last evening, but went back to sleep quickly Cardiovascular: denied Respiratory: denied Gastrointestinal: denied Neurological: denied Psychiatric: denies symptoms other than stated above Total of at least 10 systems reviewed, pertinent positives as above and in HPI. Sleep Information Total Hours of Sleep: 6 Sleep Comments: awakened to be moved to another room-she was given time to awaken and to have stable gait when OOB Meal Information Percent Meal Consumed - Breakfast: 100 Percent Meal Consumed - Lunch: 100 Percent Meal Consumed - Dinner: 100 Subjective Subjective Patient was seen & assessed and interval progress reviewed with treatment team. Staff report the patient has been cooperative and has been attending group programming with encouragement. Pt rated her mood a "3.5/10" and "depressed" last evening, but has been reporting slow improvement. Pt has a meeting with her counseling case manager this afternoon. Pt was seen today to assess progress since admission. Pt states she is "a tad better today. I'm feeling a lot of anxiety right now though." Pt then requests a prn clonazepam. Pt was asked to consider what coping skills may be helpful in this moment to assist with anxiety. She is at least able to discuss coping strategies, but feels they will not be sufficient alone. Pt agreed to pair her dose of clonazepam with listening to the radio. She admits that she is still feeling depressed, but her mood has gradually improved over the course of her admission thus far. Pt states that she shared with her brother that she would like to quit her job at [employer]. Pt states she was encourage to not make any decisions at this time, which she agreed was appropriate. Pt denied SI presently, but does not yet feel safe to leave the hospital setting. She is hoping for discharge on 01/09 in order to have more available outpatient support after the weekend. Pt denied other needs or concerns today. Physical Exam Psychiatric Orientation: alert, oriented x 3 and cooperative Apperance: appropriately dressed (casually, wearing a t-shirt and leggings), appropriately groomed (consistently showering) and appeared stated age Eye Contact: + fair eye contact Motor Behavior: steady gait and station (slow, cautious ambulation with assistance from a cane) and no abnormal motor movements Speech: normal rate/rhythm/volume of speech (monotone) Affect: + depressed affect and + constricted affect Mood: + depressed mood and + anxious mood Thought Process: goal directed thought process and + concrete thought process Thought Content: reality based without delusions; not paranoid Suicidal Thoughts: denies suicidal thoughts Homicidal Thoughts: denies homicidal thoughts Hallucinations: no auditory hallucinations (denied hallucinations presently; intermittently hears grandfather's voice) and no visual hallucinations Cognition: attention grossly intact and language grossly intact Insight: + limited insight Judgement: + limited judgement Vital Signs (Past 24 Hours) Last Vital Signs Temp 36.4 C L 01/07/20 07:01 Pulse 87 01/07/20 07:01 Resp 18 01/07/20 07:01 BP 135/102 H 01/07/20 07:01 Results & Data ([facility]) Current Inpatient Medications Current Inpatient Medications: Current Inpatient Medications Acetaminophen (Tylenol) 650 mg PO Q4H PRN PRN Reason: Headache or Minor Fever Stop: 02/02/20 13:44 Last Admin: 01/05/20 06:38 Dose: 650 mg Documented by: Al Hydrox/Mg Hydrox/Simethicone (Maalox) 30 ml PO Q4H PRN PRN Reason: GI Upset Stop: 02/02/20 13:44 Atorvastatin Calcium (Lipitor) 20 mg PO HS [facility] Stop: 02/02/20 21:59 Last Admin: 01/06/20 20:52 Dose: 20 mg Documented by: Bismuth Subsalicylate (Kaopectate) 15 ml PO PRN PRN PRN Reason: Loose Stool Stop: 02/02/20 13:44 Buspirone HCl (Buspar) 5 mg PO TID [facility] Stop: 02/02/20 20:59 Last Admin: 01/07/20 08:46 Dose: 5 mg Documented by: Buspirone HCl (Buspar) 15 mg PO TID [facility] Stop: 02/02/20 20:59 Last Admin: 01/07/20 08:47 Dose: 15 mg Documented by: Clonazepam (Klonopin) 0.5 mg PO BID PRN PRN Reason: anxiety Stop: 02/02/20 17:08 Last Admin: 01/07/20 12:29 Dose: 0.5 mg Documented by: Clozapine (Clozapine) 250 mg PO [facility] Stop: 02/03/20 21:59 Last Admin: 01/06/20 20:52 Dose: 250 mg Documented by: Desmopressin Acetate (Ddavp) 0.2 mg PO [facility] Stop: 02/02/20 21:59 Last Admin: 01/06/20 20:51 Dose: 0.2 mg Documented by: Duloxetine HCl (Cymbalta) 60 mg PO QAM [facility] Stop: 02/06/20 08:59 Last Admin: 01/07/20 08:47 Dose: 60 mg Documented by: Estradiol (Estrace) 1 mg PO DAILY [facility] Stop: 02/03/20 08:59 Last Admin: 01/07/20 08:47 Dose: 1 mg Documented by: Ferrous Sulfate (Feosol) 325 mg PO QAM [facility] Stop: 02/03/20 08:59 Last Admin: 01/07/20 08:47 Dose: 325 mg Documented by: Levothyroxine Sodium (Synthroid) 125 mcg PO DAILYPSYCHIATRIC Stop: 02/03/20 07:59 Last Admin: 01/07/20 08:25 Dose: 125 mcg Documented by: Losartan Potassium (Cozaar) 50 mg PO QAM [facility] Stop: 02/03/20 08:59 Last Admin: 01/07/20 08:47 Dose: 50 mg Documented by: Lurasidone HCl (Latuda) 80 mg PO DAILYBD JOSE Stop: 02/02/20 17:14 Last Admin: 01/06/20 17:38 Dose: 80 mg Documented by: Magnesium Hydroxide (Milk Of Magnesia) 30 ml PO DAILY PRN PRN Reason: Constipation Stop: 02/02/20 13:44 Magnesium Oxide (Mag-Ox) 400 mg PO BID JOSE Stop: 02/02/20 20:59 Last Admin: 01/07/20 08:47 Dose: 400 mg Documented by: Metformin HCl (Glucophage) 1,000 mg PO BIDM JOSE Stop: 02/02/20 17:44 Last Admin: 01/07/20 08:47 Dose: 1,000 mg Documented by: Montelukast Sodium (Singulair) 10 mg PO HS JOSE Stop: 02/02/20 21:59 Last Admin: 01/06/20 20:51 Dose: 10 mg Documented by: Sodium Chloride (Trinity Nasal) 1 - 2 sprays NA PRN PRN PRN Reason: Nasal Dryness/Congestion Stop: 02/02/20 13:44 Trazodone HCl (Desyrel) 100 mg PO HS PRN PRN Reason: Sleep Stop: 02/02/20 17:08 Trimethoprim/Sulfamethoxazole (Septra Ds 800/160mg Tab) 1 tab PO Q12 [facility] Stop: 01/08/20 20:59 Last Admin: 01/07/20 08:47 Dose: 1 tab Documented by: Vitamin D (Vitamin D3) 1,000 units PO QAM [facility] Stop: 02/03/20 08:59 Last Admin: 01/07/20 08:48 Dose: 1,000 units Documented by: Mental Health & Subst Abuse Tx Psychiatrist Name of Psychiatrist: Abdulkadir Urbina Psychiatrist's Date of Appointment with Psychiatrist: 01/20/20 Time of Appointment with Psychiatrist: 2:30pm Psychiatric Appointment Comment: [address] [place], [place] Therapist Name of Therapist: Abdulkadir Miller Therapist's Date of Therapist Appointment: 01/14/20 Time of Therapist Appointment: 2:00 pm Therapy Appointment Comment: [address] [place], [place] Boiler House Operator Name of Boiler House Operator: Sheree Galloway Phone Number for Boiler House Operator: [phone] Case Management Appointment Comment: Will meet with you as discussed Post Discharge Appointments Primary Care Physician Name Of Family Doctor: JESSIE Tam Primary Care Provider Appointment Comment: [id number], [place] [address] Partial or Psych Rehab Name of Partial or Psych Rehab: [facility] - Jose E Date of Appointment at Partial or Psych Rehab: 01/13/20 Time of Appointment at Partial or Psych Rehab: 1:00 p.m. Partial or Psych Rehab Appointment Comment: Will come see you Contact Information Discharge Discharge Address: [address] [place] [address], [facility] [address], [place] [address] (1) Hypothyroidism Hypothyroidism type: unspecified Qualified Code(s): E03.9 - Hypothyroidism, unspecified (2) Asthma Asthma severity: unspecified severity Asthma persistence: unspecified Asthma complication type: uncomplicated Qualified Code(s): J45.909 - Unspecified asthma, uncomplicated (3) Type 2 diabetes mellitus Diabetes mellitus [facility] insulin use: without intermediate project manager use Diabetes mellitus complication status: without complication Qualified Code(s): E11.9 - Type 2 diabetes mellitus without complications (4) Hypertension Hypertension type: essential hypertension Qualified Code(s): I10 - Essential (primary) hypertension
[2020-01-07] MEDS: LURASIDONE HCL 40 MG TAB PO SCH (17:12)
[2020-01-07] MEDS: cloZAPine 100 MG TAB PO SCH (20:38)
[2020-01-07] MEDS: MONTELUKAST SODIUM 10 MG TABLET PO SCH (20:39)
[2020-01-07] MEDS: DESMOPRESSIN ACETATE 0.1 MG TAB PO SCH (20:39)
[2020-01-07] MEDS: ATORVASTATIN 20 MG TAB PO SCH (20:40)
[2020-01-08 07:40] LABS: Hematocrit (blood only) 32.5 % (37-47); Hemoglobin 10.6 g/dL (12.0-16.0); Immature Granulocytes # (auto) 0.01 K/uL (0.00-0.02); Immature Granulocytes % (auto) 0.1 %; Lymphocytes % (auto) 34.5 %; Mean Corpuscular Hemoglobin 25.1 pg (25-34); Mean Corpuscular Hgb Conc 32.6 g/dL (32-36); Mean Corpuscular Volume 76.8 fL (80-100); Mean Platelet Volume 8.9 fL (7.4-10.4); Monocytes # (auto) 0.56 K/uL (0.11-0.59); Monocytes % (auto) 7.7 %; Neutrophils # (auto) 4.17 K/uL (1.4-6.5); Neutrophils % (auto) 57.7 %; Platelet Count 257 K/uL (130-400); RDW Coefficient of Variation 14.8 % (11.5-14.5); RDW Standard Deviation 41.6 fL (36.4-46.3); Red Blood Count 4.23 M/uL (4.2-5.4); White Blood Count 7.24 K/uL (4.8-10.8)
[2020-01-08] MEDS: SULFAMETHOXAZOLE/TRIMETHOPRIM DS 800/160MG TAB PO SCH (08:47)
[2020-01-08] MEDS: MAGNESIUM OXIDE 400 MG TAB PO SCH ×2 (08:47→20:50)
[2020-01-08] MEDS: METFORMIN HCL 500 MG TAB PO SCH ×2 (08:47→17:16)
[2020-01-08] MEDS: LOSARTAN POTASSIUM 50 MG TAB PO SCH (08:47)
[2020-01-08] MEDS: estradioL 1 MG TAB PO SCH (08:47)
[2020-01-08] MEDS: FERROUS SULFATE 325 MG TAB PO SCH (08:47)
[2020-01-08] MEDS: DULOXETINE HCL 60 MG CAP PO SCH (08:48)
[2020-01-08] MEDS: CHOLECALCIFEROL 1,000 UNITS 25 MCG TAB PO SCH (08:48)
[2020-01-08] MEDS: BusPIRone 15 MG TAB PO SCH ×3 (08:48→20:50)
[2020-01-08] MEDS: LEVOTHYROXINE SODIUM 125 MCG TABLET PO SCH (08:48)
[2020-01-08] MEDS: clonazePAM 0.5 MG TAB PO PRN (10:59)
[2020-01-08] MEDS: DULOXETINE HCL 30 MG CAP PO SCH (11:23)
--- NOTE | 2020-01-08 14:34 | Psychiatric Progress Note ---
Date of Service January 08, 2020 Impression / Recommendations Impression 49-year-old single female with a history of severe and persistent mental illness, unemployed on disability, numerous hospitalizations, and multiple episodes of depression yearly who has been decompensating for over a week and presented for voluntary hospitalization, was found to be septic as a result of UTI and initially required several days on the hospitalist service before she could be medically stabilized and transferred to the [facility]. I have been seeing her in the outpatient clinic for years, trying to minimize polypharmacy which has been very challenging as she tends to rely heavily on medications for each symptom and has many medical comorbidities. She has been on clozapine, buspirone, escitalopram, and clonazepam as needed for some time, and during her last hospitalization 2 months ago, she was switched from lamotrigine to lurasidone to target mood. On this admission, she asked about a trial of duloxetine in place of the escitalopram, as she has never been on duloxetine before and her brother is apparently on it. We are in the process of cross titrating. She generally benefits from the daily structure, programming on the unit, and support. Inpatient treatment remains medically necessary due to the severity of symptoms and risk for suicide if discharged prematurely. (1) Schizoaffective disorder, depressive type: 01/03 - Continue home medications including clozapine (monthly CBC w/ diff, last 12/31 - ANC 5.2), lurasidone (just increased to 80mg last week), trazodone 100mg HS prn, and desmopressin. - Patient is requesting a trial of duloxetine to target mood. She has never been on it before, and her brother is apparently on it and has had a good response. We will taper off the citalopram and start duloxetine in its place. Reviewed the risks, benefits, alternatives, and side effects with the patient, and she expressed agreement. She has longstanding polypharmacy and has been very challenging to decrease her medications as she is quite resistant to this and often focuses on medication changes/new meds for all active symptoms. I do think the clozapine is beneficial for her, and given the evidence that it can help reduce suicide, it will be important to continue this medication as long as it is well-tolerated. - Fasting labs for monitoring on an atypical: 09/20/19: FLP normal, glu 119. - Coordinate w/ other OP clinicians/supports. Explore w/ [facility] process of getting pin chaser using waiver services. 01/04 -TSH rechecked today and normal at 1.040. -Continue cross taper from escitalopram to duloxetine, increase duloxetine to 40 mg daily for tomorrow. -Encourage behavioral activation, bathing, clean clothes, out of her room/bed during the day, etc. 01/05 - Continue cross taper as above: will discontinue escitalopram after this morning's dose and titrate duloxetine to 60mg tomorrow morning. Pt denies side effects and is tolerating medication adjustments thus far - Continue to encourage behavioral activation. Pt did shower last evening and requested that staff continue to gently encourage her in these practices - Meeting with manager case management tomorrow afternoon 01/06 - Continue current medication regimen. Pt is no longer taking escitalopram and duloxetine has been titrated to 60mg daily - consider continued titration as tolerated - Continue to encourage behavioral activation, use of healthy coping strategies, and adherence to a routine when discharged - Meeting with manager case management this afternoon 01/07 raised duloxetine to 90mg a day after review maintained other aspects of treatment plan unchanged, 16+ minutes of supportive psychotherapy tied to impact of covid 19 situation on aspects of her treatment plan, including virtual appts and times of cancelled rides or cancelled shifts at [employer], and having to wear a mask. addressed recent of her best friend. (2) Anxiety: 01/03 - Continue home doses of buspirone and clonazepam. Have repeatedly attempted to wean off clonazepam which patient has not tolerated well. We have reviewed the risks of chronic benzo use including cognitive impairment, tolerance, addiction, dementia, [employer] depression, drug drug interactions, and she feels the benefits of the medication for her severe and persistent anxiety outweigh the risks. 01/04 -getting clonazepam once daily here, would like to reduce to a total of 0.5 mg daily prior to discharge, either once daily or in divided dosing. 01/06 - Discussed this above plan with patient. Since patient was actively reporting anxiety, she was not willing to reduce dosage today. Agree with above plan to either lower BID doses or offer only once daily. (3) Personality disorder: 01/03 - Coordinate w/ OP therapist and other supports. Pt with borderline and dependent traits (4) UTI (urinary tract infection): 01/03 - Complete course of sulfamethoxazole-trimethoprim 800-160 mg bid (01/06). (5) Hypothyroidism: Continue home dose of levothyroxine. TSH slightly low on presentation 12/30 (0.285), but was normal 2 mos prior and has been normal on multiple checks last 2 years. Will repeat tomorrow w/ fT4, as could be contributing to depression if hypothyroid. (6) Asthma: Continue home meds (7) Type 2 diabetes mellitus: Continue metformin and diabetic diet. (8) Hypertension: Continue home dose of losartan (9) Dyslipidemia: Continue home dose of atorvastatin Risk Factors Assessment Male: No : Yes Do You Have Access To A Gun?: No Health Problems: Yes Mental Health Diagnoses: Yes Substance Use Disorders: No Previous Attempt: Yes Family History of Suicide: No Previous Psychiatric Hospitalization: Yes Hopelessness: Yes Smoker: No Protective Factors Assessment Buddhism Beliefs: Yes : No Responsible for Young Children: No Employed: No Stable Relationships: Yes Supportive Family: Yes Good Rapport with Provider: Yes Interval History Identifying Information HOWIE HSU is a 49-year-old F who currently lives in [place] alone, has a history of schizoaffective disorder depressed type, anxiety, mixed personality disorder, obesity, and numerous previous hospitalizations, and was admitted on 01/03/20 16:43 on a 201 voluntary commitment for depression, SI, and command auditory hallucinations to kill herself. Chief Complaint "feeling that would be ready for discharge on Friday and hoping to raise cymbalta to 90mg a day ". Review of Systems Sleep Information Total Hours of Sleep: 8 Sleep Comments: awakened to be moved to another room-she was given time to awaken and to have stable gait when OOB Meal Information Percent Meal Consumed - Breakfast: 100 Percent Meal Consumed - Lunch: 100 Percent Meal Consumed - Dinner: 100 Subjective Subjective Patient was seen & assessed and interval progress reviewed with nursing and social work. Pt inquired about raising cymbalta to 90mg a day to more fully alleivate her anxiety and depressive symptoms as feels she is toelraitng cymbalta well. Her AH ahs lowered down to a more baseline level of intensity of the degartory comments and comments that should hurt herself (soudns like her Grandfather). She indicates that her AH never go away even breifly and that at the current level of symptoms she finds managable and toelrable. She shared how the recent of her best friend has been hard for her. She has been finding the COVID 19 situation and the impact it has been having on her services as hard for her. She is wary about attending her weekly shifts at [employer] due to her apprenhension about wearing a mask during the shift and other apsects of how [employer] and her transportation has been impacted by the COVID 19 situation. She plans to go next friday to [employer] to see how it is and decide from there if will continue going to [email or web address]. Physical Exam Psychiatric Orientation: alert, oriented x 3 and cooperative Apperance: appropriately dressed (casually, wearing a t-shirt and leggings), appropriately groomed (consistently showering) and appeared stated age Eye Contact: good eye contact Motor Behavior: steady gait and station (slow, cautious ambulation with mauro tance from a cane) and no abnormal motor movements Speech: normal rate/rhythm/volume of speech (monotone) Affect: + constricted affect and mood congruent with affect Mood: + anxious mood Thought Process: goal directed thought process and + concrete thought process Thought Content: + cognitive distortions (consistent with underlying personality disorder traits) and reality based without delusions; not paranoid Suicidal Thoughts: denies suicidal thoughts and denies suicidal intent Homicidal Thoughts: denies homicidal thoughts Hallucinations: + auditory hallucinations (denied hallucinations presently; intermittently hears grandfather's voice); no visual hallucinations Cognition: recent memory grossly intact, attention grossly intact and language grossly intact Estimated Intelligence: + below average estimated intelligence Insight: + limited insight Judgement: + fair judgement Vital Signs (Past 24 Hours) Last Vital Signs Temp 36.6 C 01/08/20 06:44 Pulse 78 01/08/20 06:44 Resp 18 01/08/20 06:44 BP 133/83 01/08/20 06:44 Results & Data ([facility]) Laboratory Results Laboratory Results - last 24 hr 01/08/20 01/08/20 07:24 08:23 WBC 7.24 RBC 4.23 Hgb 10.6 L Hct 32.5 L MCV 76.8 L MCH 25.1 MCHC 32.6 RDW Std Deviation 41.6 RDW Coeff of Bret 14.8 H Plt Count 257 MPV 8.9 Immature Gran % (Auto) 0.1 Neut % (Auto) 57.7 Lymph % (Auto) 34.5 [place] % (Auto) 7.7 Eos % (Auto) 0.0 Baso % (Auto) 0.0 Neut # (Auto) 4.17 Lymph # (Auto) 2.50 [place] # (Auto) 0.56 Eos # (Auto) 0.00 Baso # (Auto) 0.00 Immature Gran # (Auto) 0.01 POC Glucose 124 H Current Inpatient Medications Current Inpatient Medications: Current Inpatient Medications Acetaminophen (Tylenol) 650 mg PO Q4H PRN PRN Reason: Headache or Minor Fever Stop: 02/02/20 13:44 Last Admin: 01/05/20 06:38 Dose: 650 mg Documented by: Al Hydrox/Mg Hydrox/Simethicone (Maalox) 30 ml PO Q4H PRN PRN Reason: GI Upset Stop: 02/02/20 13:44 Atorvastatin Calcium (Lipitor) 20 mg PO [facility] Stop: 02/02/20 21:59 Last Admin: 01/07/20 20:40 Dose: 20 mg Documented by: Bismuth Subsalicylate (Kaopectate) 15 ml PO PRN PRN PRN Reason: Loose Stool Stop: 02/02/20 13:44 Buspirone HCl (Buspar) 5 mg PO [facility] Stop: 02/02/20 20:59 Last Admin: 01/08/20 14:20 Dose: 5 mg Documented by: Buspirone HCl (Buspar) 15 mg PO TID [facility] Stop: 02/02/20 20:59 Last Admin: 01/08/20 14:20 Dose: 15 mg Documented by: Clonazepam (Klonopin) 0.5 mg PO BID PRN PRN Reason: anxiety Stop: 02/02/20 17:08 Last Admin: 01/08/20 10:59 Dose: 0.5 mg Documented by: Clozapine (Clozapine) 250 mg PO [facility] Stop: 02/03/20 21:59 Last Admin: 01/07/20 20:38 Dose: 250 mg Documented by: Desmopressin Acetate (Ddavp) 0.2 mg PO [facility] Stop: 02/02/20 21:59 Last Admin: 01/07/20 20:39 Dose: 0.2 mg Documented by: Duloxetine HCl (Cymbalta) [facility] Stop: 02/06/20 08:59 Last Admin: 01/08/20 08:48 Dose: 60 mg Documented by: Duloxetine HCl (Cymbalta) 30 mg PO QAM [facility] Stop: 02/07/20 10:59 Last Admin: 01/08/20 11:23 Dose: 30 mg Documented by: Estradiol (Estrace) 1 mg PO DAILY [facility] Stop: 02/03/20 08:59 Last Admin: 01/08/20 08:47 Dose: 1 mg Documented by: Ferrous Sulfate (Feosol) 325 mg PO QAM [facility] Stop: 02/03/20 08:59 Last Admin: 01/08/20 08:47 Dose: 325 mg Documented by: Levothyroxine Sodium (Synthroid) 125 mcg PO DAILYBB [facility] Stop: 02/03/20 07:59 Last Admin: 01/08/20 08:48 Dose: 125 mcg Documented by: Losartan Potassium (Cozaar) 50 mg PO QAM [facility] Stop: 02/03/20 08:59 Last Admin: 01/08/20 08:47 Dose: 50 mg Documented by: Lurasidone HCl (Latuda) 80 mg PO DAILYBD [facility] Stop: 02/02/20 17:14 Last Admin: 01/07/20 17:12 Dose: 80 mg Documented by: Magnesium Hydroxide (Milk Of Magnesia) 30 ml PO DAILY PRN PRN Reason: Constipation Stop: 02/02/20 13:44 Magnesium Oxide (Mag-Ox) 400 mg PO BID [facility] Stop: 02/02/20 20:59 Last Admin: 01/08/20 08:47 Dose: 400 mg Documented by: Metformin HCl (Glucophage) 1,000 mg PO BIDM [facility] Stop: 02/02/20 17:44 Last Admin: 01/08/20 08:47 Dose: 1,000 mg Documented by: Montelukast Sodium (Singulair) 10 mg PO HS [facility] Stop: 02/02/20 21:59 Last Admin: 01/07/20 20:39 Dose: 10 mg Documented by: Sodium Chloride ([place] Nasal) 1 - 2 sprays NA PRN PRN PRN Reason: Nasal Dryness/Congestion Stop: 02/02/20 13:44 Trazodone HCl (Desyrel) 100 mg PO HS PRN PRN Reason: Sleep Stop: 02/02/20 17:08 Trimethoprim/Sulfamethoxazole (Septra Ds 800/160mg Tab) 1 tab PO Q12 JO[facility] Stop: 01/08/20 20:59 Last Admin: 01/08/20 08:47 Dose: 1 tab Documented by: Vitamin D (Vitamin D3) 1,000 units PO QAM [facility] Stop: 02/03/20 08:59 Last Admin: 01/08/20 08:48 Dose: 1,000 units Documented by: Mental Health & Subst Abuse Tx Psychiatrist Name of Psychiatrist: Abdulkadir Urbina Psychiatrist's Date of Appointment with Psychiatrist: 01/20/20 Time of Appointment with Psychiatrist: 2:30pm Psychiatric Appointment Comment: [address] [facility] [address] [facility] [place] Therapist Name of Therapist: Abdulkadir Miller Therapist's Date of Therapist Appointment: 01/14/20 Time of Therapist Appointment: 2:00 pm Therapy Appointment Comment: [address] [facility] [place] Cleaning And Maintenance Worker Name of Cleaning And Maintenance Worker: Sheree Galloway Phone Number for Cleaning And Maintenance Worker: [phone] Date of Appointment with Cleaning And Maintenance Worker: 01/10/20 Time of Appointment with Cleaning And Maintenance Worker: 3:00 p.m. Case Management Appointment Comment: Will meet you at your apartment Post Discharge Appointments Primary Care Physician Name Of Family Doctor: JESSIE Tam Primary Care Time of Appointment with PCP: Follow up as scheduled Provider Appointment Comment: [id number], [place] [address] Partial or Psych Rehab Name of Partial or Psych Rehab: [facility] - Jose E Date of Appointment at Partial or Psych Rehab: 01/13/20 Time of Appointment at Partial or Psych Rehab: 1:00 p.m. Partial or Psych Rehab Appointment Comment: Will come see you Contact Information Discharge Discharge Address: [address] [place] [address], [facility] [address], [place] [address] (1) Hypothyroidism Hypothyroidism type: unspecified Qualified Code(s): E03.9 - Hypothyroidism, unspecified (2) Asthma Asthma severity: unspecified severity Asthma persistence: unspecified Asthma complication type: uncomplicated Qualified Code(s): J45.909 - Unspecified asthma, uncomplicated (3) Type 2 diabetes mellitus Diabetes mellitus computer terminal operator insulin use: without correction use Diabetes mellitus complication status: without complication Qualified Code(s): E11.9 - Type 2 diabetes mellitus without complications (4) Hypertension Hypertension type: essential hypertension Qualified Code(s): I10 - Essential (primary) hypertension
[2020-01-08] MEDS: LURASIDONE HCL 40 MG TAB PO SCH (17:16)
[2020-01-08] MEDS: DESMOPRESSIN ACETATE 0.1 MG TAB PO SCH (20:49)
[2020-01-08] MEDS: ATORVASTATIN 20 MG TAB PO SCH (20:50)
[2020-01-08] MEDS: MONTELUKAST SODIUM 10 MG TABLET PO SCH (20:50)
[2020-01-08] MEDS: cloZAPine 100 MG TAB PO SCH (20:51)
[2020-01-08] MEDS: TRAZODONE HCL 100 MG TAB PO PRN (21:32)
[2020-01-09] MEDS: LEVOTHYROXINE SODIUM 125 MCG TABLET PO SCH (08:13)
[2020-01-09] MEDS: BusPIRone 15 MG TAB PO SCH ×3 (08:13→20:50)
[2020-01-09] MEDS: LOSARTAN POTASSIUM 50 MG TAB PO SCH (08:14)
[2020-01-09] MEDS: FERROUS SULFATE 325 MG TAB PO SCH (08:14)
[2020-01-09] MEDS: DULOXETINE HCL 60 MG CAP PO SCH (08:14)
[2020-01-09] MEDS: estradioL 1 MG TAB PO SCH (08:14)
[2020-01-09] MEDS: DULOXETINE HCL 30 MG CAP PO SCH (08:14)
[2020-01-09] MEDS: CHOLECALCIFEROL 1,000 UNITS 25 MCG TAB PO SCH (08:15)
[2020-01-09] MEDS: MAGNESIUM OXIDE 400 MG TAB PO SCH ×2 (08:15→20:50)
[2020-01-09] MEDS: METFORMIN HCL 500 MG TAB PO SCH ×2 (08:15→17:23)
[2020-01-09] MEDS: clonazePAM 0.5 MG TAB PO PRN (14:11)
--- NOTE | 2020-01-09 14:45 | Psychiatric Progress Note ---
Date of Service January 09, 2020 Impression / Recommendations Impression 49-year-old single female with a history of severe and persistent mental illness, unemployed on disability, numerous hospitalizations, and multiple episodes of depression yearly who has been decompensating for over a week and presented for voluntary hospitalization, was found to be septic as a result of UTI and initially required several days on the hospitalist service before she could be medically stabilized and transferred to the [facility]. I have been seeing her in the outpatient clinic for years, trying to minimize polypharmacy which has been very challenging as she tends to rely heavily on medications for each symptom and has many medical comorbidities. She has been on clozapine, buspirone, escitalopram, and clonazepam as needed for some time, and during her last hospitalization 2 months ago, she was switched from lamotrigine to lurasidone to target mood. On this admission, she asked about a trial of duloxetine in place of the escitalopram, as she has never been on duloxetine before and her brother is apparently on it. We cross titrated and she is now at duloxetine at 90mg a day. She generally benefits from the daily structure, programming on the unit, and support. Inpatient treatment remains medically necessary due to the severity of symptoms and risk for suicide if discharged prematurely. (1) Schizoaffective disorder, depressive type: 01/03 - Continue home medications including clozapine (monthly CBC w/ diff, last 12/31 - ANC 5.2), lurasidone (just increased to 80mg last week), trazodone 100mg HS prn, and desmopressin. - Patient is requesting a trial of duloxetine to target mood. She has never been on it before, and her brother is apparently on it and has had a good response. We will taper off the citalopram and start duloxetine in its place. Reviewed the risks, benefits, alternatives, and side effects with the patient, and she expressed agreement. She has longstanding polypharmacy and has been very challenging to decrease her medications as she is quite resistant to this and often focuses on medication changes/new meds for all active symptoms. I do think the clozapine is beneficial for her, and given the evidence that it can h elp reduce suicide, it will be important to continue this medication as long as it is well-tolerated. - Fasting labs for monitoring on an atypical: 09/20/19: FLP normal, glu 119. - Coordinate w/ other OP clinicians/supports. 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 01/04 -TSH rechecked today and normal at 1.040. -Continue cross taper from escitalopram to duloxetine, increase duloxetine to 40 mg daily for tomorrow. -Encourage behavioral activation, bathing, clean clothes, out of her room/bed during the day, etc. 01/05 - Continue cross taper as above: will discontinue escitalopram after this morning's dose and titrate duloxetine to 60mg tomorrow morning. Pt denies side effects and is tolerating medication adjustments thus far - Continue to encourage behavioral activation. Pt did shower last evening and requested that staff continue to gently encourage her in these practices - Meeting with community case manager tomorrow afternoon 01/06 - Continue current medication regimen. 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 addressed recent of her best friend. 01/08 maintained meds unchanged, aiming for discharge tomorrow if pt maintains stability today into tomorrow (2) Anxiety: 01/03 - Continue home doses of buspirone and clonazepam. Have repeatedly attempted to wean off clonazepam which patient has not tolerated well. 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 01/04 -getting clonazepam once daily here, would like to reduce to a total of 0.5 mg daily prior to discharge, either once daily or in divided dosing. 01/06 - Discussed this above plan with patient. Since patient was actively reporting anxiety, she was not willing to reduce dosage today. Agree with above plan to either lower BID doses or offer only once daily. 01/08 - pt is attempting to only use one prn dose of clonazepam a day while seeking to have access to two such doses if needed (3) Personality disorder: 01/03 - Coordinate w/ OP therapist and other supports. Pt with borderline and dependent traits (4) UTI (urinary tract infection): 01/03 - Complete course of sulfamethoxazole-trimethoprim 800-160 mg bid (01/06). (5) Hypothyroidism: Continue home dose of levothyroxine. TSH slightly low on presentation 12/30 (0.285), but was normal 2 mos prior and has been normal on multiple checks last 2 years. Will repeat tomorrow w/ fT4, as could be contributing to depression if hypothyroid. (6) Asthma: Continue home meds (7) Type 2 diabetes mellitus: Continue metformin and diabetic diet. (8) Hypertension: Continue home dose of losartan (9) Dyslipidemia: Continue home dose of atorvastatin Risk Factors Assessment Male: No : Yes Do You Have Access To A Gun?: No Health Problems: Yes Mental Health Diagnoses: Yes Substance Use Disorders: No Previous Attempt: Yes Family History of Suicide: No Previous Psychiatric Hospitalization: Yes Hopelessness: Yes Smoker: No Protective Factors Assessment Nondenominational Beliefs: Yes : No Responsible for Young Children: No Employed: No Stable Relationships: Yes Supportive Family: Yes Good Rapport with Provider: Yes Interval History Identifying Information HOWIE HSU is a 49-year-old F who currently lives in [place] alone, has a history of schizoaffective disorder depressed type, anxiety, mixed personality disorder, obesity, and numerous previous hospitalizations, and was admitted on 01/03/20 16:43 on a 201 voluntary commitment for depression, SI, and command auditory hallucinations to kill herself. Chief Complaint "mood 4.5 today, does not rtend to go over 5 (out of 10)". Review of Systems Sleep Information Total Hours of Sleep: 8.25 Sleep Comments: awakened to be moved to another room-she was given time to awaken and to have stable gait when OOB Meal Information Percent Meal Consumed - Breakfast: 100 Percent Meal Consumed - Lunch: 100 Percent Meal Consumed - Dinner: 100 Subjective Subjective Patient was seen & assessed and interval progress reviewed with nursing. Pt described her mood as slightly better then yesterday and 4.5 out of 10 today. She is feeling ready to be discharged on Friday (tomorrow). She feels she is tolerating Cymbalta now at 90mg a day. She is wondering if she is to continue to take Clozaril at 250mg at night versus having some of her dose at noon. She is wanting to ensure that she knows how to take her Meds properly. 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 She described her Ah as similar intensity and impact as yesterday and that is is manageable for her. She denied SI or HI. She endorsed a choreic anxiety about if she will and that has been unchanged from recent days. Sleep intact, appetite and eating intact. Physical Exam Psychiatric Orientation: alert, oriented x 3 and cooperative Apperance: appropriately dressed (casually, wearing a t-shirt and leggings), appropriately groomed (consistently showering) and appeared stated age Eye Contact: good eye contact and + poor eye contact Motor Behavior: steady gait and station (slow, cautious ambulation with assistance from a cane) and no abnormal motor movements Speech: normal rate/rhythm/volume of speech (monotone) Affect: euthymic affect and mood congruent with affect Mood: + anxious mood (chronic fear cocnerrn otherwise anxiety rather low at time of assessment pe); no depressed mood Thought Process: goal directed thought process and + concrete thought process Thought Content: + cognitive distortions (consistent with underlying personality disorder traits) and reality based without delusions; not paranoid Suicidal Thoughts: denies suicidal thoughts and denies suicidal intent Homicidal Thoughts: denies homicidal thoughts Hallucinations: + auditory hallucinations (denied hallucinations presently; intermittently hears grandfather's voice); no visual hallucinations Cognition: recent memory grossly intact, attention grossly intact and language grossly intact Estimated Intelligence: + below average estimated intelligence Insight: + limited insight Judgement: + fair judgement Vital Signs (Past 24 Hours) Last Vital Signs Temp 36.6 C 01/09/20 06:00 Pulse 89 01/09/20 06:38 Resp 18 01/09/20 06:00 BP 126/85 01/09/20 06:38 Results & Data ([facility]) Laboratory Results Laboratory Results - last 24 hr 01/09/20 12:20 POC Glucose 92 Current Inpatient Medications Current Inpatient Medications: Current Inpatient Medications Acetaminophen (Tylenol) 650 mg PO Q4H PRN PRN Reason: Headache or Minor Fever Stop: 02/02/20 13:44 Last Admin: 01/05/20 06:38 Dose: 650 mg Documented by: Al Hydrox/Mg Hydrox/Simethicone (Maalox) 30 ml PO Q4H PRN PRN Reason: GI Upset Stop: 02/02/20 13:44 Atorvastatin Calcium (Lipitor) 20 mg PO HS COUNTS INCLUDE 234 BEDS AT THE [facility] Stop: 02/02/20 21:59 Last Admin: 01/08/20 20:50 Dose: 20 mg Documented by: Bismuth Subsalicylate (Kaopectate) 15 ml PO PRN PRN PRN Reason: Loose Stool Stop: 02/02/20 13:44 Buspirone HCl (Buspar) 5 mg PO TID COUNTS INCLUDE 234 BEDS AT THE [facility] Stop: 02/02/20 20:59 Last Admin: 01/09/20 13:59 Dose: 5 mg Documented by: Buspirone HCl (Buspar) 15 mg PO TID COUNTS INCLUDE 234 BEDS AT THE [facility] Stop: 02/02/20 20:59 Last Admin: 01/09/20 13:59 Dose: 15 mg Documented by: Clonazepam (Klonopin) 0.5 mg PO BID PRN PRN Reason: anxiety Stop: 02/02/20 17:08 Last Admin: 01/09/20 14:11 Dose: 0.5 mg Documented by: Clozapine (Clozapine) 250 mg PO [facility] Stop: 02/03/20 21:59 Last Admin: 01/08/20 20:51 Dose: 250 mg Documented by: Desmopressin Acetate (Ddavp) 0.2 mg PO [facility] Stop: 02/02/20 21:59 Last Admin: 01/08/20 20:49 Dose: 0.2 mg Documented by: Duloxetine HCl (Cymbalta) 60 mg PO QAM COUNTS INCLUDE 234 BEDS AT THE [facility] Stop: 02/06/20 08:59 Last Admin: 01/09/20 08:14 Dose: 60 mg Documented by: Duloxetine HCl (Cymbalta) 30 mg PO QAM COUNTS INCLUDE 234 BEDS AT THE [facility] Stop: 02/07/20 10:59 Last Admin: 01/09/20 08:14 Dose: 30 mg Documented by: Estradiol (Estrace) 1 mg PO DAILY COUNTS INCLUDE 234 BEDS AT THE [facility] Stop: 02/03/20 08:59 Last Admin: 01/09/20 08:14 Dose: 1 mg Documented by: Ferrous Sulfate (Feosol) 325 mg PO QAM COUNTS INCLUDE 234 BEDS AT [facility] Stop: 02/03/20 08:59 Last Admin: 01/09/20 08:14 Dose: 325 mg Documented by: Levothyroxine Sodium (Synthroid) 125 mcg PO DAILYBB COUNTS INCLUDE 234 BEDS AT THE [facility] Stop: 02/03/20 07:59 Last Admin: 01/09/20 08:13 Dose: 125 mcg Documented by: Losartan Potassium (Cozaar) 50 mg PO QAM COUNTS INCLUDE 234 BEDS AT [facility] Stop: 02/03/20 08:59 Last Admin: 01/09/20 08:14 Dose: 50 mg Documented by: Lurasidone HCl (Latuda) 80 mg PO DAILYBD JOSE Stop: 02/02/20 17:14 Last Admin: 01/08/20 17:16 Dose: 80 mg Documented by: Magnesium Hydroxide (Milk Of Magnesia) 30 ml PO DAILY PRN PRN Reason: Constipation Stop: 02/02/20 13:44 Magnesium Oxide (Mag-Ox) 400 mg PO BID COUNTS INCLUDE 234 BEDS AT THE [facility] Stop: 02/02/20 20:59 Last Admin: 01/09/20 08:15 Dose: 400 mg Documented by: Metformin HCl (Glucophage) 1,000 mg PO BIDM COUNTS INCLUDE 234 BEDS AT THE [facility] Stop: 02/02/20 17:44 Last Admin: 01/09/20 08:15 Dose: 1,000 mg Documented by: Montelukast Sodium (Singulair) 10 mg PO HS JOSE Stop: 02/02/20 21:59 Last Admin: 01/08/20 20:50 Dose: 10 mg Documented by: Sodium Chloride ([place] Nasal) 1 - 2 sprays NA PRN PRN PRN Reason: Nasal Dryness/Congestion Stop: 02/02/20 13:44 Trazodone HCl (Desyrel) 100 mg PO HS PRN PRN Reason: Sleep Stop: 02/02/20 17:08 Last Admin: 01/08/20 21:32 Dose: 100 mg Documented by: Vitamin D (Vitamin D3) 1,000 units PO QAM COUNTS INCLUDE 234 BEDS AT THE [facility] Stop: 02/03/20 08:59 Last Admin: 01/09/20 08:15 Dose: 1,000 units Documented by: Mental Health & Subst Abuse Tx Psychiatrist Name of Psychiatrist: Abdulkadir Urbina Psychiatrist's Date of Appointment with Psychiatrist: 01/20/20 Time of Appointment with Psychiatrist: 2:30pm Psychiatric Appointment Comment: [address], [place], [place] Therapist Name of Therapist: Abdulkadir Handley Lamar Paul Therapist's Date of Therapist Appointment: 01/14/20 Time of Therapist Appointment: 2:00 pm Therapy Appointment Comment: [address] [facility], [place], [place] [employer] Teacher Name of Gr[employer] 9 [employer] 12 Teacher: Sheree Galloway Phone Number for Gr[employer] 9 [employer] 12 Teacher: [phone] Date of Appointment with [employer] 9 [employer] 12 Teacher: 01/10/20 Time of Appointment with [employer] 9 [employer] 12 Teacher: 3:00 p.m. Case Management Appointment Comment: Will meet you at your apartment Post Discharge Appointments Primary Care Physician Name Of Family Doctor: JESSIE Tam Primary Care Time of Appointment with PCP: Follow up as scheduled Provider Appointment Comment: [id number], [place] [address] Partial or Psych Rehab Name of Partial or Psych Rehab: [facility] - Jose E Date of Appointment at Partial or Psych Rehab: 01/13/20 Time of Appointment at Partial or Psych Rehab: 1:00 p.m. Partial or Psych Rehab Appointment Comment: Will come see you Contact Information Discharge Discharge Address: [address] [place] [address], [place] [address], [place] [address] (1) Hypothyroidism Hypothyroidism type: unspecified Qualified Code(s): E03.9 - Hypothyroidism, unspecified (2) Asthma Asthma severity: unspecified severity Asthma persistence: unspecified Asthma complication type: uncomplicated Qualified Code(s): J45.909 - Unspecified asthma, uncomplicated (3) Type 2 diabetes mellitus Diabetes mellitus nursing home insulin use: without nursing home use Diabetes mellitus complication status: without complication Qualified Code(s): E11.9 - Type 2 diabetes mellitus without complications (4) Hypertension Hypertension type: essential hypertension Qualified Code(s): I10 - Essential (primary) hypertension
[2020-01-09] MEDS: LURASIDONE HCL 40 MG TAB PO SCH (17:23)
[2020-01-09] MEDS: cloZAPine 100 MG TAB PO SCH (20:50)
[2020-01-09] MEDS: DESMOPRESSIN ACETATE 0.1 MG TAB PO SCH (20:51)
[2020-01-09] MEDS: MONTELUKAST SODIUM 10 MG TABLET PO SCH (20:52)
[2020-01-09] MEDS: ATORVASTATIN 20 MG TAB PO SCH (20:52)
[2020-01-09] MEDS: TRAZODONE HCL 100 MG TAB PO PRN (21:15)
[2020-01-10 06:05] VITALS: PULSE 88; TEMP 97.9
[2020-01-10] MEDS: BusPIRone 15 MG TAB PO SCH (08:41)
[2020-01-10] MEDS: CHOLECALCIFEROL 1,000 UNITS 25 MCG TAB PO SCH (08:41)
[2020-01-10] MEDS: DULOXETINE HCL 60 MG CAP PO SCH (08:42)
[2020-01-10] MEDS: METFORMIN HCL 500 MG TAB PO SCH (08:42)
[2020-01-10] MEDS: DULOXETINE HCL 30 MG CAP PO SCH (08:42)
[2020-01-10] MEDS: FERROUS SULFATE 325 MG TAB PO SCH (08:42)
[2020-01-10] MEDS: estradioL 1 MG TAB PO SCH (08:42)
[2020-01-10] MEDS: LEVOTHYROXINE SODIUM 125 MCG TABLET PO SCH (08:42)
[2020-01-10] MEDS: LOSARTAN POTASSIUM 50 MG TAB PO SCH (08:42)
[2020-01-10] MEDS: MAGNESIUM OXIDE 400 MG TAB PO SCH (08:42)
--- NOTE | 2020-01-10 09:22 | Discharge Summary ---
Date of Service January 10, 2020 History of Present Illness Patient is well known to me as I see her biweekly in my outpatient practice. She has frequent episodes of depression and came to the ER with her BCM on 12/31/2019 with worsening mood, SI, and command AH, but was initially admitted medically for a sepsis workup due to hypotension, tachycardia, fever, and UTI, received IV fluids and was started on Bactrim. She was seen by Dr. Nicole on consults over the weekend, and was medically cleared and transferred to the U yesterday, 01/03/2020. She reports mood worsened about 9 days ago, with no clear trigger, although she is chronically isolated, which has intensified in the past 5 months due to the pandemic. She has not been attending to ADLs (not bathing or changing clothes regularly), and has not been using her coping skills including regular exercise. She states she continues to take Klonopin twice a day every day, describes her anxiety as "really bad," with excessive worry, focus on negative thoughts, feeling on edge and nervous. She reports ongoing suicidal thoughts but denies plan or intent to harm herself on the inpatient unit. She endorses poor motivation, low energy, low self-esteem, poor focus, guilt, and command auditory hallucinations to kill herself. She describes her mood as "j ust wanting to be ." She reports good compliance with medications at home, and states she talked to her brother who "thinks I need to try to go on Cymbalta, I've never been on it, and he is on it too." Physical Exam Psychiatric Orientation: alert, oriented x 3 and cooperative Apperance: appropriately dressed, appropriately groomed and appeared stated age Eye Contact: good eye contact Motor Behavior: steady gait and station (Slow, but steady, walks with a cane.) and no abnormal motor movements Speech: normal rate/rhythm/volume of speech Affect: euthymic affect and mood congruent with affect "Good." Thought Process: goal directed thought process Thought Content: reality based without delusions Suicidal Thoughts: denies suicidal thoughts Homicidal Thoughts: denies homicidal thoughts Hallucinations: + auditory hallucinations (Baseline auditory hallucinations of voices which are intermittent throughout the day, denies command hallucinations and feels able to manage them at current levels.) Cognition: recent memory grossly intact, attention grossly intact and language grossly intact Insight: + fair insight Judgement: + fair judgement Vital Signs (Past 24 Hours) Last Vital Signs Temp 36.6 C 01/10/20 06:00 Pulse 88 01/10/20 06:04 Resp 17 01/10/20 06:00 BP 134/81 01/10/20 06:04 Principal Diagnosis Schizoaffective disorder, depressive type Generalized anxiety disorder Panic disorder with agoraphobia Dependent and borderline personality traits Psychiatric Data Patient was hospitalized for 7 days. On admission, she was cross titrated from escitalopram to duloxetine to target depressive symptoms. She tolerated this well, and duloxetine was titrated to 90 mg daily. She was initially quite depressed and often isolated in her room, was not tending to ADLs her personal hygiene, and had to be encouraged to attend and participate in groups and therapy. Her mood and energy levels gradually improved, she began to shower and tending to personal hygiene and ADLs, affect was brighter and she interacted more with staff and peers. Care was coordinated with her multiple outpatient providers and her BCM was involved in treatment planning. Her rehabilitation caseworker reported the patient has good outpatient supports, and that they are working on getting her an in-mobile home park manager through the waiver program. She needs to meet with a [facility] waiver program direct service professional to complete an extensive needs assessment to determine the number of hours and what specific services are indicated, which was supposed to occur last week, but was postponed due to hospitalization. She also was supposed to return to her job at [employer], working several hours on Mondays, but that was postponed after a staff member there tested positive for COVID. The recommendation of decreasing her clonazepam use was discussed, and ultimately she agreed to try to take only 1 clonazepam a day, but wanted the second dose to be available if needed due to persistent anxiety. The patient talked about possibly quitting her job at [employer], but was encouraged to continue with it as it has been beneficial for her mood and socialization, and ultimately decided to do so. She also discussed returning to [employer] on Tuesdays and Wednesdays for additional supports. She had a meeting with her rehabilitation caseworker Sheree and the hospital social welfare clerk on 01/07/2020 to discuss her discharge planning. Her mood improved throughout her hospitalization, suicidal thoughts resolved, auditory hallucinations lessened and were less intrusive, and the patient felt ready for discharge. Day of Discharge Assessment Staff report the patient is attending and participating in groups and therapy, taking medications as prescribed, attending to her ADLs, and requesting discharge today. On my assessment, she states mood has improved from admission, rates it a 4.5/10, denies suicidal thoughts, and states that auditory hallucinations have lessened and return to baseline levels, which she feels are manageable with her usual coping skills. She denies side effects to medications, and is able to review her discharge safety plan and appointments for the coming week. She feels inpatient treatment has been helpful, and is looking forward to returning to her routine at home. Transition of Care Transition Of Care Record: was reviewed with the patient Advance Directives Advance Directives Information Provided: Yes Advance Directives: Yes (pt does not know location of it) Mental Health Advance Directive: No Advance Directives on File: No Living Will: No Power of Phonograph Needle Tip Maker: No Risk Factors Assessment Risk factors were mitigated by admission to the inpatient unit, adjusting medications to target mood and anxiety symptoms, involving the patient in groups and therapy, working on healthy coping skills and her discharge safety plan, and coordinating care with her outpatient clinicians. Higher level of care has been recommended with the addition of clubhouse 2 days a week, and she will continue to work toward getting an in-mobile home park manager via the waiver program. Mood has improved, suicidal thoughts resolved, auditory hallucinations have lessened and are at baseline levels. She is tolerating medications well, and willing to follow-up with outpatient providers. She is requesting discharge, and as she is no longer at acute risk of harm to herself, can be managed as an outpatient at this time. She does not have risk factors for harm to others. Male: No : Yes Do You Have Access To A Gun?: No Health Problems: Yes Mental Health Diagnoses: Yes Substance Use Disorders: No Previous Attempt: Yes Family History of Suicide: No Previous Psychiatric Hospitalization: Yes Hopelessness: Yes Smoker: No Protective Factors Assessment Nondenominational Beliefs: Yes : No Responsible for Young Children: No Employed: No Stable Relationships: Yes Supportive Family: Yes Good Rapport with Provider: Yes Tobacco Cessation at Discharge Tobacco Cessation Medication Prescribed at Discharge: Not Applicable/Non-Smoker Antipsychotic Medications Patient is on 2 antipsychotics as lurasidone is being used for augmentation of clozapine. Total Time Total Time Spent: Greater Than 30 Minutes Total Time Includes: Examination of the patient, Discharge Planning, Medication Reconciliation and Communication with other providers Discharge Data Lab Results 01/04/20 01/05/20 01/05/20 08:24 07:30 07:40 WBC RBC Hgb Hct MCV MCH MCHC RDW Std Deviation RDW Coeff of Bret Plt Count MPV Immature Gran % (Auto) Neut % (Auto) Lymph % (Auto) Garrett % (Auto) Eos % (Auto) Baso % (Auto) Neut # (Auto) Lymph # (Auto) Garrett # (Auto) Eos # (Auto) Baso # (Auto) Immature Gran # (Auto) POC Glucose 107 H 105 H TSH 1.040 01/06/20 01/08/20 01/08/20 08:10 07:24 08:23 WBC 7.24 RBC 4.23 Hgb 10.6 L Hct 32.5 L MCV 76.8 L MCH 25.1 MCHC 32.6 RDW Std Deviation 41.6 RDW Coeff of Bret 14.8 H Plt Count 257 MPV 8.9 Immature Gran % (Auto) 0.1 Neut % (Auto) 57.7 Lymph % (Auto) 34.5 Garrett % (Auto) 7.7 Eos % (Auto) 0.0 Baso % (Auto) 0.0 Neut # (Auto) 4.17 Lymph # (Auto) 2.50 Garrett # (Auto) 0.56 Eos # (Auto) 0.00 Baso # (Auto) 0.00 Immature Gran # (Auto) 0.01 POC Glucose 101 H 124 H TSH 01/09/20 12:20 WBC RBC Hgb Hct MCV MCH MCHC RDW Std Deviation RDW Coeff of Bret Plt Count MPV Immature Gran % (Auto) Neut % (Auto) Lymph % (Auto) Garrett % (Auto) Eos % (Auto) Baso % (Auto) Neut # (Auto) Lymph # (Auto) Garrett # (Auto) Eos # (Auto) Baso # (Auto) Immature Gran # (Auto) POC Glucose 92 TSH Hospital Course (1) Schizoaffective disorder, depressive type: 01/03 - Continue home medications including clozapine (monthly CBC w/ diff, last 12/31 - ANC 5.2), lurasidone (just increased to 80mg last week), trazodone 100mg HS prn, and desmopressin. - Patient is requesting a trial of duloxetine to target mood. She has never been on it before, and her brother is apparently on it and has had a good response. We will taper off the citalopram and start duloxetine in its place. Reviewed the risks, benefits, alternatives, and side effects with the patient, and she expressed agreement. She has longstanding polypharmacy and has been very challenging to decrease her medications as she is quite resistant to this and often focuses on medication changes/new meds for all active symptoms. I do think the clozapine is beneficial for her, and given the evidence that it can help reduce suicide, it will be important to continue this medication as long as it is well-tolerated. - Fasting labs for monitoring on an atypical: 09/20/19: FLP normal, glu 119. - Coordinate w/ other OP clinicians/supports. Explore w/ BCM process of getting telephone station installer using waiver services. 01/04 -TSH rechecked today and normal at 1.040. -Continue cross taper from escitalopram to duloxetine, increase duloxetine to 40 mg daily for tomorrow. -Encourage behavioral activation, bathing, clean clothes, out of her room/bed during the day, etc. 01/05 - Continue cross taper as above: will discontinue escitalopram after this morning's dose and titrate duloxetine to 60mg tomorrow morning. Pt denies side effects and is tolerating medication adjustments thus far - Continue to encourage behavioral activation. Pt did shower last evening and requested that staff continue to gently encourage her in these practices - Meeting with rehabilitation caseworker tomorrow afternoon 01/06 - Continue current medication regimen. Pt is no longer taking escitalopram and duloxetine has been titrated to 60mg daily - consider continued titration as tolerated - Continue to encourage behavioral activation, use of healthy coping strategies, and adherence to a routine when discharged - Meeting with rehabilitation caseworker this afternoon 01/07 raised duloxetine to 90mg a day after review maintained other aspects of treatment plan unchanged, 16+ minutes of supportive psychotherapy tied to impact of covid 19 situation on aspects of her treatment plan, including virtual appts and times of cancelled rides or cancelled shifts at skills, and having to wear a mask. addressed recent of her best friend. 01/08 maintained meds unchanged, aiming for discharge tomorrow if pt maintains stability today into tomorrow 01/09 -patient reporting improved symptoms, is at baseline, and is requesting discharge. Follow-up with myself at [facility] on 01/20/2020, CHHAYA, Sheree, today, mobile psych worker Jose E on , Mario Alberto on Mondays, [facility] 2 days a week, and therapist 01/14/2020. -Prescription issued for duloxetine 90 mg daily. (2) Anxiety: 01/03 - Continue home doses of buspirone and clonazepam. Have repeatedly attempted to wean off clonazepam which patient has not tolerated well. We have reviewed the risks of chronic benzo use including cognitive impairment, tolerance, addiction, dementia, SPOT WELDER LINE depression, drug drug interactions, and she feels the benefits of the medication for her severe and persistent anxiety outweigh the risks. 01/04 - getting clonazepam once daily here, would like to reduce to a total of 0.5 mg daily prior to discharge, either once daily or in divided dosing. 01/06 - Discussed this above plan with patient. Since patient was actively reporting anxiety, she was not willing to reduce dosage today. Agree with above plan to either lower BID doses or offer only once daily. 01/08 - pt is attempting to only use one prn dose of clonazepam a day while seeking to have access to two such doses if needed (3) Personality disorder: 01/03 - Coordinate w/ OP therapist and other supports. Pt with borderline and dependent traits. 01/09 -follow-up with therapist, Lamar Miller, 01/14/2020. (4) UTI (urinary tract infection): 01/03 - Complete course of sulfamethoxazole-trimethoprim 800-160 mg bid (01/06). (5) Hypothyroidism: Continue home dose of levothyroxine. TSH slightly low on presentation 12/30 (0.285), but was normal 2 mos prior and has been normal on multiple checks last 2 years. Will repeat tomorrow w/ fT4, as could be contributing to depression if hypothyroid. (6) Asthma: Continue home meds (7) Type 2 diabetes mellitus: Continue metformin and diabetic diet. (8) Hypertension: Continue home dose of losartan (9) Dyslipidemia: Continue home dose of atorvastatin Mental Health & Subst Abuse Tx Psychiatrist Name of Psychiatrist: [facility] - Dr. Urbina Psychiatrist's Date of Appointment with Psychiatrist: 01/20/20 Time of Appointment with Psychiatrist: 2:30pm Psychiatric Appointment Comment: [address] [facility], [place] Therapist Name of Therapist: Abdulkadir Miller Therapist's Date of Therapist Appointment: 01/14/20 Time of Therapist Appointment: 2:00 pm Therapy Appointment Comment: [address] [facility], [place] Gis Programmer Name of Gis Programmer: Sheree Galloway Phone Number for Gis Programmer: [phone] Date of Appointment with Gis Programmer: 01/10/20 Time of Appointment with Gis Programmer: 3:00 p.m. Case Management Appointment Comment: Will meet you at your apartment Post Discharge Appointments Primary Care Physician Name Of Family Doctor: JESSIE Tam Primary Care Time of Appointment with PCP: Follow up as scheduled Provider Appointment Comment: [id number], [place] [address] Partial or Psych Rehab Name of Partial or Psych Rehab: [facility] - Jose E Date of Appointment at Partial or Psych Rehab: 01/13/20 Time of Appointment at Partial or Psych Rehab: Per your schedule Partial or Psych Rehab Appointment Comment: Will come see you Smoking Cessation Counseling Tobacco Cessation Medication Prescribed at Discharge: Not Applicable/Non-Smoker Contact Information Discharge Discharge Address: [address] [place] [address], [place] [address] Discharge Plan Discharge Items Patient Disposition: Home - Self-Care Reason For Visit: SCHIZOAFFECTIVE DISORDER Discharge Diagnosis: schizoaffective disorder Activity: Per Instructions section Non-emergency contact: Psychiatrist, Therapist and Lone Lead Lineman Call non-emergency contact if: you have any medication questions and your symptoms worsen Follow-up/Referrals: Niles Tam MD [Primary Care Provider] - Diet: Carb Consistent or DM2 Addtl Attending Provider Instructions: SPECIAL CARE INSTRUCTIONS: 1. Follow through with your scheduled aftercare appointments. If unable to keep an appointment, please call to reschedule. Your next blood draw for CBC for clozapine is due 02/08/2020. 2. Take your medication only as prescribed. Medication should not be changed or stopped without the approval of your doctor. In the event of worsening symptoms or concerns about side effects, contact your doctor immediately. 3. Utilize new healthy coping skills, anger management skills, and stress management skills learned during your hospitalization. Journal feelings and process them with a support person. Identify stressors or situations that may result in relapse, deterioration or inappropriate behaviors and develop a plan to deal with those issues. 4. If your coping skills are ineffective and you are in crisis, contact your outpatient providers for direction. If unable to reach your providers, please call the CAN HELP LINE AT or go to the closest Emergency Room. 5. Avoid alcohol and un-prescribed drugs. 6. You have been provided with the Mental Health Advance Directives Pamphlet for your review. AFTERCARE APPOINTMENTS: * Please call your insurance company prior to your scheduled appointment to confirm your aftercare providers are covered. Take your insurance information to your appointments. WHO TO CALL AND WHEN: Medical Emergencies: For questions or emergencies related to your hospital stay, please contact the Inpatient Behavioral Health Unit at [phone]. A nitroglycerin distributor is on-call 23/12 for the Behavioral Health Unit for emergencies At any time you feel your situation is an emergency, you may also call 911 immediately. Your Doctors Instructions noted above were prepared by provider Archana Urbina MD. Pending Studies at Discharge: No Stand-Alone Forms: My [facility] [employer], Smoking Cessation Medications and DC Order Prescriptions: New ferrous sulfate 325 mg (65 mg iron) Tablet,Delayed Release (Dr/Ec) 325 mg PO QAM Qty: 30 RF: 0 duloxetine 30 mg Capsule,Delayed Release(Dr/Ec) 30 mg PO QAM Qty: 30 RF: 0 duloxetine 60 mg Capsule,Delayed Release(Dr/Ec) 60 mg PO QAM Qty: 30 RF: 0 Continued buspirone 10 mg tablet 20 mg PO TID RF: 0 ergocalciferol (vitamin D2) [Vitamin D2] 50,000 unit capsule 50,000 unit PO MONTHLY Qty: 12 RF: 3 metformin [Glucophage] 500 mg tablet 1,000 mg PO BID Qty: 360 RF: 3 estradiol 1 mg tablet 1 mg PO DAILY Qty: 30 RF: 11 cholecalciferol (vitamin D3) [Vitamin D3] 25 mcg (1,000 unit) capsule 1,000 units PO QAM Qty: 90 RF: 3 atorvastatin [Lipitor] 20 mg tablet 20 mg PO HS Qty: 30 RF: 5 levothyroxine [Synthroid] 125 mcg tablet 125 mcg PO QAM Qty: 90 RF: 3 clonazepam 0.5 mg tablet 0.5 mg PO BID PRN (Reason: anxiety) RF: 0 clozapine 50 mg tablet 50 mg PO DIRECTED RF: 0 trazodone 100 mg tablet 100 mg PO HS PRN (Reason: Sleep) RF: 0 desmopressin 0.2 mg tablet 0.2 mg PO HS RF: 0 Latuda 80 mg tablet 80 mg PO QDD RF: 0 losartan [Cozaar] 50 mg tablet 50 mg PO QAM RF: 0 montelukast 10 mg tablet 10 mg PO HS RF: 0 clozapine 100 mg tablet 200 mg PO HS RF: 0 magnesium oxide 400 mg (241.3 mg magnesium) Tablet 400 mg PO BID Qty: 60 RF: 0 Discontinued escitalopram oxalate [Lexapro] 20 mg tablet 20 mg PO QAM RF: 0 Discharge Orders: Discharge Order (Routine); Ordered 01/10/20 Ordered By: Archana Urbina Admission Data Admit Date/Time: 01/03/20 16:43 Attending Provider: Archana Urbina Admit Provider: Sarita Nicole Primary Care Provider: Niles Tam Other Interventions: PSY Interdisciplinary Discharge Planning Last Done: 01/10/20 09:03 Coding Level of Care Code 48413 D/C day mgmt > 30 min Diagnoses Schizoaffective disorder, depressive type F25.1 Anxiety F41.9 Personality disorder F60.9 UTI (urinary tract infection) N39.0 Hypothyroidism E03.9 Hypothyroidism type: unspecified Asthma J45.909 Asthma severity: unspecified severity Asthma persistence: unspecified Asthma complication type: uncomplicated Type 2 diabetes mellitus E11.9 Diabetes mellitus outreach assistant insulin use: without jail use Diabetes mellitus complication status: without complication Hypertension I10 Hypertension type: essential hypertension Dyslipidemia E78.5
[2020-01-10 09:51] VITALS: BP 133/83
== END 2020-01-10 10:50 | disposition home or self-care (01) | DRG 885 ==
LOC: 3S 16:43

== ENCOUNTER 2023-12-15 09:43 | Inpatient (IN) ==
--- NOTE | 2023-12-15 10:27 | Emergency Department Note ---
Impression & Plan Auditory hallucinations, Suicidal ideations ED Provider Note NAME: HOWIE HSU AGE: 53 SEX: F : 1970 ARRIVES VIA: Walk-In INFORMANT: Patient, the patient's caregiver ED PROVIDER(S): Niles Doyle DO CHIEF COMPLAINT: Mental health evaluation HPI: The patient is a 53-year-old female who presented to the emergency department for an evaluation of mental health issues. The patient has a history of mental health issues in the past. She states that she has been taking her medications as prescribed. Her caregiver presented to the emergency department with her. The patient has been hearing voices. Specifically she been hearing her mother's voice telling her to hurt herself. She is telling her to either cut herself or take an overdose of her medications. The patient did not follow any of these suggestions. Her primary psychiatrist called our emergency department and told us that the patient would be coming in because of the symptoms. ROS: See above HPI for pertinent positives & negatives. A total of 10 systems reviewed and were otherwise negative. PAST MEDICAL HISTORY: See Below PAST SURGICAL HISTORY: See Below FAMILY HISTORY: See Below SOCIAL HISTORY: See Below HOME MEDICATIONS: See Below ALLERGIES: See Below VITALS: See Below PHYSICAL EXAMINATION: GENERAL: Patient is awake alert in no acute distress patient is resting comfortably and showing no signs of anxiety EYES: The conjunctivae are clear. The pupils are round and reactive. EARS, NOSE, MOUTH AND THROAT: The nose is without any evidence of any deformity. NECK: The neck is nontender and supple. RESPIRATORY: Normal respiratory effort is noted there is no evidence of wheezing rhonchi or rales CARDIOVASCULAR: Regular rate and rhythm noted there no murmurs rubs or gallops normal S1 normal S2. GASTROINTESTINAL: The abdomen is soft. Abdomen is nontender. MUSCULOSKELETAL/EXTREMITIES: There is no evidence of gross deformity full range of motion is noted in the hips and shoulders. SKIN: There is no obvious evidence of any rash. There are no petechiae, pallor or cyanosis noted. NEUROLOGIC: Patient is awake alert and oriented x3 PSYCH: The patient is awake and alert. The patient's affect is flat. She is not anxious but still admits to hearing voices and having suicidal ideation. MEDICAL DECISION MAKING: The patient is a 53-year-old female who presented to the emergency department for mental health evaluation. The patient was having problems with auditory hallucinations as well as suicidal ideation. The patient was medically cleared in the emergency department. I discussed the patient's condition with the emergency department of health case briefer. At this point the patient would prefer to stay at our facility but we have no beds available. For this reason a bed search is currently underway. She was referred to the [facility] which would be her preference at this time. The patient is requesting inpatient management. The patient was calm on my reevaluation. Triage Nursing notes reviewed. Prior medical records reviewed Vital Signs: reviewed and remarkable for no significant abnormalities Differential diagnosis: Mood disorder, infection, hypoglycemia, electrolyte abnormalities, cardiac sources, intracerebral event, toxicologic, trauma, neurologic, as well as other pathologies. ER treatment provided: See below Diagnostics interpreted by me: ECG: none Laboratory studies: As stated above and show below. Imaging studies: See below. Consultation(s): I discussed this case with the emergency department mental health case briefer. The patient was signed out to Dr. Jo at change of shift. Please see his note for continuation of care and further disposition. Past Med/Surg History Problem List (Updated 12/15/23 @ 16:54 by Niles Doyle DO) Suicidal ideations (Acute) Auditory hallucinations (Acute) Facial cellulitis Schizoaffective disorder, depressive type (Chronic 01/11/11) Asthma (Chronic) Dyslipidemia (Chronic) Hypertension (Chronic) Hypothyroidism (Chronic) Type 2 diabetes mellitus (Chronic) Suicidal ideation IBS (irritable bowel syndrome) Anxiety Chronic sinusitis (Acute) Eczema (Acute) Gastro-esophageal reflux (Acute) Hemorrhoids (Acute) Iron deficiency anemia (Acute) Seborrheic keratosis (Acute) Tremor (Acute) Vitamin B12 deficiency (Acute) Vitamin D deficiency (Acute) Personality disorder Fatty liver Hepatosplenomegaly Hypomagnesemia Obesity Diarrhea Rash and nonspecific skin eruption Acute hyponatremia Symptoms of urinary tract infection Urinary incontinence Nocturnal enuresis Right flank pain Nephrolithiasis Bladder pain Medical History (Updated 12/15/23 @ 16:54 by Niles Doyle DO) Hypoxemia Influenza (2019) Bacterial pneumonia (01/11/11) Surgical History H/O wisdom tooth extraction History of thyroid surgery H/O: hysterectomy Family History Mother Breast cancer Hypertension Stroke Unknown Hypertension Father Hypertension Heart disease Cancer Grandfather Heart disease Stroke Brother Myocardial infarction Grandmother (Maternal) Colon cancer Grandmother Stroke Denies family history of Ovarian cancer Prostate cancer Social History Smoking Status: Former smoker Second Hand Exposure: No; Do You Dip or Chew Tobacco: No; Hx Alcohol Use: No Hx Substance Use: No Preferred Language: Danish Communication Ability: Effective Visual Impairment: No Limitations Hearing Ability: Normal Hairspring Vibrator Required: No Beliefs That Will Affect Care: None marital status: Single Current Living Situation: Alone current occupational status: disabled How many Children do You have: 0 Feels Safe at Home: Yes Childhood Exposure to Second-Hand Smoke: No Physical Activity Frequency: Daily Seatbelt Use: always Sunscreen Use: No Gender Identity: Female Assistive Devices: Cane and Special Shoe Allergies Allergies Allergy/AdvReac Type Severity Reaction Status Date / Time prednisone Allergy Severe hallucinati Verified 10/08/23 14:10 ons chlorpromazine Allergy Mild LIGHTHEADED Verified 10/08/23 14:10 SHUFFLING GAIT aspirin Allergy Unknown Unknown Verified 10/08/23 14:10 levofloxacin Allergy Unknown ?ALLERGIC Verified 10/08/23 14:10 TO LEVAQUIN? NSAIDS (Non-Steroidal Allergy Unknown . Verified 10/08/23 14:10 Anti-Inflamma Penicillins Allergy Unknown RASH, Verified 10/08/23 14:10 nausea and vomitting quinine Allergy Unknown Unknown Verified 10/08/23 14:10 cefdinir AdvReac Mild "it did Verified 10/08/23 14:10 not work" see comment below... doxycycline AdvReac Unknown HEARING Verified 10/08/23 14:10 VOICES, depression theophylline [From [facility]] AdvReac Unknown Verified 10/08/23 14:10 Home Meds Home Medications Medication Instructions Recorded Confirmed buspirone 10 mg tablet 20 mg PO TID 01/22/19 10/08/23 clonazepam 0.5 mg tablet 0.5 mg PO TID anxiety 11/14/21 10/08/23 lamotrigine 100 mg tablet 100 mg PO DAILY 11/14/21 10/08/23 (Lamictal) trazodone 100 mg tablet 150 mg PO HS Sleep 11/14/21 10/08/23 clozapine 50 mg tablet 100 mg PO DAILY 12/25/21 10/08/23 venlafaxine 150 mg 300 mg PO DAILY 12/25/21 10/08/23 capsule,extended release 24 hr (Effexor XR) clozapine 100 mg tablet 350 mg PO HS 11/22/22 10/08/23 cyanocobalamin (vitamin B-12) 2,000 mcg PO DAILY 01/15/23 10/08/23 1,000 mcg capsule Previous Rx's Medication Instructions Recorded lurasidone 120 mg tablet (Latuda) 120 mg PO DAILY #30 tabs 10/12/20 lancing device with lancets kit #1 ea 11/20/22 (GPal Delica Plus Lancing Device kit) vibegron 75 mg tablet (Gemtesa) 75 mg PO DAILY #90 tabs 05/13/23 atorvastatin 40 mg tablet 40 mg PO HS 90 days #90 tabs 05/14/23 cholecalciferol (vitamin D3) 25 25 mcg PO QAM #90 caps 05/14/23 mcg (1,000 unit) capsule (Vitamin D3) ferrous sulfate 325 mg (65 mg 325 mg PO QAM #90 tabs 05/14/23 iron) tablet,delayed release levothyroxine 125 mcg tablet 125 mcg PO QAM #90 tabs 05/14/23 (Synthroid) losartan 50 mg tablet (Cozaar) 50 mg PO QAM #90 tabs 05/14/23 montelukast 10 mg tablet 10 mg PO DAILY #90 tabs 05/14/23 magnesium oxide 400 mg (241.3 mg 400 mg PO DAILY #90 tabs 06/24/23 magnesium) tablet blood sugar diagnostic (MIOXuch #100 ea 07/14/23 Ultra Test strips) lancets 30 gauge (GPal Delica #100 ea 07/14/23 Plus Lancet) metformin 500 mg tablet 1,000 mg (2 x 500 mg) PO BID #360 07/14/23 tabs ergocalciferol (vitamin D2) 1,250 50,000 unit PO MONTHLY #12 caps 07/28/23 mcg (50,000 unit) capsule (Vitamin D2) nystatin 100,000 unit/gram topical 1 applic topical BID #30 grams 09/08/23 cream semaglutide 1 mg/dose (4 mg/3 mL) 1 mg (0.75 mL) subcut Q7D #3 mL 10/06/23 subcutaneous pen injector estradiol 1 mg tablet 1 mg PO DAILY #90 tabs 11/07/23 Results & Data (ED) Vital Signs Vital Signs - 24 hr 12/15/23 09:48 12/15/23 11:30 Temperature 36.8 C Temperature Source Temporal Artery Scan Pulse Rate 98 H Pulse Rate [Right Finger] 94 H Pulse Rhythm [Right Finger] Regular Pulse Strength [Right Finger] Normal Respiratory Rate 18 18 Respiratory Effort / Characteristics Non-Labored Spontaneous Non-Labored Spontaneous Respiratory Depth Normal Normal Respiratory Pattern Regular Regular Blood Pressure 122/73 Blood Pressure [Right Arm] 127/75 Blood Pressure Mean 89 Blood Pressure Mean [Right Arm] 92 Blood Pressure Position Sitting Blood Pressure Position [Right Arm] Sitting Pulse Oximetry 97 97 Oxygen Delivery Method Room Air Room Air Sepsis Recent Fever Within 48 Hours No Sepsis New/Unexplained Change in Mental Status No Sepsis Action Taken by Nursing No Action Required Home Medications Current Medication List: was personally reviewed by me Laboratory Data Attestation: I reviewed the patient's lab results. 12/15/23 10:35 12/15/23 10:35 Lab Results 12/15/23 12/15/23 12/15/23 Range/Units 10:23 10:35 10:40 WBC 6.69 (4.8-10.8) K/ul RBC 4.01 L (4.20-5.40) M/uL Hgb 10.7 L (12.0-16.0) g/dl Hct 34.4 L (37.0-47.0) % MCV 85.8 (80.0-100.0) fL MCH 26.7 (25.0-34.0) pg MCHC 31.1 L (32.0-36.0) g/dL RDW Std Deviation 43.7 (36.4-46.3) fL RDW Coeff of Bret 14.0 (11.5-14.5) % Plt Count 249 (130-400) K/uL MPV 8.9 L (9.4-12.4) fL Immature Gran % (Auto) 0.1 % Neut % (Auto) 56.4 % Lymph % (Auto) 36.5 % [place] % (Auto) 7.0 % Eos % (Auto) 0.0 % Baso % (Auto) 0.0 % Neut # (Auto) 3.77 (1.40-6.50) K/uL Lymph # (Auto) 2.44 (1.20-3.40) K/uL [place] # (Auto) 0.47 (0.11-0.59) K/uL Eos # (Auto) 0.00 (0.00-0.50) K/uL Baso # (Auto) 0.00 (0.00-0.20) K/uL Immature Gran # (Auto) 0.01 (0.01-0.20) K/uL Sodium 142 (136-145) mmol/L Potassium 4.1 (3.5-5.1) mmol/L Chloride 107 (98-107) mmol/L Carbon Dioxide 25 (21-32) mmol/L Anion Gap 10 (3-11) BUN 7 (6-23) mg/dl Creatinine 0.76 (0.6-1.2) mg/dl Est Cr Clr Drug Dosing 100.2 ml/min Est GFR ( Amer) 102.3 ml/min Est GFR (Non-Af Amer) 88.3 ml/min BUN/Creatinine Ratio 9.2 L (10-20) Glucose 93 (70-99(Fasting)) mg/dl Calcium 8.9 (8.6-10.3) mg/dl Total Bilirubin 0.3 (0.2-1.0) mg/dl AST 11 L (13-39) U/L ALT 13 (7-52) U/L Alkaline Phosphatase 82 (34-104) U/L Total Protein 6.5 (6.0-8.3) gm/dl Albumin 4.0 (3.4-5.0) gm/dl Globulin 2.5 (2.5-4.0) gm/dl Albumin/Globulin Ratio 1.6 (0.9-2) TSH 0.443 (0.300-4.500) uIu/ml Urine Color Yellow Urine Appearance Clear (Clear) Urine pH 6.5 (4.5-7.5) Ur Specific [place] 1.010 (1.000-1.030) Urine Protein Negative (Negative) Urine Glucose (UA) Negative (Negative) Urine Ketones Negative (Negative) Urine Blood Negative (Negative) Urine Nitrite Negative (Negative) Urine Bilirubin Negative (Negative) Urine Urobilinogen Negative (Negative) Ur Leukocyte Esterase Negative (Negative) Salicylates < 3.0 L (3.0-30) mg/dl Urine Opiates Screen Neg (Neg) Ur Methadone, Qual Neg (Neg) Urine Fentanyl Screen Neg (Neg) Acetaminophen < 3 L (10-30) ug/ml Urine Barbiturates Neg (Neg) Ur Phencyclidine (PCP) Neg (Neg) U Amphetamin/Meth Scrn Neg (Neg) MDMA (Ecstasy) Screen Pos H (Neg) U Benzodiazepines Scrn Neg (Neg) Ur Cocaine Metabolite Neg (Neg) U Marijuana (THC) Screen Neg (Neg) Ethyl Alcohol mg/dL < 10.0 (<10.0) mg/dl SARS-CoV-2, RNA, NAAT NEGATIVE (NEGATIVE) Discharge Plan Visit Data Chief Complaint: Mental Health Evaluation Stated Complaint: [facility] ED Provider: Niles Doyle Discharge Problem: Auditory hallucinations, Suicidal ideations Patient Disposition: Still a Patient Forms Stand Alone Forms: [facility], Suicide Prevention Resources Prescriptions Prescriptions: No Action buspirone 10 mg tablet 20 mg PO TID (DME) lancing device with lancets [GPal Delica Plus Lanc Dev] Kit See Rx Instructions .Route Qty: 1 0RF Rx Instructions: test once a day Gemtesa 75 mg tablet 75 mg PO DAILY Qty: 90 3RF montelukast 10 mg tablet 10 mg PO DAILY Qty: 90 3RF losartan [Cozaar] 50 mg tablet 50 mg PO QAM Qty: 90 3RF Rx Instructions: take in morning levothyroxine [Synthroid] 125 mcg tablet 125 mcg PO QAM Qty: 90 3RF atorvastatin 40 mg tablet 40 mg PO HS 90 Days Qty: 90 3RF Rx Instructions: at bedtime ferrous sulfate 325 mg (65 mg iron) tablet,delayed release (DR/EC) 325 mg PO QAM Qty: 90 3RF cholecalciferol (vitamin D3) [Vitamin D3] 25 mcg (1,000 unit) capsule 25 mcg PO QAM Qty: 90 3RF magnesium oxide 400 mg (241.3 mg magnesium) tablet 400 mg PO DAILY Qty: 90 3RF (DME) lancets [OneTouch Delica Plus Lancet] 30 gauge misc See Rx Instructions .Route Qty: 100 3RF Rx Instructions: test QD and as needed metformin 500 mg tablet 1,000 mg PO BID Qty: 360 3RF (DME) OneTouch Ultra Test Strip See Rx Instructions .Route Qty: 100 3RF Rx Instructions: Test blood sugars daily. E11.9 ergocalciferol (vitamin D2) [Vitamin D2] 1,250 mcg (50,000 unit) capsule 50,000 unit PO MONTHLY Qty: 12 0RF Rx Instructions: TAKE ON 1ST DAY OF MONTH nystatin 100,000 unit/gram cream 1 applic topical BID Qty: 30 3RF semaglutide 1 mg/dose (4 mg/3 mL) pen injector 1 mg subcut Q7D Qty: 3 3RF estradiol 1 mg tablet 1 mg PO DAILY Qty: 90 0RF lamotrigine [Lamictal] 100 mg tablet 100 mg PO DAILY venlafaxine [Effexor XR] 150 mg capsule,extended release 24hr 300 mg PO DAILY Latuda 120 mg tablet 120 mg PO DAILY Qty: 30 2RF Rx Instructions: must administer with food (at least 350 calories) clozapine 50 mg tablet 100 mg PO DAILY Rx Instructions: Take at noon clonazepam 0.5 mg tablet 0.5 mg PO TID cyanocobalamin (vitamin B-12) 1,000 mcg capsule 2,000 mcg PO DAILY trazodone 100 mg tablet 150 mg PO HS clozapine 100 mg tablet 350 mg PO HS Referrals Referrals: Niles Tam MD [Primary Care Provider] -
[2023-12-15 11:05] LABS: Hematocrit (blood only) 34.4 % (37.0-47.0); Hemoglobin 10.7 g/dl (12.0-16.0); Immature Granulocytes # (auto) 0.01 K/uL (0.01-0.20); Immature Granulocytes % (auto) 0.1 %; Lymphocytes # (auto) 2.44 K/uL (1.20-3.40); Lymphocytes % (auto) 36.5 %; Mean Corpuscular Hemoglobin 26.7 pg (25.0-34.0); Mean Corpuscular Hgb Conc 31.1 g/dL (32.0-36.0); Mean Corpuscular Volume 85.8 fL (80.0-100.0); Mean Platelet Volume 8.9 fL (9.4-12.4); Monocytes # (auto) 0.47 K/uL (0.11-0.59); Neutrophils # (auto) 3.77 K/uL (1.40-6.50); Neutrophils % (auto) 56.4 %; Platelet Count 249 K/uL (130-400); RDW Standard Deviation 43.7 fL (36.4-46.3); Red Blood Count 4.01 M/uL (4.20-5.40); White Blood Count 6.69 K/ul (4.8-10.8)
[2023-12-15 11:05] LABS: Appearance Urine Clear (Clear); Bilirubin Urine Negative (Negative); Blood Urine Negative (Negative); Color Urine Yellow; Glucose Urine UA Negative (Negative); Ketones Urine Negative (Negative); Leukocyte Esterase Urine Negative (Negative); Nitrite Urine Negative (Negative); Protein Urine Negative (Negative); Urobilinogen Urine Negative (Negative); pH Urine 6.5 (4.5-7.5)
[2023-12-15 11:21] LABS: Acetaminophen < 3 ug/ml (10-30); Salicylate < 3.0 mg/dl (3.0-30)
[2023-12-15 11:24] LABS: Albumin Globulin Ratio 1.6 (0.9-2); BUN Creatinine Ratio 9.2 (10-20); Bilirubin,Total 0.3 mg/dl (0.2-1.0); Calcium 8.9 mg/dl (8.6-10.3); Creatinine Clr Calc Pharmacy 100.2 ml/min; Est GFR (African American) 102.3 ml/min; Est GFR (Non-African American) 88.3 ml/min; Globulin 2.5 gm/dl (2.5-4.0); Potassium 4.1 mmol/L (3.5-5.1); Total Protein 6.5 gm/dl (6.0-8.3)
[2023-12-15 11:39] LABS: Thyroid Stimulating Hormone 0.443 uIu/ml (0.300-4.500)
[2023-12-15 12:12] LABS: Amphetamines+Metham, Urine Neg (Neg); Barbiturates, Urine Neg (Neg); Benzodiazepine, Urine Neg (Neg); Cocaine, Urine Neg (Neg); Fentanyl, Urine Neg (Neg); MDMA (Ecstacy), Urine Pos (Neg); Marijuana, Urine Neg (Neg); Methadone, Urine Neg (Neg); Opiate, Urine Neg (Neg); Phencyclidine, Urine Neg (Neg)
--- NOTE | 2023-12-15 17:10 | Emergency Department Note ---
ED Visit Note Patient is a 53-year-old female who I received in signout from Dr. Doyle is medically cleared who presents to the ER for auditory hallucinations with her mother's voice telling her to kill herself. She is agreeable currently on a 201 and waiting placement. Pt was accepted to 3 S on a 201 at 2120. .
[2023-12-15] MEDS: NON-FORMULARY MEDICATION (Semaglutide 1 mg/dose (4 mg/3 mL) pen injector) SQ SCH (18:47)
[2023-12-15] MEDS: VIBEGRON 75 MG TAB PO SCH (18:51)
[2023-12-15] MEDS: MONTELUKAST SODIUM 10 MG TABLET PO SCH (18:51)
[2023-12-15] MEDS: cloZAPine 100 MG TAB PO SCH (20:52)
[2023-12-15] MEDS: traZODone HCL 100 MG TAB PO SCH (20:52)
[2023-12-15] MEDS: busPIRone 5 MG TAB PO SCH (20:53)
[2023-12-15] MEDS: ATORVASTATIN 40 MG TAB PO SCH (20:54)
[2023-12-15] MEDS: metFORMIN HCL 500 MG TAB PO SCH (20:54)
[2023-12-15] MEDS: clonazePAM 0.5 MG TAB PO SCH (20:55)
[2023-12-15] MEDS: NYSTATIN CR 15 GM TUBE EXT SCH (20:57)
[2023-12-15] MEDS ORDERED: SODIUM CHLORIDE 0.65% NA SOLN 45 ML (OCEAN) PRN ×2 (21:34→22:06)
[2023-12-15] MEDS ORDERED: hydrOXYzine HCl 25 MG TAB PO PRN ×4 (21:34→22:06)
[2023-12-15] MEDS ORDERED: MAGNESIUM HYDROXIDE SUSP 30 ML UDC PO PRN ×2 (21:34→22:06)
[2023-12-15] MEDS ORDERED: ACETAMINOPHEN 325 MG TAB PO PRN ×2 (21:34→22:06)
[2023-12-15] MEDS ORDERED: ALUMINUM/MAGNESIUM SUSP 30 ML UDC PO PRN ×2 (21:34→22:06)
[2023-12-16] MEDS: LURASIDONE HCL 20 MG TAB PO SCH (08:39)
[2023-12-16] MEDS: LEVOTHYROXINE SODIUM 125 MCG TABLET PO SCH (08:40)
[2023-12-16] MEDS: CHOLECALCIFEROL 25 MCG (1000 UNITS) TAB PO SCH (08:40)
[2023-12-16] MEDS: CYANOCOBALAMIN (B-12) 500 MCG TABLET PO SCH (08:40)
[2023-12-16] MEDS: FERROUS SULFATE 325 MG TAB PO SCH (08:40)
[2023-12-16] MEDS: LOSARTAN POTASSIUM 50 MG TAB PO SCH (08:40)
[2023-12-16] MEDS: estradioL 1 MG TAB PO SCH (08:40)
[2023-12-16] MEDS: lamoTRIgine 100 MG TAB PO SCH (08:41)
[2023-12-16] MEDS: metFORMIN HCL 500 MG TAB PO SCH (08:41)
[2023-12-16] MEDS: VENLAFAXINE HCL XR 150 MG CAPXR PO SCH (08:41)
[2023-12-16] MEDS: MAGNESIUM OXIDE 400 MG TAB PO SCH (08:41)
[2023-12-16] MEDS ORDERED: LEVOTHYROXINE SODIUM 125 MCG TABLET PO SCH (09:00)
[2023-12-16] MEDS ORDERED: cloZAPine 25 MG TAB PO SCH (09:00)
[2023-12-16] MEDS: cloZAPine 100 MG TAB PO ONE (13:04)
--- NOTE | 2023-12-16 15:04 | Psychiatric Consultation ---
Date of Consultation December 16, 2023 Impression / Recommendations Impression Overall, I spent a total of 75 minutes with this case including review of chart records, nursing report, review of lab work, direct evaluation of the patient at bedside, counseling the patient, multidisciplinary team meeting, orders, and documentation in the electronic health record. Plan 12/16/2023: Medications reviewed with patient and adjusted. Afternoon Clozapine inc to 150mg. Blood draw frequency and ANC confirmed on REMs database. Plan to draw trough clozapine level. Psych History Chief Complaint "hearing mom's voice" but do not want to act on it". History of Present Illness Patient reports "hearing mom's voice" but do not want to act on it". Patient complains of voices of her mother telling her to kill herself by cutting self or overdosing. Reports increased associated anxiety. Says she tries her best to avoid the voices and currently does not want to kill herself. Prior to admission she went on resume call with her psychiatrist and therapist and they recommended for her to come in. Complains of chronic voices of her mother telling her to kill herself that never go away. She dieter with the voices by listening to the radio or socializing. In the past also heard her grandfather's voice. Denies hearing other voices. Says the voices never go away but are sometimes more tolerable. She denies visual hallucinations or tactile disturbances. She denies having any kind of body control. Reports with increased anxiety feels more dizzy and lightheaded. Denies any recent inciting events that would have made her stressed or anxious. Denies recent medication changes. Reports in the past was up to 1000 mg of clozapine. Reports recent worsening of mood, sleeping more to cope, feeling less rested, decreased energy. Reports still having good concentration. Says this got worse gradually. She denies alcohol or drug problems currently and in her life. Reports in the past symptoms improved by going to groups and being more social. Reports past TMS was helpful however unable to financially pay for this. Has had 1 ECT session however did not like the experience and complained of severe headache. Currently getting clozapine CBC blood draws once monthly and got her last 2 weeks ago. Denies history of neutropenia while on clozapine. Patient lives in an apartment alone with caregiver assistance. 42 hospitalizations since 1992 at this current hospital. Chart review: Clozapine REMs: Monthly blood draws. Last ANC 7/15 at 3770. Past Psychiatric History Current Psychiatric Diagnosis: Schizoaffective d/o Do You Have Access To A Gun?: No History of Previous Suicide Attempt: Yes Allergies Allergy/AdvReac Type Severity Reaction Status Date / Time prednisone Allergy Severe hallucinati Verified 10/08/23 14:10 ons chlorpromazine Allergy Mild LIGHTHEADED Verified 10/08/23 14:10 SHUFFLING GAIT aspirin Allergy Unknown Unknown Verified 10/08/23 14:10 levofloxacin Allergy Unknown ?ALLERGIC Verified 10/08/23 14:10 TO LEVAQUIN? NSAIDS (Non-Steroidal Allergy Unknown . Verified 10/08/23 14:10 Anti-Inflamma Penicillins Allergy Unknown RASH, Verified 10/08/23 14:10 nausea and vomitting quinine Allergy Unknown Unknown Verified 10/08/23 14:10 cefdinir AdvReac Mild "it did Verified 10/08/23 14:10 not work" see comment below... doxycycline AdvReac Unknown HEARING Verified 10/08/23 14:10 VOICES, depression theophylline [From [facility]] AdvReac Unknown Verified 10/08/23 14:10 Home Medications Medication Instructions Recorded Confirmed Type buspirone 10 mg tablet 20 mg PO TID 01/22/19 12/15/23 History lurasidone 120 mg tablet (Latuda) 120 mg PO DAILY #30 tabs 10/12/20 12/15/23 Rx clonazepam 0.5 mg tablet 0.5 mg PO TID anxiety 11/14/21 12/15/23 History lamotrigine 100 mg tablet 100 mg PO DAILY 11/14/21 12/15/23 History (Lamictal) trazodone 100 mg tablet 150 mg PO HS Sleep 11/14/21 12/15/23 History clozapine 50 mg tablet 100 mg PO DAILY 12/25/21 12/15/23 History venlafaxine 150 mg 300 mg PO DAILY 12/25/21 12/15/23 History capsule,extended release 24 hr (Effexor XR) lancing device with lancets kit #1 ea 11/20/22 12/15/23 Rx (OneTouch Delica Plus Lancing Device kit) clozapine 100 mg tablet 400 mg PO HS 11/22/22 12/15/23 History cyanocobalamin (vitamin B-12) 2,000 mcg PO DAILY 01/15/23 12/15/23 History 1,000 mcg capsule vibegron 75 mg tablet (Gemtesa) 75 mg PO DAILY #90 tabs 05/13/23 12/15/23 Rx atorvastatin 40 mg tablet 40 mg PO HS 90 days #90 tabs 05/14/23 12/15/23 Rx cholecalciferol (vitamin D3) 25 25 mcg PO QAM #90 caps 05/14/23 12/15/23 Rx mcg (1,000 unit) capsule (Vitamin D3) ferrous sulfate 325 mg (65 mg 325 mg PO QAM #90 tabs 05/14/23 12/15/23 Rx iron) tablet,delayed release levothyroxine 125 mcg tablet 125 mcg PO QAM #90 tabs 05/14/23 12/15/23 Rx (Synthroid) losartan 50 mg tablet (Cozaar) 50 mg PO QAM #90 tabs 05/14/23 12/15/23 Rx montelukast 10 mg tablet 10 mg PO DAILY #90 tabs 05/14/23 12/15/23 Rx magnesium oxide 400 mg (241.3 mg 400 mg PO DAILY #90 tabs 06/24/23 12/15/23 Rx magnesium) tablet blood sugar diagnostic (OneTouch #100 ea 07/14/23 12/15/23 Rx Ultra Test strips) lancets 30 gauge (OneTouch Delica #100 ea 07/14/23 12/15/23 Rx Plus Lancet) metformin 500 mg tablet 1,000 mg (2 x 500 mg) PO BID #360 07/14/23 12/15/23 Rx tabs ergocalciferol (vitamin D2) 1,250 50,000 unit PO MONTHLY #12 caps 07/28/23 12/15/23 Rx mcg (50,000 unit) capsule (Vitamin D2) nystatin 100,000 unit/gram topical 1 applic topical BID #30 grams 09/08/23 12/15/23 Rx cream semaglutide 1 mg/dose (4 mg/3 mL) 1 mg (0.75 mL) subcut Q7D #3 mL 10/06/23 12/15/23 Rx subcutaneous pen injector estradiol 1 mg tablet 1 mg PO DAILY #90 tabs 11/07/23 12/15/23 Rx Patient History Medical History (Updated 12/15/23 @ 16:54 by Niles Doyle DO) Hypoxemia Influenza (2019) Bacterial pneumonia (01/11/11) Surgical History H/O wisdom tooth extraction History of thyroid surgery H/O: hysterectomy Family History Mother Breast cancer Hypertension Stroke Unknown Hypertension Father Hypertension Heart disease Cancer Grandfather Heart disease Stroke Brother Myocardial infarction Grandmother (Maternal) Colon cancer Grandmother Stroke Denies family history of Ovarian cancer Prostate cancer Social History Smoking Status: Former smoker Second Hand Exposure: No; Do You Dip or Chew Tobacco: No; Hx Alcohol Use: No Hx Substance Use: No Preferred Language: Hebrew Communication Ability: Effective Visual Impairment: No Limitations Hearing Ability: Normal 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 Beliefs That Will Affect Care: None marital status: Single Current Living Situation: Alone current occupational status: disabled How many Children do You have: 0 Feels Safe at Home: Yes Childhood Exposure to Second-Hand Smoke: No Physical Activity Frequency: Daily Seatbelt Use: always Sunscreen Use: No Gender Identity: Female Assistive Devices: Cane and Special Shoe Physical Exam Mental Examination: Appearance: Unkempt (looking down often, loose fitting clothing) Eye Contact: Fleeting Contact Motor Behavior: Unremarkable (slowed, uses walker) Speech: Soft Mood: Anxious Affect: Congruent and Constricted Thought Process: Intact and Linear Thought Content: Intact Hallucinations: Auditory and Command Insight: Fair Judgement: Fair Vital Signs (Past 24 Hours): Last Vital Signs Temp 36.6 C 12/16/23 06:00 Pulse 101 H 12/16/23 06:27 Resp 18 12/16/23 06:00 BP 136/74 12/16/23 06:27 Pulse Ox 94 12/16/23 06:00 O2 Del Method Room Air 12/16/23 06:00 Exam Statement: A physical exam was performed in the ED for the purposes of medical clearance. I accept that physical as correct and adequate for the purposes of the inpatient physical exam. Results & Data (PSY) Medications Administered Atorvastatin Calcium (Atorvastatin 40 Mg Tab) 40 mg PO HS JOSE Stop: 01/14/24 20:59 Last Admin: 12/15/23 22:09 Dose: Not Given Documented By: Admin: 12/15/23 20:54 Dose: 40 mg Documented By: ELIZA Buspirone HCl (Buspirone 5 Mg Tab) 20 mg PO TID [facility] Stop: 01/14/24 20:59 Last Admin: 12/16/23 13:34 Dose: 20 mg Documented By: Admin: 12/16/23 08:39 Dose: 20 mg Documented By: Admin: 12/15/23 20:53 Dose: 20 mg Documented By: EILZA Clonazepam (Clonazepam 0.5 Mg Tab) 0.5 mg PO TID [facility] Stop: 01/14/24 20:59 Last Admin: 12/16/23 13:36 Dose: 0.5 mg Documented By: Admin: 12/16/23 08:40 Dose: 0.5 mg Documented By: Admin: 12/15/23 20:55 Dose: 0.5 mg Documented By: ELIZA Clozapine (Clozapine 100 Mg Tab) 400 mg PO HS [facility]; Protocol Stop: 01/14/24 20:59 Last Admin: 12/15/23 22:09 Dose: Not Given Documented By: Admin: 12/15/23 20:52 Dose: 400 mg Documented By: ELIZA Cyanocobalamin (Cyanocobalamin (B-12) 500 Mcg Tablet) 2,000 mcg PO DAILY [facility] Stop: 01/15/24 08:59 Last Admin: 12/16/23 08:40 Dose: 2,000 mcg Documented By: GEETA Estradiol (Estradiol 1 Mg Tab) 1 mg PO DAILY [facility] Stop: 01/15/24 08:59 Last Admin: 12/16/23 08:40 Dose: 1 mg Documented By: GEETA Ferrous Sulfate (Ferrous Sulfate 325 Mg Tab) 325 mg PO QAM [facility] Stop: 01/15/24 08:59 Last Admin: 12/16/23 08:40 Dose: 325 mg Documented By: GEETA Lamotrigine (Lamotrigine 100 Mg Tab) 100 mg PO DAILY [facility]; Protocol Stop: 01/15/24 08:59 Last Admin: 12/16/23 08:41 Dose: 100 mg Documented By: GEETA Levothyroxine Sodium (Levothyroxine Sodium 125 Mcg Tablet) 125 mcg PO DAILYBB JOSE Stop: 01/15/24 07:59 Last Admin: 12/16/23 08:40 Dose: 125 mcg Documented By: GEETA Losartan Potassium (Losartan Potassium 50 Mg Tab) 50 mg PO QAM JOSE Stop: 01/15/24 08:59 Last Admin: 12/16/23 08:40 Dose: 50 mg Documented By: GEETA Lurasidone HCl (Lurasidone Hcl 20 Mg Tab) 120 mg PO DAILY JOSE Stop: 01/15/24 08:59 Last Admin: 12/16/23 08:39 Dose: 120 mg Documented By: GEETA Magnesium Oxide (Magnesium Oxide 400 Mg Tab) 400 mg PO DAILY JOSE Stop: 01/15/24 08:59 Last Admin: 12/16/23 08:41 Dose: 400 mg Documented By: GEETA Metformin HCl (Metformin Hcl 500 Mg Tab) 1,000 mg PO BIDM [facility] Stop: 01/15/24 08:59 Last Admin: 12/16/23 08:41 Dose: 1,000 mg Documented By: GEETA Miscellaneous (Semaglutide 1 Mg/Dose - Order Awaiting Action) 1 each N/A QS [facility] Stop: 01/15/24 07:59 Last Admin: 12/16/23 08:53 Dose: Not Given Documented By: GEETA Nystatin (Nystatin Cr 15 Gm Tube) 1 appln EXT BID [facility] Stop: 01/14/24 20:59 Last Admin: 12/16/23 08:53 Dose: 1 appln Documented By: Admin: 12/15/23 22:10 Dose: Not Given Documented By: NATALYA Trazodone HCl (Trazodone Hcl 100 Mg Tab) 150 mg PO HS [facility] Stop: 01/14/24 20:59 Last Admin: 12/15/23 22:10 Dose: Not Given Documented By: Admin: 12/15/23 20:52 Dose: 150 mg Documented By: ELIZA Venlafaxine HCl (Venlafaxine Hcl Xr 150 Mg Capxr) 300 mg PO DAILY [facility] Stop: 01/15/24 08:59 Last Admin: 12/16/23 08:41 Dose: 300 mg Documented By: GEETA Vitamin D (Cholecalciferol 25 Mcg (1000 Units) Tab) 25 mcg PO QAM [facility] Stop: 01/15/24 08:59 Last Admin: 12/16/23 08:40 Dose: 25 mcg Documented By: GEET[place] [address] [facility] Lvl 3 Patient Type New Medical Decision Making High Complexity
--- NOTE | 2023-12-16 15:07 | History & Physical ---
Date of Service December 16, 2023 Impression / Recommendations Impression HOWIE HSU is a 53-year-old F who currently lives in alone, has a history of schizoaffective disorder, bipolar type, and was admitted on 12/15/23 21:40 on a 201 voluntary commitment for worsening auditory hallucinations of her mother instructing self harm. Patient presents a long history of schizoaffective disorder depressed type with chronic auditory hallucinations instructing self-harm. No indication of recent stressors. Medications were reviewed with the patient and she cited improvement with Clozaril and Effexor. Plan to optimize clozapine dose and will draw a level to ensure safe dosing. We discussed nonmedication strategies to distract away from voices. Collateral from outpatient psychiatrist received and reviewed. MNPR due to psychosis and paranoia Overall, I spent a total of 75 minutes with this case including review of chart records, nursing report, review of lab work, direct evaluation of the patient at bedside, counseling the patient, multidisciplinary team meeting, orders, and do cumentation in the electronic health record. 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: without marine oil terminal superintendent use Qualified Code(s): E11.9 - Type 2 diabetes mellitus without complications (5) Iron deficiency anemia: (6) Urinary incontinence: (7) Hypothyroidism: Hypothyroidism type: unspecified Qualified Code(s): E03.9 - Hypothyroidism, unspecified (8) Hypertension: Hypertension type: essential hypertension Qualified Code(s): I10 - Essential (primary) hypertension (9) Dyslipidemia: (10) Asthma: Asthma complication type: uncomplicated Asthma persistence: unspecified Asthma severity: unspecified severity Qualified Code(s): J45.909 - Unspecified asthma, uncomplicated (11) Gastro-esophageal reflux: (12) Obesity: Plan 12/16/2023: Medications reviewed with patient and adjusted. Afternoon Clozapine inc to 150mg. Blood draw frequency and ANC confirmed on REMs database. Plan to draw trough clozapine level. Inventory Assets Strengths: good insight into treatments, medication adherence Needs: social supports, emotional support Suicide Risk Level Suicide Risk Level: Moderate (q15 min suicide checks) Risk Factors Assessment Do You Have Access To A Gun?: No Protective Factors Assessment Employed: No Psychiatric History Identifying Data HOWIE HSU is a 53-year-old F who currently lives in alone, has a history of schizoaffective disorder, bipolar type, and was admitted on 12/15/23 21:40 on a 201 voluntary commitment for worsening auditory hallucinations of her mother instructing self harm. Chief Complaint "hearing mom's voice" but do not want to act on it". History of Present Illness Patient reports "hearing mom's voice" but do not want to act on it". Patient complains of voices of her mother telling her to kill herself by cutting self or overdosing. Reports increased associated anxiety. Says she tries her best to avoid the voices and currently does not want to kill herself. Prior to admission she went on resume call with her psychiatrist and therapist and they recommended for her to come in. Complains of chronic voices of her mother telling her to kill herself that never go away. She dieter with the voices by listening to the radio or socializing. In the past also heard her grandfather's voice. Denies hearing other voices. Says the voices never go away but are sometimes more tolerable. She denies visual hallucinations or tactile disturbances. She denies having any kind of body control. Reports with increased anxiety feels more dizzy and lightheaded. Denies any recent inciting events that would have made her stressed or anxious. Denies recent medication changes. Reports in the past was up to 1000 mg of clozapine. Rep orts recent worsening of mood, sleeping more to cope, feeling less rested, decreased energy. Reports still having good concentration. Says this got worse gradually. She denies alcohol or drug problems currently and in her life. Reports in the past symptoms improved by going to groups and being more social. Reports past TMS was helpful however unable to financially pay for this. Has had 1 ECT session however did not like the experience and complained of severe headache. Currently getting clozapine CBC blood draws once monthly and got her last 2 weeks ago. Denies history of neutropenia while on clozapine. Patient lives in an apartment alone with caregiver assistance. 42 hospitalizations since 1992 at this current hospital. Chart review: Clozapine REMs: Monthly blood draws. Last ANC 12/14 at 3770. Past Psychiatric History Current Psychiatric Diagnosis: Schizoaffective d/o Do You Have Access To A Gun?: No History of Previous Suicide Attempt: Yes Allergies Allergy/AdvReac Type Severity Reaction Status Date / Time prednisone Allergy Severe hallucinati Verified 10/08/23 14:10 ons chlorpromazine Allergy Mild LIGHTHEADED Verified 10/08/23 14:10 SHUFFLING GAIT aspirin Allergy Unknown Unknown Verified 10/08/23 14:10 levofloxacin Allergy Unknown ?ALLERGIC Verified 10/08/23 14:10 TO LEVAQUIN? NSAIDS (Non-Steroidal Allergy Unknown . Verified 10/08/23 14:10 Anti-Inflamma Penicillins Allergy Unknown RASH, Verified 10/08/23 14:10 nausea and vomitting quinine Allergy Unknown Unknown Verified 10/08/23 14:10 cefdinir AdvReac Mild "it did Verified 10/08/23 14:10 not work" see comment below... doxycycline AdvReac Unknown HEARING Verified 10/08/23 14:10 VOICES, depression theophylline [From [facility]] AdvReac Unknown Verified 10/08/23 14:10 Home Medications Medication Instructions Recorded Confirmed Type buspirone 10 mg tablet 20 mg PO TID 01/22/19 12/15/23 History lurasidone 120 mg tablet (Latuda) 120 mg PO DAILY #30 tabs 10/12/20 12/15/23 Rx clonazepam 0.5 mg tablet 0.5 mg PO TID anxiety 11/14/21 12/15/23 History lamotrigine 100 mg tablet 100 mg PO DAILY 11/14/21 12/15/23 History (Lamictal) trazodone 100 mg tablet 150 mg PO HS Sleep 11/14/21 12/15/23 History clozapine 50 mg tablet 100 mg PO DAILY 12/25/21 12/15/23 History venlafaxine 150 mg 300 mg PO DAILY 12/25/21 12/15/23 History capsule,extended release 24 hr (Effexor XR) lancing device with lancets kit #1 ea 11/20/22 12/15/23 Rx (OneTouch Delica Plus Lancing Device kit) clozapine 100 mg tablet 400 mg PO HS 11/22/22 12/15/23 History cyanocobalamin (vitamin B-12) 2,000 mcg PO DAILY 01/15/23 12/15/23 History 1,000 mcg capsule vibegron 75 mg tablet (Gemtesa) 75 mg PO DAILY #90 tabs 05/13/23 12/15/23 Rx atorvastatin 40 mg tablet 40 mg PO HS 90 days #90 tabs 05/14/23 12/15/23 Rx cholecalciferol (vitamin D3) 25 25 mcg PO QAM #90 caps 05/14/23 12/15/23 Rx mcg (1,000 unit) capsule (Vitamin D3) ferrous sulfate 325 mg (65 mg 325 mg PO QAM #90 tabs 05/14/23 12/15/23 Rx iron) tablet,delayed release levothyroxine 125 mcg tablet 125 mcg PO QAM #90 tabs 05/14/23 12/15/23 Rx (Synthroid) losartan 50 mg tablet (Cozaar) 50 mg PO QAM #90 tabs 05/14/23 12/15/23 Rx montelukast 10 mg tablet 10 mg PO DAILY #90 tabs 05/14/23 12/15/23 Rx magnesium oxide 400 mg (241.3 mg 400 mg PO DAILY #90 tabs 06/24/23 12/15/23 Rx magnesium) tablet blood sugar diagnostic (Home Dialysis PlusTouch #100 ea 07/14/23 12/15/23 Rx Ultra Test strips) lancets 30 gauge ([facility] PlusTouch Delica #100 ea 07/14/23 12/15/23 Rx Plus Lancet) metformin 500 mg tablet 1,000 mg (2 x 500 mg) PO BID #360 07/14/23 12/15/23 Rx tabs ergocalciferol (vitamin D2) 1,250 50,000 unit PO MONTHLY #12 caps 07/28/23 12/15/23 Rx mcg (50,000 unit) capsule (Vitamin D2) nystatin 100,000 unit/gram topical 1 applic topical BID #30 grams 09/08/23 12/15/23 Rx cream semaglutide 1 mg/dose (4 mg/3 mL) 1 mg (0.75 mL) subcut Q7D #3 mL 10/06/23 12/15/23 Rx subcutaneous pen injector estradiol 1 mg tablet 1 mg PO DAILY #90 tabs 11/07/23 12/15/23 Rx Family History Family History of: Doesn't Know Family Mental Health History Comment: Discussion regarding family was triggering therefore family history was not discussed Alcohol History Hx of Alcohol Use Over the Past 12 Months: No AUDIT Total Score: 0 Smoking Use Have You Smoked or Used Tobacco Products in the Last 30 Days: No tobacco type: cigarettes Smoking Status: Former smoker Substance History Hx of Prescription Med Misuse Over the Past 12 Months: No Hx of Over the Counter Med Misuse Over the Past 12 Months: No Hx of Inhalent Misuse Over the Past 12 Months: No Hx of Organic Substance Use Over the Past 12 Months: No Hx of Illegal Substances/Street Drug Use Over Past 12 Months: No Problems as a Result of Past Substance Use: None Identified Personal History Living Arrangements: Apartment Born In: Grew up locally. Father taught psychology at [employer] [place], mother taught K Highest Grade Completed: High School Graduate Marital Status: Single Number Of Children: 0 Beliefs That Will Affect Care: None Hx Legal Problems: No Hx Traumatic Life Events: Yes Patient History Medical History (Updated 12/15/23 @ 16:54 by Niles Doyle DO) Hypoxemia Influenza (2019) Bacterial pneumonia (01/11/11) Surgical History H/O wisdom tooth extraction History of thyroid surgery H/O: hysterectomy Family History Mother Breast cancer Hypertension Stroke Unknown Hypertension Father Hypertension Heart disease Cancer Grandfather Heart disease Stroke Brother Myocardial infarction Grandmother (Maternal) Colon cancer Grandmother Stroke Denies family history of Ovarian cancer Prostate cancer Social History Smoking Status: Former smoker Second Hand Exposure: No; Do You Dip or Chew Tobacco: No; Hx Alcohol Use: No Hx Substance Use: No Preferred Language: Kiswahili Communication Ability: Effective Visual Impairment: No Limitations Hearing Ability: Normal Apparel Fashion Designer Required: No Beliefs That Will Affect Care: None marital status: Single Current Living Situation: Alone current occupational status: disabled How many Children do You have: 0 Feels Safe at Home: Yes Childhood Exposure to Second-Hand Smoke: No Physical Activity Frequency: Daily Seatbelt Use: always Sunscreen Use: No Gender Identity: Female Assistive Devices: Cane and Special Shoe Physical Exam Mental Examination: Appearance: Unkempt (often looking down, loose clothing) Eye Contact: Fleeting Contact Motor Behavior: Unremarkable (slowed movements, uses walker) Speech: Soft Mood: Anxious Affect: Congruent and Constricted Thought Process: Intact and Linear Thought Content: Intact Hallucinations: Auditory and Command Insight: Fair Judgement: Fair Vital Signs (Past 24 Hours): Last Vital Signs Temp 36.6 C 12/16/23 06:00 Pulse 101 H 12/16/23 06:27 Resp 18 12/16/23 06:00 BP 136/74 12/16/23 06:27 Pulse Ox 94 12/16/23 06:00 O2 Del Method Room Air 12/16/23 06:00 Exam Statement: A physical exam was performed in the ED for the purposes of medical clearance. I accept that physical as correct and adequate for the purposes of the inpatient physical exam. Results & Data ([facility]) Laboratory Results Laboratory Results - last 24 hr 12/16/23 08:31 POC Glucose 73 Current Inpatient Medications Current Inpatient Medications: Current Inpatient Medications Acetaminophen (Acetaminophen 325 Mg Tab) 650 mg PO Q4H PRN PRN Reason: Headache or Minor Fever Stop: 01/14/24 22:05 Al Hydrox/Mg Hydrox/Simethicone (Aluminum/Magnesium Susp 30 Ml Udc) 30 ml PO Q4H PRN PRN Reason: GI Upset Stop: 01/14/24 22:05 Atorvastatin Calcium (Atorvastatin 40 Mg Tab) 40 mg PO HS JOSE Stop: 01/14/24 20:59 Last Admin: 12/15/23 22:09 Dose: Not Given Buspirone HCl (Buspirone 5 Mg Tab) 20 mg PO TID JOSE Stop: 01/14/24 20:59 Last Admin: 12/16/23 13:34 Dose: 20 mg Clonazepam (Clonazepam 0.5 Mg Tab) 0.5 mg PO TID JOSE Stop: 01/14/24 20:59 Last Admin: 12/16/23 13:36 Dose: 0.5 mg Clozapine (Clozapine 100 Mg Tab) 400 mg PO HS JOSE; Protocol Stop: 01/14/24 20:59 Last Admin: 12/15/23 22:09 Dose: Not Given Clozapine (Clozapine 25 Mg Tab) 150 mg PO DAILY@1200 JOSE; Protocol Stop: 01/16/24 11:59 Cyanocobalamin (Cyanocobalamin (B-12) 500 Mcg Tablet) 2,000 mcg PO DAILY JOSE Stop: 01/15/24 08:59 Last Admin: 12/16/23 08:40 Dose: 2,000 mcg Ergocalciferol (Ergocalciferol 1250 Mcg (50,000 Units) Cap) 1,250 mcg PO Q30D [facility] Stop: 01/31/24 08:59 Estradiol (Estradiol 1 Mg Tab) 1 mg PO DAILY [facility] Stop: 01/15/24 08:59 Last Admin: 12/16/23 08:40 Dose: 1 mg Ferrous Sulfate (Ferrous Sulfate 325 Mg Tab) 325 mg PO QAM [facility] Stop: 01/15/24 08:59 Last Admin: 12/16/23 08:40 Dose: 325 mg Hydroxyzine HCl (Hydroxyzine Hcl 25 Mg Tab) 50 mg PO HSZ PRN PRN Reason: Insomnia Stop: 01/14/24 22:05 Hydroxyzine HCl (Hydroxyzine Hcl 25 Mg Tab) 25 mg PO Q4H PRN PRN Reason: Anxiety Stop: 01/14/24 22:05 Lamotrigine (Lamotrigine 100 Mg Tab) 100 mg PO DAILY [facility]; Protocol Stop: 01/15/24 08:59 Last Admin: 12/16/23 08:41 Dose: 100 mg Levothyroxine Sodium (Levothyroxine Sodium 125 Mcg Tablet) 125 mcg PO DAILYBB [facility] Stop: 01/15/24 07:59 Last Admin: 12/16/23 08:40 Dose: 125 mcg Losartan Potassium (Losartan Potassium 50 Mg Tab) 50 mg PO QAM [facility] Stop: 01/15/24 08:59 Last Admin: 12/16/23 08:40 Dose: 50 mg Lurasidone HCl (Lurasidone Hcl 20 Mg Tab) 120 mg PO DAILY [facility] Stop: 01/15/24 08:59 Last Admin: 12/16/23 08:39 Dose: 120 mg Magnesium Hydroxide (Magnesium Hydroxide Susp 30 Ml Udc) 30 ml PO DAILY PRN PRN Reason: Constipation Stop: 01/14/24 22:05 Magnesium Oxide (Magnesium Oxide 400 Mg Tab) 400 mg PO DAILY [facility] Stop: 01/15/24 08:59 Last Admin: 12/16/23 08:41 Dose: 400 mg Metformin HCl (Metformin Hcl 500 Mg Tab) 1,000 mg PO BIDM [facility] Stop: 01/15/24 08:59 Last Admin: 12/16/23 08:41 Dose: 1,000 mg Miscellaneous (Semaglutide 1 Mg/Dose - Order Awaiting Action) 1 each N/A QS [facility] Stop: 01/15/24 07:59 Last Admin: 12/16/23 08:53 Dose: Not Given Montelukast Sodium (Montelukast Sodium 10 Mg Tablet) 10 mg PO HS JOSE Stop: 01/16/24 21:59 Nystatin (Nystatin Cr 15 Gm Tube) 1 appln EXT BID JOSE Stop: 01/14/24 20:59 Last Admin: 12/16/23 08:53 Dose: 1 appln Sodium Chloride (Sodium Chloride 0.65% Na Soln 45 Ml (Lamb)) 1 - 2 sprays NA PRN PRN PRN Reason: Nasal Dryness/Congestion Stop: 01/14/24 22:05 Trazodone HCl (Trazodone Hcl 100 Mg Tab) 150 mg PO HS JOSE Stop: 01/14/24 20:59 Last Admin: 12/15/23 22:10 Dose: Not Given Venlafaxine HCl (Venlafaxine Hcl Xr 150 Mg Capxr) 300 mg PO DAILY JOSE Stop: 01/15/24 08:59 Last Admin: 12/16/23 08:41 Dose: 300 mg Vibegron (Vibegron 75 Mg Tab) 75 mg PO HS JOSE Stop: 01/16/24 21:59 Vitamin D (Cholecalciferol 25 Mcg (1000 Units) Tab) 25 mcg PO QAM JOSE Stop: 01/15/24 08:59 Last Admin: 12/16/23 08:40 Dose: 25 mcg
[2023-12-16] MEDS: cloZAPine 100 MG TAB PO SCH (15:51)
[2023-12-16] MEDS: lamoTRIgine 100 MG TAB PO ONE (21:11)
[2023-12-17] MEDS: LURASIDONE HCL 20 MG TAB PO SCH (08:33)
[2023-12-17] MEDS: cloZAPine 25 MG TAB PO SCH (12:13)
--- NOTE | 2023-12-17 17:06 | Psychiatric Progress Note ---
Date of Service December 17, 2023 Impression / Recommendations Impression HOWIE HSU is a 53-year-old F who currently lives in alone, has a history of schizoaffective disorder, bipolar type, and was admitted on 12/15/23 21:40 on a 201 voluntary commitment for worsening auditory hallucinations of her mother instructing self harm. Patient continues to have command auditory hallucinations of mother's voice instructing self-harm. Appears to be chronic in nature with recent worsening. Patient cites benefit from TMS in the past and is a reasonable choice given polypharmacy and limited improvement with medications. Will explore outpatient options with social work. MNPR due to psychosis and paranoia Overall, I spent a total of 45 minutes with this case including review of chart records, nursing report, review of lab work, direct evaluation of the patient at bedside, counseling the patient, multidisciplinary team meeting, orders, and documentation in the electronic health record. (1) Suicidal ideation: (2) Auditory hallucinations: (3) Schizoaffective disorder, depressive type: (4) Cluster B personality disorder: (5) Type 2 diabetes mellitus: (6) Iron deficiency anemia: (7) Urinary incontinence: (8) Hypothyroidism: (9) Hypertension: (10) Dyslipidemia: (11) Asthma: (12) Gastro-esophageal reflux: (13) Obesity: Plan 12/17/2023: Continue medications and treatment plan. 12/16/2023: Medications reviewed with patient and adjusted. Afternoon Clozapine inc to 150mg. Blood draw frequency and ANC confirmed on REMs database. Plan to draw trough clozapine level. Inventory Assets Strengths: good insight into treatments, medication adherence Needs: social supports, emotional support Suicide Risk Level Suicide Risk Level: Moderate (q15 min suicide checks) Risk Factors Assessment Do You Have Access To A Gun?: No Protective Factors Assessment Employed: No Interval History Identifying Information HOWIE HSU is a 53-year-old F who currently lives in alone, has a history of schizoaffective disorder, bipolar type, and was admitted on 12/15/23 21:40 on a 201 voluntary commitment for worsening auditory hallucinations of her mother instructing self harm. Chief Complaint "feeling low". Review of Systems Sleep Information Total Hours of Sleep: 7.30 Sleep Comments: HS Klonopin and Trazadone Meal Information Percent Meal Consumed - Breakfast: 100 Percent Meal Consumed - Lunch: 100 Percent Meal Consumed - Dinner: 75 Subjective Subjective Patient was seen & assessed and interval progress reviewed with treatment team nursing and social work Nursing reported patient endorsed feeling better. Clozapine levels drawn. Patient slept well. Patient reports ongoing voices of mother instructing self-harm. Feels "low". Reports exercising on a stationary bike 2 times a day for 1 hour each time. Reports watching Milagro the TV show and enjoys it. Denies anhedonia. Reports growing up in [place] and had a supportive family. Was not in special classes for learning disability. 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 In 1989 in her early 20s she started experiencing voices which were of her grandfather and were negative in nature. Confirmed that she has been on Effexor since 2021. She complains of ongoing SI. She complains of agoraphobia and avoids leaving the house due to feeling that bad things may happen. Catastrophic thinking. Interested in TMS citing past improvement and previously got it at [facility]. Physical Exam Mental Examination Appearance: Unkempt (often looking down, loose clothing) Eye Contact: Fleeting Contact Motor Behavior: Unremarkable (slowed movements, uses walker) Speech: Soft Mood: Anxious Affect: Congruent and Constricted Thought Process: Intact and Linear Thought Content: Intact Hallucinations: Auditory and Command Insight: Fair Judgement: Fair Vital Signs (Past 24 Hours) Last Vital Signs Temp 35.8 C L 12/17/23 05:58 Pulse 89 12/17/23 06:00 Resp 16 12/17/23 05:58 BP 113/63 12/17/23 06:00 Pulse Ox 94 12/16/23 06:00 O2 Del Method Room Air 12/16/23 06:00 Results & Data ([facility]) Laboratory Results Laboratory Results - last 24 hr 12/16/23 12/17/23 18:49 06:20 POC Glucose 76 Clozapine Pending Norclozapine Pending Current Inpatient Medications Current Inpatient Medications: Current Inpatient Medications Acetaminophen (Acetaminophen 325 Mg Tab) 650 mg PO Q4H PRN PRN Reason: Headache or Minor Fever Stop: 01/14/24 22:05 Al Hydrox/Mg Hydrox/Simethicone (Aluminum/Magnesium Susp 30 Ml Udc) 30 ml PO Q4H PRN PRN Reason: GI Upset Stop: 01/14/24 22:05 Atorvastatin Calcium (Atorvastatin 40 Mg Tab) 40 mg PO HS JOSE Stop: 01/14/24 20:59 Last Admin: 12/16/23 21:10 Dose: 40 mg Buspirone HCl (Buspirone 5 Mg Tab) 20 mg PO TID [facility] Stop: 01/14/24 20:59 Last Admin: 12/17/23 13:46 Dose: 20 mg Clonazepam (Clonazepam 0.5 Mg Tab) 0.5 mg PO TID [facility] Stop: 01/14/24 20:59 Last Admin: 12/17/23 13:56 Dose: 0.5 mg Clozapine (Clozapine 100 Mg Tab) 400 mg PO HS [facility]; Protocol Stop: 01/14/24 20:59 Last Admin: 12/16/23 21:09 Dose: 400 mg Clozapine (Clozapine 25 Mg Tab) 150 mg PO DAILY@1200 JOSE; Protocol Stop: 01/16/24 11:59 Last Admin: 12/17/23 12:13 Dose: 150 mg Cyanocobalamin (Cyanocobalamin (B-12) 500 Mcg Tablet) 2,000 mcg PO DAILY [facility] Stop: 01/15/24 08:59 Last Admin: 12/17/23 08:32 Dose: 2,000 mcg Ergocalciferol (Ergocalciferol 1250 Mcg (50,000 Units) Cap) 1,250 mcg PO Q30D [facility] Stop: 01/31/24 08:59 Estradiol (Estradiol 1 Mg Tab) 1 mg PO DAILY [facility] Stop: 01/15/24 08:59 Last Admin: 12/17/23 08:33 Dose: 1 mg Ferrous Sulfate (Ferrous Sulfate 325 Mg Tab) 325 mg PO QAM [facility] Stop: 01/15/24 08:59 Last Admin: 12/17/23 08:32 Dose: 325 mg Hydroxyzine HCl (Hydroxyzine Hcl 25 Mg Tab) 50 mg PO HSZ PRN PRN Reason: Insomnia Stop: 01/14/24 22:05 Hydroxyzine HCl (Hydroxyzine Hcl 25 Mg Tab) 25 mg PO Q4H PRN PRN Reason: Anxiety Stop: 01/14/24 22:05 Lamotrigine (Lamotrigine 100 Mg Tab) 200 mg PO [facility]; Protocol Stop: 01/16/24 21:59 Levothyroxine Sodium (Levothyroxine Sodium 125 Mcg Tablet) [facility] Stop: 01/15/24 07:59 Last Admin: 12/17/23 08:32 Dose: 125 mcg Losartan Potassium (Losartan Potassium 50 Mg Tab) 50 mg PO QAM [facility] Stop: 01/15/24 08:59 Last Admin: 12/17/23 08:42 Dose: 50 mg Lurasidone HCl (Lurasidone Hcl 20 Mg Tab) 80 mg PO HS [facility] Stop: 01/17/24 21:59 Magnesium Hydroxide (Magnesium Hydroxide Susp 30 Ml Udc) 30 ml PO DAILY PRN PRN Reason: Constipation Stop: 01/14/24 22:05 Magnesium Oxide (Magnesium Oxide 400 Mg Tab) 400 mg PO DAILY [facility] Stop: 01/15/24 08:59 Last Admin: 12/17/23 08:32 Dose: 400 mg Metformin HCl (Metformin Hcl 500 Mg Tab) 1,000 mg PO BIDM [facility] Stop: 01/15/24 08:59 Last Admin: 12/17/23 08:32 Dose: 1,000 mg Miscellaneous (Semaglutide 1 Mg/Dose - Order Awaiting Action) 1 each N/A QS [facility] Stop: 01/15/24 07:59 Last Admin: 12/17/23 17:03 Dose: Not Given Montelukast Sodium (Montelukast Sodium 10 Mg Tablet) 10 mg PO HS [facility] Stop: 01/16/24 21:59 Nystatin (Nystatin Cr 15 Gm Tube) 1 appln EXT BID [facility] Stop: 01/14/24 20:59 Last Admin: 12/17/23 08:41 Dose: 1 appln Sodium Chloride (Sodium Chloride 0.65% Na Soln 45 Ml ([place])) 1 - 2 sprays NA PRN PRN PRN Reason: Nasal Dryness/Congestion Stop: 01/14/24 22:05 Trazodone HCl (Trazodone Hcl 100 Mg Tab) 150 mg PO HS JOSE Stop: 01/14/24 20:59 Last Admin: 12/16/23 21:14 Dose: 150 mg Venlafaxine HCl (Venlafaxine Hcl Xr 150 Mg Capxr) 300 mg PO DAILY [facility] Stop: 01/15/24 08:59 Last Admin: 12/17/23 08:33 Dose: 300 mg Vibegron (Vibegron 75 Mg Tab) 75 mg PO HS JOSE Stop: 01/16/24 21:59 Vitamin D (Cholecalciferol 25 Mcg (1000 Units) Tab) 25 mcg PO QAM [facility] Stop: 01/15/24 08:59 Last Admin: 12/17/23 08:32 Dose: 25 mcg Mental Health & Subst Abuse Tx Clinical Nurse Leader Name of Clinical Nurse Leader: Constantino Caban (5) Type 2 diabetes mellitus Diabetes mellitus prison insulin use: without prison use Diabetes mellitus complication status: without complication Qualified Code(s): E11.9 - Type 2 diabetes mellitus without complications (8) Hypothyroidism Hypothyroidism type: unspecified Qualified Code(s): E03.9 - Hypothyroidism, unspecified (9) Hypertension Hypertension type: essential hypertension Qualified Code(s): I10 - Essential (primary) hypertension (11) Asthma Asthma severity: unspecified severity Asthma persistence: unspecified Asthma complication type: uncomplicated Qualified Code(s): J45.909 - Unspecified asthma, uncomplicated
[2023-12-17] MEDS: MONTELUKAST SODIUM 10 MG TABLET PO SCH (20:41)
[2023-12-17] MEDS: lamoTRIgine 100 MG TAB PO SCH (20:41)
[2023-12-17] MEDS: VIBEGRON 75 MG TAB PO SCH (20:42)
--- NOTE | 2023-12-18 16:12 | Psychiatric Progress Note ---
Date of Service December 18, 2023 Impression / Recommendations Impression HOWIE HSU is a 53-year-old F who currently lives in alone, has a history of schizoaffective disorder, bipolar type, and was admitted on 12/15/23 21:40 on a 201 voluntary commitment for worsening auditory hallucinations of her mother instructing self harm. Patient continues to have command auditory hallucinations of mother's voice instructing self-harm. Appears to be chronic in nature with recent worsening. Patient cites benefit from TMS in the past and is a reasonable choice given polypharmacy and limited improvement with medications. Will explore outpatient options with social work. MNPR due to psychosis and paranoia Overall, I spent a total of 30 minutes with this case including review of chart records, nursing report, review of lab work, direct evaluation of the patient at bedside, counseling the patient, multidisciplinary team meeting, orders, and documentation in the electronic health record. (1) Suicidal ideation: (2) Auditory hallucinations: (3) Schizoaffective disorder, depressive type: (4) Cluster B personality disorder: (5) Type 2 diabetes mellitus: (6) Iron deficiency anemia: (7) Urinary incontinence: (8) Hypothyroidism: (9) Hypertension: (10) Dyslipidemia: (11) Asthma: (12) Gastro-esophageal reflux: (13) Obesity: Plan 12/18/2023: Continue medications and treatment plan. 12/17/2023: Continue medications and treatment plan. 12/16/2023: Medications reviewed with patient and adjusted. Afternoon Clozapine inc to 150mg. Blood draw frequency and ANC confirmed on REMs database. Plan to draw trough clozapine level. Inventory Assets Strengths: good insight into treatments, medication adherence Needs: social supports, emotional support Suicide Risk Level Suicide Risk Level: Moderate (q15 min suicide checks) Risk Factors Assessment Male: No : Yes Do You Have Access To A Gun?: No Health Problems: Yes Mental Health Diagnoses: Yes Substance Use Disorders: No Previous Attempt: No Family History of Suicide: No Previous Psychiatric Hospitalization: Yes Hopelessness: No Protective Factors Assessment Sikhism Beliefs: No : No Responsible for Young Children: No Employed: No Stable Relationships: Yes Supportive Family: Yes Good Rapport with Provider: Yes Absence of Any Risk Factors Above: No Interval History Identifying Information HOWIE HSU is a 53-year-old F who currently lives in alone, has a history of schizoaffective disorder, bipolar type, and was admitted on 12/15/23 21:40 on a 201 voluntary commitment for worsening auditory hallucinations of her mother instructing self harm. Chief Complaint "Okay" Review of Systems Sleep Information Total Hours of Sleep: 6.5 Sleep Comments: HS Tad and Tonezaarie Meal Information Percent Meal Consumed - Breakfast: 100 Percent Meal Consumed - Lunch: 100 Percent Meal Consumed - Dinner: 100 Subjective Subjective Patient was seen & assessed and interval progress reviewed with treatment team nursing and social work Attempted to call patient's brother however went to voice[employer]OSAF[employer] x 2. Patient reports intensive case management returned case inspector is visiting tomorrow. Reports having a long relationship with her. Rates voices the same as yesterday and distressing. Complains of suicidal ideation with no plan. We discussed TMS and she reports past success. Complains of agoraphobia and does not know how she is getting get to appointments. Believes she has to be off medications for TMS and reassured. Discussed dose increase of clozapine. Physical Exam Mental Examination Appearance: Unkempt (often looking down, loose clothing) Eye Contact: Fleeting Contact Motor Behavior: Unremarkable (slowed movements, uses walker) Speech: Soft Mood: Anxious Affect: Congruent and Constricted Thought Process: Intact and Linear Thought Content: Intact Hallucinations: Auditory and Command Insight: Fair Judgement: Fair Vital Signs (Past 24 Hours) Last Vital Signs Temp 35.4 C L 12/18/23 06:00 Pulse 88 12/18/23 06:26 Resp 16 12/18/23 06:00 BP 109/76 12/18/23 06:26 Pulse Ox 94 12/16/23 06:00 O2 Del Method Room Air 12/16/23 06:00 Results & Data ([facility]) Laboratory Results Laboratory Results - last 24 hr 12/18/23 06:13 POC Glucose 97 Current Inpatient Medications Current Inpatient Medications: Current Inpatient Medications Acetaminophen (Acetaminophen 325 Mg Tab) 650 mg PO Q4H PRN PRN Reason: Headache or Minor Fever Stop: 01/14/24 22:05 Al Hydrox/Mg Hydrox/Simethicone (Aluminum/Magnesium Susp 30 Ml Udc) 30 ml PO Q4H PRN PRN Reason: GI Upset Stop: 01/14/24 22:05 Atorvastatin Calcium (Atorvastatin 40 Mg Tab) 40 mg PO HS JOSE Stop: 01/14/24 20:59 Last Admin: 12/17/23 20:40 Dose: 40 mg Buspirone HCl (Buspirone 5 Mg Tab) 20 mg PO TID [facility] Stop: 01/14/24 20:59 Last Admin: 12/18/23 13:57 Dose: 20 mg Clonazepam (Clonazepam 0.5 Mg Tab) 0.5 mg PO TID [facility] Stop: 01/14/24 20:59 Last Admin: 12/18/23 13:58 Dose: 0.5 mg Clozapine (Clozapine 100 Mg Tab) 400 mg PO [facility]; Protocol Stop: 01/14/24 20:59 Last Admin: 12/17/23 20:40 Dose: 400 mg Clozapine (Clozapine 25 Mg Tab) 150 mg PO DAILY@1200 [facility]; Protocol Stop: 01/16/24 11:59 Last Admin: 12/18/23 12:09 Dose: 150 mg Cyanocobalamin (Cyanocobalamin (B-12) 500 Mcg Tablet) 2,000 mcg PO DAILY [facility] Stop: 01/15/24 08:59 Last Admin: 12/18/23 08:24 Dose: 2,000 mcg Ergocalciferol (Ergocalciferol 1250 Mcg (50,000 Units) Cap) 1,250 mcg PO Q30D [facility] Stop: 01/31/24 08:59 Estradiol (Estradiol 1 Mg Tab) 1 mg PO DAILY [facility] Stop: 01/15/24 08:59 Last Admin: 12/18/23 08:23 Dose: 1 mg Ferrous Sulfate (Ferrous Sulfate 325 Mg Tab) 325 mg PO QAM [facility] Stop: 01/15/24 08:59 Last Admin: 12/18/23 08:24 Dose: 325 mg Hydroxyzine HCl (Hydroxyzine Hcl 25 Mg Tab) 50 mg PO HSZ PRN PRN Reason: Insomnia Stop: 01/14/24 22:05 Hydroxyzine HCl (Hydroxyzine Hcl 25 Mg Tab) 25 mg PO Q4H PRN PRN Reason: Anxiety Stop: 01/14/24 22:05 Lamotrigine (Lamotrigine 100 Mg Tab) 200 mg PO [facility]; Protocol Stop: 01/16/24 21:59 Last Admin: 12/17/23 20:41 Dose: 200 mg Levothyroxine Sodium (Levothyroxine Sodium 125 Mcg Tablet) 125 mcg PO DAILYBB [facility] Stop: 01/15/24 07:59 Last Admin: 12/18/23 08:24 Dose: 125 mcg Losartan Potassium (Losartan Potassium 50 Mg Tab) 50 mg PO QAM [facility] Stop: 01/15/24 08:59 Last Admin: 12/18/23 08:24 Dose: 50 mg Lurasidone HCl (Lurasidone Hcl 20 Mg Tab) 80 mg PO HS JOSE Stop: 01/17/24 21:59 Magnesium Hydroxide (Magnesium Hydroxide Susp 30 Ml Udc) 30 ml PO DAILY PRN PRN Reason: Constipation Stop: 01/14/24 22:05 Magnesium Oxide (Magnesium Oxide 400 Mg Tab) 400 mg PO DAILY [facility] Stop: 01/15/24 08:59 Last Admin: 12/18/23 08:23 Dose: 400 mg Metformin HCl (Metformin Hcl 500 Mg Tab) 1,000 mg PO BIDM [facility] Stop: 01/15/24 08:59 Last Admin: 12/18/23 08:24 Dose: 1,000 mg Montelukast Sodium (Montelukast Sodium 10 Mg Tablet) 10 mg PO HS [facility] Stop: 01/16/24 21:59 Last Admin: 12/17/23 20:41 Dose: 10 mg Nystatin (Nystatin Cr 15 Gm Tube) 1 appln EXT BID [facility] Stop: 01/14/24 20:59 Last Admin: 12/18/23 08:26 Dose: 1 appln Sodium Chloride (Sodium Chloride 0.65% Na Soln 45 Ml ([place])) 1 - 2 sprays NA PRN PRN PRN Reason: Nasal Dryness/Congestion Stop: 01/14/24 22:05 Trazodone HCl (Trazodone Hcl 100 Mg Tab) 150 mg PO HS JOSE Stop: 01/14/24 20:59 Last Admin: 12/17/23 20:42 Dose: 150 mg Venlafaxine HCl (Venlafaxine Hcl Xr 150 Mg Capxr) 300 mg PO DAILY [facility] Stop: 01/15/24 08:59 Last Admin: 12/18/23 08:23 Dose: 300 mg Vibegron (Vibegron 75 Mg Tab) 75 mg PO HS JOSE Stop: 01/16/24 21:59 Last Admin: 12/17/23 20:42 Dose: 75 mg Vitamin D (Cholecalciferol 25 Mcg (1000 Units) Tab) 25 mcg PO QAM [facility] Stop: 01/15/24 08:59 Last Admin: 12/18/23 08:24 Dose: 25 mcg Mental Health & Subst Abuse Tx Psychiatrist Name of Psychiatrist: Abdulkadir Rodriguez Psychiatrist's Date Of Appointment With Psychiatric Provider: 12/30/23 Time of Appointment with Psychiatrist: 10:00 AM Psychiatric Appointment Comment: [address], [place] [address] Equipment Application Specialist Name of Equipment Application Specialist: Constantino Caban Post Discharge Appointments Primary Care Physician Name Of Family Doctor/PCP: JESSIE Tam Primary Care Provider Appointment Comment: [address], [place] [address] Specialist Name of Specialist: Abdulkadir HUDDLESTON Phone Number for Specialist: Specialty Appointment Comment: [address], [place] [address] (5) Type 2 diabetes mellitus Diabetes mellitus halfway insulin use: without joint terminal attack controller use Diabetes leisa itus complication status: without complication Qualified Code(s): E11.9 - Type 2 diabetes mellitus without complications (8) Hypothyroidism Hypothyroidism type: unspecified Qualified Code(s): E03.9 - Hypothyroidism, unspecified (9) Hypertension Hypertension type: essential hypertension Qualified Code(s): I10 - Essential (primary) hypertension (11) Asthma Asthma severity: unspecified severity Asthma persistence: unspecified Asthma complication type: uncomplicated Qualified Code(s): J45.909 - Unspecified asthma, uncomplicated
[2023-12-18 17:23] LABS: MDA negative; MDEA negative; MDMA (Ecstasy) Urine, Confirm negative
[2023-12-18] MEDS: LURASIDONE HCL 20 MG TAB PO SCH (21:18)
--- NOTE | 2023-12-19 15:25 | Psychiatric Progress Note ---
Date of Service December 19, 2023 Impression / Recommendations Impression HOWIE HSU is a 53-year-old F who currently lives in alone, has a history of schizoaffective disorder, bipolar type, and was admitted on 12/15/23 21:40 on a 201 voluntary commitment for worsening auditory hallucinations of her mother instructing self harm. Patient experiencing chronic AH of mother instructing self harm. Patient appears suspicious and often presents with catastrophic thinking. Clarified psychosis symptoms today. Plan to increase nightly clozaril. MNPR due to psychosis and paranoia Overall, I spent a total of 30 minutes with this case including review of chart records, nursing report, review of lab work, direct evaluation of the patient at bedside, counseling the patient, multidisciplinary team meeting, orders, and documentation in the electronic health record. (1) Suicidal ideation: (2) Auditory hallucinations: (3) Schizoaffective disorder, depressive type: (4) Cluster B personality disorder: (5) Type 2 diabetes mellitus: (6) Iron deficiency anemia: (7) Urinary incontinence: (8) Hypothyroidism: (9) Hypertension: (10) Dyslipidemia: (11) Asthma: (12) Gastro-esophageal reflux: (13) Obesity: Plan 12/19/2023: Increase Clozaril bedtime dose to 450mg. 12/18/2023: Continue medications and treatment plan. 12/17/2023: Continue medications and treatment plan. 12/16/2023: Medications reviewed with patient and adjusted. Afternoon Clozapine inc to 150mg. Blood draw frequency and ANC confirmed on REMs database. Plan to draw trough clozapine level. Inventory Assets Strengths: good insight into treatments, medication adherence Needs: social supports, emotional support Suicide Risk Level Suicide Risk Level: Moderate (q15 min suicide checks) Risk Factors Assessment Male: No : Yes Do You Have Access To A Gun?: No Health Problems: Yes Mental Health Diagnoses: Yes Substance Use Disorders: No Previous Attempt: No Family History of Suicide: No Previous Psychiatric Hospitalization: Yes Hopelessness: No Protective Factors Assessment Protestant Beliefs: No : No Responsible for Young Children: No Employed: No Stable Relationships: Yes Supportive Family: Yes Good Rapport with Provider: Yes Absence of Any Risk Factors Above: No Interval History Identifying Information HOWIE HSU is a 53-year-old F who currently lives in alone, has a history of schizoaffective disorder, bipolar type, and was admitted on 12/15/23 21:40 on a 201 voluntary commitment for worsening auditory hallucinations of her mother instructing self harm. Chief Complaint "paranoid" Review of Systems Sleep Information Total Hours of Sleep: 6.5 Sleep Comments: HS Tad and Charity Meal Information Percent Meal Consumed - Breakfast: 100 Percent Meal Consumed - Lunch: 100 Percent Meal Consumed - Dinner: 75 Subjective Subjective Patient was seen & assessed and interval progress reviewed with treatment team nursing and social work Reports sleeping well overnight. We discuss progression of voices and reports in 8th grade switched from grandfather to mother's voice. Reports having a good relationship with mother and grandfather. Says voices of mother more negative. C/o 'paranoia' that worsens with depression. Feels "hopeful" about the future. C/o occasional dissociation where she feels unconnected from her body. Reluctant to try TMS citing they had to d/c all her meds temporarily; reassured. Denies olfactory or tactile hallucinations. C/o SI with no plan. Requesting regular diet. Physical Exam Mental Examination Appearance: Unkempt (often looking down, loose clothing) Eye Contact: Fleeting Contact Motor Behavior: Unremarkable (slowed movements, uses walker) Speech: Soft Mood: Anxious Affect: Congruent and Constricted Thought Process: Intact and Linear Thought Content: Intact Hallucinations: Auditory and Command Insight: Fair Judgement: Fair Vital Signs (Past 24 Hours) Last Vital Signs Temp 35.4 C L 12/18/23 06:00 Pulse 88 12/18/23 06:26 Resp 16 12/18/23 06:00 BP 109/76 12/18/23 06:26 Pulse Ox 94 12/16/23 06:00 O2 Del Method Room Air 12/16/23 06:00 Results & Data ([facility]) Laboratory Results Laboratory Results - last 24 hr 12/15/23 12/19/23 10:40 06:23 POC Glucose Pending Urine MDEA negative MDMA negative Urine MDMA negative Current Inpatient Medications Current Inpatient Medications: Current Inpatient Medications Acetaminophen (Acetaminophen 325 Mg Tab) 650 mg PO Q4H PRN PRN Reason: Headache or Minor Fever Stop: 01/14/24 22:05 Al Hydrox/Mg Hydrox/Simethicone (Aluminum/Magnesium Susp 30 Ml Udc) 30 ml PO Q4H PRN PRN Reason: GI Upset Stop: 01/14/24 22:05 Atorvastatin Calcium (Atorvastatin 40 Mg Tab) 40 mg PO HS [facility] Stop: 01/14/24 20:59 Last Admin: 12/18/23 21:15 Dose: 40 mg Buspirone HCl (Buspirone 5 Mg Tab) 20 mg PO TID [facility] Stop: 01/14/24 20:59 Last Admin: 12/18/23 21:14 Dose: 20 mg Clonazepam (Clonazepam 0.5 Mg Tab) 0.5 mg PO TID [facility] Stop: 01/14/24 20:59 Last Admin: 12/18/23 21:23 Dose: 0.5 mg Clozapine (Clozapine 25 Mg Tab) 150 mg PO DAILY@1200 [facility]; Protocol Stop: 01/16/24 11:59 Last Admin: 12/18/23 12:09 Dose: 150 mg Clozapine (Clozapine 100 Mg Tab) 450 mg PO HS [facility]; Protocol Stop: 01/18/24 21:59 Cyanocobalamin (Cyanocobalamin (B-12) 500 Mcg Tablet) 2,000 mcg PO DAILY [facility] Stop: 01/15/24 08:59 Last Admin: 12/18/23 08:24 Dose: 2,000 mcg Ergocalciferol (Ergocalciferol 1250 Mcg (50,000 Units) Cap) 1,250 mcg PO Q30D [facility] Stop: 01/31/24 08:59 Estradiol (Estradiol 1 Mg Tab) 1 mg PO DAILY [facility] Stop: 01/15/24 08:59 Last Admin: 12/18/23 08:23 Dose: 1 mg Ferrous Sulfate (Ferrous Sulfate 325 Mg Tab) [facility] Stop: 01/15/24 08:59 Last Admin: 12/18/23 08:24 Dose: 325 mg Hydroxyzine HCl (Hydroxyzine Hcl 25 Mg Tab) 50 mg PO HSZ PRN PRN Reason: Insomnia Stop: 01/14/24 22:05 Hydroxyzine HCl (Hydroxyzine Hcl 25 Mg Tab) 25 mg PO Q4H PRN PRN Reason: Anxiety Stop: 01/14/24 22:05 Lamotrigine (Lamotrigine 100 Mg Tab) 200 mg PO HS [facility]; Protocol Stop: 01/16/24 21:59 Last Admin: 12/18/23 21:17 Dose: 200 mg Levothyroxine Sodium (Levothyroxine Sodium 125 Mcg Tablet) 125 mcg PO DAILYBB [facility] Stop: 01/15/24 07:59 Last Admin: 12/18/23 08:24 Dose: 125 mcg Losartan Potassium (Losartan Potassium 50 Mg Tab) 50 mg PO QAM [facility] Stop: 01/15/24 08:59 Last Admin: 12/18/23 08:24 Dose: 50 mg Lurasidone HCl (Lurasidone Hcl 20 Mg Tab) 80 mg PO DAILYBD [facility] Stop: 01/18/24 17:14 Magnesium Hydroxide (Magnesium Hydroxide Susp 30 Ml Udc) 30 ml PO DAILY PRN PRN Reason: Constipation Stop: 01/14/24 22:05 Magnesium Oxide (Magnesium Oxide 400 Mg Tab) 400 mg PO DAILY [facility] Stop: 01/15/24 08:59 Last Admin: 12/18/23 08:23 Dose: 400 mg Metformin HCl (Metformin Hcl 500 Mg Tab) 1,000 mg PO BIDM [facility] Stop: 01/15/24 08:59 Last Admin: 12/18/23 17:11 Dose: 1,000 mg Montelukast Sodium (Montelukast Sodium 10 Mg Tablet) 10 mg PO HS [facility]SE Stop: 01/16/24 21:59 Last Admin: 12/18/23 21:19 Dose: 10 mg Nystatin (Nystatin Cr 15 Gm Tube) 1 appln EXT BID [facility] Stop: 01/14/24 20:59 Last Admin: 12/18/23 21:14 Dose: 1 appln Sodium Chloride (Sodium Chloride 0.65% Na Soln 45 Ml ([place])) 1 - 2 sprays NA PRN PRN PRN Reason: Nasal Dryness/Congestion Stop: 01/14/24 22:05 Trazodone HCl (Trazodone Hcl 100 Mg Tab) 150 mg PO HS JOSE Stop: 01/14/24 20:59 Last Admin: 12/18/23 21:19 Dose: 150 mg Venlafaxine HCl (Venlafaxine Hcl Xr 150 Mg Capxr) 300 mg PO DAILY [facility] Stop: 01/15/24 08:59 Last Admin: 12/18/23 08:23 Dose: 300 mg Vibegron (Vibegron 75 Mg Tab) 75 mg PO HS [facility] Stop: 01/16/24 21:59 Last Admin: 12/18/23 21:20 Dose: 75 mg Vitamin D (Cholecalciferol 25 Mcg (1000 Units) Tab) 25 mcg PO QAM [facility] Stop: 01/15/24 08:59 Last Admin: 12/18/23 08:24 Dose: 25 mcg Mental Health & Subst Abuse Tx Psychiatrist Name of Psychiatrist: Abdulkadir Rodriguez Psychiatrist's Date Of Appointment With Psychiatric Provider: 12/30/23 Time of Appointment with Psychiatrist: 10:00 AM Psychiatric Appointment Comment: [address], [place] [address] Baker Operator Automatic Name of Baker Operator Automatic: Constantino Caban Phone Number for Baker Operator Automatic: [phone] Date of Appointment with Baker Operator Automatic: 12/26/23 Case Management Appointment Comment: Sees every Friday Post Discharge Appointments Primary Care Physician Name Of Family Doctor/PCP: JESSIE Tam Primary Care Provider Appointment Comment: [address], [place] [address] Specialist Name of Specialist: Abdulkadir HUDDLESTON Phone Number for Specialist: Specialty Appointment Comment: [address], [place] [address] (5) Type 2 diabetes mellitus Diabetes mellitus group home insulin use: without group home use Diabetes mellitus complication status: without complication Qualified Code(s): E11.9 - Type 2 diabetes mellitus without complications (8) Hypothyroidism Hypothyroidism type: unspecified Qualified Code(s): E03.9 - Hypothyroidism, unspecified (9) Hypertension Hypertension type: essential hypertension Qualified Code(s): I10 - Essential (primary) hypertension (11) Asthma Asthma severity: unspecified severity Asthma persistence: unspecified Asthma complication type: uncomplicated Qualified Code(s): J45.909 - Unspecified asthma, uncomplicated
[2023-12-19] MEDS: LURASIDONE HCL 20 MG TAB PO SCH (17:16)
[2023-12-19] MEDS: cloZAPine 100 MG TAB PO SCH (21:19)
--- NOTE | 2023-12-20 08:46 | Psychiatric Progress Note ---
Date of Service December 20, 2023 Impression / Recommendations Impression HOWIE HSU is a 53-year-old F who currently lives in alone, has a history of schizoaffective disorder, bipolar type, and was admitted on 12/15/23 21:40 on a 201 voluntary commitment for worsening auditory hallucinations of her mother instructing self harm. Diagnostically consistent with acute exacerbation of schizoaffective disorder with depression. A: Ongoing command AH which are causing SI but no plan or intent and feels safe in the hospital. Tolerating increased clozapine so far. MNPR due to psychosis and paranoia Overall, I spent a total of 35 minutes with this case including review of chart records, nursing report, review of lab work, direct evaluation of the patient at bedside, counseling the patient, multidisciplinary team meeting, orders, and documentation in the electronic health record. (1) Suicidal ideation: (2) Auditory hallucinations: (3) Schizoaffective disorder, depressive type: (4) Cluster B personality disorder: (5) Type 2 diabetes mellitus: (6) Iron deficiency anemia: (7) Urinary incontinence: (8) Hypothyroidism: (9) Hypertension: (10) Dyslipidemia: (11) Asthma: (12) Gastro-esophageal reflux: (13) Obesity: Plan 12/20/2023: Continue current medications and tx plan. 12/19/2023: Increase Clozaril bedtime dose to 450mg. 12/18/2023: Continue medications and treatment plan. 12/17/2023: Continue medications and treatment plan. 12/16/2023: Medications reviewed with patient and adjusted. Afternoon Clozapine inc to 150mg. Blood draw frequency and ANC confirmed on REMs database. Plan to draw trough clozapine level. Inventory Assets Strengths: good insight into treatments, medication adherence Needs: social supports, emotional support Suicide Risk Level Suicide Risk Level: High-Moderate (q15 min suicide checks) (command AH telling her to harm herself and SI but feels safe in the hospital, feels able to ask for support when she needs it) Risk Factors Assessment Male: No : Yes Do You Have Access To A Gun?: No Health Problems: Yes Mental Health Diagnoses: Yes Substance Use Disorders: No Previous Attempt: No Family History of Suicide: No Previous Psychiatric Hospitalization: Yes Hopelessness: No Protective Factors Assessment Sabianist Beliefs: No : No Responsible for Young Children: No Employed: No Stable Relationships: Yes Supportive Family: Yes Good Rapport with Provider: Yes Absence of Any Risk Factors Above: No Interval History Identifying Information HOWIE HSU is a 53-year-old F who currently lives in alone, has a history of schizoaffective disorder, bipolar type, and was admitted on 12/15/23 21:40 on a 201 voluntary commitment for worsening auditory hallucinations of her mother instructing self harm. Chief Complaint "doing ok". Review of Systems Sleep Information Total Hours of Sleep: 9 Sleep Comments: HS scheduled Buspar, Klonopin and Trazadone Meal Information Percent Meal Consumed - Breakfast: 100 Percent Meal Consumed - Lunch: 100 Percent Meal Consumed - Dinner: 100 Subjective Subjective Patient was seen & assessed and interval progress reviewed with treatment team nursing and social work. Attending groups, did laundry yesterday and showered. Talked to brother on the phone who she found supportive. Today continues to have auditory hallucinations, requests prn haldol for this. Ongoing SI. Denies any side effects from higher dose of Clozaril. Physical Exam Psychiatric Orientation: alert and oriented x 3 Apperance: + disheveled Eye Contact: + fair eye contact Motor Behavior: no abnormal motor movements Speech: normal rate/rhythm/volume of speech Affect: + flat affect Mood: + depressed mood and + anxious mood Thought Process: + circumstantial thought process Thought Content: + preoccupation Suicidal Thoughts: denies suicidal plan; + reports suicidal thoughts Homicidal Thoughts: denies homicidal thoughts Hallucinations: + auditory hallucinations (command to hurt herself, voice of her mother) Insight: + fair insight Judgment: + fair judgement Vital Signs (Past 24 Hours) Last Vital Signs Temp 36.2 C L 12/20/23 06:46 Pulse 82 12/20/23 06:46 Resp 18 12/20/23 06:46 BP 97/63 L 12/20/23 06:48 Pulse Ox 95 12/20/23 06:46 O2 Del Method Room Air 12/20/23 06:46 Results & Data ([facility]) Laboratory Results Laboratory Results - last 24 hr 12/19/23 12/20/23 06:23 06:33 POC Glucose 118 H 91 Current Inpatient Medications Current Inpatient Medications: Current Inpatient Medications Acetaminophen (Acetaminophen 325 Mg Tab) 650 mg PO Q4H PRN PRN Reason: Headache or Minor Fever Stop: 01/14/24 22:05 Al Hydrox/Mg Hydrox/Simethicone (Aluminum/Magnesium Susp 30 Ml Udc) 30 ml PO Q4H PRN PRN Reason: GI Upset Stop: 01/14/24 22:05 Atorvastatin Calcium (Atorvastatin 40 Mg Tab) 40 mg PO HS [facility] Stop: 01/14/24 20:59 Last Admin: 12/19/23 21:18 Dose: 40 mg Buspirone HCl (Buspirone 5 Mg Tab) 20 mg PO TID JOSE Stop: 01/14/24 20:59 Last Admin: 12/19/23 21:13 Dose: 20 mg Clonazepam (Clonazepam 0.5 Mg Tab) 0.5 mg PO TID JOSE Stop: 01/14/24 20:59 Last Admin: 12/19/23 21:16 Dose: 0.5 mg Clozapine (Clozapine 25 Mg Tab) 150 mg PO DAILY@1200 JOSE; Protocol Stop: 01/16/24 11:59 Last Admin: 12/19/23 12:00 Dose: 150 mg Clozapine (Clozapine 100 Mg Tab) 450 mg PO HS [facility]; Protocol Stop: 01/18/24 21:59 Last Admin: 12/19/23 21:19 Dose: 450 mg Cyanocobalamin (Cyanocobalamin (B-12) 500 Mcg Tablet) 2,000 mcg PO DAILY [facility] Stop: 01/15/24 08:59 Last Admin: 12/19/23 09:00 Dose: 2,000 mcg Ergocalciferol (Ergocalciferol 1250 Mcg (50,000 Units) Cap) 1,250 mcg PO Q30D [facility] Stop: 01/31/24 08:59 Estradiol (Estradiol 1 Mg Tab) 1 mg PO DAILY JOSE Stop: 01/15/24 08:59 Last Admin: 12/19/23 09:00 Dose: 1 mg Ferrous Sulfate (Ferrous Sulfate 325 Mg Tab) 325 mg PO QAM [facility] Stop: 01/15/24 08:59 Last Admin: 12/19/23 09:00 Dose: 325 mg Haloperidol (Haloperidol 1 Mg Tab) 2.5 mg PO BID PRN PRN Reason: psychosis Stop: 01/18/24 16:04 Hydroxyzine HCl (Hydroxyzine Hcl 25 Mg Tab) 50 mg PO HSZ PRN PRN Reason: Insomnia Stop: 01/14/24 22:05 Hydroxyzine HCl (Hydroxyzine Hcl 25 Mg Tab) 25 mg PO Q4H PRN PRN Reason: Anxiety Stop: 01/14/24 22:05 Lamotrigine (Lamotrigine 100 Mg Tab) 200 mg PO [facility]; Protocol Stop: 01/16/24 21:59 Last Admin: 12/19/23 21:17 Dose: 200 mg Levothyroxine Sodium (Levothyroxine Sodium 125 Mcg Tablet) 125 mcg PO DAILYBB [facility] Stop: 01/15/24 07:59 Last Admin: 12/20/23 07:42 Dose: 125 mcg Losartan Potassium (Losartan Potassium 50 Mg Tab) 50 mg PO QAM JOSE Stop: 01/15/24 08:59 Last Admin: 12/19/23 09:00 Dose: 50 mg Lurasidone HCl (Lurasidone Hcl 20 Mg Tab) 80 mg PO DAILYBD [facility] Stop: 01/18/24 17:14 Last Admin: 12/19/23 17:16 Dose: 80 mg Magnesium Hydroxide (Magnesium Hydroxide Susp 30 Ml Udc) 30 ml PO DAILY PRN PRN Reason: Constipation Stop: 01/14/24 22:05 Magnesium Oxide (Magnesium Oxide 400 Mg Tab) 400 mg PO DAILY [facility] Stop: 01/15/24 08:59 Last Admin: 12/19/23 09:00 Dose: 400 mg Metformin HCl (Metformin Hcl 500 Mg Tab) 1,000 mg PO BIDM [facility] Stop: 01/15/24 08:59 Last Admin: 12/19/23 09:00 Dose: 1,000 mg Montelukast Sodium (Montelukast Sodium 10 Mg Tablet) 10 mg PO [facility] Stop: 01/16/24 21:59 Last Admin: 12/19/23 21:17 Dose: 10 mg Nystatin (Nystatin Cr 15 Gm Tube) 1 appln EXT BID [facility] Stop: 01/14/24 20:59 Last Admin: 12/19/23 21:24 Dose: Not Given Sodium Chloride (Sodium Chloride 0.65% Na Soln 45 Ml ([place])) 1 - 2 sprays NA PRN PRN PRN Reason: Nasal Dryness/Congestion Stop: 01/14/24 22:05 Trazodone HCl (Trazodone Hcl 100 Mg Tab) 150 mg PO HS [facility] Stop: 01/14/24 20:59 Last Admin: 12/19/23 21:11 Dose: 150 mg Venlafaxine HCl (Venlafaxine Hcl Xr 150 Mg Capxr) 300 mg PO DAILY JOSE Stop: 01/15/24 08:59 Last Admin: 12/19/23 09:00 Dose: 300 mg Vibegron (Vibegron 75 Mg Tab) 75 mg PO HS JOSE Stop: 01/16/24 21:59 Last Admin: 12/19/23 21:16 Dose: 75 mg Vitamin D (Cholecalciferol 25 Mcg (1000 Units) Tab) 25 mcg PO QAM [facility] Stop: 01/15/24 08:59 Last Admin: 12/19/23 09:00 Dose: 25 mcg Mental Health & Subst Abuse Tx Psychiatrist Name of Psychiatrist: Abdulkadir Rodriguez Psychiatrist's Date Of Appointment With Psychiatric Provider: 12/30/23 Time of Appointment with Psychiatrist: 10:00 AM Psychiatric Appointment Comment: [address], [place] [address] Broker In Charge Name of Broker In Charge: Constantino Caban Phone Number for Broker In Charge: [phone] Date of Appointment with Broker In Charge: 12/26/23 Case Management Appointment Comment: Sees every Friday Post Discharge Appointments Primary Care Physician Name Of Family Doctor/PCP: JESSIE Tam Primary Care Provider Appointment Comment: [address], [place] [address] Specialist Name of Specialist: Abdulkadir HUDDLESTON Phone Number for Specialist: Specialty Appointment Comment: [address], [place] [address] (5) Type 2 diabetes mellitus Diabetes mellitus complication status: without complication Diabetes mellitus ocean transportation intermediary insulin use: without longterm use Qualified Code(s): E11.9 - Type 2 diabetes mellitus without complications (8) Hypothyroidism Hypothyroidism type: unspecified Qualified Code(s): E03.9 - Hypothyroidism, unspecified (9) Hypertension Hypertension type: essential hypertension Qualified Code(s): I10 - Essential (primary) hypertension (11) Asthma Asthma complication type: uncomplicated Asthma persistence: unspecified Asthma severity: unspecified severity Qualified Code(s): J45.909 - Unspecified asthma, uncomplicated
[2023-12-20] MEDS: cloZAPine 100 MG TAB PO SCH (12:12)
[2023-12-20] MEDS: haloperidoL 1 MG TAB PO PRN (14:11)
--- NOTE | 2023-12-21 09:05 | Psychiatric Progress Note ---
Date of Service December 21, 2023 Impression / Recommendations Impression HOWIE HSU is a 53-year-old F who currently lives in alone, has a history of schizoaffective disorder, bipolar type, and was admitted on 12/15/23 21:40 on a 201 voluntary commitment for worsening auditory hallucinations of her mother instructing self harm. Diagnostically consistent with acute exacerbation of schizoaffective disorder with depression. A: Voices significantly lessened today and with it her mood is improving and denies SI today. She wonders about medication adjustments, reviewed and reasonable. Given her more frequent use of prn haldol discussed concerns about her being on three antipsychotic medications. She would like to try tapering the Latuda to see if haldol and the increased clozapine continue to be beneficial. She also requests adjusting clozapine dosing so that she won't have to take a 50mg tab size at home and she worries this will make adherence more difficult. MNPR due to psychosis and AH Overall, I spent a total of 25 minutes with this case including review of chart records, nursing report, review of lab work, direct evaluation of the patient at bedside, counseling the patient, multidisciplinary team meeting, orders, and documentation in the electronic health record. (1) Suicidal ideation: (2) Auditory hallucinations: (3) Schizoaffective disorder, depressive type: (4) Cluster B personality disorder: (5) Type 2 diabetes mellitus: (6) Iron deficiency anemia: (7) Urinary incontinence: (8) Hypothyroidism: (9) Hypertension: (10) Dyslipidemia: (11) Asthma: (12) Gastro-esophageal reflux: (13) Obesity: Plan 12/21/2023: Increase haldol to 3mg BID prn for auditory hallucinations/psychosis. Adjust clozapine starting tomorrow to 100mg qafternoon and 500mg HS. Decrease Latuda to 60mg qdinner. 12/20/2023: Continue current medications and tx plan. 12/19/2023: Increase Clozaril bedtime dose to 450mg. 12/18/2023: Continue medications and treatment plan. 12/17/2023: Continue medications and treatment plan. 12/16/2023: Medications reviewed with patient and adjusted. Afternoon Clozapine inc to 150mg. Blood draw frequency and ANC confirmed on REMs database. Plan to draw trough clozapine level. 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 but now lessening, denies SI, feels safe in the hospital, feels able to ask for support when she needs it) Risk Factors Assessment Male: No : Yes Do You Have Access To A Gun?: No Health Problems: Yes Mental Health Diagnoses: Yes Substance Use Disorders: No Previous Attempt: No Family History of Suicide: No Previous Psychiatric Hospitalization: Yes Hopelessness: No Protective Factors Assessment Synagogue Beliefs: No : No Responsible for Young Children: No Employed: No Stable Relationships: Yes Supportive Family: Yes Good Rapport with Provider: Yes Absence of Any Risk Factors Above: No Interval History Identifying Information HOWIE HSU is a 53-year-old F who currently lives in alone, has a history of schizoaffective disorder, bipolar type, and was admitted on 12/15/23 21:40 on a 201 voluntary commitment for worsening auditory hallucinations of her mother instructing self harm. Chief Complaint "I really like the haldol". Review of Systems Sleep Information Total Hours of Sleep: 9 Sleep Comments: HS Klonopin, Buspar and Trazadone Meal Information Percent Meal Consumed - Breakfast: 100 Percent Meal Consumed - Lunch: 75 Percent Meal Consumed - Dinner: 100 Subjective Subjective Patient was seen & assessed and interval progress reviewed with treatment team nursing and social work. Attending groups. Feeling "numb". Having auditory hallucinations in the evening and this morning and finding prn haldol very helpful. Today reports improvement in AH which she attributes to the haldol. Less SI due to lessening of AH. She reviews concerns about medication adherence if she has to cut pills at home, wonders about increasing the haldol prn dose and reducing Latuda and then adjusting dosages of clozapine. Denies any side effects from medications. Physical Exam Psychiatric Orientation: alert and oriented x 3 Apperance: appropriately dressed and appropriately groomed Eye Contact: + fair eye contact Motor Behavior: no abnormal motor movements Speech: normal rate/rhythm/volume of speech Affect: + constricted affect (a few smiles today) Mood: + anxious mood Thought Process: + circumstantial thought process Thought Content: + preoccupation Suicidal Thoughts: denies suicidal thoughts and denies suicidal plan Homicidal Thoughts: denies homicidal thoughts Hallucinations: + auditory hallucinations (lessened today) Insight: + fair insight Judgment: + fair judgement Vital Signs (Past 24 Hours) Last Vital Signs Temp 36.9 C 12/21/23 06:37 Pulse 88 12/21/23 06:37 Resp 16 12/21/23 06:37 BP 104/69 12/21/23 06:40 Pulse Ox 95 12/21/23 06:37 O2 Del Method Room Air 12/21/23 06:37 Results & Data ([facility]) Laboratory Results Laboratory Results - last 24 hr 12/21/23 06:35 POC Glucose 105 H Current Inpatient Medications Current Inpatient Medications: Current Inpatient Medications Acetaminophen (Acetaminophen 325 Mg Tab) 650 mg PO Q4H PRN PRN Reason: Headache or Minor Fever Stop: 01/14/24 22:05 Al Hydrox/Mg Hydrox/Simethicone (Aluminum/Magnesium Susp 30 Ml Udc) 30 ml PO Q4H PRN PRN Reason: GI Upset Stop: 01/14/24 22:05 Atorvastatin Calcium (Atorvastatin 40 Mg Tab) 40 mg PO HS [facility] Stop: 01/14/24 20:59 Last Admin: 12/20/23 20:41 Dose: 40 mg Buspirone HCl (Buspirone 5 Mg Tab) 20 mg PO TID [facility] Stop: 01/14/24 20:59 Last Admin: 12/21/23 08:39 Dose: 20 mg Clonazepam (Clonazepam 0.5 Mg Tab) 0.5 mg PO TID [facility] Stop: 01/14/24 20:59 Last Admin: 12/21/23 08:42 Dose: 0.5 mg Clozapine (Clozapine 100 Mg Tab) 450 mg PO HS [facility]; Protocol Stop: 01/18/24 21:59 Last Admin: 12/20/23 20:44 Dose: 450 mg Clozapine (Clozapine 100 Mg Tab) 150 mg PO DAILY@1200 [facility]; Protocol Stop: 01/19/24 11:59 Last Admin: 12/20/23 12:12 Dose: 150 mg Cyanocobalamin (Cyanocobalamin (B-12) 500 Mcg Tablet) 2,000 mcg PO DAILY [facility] Stop: 01/15/24 08:59 Last Admin: 12/21/23 08:40 Dose: 2,000 mcg Ergocalciferol (Ergocalciferol 1250 Mcg (50,000 Units) Cap) 1,250 mcg PO Q30D [facility] Stop: 01/31/24 08:59 Estradiol (Estradiol 1 Mg Tab) 1 mg PO DAILY [facility] Stop: 01/15/24 08:59 Last Admin: 12/21/23 08:40 Dose: 1 mg Ferrous Sulfate (Ferrous Sulfate 325 Mg Tab) 325 mg PO QAM [facility] Stop: 01/15/24 08:59 Last Admin: 12/21/23 08:40 Dose: 325 mg Haloperidol (Haloperidol 1 Mg Tab) 2.5 mg PO BID PRN PRN Reason: psychosis Stop: 01/18/24 16:04 Last Admin: 12/21/23 07:19 Dose: 2.5 mg Hydroxyzine HCl (Hydroxyzine Hcl 25 Mg Tab) 50 mg PO HSZ PRN PRN Reason: Insomnia Stop: 01/14/24 22:05 Hydroxyzine HCl (Hydroxyzine Hcl 25 Mg Tab) 25 mg PO Q4H PRN PRN Reason: Anxiety Stop: 01/14/24 22:05 Lamotrigine (Lamotrigine 100 Mg Tab) 200 mg PO HS [facility]; Protocol Stop: 01/16/24 21:59 Last Admin: 12/20/23 20:45 Dose: 200 mg Levothyroxine Sodium (Levothyroxine Sodium 125 Mcg Tablet) 125 mcg PO DAILYBB [facility] Stop: 01/15/24 07:59 Last Admin: 12/21/23 07:21 Dose: 125 mcg Losartan Potassium (Losartan Potassium 50 Mg Tab) 50 mg PO QAM [facility] Stop: 01/15/24 08:59 Last Admin: 12/21/23 08:40 Dose: 50 mg Lurasidone HCl (Lurasidone Hcl 20 Mg Tab) 80 mg PO DAILYBD [facility] Stop: 01/18/24 17:14 Last Admin: 12/20/23 17:08 Dose: 80 mg Magnesium Hydroxide (Magnesium Hydroxide Susp 30 Ml Udc) 30 ml PO DAILY PRN PRN Reason: Constipation Stop: 01/14/24 22:05 Magnesium Oxide (Magnesium Oxide 400 Mg Tab) 400 mg PO DAILY [facility] Stop: 01/15/24 08:59 Last Admin: 12/21/23 08:41 Dose: 400 mg Metformin HCl (Metformin Hcl 500 Mg Tab) 1,000 mg PO BIDM [facility] Stop: 01/15/24 08:59 Last Admin: 12/21/23 08:41 Dose: 1,000 mg Montelukast Sodium (Montelukast Sodium 10 Mg Tablet) 10 mg PO HS [facility] Stop: 01/16/24 21:59 Last Admin: 12/20/23 20:46 Dose: 10 mg Nystatin (Nystatin Cr 15 Gm Tube) 1 appln EXT BID [facility] Stop: 01/14/24 20:59 Last Admin: 12/21/23 08:41 Dose: 1 appln Sodium Chloride (Sodium Chloride 0.65% Na Soln 45 Ml ([place])) 1 - 2 sprays NA PRN PRN PRN Reason: Nasal Dryness/Congestion Stop: 01/14/24 22:05 Trazodone HCl (Trazodone Hcl 100 Mg Tab) 150 mg PO HS [facility] Stop: 01/14/24 20:59 Last Admin: 12/20/23 20:46 Dose: 150 mg Venlafaxine HCl (Venlafaxine Hcl Xr 150 Mg Capxr) 300 mg PO DAILY [facility] Stop: 01/15/24 08:59 Last Admin: 12/21/23 08:41 Dose: 300 mg Vibegron (Vibegron 75 Mg Tab) 75 mg PO HS [facility] Stop: 01/16/24 21:59 Last Admin: 12/20/23 20:47 Dose: 75 mg Vitamin D (Cholecalciferol 25 Mcg (1000 Units) Tab) 25 mcg PO QAM [facility] Stop: 01/15/24 08:59 Last Admin: 12/21/23 08:40 Dose: 25 mcg Mental Health & Subst Abuse Tx Psychiatrist Name of Psychiatrist: Nikolay Rodriguez Psychiatrist's Date Of Appointment With Psychiatric Provider: 12/30/23 Time of Appointment with Psychiatrist: 10:00 AM Psychiatric Appointment Comment: [address], [place] [address] Therapist Name of Therapist: Nikolay Therapist's Date of Therapist Appointment: 12/24/23 Time of Therapist Appointment: 10:00am Glass Science Engineer Name of Glass Science Engineer: Constantino Caban Phone Number for Glass Science Engineer: [phone] Date of Appointment with Glass Science Engineer: 12/26/23 Case Management Appointment Comment: Sees every Friday Post Discharge Appointments Primary Care Physician Name Of Family Doctor/PCP: JESSIE Tam Primary Care Provider Appointment Comment: [address], [place] [address] Specialist Name of Specialist: Nikolay HUDDLESTON Phone Number for Specialist: Specialty Appointment Comment: [address], [place] [address] (5) Type 2 diabetes mellitus Diabetes mellitus complication status: without complication Diabetes mellitus detention insulin use: without detention use Qualified Code(s): E11.9 - Type 2 diabetes mellitus without complications (8) Hypothyroidism Hypothyroidism type: unspecified Qualified Code(s): E03.9 - Hypothyroidism, unspecified (9) Hypertension Hypertension type: essential hypertension Qualified Code(s): I10 - Essential (primary) hypertension (11) Asthma Asthma complication type: uncomplicated Asthma persistence: unspecified Asthma severity: unspecified severity Qualified Code(s): J45.909 - Unspecified asthma, uncomplicated
[2023-12-21] MEDS: LURASIDONE HCL 20 MG TAB PO SCH (17:20)
[2023-12-21] MEDS ORDERED: cloZAPine 25 MG TAB PO ONE (22:00)
[2023-12-22 07:34] LABS: Hematocrit (blood only) 32.4 % (37.0-47.0); Hemoglobin 10.2 g/dl (12.0-16.0); Immature Granulocytes # (auto) 0.03 K/uL (0.01-0.20); Immature Granulocytes % (auto) 0.4 %; Lymphocytes # (auto) 2.19 K/uL (1.20-3.40); Lymphocytes % (auto) 26.4 %; Mean Corpuscular Hemoglobin 26.8 pg (25.0-34.0); Mean Corpuscular Hgb Conc 31.5 g/dL (32.0-36.0); Mean Platelet Volume 9.1 fL (9.4-12.4); Monocytes # (auto) 0.58 K/uL (0.11-0.59); Neutrophils # (auto) 5.49 K/uL (1.40-6.50); Neutrophils % (auto) 66.2 %; Platelet Count 239 K/uL (130-400); RDW Coefficient of Variation 13.8 % (11.5-14.5); RDW Standard Deviation 42.8 fL (36.4-46.3); Red Blood Count 3.81 M/uL (4.20-5.40); White Blood Count 8.29 K/ul (4.8-10.8)
[2023-12-22 07:53] LABS: Clozapine 929 mcg/L; Norclozapine 667 mcg/L (25-400)
[2023-12-22] MEDS: haloperidoL 1 MG TAB PO PRN (08:38)
--- NOTE | 2023-12-22 08:47 | Psychiatric Progress Note ---
Date of Service December 22, 2023 Impression / Recommendations Impression HOWIE HSU is a 53-year-old F who currently lives in alone, has a history of schizoaffective disorder, bipolar type, and was admitted on 12/15/23 21:40 on a 201 voluntary commitment for worsening auditory hallucinations of her mother instructing self harm. Diagnostically consistent with acute exacerbation of schizoaffective disorder with depression. A: AH slightly worse today but still finding prn haldol helpful, doesn't want to act on commands but causes her to have ego-dystonic SI. Clozapine level returned in critical range, due to this will reduce clozapine back to previous dose which she is agreeable to. She is already on medication to reduce risk of seizures so will not add any additional seizure prophylaxis with critical level. Tolerating taper of Latuda with possible eventual use of scheduled haldol vs prn. Future focused on outpatient planning. MNPR due to psychosis and AH Overall, I spent a total of 35 minutes with this case including review of chart records, nursing report, review of lab work, direct evaluation of the patient at bedside, counseling the patient, multidisciplinary team meeting, orders, and documentation in the electronic health record. (1) Suicidal ideation: (2) Auditory hallucinations: (3) Schizoaffective disorder, depressive type: (4) Cluster B personality disorder: (5) Type 2 diabetes mellitus: (6) Iron deficiency anemia: (7) Urinary incontinence: (8) Hypothyroidism: (9) Hypertension: (10) Dyslipidemia: (11) Asthma: (12) Gastro-esophageal reflux: (13) Obesity: Plan 12/22/2023: Due to elevated clozapine level decreasing clozapine back to prior to admission dose of 100mg qafternoon and 400mg HS. Continue with latuda and haldol and new doses. 12/21/2023: Increase haldol to 3mg BID prn for auditory hallucinations/psychosis. Adjust clozapine starting tomorrow to 100mg qafternoon and 500mg HS. Decrease Latuda to 60mg qdinner. 12/20/2023: Continue current medications and tx plan. 12/19/2023: Increase Clozaril bedtime dose to 450mg. 12/18/2023: Continue medications and treatment plan. 12/17/2023: Continue medications and treatment plan. 12/16/2023: Medications reviewed with patient and adjusted. Afternoon Clozapine inc to 150mg. Blood draw frequency and ANC confirmed on REMs database. Plan to draw trough clozapine level. Inventory Assets Strengths: good insight into treatments, medication adherence Needs: social supports, emotional support Suicide Risk Level Suicide Risk Level: Moderate (q15 min suicide checks) (command AH telling her to harm herself [employer] but now lessening a bit feels safe in the hospital, feels able to ask for support when she needs it) Risk Factors Assessment Male: No : Yes Do You Have Access To A Gun?: No Health Problems: Yes Mental Health Diagnoses: Yes Substance Use Disorders: No Previous Attempt: No Family History of Suicide: No Previous Psychiatric Hospitalization: Yes Hopelessness: No Protective Factors Assessment Lutheran Beliefs: No : No Responsible for Young Children: No Employed: No Stable Relationships: Yes Supportive Family: Yes Good Rapport with Provider: Yes Absence of Any Risk Factors Above: No Interval History Identifying Information HOWIE HSU is a 53-year-old F who currently lives in alone, has a history of schizoaffective disorder, bipolar type, and was admitted on 12/15/23 21:40 on a 201 voluntary commitment for worsening auditory hallucinations of her mother instructing self harm. Chief Complaint "Ok". Review of Systems Sleep Information Total Hours of Sleep: 8 Sleep Comments: HS Klonopin, Buspar and Trazadone Meal Information Percent Meal Consumed - Breakfast: 100 Percent Meal Consumed - Lunch: 100 Percent Meal Consumed - Dinner: 100 Subjective Subjective Patient was seen & assessed and interval progress reviewed with treatment team nursing and social work. Voices are worse this morning. Found prn haldol helpful. Voice continues to tell her to kill herself but she doesn't want to act on this. Trying to utilize other coping skills to manage voices as well such as headphones with music. Reviewed clozapine result, she is agreeable to reducing dose. No side effects from higher haldol dose. Physical Exam Psychiatric Orientation: alert and oriented x 3 Apperance: appropriately dressed and appropriately groomed Eye Contact: + fair eye contact Motor Behavior: no abnormal motor movements Speech: normal rate/rhythm/volume of speech Affect: + constricted affect Mood: + anxious mood Thought Process: + circumstantial thought process Thought Content: reality based without delusions Suicidal Thoughts: denies suicidal plan; + reports suicidal thoughts (ego dystonic due to command AH) Homicidal Thoughts: denies homicidal thoughts Hallucinations: + auditory hallucinations (command) Insight: + fair insight Judgment: + fair judgement Vital Signs (Past 24 Hours) Last Vital Signs Temp 36.3 C L 12/22/23 06:26 Pulse 88 12/22/23 06:28 Resp 18 12/22/23 06:26 BP 106/71 12/22/23 06:28 Pulse Ox 97 12/22/23 06:26 O2 Del Method Room Air 12/22/23 06:26 Results & Data ([facility]) Laboratory Results Laboratory Results - last 24 hr 12/16/23 12/22/23 12/22/23 18:49 06:50 08:18 WBC 8.29 RBC 3.81 L Hgb 10.2 L Hct 32.4 L MCV 85.0 MCH 26.8 MCHC 31.5 L RDW Std Deviation 42.8 RDW Coeff of Bret 13.8 Plt Count 239 MPV 9.1 L Immature Gran % (Auto) 0.4 Neut % (Auto) 66.2 Lymph % (Auto) 26.4 [place] % (Auto) 7.0 Eos % (Auto) 0.0 Baso % (Auto) 0.0 Neut # (Auto) 5.49 Lymph # (Auto) 2.19 [place] # (Auto) 0.58 Eos # (Auto) 0.00 Baso # (Auto) 0.00 Immature Gran # (Auto) 0.03 POC Glucose 107 H Clozapine 929 A* Norclozapine 667 H Current Inpatient Medications Current Inpatient Medications: Current Inpatient Medications Acetaminophen (Acetaminophen 325 Mg Tab) 650 mg PO Q4H PRN PRN Reason: Headache or Minor Fever Stop: 01/14/24 22:05 Al Hydrox/Mg Hydrox/Simethicone (Aluminum/Magnesium Susp 30 Ml Udc) 30 ml PO Q4H PRN PRN Reason: GI Upset Stop: 01/14/24 22:05 Atorvastatin Calcium (Atorvastatin 40 Mg Tab) 40 mg PO HS JOSE Stop: 01/14/24 20:59 Last Admin: 12/21/23 21:05 Dose: 40 mg Buspirone HCl (Buspirone 5 Mg Tab) 20 mg PO TID [facility]SE Stop: 01/14/24 20:59 Last Admin: 12/22/23 08:23 Dose: 20 mg Clonazepam (Clonazepam 0.5 Mg Tab) 0.5 mg PO TID [facility] Stop: 01/14/24 20:59 Last Admin: 12/22/23 08:33 Dose: 0.5 mg Clozapine (Clozapine 100 Mg Tab) 100 mg PO DAILY@1200 [facility]SE; Protocol Stop: 01/21/24 11:59 Clozapine (Clozapine 100 Mg Tab) 500 mg PO HS [facility]; Protocol Stop: 01/21/24 21:59 Cyanocobalamin (Cyanocobalamin (B-12) 500 Mcg Tablet) 2,000 mcg PO DAILY [facility] Stop: 01/15/24 08:59 Last Admin: 12/22/23 08:25 Dose: 2,000 mcg Ergocalciferol (Ergocalciferol 1250 Mcg (50,000 Units) Cap) 1,250 mcg PO Q30D [facility] Stop: 01/31/24 08:59 Estradiol (Estradiol 1 Mg Tab) 1 mg PO DAILY [facility] Stop: 01/15/24 08:59 Last Admin: 12/22/23 08:26 Dose: 1 mg Ferrous Sulfate (Ferrous Sulfate 325 Mg Tab) 325 mg PO QAM [facility] Stop: 01/15/24 08:59 Last Admin: 12/22/23 08:26 Dose: 325 mg Haloperidol (Haloperidol 1 Mg Tab) 3 mg PO BID PRN PRN Reason: psychosis Stop: 01/18/24 16:04 Last Admin: 12/22/23 08:38 Dose: 3 mg Hydroxyzine HCl (Hydroxyzine Hcl 25 Mg Tab) 50 mg PO HSZ PRN PRN Reason: Insomnia Stop: 01/14/24 22:05 Hydroxyzine HCl (Hydroxyzine Hcl 25 Mg Tab) 25 mg PO Q4H PRN PRN Reason: Anxiety Stop: 01/14/24 22:05 Lamotrigine (Lamotrigine 100 Mg Tab) 200 mg PO [facility]; Protocol Stop: 01/16/24 21:59 Last Admin: 12/21/23 21:07 Dose: 200 mg Levothyroxine Sodium (Levothyroxine Sodium 125 Mcg Tablet) 125 mcg PO DAILYBB [facility] Stop: 01/15/24 07:59 Last Admin: 12/22/23 08:23 Dose: 125 mcg Losartan Potassium (Losartan Potassium 50 Mg Tab) 50 mg PO QAM [facility] Stop: 01/15/24 08:59 Last Admin: 12/22/23 08:28 Dose: 50 mg Lurasidone HCl (Lurasidone Hcl 20 Mg Tab) 60 mg PO DAILYBD [facility] Stop: 01/20/24 17:14 Last Admin: 12/21/23 17:20 Dose: 60 mg Magnesium Hydroxide (Magnesium Hydroxide Susp 30 Ml Udc) 30 ml PO DAILY PRN PRN Reason: Constipation Stop: 01/14/24 22:05 Magnesium Oxide (Magnesium Oxide 400 Mg Tab) 400 mg PO DAILY [facility] Stop: 01/15/24 08:59 Last Admin: 12/22/23 08:26 Dose: 400 mg Metformin HCl (Metformin Hcl 500 Mg Tab) 1,000 mg PO BIDM [facility] Stop: 01/15/24 08:59 Last Admin: 12/22/23 08:27 Dose: 1,000 mg Montelukast Sodium (Montelukast Sodium 10 Mg Tablet) 10 mg PO HS [facility] Stop: 01/16/24 21:59 Last Admin: 12/21/23 21:06 Dose: 10 mg Nystatin (Nystatin Cr 15 Gm Tube) 1 appln EXT BID [facility] Stop: 01/14/24 20:59 Last Admin: 12/22/23 08:28 Dose: 1 appln Sodium Chloride (Sodium Chloride 0.65% Na Soln 45 Ml ([place])) 1 - 2 sprays NA PRN PRN PRN Reason: Nasal Dryness/Congestion Stop: 01/14/24 22:05 Trazodone HCl (Trazodone Hcl 100 Mg Tab) 150 mg PO HS [facility] Stop: 01/14/24 20:59 Last Admin: 12/21/23 21:06 Dose: 150 mg Venlafaxine HCl (Venlafaxine Hcl Xr 150 Mg Capxr) 300 mg PO DAILY [facility] Stop: 01/15/24 08:59 Last Admin: 12/22/23 08:29 Dose: 300 mg Vibegron (Vibegron 75 Mg Tab) 75 mg PO HS [facility] Stop: 01/16/24 21:59 Last Admin: 12/21/23 21:07 Dose: 75 mg Vitamin D (Cholecalciferol 25 Mcg (1000 Units) Tab) 25 mcg PO QAM [facility] Stop: 01/15/24 08:59 Last Admin: 12/22/23 08:24 Dose: 25 mcg Mental Health & Subst Abuse Tx Psychiatrist Name of Psychiatrist: Nikolay Rodriguez Psychiatrist's Date Of Appointment With Psychiatric Provider: 12/30/23 Time of Appointment with Psychiatrist: 10:00 AM Psychiatric Appointment Comment: [address], [place] [address] Therapist Name of Therapist: Nikolay Therapist's Date of Therapist Appointment: 12/24/23 Time of Therapist Appointment: 10:00am Assembly Press Operator Name of Assembly Press Operator: Constantino Caban Phone Number for Assembly Press Operator: [phone] Date of Appointment with Assembly Press Operator: 12/26/23 Case Management Appointment Comment: Sees every Friday Post Discharge Appointments Primary Care Physician Name Of Family Doctor/PCP: JESSIE Tam Primary Care Provider Appointment Comment: [address], [place] [address] Specialist Name of Specialist: Nikolay HUDDLESTON Phone Number for Specialist: Specialty Appointment Comment: [address], [place] [address] (5) Type 2 diabetes mellitus Diabetes mellitus complication status: without complication Diabetes mellitus terminal makeup operator insulin use: without prison use Qualified Code(s): E11.9 - Type 2 diabetes mellitus without complications (8) Hypothyroidism Hypothyroidism type: unspecified Qualified Code(s): E03.9 - Hypothyroidism, unspecified (9) Hypertension Hypertension type: essential hypertension Qualified Code(s): I10 - Essential (primary) hypertension (11) Asthma Asthma complication type: uncomplicated Asthma persistence: unspecified Asthma severity: unspecified severity Qualified Code(s): J45.909 - Unspecified asthma, uncomplicated
[2023-12-22] MEDS: cloZAPine 100 MG TAB PO SCH ×2 (12:51→21:26)
[2023-12-22] MEDS ORDERED: cloZAPine 100 MG TAB PO SCH (22:00)
--- NOTE | 2023-12-23 08:45 | Psychiatric Progress Note ---
Date of Service December 23, 2023 Impression / Recommendations Impression HOWIE HSU is a 53-year-old F who currently lives in alone, has a history of schizoaffective disorder, bipolar type, and was admitted on 12/15/23 21:40 on a 201 voluntary commitment for worsening auditory hallucinations of her mother instructing self harm. Diagnostically consistent with acute exacerbation of schizoaffective disorder with depression. A: AH have lessened today, she has not required any prn haldol and is effectively utilizing coping skills. No SI. Motivated and hopeful for discharge tomorrow as she feel safe and able to distract herself from the voices when they occur. CBC done, ANC reviewed and stable. MNPR due to AH Overall, I spent a total of 35 minutes with this case including review of chart records, nursing report, review of lab work, direct evaluation of the patient at bedside, counseling the patient, multidisciplinary team meeting, orders, and documentation in the electronic health record. (1) Suicidal ideation: (2) Auditory hallucinations: (3) Schizoaffective disorder, depressive type: (4) Cluster B personality disorder: (5) Type 2 diabetes mellitus: (6) Iron deficiency anemia: (7) Urinary incontinence: (8) Hypothyroidism: (9) Hypertension: (10) Dyslipidemia: (11) Asthma: (12) Gastro-esophageal reflux: (13) Obesity: Plan 12/23/2023: Continue current medications and tx plan. 12/22/2023: Due to elevated clozapine level decreasing clozapine back to prior to admission dose of 100mg qafternoon and 400mg HS. Continue with latuda and haldol and new doses. 12/21/2023: Increase haldol to 3mg BID prn for auditory hallucinations/psychosis. Adjust clozapine starting tomorrow to 100mg qafternoon and 500mg HS. Decrease Latuda to 60mg qdinner. 12/20/2023: Continue current medications and tx plan. 12/19/2023: Increase Clozaril bedtime dose to 450mg. 12/18/2023: Continue medications and treatment plan. 12/17/2023: Continue medications and treatment plan. 12/16/2023: Medications reviewed with patient and adjusted. Afternoon Clozapine inc to 150mg. Blood draw frequency and ANC confirmed on REMs database. Plan to draw trough clozapine level. 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 but now lessening, denies SI, safe in the hospital, feels able to ask for support when she needs it) Risk Factors Assessment Male: No : Yes Do You Have Access To A Gun?: No Health Problems: Yes Mental Health Diagnoses: Yes Substance Use Disorders: No Previous Attempt: No Family History of Suicide: No Previous Psychiatric Hospitalization: Yes Hopelessness: No Protective Factors Assessment Christianity Beliefs: No : No Responsible for Young Children: No Employed: No Stable Relationships: Yes Supportive Family: Yes Good Rapport with Provider: Yes Absence of Any Risk Factors Above: No Interval History Identifying Information HOWIE HSU is a 53-year-old F who currently lives in alone, has a history of schizoaffective disorder, bipolar type, and was admitted on 12/15/23 21:40 on a 201 voluntary commitment for worsening auditory hallucinations of her mother instructing self harm. Chief Complaint "Ok". Review of Systems Sleep Information Total Hours of Sleep: 8 Sleep Comments: HS Buspar, Klonopin and Trazadone Meal Information Percent Meal Consumed - Breakfast: 100 Percent Meal Consumed - Lunch: 100 Percent Meal Consumed - Dinner: 100 Subjective Subjective Patient was seen & assessed and interval progress reviewed with treatment team nursing and social work. Attending groups. Has been staying out of her room. Today reports hearing some voices but is easily able to distract herself from these. Adamantly denies SI. Finding listening to music with headphones and doing guided relaxation very helpful. Likes her medications as they are, denies any issues or side effects. Expresses gratitude for care she is receiving in the hospital. She is hopeful for discharge tomorrow. Physical Exam Psychiatric Orientation: alert and oriented x 3 Apperance: appropriately dressed and appropriately groomed Eye Contact: good eye contact Motor Behavior: no abnormal motor movements Speech: normal rate/rhythm/volume of speech Affect: + constricted affect Mood: + anxious mood; no depressed mood Thought Process: goal directed thought process Thought Content: reality based without delusions Suicidal Thoughts: denies suicidal thoughts and denies suicidal plan Homicidal Thoughts: denies homicidal thoughts Hallucinations: + auditory hallucinations (intermittent) Insight: + fair insight Judgment: + fair judgement Vital Signs (Past 24 Hours) Last Vital Signs Temp 36.6 C 12/23/23 06:36 Pulse 92 H 12/23/23 06:36 Resp 16 12/23/23 06:36 BP 114/76 12/23/23 06:36 Pulse Ox 97 12/22/23 06:26 O2 Del Method Room Air 12/22/23 06:26 Results & Data ([facility]) Laboratory Results Laboratory Results - last 24 hr 12/23/23 06:31 POC Glucose 95 Current Inpatient Medications Current Inpatient Medications: Current Inpatient Medications Acetaminophen (Acetaminophen 325 Mg Tab) 650 mg PO Q4H PRN PRN Reason: Headache or Minor Fever Stop: 01/14/24 22:05 Al Hydrox/Mg Hydrox/Simethicone (Aluminum/Magnesium Susp 30 Ml Udc) 30 ml PO Q4H PRN PRN Reason: GI Upset Stop: 01/14/24 22:05 Atorvastatin Calcium (Atorvastatin 40 Mg Tab) 40 mg PO [facility] Stop: 01/14/24 20:59 Last Admin: 12/22/23 21:27 Dose: 40 mg Buspirone HCl (Buspirone 5 Mg Tab) 20 mg PO TID [facility] Stop: 01/14/24 20:59 Last Admin: 12/22/23 21:25 Dose: 20 mg Clonazepam (Clonazepam 0.5 Mg Tab) 0.5 mg PO TID [facility] Stop: 01/14/24 20:59 Last Admin: 12/22/23 21:27 Dose: 0.5 mg Clozapine (Clozapine 100 Mg Tab) 100 mg PO DAILY@1200 [facility]; Protocol Stop: 01/21/24 11:59 Last Admin: 12/22/23 12:51 Dose: 100 mg Clozapine (Clozapine 100 Mg Tab) 400 mg PO HS [facility]; Protocol Stop: 01/21/24 21:59 Last Admin: 12/22/23 21:26 Dose: 400 mg Cyanocobalamin (Cyanocobalamin (B-12) 500 Mcg Tablet) 2,000 mcg PO DAILY [facility] Stop: 01/15/24 08:59 Last Admin: 12/22/23 08:25 Dose: 2,000 mcg Ergocalciferol (Ergocalciferol 1250 Mcg (50,000 Units) Cap) 1,250 mcg PO Q30D [facility] Stop: 01/31/24 08:59 Estradiol (Estradiol 1 Mg Tab) 1 mg PO DAILY [facility] Stop: 01/15/24 08:59 Last Admin: 12/22/23 08:26 Dose: 1 mg Ferrous Sulfate (Ferrous Sulfate 325 Mg Tab) 325 mg PO QAM [facility] Stop: 01/15/24 08:59 Last Admin: 12/22/23 08:26 Dose: 325 mg Haloperidol (Haloperidol 1 Mg Tab) 3 mg PO BID PRN PRN Reason: psychosis Stop: 01/18/24 16:04 Last Admin: 12/22/23 08:38 Dose: 3 mg Hydroxyzine HCl (Hydroxyzine Hcl 25 Mg Tab) 50 mg PO HSZ PRN PRN Reason: Insomnia Stop: 01/14/24 22:05 Hydroxyzine HCl (Hydroxyzine Hcl 25 Mg Tab) 25 mg PO Q4H PRN PRN Reason: Anxiety Stop: 01/14/24 22:05 Lamotrigine (Lamotrigine 100 Mg Tab) 200 mg PO [facility]; Protocol Stop: 01/16/24 21:59 Last Admin: 12/22/23 21:26 Dose: 200 mg Levothyroxine Sodium (Levothyroxine Sodium 125 Mcg Tablet) 125 mcg PO DAILYBB [facility] Stop: 01/15/24 07:59 Last Admin: 12/23/23 07:50 Dose: 125 mcg Losartan Potassium (Losartan Potassium 50 Mg Tab) 50 mg PO QAM [facility] Stop: 01/15/24 08:59 Last Admin: 12/22/23 08:28 Dose: 50 mg Lurasidone HCl (Lurasidone Hcl 20 Mg Tab) 60 mg PO DAILYBD [facility] Stop: 01/20/24 17:14 Last Admin: 12/22/23 17:30 Dose: 60 mg Magnesium Hydroxide (Magnesium Hydroxide Susp 30 Ml Udc) 30 ml PO DAILY PRN PRN Reason: Constipation Stop: 01/14/24 22:05 Magnesium Oxide (Magnesium Oxide 400 Mg Tab) 400 mg PO DAILY [facility] Stop: 01/15/24 08:59 Last Admin: 12/22/23 08:26 Dose: 400 mg Metformin HCl (Metformin Hcl 500 Mg Tab) 1,000 mg PO BIDM [facility] Stop: 01/15/24 08:59 Last Admin: 12/22/23 17:31 Dose: 1,000 mg Montelukast Sodium (Montelukast Sodium 10 Mg Tablet) 10 mg PO HS [facility] Stop: 01/16/24 21:59 Last Admin: 12/22/23 21:26 Dose: 10 mg Nystatin (Nystatin Cr 15 Gm Tube) 1 appln EXT BID [facility] Stop: 01/14/24 20:59 Last Admin: 12/22/23 21:28 Dose: Not Given Sodium Chloride (Sodium Chloride 0.65% Na Soln 45 Ml ([place])) 1 - 2 sprays NA PRN PRN PRN Reason: Nasal Dryness/Congestion Stop: 01/14/24 22:05 Trazodone HCl (Trazodone Hcl 100 Mg Tab) 150 mg PO HS [facility] Stop: 01/14/24 20:59 Last Admin: 12/22/23 21:26 Dose: 150 mg Venlafaxine HCl (Venlafaxine Hcl Xr 150 Mg Capxr) 300 mg PO DAILY [facility] Stop: 01/15/24 08:59 Last Admin: 12/22/23 08:29 Dose: 300 mg Vibegron (Vibegron 75 Mg Tab) 75 mg PO HS [facility] Stop: 01/16/24 21:59 Last Admin: 12/22/23 21:25 Dose: 75 mg Vitamin D (Cholecalciferol 25 Mcg (1000 Units) Tab) 25 mcg PO QAM [facility] Stop: 01/15/24 08:59 Last Admin: 12/22/23 08:24 Dose: 25 mcg Mental Health & Subst Abuse Tx Psychiatrist Name of Psychiatrist: Nikolay Rodriguez Psychiatrist's Date Of Appointment With Psychiatric Provider: 12/30/23 Time of Appointment with Psychiatrist: 10:00 AM Psychiatric Appointment Comment: [address], [place] [address] Therapist Name of Therapist: Nikolay Therapist's Date of Therapist Appointment: 12/31/23 Time of Therapist Appointment: 3:00 PM Appeals Reviewer Veteran Name of Appeals Reviewer Veteran: Constantino Caban Phone Number for Appeals Reviewer Veteran: [phone] Date of Appointment with Appeals Reviewer Veteran: 12/26/23 Case Management Appointment Comment: Sees every Friday Post Discharge Appointments Primary Care Physician Name Of Family Doctor/PCP: JESSIE Tam Primary Care Provider Appointment Comment: [address], [facility] [address] Specialist Name of Specialist: Nikolay HUDDLESTON Phone Number for Specialist: Specialty Appointment Comment: [address], [place] [address] (5) Type 2 diabetes mellitus Diabetes mellitus complication status: without complication Diabetes mellitus long term care administrator insulin use: without shelter use Qualified Code(s): E11.9 - Type 2 diabetes mellitus without complications (8) Hypothyroidism Hypothyroidism type: unspecified Qualified Code(s): E03.9 - Hypothyroidism, unspecified (9) Hypertension Hypertension type: essential hypertension Qualified Code(s): I10 - Essential (primary) hypertension (11) Asthma Asthma complication type: uncomplicated Asthma persistence: unspecified Asthma severity: unspecified severity Qualified Code(s): J45.909 - Unspecified asthma, uncomplicated
--- NOTE | 2023-12-24 08:47 | Discharge Summary ---
Date of Service December 24, 2023 History of Present Illness Patient reports "hearing mom's voice" but do not want to act on it". Patient complains of voices of her mother telling her to kill herself by cutting self or overdosing. Reports increased associated anxiety. Says she tries her best to avoid the voices and currently does not want to kill herself. Prior to admission she went on resume call with her psychiatrist and therapist and they recommended for her to come in. Complains of chronic voices of her mother telling her to kill herself that never go away. She dieter with the voices by listening to the radio or socializing. In the past also heard her grandfather's voice. Denies hearing other voices. Says the voices never go away but are sometimes more tolerable. She denies visual hallucinations or tactile disturbances. She denies having any kind of body control. Reports with increased anxiety feels more dizzy and lightheaded. Denies any recent inciting events that would have made her stressed or anxious. Denies recent medication changes. Reports in the past was up to 1000 mg of clozapine. Reports recent worsening of mood, sleeping more to cope, feeling less rested, decreased energy. Reports still having good concentration. Says this got worse gradually. She denies alcohol or drug problems currently and in her life. Reports in the past symptoms improved by going to groups and being more social. Reports past TMS was helpful however unable to financially pay for this. Has had 1 ECT session however did not like the experience and complained of severe headache. Currently getting clozapine CBC blood draws once monthly and got her last 2 weeks ago. Denies history of neutropenia while on clozapine. Patient lives in an apartment alone with caregiver assistance. 42 hospitalizations since 1992 at this current hospital. Chart review: Clozapine REMs: Monthly blood draws. Last ANC 12/14 at 3770. Physical Exam Vital Signs (Past 24 Hours) Last Vital Signs Temp 36.5 C 12/24/23 08:07 Pulse 82 12/24/23 08:07 Resp 18 12/24/23 08:07 BP 126/83 12/24/23 08:07 Pulse Ox 97 12/24/23 08:07 O2 Del Method Room Air 12/22/23 06:26 See admission H&P and DOD summary. Principal Diagnosis Schizoaffective Disorder Psychiatric Data See daily stay summary. In short, safety was maintained and the patient was cooperative with care. Medication changes included: attempt to titrate clozapine but the level on admission exceeded critical range (>929), of note it was not a true trough so may have been falsely elevated, but given this it was reduced back to her prior to admission dose; initiation of haldol 3mg BID prn for hallucinations which she found extremely beneficial so in effort to reduce antipsychotic burden attempted start of a slow trial taper of Latuda to 60mg qdinner and they tolerated this well. ANC was done again on 12/22/2023 with normal range value of 5490, she will continue to require monthly checks of her ANC. Given elevated clozapine level on admission would recommend repeat clozapine level with true 12 hour trough in 1-2 weeks to ensure it is outside of the critical range (recent level in August 2023 was normal). She declined a support session but she communicated frequently with her outpatient supports including her CM and home health aid and safety plan was completed prior to discharge. She actively and insightfully participated in safety planning and in discussions about ways to seek support and recognizing warning signs and utilizing coping skills. Reviewed importance of seeking emergency care should SI intensify, worsen or should they feel unsafe in the future which they agree to do. On the day of discharge she stated her mood was "good" and "ready" and remained future- oriented including seeing her support, showering, exercising and engaging in aftercare appointments for psychiatry, case management and peer support. Day of Discharge Assessment Today the patient voices readiness for discharge. They note improvement in mood and anxiety. They deny thoughts of harm to self or others. Thoughts are organized and they are clinically improved from admission. There is no evidence of psychosis. They improved in the hospital with support and medication adjustments. They agree to take medications as prescribed and keep follow-up appointments. At the time of the discharge they are deemed to be stable and appropriate for outpatient level of care. They are not deemed to be at imminent risk of harm to self or others. They are aware of emergency and crisis services. Knows to call 911 or go to nearest emergency care center if in a crisis which cannot be handled as an outpatient. Overall, I spent a total of 45 minutes on this case including meeting with the patient, reviewing the chart, nursing report, multidisciplinary team meeting, orders, and documentation. Transition of Care Transition Of Care Record: was reviewed with the patient Advance Directives Advance Directives Information Provided: No Advance Directives: No Mental Health Advance Directive: No Advance Directives on File: No Living Will: No Power of Manager Systems: No Advance Directives Reason:: Declines as Mental Health Visit. Suicide Risk Level Suicide Risk Level Comments: Acute risk is low given improvement in mood and denial of SI, lack of access to lethal means, hopefulness and improvement in psychosis. Chronic risk is moderate given some non-modifiable risk factors: psychiatric co-morbid diagnoses, emo tional reactivity, chronic illness, prior psychiatric hospitalizations, mood disorder, schizophrenia, but also with protective factors including: good social support, sense of responsibility to family and social supports, outpatient care in place, positive coping skills, positive problem solving, capacity to establish therapeutic alliance, willingness to engage with treatment and capacity for self-observation. Counseled on ways to reduce acute and chronic risk including engaging with outpatient providers, using safety plan if needed, utilizing supports, taking medication, and using coping skills. Modifiable risk factors of SI, auditory hallucinations and depression were addressed during hospitalization through development of new coping skills, safety planning, and medication adjustments. Risk Factors Assessment Male: No : Yes Do You Have Access To A Gun?: No Health Problems: Yes Mental Health Diagnoses: Yes Substance Use Disorders: No Previous Attempt: No Family History of Suicide: No Previous Psychiatric Hospitalization: Yes Hopelessness: No Protective Factors Assessment Sabianism Beliefs: No : No Responsible for Young Children: No Employed: No Stable Relationships: Yes Supportive Family: Yes Good Rapport with Provider: Yes Absence of Any Risk Factors Above: No Antipsychotic Medications Additional antipsychotic is being used for augmentation of Clozapine. Discharge Data Lab Results 12/15/23 12/15/23 12/15/23 10:23 10:35 10:40 WBC 6.69 RBC 4.01 L Hgb 10.7 L Hct 34.4 L MCV 85.8 MCH 26.7 MCHC 31.1 L RDW Std Deviation 43.7 RDW Coeff of Bret 14.0 Plt Count 249 MPV 8.9 L Immature Gran % (Auto) 0.1 Neut % (Auto) 56.4 Lymph % (Auto) 36.5 [place] % (Auto) 7.0 Eos % (Auto) 0.0 Baso % (Auto) 0.0 Neut # (Auto) 3.77 Lymph # (Auto) 2.44 [place] # (Auto) 0.47 Eos # (Auto) 0.00 Baso # (Auto) 0.00 Immature Gran # (Auto) 0.01 Sodium 142 Potassium 4.1 Chloride 107 Carbon Dioxide 25 Anion Gap 10 BUN 7 Creatinine 0.76 Est Cr Clr Drug Dosing 100.2 Est GFR ( Amer) 102.3 Est GFR (Non-Af Amer) 88.3 BUN/Creatinine Ratio 9.2 L Glucose 93 POC Glucose Calcium 8.9 Total Bilirubin 0.3 AST 11 L ALT 13 Alkaline Phosphatase 82 Total Protein 6.5 Albumin 4.0 Globulin 2.5 Albumin/Globulin Ratio 1.6 TSH 0.443 Urine Color Yellow Urine Appearance Clear Urine pH 6.5 Ur Specific [place] 1.010 Urine Protein Negative Urine Glucose (UA) Negative Urine Ketones Negative Urine Blood Negative Urine Nitrite Negative Urine Bilirubin Negative Urine Urobilinogen Negative Ur Leukocyte Esterase Negative Salicylates < 3.0 L Urine Opiates Screen Neg Ur Methadone, Qual Neg Urine Fentanyl Screen Neg Acetaminophen < 3 L Urine Barbiturates Neg Ur Phencyclidine (PCP) Neg Clozapine Norclozapine U Amphetamin/Meth Scrn Neg Urine MDEA negative MDMA (Ecstasy) Screen Pos H MDMA negative Urine MDMA negative U Benzodiazepines Scrn Neg Ur Cocaine Metabolite Neg U Marijuana (THC) Screen Neg Ethyl Alcohol mg/dL < 10.0 SARS-CoV-2, RNA, NAAT NEGATIVE 12/16/23 12/16/23 12/17/23 08:31 18:49 06:20 WBC RBC Hgb Hct MCV MCH MCHC RDW Std Deviation RDW Coeff of Bret Plt Count MPV Immature Gran % (Auto) Neut % (Auto) Lymph % (Auto) [place] % (Auto) Eos % (Auto) Baso % (Auto) Neut # (Auto) Lymph # (Auto) [place] # (Auto) Eos # (Auto) Baso # (Auto) Immature Gran # (Auto) Sodium Potassium Chloride Carbon Dioxide Anion Gap BUN Creatinine Est Cr Clr Drug Dosing Est GFR ( Amer) Est GFR (Non-Af Amer) BUN/Creatinine Ratio Glucose POC Glucose 73 76 Calcium Total Bilirubin AST ALT Alkaline Phosphatase Total Protein Albumin Globulin Albumin/Globulin Ratio TSH Urine Color Urine Appearance Urine pH Ur Specific [place] Urine Protein Urine Glucose (UA) Urine Ketones Urine Blood Urine Nitrite Urine Bilirubin Urine Urobilinogen Ur Leukocyte Esterase Salicylates Urine Opiates Screen Ur Methadone, Qual Urine Fentanyl Screen Acetaminophen Urine Barbiturates Ur Phencyclidine (PCP) Clozapine 929 A* Norclozapine 667 H U Amphetamin/Meth Scrn Urine MDEA MDMA (Ecstasy) Screen MDMA Urine MDMA U Benzodiazepines Scrn Ur Cocaine Metabolite U Marijuana (THC) Screen Ethyl Alcohol mg/dL SARS-CoV-2, RNA, NAAT 12/18/23 12/19/23 12/20/23 06:13 06:23 06:33 WBC RBC Hgb Hct MCV MCH MCHC RDW Std Deviation RDW Coeff of Bret Plt Count MPV Immature Gran % (Auto) Neut % (Auto) Lymph % (Auto) [place] % (Auto) Eos % (Auto) Baso % (Auto) Neut # (Auto) Lymph # (Auto) [place] # (Auto) Eos # (Auto) Baso # (Auto) Immature Gran # (Auto) Sodium Potassium Chloride Carbon Dioxide Anion Gap BUN Creatinine Est Cr Clr Drug Dosing Est GFR ( Amer) Est GFR (Non-Af Amer) BUN/Creatinine Ratio Glucose POC Glucose 97 118 H 91 Calcium Total Bilirubin AST ALT Alkaline Phosphatase Total Protein Albumin Globulin Albumin/Globulin Ratio TSH Urine Color Urine Appearance Urine pH Ur Specific [place] Urine Protein Urine Glucose (UA) Urine Ketones Urine Blood Urine Nitrite Urine Bilirubin Urine Urobilinogen Ur Leukocyte Esterase Salicylates Urine Opiates Screen Ur Methadone, Qual Urine Fentanyl Screen Acetaminophen Urine Barbiturates Ur Phencyclidine (PCP) Clozapine Norclozapine U Amphetamin/Meth Scrn Urine MDEA MDMA (Ecstasy) Screen MDMA Urine MDMA U Benzodiazepines Scrn Ur Cocaine Metabolite U Marijuana (THC) Screen Ethyl Alcohol mg/dL SARS-CoV-2, RNA, NAAT 12/21/23 12/22/23 12/22/23 06:35 06:50 08:18 WBC 8.29 RBC 3.81 L Hgb 10.2 L Hct 32.4 L MCV 85.0 MCH 26.8 MCHC 31.5 L RDW Std Deviation 42.8 RDW Coeff of Bret 13.8 Plt Count 239 MPV 9.1 L Immature Gran % (Auto) 0.4 Neut % (Auto) 66.2 Lymph % (Auto) 26.4 [place] % (Auto) 7.0 Eos % (Auto) 0.0 Baso % (Auto) 0.0 Neut # (Auto) 5.49 Lymph # (Auto) 2.19 [place] # (Auto) 0.58 Eos # (Auto) 0.00 Baso # (Auto) 0.00 Immature Gran # (Auto) 0.03 Sodium Potassium Chloride Carbon Dioxide Anion Gap BUN Creatinine Est Cr Clr Drug Dosing Est GFR ( Amer) Est GFR (Non-Af Amer) BUN/Creatinine Ratio Glucose POC Glucose 105 H 107 H Calcium Total Bilirubin AST ALT Alkaline Phosphatase Total Protein Albumin Globulin Albumin/Globulin Ratio TSH Urine Color Urine Appearance Urine pH Ur Specific [place] Urine Protein Urine Glucose (UA) Urine Ketones Urine Blood Urine Nitrite Urine Bilirubin Urine Urobilinogen Ur Leukocyte Esterase Salicylates Urine Opiates Screen Ur Methadone, Qual Urine Fentanyl Screen Acetaminophen Urine Barbiturates Ur Phencyclidine (PCP) Clozapine Norclozapine U Amphetamin/Meth Scrn Urine MDEA MDMA (Ecstasy) Screen MDMA Urine MDMA U Benzodiazepines Scrn Ur Cocaine Metabolite U Marijuana (THC) Screen Ethyl Alcohol mg/dL SARS-CoV-2, RNA, NAAT 12/23/23 12/24/23 06:31 06:37 WBC RBC Hgb Hct MCV MCH MCHC RDW Std Deviation RDW Coeff of Bret Plt Count MPV Immature Gran % (Auto) Neut % (Auto) Lymph % (Auto) [place] % (Auto) Eos % (Auto) Baso % (Auto) Neut # (Auto) Lymph # (Auto) [place] # (Auto) Eos # (Auto) Baso # (Auto) Immature Gran # (Auto) Sodium Potassium Chloride Carbon Dioxide Anion Gap BUN Creatinine Est Cr Clr Drug Dosing Est GFR ( Amer) Est GFR (Non-Af Amer) BUN/Creatinine Ratio Glucose POC Glucose 95 93 Calcium Total Bilirubin AST ALT Alkaline Phosphatase Total Protein Albumin Globulin Albumin/Globulin Ratio TSH Urine Color Urine Appearance Urine pH Ur Specific [place] Urine Protein Urine Glucose (UA) Urine Ketones Urine Blood Urine Nitrite Urine Bilirubin Urine Urobilinogen Ur Leukocyte Esterase Salicylates Urine Opiates Screen Ur Methadone, Qual Urine Fentanyl Screen Acetaminophen Urine Barbiturates Ur Phencyclidine (PCP) Clozapine Norclozapine U Amphetamin/Meth Scrn Urine MDEA MDMA (Ecstasy) Screen MDMA Urine MDMA U Benzodiazepines Scrn Ur Cocaine Metabolite U Marijuana (THC) Screen Ethyl Alcohol mg/dL SARS-CoV-2, RNA, NAAT Hospital Course (1) Suicidal ideation: (2) Auditory hallucinations: (3) Schizoaffective disorder, depressive type: (4) Cluster B personality disorder: (5) Type 2 diabetes mellitus: (6) Iron deficiency anemia: (7) Urinary incontinence: (8) Hypothyroidism: (9) Hypertension: (10) Dyslipidemia: (11) Asthma: (12) Gastro-esophageal reflux: (13) Obesity: Plan 12/24/2023: Feels safe, desires discharge 12/23/2023: Continue current medications and tx plan. 12/22/2023: Due to elevated clozapine level decreasing clozapine back to prior to admission dose of 100mg qafternoon and 400mg HS. Continue with latuda and haldol and new doses. 12/21/2023: Increase haldol to 3mg BID prn for auditory hallucinations/psychosis. Adjust clozapine starting tomorrow to 100mg qafternoon and 500mg HS. Decrease Latuda to 60mg qdinner. 12/20/2023: Continue current medications and tx plan. 12/19/2023: Increase Clozaril bedtime dose to 450mg. 12/18/2023: Continue medications and treatment plan. 12/17/2023: Continue medications and treatment plan. 12/16/2023: Medications reviewed with patient and adjusted. Afternoon Clozapine inc to 150mg. Blood draw frequency and ANC confirmed on REMs database. Plan to draw trough clozapine level. Mental Health & Subst Abuse Tx Psychiatrist Name of Psychiatrist: Nikolay Rodriguez Psychiatrist's Date Of Appointment With Psychiatric Provider: 12/30/23 Time of Appointment with Psychiatrist: 10:00 AM Psychiatric Appointment Comment: [address], [place] [address] Therapist Name of Therapist: Nikolay Therapist Therapist's Date of Therapist Appointment: N/A Time of Therapist Appointment: N/A Therapy Appointment Comment: Cancelled per patient request. patient will reschedule at a later date Sash Finisher Name of Sash Finisher: Constantino Caban Phone Number for Sash Finisher: [phone] Date of Appointment with Sash Finisher: 12/26/23 Case Management Appointment Comment: Sees every Friday Post Discharge Appointments Primary Care Physician Name Of Family Doctor/PCP: JESSIE Tam Primary Care Provider Appointment Comment: [address], [place] [address] Specialist Name of Specialist: Nikolay HUDDLESTON Phone Number for Specialist: Specialty Appointment Comment: [address], [place] [address] Other #1: Name of Aftercare Appointment: Mobile Psych - Jose E Confer ([facility]) Phone Number of Aftercare Appointment: [phone] Aftercare Appointment Comment: pending, Jose E will confirm availability and inform patient Discharge Plan Discharge Items Patient Disposition: Home - Home Health Services Reason For Visit: UNSPECIFIED DEPRESSIVE DISORDER Discharge Diagnosis: Schizoaffective Disorder Activity: Resume your previous activity Non-emergency contact: Primary Care Provider, Psychiatrist, Therapist and Button Attaching Machine Operator Call non-emergency contact if: you have any medication questions and your symptoms worsen Follow-up/Referrals: Niles Tam MD [Primary Care Provider] - Diet: Regular Addtl Attending Provider Instructions: SPECIAL CARE INSTRUCTIONS: 1. Follow through with your scheduled aftercare appointments. If unable to keep an appointment, please call to reschedule. 2. Take your medication only as prescribed. Medication should not be changed or stopped without the approval of your doctor. In the event of worsening symptoms or concerns about side effects, contact your doctor immediately. 3. Utilize new healthy coping skills, anger management skills, and stress management skills learned during your hospitalization. Journal feelings and process them with a support person. Identify stressors or situations that may result in relapse, deterioration or inappropriate behaviors and develop a plan to deal with those issues. 4. If your coping skills are ineffective and you are in crisis, contact your outpatient providers for direction. If unable to reach your providers, please call the [facility] CRISIS LINE AT , go to the [facility] walk-in center at [address], [address], [place], or go to the closest Emergency Room. 5. Avoid alcohol and un-prescribed drugs. 6. You have been provided with the Mental Health Advance Directives Pamphlet for your review. 7. Your condition is stable for discharge to outpatient level of care, but recovery is an ongoing process. Ifthoughts to harm yourself or others return, follow the safety plan developed during your stay. Planning for a safe return home includes securing weapons. Our treatment team recommends weaponsbe removed from the home until your outpatient provider reassesses your progress. In rare cases where the items themselvescannot be removed, guns and ammunitionshould be secured separatelyand keys stored by a reliable personoutside of the home. If you were admitted on an involuntary commitment, the police or other legal authorities may be involved in this process. AFTERCARE APPOINTMENTS: * Please call your insurance company prior to your scheduled appointment to confirm your aftercare providers are covered. Take your insurance information to your appointments. WHO TO CALL AND WHEN: Medical Emergencies: For questions or emergencies related to your hospital stay, please contact the Inpatient Behavioral Health Unit at [phone]. A valve repairer reclamation is on-call 23/12 for the Behavioral Health Unit for emergencies At any time you feel your situation is an emergency, you may also call 911 immediately. [facility] Crisis Hotline: 813 Pending Studies at Discharge: No Stand-Alone Forms: My [facility], Smoking Cessation Medications and DC Order Prescriptions: New haloperidol 1 mg tablet 3 mg PO BID PRN (Reason: hallucinations) 30 Days Qty: 90 1RF lurasidone [Latuda] 60 mg tablet 60 mg PO PM 30 Days Qty: 30 0RF Rx Instructions: must administer with food (at least 350 calories) Continued buspirone 10 mg tablet 20 mg PO TID (DME) lancing device with lancets [Firefly [employer]uch Delica Plus Lanc Dev] Kit See Rx Instructions .Route Qty: 1 0RF Rx Instructions: test once a day Gemtesa 75 mg tablet 75 mg PO DAILY Qty: 90 3RF montelukast 10 mg tablet 10 mg PO DAILY Qty: 90 3RF losartan [Cozaar] 50 mg tablet 50 mg PO QAM Qty: 90 3RF Rx Instructions: take in morning levothyroxine [Synthroid] 125 mcg tablet 125 mcg PO QAM Qty: 90 3RF atorvastatin 40 mg tablet 40 mg PO HS 90 Days Qty: 90 3RF Rx Instructions: at bedtime ferrous sulfate 325 mg (65 mg iron) tablet,delayed release (DR/EC) 325 mg PO QAM Qty: 90 3RF cholecalciferol (vitamin D3) [Vitamin D3] 25 mcg (1,000 unit) capsule 25 mcg PO QAM Qty: 90 3RF magnesium oxide 400 mg (241.3 mg magnesium) tablet 400 mg PO DAILY Qty: 90 3RF (DME) lancets [OneTouch Delica Plus Lancet] 30 gauge misc See Rx Instructions .Route Qty: 100 3RF Rx Instructions: test QD and as needed metformin 500 mg tablet 1,000 mg PO BID Qty: 360 3RF (DME) OneTouch Ultra Test Strip See Rx Instructions .Route Qty: 100 3RF Rx Instructions: Test blood sugars daily. E11.9 ergocalciferol (vitamin D2) [Vitamin D2] 1,250 mcg (50,000 unit) capsule 50,000 unit PO MONTHLY Qty: 12 0RF Rx Instructions: TAKE ON 1ST DAY OF MONTH nystatin 100,000 unit/gram cream 1 applic topical BID Qty: 30 3RF semaglutide 1 mg/dose (4 mg/3 mL) pen injector 1 mg subcut Q7D Qty: 3 3RF estradiol 1 mg tablet 1 mg PO DAILY Qty: 90 0RF venlafaxine [Effexor XR] 150 mg capsule,extended release 24hr 300 mg PO DAILY clozapine 50 mg tablet 100 mg PO DAILY Rx Instructions: Take at noon clonazepam 0.5 mg tablet 0.5 mg PO TID cyanocobalamin (vitamin B-12) 1,000 mcg capsule 2,000 mcg PO DAILY trazodone 100 mg tablet 150 mg PO HS clozapine 100 mg tablet 400 mg PO HS Changed lamotrigine [Lamictal] 100 mg tablet 200 mg PO HS Qty: 0 0RF Discontinued Latuda 120 mg tablet 120 mg PO DAILY Qty: 30 2RF Rx Instructions: must administer with food (at least 350 calories) Discharge Orders: Discharge Order (Routine); Ordered 12/24/23 Ordered By: Anne Richard Admission Data Admit Date/Time: 12/15/23 21:40 Attending Provider: Anne Richard Admit Provider: Nathan Reilly Primary Care Provider: Niles Tam Other Providers: Nathan Reilly Other Interventions: Discharge Summary Assessment (RN) Last Done: 12/24/23 08:07 PSY Interdisciplinary Discharge Planning Last Done: 12/24/23 09:50 Coding Level of Care Code 02356 D/C day mgmt > 30 min Diagnoses Suicidal ideation R45.851 Auditory hallucinations R44.0 Schizoaffective disorder, depressive type F25.1 Cluster B personality disorder F60.89 Type 2 diabetes mellitus without complication, without long-term current use of insulin E11.9 Diabetes mellitus complication status: without complication Diabetes mellitus manager long term care insulin use: without alf use Iron deficiency anemia D50.9 Urinary incontinence R32 Hypothyroidism, unspecified type E03.9 Hypothyroidism type: unspecified Essential hypertension I10 Hypertension type: essential hypertension Dyslipidemia E78.5 Uncomplicated asthma, unspecified asthma severity, unspecified whether persistent J45.909 Asthma complication type: uncomplicated Asthma persistence: unspecified Asthma severity: unspecified severity Gastro-esophageal reflux K21.9 Obesity E66.9
[2024-01-01] MEDS ORDERED: ERGOCALCIFEROL 1250 MCG (50,000 UNITS) CAP PO SCH (09:00)
== END 2023-12-24 12:06 | disposition home health service (06) | DRG 885 ==
LOC: ED 09:43 → SUATTDRO 21:40 → 3S 21:40

== ENCOUNTER 2024-03-11 17:32 | Inpatient (IN) ==
[2024-03-11 18:39] LABS: Basophils # (auto) 0.01 K/uL (0.00-0.20); Basophils % (auto) 0.1 %; Hematocrit (blood only) 32.5 % (37.0-47.0); Hemoglobin 10.4 g/dl (12.0-16.0); Immature Granulocytes # (auto) 0.05 K/uL (0.01-0.20); Immature Granulocytes % (auto) 0.4 %; Lymphocytes # (auto) 1.94 K/uL (1.20-3.40); Lymphocytes % (auto) 15.3 %; Mean Corpuscular Hemoglobin 26.6 pg (25.0-34.0); Mean Corpuscular Volume 83.1 fL (80.0-100.0); Monocytes # (auto) 0.92 K/uL (0.11-0.59); Monocytes % (auto) 7.3 %; Neutrophils # (auto) 9.76 K/uL (1.40-6.50); Neutrophils % (auto) 76.9 %; Platelet Count 231 K/uL (130-400); RDW Coefficient of Variation 14.3 % (11.5-14.5); RDW Standard Deviation 43.3 fL (36.4-46.3); Red Blood Count 3.91 M/uL (4.20-5.40); White Blood Count 12.68 K/ul (4.8-10.8)
[2024-03-11 19:00] LABS: Alanine Aminotransferase 15 U/L (7-52); Albumin Globulin Ratio 1.5 (0.9-2); Albumin Level 3.9 gm/dl (3.4-5.0); Alkaline Phosphatase 86 U/L (34-104); Anion Gap 12 (3-11); Aspartate Aminotransferase 11 U/L (13-39); Bilirubin,Total 0.3 mg/dl (0.2-1.0); Blood Urea Nitrogen 15 mg/dl (6-23); Calcium 8.5 mg/dl (8.6-10.3); Carbon Dioxide 21 mmol/L (21-32); Chloride 95 mmol/L (98-107); Globulin 2.6 gm/dl (2.5-4.0); Glucose 120 mg/dl (70-99(Fasting)); Potassium 3.8 mmol/L (3.5-5.1); Sodium 128 mmol/L (136-145); Total Protein 6.5 gm/dl (6.0-8.3)
[2024-03-11 19:06] LABS: Troponin I High Sensitivity 2.5 pg/ml (0-14)
[2024-03-11] MEDS: OPTIRAY 320 100ml IV ONE (19:45)
[2024-03-11 20:15] LABS: INR 0.9 (0.9-1.1); Partial Thromboplastin Ratio 1.2; Partial Thromboplastin Time 31 Seconds (21-31); Prothrombin Time 10.3 Seconds (9.0-12.0)
--- NOTE | 2024-03-11 20:16 | CT Scan Report ---
Exam(s): CT ABDOMEN + PELVIS With Contrast IV Amt: 90 ml optiray 320 EXAM: CT Abdomen and Pelvis With Intravenous Contrast CLINICAL HISTORY: Reason for exam: recent stent placement w/ pain. TECHNIQUE: Axial computed tomography images of the abdomen and pelvis with intravenous contrast. CTDI is 28.14 mGy and DLP is 1408.89 mGy-cm. Automated exposure control was utilized for the study. A dose lowering technique was utilized adhering to the principles of ALARA. CONTRAST: Patient received 90 ml optiray 320 of IV contrast COMPARISON: 02/10/24 FINDINGS: Lung bases: Subsegmental atelectasis at the lung bases. Pleural space: Trace pleural fluid bilaterally. ABDOMEN: Liver: Hepatomegaly. Subcentimeter hypoattenuating lesion in the right hepatic lobe (series 2, image 32), indeterminate on the basis of this exam. Gallbladder and bile ducts: Cholelithiasis. No ductal dilation. Pancreas: Unremarkable. No mass. No ductal dilation. Spleen: Splenomegaly measuring 15 cm. Adrenals: Unremarkable. No mass. Kidneys and ureters: Appropriately positioned right ureteral stent. No significant right-sided hydroureteronephrosis. Multiple nonobstructing right kidney stones. Overall stone burden in the right kidney is decreased from prior, especially at the level of the upper pole. Largest residual stones measure up to 5 mm. Nonobstructing left kidney lower pole stone measuring 1.3 cm. No left-sided hydroureteronephrosis. Stomach and bowel: No bowel obstruction. Increased colonic stool and gas may reflect constipation. No mucosal thickening. PELVIS: Appendix: Appendix not identified. No secondary signs of appendicitis. Bladder: Unremarkable. No mass. Reproductive: Hysterectomy. ABDOMEN and PELVIS: Intraperitoneal space: Unremarkable. No free air, significant free fluid, or fluid collection. Bones/joints: No acute fracture. No dislocation. Soft tissues: Unremarkable. Vasculature: Coronary artery atherosclerosis. Atherosclerosis without aortic aneurysm. Lymph nodes: Unremarkable. No enlarged lymph nodes. Tubes, lines and devices: Stranding around the right kidney and right ureter may be related to indwelling stent. IMPRESSION: 1. Appropriately positioned right ureteral stent. No significant right- sided hydroureteronephrosis. Multiple nonobstructing right kidney stones. Overall stone burden in the right kidney is decreased from prior, especially at the level of the upper pole. Largest residual stones measure up to 5 mm. 2. Stranding around the right kidney and right ureter may be related to indwelling stent. Correlate with urinalysis to exclude urinary tract infection/pyelonephritis. 3. Increased colonic stool and gas may reflect constipation. Electronically signed by: Bhakti Westbrook M.D. 03/11/24 20:15 PM
[2024-03-11 20:52] LABS: Appearance Urine Cloudy (Clear); Bilirubin Urine Negative (Negative); Blood Urine 3+ (Negative); Cast Urine Automated 0-2 /lpf (0-2); Color Urine Orange; Glucose Urine UA Negative (Negative); Ketones Urine Negative (Negative); Leukocyte Esterase Urine 3+ (Negative); Nitrite Urine Negative (Negative); Protein Urine 1+ (Negative); RBC Urine Automated >20 /hpf (0-2); Specific Gravity Urine 1.015 (1.000-1.030); Urobilinogen Urine Negative (Negative); pH Urine 5.5 (4.5-7.5)
[2024-03-11 21:11] LABS: Hyaline Casts Urine P /lpf (None Presnt)
[2024-03-11 21:12] LABS: Bacteria Urine Automated 2+ (None Seen)
[2024-03-11 21:13] LABS: Amorphous Sediment Urine Present (None Prsent)
--- NOTE | 2024-03-11 21:31 | Emergency Department Note ---
Impression & Plan UTI (urinary tract infection), Acute hyponatremia, Lightheadedness ED Provider Note NAME: HOWIE HSU AGE: 53 SEX: F : 1970 ARRIVES VIA: Walk-In INFORMANT: Patient, ED PROVIDER(S): Nishant Roque MD CHIEF COMPLAINT: Lightheadedness, near fainting, right-sided flank pain HPI: This is a 53-year-old female presenting for lightheadedness, near fainting and right-sided flank pain. Patient notes that she had some kidney stones that had undergone lithotripsy as well as stent placement 2 days ago. She now reports the dizziness in which she feels lightheaded. She feels that she is unsteady on her feet and may faint. She states she feels overall weak. She also notes persistent right-sided pain despite this stent. It is lessened but now throbbing. She notes no fevers, nausea or vomiting. No dysuria ROS: See above HPI for pertinent positives & negatives. A total of 10 systems reviewed and were otherwise negative. PAST MEDICAL HISTORY: See Below PAST SURGICAL HISTORY: See Below FAMILY HISTORY: See Below SOCIAL HISTORY: See Below HOME MEDICATIONS: See Below ALLERGIES: See Below VITALS: See Below PHYSICAL EXAMINATION: General: resting comfortably in no acute distress Head: Normocephalic and atraumatic Eyes: Normal inspection, extraocular muscles intact Ear, nose, throat: Normal external exam Neck: Normal range of motion Respiratory: lungs clear to auscultation bilaterally Cardiovascular: Regular rate/rhythm, no murmur GI: soft, nontender, no guarding or rebound Extremities: nontender, moves all extremities Neuro: The patient awake and alert, appropriately conversive, no focal deficits, symmetric faces Skin: Warm, dry, and intact MEDICAL DECISION MAKING: This is a 53-year-old female sent for lightheadedness, near fainting and right- sided flank pain. We get screening blood work, urinalysis, CT imaging of the chest/abdomen to evaluate for stent placement. -Patient does have a leukocytosis here to 12.68 otherwise her sodium is 128 -Patient's urinalysis does show signs of UTI at this time, in the setting of patient's recent stenting, this could be contributing. Will give ceftriaxone in addition. -Patient feels unsteady on her feet and unsafe at home -Discussed care with LORRAINE Grigsby for urology who will see the patient. -With patient's hyponatremia, leukocytosis, UTI, give ceftriaxone will require admission at this time. Discussed care with hospitalist service for admission. Differential diagnosis: Infected hardware, UTI, hyponatremia, sepsis, stroke ER treatment provided: See below Independent History obtained from: [facility] interpreted by me: ECG: ECG independently interpreted by me with sinus tachycardia, rate of 107, normal WI, normal QRS, normal QTc, no ST segment elevations consistent with STEMI criteria Cardiac Monitoring: An order was placed for continuous cardiac monitoring. The monitor shows a rate of 94 with sinus rhythm. Laboratory studies: As stated above and show below. Imaging studies: See below. Past Med/Surg History Problem List (Updated 03/11/24 @ 22:13 by Nishant Roque MD) Lightheadedness (Acute) Acute hyponatremia (Acute) UTI (urinary tract infection) (Acute) Encounter for pre-operative examination Auditory hallucinations (Acute) 12/15/23 Facial cellulitis 09/29/23 Bladder pain 01/01/23 Nephrolithiasis Right flank pain 12/05/22 Nocturnal enuresis Urinary incontinence Symptoms of urinary tract infection 11/22/22 Acute hyponatremia 12/25/21 Rash and nonspecific skin eruption 03/07/21 Diarrhea 03/16/20 Obesity Hypomagnesemia 01/01/20 Hepatosplenomegaly Fatty liver Personality disorder Vitamin D deficiency (Acute) Vitamin B12 deficiency (Acute) Tremor (Acute) Seborrheic keratosis (Acute) Iron deficiency anemia (Acute) Hemorrhoids (Acute) Gastro-esophageal reflux (Acute) Eczema (Acute) Chronic sinusitis (Acute) 12/14/18 Anxiety IBS (irritable bowel syndrome) Type 2 diabetes mellitus (Chronic) Hypothyroidism (Chronic) Hypertension (Chronic) Dyslipidemia (Chronic) Asthma (Chronic) Schizoaffective disorder, depressive type (Chronic 01/11/11) Medical History Intentional overdose hx - Denies SI at this time Hemorrhoids Hx: UTI (urinary tract infection) multiple PONV (postoperative nausea and vomiting) "With a really bad headache" History of COVID-19 "A month ago" no hospitalization 02/03/24 - denies issues at this time Personality disorder Schizoaffective disorder, depressive type Type 2 diabetes mellitus Tremor Nephrolithiasis Anemia IBS (irritable bowel syndrome) Hypothyroidism Hepatosplenomegaly pt unsure HTN (hypertension) GERD (gastroesophageal reflux disease) Pt unsure History of abscessed tooth 09/2023 [facility] ER Diarrhea Chronic - imodium Auditory hallucinations denies issues at this time Asthma Anxiety agoraphobia per PAT RN call Suicidal ideations Denies SI at this time Suicidal ideation Denies SI at this time Hypoxemia pt denies Influenza (2018) hx Bacterial pneumonia (01/11/11) pt denies Surgical History Hx of colonoscopy H/O wisdom tooth extraction History of thyroid surgery pt denies H/O: hysterectomy Family History Mother Breast cancer Hypertension Stroke Unknown Hypertension Father Hypertension Heart disease Cancer Grandfather Heart disease Stroke Brother Myocardial infarction Grandmother (Maternal) Colon cancer Grandmother Stroke Denies family history of Ovarian cancer Prostate cancer Social History Smoking Status: Never smoker Tobacco Type: Cigarettes Second Hand Exposure: No; Do You Dip or Chew Tobacco: No; Hx Alcohol Use: No Hx Substance Use: No Preferred Language: Singaporean Communication Ability: Effective Visual Impairment: No Limitations Hearing Ability: Normal Molecular Spectroscopist Required: No Beliefs That Will Affect Care: None marital status: Single Current Living Situation: Alone current occupational status: disabled How many Children do You have: 0 Feels Safe at Home: Yes Childhood Exposure to Second-Hand Smoke: No Physical Activity Frequency: Daily Seatbelt Use: always Sunscreen Use: No Gender Identity: Female Assistive Devices: Glasses, Walker and Wheelchair Allergies Allergies Allergy/AdvReac Type Severity Reaction Status Date / Time doxycycline AdvReac Severe Hearing Verified 03/11/24 22:01 Voices/Depression prednisone AdvReac Severe hallucinati Verified 03/11/24 22:01 ons aspirin AdvReac Intermediate Vomiting Verified 03/11/24 22:01 chlorpromazine AdvReac Intermediate Lightheaded/Shuffling Verified 03/11/24 22:01 Gait Penicillins AdvReac Intermediate Rash/Nausea Verified 03/11/24 22:01 /Vomiting cefdinir AdvReac Mild "it did Verified 03/11/24 22:01 not work" see comment below... levofloxacin AdvReac Unknown Unknown Verified 03/11/24 22:01 NSAIDS (Non-Steroidal AdvReac Unknown Unknown Verified 03/11/24 22:01 Anti-Inflamma quinine AdvReac Unknown Unknown Verified 03/11/24 22:01 theophylline [From [facility]] AdvReac Unknown Unknown Verified 03/11/24 22:01 Home Meds Home Medications Medication Instructions Recorded Confirmed buspirone 10 mg tablet 20 mg PO TID 01/22/19 03/09/24 clonazepam 0.5 mg tablet (Klonopin) 0.5 mg PO TID anxiety 11/14/21 03/09/24 clozapine 50 mg tablet 100 mg PO QDL 12/25/21 03/09/24 venlafaxine 150 mg 300 mg PO QAM 12/25/21 03/09/24 capsule,extended release 24 hr (Effexor XR) clozapine 100 mg tablet (Clozaril) 400 mg PO HS 11/22/22 03/09/24 cyanocobalamin (vitamin B-12) 2,000 mcg PO QAM 01/15/23 03/09/24 1,000 mcg capsule Jyoti Quercetin Phytosome 1 tab PO DAILY 03/01/24 03/09/24 acetaminophen 500 mg tablet 1,000 mg PO QID PRN Pain 03/01/24 03/09/24 cranberry fruit concentrate 250 mg 500 mg PO DAILY 03/01/24 03/09/24 chewable tablet (Azo Cranberry) estradiol 1 mg tablet (Estrace) 1 mg PO QAM 03/01/24 03/09/24 folic acid 400 mcg tablet 400 mcg PO QAM 03/01/24 03/09/24 loperamide 2 mg tablet (Imodium 2 mg PO DAILY PRN Diarrhea 03/01/24 03/09/24 A-D) lurasidone 80 mg tablet (Latuda) 80 mg PO QPM 03/01/24 03/09/24 magnesium oxide 400 mg (241.3 mg 400 mg PO QAM 03/01/24 03/09/24 magnesium) tablet montelukast 10 mg tablet 10 mg PO HS 03/01/24 03/09/24 (Singulair) nystatin 100,000 unit/gram topical 1 applic topical DAILY 03/01/24 03/09/24 cream trazodone 150 mg tablet 150 mg PO HS 03/01/24 03/09/24 vibegron 75 mg tablet (Gemtesa) 75 mg PO HS 03/01/24 03/09/24 semaglutide 1 mg/dose (4 mg/3 mL) 1 mg subcut Q7D 03/09/24 03/09/24 subcutaneous pen injector (Ozempic) Previous Rx's Medication Instructions Recorded lancing device with lancets kit #1 ea 11/20/22 (Joint LoyaltyTouch Delica Plus Lancing Device kit) atorvastatin 40 mg tablet 40 mg PO HS 90 days #90 tabs 05/14/23 cholecalciferol (vitamin D3) 25 25 mcg PO QAM #90 caps 05/14/23 mcg (1,000 unit) capsule (Vitamin D3) ferrous sulfate 325 mg (65 mg 325 mg PO QAM #90 tabs 05/14/23 iron) tablet,delayed release levothyroxine 125 mcg tablet 125 mcg PO QAM #90 tabs 05/14/23 (Synthroid) losartan 50 mg tablet (Cozaar) 50 mg PO QAM #90 tabs 05/14/23 blood sugar diagnostic [facility] Ultra Test strips) lancets 30 gauge ([facility]oyal[facility] #[facility] ea 07/14/23 Plus Lancet) metformin 500 mg tablet 1,000 mg (2 x 500 mg) PO BID #360 07/14/23 tabs ergocalciferol (vitamin D2) 1,250 50,000 unit PO MONTHLY #12 caps 07/28/23 mcg (50,000 unit) capsule (Vitamin D2) haloperidol 1 mg tablet 3 mg (3 x 1 mg) PO BID PRN 12/24/23 hallucinations 30 days #90 tabs lamotrigine 100 mg tablet 200 mg (2 x 100 mg) PO HS #0 tabs 12/24/23 (Lamictal) albuterol sulfate 90 mcg/actuation 2 puff inhalation .Q4-6H PRN 02/03/24 aerosol inhaler shortness of breath or wheezing #8.5 grams hydrocodone 5 mg-acetaminophen 325 1 tab PO Q6H PRN pain #20 tabs 03/09/24 mg tablet sulfamethoxazole 800 1 tab PO BID #14 tabs 03/09/24 mg-trimethoprim 160 mg tablet (Bactrim DS) Results & Data (ED) Vital Signs Vital Signs - 24 hr 03/11/24 17:46 03/11/24 18:57 03/11/24 19:22 Temperature 36.8 C Temperature Source Oral Pulse Rate 109 H 99 H Pulse Rate [Apical] 94 H Respiratory Rate 18 19 Respiratory Effort / Characteristics Non-Labored Spontaneous Respiratory Depth Normal Respiratory Pattern Blood Pressure 103/67 Blood Pressure [Right Arm] 123/73 Blood Pressure Mean 79 Blood Pressure Mean [Right Arm] 89 Pulse Oximetry 100 97 Oxygen Delivery Method Room Air Room Air Sepsis Recent Fever Within 48 Hours No Sepsis New/Unexplained Change in Mental Status No Sepsis Action Taken by Nursing No Action Required 03/11/24 19:22 03/11/24 19:22 03/11/24 21:00 Temperature Temperature Source Pulse Rate Pulse Rate [Apical] 94 H Respiratory Rate 18 Respiratory Effort / Characteristics Non-Labored Spontaneous Respiratory Depth Normal Respiratory Pattern Regular Blood Pressure Blood Pressure [Right Arm] 133/81 Blood Pressure Mean Blood Pressure Mean [Right Arm] 98 Pulse Oximetry 97 97 97 Oxygen Delivery Method Room Air Room Air Room Air Sepsis Recent Fever Within 48 Hours Sepsis New/Unexplained Change in Mental Status Sepsis Action Taken by Nursing Laboratory Data 03/11/24 18:24 03/11/24 18:24 Lab Results 03/11/24 03/11/24 03/11/24 Range/Units 18:24 19:13 20:31 WBC 12.68 H (4.8-10.8) K/ul RBC 3.91 L (4.20-5.40) M/uL Hgb 10.4 L (12.0-16.0) g/dl Hct 32.5 L (37.0-47.0) % MCV 83.1 (80.0-100.0) fL MCH 26.6 (25.0-34.0) pg MCHC 32.0 (32.0-36.0) g/dL RDW Std Deviation 43.3 (36.4-46.3) fL RDW Coeff of Bret 14.3 (11.5-14.5) % Plt Count 231 (130-400) K/uL MPV 9.0 L (9.4-12.4) fL Immature Gran % (Auto) 0.4 % Neut % (Auto) 76.9 % Lymph % (Auto) 15.3 % Wolfe % (Auto) 7.3 % Eos % (Auto) 0.0 % Baso % (Auto) 0.1 % Neut # (Auto) 9.76 H (1.40-6.50) K/uL Lymph # (Auto) 1.94 (1.20-3.40) K/uL Wolfe # (Auto) 0.92 H (0.11-0.59) K/uL Eos # (Auto) 0.00 (0.00-0.50) K/uL Baso # (Auto) 0.01 (0.00-0.20) K/uL Immature Gran # (Auto) 0.05 (0.01-0.20) K/uL PT 10.3 (9.0-12.0) Seconds INR 0.9 (0.9-1.1) APTT 31 (21-31) Seconds PTT Ratio 1.2 Sodium 128 L (136-145) mmol/L Potassium 3.8 (3.5-5.1) mmol/L Chloride 95 L (98-107) mmol/L Carbon Dioxide 21 (21-32) mmol/L Anion Gap 12 H (3-11) BUN 15 (6-23) mg/dl Creatinine 1.00 (0.6-1.2) mg/dl Est Cr Clr Drug Dosing Not Reportable eGFR 66.53 BUN/Creatinine Ratio 15.0 (10-20) Glucose 120 H (70-99(Fasting)) mg/dl Calcium 8.5 L (8.6-10.3) mg/dl Total Bilirubin 0.3 (0.2-1.0) mg/dl AST 11 L (13-39) U/L ALT 15 (7-52) U/L Alkaline Phosphatase 86 (34-104) U/L Troponin I High Sens 2.5 (0-14) pg/ml Total Protein 6.5 (6.0-8.3) gm/dl Albumin 3.9 (3.4-5.0) gm/dl Globulin 2.6 (2.5-4.0) gm/dl Albumin/Globulin Ratio 1.5 (0.9-2) Urine Color [place] Urine Appearance Cloudy A (Clear) Urine pH 5.5 (4.5-7.5) Ur Specific [place] 1.015 (1.000-1.030) Urine Protein 1+ H (Negative) Urine Glucose (UA) Negative (Negative) Urine Ketones Negative (Negative) Urine Blood 3+ H (Negative) Urine Nitrite Negative (Negative) Urine Bilirubin Negative (Negative) Urine Urobilinogen Negative (Negative) Ur Leukocyte Esterase 3+ H (Negative) Urine WBC (Auto) 11-20 H (0-5) /hpf Urine RBC (Auto) >20 H (0-2) /hpf U Hyaline Cast (Auto) 0-2 (0-2) /lpf U Epithel Cells (Auto) 3-5 H (0-2) /hpf Urine Bacteria (Auto) 2+ H (None Seen) Amorphous Sediment Present A (None Prsent) Hyaline Casts P (None Presnt) /lpf Administered Medications Discontinued Medications Ceftriaxone Sodium (Rocephin) 2,000 mg in 50 mls @ 100 mls/hr IV NOW STA Stop: 03/11/24 21:54 Last Admin: 03/11/24 21:40 Dose: 100 mls/hr Documented By: TRISTAN Ioversol (Optiray 320 100ml) 90 ml IV ONCE ONE Stop: 03/11/24 19:45 Last Admin: 03/11/24 19:45 Dose: 90 ml Documented By: YUSEF Imaging Data Radiologist's Impression: Chest X-Ray 03/11/24 17:49 SINGLE VIEW CHEST CLINICAL HISTORY: Atypical chest pain. FINDINGS: An AP upright chest radiograph is compared to study dated 02/06/2024. The examination is degraded by patient rotation. The cardiomediastinal silhouette is unremarkable. The lungs and pleural spaces are clear. No pneumothorax is seen. The bony thorax is grossly intact. A right ureteral stent is partially visualized. IMPRESSION: No active disease in the chest. ACT 112: Negative or not required by law. Electronically signed by: Errol Montiel M.D. 03/11/2024 9:29 PM Abdomen/Pelvis CT 03/11/24 19:20 Exam(s): CT ABDOMEN + PELVIS With Contrast IV Amt: 90 ml optiray 320 EXAM: CT Abdomen and Pelvis With Intravenous Contrast CLINICAL HISTORY: Reason for exam: recent stent placement w/ pain. TECHNIQUE: Axial computed tomography images of the abdomen and pelvis with intravenous contrast. CTDI is 28.14 mGy and DLP is 1408.89 mGy-cm. Automated exposure control was utilized for the study. A dose lowering technique was utilized adhering to the principles of ALARA. CONTRAST: Patient received 90 ml optiray 320 of IV contrast COMPARISON: 02/10/24 FINDINGS: Lung bases: Subsegmental atelectasis at the lung bases. Pleural space: Trace pleural fluid bilaterally. ABDOMEN: Liver: Hepatomegaly. Subcentimeter hypoattenuating lesion in the right hepatic lobe (series 2, image 32), indeterminate on the basis of this exam. Gallbladder and bile ducts: Cholelithiasis. No ductal dilation. Pancreas: Unremarkable. No mass. No ductal dilation. Spleen: Splenomegaly measuring 15 cm. Adrenals: Unremarkable. No mass. Kidneys and ureters: Appropriately positioned right ureteral stent. No significant right-sided hydroureteronephrosis. Multiple nonobstructing right kidney stones. Overall stone burden in the right kidney is decreased from prior, especially at the level of the upper pole. Largest residual stones measure up to 5 mm. Nonobstructing left kidney lower pole stone measuring 1.3 cm. No left-sided hydroureteronephrosis. Stomach and bowel: No bowel obstruction. Increased colonic stool and gas may reflect constipation. No mucosal thickening. PELVIS: Appendix: Appendix not identified. No secondary signs of appendicitis. Bladder: Unremarkable. No mass. Reproductive: Hysterectomy. ABDOMEN and PELVIS: Intraperitoneal space: Unremarkable. No free air, significant free fluid, or fluid collection. Bones/joints: No acute fracture. No dislocation. Soft tissues: Unremarkable. Vasculature: Coronary artery atherosclerosis. Atherosclerosis without aortic aneurysm. Lymph nodes: Unremarkable. No enlarged lymph nodes. Tubes, lines and devices: Stranding around the right kidney and right ureter may be related to indwelling stent. IMPRESSION: 1. Appropriately positioned right ureteral stent. No significant right- sided hydroureteronephrosis. Multiple nonobstructing right kidney stones. Overall stone burden in the right kidney is decreased from prior, especially at the level of the upper pole. Largest residual stones measure up to 5 mm. 2. Stranding around the right kidney and right ureter may be related to indwelling stent. Correlate with urinalysis to exclude urinary tract infection/pyelonephritis. 3. Increased colonic stool and gas may reflect constipation. Electronically signed by: Bhakti Westbrook M.D. 03/11/24 20:15 PM Discharge Plan Visit Data Chief Complaint: Vertigo Stated Complaint: RECENT KIDNE STONE,DIZZY AND BUSY, HEMTURIA ED Provider: Nishant Roque Discharge Problem: UTI (urinary tract infection), Acute hyponatremia, Lightheadedness Forms Stand Alone Forms: My [facility] Prescriptions Prescriptions: No Action buspirone 10 mg tablet 20 mg PO TID (DME) lancing device with lancets [OneTouch Delica Plus Lanc Dev] Kit See Rx Instructions .Route Qty: 1 0RF Rx Instructions: test once a day losartan [Cozaar] 50 mg tablet 50 mg PO QAM Qty: 90 3RF Rx Instructions: take in morning levothyroxine [Synthroid] 125 mcg tablet 125 mcg PO QAM Qty: 90 3RF atorvastatin 40 mg tablet 40 mg PO HS 90 Days Qty: 90 3RF Rx Instructions: at bedtime ferrous sulfate 325 mg (65 mg iron) tablet,delayed release (DR/EC) 325 mg PO QAM Qty: 90 3RF cholecalciferol (vitamin D3) [Vitamin D3] 25 mcg (1,000 unit) capsule 25 mcg PO QAM Qty: 90 3RF (DME) lancets [OneTouch Delica Plus Lancet] 30 gauge misc See Rx Instructions .Route Qty: 100 3RF Rx Instructions: test QD and as needed metformin 500 mg tablet 1,000 mg PO BID Qty: 360 3RF (DME) OneTouch Ultra Test Strip See Rx Instructions .Route Qty: 100 3RF Rx Instructions: Test blood sugars daily. E11.9 ergocalciferol (vitamin D2) [Vitamin D2] 1,250 mcg (50,000 unit) capsule 50,000 unit PO MONTHLY Qty: 12 0RF Rx Instructions: TAKE ON 1ST DAY OF MONTH venlafaxine [Effexor XR] 150 mg capsule,extended release 24hr 300 mg PO QAM clozapine 50 mg tablet 100 mg PO QDL Rx Instructions: Take at noon clonazepam [Klonopin] 0.5 mg tablet 0.5 mg PO TID cyanocobalamin (vitamin B-12) 1,000 mcg capsule 2,000 mcg PO QAM albuterol sulfate 90 mcg/actuation HFA aerosol inhaler 2 puff inhalation .Q4-6H PRN (Reason: shortness of breath or wheezing) Qty: 8.5 0RF clozapine [Clozaril] 100 mg tablet 400 mg PO HS lamotrigine [Lamictal] 100 mg tablet 200 mg PO HS Qty: 0 0RF haloperidol 1 mg tablet 3 mg PO BID PRN (Reason: hallucinations) 30 Days Qty: 90 1RF loperamide [Imodium A-D] 2 mg Tablet 2 mg PO DAILY PRN (Reason: Diarrhea) folic acid 400 mcg tablet 400 mcg PO QAM acetaminophen 500 mg Tablet 1,000 mg PO QID PRN (Reason: Pain) trazodone 150 mg tablet 150 mg PO HS lurasidone [Latuda] 80 mg tablet 80 mg PO QPM Azo Cranberry 250 mg Tablet,Chewable 500 mg PO DAILY Gemtesa 75 mg tablet 75 mg PO HS Jyoti Quercetin Phytosome 1 tab PO DAILY magnesium oxide 400 mg (241.3 mg magnesium) tablet 400 mg PO QAM estradiol [Estrace] 1 mg tablet 1 mg PO QAM nystatin 100,000 unit/gram cream 1 applic topical DAILY montelukast [Singulair] 10 mg tablet 10 mg PO HS Ozempic 1 mg/dose (4 mg/3 mL) pen injector 1 mg subcut Q7D Rx Instructions: Friday hydrocodone-acetaminophen 5-325 mg tablet 1 tab PO Q6H PRN (Reason: pain) Qty: 20 0RF sulfamethoxazole-trimethoprim [Bactrim DS] 800-160 mg tablet 1 tab PO BID Qty: 14 0RF Referrals Referrals: Niles Tam MD [Primary Care Provider] -
--- NOTE | 2024-03-11 21:32 | XRay Report ---
SINGLE VIEW CHEST CLINICAL HISTORY: Atypical chest pain. FINDINGS: An AP upright chest radiograph is compared to study dated 02/06/2024. The examination is degr aded by patient rotation. The cardiomediastinal silhouette is unremarkable. The lungs and pleural [place] are clear. No pneumothorax is seen. The bony thorax is grossly intact. A right ureteral stent is partially visualized. IMPRESSION: No active disease in the chest. ACT 112: Negative or not required by law. Electronically signed by: Errol Montiel M.D. 03/11/2024 9:29 PM
[2024-03-11] MEDS: cefTRIAXone SODIUM 2,000 MG/50 ML BAG IV STA (21:40)
--- NOTE | 2024-03-11 21:51 | History & Physical Report ---
Date of Service March 11, 2024 Assessment & Plan (1) Lightheadedness: (2) Acute hyponatremia: (3) UTI (urinary tract infection): (4) S/P ureteral stent placement: (5) Gastro-esophageal reflux: (6) Type 2 diabetes mellitus: (7) Hypothyroidism: (8) Hypertension: (9) Dyslipidemia: (10) Schizoaffective disorder, depressive type: (11) Asthma: Plan Leisa is a 53F w/ PMH of nephrolithiasis, urinary incontinence, HSM, fatty liver disease, personality/schizoaffective disorder, iron deficiency anemia, GERD, IBS, anxiety, hypothyroidism, HTN, HLD, asthma who presented for lightheadedness following cystoscopy with laser lithotripsy and insertion of a right ureteral stent 03/09/24. S/p Cystoscopy/Lithotripsy w/ R Stent Placement Abnormal Urinalysis Post-op vs UTI - Patient w/ recent urologic procedure 03/09/24 - New onset lightheadedness/weakness - Hemodynamically stable, afebrile - CTAP w/ appropriately positioned R ureteral stent and stranding - Urinalysis 1+ blood, 3+ Leuks, 3+ Blood, and 2+ bacteria - Potential overlying UTI - Rocephin started in ED, continue on admission - Urology consulted, appreciate recommendations Agree w/ appropriate stent positioning Encouraged ongoing antibiotics Hyponatremia (128) - Acute, potential underlying cause of symptoms - Patient euvolemic to hypovolemic on exam - Urine osm, Serum osm, and Urine Na ordered - IVF started on admission w/ NSS at mIVF rate - Adjust pending labs Chronic Conditions - Schizoaffective disorder - continue home meds - GERD - continu w/ PPI - Anxiety - continue home meds - HTN/HLD - continue home meds - Hypothyroid - continue home meds - DM2: home meds held, ACHS checks, SSI inpatient Code: Full Diet: NPO DVT: SCD Dispo: Med History of Present Illness Chief Complaint: Dizziness Primary Care Provider: Niles Tam MD Leisa is a 53F nephrolithiasis, urianry incontinence, HSM, fatty liver disease, personality/schizoaffective disorder, iron deficiency anemia, GERD, IBS, anxiety, hypothyroidism, HTN, HLD, asthma who presented for lightheadedness following cystoscopy with laser lithotripsy and insertion of a right ureteral stent 03/09/24. Patient was recovering at home w/o concern until she developed significant lightheadedness without syncope over the last 12 hours which prompted her to present to the hospital tonight. No chest pain or dyspnea noted. Patient states that she is unable to function at home and needs to stay in the hospital due to profound weakness. She denies fevers, chills, nausea, or emesis. She is experiencing abdominal pain and dysuria but this is not increased from post- procedure. She mentioned concern about blood in her urine w/ some clots, but this has not progressed since post-op. Patient continues to eat, drink, and move her bowels without incident - she notes a good appetite. Patient stated that she is to have another urologic procedure in the coming weeks and does not want to miss that. Patient notes that her pain is well controlled at present. Medication Changes: None ED Course: Ceftriaxone 2g @ 2140 Allergies Allergy/AdvReac Type Severity Reaction Status Date / Time doxycycline AdvReac Severe Hearing Verified 03/11/24 22:01 Voices/Depression prednisone AdvReac Severe hallucinati Verified 03/11/24 22:01 ons aspirin AdvReac Intermediate Vomiting Verified 03/11/24 22:01 chlorpromazine AdvReac Intermediate Lightheaded/Shuffling Verified 03/11/24 22:01 Gait Penicillins AdvReac Intermediate Rash/Nausea Verified 03/11/24 22:01 /Vomiting cefdinir AdvReac Mild "it did Verified 03/11/24 22:01 not work" see comment below... levofloxacin AdvReac Unknown Unknown Verified 03/11/24 22:01 NSAIDS (Non-Steroidal AdvReac Unknown Unknown Verified 03/11/24 22:01 Anti-Inflamma quinine AdvReac Unknown Unknown Verified 03/11/24 22:01 theophylline [From Matias-Dur] AdvReac Unknown Unknown Verified 03/11/24 22:01 Home Medications Medication Instructions Recorded Confirmed Type buspirone 10 mg tablet 20 mg PO TID 01/22/19 03/11/24 History clonazepam 0.5 mg tablet (Klonopin) 0.5 mg PO TID anxiety 11/14/21 03/11/24 History clozapine 50 mg tablet 100 mg PO QDL 12/25/21 03/11/24 History venlafaxine 150 mg 300 mg PO QAM 12/25/21 03/11/24 History capsule,extended release 24 hr (Effexor XR) lancing device with lancets kit #1 ea 11/20/22 03/01/24 Rx (OneTouch Delica Plus Lancing Device kit) clozapine 100 mg tablet (Clozaril) 400 mg PO HS 11/22/22 03/11/24 History cyanocobalamin (vitamin B-12) 2,000 mcg PO QAM 01/15/23 03/11/24 History 1,000 mcg capsule atorvastatin 40 mg tablet 40 mg PO HS 90 days #90 tabs 05/14/23 03/11/24 Rx cholecalciferol (vitamin D3) 25 25 mcg PO QAM #90 caps 05/14/23 03/11/24 Rx mcg (1,000 unit) capsule (Vitamin D3) ferrous sulfate 325 mg (65 mg 325 mg PO QAM #90 tabs 05/14/23 03/11/24 Rx iron) tablet,delayed release levothyroxine 125 mcg tablet 125 mcg PO QAM #90 tabs 05/14/23 03/11/24 Rx (Synthroid) losartan 50 mg tablet (Cozaar) 50 mg PO QAM #90 tabs 05/14/23 03/11/24 Rx blood sugar diagnostic (OneTouch #100 ea 07/14/23 03/01/24 Rx Ultra Test strips) lancets 30 gauge ([facility] 07/14/23 03/01/24 Rx Plus Lancet) metformin 500 mg tablet 1,000 mg (2 x 500 mg) PO BID #360 07/14/23 03/11/24 Rx tabs ergocalciferol (vitamin D2) 1,250 50,000 unit PO MONTHLY #12 caps 07/28/2303/11 Rx mcg (50,000 unit) capsule (Vitamin D2) haloperidol 1 mg tablet 3 mg (3 x 1 mg) PO BID PRN 12/24/23 03/11/24 Rx hallucinations 30 days #90 tabs lamotrigine 100 mg tablet 200 mg (2 x 100 mg) PO HS #0 tabs 12/24/23 03/11/24 Rx (Lamictal) albuterol sulfate 90 mcg/actuation 2 puff inhalation .Q4-6H PRN 02/03/24 03/11/24 Rx aerosol inhaler shortness of breath or wheezing #8.5 grams Jyoti Quercetin Phytosome 1 tab PO DAILY 03/01/24 03/11/24 History acetaminophen 500 mg tablet 1,000 mg PO QID PRN Pain 03/01/24 03/11/24 History cranberry fruit concentrate 250 mg 500 mg PO DAILY 03/01/24 03/11/24 History chewable tablet (Azo Cranberry) estradiol 1 mg tablet (Estrace) 1 mg PO QAM 03/01/24 03/11/24 History folic acid 400 mcg tablet 400 mcg PO QAM 03/01/24 03/11/24 History loperamide 2 mg tablet (Imodium 2 mg PO DAILY PRN Diarrhea 03/01/24 03/11/24 History A-D) lurasidone 80 mg tablet (Latuda) 80 mg PO QPM 03/01/24 03/11/24 History magnesium oxide 400 mg (241.3 mg 400 mg PO QAM 03/01/24 03/11/24 History magnesium) tablet montelukast 10 mg tablet 10 mg PO HS 03/01/24 03/11/24 History (Singulair) trazodone 150 mg tablet 150 mg PO HS 03/01/24 03/11/24 History vibegron 75 mg tablet (Gemtesa) 75 mg PO HS 03/01/24 03/11/24 History semaglutide 1 mg/dose (4 mg/3 mL) 1 mg subcut Q7D 03/09/24 03/11/24 History subcutaneous pen injector (Ozempic) Past Med/Surg History Problem List (Updated 03/12/24 @ 07:44 by Burton Bolanos MD) Complicated UTI (urinary tract infection) S/P ureteral stent placement Lightheadedness (Acute) Acute hyponatremia (Acute) UTI (urinary tract infection) (Acute) Encounter for pre-operative examination Auditory hallucinations (Acute) 12/15/23 Facial cellulitis 09/29/23 Bladder pain 01/01/23 Nephrolithiasis Right flank pain 12/05/22 Nocturnal enuresis Urinary incontinence Symptoms of urinary tract infection 11/22/22 Acute hyponatremia 12/25/21 Rash and nonspecific skin eruption 03/07/21 Diarrhea 03/16/20 Obesity Hypomagnesemia 01/01/20 Hepatosplenomegaly Fatty liver Personality disorder Vitamin D deficiency (Acute) Vitamin B12 deficiency (Acute) Tremor (Acute) Seborrheic keratosis (Acute) Iron deficiency anemia (Acute) Hemorrhoids (Acute) Gastro-esophageal reflux (Acute) Eczema (Acute) Chronic sinusitis (Acute) 12/14/18 Anxiety IBS (irritable bowel syndrome) Type 2 diabetes mellitus (Chronic) Hypothyroidism (Chronic) Hypertension (Chronic) Dyslipidemia (Chronic) Asthma (Chronic) Schizoaffective disorder, depressive type (Chronic 01/11/11) Medical History Intentional overdose hx - Denies SI at this time Hemorrhoids Hx: UTI (urinary tract infection) multiple PONV (postoperative nausea and vomiting) "With a really bad headache" History of COVID-19 "A month ago" no hospitalization 02/03/24 - denies issues at this time Personality disorder Schizoaffective disorder, depressive type Type 2 diabetes mellitus Tremor Nephrolithiasis Anemia IBS (irritable bowel syndrome) Hypothyroidism Hepatosplenomegaly pt unsure HTN (hypertension) GERD (gastroesophageal reflux disease) Pt unsure History of abscessed tooth 09/2023 [facility] ER Diarrhea Chronic - imodium Auditory hallucinations denies issues at this time Asthma Anxiety agoraphobia per PAT RN call Suicidal ideations Denies SI at this time Suicidal ideation Denies SI at this time Hypoxemia pt denies Influenza (2019) hx Bacterial pneumonia (01/11/11) pt denies Surgical History Hx of colonoscopy H/O wisdom tooth extraction History of thyroid surgery pt denies H/O: hysterectomy Family History Mother Breast cancer Hypertension Stroke Unknown Hypertension Father Hypertension Heart disease Cancer Grandfather Heart disease Stroke Brother Myocardial infarction Grandmother (Maternal) Colon cancer Grandmother Stroke Denies family history of Ovarian cancer Prostate cancer Social History Smoking Status: Never smoker Tobacco Type: Cigarettes Smoking End Date: 2008; Second Hand Exposure: No; Do You Dip or Chew Tobacco: No; Tobacco Cessation Education Requested by Patient: No Hx Alcohol Use: No Hx Substance Use: No Preferred Language: Bhutanese Communication Ability: Effective Visual Impairment: No Limitations Hearing Ability: Normal Health Administrator Required: No Beliefs That Will Affect Care: None marital status: Single Current Living Situation: Alone current occupational status: disabled How many Children do You have: 0 Other Information That Helps Us Care for You: No Feels Safe at Home: Yes Safety Concerns: Feels Safe At This Time Childhood Exposure to Second-Hand Smoke: No Physical Activity Frequency: Daily Seatbelt Use: always Sunscreen Use: No Gender Identity: Female Assistive Devices: Walker Physical Exam Physical Exam: Gen: NAD, alert, flattened affect HEENT: Supple, no LAD, no thyromegaly, dry mucous membranes Resp:Non-labored, no wheezing/rhonchi/rales, CTAB CV:RRR, normal S1/S2, no M/R/G Abd: Soft, non-distended, mild suprapubic and RLQ TTP, normoactive bowels, no masses Extr: 2+ dp bilaterally, no edema Skin: No rashes lesions or erythema Results & Data Results & Data Vital Signs (Past 12 Hours) Vital Signs Temp Pulse Pulse Resp BP BP Pulse Ox 03/11/24 19:22 97 03/11/24 19:22 97 03/11/24 19:22 94 H 19 123/73 97 03/11/24 18:57 99 H 03/11/24 17:46 36.8 C 109 H 18 103/67 100 O2 Del Method 03/11/24 19:22 Room Air 03/11/24 19:22 Room Air 03/11/24 19:22 Room Air 03/11/24 18:57 03/11/24 17:46 Room Air Supervising Physician Co-Signing Physician Notes Attending addendum: I have physically seen this patient, have supervised the medical residents activities, and agree with the H&P unless as otherwise noted. Assessment and Plan: Complicated UTI/status post cystoscopy with lithotripsy and right ureteral stent placement- Follow urine culture and sensitivity Empiric ceftriaxone 2 g IV daily IV fluids as noted Consult urology Hyponatremia- Sodium 128 on admission Serum and urine osmolalities pending IV fluids as noted Further treatment pending results of above Diabetes mellitus- Holding outpatient regimen Placed on Accu-Cheks with NovoLog SSI Hypertension- Holding losartan Resident Activity Tracking Resident Involvement: Resident Care Provided Care Provided: Adult Hospital Medicine (6) Type 2 diabetes mellitus Diabetes mellitus complication status: without complication 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
--- NOTE | 2024-03-11 21:59 | Urology Consultation ---
<Statement entered by Marko Duke MD - 03/12/24 06:50> I agree with the above documentation. 53-year-old female with hyponatremia, possibly UTI s/p recent urologic procedure. Her right ureteral stent appears to be in good position. Her left kidney has a large stone but no evidence of obstruction. Urinalysis suggestive of infection. I agree with broad-spectrum antibiotics, narrowing coverage as culture data becomes available. Urology will follow along. -Marko Duke MD. Date of Consultation March 11, 2024 Assessment & Plan (1) UTI (urinary tract infection): I discussed with the treating clinician emergency department the patient is being admitted on the hospitalist service. Treating emergency room physician does note that he feels hyponatremia may be a plan the patient's overall weakness. Will defer management of this to the primary service From a urologic perspective we recommend the following: Does appear that the patient may have a urinary tract infection. She has received antibiotics in form of Rocephin which should continue. Appropriate cultures have been sent and antibiotics be tailored based on these results The patient appears to have adequate pain control related to her ureteral stent The patient is concerned that she is scheduled for another urologic procedure next week. I did inform her that if she remains hospitalized we will inform her urologist and appropriate plans can be made at that time Additional recommendations be forthcoming based on her clinical course as it unfolds History of Present Illness Reason for Consultation: UTI status post ureteral stent placement History of Present Illness This is a 53-year-old female who is known to [facility] physician group urology. The patient underwent a urologic procedure with Dr. Georges Magdaleno on 03/09/2024on this day the patient underwent a cystoscopy with laser lithotripsy and insertion of a right ureteral stent. Patient notes that she is scheduled for a similar procedure on the contralateral side next week. Patient notes that she was initially doing well at home but presented to the emergency department because over the past 12 to 24 hours she feels generally weak and cannot function at home. She notes that she feels lightheaded without any vertigo. I question the patient on a multitude of symptoms and she denies any fevers, shakes, or chills. She denies any nausea or vomiting and is tolerating oral intake. She notes that she is urinating without any dysuria but does note some hematuria without blood clots. She has not had any falls or head injuries. She notes that her bowels are moving. She denies any chest pain or shortness of breath. Since arrival to the emergency department the patient has had labs and imaging which I independent reviewed. A chest x-ray showed no evidence of pneumonia. A CT scan of the abdomen pelvis showed the patient had a right ureteral stent which was in good position. There is no right-sided hydronephrosis. There is multiple obstructing right kidney stones noted with a decreased stone burden noted from prior CT scans. There was some stranding around the right kidney felt to be related to an indwelling stent. Labs included a CBC were white blood cell count was elevated 12.6. Hemoglobin and hematocrit were 10.4 and 32.5. Platelet count was normal. Coagulation studies were normal. Chemistry profile showed sodium was 128 with a normal potassium. BUN and creatinine were normal. Urinalysis showed cloudy urine which was negative for nitrites. The patient had 3+ leukocyte esterase and pyuria with 11-20 white blood cells per high-power field. There is 2+ bacteria noted on this study. At the time of my interview she was resting comfortably bed she was in no distress. Allergies Allergy/AdvReac Type Severity Reaction Status Date / Time doxycycline AdvReac Severe Hearing Verified 03/09/24 06:20 Voices/Depression prednisone AdvReac Severe hallucinati Verified 03/09/24 06:20 ons aspirin AdvReac Intermediate Vomiting Verified 03/09/24 06:20 chlorpromazine AdvReac Intermediate Lightheaded/Shuffling Verified 03/09/24 06:20 Gait Penicillins AdvReac Intermediate Rash/Nausea Verified 03/09/24 06:20 /Vomiting cefdinir AdvReac Mild "it did Verified 03/09/24 06:20 not work" see comment below... levofloxacin AdvReac Unknown Unknown Verified 03/09/24 06:20 NSAIDS (Non-Steroidal AdvReac Unknown Unknown Verified 03/09/24 06:20 Anti-Inflamma quinine AdvReac Unknown Unknown Verified 03/09/24 06:20 theophylline [From [facility]-Dur] AdvReac Unknown Unknown Verified 03/09/24 06:20 Home Medications Medication Instructions Recorded Confirmed Type buspirone 10 mg tablet 20 mg PO TID 01/22/19 03/09/24 History clonazepam 0.5 mg tablet (Klonopin) 0.5 mg PO TID anxiety 11/14/21 03/09/24 History clozapine 50 mg tablet 100 mg PO QDL 12/25/21 03/09/24 History venlafaxine 150 mg 300 mg PO QAM 12/25/21 03/09/24 History capsule,extended release 24 hr (Effexor XR) lancing device with lancets kit #1 ea 11/20/22 03/01/24 Rx (OneTouch Delica Plus Lancing Device kit) clozapine 100 mg tablet (Clozaril) 400 mg PO HS 11/22/22 03/09/24 History cyanocobalamin (vitamin B-12) 2,000 mcg PO QAM 01/15/23 03/09/24 History 1,000 mcg capsule atorvastatin 40 mg tablet 40 mg PO HS 90 days #90 tabs 05/14/23 03/09/24 Rx cholecalciferol (vitamin D3) 25 25 mcg PO QAM #90 caps 05/14/23 03/09/24 Rx mcg (1,000 unit) capsule (Vitamin D3) ferrous sulfate 325 mg (65 mg 325 mg PO QAM #90 tabs 05/14/23 03/09/24 Rx iron) tablet,delayed release levothyroxine 125 mcg tablet 125 mcg PO QAM #90 tabs 05/14/23 03/09/24 Rx (Synthroid) losartan 50 mg tablet (Cozaar) 50 mg PO QAM #90 tabs 05/14/23 03/09/24 [facility] 07/14/23 03/01/24 Rx Ultra Test strips) lancets 30 gauge ([facility] 07/14/23 03/01/24 Rx Plus Lancet) metformin 500 mg tablet 1,000 mg (2 x 500 mg) PO BID #360 07/14/23 03/09/24 Rx tabs ergocalciferol (vitamin D2) 1,250 50,000 unit PO MONTHLY #12 caps 07/28/23 03/09/24 Rx mcg (50,000 unit) capsule (Vitamin D2) haloperidol 1 mg tablet 3 mg (3 x 1 mg) PO BID PRN 12/24/23 03/09/24 Rx hallucinations 30 days #90 tabs lamotrigine 100 mg tablet 200 mg (2 x 100 mg) PO HS #0 tabs 12/24/23 03/09/24 Rx (Lamictal) albuterol sulfate 90 mcg/actuation 2 puff inhalation .Q4-6H PRN 02/03/24 03/09/24 Rx aerosol inhaler shortness of breath or wheezing #8.5 grams Jyoti Quercetin Phytosome 1 tab PO DAILY 03/01/24 03/09/24 History acetaminophen 500 mg tablet 1,000 mg PO QID PRN Pain 03/01/24 03/09/24 History cranberry fruit concentrate 250 mg 500 mg PO DAILY 03/01/24 03/09/24 History chewable tablet (Azo Cranberry) estradiol 1 mg tablet (Estrace) 1 mg PO QAM 03/01/24 03/09/24 History folic acid 400 mcg tablet 400 mcg PO QAM 03/01/24 03/09/24 History loperamide 2 mg tablet (Imodium 2 mg PO DAILY PRN Diarrhea 03/01/24 03/09/24 History A-D) lurasidone 80 mg tablet (Latuda) 80 mg PO QPM 03/01/24 03/09/24 History magnesium oxide 400 mg (241.3 mg 400 mg PO QAM 03/01/24 03/09/24 History magnesium) tablet montelukast 10 mg tablet 10 mg PO HS 03/01/24 03/09/24 History (Singulair) nystatin 100,000 unit/gram topical 1 applic topical DAILY 03/01/24 03/09/24 History cream trazodone 150 mg tablet 150 mg PO HS 03/01/24 03/09/24 History vibegron 75 mg tablet (Gemtesa) 75 mg PO HS 03/01/24 03/09/24 History hydrocodone 5 mg-acetaminophen 325 1 tab PO Q6H PRN pain #20 tabs 03/09/24 Rx mg tablet semaglutide 1 mg/dose (4 mg/3 mL) 1 mg subcut Q7D 03/09/24 03/09/24 History subcutaneous pen injector (Ozempic) sulfamethoxazole 800 1 tab PO BID #14 tabs 03/09/24 Rx mg-trimethoprim 160 mg tablet (Bactrim DS) Patient History Medical History Intentional overdose hx - Denies SI at this time Hemorrhoids Hx: UTI (urinary tract infection) multiple PONV (postoperative nausea and vomiting) "With a really bad headache" History of COVID-19 "A month ago" no hospitalization 02/03/24 - denies issues at this time Personality disorder Schizoaffective disorder, depressive type Type 2 diabetes mellitus Tremor Nephrolithiasis Anemia IBS (irritable bowel syndrome) Hypothyroidism Hepatosplenomegaly pt unsure HTN (hypertension) GERD (gastroesophageal reflux disease) Pt unsure History of abscessed tooth 09/2023 [facility] ER Diarrhea Chronic - imodium Auditory hallucinations denies issues at this time Asthma Anxiety agoraphobia per PAT RN call Suicidal ideations Denies SI at this time Suicidal ideation Denies SI at this time Hypoxemia pt denies Influenza (2018) hx Bacterial pneumonia (01/11/11) pt denies Surgical History Hx of colonoscopy H/O wisdom tooth extraction History of thyroid surgery pt denies H/O: hysterectomy Family History Mother Breast cancer Hypertension Stroke Unknown Hypertension Father Hypertension Heart disease Cancer Grandfather Heart disease Stroke Brother Myocardial infarction Grandmother (Maternal) Colon cancer Grandmother Stroke Denies family history of Ovarian cancer Prostate cancer Social History Smoking Status: Never smoker Tobacco Type: Cigarettes Second Hand Exposure: No; Do You Dip or Chew Tobacco: No; Hx Alcohol Use: No Hx Substance Use: No Preferred Language: Upper Sorbian Communication Ability: Effective Visual Impairment: No Limitations Hearing Ability: Normal 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 Beliefs That Will Affect Care: None marital status: Single Current Living Situation: Alone current occupational status: disabled How many Children do You have: 0 Feels Safe at Home: Yes Childhood Exposure to Second-Hand Smoke: No Physical Activity Frequency: Daily Seatbelt Use: always Sunscreen Use: No Gender Identity: Female Assistive Devices: Glasses, Walker and Wheelchair Review of Systems Review of Systems: All systems reviewed & are unremarkable except as noted in HPI & below Physical Exam Constitutional: WD/WN, vitals as above + obese Eyes: Wears glasses ENMT: Ears: no hearing impairment and no external ear abnormality Mouth: no oropharynx abnormality Neck: trachea midline Respiratory: normal respiratory effort; no respiratory distress and no labored breathing Cardiovascular: Rate/Rhythm: regular rate and regular rhythm Gastrointestinal (Abdomen): Abdomen is soft without distention or rigidity. There is no rebound tenderness or guarding and minimal pain with palpation Musculoskeletal: No calf tenderness. Feet are warm and well-perfused Skin: no rashes Neurologic: moves all extremities Psychiatric: A+Ox3, euthymic affect Genitourinary: Slight CVA tenderness noted with percussion bilaterally Results & Data Vital Signs (Past 12 Hours) Vital Signs Temp Pulse Pulse Resp BP BP Pulse Ox 03/11/24 19:22 97 03/11/24 19:22 97 03/11/24 19:22 94 H 19 123/73 97 03/11/24 18:57 99 H 03/11/24 17:46 36.8 C 109 H 18 103/67 100 O2 Del Method 03/11/24 19:22 Room Air 03/11/24 19:22 Room Air 03/11/24 19:22 Room Air 03/11/24 18:57 03/11/24 17:46 Room Air PG Care Time/CCT Total # of Minutes Spent Total Time Spent with Patient: Total time spent is greater than 50% in coordination of care (as documented) at patient's floor/unit and/or counseling patient: Coding Level of Care Code 23107 IN/OBS CONSULT LVL 5,80M Diagnoses UTI (urinary tract infection) N39.0
[2024-03-11] MEDS ORDERED: POLYETHYLENE (MIRALAX) 17 GM PACK PO PRN (23:52)
[2024-03-11] MEDS ORDERED: ALBUTEROL HFA 8 GM INHALER INH PRN (23:52)
[2024-03-11] MEDS ORDERED: DEXTROSE 50% 50 ML SYRINGE IV PRN (23:52)
[2024-03-11] MEDS ORDERED: GLUCOSE 40% GEL 15 GM TUBE PO PRN (23:52)
[2024-03-11] MEDS ORDERED: GLUCAGON FOR INJ 1 MG VIAL SQ PRN (23:52)
[2024-03-11] MEDS ORDERED: ONDANSETRON INJ 2 MG/ML 2 ML VIAL IV PRN (23:52)
[2024-03-11] MEDS ORDERED: GLUCOSE 10 TAB/TUBE PO PRN (23:52)
[2024-03-11] MEDS ORDERED: CARBOHYDRATES FOR HYPOGLYCEMIA PO PRN (23:52)
[2024-03-12] MEDS: SODIUM CHLORIDE 0.9% 1,000 ML IV SCH (03:42)
[2024-03-12] MEDS: LEVOTHYROXINE SODIUM 125 MCG TABLET PO SCH (05:51)
[2024-03-12] MEDS: VENLAFAXINE HCL XR 150 MG CAPXR PO SCH (07:42)
[2024-03-12] MEDS: busPIRone 5 MG TAB PO SCH (07:43)
[2024-03-12] MEDS: estradioL 1 MG TAB PO SCH (07:44)
[2024-03-12] MEDS: LOSARTAN POTASSIUM 50 MG TAB PO SCH (07:44)
--- NOTE | 2024-03-12 07:49 | Hospitalist Progress Note ---
Date of Service March 12, 2024 Assessment & Plan (1) Complicated UTI (urinary tract infection): Plan: Complicated UTI 2/2 cystoscopy ureteral stent placement S/p cystoscopy, right utero nephroscopy, laser stone destruction, stent placement 03/09/[address] Magdaleno Subsequently with lightheadedness, weakness UA infected appearing CTA/P with appropriately positioned right ureteral stent. Stranding is present. Some residual stones up to 5 mm remain. Stent position currently appropriate. Urology following. Agree with antibiotics Recommend to continue broad-spectrum antibiotics, adjust based on speciation and sensitivities when available. Anticipated to keep her scheduled outpatient second stone procedure next week, possible discharge 03/13/2024 speciation available and patient clinically (2) S/P ureteral stent placement: Plan: As noted (3) Schizoaffective disorder, depressive type: Plan: Continue home meds (4) Type 2 diabetes mellitus: Plan: Goal BSG [id number] Hold home antiglycemic's Glucose checks AC/at bedtime, SSI while inpatient (5) Acute hyponatremia: Plan: Acute, mild with slight hypovolemia on exam S/p ~500cc NSS at maintenance. IVF discontinued due to hyponatremia, critical IV fluid shortage, and normotension without tachycardia well. Oral fluids encouraged Admission and Anticipated Discharge Date Admission Date: March 11, 2024 Shaw De La Fuente seen at the bedside. She was admitted overnight for weakness and suspected UTI following ureteral stent placed. The flank pain is improved. Was seen by urology, following for sensitivities on UCx. He does want her psychiatrist notified that she is in the hospital and sent records of her care, otherwise no acute concerns or questions denies SI/HI/AV/AH at time of Physical Exam Physical Exam: General: A&Ox3. NAD. Cooperative. HEENT: Atraumatic, normocephalic. Vision and hearing grossly and Pulm: CTAB A&P. -wheezes, -rales, -rhonchi. Symmetrical chest rise. No increased work of breathing. No respiratory distress. Cardiac: RRR, -mrg. Radial pulses intact and symmetrical. Abdominal: Nontender, nondistended, soft. BS present. Results & Data Results & Data Vital Signs (Past 12 Hours) Vital Signs Temp Pulse Pulse Resp BP BP Pulse Ox 03/12/24 07:05 88 03/12/24 03:47 36.7 C 82 18 128/83 93 03/11/24 23:53 37.0 C 93 H 17 117/66 98 03/11/24 23:00 89 16 122/78 97 03/11/24 21:00 94 H 18 133/81 97 O2 Del Method 03/12/24 07:05 03/12/24 03:47 Room Air 03/11/24 23:53 Room Air 03/11/24 23:00 Room Air 03/11/24 21:00 Room Air PG Care Time/CCT Total # of Minutes Spent Total Time Spent with Patient: Total time spent is greater than 50% in coordination of care (as documented) at patient's floor/unit and/or counseling patient: Coding Level of Care Code 75932 SUB INP/OBS CARE 2/35MIN Diagnoses Complicated UTI (urinary tract infection) N39.0 S/P ureteral stent placement Z96.0 Schizoaffective disorder, depressive type F25.1 Type 2 diabetes mellitus without complication, without long-term current use of insulin E11.9 Diabetes mellitus complication status: without complication Diabetes mellitus fci insulin use: without fci use Acute hyponatremia E87.1 (4) Type 2 diabetes mellitus Diabetes mellitus complication status: without complication Diabetes mellitus intermediate teacher insulin use: without intermediate teacher use Qualified Code(s): E11.9 - Type 2 diabetes mellitus without complications
[2024-03-12 08:07] LABS: Hematocrit (blood only) 31.7 % (37.0-47.0); Hemoglobin 10.5 g/dl (12.0-16.0); Mean Corpuscular Hgb Conc 33.1 g/dL (32.0-36.0); Mean Corpuscular Volume 81.5 fL (80.0-100.0); Platelet Count 227 K/uL (130-400); RDW Coefficient of Variation 14.3 % (11.5-14.5); RDW Standard Deviation 42.2 fL (36.4-46.3); Red Blood Count 3.89 M/uL (4.20-5.40); White Blood Count 7.12 K/ul (4.8-10.8)
[2024-03-12 08:21] LABS: Estimated Average Glucose 103 mg/dl; Hemoglobin A1C 5.2 % (4.5-5.6)
[2024-03-12 08:29] LABS: BUN Creatinine Ratio 13.6 (10-20); Calcium 8.6 mg/dl (8.6-10.3); Creatinine Clr Calc Pharmacy 88.3 ml/min; Potassium 3.7 mmol/L (3.5-5.1)
[2024-03-12] MEDS: INSULIN ASPART PER UNIT CHARGE SC SCH (08:36)
[2024-03-12] MEDS: clonazePAM 0.5 MG TAB PO SCH (08:46)
--- NOTE | 2024-03-12 08:47 | Urology Progress Note ---
Date of Service March 12, 2024 Assessment & Plan (1) Complicated UTI (urinary tract infection): (2) S/P ureteral stent placement: Plan: 53 yo/F admitted for weakness and suspected UTI after urologic procedure, acute hyponatremia. Patient afebrile, hemodynamically stable Labs reviewedcreatinine 0.81, no leukocytosis, Na 139 today Subjectively feeling better today Urine culture is pending, follow culture Continue broad-spectrum antibiotics and narrow per sensitivity data when available Stent is in good position, no acute intervention warranted Continue antibiotics, supportive care and medical management per hospital medicine Can likely keep her second stone surgery as scheduled next week presuming appropriate recovery will sign off, recall as needed Admission and Anticipated Discharge Date Admission Date: March 11, 2024 Subjective Patient seen and examined at bedside this morning. She is resting in bed. Reports she feels better since arrival. Occasional left flank discomfort. Voiding spontaneously. No nausea, vomiting, fever or chills. Review of Systems Constitutional: as per Subjective / HPI Genitourinary: as per Subjective / HPI Physical Exam Constitutional: no acute distress Respiratory: normal respiratory effort; no respiratory distress and no labored breathing Gastrointestinal (Abdomen): Inspection/Auscultation: abdomen normal to inspection Musculoskeletal: Head/Neck/Chest: normocephalic Neurologic: moves all extremities and awake Psychiatric: Orientation: alert and oriented x 3 Results & Data Vital Signs (Past 12 Hours) Vital Signs Temp Pulse Pulse Resp BP BP Pulse Ox 03/12/24 07:57 36.4 C L 85 18 123/78 93 03/12/24 07:05 88 03/12/24 03:47 36.7 C 82 18 128/83 93 03/11/24 23:53 37.0 C 93 H 17 117/66 98 03/11/24 23:00 89 16 122/78 97 03/11/24 21:00 94 H 18 133/81 97 O2 Del Method 03/12/24 07:57 Room Air 03/12/24 07:05 03/12/24 03:47 Room Air 03/11/24 23:53 Room Air 03/11/24 23:00 Room Air 03/11/24 21:00 Room Air PG Care Time/CCT Total # of Minutes Spent Total Time Spent with Patient: Total time spent is greater than 50% in coordination of care (as documented) at patient's floor/unit and/or counseling patient: Coding Level of Care Code 54685 SUB INP/OBS CARE Diagnoses Complicated UTI (urinary tract infection) N39.0 S/P ureteral stent placement Z96.0
[2024-03-12] MEDS: cloZAPine 100 MG TAB PO SCH ×2 (12:59→20:15)
--- NOTE | 2024-03-12 14:21 | Electrocardiogram Report ---
Test Reason : Blood Pressure : */* mmHG Vent. Rate : 107 BPM Atrial Rate : 107 BPM P-R Int : 136 ms QRS Dur : 86 ms QT Int : 326 ms P-R-T Axes : -12 -3 -24 degrees QTcB Int : 435 ms Sinus tachycardia with Premature atrial complexes Inferior infarct , age undetermined Poor R wave progression, consider anterior MA vs. lead placement vs. LVH Abnormal ECG When compared with ECG of 24-Feb-2024 09:32, Premature atrial complexes are now Present Inferior infarct is now Present ST elevation now present in Inferior leads Nonspecific T wave abnormality, worse in Inferior leads Nonspecific T wave abnormality now evident in Lateral leads Confirmed by Niles Arnett ([id number]) on 03/12/2024 2:20:45 PM Referred By: REFERRED SELF Confirmed By: Niles Arnett
[2024-03-12] MEDS: cefTRIAXone SODIUM 2,000 MG/50 ML BAG IV SCH (20:14)
[2024-03-12] MEDS: traZODone HCL 50 MG TAB PO SCH (20:15)
[2024-03-12] MEDS: lamoTRIgine 100 MG TAB PO SCH (20:15)
[2024-03-12] MEDS: MONTELUKAST SODIUM 10 MG TABLET PO SCH (20:15)
[2024-03-12] MEDS: VIBEGRON 75 MG TAB PO SCH (20:16)
[2024-03-12] MEDS: MELATONIN 3 MG TAB PO PRN (20:16)
[2024-03-12] MEDS: LURASIDONE HCL 20 MG TAB PO SCH (20:16)
--- NOTE | 2024-03-12 23:06 | Billing Data ---
Date of Service March 12, 2024 Coding Level of Care Code 58028 INT INP/OBS CARE
[2024-03-13 07:40] LABS: Hematocrit (blood only) 30.7 % (37.0-47.0); Hemoglobin 10.1 g/dl (12.0-16.0); Immature Granulocytes # (auto) 0.02 K/uL (0.01-0.20); Immature Granulocytes % (auto) 0.3 %; Lymphocytes # (auto) 1.93 K/uL (1.20-3.40); Lymphocytes % (auto) 27.8 %; Mean Corpuscular Hemoglobin 27.4 pg (25.0-34.0); Mean Corpuscular Hgb Conc 32.9 g/dL (32.0-36.0); Mean Corpuscular Volume 83.4 fL (80.0-100.0); Mean Platelet Volume 9.1 fL (9.4-12.4); Monocytes # (auto) 0.59 K/uL (0.11-0.59); Monocytes % (auto) 8.5 %; Neutrophils # (auto) 4.39 K/uL (1.40-6.50); Neutrophils % (auto) 63.4 %; Platelet Count 243 K/uL (130-400); RDW Coefficient of Variation 14.2 % (11.5-14.5); RDW Standard Deviation 43.6 fL (36.4-46.3); Red Blood Count 3.68 M/uL (4.20-5.40); White Blood Count 6.93 K/ul (4.8-10.8)
[2024-03-13 07:56] LABS: BUN Creatinine Ratio 18.9 (10-20); Calcium 8.6 mg/dl (8.6-10.3); Creatinine Clr Calc Pharmacy 96.9 ml/min; Potassium 4.4 mmol/L (3.5-5.1)
[2024-03-13] MEDS: ACETAMINOPHEN 500 MG TAB PO PRN (09:02)
--- NOTE | 2024-03-13 12:03 | Hospitalist Progress Note ---
Date of Service March 13, 2024 Assessment & Plan (1) Complicated UTI (urinary tract infection): Plan: Complicated UTI 2/2 cystoscopy ureteral stent placement S/p cystoscopy, right utero nephroscopy, laser stone destruction, stent placement 03/09/[address] Magdaleno Subsequently with lightheadedness, weakness UA infected appearing CTA/P with appropriately positioned right ureteral stent. Stranding is present. Some residual stones up to 5 mm remain. Stent position currently appropriate. Urology following. Agree with antibiotics Continue on broad-spectrum antibiotics. Speciation is not yet available, pending speciation and cultures for transition to orals and then progression to discharge. Clinically well, nontoxic, no leukocytosis today (2) S/P ureteral stent placement: Plan: As noted (3) Schizoaffective disorder, depressive type: Plan: Continue home meds At patient's request [facility] was contacted, and voice was left with for Dr. Rodriguez with updates regarding her admission, plan of care, and and current progression (4) Type 2 diabetes mellitus: Plan: Goal BSG [id number] Hold home antiglycemic's Glucose checks AC/at bedtime, SSI while inpatient (5) Acute hyponatremia: Plan: Acute, mild with slight hypovolemia on exam S/p ~500cc NSS at maintenance. On admission. This was subsequently discontinued Sodium normalized 03/13 Admission and Anticipated Discharge Date Admission Date: March 11, 2024 Shaw Martinez is seen at the bedside this morning. She reports that she feels okay but still continues to have mostly right-sided flank pain and some discomfort with voiding. No fevers chills or sweats. Would like to talk to urology for possible today about the plan for her second stone surgery this week, but no other questions or concerns. Remains with some flank pain to on movement and wi th percussion Physical Exam Physical Exam: General: A&Ox3. NAD. Cooperative. HEENT: Atraumatic, normocephalic. Vision and hearing grossly and Pulm: CTAB A&P. -wheezes, -rales, -rhonchi. Symmetrical chest rise. No increased work of breathing. No respiratory distress. Cardiac: RRR, -mrg. Radial pulses intact and symmetrical. Abdominal: Nontender, nondistended, soft. BS present. Remains with right CVA tenderness to percussion no mild diffuse abdominal discomfort to deep palpation but without rebound/guarding/nausea Results & Data Results & Data Vital Signs (Past 12 Hours) Vital Signs Temp Pulse Pulse Resp BP Pulse Ox O2 Del Method 03/13/24 07:49 36.5 C 88 18 137/85 93 Room Air 03/13/24 07:18 86 03/13/24 04:33 36.5 C 97 H 20 147/82 H 93 Room Air 03/13/24 00:44 36.5 C 83 20 142/80 H 94 Room Air PG Care Time/CCT Total # of Minutes Spent Total Time Spent with Patient: Total time spent is greater than 50% in coordination of care (as documented) at patient's floor/unit and/or counseling patient: Coding Level of Care Code 54086 SUB INP/OBS CARE 235MIN Diagnoses Complicated UTI (urinary tract infection) N39.0 S/P ureteral stent placement Z96.0 Schizoaffective disorder, depressive type F25.1 Type 2 diabetes mellitus without complication, without long-term current use of insulin E11.9 Diabetes mellitus complication status: without complication Diabetes mellitus intermediate school teacher insulin use: without skilled nursing use Acute hyponatremia E87.1 (4) Type 2 diabetes mellitus Diabetes mellitus complication status: without complication Diabetes mellitus intermediate school teacher insulin use: without skilled nursing use Qualified Code(s): E11.9 - Type 2 diabetes mellitus without complications
[2024-03-14 07:01] LABS: Hematocrit (blood only) 31.4 % (37.0-47.0); Hemoglobin 10.2 g/dl (12.0-16.0); Immature Granulocytes # (auto) 0.01 K/uL (0.01-0.20); Immature Granulocytes % (auto) 0.1 %; Lymphocytes # (auto) 2.13 K/uL (1.20-3.40); Lymphocytes % (auto) 30.7 %; Mean Corpuscular Hemoglobin 27.1 pg (25.0-34.0); Mean Corpuscular Hgb Conc 32.5 g/dL (32.0-36.0); Mean Corpuscular Volume 83.5 fL (80.0-100.0); Monocytes # (auto) 0.58 K/uL (0.11-0.59); Monocytes % (auto) 8.4 %; Neutrophils # (auto) 4.21 K/uL (1.40-6.50); Neutrophils % (auto) 60.8 %; Platelet Count 240 K/uL (130-400); RDW Coefficient of Variation 14.1 % (11.5-14.5); Red Blood Count 3.76 M/uL (4.20-5.40); White Blood Count 6.93 K/ul (4.8-10.8)
--- NOTE | 2024-03-14 07:41 | Discharge Summary ---
Date of Service March 14, 2024 Admission HPI Per Admitting Provider Leisa is a 53F nephrolithiasis, urianry incontinence, HSM, fatty liver disease, personality/schizoaffective disorder, iron deficiency anemia, GERD, IBS, anxiety, hypothyroidism, HTN, HLD, asthma who presented for lightheadedness following cystoscopy with laser lithotripsy and insertion of a right ureteral stent 03/09/24. Patient was recovering at home w/o concern until she developed significant lightheadedness without syncope over the last 12 hours which prompted her to present to the hospital tonight. No chest pain or dyspnea noted. Patient states that she is unable to function at home and needs to stay in the hospital due to profound weakness. She denies fevers, chills, nausea, or emesis. She is experiencing abdominal pain and dysuria but this is not increased from post- procedure. She mentioned concern about blood in her urine w/ some clots, but this has not progressed since post-op. Patient continues to eat, drink, and move her bowels without incident - she notes a good appetite. Patient stated that she is to have another urologic procedure in the coming weeks and does not want to miss that. Patient notes that her pain is well controlled at present. Medication Changes: None ED Course: Ceftriaxone 2g @ 0 Discharge Data Consultations 03/11/24 21:35 ED Decision to Admit Stat 03/11/24 23:52 Consult Urology Routine Hospital Course (1) Complicated UTI (urinary tract infection): To do as outpatient 1. Complete a 5-day course of antibiotics with cefdinir twice daily for lactobacillus UTI. Suspect pain was predominantly due to stent discomfort 2. Routine follow-up to urology, dissipate stent removal in the office second stone surgery delayed due to critical shortage of irrigating fluids 3. Routine follow-up to PCP Complicated UTI 2/2 cystoscopy ureteral stent placement S/p cystoscopy, right utero nephroscopy, laser stone destruction, stent placement 03/09/[address] Magdaleno Subsequently with lightheadedness, weakness UA infected appearing CTA/P with appropriately positioned right ureteral stent. Stranding is present. Some residual stones up to 5 mm remain. Stent position currently appropriate. Urology following. Agree with antibiotics UCx positive for lactobacillus. Patient transitioned to cefdinir. She does have a amoxicillin allergy but has tolerated Rocephin well. Recommend total 5- day course to be completed 03/17/2024. Fluoroquinolones not recommended due to multiple QT prolonging medications. Suspect her pain was predominantly due to her stent however given large colony counts will complete UTI treatment (2) S/P ureteral stent placement: As noted (3) Schizoaffective disorder, depressive type: Continue home meds At patient's request [facility], and voice was left with for Dr. Rodriguez with updates regarding her admission, plan of care, and and current progression (4) Type 2 diabetes mellitus: Goal BSG [id number] Hold home antiglycemic's Glucose checks AC/at bedtime, SSI while inpatient (5) Acute hyponatremia: Acute, mild with slight hypovolemia on exam S/p ~500cc NSS at maintenance. On admission. This was subsequently discontinued Sodium normalized 03/13 Plan Time spend day of discharge 35 minutes including direct patient care, documentation, review of labs and images, and coordination of care. Coding Level of Care Code 24290 INP/OBS DISCH >30 MIN Diagnoses Complicated UTI (urinary tract infection) N39.0 S/P ureteral stent placement Z96.0 Schizoaffective disorder, depressive type F25.1 Type 2 diabetes mellitus without complication, without long-term current use of insulin E11.9 Diabetes mellitus complication status: without complication Diabetes mellitus terminal carman insulin use: without terminal carman use Acute hyponatremia E87.1
[2024-03-14 07:48] LABS: Calcium 8.8 mg/dl (8.6-10.3); Potassium 4.2 mmol/L (3.5-5.1)
[2024-03-14 07:52] VITALS: PULSE 83; RESP 18; TEMP 98.6; O2SAT 95
[2024-03-14 07:54] LABS: BUN Creatinine Ratio 23.1 (10-20); Creatinine Clr Calc Pharmacy 92.8 ml/min
--- NOTE | 2024-03-14 09:49 | Urology Progress Note ---
Date of Service March 14, 2024 Assessment & Plan (1) S/P ureteral stent placement: Plan Status post cystoscopy right ureteroscopy and laser lithotripsy on the rightnot tolerating the stent well at all, required hospitalization after surgery because of stent pain Had some hyponatremia upon arrival but this has corrected Plan for discharge home today Will remove her stent as an outpatient this week Discussed the case with the primary team as well as patient and family Admission and Anticipated Discharge Date Admission Date: March 11, 2024 Subjective Status post ureteroscopy and laser lithotripsy last week She returned to the hospital with some hyponatremia and significant discomfort Her urine culture has shown lactobacillus which I suspect is a contaminant and not a true pathogen She has had appropriate labs and her sodium has corrected She continues to have discomfort on that side which I completely attributed to stent related pain She was originally scheduled for another surgery on the contralateral side this week but I think we will likely delay this and simply remove her stent and allow her some time to recover Results & Data Vital Signs (Past 12 Hours) Vital Signs Temp Pulse Pulse Resp BP Pulse Ox O2 Del Method 03/14/24 08:00 Room Air 03/14/24 07:51 37 C 83 18 144/83 H 95 Room Air 03/14/24 07:00 85 03/14/24 03:48 36.8 C 90 20 138/83 92 Room Air 03/13/24 23:41 36.5 C 83 20 127/80 94 Room Air PG Care Time/CCT Total # of Minutes Spent Total Time Spent with Patient: Total time spent is greater than 50% in coordination of care (as documented) at patient's floor/unit and/or counseling patient: Coding Level of Care Code 44419 SUB INP/OBS CARE 2/35MIN Diagnoses S/P ureteral stent placement Z96.0
[2024-03-14 09:54] VITALS: BP 117/74
== END 2024-03-14 10:34 | disposition home or self-care (01) | DRG 660 ==
LOC: ED 17:32 → SUATTDRO 22:37 → 2N 22:37

== ENCOUNTER 2024-06-02 15:19 | Observation (INO) ==
--- NOTE | 2024-06-02 15:51 | XRay Report ---
XR chest 1V not portable CLINICAL HISTORY: Chest pain, nonspecific COMPARISON STUDY: Chest radiograph March 11, 2024. FINDINGS: Lung volumes are normal. Lungs are clear. There is no pneumothorax or pleural effusion. Car diac size is normal. Mediastinal contours are normal. There is no evidence for pulmonary edema. IMPRESSION: No acute cardiopulmonary findings. ACT 112: Negative or not required by law. Electronically signed by: Mathew Mcguire M.D. 06/02/2024 3:50 PM
[2024-06-02 16:16] LABS: Hematocrit (blood only) 31.6 % (37.0-47.0); Immature Granulocytes # (auto) 0.01 K/uL (0.01-0.20); Immature Granulocytes % (auto) 0.2 %; Lymphocytes # (auto) 2.15 K/uL (1.20-3.40); Lymphocytes % (auto) 38.5 %; Mean Corpuscular Hemoglobin 26.8 pg (25.0-34.0); Mean Corpuscular Hgb Conc 31.6 g/dL (32.0-36.0); Mean Corpuscular Volume 84.7 fL (80.0-100.0); Mean Platelet Volume 8.8 fL (9.4-12.4); Monocytes # (auto) 0.46 K/uL (0.11-0.59); Monocytes % (auto) 8.2 %; Neutrophils # (auto) 2.97 K/uL (1.40-6.50); Neutrophils % (auto) 53.1 %; Platelet Count 215 K/uL (130-400); RDW Standard Deviation 43.5 fL (36.4-46.3); Red Blood Count 3.73 M/uL (4.20-5.40); White Blood Count 5.59 K/ul (4.8-10.8)
[2024-06-02 16:34] LABS: Albumin Globulin Ratio 1.4 (0.9-2); BUN Creatinine Ratio 22.5 (10-20); Bilirubin,Total 0.2 mg/dl (0.2-1.0); Calcium 8.6 mg/dl (8.6-10.3); Creatinine Clr Calc Pharmacy 92.5 ml/min; Globulin 2.8 gm/dl (2.5-4.0); Potassium 3.8 mmol/L (3.5-5.1); Total Protein 6.8 gm/dl (6.0-8.3)
[2024-06-02 16:40] LABS: Troponin I High Sensitivity 5.6 pg/ml (0-14)
[2024-06-02] MEDS: LEVALBUTEROL HCL 0.63 MG/3 ML NEB NEB STA (16:46)
--- NOTE | 2024-06-02 16:46 | Emergency Department Note ---
Impression & Plan Shortness of breath ED Provider Note NAME: HOWIE HSU AGE: 53 SEX: Female INFORMANT: Patient ED PROVIDER(S): Donn Mcgowan MD CHIEF COMPLAINT: Shortness of breath PLAN: Disposition: Admitted Outpatient prescription management: none Referral: None MEDICAL DECISION MAKING: Patient present because of shortness of breath. Workup was initiated. Her CBC and chemistry panels were unremarkable. Patient's D-dimer, troponin, and BMP were unremarkable. She was wheezy and was given a Xopenex neb. She was still wheezing and was requiring supplemental oxygen at that point. DuoNeb and Solu- Medrol ordered. Did discuss this with the patient and his she has a history of prednisone allergy but did receive Solu-Medrol several years ago and hospital mission without problems. Patient had a negative bio fire. ECG and monitoring did not reveal any significant problems. Further management in the hospital was felt to be appropriate given the patient's oxygen requirement. Suspect reactive airways as she has a history of this. [facility]. Case was discussed and diagnostics were reviewed. Patient was evaluated in ER admitted for further management. 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 Vital Signs: reviewed and remarkable for no significant abnormalities Additional History obtained from: none Chronic Medical/Social Conditions affecting care: Reactive airway disease, IBS, hypertension, diabetes Prior/ Outside/ External records reviewed: Urgent care referral and visit note reviewed from today. Patient had a negative flu and COVID. Differential Diagnosis: Reactive airway disease, pneumonia, pneumothorax, COPD, CHF, infections, cardiac ischemia, pulmonary embolism, musculoskeletal, gastrointestinal, as well as other pathologies. Diagnostics, independently interpreted by me: ECG: Twelve-lead ECG with normal sinus rhythm at 91 bpm. Septal Q wave. Low- voltage QRS. No ST elevation. Cardiac Monitoring: Cardiac monitoring ordered by me: The patient was placed on continuous cardiac monitoring and observed. It revealed a normal sinus rhythm at 87 beats per minute without ectopy or evidence of dysrhythmia. Medical decision rules: none Imaging studies: Chest x-ray. Findings: A chest x-ray was performed and revealed no pneumothorax, effusion, infiltrate, pulmonary edema, free air under the diaphragm, or wide mediastinum. Impression: No acute disease. HPI: 53 year old Female arrives for evaluation of shortness of breath. This started about 6 days ago and is improving per the patient. The patient also notes the following associated symptoms, cough, mild wheeze. Patient states he has a history of asthmatic bronchitis and this feels the same. She did not use her inhaler however as she says it does make her feel jittery. The patient has has been prescribed no medication for relieving factors. Current pain is rated as 5/10. Patient has rib pain with coughing. She went to urgent care and they were concerned that she may have a developing pneumonia. COVID and flu testing were performed and were negative. The patient was sent to the ER for further evaluation. Patient states that her caregiver did have a cold prior to her illness. Pt denies LOC, headache, fevers, chills, diaphoresis, visual changes, neck pain, nausea, vomiting, abdominal pain, back pain, melena, hematochezia, urinary symptoms, numbness, weakness, lymphadenopathy, rash, or other complaints. PAST MEDICAL HISTORY: See Below, asthmatic bronchitis, kidney stone, schizoaffective disorder, diabetes PAST SURGICAL HISTORY: See Below, SOCIAL HISTORY: See Below, non-smoker HOME MEDICATIONS: See Below ALLERGIES: See Below VITALS: See Below PHYSICAL EXAMINATION: GENERAL: Awake, alert, nontoxic-appearing, in no distress HENT: Normocephalic, atraumatic. Oropharynx unremarkable. EYES: Normal conjunctiva. Sclera non-icteric. NECK: Inspection normal. Non-tender. Supple. No nuchal rigidity. FROM. No masses. RESPIRATORY: Few scattered wheezes. No rales. Normal respiratory effort. CARDIAC: Normal rate. Normal rhythm. No murmurs. No rubs. Extremities warm and well perfused. Pulses equal. No JVD. GI: Soft, non-distended. No tenderness to palpation. No rebound or guarding. No masses. RECTAL: Deferred. MUSCULOSKELETAL: Atraumatic. Chest examination reveals no tenderness. The back is symmetrical on inspection without obvious abnormality. There is no CVA tenderness to palpation. No joint edema. LOWER EXTREMITIES: Calves are equal size bilaterally and non-tender. Trace edema. No discoloration. NEURO: Normal sensorium. No sensory or motor deficits noted. SKIN: No rash or jaundice noted. PROCEDURES: none CRITICAL CARE: none OBSERVATION NOTE: none Past Med/Surg History Problem List (Updated 06/02/24 @ 19:09 by Hetal Baumann MD) Asthma exacerbation Shortness of breath (Acute) Complicated UTI (urinary tract infection) S/P ureteral stent placement Lightheadedness (Acute) Acute hyponatremia (Acute) Auditory hallucinations (Acute) 12/15/23 Facial cellulitis 09/29/23 Bladder pain 01/01/23 Nephrolithiasis Right flank pain 12/05/22 Nocturnal enuresis Urinary incontinence Symptoms of urinary tract infection 11/22/22 Acute hyponatremia 12/25/21 Rash and nonspecific skin eruption 03/07/21 Diarrhea 03/16/20 Obesity Hypomagnesemia 01/01/20 Hepatosplenomegaly Fatty liver Personality disorder Vitamin D deficiency (Acute) Vitamin B12 deficiency (Acute) Tremor (Acute) Seborrheic keratosis (Acute) Iron deficiency anemia (Acute) Hemorrhoids (Acute) Gastro-esophageal reflux (Acute) Eczema (Acute) Chronic sinusitis (Acute) 12/14/18 Anxiety IBS (irritable bowel syndrome) Type 2 diabetes mellitus (Chronic) Hypothyroidism (Chronic) Hypertension (Chronic) Dyslipidemia (Chronic) Asthma (Chronic) Schizoaffective disorder, depressive type (Chronic 01/11/11) Medical History Intentional overdose hx - Denies SI at this time Hemorrhoids Hx: UTI (urinary tract infection) multiple PONV (postoperative nausea and vomiting) "With a really bad headache" History of COVID-19 "A month ago" no hospitalization 02/03/24 - denies issues at this time Personality disorder Schizoaffective disorder, depressive type Type 2 diabetes mellitus Tremor Nephrolithiasis Anemia IBS (irritable bowel syndrome) Hypothyroidism Hepatosplenomegaly pt unsure HTN (hypertension) GERD (gastroesophageal reflux disease) Pt unsure History of abscessed tooth 09/2023 [facility] ER Diarrhea Chronic - imodium Auditory hallucinations denies issues at this time Asthma Anxiety agoraphobia per PAT RN call Suicidal ideations Denies SI at this time Suicidal ideation Denies SI at this time Hypoxemia pt denies Influenza (2019) hx Bacterial pneumonia (01/11/11) pt denies Surgical History Hx of colonoscopy H/O wisdom tooth extraction History of thyroid surgery pt denies H/O: hysterectomy Family History Mother Breast cancer Hypertension Stroke Unknown Hypertension Father Hypertension Heart disease Cancer Grandfather Heart disease Stroke Brother Myocardial infarction Grandmother (Maternal) Colon cancer Grandmother Stroke Denies family history of Ovarian cancer Prostate cancer Social History Smoking Status: Never smoker Tobacco Type: Cigarettes Second Hand Exposure: No; Do You Dip or Chew Tobacco: No; Hx Alcohol Use: No Hx Substance Use: No Preferred Language: Croatian Communication Ability: Effective Visual Impairment: No Limitations Hearing Ability: Normal Firer Electric Locomotive Required: No Beliefs That Will Affect Care: None marital status: Single Current Living Situation: Alone current occupational status: disabled How many Children do You have: 0 Feels Safe at Home: Yes Childhood Exposure to Second-Hand Smoke: No Physical Activity Frequency: Daily Seatbelt Use: always Sunscreen Use: No Gender Identity: Female Assistive Devices: Walker Allergies Allergies Allergy/AdvReac Type Severity Reaction Status Date / Time doxycycline AdvReac Severe Hearing Verified 04/14/24 11:03 Voices/Depression prednisone AdvReac Severe hallucinati Verified 04/14/24 11:03 ons aspirin AdvReac Intermediate Vomiting Verified 04/14/24 11:03 chlorpromazine AdvReac Intermediate Lightheaded/Shuffling Verified 04/14/24 11:03 Gait Penicillins AdvReac Intermediate Rash/Nausea Verified 04/14/24 11:03 /Vomiting cefdinir AdvReac Mild "it did Verified 04/14/24 11:03 not work" see comment below... levofloxacin AdvReac Unknown Unknown Verified 04/14/24 11:03 NSAIDS (Non-Steroidal AdvReac Unknown Unknown Verified 04/14/24 11:03 Anti-Inflamma quinine AdvReac Unknown Unknown Verified 04/14/24 11:03 theophylline [From Matias-Dur] AdvReac Unknown Unknown Verified 04/14/24 11:03 Home Meds Home Medications Medication Instructions Recorded Confirmed buspirone 10 mg tablet 20 mg PO TID 01/22/19 04/14/24 clonazepam 0.5 mg tablet (Klonopin) 0.5 mg PO TID anxiety 11/14/21 04/14/24 clozapine 50 mg tablet 100 mg PO QDL 12/25/21 04/14/24 venlafaxine 150 mg 300 mg PO QAM 12/25/21 04/14/24 capsule,extended release 24 hr (Effexor XR) clozapine 100 mg tablet (Clozaril) 400 mg PO HS 11/22/22 04/14/24 cyanocobalamin (vitamin B-12) 2,000 mcg PO QAM 01/15/23 04/14/24 1,000 mcg capsule Jyoti Quercetin Phytosome 1 tab PO DAILY 03/01/24 04/14/24 acetaminophen 500 mg tablet 1,000 mg PO QID PRN Pain 03/01/24 04/14/24 cranberry fruit concentrate 250 mg 500 mg PO DAILY 03/01/24 04/14/24 chewable tablet (Azo Cranberry) estradiol 1 mg tablet (Estrace) 1 mg PO QAM 03/01/24 04/14/24 folic acid 400 mcg tablet 400 mcg PO QAM 03/01/24 04/14/24 loperamide 2 mg tablet (Imodium 2 mg PO DAILY PRN Diarrhea 03/01/24 04/14/24 A-D) lurasidone 80 mg tablet (Latuda) 80 mg PO QPM 03/01/24 04/14/24 magnesium oxide 400 mg (241.3 mg 400 mg PO QAM 03/01/24 04/14/24 magnesium) tablet montelukast 10 mg tablet 10 mg PO HS 03/01/24 04/14/24 (Singulair) trazodone 150 mg tablet 150 mg PO HS 03/01/24 04/14/24 vibegron 75 mg tablet (Gemtesa) 75 mg PO HS 03/01/24 04/14/24 semaglutide 1 mg/dose (4 mg/3 mL) 1 mg subcut Q7D 03/09/24 04/14/24 subcutaneous pen injector (Ozempic) Previous Rx's Medication Instructions Recorded lancing device with lancets kit #1 ea 11/20/22 ([employer] Plus Lancing Device kit) cholecalciferol (vitamin D3) 25 25 mcg PO QAM #90 caps 05/14/23 mcg (1,000 unit) capsule (Vitamin D3) ferrous sulfate 325 mg (65 mg 325 mg PO QAM #90 tabs 05/14/23 iron) tablet,delayed release levothyroxine 125 mcg tablet 125 mcg PO QAM #90 tabs 05/14/23 (Synthroid) losartan 50 mg tablet (Cozaar) 50 mg PO QAM #90 tabs 05/14/23 blood sugar diagnostic (OneTouch #100 ea 07/14/23 Ultra Test strips) lancets 30 gauge (OneTouch Delica #100 ea 07/14/23 Plus Lancet) metformin 500 mg tablet 1,000 mg (2 x 500 mg) PO BID #360 07/14/23 tabs ergocalciferol (vitamin D2) 1,250 50,000 unit PO MONTHLY #12 caps 07/28/23 mcg (50,000 unit) capsule (Vitamin D2) haloperidol 1 mg tablet 3 mg (3 x 1 mg) PO BID PRN 12/24/23 hallucinations 30 days #90 tabs lamotrigine 100 mg tablet 200 mg (2 x 100 mg) PO HS #0 tabs 12/24/23 (Lamictal) albuterol sulfate 90 mcg/actuation 2 puff inhalation .Q4-6H PRN 02/03/24 aerosol inhaler shortness of breath or wheezing #8.5 grams cefdinir 300 mg capsule 300 mg PO BID #7 caps 03/14/24 nystatin 100,000 unit/gram topical 1 applic topical BID #15 grams 03/25/24 cream mirabegron 50 mg tablet,extended 50 mg PO DAILY #30 tabs 04/21/24 release 24 hr (Myrbetriq) atorvastatin 40 mg tablet 40 mg PO HS 90 days #90 tabs 05/14/24 Results & Data (ED) Vital Signs Vital Signs - 24 hr 06/02/24 15:31 06/02/24 16:30 06/02/24 16:30 Temperature 36.3 C L Temperature Source Temporal Artery Scan Pulse Rate 94 H Pulse Rate [Apical] 86 Pulse Rate from SpO2 Sensor Pulse Rhythm Regular Pulse Rhythm [Apical] Regular Pulse Strength Normal Pulse Strength [Apical] Normal Respiratory Rate 20 18 Respiratory Effort / Characteristics Non-Labored Spontaneous Non-Labored Respiratory Depth Normal Normal Respiratory Pattern Regular Blood Pressure 108/75 Blood Pressure [Right Arm] 137/78 Blood Pressure Mean 86 Blood Pressure Mean [Right Arm] 97 Blood Pressure Position Sitting Blood Pressure Position [Right Arm] Pulse Oximetry 94 94 94 Oxygen Delivery Method Room Air Room Air Room Air Oxygen Flow Rate Sepsis Recent Fever Within 48 Hours No Sepsis New/Unexplained Change in Mental Status No Sepsis Action Taken by Nursing No Action Required 06/02/24 16:30 06/02/24 17:09 06/02/24 17:30 Temperature Temperature Source Pulse Rate 83 Pulse Rate [Apical] Pulse Rate from SpO2 Sensor 84 Pulse Rhythm Pulse Rhythm [Apical] Pulse Strength Pulse Strength [Apical] Respiratory Rate 19 Respiratory Effort / Characteristics Respiratory Depth Respiratory Pattern Blood Pressure 120/78 147/86 H Blood Pressure [Right Arm] Blood Pressure Mean 92 120 Blood Pressure Mean [Right Arm] Blood Pressure Position Blood Pressure Position [Right Arm] Pulse Oximetry 96 Oxygen Delivery Method Room Air Oxygen Flow Rate Sepsis Recent Fever Within 48 Hours Sepsis New/Unexplained Change in Mental Status Sepsis Action Taken by Nursing 06/02/24 17:50 06/02/24 17:51 06/02/24 18:00 Temperature Temperature Source Pulse Rate 84 Pulse Rate [Apical] Pulse Rate from SpO2 Sensor 84 Pulse Rhythm Pulse Rhythm [Apical] Pulse Strength Pulse Strength [Apical] Respiratory Rate 19 Respiratory Effort / Characteristics Respiratory Depth Respiratory Pattern Blood Pressure 151/88 H Blood Pressure [Right Arm] Blood Pressure Mean 109 Blood Pressure Mean [Right Arm] Blood Pressure Position Blood Pressure Position [Right Arm] Pulse Oximetry 86 L 93 95 Oxygen Delivery Method Room Air Nasal Cannula Nasal Cannula Oxygen Flow Rate 2 2 Sepsis Recent Fever Within 48 Hours Sepsis New/Unexplained Change in Mental Status Sepsis Action Taken by Nursing 06/02/24 18:36 06/02/24 20:37 Temperature Temperature Source Pulse Rate 82 Pulse Rate [Apical] 88 Pulse Rate from SpO2 Sensor 82 Pulse Rhythm Pulse Rhythm [Apical] Pulse Strength Pulse Strength [Apical] Respiratory Rate 13 19 Respiratory Effort / Characteristics Respiratory Depth Respiratory Pattern Blood Pressure 120/86 Blood Pressure [Right Arm] 160/91 H Blood Pressure Mean 97 Blood Pressure Mean [Right Arm] 114 Blood Pressure Position Blood Pressure Position [Right Arm] Sitting Pulse Oximetry 95 95 Oxygen Delivery Method Nasal Cannula Oxygen Flow Rate 2 Sepsis Recent Fever Within 48 Hours Sepsis New/Unexplained Change in Mental Status Sepsis Action Taken by Nursing Laboratory Data 06/02/24 15:34 06/02/24 15:34 Lab Results 06/02/24 06/02/24 06/02/24 Range/Units 15:34 15:50 16:00 WBC 5.59 (4.8-10.8) K/ul RBC 3.73 L (4.20-5.40) M/uL Hgb 10.0 L (12.0-16.0) g/dl Hct 31.6 L (37.0-47.0) % MCV 84.7 (80.0-100.0) fL MCH 26.8 (25.0-34.0) pg MCHC 31.6 L (32.0-36.0) g/dL RDW Std Deviation 43.5 (36.4-46.3) fL RDW Coeff of Bret 14.0 (11.5-14.5) % Plt Count 215 (130-400) K/uL MPV 8.8 L (9.4-12.4) fL Immature Gran % (Auto) 0.2 % Neut % (Auto) 53.1 % Lymph % (Auto) 38.5 % Concho % (Auto) 8.2 % Eos % (Auto) 0.0 % Baso % (Auto) 0.0 % Neut # (Auto) 2.97 (1.40-6.50) K/uL Lymph # (Auto) 2.15 (1.20-3.40) K/uL [place] # (Auto) 0.46 (0.11-0.59) K/uL Eos # (Auto) 0.00 (0.00-0.50) K/uL Baso # (Auto) 0.00 (0.00-0.20) K/uL Immature Gran # (Auto) 0.01 (0.01-0.20) K/uL PT 10.3 (9.0-12.0) Seconds INR 0.9 (0.9-1.1) APTT 32 H (21-31) Seconds PTT Ratio 1.2 D-Dimer 240 (0-500) ug/L FEU Sodium 141 (136-145) mmol/L Potassium 3.8 (3.5-5.1) mmol/L Chloride 105 (98-107) mmol/L Carbon Dioxide 26 (21-32) mmol/L Anion Gap 10 (3-11) BUN 18 (6-23) mg/dl Creatinine 0.80 (0.6-1.2) mg/dl Est Cr Clr Drug Dosing 92.5 ml/min eGFR 86.96 BUN/Creatinine Ratio 22.5 H (10-20) Glucose 88 (70-99(Fasting)) mg/dl Calcium 8.6 (8.6-10.3) mg/dl Total Bilirubin 0.2 (0.2-1.0) mg/dl AST 13 (13-39) U/L ALT 17 (7-52) U/L Alkaline Phosphatase 77 (34-104) U/L Troponin I High Sens 5.6 (0-14) pg/ml B-Natriuretic Peptide (0-100) pg/ml Total Protein 6.8 (6.0-8.3) gm/dl Albumin 4.0 (3.4-5.0) gm/dl Globulin 2.8 (2.5-4.0) gm/dl Albumin/Globulin Ratio 1.4 (0.9-2) Adenovirus (PCR) Not Detected (NotDetected) B. pertussis DNA (PCR) Not Detected (NotDetected) B.parapertussis DNA PCR Not Detected (NotDetected) C. pneumoniae DNA (PCR) Not Detected (NotDetected) Coronavirus OC43 (PCR) Not Detected (NotDetected) Coronavirus HKU1 (PCR) Not Detected (NotDetected) Coronavirus 229E (PCR) Not Detected (NotDetected) SARS-CoV-2 (PCR) Cancelled Not Detected Coronavirus NL63 (PCR) Not Detected (NotDetected) Human Metapneumovir PCR Not Detected (NotDetected) Influenza Type A (PCR) Cancelled Not Detected Influenza Type B (PCR) Cancelled Not Detected M. pneumoniae (PCR) Not Detected (NotDetected) Parainfluenza 1 (PCR) Not Detected (NotDetected) Parainfluenza 2 (PCR) Not Detected (NotDetected) Parainfluenza 3 (PCR) Not Detected (NotDetected) Parainfluenza 4 (PCR) Not Detected (NotDetected) RSV (RT-PCR) Cancelled RSV (PCR) Not Detected (NotDetected) Entero/Rhino (PCR) Not Detected (NotDetected) 06/02/24 Range/Units 17:09 WBC (4.8-10.8) K/ul RBC (4.20-5.40) M/uL Hgb (12.0-16.0) g/dl Hct (37.0-47.0) % MCV (80.0-100.0) fL MCH (25.0-34.0) pg MCHC (32.0-36.0) g/dL RDW Std Deviation (36.4-46.3) fL RDW Coeff of Bret (11.5-14.5) % Plt Count (130-400) K/uL MPV (9.4-12.4) fL Immature Gran % (Auto) % Neut % (Auto) % Lymph % (Auto) % Concho % (Auto) % Eos % (Auto) % Baso % (Auto) % Neut # (Auto) (1.40-6.50) K/uL Lymph # (Auto) (1.20-3.40) K/uL Con[place] # (Auto) (0.11-0.59) K/uL Eos # (Auto) (0.00-0.50) K/uL Baso # (Auto) (0.00-0.20) K/uL Immature Gran # (Auto) (0.01-0.20) K/uL PT (9.0-12.0) Seconds INR (0.9-1.1) APTT (21-31) Seconds PTT Ratio D-Dimer (0-500) ug/L FEU Sodium (136-145) mmol/L Potassium (3.5-5.1) mmol/L Chloride (98-107) mmol/L Carbon Dioxide (21-32) mmol/L Anion Gap (3-11) BUN (6-23) mg/dl Creatinine (0.6-1.2) mg/dl Est Cr Clr Drug Dosing ml/min eGFR BUN/Creatinine Ratio (10-20) Glucose (70-99(Fasting)) mg/dl Calcium (8.6-10.3) mg/dl Total Bilirubin (0.2-1.0) mg/dl AST (13-39) U/L ALT (7-52) U/L Alkaline Phosphatase (34-104) U/L Troponin I High Sens (0-14) pg/ml B-Natriuretic Peptide 18 (0-100) pg/ml Total Protein (6.0-8.3) gm/dl Albumin (3.4-5.0) gm/dl Globulin (2.5-4.0) gm/dl Albumin/Globulin Ratio (0.9-2) Adenovirus (PCR) (NotDetected) B. pertussis DNA (PCR) (NotDetected) B.parapertussis DNA PCR (NotDetected) C. pneumoniae DNA (PCR) (NotDetected) Coronavirus OC43 (PCR) (NotDetected) Coronavirus HKU1 (PCR) (NotDetected) Coronavirus 229E (PCR) (NotDetected) SARS-CoV-2 (PCR) Coronavirus NL63 (PCR) (NotDetected) Human Metapneumovir PCR (NotDetected) Influenza Type A (PCR) Influenza Type B (PCR) M. pneumoniae (PCR) (NotDetected) Parainfluenza 1 (PCR) (NotDetected) Parainfluenza 2 (PCR) (NotDetected) Parainfluenza 3 (PCR) (NotDetected) Parainfluenza 4 (PCR) (NotDetected) RSV (RT-PCR) RSV (PCR) (NotDetected) Entero/Rhino (PCR) (NotDetected) Administered Medications Discontinued Medications Albuterol (Albut/Ipratrop 3mg/0.5mg Neb 3 Ml Vial) 3 ml NEB NOW STA; Protocol Stop: 06/02/24 17:55 Last Admin: 06/02/24 18:16 Dose: 3 ml Documented By: HB Levalbuterol HCl (Levalbuterol Hcl 0.63 Mg/3 Ml Neb) 0.63 mg NEB NOW STA; Protocol Stop: 06/02/24 16:34 Last Admin: 06/02/24 16:46 Dose: 0.63 mg Documented By: HB Methylprednisolone (Methylprednisolone 125 Mg/2 Ml Vial) 125 mg IV NOW STA Stop: 06/02/24 17:55 Last Admin: 06/02/24 18:16 Dose: 125 mg Documented By: HB Imaging Data Radiologist's Impression: Chest X-Ray 06/02/24 15:34 XR chest 1V not portable CLINICAL HISTORY: Chest pain, nonspecific COMPARISON STUDY: Chest radiograph March 11, 2024. FINDINGS: Lung volumes are normal. Lungs are clear. There is no pneumothorax or pleural effusion. Cardiac size is normal. Mediastinal contours are normal. There is no evidence for pulmonary edema. IMPRESSION: No acute cardiopulmonary findings. ACT 112: Negative or not required by law. Electronically signed by: Mathew Mcguire M.D. 06/02/2024 3:50 PM Discharge Plan Visit Data Chief Complaint: Shortness of Breath/Dyspnea Stated Complaint: DYSPNEA, REF BY URGENT CARE ED Provider: Donn Mcgowan Discharge Problem: Shortness of breath Patient Disposition: Admitted As Inpatient Discharge Instructions Interventions: ED Discharge Assessment Last Done: 06/02/24 21:14
[2024-06-02 16:47] LABS: D Dimer 240 ug/L FEU (0-500); INR 0.9 (0.9-1.1); Partial Thromboplastin Ratio 1.2; Partial Thromboplastin Time 32 Seconds (21-31); Prothrombin Time 10.3 Seconds (9.0-12.0)
[2024-06-02 17:30] LABS: Adenovirus PCR Not Detected (NotDetected); Bordetella parapertussis PCR Not Detected (NotDetected); Bordetella pertussis PCR Not Detected (NotDetected); Chlamydia pneumoniae PCR Not Detected (NotDetected); Coronavirus 229E PCR Not Detected (NotDetected); Coronavirus CoV-2 (COVID19)PCR Not Detected (NotDetected); Coronavirus HKU1 PCR Not Detected (NotDetected); Coronavirus NL63 PCR Not Detected (NotDetected); Coronavirus OC43PCR Not Detected (NotDetected); Human Metapneumovirus PCR Not Detected (NotDetected); Influenza A PCR Not Detected (NotDetected); Influenza B PCR Not Detected (NotDetected); Mycoplasma pneumoniae PCR Not Detected (NotDetected); Parainfluenza Virus 1 PCR Not Detected (NotDetected); Parainfluenza Virus 2 PCR Not Detected (NotDetected); Parainfluenza Virus 3 PCR Not Detected (NotDetected); Parainfluenza Virus 4 PCR Not Detected (NotDetected); Respiratory Syncytial VirusPCR Not Detected (NotDetected); Rhinovirus/Enterovirus PCR Not Detected (NotDetected)
[2024-06-02] MEDS: methylPREDNISolone 125 MG/2 ML VIAL IV STA (18:16)
[2024-06-02] MEDS: ALBUT/IPRATROP 3MG/0.5MG NEB 3 ML VIAL NEB STA (18:16)
--- NOTE | 2024-06-02 19:03 | History & Physical Report ---
Date of Service June 02, 2024 Assessment & Plan (1) Asthma exacerbation: (2) Type 2 diabetes mellitus: (3) Schizoaffective disorder, depressive type: Plan 53 y/o woman with asthma and schizoaffective disorder admitted with acute exacerbation of asthma #Asthma exacerbation Reports that albuterol makes her jittery and she has had hallucinations on prednisone in the past, however, tolerated solumedrol in the hospital per previous discharge summary -judicious dose IV solumetrol -scheduled duoneb qid -bronchodilators - albuterol or xopenex PRN -cont montelukast #bilateral lower chest pain - rib area pain from coughing, musculoskeletal pain and reproducible on palpation. No acute changes on EKG, troponin negative, no evidence of ACS. Not suspicious for angina, dissection, or PE. D-dimer is normal -analgesia, anti-tussives #schizoaffective disorder -stable, continue clozapine (not cytopenic), prn haloperidol, trazodone, lurasidone, lamotrigine, venlafaxine -she states her clozapine dose recently rearranged to 200 mg at lunch and 300 mg at HS #Prediabetes/glucose intolerance - metformin and ozempic held. Recent A1c 5.2% Severe obesity BMI 36 -anticipate steroid induced hyperglycemia - for tonight ordered short acting insulin only -pharmacist glycemic consult hypertension - continue ARB hypothyroidism - continue levothyroxine hepatosplenomegaly nephrolithiasis HLD - cont statin *med reconciliation has not yet been completed, ordered meds per discharge April 2024 DVT ppx- enoxaparin History of Present Illness Chief Complaint: shortness of breath Primary Care Provider: MD Leisa Goss is a 53F nephrolithiasis, urianry incontinence, HSM, fatty liver disease, personality/schizoaffective disorder, iron deficiency anemia, GERD, IBS, anxiety, hypothyroidism, HTN, HLD, asthma 53 y/o woman with history of asthma presenting with dyspnea and wheezing She says one of her caregivers was sick last week. Around [place] started to feel ill. Has had cough since then with increasing shortness of breath at rest and increasing wheezing. She previously had sore throat and nasal congestion, resolved/improved. She was seen in urgent care today and COVID/flu swab negative. They sent her to ED over concern for pneumonia. Bilateral lower anterior ribs are sore from coughing ED treatments - nebulizers, 125 mg solumedrol She says her breathing has improved somewhat with this. Initially not hypoxic in ED but later room air O2 sats in high 80s requiring 2L pnc. Allergies Allergy/AdvReac Type Severity Reaction Status Date / Time doxycycline AdvReac Severe Hearing Verified 04/14/24 11:03 Voices/Depression prednisone AdvReac Severe hallucinati Verified 04/14/24 11:03 ons aspirin AdvReac Intermediate Vomiting Verified 04/14/24 11:03 chlorpromazine AdvReac Intermediate Lightheaded/Shuffling Verified 04/14/24 11:03 Gait Penicillins AdvReac Intermediate Rash/Nausea Verified 04/14/24 11:03 /Vomiting cefdinir AdvReac Mild "it did Verified 04/14/24 11:03 not work" see comment below... levofloxacin AdvReac Unknown Unknown Verified 04/14/24 11:03 NSAIDS (Non-Steroidal AdvReac Unknown Unknown Verified 04/14/24 11:03 Anti-Inflamma quinine AdvReac Unknown Unknown Verified 04/14/24 11:03 theophylline [From [facility]] AdvReac Unknown Unknown Verified 04/14/24 11:03 Home Medications Medication Instructions Recorded Confirmed Type buspirone 10 mg tablet 20 mg PO TID 01/22/19 04/14/24 History clonazepam 0.5 mg tablet (Klonopin) 0.5 mg PO TID anxiety 11/14/21 04/14/24 History clozapine 50 mg tablet 100 mg PO QDL 12/25/21 04/14/24 History venlafaxine 150 mg 300 mg PO QAM 12/25/21 04/14/24 History capsule,extended release 24 hr (Effexor XR) lancing device with lancets kit #1 ea 11/20/22 04/14/24 Rx (OneTouch Delica Plus Lancing Device kit) clozapine 100 mg tablet (Clozaril) 400 mg PO HS 11/22/22 04/14/24 History cyanocobalamin (vitamin B-12) 2,000 mcg PO QAM 01/15/23 04/14/24 History 1,000 mcg capsule cholecalciferol (vitamin D3) 25 25 mcg PO QAM #90 caps 05/14/23 04/14/24 Rx mcg (1,000 unit) capsule (Vitamin D3) ferrous sulfate 325 mg (65 mg 325 mg PO QAM #90 tabs 05/14/23 04/14/24 Rx iron) tablet,delayed release levothyroxine 125 mcg tablet 125 mcg PO QAM #90 tabs 05/14/23 04/14/24 Rx (Synthroid) losartan 50 mg tablet (Cozaar) 50 mg PO QAM #90 tabs 05/14/23 04/14/24 Rx blood sugar diagnostic (OneTouch #100 ea 07/14/23 04/14/24 Rx Ultra Test strips) lancets 30 gauge (OneTouch Delica #100 ea 07/14/23 04/14/24 Rx Plus Lancet) metformin 500 mg tablet 1,000 mg (2 x 500 mg) PO BID #360 07/14/23 04/14/24 Rx tabs ergocalciferol (vitamin D2) 1,250 50,000 unit PO MONTHLY #12 caps 07/28/23 04/14/24 Rx mcg (50,000 unit) capsule (Vitamin D2) haloperidol 1 mg tablet 3 mg (3 x 1 mg) PO BID PRN 12/24/23 04/14/24 Rx hallucinations 30 days #90 tabs lamotrigine 100 mg tablet 200 mg (2 x 100 mg) PO HS #0 tabs 12/24/23 04/14/24 Rx (Lamictal) albuterol sulfate 90 mcg/actuation 2 puff inhalation .Q4-6H PRN 02/03/24 04/14/24 Rx aerosol inhaler shortness of breath or wheezing #8.5 grams Jyoti Quercetin Phytosome 1 tab PO DAILY 03/01/24 04/14/24 History acetaminophen 500 mg tablet 1,000 mg PO QID PRN Pain 03/01/24 04/14/24 History cranberry fruit concentrate 250 mg 500 mg PO DAILY 03/01/24 04/14/24 History chewable tablet (Azo Cranberry) estradiol 1 mg tablet (Estrace) 1 mg PO QAM 03/01/24 04/14/24 History folic acid 400 mcg tablet 400 mcg PO QAM 03/01/24 04/14/24 History loperamide 2 mg tablet (Imodium 2 mg PO DAILY PRN Diarrhea 03/01/24 04/14/24 History A-D) lurasidone 80 mg tablet (Latuda) 80 mg PO QPM 03/01/24 04/14/24 History magnesium oxide 400 mg (241.3 mg 400 mg PO QAM 03/01/24 04/14/24 History magnesium) tablet montelukast 10 mg tablet 10 mg PO HS 03/01/24 04/14/24 History (Singulair) trazodone 150 mg tablet 150 mg PO HS 03/01/24 04/14/24 History vibegron 75 mg tablet (Gemtesa) 75 mg PO HS 03/01/24 04/14/24 History semaglutide 1 mg/dose (4 mg/3 mL) 1 mg subcut Q7D 03/09/24 04/14/24 History subcutaneous pen injector (Ozempic) cefdinir 300 mg capsule 300 mg PO BID #7 caps 03/14/24 04/14/24 Rx nystatin 100,000 unit/gram topical 1 applic topical BID #15 grams 03/25/24 04/14/24 Rx cream mirabegron 50 mg tablet,extended 50 mg PO DAILY #30 tabs 04/21/24 Rx release 24 hr (Myrbetriq) atorvastatin 40 mg tablet 40 mg PO HS 90 days #90 tabs 05/14/24 Rx Past Med/Surg History Problem List (Updated 06/02/24 @ 19:09 by Hetal Baumann MD) Asthma exacerbation Shortness of breath (Acute) Complicated UTI (urinary tract infection) S/P ureteral stent placement Lightheadedness (Acute) Acute hyponatremia (Acute) Auditory hallucinations (Acute) 12/15/23 Facial cellulitis 09/29/23 Bladder pain 01/01/23 Nephrolithiasis Right flank pain 12/05/22 Nocturnal enuresis Urinary incontinence Symptoms of urinary tract infection 11/22/22 Acute hyponatremia 12/25/21 Rash and nonspecific skin eruption 03/07/21 Diarrhea 03/16/20 Obesity Hypomagnesemia 01/01/20 Hepatosplenomegaly Fatty liver Personality disorder Vitamin D deficiency (Acute) Vitamin B12 deficiency (Acute) Tremor (Acute) Seborrheic keratosis (Acute) Iron deficiency anemia (Acute) Hemorrhoids (Acute) Gastro-esophageal reflux (Acute) Eczema (Acute) Chronic sinusitis (Acute) 12/14/18 Anxiety IBS (irritable bowel syndrome) Type 2 diabetes mellitus (Chronic) Hypothyroidism (Chronic) Hypertension (Chronic) Dyslipidemia (Chronic) Asthma (Chronic) Schizoaffective disorder, depressive type (Chronic 01/11/11) Medical History Intentional overdose hx - Denies SI at this time Hemorrhoids Hx: UTI (urinary tract infection) multiple PONV (postoperative nausea and vomiting) "With a really bad headache" History of COVID-19 "A month ago" no hospitalization 02/03/24 - denies issues at this time Personality disorder Schizoaffective disorder, depressive type Type 2 diabetes mellitus Tremor Nephrolithiasis Anemia IBS (irritable bowel syndrome) Hypothyroidism Hepatosplenomegaly pt unsure HTN (hypertension) GERD (gastroesophageal reflux disease) Pt unsure History of abscessed tooth 09/2023 [facility] Diarrhea Chronic - imodium Auditory hallucinations denies issues at this time Asthma Anxiety agoraphobia per PAT RN call Suicidal ideations Denies SI at this time Suicidal ideation Denies SI at this time Hypoxemia pt denies Influenza (2019) hx Bacterial pneumonia (01/11/11) pt denies Surgical History Hx of colonoscopy H/O wisdom tooth extraction History of thyroid surgery pt denies H/O: hysterectomy Family History Mother Breast cancer Hypertension Stroke Unknown Hypertension Father Hypertension Heart disease Cancer Grandfather Heart disease Stroke Brother Myocardial infarction Grandmother (Maternal) Colon cancer Grandmother Stroke Denies family history of Ovarian cancer Prostate cancer Social History Smoking Status: Never smoker Tobacco Type: Cigarettes Second Hand Exposure: No; Do You Dip or Chew Tobacco: No; Hx Alcohol Use: No Hx Substance Use: No Preferred Language: Lao Communication Ability: Effective Visual Impairment: No Limitations Hearing Ability: Normal Director Stars Required: No Beliefs That Will Affect Care: None marital status: Single Current Living Situation: Alone current occupational status: disabled How many Children do You have: 0 Feels Safe at Home: Yes Childhood Exposure to Second-Hand Smoke: No Physical Activity Frequency: Daily Seatbelt Use: always Sunscreen Use: No Gender Identity: Female Assistive Devices: Walker Review of Systems Review of Systems: All systems reviewed & are unremarkable except as noted in HPI & below Physical Exam Physical Exam: PHYSICAL EXAMINATION Last 24h vital signs reviewed, see documentation in flowsheet General: comfortable appearing, no distress HEENT: Normocephalic, atraumatic, pupils round and equal, sclerae anicteric, no conjunctival injection, moist mucus membranes Lungs: Normal respiratory effort. speaking in full sentences. late expiratory wheezing all garner bilaterally, air movement fair, no crackles or rales Heart: Regular rate and rhythm, no murmurs. No JVD. chest wall tender to palpation bilateral lower ribs anteriorly and laterally Abdomen: Soft, nontender, nondistended. Bowel sounds present. Extremities: Warm, dry, well-perfused. 1+ lower extremity edema. Neuro: Alert and oriented x 4, face symmetric, moves 4 extremities well Psych: flat affect and normal behavior Results & Data Results & Data Vital Signs (Past 12 Hours) Vital Signs Temp Pulse Pulse Resp BP BP Pulse Ox 06/02/24 18:36 82 13 120/86 95 06/02/24 18:00 84 19 151/88 H 95 06/02/24 17:51 93 06/02/24 17:50 86 L 06/02/24 17:30 147/86 H 06/02/24 17:09 83 19 120/78 96 06/02/24 16:30 06/02/24 16:30 86 18 137/78 94 06/02/24 16:30 94 06/02/24 15:31 97.3 F L 94 H 20 108/75 94 O2 Del Method O2 Flow Rate 06/02/24 18:36 06/02/24 18:00 Nasal Cannula 2 06/02/24 17:51 Nasal Cannula 2 06/02/24 17:50 Room Air 06/02/24 17:30 06/02/24 17:09 06/02/24 16:30 Room Air 06/02/24 16:30 Room Air 06/02/24 16:30 Room Air 06/02/24 15:31 Room Air Laboratory Results 06/02/24 06/02/24 06/02/24 Range/Units 17:09 16:00 15:50 WBC (4.8-10.8) K/ul RBC (4.20-5.40) M/uL Hgb (12.0-16.0) g/dl Hct (37.0-47.0) % MCV (80.0-100.0) fL MCH (25.0-34.0) pg MCHC (32.0-36.0) g/dL RDW Std Deviation (36.4-46.3) fL RDW Coeff of Bret (11.5-14.5) % Plt Count (130-400) K/uL MPV (9.4-12.4) fL Immature Gran % (Auto) % Neut % (Auto) % Lymph % (Auto) % [place] % (Auto) % Eos % (Auto) % Baso % (Auto) % Neut # (Auto) (1.40-6.50) K/uL Lymph # (Auto) (1.20-3.40) K/uL [place] # (Auto) (0.11-0.59) K/uL Eos # (Auto) (0.00-0.50) K/uL Baso # (Auto) (0.00-0.20) K/uL Immature Gran # (Auto) (0.01-0.20) K/uL PT (9.0-12.0) Seconds INR (0.9-1.1) APTT (21-31) Seconds PTT Ratio D-Dimer (0-500) ug/L FEU Sodium (136-145) mmol/L Potassium (3.5-5.1) mmol/L Chloride (98-107) mmol/L Carbon Dioxide (21-32) mmol/L Anion Gap (3-11) BUN (6-23) mg/dl Creatinine (0.6-1.2) mg/dl Est Cr Clr Drug Dosing ml/min eGFR BUN/Creatinine Ratio (10-20) Glucose (70-99(Fasting)) mg/dl Calcium (8.6-10.3) mg/dl Total Bilirubin (0.2-1.0) mg/dl AST (13-39) U/L ALT (7-52) U/L Alkaline Phosphatase (34-104) U/L Troponin I High Sens (0-14) pg/ml B-Natriuretic Peptide 18 (0-100) pg/ml Total Protein (6.0-8.3) gm/dl Albumin (3.4-5.0) gm/dl Globulin (2.5-4.0) gm/dl Albumin/Globulin Ratio (0.9-2) Adenovirus (PCR) Not Detected (NotDetected) B. pertussis DNA (PCR) Not Detected (NotDetected) B.parapertussis DNA PCR Not Detected (NotDetected) C. pneumoniae DNA (PCR) Not Detected (NotDetected) Coronavirus OC43 (PCR) Not Detected (NotDetected) Coronavirus HKU1 (PCR) Not Detected (NotDetected) Coronavirus 229E (PCR) Not Detected (NotDetected) SARS-CoV-2 (PCR) Not Detected Cancelled Coronavirus NL63 (PCR) Not Detected (NotDetected) Human Metapneumovir PCR Not Detected (NotDetected) Influenza Type A (PCR) Not Detected Cancelled Influenza Type B (PCR) Not Detected Cancelled M. pneumoniae (PCR) Not Detected (NotDetected) Parainfluenza 1 (PCR) Not Detected (NotDetected) Parainfluenza 2 (PCR) Not Detected (NotDetected) Parainfluenza 3 (PCR) Not Detected (NotDetected) Parainfluenza 4 (PCR) Not Detected (NotDetected) RSV (RT-PCR) Cancelled RSV (PCR) Not Detected (NotDetected) Entero/Rhino (PCR) Not Detected (NotDetected) 06/02/24 Range/Units 15:34 WBC 5.59 (4.8-10.8) K/ul RBC 3.73 L (4.20-5.40) M/uL Hgb 10.0 L (12.0-16.0) g/dl Hct 31.6 L (37.0-47.0) % MCV 84.7 (80.0-100.0) fL MCH 26.8 (25.0-34.0) pg MCHC 31.6 L (32.0-36.0) g/dL RDW Std Deviation 43.5 (36.4-46.3) fL RDW Coeff of Bret 14.0 (11.5-14.5) % Plt Count 215 (130-400) K/uL MPV 8.8 L (9.4-12.4) fL Immature Gran % (Auto) 0.2 % Neut % (Auto) 53.1 % Lymph % (Auto) 38.5 % [place] % (Auto) 8.2 % Eos % (Auto) 0.0 % Baso % (Auto) 0.0 % Neut # (Auto) 2.97 (1.40-6.50) K/uL Lymph # (Auto) 2.15 (1.20-3.40) K/uL [place] # (Auto) 0.46 (0.11-0.59) K/uL Eos # (Auto) 0.00 (0.00-0.50) K/uL Baso # (Auto) 0.00 (0.00-0.20) K/uL Immature Gran # (Auto) 0.01 (0.01-0.20) K/uL PT 10.3 (9.0-12.0) Seconds INR 0.9 (0.9-1.1) APTT 32 H (21-31) Seconds PTT Ratio 1.2 D-Dimer 240 (0-500) ug/L FEU Sodium 141 (136-145) mmol/L Potassium 3.8 (3.5-5.1) mmol/L Chloride 105 (98-107) mmol/L Carbon Dioxide 26 (21-32) mmol/L Anion Gap 10 (3-11) BUN 18 (6-23) mg/dl Creatinine 0.80 (0.6-1.2) mg/dl Est Cr Clr Drug Dosing 92.5 ml/min eGFR 86.96 BUN/Creatinine Ratio 22.5 H (10-20) Glucose 88 (70-99(Fasting)) mg/dl Calcium 8.6 (8.6-10.3) mg/dl Total Bilirubin 0.2 (0.2-1.0) mg/dl AST 13 (13-39) U/L ALT 17 (7-52) U/L Alkaline Phosphatase 77 (34-104) U/L Troponin I High Sens 5.6 (0-14) pg/ml B-Natriuretic Peptide (0-100) pg/ml Total Protein 6.8 (6.0-8.3) gm/dl Albumin 4.0 (3.4-5.0) gm/dl Globulin 2.8 (2.5-4.0) gm/dl Albumin/Globulin Ratio 1.4 (0.9-2) Adenovirus (PCR) (NotDetected) B. pertussis DNA (PCR) (NotDetected) B.parapertussis DNA PCR (NotDetected) C. pneumoniae DNA (PCR) (NotDetected) Coronavirus OC43 (PCR) (NotDetected) Coronavirus HKU1 (PCR) (NotDetected) Coronavirus 229E (PCR) (NotDetected) SARS-CoV-2 (PCR) Coronavirus NL63 (PCR) (NotDetected) Human Metapneumovir PCR (NotDetected) Influenza Type A (PCR) Influenza Type B (PCR) M. pneumoniae (PCR) (NotDetected) Parainfluenza 1 (PCR) (NotDetected) Parainfluenza 2 (PCR) (NotDetected) Parainfluenza 3 (PCR) (NotDetected) Parainfluenza 4 (PCR) (NotDetected) RSV (RT-PCR) RSV (PCR) (NotDetected) Entero/Rhino (PCR) (NotDetected) Diagnostic Findings Chest X-Ray 06/02/24 15:34 XR chest 1V not portable CLINICAL HISTORY: Chest pain, nonspecific COMPARISON STUDY: Chest radiograph March 11, 2024. FINDINGS: Lung volumes are normal. Lungs are clear. There is no pneumothorax or pleural effusion. Cardiac size is normal. Mediastinal contours are normal. There is no evidence for pulmonary edema. IMPRESSION: No acute cardiopulmonary findings. ACT 112: Negative or not required by law. Electronically signed by: Mathew Mcguire M.D. 06/02/2024 3:50 PM ECG Additional Comments: sinus rhythm, no ST elevations or depressions, V1-3 poor r-wave progression PG Care Time/CCT Total # of Minutes Spent Total Time Spent with Patient: Total time spent is greater than 50% in coordination of care (as documented) at patient's floor/unit and/or counseling patient: Coding Level of Care Code 03237 INT INP/OBS CARE 2/55MIN Diagnoses Asthma exacerbation J45.901 Type 2 diabetes mellitus without complication, without long-term current use of insulin E11.9 Diabetes mellitus complication status: without complication Diabetes mellitus buttermaker insulin use: without senior living use Schizoaffective disorder, depressive type F25.1 (2) Type 2 diabetes mellitus Diabetes mellitus complication status: without complication Diabetes mellitus senior living insulin use: without buttermaker use Qualified Code(s): E11.9 - Type 2 diabetes mellitus without complications
[2024-06-02] MEDS ORDERED: GLUCAGON FOR INJ 1 MG VIAL SQ PRN (21:14)
[2024-06-02] MEDS ORDERED: ONDANSETRON INJ 2 MG/ML 2 ML VIAL IV PRN (21:14)
[2024-06-02] MEDS ORDERED: clonazePAM 0.5 MG TAB PO PRN (21:14)
[2024-06-02] MEDS ORDERED: POLYETHYLENE (MIRALAX) 17 GM PACK PO PRN (21:14)
[2024-06-02] MEDS ORDERED: MAGNESIUM HYDROXIDE SUSP 30 ML UDC PO PRN (21:14)
[2024-06-02] MEDS ORDERED: GLUCOSE 40% GEL 15 GM TUBE PO PRN (21:14)
[2024-06-02] MEDS ORDERED: DEXTROSE 50% 50 ML SYRINGE IV PRN (21:14)
[2024-06-02] MEDS ORDERED: CARBOHYDRATES FOR HYPOGLYCEMIA PO PRN (21:14)
[2024-06-02] MEDS ORDERED: ACETAMINOPHEN 325 MG TAB PO PRN (21:14)
[2024-06-02] MEDS ORDERED: ALUMINUM/MAGNESIUM SUSP 30 ML UDC PO PRN (21:14)
[2024-06-02] MEDS ORDERED: haloperidoL 1 MG TAB PO PRN (21:14)
[2024-06-02] MEDS ORDERED: GLUCOSE 10 TAB/TUBE PO PRN (21:14)
[2024-06-02] MEDS ORDERED: PHARMACY GLYCEMIC MGMT CONSULT PRN (21:14)
[2024-06-02] MEDS ORDERED: PROCHLORPERAZINE 5 MG in SYRINGE 4 ML IV PRN (21:20)
[2024-06-02] MEDS ORDERED: ALBUTEROL 0.083% NEBU SOLN 3 ML VIAL NEB PRN (21:20)
[2024-06-02] MEDS: INSULIN ASPART PER UNIT CHARGE SC SCH (23:22)
[2024-06-02] MEDS: traZODone HCL 50 MG TAB PO SCH (23:35)
[2024-06-02] MEDS: guaiFENesin 600 MG TABCR PO SCH (23:36)
[2024-06-02] MEDS: busPIRone 5 MG TAB PO SCH (23:36)
[2024-06-02] MEDS: lamoTRIgine 100 MG TAB PO SCH (23:36)
[2024-06-02] MEDS: ATORVASTATIN 40 MG TAB PO SCH (23:36)
[2024-06-02] MEDS: MONTELUKAST SODIUM 10 MG TABLET PO SCH (23:36)
[2024-06-02] MEDS: cloZAPine 100 MG TAB PO SCH (23:37)
[2024-06-02] MEDS: LURASIDONE HCL 20 MG TAB PO SCH (23:37)
[2024-06-03] MEDS: ALBUT/IPRATROP 3MG/0.5MG NEB 3 ML VIAL INH SCH (00:30)
[2024-06-03] MEDS ORDERED: LOPERAMIDE HCL 2 MG CAP PO PRN (01:17)
[2024-06-03] MEDS: LEVOTHYROXINE SODIUM 125 MCG TABLET PO SCH (05:57)
[2024-06-03] MEDS: estradioL 1 MG TAB PO SCH (08:08)
[2024-06-03] MEDS: VENLAFAXINE HCL XR 150 MG CAPXR PO SCH (08:08)
[2024-06-03] MEDS: LOSARTAN POTASSIUM 50 MG TAB PO SCH (08:08)
[2024-06-03] MEDS: MAGNESIUM OXIDE 400 MG TAB PO SCH (08:08)
[2024-06-03] MEDS: ENOXAPARIN INJ 40 MG/0.4 ML SYR SQ SCH (08:08)
[2024-06-03] MEDS: methylPREDNISolone 40 MG in SYRINGE 0 ML IV SCH (08:14)
--- NOTE | 2024-06-03 10:18 | Pharmacy Report ---
Pharmacy Glycemic Short Note 2 - Date of Service June 03, 2024 - Glycemic Short BSG Results (Last 24 hours): 06/02/24 06/02/24 06/03/24 15:34 22:34 07:13 Glucose 88 POC Glucose 148 H 148 H OUTPATIENT ANTIDIABETIC REGIMEN: * Metformin 1g PO BID * Ozempic 1mg SC Q7D (on Sundays) * A1c 5.2% 04/20/24 ASSESSMENT: * 53 yo F with asthma and schizoaffective disorder admitted with acute exacerbation of asthma, on IV steroids, received Solu-Medrol 125mg x 1 yesterday and then began 40mg IV Q12H today. * BG at goal at this time, without any basal, continue NovoLog only and add basal on if BG trends above goal. PLAN FOR INPATIENT GLYCEMIC CONTROL: * Hold outpatient diabetes medications * Basal insulin * hold at this time * Bolus insulin * NovoLog per scale ACHS or Q6hrs while NPO * Goal Range: Low 110 mg/dL - High 140 mg/dL * Correction Factor: 25 mg/dL/unit * Nutritional / Prandial insulin per carb ratio of 1 unit per 8 grams CHO consumed
[2024-06-03] MEDS: cloZAPine 100 MG TAB PO SCH (12:08)
--- NOTE | 2024-06-03 12:39 | Electrocardiogram Report ---
Test Reason : Blood Pressure : */* mmHG Vent. Rate : 91 BPM Atrial Rate : 91 BPM P-R Int : 142 ms QRS Dur : 86 ms QT Int : 342 ms P-R-T Axes : 48 -12 35 degrees QTcB Int : 420 ms Normal sinus rhythm Low voltage QRS Septal infarct (cited on or before 11-Mar-2024) Abnormal ECG When compared with ECG of 11-Mar-2024 18:12, Premature atrial complexes are no longer Present Criteria for Inferior infarct are no longer Present Questionable change in initial forces of Septal leads ST no longer elevated in Inferior leads Confirmed by Niles Arnett ([id number]) on 06/03/2024 12:39:26 PM Referred By: REFERRED SELF Confirmed By: Niles Arnett
[2024-06-03] MEDS: clonazePAM 0.5 MG TAB PO SCH (14:20)
--- NOTE | 2024-06-03 19:13 | Hospitalist Progress Note ---
Date of Service June 03, 2024 Assessment & Plan (1) Asthma exacerbation: (2) Type 2 diabetes mellitus: (3) Schizoaffective disorder, depressive type: Plan 53 y/o woman with asthma and schizoaffective disorder admitted with acute exacerbation of asthma, which is improving but not fully resolved at this time #Asthma exacerbation Reports that albuterol makes her jittery and she has had hallucinations on prednisone in the past, however, tolerated solumedrol in the hospital per pr evious discharge summary -continue IV solumetrol 40 mg Q12H -scheduled duoneb qid -bronchodilators - albuterol or xopenex PRN -cont montelukast #bilateral lower chest pain - rib area pain from coughing, musculoskeletal pain and reproducible on palpation. No acute changes on EKG, troponin negative, no evidence of ACS. Not suspicious for angina, dissection, or PE. D-dimer is normal -analgesia, anti-tussives #schizoaffective disorder -stable, continue clozapine, prn haloperidol, trazodone, lurasidone, lamotrigine, venlafaxine -she states her clozapine dose recently rearranged to 200 mg at lunch and 300 mg at HS #Prediabetes/glucose intolerance - metformin and ozempic held. Recent A1c 5.2%. Severe obesity BMI 36 -anticipate steroid induced hyperglycemia -pharmacist glycemic consult hypertension - continue ARB hypothyroidism - continue levothyroxine HLD - cont statin DVT ppx- enoxaparin CODE STATUS: Full code Dispo: Anticipate discharge 06/04/2024 if continued improvement in respiratory status Admission and Anticipated Discharge Date Admission Date: June 02, 2024 Subjective Patient seen and evaluated at bedside. She reports feeling better compared to yesterday, but is not back to her baseline yet. She notes that the steroids "make me feel a little jittery." She reports some chest tightness, but denies difficulty breathing or true chest pain. We discussed continued inpatient stay for further IV steroids and DuoNebs with RT. No additional complaints or concerns at this time. Physical Exam Physical Exam: General: No acute distress, nondiaphoretic, well-developed, well-nourished. Skin: The skin was without rashes, erythema, edema, or bruising. Cardiac: Regular rate and rhythm without murmurs gallops or rubs. Pulm: Expiratory wheeze noted in all lung garner bilaterally. No respiratory distress. No tachypnea. 91% on room air. Abdominal: Soft, nontender, nondistended. Bowel sounds present. Neuro: A&O x3. No focal neurological deficits. Psych: Flat affect. Results & Data Results & Data Vital Signs (Past 12 Hours) Vital Signs Temp Pulse Resp BP Pulse Ox O2 Del Method O2 Flow Rate 06/03/24 16:09 98.4 F 71 18 110/71 91 Room Air 06/03/24 13:23 90 22 92 Room Air 06/03/24 08:02 90 Room Air 06/03/24 07:45 Room Air 06/03/24 07:38 76 18 95 Nasal Cannula 2 06/03/24 07:09 98.6 F 70 17 147/90 H 96 Nasal Cannula 2.5 Laboratory Results Reviewed POC glucose PG Care Time/CCT Total # of Minutes Spent Total Time Spent with Patient: Total time spent is greater than 50% in coordination of care (as documented) at patient's floor/unit and/or counseling patient: Coding Level of Care Code 15919 SUB INP/OBS CARE 2/35MIN Diagnoses Asthma exacerbation J45.901 Type 2 diabetes mellitus without complication, without long-term current use of insulin E11.9 Diabetes mellitus alf insulin use: without alf use Diabetes mellitus complication status: without complication Schizoaffective disorder, depressive type F25.1 (2) Type 2 diabetes mellitus Diabetes mellitus alf insulin use: without termite control servicer use Diabetes mellitus complication status: without complication Qualified Code(s): E11.9 - Type 2 diabetes mellitus without complications
[2024-06-03] MEDS: LANTUS PER UNIT CHARGE SC SCH (20:35)
[2024-06-04 07:21] VITALS: BP 138/87; TEMP 97.9
--- NOTE | 2024-06-04 09:38 | Pharmacy Report ---
Pharmacy Glycemic Short Note 2 - Date of Service June 04, 2024 - Glycemic Short BSG Results (Last 24 hours): 06/03/24 06/03/24 06/03/24 11:27 16:24 20:26 POC Glucose 207 H 160 H 123 H 06/04/24 07:23 POC Glucose 122 H OUTPATIENT ANTIDIABETIC REGIMEN: * Metformin 1g PO BID * Ozempic 1mg SC Q7D (on Sundays) * A1c 5.2% 04/20/24 ASSESSMENT: 06/04 * Leisa received 31 units of insulin yesterday (all were bolus) * Fasting BSG was within goal range this morning so no basal insulin will be started this morning. There was a basal insulin scale started last evening (0-15 units of lantus depending on BSG) but none was required. This scale will be continued tonight as patient continues on Q12H iv methylprednisolone. * BSG jaime with lunch and dinner checks yesterday, so bolus insulin parameters were tightened to weight-based dosing with a stress of 3. This will be continued today. 06/03 * 53 yo F with asthma and schizoaffective disorder admitted with acute exacerbation of asthma, on IV steroids, received Solu-Medrol 125mg x 1 yesterday and then began 40mg IV Q12H today. * BG at goal at this time, without any basal, continue NovoLog only and add basal on if BG trends above goal. PLAN FOR INPATIENT GLYCEMIC CONTROL: * Hold outpatient diabetes medications * Basal insulin * Lantus scale at HS (hold for BSG < 180, 15 units for BSG > or = 180) * Bolus insulin * NovoLog per scale ACHS or Q6hrs while NPO * Goal Range: Low 110 mg/dL - High 140 mg/dL * Correction Factor: 15 mg/dL/unit * Nutritional / Prandial insulin per carb ratio of 1 unit per 6 grams CHO consumed
[2024-06-04 12:51] VITALS: RESP 16; O2SAT 93
[2024-06-04 15:22] VITALS: PULSE 82
--- NOTE | 2024-06-04 19:27 | Discharge Summary ---
Discharge Summary Date of Service June 04, 2024 Principal Dx & Hospital Course #1 = Principal Diagnosis (1) Asthma exacerbation: (2) Type 2 diabetes mellitus: (3) Schizoaffective disorder, depressive type: Plan 53 y/o woman with asthma and schizoaffective disorder admitted with acute exacerbation of asthma, which is improving but not fully resolved at this time #Asthma exacerbation Reports that albuterol makes her jittery and she has had hallucinations on prednisone in the past, however, tolerated solumedrol in the hospital per previous discharge summary -Treated with IV solumetrol 40 mg Q12H and scheduled duoneb qid -cont montelukast -Discharged with new albuterol inhaler prescription and dexamethasone 4 mg x 4 days then 2 mg x 4 days -Recommend follow-up with PCP in 1 week #bilateral lower chest pain - rib area pain from coughing, musculoskeletal pain and reproducible on palpation. No acute changes on EKG, troponin negative, no evidence of ACS. Not suspicious for angina, dissection, or PE. D-dimer is normal -analgesia, anti-tussives #schizoaffective disorder -stable, continue clozapine, prn haloperidol, trazodone, lurasidone, lamotrigine, venlafaxine -she states her clozapine dose recently rearranged to 200 mg at lunch and 300 mg at HS #Prediabetes/glucose intolerance - metformin and ozempic held. Recent A1c 5.2%. Severe obesity BMI 36 -anticipate steroid induced hyperglycemia -pharmacist glycemic consult hypertension - continue ARB hypothyroidism - continue levothyroxine HLD - cont statin DVT ppx- enoxaparin CODE STATUS: Full code Dispo: Discharged home 06/04/2024 Notes For Next Care Provider Medication Changes From Visit Dexamethasone taper Admission HPI Per Admitting Provider Leisa is a 53F nephrolithiasis, urianry incontinence, HSM, fatty liver disease, personality/schizoaffective disorder, iron deficiency anemia, GERD, IBS, anxiety, hypothyroidism, HTN, HLD, asthma 53 y/o woman with history of asthma presenting with dyspnea and wheezing She says one of her caregivers was sick last week. Around [place] started to feel ill. Has had cough since then with increasing shortness of breath at rest and increasing wheezing. She previously had sore throat and nasal congestion, resolved/improved. She was seen in urgent care today and COVID/flu swab negative. They sent her to ED over concern for pneumonia. Bilateral lower anterior ribs are sore from coughing ED treatments - nebulizers, 125 mg solumedrol She says her breathing has improved somewhat with this. Initially not hypoxic in ED but later room air O2 sats in high 80s requiring 2L pnc. Discharge Exam General: No acute distress, nondiaphoretic, well-developed, well-nourished. Skin: The skin was without rashes, erythema, edema, or bruising. Cardiac: Regular rate and rhythm without murmurs gallops or rubs. Pulm: Expiratory wheeze noted in all lung garner bilaterally. No respiratory distress. No tachypnea. 91% on room air. Abdominal: Soft, nontender, nondistended. Bowel sounds present. Neuro: A&O x3. No focal neurological deficits. Psych: Flat affect. Discharge Plan Discharge Items Patient Disposition: Home - Self-Care Reason For Visit: ASTHMA EXACERBATION Discharge Diagnosis: Asthma exacerbation Activity: Resume your previous activity Non-emergency contact: Primary Care Provider Call non-emergency contact if: you have any medication questions and your symptoms worsen Follow-up/Referrals: Niles Tam MD [Primary Care Provider] - 06/11/24 10:20 am (Follow-up in 1 week) Diet: Carb Consistent or DM2 Addtl Attending Provider Instructions: Leisa, You were admitted to the hospital due to an asthma exacerbation. You were treated with IV steroids and breathing treatments while in the hospital. You will continue taking an oral steroid taper at home. Upon discharge from the hospital: * Take steroid taper as directed: Take 4 mg (2 pills) x 4 days, then take 2 mg (1 pill) x 4 days * Use your albuterol inhaler as needed for shortness of breath or wheezing. Use 2 puffs every 4-6 hours as needed. * Monitor your blood sugar at home and let your PCP know if your blood sugar readings are consistently >200. * Follow-up with your PCP in 1 week. * Continue other home medications as prescribed. Please return to the hospital if you experience any of the following: * Severe wheezing, Shortness of breath that does not get better with quick- relief medicine * Trouble walking or talking because of shortness of breath, Coughing that does not improve with quick-relief medicine * Chest tightness that does not improve with quick-relief medicine * Blue, reid, or purple lips or fingernails * Peak flow meter readings less than 50% of your personal best that don't get better after using your quick-relief medicine (if you use a peak flow meter) It was a pleasure taking care of you while you were in the hospital, Hetla Fuentes PA-C Pending Studies at Discharge: No Stand-Alone Forms: My [facility], Smoking Cessation Medications and DC Order Prescriptions: New dexamethasone 2 mg tablet 2 mg PO UD Qty: 24 0RF Rx Instructions: Take 4 mg (2 pills) x 4 days, then take 2 mg (1 pill) x 4 days Continued buspirone 10 mg tablet 20 mg PO TID (DME) lancing device with lancets [OneTouch Delica Plus Lanc Dev] Kit See Rx Instructions .Route Qty: 1 0RF Rx Instructions: test once a day losartan [Cozaar] 50 mg tablet 50 mg PO QAM Qty: 90 3RF Rx Instructions: take in morning levothyroxine [Synthroid] 125 mcg tablet 125 mcg PO QAM Qty: 90 3RF ferrous sulfate 325 mg (65 mg iron) tablet,delayed release (DR/EC) 325 mg PO QAM Qty: 90 3RF cholecalciferol (vitamin D3) [Vitamin D3] 25 mcg (1,000 unit) capsule 25 mcg PO QAM Qty: 90 3RF (DME) lancets [OneTouch Delica Plus Lancet] 30 gauge misc See Rx Instructions .Route Qty: 100 3RF Rx Instructions: test QD and as needed metformin 500 mg tablet 1,000 mg PO BID Qty: 360 3RF (DME) OneTouch Ultra Test Strip See Rx Instructions .Route Qty: 100 3RF Rx Instructions: Test blood sugars daily. E11.9 ergocalciferol (vitamin D2) [Vitamin D2] 1,250 mcg (50,000 unit) capsule 50,000 unit PO MONTHLY Qty: 12 0RF Rx Instructions: TAKE ON 1ST DAY OF MONTH nystatin 100,000 unit/gram cream 1 applic topical BID Qty: 15 2RF mirabegron [Myrbetriq] 50 mg tablet extended release 24 hr 50 mg PO DAILY Qty: 30 11RF atorvastatin 40 mg tablet 40 mg PO HS 90 Days Qty: 90 3RF Rx Instructions: at bedtime venlafaxine [Effexor XR] 150 mg capsule,extended release 24hr 300 mg PO QAM clozapine 50 mg tablet 100 mg PO QDL Rx Instructions: Take at noon clonazepam [Klonopin] 0.5 mg tablet 0.5 mg PO TID cyanocobalamin (vitamin B-12) 1,000 mcg capsule 2,000 mcg PO QAM clozapine [Clozaril] 100 mg tablet 400 mg PO HS lamotrigine [Lamictal] 100 mg tablet 200 mg PO HS Qty: 0 0RF haloperidol 1 mg tablet 3 mg PO BID PRN (Reason: hallucinations) 30 Days Qty: 90 1RF loperamide [Imodium A-D] 2 mg Tablet 2 mg PO DAILY PRN (Reason: Diarrhea) folic acid 400 mcg tablet 400 mcg PO QAM acetaminophen 500 mg Tablet 1,000 mg PO QID PRN (Reason: Pain) trazodone 150 mg tablet 150 mg PO HS lurasidone [Latuda] 80 mg tablet 80 mg PO QPM Azo Cranberry 250 mg Tablet,Chewable 500 mg PO DAILY Gemtesa 75 mg tablet 75 mg PO HS Jyoti Quercetin Phytosome 1 tab PO DAILY magnesium oxide 400 mg (241.3 mg magnesium) tablet 400 mg PO QAM estradiol [Estrace] 1 mg tablet 1 mg PO QAM montelukast [Singulair] 10 mg tablet 10 mg PO HS Ozempic 1 mg/dose (4 mg/3 mL) pen injector 1 mg subcut Q7D Rx Instructions: Friday cefdinir 300 mg capsule 300 mg PO BID Qty: 7 0RF albuterol sulfate 90 mcg/actuation HFA aerosol inhaler 2 puff inhalation .Q4-6H PRN (Reason: shortness of breath or wheezing) Qty: 8.5 0RF Discharge Orders: Discharge Order (Routine); Ordered 06/04/24 Ordered By: Hetal Álvarez/Other Patient Handouts: Discharge Instructions for Asthma Admission Data Admit Date/Time: 06/02/24 20:39 Attending Provider: Crescencio Liu Admit Provider: Hetal Baumann Primary Care Provider: Niles Tam Other Providers: Hetal Baumann Other Interventions: Discharge Summary Assessment (RN) Last Done: 06/04/24 15:21 Hospital Stay Data Consultations 06/02/24 19:17 ED Decision to Admit Stat Pending Results Patient Have Any Pending Studies at Discharge: No Discharge Instructions Given to Patient (Per Discharging Provider) Leisa, You were admitted to the hospital due to an asthma exacerbation. You were treated with IV steroids and breathing treatments while in the hospital. You will continue taking an oral steroid taper at home. Upon discharge from the hospital: * Take steroid taper as directed: Take 4 mg (2 pills) x 4 days, then take 2 mg (1 pill) x 4 days * Use your albuterol inhaler as needed for shortness of breath or wheezing. Use 2 puffs every 4-6 hours as needed. * Monitor your blood sugar at home and let your PCP know if your blood sugar readings are consistently >200. * Follow-up with your PCP in 1 week. * Continue other home medications as prescribed. Please return to the hospital if you experience any of the following: * Severe wheezing, Shortness of breath that does not get better with quick- relief medicine * Trouble walking or talking because of shortness of breath, Coughing that does not improve with quick-relief medicine * Chest tightness that does not improve with quick-relief medicine * Blue, reid, or purple lips or fingernails * Peak flow meter readings less than 50% of your personal best that don't get better after using your quick-relief medicine (if you use a peak flow meter) It was a pleasure taking care of you while you were in the hospital, Hetal Fuentes PA-C Total Time Total Time Spent Total Time Spent (In Minutes): Greater than 30 minutes spent completing this discharge process including direct patient care, medication reconciliation, documentation, review of labs and images, and coordination of care. 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
== END 2024-06-04 17:23 | disposition home or self-care (01) ==
LOC: ED 15:19 → EDINP 15:19 → SUATTDRO 20:39 → 3E 21:14
DX: Z88.8 Allergy status to other drugs, medicaments and biological substances; E66.01 Morbid (severe) obesity due to excess calories; J45.901 Unspecified asthma with (acute) exacerbation; R07.89 Other chest pain; Z88.0 Allergy status to penicillin; E03.9 Hypothyroidism, unspecified; Z20.822 Contact with and (suspected) exposure to COVID-19; Z68.36 Body mass index [BMI] 36.0-36.9, adult; Z88.1 Allergy status to other antibiotic agents; R16.2 Hepatomegaly with splenomegaly, not elsewhere classified; Z79.899 Other long term (current) drug therapy; E11.9 Type 2 diabetes mellitus without complications; E78.5 Hyperlipidemia, unspecified; R94.31 Abnormal electrocardiogram [ECG] [EKG]; F25.1 Schizoaffective disorder, depressive type; Z79.85 Long-term (current) use of injectable non-insulin antidiabetic drugs; N20.0 Calculus of kidney; I10 Essential (primary) hypertension; Z88.6 Allergy status to analgesic agent

== ENCOUNTER 2024-06-11 09:07 | Observation (INO) ==
--- NOTE | 2024-06-11 09:27 | Emergency Department Note ---
Impression & Plan Abscess, dental, Cellulitis of face ED Provider Note NAME: HOWIE HSU AGE: 53 SEX: F : 1970 ARRIVES VIA: Ambulance INFORMANT: Patient, ED PROVIDER(S): Niles Doyle DO CHIEF COMPLAINT: Dental pain HPI: The patient is a 53-year-old female who presented to the emergency department for an evaluation of dental pain. The patient describes right sided facial swelling. She had a dental procedure/root canal done recently. She was seen by her dentist this week and started on antibiotics. Swelling continues to the patient was sent to the emergency department for further evaluation. She does have significant pain. She denies having any chest pain or difficulty breathing. ROS: See above HPI for pertinent positives & negatives. A total of 10 systems reviewed and were otherwise negative. PAST MEDICAL HISTORY: See Below PAST SURGICAL HISTORY: See Below FAMILY HISTORY: See Below SOCIAL HISTORY: See Below HOME MEDICATIONS: See Below ALLERGIES: See Below VITALS: See Below PHYSICAL EXAMINATION: GENERAL: Patient is awake alert in no acute distress patient is resting comfortably and showing no signs of anxiety EYES: The conjunctivae are clear. The pupils are round and reactive. EARS, NOSE, MOUTH AND THROAT: The nose is without any evidence of any deformity. Mucous membranes are moist. There is significant buccal swelling on the right. There is trismus. There is also submandibular swelling. Dentition appears intact. The tooth in question does not appear to be loose. NECK: The neck is nontender and supple. RESPIRATORY: Normal respiratory effort is noted there is no evidence of wheezing rhonchi or rales CARDIOVASCULAR: Regular rate and rhythm noted there no murmurs rubs or gallops normal S1 normal S2. GASTROINTESTINAL: The abdomen is soft. Abdomen is nontender. MUSCULOSKELETAL/EXTREMITIES: There is no evidence of gross deformity full range of motion is noted in the hips and shoulders. SKIN: There is no obvious evidence of any rash. There are no petechiae, pallor or cyanosis noted. NEUROLOGIC: Patient is awake alert and oriented x3 MEDICAL DECISION MAKING: The patient is a 53-year-old female who presented to the emergency department for an evaluation of right facial swelling. The patient has a history of recent dental work. The patient started having swelling and was placed on an outpatient antibiotic. The patient did not respond well to the antibiotic and continues to have facial swelling. I discussed the patient's laboratory and radiographic studies with her. The patient was started on IV antibiotics in the emergency department. I discussed her condition with the on-call [facility] hospitalist as well as the on-call oral maxillofacial surgeon. The patient would likely require surgical intervention. Triage Nursing notes reviewed. Prior medical records reviewed Vital Signs: reviewed and remarkable for no significant abnormalities Differential diagnosis: Dental caries, dental abscess, Ludwigs angina, Vincent angina, dental fracture, facial cellulitis, parotitis, osteomyelitis, sinus infection, peritonsillar abscess. ER treatment provided: See below Diagnostics interpreted by me: ECG: none Cardiac Monitoring: An order was placed for continuous cardiac monitoring. The monitor shows a rate of 93 bpm with sinus rhythm. Laboratory studies: As stated above and show below. Imaging studies: See below. Radiographic imaging was reviewed by myself Consultation(s): I discussed this case with Dr. Bridges who is on-call for oral maxillofacial. I discussed this case with Dr. Ya [facility] Past Med/Surg History Problem List (Updated 06/11/24 @ 10:42 by Niles Doyle DO) Cellulitis of face (Acute) Abscess, dental (Acute) Asthma exacerbation Shortness of breath (Acute) Complicated UTI (urinary tract infection) S/P ureteral stent placement Lightheadedness (Acute) Acute hyponatremia (Acute) Auditory hallucinations (Acute) 12/15/23 Facial cellulitis 09/29/23 Bladder pain 01/01/23 Nephrolithiasis Right flank pain 12/05/22 Nocturnal enuresis Urinary incontinence Symptoms of urinary tract infection 11/22/22 Acute hyponatremia 12/25/21 Rash and nonspecific skin eruption 03/07/21 Diarrhea 03/16/20 Obesity Hypomagnesemia 01/01/20 Hepatosplenomegaly Fatty liver Personality disorder Vitamin D deficiency (Acute) Vitamin B12 deficiency (Acute) Tremor (Acute) Seborrheic keratosis (Acute) Iron deficiency anemia (Acute) Hemorrhoids (Acute) Gastro-esophageal reflux (Acute) Eczema (Acute) Chronic sinusitis (Acute) 12/14/18 Anxiety IBS (irritable bowel syndrome) Type 2 diabetes mellitus (Chronic) Hypothyroidism (Chronic) Hypertension (Chronic) Dyslipidemia (Chronic) Asthma (Chronic) Schizoaffective disorder, depressive type (Chronic 01/11/11) Medical History Intentional overdose hx - Denies SI at this time Hemorrhoids Hx: UTI (urinary tract infection) multiple PONV (postoperative nausea and vomiting) "With a really bad headache" History of COVID-19 "A month ago" no hospitalization 02/03/24 - denies issues at this time Personality disorder Schizoaffective disorder, depressive type Type 2 diabetes mellitus Tremor Nephrolithiasis Anemia IBS (irritable bowel syndrome) Hypothyroidism Hepatosplenomegaly pt unsure HTN (hypertension) GERD (gastroesophageal reflux disease) Pt unsure History of abscessed tooth 09/2023 [facility] ER Diarrhea Chronic - imodium Auditory hallucinations denies issues at this time Asthma Anxiety agoraphobia per PAT RN call Suicidal ideations Denies SI at this time Suicidal ideation Denies SI at this time Hypoxemia pt denies Influenza (2018) hx Bacterial pneumonia (01/11/11) pt denies Surgical History Hx of colonoscopy H/O wisdom tooth extraction History of thyroid surgery pt denies H/O: hysterectomy Family History Mother Breast cancer Hypertension Stroke Unknown Hypertension Father Hypertension Heart disease Cancer Grandfather Heart disease Stroke Brother Myocardial infarction Grandmother (Maternal) Colon cancer Grandmother Stroke Denies family history of Ovarian cancer Prostate cancer Social History Smoking Status: Never smoker Tobacco Type: Cigarettes Second Hand Exposure: No; Do You Dip or Chew Tobacco: No; Hx Alcohol Use: No Hx Substance Use: No Preferred Language: German Communication Ability: Effective Visual Impairment: No Limitations Hearing Ability: Normal Clearance Center Manager Required: No Beliefs That Will Affect Care: None marital status: Single Current Living Situation: Alone current occupational status: disabled How many Children do You have: 0 Feels Safe at Home: Yes Childhood Exposure to Second-Hand Smoke: No Physical Activity Frequency: Daily Seatbelt Use: always Sunscreen Use: No Gender Identity: Female Assistive Devices: Walker Allergies Allergies Allergy/AdvReac Type Severity Reaction Status Date / Time doxycycline AdvReac Severe Hearing Verified 06/11/24 11:22 Voices/Depression prednisone AdvReac Severe hallucinati Verified 06/11/24 11:22 ons aspirin AdvReac Intermediate Vomiting Verified 06/11/24 11:22 chlorpromazine AdvReac Intermediate Lightheaded/Shuffling Verified 06/11/24 11:22 Gait Penicillins AdvReac Intermediate Rash/Nausea Verified 06/11/24 11:22 /Vomiting cefdinir AdvReac Mild "it did Verified 06/11/24 11:22 not work" see comment below... levofloxacin AdvReac Unknown Unknown Verified 06/11/24 11:22 NSAIDS (Non-Steroidal AdvReac Unknown Unknown Verified 06/11/24 11:22 Anti-Inflamma quinine AdvReac Unknown Unknown Verified 06/11/24 11:22 theophylline [From Matias-Dur] AdvReac Unknown Unknown Verified 06/11/24 11:22 Home Meds Home Medications Medication Instructions Recorded Confirmed buspirone 10 mg tablet 20 mg PO TID 01/22/19 04/14/24 clonazepam 0.5 mg tablet (Klonopin) 0.5 mg PO TID anxiety 11/14/21 04/14/24 clozapine 50 mg tablet 100 mg PO QDL 12/25/21 04/14/24 venlafaxine 150 mg 300 mg PO QAM 12/25/21 04/14/24 capsule,extended release 24 hr (Effexor XR) clozapine 100 mg tablet (Clozaril) 400 mg PO HS 11/22/22 04/14/24 cyanocobalamin (vitamin B-12) 2,000 mcg PO QAM 01/15/23 04/14/24 1,000 mcg capsule Jyoti Quercetin Phytosome 1 tab PO DAILY 03/01/24 04/14/24 acetaminophen 500 mg tablet 1,000 mg PO QID PRN Pain 03/01/24 04/14/24 cranberry fruit concentrate 250 mg 500 mg PO DAILY 03/01/24 04/14/24 chewable tablet (Azo Cranberry) estradiol 1 mg tablet (Estrace) 1 mg PO QAM 03/01/24 04/14/24 folic acid 400 mcg tablet 400 mcg PO QAM 03/01/24 04/14/24 loperamide 2 mg tablet (Imodium 2 mg PO DAILY PRN Diarrhea 03/01/24 04/14/24 A-D) lurasidone 80 mg tablet (Latuda) 80 mg PO QPM 03/01/24 04/14/24 magnesium oxide 400 mg (241.3 mg 400 mg PO QAM 03/01/24 04/14/24 magnesium) tablet montelukast 10 mg tablet 10 mg PO HS 03/01/24 04/14/24 (Singulair) trazodone 150 mg tablet 150 mg PO HS 03/01/24 04/14/24 vibegron 75 mg tablet (Gemtesa) 75 mg PO HS 03/01/24 04/14/24 Previous Rx's Medication Instructions Recorded lancing device with lancets kit #1 ea 11/20/22 (OneTouch Delica Plus Lancing Device kit) cholecalciferol (vitamin D3) 25 25 mcg PO QAM #90 caps 05/14/23 mcg (1,000 unit) capsule (Vitamin D3) ferrous sulfate 325 mg (65 mg 325 mg PO QAM #90 tabs 05/14/23 iron) tablet,delayed release levothyroxine 125 mcg tablet 125 mcg PO QAM #90 tabs 05/14/23 (Synthroid) losartan 50 mg tablet (Cozaar) 50 mg PO QAM #90 tabs 05/14/23 blood sugar diagnostic (OneTouch #100 ea 07/14/23 Ultra Test strips) lancets 30 gauge (OneTouch Delica #100 ea 07/14/23 Plus Lancet) metformin 500 mg tablet 1,000 mg (2 x 500 mg) PO BID #360 07/14/23 tabs ergocalciferol (vitamin D2) 1,250 50,000 unit PO MONTHLY #12 caps 07/28/23 mcg (50,000 unit) capsule (Vitamin D2) haloperidol 1 mg tablet 3 mg (3 x 1 mg) PO BID PRN 12/24/23 hallucinations 30 days #90 tabs lamotrigine 100 mg tablet 200 mg (2 x 100 mg) PO HS #0 tabs 12/24/23 (Lamictal) cefdinir 300 mg capsule 300 mg PO BID #7 caps 03/14/24 nystatin 100,000 unit/gram topical 1 applic topical BID #15 grams 03/25/24 cream mirabegron 50 mg tablet,extended 50 mg PO DAILY #30 tabs 04/21/24 release 24 hr (Myrbetriq) atorvastatin 40 mg tablet 40 mg PO HS 90 days #90 tabs 05/14/24 albuterol sulfate 90 mcg/actuation 2 puff inhalation .Q4-6H PRN 06/04/24 aerosol inhaler shortness of breath or wheezing #8.5 grams dexamethasone 2 mg tablet 2 mg PO UD #24 tabs 06/04/24 semaglutide 1 mg/dose (4 mg/3 mL) 1 mg (0.75 mL) subcut Q7D #3 mL 06/11/24 subcutaneous pen injector (Ozempic) Results & Data (ED) Vital Signs Vital Signs - 24 hr 06/11/24 09:00 06/11/24 11:09 Temperature 37 C Temperature Source Oral Pulse Rate 107 H Pulse Rate [Apical] 93 H Respiratory Rate 20 18 Blood Pressure 103/66 Blood Pressure [Left Arm] 124/77 Blood Pressure Mean 78 Blood Pressure Mean [Left Arm] 92 Pulse Oximetry 92 97 Oxygen Delivery Method Room Air Sepsis Recent Fever Within 48 Hours No Sepsis New/Unexplained Change in Mental Status No Sepsis Action Taken by Nursing No Action Required Home Medications Current Medication List: was personally reviewed by me Laboratory Data Attestation: I reviewed the patient's lab results. 06/11/24 09:30 06/11/24 09:30 Lab Results 06/11/24 06/11/24 Range/Units 09:30 09:39 WBC 10.75 (4.8-10.8) K/ul RBC 4.29 (4.20-5.40) M/uL Hgb 11.5 L (12.0-16.0) g/dl POC Hgb 11.9 L (12.0-16.0) g/dl Hct 36.1 L (37.0-47.0) % POC Hct 35 L (37-47) % MCV 84.1 (80.0-100.0) fL MCH 26.8 (25.0-34.0) pg MCHC 31.9 L (32.0-36.0) g/dL RDW Std Deviation 42.8 (36.4-46.3) fL RDW Coeff of Bret 14.0 (11.5-14.5) % Plt Count 248 (130-400) K/uL MPV 9.3 L (9.4-12.4) fL Immature Gran % (Auto) 0.5 % Neut % (Auto) 76.1 % Lymph % (Auto) 13.5 % Island % (Auto) 9.9 % Eos % (Auto) 0.0 % Baso % (Auto) 0.0 % Neut # (Auto) 8.19 H (1.40-6.50) K/uL Lymph # (Auto) 1.45 (1.20-3.40) K/uL Island # (Auto) 1.06 H (0.11-0.59) K/uL Eos # (Auto) 0.00 (0.00-0.50) K/uL Baso # (Auto) 0.00 (0.00-0.20) K/uL Immature Gran # (Auto) 0.05 (0.01-0.20) K/uL POC Sodium 138 (135-144) mmol/L Sodium 138 (136-145) mmol/L POC Potassium 3.8 (3.3-5.0) mmol/L Potassium 3.8 (3.5-5.1) mmol/L POC Chloride 98 L (101-112) mmol/L Chloride 100 (98-107) mmol/L Carbon Dioxide 29 (21-32) mmol/L POC Total CO2 25 (24-31) mmol/L Anion Gap 9 (3-11) POC Anion Gap 19.0 (16-25) mmol/L POC BUN 11 (7-18) mg/dl BUN 12 (6-23) mg/dl Creatinine 0.90 (0.6-1.2) mg/dl POC Creatinine 1.0 (0.6-1.3) mg/dl Est Cr Clr Drug Dosing 81.9 ml/min eGFR 75.50 BUN/Creatinine Ratio 13.3 (10-20) Glucose 111 H (70-99(Fasting)) mg/dl POC Glucose (other) 111 H (70-99) mg/dl Calcium 9.2 (8.6-10.3) mg/dl POC Ioniz Calcium Jamaal 1.09 L (1.12-1.32) mmol/l Total Bilirubin 0.6 (0.2-1.0) mg/dl AST 11 L (13-39) U/L ALT 12 (7-52) U/L Alkaline Phosphatase 78 (34-104) U/L C-Reactive Protein 17.19 H (0-0.5) mg/dl Total Protein 6.8 (6.0-8.3) gm/dl Albumin 4.2 (3.4-5.0) gm/dl Globulin 2.6 (2.5-4.0) gm/dl Albumin/Globulin Ratio 1.6 (0.9-2) Procalcitonin 0.04 (0-0.5) ng/ml Administered Medications Discontinued Medications Clindamycin Phosphate (Cleocin/D5w) 600 mg in 50 mls @ 100 mls/hr IV NOW ONE Stop: 06/11/24 09:49 Last Admin: 06/11/24 10:06 Dose: 100 mls/hr Documented By: BRIE Imaging Data Attestation: I personally reviewed and interpreted this imaging study as follows: My Impression: CT soft tissue was obtained in the emergency department. My interpretation is significant right sided facial swelling, final report below. Radiologist's Impression: Soft Tissue Neck CT 06/11/24 09:17 CT soft tissue neck w con CLINICAL HISTORY: dental infection TECHNIQUE: Axial CT images of the neck after 90 cc Optiray IV. Sagittal and coronal reformats were obtained. DLP is 572. COMPARISON STUDY: 09/29/2023 FINDINGS: There is spray artifact from metallic dental hardware. Thyroid gland, submandibular glands, and parotid glands are unremarkable. There is swallowing artifact. Otherwise the visualized upper airway is patent. There is prominence and stranding of the right facial soft tissues consistent with cellulitis or edema. There is lucency adjacent to the roots of the posterior right upper molar consistent with apical dental abscess. No gross breakthrough into the maxillary sinus seen. There is a 1 cm oval lucency in the adjacent soft tissues consistent with tiny soft tissue abscess. There is mucosal thickening and small amount of fluid at the adjacent right maxillary sinus. No enlarged adenopathy seen. There are mild cervical spine degenerative changes. IMPRESSION: 1. Posterior right upper molar apical dental abscess. 2. Adjacent 1 cm soft tissue abscess. 3. Otherwise as described. ACT 112: Negative or not required by law. Electronically signed by: Daniel Stauffer M.D. 06/11/2024 10:20 AM Chest X-Ray 06/11/24 09:18 XR chest 1V portable HISTORY: 53 years-old Female Fever COMPARISON: 06/02/2024 TECHNIQUE: AP view of the chest FINDINGS: Cardiomediastinal and hilar silhouettes are within normal limits. No pneumothorax, pleural effusion, airspace consolidation or pulmonary edema. Bones appear grossly intact. Mild right-sided rotator cuff calcific tendinosis. IMPRESSION: No acute process. ACT 112: Negative or not required by law. The above report was generated using voice recognition software. It may contain grammatical, syntax or spelling errors. Electronically signed by: Omid Menjivar M.D. 06/11/2024 10:16 AM Discharge Plan Visit Data Chief Complaint: Dental/Oral Stated Complaint: ORAL INFECTION ED Provider: Niles Doyle Discharge Problem: Abscess, dental, Cellulitis of face Patient Disposition: Being Evaluated by Hospitalist Forms Stand Alone Forms: My [facility] Prescriptions Prescriptions: No Action buspirone 10 mg tablet 20 mg PO TID (DME) lancing device with lancets [OneTouch Delica Plus Lanc Dev] Kit See Rx Instructions .Route Qty: 1 0RF Rx Instructions: test once a day losartan [Cozaar] 50 mg tablet 50 mg PO QAM Qty: 90 3RF Rx Instructions: take in morning levothyroxine [Synthroid] 125 mcg tablet 125 mcg PO QAM Qty: 90 3RF ferrous sulfate 325 mg (65 mg iron) tablet,delayed release (DR/EC) 325 mg PO QAM Qty: 90 3RF cholecalciferol (vitamin D3) [Vitamin D3] 25 mcg (1,000 unit) capsule 25 mcg PO QAM Qty: 90 3RF (DME) lancets [OneTouch Delica Plus Lancet] 30 gauge misc See Rx Instructions .Route Qty: 100 3RF Rx Instructions: test QD and as needed metformin 500 mg tablet 1,000 mg PO BID Qty: 360 3RF (DME) OneTouch Ultra Test Strip See Rx Instructions .Route Qty: 100 3RF Rx Instructions: Test blood sugars daily. E11.9 ergocalciferol (vitamin D2) [Vitamin D2] 1,250 mcg (50,000 unit) capsule 50,000 unit PO MONTHLY Qty: 12 0RF Rx Instructions: TAKE ON 1ST DAY OF MONTH nystatin 100,000 unit/gram cream 1 applic topical BID Qty: 15 2RF mirabegron [Myrbetriq] 50 mg tablet extended release 24 hr 50 mg PO DAILY Qty: 30 11RF atorvastatin 40 mg tablet 40 mg PO HS 90 Days Qty: 90 3RF Rx Instructions: at bedtime Ozempic 1 mg/dose (4 mg/3 mL) pen injector 1 mg subcut Q7D Qty: 3 5RF Rx Instructions: Friday venlafaxine [Effexor XR] 150 mg capsule,extended release 24hr 300 mg PO QAM clozapine 50 mg tablet 100 mg PO QDL Rx Instructions: Take at noon clonazepam [Klonopin] 0.5 mg tablet 0.5 mg PO TID cyanocobalamin (vitamin B-12) 1,000 mcg capsule 2,000 mcg PO QAM clozapine [Clozaril] 100 mg tablet 400 mg PO HS lamotrigine [Lamictal] 100 mg tablet 200 mg PO HS Qty: 0 0RF haloperidol 1 mg tablet 3 mg PO BID PRN (Reason: hallucinations) 30 Days Qty: 90 1RF loperamide [Imodium A-D] 2 mg Tablet 2 mg PO DAILY PRN (Reason: Diarrhea) folic acid 400 mcg tablet 400 mcg PO QAM acetaminophen 500 mg Tablet 1,000 mg PO QID PRN (Reason: Pain) trazodone 150 mg tablet 150 mg PO HS lurasidone [Latuda] 80 mg tablet 80 mg PO QPM Azo Cranberry 250 mg Tablet,Chewable 500 mg PO DAILY Gemtesa 75 mg tablet 75 mg PO HS Jyoti Quercetin Phytosome 1 tab PO DAILY magnesium oxide 400 mg (241.3 mg magnesium) tablet 400 mg PO QAM estradiol [Estrace] 1 mg tablet 1 mg PO QAM montelukast [Singulair] 10 mg tablet 10 mg PO HS cefdinir 300 mg capsule 300 mg PO BID Qty: 7 0RF albuterol sulfate 90 mcg/actuation HFA aerosol inhaler 2 puff inhalation .Q4-6H PRN (Reason: shortness of breath or wheezing) Qty: 8.5 0RF dexamethasone 2 mg tablet 2 mg PO UD Qty: 24 0RF Rx Instructions: Take 4 mg (2 pills) x 4 days, then take 2 mg (1 pill) x 4 days Referrals Referrals: PCP,NO [Physician] -
[2024-06-11 10:00] LABS: iSTAT Hemoglobin 11.9 g/dl (12.0-16.0); iSTAT Ionized Calcium 1.09 mmol/l (1.12-1.32); iSTAT Potassium 3.8 mmol/L (3.3-5.0)
[2024-06-11 10:03] LABS: Hematocrit (blood only) 36.1 % (37.0-47.0); Hemoglobin 11.5 g/dl (12.0-16.0); Immature Granulocytes # (auto) 0.05 K/uL (0.01-0.20); Immature Granulocytes % (auto) 0.5 %; Lymphocytes # (auto) 1.45 K/uL (1.20-3.40); Lymphocytes % (auto) 13.5 %; Mean Corpuscular Hemoglobin 26.8 pg (25.0-34.0); Mean Corpuscular Hgb Conc 31.9 g/dL (32.0-36.0); Mean Corpuscular Volume 84.1 fL (80.0-100.0); Mean Platelet Volume 9.3 fL (9.4-12.4); Monocytes # (auto) 1.06 K/uL (0.11-0.59); Monocytes % (auto) 9.9 %; Neutrophils # (auto) 8.19 K/uL (1.40-6.50); Neutrophils % (auto) 76.1 %; Platelet Count 248 K/uL (130-400); RDW Standard Deviation 42.8 fL (36.4-46.3); Red Blood Count 4.29 M/uL (4.20-5.40); White Blood Count 10.75 K/ul (4.8-10.8)
[2024-06-11] MEDS: CLINDAMYCIN/D5W 600 MG/50 ML BAG IV ONE (10:06)
--- NOTE | 2024-06-11 10:19 | XRay Report ---
XR chest 1V portable HISTORY: 53 years-old Female Fever COMPARISON: 06/02/2024 TECHNIQUE: AP view of the chest FINDINGS: Cardiomediastinal and hilar silhouettes are within normal limits. No pneumothorax, pleural effusion, airspace consolidation or pulmonary edema. Bones appear grossly intact. Mild right-sided rotator cuff calcific tendinosis. IMPRESSION: No acute process. ACT 112: Negative or not required by law. The above report was generated using voice recognition software. It may contain grammatical, syntax o r spelling errors. Electronically signed by: Omid Menjivar M.D. 06/11/2024 10:16 AM
--- NOTE | 2024-06-11 10:22 | CT Scan Report ---
CT soft tissue neck w con CLINICAL HISTORY: dental infection TECHNIQUE: Axial CT images of the neck after 90 cc Optiray IV. Sagittal and coronal reformats were ob tained. DLP is 572. COMPARISON STUDY: 09/29/2023 FINDINGS: There is spray artifact from metallic dental hardware. Thyroid gland, submandibular glands, and parotid glands are unremarkable. There is swallowing artifact. Otherwise the visualized upper ai rway is patent. There is prominence and stranding of the right facial soft tissues consistent with cellulitis or jr a. There is lucency adjacent to the roots of the posterior right upper molar consistent with apical d ental abscess. No gross breakthrough into the maxillary sinus seen. There is a 1 cm oval lucency in t he adjacent soft tissues consistent with tiny soft tissue abscess. There is mucosal thickening and sm all amount of fluid at the adjacent right maxillary sinus. No enlarged adenopathy seen. There are mild cervical spine degenerative changes. IMPRESSION: 1. Posterior right upper molar apical dental abscess. 2. Adjacent 1 cm soft tissue abscess. 3. Otherwise as described. ACT 112: Negative or not required by law. Electronically signed by: Daniel Stauffer M.D. 06/11/2024 10:20 AM
[2024-06-11 10:38] LABS: Albumin Globulin Ratio 1.6 (0.9-2); Albumin Level 4.2 gm/dl (3.4-5.0); BUN Creatinine Ratio 13.3 (10-20); Bilirubin,Total 0.6 mg/dl (0.2-1.0); C Reactive Protein 17.19 mg/dl (0-0.5); Calcium 9.2 mg/dl (8.6-10.3); Creatinine Clr Calc Pharmacy 81.9 ml/min; Globulin 2.6 gm/dl (2.5-4.0); Potassium 3.8 mmol/L (3.5-5.1); Total Protein 6.8 gm/dl (6.0-8.3)
--- NOTE | 2024-06-11 10:42 | History & Physical Report ---
Date of Service June 11, 2024 Assessment & Plan (1) Abscess, dental: (2) Type 2 diabetes mellitus: (3) Schizoaffective disorder, depressive type: Plan Leisa is a 53F with a PMX of HSM, fatty liver disease, personality/schizoaffective disorder, iron deficiency anemia, GERD, IBS, anxiety, hypothyroidism, HTN, HLD, and asthma. She had a root canal had follow up on Friday06/09/24 with concerns for post operative infection and started on PO Keflex. Presented to the ED with worsening pain and swelling. #Dental Abscess CT scan showing posterior right upper molar apical dental abscess with adjacent 1cm soft tissue abscess. No Leukocytosis, CRP mildly elevated. ED contact Dr. Bridges - who will evaluate the pt today, possible OR, Keep NPO Continue Clindamycin based on pt allergies AM CBC, CRP and CRP #DM Hold home Metformin/Ozempic. Last A1c 5.2 04/2024 BSG ACHS, SSI. No basal insulin at this time - monitor BSG. Mental health/schizophrenia - continue buspar, clonazepam, clozapine, haldol prn, lamictal, latuda, trazodone and Effexor hypothyroid - continue synthroid HTN - continue losartan OAB - continue Myrbetriq or formulary equivalent HLD - continue statin Dispo: admit to med/tele, Dr. Bridges to eval today DVT proh: chemical held with possible OR, encourage ambulation, SCDs History of Present Illness Chief Complaint: tooth pain Primary Care Provider: Niles Tam MD Leisa is a 53F with a PMX of HSM, fatty liver disease, personality/ schizoaffective disorder, iron deficiency anemia, GERD, IBS, anxiety, hypothyroidism, HTN, HLD, asthma who presents with her aide to the ED via EMS for worsening tooth pain. Had a recent root canal (unsure of dentist name) had follow up on Friday06/09/24 with concerns for post operative infection. She was started on Keflex, which she has been taking and presented today with worsening pain and swelling. Reports mild subjective fevers and chills at home. No temperature measurements. Has been taking tylenol 450mg Q6 hours for pain. She denies associated symptoms including CP, SOB, N/v/d. Recent admission for asthma exacerbation which she reports has resolved. She took her medications this morning. She wishes to be a full code. ED Course Clindamycin 600mg IV x1 Allergies Allergy/AdvReac Type Severity Reaction Status Date / Time onion Allergy Unknown Unknown Unverified 06/11/24 11:29 doxycycline AdvReac Severe Hearing Verified 06/11/24 11:29 Voices/Depression prednisone AdvReac Severe hallucinati Verified 06/11/24 11:29 ons aspirin AdvReac Intermediate Vomiting Verified 06/11/24 11:29 chlorpromazine AdvReac Intermediate Lightheaded/Shuffling Verified 06/11/24 11:29 Gait Penicillins AdvReac Intermediate Rash/Nausea Verified 06/11/24 11:29 /Vomiting cefdinir AdvReac Mild "it did Verified 06/11/24 11:29 not work" see comment below... levofloxacin AdvReac Unknown Unknown Verified 06/11/24 11:29 NSAIDS (Non-Steroidal AdvReac Unknown Unknown Verified 06/11/24 11:29 Anti-Inflamma quinine AdvReac Unknown Unknown Verified 06/11/24 11:29 theophylline [From Matias-Dur] AdvReac Unknown Unknown Verified 06/11/24 11:29 Home Medications Medication Instructions Recorded Confirmed Type buspirone 10 mg tablet 20 mg PO TID 01/22/19 06/11/24 History clonazepam 0.5 mg tablet (Klonopin) 0.5 mg PO TID anxiety 11/14/21 06/11/24 History clozapine 50 mg tablet 200 mg PO QDL 12/25/21 06/11/24 History venlafaxine 150 mg 300 mg PO QAM 12/25/21 06/11/24 History capsule,extended release 24 hr (Effexor XR) lancing device with lancets kit #1 ea 11/20/22 04/14/24 Rx (OneTouch Delica Plus Lancing Device kit) clozapine 100 mg tablet (Clozaril) 300 mg PO HS 11/22/22 06/11/24 History cyanocobalamin (vitamin B-12) 2,000 mcg PO QAM 01/15/23 06/11/24 History 1,000 mcg capsule cholecalciferol (vitamin D3) 25 25 mcg PO QAM #90 caps 05/14/23 06/11/24 Rx mcg (1,000 unit) capsule (Vitamin D3) ferrous sulfate 325 mg (65 mg 325 mg PO QAM #90 tabs 05/14/23 06/11/24 Rx iron) tablet,delayed release levothyroxine 125 mcg tablet 125 mcg PO QAM #90 tabs 05/14/23 06/11/24 Rx (Synthroid) losartan 50 mg tablet (Cozaar) 50 mg PO QAM #90 tabs 05/14/23 06/11/24 Rx blood sugar diagnostic (OneTouch #100 ea 07/14/23 04/14/24 Rx Ultra Test strips) lancets 30 gauge (OneTouch Delica #100 ea 07/14/23 04/14/24 Rx Plus Lancet) metformin 500 mg tablet 1,000 mg (2 x 500 mg) PO BID #360 07/14/23 06/11/24 Rx tabs ergocalciferol (vitamin D2) 1,250 50,000 unit PO MONTHLY #12 caps 07/28/23 06/11/24 Rx mcg (50,000 unit) capsule (Vitamin D2) haloperidol 1 mg tablet 3 mg (3 x 1 mg) PO BID PRN 12/24/23 06/11/24 Rx hallucinations 30 days #90 tabs lamotrigine 100 mg tablet 200 mg (2 x 100 mg) PO HS #0 tabs 12/24/23 06/11/24 Rx (Lamictal) Jyoti Quercetin Phytosome 1 tab PO DAILY 03/01/24 06/11/24 History acetaminophen 500 mg tablet 1,000 mg PO QID PRN Pain 03/01/24 06/11/24 History cranberry fruit concentrate 250 mg 500 mg PO DAILY 03/01/24 06/11/24 History chewable tablet (Azo Cranberry) estradiol 1 mg tablet (Estrace) 1 mg PO QAM 03/01/24 06/11/24 History folic acid 400 mcg tablet 400 mcg PO QAM 03/01/24 06/11/24 History loperamide 2 mg tablet (Imodium 2 mg PO DAILY PRN Diarrhea 03/01/24 06/11/24 History A-D) lurasidone 80 mg tablet (Latuda) 80 mg PO QPM 03/01/24 06/11/24 History magnesium oxide 400 mg (241.3 mg 400 mg PO QAM 03/01/24 06/11/24 History magnesium) tablet montelukast 10 mg tablet 10 mg PO HS 03/01/24 06/11/24 History (Singulair) trazodone 150 mg tablet 150 mg PO HS PRN Sleep 03/01/24 06/11/24 History nystatin 100,000 unit/gram topical 1 applic topical BID #15 grams 03/25/24 06/11/24 Rx cream mirabegron 50 mg tablet,extended 50 mg PO DAILY #30 tabs 04/21/24 06/11/24 Rx release 24 hr (Myrbetriq) atorvastatin 40 mg tablet 40 mg PO HS 90 days #90 tabs 05/14/24 06/11/24 Rx albuterol sulfate 90 mcg/actuation 2 puff inhalation UD PRN shortness 06/11/24 06/11/24 History aerosol inhaler of breath or wheezing cephalexin 500 mg capsule 500 mg PO Q6H 06/11/24 06/11/24 History semaglutide 1 mg/dose (4 mg/3 mL) 1 mg (0.75 mL) subcut Q7D #3 mL 06/11/24 06/11/24 Rx subcutaneous pen injector (Ozempic) Past Med/Surg History Problem List (Updated 06/11/24 @ 10:42 by Niles Doyle DO) Cellulitis of face (Acute) Abscess, dental (Acute) Asthma exacerbation Shortness of breath (Acute) Complicated UTI (urinary tract infection) S/P ureteral stent placement Lightheadedness (Acute) Acute hyponatremia (Acute) Auditory hallucinations (Acute) 12/15/23 Facial cellulitis 09/29/23 Bladder pain 01/01/23 Nephrolithiasis Right flank pain 12/05/22 Nocturnal enuresis Urinary incontinence Symptoms of urinary tract infection 11/22/22 Acute hyponatremia 12/25/21 Rash and nonspecific skin eruption 03/07/21 Diarrhea 03/16/20 Obesity Hypomagnesemia 01/01/20 Hepatosplenomegaly Fatty liver Personality disorder Vitamin D deficiency (Acute) Vitamin B12 deficiency (Acute) Tremor (Acute) Seborrheic keratosis (Acute) Iron deficiency anemia (Acute) Hemorrhoids (Acute) Gastro-esophageal reflux (Acute) Eczema (Acute) Chronic sinusitis (Acute) 12/14/18 Anxiety IBS (irritable bowel syndrome) Type 2 diabetes mellitus (Chronic) Hypothyroidism (Chronic) Hypertension (Chronic) Dyslipidemia (Chronic) Asthma (Chronic) Schizoaffective disorder, depressive type (Chronic 01/11/11) Medical History Intentional overdose hx - Denies SI at this time Hemorrhoids Hx: UTI (urinary tract infection) multiple PONV (postoperative nausea and vomiting) "With a really bad headache" History of COVID-19 "A month ago" no hospitalization 02/03/24 - denies issues at this time Personality disorder Schizoaffective disorder, depressive type Type 2 diabetes mellitus Tremor Nephrolithiasis Anemia IBS (irritable bowel syndrome) Hypothyroidism Hepatosplenomegaly pt unsure HTN (hypertension) GERD (gastroesophageal reflux disease) Pt unsure History of abscessed tooth 09/2023 [facility] ER Diarrhea Chronic - imodium Auditory hallucinations denies issues at this time Asthma Anxiety agoraphobia per PAT RN call Suicidal ideations Denies SI at this time Suicidal ideation Denies SI at this time Hypoxemia pt denies Influenza (2019) hx Bacterial pneumonia (01/11/11) pt denies Surgical History Hx of colonoscopy H/O wisdom tooth extraction History of thyroid surgery pt denies H/O: hysterectomy Family History Mother Breast cancer Hypertension Stroke Unknown Hypertension Father Hypertension Heart disease Cancer Grandfather Heart disease Stroke Brother Myocardial infarction Grandmother (Maternal) Colon cancer Grandmother Stroke Denies family history of Ovarian cancer Prostate cancer Social History Smoking Status: Never smoker Tobacco Type: Cigarettes Second Hand Exposure: No; Do You Dip or Chew Tobacco: No; Hx Alcohol Use: No Hx Substance Use: No Preferred Language: Tristanian Communication Ability: Effective Visual Impairment: No Limitations Hearing Ability: Normal Hydraulic Billet Maker Required: No Beliefs That Will Affect Care: None marital status: Single Current Living Situation: Alone current occupational status: disabled How many Children do You have: 0 Feels Safe at Home: Yes Childhood Exposure to Second-Hand Smoke: No Physical Activity Frequency: Daily Seatbelt Use: always Sunscreen Use: No Gender Identity: Female Assistive Devices: Walker Review of Systems Review of Systems: All systems reviewed & are unremarkable except as noted in Subjective Physical Exam Physical Exam: General: NAD, lying in bed, pleasant, aide at bedside VS as above HEENT: visible swelling to right cheek impacting eye lid. Erythema to mouth/gums. Resp: normal respiratory effort, lungs clear to auscultation CV: RRR, no murmur, Abd: normal bowel sounds, non tender, no hepatosplenomegaly Extremities: Moves all extremities, Neuro: A&O x3, Skin: intact, no lesions noted Results & Data Results & Data Vital Signs (Past 12 Hours) Vital Signs Temp Pulse Resp BP Pulse Ox O2 Del Method 06/11/24 09:00 98.6 F 107 H 20 103/66 92 Room Air Laboratory Results cbc, chemistry, crp and procal elevated Supervising Physician Co-Signing Physician Notes I have personally seen, evaluated and examined the patient. I have also personally discussed the management of the patient with the resident physician/CHAD and I agree with the exam findings documented in the history and physical examination and the documented assessment and plan unless otherwise stated below. Brief Exam: In general pleasant 53-year-old female who is alert and oriented at the time of my exam and accompanied by one of her caregivers at the time of my examination. Only complaint is her facial discomfort and mouth discomfort. HEENT: Atraumatic. She does have swelling of the right cheek and mandibular region with some erythema. She has no evidence of aspiration at this time no evidence of airway compromise whatsoever. Neck: Supple no rigidity no lymphadenopathy no stridor. Heart: Regular rate and rhythm no murmur or ectopy or rub. Lungs: Clear bilaterally. Abdomen: Protuberant soft and nontender. Extremities: Intact with no significant edema. Neurologically: Alert and oriented with no focal deficit. Assessment/plan: As discussed above. Continue clindamycin. Maxillofacial surgery consultation. Per the ER physician OR either today or tomorrow. Requested by surgery to keep patient NPO. Monitor blood glucose. Insulin sliding scale may need to be introduced once the patient's diet is advanced. PG Care Time/CCT Total # of Minutes Spent Total Time Spent with Patient: Total time spent is greater than 50% in coordination of care (as documented) at patient's floor/unit and/or counseling patient: Coding Level of Care Code 33552 INT INP/OBS CARE MIN Diagnoses Abscess, dental K04.7 Type 2 diabetes mellitus E11.9 Schizoaffective disorder, depressive type F25.1
[2024-06-11] MEDS ORDERED: traZODone HCL 50 MG TAB PO PRN (12:50)
[2024-06-11] MEDS ORDERED: DEXTROSE 50% 50 ML SYRINGE IV PRN (12:50)
[2024-06-11] MEDS ORDERED: GLUCOSE 10 TAB/TUBE PO PRN (12:50)
[2024-06-11] MEDS ORDERED: GLUCOSE 40% GEL 15 GM TUBE PO PRN (12:50)
[2024-06-11] MEDS ORDERED: haloperidoL 1 MG TAB PO PRN (12:50)
[2024-06-11] MEDS ORDERED: GLUCAGON FOR INJ 1 MG VIAL SQ PRN (12:50)
[2024-06-11] MEDS: ACETAMINOPHEN 325 MG TAB PO PRN (13:22)
[2024-06-11] MEDS: clonazePAM 0.5 MG TAB PO SCH (13:23)
[2024-06-11] MEDS: busPIRone 5 MG TAB PO SCH (13:23)
--- NOTE | 2024-06-11 16:23 | Oral/Maxillofacial Consult ---
Date of Consultation June 11, 2024 Assessment & Plan (1) Cellulitis of face: (2) Abscess, dental: History of Present Illness Attending Physician: Nomi Ya, PhD, DO History of Present Illness Oral Maxillofacial Surgery Exam Present Complaint: Developed right facial swelling associated with upper right teeth. many teeth had root canals in the past -not able to determine which tooth is the cause. Discussed with Dr Mendoza her dentist but she was not in the office abut remembers she did Rx antibiotics a few days ado for the swelling. Leisa has been on the antibiotics for a few days but the pain and swelling much worse admitted for IV antibiotics and surgical I&D upper right mucobuccal fold and cheek. May need a future tooth removed if the infection is not resolved with I&D only. Dr Mendoza will follow and develop a treatment depending on the response to the I&D Oral Exam: Finding--swelling associated with the upper right mucobuccal and right face, tender gingival tissue with deep pocket formation. Imaging: CT soft tissue neck w con CLINICAL HISTORY: dental infection FINDINGS: There is spray artifact from metallic dental hardware. Thyroid gland, submandibular glands, and parotid glands are unremarkable. There is swallowing artifact. Otherwise the visualized upper airway is patent. There is prominence and stranding of the right facial soft tissues consistent with cellulitis or edema. There is lucency adjacent to the roots of the posterior right upper molar consistent with apical dental abscess. No gross breakthrough into the maxillary sinus seen. There is a 1 cm oval lucency in the adjacent soft tissues consistent with tiny soft tissue abscess. There is mucosal thickening and small amount of fluid at the adjacent right maxillary sinus. No enlarged adenopathy seen. There are mild cervical spine degenerative changes. IMPRESSION: 1. Posterior right upper molar apical dental abscess. 2. Adjacent 1 cm soft tissue abscess. 3. Otherwise as described. was reviewed, there were no abnormal findings other then the upper right side abscess The TMJ are well positioned and no evidence of bony pathology. The sinus, supporting bone all WNL--noted congestion w/in the right sinus Soft tissue: Only pathology is the upper right facial a swelling not responding to the oral antibiotics. The floor of the mouth, tongue, hard/soft palate, posterior pharyngeal area all with in normal limits, no pathology or abnormal findings noted. Oral Care: Overall oral care is good Occlusion: Class I TMJ exam: No pop, clicking, pain, good ROM, No history of TMJ injury or dysfunction Periodontal exam: Healthy gingival tissue without evidence of periodontal pathology. Swollen upper right soft tissue from area 2-6 Head/Neck exam: Neck is supple, FROM, Able to extend and flex neck w/o difficulty, no masses, no abnormalities, no airway issues. Treatment Plan: Set up with general anesthesia in hospital due to complexity of the procedure for I&D mucobuccal fold and right cheek I reviewed the treatment plan and consent with the patient. Understanding was expressed. Time was given for questions regarding the surgery, risks and post op care. Discussed alternative to treatment--procedure as planned, Do not do surgery Risks discussed: Bleeding,Pain,swelling,infection,delayed healing, nerve injury to face, Sinus problems like fistula or infection. May need future extraction of upper right molars need dental follow up with Dr Mendoza Surgery to be set up as an urgent case tomorrow in the OR Allergies Allergy/AdvReac Type Severity Reaction Status Date / Time onion Allergy Unknown Unknown Unverified 06/11/24 11:29 doxycycline AdvReac Severe Hearing Verified 06/11/24 11:29 Voices/Depression prednisone AdvReac Severe hallucinati Verified 06/11/24 11:29 ons aspirin AdvReac Intermediate Vomiting Verified 06/11/24 11:29 chlorpromazine AdvReac Intermediate Lightheaded/Shuffling Verified 06/11/24 11:2 9 Gait Penicillins AdvReac Intermediate Rash/Nausea Verified 06/11/24 11:29 /Vomiting cefdinir AdvReac Mild "it did Verified 06/11/24 11:29 not work" see comment below... levofloxacin AdvReac Unknown Unknown Verified 06/11/24 11:29 NSAIDS (Non-Steroidal AdvReac Unknown Unknown Verified 06/11/24 11:29 Anti-Inflamma quinine AdvReac Unknown Unknown Verified 06/11/24 11:29 theophylline [From Matias-Dur] AdvReac Unknown Unknown Verified 06/11/24 11:29 Home Medications Medication Instructions Recorded Confirmed Type buspirone 10 mg tablet 20 mg PO TID 01/22/19 06/11/24 History clonazepam 0.5 mg tablet (Klonopin) 0.5 mg PO TID anxiety 11/14/21 06/11/24 History clozapine 50 mg tablet 200 mg PO QDL 12/25/21 06/11/24 History venlafaxine 150 mg 300 mg PO QAM 12/25/21 06/11/24 History capsule,extended release 24 hr (Effexor XR) lancing device with lancets kit #1 ea 11/20/22 04/14/24 Rx (OneTouch Delica Plus Lancing Device kit) clozapine 100 mg tablet (Clozaril) 300 mg PO HS 11/22/22 06/11/24 History cyanocobalamin (vitamin B-12) 2,000 mcg PO QAM 01/15/23 06/11/24 History 1,000 mcg capsule cholecalciferol (vitamin D3) 25 25 mcg PO QAM #90 caps 05/14/23 06/11/24 Rx mcg (1,000 unit) capsule (Vitamin D3) ferrous sulfate 325 mg (65 mg 325 mg PO QAM #90 tabs 05/14/23 06/11/24 Rx iron) tablet,delayed release levothyroxine 125 mcg tablet 125 mcg PO QAM #90 tabs 05/14/23 06/11/24 Rx (Synthroid) losartan 50 mg tablet (Cozaar) 50 mg PO QAM #90 tabs 05/14/23 06/11/24 [facility] 07/14/23 04/14/24 Rx Ultra Test strips) lancets 30 [facility] 07/14/23 04/14/24 Rx Plus Lancet) metformin 500 mg tablet 1,000 mg (2 x 500 mg) PO BID #360 07/14/23 06/11/24 Rx tabs ergocalciferol (vitamin D2) 1,250 50,000 unit PO MONTHLY #12 caps 07/28/23 06/11/24 Rx mcg (50,000 unit) capsule (Vitamin D2) haloperidol 1 mg tablet 3 mg (3 x 1 mg) PO BID PRN 12/24/23 06/11/24 Rx hallucinations 30 days #90 tabs lamotrigine 100 mg tablet 200 mg (2 x 100 mg) PO HS #0 tabs 12/24/23 06/11/24 Rx (Lamictal) Jyoti Quercetin Phytosome 1 tab PO DAILY 03/01/24 06/11/24 History acetaminophen 500 mg tablet 1,000 mg PO QID PRN Pain 03/01/24 06/11/24 History cranberry fruit concentrate 250 mg 500 mg PO DAILY 03/01/24 06/11/24 History chewable tablet (Azo Cranberry) estradiol 1 mg tablet (Estrace) 1 mg PO QAM 03/01/24 06/11/24 History folic acid 400 mcg tablet 400 mcg PO QAM 03/01/24 06/11/24 History loperamide 2 mg tablet (Imodium 2 mg PO DAILY PRN Diarrhea 03/01/24 06/11/24 History A-D) lurasidone 80 mg tablet (Latuda) 80 mg PO QPM 03/01/24 06/11/24 History magnesium oxide 400 mg (241.3 mg 400 mg PO QAM 03/01/24 06/11/24 History magnesium) tablet montelukast 10 mg tablet 10 mg PO HS 03/01/24 06/11/24 History (Singulair) trazodone 150 mg tablet 150 mg PO HS PRN Sleep 03/01/24 06/11/24 History nystatin 100,000 unit/gram topical 1 applic topical BID #15 grams 03/25/24 06/11/24 Rx cream mirabegron 50 mg tablet,extended 50 mg PO DAILY #30 tabs 04/21/24 06/11/24 Rx release 24 hr (Myrbetriq) atorvastatin 40 mg tablet 40 mg PO HS 90 days #90 tabs 05/14/24 06/11/24 Rx albuterol sulfate 90 mcg/actuation 2 puff inhalation UD PRN shortness 06/11/24 06/11/24 History aerosol inhaler of breath or wheezing cephalexin 500 mg capsule 500 mg PO Q6H 06/11/24 06/11/24 History semaglutide 1 mg/dose (4 mg/3 mL) 1 mg (0.75 mL) subcut Q7D #3 mL 06/11/24 06/11/24 Rx subcutaneous pen injector (Ozempic) Patient History Medical History Intentional overdose hx - Denies SI at this time Hemorrhoids Hx: UTI (urinary tract infection) multiple PONV (postoperative nausea and vomiting) "With a really bad headache" History of COVID-19 "A month ago" no hospitalization 02/03/24 - denies issues at this time Personality disorder Schizoaffective disorder, depressive type Type 2 diabetes mellitus Tremor Nephrolithiasis Anemia IBS (irritable bowel syndrome) Hypothyroidism Hepatosplenomegaly pt unsure HTN (hypertension) GERD (gastroesophageal reflux disease) Pt unsure History of abscessed tooth 09/2023 [facility] ER Diarrhea Chronic - imodium Auditory hallucinations denies issues at this time Asthma Anxiety agoraphobia per PAT RN call Suicidal ideations Denies SI at this time Suicidal ideation Denies SI at this time Hypoxemia pt denies Influenza (2018) hx Bacterial pneumonia (01/11/11) pt denies Surgical History Hx of colonoscopy H/O wisdom tooth extraction History of thyroid surgery pt denies H/O: hysterectomy Family History Mother Breast cancer Hypertension Stroke Unknown Hypertension Father Hypertension Heart disease Cancer Grandfather Heart disease Stroke Brother Myocardial infarction Grandmother (Maternal) Colon cancer Grandmother Stroke Denies family history of Ovarian cancer Prostate cancer Social History Smoking Status: Never smoker Tobacco Type: Cigarettes Second Hand Exposure: No; Do You Dip or Chew Tobacco: No; Hx Alcohol Use: No Hx Substance Use: No Preferred Language: Sinhala Communication Ability: Effective Visual Impairment: No Limitations Hearing Ability: Normal Mandolin Repair Person Required: No Beliefs That Will Affect Care: None marital status: Single Current Living Situation: Alone Current Living Situation Comment: Caregivers come daily current occupational status: disabled How many Children do You have: 0 Other Information That Helps Us Care for You: No Feels Safe at Home: Yes Safety Concerns: Feels Safe At This Time Childhood Exposure to Second-Hand Smoke: No Physical Activity Frequency: Daily Seatbelt Use: always Sunscreen Use: No Gender Identity: Female Assistive Devices: Walker Results & Data Vital Signs (Past 12 Hours) Vital Signs Temp Pulse Pulse Pulse Resp BP BP 06/11/24 15:07 37.4 C 84 16 108/73 06/11/24 12:20 36.9 C 104 H 16 107/70 06/11/24 12:00 89 18 123/74 06/11/24 11:09 93 H 18 124/77 06/11/24 09:00 37 C 107 H 20 103/66 Pulse Ox O2 Del Method 06/11/24 15:07 93 Room Air 06/11/24 12:20 94 Room Air 06/11/24 12:00 94 Room Air 06/11/24 11:09 97 06/11/24 09:00 92 Room Air PG Care Time/CCT Total # of Minutes Spent Total Time Spent with Patient: Total time spent is greater than 50% in coordination of care (as documented) at patient's floor/unit and/or counseling patient: Coding Level of Care Code 49138 IN/OBS CONSULT LVL 3,45M Diagnoses Cellulitis of face L03.211 Abscess, dental K04.7
--- NOTE | 2024-06-11 17:21 | Anesthesiology Consultation ---
Date of Service June 11, 2024 Assessment & Plan Chart Review Chart Review: Acceptable Risk for Surgery and Patient NOT seen in Pre Admission Testing Consults Requested none ASA ASA3 Proposed Anesthesia Anesthesia Type: General History Surgery Operation Date: 06/12/24 07:00 Proposed Procedures p Right Facial Incision and Drainage - Grayson Bridges, HARRY Height/Weight Height: 5 ft 4 in Weight: 100.2 kg Allergies Allergy/AdvReac Type Severity Reaction Status Date / Time onion Allergy Unknown Unknown Unverified 06/11/24 11:29 doxycycline AdvReac Severe Hearing Verified 06/11/24 11:29 Voices/Depression prednisone AdvReac Severe hallucinati Verified 06/11/24 11:29 ons aspirin AdvReac Intermediate Vomiting Verified 06/11/24 11:29 chlorpromazine AdvReac Intermediate Lightheaded/Shuffling Verified 06/11/24 11:29 Gait Penicillins AdvReac Intermediate Rash/Nausea Verified 06/11/24 11:29 /Vomiting cefdinir AdvReac Mild "it did Verified 06/11/24 11:29 not work" see comment below... levofloxacin AdvReac Unknown Unknown Verified 06/11/24 11:29 NSAIDS (Non-Steroidal AdvReac Unknown Unknown Verified 06/11/24 11:29 Anti-Inflamma quinine AdvReac Unknown Unknown Verified 06/11/24 11:29 theophylline [From [facility]] AdvReac Unknown Unknown Verified 06/11/24 11:29 Medications Home Medications Medication Instructions Recorded Confirmed Last Taken buspirone 10 mg tablet 20 mg PO TID 01/22/19 06/11/24 06/11/24 clonazepam 0.5 mg tablet (Klonopin) 0.5 mg PO TID anxiety 11/14/21 06/11/24 06/11/24 clozapine 50 mg tablet 200 mg PO QDL 12/25/21 06/11/24 06/10/24 venlafaxine 150 mg 300 mg PO QAM 12/25/21 06/11/24 06/11/24 capsule,extended release 24 hr (Effexor XR) lancing device with lancets kit #1 ea 11/20/22 04/14/24 Unknown ([employer] Delica Plus Lancing Device kit) clozapine 100 mg tablet (Clozaril) 300 mg PO HS 11/22/22 06/11/24 06/10/24 cyanocobalamin (vitamin B-12) 2,000 mcg PO QAM 01/15/23 06/11/24 06/11/24 1,000 mcg capsule cholecalciferol (vitamin D3) 25 25 mcg PO QAM #90 caps 05/14/23 06/11/24 06/11/24 mcg (1,000 unit) capsule (Vitamin D3) ferrous sulfate 325 mg (65 mg 325 mg PO QAM #90 tabs 05/14/23 06/11/24 06/11/24 iron) tablet,delayed release levothyroxine 125 mcg tablet 125 mcg PO QAM #90 tabs 05/14/23 06/11/24 06/11/24 (Synthroid) losartan 50 mg tablet (Cozaar) 50 mg PO QAM #90 tabs 05/14/23 06/11/24 06/11/24 blood sugar diagnostic (OneTouch #100 ea 07/14/23 04/14/24 Unknown Ultra Test strips) lancets 30 gauge (OneTouch Delica #100 ea 07/14/23 04/14/24 Unknown Plus Lancet) metformin 500 mg tablet 1,000 mg (2 x 500 mg) PO BID #360 07/14/23 06/11/24 06/11/24 tabs ergocalciferol (vitamin D2) 1,250 50,000 unit PO MONTHLY #12 caps 07/28/23 06/11/24 03/02/24 mcg (50,000 unit) capsule (Vitamin D2) haloperidol 1 mg tablet 3 mg (3 x 1 mg) PO BID PRN 12/24/23 06/11/24 2 Days Ago hallucinations 30 days #90 tabs ~03/07/24 lamotrigine 100 mg tablet 200 mg (2 x 100 mg) PO HS #0 tabs 12/24/23 06/11/24 06/10/24 (Lamictal) Jyoti Quercetin Phytosome 1 tab PO DAILY 03/01/24 06/11/24 06/11/24 acetaminophen 500 mg tablet 1,000 mg PO QID PRN Pain 03/01/24 06/11/24 2 Weeks Ago ~02/24/24 cranberry fruit concentrate 250 mg 500 mg PO DAILY 03/01/24 06/11/24 06/11/24 chewable tablet (Azo Cranberry) estradiol 1 mg tablet (Estrace) 1 mg PO QAM 03/01/24 06/11/24 06/11/24 folic acid 400 mcg tablet 400 mcg PO QAM 03/01/24 06/11/24 06/11/24 loperamide 2 mg tablet (Imodium 2 mg PO DAILY PRN Diarrhea 03/01/24 06/11/24 1 Week Ago A-D) ~03/02/24 lurasidone 80 mg tablet (Latuda) 80 mg PO QPM 03/01/24 06/11/24 06/10/24 magnesium oxide 400 mg (241.3 mg 400 mg PO QAM 03/01/24 06/11/24 06/11/24 magnesium) tablet montelukast 10 mg tablet 10 mg PO HS 03/01/24 06/11/24 06/10/24 (Singulair) trazodone 150 mg tablet 150 mg PO HS PRN Sleep 03/01/24 06/11/24 06/10/24 nystatin 100,000 unit/gram topical 1 applic topical BID #15 grams 03/25/24 06/11/24 06/11/24 cream mirabegron 50 mg tablet,extended 50 mg PO DAILY #30 tabs 04/21/24 06/11/24 06/11/24 release 24 hr (Myrbetriq) atorvastatin 40 mg tablet 40 mg PO HS 90 days #90 tabs 05/14/24 06/11/24 06/10/24 albuterol sulfate 90 mcg/actuation 2 puff inhalation UD PRN shortness 06/11/24 06/11/24 Unknown aerosol inhaler of breath or wheezing cephalexin 500 mg capsule 500 mg PO Q6H 06/11/24 06/11/24 06/11/24 semaglutide 1 mg/dose (4 mg/3 mL) 1 mg (0.75 mL) subcut Q7D #3 mL 06/11/24 06/11/24 06/06/24 subcutaneous pen injector (Ozempic) Active Medications Generic Name Dose Route Start Last Admin Trade Name Freq PRN Reason Stop Dose Admin Acetaminophen 650 mg 06/11/24 12:50 06/11/24 13:22 Acetaminophen 325 Mg Tab PO 07/11/24 12:49 650 mg Q4H PRN Administration pain/fever Buspirone HCl 20 mg 06/11/24 14:00 06/11/24 13:23 Buspirone 5 Mg Tab PO 07/11/24 13:59 20 mg TID JOSE Administration Clonazepam 0.5 mg 06/11/24 14:00 06/11/24 13:23 Clonazepam 0.5 Mg Tab PO 07/11/24 13:59 0.5 mg TID JOSE Administration Past Medical History Medical History Intentional overdose hx - Denies SI at this time Hemorrhoids Hx: UTI (urinary tract infection) multiple PONV (postoperative nausea and vomiting) "With a really bad headache" History of COVID-19 "A month ago" no hospitalization 02/03/24 - denies issues at this time Personality disorder Schizoaffective disorder, depressive type Type 2 diabetes mellitus Tremor Nephrolithiasis Anemia IBS (irritable bowel syndrome) Hypothyroidism Hepatosplenomegaly pt unsure HTN (hypertension) GERD (gastroesophageal reflux disease) Pt unsure History of abscessed tooth 09/2023 [facility] Diarrhea Chronic - imodium Auditory hallucinations denies issues at this time Asthma Anxiety agoraphobia per PAT RN call Suicidal ideations Denies SI at this time Suicidal ideation Denies SI at this time Hypoxemia pt denies Influenza (2018) hx Bacterial pneumonia (01/11/11) pt denies Exercise / Class Metabolic Activity II 4-5 Yardwork/Stairs/Walk up hill Past Family History Family History Mother Breast cancer Hypertension Stroke Unknown Hypertension Father Hypertension Heart disease Cancer Grandfather Heart disease Stroke Brother Myocardial infarction Grandmother (Maternal) Colon cancer Grandmother Stroke Denies family history of Ovarian cancer Prostate cancer Past Surgical History Surgical History Hx of colonoscopy H/O wisdom tooth extraction History of thyroid surgery pt denies H/O: hysterectomy Past Anesthesia History No Hx of Anesthesia Complications and No Family Hx of Anesthesia Complications History of PONV No Hx of PONV and No Hx of Motion Sickness Social History Smoking Status: Never smoker tobacco type: cigarettes Do You Dip or Chew Tobacco: No Hx Alcohol Use: No Hx Substance Use: No substance use type: does not use Physical Exam Vital Signs Last Vital Signs Temp 37.4 C 06/11/24 15:07 Pulse 84 06/11/24 15:07 Resp 16 06/11/24 15:07 BP 108/73 06/11/24 15:07 Pulse Ox 93 06/11/24 15:07 O2 Del Method Room Air 06/11/24 15:07 Testing Laboratory Results 06/11/24 09:30 06/11/24 09:30 06/11/24 06/11/24 06/11/24 16:44 12:28 09:39 POC Glucose 85 85 POC Glucose (other) 111 H Electrocardiogram Date: 06/02/24 Findings: + NSR @ (@ 91;low voltage QRS;? septal infarct,age ?) Chest X-Ray Date: 06/11/24 Findings: + NAD Echocardiogram Date: 01/26/19 EF: 55% LV Function: normal RWMA: + none Other Findings: + LVH (mild) and + diastolic dysfunction (grade 1) Valvular Disease: + no significant valvular disease
[2024-06-11] MEDS: INSULIN ASPART PER UNIT CHARGE SC SCH (17:30)
[2024-06-11] MEDS: CLINDAMYCIN/D5W 600 MG/50 ML BAG IV SCH (17:49)
[2024-06-11] MEDS: MONTELUKAST SODIUM 10 MG TABLET PO SCH (20:44)
[2024-06-11] MEDS: LURASIDONE HCL 20 MG TAB PO SCH (20:44)
[2024-06-11] MEDS: ATORVASTATIN 40 MG TAB PO SCH (20:47)
[2024-06-11] MEDS: cloZAPine 100 MG TAB PO SCH (20:47)
[2024-06-11] MEDS: lamoTRIgine 100 MG TAB PO SCH (20:47)
[2024-06-12] MEDS: LEVOTHYROXINE SODIUM 125 MCG TABLET PO SCH (00:50)
[2024-06-12] MEDS ORDERED: DEXAMETHASONE SOD INJ 4 MG/ML VIAL ONE (07:28)
[2024-06-12] MEDS ORDERED: ONDANSETRON INJ 2 MG/ML 2 ML VIAL ONE (07:28)
[2024-06-12] MEDS ORDERED: SUCCINYLCHOLINE CHLORIDE 20 MG/ML 10 ML VIAL IV ONE (07:28)
[2024-06-12] MEDS ORDERED: PROPOFOL IV EMULSION 10 MG/ML 20 ML VIAL IV ONE (07:28)
[2024-06-12] MEDS ORDERED: MIDAZOLAM HCL 1 MG/ML 2ML VIAL ONE (07:28)
[2024-06-12] MEDS ORDERED: fentaNYL citrate PF 100 MCG/2 ML VIAL ONE (07:28)
--- NOTE | 2024-06-12 07:42 | History & Physical Bridge Note ---
Date of Service June 12, 2024 History & Physical Bridge Note I have examined the patient, reviewed the History & Physical and in the interval since the performance of the History & Physical I have noted the following changes of clinical significance: no changes noted. OK for the I&D this AM upper right mucobuccal fold.
[2024-06-12] MEDS ORDERED: CLINDAMYCIN 900 MG/D5W 50 ML BAG IV ONE (07:49)
[2024-06-12] MEDS ORDERED: NALOXONE HCL 0.4 MG/1 ML VIAL/CARP IV PRN (07:49)
[2024-06-12] MEDS ORDERED: FLUMAZENIL 0.1 MG/1 ML 10 ML VIAL IV PRN (07:49)
[2024-06-12] MEDS ORDERED: HYDROmorphone INJ 1 MG/ML SYRINGE IV PRN (07:49)
[2024-06-12] MEDS ORDERED: ePHEDrine sulfate 50 MG/ML AMP IV PRN (07:49)
[2024-06-12] MEDS: CLINDAMYCIN/D5W 900 MG/50 ML BAG IV ONE (08:12)
[2024-06-12] MEDS ORDERED: PHENYLEPHRINE 100MCG/ML 5ML SYR ONE (08:25)
[2024-06-12] MEDS: CHLORHEXIDINE GLUCONATE 0.12% 480 ML MT ONE (08:31)
[2024-06-12] MEDS: BUPIVACAINE/EPINEPHRINE 0.5% 1:200,000 1.8 ML CARP ONE (08:36)
[2024-06-12] MEDS ORDERED: CHLORHEXIDINE GLUCONATE 0.12% 480 ML MT PRN (08:50)
--- NOTE | 2024-06-12 08:50 | Hospitalist Progress Note ---
Date of Service June 12, 2024 Assessment & Plan (1) Abscess, dental: Plan: Leisa is a 53F with a PMX of HSM, fatty liver disease, personality/schizoaffective disorder, iron deficiency anemia, GERD, IBS, anxiety, hypothyroidism, HTN, HLD, and asthma. She had a root canal had follow up on Friday06/09/24 with concerns for post operative infection and started on PO Keflex. Presented to the ED with worsening pain and swelling. #Dental Abscess CT scan showing posterior right upper molar apical dental abscess with adjacent 1cm soft tissue abscess. No Leukocytosis but WBC borderline 10.7k w/ LEFT SHIFT CRP mildly elevated. ED contact Dr. Bridges, NPO but then given clear liquids/NPO at midnight given OR for 06/[address] Bridges and placed on Clinda IV based on allergies Continue Clindamycin based on pt allergies WBC elevated 11.8k this morning but afebrile and will continue clinda for now. No hx MRSA but could swab if needed as did have recent inpatient stay s/p Right Facial Incision and Drainage(Right) - Grayson Bridges, DMD on 06/12 for infected right molar/abscess. --OR cx pending-- follow, adj abx as needed pending cxs. Continue Clinda IV Pain control/supportive care Labs in AM (2) Type 2 diabetes mellitus: Plan: A1c 5.4, well controlled Home metformin/Ozempic on hold. Sliding scale insulin inpatient ordered and BSGs acceptable. NO NEED for basal insulin Monitor (3) Schizoaffective disorder, depressive type: Plan: Mental health/schizophrenia - continue buspar, clonazepam, clozapine, haldol prn, lamictal, latuda, trazodone and Effexor afternoon clonazepam held from anesthesia effects but does take regularly and remains on MAR for now but can hold if needed Plan DVT proh: SCDs ordered, chemoproph deferred as for OR but if remaining inpatient past tomorrow will add Lovenox SQ in AM Dispo: continued inpatient stay on IV abx, f/u cx and possible dc next 24-48hrs pending response/cultures. Admission and Anticipated Discharge Date Admission Date: June 11, 2024 Supervising Physician Co-Signing Physician Notes The patient was not seen by me. The chart was reviewed. Case discussed with MINGO Barros. Agree with assessment and plan Subjective Eval this afternoon, back from OR. Reporting fatigue but feeling better/wondering about going home. Discussed holding klonopin for now, she does typically take twice daily. Will see if needing this evening if needing can continue. Discussed waiting for OR cultures to ensure on right abx. Pain controlled with ordered meds and reports got 2 tylenol most recently. Questions/concerns addressed at this time. Physical Exam 2 Physical Exam: General: 53yo female resting in bed post-op, on 2L NC supplemental, reports fatigue but pain better HEENT: swelling to R face w/ cellulitis, s/p I&D to uppr right molar, no stridor/drainage appreciated Resp: diminished in the bases without wheezing/rales, on 2L NC post-op CV: RRR, no significant m/r/g, no pitting edema MSK/Neuro: following commands as able, no slurred, answering questions appropriately Psych: AOx3, cooperative but fatigued post-op Results & Data Results & Data Vital Signs (Past 12 Hours) Vital Signs Temp Pulse Resp BP Pulse Ox O2 Del Method 06/12/24 08:09 36.9 C 88 16 132/83 96 Room Air 06/12/24 07:08 Room Air 06/11/24 21:04 36.9 C 86 19 103/67 92 Room Air Laboratory Results 06/12/24 10:22 06/12/24 10:22 Diagnostic Findings Soft Tissue Neck CT 06/11/24 09:17 CT soft tissue neck w con CLINICAL HISTORY: dental infection TECHNIQUE: Axial CT images of the neck after 90 cc Optiray IV. Sagittal and coronal reformats were obtained. DLP is 572. COMPARISON STUDY: 09/29/2023 FINDINGS: There is spray artifact from metallic dental hardware. Thyroid gland, submandibular glands, and parotid glands are unremarkable. There is swallowing artifact. Otherwise the visualized upper airway is patent. There is prominence and stranding of the right facial soft tissues consistent with cellulitis or edema. There is lucency adjacent to the roots of the posterior right upper molar consistent with apical dental abscess. No gross breakthrough into the maxillary sinus seen. There is a 1 cm oval lucency in the adjacent soft tissues consistent with tiny soft tissue abscess. There is mucosal thickening and small amount of fluid at the adjacent right maxillary sinus. No enlarged adenopathy seen. There are mild cervical spine degenerative changes. IMPRESSION: 1. Posterior right upper molar apical dental abscess. 2. Adjacent 1 cm soft tissue abscess. 3. Otherwise as described. ACT 112: Negative or not required by law. Electronically signed by: Daniel Stauffer M.D. 06/11/2024 10:20 AM Chest X-Ray 06/11/24 09:18 XR chest 1V portable HISTORY: 53 years-old Female Fever COMPARISON: 06/02/2024 TECHNIQUE: AP view of the chest FINDINGS: Cardiomediastinal and hilar silhouettes are within normal limits. No pneumothorax, pleural effusion, airspace consolidation or pulmonary edema. Bones appear grossly intact. Mild right-sided rotator cuff calcific tendinosis. IMPRESSION: No acute process. ACT 112: Negative or not required by law. The above report was generated using voice recognition software. It may contain grammatical, syntax or spelling errors. Electronically signed by: Omid Menjivar M.D. 06/11/2024 10:16 AM PG Care Time/CCT Total # of Minutes Spent Total Time Spent with Patient: Total time spent is greater than 50% in coordination of care (as documented) at patient's floor/unit and/or counseling patient: Coding Level of Care Code 88827 SUB INP/OBS CARE 3/50MIN Diagnoses Abscess, dental K04.7 Type 2 diabetes mellitus E11.9 Schizoaffective disorder, depressive type F25.1
--- NOTE | 2024-06-12 08:56 | Post Operative Brief Note ---
PG Immediate Post Op with CF Date of Surgery June 12, 2024 Pre & Post Diagnosis Operation Date: 06/12/24 07:00 Pre-Op Diagnosis: Cellulitis of face; Dental Abscess Post-Op Diagnosis: Cellulitis of face; Dental Abscess I identified the patient and participated in the time-out.: Yes Procedure Operation Date: 06/12/24 07:00 Actual Procedures p Right Facial Incision and Drainage(Right) - Grayson Bridges DMD Surgeon Grayson Bridges, HARRY [employer] Supervisor none Estimated Blood Loss 0 Findings Consistent with Post-Op Diagnosis infection right upper mucobuccal fold with infected papilloma Specimens Specimen Description: 1. Infected Right Mucobuccal Fold culture Anesthesia Type General Complications none Disposition Accompanied Patient To Recovery: Yes
[2024-06-12] MEDS: fentaNYL citrate PF 100 MCG/2 ML VIAL IV PRN (09:01)
--- NOTE | 2024-06-12 09:29 | Anesthesiology Progress Note ---
Date of Service June 12, 2024 Anesthesia Post Procedure Vital Signs Vital Signs: Temp Pulse Pulse Resp BP Pulse Ox O2 Del Method 06/12/24 09:20 36.5 C 85 17 113/70 94 Room Air 06/12/24 09:10 85 17 111/79 100 Oxymask 06/12/24 09:00 86 15 111/69 100 Oxymask 06/12/24 08:50 36.1 C L 85 14 106/66 96 Oxymask 06/12/24 08:09 36.9 C 88 16 132/83 96 Room Air 06/12/24 07:08 Room Air 06/11/24 21:04 36.9 C 86 19 103/67 92 Room Air 06/11/24 20:13 37.1 C 82 12 92/61 L 92 Room Air 06/11/24 19:20 Room Air 06/11/24 15:07 37.4 C 84 16 108/73 93 Room Air 06/11/24 12:20 36.9 C 104 H 16 107/70 94 Room Air 06/11/24 12:00 89 18 123/74 94 Room Air 06/11/24 11:09 93 H 18 124/77 97 O2 Flow Rate 06/12/24 09:20 06/12/24 09:10 5 06/12/24 09:00 10 06/12/24 08:50 10 06/12/24 08:09 06/12/24 07:08 06/11/24 21:04 06/11/24 20:13 06/11/24 19:20 06/11/24 15:07 06/11/24 12:20 06/11/24 12:00 06/11/24 11:09 Pain Intensity Right Face: Pain Intensity: 4 Transfer of Care Handoff Completed per policy Notes Mental Status: alert / awake / arousable Patient Amnestic to Procedure: Yes Nausea / Vomiting: adequately controlled Pain: adequately controlled Airway Patency, RR, SpO2: stable & adequate BP & HR: stable & adequate Hydration State: stable & adequate Anesthetic Complications: no major complications apparent
[2024-06-12] MEDS: VIBEGRON 75 MG TAB PO SCH (09:46)
[2024-06-12] MEDS: VENLAFAXINE HCL XR 150 MG CAPXR PO SCH (09:47)
[2024-06-12] MEDS: LOSARTAN POTASSIUM 50 MG TAB PO SCH (09:47)
[2024-06-12 10:40] LABS: Basophils # (auto) 0.01 K/uL (0.00-0.20); Basophils % (auto) 0.1 %; Hematocrit (blood only) 34.3 % (37.0-47.0); Hemoglobin 10.8 g/dl (12.0-16.0); Immature Granulocytes # (auto) 0.06 K/uL (0.01-0.20); Immature Granulocytes % (auto) 0.5 %; Lymphocytes # (auto) 1.28 K/uL (1.20-3.40); Lymphocytes % (auto) 10.8 %; Mean Corpuscular Hgb Conc 31.5 g/dL (32.0-36.0); Mean Corpuscular Volume 85.8 fL (80.0-100.0); Mean Platelet Volume 8.9 fL (9.4-12.4); Monocytes # (auto) 0.49 K/uL (0.11-0.59); Monocytes % (auto) 4.1 %; Neutrophils # (auto) 10.04 K/uL (1.40-6.50); Neutrophils % (auto) 84.5 %; Platelet Count 230 K/uL (130-400); RDW Coefficient of Variation 14.1 % (11.5-14.5); White Blood Count 11.88 K/ul (4.8-10.8)
[2024-06-12 10:42] LABS: Estimated Average Glucose 108 mg/dl; Hemoglobin A1C 5.4 % (4.5-5.6)
[2024-06-12 10:59] LABS: Albumin Globulin Ratio 1.5 (0.9-2); Albumin Level 3.7 gm/dl (3.4-5.0); BUN Creatinine Ratio 13.6 (10-20); Bilirubin,Total 0.4 mg/dl (0.2-1.0); Calcium 8.7 mg/dl (8.6-10.3); Creatinine Clr Calc Pharmacy 83.1 ml/min; Globulin 2.5 gm/dl (2.5-4.0); Total Protein 6.2 gm/dl (6.0-8.3)
[2024-06-12 11:13] LABS: Thyroid Stimulating Hormone 0.917 uIu/ml (0.300-4.500)
[2024-06-12] MEDS: cloZAPine 100 MG TAB PO SCH (11:17)
[2024-06-12] MEDS ORDERED: ALBUTEROL HFA 8 GM INHALER INH PRN (17:46)
[2024-06-13 05:53] LABS: Basophils # (auto) 0.01 K/uL (0.00-0.20); Basophils % (auto) 0.1 %; Hematocrit (blood only) 35.5 % (37.0-47.0); Hemoglobin 11.3 g/dl (12.0-16.0); Immature Granulocytes # (auto) 0.07 K/uL (0.01-0.20); Immature Granulocytes % (auto) 0.6 %; Lymphocytes # (auto) 2.29 K/uL (1.20-3.40); Lymphocytes % (auto) 20.6 %; Mean Corpuscular Hgb Conc 31.8 g/dL (32.0-36.0); Mean Corpuscular Volume 84.9 fL (80.0-100.0); Mean Platelet Volume 9.3 fL (9.4-12.4); Monocytes # (auto) 0.86 K/uL (0.11-0.59); Monocytes % (auto) 7.7 %; Neutrophils # (auto) 7.88 K/uL (1.40-6.50); Platelet Count 266 K/uL (130-400); RDW Coefficient of Variation 13.8 % (11.5-14.5); RDW Standard Deviation 42.7 fL (36.4-46.3); Red Blood Count 4.18 M/uL (4.20-5.40); White Blood Count 11.11 K/ul (4.8-10.8)
[2024-06-13 06:09] LABS: Albumin Globulin Ratio 1.4 (0.9-2); Albumin Level 3.9 gm/dl (3.4-5.0); BUN Creatinine Ratio 11.4 (10-20); Bilirubin,Total 0.4 mg/dl (0.2-1.0); Calcium 9.2 mg/dl (8.6-10.3); Creatinine Clr Calc Pharmacy 92.6 ml/min; Globulin 2.7 gm/dl (2.5-4.0); Magnesium 2.1 mg/dl (1.7-2.4); Total Protein 6.6 gm/dl (6.0-8.3)
--- NOTE | 2024-06-13 08:54 | Hospitalist Progress Note ---
Date of Service June 13, 2024 Assessment & Plan (1) Abscess, dental: Plan: Leisa is a 53F with a PMX of HSM, fatty liver disease, personality/schizoaffective disorder, iron deficiency anemia, GERD, IBS, anxiety, hypothyroidism, HTN, HLD, and asthma. She had a root canal had follow up on Friday06/09/24 with concerns for post operative infection and started on PO Keflex. Presented to the ED with worsening pain and swelling. #Dental Abscess CT scan showing posterior right upper molar apical dental abscess with adjacent 1cm soft tissue abscess. No Leukocytosis but WBC borderline 10.7k w/ LEFT SHIFT CRP mildly elevated. ED contact Dr. Bridges, NPO but then given clear liquids/NPO at midnight given OR for 06/[address] Bridges and placed on Clinda IV based on allergies Continue Clindamycin based on pt allergies WBC elevated 11.8k this morning but afebrile and will continue clinda for now. No hx MRSA but could swab if needed as did have recent inpatient stay s/p Right Facial Incision and Drainage(Right) - Grayson Bridges, DMD on 06/12 for infected right molar/abscess. --OR cx pending-- follow, adj abx as needed pending cxs. Continue Clinda IV Pain control/supportive care Labs in AM (2) Type 2 diabetes mellitus: Plan: A1c 5.4, well controlled Home metformin/Ozempic on hold. Sliding scale insulin inpatient ordered and BSGs acceptable. NO NEED for basal insulin Monitor (3) Schizoaffective disorder, depressive type: Plan: Mental health/schizophrenia - continue buspar, clonazepam, clozapine, haldol prn, lamictal, latuda, trazodone and Effexor afternoon clonazepam held from anesthesia effects but does take regularly and remains on JUL for now but can hold if needed Plan DVT proh: SCDs ordered, chemoproph deferred as for OR but if remaining inpatient past tomorrow will add Lovenox SQ in AM Dispo: continued inpatient stay on IV abx, f/u cx and possible dc next 24-48hrs pending response/cultures. Admission and Anticipated Discharge Date Admission Date: June 11, 2024 Results & Data Results & Data Vital Signs (Past 12 Hours) Vital Signs Temp Pulse Resp BP Pulse Ox O2 Del Method O2 Flow Rate 06/13/24 03:55 36.9 C 80 16 127/81 98 Nasal Cannula 2 06/12/24 23:57 36.4 C L 76 14 126/84 96 Room Air PG Care Time/CCT Total # of Minutes Spent Total Time Spent with Patient: Total time spent is greater than 50% in coordination of care (as documented) at patient's floor/unit and/or counseling patient: Coding Diagnoses Abscess, dental K04.7 Type 2 diabetes mellitus E11.9 Schizoaffective disorder, depressive type F25.1
--- NOTE | 2024-06-13 09:00 | Oral/Maxillofacial Progress Nt ---
Date of Service June 13, 2024 Assessment & Plan Admission and Anticipated Discharge Date Admission Date: June 11, 2024 Subjective Doing very well this morning OK for D/C Swelling almost gone, pain controlled, eating well. I reviewed home care and gave Leisa information regarding setting up a follow up with me in 7-10 days. Suggest Clindamycin for 5-7 days Results & Data Vital Signs (Past 12 Hours) Vital Signs Temp Pulse Resp BP Pulse Ox O2 Del Method O2 Flow Rate 06/13/24 03:55 36.9 C 80 16 127/81 98 Nasal Cannula 2 06/12/24 23:57 36.4 C L 76 14 126/84 96 Room Air PG Care Time/CCT Total # of Minutes Spent Total Time Spent with Patient: Total time spent is greater than 50% in coordination of care (as documented) at patient's floor/unit and/or counseling patient: Coding Level of Care Code None
--- NOTE | 2024-06-13 09:53 | Discharge Summary ---
Discharge Summary Date of Service June 13, 2024 Principal Dx & Hospital Course #1 = Principal Diagnosis (1) Abscess, dental: Leisa is a 53F with a PMX of HSM, fatty liver disease, personality/schizoaffective disorder, iron deficiency anemia, GERD, IBS, anxiety, hypothyroidism, HTN, HLD, and asthma. She had a root canal had follow up on Friday06/09/24 with concerns for post operative infection and started on PO Keflex. Presented to the ED with worsening pain and swelling. #Dental Abscess CT scan showing posterior right upper molar apical dental abscess with adjacent 1cm soft tissue abscess. WBC 10.7k w/ L shift, CRP elevation 17 Dr Bridges consulted, made NPO and given Clindamycin IV given her allergies WBC 11.18k prior to procedure on 06/12 but remained afebrile s/p Right Facial Incision and Drainage(Right) - Grayson Bridges, DMD on 06/12 for infected right molar/abscess. OR cx w/ moderate WBC, rate gram positive cocci on GS, culture/sensitivities pending at time of discharge While OR cx still pending, WBC 11.1k/around the same but no fever and significant improvement in erythema/swelling and reported improvement on Clindamycin and discussed with Dr Bridges and planned additoinal 5 days at [place] to complete the course. Number provided to contact office at [place]. Diet advanced to easy to chew and to continue ice/massage/heat and oral care at [place] with f/u Dr Bridges/dentist for further definitive tx on tooth Discussed to monitor on abx w/ clindamycin for cdiff (2) Type 2 diabetes mellitus: A1c 5.4, well controlled and on metformin/Ozempic at baseline which were held and placed on sliding scale Notable did have reports of dizziness AM 1/12 and +orthostatics/250cc bolus provided but notable BSG check to 66 this morning following 7u short acting for breakfast and given juice/improved to 100s Notable sliding scale ordered w/ correction factor 25 and carb ratio in patient without insulin use at baseline as well as carb ratio of 8 if inpatient again with reasonable blood sugars would highly rec only checking BSG AC/HS with CF 40-45 and would not include carb ratio unless having issues. (3) Schizoaffective disorder, depressive type: Mental health/schizophrenia - continue buspar, clonazepam, clozapine, haldol prn, lamictal, latuda, trazodone and Effexor Plan Discharged on Clindamycin PO, f/u Dr Bridges/dentist as well as PCP/Dr Villegas. Will forward dc summary to both. Notes For Next Care Provider Monitor for diarrhea on clindamycin Notable patient had some dizziness reported AM prior to dc but BSG low and was over treated with insulin with CF 25 and CR 8 with patient without insulin needs at baseline and if req hospitalization in future would rec to let admitting team aware to avoid carb ratio and opt for looser parameters to prevent hypoglycemia. Rec consideration for monitoring w/ Ana in f/u to ensure not having any lows at home on ozempic therapy Medication Changes From Visit Keflex dc'd Clindamycin PO x 5 more days - to monitor for any diarrhea Admission HPI Per Admitting Provider Leisa is a 53F with a PMX of HSM, fatty liver disease, personality/schizoaffective disorder, iron deficiency anemia, GERD, IBS, anxiety, hypothyroidism, HTN, HLD, asthma who presents with her aide to the ED via EMS for worsening tooth pain. Had a recent root canal (unsure of dentist name) had follow up on Friday06/09/24 with concerns for post operative infection. She was started on Keflex, which she has been taking and presented today with worsening pain and swelling. Reports mild subjective fevers and chills at home. No temperature measurements. Has been taking tylenol 450mg Q6 hours for pain. She denies associated symptoms including CP, SOB, N/v/d. Recent admission for asthma exacerbation which she reports has resolved. She took her medications this morning. She wishes to be a full code. ED Course Clindamycin 600mg IV x1 Admission Exam Per Admitting Provider General: NAD, lying in bed, pleasant, aide at bedside VS as above HEENT: visible swelling to right cheek impacting eye lid. Erythema to mout h/gums. Resp: normal respiratory effort, lungs clear to auscultation CV: RRR, no murmur, Abd: normal bowel sounds, non tender, no hepatosplenomegaly Extremities: Moves all extremities, Neuro: A&O x3, Skin: intact, no lesions noted Discharge Exam General: 53yo female sitting up in chair, much improved from day prior, NAD HEENT: significant improvement in swelling/erythema to R face, s/p drainage to R upper molar, no stridor, on room air, mmm Resp: CTA, slightly diminished in the bases but no wheezing/rales, on ROOM AIR CV: RRR, no significant m/r/g, no pitting edema MSK/Neuro: following commands as able, no slurred, answering questions appropriately Psych: AOx3, cooperative Discharge Plan Discharge Items Patient Disposition: Home - Self-Care Reason For Visit: TOOTH INFECTION Discharge Diagnosis: s/p infected papilloma and facial infection Goals: You have been hospitalized for an urgent problem which required surgery. During your stay at [facility], we have made an effort to correct the problem that brought you to the hospital while keeping you as comfortable as possible. Surgery and medications were used to bring your condition under control and your discharge instructions will include directions for any medications you should take after leaving the hospital. Please make sure to follow the advice of your surgeon regarding follow up with the surgeon and with your primary care provider. Activity: Resume your previous activity Lifting: Gradually increase as tolerated Bathing: No limitations Exercise/Sports: Gradually increase as tolerated Weightbearing: Full weightbearing Non-emergency contact: Surgeon Call non-emergency contact if: your temperature is above 101.5, your wound has increased redness, your wound has increased drainage and your wound pain has increased Follow-up/Referrals: Pro,Niles Pichardo MD [Primary Care Provider] - Grayson Bridges DMD [Physician] - Diet: Regular, Full liquid and Clear liquid Diet Texture: Easy to Chew Addtl Attending Provider Instructions: You have been hospitalized for infection to your tooth requiring drainage by Dr Bridges. You were given IV antibiotics and have had significant improvement and instructions from Dr Bridges as below and should call their office for follow up as discussed. Please continue easy to chew diet and continue oral hygeine and alert Dr Vincent office if any issues. Continue Clindamycin by mouth every six hours for another 5 days. Cultures from the OR are still pending but this is the same medication in the IV we have been giving you and you have had improvement on such and should be well covered at discharge. Please monitor for any increased diarrhea on this and alert your primary care provider if occurs. Please follow up with primary care and dental care at discharge as discussed. Please return to the ER with any increased swelling/pain/redness/fevers or any other symptoms concerning for you. It has been a pleasure being a part of the medical team providing for you while you have been in the hospital. Addtl Infrastructure Security Architect Provider Instructions: ADDITIONAL ACTIVITY RECOMMENDATIONS: * [place] teeth after every meal. It is very important to keep your mouth clean to prevent infection. * Starting tonight rinse with the Peridex as directed then 2 x a day * it is very important to keep well hydrated, this prevents fever and pain SPECIAL CARE INSTRUCTIONS: *It is not uncommon that between day 2-4 that your swelling will be at its worst this is very normal, do not be alarmed. * You may experience slight nausea. To prevent this, never take your medication on an empty stomach. If nauseated, take small sips of kriss adam until you feel better; then you may start on applesauce and toast. * Some swelling is common. It should gradually decrease within 4-5 days. * A certain amount of bleeding is to be expected. It is often possible to control mild oozing by placing folded gauze over the area and biting down for 30 minutes. If you are unable to control excessive bleeding, call Dr Bridges at [phone] * You may experience some discomfort for a few days. If pain or swelling increases, Call Dr Bridges * Return to the office for a follow up check up on: Call office for a follow up for Dr Bridges to see you 7-10 days from discharge * office address-- [employer] phone # [phone] Pending Studies at Discharge: Yes Studies:: OR cultures - culture pending Stand-Alone Forms: My [facility], Smoking Cessation Medications and DC Order Prescriptions: New clindamycin HCl 300 mg capsule 300 mg PO Q6H 5 Days Qty: 20 0RF Continued buspirone 10 mg tablet 20 mg PO TID (DME) lancing device with lancets [[employer] Delica Plus Lanc Dev] Kit See Rx Instructions .Route Qty: 1 0RF Rx Instructions: test once a day losartan [Cozaar] 50 mg tablet 50 mg PO QAM Qty: 90 3RF Rx Instructions: take in morning levothyroxine [Synthroid] 125 mcg tablet 125 mcg PO QAM Qty: 90 3RF ferrous sulfate 325 mg (65 mg iron) tablet,delayed release (DR/EC) 325 mg PO QAM Qty: 90 3RF cholecalciferol (vitamin D3) [Vitamin D3] 25 mcg (1,000 unit) capsule 25 mcg PO QAM Qty: 90 3RF (DME) lancets [OneTouch Delica Plus Lancet] 30 gauge misc See Rx Instructions .Route Qty: 100 3RF Rx Instructions: test QD and as needed metformin 500 mg tablet 1,000 mg PO BID Qty: 360 3RF (DME) OneTouch Ultra Test Strip See Rx Instructions .Route Qty: 100 3RF Rx Instructions: Test blood sugars daily. E11.9 ergocalciferol (vitamin D2) [Vitamin D2] 1,250 mcg (50,000 unit) capsule 50,000 unit PO MONTHLY Qty: 12 0RF Rx Instructions: TAKE ON 1ST DAY OF MONTH nystatin 100,000 unit/gram cream 1 applic topical BID Qty: 15 2RF mirabegron [Myrbetriq] 50 mg tablet extended release 24 hr 50 mg PO DAILY Qty: 30 11RF atorvastatin 40 mg tablet 40 mg PO HS 90 Days Qty: 90 3RF Rx Instructions: at bedtime Ozempic 1 mg/dose (4 mg/3 mL) pen injector 1 mg subcut Q7D Qty: 3 5RF Rx Instructions: Friday venlafaxine [Effexor XR] 150 mg capsule,extended release 24hr 300 mg PO QAM clozapine 50 mg tablet 200 mg PO QDL Rx Instructions: Take at noon clonazepam [Klonopin] 0.5 mg tablet 0.5 mg PO TID cyanocobalamin (vitamin B-12) 1,000 mcg capsule 2,000 mcg PO QAM clozapine [Clozaril] 100 mg tablet 300 mg PO HS lamotrigine [Lamictal] 100 mg tablet 200 mg PO HS Qty: 0 0RF haloperidol 1 mg tablet 3 mg PO BID PRN (Reason: hallucinations) 30 Days Qty: 90 1RF loperamide [Imodium A-D] 2 mg Tablet 2 mg PO DAILY PRN (Reason: Diarrhea) folic acid 400 mcg tablet 400 mcg PO QAM acetaminophen 500 mg Tablet 1,000 mg PO QID PRN (Reason: Pain) trazodone 150 mg tablet 150 mg PO HS PRN (Reason: Sleep) lurasidone [Latuda] 80 mg tablet 80 mg PO QPM Azo Cranberry 250 mg Tablet,Chewable 500 mg PO DAILY Jyoti Quercetin Phytosome 1 tab PO DAILY magnesium oxide 400 mg (241.3 mg magnesium) tablet 400 mg PO QAM estradiol [Estrace] 1 mg tablet 1 mg PO QAM montelukast [Singulair] 10 mg tablet 10 mg PO HS albuterol sulfate 90 mcg/actuation HFA aerosol inhaler 2 puff inhalation UD PRN (Reason: shortness of breath or wheezing) Rx Instructions: q4-6h Discontinued cephalexin 500 mg capsule 500 mg PO Q6H Rx Instructions: Start Date 06/09/24 x 7 day supply Discharge Orders: Discharge Order (Routine); Ordered 06/13/24 Ordered By: Nayana Álvarez/Other Patient Handouts: High Blood Sugar (Hyperglycemia), Hypoglycemia (Low Blood Sugar), Managing Type 2 Diabetes Admission Data Admit Date/Time: 06/11/24 10:59 Attending Provider: Stanislav Anderson Admit Provider: Nomi Ya Primary Care Provider: Niles Tam Other Providers: Nomi Ya; Grayson Bridges Other Interventions: Discharge Summary Assessment (RN) Last Done: 06/13/24 13:29 Hospital Stay Data Consultations 06/11/24 10:41 ED Decision to Admit Stat 06/11/24 10:53 Consult Oromaxillofacial Surgery Routine Procedures Performed Operation Date: 06/12/24 07:00 Actual Procedures p Right Facial Incision and Drainage(Right) - Grayson Bridges DMD Diagnostic Imagining Performed Soft Tissue Neck CT 06/11/24 09:17 CT soft tissue neck w con CLINICAL HISTORY: dental infection TECHNIQUE: Axial CT images of the neck after 90 cc Optiray IV. Sagittal and alma nal reformats were obtained. DLP is 572. COMPARISON STUDY: 09/29/2023 FINDINGS: There is spray artifact from metallic dental hardware. Thyroid gland, submandibular glands, and parotid glands are unremarkable. There is swallowing artifact. Otherwise the visualized upper airway is patent. There is prominence and stranding of the right facial soft tissues consistent with cellulitis or edema. There is lucency adjacent to the roots of the posterior right upper molar consistent with apical dental abscess. No gross breakthrough into the maxillary sinus seen. There is a 1 cm oval lucency in the adjacent soft tissues consistent with tiny soft tissue abscess. There is mucosal thickening and small amount of fluid at the adjacent right maxillary sinus. No enlarged adenopathy seen. There are mild cervical spine degenerative changes. IMPRESSION: 1. Posterior right upper molar apical dental abscess. 2. Adjacent 1 cm soft tissue abscess. 3. Otherwise as described. ACT 112: Negative or not required by law. Electronically signed by: Daniel Stauffer M.D. 06/11/2024 10:20 AM Chest X-Ray 06/11/24 09:18 XR chest 1V portable HISTORY: 53 years-old Female Fever COMPARISON: 06/02/2024 TECHNIQUE: AP view of the chest FINDINGS: Cardiomediastinal and hilar silhouettes are within normal limits. No pneumothorax, pleural effusion, airspace consolidation or pulmonary edema. Bones appear grossly intact. Mild right-sided rotator cuff calcific tendinosis. IMPRESSION: No acute process. ACT 112: Negative or not required by law. The above report was generated using voice recognition software. It may contain grammatical, syntax or spelling errors. Electronically signed by: Omid Menjivar M.D. 06/11/2024 10:16 AM Discharge Instructions Given to Patient (Per Discharging Provider) You have been hospitalized for infection to your tooth requiring drainage by Dr Bridges. You were given IV antibiotics and have had significant improvement and instructions from Dr Bridges as below and should call their office for follow up as discussed. Please continue easy to chew diet and continue oral hygeine and alert Dr Vincent office if any issues. Continue Clindamycin by mouth every six hours for another 5 days. Cultures from the OR are still pending but this is the same medication in the IV we have been giving you and you have had improvement on such and should be well covered at discharge. Please monitor for any increased diarrhea on this and alert your primary care provider if occurs. Please follow up with primary care and dental care at discharge as discussed. Please return to the ER with any increased swelling/pain/redness/fevers or any other symptoms concerning for you. It has been a pleasure being a part of the medical team providing for you while you have been in the hospital. Supervising Physician Co-Signing Physician Notes The patient was not seen by me. The chart was reviewed. Case discussed with MINGO Barros. Agree with assessment and plan Total Time Total Time Spent Total Time Spent (In Minutes): 40 Coding Level of Care Code 05534 INP/OBS DISCH >30 MIN Diagnoses Abscess, dental K04.7 Type 2 diabetes mellitus E11.9 Schizoaffective disorder, depressive type F25.1
[2024-06-13 11:15] VITALS: BP 125/78; RESP 18; TEMP 98.2
[2024-06-13] MEDS: CARBOHYDRATES FOR HYPOGLYCEMIA PO PRN (12:00)
[2024-06-13] MEDS: SODIUM CHLORIDE 0.9% 250 ML IV ONE (12:05)
[2024-06-13 13:31] VITALS: PULSE 87
[2024-06-13 15:15] VITALS: O2SAT 96
--- NOTE | 2024-06-13 19:29 | Operative Report ---
PG Post Operative Report Pre & Post Diagnosis Operation Date: 06/12/24 07:00 Pre-Op Diagnosis: Cellulitis of face; Dental Abscess Post-Op Diagnosis: Cellulitis of face; Dental Abscess I identified the patient and participated in the time-out.: Yes Procedure Operation Date: 06/12/24 07:00 Actual Procedures p Right Facial Incision and Drainage(Right) - Grayson Bridges, DMD Surgeon Grayson Bridges, DMD Range Conservationist none Estimated Blood Loss 0 Findings Consistent with Post-Op Diagnosis Specimens I&D and tissue from site Drains none Anesthesia Type General Complications none Disposition Accompanied Patient To Recovery: Yes Indications ICD 10 K12.2 , L03.211 CPT 21417 I & D of deep subcutaneous abscess of the inferior orbital and vestibular space of right maxilla Once cleared for surgery general anesthesia was achieved, the eyes were protected by the anesthesia dept criteria. A time out was take for patient ID, antibiotics, equipment and position verification once all agreed the procedure began. Local anesthesia using Marcaine with a vasoconstrictor ( 1.8 ml per site) given into left posterior maxilla A throat pack was placed after the oral cavity was irrigated with saline. Once a surgical level of anesthesia was obtained and the local anesthesia was given time for the blocks the surgery was started. I turned my attention to the infection which was located in the in the right cheek,left vestibule, right tuberosity area, Infraorbital fossa area CT scan report-- rim-enhancing left facial fluid collection along the lateral aspect of the left maxilla. This favors a small abscess. This is odontogenic associated with teeth 13 and 14 Once cleared for surgery general anesthesia was achieved, the eyes were protected by the anesthesia dept criteria. A time out was take for patient ID, antibiotics, equipment and position verification once all agreed the procedure began. Local anesthesia using Marcaine with a vasoconstrictor ( 1.8 ml per site) given into left posterior maxilla A throat pack was placed after the oral cavity was irrigated with saline. Once a surgical level of anesthesia was obtained and the local anesthesia was given time for the blocks the surgery was started. I turned my attention to the infection which was located in the in the left cheek,left vestibule, left tuberosity area, Infraorbital fossa area CT scan report-- rim-enhancing left facial fluid collection along the lateral aspect of the left maxilla. This favors a small abscess. This is odontogenic associated with teeth 13 and 14 Incision and Drainage-upper Right mucobuccal fold Using a 15 blade an incision was made in the posterior aspect of the vestibular area upper left side. Once the incision was made a lot of pus extruded from the site. A curved hemostat was carefully placed superior into the infected space to drain the infraorbital space. To gain access to the pocket of pus in the cheek another incision was made in the vestibule. This allowed further drainage to escape. I palpated the face and cheek area and no further drainage was expressed. The area was irrigated with at least 100 ml of NS solution. A wide opening in to the infraorbital space was not achieved. I inspected the sites to insure all bleeding was controlled. I removed the throat pack and suctioned the throat. A large gauze pressure dressing was placed. All instrument and sponge count was correct. The patient was allowed to awake from the anesthesia. Once full awake the anesthesia tube was removed and the patient was taken to the recovery room with all vital sign stable. The patient tolerated the surgery very well. I will follow the patient in my office, Rx and instructions will be given upon discharge. Description of Procedure ICD 10 K12.2 , L03.211 CPT 25931 I & D of deep subcutaneous abscess of the inferior orbital and vestibular space of right maxilla Once cleared for surgery general anesthesia was achieved, the eyes were protected by the anesthesia dept criteria. A time out was take for patient ID, antibiotics, equipment and position verification once all agreed the procedure began. Local anesthesia using Marcaine with a vasoconstrictor ( 1.8 ml per site) given into right posterior maxilla A throat pack was placed after the oral cavity was irrigated with saline. Once a surgical level of anesthesia was obtained and the local anesthesia was gi nikita time for the blocks the surgery was started. I turned my attention to the infection which was located in the in the right cheek,right vestibule, right tuberosity area, Right Infraorbital fossa area CT scan report-- rim-enhancing right facial fluid collection along the lateral aspect of the right maxilla. This favors a small abscess. This is odontogenic associated with teeth 13 and 14 Once cleared for surgery general anesthesia was achieved, the eyes were protected by the anesthesia dept criteria. A time out was take for patient ID, antibiotics, equipment and position verification once all agreed the procedure began. Local anesthesia using Marcaine with a vasoconstrictor ( 1.8 ml per site) given into left posterior maxilla A throat pack was placed after the oral cavity was irrigated with saline. Once a surgical level of anesthesia was obtained and the local anesthesia was given time for the blocks the surgery was started. I turned my attention to the infection which was located in the in the left cheek,left vestibule, left tuberosity I turned my attention to the infection which was located in the in the right cheek,left vestibule, right tuberosity area, Infraorbital fossa area CT scan report-- rim-enhancing left facial fluid collection along the lateral aspect of the left maxilla. This favors a small abscess. This is odontogenic ass ociated with teeth 13 and 14 Incision and Drainage-upper Right mucobuccal fold Using a 15 blade an incision was made in the posterior aspect of the vestibular area upper right side. Once the incision was made a lot of pus extruded from the site. A curved hemostat was carefully placed superior into the infected space to drain the infraorbital space. To gain access to the pocket of pus in the cheek another incision was made in the vestibule. This allowed further drainage to escape. I palpated the face and cheek area and no further drainage was expressed. The area was irrigated with at least 100 ml of NS solution. A wide opening in to the infraorbital space was now achieved. I inspected the sites to insure all bleeding was controlled. I removed the throat pack and suctioned the throat. A large gauze pressure dressing was placed. All instrument and sponge count was correct. The patient was allowed to awake from the anesthesia. Once full awake the anesthesia tube was removed and the patient was taken to the recovery room with all vital sign stable. The patient tolerated the surgery very well. I will follow the patient in my office, Rx and instructions will be given upon discharge. I attest to the content of the Intraoperative Record and any orders documented therein. Any exceptions are noted below.
== END 2024-06-13 14:29 | disposition home or self-care (01) ==
LOC: 3W 09:07 → ED 09:07 → SUATTDRO 10:59 → 3W 12:14